=== PATIENT | female | born 1945 | race Caucasian/White ===

== ENCOUNTER 2020-05-13 06:45 | Day surgery (SDC) | payer OTHER, MEDICARE ==
[2020-05-08 13:48] LABS: Absolute Lymphocytes (CBC) 1.4 K/uL (0.7-4.9); Basophils % 0.9 % (0-1.3); Hematocrit 37.8 % (36.0-45.0); Lymphocytes % 17.8 % (15.3-44.8); MPV 8.7 fL (7.6-11.3); RBC Red Blood Cell Count 4.45 M/uL (3.86-4.86)
[2020-05-08 13:53] LABS: Protime INR 0.89
--- NOTE | 2020-05-08 13:54 | RAD REPORT ---
EXAM DESCRIPTION: RAD - Chest Pa And Lat (2 Views) - 05/08/2020 1:44 pm CLINICAL HISTORY: PRE OP Chest pain. COMPARISON: CHEST PA AND LAT 2 VIEW dated 08/02/2006 FINDINGS: The lungs are clear. The heart is upper limit of normal in size. No displaced fractures. IMPRESSION: No acute or concerning finding suspected.
--- NOTE | 2020-05-10 07:55 | EKG ---
Test Date: 2020-05-08 Test Time: 13:16:15 Cake Batter Mixer: KATELIN MEASUREMENT RESULTS: Intervals: Rate: 48 AR: 204 QRSD: 94 QT: 436 QTc: 389 [place]: P: 81 AR: 204 QRS: 41 T: 80 INTERPRETIVE STATEMENTS: Marked sinus bradycardia ST abnormality, possible digitalis effect Abnormal ECG Compared to ECG 12/15/2014 10:02:59 No significant changes Electronically Signed On 05-10-20 07:53:19 CLINICAL RESEARCH MANAGER by Stefan May
[2020-05-13] MEDS ORDERED: LIDOCAINE 1% 20 ML MDV ONE (07:05)
[2020-05-13] MEDS ORDERED: HEPA 1000U/500MLS 1,000 UNIT/500 ML BAG IV ONE (07:05)
[2020-05-13] MEDS ORDERED: NA CHLORIDE 0.9% 500 ML ONE (07:07)
[2020-05-13] MEDS ORDERED: ATROPINE SULF 1 MG/10 ML SYR IV ONE (07:43)
[2020-05-13] MEDS ORDERED: MIDAZOLAM HCL 2 MG/2 ML INJ ONE ×2 (07:43→07:59)
[2020-05-13] MEDS ORDERED: FENTANYL CITR 100 MCG/2 ML ONE (07:43)
[2020-05-13 08:50] VITALS: TEMP 97
[2020-05-13] MEDS ORDERED: ACETAMINOPHEN 325 MG TABLET ONE (09:26)
[2020-05-13 09:48] VITALS: O2SAT 100
[2020-05-13 10:42] VITALS: BP 144/62
--- NOTE | 2020-05-13 10:49 | OP ---
Surgeon: Stefan May MD Professor Of Languages: Mr. Galo. The patient will go home after 2 hours. I will make an appointment for her with [facility] in [place] at [facility] for an endarterectomy. She will have a film with her. Reason For Admission: Cerebrovascular disease with the plan to have bilateral selective carotid davin ogram. She had abnormal carotid Doppler. Description Of Procedure: The patient was brought to the tender labor today as an outpatient, prepped an d draped in the routine sterile fashion. Given Versed for sedation as well as fentanyl. While she w as being prepped, she developed substernal chest pressure radiating to the back with some shortness o f breath, so we decided to add left heart catheterization with selective coronary arteriogram to the procedure. A 6-Kiswahili sheath was introduced in the right common femoral artery successfully using the Seldinger technique and 10 cc of Xylocaine. A JR4 catheter was used to select the right common carotid artery first and then the left common carotid artery. Both common carotids were normal. Both external dickson tid artery were normal. She had a 90% stenosis in the right internal carotid artery. The left inter nal carotid artery was normal. Coronary angiography was done with a JR4 of the right coronary artery , which was normal. Following that, a JL4 catheter was introduced into the left main. Angiography t here was also normal. The patient tolerated the procedure well. There were no complications. Blood Loss: 5 cc. Final Diagnoses: Normal coronaries with chest pain and severe right internal carotid artery stenosis . Plan: For a right carotid endarterectomy. Angio-Seal was used to close the case. The patient will be at bedrest for 2 hours. Anesthesia: Total conscious sedation was 45 minutes. ALKA/NEDRAL Voice ID: [id number] Report ID: [id number]
== END 2020-05-13 10:15 | disposition home or self-care (01) ==
LOC: CCL 06:45
DX: I65.21 Occlusion and stenosis of right carotid artery (principal); R07.9 Chest pain, unspecified; Z20.822 Contact with and (suspected) exposure to COVID-19; I10 Essential (primary) hypertension; Z87.891 Personal history of nicotine dependence; E78.2 Mixed hyperlipidemia; I70.212 Atherosclerosis of native arteries of extremities with intermittent claudication, left leg; I49.3 Ventricular premature depolarization; K21.9 Gastro-esophageal reflux disease without esophagitis
CPT/HCPCS: 93005; 85025; 80048; 36415; 85610; 82947; 85730; 71046; 93454; 36222; U0002; C1893; J2250 ×2; J3010; J7040; J1644

== ENCOUNTER 2022-08-30 08:43 | Emergency (ER) | payer OTHER, MEDICARE ==
--- OUTSIDE RECORDS SUMMARY | 2022-08-30 08:55 | XMS REPORT | Continuity of Care Document ---
:1945 Author Organization [facility] t Address [address] [place] [address] Care Team Providers Name Role Phone Jose A García MD Primary Care Physician RASHI LAKHANI Attending Clinician Unavailable RITIKA ALAN Attending Clinician Unavailable Jose A García MD Attending Clinician JOSE A GARCÍA Attending Clinician Unavailable Doctor Unassigned, [place] Attending Clinician Unavailable LORY RUBIO Attending Clinician Unavailable Lory Rubio DO Attending Clinician FOG_Halamicek_Mar_NP Attending Clinician Unavailable JADEN DOW Attending Clinician Unavailable Yenny Smith Attending Clinician Unavailable Steffi Whittaker PA-C Attending Clinician Unknown, Attending Attending Clinician Unavailable STEFFI WHITTAKER Attending Clinician Unavailable Donna HEAD KILN OPERATOR, Mayra Attending Clinician Lab, Ang - Db Attending Clinician Unavailable Jaden Dow MD Attending Clinician Nurse, Louie Db Attending Clinician Unavailable Sylvie Correa MA Attending Clinician Unavailable Sharyn Nam MA Attending Clinician Unavailable NERY BONILLA Attending Clinician Unavailable Nery Wlash Attending Clinician Pob, Adc Lab Main Attending Clinician Unavailable Mckayla TINEO, Paris Allen Attending Clinician PARIS FRANCO Attending Clinician Unavailable Adriana TINEO, Yenny Attending Clinician YENNY WRIGHT Attending Clinician Unavailable Vaccine, Ang Db Cbc Fam Attending Clinician Unavailable Troy WASHINGTON, Suzi Attending Clinician Unavailable Zay LAY OUT WORKER, Nyasia Reed Attending Clinician Leatha TINEO, Talon Attending Clinician Camron TINEO, Colin Childers Attending Clinician Anum TINEO, Fatemeh Fernández Attending Clinician Only, Adc Test Attending Clinician Unavailable Javier Patiño MD Attending Clinician Juan Ashton Attending Clinician Unavailable Bj WASHINGTON, Alessandra Shepherd Attending Clinician Unavailable WOLFGANG POWELL Attending Clinician Unavailable Provider, [facility] Attending Clinician Unavailable Price SCHREIBERP, Adeline Kohler Attending Clinician Donny Velasquez DO Attending Clinician Eh WASHINGTON, Evette Attending Clinician Kar TINEO, Rashi Oliveira Attending Clinician [phone] Scooter TINEO, Kirby Attending Clinician Jony TINEO, Tigist Guevara Attending Clinician Nurse, Adc Fam Pob I Attending Clinician Unavailable Ariel SCHREIBERP, Wolfgang Attending Clinician Deepthi Chappell Attending Clinician DEEPTHI HARDY Attending Clinician Unavailable Bridgett WASHINGTON, Ciera Attending Clinician KIRBY NASH Attending Clinician Unavailable Gurjit Perez MD Attending Clinician Kirby Nash MD Attending Clinician RASHI LAKHANI Admitting Clinician Unavailable LORY RUBIO Admitting Clinician Unavailable JADEN DOW Admitting Clinician Unavailable FOG_[place]_Mar_NP Admitting Clinician Unavailable Yenny Smith Admitting Clinician Unavailable Talon Zhang MD Admitting Clinician JOSE A GARCÍA Admitting Clinician Unavailable Physician, No Primary or Family Admitting Clinician Unavaila ble KNOW, DOES_NOT Admitting Clinician Unavailable KIRBY NASH Admitting Clinician Unavailable Saad TINEO, Kirby Admitting Clinician Payers Payer Name Policy Type Policy Number Effective Date Expiration Source Date MEDICARE PART A \\T\\ B [id number] 2012 00:00:00 [facility] [id number] 2014 MEDICARE SUPPLEMENT 00:00:00 [place] [id number] 2012 [place] SOLUTIONS 00:00:00 [facility] [id number] 2021 OPTIONS (MEDICARE 00:00:00 SUPPLEMENT) [facility] - [id number] 2021 OPTIONS 00:00:00 MEDICAREMEDICARE A [id number] JOSE DANIEL wild [id number] 2012- 00:00:00 [facility] [id number] [address] SUPPLEMENT/INDIVIDUAL 00[facility]00:00 [id number] [facility] Condition Condition Condition Status Onset Resolution Last Treating Co mments Source Name Details Category Date Date Treatment Clinician Date Lumbar Lumbar Problem Active 2021-03 [facility] spondylosi Spondylosi 1-14 Or thope s s 00:00: dic 00 Sports Medicin e Lumbosacra Lumbosacra Problem Active A zalea l l 2-08 Orthope spondylosi Spondylosi 00:00: di c s without s without 00 Spor ts myelopathy Myelopathy Me dicin e Intestinal Intestinal Disease Active 2020-03 U nivers bleeding bleeding 0-21 ity of 00:00: [place] [facility] Lower GI Lower GI Disease Active 2020-03 Unive rs bleed bleed 0-20 ity of 00:00: [place] 00 Medical Branch Synovitis/ Synovitis/ Problem Active A alexander tenosynovi tenosynovi 7 Or thope tis - hip tis - Hip 00:00: dic 00 Sports Medicin e Carotid Carotid Disease Active [facility] artery artery 712 [place] occlusion occlusion [place] Chronic Chronic Disease Active [facility] kidney kidney 712 ity of disease disease 00:00: [place] (CKD), (CKD), 00 Medical stage II stage II Branch (mild) (mild) Osteoarthr Osteoarthr Disease Active U nivers osis osis 7-12 ity of 00:00: [place] [facility] Family Family Disease Active Univers history of history of 712 it y of osteoporos osteoporos [place] Knee joint Knee Joint Problem Active A alexander ankylosis Ankylosis 6-22 Orth ope 00:00: dic 00 Sports Medicin e Stenosis Stenosis Disease Active Unive rs of right of right 3-01 ity of carotid carotid 00:00: [place] artery artery 00 Medical Branch Carotid Carotid Disease Active [facility] 00 Center Degenerati Degenerati Problem Active Bozena munoz on of on of 1-11 Orthope lumbar Lumbar 00:00: dic interverte Interverte 00 Sp orts bral disc bral Disc Medi raghu e Psychosoci Psychosoci Problem Active 2019-03 A alexander al al 0-12 Orthope dysfunctio Dysfunctio 00:00: di c n due to n Due to 00 Sports chronic Chronic Medicin pain Pain e Diarrhea Diarrhea Disease Active Unive rs 3-09 ity of 00:00: [place] 00 Medical Branch Dehydratio Dehydratio Disease Active U nivers n n 3-09 ity of 00:00: [place] 00 Medical Branch History of History of Disease Active U nivers arterial arterial 3-09 ity of ischemic ischemic 00:00: [place] stroke stroke 00 Medical Branch CHERYL (acute CHERYL (acute Disease Active U nivers kidney kidney 3-09 ity of injury) injury) 00:00: [place] 00 Medical Branch Syncope Syncope Disease Active Univers 3-08 ity of 00:00: [place] 00 Medical Branch 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 9-24 Orthope 00:00: dic 00 Sports Medicin e Spinal Spinal Problem Active Pretty stenosis Stenosis 9-03 Orthop e of lumbar of Lumbar 00:00: dic region Region 00 Sports Medicin e Lumbar Lumbar Problem Active Pretty disc Disc 8-15 Orthope prolapse Prolapse 00:00: dic with with 00 Sports radiculopa Radiculopa Me dicin thy thy e 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 00:00: dic syndrome Syndrome 00 Sports Medicin e Knee joint Knee Joint Problem Active A zalea effusion Effusion 4-11 Orthop e 00:00: dic 00 Sports Medicin e Acute Acute Problem Active Pretty postoperat Postoperat 3-14 Or thope donaldo pain donaldo Pain 00:00: dic 00 Sports Medicin e Replacemen Replacemen Problem Active A zalea t of total t of Total 3-14 Or thope knee joint Knee Joint 00:00: di c 00 Sports Medicin e Patellofem Patellofem Problem Active A zalea oral oral 2-05 Orthope osteoarthr Osteoarthr 00:00: di c itis itis 00 Sports Medicin e Knee pain Knee Pain Problem Active 2017-03 Aza bonnie 2-12 Orthope 00:00: dic 00 Sports Medicin e Right knee Right knee Disease Active U nivers pain pain 8-17 ity of 00:00: [place] 00 Medical Branch Right knee Right knee Disease Active U nivers pain pain 8-17 ity of 00:00: [place] 00 Medical Branch Thumb Thumb Disease Active Univers pain, pain, 8-17 ity of right right 00:00: [place] 00 Medical Branch 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 2-25 it y of asthma asthma 00:00: [place] without without 00 Medical complicati complicati Br anch on on Essential Essential Disease Active 2014-03 Uni vers hypertensi hypertensi 0-08 it y of on on 00:00: [place] 00 Medical Branch Hyperlipid Hyperlipid Disease Active 2014-03 U nivers emia with emia with 0-08 ity of target LDL target LDL 00:00[place] less than less than 00 Medi melita 100 100 Branch Colitis Colitis Disease Active 2014-03 Univers 0-08 ity of 00:00: [place] 00 Medical Branch Plantar Plantar Problem Active Pretty nerve Nerve 8-14 Orthope lesion Lesion 00:00: dic 00 Sports Medicin e Keratoma Keratoma Problem Active Azale a 8-14 Orthope 00:00: dic 00 Sports Medicin e Procedure Procedure Problem Active 2010-03 Aza bonnie aiding Aiding 07 Orthope diagnosis Diagnosis 00:00: dic 00 Sports Medicin e Arthritis Arthritis Problem Active 2010-03 Aza bonnie of facet of Facet 04-02 Orthop e joint of Joint of 00:00: dic cervical Cervical 00 Sports spine Spine Medicin e Radiculiti Radiculiti Problem Active 2010-03 Bozena munoz s due to s Due to 07 Orthop e displaceme Displaceme 00:00: di c nt of nt of 00 Sports interverte Interverte Me dicin bral disc bral Disc e Myofascial Myofascial Problem Active 2010-03 Bozena munoz low back Low Back 1-07 Orthop e pain Pain 00:00: dic 00 Sports Medicin e Allergies, Adverse Reactions, Alerts Allergy Allergy Status Severity Reaction(s) Onset Inactive Treating Comm ents Source Name Type Date Date Clinician Penicill DA Active MO BREATHING 2021-03 [facility] ISSUES, 0- [place] TONGUE 00:00: [facility] SWELLING 00 [facility] Penicill DA Active MO BREATHING [facility] ISSUES, 2 [place] TONGUE 00:00: Orthope SWELLING 00 dic Hospita l Penicill DA Active MO BREATHING [facility] ins ISSUES, 04-20 [place] TONGUE 00:00: Orthope SWELLING 00 dic Hospita l Penicill DA Active MO BREATHING [facility] ins ISSUES, 8- [place] TONGUE 00:00: Orthope SWELLING 00 dic Hospita l Penicill DA Active MO BREATHING 2020- [facility] ins ISSUES, 1- [place] TONGUE 00:00: Orthope SWELLING 00 dic Hospita l Penicill DA Active MO BREATHING [facility] ins ISSUES, 07-31 [place] TONGUE 00:00: Orthope SWELLING 00 dic Hospita l Penicill DA Active MO BREATHING [facility] ins ISSUES, 07-30 [place] TONGUE 00:00: Orthope SWELLING 00 dic Hospita l Penicill DA Active MO SWELLING,NAMRATA 2018- HC [facility] ins H, [place] 0-09 [place] 00:[place] [facility] 00 dic [facility]ita [facility] Penicill DA Active MO 2019- [facility] ins 0-08 [place] 00:00: Orthope 00 dic Hospita l Penicill DA Active MO 2019-0 [facility] ins 9-03 [place] 00:00: Orthope 00 dic Hospita l Penicill DA Active MO 2019-0 [facility] ins 3-04 [place] 00:00: Orthope 00 dic Hospita l Penicill DA Active MO 2019-0 [facility] ins 2-12 [facility] [place] Penicill DA Active MO 2018-0 [facility] ins 9-13 [place] 00:00: Orthope 00 dic Hospita l Penicill DA Active MO 2018-0 [facility] ins 9-12 [place] 00:00: Orthope 00 dic Hospita l Penicill DA Active MO 2018-0 [facility] ins 4-20 [place] 00:00: Orthope 00 dic Hospita l codeine DA Active CT 2018-0 [facility] 4-20 [place] 00:00: Orthope 00 dic Hospita l PENICILL Drug Active High Swelling 2014-03 Univer s INS Class 0-08 ity of 00:00: [place] 00 Medical Branch Penicill Propensi Active Swelling 2014-03 Univ ers ins ty to 0-08 ity of adverse 00:00: [place] reaction 00 Medical s Branch Penicill Propensi Active Swelling 2014-03 Univ ers ins ty to 0-08 ity of adverse 00:00: [place] reaction 00 Medical s Branch Penicill Propensi Active Swelling 2014-03 Univ ers ins ty to 0-08 ity of adverse 00:00: [place] reaction 00 Medical s Branch Penicill Drug Active Swelling 2014-[address] [facility] PENICILL Allergy Active High Swelling 2014-03 [facility] Center PENICILL Allergy Active 2012-03 Pretty IN to 1-07 Orthope substanc 00:00: dic e 00 Sports Medicin e PENICILL Allergy Active 2012-03 Pretty INS to 0-15 Orthope substanc 00:00: dic e 00 Sports Medicin e Family History Family Member Diagnosis Comments Start Date Stop Date Source Natural father Heart disease [facility] Natural father Stroke [facility] Natural mother Cancer [facility] Natural mother Diabetes [facility] Natural sister Diabetes [facility] Natural sister Hypertension [facility] Social History Social Habit Start Date Stop Date Quantity Comments Source History SDOH [facility] Std [facility] Drinks History SDOH [facility] Alcohol Binge Medical [address] [facility] History SDOH [facility] Alcohol Comment Medical C enter Exposure to 2022-06-04 2022-06-14 [facility]00 [facility] (event) Branch Alcohol intake 2022-04-05 2022-04-05 Current [facility] 00:00:00 00:00:00 non-drinker of [facility] [place] [facility] alcohol (finding) Branch History SDOH 2020-05-19 2020-05-[address] [facility] Alcohol Frequency 00:00:00 00:00:00 [facility] Tobacco use and 2015-11-11 2015-11-11 Smokeless tobacco Un iversity of exposure 00:00:00 00:00:00 non-user [facility] [place] [facility] Sex [birth year] Universit y of 00:00:00 00:00:00 [facility] [place] [facility] Smoking Status Start Date Stop Date Source Never smoked tobacco [facility] Medications Ordered Filled Start Stop Current Ordering Indication Dosage Frequency Signature Comments Components Source Medication Medication Date Date Medication? Clinician (SIG) Name Name HYDROcodone 2022- No 1{tbl} 1 tablet, Univers -acetaminop 03-30 Oral, ity of hen (NORCO 20:45: 20:44 ONCE, 1 Julián as 5) 5-325 mg 00 :00 dose, On Medi melita tablet 1 Mon03/30/22 Branc h tablet at 1445, BLANCA acetaminoph Yes 4647 1{tbl} Take 1 Un marlen en-codeine 1-04 tablet by ity of (TYLENOL-CO 00:00: mouth [place] DEINE #3) 00 every 4 Medical 300-30 mg (four) Branch tablet hours as needed for Pain (scale 1-3). Indication s: acute pain acetaminoph 2023-0 Yes 4647 1{tbl} Take 1 Un marlen en-codeine 1-04 tablet by ity of (TYLENOL-CO 00:00: mouth [place] DEINE #3) 00 every 4 Medical 300-30 mg (four) Branch tablet hours as needed for Pain (scale 1-3). Indication s: acute pain acetaminoph 2023-0 Yes 4647 1{tbl} Take 1 Un marlen en-codeine 1-04 tablet by ity of (TYLENOL-CO 00:00: mouth [place] DEINE #3) 00 every 4 Medical 300-30 mg (four) Branch tablet hours as needed for Pain (scale 1-3). Indication s: acute pain acetaminoph 2023-0 Yes 4647 1{tbl} Take 1 Un marlen en-codeine 1-04 tablet by ity of (TYLENOL-CO 00:00: mouth [place] DEINE #3) 00 every 4 Medical 300-30 mg (four) Branch tablet hours as needed for Pain (scale 1-3). Indication s: acute pain acetaminoph 2023-0 Yes 4647 1{tbl} Take 1 Un marlen en-codeine 1-04 tablet by ity of (TYLENOL-CO 00:00: mouth [place] DEINE #3) 00 every 4 Medical 300-30 mg (four) Branch tablet hours as needed for Pain (scale 1-3). Indication s: acute pain acetaminoph 2023-0 Yes 4647 1{tbl} Take 1 Un marlen en-codeine 1-04 tablet by ity of (TYLENOL-CO 00:00: mouth [place] DEINE #3) 00 every 4 Medical 300-30 mg (four) Branch tablet hours as needed for Pain (scale 1-3). Indication s: acute pain acetaminoph 2023-0 Yes 4647 1{tbl} Take 1 Un marlen en-codeine 1-04 tablet by ity of (TYLENOL-CO 00:00: mouth [place] DEINE #3) 00 every 4 Medical 300-30 mg (four) Branch tablet hours as needed for Pain (scale 1-3). Indication s: acute pain acetaminoph 3-0 Yes 4647 1{tbl} Take 1 Un marlen en-codeine 1-04 tablet by ity of (TYLENOL-CO 00:00: mouth [place] DEINE #3) 00 every 4 Medical 300-30 mg (four) Branch tablet hours as needed for Pain (scale 1-3). Indication s: acute pain acetaminoph 3-0 Yes 4647 1{tbl} Take 1 Un marlen en-codeine 1-04 tablet by ity of (TYLENOL-CO 00:00: mouth [place] DEINE #3) 00 every 4 Medical 300-30 mg (four) Branch tablet hours as needed for Pain (scale 1-3). Indication s: acute pain cetirizine 2021-03 Yes [id number] 5mg Take 1 Univers 5 mg tablet 1-09 tablet by ity of 00:00: mouth in [place] the Medical morning. Branch cetirizine 2021-03 Yes [id number] 5mg Take 1 Univers 5 mg tablet 1-09 tablet by ity of 00:00: mouth in [place] the Medical morning. Branch cetirizine 2021-03 Yes [id number] 5mg Take 1 Univers 5 mg tablet 1-09 tablet by ity of 00:00: mouth in [place] the Medical morning. Branch cetirizine 2021-03 Yes [id number] 5mg Take 1 Univers 5 mg tablet 1-09 tablet by ity of 00:00: mouth in [place] the Medical morning. Branch cetirizine 2021-03 Yes [id number] 5mg Take 1 Univers 5 mg tablet 1-09 tablet by ity of 00:00: mouth in [place] the Medical morning. Branch cetirizine 2021-03 Yes [id number] 5mg Take 1 Univers 5 mg tablet 1-09 tablet by ity of 00:00: mouth in [place] the morning. Branch cetirizine 2021-03 Yes [id number] 5mg Take 1 Univers 5 mg tablet 1-09 tablet by ity of 00:00: mouth in [place] the Medical morning. Branch cetirizine 2021-03 Yes [id number] 5mg Take 1 Univers 5 mg tablet 1-09 tablet by ity of 00:00: mouth in [place] 00 the Medical morning. Branch cetirizine 2021-03 Yes [id number] 5mg Take 1 Univers 5 mg tablet 1-09 tablet by ity of 00:00: mouth in [place] 00 the Medical morning. Branch cetirizine 2021-03 Yes [id number] 5mg Take 1 Univers 5 mg tablet 1-09 tablet by ity of 00:00: mouth in [place] 00 the Medical morning. Branch cetirizine 2021-03 Yes [id number] 5mg Take 1 Univers 5 mg tablet 1-09 tablet by ity of 00:00: mouth in [place] 00 the Medical morning. [place] cetirizine 2021-03 Yes [id number] 5mg Take 1 Univers 5 mg tablet 1-09 tablet by ity of 00:00: mouth in [place] the Medical morning. [place] nystatin 2021-03- No [id number] Take 10 mL Univers 100,000 1-07 11-18 U by mouth 4 ity o f unit/mL 00:00: 05:59 (four) [place] suspension 00 :00 times Medical daily for Branch 10 days. Swish and swallow or swish and spit. nystatin 2021-03- No [id number] Take 10 mL Univers 100,000 1-07 11-18 U by mouth 4 ity o f unit/mL 00:00: 05:59 (four) [place] suspension 00 :00 times Medical daily for Branch 10 days. Swish and swallow or swish and spit. amLODIPine 2021-03 Yes [id number] 5mg Take 1 U nivers 5 mg tablet 0-21 tablet by ity of 00:00: mouth [place] 00 every Medical morning. Branch atorvastati 2021-03 Yes [id number] 20mg Take 1 Univers n 20 mg 0-21 tablet by ity of tablet 00:00: mouth in [place] 00 the Medical morning. Branch gabapentin 2021-03 Yes [id number] 300mg Take 1 Univers 300 mg 0-21 capsule by ity of capsule 00:00: mouth 4 [place] 00 (four) Medical times Branch daily. omeprazole 2021-03 Yes [id number] 40mg Take 1 Univers 40 mg 0-21 capsule by ity of capsule 00:00: mouth in [place] 00 the Medical morning. Branch metoprolol 2021-03 Yes [id number] 50mg Take 1 U nivers succinate 0-21 tablet by ity o f XL 50 mg 24 00:00: [place] hr tablet 00 the Medical morning. Branch lisinopriL- 2021-03 Yes [id number] 1{tbl} Take 1 Univers hydrochloro 0-21 tablet by ity of thiazide 00:00: mouth in [place] 20-12.5 mg 00 the Medical per tablet morning. Bran h amLODIPine 2021-03 Yes [id number] 5mg Take 1 U nivers 5 mg tablet 0-21 tablet by ity of 00:00: mouth [place] 00 every Medical morning. Branch atorvastati 2021-03 Yes [id number] 20mg Take 1 Univers n 20 mg 0-21 tablet by ity of tablet 00:00: mouth in [place] 00 the Medical morning. Branch gabapentin 2021-03 Yes [id number] 300mg Take 1 Univers 300 mg 0-21 capsule by ity of capsule 00:00: mouth 4 [place] [address] (four) Medical times Branch daily. omeprazole 2021-03 Yes [id number] 40mg Take 1 Univers 40 mg 0-21 capsule by ity of capsule 00:00: mouth in [place] 00 the Medical morning. Branch metoprolol 2021-03 Yes [id number] 50mg Take 1 U nivers succinate 0-21 tablet by ity o f XL 50 mg 24 00:00: [place] hr tablet 00 the Medical morning. Branch lisinopriL- 2021-03 Yes [id number] 1{tbl} Take 1 Univers hydrochloro 0-21 tablet by ity of thiazide 00:00: mouth in [place] 20-12.5 mg 00 the Medical per tablet morning. Bran h amLODIPine 2021-03 Yes [id number] 5mg Take 1 U nivers 5 mg tablet 0-21 tablet by ity of 00:00: mouth [place] 00 every Medical morning. Branch atorvastati 2021-03 Yes [id number] 20mg Take 1 Univers n 20 mg 0-21 tablet by ity of tablet 00:00: mouth in [place] 00 the Medical morning. Branch gabapentin 2021-03 Yes [id number] 300mg Take 1 Univers 300 mg 0-21 capsule by ity of capsule 00:00: mouth 4 [place] 00 (four) Medical times Branch daily. omeprazole 2021-03 Yes [id number] 40mg Take 1 Univers 40 mg 0-21 capsule by ity of capsule 00:00: mouth in [place] 00 the Medical morning. Branch metoprolol 2021-03 Yes [id number] 50mg Take 1 U nivers succinate 0-21 tablet by ity o f XL 50 mg 24 00:00: mouth [place] hr tablet 00 the Medical morning. Branch lisinopriL- 2021-03 Yes [id number] 1{tbl} Take 1 Univers hydrochloro 0-21 tablet by ity of thiazide 00:00: mouth in [place] 20-12.5 mg 00 the Medical per tablet morning. Branc h amLODIPine 2021-03 Yes [id number] 5mg Take 1 U nivers 5 mg tablet 0-21 tablet by ity of 00:00: mouth [place] 00 every Medical morning. Branch atorvastati 2021-03 Yes [id number] 20mg Take 1 Univers n 20 mg 0-21 tablet by ity of tablet 00:00: mouth in [place] 00 the Medical morning. Branch gabapentin 2021-03 Yes [id number] 300mg Take 1 Univers 300 mg 0-21 capsule by ity of capsule 00:00: mouth 4 [place] 00 (four) Medical times Branch daily. omeprazole 2021-03 Yes [id number] 40mg Take 1 Univers 40 mg 0-21 capsule by ity of capsule 00:00: mouth in [place] 00 the Medical morning. Branch metoprolol 2021-03 Yes [id number] 50mg Take 1 U nivers succinate 0-21 tablet by ity o f XL 50 mg 24 00:00: mouth [place] hr tablet 00 the Medical morning. Branch lisinopriL- 2021-03 Yes [id number] 1{tbl} Take 1 Univers hydrochloro 0-21 tablet by ity of thiazide 00:00: mouth in [place] 20-12.5 mg 00 the Medical per tablet morning. Branc h amLODIPine 2021-03 Yes [id number] 5mg Take 1 U nivers 5 mg tablet 0-21 tablet by ity of 00:00: mouth [place] 00 every Medical morning. Branch atorvastati 2021-03 Yes [id number] 20mg Take 1 Univers n 20 mg 0-21 tablet by ity of tablet 00:00: mouth in [place] 00 the Medical morning. Branch gabapentin 2021-03 Yes [id number] 300mg Take 1 Univers 300 mg 0-21 capsule by ity of capsule 00:00: mouth 4 [place] 00 (four) Medical times [place] daily. omeprazole 2021-03 Yes [id number] 40mg Take 1 Univers 40 mg 0-21 capsule by ity of capsule 00:00: mouth in [place] 00 the Medical morning. Branch metoprolol 2021-03 Yes [id number] 50mg Take 1 U nivers succinate 0-21 tablet by ity o f XL 50 mg 24 00:00: mouth [place] hr tablet 00 the Medical morning. Branch lisinopriL- 2021-03 Yes [id number] 1{tbl} Take 1 Univers hydrochloro 0-21 tablet by ity of thiazide 00:00: mouth in [place] 20-12.5 mg 00 the Medical per tablet morning. Branc h amLODIPine 2021-03 Yes [id number] 5mg Take 1 U nivers 5 mg tablet 0-21 tablet by ity of 00:00: mouth [place] 00 every Medical morning. Branch atorvastati 2021-03 Yes [id number] 20mg Take 1 Univers n 20 mg 0-21 tablet by ity of tablet 00:00: mouth in [place] 00 the Medical morning. Branch gabapentin 2021-03 Yes [id number] 300mg Take 1 Univers 300 mg 0-21 capsule by ity of capsule 00:00: mouth 4 [place] 00 (four) Medical times [place] daily. omeprazole 2021-03 Yes [id number] 40mg Take 1 Univers 40 mg 0-21 capsule by ity of capsule 00:00: mouth in [place] 00 the Medical morning. Branch metoprolol 2021-03 Yes [id number] 50mg Take 1 U nivers succinate 0-21 tablet by ity o f XL 50 mg 24 00:00: mouth [place] hr tablet 00 the Medical morning. Branch lisinopriL- 2021-03 Yes [id number] 1{tbl} Take 1 Univers hydrochloro 0-21 tablet by ity of thiazide 00:00: mouth in [place] 20-12.5 mg 00 the Medical per tablet morning. Branc h amLODIPine 2021-03 Yes [id number] 5mg Take 1 U nivers 5 mg tablet 0-21 tablet by ity of 00:00: mouth [place] 00 every Medical morning. Branch atorvastati 2021-03 Yes [id number] 20mg Take 1 Univers n 20 mg 0-21 tablet by ity of tablet 00:00: mouth in [place] 00 the Medical morning. Branch gabapentin 2021-03 Yes [id number] 300mg Take 1 [facility] 300 mg 0-21 capsule by ity of capsule 00:00: mouth 4 [place] 00 (four) Medical times [place] daily. omeprazole 2021-03 Yes [id number] 40mg Take 1 [facility] 40 mg 0-21 capsule by ity of capsule 00:00: mouth in [place] 00 the Medical morning. Branch metoprolol 2021-03 Yes [id number] 50mg Take 1 [facility] n[facility] succinate 0-21 tablet by ity o f XL 50 mg 24 00:00: mouth in [place] hr tablet 00 the Medical morning. Branch lisinopriL- 2021-03 Yes [id number] 1{tbl} Take 1 [facility] hydrochloro 0-21 tablet by ity of thiazide 00:00: mouth in [place] 20-12.5 mg 00 the Medical per tablet morning. Bran h amLODIPine 2021-03 Yes [id number] 5mg Take 1 U nivers 5 mg tablet 0-21 tablet by ity of 00:00: mouth [place] 00 every Medical morning. Branch atorvastati 2021-03 Yes [id number] 20mg Take 1 [facility] n 20 mg 0-21 tablet by ity of tablet 00:00: mouth in [place] 00 the Medical morning. Branch gabapentin 2021-03 Yes [id number] 300mg Take 1 [facility] 300 mg 0-21 capsule by ity of capsule 00:00: mouth 4 [place] 00 (four) Medical times [place] daily. omeprazole 2021-03 Yes [id number] 40mg Take 1 [facility] 40 mg 0-21 capsule by ity of capsule 00:00: mouth in [place] 00 the Medical morning. Branch metoprolol 2021-03 Yes [id number] 50mg Take 1 U nivers succinate 0-21 tablet by ity o f XL 50 mg 24 00:00: mouth in [place] hr tablet 00 the Medical morning. Branch lisinopriL- 2021-03 Yes [id number] 1{tbl} Take 1 [facility] hydrochloro 0-21 tablet by ity of thiazide 00:00: mouth in [place] 20-12.5 mg 00 the Medical per tablet morning. Branc h amLODIPine 2021-03 Yes [id number] 5mg Take 1 U nivers 5 mg tablet 0-21 tablet by ity of 00:00: mouth [place] 00 every Medical morning. Branch atorvastati 2021-03 Yes [id number] 20mg Take 1 [facility] n 20 mg 0-21 tablet by ity of tablet 00:00: mouth in [place] 00 the Medical morning. Branch gabapentin 2021-03 Yes [id number] 300mg Take 1 [facility] 300 mg 0-21 capsule by ity of capsule 00:00: mouth 4 [place] 00 (four) Medical times [place] daily. omeprazole 2021-03 Yes [id number] 40mg Take 1 [facility] 40 mg 0-21 capsule by ity of capsule 00:00: mouth in [place] 00 the Medical morning. Branch metoprolol 2021-03 Yes [id number] 50mg Take 1 U nivers succinate 0-21 tablet by ity o f XL 50 mg 24 00:00: mouth in [place] hr tablet 00 the Medical morning. Branch lisinopriL- 2021-03 Yes [id number] 1{tbl} Take 1 [facility] hydrochloro 0-21 tablet by ity of thiazide 00:00: mouth in [place] 20-12.5 mg 00 the Medical per tablet morning. [facility] h amLODIPine 2021-03 Yes [id number] 5mg Take 1 U nivers 5 mg tablet 0-21 tablet by ity of 00:00: mouth [place] 00 every Medical morning. Branch atorvastati 2021-03 Yes [id number] 20mg Take 1 [facility] n 20 mg 0-21 tablet by ity of tablet 00:00: mouth in [place] 00 the Medical morning. Branch gabapentin 2021-03 Yes [id number] 300mg Take 1 [facility] 300 mg 0-21 capsule by ity of capsule 00:00: mouth 4 [place] 00 (four) Medical times [place] daily. omeprazole 2021-03 Yes [id number] 40mg Take 1 [facility] 40 mg 0-21 capsule by ity of capsule 00:00: mouth in [place] 00 the Medical morning. Branch metoprolol 2021-03 Yes [id number] 50mg Take 1 U nivers succinate 0-21 tablet by ity o f XL 50 mg 24 00:00: mouth in [place] hr tablet 00 the Medical morning. Branch lisinopriL- 2021-03 Yes [id number] 1{tbl} Take 1 [facility] hydrochloro 0-21 tablet by ity of thiazide 00:00: mouth in [place] 20-12.5 mg 00 the Medical per tablet morning. Bran h amLODIPine 2021-03 Yes [id number] 5mg Take 1 U nivers 5 mg tablet 0-21 tablet by ity of 00:00: mouth [place] 00 every Medical morning. Branch atorvastati 2021-03 Yes [id number] 20mg Take 1 [facility] n 20 mg 0-21 tablet by ity of tablet 00:00: mouth in [place] 00 the Medical morning. Branch gabapentin 2021-03 Yes [id number] 300mg Take 1 [facility] 300 mg 0-21 capsule by ity of capsule 00:00: mouth 4 [place] 00 (four) Medical times [place] daily. omeprazole 2021-03 Yes [id number] 40mg Take 1 [facility] 40 mg 0-21 capsule by ity of capsule 00:00: mouth in [place] 00 the Medical morning. Branch metoprolol 2021-03 Yes [id number] 50mg Take 1 U nivers succinate 0-21 tablet by ity o f XL 50 mg 24 00:00: mouth [place] hr tablet 00 the Medical morning. Branch lisinopriL- 2021-03 Yes [id number] 1{tbl} Take 1 [facility] hydrochloro 0-21 tablet by ity of thiazide 00:00: mouth in [place] 20-12.5 mg 00 the Medical per tablet morning. [facility] h amLODIPine 2021-03 Yes [id number] 5mg Take 1 U nivers 5 mg tablet 0-21 tablet by ity of 00:00: mouth [place] 00 every Medical morning. Branch atorvastati 2021-03 Yes [id number] 20mg Take 1 [facility] n 20 mg 0-21 tablet by ity of tablet 00:00: mouth in [place] 00 the Medical morning. Branch gabapentin 2021-03 Yes [id number] 300mg Take 1 [facility] 300 mg 0-21 capsule by ity of capsule 00:00: mouth 4 [place] 00 (four) Medical times [place] daily. omeprazole 2021-03 Yes [id number] 40mg Take 1 [facility] 40 mg 0-21 capsule by ity of capsule 00:00: mouth in [place] 00 the Medical morning. Branch metoprolol 2021-03 Yes [id number] 50mg Take 1 U nivers succinate 0-21 tablet by ity o f XL 50 mg 24 00:00: mouth in [place] hr tablet 00 the Medical morning. Branch lisinopriL- 2021-03 Yes [id number] 1{tbl} Take 1 [facility] hydrochloro 0-21 tablet by ity of thiazide 00:00: mouth in [place] 20-12.5 mg 00 the Medical per tablet morning. Bran h amLODIPine 2021-03 Yes [id number] 5mg Take 1 U nivers 5 mg tablet 0-21 tablet by ity of 00:00: mouth [place] 00 every Medical morning. Branch atorvastati 2021-03 Yes [id number] 20mg Take 1 [facility] n 20 mg 0-21 tablet by ity of tablet 00:00: mouth in [place] 00 the Medical morning. Branch gabapentin 2021-03 Yes [id number] 300mg Take 1 [facility] 300 mg 0-21 capsule by ity of capsule 00:00: mouth 4 [place] [address] (four) Medical times Branch daily. omeprazole 2021-03 Yes [id number] 40mg Take 1 [facility] 40 mg 0-21 capsule by ity of capsule 00:00: mouth in [place] 00 the Medical morning. Branch metoprolol 2021-03 Yes [id number] 50mg Take 1 U nivers succinate 0-21 tablet by ity o f XL 50 mg 24 00:00: mouth in [place] hr tablet 00 the Medical morning. Branch lisinopriL- 2021-03 Yes [id number] 1{tbl} Take 1 [facility] hydrochloro 0-21 tablet by ity of thiazide 00:00: mouth in [place] 20-12.5 mg 00 the Medical per tablet morning. Bran h amLODIPine 2021-03 Yes [id number] 5mg Take 1 U nivers 5 mg tablet 0-21 tablet by ity of 00:00: mouth [place] 00 every Medical morning. Branch atorvastati 2021-03 Yes [id number] 20mg Take 1 [facility] n 20 mg 0-21 tablet by ity of tablet 00:00: mouth in [place] 00 the Medical morning. Branch gabapentin 2021-03 Yes [id number] 300mg Take 1 [facility] 300 mg 0-21 capsule by ity of capsule 00:00: mouth 4 [place] 00 (four) Medical times Branch daily. omeprazole 2021-03 Yes [id number] 40mg Take 1 [facility] 40 mg 0-21 capsule by ity of capsule 00:00: mouth in [place] 00 the Medical morning. Branch metoprolol 2021-03 Yes [id number] 50mg Take 1 U nivers succinate 0-21 tablet by ity o f XL 50 mg 24 00:00: mouth in [place] hr tablet 00 the Medical morning. Branch lisinopriL- 2021-03 Yes [id number] 1{tbl} Take 1 [facility] hydrochloro 0-21 tablet by ity of thiazide 00:00: mouth in [place] 20-12.5 mg 00 the Medical per tablet morning. [facility] h amLODIPine 2021-03 Yes [id number] 5mg Take 1 U nivers 5 mg tablet 0-21 tablet by ity of 00:00: mouth [place] 00 every Medical morning. Branch atorvastati 2021-03 Yes [id number] 20mg Take 1 [facility] n 20 mg 0-21 tablet by ity of tablet 00:00: mouth in [place] 00 the Medical morning. Branch gabapentin 2021-03 Yes [id number] 300mg Take 1 [facility] 300 mg 0-21 capsule by ity of capsule 00:00: mouth 4 [place] 00 (four) Medical times Branch daily. omeprazole 2021-03 Yes [id number] 40mg Take 1 [facility] 40 mg 0-21 capsule by ity of capsule 00:00: mouth in [place] 00 the Medical morning. Branch metoprolol 2021-03 Yes [id number] 50mg Take 1 U nivers succinate 0-21 tablet by ity o f XL 50 mg 24 00:00: mouth in [place] hr tablet 00 the Medical morning. Branch lisinopriL- 2021-03 Yes [id number] 1{tbl} Take 1 [facility] hydrochloro 0-21 tablet by ity of thiazide 00:00: mouth in [place] 20-12.5 mg 00 the Medical per tablet morning. [facility] h omeprazole 2021-03 Yes [id number] 40mg Take 1 [facility] 40 mg 0-19 capsule by ity of capsule 00:00: mouth in [place] 00 the Medical morning. Branch metoprolol 2021-03 Yes [id number] 50mg Take 1 U nivers succinate 0-19 tablet by ity o f XL 50 mg 24 00:00: mouth in [place] hr tablet 00 the Medical morning. Branch lisinopriL- 2021-03 Yes [id number] 1{tbl} Take 1 [facility] hydrochloro 0-19 tablet by ity of thiazide 00:00: mouth in [place] 20-12.5 mg 00 the Medical per tablet morning. Bran h gabapentin 2021-03 Yes [id number] 300mg Take 1 [facility] 300 mg 0-19 capsule by ity of capsule 00:00: mouth 4 [place] [address] (four) Medical times [place] daily. atorvastati 2021-03 Yes [id number] 20mg Take 1 [facility] n 20 mg 0-19 tablet by ity of tablet 00:00: mouth in [place] 00 the Medical morning. Branch amLODIPine 2021-03 Yes [id number] 5mg Take 1 U nivers 5 mg tablet 0-19 tablet by ity of 00:00: mouth [place] 00 every Medical morning. Branch omeprazole 2021-03 Yes [id number] 40mg Take 1 [facility] 40 mg 0-19 capsule by ity of capsule 00:00: mouth in [place] 00 the Medical morning. Branch metoprolol 2021-03 Yes [id number] 50mg Take 1 U nivers succinate 0-19 tablet by ity o f XL 50 mg 24 00:00: mouth in [place] hr tablet 00 the Medical morning. Branch lisinopriL- 2021-03 Yes [id number] 1{tbl} Take 1 [facility] hydrochloro 0-19 tablet by ity of thiazide 00:00: mouth in [place] 20-12.5 mg 00 the Medical per tablet morning. [facility] gabapentin 2021-03 Yes [id number] 300mg Take 1 [facility] 300 mg 0-19 capsule by ity of capsule 00:00: mouth 4 [place] [address] (four) Medical times [place] daily. atorvastati 2021-03 Yes [id number] 20mg Take 1 [facility] n 20 mg 0-19 tablet by ity of tablet 00:00: mouth in [place] 00 the Medical morning. Branch amLODIPine 2021-03 Yes [id number] 5mg Take 1 U nivers 5 mg tablet 0-19 tablet by ity of 00:00: mouth [place] 00 every Medical morning. Branch omeprazole 2021-03 Yes [id number] 40mg Take 1 [facility] 40 mg 0-19 capsule by ity of capsule 00:00: mouth in [place] 00 the Medical morning. Branch metoprolol 2021-03 Yes [id number] 50mg Take 1 U nivers succinate 0-19 tablet by ity o f XL 50 mg 24 00:00: mouth in [place] hr tablet 00 the Medical morning. Branch lisinopriL- 2021-03 Yes [id number] 1{tbl} Take 1 [facility] hydrochloro 0-19 tablet by ity of thiazide 00:00: mouth in [place] 20-12.5 mg 00 the Medical per tablet morning. Bran h gabapentin 2021-03 Yes [id number] 300mg Take 1 [facility] 300 mg 0-19 capsule by ity of capsule 00:00: mouth 4 [place] 00 (four) Medical times Branch daily. atorvastati 2021-03 Yes [id number] 20mg Take 1 [facility] n 20 mg 0-19 tablet by ity of tablet 00:00: mouth in [place] 00 the Medical morning. Branch amLODIPine 2021-03 Yes [id number] 5mg Take 1 U nivers 5 mg tablet 0-19 tablet by ity of 00:00: mouth [place] 00 every Medical morning. Branch omeprazole 2021-03- No [id number] 40mg Take 1 [facility] 40 mg 0-19 10-21 capsule by ity of capsule 00:00: 00:00 mouth in [place] 00 :00 the Medical morning. Branch metoprolol 2021-03- No [id number] 50mg Take 1 [facility] succinate 0-19 10-21 tablet by ity of XL 50 mg 24 00:00: 00:00 mouth in [place] hr tablet 00 :00 the Medical morning. Branch lisinopriL- 2021-03- No [id number] 1{tbl} Take 1 [facility] hydrochloro 0-19 10-21 tablet by it y of thiazide 00:00: 00:[facility] :00 the Medical per tablet morning. Bran h gabapentin 2021-03- No [id number] 300mg Take 1 [facility] 300 mg 0-19 10-21 capsule by ity of capsule 00:00: 00:00 mouth 4 [place] 00 :00 (four) Medical times [place] daily. atorvastati 2021-03- No [id number] 20mg Take 1 [facility] n 20 mg 0-19 10-21 tablet by ity of tablet 00:00: 00:00 mouth in [place] 00 :00 the Medical morning. Branch amLODIPine 2021-03- No [id number] 5mg Take 1 [facility] 5 mg tablet 0-19 10-21 tablet by it y of 00:00: 00:00 mouth [place] 00 :00 every Medical morning. Branch conjugated 2022-0 Yes [id number] 1g Insert 1 g [facility] estrogens 9-22 into ity of (PREMARIN) 00:00: vagina 2 [place] 0.[place] 00 (two) Medical mg/gram times per Branch vaginal week. cream conjugated 2022-0 Yes [id number] 1g Insert 1 g [facility] estrogens 9-22 into ity of (PREMARIN) 00:00: vagina 2 [place] 00 (two) Medical mg/gram times per Branch vaginal week. cream conjugated 2022-0 Yes [id number] 1g Insert 1 g [facility] estrogens 9-22 into ity of (PREMARIN) 00:00: vagina 2 [place] 00 (two) Medical mg/gram times per Branch vaginal week. cream conjugated 2022-0 Yes [id number] 1g Insert 1 g [facility] estrogens 9-22 into ity of (PREMARIN) 00:00: vagina 2 [place] 00 (two) Medical mg/gram times per Branch vaginal week. cream conjugated 2022-0 Yes [id number] 1g Insert 1 g [facility] estrogens 9-22 into ity of (PREMARIN) 00:00: vagina 2 [place] 00 (two) Medical mg/gram times per Branch vaginal week. cream conjugated 2-0 Yes [id number] 1g Insert 1 g [facility] estrogens 9-22 into ity of (PREMARIN) 00:00: vagina 2 [place] 00 (two) Medical mg/gram times per Branch vaginal week. cream conjugated 2022-0 Yes [id number] 1g Insert 1 g [facility] estrogens 9-22 into ity of (PREMARIN) 00:00: vagina 2 [place] 00 (two) Medical mg/gram times per Branch vaginal week. cream conjugated 2022-0 Yes [id number] 1g Insert 1 g [facility] estrogens 9-22 into ity of (PREMARIN) 00:00: vagina 2 [place] 00 (two) Medical mg/gram times per Branch vaginal week. cream conjugated 2022-0 Yes [id number] 1g Insert 1 g [facility] estrogens 9-22 into ity of (PREMARIN) 00:00: vagina 2 [place] 00 (two) Medical mg/gram times per Branch vaginal week. cream conjugated 2022-0 Yes [id number] 1g Insert 1 g [facility] estrogens 9-22 into ity of (PREMARIN) 00:00: vagina 2 [place] 00 (two) Medical mg/gram times per Branch vaginal week. cream conjugated 2022-0 Yes [id number] 1g Insert 1 g [facility] estrogens 9-22 into ity of (PREMARIN) 00:00: vagina 2 [place] 00 (two) Medical mg/gram times per Branch vaginal week. cream conjugated 2022-0 Yes [id number] 1g Insert 1 g [facility] estrogens 9-22 into ity of (PREMARIN) 00:00: vagina 2 [place] 00 (two) Medical mg/gram times per Branch vaginal week. cream conjugated 2022-0 Yes [id number] 1g Insert 1 g [facility] estrogens 9-22 into ity of (PREMARIN) 00:00: vagina 2 [place] 00 (two) Medical mg/gram times per Branch vaginal week. cream conjugated 2022-0 Yes [id number] 1g Insert 1 g [facility] estrogens 9-22 into ity of (PREMARIN) 00:00: vagina 2 [place] 00 (two) Medical mg/gram times per Branch vaginal week. cream conjugated 2022-0 Yes [id number] 1g Insert 1 g [facility] estrogens 9-22 into ity of (PREMARIN) 00:00: vagina 2 [place] 00 (two) Medical mg/gram times per Branch vaginal week. cream conjugated 2022-0 Yes [id number] 1g Insert 1 g [facility] estrogens 9-22 into ity of (PREMARIN) 00:00: vagina 2 [place] 00 (two) Medical mg/gram times per Branch vaginal week. cream conjugated 2022-0 Yes [id number] 1g Insert 1 g [facility] estrogens 9-22 into ity of (PREMARIN) 00:00: vagina 2 [place] 00 (two) Medical mg/gram times per Branch vaginal week. cream conjugated 2022-0 Yes [id number] 1g Insert 1 g [facility] estrogens 9-22 into ity of (PREMARIN) 00:00: vagina 2 [place] 00 (two) Medical mg/gram times per Branch vaginal week. cream conjugated 2022-0 Yes [id number] 1g Insert 1 g [facility] estrogens 9-22 into ity of (PREMARIN) 00:00: vagina 2 [place] 00 (two) Medical mg/gram times per Branch vaginal week. cream conjugated 2021-0 Yes [id number] 1g Insert 1 g [facility] estrogens 9-22 into ity of (PREMARIN) 00:00: vagina 2 [place] 0.[place] 00 (two) Medical mg/gram times per Branch vaginal week. cream conjugated 2021-0 Yes [id number] 1g Insert 1 g [facility] estrogens 9-22 into ity of (PREMARIN) 00:00: vagina 2 [place] 0.[place] 00 (two) Medical mg/gram times per Branch vaginal week. cream aspirin 81 0 Yes 81mg Take 81 mg U nivers mg chewable 9-20 by mouth ity of tablet 14:25: daily. [address] CALCIUM Yes Take by Univers ORAL 9-20 mouth. ity of 14:25: [address] calcium Yes Take by Univers carbonate/v 9-20 mouth. ity of itamin D3 14:25: [place] (VITAMIN 59 Medical D-3 ORAL) [place] melatonin Yes Take by Unive rs 10 mg Tab 9-20 mouth. ity of 14:25: [address] aspirin 81 Yes 81mg Take 81 mg U nivers mg chewable 9-20 by mouth ity of tablet 14:25: daily. [address] CALCIUM Yes Take by Univers ORAL 9-20 mouth. ity of 14:25: [address] calcium 0 Yes Take by [facility] carbonate/v 9-20 mouth. ity of itamin D3 14:25: [place] (VITAMIN 59 Medical D-3 ORAL) [place] melatonin 0 Yes Take by Unive rs 10 mg Tab 9-20 mouth. ity of 14:25: [address] aspirin 81 0 Yes 81mg Take 81 mg U nivers mg chewable 9-20 by mouth ity of tablet 14:25: daily. [address] CALCIUM 0 Yes Take by [facility] ORAL 9-20 mouth. ity of 14:25: [address] calcium 0 Yes Take by [facility] carbonate/v 9-20 mouth. ity of itamin D3 14:25: [place] (VITAMIN 59 Medical D-3 ORAL) [place] melatonin Yes Take by Unive rs 10 mg Tab 9-20 mouth. ity of 14:25: [place] [address] Medical Branch aspirin 81 Yes 81mg Take 81 mg U nivers mg chewable 9-20 by mouth ity of tablet 14:25: daily. [place] 59 Medical Branch CALCIUM Yes Take by Univers ORAL 9-20 mouth. ity of 14:25: [place] [address] Medical Branch calcium Yes Take by [facility] carbonate/v 9-20 mouth. ity of itamin D3 14:25: [place] (VITAMIN 59 Medical D-3 ORAL) Branch melatonin Yes Take by Unive rs 10 mg Tab 9-20 mouth. ity of 14:25: [place] [address] Medical Branch aspirin 81 Yes 81mg Take 81 mg U nivers mg chewable 9-20 by mouth ity of tablet 14:25: daily. [place] [address] Medical Branch CALCIUM Yes Take by [facility] ORAL 9-20 mouth. ity of 14:25: [place] [address] Medical Branch calcium Yes Take by [facility] carbonate/v 9-20 mouth. ity of itamin D3 14:25: [place] (VITAMIN 59 Medical D-3 ORAL) Branch melatonin Yes Take by Unive rs 10 mg Tab 9-20 mouth. ity of 14:25: [place] [address] Medical Branch aspirin 81 Yes 81mg Take 81 mg U nivers mg chewable 9-20 by mouth ity of tablet 14:25: daily. [place] [address] Medical Branch CALCIUM Yes Take by [facility] ORAL 9-20 mouth. ity of 14:25: [place] [address] Medical Branch calcium Yes Take by [facility] carbonate/v 9-20 mouth. ity of itamin D3 14:25: [place] (VITAMIN 59 Medical D-3 ORAL) Branch melatonin Yes Take by Unive rs 10 mg Tab 9-20 mouth. ity of 14:25: [place] [address] Medical Branch aspirin 81 Yes 81mg Take 81 mg U nivers mg chewable 9-20 by mouth ity of tablet 14:25: daily. [place] [address] Medical Branch CALCIUM Yes Take by Univers ORAL 9-20 mouth. ity of 14:25: [place] [address] Medical Branch calcium Yes Take by [facility] carbonate/v 9-20 mouth. ity of itamin D3 14:25: [place] (VITAMIN 59 Medical D-3 ORAL) Branch melatonin Yes Take by Unive rs 10 mg Tab 9-20 mouth. ity of 14:25: [place] [address] Medical Branch aspirin 81 Yes 81mg Take 81 mg U nivers mg chewable 9-20 by mouth ity of tablet 14:25: daily. [place] [address] Medical Branch CALCIUM Yes Take by [facility] ORAL 9-20 mouth. ity of 14:25: [place] [address] Medical Branch calcium Yes Take by [facility] carbonate/v 9-20 mouth. ity of itamin D3 14:25: [place] (VITAMIN 59 Medical D-3 ORAL) Branch melatonin Yes Take by Unive rs 10 mg Tab 9-20 mouth. ity of 14:25: [place] [address] Medical Branch aspirin 81 Yes 81mg Take 81 mg U nivers mg chewable 9-20 by mouth ity of tablet 14:25: daily. [place] [address] Medical Branch CALCIUM Yes Take by Univers ORAL 9-20 mouth. ity of 14:25: [place] [address] Medical Branch calcium Yes Take by [facility] carbonate/v 9-20 mouth. ity of itamin D3 14:25: [place] (VITAMIN 59 Medical D-3 ORAL) Branch melatonin Yes Take by Unive rs 10 mg Tab 9-20 mouth. ity of 14:25: [address] Branch aspirin 81 Yes 81mg Take 81 mg U nivers mg chewable 9-20 by mouth ity of tablet 14:25: daily. [place] [address] Medical Branch CALCIUM Yes Take by Univers ORAL 9-20 mouth. ity of 14:25: [place] [address] Medical Branch calcium Yes Take by [facility] carbonate/v 9-20 mouth. ity of itamin D3 14:25: [place] (VITAMIN 59 Medical D-3 ORAL) Branch melatonin Yes Take by Unive rs 10 mg Tab 9-20 mouth. ity of 14:25: [place] [address] Medical Branch aspirin 81 Yes 81mg Take 81 mg U nivers mg chewable 9-20 by mouth ity of tablet 14:25: daily. [place] [address] Medical Branch CALCIUM Yes Take by [facility] ORAL 9-20 mouth. ity of 14:25: [place] 59 Medical Branch calcium Yes Take by [facility] carbonate/v 9-20 mouth. ity of itamin D3 14:25: [place] (VITAMIN 59 Medical D-3 ORAL) Branch melatonin 0 Yes Take by Unive rs 10 mg Tab 9-20 mouth. ity of 14:25: [place] [address] Medical Branch aspirin 81 Yes 81mg Take 81 mg U nivers mg chewable 9-20 by mouth ity of tablet 14:25: daily. [place] 59 Medical Branch CALCIUM Yes Take by Univers ORAL 9-20 mouth. ity of 14:25: [place] [address] Medical Branch calcium Yes Take by [facility] carbonate/v 9-20 mouth. ity of itamin D3 14:25: [place] (VITAMIN 59 Medical D-3 ORAL) Branch melatonin Yes Take by Unive rs 10 mg Tab 9-20 mouth. ity of 14:25: [place] [address] Medical Branch aspirin 81 Yes 81mg Take 81 mg U nivers mg chewable 9-20 by mouth ity of tablet 14:25: daily. [place] [address] Medical Branch CALCIUM Yes Take by Univers ORAL 9-20 mouth. ity of 14:25: [place] [address] Medical Branch calcium Yes Take by [facility] carbonate/v 9-20 mouth. ity of itamin D3 14:25: [place] (VITAMIN 59 Medical D-3 ORAL) Branch melatonin Yes Take by Unive rs 10 mg Tab 9-20 mouth. ity of 14:25: [place] [address] Medical Branch aspirin 81 Yes 81mg Take 81 mg U nivers mg chewable 9-20 by mouth ity of tablet 14:25: daily. [place] [address] Medical Branch CALCIUM Yes Take by Univers ORAL 9-20 mouth. ity of 14:25: [place] [address] Medical Branch calcium 0 Yes Take by [facility] carbonate/v 9-20 mouth. ity of itamin D3 14:25: [place] (VITAMIN 59 Medical D-3 ORAL) Branch melatonin Yes Take by Unive rs 10 mg Tab 9-20 mouth. ity of 14:25: [place] [address] Medical Branch aspirin 81 0 Yes 81mg Take 81 mg U nivers mg chewable 9-20 by mouth ity of tablet 14:25: daily. [place] [address] Medical Branch CALCIUM Yes Take by Univers ORAL 9-20 mouth. ity of 14:25: [place] [address] Medical Branch calcium Yes Take by [facility] carbonate/v 9-20 mouth. ity of itamin D3 14:25: [place] (VITAMIN 59 Medical D-3 ORAL) Branch melatonin Yes Take by Unive rs 10 mg Tab 9-20 mouth. ity of 14:25: [place] [address] Medical Branch aspirin 81 Yes 81mg Take 81 mg U nivers mg chewable 9-20 by mouth ity of tablet 14:25: daily. [place] [address] Medical Branch CALCIUM Yes Take by Univers ORAL 9-20 mouth. ity of 14:25: [place] [address] Medical Branch calcium Yes Take by [facility] carbonate/v 9-20 mouth. ity of itamin D3 14:25: [place] (VITAMIN 59 Medical D-3 ORAL) Branch melatonin Yes Take by Unive rs 10 mg Tab 9-20 mouth. ity of 14:25: [address] Branch aspirin 81 Yes 81mg Take 81 mg U nivers mg chewable 9-20 by mouth ity of tablet 14:25: daily. [place] [address] Medical Branch CALCIUM Yes Take by Univer s ORAL 9-20 mouth. ity of 14:25: [place] [address] Medical Branch calcium Yes Take by [facility] carbonate/v 9-20 mouth. ity of itamin D3 14:25: [place] (VITAMIN 59 Medical D-3 ORAL) Branch melatonin Yes Take by Unive rs 10 mg Tab 9-20 mouth. ity of 14:25: [address] Branch aspirin 81 Yes 81mg Take 81 mg U nivers mg chewable 9-20 by mouth ity of tablet 14:25: daily. [place] [address] Medical Branch CALCIUM Yes Take by Univers ORAL 9-20 mouth. ity of 14:25: [place] [address] Medical Branch calcium Yes Take by [facility] carbonate/v 9-20 mouth. ity of itamin D3 14:25: [place] (VITAMIN 59 Medical D-3 ORAL) Branch melatonin Yes Take by Un[facility] rs 10 mg Tab 9-20 mouth. ity of 14:25: [place] [address] Medical Branch aspirin 81 Yes 81mg Take 81 mg U nivers mg chewable 9-20 by mouth ity of tablet 14:25: daily. [place] [address] Medical [place] CALCIUM Yes Take by [facility] ORAL 9-20 mouth. ity of 14:25: [place] [address] Medical [place] calcium Yes Take by Univers carbonate/v 9-20 mouth. ity of itamin D3 14:25: [place] (VITAMIN 59 Medical D-3 ORAL) Branch melatonin Yes Take by [facility] rs 10 mg Tab 9-20 mouth. ity of 14:25: [address] aspirin 81 0 Yes 81mg Take 81 mg U nivers mg chewable 9-20 by mouth ity of tablet 14:25: daily. [address] CALCIUM Yes Take by Univers ORAL 9-20 mouth. ity of 14:25: [address] calcium Yes Take by Univers carbonate/v 9-20 mouth. ity of itamin D3 14:25: [place] (VITAMIN 59 Medical D-3 ORAL) [place] melatonin Yes Take by [facility] rs 10 mg Tab 9-20 mouth. ity of 14:25: [address] aspirin 81 Yes 81mg Take 81 mg U nivers mg chewable 9-20 by mouth ity of tablet 14:25: daily. [address] CALCIUM Yes Take by Univers ORAL 9-20 mouth. ity of 14:25: [address] calcium Yes Take by [facility] carbonate/v 9-20 mouth. ity of itamin D3 14:25: [place] (VITAMIN 59 Medical D-3 ORAL) [place] melatonin Yes Take by [facility] rs 10 mg Tab 9-20 mouth. ity of 14:25: [address] Diflupredna Yes INSTILL Uni vers te 0.05 % 8-31 ONE (1) ity of 00:00: DROP(S) IN [place] [address] EACH EYE Medical EVERY 2 Branch HOURS FOR 3 DAYS, THEN INSTILL ONE (1) DROP FOUR TIMES A DAY. Diflupredna 0 Yes INSTILL Uni vers te 0.05 % 8-31 ONE (1) ity of 00:00: DROP(S) IN [place] 00 EACH EYE Medical EVERY 2 Branch HOURS FOR 3 DAYS, THEN INSTILL ONE (1) DROP FOUR TIMES A DAY. Diflupredna Yes INSTILL Uni vers te 0.05 % 8-31 ONE (1) ity of 00:00: DROP(S) IN [place] EACH EYE Medical EVERY 2 Branch HOURS FOR 3 DAYS, THEN INSTILL ONE (1) DROP FOUR TIMES A DAY. Diflupredna Yes INSTILL Uni vers te 0.05 % 8-31 ONE (1) ity of 00:00: DROP(S) IN [place] EACH EYE Medical EVERY 2 Branch HOURS FOR 3 DAYS, THEN INSTILL ONE (1) DROP FOUR TIMES A DAY. Diflupredna Yes INSTILL Uni vers te 0.05 % 8-31 ONE (1) ity of 00:00: DROP(S) IN [place] [address] EACH EYE Medical EVERY 2 Branch HOURS FOR 3 DAYS, THEN INSTILL ONE (1) DROP FOUR TIMES A DAY. Diflupredna Yes INSTILL Uni vers te 0.05 % 8-31 ONE (1) ity of 00:00: DROP(S) IN [place] [address] EACH EYE Medical EVERY 2 Branch HOURS FOR 3 DAYS, THEN INSTILL ONE (1) DROP FOUR TIMES A DAY. Diflupredna Yes INSTILL Uni vers te 0.05 % 8-31 ONE (1) ity of 00:00: DROP(S) IN [place] [address] EACH EYE Medical EVERY 2 Branch HOURS FOR 3 DAYS, THEN INSTILL ONE (1) DROP FOUR TIMES A DAY. Diflupredna Yes INSTILL Uni vers te 0.05 % 8-31 ONE (1) ity of 00:00: DROP(S) IN [place] [address] EACH EYE Medical EVERY 2 Branch HOURS FOR 3 DAYS, THEN INSTILL ONE (1) DROP FOUR TIMES A DAY. Diflupredna Yes INSTILL Uni vers te 0.05 % 8-31 ONE (1) ity of 00:00: DROP(S) IN [place] [address] EACH EYE Medical EVERY 2 Branch HOURS FOR 3 DAYS, THEN INSTILL ONE (1) DROP FOUR TIMES A DAY. Diflupredna Yes INSTILL Uni vers te 0.05 % 8-31 ONE (1) ity of 00:00: DROP(S) IN [place] EACH EYE Medical EVERY 2 Branch HOURS FOR 3 DAYS, THEN INSTILL ONE (1) DROP FOUR TIMES A DAY. Diflupredna 0 Yes INSTILL Uni vers te 0.05 % 8-31 ONE (1) ity of 00:00: DROP(S) IN [place] 00 EACH EYE Medical EVERY 2 Branch HOURS FOR 3 DAYS, THEN INSTILL ONE (1) DROP FOUR TIMES A DAY. Diflupredna Yes INSTILL Uni vers te 0.05 % 8-31 ONE (1) ity of 00:00: DROP(S) IN [place] [address] EACH EYE Medical EVERY 2 Branch HOURS FOR 3 DAYS, THEN INSTILL ONE (1) DROP FOUR TIMES A DAY. Diflupredna Yes INSTILL Uni vers te 0.05 % 8-31 ONE (1) ity of 00:00: DROP(S) IN [place] [address] EACH EYE Medical EVERY 2 Branch HOURS FOR 3 DAYS, THEN INSTILL ONE (1) DROP FOUR TIMES A DAY. Diflupredna Yes INSTILL Uni vers te 0.05 % 8-31 ONE (1) ity of 00:00: DROP(S) IN [place] [address] EACH EYE Medical EVERY 2 Branch HOURS FOR 3 DAYS, THEN INSTILL ONE (1) DROP FOUR TIMES A DAY. Diflupredna Yes INSTILL Uni vers te 0.05 % 8-31 ONE (1) ity of 00:00: DROP(S) IN [place] [address] EACH EYE Medical EVERY 2 Branch HOURS FOR 3 DAYS, THEN INSTILL ONE (1) DROP FOUR TIMES A DAY. Diflupredna Yes INSTILL Uni vers te 0.05 % 8-31 ONE (1) ity of 00:00: DROP(S) IN [place] [address] EACH EYE Medical EVERY 2 Branch HOURS FOR 3 DAYS, THEN INSTILL ONE (1) DROP FOUR TIMES A DAY. Diflupredna Yes INSTILL Uni vers te 0.05 % 8-31 ONE (1) ity of 00:00: DROP(S) IN [place] [address] EACH EYE Medical EVERY 2 Branch HOURS FOR 3 DAYS, THEN INSTILL ONE (1) DROP FOUR TIMES A DAY. Diflupredna 0 Yes INSTILL Uni vers te 0.05 % 8-31 ONE (1) ity of 00:00: DROP(S) IN [place] [address] EACH EYE Medical EVERY 2 Branch HOURS FOR 3 DAYS, THEN INSTILL ONE (1) DROP FOUR TIMES A DAY. Diflupredna 0 Yes INSTILL Uni vers te 0.05 % 8-31 ONE (1) ity of 00:00: DROP(S) IN [place] 00 EACH EYE Medical EVERY 2 Branch HOURS FOR 3 DAYS, THEN INSTILL ONE (1) DROP FOUR TIMES A DAY. Diflupredna 0 Yes INSTILL Uni vers te 0.05 % 8-31 ONE (1) ity of 00:00: DROP(S) IN [place] EACH EYE Medical EVERY 2 Branch HOURS FOR 3 DAYS, THEN INSTILL ONE (1) DROP FOUR TIMES A DAY. Diflupredna Yes INSTILL Uni vers te 0.05 % 8-31 ONE (1) ity of 00:00: DROP(S) IN [place] EACH EYE Medical EVERY 2 Branch HOURS FOR 3 DAYS, THEN INSTILL ONE (1) DROP FOUR TIMES A DAY. Diflupredna Yes INSTILL Uni vers te 0.05 % 8-31 ONE (1) ity of 00:00: DROP(S) IN [place] EACH EYE Medical EVERY 2 Branch HOURS FOR 3 DAYS, THEN INSTILL ONE (1) DROP FOUR TIMES A DAY. Diflupredna Yes INSTILL Uni vers te 0.05 % 8-31 ONE (1) ity of 00:00: DROP(S) IN [place] EACH EYE Medical EVERY 2 Branch HOURS FOR 3 DAYS, THEN INSTILL ONE (1) DROP FOUR TIMES A DAY. LISINOPRIL- Yes [id number] 1{tbl} TAKE 1 Univers HYDROCHLORO 3-23 TABLET BY ity of THIAZIDE 00:00: MOUTH [place] 20-12.5 mg 00 DAILY Medical per tablet Branch AMLODIPINE 2021-0 Yes [id number] TAKE 1 U nivers 5 mg tablet 3-23 TABLET BY ity of 00:00: MOUTH IN [place] 00 THE Medical MORNING Branch GABAPENTIN 2021-0 Yes [id number] TAKE 1 [facility] 300 mg 3-23 CAPSULE BY ity of capsule 00:00: MOUTH 4 [place] 00 TIMES Medical DAILY Branch ATORVASTATI 2021-0 Yes [id number] 20mg TAKE 1 [facility] N 20 mg 3-23 TABLET BY ity of tablet 00:00: MOUTH [place] 00 DAILY Medical Branch LISINOPRIL- Yes [id number] 1{tbl} TAKE 1 [facility] HYDROCHLORO 3-23 TABLET BY ity of THIAZIDE 00:00: MOUTH [place] 20-12.5 mg 00 DAILY Medical per tablet Branch AMLODIPINE 2021-0 Yes [id number] TAKE 1 U nivers 5 mg tablet 3-23 TABLET BY ity of 00:00: MOUTH IN [place] THE Medical MORNING Branch GABAPENTIN 2021-0 Yes [id number] TAKE 1 [facility] 300 mg 3-23 CAPSULE BY ity of capsule 00:00: MOUTH 4 [place] TIMES Medical DAILY Branch ATORVASTATI 0 Yes [id number] 20mg TAKE 1 [facility] N 20 mg 3-23 TABLET BY ity of tablet 00:00: MOUTH [place] DAILY Medical Branch LISINOPRIL- Yes [id number] 1{tbl} TAKE 1 Univers HYDROCHLORO 3-23 TABLET BY ity of THIAZIDE 00:00: MOUTH [place] 20-12.5 mg 00 DAILY Medical per tablet Branch AMLODIPINE 2021-0 Yes [id number] TAKE 1 U nivers 5 mg tablet 3-23 TABLET BY ity of 00:00: MOUTH IN [place] THE Medical MORNING Branch GABAPENTIN 2021-0 Yes [id number] TAKE 1 [facility] 300 mg 3-23 CAPSULE BY ity of capsule 00:00: MOUTH 4 [place] Medical DAILY Branch ATORVASTATI 0 Yes [id number] 20mg TAKE 1 [facility] N 20 mg 3-23 TABLET BY ity of tablet 00:00: MOUTH [place] DAILY Medical Branch LISINOPRIL- 2021-0 Yes [id number] 1{tbl} TAKE 1 [facility] HYDROCHLORO 3-23 TABLET BY ity of THIAZIDE 00:00: MOUTH [place] 20-12.5 mg 00 DAILY Medical per tablet Branch AMLODIPINE 2021-0 Yes [id number] TAKE 1 U nivers 5 mg tablet 3-23 TABLET BY ity of 00:00: MOUTH IN [place] THE Medical MORNING Branch GABAPENTIN 2021-0 Yes [id number] TAKE 1 [facility] 300 mg 3-23 CAPSULE BY ity of capsule 00:00: MOUTH 4 [place] TIMES Medical DAILY Branch ATORVASTATI 0 Yes [id number] 20mg TAKE 1 [facility] N 20 mg 3-23 TABLET BY ity of tablet 00:00: MOUTH [place] DAILY Medical Branch LISINOPRIL- 2021-0 Yes [id number] 1{tbl} TAKE 1 [facility] HYDROCHLORO 3-23 TABLET BY ity of THIAZIDE 00:00: MOUTH [place] 20-12.5 mg 00 DAILY Medical per tablet Branch AMLODIPINE 2021-0 Yes [id number] TAKE 1 U nivers 5 mg tablet 3-23 TABLET BY ity of 00:00: MOUTH IN [place] THE Medical MORNING Branch GABAPENTIN 2021-0 Yes [id number] TAKE 1 [facility] 300 mg 3-23 CAPSULE BY ity of capsule 00:00: MOUTH 4 TIMES Medical DAILY Branch ATORVASTATI 0 Yes [id number] 20mg TAKE 1 [facility] N 20 mg 3-23 TABLET BY ity of tablet 00:00: MOUTH DAILY Medical Branch LISINOPRIL- 0 Yes [id number] 1{tbl} TAKE 1 [facility] HYDROCHLORO 3-23 TABLET BY ity of THIAZIDE 00:00: MOUTH [place] 20-12.5 mg 00 DAILY Medical per tablet Branch AMLODIPINE 2021-0 Yes [id number] TAKE 1 U nivers 5 mg tablet 3-23 TABLET BY ity of 00:00: MOUTH IN [place] THE Medical MORNING Branch GABAPENTIN 2021-0 Yes [id number] TAKE 1 [facility] 300 mg 3-23 CAPSULE BY ity of capsule 00:00: MOUTH 4 [place] Medical DAILY Branch ATORVASTATI 0 Yes [id number] 20mg TAKE 1 [facility] N 20 mg 3-23 TABLET BY ity of tablet 00:00: MOUTH [place] DAILY Medical Branch LISINOPRIL- 0 Yes [id number] 1{tbl} TAKE 1 [facility] HYDROCHLORO 3-23 TABLET BY ity of THIAZIDE 00:00: MOUTH [place] 20-12.5 mg 00 DAILY Medical per tablet Branch AMLODIPINE 2021-0 Yes [id number] TAKE 1 U nivers 5 mg tablet 3-23 TABLET BY ity of 00:00: MOUTH IN [place] THE Medical MORNING Branch GABAPENTIN 2021-0 Yes [id number] TAKE 1 [facility] 300 mg 3-23 CAPSULE BY ity of capsule 00:00: MOUTH 4 [place] TIMES Medical DAILY Branch ATORVASTATI 0 Yes [id number] 20mg TAKE 1 [facility] N 20 mg 3-23 TABLET BY ity of tablet 00:00: MOUTH [place] DAILY Medical Branch LISINOPRIL- 2021-0 2021- No [id number] 1{tbl} TAKE 1 [facility] HYDROCHLORO 3-23 10-19 TABLET BY it y of THIAZIDE 00:00: 00:00 MOUTH [place] 20-12.5 mg 00 :00 DAILY Medical per tablet Branch AMLODIPINE 2021- No [id number] TAKE 1 [facility] 5 mg tablet 3-23 10-19 TABLET BY it y of 00:00: 00:00 MOUTH IN [place] 00 :00 THE Medical MORNING Branch GABAPENTIN 2021- No [id number] TAKE 1 [facility] 300 mg 3-23 10-19 CAPSULE BY ity of capsule 00:00: 00:00 MOUTH 4 [place] 00 :00 TIMES Medical DAILY Branch ATORVASTATI 2021- No [id number] 20mg TAKE 1 [facility] N 20 mg 3-23 10-19 TABLET BY ity of tablet 00:00: 00:00 MOUTH [place] 00 :00 DAILY Medical Branch LISINOPRIL- 2021- No [id number] 1{tbl} TAKE 1 [facility] HYDROCHLORO 3-23 10-19 TABLET BY it y of THIAZIDE 00:00: 00:00 MOUTH [place] 20-12.5 mg 00 :00 DAILY Medical per tablet Branch AMLODIPINE 2021- No [id number] TAKE 1 [facility] 5 mg tablet 3-23 10-19 TABLET BY it y of 00:00: 00:00 MOUTH IN [place] 00 :00 THE Medical MORNING Branch GABAPENTIN 2021- No [id number] TAKE 1 [facility] 300 mg 3-23 10-19 CAPSULE BY ity of capsule 00:00: 00:00 MOUTH 4 [place] 00 :00 TIMES Medical DAILY Branch ATORVASTATI 2021- No [id number] 20mg TAKE 1 [facility] N 20 mg 3-23 10-19 TABLET BY ity of tablet 00:00: 00:00 MOUTH [place] 00 :00 DAILY Medical Branch oseltamivir 2021- No [id number] 75mg Take 1 [facility] (TAMIFLU) 2-18 -24 capsule by ity of 75 mg 00:00: 05:59 mouth 2 [place] capsule 00 :00 (two) Medical times Branch daily for 5 days. oseltamivir 2021- No [id number] 75mg Take 1 [facility] (TAMIFLU) 2-18 -24 capsule by ity of 75 mg 00:00: 05:59 mouth 2 [place] capsule 00 :00 (two) Medical times Branch daily for 5 days. omeprazole 2020-03- No Univer s 40 mg 2-05-14 ity of capsule 00:00: 00:00 [place] 00 :00 Medical Branch omeprazole 2020-03- No Univer s 40 mg 2-18 ity of capsule 00:00: 00:00 [place] 00 :00 Medical Branch omeprazole 2020-03 Yes [id number] 40mg Take 1 [facility] 40 mg 1-03 capsule by ity of capsule 00:00: mouth [place] 00 daily. Medical Branch metoprolol 2020-03 Yes [id number] 50mg Take 1 U nivers succinate 1-03 tablet by ity o f XL 50 mg 24 00:00: mouth [place] hr tablet 00 daily. Medical Branch lisinopriL- 2020-03 Yes [id number] 1{tbl} Take 1 [facility] hydrochloro 1-03 tablet by ity of thiazide 00:00: mouth [place] 20-12.5 mg 00 daily. Medical per tablet Branch gabapentin 2020-03 Yes [id number] TAKE 1 [facility] 300 mg 1-03 CAPSULE BY ity of capsule 00:00: MOUTH 4 [place] 00 TIMES Medical DAILY Branch atorvastati 2020-03 Yes [id number] 20mg Take 1 [facility] n 20 mg 1-03 tablet by ity of tablet 00:00: mouth [place] 00 daily. Medical Branch amLODIPine 2020-03 Yes [id number] 5mg Take 1 U nivers 5 mg tablet 1-03 tablet by ity of 00:00: mouth [place] 00 every Medical morning. Branch cetirizine 2020-03 Yes [id number] 5mg Take 1 [facility] 5 mg tablet 1-03 tablet by ity of 00:00: mouth [place] 00 daily. Medical Branch omeprazole 2020-03 Yes [id number] 40mg Take 1 [facility] 40 mg 1-03 capsule by ity of capsule 00:00: mouth [place] 00 daily. Medical Branch metoprolol 2020-03 Yes [id number] 50mg Take 1 U nivers succinate 1-03 tablet by ity o f XL 50 mg 24 00:00: mouth [place] hr tablet 00 daily. Medical Branch lisinopriL- 2020-03 Yes [id number] 1{tbl} Take 1 [facility] hydrochloro 1-03 tablet by ity of thiazide 00:00: mouth [place] 20-12.5 mg 00 daily. Medical per tablet Branch gabapentin 2020-03 Yes [id number] TAKE 1 [facility] 300 mg 1-03 CAPSULE BY ity of capsule 00:00: MOUTH 4 [place] 00 TIMES Medical DAILY Branch atorvastati 2020-03 Yes [id number] 20mg Take 1 [facility] n 20 mg 1-03 tablet by ity of tablet 00:00: mouth [place] 00 daily. Medical Branch amLODIPine 2020-03 Yes [id number] 5mg Take 1 U nivers 5 mg tablet 1-03 tablet by ity of 00:00: mouth [place] 00 every Medical morning. Branch cetirizine 2020-03 Yes [id number] 5mg Take 1 [facility] 5 mg tablet 1-03 tablet by ity of 00:00: mouth [place] 00 daily. Medical Branch omeprazole 2020-03 Yes [id number] 40mg Take 1 [facility] 40 mg 1-03 capsule by ity of capsule 00:00: mouth [place] 00 daily. Medical Branch metoprolol 2020-03 Yes [id number] 50mg Take 1 U nivers succinate 1-03 tablet by ity o f XL 50 mg 24 00:00: mouth [place] hr tablet 00 daily. Medical Branch lisinopriL- 2020-03 Yes [id number] 1{tbl} Take 1 [facility] hydrochloro 1-03 tablet by ity of thiazide 00:00: mouth [place] 20-12.5 mg 00 daily. Medical per tablet Branch gabapentin 2020-03 Yes [id number] TAKE 1 [facility] 300 mg 1-03 CAPSULE BY ity of capsule 00:00: MOUTH 4 [place] 00 TIMES Medical DAILY Branch atorvastati 2020-03 Yes [id number] 20mg Take 1 [facility] n 20 mg 1-03 tablet by ity of tablet 00:00: mouth [place] 00 daily. Medical Branch amLODIPine 2020-03 Yes [id number] 5mg Take 1 U nivers 5 mg tablet 1-03 tablet by ity of 00:00: mouth [place] 00 every Medical morning. Branch cetirizine 2020-03 Yes [id number] 5mg Take 1 [facility] 5 mg tablet 1-03 tablet by ity of 00:00: mouth [place] 00 daily. Medical Branch omeprazole 2020-03 Yes [id number] 40mg Take 1 [facility] 40 mg 1-03 capsule by ity of capsule 00:00: mouth [place] 00 daily. Medical Branch metoprolol 2020-03 Yes [id number] 50mg Take 1 U nivers succinate 1-03 tablet by ity o f XL 50 mg 24 00:00: mouth [place] hr tablet 00 daily. Medical Branch cetirizine 2020-03 Yes [id number] 5mg Take 1 [facility] 5 mg tablet 1-03 tablet by ity of 00:00: mouth [place] 00 daily. Medical Branch omeprazole 2020-03 Yes [id number] 40mg Take 1 [facility] 40 mg 1-03 capsule by ity of capsule 00:00: mouth [place] 00 daily. Medical Branch metoprolol 2020-03 Yes [id number] 50mg Take 1 U nivers succinate 1-03 tablet by ity o f XL 50 mg 24 00:00: mouth [place] hr tablet 00 daily. Medical Branch cetirizine 2020-03 Yes [id number] 5mg Take 1 [facility] 5 mg tablet 1-03 tablet by ity of 00:00: mouth [place] 00 daily. Medical Branch omeprazole 2020-03 Yes [id number] 40mg Take 1 [facility] 40 mg 1-03 capsule by ity of capsule 00:00: mouth [place] 00 daily. Medical Branch metoprolol 2020-03 Yes [id number] 50mg Take 1 U nivers succinate 1-03 tablet by ity o f XL 50 mg 24 00:00: mouth [place] hr tablet 00 daily. Medical Branch cetirizine 2020-03 Yes [id number] 5mg Take 1 [facility] 5 mg tablet 1-03 tablet by ity of 00:00: mouth [place] 00 daily. Medical Branch omeprazole 2020-03 Yes [id number] 40mg Take 1 [facility] 40 mg 1-03 capsule by ity of capsule 00:00: mouth [place] 00 daily. Medical Branch metoprolol 2020-03 Yes [id number] 50mg Take 1 U nivers succinate 1-03 tablet by ity o f XL 50 mg 24 00:00: mouth [place] hr tablet 00 daily. Medical Branch cetirizine 2020-03 Yes [id number] 5mg Take 1 [facility] 5 mg tablet 1-03 tablet by ity of 00:00: mouth [place] 00 daily. Medical Branch omeprazole 2020-03 Yes [id number] 40mg Take 1 [facility] 40 mg 1-03 capsule by ity of capsule 00:00: mouth [place] 00 daily. Medical Branch metoprolol 2020-03 Yes [id number] 50mg Take 1 U nivers succinate 1-03 tablet by ity o f XL 50 mg 24 00:00: mouth [place] hr tablet 00 daily. Medical Branch cetirizine 2020-03 Yes [id number] 5mg Take 1 [facility] 5 mg tablet 1-03 tablet by ity of 00:00: mouth [place] 00 daily. Medical Branch omeprazole 2020-03 Yes [id number] 40mg Take 1 [facility] 40 mg 1-03 capsule by ity of capsule 00:00: mouth [place] 00 daily. Medical Branch metoprolol 2020-03 Yes [id number] 50mg Take 1 U nivers succinate 1-03 tablet by ity o f XL 50 mg 24 00:00: mouth [place] hr tablet 00 daily. Medical Branch cetirizine 2020-03 Yes [id number] 5mg Take 1 [facility] 5 mg tablet 1-03 tablet by ity of 00:00: mouth [place] 00 daily. Medical Branch omeprazole 2020-03 Yes [id number] 40mg Take 1 [facility] 40 mg 1-03 capsule by ity of capsule 00:00: mouth [place] 00 daily. Medical Branch metoprolol 2020-03 Yes [id number] 50mg Take 1 U nivers succinate 1-03 tablet by ity o f XL 50 mg 24 00:00: mouth [place] hr tablet 00 daily. Medical Branch cetirizine 2020-03 Yes [id number] 5mg Take 1 [facility] 5 mg tablet 1-03 tablet by ity of 00:00: mouth [place] 00 daily. Medical Branch cetirizine 2020-03 Yes [id number] 5mg Take 1 [facility] 5 mg tablet 1-03 tablet by ity of 00:00: mouth [place] 00 daily. Medical Branch cetirizine 2020-03 Yes [id number] 5mg Take 1 [facility] 5 mg tablet 1-03 tablet by ity of 00:00: mouth [place] 00 daily. [facility] Branch cetirizine 2020-03 Yes [id number] 5mg Take 1 [facility] 5 mg tablet 1-03 tablet by ity of 00:00: mouth [place] 00 daily. [facility] Branch cetirizine 2020-03 Yes [id number] 5mg Take 1 [facility] 5 mg tablet 1-03 tablet by ity of 00:00: mouth [place] 00 daily. [facility] Branch cetirizine 2020-03 Yes [id number] 5mg Take 1 [facility] 5 mg tablet 03-29 tablet by ity of 00:00: mouth [place] 00 daily. Medical Branch cetirizine 2020-03 Yes [id number] 5mg Take 1 [facility] 5 mg tablet - tablet by ity of 00:00: mouth [place] 00 daily. Medical Branch cetirizine 2020-03- No [id number] 5mg Take 1 [facility] 5 mg tablet 03-29- tablet by it y of 00:00: 00:00 mouth [place] 00 :00 daily. Medical Branch omeprazole 2020-03- No [id number] 40mg Take 1 [facility] 40 mg 03-29 capsule by ity of capsule 00:00: 00:00 mouth [place] 00 :00 daily. Medical Branch metoprolol 2020-03- No [id number] 50mg Take 1 [facility] succinate 03-29 tablet by ity of XL 50 mg 24 00:00: 00:00 mouth [place] hr tablet 00 :00 daily. Medical Branch omeprazole 2020-03- No [id number] 40mg Take 1 [facility] 40 mg 03-29 capsule by ity of capsule 00:00: 00:00 mouth [place] 00 :00 daily. Medical Branch metoprolol 2020-03- No [id number] 50mg Take 1 [facility] succinate 03-29 tablet by ity of XL 50 mg 24 00:00: 00:00 mouth [place] hr tablet 00 :00 daily. Medical Branch lisinopriL- 2020-03- No [id number] 1{tbl} Take 1 [facility] hydrochloro 03-29 tablet by it y of thiazide 00:00: 00:00 mouth [place] 20-12.5 mg 00 :00 daily. Medical per tablet Branch gabapentin 2020-03- No [id number] TAKE 1 [facility] 300 mg 03-29 CAPSULE BY ity of capsule 00:00: 00:00 MOUTH 4 [place] 00 :00 TIMES Medical DAILY Branch atorvastati 2020-03- No [id number] 20mg Take 1 [facility] n 20 mg 03-29 tablet by ity of tablet 00:00: 00:00 mouth [place] 00 :00 daily. Medical Branch amLODIPine 2020-03- No [id number] 5mg Take 1 [facility] 5 mg tablet 03-29 tablet by it y of 00:00: 00:00 mouth [place] 00 :00 every Medical morning. Branch aspirin 81 2020-03 Yes 81mg Take 81 mg U nivers mg chewable 0-22 by mouth ity of tablet 19:20: daily. [address] CALCIUM 2020-03 Yes Take by Univers ORAL 0-22 mouth. ity of 19:20: [address] calcium 2020-03 Yes Take by Univers carbonate/v 0-22 mouth. ity of itamin D3 19:20: [place] (VITAMIN 43 Medical D-3 ORAL) [place] traMADoL 50 2020-03 Yes 50mg Take 50 mg Univers mg tablet 0-22 by mouth ity of 19:20: every 6 [place] [id number] (six) Medical hours as Branch needed. melatonin 2020-03 Yes Take by Unive rs 10 mg Tab 0-22 mouth. ity of 19:20: [address] aspirin 81 2020-03 Yes 81mg Take 81 mg U nivers mg chewable 0-22 by mouth ity of tablet 19:20: daily. [address] CALCIUM 2020-03 Yes Take by Univers ORAL 0-22 mouth. ity of 19:20: [address] calcium 2020-03 Yes Take by Univers carbonate/v 0-22 mouth. ity of itamin D3 19:20: [place] (VITAMIN 43 Medical D-3 ORAL) [place] traMADoL 50 2020-03 Yes 50mg Take 50 mg Univers mg tablet 0-22 by mouth ity of 19:20: every 6 [place] [id number] (six) Medical hours as Branch needed. melatonin 2020-03 Yes Take by Unive rs 10 mg Tab 0-22 mouth. ity of 19:20: [address] aspirin 81 2020-03 Yes 81mg Take 81 mg U nivers mg chewable 0-22 by mouth ity of tablet 19:20: daily. [address] CALCIUM 2020-03 Yes Take by Univers ORAL 0-22 mouth. ity of 19:20: [address] calcium 2020-03 Yes Take by Univers carbonate/v 0-22 mouth. ity of itamin D3 19:20: [place] (VITAMIN 43 Medical D-3 ORAL) [place] traMADoL 50 2020-03 Yes 50mg Take 50 mg Univers mg tablet 0-22 by mouth ity of 19:20: every 6 [place] [id number] (six) Medical hours as Branch needed. melatonin 2020-03 Yes Take by Unive rs 10 mg Tab 0-22 mouth. ity of 19:20: [address] aspirin 81 2020-03 Yes 81mg Take 81 mg U nivers mg chewable 0-22 by mouth ity of tablet 19:20: daily. [address] CALCIUM 2020-03 Yes Take by Univers ORAL 0-22 mouth. ity of 19:20: [address] calcium 2020-03 Yes Take by Univers carbonate/v 0-22 mouth. ity of itamin D3 19:20: [place] (VITAMIN 43 Medical D-3 ORAL) [place] traMADoL 50 2020-03 Yes 50mg Take 50 mg Univers mg tablet 0-22 by mouth ity of 19:20: every 6 [place] [id number] (six) Medical hours as Branch needed. melatonin 2020-03 Yes Take by Unive rs 10 mg Tab 0-22 mouth. ity of 19:20: [address] aspirin 81 2020-03 Yes 81mg Take 81 mg U nivers mg chewable 0-22 by mouth ity of tablet 19:20: daily. [address] CALCIUM 2020-03 Yes Take by Univers ORAL 0-22 mouth. ity of 19:20: [address] calcium 2020-03 Yes Take by Univers carbonate/v 0-22 mouth. ity of itamin D3 19:20: [place] (VITAMIN 43 Medical D-3 ORAL) [place] traMADoL 50 2020-03 Yes 50mg Take 50 mg [facility] mg tablet 0-22 by mouth ity of 19:20: every 6 [place] [id number] (six) Medical hours as Branch needed. melatonin 2020-03 Yes Take by Unive rs 10 mg Tab 0-22 mouth. ity of 19:20: [address] aspirin 81 2020-03 Yes 81mg Take 81 mg U nivers mg chewable 0-22 by mouth ity of tablet 19:20: daily. [address] CALCIUM 2020-03 Yes Take by Univers ORAL 0-22 mouth. ity of 19:20: [address] calcium 2020-03 Yes Take by Univers carbonate/v 0-22 mouth. ity of itamin D3 19:20: [place] (VITAMIN 43 Medical D-3 ORAL) Branch traMADoL 50 2020-03 Yes 50mg Take 50 mg [facility] mg tablet 0-22 by mouth ity of 19:20: every 6 [place] [id number] (six) Medical hours as Branch needed. melatonin 2020-03 Yes Take by Unive rs 10 mg Tab 0-22 mouth. ity of 19:20: [address] aspirin 81 2020-03 Yes 81mg Take 81 mg U nivers mg chewable 0-22 by mouth ity of tablet 19:20: daily. [address] Branch CALCIUM 2020-03 Yes Take by Univers ORAL 0-22 mouth. ity of 19:20: [address] calcium 2020-03 Yes Take by [facility] carbonate/v 0-22 mouth. ity of itamin D3 19:20: [place] (VITAMIN Medical D-3 ORAL) [place] traMADoL 50 2020-03 Yes 50mg Take 50 mg [facility] mg tablet 0-22 by mouth ity of 19:20: every 6 [place] [id number] (six) Medical hours as Branch needed. melatonin 2020-03 Yes Take by Unive rs 10 mg Tab 0-22 mouth. ity of 19:20: [address] Branch traMADoL 50 2020-03 Yes 50mg Take 50 mg [facility] mg tablet 0-22 by mouth ity of 19:20: every 6 [place] [id number] (six) Medical hours as Branch needed. traMADoL 50 2020-03 Yes 50mg Take 50 mg [facility] mg tablet 0-22 by mouth ity of 19:20: every 6 [place] [address] (six) Medical hours as Branch needed. traMADoL 50 2020-03 Yes 50mg Take 50 mg [facility] mg tablet 0-22 by mouth ity of 19:20: every 6 [place] [address] (six) Medical hours as Branch needed. traMADoL 50 2020-03 Yes 50mg Take 50 mg [facility] mg tablet 0-22 by mouth ity of 19:20: every 6 [place] [address] (six) Medical hours as Branch needed. traMADoL 50 2020-03 Yes 50mg Take 50 mg [facility] mg tablet 0-22 by mouth ity of 19:20: every 6 [place] 43 (six) Medical hours as Branch needed. traMADoL 50 2020-03 Yes 50mg Take 50 mg [facility] mg tablet 0-22 by mouth ity of 19:20: every 6 [place] [address] (six) Medical hours as Branch needed. traMADoL 50 2020-03 Yes 50mg Take 50 mg [facility] mg tablet 0-22 by mouth ity of 19:20: every 6 [place] 43 (six) Medical hours as Branch needed. traMADoL 50 2020-03 Yes 50mg Take 50 mg [facility] mg tablet 0-22 by mouth ity of 19:20: every 6 [place] 43 (six) Medical hours as Branch needed. traMADoL 50 2020-03 Yes 50mg Take 50 mg [facility] mg tablet 0-22 by mouth ity of 19:20: every 6 [place] 43 (six) Medical hours as Branch needed. traMADoL 50 2020-03 Yes 50mg Take 50 mg [facility] mg tablet 0-22 by mouth ity of 19:20: every 6 [place] 43 (six) Medical hours as Branch needed. traMADoL 50 2020-03 Yes 50mg Take 50 mg [facility] mg tablet 0-22 by mouth ity of 19:20: every 6 [place] 43 (six) Medical hours as Branch needed. traMADoL 50 2020-03 Yes 50mg Take 50 mg [facility] mg tablet 0-22 by mouth ity of 19:20: every 6 [place] 43 (six) Medical hours as Branch needed. traMADoL 50 2020-03 Yes 50mg Take 50 mg [facility] mg tablet 0-22 by mouth ity of 19:20: every 6 [place] 43 (six) Medical hours as Branch needed. traMADoL 50 2020-03 Yes 50mg Take 50 mg [facility] mg tablet 0-22 by mouth ity of 19:20: every 6 [place] 43 (six) Medical hours as Branch needed. traMADoL 50 2020-03 Yes 50mg Take 50 mg [facility] mg tablet 0-22 by mouth ity of 19:20: every 6 [place] 43 (six) Medical hours as Branch needed. traMADoL 50 2020-03 Yes 50mg Take 50 mg [facility] mg tablet 0-22 by mouth ity of 19:20: every 6 [place] 43 (six) Medical hours as Branch needed. traMADoL 50 2020-03 Yes 50mg Take 50 mg [facility] mg tablet 0-22 by mouth ity of 19:20: every 6 [place] 43 (six) Medical hours as Branch needed. traMADoL 50 2020-03 Yes 50mg Take 50 mg [facility] mg tablet 0-22 by mouth ity of 19:20: every 6 [place] 43 (six) Medical hours as Branch needed. traMADoL 50 2020-03 Yes 50mg Take 50 mg [facility] mg tablet 0-22 by mouth ity of 19:20: every 6 [place] [address] (six) Medical hours as Branch needed. traMADoL 50 2020-03 Yes 50mg Take 50 mg [facility] mg tablet 0-22 by mouth ity of 19:20: every 6 [place] [address] (six) Medical hours as Branch needed. traMADoL 50 2020-03 Yes 50mg Take 50 mg [facility] mg tablet 0-22 by mouth ity of 19:20: every 6 [place] [address] (six) Medical hours as Branch needed. Naprosyn Naprosyn No Naprosyn A zalea 500 mg 500 mg 8-24 500 mg [facility] tablet Take tablet Take 00:00: tablet dic 1 tablet by 1 tablet by 00 Take 1 [facility] mouth twice mouth twice tablet by Medicin a day a day mouth e twice a day Naprosyn Naprosyn No Naprosyn A zalea 500 mg 500 mg 8-24 500 mg [facility] tablet Take tablet Take 00:00: tablet dic 1 tablet by 1 tablet by 00 Take 1 [facility] mouth twice mouth twice tablet by Medicin a day a day mouth e twice a day Naprosyn Naprosyn No Naprosyn A zalea 500 mg 500 mg 8-24 500 mg [facility] tablet Take tablet Take 00:00: tablet dic 1 tablet by 1 tablet by 00 Take 1 [facility] mouth twice mouth twice tablet by Medicin a day a day mouth e twice a day Naprosyn Naprosyn No Naprosyn A zalea 500 mg 500 mg 8-24 500 mg [facility] tablet Take tablet Take 00:00: tablet dic 1 tablet by 1 tablet by 00 Take 1 [facility] mouth twice mouth twice tablet by Medicin a day a day mouth e twice a day Naprosyn Naprosyn No Naprosyn A zalea 500 mg 500 mg 8-24 500 mg [facility] tablet Take tablet Take 00:00: tablet dic 1 tablet by 1 tablet by 00 Take 1 [facility] mouth twice mouth twice tablet by Medicin a day a day mouth e twice a day aspirin 81 Yes 81mg QD Take [address] MG EC 3-02 by [facility] tablet 16:11: daily. [address] albuterol Yes 1{puff} Inhale [address] HFA 3-02 puff by [facility] (VENTOLIN 16:11: mouth via Med ical HFA) 90 23 inhaler as Center mcg/actuati needed for on inhaler Wheezing. omeprazole Yes 40mg QD Take [address] (PriLOSEC) 3-02 by mouth [facility] 40 MG 16:11: daily. Medical capsule 23 Center gabapentin Yes 600mg Q.5D Take [address] (NEURONTIN) 3-02 mg by [facility] 300 MG 16:11: mouth 2 Medical capsule 23 (two) Center times daily . amLODIPine Yes 5mg QD Take [address] [facility] [address] [facility] (NORVASC) 5 3-02 by mouth [facility] MG tablet 16:11: daily. Medica l 23 Center atorvastati Yes 20mg QD Take [address] [facility] (LIPITOR) 3-02 by mouth [facility] 20 MG 16:11: daily. Medical tablet 23 [place] lisinopril- Yes 1{tbl} QD Take [address] [facility] [address] [facility] hydroCHLORO 3-02 tablet by [place] [facility] thiazide 16:11: mouth Medical (PRINZIDE,Z 23 daily. [facility] ESTORETIC) 20-12.5 mg per tablet metoprolol Yes 25mg QD Take [address] succinate 3-02 by mouth [facility] (TOPROL-XL) 16:11: daily . Med ical 50 MG 24 hr 23 Center tablet Missing or Yes Calcium [facility] Non-Formula 3-02 supplement [facility] kes ry 16:11: 500 mg Medical Medication [address] nPotassium Supplement Per pt. melatonin 3 Yes 10mg QD Take [address] [facility] mg Tab 3-02 by mouth [facility] tablet 16:11: nightly. [facility] 23 [place] aspirin 81 Yes 81mg QD Take [address] MG EC 3-02 by mouth [facility] tablet 16:11: daily. [facility] 23 [place] albuterol Yes 1{puff} Inhale [address] HFA 3-02 puff by [facility] (VENTOLIN 16:11: mouth via Med ical HFA) 90 23 inhaler as Center mcg/actuati needed for on inhaler Wheezing. omeprazole Yes 40mg QD Take [address] (PriLOSEC) 3-02 by mouth [facility] 40 MG 16:11: daily. Medical capsule 23 Center gabapentin Yes 600mg Q.5D Take [address] (NEURONTIN) 3-02 mg by [facility] 300 MG 16:11: mouth 2 Medical capsule 23 (two) Center times daily . amLODIPine Yes 5mg QD Take [address] [facility] [address] [facility] (NORVASC) 5 3-02 by mouth [facility] MG tablet 16:11: daily. Medica l 23 Center atorvastati Yes 20mg QD Take [address] [facility] (LIPITOR) 3-02 by mouth [facility] 20 MG 16:11: daily. Medical tablet 23 Center lisinopril- Yes 1{tbl} QD Take [address] hydroCHLORO 3-02 tablet by [place] [facility] thiazide 16:11: mouth Medical (PRINZIDE,Z 23 daily. Center ESTORETIC) 20-12.5 mg per tablet metoprolol Yes 25mg QD Take [address] succinate 3-02 by mouth [facility] (TOPROL-XL) 16:11: daily . Med ical 50 MG 24 hr 23 Center tablet Missing or Yes Calcium [facility] Non-Formula 3-02 supplement [facility] 16:11: 500 mg Medical Medication [address] nPotassium Supplement Per pt. melatonin 3 Yes 10mg QD Take [address] [facility] mg Tab 3-02 by mouth [facility] tablet 16:11: nightly. [facility] 23 [place] aspirin 81 Yes 81mg QD Take [address] MG EC 3-02 by mouth [facility] tablet 16:11: daily. [facility] 23 [place] albuterol Yes 1{puff} Inhale [address] HFA 3-02 puff by [facility] (VENTOLIN 16:11: mouth via Med ical HFA) 90 23 inhaler as Center mcg/actuati needed for on inhaler Wheezing. omeprazole Yes 40mg QD Take [address] (PriLOSEC) 3-02 by mouth [facility] 40 MG 16:11: daily. Medical capsule 23 Center gabapentin Yes 600mg Q.5D Take [address] (NEURONTIN) 3-02 mg by [facility] 300 MG 16:11: mouth 2 Medical capsule 23 (two) Center times daily . amLODIPine Yes 5mg QD Take [address] [facility] [address] [facility] (NORVASC) 5 3-02 by mouth [facility] MG tablet 16:11: daily. Medica l 23 Center atorvastati Yes 20mg QD Take [address] [facility] (LIPITOR) 3-02 by mouth [facility] 20 MG 16:11: daily. Medical tablet 23 [place] lisinopril- Yes 1{tbl} QD Take [address] hydroCHLORO 3-02 tablet by [place] [facility] thiazide 16:11: mouth Medical (PRINZIDE,Z 23 daily. [facility] ESTORETIC) 20-12.5 mg per tablet metoprolol Yes 25mg QD Take [address] succinate 3-02 by mouth [facility] (TOPROL-XL) 16:11: daily . Med ical 50 MG 24 hr 23 Center tablet Missing or Yes Calcium [facility] Non-Formula 3-02 supplement [facility] 16:11: 500 mg Medical Medication [address] nPotassium Supplement Per pt. melatonin 3 Yes 10mg QD Take [address] [facility] mg Tab 3-02 by mouth [facility] tablet 16:11: nightly. Medical 23 [place] traMADoL 2020- No 50mg Take [address] [facility] [address] [facility] (ULTRAM) 50 3-02 03-02 by mouth [place] [facility] mg tablet 12:20: 00:00 every 6 Medi melita 05 :00 (six) Center hours as needed for Pain. traMADoL 2020- No 50mg Take [address] [facility] (ULTRAM) 50 -02 03-12 tablet (50 [facility] mg tablet 00:00: 23:59 mg total) Me dical 00 :00 by mouth Center every 6 (six) hours as needed for Pain for up to 10 days. Max Daily Amount: 200 mg Ecotrin 325 Ecotrin 325 2019-03 No Ecotrin [facility] mg mg 1-10 325 mg [facility] tablet,ente tablet,ente 00:00: tablet,ent dic morgan coated morgan coated 00 renetta Spo rts coated Medicin e Vitamin Vitamin 2019-03 No Vitamin Azal ea B-12 500 B-12 500 1-10 B-12 500 [facility] mcg mcg 00:00: mcg dic lozenges lozenges 00 lozenges Spo rts Medicin e Arya 10 Arya 10 2019-03 No Arya 10 Azal ea mg-40 mg mg-40 mg 1-10 mg-40 mg [facility] tablet tablet 00:00: tablet dic 00 Sports Medicin e Crestor 10 Crestor 10 2019-03 No Crestor 10 Pretty mg tablet mg tablet 1-10 mg tablet [facility] 00:00: dic 00 Sports Medicin e Ecotrin 325 Ecotrin 325 2019-03 No Ecotrin Pretty mg mg 1-10 325 mg [facility] tablet,ente tablet,ente 00:00: tablet,ent dic morgan coated morgan coated 00 renetta Spo rts coated Medicin e Vitamin Vitamin 2019-03 No Vitamin Azal ea B-12 500 B-12 500 1-10 B-12 500 [facility] mcg mcg 00:00: mcg dic lozenges lozenges 00 lozenges Spo rts Medicin e Arya 10 Arya 10 2019-03 No Arya 10 Azal ea mg-40 mg mg-40 mg 1-10 mg-40 mg [facility] tablet tablet 00:00: tablet dic 00 Sports Medicin e Crestor 10 Crestor 10 2019-03 No Crestor 10 Pretty mg tablet mg tablet 1-10 mg tablet [facility] 00:00: dic 00 Sports Medicin e Ecotrin 325 Ecotrin 325 2019-03 No Ecotrin Pretty mg mg 1-10 325 mg [facility] tablet,ente tablet,ente 00:00: tablet,ent dic morgan coated morgan coated 00 renetta Spo rts coated Medicin e Vitamin Vitamin 2019-03 No Vitamin Azal ea B-12 500 B-12 500 1-10 B-12 500 [facility] mcg mcg 00:00: mcg dic lozenges lozenges 00 lozenges Spo rts Medicin e Arya 10 Arya 10 2019-03 No Arya 10 Azal ea mg-40 mg mg-40 mg 1-10 mg-40 mg [facility] tablet tablet 00:00: tablet dic 00 Sports Medicin e Crestor 10 Crestor 10 2019-03 No Crestor 10 Pretty mg tablet mg tablet 1-10 mg tablet [facility] 00:00: dic 00 Sports Medicin e Ecotrin 325 Ecotrin 325 2019-03 No Ecotrin Pretty mg mg 1-10 325 mg [facility] tablet,ente tablet,ente 00:00: tablet,ent dic morgan coated morgan coated 00 renetta Spo rts coated Medicin e Vitamin Vitamin 2019-03 No Vitamin Azal ea B-12 500 B-12 500 1-10 B-12 500 [facility] mcg mcg 00:00: mcg dic lozenges lozenges 00 lozenges Spo rts Medicin e Arya 10 Arya 10 2019-03 No Arya 10 Azal ea mg-40 mg mg-40 mg 1-10 mg-40 mg [facility] tablet tablet 00:00: tablet dic 00 Sports Medicin e Crestor 10 Crestor 10 2019-03 No Crestor 10 Pretty mg tablet mg tablet 1-10 mg tablet [facility] 00:00: dic 00 Sports Medicin e Ecotrin 325 Ecotrin 325 2019-03 No Ecotrin Pretty mg mg 1-10 325 mg [facility] tablet,ente tablet,ente 00:00: tablet,ent dic morgan coated morgan coated 00 renetta Spo rts coated Medicin e Vitamin Vitamin 2019-03 No Vitamin Azal ea B-12 500 B-12 500 1-10 B-12 500 [facility] mcg mcg 00:00: mcg dic lozenges lozenges 00 lozenges Spo rts Medicin e Arya 10 Arya 10 2019-03 No Arya 10 Azal ea mg-40 mg mg-40 mg 1-10 mg-40 mg [facility] tablet tablet 00:00: tablet dic 00 Sports Medicin e Crestor 10 Crestor 10 2019-03 No Crestor 10 Pretty mg tablet mg tablet 1-10 mg tablet [facility] 00:00: dic 00 Sports Medicin e albuterol Yes 2{puff} Inhale 2 U nivers 90 4-02 Puffs ity of mcg/actuati 00:00: every 6 [place] as on inhaler 00 (six) Medical hours as Branch needed for Wheezing or Shortness of Breath. albuterol Yes 2{puff} Inhale 2 U nivers 90 4-02 Puffs ity of mcg/actuati 00:00: every 6 [place] as on inhaler 00 (six) Medical hours as Branch needed for Wheezing or Shortness of Breath. albuterol 2020-0 Yes 2{puff} Inhale 2 U nivers 90 4-02 Puffs ity of mcg/actuati 00:00: every 6 [place] as on inhaler 00 (six) Medical hours as Branch needed for Wheezing or Shortness of Breath. albuterol 2020-0 Yes 2{puff} Inhale 2 U nivers 90 4-02 Puffs ity of mcg/actuati 00:00: every 6 [place] as on inhaler 00 (six) Medical hours as Branch needed for Wheezing or Shortness of Breath. albuterol 2020-0 Yes 2{puff} Inhale 2 U nivers 90 4-02 Puffs ity of mcg/actuati 00:00: every 6 [place] as on inhaler 00 (six) Medical hours as Branch needed for Wheezing or Shortness of Breath. albuterol 2020-0 Yes 2{puff} Inhale 2 U nivers 90 4-02 Puffs ity of mcg/actuati 00:00: every 6 [place] as on inhaler 00 (six) Medical hours as Branch needed for Wheezing or Shortness of Breath. albuterol 2020-0 Yes 2{puff} Inhale 2 U nivers 90 4-02 Puffs ity of mcg/actuati 00:00: every 6 [place] as on inhaler 00 (six) Medical hours as Branch needed for Wheezing or Shortness of Breath. albuterol 2020-0 Yes 2{puff} Inhale 2 U nivers 90 4-02 Puffs ity of mcg/actuati 00:00: every 6 [place] as on inhaler 00 (six) Medical hours as Branch needed for Wheezing or Shortness of Breath. albuterol 2020-0 Yes 2{puff} Inhale 2 U nivers 90 4-02 Puffs ity of mcg/actuati 00:00: every 6 [place] as on inhaler 00 (six) Medical hours as Branch needed for Wheezing or Shortness of Breath. albuterol 2020-0 Yes 2{puff} Inhale 2 U nivers 90 4-02 Puffs ity of mcg/actuati 00:00: every 6 [place] as on inhaler 00 (six) Medical hours as Branch needed for Wheezing or Shortness of Breath. albuterol 2020-0 Yes 2{puff} Inhale 2 U nivers 90 4-02 Puffs ity of mcg/actuati 00:00: every 6 [place] as on inhaler 00 (six) Medical hours as Branch needed for Wheezing or Shortness of Breath. albuterol 2020-0 Yes 2{puff} Inhale 2 U nivers 90 4-02 Puffs ity of mcg/actuati 00:00: every 6 [place] as on inhaler 00 (six) Medical hours as Branch needed for Wheezing or Shortness of Breath. albuterol 2020-0 Yes 2{puff} Inhale 2 U nivers 90 4-02 Puffs ity of mcg/actuati 00:00: every 6 [place] as on inhaler 00 (six) Medical hours as Branch needed for Wheezing or Shortness of Breath. albuterol 2020-0 Yes 2{puff} Inhale 2 U nivers 90 4-02 Puffs ity of mcg/actuati 00:00: every 6 [place] as on inhaler 00 (six) Medical hours as Branch needed for Wheezing or Shortness of Breath. albuterol 2020-0 Yes 2{puff} Inhale 2 U nivers 90 4-02 Puffs ity of mcg/actuati 00:00: every 6 [place] as on inhaler 00 (six) Medical hours as Branch needed for Wheezing or Shortness of Breath. albuterol 2020-0 Yes 2{puff} Inhale 2 U nivers 90 4-02 Puffs ity of mcg/actuati 00:00: every 6 [place] as on inhaler 00 (six) Medical hours as Branch needed for Wheezing or Shortness of Breath. albuterol 2020-0 Yes 2{puff} Inhale 2 U nivers 90 4-02 Puffs ity of mcg/actuati 00:00: every 6 [place] as on inhaler 00 (six) Medical hours as Branch needed for Wheezing or Shortness of Breath. albuterol 2020-0 Yes 2{puff} Inhale 2 U nivers 90 4-02 Puffs ity of mcg/actuati 00:00: every 6 [place] as on inhaler 00 (six) Medical hours as Branch needed for Wheezing or Shortness of Breath. albuterol 2020-0 Yes 2{puff} Inhale 2 U nivers 90 4-02 Puffs ity of mcg/actuati 00:00: every 6 [place] as on inhaler 00 (six) Medical hours as Branch needed for Wheezing or Shortness of Breath. albuterol 2020-0 Yes 2{puff} Inhale 2 U nivers 90 4-02 Puffs ity of mcg/actuati 00:00: every 6 [place] as on inhaler 00 (six) Medical hours as Branch needed for Wheezing or Shortness of Breath. albuterol 2020-0 Yes 2{puff} Inhale 2 U nivers 90 4-02 Puffs ity of mcg/actuati 00:00: every 6 [place] as on inhaler 00 (six) Medical hours as Branch needed for Wheezing or Shortness of Breath. albuterol 2020-0 Yes 2{puff} Inhale 2 U nivers 90 4-02 Puffs ity of mcg/actuati 00:00: every 6 [place] as on inhaler 00 (six) Medical hours as Branch needed for Wheezing or Shortness of Breath. albuterol 2020-0 Yes 2{puff} Inhale 2 U nivers 90 4-02 Puffs ity of mcg/actuati 00:00: every 6 [place] as on inhaler 00 (six) Medical hours as Branch needed for Wheezing or Shortness of Breath. albuterol 2020-0 Yes 2{puff} Inhale 2 U nivers 90 4-02 Puffs ity of mcg/actuati 00:00: every 6 [place] as on inhaler 00 (six) Medical hours as Branch needed for Wheezing or Shortness of Breath. albuterol 2020-0 Yes 2{puff} Inhale 2 U nivers 90 4-02 Puffs ity of mcg/actuati 00:00: every 6 [place] as on inhaler 00 (six) Medical hours as Branch needed for Wheezing or Shortness of Breath. albuterol 2020-0 Yes 2{puff} Inhale 2 U nivers 90 4-02 Puffs ity of mcg/actuati 00:00: every 6 [place] as on inhaler 00 (six) Medical hours as Branch needed for Wheezing or Shortness of Breath. albuterol 2020-0 Yes 2{puff} Inhale 2 U nivers 90 4-02 Puffs ity of mcg/actuati 00:00: every 6 [place] as on inhaler 00 (six) Medical hours as Branch needed for Wheezing or Shortness of Breath. albuterol 2020-0 Yes 2{puff} Inhale 2 U nivers 90 4-02 Puffs ity of mcg/actuati 00:00: every 6 [place] as on inhaler 00 (six) Medical hours as Branch needed for Wheezing or Shortness of Breath. ketorolac ketorolac 2017-03 No ketorolac [facility] 10 mg 10 mg 2-21 10 mg [facility] tablet tablet 00:00: tablet dic Sports Medicin e ketorolac ketorolac 2017-03 No ketorolac [facility] 10 mg 10 mg 2-21 10 mg [facility] tablet tablet 00:00: tablet dic Sports Medicin e ketorolac ketorolac 2017-03 No ketorolac [facility] 10 mg 10 mg 2-21 10 mg [facility] tablet tablet 00:00: tablet dic Sports Medicin e ketorolac ketorolac 2017-03 No ketorolac [facility] 10 mg 10 mg 2-21 10 mg [facility] tablet tablet 00:00: tablet dic Sports Medicin e ketorolac ketorolac 2017-03 No ketorolac Pretty 10 mg 10 mg 2-21 10 mg [facility] tablet tablet 00:00: tablet dic 00 Sports Medicin e blood sugar Yes [id number] Use as [facility] diagnostic 3-30 directed ity o f (ACCU-CHEK 00:00: for once a [place] LYDIA PLUS 00 day blood Medi melita TEST STRP) glucose Branch strip monitoring for ICD of E11.9 Type 2. blood sugar Yes [id number] Use as [facility] diagnostic 3-30 directed ity o f (ACCU-CHEK 00:00: for once a [place] LYDIA PLUS 00 day blood Medi melita TEST STRP) glucose Branch strip monitoring for ICD of E11.9 Type 2. blood sugar Yes [id number] Use as [facility] diagnostic 3-30 directed ity o f (ACCU-CHEK 00:00: for once a [place] LYDIA PLUS 00 day blood Medi melita TEST STRP) glucose Branch strip monitoring for ICD of E11.9 Type 2. blood sugar Yes [id number] Use as [facility] diagnostic 3-30 directed ity o f (ACCU-CHEK 00:00: for once a [place] LYDIA PLUS 00 day blood Medi melita TEST STRP) glucose Branch strip monitoring for ICD of E11.9 Type 2. blood sugar Yes [id number] Use as [facility] diagnostic 3-30 directed ity o f (ACCU-CHEK 00:00: for once a [place] LYDIA PLUS 00 day blood Medi melita TEST STRP) glucose Branch strip monitoring for ICD of E11.9 Type 2. blood sugar Yes [id number] Use as [facility] diagnostic 3-30 directed ity o f (ACCU-CHEK 00:00: for once a [place] LYDIA PLUS 00 day blood Medi melita TEST STRP) glucose Branch strip monitoring for ICD of E11.9 Type 2. blood sugar Yes [id number] Use as [facility] diagnostic 3-30 directed ity o f (ACCU-CHEK 00:00: for once a [place] LYDIA PLUS 00 day blood Medi melita TEST STRP) glucose Branch strip monitoring for ICD of E11.9 Type 2. blood sugar Yes [id number] Use as [facility] diagnostic 3-30 directed ity o f (ACCU-CHEK 00:00: for once a [place] LYDIA PLUS 00 day blood Medi melita TEST STRP) glucose Branch strip monitoring for ICD of E11.9 Type 2. blood sugar Yes [id number] Use as [facility] diagnostic 3-30 directed ity o f (ACCU-CHEK 00:00: for once a [place] LYDIA PLUS 00 day blood Medi melita TEST STRP) glucose Branch strip monitoring for ICD of E11.9 Type 2. blood sugar Yes [id number] Use as [facility] diagnostic 3-30 directed ity o f (ACCU-CHEK 00:00: for once a [place] LYDIA PLUS 00 day blood Medi melita TEST STRP) glucose Branch strip monitoring for ICD of E11.9 Type 2. blood sugar Yes [id number] Use as [facility] diagnostic 3-30 directed ity o f (ACCU-CHEK 00:00: for once a [place] LYDIA PLUS 00 day blood Medi melita TEST STRP) glucose Branch strip monitoring for ICD of E11.9 Type 2. blood sugar Yes [id number] Use as [facility] diagnostic 3-30 directed ity o f (ACCU-CHEK 00:00: for once a [place] LYDIA PLUS 00 day blood Medi melita TEST STRP) glucose Branch strip monitoring for ICD of E11.9 Type 2. blood sugar Yes [id number] Use as [facility] diagnostic 3-30 directed ity o f (ACCU-CHEK 00:00: for once a [place] LYDIA PLUS 00 day blood Medi melita TEST STRP) glucose Branch strip monitoring for ICD of E11.9 Type 2. blood sugar Yes [id number] Use as [facility] diagnostic 3-30 directed ity o f (ACCU-CHEK 00:00: for once a [place] LYDIA PLUS 00 day blood Medi melita TEST STRP) glucose Branch strip monitoring for ICD of E11.9 Type 2. blood sugar Yes [id number] Use as [facility] diagnostic 3-30 directed ity o f (ACCU-CHEK 00:00: for once a [place] LYDIA PLUS 00 day blood Medi melita TEST STRP) glucose Branch strip monitoring for ICD of E11.9 Type 2. blood sugar Yes [id number] Use as [facility] diagnostic 3-30 directed ity o f (ACCU-CHEK 00:00: for once a [place] LYDIA PLUS 00 day blood Medi melita TEST STRP) glucose Branch strip monitoring for ICD of E11.9 Type 2. blood sugar Yes [id number] Use as [facility] diagnostic 3-30 directed ity o f (ACCU-CHEK 00:00: for once a [place] LYDIA PLUS 00 day blood Medi melita TEST STRP) glucose Branch strip monitoring for ICD of E11.9 Type 2. blood sugar Yes [id number] Use as [facility] diagnostic 3-30 directed ity o f (ACCU-CHEK 00:00: for once a [place] LYDIA PLUS 00 day blood Medi melita TEST STRP) glucose Branch strip monitoring for ICD of E11.9 Type 2. blood sugar Yes [id number] Use as [facility] diagnostic 3-30 directed ity o f (ACCU-CHEK 00:00: for once a [place] LYDIA PLUS 00 day blood Medi melita TEST STRP) glucose Branch strip monitoring for ICD of E11.9 Type 2. blood sugar Yes [id number] Use as [facility] diagnostic 3-30 directed ity o f (ACCU-CHEK 00:00: for once a [place] LYDIA PLUS 00 day blood Medi melita TEST STRP) glucose Branch strip monitoring for ICD of E11.9 Type 2. blood sugar Yes [id number] Use as [facility] diagnostic 3-30 directed ity o f (ACCU-CHEK 00:00: for once a [place] LYDIA PLUS 00 day blood Medi melita TEST STRP) glucose Branch strip monitoring for ICD of E11.9 Type 2. blood sugar Yes [id number] Use as [facility] diagnostic 3-30 directed ity o f (ACCU-CHEK 00:00: for once a [place] LYDIA PLUS 00 day blood Medi melita TEST STRP) glucose Branch strip monitoring for ICD of E11.9 Type 2. blood sugar Yes [id number] Use as [facility] diagnostic 3-30 directed ity o f (ACCU-CHEK 00:00: for once a [place] LYDIA PLUS 00 day blood Medi melita TEST STRP) glucose Branch strip monitoring for ICD of E11.9 Type 2. blood sugar Yes [id number] Use as [facility] diagnostic 3-30 directed ity o f (ACCU-CHEK 00:00: for once a [place] LYDIA PLUS 00 day blood Medi melita TEST STRP) glucose Branch strip monitoring for ICD of E11.9 Type 2. blood sugar Yes [id number] Use as [facility] diagnostic 3-30 directed ity o f (ACCU-CHEK 00:00: for once a [place] LYDIA PLUS 00 day blood Medi melita TEST STRP) glucose Branch strip monitoring for ICD of E11.9 Type 2. blood sugar Yes [id number] Use as [facility] diagnostic 3-30 directed ity o f (ACCU-CHEK 00:00: for once a [place] LYDIA PLUS 00 day blood Medi melita TEST STRP) glucose Branch strip monitoring for ICD of E11.9 Type 2. blood sugar Yes [id number] Use as [facility] diagnostic 3-30 directed ity o f (ACCU-CHEK 00:00: for once a [place] LYDIA PLUS 00 day blood Medi melita TEST STRP) glucose Branch strip monitoring for ICD of E11.9 Type 2. blood sugar Yes [id number] Use as [facility] diagnostic 3-30 directed ity o f (ACCU-CHEK 00:00: for once a [place] LYDIA PLUS 00 day blood Medi melita TEST STRP) glucose Branch strip monitoring for ICD of E11.9 Type 2. lancets 31 2017- Yes Use as [facility]ive rs gauge Misc 2-21 directed ity o f 00:00: for once a [place] 00 day blood Medical glucose Branch monitoring for ICD code of E11.9 lancets 2016-03 Yes Use as Unive rs gauge Misc 2-21 directed ity o f 00:00: for once a [place] 00 day blood Medical glucose Branch monitoring for ICD code of E11.9 lancets 2016-03 Yes Use as Unive rs gauge Misc 2-21 directed ity o f 00:00: for once a [place] 00 day blood Medical glucose Branch monitoring for ICD code of E11.9 lancets 2016-03 Yes Use as Unive rs gauge Misc 2-21 directed ity o f 00:00: for once a [place] 00 day blood Medical glucose Branch monitoring for ICD code of E11.9 lancets 2016-03 Yes Use as Unive rs gauge Misc 2-21 directed ity o f 00:00: for once a [place] 00 day blood Medical glucose Branch monitoring for ICD code of E11.9 lancets 2016-03 Yes Use as Unive rs gauge Misc 2-21 directed ity o f 00:00: for once a [place] 00 day blood Medical glucose Branch monitoring for ICD code of E11.9 lancets 2016-03 Yes Use as Unive rs gauge Misc 2-21 directed ity o f 00:00: for once a [place] 00 day blood Medical glucose Branch monitoring for ICD code of E11.9 lancets 2016-03 Yes Use as Unive rs gauge Misc 2-21 directed ity o f 00:00: for once a [place] 00 day blood Medical glucose Branch monitoring for ICD code of E11.9 lancets 2016-03 Yes Use as Unive rs gauge Misc 2-21 directed ity o f 00:00: for once a [place] 00 day blood Medical glucose Branch monitoring for ICD code of E11.9 lancets 2016-03 Yes Use as Unive rs gauge Misc 2-21 directed ity o f 00:00: for once a [place] 00 day blood Medical glucose Branch monitoring for ICD code of E11.9 lancets 2016- Yes Use as Unive rs gauge Misc 2-21 directed ity o f 00:00: for once a [place] 00 day blood Medical glucose Branch monitoring for ICD code of E11.9 lancets 2016-03 Yes Use as Unive rs gauge Misc 2-21 directed ity o f 00:00: for once a [place] 00 day blood Medical glucose Branch monitoring for ICD code of E11.9 lancets 2016-03 Yes Use as Unive rs gauge Misc 2-21 directed ity o f 00:00: for once a [place] 00 day blood Medical glucose Branch monitoring for ICD code of E11.9 lancets 2016-03 Yes Use as Unive rs gauge Misc 2-21 directed ity o f 00:00: for once a [place] 00 day blood Medical glucose Branch monitoring for ICD code of E11.9 lancets 2016-03 Yes Use as Unive rs gauge Misc 2-21 directed ity o f 00:00: for once a [place] 00 day blood Medical glucose Branch monitoring for ICD code of E11.9 lancets 2016-03 Yes Use as Unive rs gauge Misc 2-21 directed ity o f 00:00: for once a [place] 00 day blood Medical glucose Branch monitoring for ICD code of E11.9 lancets 2016-03 Yes Use as Unive rs gauge Misc 2-21 directed ity o f 00:00: for once a [place] 00 day blood Medical glucose Branch monitoring for ICD code of E11.9 lancets 2016-03 Yes Use as Unive rs gauge Misc 2-21 directed ity o f 00:00: for once a [place] 00 day blood Medical glucose Branch monitoring for ICD code of E11.9 lancets 2016-03 Yes Use as Unive rs gauge Misc 2-21 directed ity o f 00:00: for once a [place] 00 day blood Medical glucose Branch monitoring for ICD code of E11.9 lancets 2016-03 Yes Use as Unive rs gauge Misc 2-21 directed ity o f 00:00: for once a [place] 00 day blood Medical glucose Branch monitoring for ICD code of E11.9 lancets 2016-03 Yes Use as Unive rs gauge Misc 2-21 directed ity o f 00:00: for once a [place] 00 day blood Medical glucose Branch monitoring for ICD code of E11.9 lancets 2016-03 Yes Use as Unive rs gauge Misc 2-21 directed ity o f 00:00: for once a [place] 00 day blood Medical glucose Branch monitoring for ICD code of E11.9 lancets 2016-03 Yes Use as Unive rs gauge Misc 2-21 directed ity o f 00:00: for once a [place] 00 day blood Medical glucose Branch monitoring for ICD code of E11.9 lancets 2016-03 Yes Use as Unive rs gauge Misc 2-21 directed ity o f 00:00: for once a [place] 00 day blood Medical glucose Branch monitoring for ICD code of E11.9 lancets 2016-03 Yes Use as Unive rs gauge Misc 2-21 directed ity o f 00:00: for once a [place] 00 day blood Medical glucose Branch monitoring for ICD code of E11.9 lancets 2016-03 Yes Use as Unive rs gauge Misc 2-21 directed ity o f 00:00: for once a [place] 00 day blood Medical glucose Branch monitoring for ICD code of E11.9 lancets 2016-03 Yes Use as Unive rs gauge Misc 2-21 directed ity o f 00:00: for once a [place] 00 day blood Medical glucose Branch monitoring for ICD code of E11.9 lancets 2016-03 Yes Use as Unive rs gauge Misc 2-21 directed ity o f 00:00: for once a 00 day blood Medical glucose Branch monitoring for ICD code of E11.9 nystatin nystatin 2015-03 No nystatin A zalea 03-29 [facility] 00:00: dic 00 Sports Medicin e vitamin D3 vitamin D3 2015-03 No vitamin D3 Pretty 2,000 2,000 1-03 2,000 [facility] unit-folic unit-folic 00:00: unit-folic dic acid 1 mg acid 1 mg 00 acid 1 mg Sports tablet tablet tablet Medicin e Zyrtec 10 Zyrtec 10 2015-03 No Zyrtec 10 Pretty mg tablet mg tablet 1-03 mg tablet [facility] 00:00: dic 00 Sports Medicin e Calcium Calcium 2015-03 No Calcium Azal ea Concentrate Concentrate 03 Concentrat [facility] 600 mg 600 mg 00:00: e 600 mg dic calcium calcium 00 calcium Sports (1,500 mg) (1,500 mg) (1,500 mg) Medicin tablet tablet tablet e nystatin nystatin 2015-03 No nystatin A zalea 03-29 [facility] 00:00: dic 00 Sports Medicin e vitamin D3 vitamin D3 2015-03 No vitamin D3 Pretty 2,000 2,000 1-03 2,000 [facility] unit-folic unit-folic 00:00: unit-folic dic acid 1 mg acid 1 mg 00 acid 1 mg Sports tablet tablet tablet Medicin e Zyrtec 10 Zyrtec 10 2015-03 No Zyrtec 10 Pretty mg tablet mg tablet 1-03 mg tablet [facility] 00:00: dic 00 Sports Medicin e Calcium Calcium 2015-03 No Calcium Azal ea Concentrate Concentrate -03 Concentrat [facility] 600 mg 600 mg 00:00: e 600 mg dic calcium calcium 00 calcium Sports (1,500 mg) (1,500 mg) (1,500 mg) Medicin tablet tablet tablet e nystatin nystatin 2015-03 No nystatin A zalea 03-29 [facility] 00:00: dic 00 Sports Medicin e vitamin D3 vitamin D3 2015-03 No vitamin D3 Pretty 2,000 2,000 1-03 2,000 [facility] unit-folic unit-folic 00:00: unit-folic dic acid 1 mg acid 1 mg 00 acid 1 mg Sports tablet tablet tablet Medicin e Zyrtec 10 Zyrtec 2015-03 No Zyrtec 10 Pretty mg tablet mg tablet 1-03 mg tablet [facility] 00:00: dic Sports Medicin e Calcium Calcium 2015-03 No Calcium Azal ea Concentrate Concentrate 03-29 Concentrat [facility] 600 mg 600 mg 00:00: e 600 mg dic calcium calcium 00 calcium Sports (1,500 mg) (1,500 mg) (1,500 mg) Medicin tablet tablet tablet e nystatin nystatin 2015-03 No nystatin A zalea 03-29 [facility] 00:00: dic 00 Sports Medicin e vitamin D3 vitamin D3 2015-03 No vitamin D3 Pretty 2,000 2,000 1-03 2,000 [facility] unit-folic unit-folic 00:00: unit-folic dic acid 1 mg acid 1 mg 00 acid 1 mg Sports tablet tablet tablet Medicin e Zyrtec 10 Zyrtec 10 2015-03 No Zyrtec 10 Pretty mg tablet mg tablet 1-03 mg tablet [facility] 00:00: dic 00 Sports Medicin e Calcium Calcium 2015-03 No Calcium Azal ea Concentrate Concentrate -03 Concentrat [facility] 600 mg 600 mg 00:00: e 600 mg dic calcium calcium 00 calcium Sports (1,500 mg) (1,500 mg) (1,500 mg) Medicin tablet tablet tablet e nystatin nystatin 2015-03 No nystatin A zalea 03-29 [facility] 00:00: dic 00 Sports Medicin e vitamin D3 vitamin D3 2015-03 No vitamin D3 Pretty 2,000 2,000 - 2,000 [facility] unit-folic unit-folic 00:00: unit-folic dic acid 1 mg acid 1 mg 00 acid 1 mg Sports tablet tablet tablet Medicin e Zyrtec 10 Zyrtec 10 2015-03 No Zyrtec 10 Pretty mg tablet mg tablet 1-03 mg tablet [facility] 00:00: dic 00 Sports Medicin e Calcium Calcium 2015-03 No Calcium Azal ea Concentrate Concentrate 03 Concentrat [facility] 600 mg 600 mg 00:00: e 600 mg dic calcium calcium 00 calcium Sports (1,500 mg) (1,500 mg) (1,500 mg) Medicin tablet tablet tablet e omeprazole omeprazole 2015-03 No omeprazole Pretty 20 mg 20 mg 0-24 20 mg [facility] capsule,del capsule,del 00:00: capsule,de dic ayed ayed 00 layed Sports release release release Medici n e amlodipine amlodipine 2015-03 No amlodipine Pretty 5 5 0-24 5 [facility] mg-benazepr mg-benazepr 00:00: mg-benazep dic il 20 mg il 20 mg 00 ril 20 mg Sp orts capsule capsule capsule Medici n e omeprazole omeprazole 2015-03 No omeprazole Pretty 20 mg 20 mg 0-24 20 mg [facility] capsule,del capsule,del 00:00: capsule,de dic ayed ayed 00 layed Sports release release release Medici n e amlodipine amlodipine 2015-03 No amlodipine Pretty 5 5 0-24 5 [facility] mg-benazepr mg-benazepr 00:00: mg-benazep dic il 20 mg il 20 mg 00 ril 20 mg Sp orts capsule capsule capsule Medici n e omeprazole omeprazole 2015-03 No omeprazole Pretty 20 mg 20 mg 0-24 20 mg [facility] capsule,del capsule,del 00:00: capsule,de dic ayed ayed 00 layed Sports release release release Medici n e amlodipine amlodipine 2015-03 No amlodipine Pretty 5 5 0-24 5 [facility] mg-benazepr mg-benazepr 00:00: mg-benazep dic il 20 mg il 20 mg 00 ril 20 mg Sp orts capsule capsule capsule Medici n e omeprazole omeprazole 2015-03 No omeprazole Pretty 20 mg 20 mg 0-24 20 mg [facility] capsule,del capsule,del 00:00: capsule,de dic ayed ayed 00 layed Sports release release release Medici n e amlodipine amlodipine 2015-03 No amlodipine Pretty 5 5 0-24 5 [facility] mg-benazepr mg-benazepr 00:00: mg-benazep dic il 20 mg il 20 mg 00 ril 20 mg Sp orts capsule capsule capsule Medici n e omeprazole omeprazole 2015-03 No omeprazole Pretty 20 mg 20 mg 0-24 20 mg [facility] capsule,del capsule,del 00:00: capsule,de dic ayed ayed 00 layed Sports release release release Medici n e amlodipine amlodipine 2015-03 No amlodipine Pretty 5 5 0-24 5 [facility] mg-benazepr mg-benazepr 00:00: mg-benazep dic il 20 mg il 20 mg 00 ril 20 mg Sp orts capsule capsule capsule Medici n e etodolac etodolac No etodolac Aza bonnie 500 mg 500 mg 500 mg [facility] tablet tablet tablet dic Sports Medicin e fluconazole fluconazole No fluconazol Pretty 150 mg 150 mg e 150 mg [facility] tablet TAKE tablet TAKE tablet dic 1 TABLET BY 1 TABLET BY TAKE 1 Sports MOUTH 1 MOUTH 1 TABLET BY Medi raghu TIME NOW TIME NOW MOUTH 1 e FOR 1 DOSE. FOR 1 DOSE. TIME NOW JULY REPEAT MAY REPEAT FOR 1 IN 3-4 DAYS IN 3-4 DAYS DOSE. JULY FOR 1 DOSE FOR 1 DOSE REPEAT IN NEEDED NEEDED 3-4 DAYS FOR 1 DOSE NEEDED gabapentin gabapentin No gabapentin Pretty 300 mg 300 mg 300 mg [facility] capsule RX capsule RX capsule RX dic by other MD by other MD by other Sports MD Medicin e lisinopril lisinopril No lisinopril Pretty 2.5 mg 2.5 mg 2.5 mg [facility] tablet tablet tablet dic Sports Medicin e lisinopril lisinopril No lisinopril Pretty 20 20 20 [facility] mg-hydrochl mg-hydrochl mg-hydroch dic orothiazide orothiazide lorothiazi Sports 12.5 mg 12.5 mg de 12.5 mg Med icin tablet tablet tablet e melatonin melatonin No melatonin Pretty RX by other RX by other RX by [facility] MD MD rizwana parekh Sports Medicin e mesalamine mesalamine No mesalamine Pretty 1.2 gram 1.2 gram 1.2 gram [facility] tablet,josemanuel tablet,josemanuel tablet,del dic yed release yed release ayed S ports TAKE 1 TAKE 1 release Medicin TABLET BY TABLET BY TAKE 1 e MOUTH EVERY MOUTH EVERY TABLET BY DAY FOR 7 DAY FOR 7 MOUTH DAYS AND DAYS AND EVERY DAY THEN TAKE 2 THEN TAKE 2 FOR 7 DAYS TABLET BY TABLET BY AND THEN MOUTH EVERY MOUTH EVERY TAKE 2 DAY DAY TABLET BY MOUTH EVERY DAY metoprolol metoprolol No metoprolol Pretty succinate succinate succinate [facility] ER 50 mg ER 50 mg ER 50 mg dic tablet,exte tablet,exte tablet,ext Sports nded nded ended Medicin release 24 release 24 release 24 e hr hr hr metoprolol metoprolol No metoprolol Pretty tartrate 50 tartrate 50 tartrate [facility] mg tablet mg tablet 50 mg dic tablet Sports Medicin e metronidazo metronidazo No metronidaz Pretty le 500 mg le 500 mg ole 500 mg [facility] tablet TAKE tablet TAKE tablet dic 1 TABLET BY 1 TABLET BY TAKE 1 Sports MOUTH EVERY MOUTH EVERY TABLET BY Medicin 8 HOURS 8 HOURS MOUTH e EVERY 8 HOURS omeprazole omeprazole No omeprazole Pretty 20 mg 20 mg 20 mg [facility] tablet,josemanuel tablet,josemanuel tablet,del dic yed release yed release ayed S ports release Medicin e omeprazole omeprazole No omeprazole Pretty 40 mg 40 mg 40 mg [facility] capsule,del capsule,del capsule,de dic ayed ayed layed Sports release release release Medici n e oseltamivir oseltamivir No oseltamivi Pretty 75 mg 75 mg r 75 mg [facility] capsule capsule capsule dic Sports Medicin e Osteo Osteo No Osteo Pretty Bi-Flex RX Bi-Flex RX Bi-Flex RX [facility] by other MD by other MD by other dic Sports Medicin e Suprep Suprep No Suprep Pretty Bowel Prep Bowel Prep Bowel Prep [facility] Kit 17.5 Kit 17.5 Kit 17.5 dic gram-3.13 gram-3.13 gram-3.13 Sports gram-1.6 gram-1.6 gram-1.6 Med icin gram oral gram oral gram oral e solution solution solution TAKE TAKE TAKE DIRECTED DIRECTED DIRECTED DAILY DAILY DAILY tramadol 50 tramadol 50 No tramadol Pretty mg tablet mg tablet 50 mg Orth ope RX by other RX by other tablet RX dic MD TINEO by other Sports Medicin e Xarelto 10 Xarelto 10 No Xarelto 10 Pretty mg tablet 1 mg tablet 1 mg tablet [facility] tablet by tablet by 1 tablet d ic mouth once mouth once by mouth Sports a day a day once a day Medicin e amlodipine amlodipine No amlodipine Pretty 5 mg tablet 5 mg tablet 5 mg [facility] tablet dic Sports Medicin e aspirin 81 aspirin 81 No aspirin 81 Pretty mg mg mg [facility] tablet,josemanuel tablet,josemanuel tablet,del dic yed release yed release ayed S ports RX by other RX by other release RX Medicin MD TINEO by other e atorvastati atorvastati No atorvastat Pretty n 20 mg n 20 mg in 20 mg [facility] pe tablet tablet tablet dic Sports Medicin e B-12 RX by B-12 RX by No B-12 RX by Pretty wagoner MD other other Ort hope dic Sports Medicin e BinaxNOW BinaxNOW No BinaxNOW Aza bonnie COVID-19 Ag COVID-19 Ag COVID-19 [facility] Self Test Self Test Ag Self di c kit TEST kit TEST Test kit Sports DIRECTED DIRECTED TEST Medi raghu TODAY TODAY DIRECTED e TODAY calcium RX calcium RX No calcium RX Pretty by other MD by other MD by other [facility] MD dic Sports Medicin e cetirizine cetirizine No cetirizine Pretty 5 mg tablet 5 mg tablet 5 mg [facility] TAKE 1 TAKE 1 tablet dic TABLET BY TABLET BY TAKE 1 Spo rts MOUTH EVERY MOUTH EVERY TABLET BY Medicin MORNING MORNING MOUTH e EVERY MORNING ciprofloxac ciprofloxac No ciprofloxa Pretty in 500 mg in 500 mg raghu 500 mg [facility] tablet TAKE tablet TAKE tablet dic 1 TABLET BY 1 TABLET BY TAKE 1 Sports MOUTH EVERY MOUTH EVERY TABLET BY Medicin 12 HOURS 12 HOURS MOUTH e EVERY 12 HOURS diflupredna diflupredna No diflupredn Pretty te 0.05 % te 0.05 % ate 0.05 % [facility] eye drops eye drops eye drops dic INSTILL ONE INSTILL ONE INSTILL Sports (1) DROP(S) (1) DROP(S) ONE (1) Medicin IN EACH EYE IN EACH EYE DROP(S) IN e EVERY 2 EVERY 2 EACH EYE HOURS FOR 3 HOURS FOR 3 EVERY 2 DAYS, THEN DAYS, THEN HOURS FOR INSTILL ONE INSTILL ONE 3 DAYS, (1) DROP (1) DROP THEN FOUR TIMES FOUR TIMES INSTILL A DAY. A DAY. ONE (1) DROP FOUR TIMES A DAY. etodolac etodolac No etodolac Aza bonnie 500 mg 500 mg 500 mg [facility] tablet tablet tablet dic Sports Medicin e fluconazole fluconazole No fluconazol Pretty 150 mg 150 mg e 150 mg [facility] tablet TAKE tablet TAKE tablet dic 1 TABLET BY 1 TABLET BY TAKE 1 Sports MOUTH 1 MOUTH 1 TABLET BY Medi raghu TIME NOW TIME NOW MOUTH 1 e FOR 1 DOSE. FOR 1 DOSE. TIME NOW MAY REPEAT MAY REPEAT FOR 1 IN 3-4 DAYS IN 3-4 DAYS DOSE. MAY FOR 1 DOSE FOR 1 DOSE REPEAT IN NEEDED NEEDED 3-4 DAYS FOR 1 DOSE NEEDED gabapentin gabapentin No gabapentin Pretty 300 mg 300 mg 300 mg [facility] capsule RX capsule RX capsule RX dic by other MD by other MD by other Sports Medicin e lisinopril lisinopril No lisinopril Pretty 2.5 mg 2.5 mg 2.5 mg [facility] tablet tablet tablet dic Sports Medicin e lisinopril lisinopril No lisinopril Pretty 20 20 20 [facility] mg-hydrochl mg-hydrochl mg-hydroch dic orothiazide orothiazide lorothiazi Sports 12.5 mg 12.5 mg de 12.5 mg Med icin tablet tablet tablet e melatonin melatonin No melatonin Pretty RX by other RX by other RX by [facility] MD TINEO other dic Sports Medicin e mesalamine mesalamine No mesalamine Pretty 1.2 gram 1.2 gram 1.2 gram [facility] tablet,josemanuel tablet,josemanuel tablet,del dic yed release yed release ayed S ports TAKE 1 TAKE 1 release Medicin TABLET BY TABLET BY TAKE 1 e MOUTH EVERY MOUTH EVERY TABLET BY DAY FOR 7 DAY FOR 7 MOUTH DAYS AND DAYS AND EVERY DAY THEN TAKE 2 THEN TAKE 2 FOR 7 DAYS TABLET BY TABLET BY AND THEN MOUTH EVERY MOUTH EVERY TAKE 2 DAY DAY TABLET BY MOUTH EVERY DAY metoprolol metoprolol No metoprolol Pretty succinate succinate succinate [facility] ER 50 mg ER 50 mg ER 50 mg dic tablet,exte tablet,exte tablet,ext Sports nded nded ended Medicin release 24 release 24 release 24 e hr hr hr metoprolol metoprolol No metoprolol Pretty tartrate 50 tartrate 50 tartrate [facility] mg tablet mg tablet 50 mg dic tablet Sports Medicin e metronidazo metronidazo No metronidaz Pretty le 500 mg le 500 mg ole 500 mg [facility] tablet TAKE tablet TAKE tablet dic 1 TABLET BY 1 TABLET BY TAKE 1 Sports MOUTH EVERY MOUTH EVERY TABLET BY Medicin 8 HOURS 8 HOURS MOUTH e EVERY 8 HOURS nystatin nystatin No nystatin Aza bonnie 100,000 100,000 100,000 [facility] e unit/mL unit/mL unit/mL dic oral oral oral Sports suspension suspension suspension Medicin SWISH AND SWISH AND SWISH AND e SWALLOW OR SWALLOW OR SWALLOW OR SWISH AND SWISH AND SWISH AND SPIT WITH SPIT WITH SPIT WITH 10 ML BY 10 ML BY 10 ML BY MOUTH FOUR MOUTH FOUR MOUTH FOUR TIMES DAILY TIMES DAILY TIMES FOR 10 FOR 10 DAILY FOR DAYS. DAYS. 10 DAYS. omeprazole omeprazole No omeprazole Pretty 20 mg 20 mg 20 mg [facility] tablet,josemanuel tablet,josemanuel tablet,del dic yed release yed release ayed S ports release Medicin e omeprazole omeprazole No omeprazole Pretty 40 mg 40 mg 40 mg [facility] capsule,del capsule,del capsule,de dic ayed ayed layed Sports release release release Medici n e oseltamivir oseltamivir No oseltamivi Pretty 75 mg 75 mg r 75 mg [facility] capsule capsule capsule dic Sports Medicin e Osteo Osteo No Osteo Pretty Bi-Flex RX Bi-Flex RX Bi-Flex RX [facility] by other MD by other MD by other dic Sports Medicin e Suprep Suprep No Suprep Pretty Bowel Prep Bowel Prep Bowel Prep [facility] Kit 17.5 Kit 17.5 Kit 17.5 dic gram-3.13 gram-3.13 gram-3.13 Sports gram-1.6 gram-1.6 gram-1.6 Med icin gram oral gram oral gram oral e solution solution solution TAKE TAKE TAKE DIRECTED DIRECTED DIRECTED DAILY DAILY DAILY tramadol 50 tramadol 50 No tramadol Pretty mg tablet mg tablet 50 mg [facility] RX by other RX by other tablet RX dic MD TINEO by other Sports MD Gillian diaz Xarelto 10 Xarelto 10 No Xarelto 10 Pretty mg tablet 1 mg tablet 1 mg tablet [facility] tablet by tablet by 1 tablet d ic mouth once mouth once by mouth Sports a day a day once a day Medicin e amlodipine amlodipine No amlodipine Pretty 5 mg tablet 5 mg tablet 5 mg [facility] tablet dic Sports Medicin e aspirin 81 aspirin 81 No aspirin 81 Pretty mg mg mg [facility] tablet,josemanuel tablet,josemanuel tablet,del dic yed release yed release ayed S ports RX by other RX by other release RX Gillian TINEO MD by other e atorvastaakiko atorvastati No atorvastat Pretty n 20 mg n 20 mg in 20 mg [facility] pe tablet tablet tablet dic [employer] [facility] [employer] Medicin e B-12 RX by B-12 RX by No B-12 RX by Pretty wagoner MD other other [facility] dic Sports Medicin e BinaxNOW BinaxNOW No BinaxNOW Aza bonnie COVID-19 Ag COVID-19 Ag COVID-19 [facility] Self Test Self Test Ag Self di c kit TEST kit TEST Test kit Sports DIRECTED DIRECTED TEST Medi raghu TODAY TODAY DIRECTED e TODAY calcium RX calcium RX No calcium RX Pretty by other MD by other MD by other [facility] dic Sports Medicin e cetirizine cetirizine No cetirizine Pretty 5 mg tablet 5 mg tablet 5 mg [facility] TAKE 1 TAKE 1 tablet dic TABLET BY TABLET BY TAKE 1 Spo rts MOUTH EVERY MOUTH EVERY TABLET BY Medicin MORNING MORNING MOUTH e EVERY MORNING ciprofloxac ciprofloxac No ciprofloxa Pretty in 500 mg in 500 mg raghu 500 mg [facility] tablet TAKE tablet TAKE tablet dic 1 TABLET BY 1 TABLET BY TAKE 1 Sports MOUTH EVERY MOUTH EVERY TABLET BY Medicin 12 HOURS 12 HOURS MOUTH e EVERY 12 HOURS diflupredna diflupredna No diflupredn Pretty te 0.05 % te 0.05 % ate 0.05 % [facility] eye drops eye drops eye drops dic INSTILL ONE INSTILL ONE INSTILL Sports (1) DROP(S) (1) DROP(S) ONE (1) Medicin IN EACH EYE IN EACH EYE DROP(S) IN e EVERY 2 EVERY 2 EACH EYE HOURS FOR 3 HOURS FOR 3 EVERY 2 DAYS, THEN DAYS, THEN HOURS FOR INSTILL ONE INSTILL ONE 3 DAYS, (1) DROP (1) DROP THEN FOUR TIMES FOUR TIMES INSTILL A DAY. A DAY. ONE (1) DROP FOUR TIMES A DAY. etodolac etodolac No etodolac Aza bonnie 500 mg 500 mg 500 mg [facility] tablet tablet tablet dic Sports Medicin e fluconazole fluconazole No fluconazol Pretty 150 mg 150 mg e 150 mg [facility] tablet TAKE tablet TAKE tablet dic 1 TABLET BY 1 TABLET BY TAKE 1 Sports MOUTH 1 MOUTH 1 TABLET BY Medi raghu TIME NOW TIME NOW MOUTH 1 e FOR 1 DOSE. FOR 1 DOSE. TIME NOW MAY REPEAT MAY REPEAT FOR 1 IN 3-4 DAYS IN 3-4 DAYS DOSE. MAY FOR 1 DOSE FOR 1 DOSE REPEAT IN NEEDED NEEDED 3-4 DAYS FOR 1 DOSE NEEDED gabapentin gabapentin No gabapentin Pretty 300 mg 300 mg 300 mg [facility] capsule RX capsule RX capsule RX dic by other MD by other MD by other Sports Medicin e lisinopril lisinopril No lisinopril Pretty 2.5 mg 2.5 mg 2.5 mg [facility] tablet tablet tablet dic Sports Medicin e lisinopril lisinopril No lisinopril Pretty 20 20 20 [facility] mg-hydrochl mg-hydrochl mg-hydroch dic orothiazide orothiazide lorothiazi Sports 12.5 mg 12.5 mg de 12.5 mg Med icin tablet tablet tablet e melatonin melatonin No melatonin Pretty RX by other RX by other RX by [facility] TINEO MD other dic Sports Medicin e mesalamine mesalamine No mesalamine Pretty 1.2 gram 1.2 gram 1.2 gram [facility] tablet,josemanuel tablet,josemanuel tablet,del dic yed release yed release ayed S ports TAKE 1 TAKE 1 release Medicin TABLET BY TABLET BY TAKE 1 e MOUTH EVERY MOUTH EVERY TABLET BY DAY FOR 7 DAY FOR 7 MOUTH DAYS AND DAYS AND EVERY DAY THEN TAKE 2 THEN TAKE 2 FOR 7 DAYS TABLET BY TABLET BY AND THEN MOUTH EVERY MOUTH EVERY TAKE 2 DAY DAY TABLET BY MOUTH EVERY DAY metoprolol metoprolol No metoprolol Pretty succinate succinate succinate [facility] ER 50 mg ER 50 mg ER 50 mg dic tablet,exte tablet,exte tablet,ext Sports nded nded ended Medicin release 24 release 24 release 24 e hr hr hr metoprolol metoprolol No metoprolol Pretty tartrate 50 tartrate 50 tartrate [facility] mg tablet mg tablet 50 mg dic tablet Sports Medicin e metronidazo metronidazo No metronidaz Pretty le 500 mg le 500 mg ole 500 mg [facility] tablet TAKE tablet TAKE tablet dic 1 TABLET BY 1 TABLET BY TAKE 1 Sports MOUTH EVERY MOUTH EVERY TABLET BY Medicin 8 HOURS 8 HOURS MOUTH e EVERY 8 HOURS nystatin nystatin No nystatin Aza bonnie 100,000 100,000 100,000 [facility] e unit/mL unit/mL unit/mL dic oral oral oral Sports suspension suspension suspension Medicin SWISH AND SWISH AND SWISH AND e SWALLOW OR SWALLOW OR SWALLOW OR SWISH AND SWISH AND SWISH AND SPIT WITH SPIT WITH SPIT WITH 10 ML BY 10 ML BY 10 ML BY MOUTH FOUR MOUTH FOUR MOUTH FOUR TIMES DAILY TIMES DAILY TIMES FOR 10 FOR 10 DAILY FOR DAYS. DAYS. 10 DAYS. omeprazole omeprazole No omeprazole Pretty 20 mg 20 mg 20 mg [facility] tablet,josemanuel tablet,josemanuel tablet,del dic yed release yed release ayed S ports release Medicin e omeprazole omeprazole No omeprazole Pretty 40 mg 40 mg 40 mg [facility] capsule,del capsule,del capsule,de dic ayed ayed layed Sports release release release Medici n e oseltamivir oseltamivir No oseltamivi Pretty 75 mg 75 mg r 75 mg [facility] capsule capsule capsule dic Sports Medicin e Osteo Osteo No Osteo Pretty Bi-Flex RX Bi-Flex RX Bi-Flex RX [facility] by other MD by other MD by other dic Sports Medicin e Suprep Suprep No Suprep Pretty Bowel Prep Bowel Prep Bowel Prep [facility] Kit 17.5 Kit 17.5 Kit 17.5 dic gram-3.13 gram-3.13 gram-3.13 Sports gram-1.6 gram-1.6 gram-1.6 Med icin gram oral gram oral gram oral e solution solution solution TAKE TAKE TAKE DIRECTED DIRECTED DIRECTED DAILY DAILY DAILY tramadol 50 tramadol 50 No tramadol Pretty mg tablet mg tablet 50 mg [facility] RX by other RX by other tablet RX dic MD TINEO by other Sports Medicin e Xarelto 10 Xarelto 10 No Xarelto 10 Pretty mg tablet 1 mg tablet 1 mg tablet [facility] tablet by tablet by 1 tablet d ic mouth once mouth once by mouth Sports a day a day once a day Medicin e acetaminoph acetaminoph No acetaminop Pretty en 300 en 300 hen 300 [facility] mg-codeine mg-codeine mg-codeine dic 30 mg 30 mg 30 mg Sports tablet TAKE tablet TAKE tablet Medicin 1 TABLET BY 1 TABLET BY TAKE 1 e MOUTH EVERY MOUTH EVERY TABLET BY 4 HOURS 4 HOURS MOUTH NEEDED FOR NEEDED FOR EVERY 4 MILD PAIN MILD PAIN HOURS OR ACUTE OR ACUTE NEEDED FOR PAIN PAIN MILD PAIN OR ACUTE PAIN amlodipine amlodipine No amlodipine Pretty 5 mg tablet 5 mg tablet 5 mg [facility] tablet dic [facility] aspirin 81 aspirin 81 No aspirin 81 Pretty mg mg mg [facility] tablet,josemanuel tablet,josemanuel tablet,del dic yed release yed release ayed S ports RX by other RX by other release RX Medicin MD by other e atorvastaakiko atorvastati No atorvastat Pretty n 20 mg n 20 mg in 20 mg Orth[facility] pe tablet tablet tablet dic Sports Medicin e B-12 RX by B-12 RX by No B-12 RX by Pretty wagoner MD other other [facility] dic Sports Medicin e BinaxNOW BinaxNOW No BinaxNOW Aza bonnie COVID-19 Ag COVID-19 Ag COVID-19 [facility] Self Test Self Test Ag Self di c kit TEST kit TEST Test kit Sports DIRECTED DIRECTED TEST Medi raghu TODAY TODAY DIRECTED e TODAY calcium RX calcium RX No calcium RX Pretty by other by other MD by other [facility] MD dic [facility] e cetirizine cetirizine No cetirizine Pretty 5 mg tablet 5 mg tablet 5 mg [facility] TAKE 1 TAKE 1 tablet dic TABLET BY TABLET BY TAKE 1 Spo rts MOUTH EVERY MOUTH EVERY TABLET BY Medicin MORNING MORNING MOUTH e EVERY MORNING ciprofloxac ciprofloxac No ciprofloxa Pretty in 500 mg in 500 mg raghu 500 mg [facility] tablet TAKE tablet TAKE tablet dic 1 TABLET BY 1 TABLET BY TAKE 1 Sports MOUTH EVERY MOUTH EVERY TABLET BY Medicin 12 HOURS 12 HOURS MOUTH e EVERY 12 HOURS diflupredna diflupredna No diflupredn Pretty te 0.05 % te 0.05 % ate 0.05 % [facility] eye drops eye drops eye drops dic INSTILL ONE INSTILL ONE INSTILL Sports (1) DROP(S) (1) DROP(S) ONE (1) Medicin IN EACH EYE IN EACH EYE DROP(S) IN e EVERY 2 EVERY 2 EACH EYE HOURS FOR 3 HOURS FOR 3 EVERY 2 DAYS, THEN DAYS, THEN HOURS FOR INSTILL ONE INSTILL ONE 3 DAYS, (1) DROP (1) DROP THEN FOUR TIMES FOUR TIMES INSTILL A DAY. A DAY. ONE (1) DROP FOUR TIMES A DAY. etodolac etodolac No etodolac Aza bonnie 500 mg 500 mg 500 mg [facility] tablet tablet tablet dic [facility] Medicin e fluconazole fluconazole No fluconazol Pretty 150 mg 150 mg e 150 mg [facility] tablet TAKE tablet TAKE tablet dic 1 TABLET BY 1 TABLET BY TAKE 1 Sports MOUTH 1 MOUTH 1 TABLET BY Medi raghu TIME NOW TIME NOW MOUTH 1 e FOR 1 DOSE. FOR 1 DOSE. TIME NOW JULY REPEAT MAY REPEAT FOR 1 IN 3-4 DAYS IN 3-4 DAYS DOSE. MAY FOR 1 DOSE FOR 1 DOSE REPEAT IN NEEDED NEEDED 3-4 DAYS FOR 1 DOSE NEEDED gabapentin gabapentin No gabapentin Pretty 300 mg 300 mg 300 mg [facility] capsule RX capsule RX capsule RX dic by other MD by other MD by other Sports Medicin e lisinopril lisinopril No lisinopril Pretty 2.5 mg 2.5 mg 2.5 mg [facility] tablet tablet tablet dic [facility] Medicin e lisinopril lisinopril No lisinopril Pretty 20 20 20 [facility] mg-hydrochl mg-hydrochl mg-hydroch dic orothiazide orothiazide lorothiazi Sports 12.5 mg 12.5 mg de 12.5 mg Med icin tablet tablet tablet e Medrol Medrol No 1dose Medrol Pretty (Chip) 4 mg (Chip) 4 mg pk(s) (Chip) 4 mg [facility] tablets in tablets in tablets in dic a dose pack a dose pack a dose Sports Take 1 dose Take 1 dose pack Take Medicin pk by oral pk by oral 1 dose pk e route as route as by oral directed. directed. route as directed. melatonin melatonin No melatonin Pretty RX by other RX by other RX by Jassi TINEO MD other dic Sports Medicin e mesalamine mesalamine No mesalamine Pretty 1.2 gram 1.2 gram 1.2 gram Ort hope tablet,josemanuel tablet,josemanuel tablet,del dic yed release yed release ayed S ports TAKE 1 TAKE 1 release Medicin TABLET BY TABLET BY TAKE 1 e MOUTH EVERY MOUTH EVERY TABLET BY DAY FOR 7 DAY FOR 7 MOUTH DAYS AND DAYS AND EVERY DAY THEN TAKE 2 THEN TAKE 2 FOR 7 DAYS TABLET BY TABLET BY AND THEN MOUTH EVERY MOUTH EVERY TAKE 2 DAY DAY TABLET BY MOUTH EVERY DAY metoprolol metoprolol No metoprolol Pretty succinate succinate succinate [facility] ER 50 mg ER 50 mg ER 50 mg dic tablet,exte tablet,exte tablet,ext Sports nded nded ended Medicin release 24 release 24 release 24 e hr hr hr metoprolol metoprolol No metoprolol Pretty tartrate 50 tartrate 50 tartrate [facility] mg tablet mg tablet 50 mg dic tablet Sports Medicin e metronidazo metronidazo No metronidaz Pretty le 500 mg le 500 mg ole 500 mg [facility] tablet TAKE tablet TAKE tablet dic 1 TABLET BY 1 TABLET BY TAKE 1 Sports MOUTH EVERY MOUTH EVERY TABLET BY Medicin 8 HOURS 8 HOURS MOUTH e EVERY 8 HOURS nystatin nystatin No nystatin Aza bonnie 100,000 100,000 100,000 [facility] e unit/mL unit/mL unit/mL dic oral oral oral Sports suspension suspension suspension Medicin SWISH AND SWISH AND SWISH AND e SWALLOW OR SWALLOW OR SWALLOW OR SWISH AND SWISH AND SWISH AND SPIT WITH SPIT WITH SPIT WITH 10 ML BY 10 ML BY 10 ML BY MOUTH FOUR MOUTH FOUR MOUTH FOUR TIMES DAILY TIMES DAILY TIMES FOR 10 FOR 10 DAILY FOR DAYS. DAYS. 10 DAYS. omeprazole omeprazole No omeprazole Pretty 20 mg 20 mg 20 mg [facility] tablet,josemanuel tablet,josemanuel tablet,del dic yed release yed release ayed S ports release Medicin e omeprazole omeprazole No omeprazole Pretty 40 mg 40 mg 40 mg [facility] capsule,del capsule,del capsule,de dic ayed ayed layed Sports release release release Medici n e oseltamivir oseltamivir No oseltamivi Pretty 75 mg 75 mg r 75 mg [facility] capsule capsule capsule dic Sports Medicin e Osteo Osteo No Osteo Pretty Bi-Flex RX Bi-Flex RX Bi-Flex RX [facility] by other by other MD by other dic MD Sports Medicin e Suprep Suprep No Suprep Pretty Bowel Prep Bowel Prep Bowel Prep [facility] Kit 17.5 Kit 17.5 Kit 17.5 dic gram-3.13 gram-3.13 gram-3.13 Sports gram-1.6 gram-1.6 gram-1.6 Med icin gram oral gram oral gram oral e solution solution solution TAKE TAKE TAKE DIRECTED DIRECTED DIRECTED DAILY DAILY DAILY tramadol 50 tramadol 50 No tramadol Pretty mg tablet mg tablet 50 mg Orth ope RX by other RX by other tablet RX dic MD by other Sports MD Medicin e Xarelto 10 Xarelto 10 No Xarelto 10 Pretty mg tablet 1 mg tablet 1 mg tablet [facility] tablet by tablet by 1 tablet d ic mouth once mouth once by mouth Sports a day a day once a day Medicin e amlodipine amlodipine No amlodipine Pretty 5 mg tablet 5 mg tablet 5 mg [facility] tablet dic Sports Medicin e aspirin 81 aspirin 81 No aspirin 81 Pretty mg mg mg [facility] tablet,josemanuel tablet,josemanuel tablet,del dic yed release yed release ayed S ports RX by other RX by other release RX Medicin MD TINEO by other e atorvastati atorvastati No atorvastat Pretty n 20 mg n 20 mg in 20 mg [facility] pe tablet tablet tablet dic Sports Medicin e B-12 RX by B-12 RX by No B-12 RX by Pretty wagoner MD other other Ort iqra dic Sports Medicin e BinaxNOW BinaxNOW No BinaxNOW Aza bonnie COVID-19 Ag COVID-19 Ag COVID-19 [facility] Self Test Self Test Ag Self di c kit TEST kit TEST Test kit Sports DIRECTED DIRECTED TEST Medi raghu TODAY TODAY DIRECTED e TODAY calcium RX calcium RX No calcium RX Pretty by other by other MD by other [facility] MD dic Sports Medicin e cetirizine cetirizine No cetirizine Pretty 5 mg tablet 5 mg tablet 5 mg [facility] TAKE 1 TAKE 1 tablet dic TABLET BY TABLET BY TAKE 1 Spo rts MOUTH EVERY MOUTH EVERY TABLET BY Medicin DAY DAY MOUTH e EVERY DAY ciprofloxac ciprofloxac No ciprofloxa Pretty in 500 mg in 500 mg raghu 500 mg [facility] tablet TAKE tablet TAKE tablet dic 1 TABLET BY 1 TABLET BY TAKE 1 Sports MOUTH EVERY MOUTH EVERY TABLET BY Medicin 12 HOURS 12 HOURS MOUTH e EVERY 12 HOURS diflupredna diflupredna No diflupredn Pretty te 0.05 % te 0.05 % ate 0.05 % [facility] eye drops eye drops eye drops dic INSTILL ONE INSTILL ONE INSTILL Sports (1) DROP(S) (1) DROP(S) ONE (1) Medicin IN EACH EYE IN EACH EYE DROP(S) IN e EVERY 2 EVERY 2 EACH EYE HOURS FOR 3 HOURS FOR 3 EVERY 2 DAYS, THEN DAYS, THEN HOURS FOR INSTILL ONE INSTILL ONE 3 DAYS, (1) DROP (1) DROP THEN FOUR TIMES FOUR TIMES INSTILL A DAY. A DAY. ONE (1) DROP FOUR TIMES A DAY. etodolac etodolac No etodolac Aza bonnie 500 mg 500 mg 500 mg [facility] tablet tablet tablet dic [facility] Medicin e fluconazole fluconazole No fluconazol Pretty 150 mg 150 mg e 150 mg [facility] tablet TAKE tablet TAKE tablet dic 1 TABLET BY 1 TABLET BY TAKE 1 Sports MOUTH 1 MOUTH 1 TABLET BY Medi raghu TIME NOW TIME NOW MOUTH 1 e FOR 1 DOSE. FOR 1 DOSE. TIME NOW MAY REPEAT MAY REPEAT FOR 1 IN 3-4 DAYS IN 3-4 DAYS DOSE. MAY FOR 1 DOSE FOR 1 DOSE REPEAT IN NEEDED NEEDED 3-4 DAYS FOR 1 DOSE NEEDED gabapentin gabapentin No gabapentin Pretty 300 mg 300 mg 300 mg [facility] capsule RX capsule RX capsule RX dic by other MD by other MD by other Sports Medicin e lisinopril lisinopril No lisinopril Pretty 2.5 mg 2.5 mg 2.5 mg [facility] tablet tablet tablet dic [facility] Medicin e lisinopril lisinopril No lisinopril Pretty 20 20 20 [facility] mg-hydrochl mg-hydrochl mg-hydroch dic orothiazide orothiazide lorothiazi Sports 12.5 mg 12.5 mg de 12.5 mg Med icin tablet tablet tablet e melatonin melatonin No melatonin Pretty RX by other RX by other RX by [facility] MD other MD dic Sports Medicin e mesalamine mesalamine No mesalamine Pretty 1.2 gram 1.2 gram 1.2 gram Ort hope tablet,josemanuel tablet,josemanuel tablet,del dic yed release yed release ayed S ports TAKE 1 TAKE 1 release Medicin TABLET BY TABLET BY TAKE 1 e MOUTH EVERY MOUTH EVERY TABLET BY DAY FOR 7 DAY FOR 7 MOUTH DAYS AND DAYS AND EVERY DAY THEN TAKE 2 THEN TAKE 2 FOR 7 DAYS TABLET BY TABLET BY AND THEN MOUTH EVERY MOUTH EVERY TAKE 2 DAY DAY TABLET BY MOUTH EVERY DAY metoprolol metoprolol No metoprolol Pretty succinate succinate succinate [facility] ER 50 mg ER 50 mg ER 50 mg dic tablet,exte tablet,exte tablet,ext Sports nded nded ended Medicin release 24 release 24 release 24 e hr hr hr metoprolol metoprolol No metoprolol Pretty tartrate 50 tartrate 50 tartrate [facility] mg tablet mg tablet 50 mg dic tablet Sports Medicin e metronidazo metronidazo No metronidaz Pretty le 500 mg le 500 mg ole 500 mg [facility] tablet TAKE tablet TAKE tablet dic 1 TABLET BY 1 TABLET BY TAKE 1 Sports MOUTH EVERY MOUTH EVERY TABLET BY Medicin 8 HOURS 8 HOURS MOUTH e EVERY 8 HOURS omeprazole omeprazole No omeprazole Pretty 20 mg 20 mg 20 mg [facility] tablet,josemanuel tablet,ojsemanuel tablet,del dic yed release yed release ayed S ports release Medicin e omeprazole omeprazole No omeprazole Pretty 40 mg 40 mg 40 mg [facility] capsule,del capsule,del capsule,de dic ayed ayed layed Sports release release release Medici n e oseltamivir oseltamivir No oseltamivi Pretty 75 mg 75 mg r 75 mg [facility] capsule capsule capsule dic Sports Medicin e Osteo Osteo No Osteo Pretty Bi-Flex RX Bi-Flex RX Bi-Flex RX [facility] by other MD by other MD by other dic Sports Medicin e Suprep Suprep No Suprep Pretty Bowel Prep Bowel Prep Bowel Prep [facility] Kit 17.5 Kit 17.5 Kit 17.5 dic gram-3.13 gram-3.13 gram-3.13 Sports gram-1.6 gram-1.6 gram-1.6 Med icin gram oral gram oral gram oral e solution solution solution TAKE TAKE TAKE DIRECTED DIRECTED DIRECTED DAILY DAILY DAILY tramadol 50 tramadol 50 No tramadol Pretty mg tablet mg tablet 50 mg Orth ope RX by other RX by other tablet RX dic MD by other Sports Medicin e Xarelto 10 Xarelto 10 No Xarelto 10 Pretty mg tablet 1 mg tablet 1 mg tablet [facility] tablet by tablet by 1 tablet d ic mouth once mouth once by mouth Sports a day a day once a day Medicin e amlodipine amlodipine No amlodipine Pretty 5 mg tablet 5 mg tablet 5 mg [facility] tablet dic Sports Medicin e aspirin 81 aspirin 81 No aspirin 81 Pretty mg mg mg [facility] tablet,josemanuel tablet,josemanuel tablet,del dic yed release yed release ayed S ports RX by other RX by other release RX Medicin MD TINEO by other e atorvastaakiko atorvastati No atorvastat Pretty n 20 mg n 20 mg in 20 mg Orth[facility] pe tablet tablet tablet dic Sports Medicin e B-12 RX by B-12 RX by No B-12 RX by Pretty wagoner MD other MD other MD Ort hope dic Sports Medicin e BinaxNOW BinaxNOW No BinaxNOW Aza bonnie COVID-19 Ag COVID-19 Ag COVID-19 [facility] Self Test Self Test Ag Self di c kit TEST kit TEST Test kit Sports DIRECTED DIRECTED TEST Medi raghu TODAY TODAY DIRECTED e TODAY calcium RX calcium RX No calcium RX Pretty by other by other MD by other [facility] dic Sports Medicin e cetirizine cetirizine No cetirizine Pretty 5 mg tablet 5 mg tablet 5 mg [facility] TAKE 1 TAKE 1 tablet dic TABLET BY TABLET BY TAKE 1 Spo rts MOUTH EVERY MOUTH EVERY TABLET BY Medicin DAY DAY MOUTH e EVERY DAY ciprofloxac ciprofloxac No ciprofloxa Pretty in 500 mg in 500 mg raghu 500 mg [facility] tablet TAKE tablet TAKE tablet dic 1 TABLET BY 1 TABLET BY TAKE 1 Sports MOUTH EVERY MOUTH EVERY TABLET BY Medicin 12 HOURS 12 HOURS MOUTH e EVERY 12 HOURS diflupredna diflupredna No diflupredn Pretty te 0.05 % te 0.05 % ate 0.05 % [facility] eye drops eye drops eye drops dic INSTILL ONE INSTILL ONE INSTILL Sports (1) DROP(S) (1) DROP(S) ONE (1) Medicin IN EACH EYE IN EACH EYE DROP(S) IN e EVERY 2 EVERY 2 EACH EYE HOURS FOR 3 HOURS FOR 3 EVERY 2 DAYS, THEN DAYS, THEN HOURS FOR INSTILL ONE INSTILL ONE 3 DAYS, (1) DROP (1) DROP THEN FOUR TIMES FOUR TIMES INSTILL A DAY. A DAY. ONE (1) DROP FOUR TIMES A DAY. Immunizations Ordered Filled Immunization Date Status Comments [facility] e Immunization Name Name Influenza Virus 2021-12-14 Completed [facility] Influenza Virus 2021-12-14 Completed [facility] 65[facility] Influenza Virus 2021-12-14 Completed [facility]:00[facility] 65+ Influenza Virus 2021-12-14 Completed [facility] 00:00:[facility] 65+ Influenza Virus 2021-12-14 Completed [facility] Vacc[facility] 00:00:[facility] 65+ Influenza Virus 2021-12-14 Completed [facility] 00:00:[facility] 65+ Influenza Virus 2021-12-14 Completed [facility] 00:00:[facility] 65+ Influenza Virus 2021-12-14 Completed [facility] Vacc[facility] 00:00:[facility] 65+ Influenza Virus 2021-12-14 Completed [facility] Vaccine,[facility] 00:00:[facility] 65+ Influenza Virus 2021-12-14 Completed [facility] Vacc[facility] 00:00:[facility] 65+ Influenza Virus 2021-12-14 Completed [facility] Vacc[facility],quad 00:00:[facility] 65+ Influenza Virus 2021-12-14 Completed [facility] Vaccine,quad 00:00:[facility] 65+ Influenza Virus 2021-12-14 Completed [facility] Vaccine,quad 00:00:00 [facility] 65+ Influenza Virus 2021-12-14 Completed [facility] Vaccine,quad 00:00:00 [facility] 65+ Influenza Virus 2021-12-14 Completed [facility] Vaccine,quad 00:00:00 [facility] 65+ Influenza Virus 2021-12-14 Completed [facility] Vaccine,quad 00:00:00 [facility]+ Influenza Virus 2021-12-14 Completed [facility] Vaccine,quad 00:00:00 [facility]+ Influenza Virus 2021-12-14 Completed [facility] Vaccine,quad 00:00:00 [facility] 65+ Influenza Virus 2021-12-14 Completed [facility] Vaccine,quad 00:00:00 [facility] 65+ Influenza Virus 2021-12-14 Completed [facility] Vaccine,quad 00:00:00 [facility]+ Influenza Virus 2021-12-14 Completed [facility] Vaccine,quad 00:00:00 [facility]+ Influenza Virus 2021-12-14 Completed [facility] Vaccine,quad 00:00:00 [facility] SARS-COV-2 COVID-19 2021-01-27 Completed [facility] of PFIZER VACCINE 00:00:00 [facility] SARS-COV-2 COVID-19 2021-01-27 Completed Unive rsity of PFIZER VACCINE 00:00:00 [facility] SARS-COV-2 COVID-19 2021-01-27 Completed Unive rsity of PFIZER VACCINE 00:00:00 [facility] SARS-COV-2 COVID-19 2021-01-27 Completed [facility] rs[facility] of PFIZER VACCINE 00:00:00 [facility] SARS-COV-2 COVID-19 2021-01-27 Completed [facility] rs[facility] of PFIZER VACCINE 00:00:00 [facility] SARS-COV-2 COVID-19 2021-01-27 Completed Unive rsity of PFIZER VACCINE 00:00:00 [facility] SARS-COV-2 COVID-19 2021-01-27 Completed Unive rsity of PFIZER VACCINE 00:00:00 [facility] SARS-COV-2 COVID-19 2021-01-27 Completed Unive rsity of PFIZER VACCINE 00:00:00 [facility] SARS-COV-2 COVID-19 2021-01-27 Completed [facility]ive rsity of PFIZER VACCINE 00:00:00 [facility] SARS-COV-2 COVID-19 2021-01-27 Completed [facility]ive rsity of PFIZER VACCINE 00:00:00 [facility] SARS-COV-2 COVID-19 2021-01-27 Completed [facility]ive rsity of PFIZER VACCINE 00:00:00 [facility] SARS-COV-2 COVID-19 2021-01-27 Completed Unive rsity of PFIZER VACCINE 00:00:00 [facility] SARS-COV-2 COVID-19 2021-01-27 Completed Unive rsity of PFIZER VACCINE 00:00:00 [facility] SARS-COV-2 COVID-19 2021-01-27 Completed [facility]ive rsity of PFIZER VACCINE 00:00:00 [facility] SARS-COV-2 COVID-19 2021-01-27 Completed [facility]ive rsity of PFIZER VACCINE 00:00:00 [facility] SARS-COV-2 COVID-19 2021-01-27 Completed [facility]ive rsity of PFIZER VACCINE 00:00:00 [facility] SARS-COV-2 COVID-19 2021-01-27 Completed Unive rsity of PFIZER VACCINE 00:00:00 [facility] SARS-COV-2 COVID-19 2021-01-27 Completed [facility]ive rsity of PFIZER VACCINE 00:00:00 [facility] SARS-COV-2 COVID-19 2021-01-27 Completed Unive rsity of PFIZER VACCINE 00:00:00 [facility] SARS-COV-2 COVID-19 2021-01-27 Completed [facility]ive rsity of PFIZER VACCINE 00:00:00 [facility] SARS-COV-2 COVID-19 2021-01-27 Completed Unive rsity of PFIZER VACCINE 00:00:00 [facility] SARS-COV-2 COVID-19 2021-01-27 Completed [facility]ive rsity of PFIZER VACCINE 00:00:00 [facility] SARS-COV-2 COVID-19 2021-01-27 Completed [facility]ive rsity of PFIZER VACCINE 00:00:00 [facility] SARS-COV-2 COVID-19 2021-01-27 Completed Unive rsity of PFIZER VACCINE 00:00:00 [facility] SARS-COV-2 COVID-19 2021-01-27 Completed [facility]ive rsity of PFIZER VACCINE 00:00:00 [facility] SARS-COV-2 COVID-19 2021-01-27 Completed [facility]ive rsity of PFIZER VACCINE 00:00:00 [facility] SARS-COV-2 COVID-19 2021-01-27 Completed [facility]ive rsity of PFIZER VACCINE 00:00:00 [facility] SARS-COV-2 COVID-19 2021-01-27 Completed [facility] of PFIZER VACCINE 00:00:00 [facility] Influenza Virus 2021-01-11 Completed [facility] Vaccine,quad 00:00:00 [facility] Influenza Virus 2021-01-11 Completed [facility] Vaccine,quad 00:00:00 [facility]+ Influenza Virus 2021-01-11 Completed [facility] Vaccine,quad 00:00:00 [facility]+ Influenza Virus 2021-01-11 Completed [facility] Vaccine,quad 00:00:00 [facility]+ Influenza Virus 2021-01-11 Completed [facility] Vaccine,quad 00:00:00 [facility]+ Influenza Virus 2021-01-11 Completed [facility] Vaccine,quad 00:00:00 [facility]+ Influenza Virus 2021-01-11 Completed [facility] Vaccine,quad 00:00:00 [facility]+ Influenza Virus 2021-01-11 Completed [facility] Vaccine,quad 00:00:00 [facility]+ Influenza Virus 2021-01-11 Completed [facility] Vaccine,quad 00:00:00 [facility]+ Influenza Virus 2021-01-11 Completed [facility] Vaccine,quad 00:00:00 [facility]+ Influenza Virus 2021-01-11 Completed [facility] Vaccine,quad 00:00:00 [facility]+ Influenza Virus 2021-01-11 Completed [facility] Vaccine,quad 00:00:00 [facility]+ Influenza Virus 2021-01-11 Completed [facility] Vaccine,quad 00:00:00 [facility]+ Influenza Virus 2021-01-11 Completed [facility] Vaccine,quad 00:00:00 [facility]+ Influenza Virus 2021-01-11 Completed [facility] Vaccine,quad 00:00:00 [facility]+ Influenza Virus 2021-01-11 Completed [facility] Vaccine,quad 00:00:00 [facility]+ Influenza Virus 2021-01-11 Completed [facility] Vaccine,quad 00:00:00 [facility]+ Influenza Virus 2021-01-11 Completed [facility] Vaccine,quad 00:00:00 [facility]+ Influenza Virus 2021-01-11 Completed [facility] Vaccine,quad 00:00:00 [facility]+ Influenza Virus 2021-01-11 Completed [facility] Vaccine,quad 00:00:00 [facility]+ Influenza Virus 2021-01-11 Completed [facility] Vaccine,quad 00:00:00 [facility]+ Influenza Virus 2021-01-11 Completed [facility] Vaccine,quad 00:00:00 [facility]+ Influenza Virus 2021-01-11 Completed [facility] Vaccine,quad 00:00:00 [facility] 65+ Influenza Virus 2021-01-11 Completed [facility] Vaccine,quad 00:00:00 [facility]+ Influenza Virus 2021-01-11 Completed [facility] Vaccine,quad 00:00:00 [facility] 65+ Influenza Virus 2021-01-11 Completed [facility] Vaccine,quad 00:00:00 [facility] 65+ Influenza Virus 2021-01-11 Completed [facility] Vaccine,quad 00:00:00 [facility] 65+ Influenza Virus 2021-01-11 Completed [facility] Vaccine,quad 00:00:00 [facility] SARS-COV-2 COVID-19 2020-06-05 Completed Unive [facility] of PADMINI/J&J VACCINE 00:00:00 [facility] SARS-COV-2 COVID-19 2020-06-05 Completed Unive rsity of PADMINI/J&J VACCINE 00:00:00 [facility] SARS-COV-2 COVID-19 2020-06-05 Completed Unive rsity of PADMINI/J&J VACCINE 00:00:00 [facility] SARS-COV-2 COVID-19 2020-06-05 Completed Unive rsity of PADMINI/J&J VACCINE 00:00:00 [facility] SARS-COV-2 COVID-19 2020-06-05 Completed Unive rsity of PADMINI/J&J VACCINE 00:00:00 [facility] SARS-COV-2 COVID-19 2020-06-05 Completed Unive rsity of PADMINI/J&J VACCINE 00:00:00 [facility] SARS-COV-2 COVID-19 2020-06-05 Completed Unive rsity of PADMINI/J&J VACCINE 00:00:00 [facility] SARS-COV-2 COVID-19 2020-06-05 Completed Unive rsity of PADMINI/J&J VACCINE 00:00:00 [facility] SARS-COV-2 COVID-19 2020-06-05 Completed Unive rsity of PADMINI/J&J VACCINE 00:00:00 [facility] SARS-COV-2 COVID-19 2020-06-05 Completed Unive rsity of PADMINI/J&J VACCINE 00:00:00 [facility] SARS-COV-2 COVID-19 2020-06-05 Completed [facility] PADMINI/J&J VACCINE 00:00:00 [facility] SARS-COV-2 COVID-19 2020-06-05 Completed [facility] of PADMINI/J&J VACCINE 00:00:00 [facility] SARS-COV-2 COVID-19 2020-06-05 Completed [facility] of PADMINI/J&J VACCINE 00:00:00 [facility] SARS-COV-2 COVID-19 2020-06-05 Completed [facility] of PADMINI/J&J VACCINE 00:00:00 [facility] SARS-COV-2 COVID-19 2020-06-05 Completed [facility] of PADMINI/J&J VACCINE 00:00:00 [facility] SARS-COV-2 COVID-19 2020-06-05 Completed [facility] of PADMINI/J&J VACCINE 00:00:00 [facility] SARS-COV-2 COVID-19 2020-06-05 Completed [facility] of PADMINI/J&J VACCINE 00:00:00 [facility] SARS-COV-2 COVID-19 2020-06-05 Completed [facility] of PADMINI/J&J VACCINE 00:00:00 [facility] SARS-COV-2 COVID-19 2020-06-05 Completed [facility] of PADMINI/J&J VACCINE 00:00:00 [facility] SARS-COV-2 COVID-19 2020-06-05 Completed [facility] of PADMINI/J&J VACCINE 00:00:00 [facility] SARS-COV-2 COVID-19 2020-06-05 Completed [facility] of PADMINI/J&J VACCINE 00:00:00 [facility] SARS-COV-2 COVID-19 2020-06-05 Completed [facility] of PADMINI/J&J VACCINE 00:00:00 [facility] SARS-COV-2 COVID-19 2020-06-05 Completed [facility] of PADMINI/J&J VACCINE 00:00:00 [facility] SARS-COV-2 COVID-19 2020-06-05 Completed [facility] of PADMINI/J&J VACCINE 00:00:00 [facility] SARS-COV-2 COVID-19 2020-06-05 Completed [facility] PADMINI/J&J VACCINE 00:00:00 [facility] SARS-COV-2 COVID-19 2020-06-05 Completed [facility] of PADMINI/J&J VACCINE 00:00:00 [facility] SARS-COV-2 COVID-19 2020-06-05 Completed [facility] PADMINI/J&J VACCINE 00:00:00 [facility] SARS-COV-2 COVID-19 2020-06-05 Completed [facility] PADMINI/J&J VACCINE 00:00:00 [facility] Influenza High Dose 2019-12-25 Completed [facility] 00:00:00 [facility] Influenza High Dose 2019-12-25 Completed [facility] 00:00:00 [facility] Influenza High Dose 2019-12-25 Completed [facility] 00:00:00 [facility] Influenza High Dose 2019-12-25 Completed [facility] 00:00:00 [facility] Influenza High Dose 2019-12-25 Completed [facility] 00:00:00 [facility] Influenza High Dose 2019-12-25 Completed [facility] 00:00:00 [facility] Influenza High Dose 2019-12-25 Completed [facility] 00:00:00 [facility] Influenza High Dose 2019-12-25 Completed [facility] 00:00:00 [facility] Influenza High Dose 2019-12-25 Completed [facility] 00:00:00 [facility] Influenza High Dose 2019-12-25 Completed [facility] 00:00:00 [facility] Influenza High Dose 2019-12-25 Completed [facility] 00:00:00 [facility] Influenza High Dose 2019-12-25 Completed [facility] 00:00:00 [facility] Influenza High Dose 2019-12-25 Completed [facility] 00:00:00 [facility] Influenza High Dose 2019-12-25 Completed [facility] 00:00:00 [facility] Influenza High Dose 2019-12-25 Completed [facility] 00:00:00 [facility] Influenza High Dose 2019-12-25 Completed [facility] 00:00:00 [facility] Influenza High Dose 2019-12-25 Completed [facility] 00:00:00 [facility] Influenza High Dose 2019-12-25 Completed [facility] 00:00:00 [facility] Influenza High Dose 2019-12-25 Completed [facility] 00:00:00 [facility] Influenza High Dose 2019-12-25 Completed [facility] 00:00:00 [facility] Influenza High Dose 2019-12-25 Completed [facility] 00:00:00 [facility] Influenza High Dose 2019-12-25 Completed [facility] 00:00:00 [facility] Influenza High Dose 2019-12-25 Completed [facility] 00:00:00 [facility] Influenza High Dose 2019-12-25 Completed [facility] 00:00:00 [facility] Influenza High Dose 2019-12-25 Completed [facility] 00:00:00 [facility] Influenza High Dose 2019-12-25 Completed [facility] 00:00:00 [facility] Influenza High Dose 2019-12-25 Completed [facility] 00:00:00 [facility] Influenza High Dose 2019-12-25 Completed [facility] 00:00:00 [facility] Influenza High Dose 2019-01-14 Completed [facility] of 00:00:00 [facility] Pneumococcal 2019-01-14 Completed [facility] o f Polysaccharide, 00:00:00 [place] [facility] PPSV23 (PNEUMOVAX) Branch Influenza High Dose 2019-01-14 Completed [facility] of 00:00:00 [facility] Pneumococcal 2019-01-14 Completed [facility] f Polysaccharide, 00:00:00 [place] [facility] PPSV23 (PNEUMOVAX) [facility] Influenza High Dose 2019-01-14 Completed [facility] 00:00:00 [facility] Pneumococcal 2019-01-14 Completed [facility] Polysaccharide, 00:00:00 [place] [facility] PPSV23 (PNEUMOVAX) [facility] Influenza High Dose 2019-01-14 Completed [facility] 00:00:00 [facility] Pneumococcal 2019-01-14 Completed [facility] f Polysaccharide, 00:00:00 [place] [facility] PPSV23 (PNEUMOVAX) [facility] Influenza High Dose 2019-01-14 Completed [facility] 00:00:00 [facility] Pneumococcal 2019-01-14 Completed [facility] Polysaccharide, 00:00:00 [place] [facility] PPSV23 (PNEUMOVAX) [facility] Influenza High Dose 2019-01-14 Completed [facility] 00:00:00 [facility] Pneumococcal 2019-01-14 Completed [facility] Polysaccharide, 00:00:00 [place] [facility] PPSV23 (PNEUMOVAX) [facility] Influenza High Dose 2019-01-14 Completed [facility] 00:00:00 [facility] Pneumococcal 2019-01-14 Completed [facility] Polysaccharide, 00:00:00 [place] [facility] PPSV23 (PNEUMOVAX) [facility] Influenza High Dose 2019-01-14 Completed [facility] of 00:00:00 [facility] Pneumococcal 2019-01-14 Completed [facility] Polysaccharide, 00:00:00 [place] [facility] PPSV23 (PNEUMOVAX) [facility] Influenza High Dose 2019-01-14 Completed [facility] of 00:00:00 [facility] Pneumococcal 2019-01-14 Completed [facility] Polysaccharide, 00:00:00 [place] [facility] PPSV23 (PNEUMOVAX) [facility] Influenza High Dose 2019-01-14 Completed [facility] of 00:00:00 [facility] Pneumococcal 2019-01-14 Completed [facility] Polysaccharide, 00:00:00 [place] [facility] PPSV23 (PNEUMOVAX) [facility] Influenza High Dose 2019-01-14 Completed [facility] of 00:00:00 [facility] Pneumococcal 2019-01-14 Completed [facility] f Polysaccharide, 00:00:00 [place] [facility] PPSV23 (PNEUMOVAX) [facility] Influenza High Dose 2019-01-14 Completed [facility] of 00:00:00 [facility] Pneumococcal 2019-01-14 Completed [facility] Polysaccharide, 00:00:00 [place] [facility] PPSV23 (PNEUMOVAX) [facility] Influenza High Dose 2019-01-14 Completed [facility] 00:00:00 [facility] Pneumococcal 2019-01-14 Completed [facility] f Polysaccharide, 00:00:00 [place] [facility] PPSV23 (PNEUMOVAX) [facility] Influenza High Dose 2019-01-14 Completed [facility] of 00:00:00 [facility] Pneumococcal 2019-01-14 Completed [facility] Polysaccharide, 00:00:00 [place] [facility] PPSV23 (PNEUMOVAX) [facility] Influenza High Dose 2019-01-14 Completed [facility] of 00:00:00 [facility] Pneumococcal 2019-01-14 Completed [facility] Polysaccharide, 00:00:00 [place] [facility] PPSV23 (PNEUMOVAX) [facility] Influenza High Dose 2019-01-14 Completed [facility] of 00:00:00 [facility] Pneumococcal 2019-01-14 Completed [facility] Polysaccharide, 00:00:00 [place] [facility] PPSV23 (PNEUMOVAX) [facility] Influenza High Dose 2019-01-14 Completed [facility] of 00:00:00 [facility] Pneumococcal 2019-01-14 Completed [facility] f Polysaccharide, 00:00:00 [place] [facility] PPSV23 (PNEUMOVAX) [facility] Influenza High Dose 2019-01-14 Completed [facility] of 00:00:00 [facility] Pneumococcal 2019-01-14 Completed [facility] f Polysaccharide, 00:00:00 [place] [facility] PPSV23 (PNEUMOVAX) [facility] Influenza High Dose 2019-01-14 Completed [facility] of 00:00:00 [facility] Pneumococcal 2019-01-14 Completed [facility] f Polysaccharide, 00:00:00 [place] [facility] PPSV23 (PNEUMOVAX) [facility] Influenza High Dose 2019-01-14 Completed [facility] of 00:00:00 [facility] Pneumococcal 2019-01-14 Completed [facility] f Polysaccharide, 00:00:00 [place] [facility] PPSV23 (PNEUMOVAX) Branch Influenza High Dose 2019-01-14 Completed [facility] of 00:00:00 [facility] Pneumococcal 2019-01-14 Completed [facility] f Polysaccharide, 00:00:00 [place] [facility] PPSV23 (PNEUMOVAX) [facility] Influenza High Dose 2019-01-14 Completed [facility] of 00:00:00 [facility] Pneumococcal 2019-01-14 Completed [facility] Polysaccharide, 00:00:00 [place] [facility] PPSV23 (PNEUMOVAX) [facility] Influenza High Dose 2019-01-14 Completed [facility] of 00:00:00 [facility] Pneumococcal 2019-01-14 Completed [facility] f Polysaccharide, 00:00:00 [place] [facility] PPSV23 (PNEUMOVAX) [facility] Influenza High Dose 2019-01-14 Completed [facility] of 00:00:00 [facility] Pneumococcal 2019-01-14 Completed [facility] f Polysaccharide, 00:00:00 [place] [facility] PPSV23 (PNEUMOVAX) [facility] Influenza High Dose 2019-01-14 Completed [facility] of 00:00:00 [facility] Pneumococcal 2019-01-14 Completed [facility] Polysaccharide, 00:00:00 [place] [facility] PPSV23 (PNEUMOVAX) Branch Influenza High Dose 2019-01-14 Completed [facility] of 00:00:00 [facility] Pneumococcal 2019-01-14 Completed [facility] Polysaccharide, 00:00:00 [place] [facility] PPSV23 (PNEUMOVAX) [facility] Influenza High Dose 2019-01-14 Completed [facility] of 00:00:00 [facility] Pneumococcal 2019-01-14 Completed [facility] Polysaccharide, 00:00:00 [place] [facility] PPSV23 (PNEUMOVAX) [facility] Influenza High Dose 2019-01-14 Completed [facility] of 00:00:00 [facility] Pneumococcal 2019-01-14 Completed [facility] Polysaccharide, 00:00:00 [place] [facility] PPSV23 (PNEUMOVAX) [facility] Influenza High Dose 2018-01-11 Completed [facility] of 00:00:00 [facility] Influenza High Dose 2018-01-11 Completed [facility] of 00:00:00 [facility] Influenza High Dose 2018-01-11 Completed [facility] of 00:00:00 [facility] Influenza High Dose 2018-01-11 Completed [facility] of 00:00:00 [facility] Influenza High Dose 2018-01-11 Completed [facility] of 00:00:00 [facility] Influenza High Dose 2018-01-11 Completed [facility] of 00:00:00 [facility] Influenza High Dose 2018-01-11 Completed [facility] of 00:00:00 [facility] Influenza High Dose 2018-01-11 Completed [facility] of 00:00:00 [facility] Influenza High Dose 2018-01-11 Completed [facility] of 00:00:00 [facility] Influenza High Dose 2018-01-11 Completed [facility] of 00:00:00 [facility] Influenza High Dose 2018-01-11 Completed [facility] of 00:00:00 [facility] Influenza High Dose 2018-01-11 Completed [facility] of 00:00:00 [facility] Influenza High Dose 2018-01-11 Completed [facility] of 00:00:00 [facility] Influenza High Dose 2018-01-11 Completed [facility] of 00:00:00 [facility] Influenza High Dose 2018-01-11 Completed [facility] of 00:00:00 [facility] Influenza High Dose 2018-01-11 Completed [facility] of 00:00:00 [facility] Influenza High Dose 2018-01-11 Completed [facility] of 00:00:00 [facility] Influenza High Dose 2018-01-11 Completed [facility] of 00:00:00 [facility] Influenza High Dose 2018-01-11 Completed [facility] of 00:00:00 [facility] Influenza High Dose 2018-01-11 Completed [facility] of 00:00:00 [facility] Influenza High Dose 2018-01-11 Completed [facility] of 00:00:00 [facility] Influenza High Dose 2018-01-11 Completed [facility] of 00:00:00 [facility] Influenza High Dose 2018-01-11 Completed [facility] of 00:00:00 [facility] Influenza High Dose 2018-01-11 Completed [facility] of 00:00:00 [facility] Influenza High Dose 2018-01-11 Completed [facility] of 00:00:00 [facility] Influenza High Dose 2018-01-11 Completed [facility] of 00:00:00 [facility] Influenza High Dose 2018-01-11 Completed [facility] of 00:00:00 [facility] Influenza High Dose 2018-01-11 Completed [facility] of 00:00:00 [facility] Influenza High Dose 2016-12-28 Completed [facility] of 00:00:00 [facility] Influenza High Dose 2016-12-28 Completed [facility] of 00:00:00 [facility] Influenza High Dose 2016-12-28 Completed [facility] of 00:00:00 [facility] Influenza High Dose 2016-12-28 Completed [facility] of 00:00:00 [facility] Influenza High Dose 2016-12-28 Completed [facility] of 00:00:00 [facility] Influenza High Dose 2016-12-28 Completed [facility] of 00:00:00 [facility] Influenza High Dose 2016-12-28 Completed [facility] of 00:00:00 [facility] Influenza High Dose 2016-12-28 Completed [facility] of 00:00:00 [facility] Influenza High Dose 2016-12-28 Completed [facility] of 00:00:00 [facility] Influenza High Dose 2016-12-28 Completed [facility] of 00:00:00 [facility] Influenza High Dose 2016-12-28 Completed [facility] of 00:00:00 [facility] Influenza High Dose 2016-12-28 Completed [facility] of 00:00:00 [facility] Influenza High Dose 2016-12-28 Completed [facility] of 00:00:00 [facility] Influenza High Dose 2016-12-28 Completed [facility] of 00:00:00 [facility] Influenza High Dose 2016-12-28 Completed [facility] of 00:00:00 [facility] Influenza High Dose 2016-12-28 Completed [facility] of 00:00:00 [facility] Influenza High Dose 2016-12-28 Completed [facility] of 00:00:00 [facility] Influenza High Dose 2016-12-28 Completed [facility] of 00:00:00 [facility] Influenza High Dose 2016-12-28 Completed [facility] of 00:00:00 [facility] Influenza High Dose 2016-12-28 Completed [facility] of 00:00:00 [facility] Influenza High Dose 2016-12-28 Completed [facility] of 00:00:00 [facility] Influenza High Dose 2016-12-28 Completed [facility] of 00:00:00 [facility] Influenza High Dose 2016-12-28 Completed [facility] of 00:00:00 [facility] Influenza High Dose 2016-12-28 Completed [facility] of 00:00:00 [facility] Influenza High Dose 2016-12-28 Completed [facility] of 00:00:00 [facility] Influenza High Dose 2016-12-28 Completed [facility] of 00:00:00 [facility] Influenza High Dose 2016-12-28 Completed [facility] of 00:00:00 [facility] Influenza High Dose 2016-12-28 Completed [facility] of 00:00:00 [facility] Influenza High Dose 2016-01-06 Completed [facility] of 00:00:00 [facility] Pneumococcal 13 2016-01-06 Completed Universit y of Conjugate, PCV13 00:00:00 [place] [facility] (Prevnar 13) [facility] Influenza High Dose 2016-01-06 Completed [facility] 00:00:00 [facility] Pneumococcal 13 2016-01-06 Completed Universit y of Conjugate, PCV13 00:00:00 [place] [facility] (Prevnar 13) [facility] Influenza High Dose 2016-01-06 Completed [facility] of 00:00:00 [facility] Pneumococcal 13 2016-01-06 Completed Universit y of Conjugate, PCV13 00:00:00 [place] [facility] (Prevnar 13) Branch Influenza High Dose 2016-01-06 Completed [facility] of 00:00:00 [facility] Pneumococcal 13 2016-01-06 Completed Univers[facility] y of Conjugate, PCV13 00:00:00 [place] [facility] (Prevnar 13) Branch Influenza High Dose 2016-01-06 Completed [facility] of 00:00:00 [facility] Pneumococcal 13 2016-01-06 Completed [facility] y of Conjugate, PCV13 00:00:00 [place] [facility] (Prevnar 13) Branch Influenza High Dose 2016-01-06 Completed [facility] of 00:00:00 [facility] Pneumococcal 13 2016-01-06 Completed [facility] y of Conjugate, PCV13 00:00:00 [place] [facility] (Prevnar 13) Branch Influenza High Dose 2016-01-06 Completed [facility] of 00:00:00 [facility] Pneumococcal 13 2016-01-06 Completed [facility] y of Conjugate, PCV13 00:00:00 [place] [facility] (Prevnar 13) Branch Influenza High Dose 2016-01-06 Completed [facility] of 00:00:00 [facility] Pneumococcal 13 2016-01-06 Completed [facility] y of Conjugate, PCV13 00:00:00 [place] [facility] (Prevnar 13) [facility] Influenza High Dose 2016-01-06 Completed [facility] of 00:00:00 [facility] Pneumococcal 13 2016-01-06 Completed [facility] y of Conjugate, PCV13 00:00:00 [place] [facility] (Prevnar 13) Branch Influenza High Dose 2016-01-06 Completed [facility] of 00:00:00 [facility] Pneumococcal 13 2016-01-06 Completed [facility] of Conjugate, PCV13 00:00:00 [place] [facility] (Prevnar 13) Branch Influenza High Dose 2016-01-06 Completed [facility] of 00:00:00 [facility] Pneumococcal 13 2016-01-06 Completed Univers[facility] y of Conjugate, PCV13 00:00:00 [place] [facility] (Prevnar 13) Branch Influenza High Dose 2016-01-06 Completed [facility] of 00:00:00 [facility] Pneumococcal 13 2016-01-06 Completed Univers[facility] of Conjugate, PCV13 00:00:00 [place] [facility] (Prevnar 13) Branch Influenza High Dose 2016-01-06 Completed [facility] of 00:00:00 [facility] Pneumococcal 13 2016-01-06 Completed Univers[facility] of Conjugate, PCV13 00:00:00 [place] [facility] (Prevnar 13) Branch Influenza High Dose 2016-01-06 Completed [facility] 00:00:00 [facility] Pneumococcal 13 2016-01-06 Completed Universit y of Conjugate, PCV13 00:00:00 [place] [facility] (Prevnar 13) Branch Influenza High Dose 2016-01-06 Completed Unive rsity of 00:00:00 [facility] Pneumococcal 13 2016-01-06 Completed Universit y of Conjugate, PCV13 00:00:00 [place] [facility] (Prevnar 13) Branch Influenza High Dose 2016-01-06 Completed Unive rsity of 00:00:00 [facility] Pneumococcal 13 2016-01-06 Completed Universit y of Conjugate, PCV13 00:00:00 [place] [facility] (Prevnar 13) Branch Influenza High Dose 2016-01-06 Completed Unive rsity of 00:00:00 [facility] Pneumococcal 13 2016-01-06 Completed Universit y of Conjugate, PCV13 00:00:00 [place] [facility] (Prevnar 13) Branch Influenza High Dose 2016-01-06 Completed Unive rsity of 00:00:00 [facility] Pneumococcal 13 2016-01-06 Completed Universit y of Conjugate, PCV13 00:00:00 [place] [facility] (Prevnar 13) [facility] Influenza High Dose 2016-01-06 Completed Unive rsity of 00:00:00 [facility] Pneumococcal 13 2016-01-06 Completed Universit y of Conjugate, PCV13 00:00:00 [place] [facility] (Prevnar 13) Branch Influenza High Dose 2016-01-06 Completed [facility]ity of 00:00:00 [facility] Pneumococcal 13 2016-01-06 Completed Universit y of Conjugate, PCV13 00:00:00 [place] [facility] (Prevnar 13) Branch Influenza High Dose 2016-01-06 Completed Unive rsity of 00:00:00 [facility] Pneumococcal 13 2016-01-06 Completed Universit y of Conjugate, PCV13 00:00:00 [place] [facility] (Prevnar 13) Branch Influenza High Dose 2016-01-06 Completed Unive rsity of 00:00:00 [facility] Pneumococcal 13 2016-01-06 Completed Universit y of Conjugate, PCV13 00:00:00 [place] [facility] (Prevnar 13) Branch Influenza High Dose 2016-01-06 Completed Unive rsity of 00:00:00 [facility] Pneumococcal 13 2016-01-06 Completed Universit y of Conjugate, PCV13 00:00:00 [place] [facility] (Prevnar 13) Branch Influenza High Dose 2016-01-06 Completed Unive rsity of 00:00:00 [facility] Pneumococcal 13 2016-01-06 Completed Universit y of Conjugate, PCV13 00:00:00 [place] [facility] (Prevnar 13) Branch Influenza High Dose 2016-01-06 Completed Unive rsity of 00:00:00 [facility] Pneumococcal 13 2016-01-06 Completed Universit y of Conjugate, PCV13 00:00:00 [place] [facility] (Prevnar 13) Branch Influenza High Dose 2016-01-06 Completed Unive rsity of 00:00:00 [facility] Pneumococcal 13 2016-01-06 Completed Universit y of Conjugate, PCV13 00:00:00 [place] [facility] (Prevnar 13) Branch Influenza High Dose 2016-01-06 Completed Unive rsity of 00:00:00 [facility] Pneumococcal 13 2016-01-06 Completed Universit y of Conjugate, PCV13 00:00:00 [place] [facility] (Prevnar 13) Branch Influenza High Dose 2016-01-06 Completed Unive rsity of 00:00:00 [facility] Pneumococcal 13 2016-01-06 Completed Universit y of Conjugate, PCV13 00:00:00 [place] [facility] (Prevnar 13) Branch Influenza High Dose 2015-01-01 Completed Unive rsity of 00:00:00 [facility] Influenza High Dose 2015-01-01 Completed [facility] 00:00:00 [facility] Influenza High Dose 2015-01-01 Completed Unive rsity of 00:00:00 [facility] Influenza High Dose 2015-01-01 Completed Unive rsity of 00:00:00 [facility] Influenza High Dose 2015-01-01 Completed Unive rsity of 00:00:00 [facility] Influenza High Dose 2015-01-01 Completed Unive rsity of 00:00:00 [facility] Influenza High Dose 2015-01-01 Completed Unive rsity of 00:00:00 [facility] Influenza High Dose 2015-01-01 Completed Unive rsity of 00:00:00 [facility] Influenza High Dose 2015-01-01 Completed Unive rsity of 00:00:00 [facility] Influenza High Dose 2015-01-01 Completed Unive rsity of 00:00:00 [facility] Influenza High Dose 2015-01-01 Completed Unive rsity of 00:00:00 [facility] Influenza High Dose 2015-01-01 Completed Unive rsity of 00:00:00 [facility] Influenza High Dose 2015-01-01 Completed Unive rsity of 00:00:00 [facility] Influenza High Dose 2015-01-01 Completed Unive rsity of 00:00:00 [facility] Influenza High Dose 2015-01-01 Completed Unive rsity of 00:00:00 [facility] Influenza High Dose 2015-01-01 Completed Unive rsity of 00:00:00 [facility] Influenza High Dose 2015-01-01 Completed Unive rsity of 00:00:00 [facility] Influenza High Dose 2015-01-01 Completed Unive rsity of 00:00:00 [facility] Influenza High Dose 2015-01-01 Completed Unive rsity of 00:00:00 [facility] Influenza High Dose 2015-01-01 Completed Unive rsity of 00:00:00 [facility] Influenza High Dose 2015-01-01 Completed Unive rsity of 00:00:00 [facility] Influenza High Dose 2015-01-01 Completed Unive rsity of 00:00:00 [facility] Influenza High Dose 2015-01-01 Completed Unive rsity of 00:00:00 [facility] Influenza High Dose 2015-01-01 Completed Unive rsity of 00:00:00 [facility] Influenza High Dose 2015-01-01 Completed Unive rsity of 00:00:00 [facility] Influenza High Dose 2015-01-01 Completed Unive rsity of 00:00:00 [facility] Influenza High Dose 2015-01-01 Completed Unive rsity of 00:00:00 [facility] Influenza High Dose 2015-01-01 Completed Unive rsity of 00:00:00 [facility] Vital Signs Vital Name Observation Time Observation Value Comments Source HEIGHT 2020-05-25 05:50:00 175.3 cm WEIGHT 2020-05-25 05:50:00 76.749 kg HEIGHT 2020-05-19 14:27:00 175.3 cm WEIGHT 2020-05-19 14:27:00 74.844 kg Systolic blood 2022-06-14 15:16:00 134 mm[Hg] Univer sity of [facility] Diastolic blood 2022-06-14 15:16:00 72 mm[Hg] Unive rsity of [facility] Heart rate 2022-06-14 15:16:00 45 /min [facility] Body height 2022-06-14 15:08:00 175.3 cm [facility] Body weight 2022-06-14 15:08:00 79.47 kg [facility] BMI 2022-06-14 15:08:00 25.87 kg/m2 [facility] Oxygen saturation in 2022-06-14 15:08:00 96 /min [facility] Arterial blood by [facility] Pulse oximetry Branch Height 2022-04-25 00:00:00 69 [in_i] [facility] BMI (Body Mass 2022-04-25 00:00:00 24.7 kg/m2 [facility]) [facility] Body Weight 2022-04-25 00:00:00 167 [lb_av] [facility] Systolic blood 2022-04-05 15:50:00 147 mm[Hg] Univer sity of pressure [facility] Diastolic blood 2022-04-05 15:50:00 66 mm[Hg] Unive rsity of pressure [facility] Heart rate 2022-04-05 15:49:00 51 /min [facility] Body height 2022-04-05 15:49:00 175.3 cm [facility] Body weight 2022-04-05 15:49:00 78.382 kg [facility] BMI 2022-04-05 15:49:00 25.52 kg/m2 [facility] Oxygen saturation in 2022-04-05 15:49:00 97 /min University of Arterial blood by [facility] Pulse oximetry Branch Systolic blood 2022-03-30 18:42:00 129 mm[Hg] Univer [facility]ity of pressure [place] [facility] [place] Diastolic blood 2022-03-30 18:42:00 67 mm[Hg] Unive rsity of pressure [facility] Heart rate 2022-03-30 18:42:00 55 /min Universi ty of [facility] Body temperature 2022-03-30 18:42:00 37.5 Yin Univ ersity of [facility] Respiratory rate 2022-03-30 18:42:00 16 /min Univ ersity of [facility] Body height 2022-03-30 18:42:00 175.3 cm [facility]i [facility] [place] [facility] [place] Body weight 2022-03-30 18:42:00 76.204 kg [facility] BMI 2022-03-30 18:42:00 24.81 kg/m2 [facility] [place] [facility] [place] Oxygen saturation in 2022-03-30 18:42:00 100 /min University of Arterial blood by [facility] Pulse oximetry Branch Height 2022-02-28 00:00:00 69 [in_i] [facility] BMI (Body Mass 2022-02-28 00:00:00 23.9 kg/m2 [facility]) [facility] Body Weight 2022-02-28 00:00:00 162 [lb_av] [facility] Systolic blood 2022-01-31 19:14:00 131 mm[Hg] Univer sity of pressure [facility] Diastolic blood 2022-01-31 19:14:00 72 mm[Hg] Unive rsity of pressure [facility] Heart rate 2022-01-31 19:14:00 49 /min Universi ty of [facility] Body temperature 2022-01-31 19:14:00 36.83 Yin [facility] Respiratory rate 2022-01-31 19:14:00 16 /min Univ ersity of [facility] Body weight 2022-01-31 19:14:00 75.751 kg [facility] BMI 2022-01-31 19:14:00 24.66 kg/m2 [facility] [place] [facility] Oxygen saturation in 2022-01-31 19:14:00 97 /min University of Arterial blood by [facility] Pulse oximetry Branch Height 2022-01-21 00:00:00 69 [in_i] [facility] BMI (Body Mass 2022-01-21 00:00:00 24.4 kg/m2 [facility]) [facility] Body Weight 2022-01-21 00:00:00 165 [lb_av] [facility] Systolic blood 2022-01-12 12:51:00 184 mm[Hg] Univer sity of pressure [facility] Diastolic blood 2022-01-12 12:51:00 70 mm[Hg] Unive rsity of pressure [facility] Heart rate 2022-01-12 12:50:00 42 /min [facility] Body height 2022-01-12 12:50:00 175.3 cm [facility] Body weight 2022-01-12 12:50:00 75.342 kg [facility] BMI 2022-01-12 12:50:00 24.53 kg/m2 [facility] Oxygen saturation in 2022-01-12 12:50:00 97 /min University of Arterial blood by [facility] Pulse oximetry Branch Systolic blood 2021-12-14 19:24:00 136 mm[Hg] Univer sity of pressure [facility] Diastolic blood 2021-12-14 19:24:00 82 mm[Hg] Unive rsity of pressure [facility] Heart rate 2021-12-14 19:13:00 76 /min [facility] Body temperature 2021-12-14 19:13:00 36.72 Yin Univ ers[facility] Respiratory rate 2021-12-14 19:13:00 18 /min Univ ersity [facility] Body height 2021-12-14 19:13:00 175.3 cm [facility] [place] [facility] [place] Body weight 2021-12-14 19:13:00 76.567 kg Universi ty of [facility] BMI 2021-12-14 19:13:00 24.93 kg/m2 Universi ty [facility] Systolic blood 2021-05-14 16:25:00 122 mm[Hg] Univer sity of pressure [facility] Diastolic blood 2021-05-14 16:25:00 69 mm[Hg] Unive rsity of [facility] Heart rate 2021-05-14 16:25:00 58 /min Universi ty of [facility] Body temperature 2021-05-14 16:25:00 36.33 Yin Univ ersity of [facility] Body height 2021-05-14 16:25:00 175.3 cm Universi ty of [facility] Body weight 2021-05-14 16:25:00 74.571 kg Universi ty [facility] BMI 2021-05-14 16:25:00 24.28 kg/m2 Universi ty [facility] Oxygen saturation in 2021-05-14 16:25:00 95 /min [facility] blood by [facility] Pulse oximetry Branch HEIGHT 2020-05-25 05:50:00 175.3 cm WEIGHT 2020-05-25 05:50:00 76.749 kg HEIGHT 2020-05-19 14:27:00 175.3 cm WEIGHT 2020-05-19 14:27:00 74.844 kg WEIGHT 2020-05-22 08:40:00 76.204 kg HEIGHT 2020-05-22 08:40:00 175.3 cm WEIGHT 2020-05-22 08:40:00 76.204 kg HEIGHT 2020-05-22 08:40:00 175.3 cm Systolic blood 2020-05-26 11:00:00 132 mm[Hg] [facility] Diastolic blood 2020-05-26 11:00:00 64 mm[Hg] S t [facility] Heart rate 2020-05-26 11:00:00 60 /min [facility] Body temperature 2020-05-26 11:00:00 36 Yin [facility] Respiratory rate 2020-05-26 11:00:00 18 /min [facility] Oxygen saturation in 2020-05-26 11:00:00 95 /min [facility] Arterial blood by Medical Ce nter Pulse oximetry Body height 2020-05-25 05:50:00 175.3 cm [facility] Body weight 2020-05-25 05:50:00 76.749 kg [facility] BMI 2020-05-25 05:50:00 24.99 kg/m2 [facility] Procedures Procedure Date / Time Performing Clinician Source Performed [facility] PATIENT FINANCIAL 2022-06-14 14:53:19 Doctor Unassigned, No [facility] POLICY Name [facility] REFERRAL- 2022-05-25 06:01:00 Doctor Unassigned, No [facility] REQUEST/RESPONSE [facility]3] CT TRAUMA HEAD WO 2022-03-30 19:22:21 Lory Rubio [facility] CONTRAST Medical Branch CT TRAUMA CERVICAL 2022-03-30 19:22:21 Lory Rubio [facility] SPINE WO [facility] Branch XR SHOULDER 2+ VW LEFT 2022-03-30 19:11:43 Lory Rubio Un [facility] CONSENT/REFUSAL FOR 2022-03-30 18:29:43 Doctor Unassigned, No Un [facility] DIAGNOSIS AND TREATMENT [facility]3] CONSENT/REFUSAL FOR 2022-03-07 19:52:12 [facility]3] ASSIGNMENT OF BENEFITS 2022-01-12 12:41:55 Doctor Unassigned, No [facility] FLU 2021-12-14 15:33:03 Doctor Unassigned, No [facility] VACC(),65+YR,0 [facility] [place] .5 ML,IM,ADJUVANTED,QUAD(F LUAD) EXTERNAL COLONOSCOPY 2021-06-24 20:24:00 [facility] 2021-05-14 16:44:00 Nery Bonilla [facility] CBC (HEMOGRAM ONLY) 2020-05-26 04:35:00 Onyemkpa, [facility] BASIC METABOLIC PANEL 2020-05-26 04:35:00 [facility] (7) [facility] TISSUE EXAM 2020-05-25 08:42:00 Kar Rashi [facility] ENDARTERECTOMY,CAROTID 2020-05-25 07:09:00 KarRashi [facility] ABORH, MANUAL 2020-05-25 06:30:00 Radha White [facility] POCT-GLUCOSE METER 2020-05-25 05:53:00 KarRashi [facility] BASIC METABOLIC PANEL 2020-05-22 09:55:00 Alejandra [facility] (7) [facility] CBC W/PLT COUNT & AUTO 2020-05-22 09:55:00 Alejandra [facility] DIFFERENTIAL Center PROTHROMBIN TIME/INR 2020-05-22 09:55:00 Alejandra [facility] TYPE AND SCREEN, 2020-05-22 09:55:00 Alejandra [facility] AUTOMATED Center SARS-COV2/RT-PCR ([facility] 2020-05-22 09:41:00 Debontjoe [facility] & REF LABS) Center ECG 12-LEAD 2020-05-22 09:39:47 Unknown, Hl7 Doctor [facility] Plan of Care Planned Activity Planned Date Details Comments Source Future Scheduled Test 2021-11-25 [address] [facility] 00:00:00 (#1) [code = [facility] INFLUENZA VACCINE (#1)] Future Scheduled Test 2021-11-[address] [facility] 00:00:00 (#1) [code = [facility] INFLUENZA VACCINE (#1)] Future Scheduled Test 2021-03-[address] [facility] 00:00:00 (12+) [code = Medical Center DEPRESSION SCREENING (12+)] Future Scheduled Test 2021-03-[address] [facility] 00:00:00 [code = FALLS RISK Medical C enter SCREENING] Future Scheduled Test 2021-03-[address] [facility] 00:00:00 (12+) [code = Medical Center DEPRESSION SCREENING (12+)] Future Scheduled Test 2021-03-27 FALLS RISK SCREENING [facility] 00:00:00 [code = FALLS RISK Medical C enter SCREENING] Future Scheduled Test 2020-11-[address] [facility] 00:00:00 (#1) [code = Medical Center INFLUENZA VACCINE (#1)] Future Scheduled Test 2013-08-[address] [facility] 00:00:00 WELLNESS (YEAR 2 or Medical Center FIRST YEAR if no IPPE) [code = MEDICARE ANNUAL WELLNESS (YEAR 2 or FIRST YEAR if no IPPE)] Future Scheduled Test 2013-08-[address] [facility] 00:00:00 WELLNESS (YEAR 2 or Medical Center FIRST YEAR if no IPPE) [code = MEDICARE ANNUAL WELLNESS (YEAR 2 or FIRST YEAR if no IPPE)] Future Scheduled Test 2013-08-[address] [facility] 00:00:00 WELLNESS (YEAR 2 or Medical Center FIRST YEAR if no IPPE) [code = MEDICARE ANNUAL WELLNESS (YEAR 2 or FIRST YEAR if no IPPE)] Future Scheduled Test 1997-09-04 SHINGLES VACCINES ([address] [facility] 00:00:00 of 2) [code = Medical Center SHINGLES VACCINES (1 of 2)] Future Scheduled Test 1997-09-04 SHINGLES VACCINES ([address] [facility] 00:00:00 of 2) [code = Medical Center SHINGLES VACCINES (1 of 2)] Future Scheduled Test 1997-09-04 SHINGLES VACCINES ([address] [facility] 00:00:00 of 2) [code = Medical Center SHINGLES VACCINES (1 of 2)] Future Scheduled Test 1966-09-04 DTAP/TDAP/TD VACCINES [facility] 00:00:00 (1 - Tdap) [code = Medical C enter DTAP/TDAP/TD VACCINES (1 - Tdap)] Future Scheduled Test 1966-09-04 DTAP/TDAP/TD VACCINES [facility] 00:00:00 (1 - Tdap) [code = Medical C enter DTAP/TDAP/TD VACCINES (1 - Tdap)] Future Scheduled Test 1966-09-04 DTAP/TDAP/TD VACCINES [facility] 00:00:00 (1 - Tdap) [code = Medical C enter DTAP/TDAP/TD VACCINES (1 - Tdap)] Future Scheduled Test 1965-09-04 HEPATITIS C SCREENING [facility] 00:00:00 [code = HEPATITIS C Medical Center SCREENING] Future Scheduled Test 1965-09-04 HEPATITIS C SCREENING [facility] 00:00:00 [code = HEPATITIS C Medical Center SCREENING] Future Scheduled Test 1965-09-04 HEPATITIS C SCREENING [facility] 00:00:00 [code = HEPATITIS C Medical Center SCREENING] Future Scheduled Test 1959 COVID-19 VACCINE (1) [facility] 00:00:00 [code = COVID-[address] VACCINE (1)] Future Scheduled Test 1948-03-06 COVID-19 VACCINE (#1) [facility] 00:00:00 [code = COVID-[address] VACCINE (#1)] Future Scheduled Test 1948-03-06 COVID-19 VACCINE (#1) [facility] 00:00:00 [code = COVID-[address] VACCINE (#1)] Future Scheduled Test 1947 [facility] malignant neoplasm of Medica l Center colon (procedure) [code = 023969179] Future Scheduled Test 1947 [facility] malignant neoplasm of [facility]ica [facility] Center colon (procedure) [code = 265525245] Future Scheduled Test 1947 DXA SCAN [code = DXA [facility] 00:00:00 SCAN] [facility] Future Scheduled Test 1947 [facility]:00 malignant neoplasm of Medica [facility] Center colon (procedure) [code = 903143706] Future Scheduled Test 1947 [facility]:00 malignant neoplasm of Medica l Center colon (procedure) [code = 822426146] Future Scheduled Test 1947 Sigmoidoscopy [code = [facility] 00:00:00 Sigmoidoscopy] [facility] Future Scheduled Test 1947 [facility]:00 malignant neoplasm of Medica l Center breast (procedure) [code = 741991949] Future Scheduled Test [address] [facility] 00:00:00 (combo) [code = CT Medical C enter Colonography (combo)] Future Scheduled Test 1947 [facility]:00 malignant neoplasm of Medica l Center colon (procedure) [code = 842239337] Future Scheduled Test 1947 [facility]:00 malignant neoplasm of Medica l Center colon (procedure) [code = 056912406] Future Scheduled Test 1947 DXA SCAN [code = DXA [facility] 00:00:00 SCAN] [facility] Future Scheduled Test 1947 [facility]:00 malignant neoplasm of Medica l Center colon (procedure) [code = 126416294] Future Scheduled Test 1947 [facility]:00 malignant neoplasm of Medica l Center colon (procedure) [code = 985962391] Future Scheduled Test 1947 Sigmoidoscopy [code = [facility] 00:00:00 Sigmoidoscopy] [facility] Future Scheduled Test 1947 [facility]:00 malignant neoplasm of Medica l Center breast (procedure) [code = 840637487] Future Scheduled Test 1947 [facility] 00:[facility]:00 malignant neoplasm of Medica l Center colon (procedure) [code = 926495367] Future Scheduled Test 1947 [facility]:00 malignant neoplasm of Medica l Center breast (procedure) [code = 078844978] Future Scheduled Test [address] [facility] 00:00:00 (combo) [code = CT Medical C enter Colonography (combo)] Future Scheduled Test Improve quality of [facility] [code = Improve Sports Medicine quality of life] Instructions [facility] Encounters Start End Encounter Admission Attending Care Care Encounter Source Date/Time Date/Time Type Type Clinicians Facility Department ID 2021-01-26 Emergency [facility] [id number] [facility] [id number] Univers 23:15:55 ity of [facility] 2021-01-25 Emergency [facility] [id number] Univers 18:11:00 ity of [facility] 2021-01-21 Emergency [facility] [id number] Univers 13:11:06 ity of [facility] 2021-01-02 In[address] KAR, [facility] Surgery [id number] [facility] 03:58:35 RASHI 2022-06-20 2022-06-20 [facility] [id number] Univers 00:00:00 00:00:00 [facility] [id number] [facility] [id number] Julián as JAKE?BLEA [id number] [address] MEDICAL OFFICE [facility] 2022-06-14 2022-06-14 Office [facility] [id number] Univers 10:15:00 10:30:[address] [facility] [id number] it y of [place] [id number] Julián as JAKE?BLEA [id number] [address] [facility] 2022-06-14 2022-06-14 Outpatient R RICKY [facility] [id number] Univers 10:15:00 10:15:00 JOSE A ity of [facility] 2022-06-14 2022-06-14 Orders Doctor KAPADIA 1.2.840.114 [id number] Univers 00:00:00 00:00:00 Only Unassigned, FELICITA 350.1.13.10 ity of [place] [facility] 4.2.7.2.686 Julián as [phone] [address] 2022-06-06 2022-06-06 Telephone Ricky [facility] 1.2.658.641 [id number] Univers 00:00:00 00:00:00 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 [phone] 2022-04-05 2022-04-05 Office [facility] 1.2.840.114 [id number] Univers 09:45:00 10:00:00 Visit Jose Avioleta ECKERT 350.1.13.10 it y of [place] 4.2.7.2.686 Julián as JAKE?BLEA [phone] Wa dical KN 044 [facility] 2022-04-05 2022-04-05 Outpatient Jarad GARCÍA [facility] [id number] Univers 09:45:00 09:45:00 JOSE A funk [facility] 2022-03-30 2022-03-30 Emergency X [facility] ERT [id number] Univers 12:43:00 14:48:00 LORY funk [facility] 2022-03-30 2022-03-30 Emergency [facility] 1.2.840.114 [id number] Univers 12:43:00 14:48:00 Lory JADE 350.1.13.10 ity of [place] 4.2.7.2.686 [place] [facility] [phone] [facility] [address] 2022-03-07 2022-03-07 Outpatient Jarad GARCÍA [facility] [id number] Univers 13:52:45 23:59:00 JOSE A funk [facility] 2022-03-07 2022-03-07 Hospital [facility] 1.2.840.114 [id number] Univers 13:52:45 23:59:00 Encounter Jose A JADE 350.1.13.10 ity of [place] 4.2.7.2.686 [facility] [phone] [facility] [address] 2022-03-07 2022-03-07 Orders Doctor STEFFI 1.2.840.114 [id number] Univers 00:00:00 00:00:00 Only Unassigned, FELICITA 350.1.13.10 ity of [place] [facility] 4.2.7.2.686 [facility] [phone] [facility] [address] 2022-02-28 2022-02-28 Outpatient FOG_Halamic AOSM AOSM 619 [id number] Pretty 00:00:00 00:00:00 ek_Mar_NP [id number] Orth ope dic Sports Medicin e 2022-02-28 2022-02-28 Outpatient FOG_Halamic AOSM AOSM 619 [id number] Pretty 00:00:00 00:00:00 ek_Mar_NP 518692 Orth ope dic Sports Medicin e 2022-02-28 2022-02-28 Outpatient FOG_Halamic AOSM AOSM 619 5451-20 Pretty 00:00:00 00:00:00 ek_Mar_NP 359692 Orth ope dic Sports Medicin e 2022-02-28 2022-02-28 Yajaira Black [place] - [place] 2021 1205 Pretty 00:00:00 00:00:00 Nedra Fernandez - Or thbinh 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 [phone] 2022-02-07 2022-02-07 Outpatient MORGAN Smith HCATO PAIN [id number] [facility] 08:26:00 08:26:00 Yenny Banuelos [facility]ope [facility] Hosp[facility] 2022-02-07 2022-02-07 Outpatient FOG_Halamic AOSM AOSM 619 [id number] Pretty 00:00:00 00:00:00 ek_Mar_NP [id number] Orth ope dic Sports Medicin e 2022-02-07 2022-02-07 Yenny Wild [place] - [place] [id number] 114 Pretty 00:00:00 00:00:00 Nedra Smith MD: 7401 FOG_[place] dic [facility] Orthopedic Sport [facility]_OP [facility] [address] , Ph. 2022-02-02 2022-02-02 Telephone Ricky [facility] 1.2.070.040 [id number] Univers 00:00:00 00:00:00 [facility] 350.1.13.10 it y of [place] 4.2.7.2.686 Julián as JAKE?BLEA [phone] Wa dical [address] MEDICAL OFFICE BUILDING 2022-01-31 2022-01-31 Urgent Steffi Whittaker [facility] 1.2.840.114 [id number] Univers 12:40:00 13:00:00 Care Unknown, [facility] 350.1.13.10 ity of [place] 4.2.7.2.686 Julián as JAKE?BLEA [phone] Wa dic[address] MEDICAL OFFICE BUILDING 2022-01-31 2022-01-31 Outpatient R NATY [facility] [id number] Univers 12:40:00 12:40:00 STEFFI [facility] 2022-01-24 2022-01-24 Outpatient FIDEL Smith HCATO [id number] [facility] 20:30:00 20:30:00 Yenny Laguna [place] [facility] 2022-01-24 2022-01-24 Outpatient EL FIDEL Smith PAIN [id number] [facility] 14:21:00 14:21:00 Yenny Bashir [place] [facility] 2022-01-24 2022-01-24 Outpatient FOG_Halamic AOSM AOSM 619 [id number] Pretty 00:00:00 00:00:00 ek_Mar_NP [id number] Orth ope dic Sports Medicin e 2022-01-24 2022-01-24 Yenny Wild [place] - [place] [id number] Pretty 00:00:00 00:00:00 Nedra Smith MD: 7401 FOG_[place] [facility] Orthopedic Sport [facility]_OP [facility] [address] , Ph. 2022-01-21 2022-01-21 Outpatient FOG_Halamic AOSM AOSM 619 5451-20 Pretty 00:00:00 00:00:00 ek_Mar_NP 307309 Orth ope dic Sports Medicin e 2022-01-21 2022-01-21 [place]aira Black [place] - [place] 2021 1027 Pretty 00:00:00 00:00:00 Fernandez, [place] - Or thope LAY OUT WORKER: 7401 FOG_Ofc dic [facility] Sp[facility] [place], [place] [address] , Ph. [phone] 2022-01-19 2022-01-19 Outpatient FOG_Halamic AOSM AOSM 619 [id number] Pretty 00:00:00 00:00:00 ek_Mar_NP [id number] Orth ope dic Sports Medicin e 2022-01-19 2022-01-19 Patient Donna [facility] 1.2.840.114 [id number] Univers 00:00:00 00:00:00 Outreach [facility] 350.1.13.10 i ty of [place] 4.2.7.2.686 Julián as JAKE?BLEA [phone] [address] OFFICE BUILDING 2022-01-12 2022-01-12 Methods Examiner Lab, Ang - [facility] 1.2.840.1 14 [id number] Univers 08:15:00 08:30:[address] [facility] 350.1.13.10 ity of [place] 4.2.7.2.686 Julián as JAKE?BLEA [phone] [address] OFFICE [facility] 2022-01-12 2022-01-12 Outpatient R RICKY [facility] [id number] Univers 08:15:00 08:15:00 JOSE A funk [facility] 2022-01-12 2022-01-12 Office [facility] 1.2.840.114 [id number] Univers 07:45:00 08:00:[address] [facility] 350.1.13.10 it y of [place] 4.2.7.2.686 Julián as JAKE?BLEA [phone] [address] OFFICE [facility] 2022-01-12 2022-01-12 Orders Doctor STEFFI 1.2.840.114 [id number] Univers 00:00:00 00:00:00 Only Unassigned, FELICITA 350.1.13.10 ity of [place] [facility] 4.2.7.2.686 Julián as [phone] [facility] [address] 2022-01-12 2022-01-12 Telephone Ricky [facility] 1.2.265.933 [id number] Univers 00:00:00 00:00:00 [facility] 350.1.13.10 it [facility] 4.2.7.2.686 Julián as JAKE?BLEA [phone] [address] OFFICE [facility] 2021-12-14 2021-12-14 Outpatient R JADEN DOW [facility] [id number] Univers 14:00:00 14:54:56 ity of [facility] 2021-12-14 2021-12-14 Office Jaden Dow [facility] 1.2.840.114 [id number] Univers 14:00:00 14:54:56 Visit MARGARITO 350.1.13.10 it y of [place] [phone] [facility] [address] 2021-12-14 2021-12-14 Imm/Inj Nurse, Louie Chilel [facility] 1.2.840.114 [id number] Univers 11:00:00 11:20:00 Visit Jose A García [facility] 350.1.13.10 ity [place] [facility] 4.2.7.2.686 Julián as JAKE?BLEA [phone] [address] OFFICE [facility] 2021-12-08 2021-12-08 Pre Visit NIKI Correa 1.2.840.012 [id number] Univers 00:00:00 00:00:00 Outreach Sylvie MARTINEZ 350.1.13.10 i [place] of [place]2.7.2.[place] [phone] [facility] [address] 2021-12-06 2021-12-06 Outpatient FOG_Halamic AOSM AOSM 619 [id number] Pretty 00:00:00 00:00:00 ek_Mar_NP [id number] Orth ope dic Sports Medicin e 2021-10-05 2021-10-05 Outpatient R JADEN DOW [facility] [id number] Univers 09:00:00 09:00:00 ity [facility] 2021-10-05 2021-10-05 Outpatient R JADEN DOW [facility] [id number] Univers 09:00:00 09:00:00 ity [facility] 2021-10-05 2021-10-05 Outpatient R JOVANI JADEN [facility] [id number] Univers 09:00:00 09:00[facility] 2021-10-04 2021-10-04 Outpatient R JADEN DOW [facility] [id number] Univers 10:30:00 10:30:00 ity [facility] 2021-09-28 2021-09-28 Pre Visit NIKI Correa 1.2.190.718 [id number] Univers 00:00:00 00:00:00 Outreach Sylvie MARTINEZ 350.1.13.10 [place] [phone] [address] 2021-06-16 2021-06-16 Lucia García[facility] 1.2.840.114 [id number] Univers 00:00:00 00:00:00 [facility] 350.1.13.10 it y of [place] 4.2.7.2.686 Julián as JAKE?BLEA [phone] Wa dical [address] MEDICAL OFFICE BUILDING 2021-06-08 2021-06-08 Pre Visit NIKI Nam 1.2.840.114 [id number] Univers 00:00:00 00:00:00 Outreach Sharyn MARTINEZ 350.1.13.10 [place].2.[place] [phone] [address] 2021-05-14 2021-05-14 Outpatient R IRENE [facility] [id number] Univers 10:30:00 12:15:44 NERY ity [facility] 2021-05-14 2021-05-14 Office [facility] 1.2.840.114 [id number] Univers 10:30:00 11:00:00 Visit Nery Seals [facility] 350.1.13.10 i ty of [place] 4.2.7.2.686 Julián as JAKE?BLEA [phone] Wa dical KNEY [address] [place] [address] OFFICE BUILDING 2021-05-14 2021-05-14 [facility] [id number] Univers 10:30:00 10:30:00 NERY ity [facility] 2021-05-12 2021-05-12 Methods Examiner Darnell, Adc Lab Main [facility] 1.2.8 40.114 [id number] Univers 10:15:00 10:30:00 Visit Paris Franco KALIE 350.1.13.10 ity [facility] 4.2.7.2.[place] [phone] Wa dical [facility] [address] [facility] 2021-05-12 2021-05-12 Outpatient R PARIS FRANCO [facility] [id number] Univers 10:15:00 10:15:00 ity of [facility] 2021-05-12 2021-05-12 Orders Doctor STEFFI 1.2.840.114 [id number] Univers 00:00:00 00:00:00 Only Unassigned, FELICITA 350.1.13.10 ity of [place] [facility] 4.2.7.2.686 Julián as [phone] [address] 2021-05-04 2021-05-04 Outpatient REY WilkinsTO PAIN [id number] [facility] 10:22:00 10:22:00 Yenny [facility] [place] [facility] 2021-04-20 2021-04-20 Outpatient REY WilkinsTO PAIN [id number] [facility] 07:16:00 07:16:00 Yenny 71 [place] [facility] 2021-04-02 2021-04-02 Methods Examiner Darnell, Adc Lab Main [facility] 1.2.8 40.114 [id number] Univers 08:30:00 08:45:00 Visit Yenny Wright 350.1.13.10 ity of [facility] 4.2.7.2.686 [place] [phone] [address] 2021-04-02 2021-04-02 Outpatient R ADRIANA [facility] [id number] Univers 08:30:00 08:30:00 YENNY itdinorah [facility] 2021-04-02 2021-04-02 Orders Doctor STEFFI 1.2.840.114 [id number] Univers 00:00:00 00:00:00 Only Unassigned, FELICITA 350.1.13.10 ity of [place] [facility] 4.2.7.2.686 Julián as [phone] [address] 2021-02-09 2021-02-09 Telephone [facility] 1.2.349.773 [id number] Univers 00:00:00 00:00:00 Jose A [employer] 350.1.13.10 it y of [place] 4.2.7.2.686 Julián as JAKE?BLEA [phone] [address] OFFICE [facility] 2021-02-05 2021-02-05 Orders Doctor STEFFI 1.2.840.114 [id number] Univers 00:00:00 00:00:00 Only Unassigned, FELICITA 350.1.13.10 ity of [place] [facility] 4.2.7.2.686 Julián as [phone] [address] 2021-01-28 2021-01-28 Telephone [facility] 1.2.910.805 [id number] Univers 00:00:00 00:00:00 [employer] 350.1.13.10 it y of [place] 4.2.7.2.686 Julián as JAKE?BLEA [phone] [address] OFFICE [facility] 2021-01-27 2021-01-27 Imm/Inj Vaccine, Ang Db Cbc Fam [facility] 1. 2.840.114 [id number] Univers 09:06:47 09:16:47 [facility] 350.1.13.10 ity of [place] 4.2.7.2.686 Julián as JAKE?BLEA [phone] Wa alexandra GARCES [address] [place] MEDICAL OFFICE [facility] 2021-01-27 2021-01-27 Outpatient R RICKY [facility] [id number] Univers 09:10:00 09:10:00 JOSE A funk [facility] 2021-01-27 2021-01-27 Methods Examiner Lab, Ang - Db [facility] 1.2.840.1 14 [id number] Univers 08:43:23 08:58:23 Visit Jose A García [facility] 350.1.13.10 ity of [place] 4.2.7.2.686 Julián as JAKE?BLEA [phone] Wa alexandra GARCES [address] [facility] OFFICE [facility] 2021-01-27 2021-01-27 Office [facility] 1.2.840.114 [id number] Univers 07:50:24 08:20:[address] [facility] 350.1.13.10 it y of [place] 4.2.7.2.686 Julián as JAKE?BLEA [phone] Wa alexandra GARCES 0[address] [facility] OFFICE [facility] 2021-01-27 2021-01-27 Outpatient Jarad GARCÍA [facility] [id number] Univers 08:00:00 08:00:00 JOS EA funk [facility] 2021-01-27 2021-01-27 Telephone Ricky [facility] 1.2.638.743 [id number] Univers 00:00:00 00:00:00 [facility] 350.1.13.10 it y of [place] 4.2.7.2.686 Julián as JAKE?BLEA [phone] Wa alexandra CAS[address] OFFICE [facility] 2021-01-18 2021-01-18 Transition Carol Simmonsshay 1.2.840.114 [id number] Univers 00:00:00 00:00:00 of Care Suzi Martinez 350.1.13.10 it y of [place] [phone] [address] 2021-01-13 2021-01-15 [facility] Nyasia Collazo [facility] 1.2.840. 114 [id number] Univers 11:42:00 19:15:00 Encounter Talon Zhang 350.1.13.10 ity of [place].2.[place] [phone] [facility] [address] [place] 2021-01-14 2021-01-14 Surgery Charbernie [facility] 1.2.840.114 [id number] Univers 13:25:00 13:59:00 Colin diaz [place] 350.1.13.10 ity of [place]2.7.2.[place] Surgical [phone] [facility] [address] [place] 2021-01-11 2021-01-11 Imm/Inj Nurse, Louie Chilel [facility] 1.2.840.114 [id number] Univers 10:04:24 10:24:24 Visit Jose A Gracía 350.1.13.10 ity of [place] 4.2.7.2.686 Julián as Jake?Blea [phone] Wa alexandra [address] Medical Office Building 2021-01-11 2021-01-11 Outpatient R RICKY [facility] [id number] Univers 10:20:00 10:20:00 [facility] 2020-12-17 2020-12-17 [facility] Jaden Dow [facility] 1.2.840.114 [id number] Univers 08:58:01 23:59:00 Encounter Kalie 350.1.13.10 ity of [place].7.2.[place] [phone] [facility] [address] 2020-12-17 2020-12-17 Outpatient R JADEN DOW [facility] [id number] Univers 00:00:00 00:00:00 ity of [facility] 2020-12-10 2020-12-11 Emergency Anum [facility] 1.2.146.729 [id number] Univers 22:08:00 00:12:00 Fatemeh Jade 350.1.13.10 ity of [place].2.7.2.[place] [id number] [facility] [address] [place] 2020-12-02 2020-12-02 Laboratory Only, Adc Test [facility] 1.2.840. 114 [id number] Univers 11:15:59 11:30:59 Only Yenny Wright 350.1.13.10 ity [facility] 4.2.7.2.686 [facility] [phone] [facility] [address] 2020-12-02 2020-12-02 Outpatient Jarad WRIGHT [facility] [id number] Univers 09:15:00 09:15:00 YENNY funk [facility] 2020-12-02 2020-12-02 Orders Doctor STEFFI 1.2.840.114 [id number] Univers 00:00:00 00:00:00 Only Unassigned, FELICITA 350.1.13.10 ity of [place] [facility] 4.2.7.2.686 Julián as [phone] [facility] [address] 2020-11-18 2020-11-19 Emergency [facility] 1.2.785.994 [id number] Univers 23:17:00 01:39:00 Javier Jade 350.1.13.10 i ty [facility] 4.2.7.2.686 [facility] [phone] [facility] [address] 2020-11-18 2020-11-18 Outpatient MORGAN Rafaeladinorah HCATO DAYS [id number] [facility] 06:29:00 06:29:[address] [place] [address] Orthope dic Hospita l 2020-11-12 2020-11-12 Telephone STEFFI Lorenzo 1.2.572.809 [id number] Univers 00:00:00 00:00:00 Alessandra MIMS 350.1.13.10 i ty of [facility] 4.2.7.2.686 Julián as [phone] [facility] [address] 2020-11-12 2020-11-12 Telephone STEFFI Lorenzo 1.2.438.528 [id number] 00:00:00 00:00:00 Alessandra MIMS 350.1.13.10 [facility] 42.7.2.686 [id number] 019 2020-11-11 2020-11-11 Outpatient Jarad POWELL [facility] [id number] Univers 09:00:00 09:00:00 [facility] 2020-10-14 2020-10-14 Orders Doctor STEFFI 1.2.840.114 [id number] Univers 00:00:00 00:00:00 Only Unassigned, FELICITA 350.1.13.10 ity of [place] [facility] 4.2.7.2.686 Julián as [phone] [address] 2020-10-14 2020-10-14 Orders Doctor STEFFI 1.2.840.114 [id number] 00:00:00 00:00:00 Only Unassigned, FELICITA 350.1.13.10 [place] [facility] 4.2.7.2.686 [id number] 2020-10-05 2020-10-05 Outpatient JADEN MONTALVO [facility] [id number] Univers 09:30:00 09:30:00 ity [facility] 2020-10-05 2020-10-05 Orders Doctor KAPADIA 1.2.840.114 [id number] Univers 00:00:00 00:00:00 Only Unassigned, FELICITA 350.1.13.10 ity of [place] [facility] 4.2.7.2.686 Julián as [id number] [address] 2020-10-05 2020-10-05 Orders Doctor KAPADIA 1.2.840.114 [id number] 00:00:00 00:00:00 Only Unassigned, FELICITA 350.1.13.10 [place] [facility] 4.2.7.2.686 [id number] 2020-10-01 2020-10-01 Outpatient JADEN MONTALVO [facility] [id number] Univers 15:30:00 15:30:00 ity [facility] 2020-07-31 2020-07-31 Urgent Provider, Louie [facility] 1.2.840.114 [id number] Univers 17:32:33 18:06:34 Care Price Adeline [facility] 350.1.13. 10 ity of [place] 4.2.7.2.686 Julián as Professio [phone] [address] Office Building One 2020-07-31 2020-07-31 Urgent Provider, [facility] 1.2.096.274 [id number] 17:32:33 18:06:34 Care [facility] Urgent Health 350.1.13.10 Care [place] 4.2.7.2.686 Professio [phone] [place] [address] Office Building One 2020-07-31 2020-07-31 Outpatient R [facility] [id number] Univers 17:40:00 17:40:00 ity of [facility] 2020-06-14 2020-06-14 Reftamica [facility] 1.2.840.114 [id number] Univers 00:00:00 00:00:00 Jose A Health 350.1.13.10 it y of [place] 4.2.7.2.686 Julián as Professio [phone] [address] Office Building One 2020-06-14 2020-06-14 [facility] 1.2.840.114 [id number] 00:00:00 00:00:00 Jose A Health 350.1.13.10 [place] 4.2.7.2.686 Professio [phone] [place] [address] Office Building One 2020-06-10 2020-06-10 Orders Doctor STEFFI 1.2.840.114 [id number] Univers 00:00:00 00:00:00 Only Unassigned, FELICITA 350.1.13.10 ity of [place] [facility] 4.2.7.2.686 Julián as [phone] [address] 2020-06-10 2020-06-10 Orders Doctor STEFFI 1.2.840.114 [id number] 00:00:00 00:00:00 Only Unassigned, FELICITA 350.1.13.10 [place] [facility] 4.2.7.2.686 [id number] 009 2020-06-03 2020-06-03 Reftamica García[facility] 1.2.840.114 [id number] Univers 00:00:00 00:00:00 Jose A Health 350.1.13.10 it y of [place] 4.2.7.2.686 Julián as Professio [phone] [address] Office Building One 2020-06-03 2020-06-03 Refill Ricky WANAIDA 1.2.840.114 [id number] 00:00:00 00:00:00 [facility] 350.1.13.10 [place] 4.2.7.2.686 Professio [phone] nal 044 Office Building One 2020-06-01 2020-06-01 Patient Ron WANAIDA 1.2.840.114 [id number] Univers 00:00:00 00:00:00 Outreach [facility] 350.1.13.10 i ty of [facility] 4.2.7.2.[place] [phone] Me dical [address] 2020-06-01 2020-06-01 Patient Ron [facility] 1.2.840.114 [id number] 00:00:00 00:00:00 Outreach [facility] 350.1.13.10 [facility] 4.2.7.2.686 [facility] [id number] 388 2020-05-27 2020-05-27 Orders Doctor STEFFI 1.2.840.114 [id number] Univers 00:00:00 00:00:00 Only Unassigned, FELICITA 350.1.13.10 ity of [place] [facility] 4.2.7.2.686 Julián as [phone] [facility] 009 Branch 2020-05-27 2020-05-27 Orders Doctor STEFFI 1.2.840.114 [id number] 00:00:00 00:00:00 Only Unassigned, FELICITA 350.1.13.10 [place] [facility] 4.2.7.2.686 [id number] 009 2020-05-22 2020-05-[address] [facility] [id number] SLE 00:00:00 00:00:00 RASHI 2020-05-19 2020-05-19 Outpatient [facility] [id number] SLE 00:00:00 00:00:00 2020-05-13 2020-05-13 Telephone Ricky [facility] 1.2.581.821 [id number] Univers 00:00:00 00:00:00 [facility] 350.1.13.10 it y of [place] 4.2.7.2.686 Julián as Professio [phone] Me dical nal [address] [place] [address] 2020-05-13 2020-05-13 Telephone Ricky WANAIDA 1.2.832.674 [id number] 00:00:00 00:00:00 [facility] 350.1.13.10 [place] 4.2.7.2.686 Professio [phone] nal 044 [address] One 2020-04-26 2020-04-26 Orders Doctor STEFFI 1.2.840.114 [id number] Univers 00:00:00 00:00:00 Only Unassigned, FELICITA 350.1.13.10 ity of [place] [facility] 4.2.7.2.686 Julián as [phone] [address] 2020-04-26 2020-04-26 Orders Doctor STEFFI 1.2.840.114 [id number] 00:00:00 00:00:00 Only Unassigned, FELICITA 350.1.13.10 [place] [facility] 4.2.7.2.686 [phone] [facility] 2020-04-20 2020-04-20 Outpatient REY SmithTO PAIN [id number] [facility] 08:30:00 08:30:00 [facility] 2020-04-13 2020-04-13 [facility] 1.2.840.114 [id number] Univers 00:00:00 00:00:00 [facility] 350.1.13.10 it y of [place] 4.2.7.2.686 [place]án as Professio [phone] Me dical nal 044 [place] [facility] [address] 2020-04-13 2020-04-13 Reftamica [facility] 1.2.840.114 [id number] 00:00:00 00:00:00 [facility] 350.1.13.10 [place] 4.2.7.2.686 Professio [phone] nal 044 [address] 2020-04-06 2020-04-08 Inpatient EL REY SmithTO PAIN [id number] [facility] 10:30:00 04:14:06 E[facility]ny [facility] [place] [facility] 2020-04-07 2020-04-07 Orders Doctor STEFFI 1.2.840.114 [id number] Univers 00:00:00 00:00:00 Only Unassigned, FELICITA 350.1.13.10 [place] HOSPITAL 4.2.7.2.686 Julián as [phone] [facility] [address] 2020-04-07 2020-04-07 Orders Doctor STEFFI 1.2.840.114 [id number] 00:00:00 00:00:00 Only Unassigned, FELICITA 350.1.13.10 [place] [facility] 4.2.7.2.686 [phone] 009 2020-03-23 2020-03-23 Reftamica García [facility] 1.2.840.114 [id number] Univers 00:00:00 00:00:00 Jose A Health 350.1.13.10 it y of [place] 4.2.7.2.686 Julián as Professio [phone] Wa dical [address] Office Building One 2020-03-23 2020-03-23 Reftamica García [facility] 1.2.840.114 [id number] 75 00:00:00 00:00:00 Jose A Health 350.1.13.10 [place] 4.2.7.2.686 Professio [phone] [place] [address] Office Building One 2020-03-03 2020-03-03 Laboratory Only, [facility] Test [facility] 1.2.840. 114 [id number] Univers 08:05:24 08:20:24 Only Yenny Wright Kalie 350.1.13.10 ity of [place].2.[place] [phone] [facility] [address] [place] 2020-03-03 2020-03-03 Laboratory Only, [facility] 1.2.840.114 7 [id number] 08:05:24 08:20:24 Only Test Kalie 350.1.13.10 [place] 4.2.7.2.686 [place] [phone] 353 2020-03-03 2020-03-03 Outpatient R [facility] [id number] Univers 08:00:00 08:00:00 ity of [facility] 2020-02-03 2020-02-03 Office [facility] 1.2.840.114 [id number] Univers 09:28:06 09:43:06 Visit [facility] 350.1.13.10 it y of [place] 4.2.7.2.686 Julián as Professio [phone] Wa dical nal [address] [place] Office [facility] 2020-02-03 2020-02-03 Office [facility] 1.2.840.114 [id number] 09:28:06 09:43:06 Visit [facility] 350.1.13.10 [place] 4.2.7.2.686 Professio [phone] nal [address] [place] [address] 2020-02-03 2020-02-03 Outpatient Jarad GARCÍA [facility] [id number] Univers 09:30:00 09:30:00 JOSE A dinorah [facility] 2020-01-24 2020-01-24 Refill [facility] 1.2.840.114 [id number] Univers 00:00:00 00:00:00 [place] [address].1.13.10 it y of [place] 4.2.7.2.686 Julián as Professio [phone] Wa dical [address] 2020-01-22 2020-01-22 Outpatient Jarad GARCÍA [facility] [id number] Univers 08:00:00 08:00:00 JOSE A funk [facility] 2020-01-14 2020-01-16 Inpatient EL Smiht, HCATO PAIN [id number] [facility] 07:30:00 04:10:[address] [place] [address] [facility]ope [facility] 2020-01-15 2020-01-15 Outpatient Jarad GARCÍA [facility] [id number] Univers 07:30:00 07:30:00 JOSE A funk [facility] 2019-12-25 2019-12-25 Imm/Inj Nurse, Carly Su Pob I [facility] 1.2.8 40.114 [id number] Univers 12:49:48 13:17:37 Visit Jose A García [facility] 350.1.13.10 ity of [place] 4.2.7.2.686 Julián as Professio [phone] [address] Office [facility] One 2019-12-25 2019-12-25 Outpatient [facility] [id number] Univers 13:00:00 13:00:00 JOSE A itdinorah of [facility] 2019-12-25 2019-12-25 Reftamica [facility] 1.2.840.114 [id number] Univers 00:00:00 00:00:00 Jose A [facility] 350.1.13.10 it y of [place] 4.2.7.2.686 Julián as Professio [phone] [address] Office Building One 2019-11-05 2019-11-05 Ru Ariel [facility] 1.2.414.775 [id number] Univers 00:00:00 00:00:00 Wolf[facility] 350.1.13.10 it y of [place] 4.2.7.2.686 Julián as Professio [phone] [address] Office [facility] 2019-11-04 2019-11-04 Urgent Provider, [facility] 1.2.840.114 [id number] Univers 13:21:12 14:22:34 Care Cady Hardythia [facility] 350.1.13.10 ity of [place] 4.2.7.2.686 Julián as Professio [phone] [address] Office [facility] One 2019-11-04 2019-11-04 Outpatient R [facility] [id number] 005 Univers 13:20:00 13:20:00 ity of [facility] 2019-11-04 2019-11-04 Letter Doctor KAPADIA 1.2.840.114 [id number] Univers 00:00:00 00:00:00 (Out) Unassigned, FELICITA 350.1.13.10 ity of [place] [facility] 4.2.7.2.686 Julián as [phone] [address] 2019-10-07 2019-10-07 Reftamica [facility] 1.2.840.114 [id number] Univers 00:00:00 00:00:00 Jose A [facility] 350.1.13.10 it y of [place] 4.2.7.2.686 Julián as Professio [phone] Me dical nal 044 [facility] One 2019-09-30 2019-09-30 Lucia [facility] 1.2.840.114 [id number] Univers 00:00:00 00:00:00 Jose A [facility] 350.1.13.10 it y of [place] 4.2.7.2.686 Julián as Professio [phone] Wa dical nal [address] [place] Office [facility] One 2019-08-01 2019-08-01 Outpatient Luis HCAT[facility] PAIN [id number] [facility] 10:30:00 10:30:00 Yenny Jones [place] [facility] 2019-07-10 2019-07-10 Telephone [facility] 1.2.058.915 [id number] Univers 00:00:00 00:00:00 [facility] 350.1.13.10 it y of [place] 4.2.7.2.686 Julián as Professio [phone] Wa dical nal [address] [place] [address] One 2019-06-27 2019-06-27 Lucia [facility] 1.2.840.114 [id number] Univers 00:00:00 00:00:00 Jose A [facility] 350.1.13.10 it y of [place] 4.2.7.2.686 Julián as Professio [phone] [facility] nal [address] [place] [address] One 2019-06-11 2019-06-11 Outpatient Jarad GARCÍA [facility] [id number] Univers 08:30:00 08:30:00 JOSE A funk [facility] 2019-06-10 2019-06-10 Outpatient Jarad HARDY [facility] [id number] 004 Univers 12:00:00 12:00:00 DEEPTHI funk [facility] 2019-06-04 2019-06-04 Transition Niki Urias 1.2.840.114 [id number] Univers 00:00:00 00:00:00 of Care Ciera Martinez 350.1.13.10 it y of [place]2.7.2.686 [place] [phone] [address] 2019-06-04 2019-06-04 Lucia [facility] 1.2.840.114 [id number] Univers 00:00:00 00:00:00 Jose A [facility] 350.1.13.10 it y of [place] 4.2.7.2.686 Julián as Professio [phone] [address] Office [facility] One 2019-06-02 2019-06-03 Outpatient X SAAD KIRBY [facility] LEVAR [id number] Univers 05:50:55 14:53:00 ity of [facility] 2019-06-02 2019-06-03 Emergency Gurjit Perez [facility] 1.2.840.1 14 [id number] Univers 05:50:55 14:53:00 Kirby Nash 350.1.13.10 ity of [place] 4.2.7.2.686 [place] [facility] [phone] [address] 2019-06-02 2019-06-02 Orders Doctor STEFFI 1.2.840.114 [id number] Univers 00:00:00 00:00:00 Only Unassigned, FELICITA 350.1.13.10 ity of [place] [facility] 4.2.7.2.686 Julián as [phone] [address] 2019-05-23 2019-05-23 Ru García [facility] 1.2.962.992 [id number] Univers 00:00:00 00:00:00 [facility] 350.1.13.10 it y of [place] 4.2.7.2.686 Julián as Professio [phone] [address] Office [facility] One 2019-05-16 2019-05-16 Orders Doctor STEFFI 1.2.840.114 [id number] Univers 00:00:00 00:00:00 Only Unassigned, FELICITA 350.1.13.10 ity of [place] [facility]OSPITAL 4.2.7.2.686 Julián as [phone] [address] 2019-04-23 2019-04-23 Refill Ricky [facility] 1.2.840.114 [id number] Univers 00:00:00 00:00:00 Jose A [facility] 350.1.13.10 it y of [place] 4.2.7.2.686 Julián as Professio [phone] [address] Office [facility] One 2019-04-17 2019-04-17 Refill Ricky WANAIDA 1.2.840.114 [id number] Univers 00:00:00 00:00:00 Jose A [facility] 350.1.13.10 it y of [place] 4.2.7.2.686 Juilán as Professio [phone] Wa dicmichelle nal 044 [facility] One 2018-12-17 2018-12-17 Pre Visit Ricky WANAIDA 1.2.534.605 [id number] Univers 00:00:00 00:00:00 Outreach [facility] 350.1.13.10 i ty of [place]2.[place] [phone] Wa dical [address] [place] 2018-12-13 2018-12-14 Office Ricky WANAIDA 1.2.840.114 [id number] Univers 07:29:55 07:48:43 Visit Jose A [facility] 350.1.13.10 it y of [place] 4.2.7.2.686 Julián as Professio [phone] [facility] [address] [place] [address] One 2018-12-13 2018-12-13 Orders Doctor STEFFI 1.2.840.114 [id number] Univers 00:00:00 00:00:00 Only Unassigned, FELICITA 350.1.13.10 ity of [place] [facility]OSPITAL 4.2.7.2.686 Julián as [phone] [address] 2018-12-13 2018-12-13 Telephone Ricky WANAIDA 1.2.768.099 [id number] Univers 00:00:00 00:00:00 [facility] 350.1.13.10 it y of [place] 4.2.7.2.686 Julián as Professio [phone] Wa dical nal [address] [place] Office Building One Results Test Description Test Time Test Comments Results Result [facility] e Comments - XR FLUORO FOR 2022-02-07 SPINE INJ 18:53:00 [facility] : 1945 Sex: F Patient Name: STEVEN AMAYA Unit No: [id number] EXAMS: CPT CODE: [id number] XR FLUORO FOR SPINE INJ 73748 LUMBAR FACET INJECTION DIAGNOSTIC REFERRAL PHYSICIAN: None PREOPERATIVE DIAGNOSIS: Lumbar spondylosis without myelopathy or radiculopathy POSTOPERATIVE DIAGNOSIS: Lumbar spondylosis without myelopathy or radiculopathy PROCEDURE PERFORMED: Fluoroscopically guided needle localization of the bilateral L3-4, bilateral L4-5 and right L5-S1 facets with arthrograms and diagnostic injection of local anesthetic and steroid. FINDINGS: All joints showed marked degenerative changes in moderate to marked joint hypertrophy. Provocation was negative. Anesthetic response was positive with the patient noting relief of her low back pain. Preinjection VAS 4-5/10. Postinjection VAS 0/10. Steroid response pending follow-up. ESTIMATED BLOOD LOSS: Minimal ANESTHESIA: TIVA COMPLICATIONS: None DETAILS OF PROCEDURE: After obtaining stable vital signs, informed consent and IV access patient was taken to the fluoroscopy suite where the patient was placed in a prone position with all extremities padded and appropriate monitors placed. The patient was sterilely prepped prepped and draped over the lumbosacral spine. Using fluoroscopic visualization, the insertion sites were marked for a paravertebral approach to each joint. Using standard technique, a 26 -gauge needle was inserted into each joint capsule without paresthesias. At all levels, aspiration was negative for clear serous fluid. Isovue-300 contrast 0.2 mL was injected to produce each arthrogram. There were no signs of intravascular or intrathecal uptake. Bupivicaine 0.75% 0.25 mL with Lidocaine 4% 0.25 ml and triamcinolone 16 mg was then injected incrementally into each joint. There were no signs of intravascular or intrathecal uptake. The patient's vital signs remained stable. All needles were removed and the patient was taken to the PACU in good condition. Electronically Signed: Yenny Smith M.D. Image: Image 1 Image: Image 2 at 1853 Reported and signed by: Yenny Smith M.D. [facility] [place] NAME: STEVEN AMAYA [address] [facility] PHYS: Yenny Proctor MD [place] [address] : 1945 AGE: 76 SEX: F LOC: JAKUB PHONE #: [phone] EXAM DATE: 02/07/2022 STATUS: REG [facility] FAX #: [phone] RAD #: [id number] D/C DT PAGE 1 Signed Report (CONTINUED) Patient Name: STEVEN AMAYA Unit No: [id number] EXAMS: CPT CODE: [id number] XR FLUORO FOR SPINE INJ 09795 (Continued) CC: Technologist: Sheron Lao(R) Transcribed D/ (1852) [facility] [place] NAME: STEVEN AMAYA [address] [facility] PHYS: Yenny Proctor MD [place] [address] : 1945 AGE: 76 SEX: F LOC: JAKUB PHONE #: [phone] EXAM DATE: 02/07/2022 STATUS: REG SDC FAX #: [phone] RAD #: [id number] D/C DT PAGE 2 Signed Report Patient Name: STEVEN AMAYA Unit No: [id number] EXAMS: CPT CODE: [id number] XR FLUORO FOR SPINE INJ 17151 (Continued) Orig Print D/T: S: 02/07/2022 (1855) [facility] NAME: STEVEN AMAYA [address] [facility] PHYS: Yenny Proctor MD [place] [address] : 1945 AGE: 76 SEX: F LOC: JAKUB PHONE #: [phone] EXAM DATE: 02/07/2022 STATUS: REG SD FAX #: [phone] RAD #: [id number] D/C DT PAGE 3 Signed Report - XR FLUORO FOR 2022-01-24 SPINE INJ 19:11:00 [facility] 1945 Sex: F Patient Name: STEVEN AMAYA Unit No: [id number] EXAMS: CPT CODE: [id number] XR FLUORO FOR SPINE INJ 61368 LUMBAR DISCOGRAM AND INTRADISCAL INJECTION REFERRING PHYSICIAN: None PREOPERATIVE DIAGNOSIS: Discogenic low back pain POSTOPERATIVE DIAGNOSIS: Discogenic low back pain. PROCEDURE PERFORMED: Fluoroscopically guided needle localization of the L4-5 and L5-S1 discs with provocative discography and therapeutic intradiscal injection of local anesthetic and steroid. FINDINGS: Moderate loss of disc space height is seen at L4-5 with moderate to marked loss of disc space height at L5-S1. Diffuse annular degeneration was seen at each level. Provocation with injection was negative. Anesthetic response was positive with the patient noting relief of her low back pain. Preinjection VAS 6/10. Postinjection VAS 0/10. Steroid response pending follow-up. ANTIBIOTIC: Cefazolin IV and intradiscal. ESTIMATED BLOOD LOSS: Minimal ANESTHESIA: TIVA COMPLICATIONS: None DETAILS OF PROCEDURE: After obtaining stable vital signs, informed consent and IV access, with no contraindications to proceeding, the patient received preoperative antibiotics and was taken to the fluoroscopy suite where the patient was placed in a prone position with all extremities padded and appropriate monitors placed. The patient was sterilely prepped and draped over the lumbosacral spine. Under fluoroscopic visualization the selected discs were visualized and the insertion sites were marked for paramedian approaches. Using standard double needle no-touch technique, a 20 gauge spinal introducer needle was advanced to the level of the facets and a curved 25-gauge needle was then passed through the introducer and advanced into each disc without paresthesias. Isovue 300 contrast 0.2 ml was then injected to produce each discogram. Bupivacaine 0.75% 0.25 mL with lidocaine 4% 0.25 ml, Towetpykd222 mg/mL 0.2 ml and triamcinolone 30 mg was then injected at each disc, provocation was recorded and the needles were removed. There were no signs of intravascular or intrathecal uptake. The patient's vital signs remained stable. The patient was taken to the PACU in good condition. Electronically Signed: Yenny Smith M.D. Image: Image 1 [facility] NAME: STEVEN AMAYA [address] [facility] PHYS: Yenny Proctor MD [place], [place] [address] : 1945 AGE: 76 SEX: F LOC: BraydonDELVIN PHONE #: [phone] EXAM DATE: 01/24/2022 STATUS: REG [facility] FAX #: [phone] RAD #: [id number] D/C DT PAGE 1 Signed Report (CONTINUED) Patient Name: STEVEN AMAYA Unit No: [id number] EXAMS: CPT CODE: [id number] XR FLUORO FOR SPINE INJ 71037 (Continued) Image: Image 2 at 191 Reported and signed by: Yenny Smith M.D. CC: Yenny Smith MD Technologist: JACOB MILLER RT(R) Transcribed D/ (1910) Etienne.[facility] [place] NAME: STEVEN AMAYA [address] [facility] PHYS: Yenny Proctor MD [place], [place] [address] : 1945 AGE: 76 SEX: F LOC: BraydonDELVIN PHONE #: [phone] EXAM DATE: 01/24/2022 STATUS: REG [facility] FAX #: [phone] RAD #: [id number] D/C DT PAGE 2 Signed Report Patient Name: STEVEN AMAYA Unit No: [id number] EXAMS: CPT CODE: [id number] XR FLUORO FOR SPINE INJ 33183 (Continued) Orig Print D/T: S: 01/24/2022 (4) [facility] [place] NAME: STEVEN AMAYA [address] [facility] PHYS: Yenny Proctor MD [place], [place] [address] : 1945 AGE: 76 SEX: F LOC: JAKUB PHONE #: [phone] EXAM DATE: 01/24/2022 STATUS: REG SDC FAX #: [phone] RAD #: [id number] D/C DT PAGE 3 Signed Report POCT MOLECULAR FLU 2021-05-14 16:47:47 Test Item Value Reference Range Interpretation Comme nts POCT Molecular FluA (test code = 09729-0) Positive Negative A Lab Interpretation (test code = 79388-6) [facility] [id number] 16:47:47 Test Item Value Reference Range Interpretation Comments POCT Molecular FluA (test code = Positive Negative A 87481-4) Lab Interpretation (test code = Abnormal 25996-0) [facility]- XR FLUORO FOR SPINE [id number] 19:59:00 [facility] : 1945 Sex: F Patient Name: STEVEN AMAYA Unit No: [id number] EXAMS: CPT CODE: [id number] XR FLUORO FOR SPINE INJ 58882 LUMBAR FACET INJECTION DIAGNOSTIC REFERRAL PHYSICIAN: None PREOPERATIVE DIAGNOSIS: Lumbar spondylosis without myelopathy or radiculopathy POSTOPERATIVE DIAGNOSIS: Lumbar spondylosis without myelopathy or radiculopathy PROCEDURE PERFORMED: Fluoroscopically guided needle localization of the bilateralL4-5 and bilateral L5-S1 facets with arthrograms and diagnostic injection of local anesthetic and steroid. 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 Provocation with injection was negative. Anesthetic response was positive with the patient noting relief of her low back pain. Preinjection VAS 3-4/10. Postinjection VAS 0/10. Steroid response pendingfollow-up. ESTIMATED BLOOD LOSS: Minimal ANESTHESIA: TIVA COMPLICATIONS: None DETAILS OF PROCEDURE: After obtaining stable vital signs, informed consent and IV access patient was taken to the fluoroscopy suite where the patient was placed in a prone position with all extremities padded and appropriatemonitors placed. The patient was sterilely prepped prepped and draped over the lumbosacral spine. Using fluoroscopic visualization, the insertion sites were marked for a paravertebral approach to each joint. Using standard technique, a 26 -gauge needle was inserted into each joint capsule without paresthesias. At all levels, aspiration was negative for clear serous fluid. Isovue-300 contrast 0.2 mL was injected to produce each arthrogram. There were no signs of intravascular or intrathecal uptake. Bu pivicaine 0.75% 0.25 mL with Lidocaine 4% 0.25 ml and triamcinolone 16 mg was then injected incrementally into each joint. There were no signs of intravascular or intrathecal uptake. The patient's vital signs remained stable. All needles were removed and the patient was taken to the PACU in good condit ion. Image: Image 1 Image: Image 2 at 1959 Reported and signed by: Yenny Smith M.D. [facility] [place] NAME: STEVEN AMAYA [address] [facility] Main PHYS: Yenny Proctor MD [place], [place] [address] : 1945 AGE:75 SEX: F LOC: JAKUB PHONE #: [phone] EXAM DATE: 05/04/2021 STATUS: REG [facility] FAX #: [phone] RAD #: [id number] D/C DT PAGE 1 Signed Report (CONTINUED) Patient Name: STEVEN AMAYA Unit No: [id number] EXAMS: CPT CODE: [id number] XR FLUORO FOR SPINE INJ 46703 (Continued) CC: Technologist: Sheron Lao(R) Transcribed D/ (1958) [facility] [place] NAME: STEVEN AMAYA [address] [facility] PHYS: Yenny Proctor MD [place] [address] : 1945 AGE: 75 SEX: F LOC: JAKUB PHONE #: [phone] EXAM DATE: 05/04/2021 STATUS: REG [facility] FAX #: [phone] RAD #: [id number] D/C DT PAGE 2 Signed Report Patient Name: STEVEN AMAYA Unit No: [id number] EXAMS: CPT CODE: [id number] XR FLUORO FOR SPINE INJ 32328 (Continued) Orig Print D/T: S: 05/04/2021 (2001) [facility] [place] NAME: STEVEN AMAYA [address] [facility] PHYS: Yenny Proctor MD [place] [address] : 1945 AGE: 75 SEX: F LOC: JAKUB PHONE #: [phone] EXAM DATE: 05/04/2021 STATUS: REG [facility] FAX #: [phone] RAD #: [id number] D/C DT PAGE 3 Signed Report- XR FLUORO FOR SPINE [id number] 17:22:00 [facility] : 1945 Sex: F Patient Name: STEVEN AMAYA Unit No: [id number] EXAMS: CPT CODE: [id number] XR FLUORO FOR SPINE INJ 06648 LUMBAR DISCOGRAM AND INTRADISCAL INJECTION REFERRING PHYSICIAN: None PREOPERATIVE DIAGNOSIS: Discogenic low back pain POSTOPERATIVE DIAGNOSIS: Symptomatic degenerative L5-S1 disc PROCEDURE PERFORMED: Fluoroscopically guided needle localization of the L4-5 and L5-S1 discs with provocative discography and therapeutic intradiscal injection of local anesthetic and steroid. FINDINGS: Mild to moderate loss of disc space height is seen at L4-5 with internal annular degeneration. Provocation was negative.The L5-S1 disc shows marked marked loss of disc space height with diffuse annular degeneration and vacuum phenomena. Provocation with injection was partially concordant for usual pain. Anesthetic response was partial with the patient having persistent right lower extremity pain. Preinjection VAS 7/10.Postinjection VAS 3/10. Steroid response pending follow-up. ANTIBIOTIC: Clindamycin IV and intradiscal. ESTIMATED BLOOD LOSS: Minimal ANESTHESIA: TIVA COMPLICATIONS: None DETAILS OF PROCEDURE: After ob taining stable vital signs, informed consent and IV access, with no contraindications to proceeding,the patient received preoperative antibiotics and was taken to the fluoroscopy suite where the patient was placed in a prone position with all extremities padded and appropriate monitors placed. The pa tient was sterilely prepped and draped over the lumbosacral spine. Under fluoroscopic visualization the selected discs were visualized and the insertion sites were marked for paramedian approaches. Using standard double needle no- touch technique, a 20 gauge spinal introducer needle was advanced to thelevel of the facets and a curved 25-gauge needle was then passed through the introducer and advancedinto each disc without paresthesias. Isovue 300 contrast 0.2 ml was then injected to produce each discogram. Bupivacaine 0.75% 0.25 mL with lidocaine 4% 0.25 ml, Clindamycin 50 mg/mL 0.2 ml and triamcinolone 30 mg was then injected, provocation was recorded and the needles were removed. There were no signs of intravascular or intrathecal uptake. The patient's vital signs remained stable. The patient was taken to the PACU in good condition. Image: Image 1 [facility] NAME: STEVEN AMAYA [address] [facility] Main PHYS: Yenny Proctor MD [place], [place] [address] : 1945 AGE: 75 SEX: F LOC: JAKUB PHONE #: [phone] EXAM DATE: 04/20/2021 STATUS: REG SDCFAX #: [phone] RAD #: [id number] D/C DT PAGE 1 Signed Report (CONTINUED) Patient Name: STEVEN AMYAA Unit No: [id number] EXAMS: CPT CODE: [id number] XR FLUORO FOR SPINE INJ 88628 (Continued) Image: Image 2 Image: Image 3 Image: Image 4 at 1722 Reported and signed by: Yenny Smith M.D. CC: Technologist: Sheron Lao(R) Transcribed D/ (1721) [facility] [place] NAME: STEVEN AMAAY [address] [facility] PHYS: Yenny Proctor MD [place], [place] [address] : 1945 AGE: 75 SEX: F LOC: JAKUB PHONE #: [phone] EXAM DATE: 04/20/2021 STATUS: REG [facility] FAX #: [phone] RAD #: [id number] D/C DT PAGE 2 Signed Report Patient Name: STEVEN AMAYA UnitNo: [id number] EXAMS: CPT CODE: [id number] XR FLUORO FOR SPINE INJ 63059 (Continued) Orig Print D/T:S: 04/20/2021 (1724) [facility] [place] NAME: STEVEN AMAYA [address] [facility] Main PHYS: RENATOBRADLEYYenny Sierra MD [place], [place] [address] : 1945 AGE: 75 SEX: F LOC: JAKUB PHONE #: [phone] EXAM DATE: 04/20/2021 STATUS: REG [facility] FAX #: [phone] RAD #: [id number] D/C DT PAGE 3 Signed ReportTissue [id number] 22:10:00 Test Item Value Reference Range Interpretation Comments Case Report (test code Surgical Pathology = 104) Report Case: [id number] Authorizing Provider: Rashi Lakhani, Collected: 05/25/2020 08:42 AM Ordering Location: [facility] Received: 05/25/2020 10:04 AM PERIOPERATIVE SERVICES Pathologist: Rip Duncan MD Specimen: Plaque, RIGHT CAROTID PLAQUE DIAGNOSIS (test code = l6ppqQQkCZLol7amKCJyuSJ 3220) uZzEwMzNcZnRuYmpcdWMxIH tccnRmMVxlcGljOTIwMlxhb vMwYXFdgJNjL4RrjgeePZnm BA7gCM2vaSdpgHSonJKaEMA sYoQfm7cbm662pOXgz5jvPJ LUzbuhyVp5gZdzK71xw9Y2F vikK48ikVJaSQtgoQPjpuwh czIwIEFSVEVSWSwgUklHSFQ qA7OEL1ZNUGdeVV5FCAPRVB EBQ3DDFDl0DCTyuuCTETKGQ yRQJDZSIMYJJ9USYsfuY5SC K8mOYRGpJFNRAVLTT5RXICA PVElDIFBMQVFVRSBccGFyfX dzkwZuPLyxb8RbXPkyKWVgF O9xbQytUZCmXK1uGIMjH8oh gR7isvp5VkSvRFYjMuX2CHX tavU6Gem3ULVmGPeaq0yke9 XqDIRuOEh1vZbvAyOiQYBnw 2lzcyBcZmNoYXJzZXQwIEFy iMZeR056u5xma7vhllLxvEE 8PLJdCTB1UUdjjpPqqyV1BK ctgFRtObR1WIsrfcGzPKval oKvhwNwAbj4RLZlQ825ADX5 aCkpe7zpWSH4WEPaDGTuXxN cNu1sxELhF336XEBtJCSGEM BjbGm5PVIoxnTaapIfiIAGw 975U214v4siUBMsliPmaAwX eshqt7aeQ827VEDtcCBetkD xXgWkXIWpuASjpOQ2WKGlXN 1trxaoMQqaBBmcBJXcpdF2N ZYjjDMmJ9AuOWFdTG9ruqfd KFH5RCiwQBBjZOG8LoIuLXE se5Qravx9LrByob2xzs59CC H9i1OyjDgyBVA3XCJ8EdUvJ m9hbKBrJXHcGV5oQmBviIIq ZXBohq77kNxzOYbcZSX8PGL fewHzc1Gcl2ljOjMytfNiX0 qaT9NbUUKsRPVkHJGoCsGma sRvh4Vfr8AjtSGboIx9n5st AGJhYHCpsNgwu0yeHBW7ARM rgZAdO8zijA8oJCDlYP6ytd ixt6qkPUhmWUnnSGFnsVY7j aJ1ICYuqVSlT8GimM1dKKNj IWjxNIFyugk1AcKsZd5uzUW yeTcyMFxzYmtwYWdlXHBnbm NvbnRccGduZGVjXHBsYWluX HBsYWluXGYwXGZzMjRccWxc bGFuZzEwMzNcaGljaFxmMVx dEiIvVLCbBMxyZ8zuJrIjUp OgDfs9AJMohFXuTDNeOnl7Q QYtiATbXGEIgMejmT8nZQRy gPrtmT6egDV7NQFderIrkAK XcN3jLSGDvW4eAiN5YlIjKs B3HZi4WRZpkSDciS1= CPT Code(s) (test code p9lzeFIdYNRsmVT8ZoUdDLE = 3357) lw7yoe6NyaJHueUHwWBowsR QjcvAqwz68tXQ2oF72BR6jK YEsSqR2SAWezgI5Mmn4TRTg KUApgXGpH057c8esd0jppjC cxTR3yCoaGKZeHEYjNCxtED GuExWkEPmmSSH2OOj9FnKoO HBhcn0= CLINICAL HISTORY (test m8opyXIqCQMizSW7SnTdHZY code = 3356) mt8dim2WroWNggYVrKIhsnP CjkrAylq49hTU4vY78RV2pL KEuKkF9KBBtmuQ0Gfk4IHIa IYEczHGhL050j3zhx7bqglG fcTE6yZznHIPbZOZxFYxuIB QcExQaB5Qej1OpGSLwoRHnw 3NpcywgcmlnaHRccGFyfQ== SPECIMEN SOURCE (test i7lzgJHqSUXpeZC6OkGzRQH code = 3377) zw3kza0ZsrWIpuDJaTRuwjU JvhhBalt30sID8eY05MS3sM UVeXrT0LGDeugI0Rxq1JHDe XOVvwHDhM198p5jyk2gxroW etIM3zPdxFEVuLYPaMFifTF RfQiNeT1Txi8GvATszbdxim HRccGFyfQ== GROSS DESCRIPTION i9howQWbFMLnuCPxNlSaAZQ (test code = 3366) eMKIbu6crTHUodWDhEwHsTm NcZnRuYmpcdWMxXGRlZmYwe 5lew977jOAvm4qvVVHSpxnl hYt6g3zjXXCkVdM8lFXdEAc aY8ctpaBukLLnEIUdBHa3kS 09SPKbdN4swEXqGXafmgLwU nP5KNkcWLYhStV5QBDheLFj QEJmK8uaFODaFUxcZKVhRUu hnZFnWSB4zDyms5B3mTLrfT IlgVlsHxXmMmWtGCGZj3WkL Fz2mTrnO3OrURXrZpP1cNZg ZXYyHGxxNLEsFTUpgmC5aQ4 6JZuqxhT5qGEyz0Vgy51zi8 14cS6ltFBoALC8TDWuFCDwv MUrITXeSBP9GGKvvLBjE9r7 WgYtcPJfF1Z4GnKkiUQsU1M 1XrWlmUBpC3X4MjYocJDjOH RpeXZcKi3inVCqdRUtsc5ds e38OVA4r7YtsXlnZHO7HMU1 VwAkYp9yxACiDKHdRWYbcCS hQIMkRY9reCThNAMakM9ufg xjXHBnYnJkcmhlYWRccGdic lWgAf4sbDzhKFR1KQvgB1lc bN1hFdN0JBepM2mjiL8iGKb 6ISjmsRP5BJTtuW4bJM0tti aoe8lxCrMmZP1xiawmc9pwL dKcSD3evsw2b4toXaNdXZ6m kqocw2zxXxGiRTgeSVDnnew qIMYwe1AvnnmxHHHay5FhX4 OgoFhjE05hsCsuL81eZDSkf ZqiwL5ayIvphJ5hVoHbFsOb NFxwYXJkXHBsYWluXGYxXGZ zMjBcbGFuZzEwMzNcaGljaF ybMRhrApWxUBUtTUcmR9yiL jFcZnMyMCBBLiBSZWNlaXZl ZCBmcmVzaCBsYWJlbGVkIHd pdGggdGhlIHBhdGllbnRcJ2 C8qtRhRC7kKBKxCNAeF8UwZ DCwJ42uZKWalH5wCIReGK2e ICJwbGFxdWUiIGlzIGEgcHJ dhbwepUMgnDEmtmQrz0HfWD F2XhPrKAZbbM8xfKekoiEyI aX0WEdsa1npzpJlIRPqUGE9 AEY0mNOiXWNtBrjnpGAmNZO an64oyQXdj9ImfX5pESCkV5 9laF9hvYIwR0RmYHPqIYIuG T0ocL8hXYHlQH9pVqlpY65b zN3jZDszgVS8GHYdFLPOfDL ld2VhO7mpMY4qhFDhy2EmeU XbhCncj0XbnMitkxWkZRDbV CXxsePipTWsYHocqIPvT9X2 sC9sqlHnJDTujACtargcqMA ekF7iDC18JEPxJTphCABnqU LqpxVhsw7bNZXyuKUfi4Ash TA4gEOwDVZeG5Uwb33lLUHk JIUaoHUhuWV6ZTEjaN6hDRX rFXKthTdlq3uoYvZeVEDzaE EfYukcOGWnp79rPPpoujLgo QfzAFHUiWCcc1BjKFnaEDUx MDTPCOAwOTNQKWpVS4PTEWA tXHBhcn0= MICROSCOPIC r4oboLRfHIOleLB4NhXnPRJ DESCRIPTION (test code da6nka9HshONrdYQmUTmwcG = 3371) AzpcMcua19zHX6yS91IX0lY JFhUnP4THDtefG0Yrm9ZZQh TYKmuOHcO459b7lcz3mpzkP xxRR8bEibZWGhVFQpZMsaRB QsPiEqCKXlLu2kzTOxTZDjj n0= [facility] [id number] 22:10:00Surgical Pathology Report Case: [id number] Authorizing Provider: Rashi Lakhani, Collected: 05/25/2020 08:42 AM Ordering Location: [facility] Received: 05/25/2020 10:04 AM PERIOPERATIVE SERVICES Pathologist: Rip Duncan MD Specimen: Plaque, RIGHT CAROTID PLAQUE ARTERY, RIGHT CAROTID, 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 Received fresh labeled with the patient's name, medical record number and "plaque" is a previously incised tubular portion of yellow-red plaque with a bifurcation measuring 4 cm in length and ranging 0.4-0.9 cm in diameter. The specimen is serially sectioned to reveal calcifications measuring up to 0.4 cm in thickness. Product Transfer Pumper sections are submitted in A1, following decalcification.VIDA Salcedo, PA ([facility])cmPerformedWindham Hospital Metabolic [id number] 06:29:00 Test Item Value Reference Range Interpretation Comments Sodium (test code = 133 meq/L 136-145 L 2951-2) Potassium (test code = 4.0 meq/L 3.5-5.1 2823-3) Chloride (test code = 99 meq/L 98-107 2075-0) CO2 (test code = 27 meq/L -29 2027-9) BUN (test code = 11 mg/dL 7-21 3094-0) Creatinine (test code 0.73 mg/dL 0.57-1.25 = 2160-0) Glucose (test code = 120 mg/dL 70-105 H 2345-7) Calcium (test code = 8.8 mg/dL 8.4-10.2 33275-8) EGFR (test code = 78 mL/min/1.73 [place] [address]-3) NOT ACCURATE CREATININE CLEARANCE IN PREDICTING GLOMERULAR FILTRATION RATE . ESTIMATED GFR I S NOT APPLICABLE FOR DIALYSIS PATIENTS. CARLOS ALBERTO (test code = CARLOS ALBERTO) Admitting Interviewer ID - SM Lab Interpretation Abnormal (test code = 09363-8) [facility] METABOLIC [id number] 06:29:00 Test Item Value Reference Range Interpretation Comments SODIUM (BEAKER) 133 meq/L 136-145 L (test code = 381) POTASSIUM (BEAKER) 4.0 meq/L 3.5-5.1 (test code = 379) CHLORIDE (BEAKER) 99 meq/L 98-107 (test code = 382) CO2 (BEAKER) (test 27 meq/L -29 code = 355) BLOOD UREA NITROGEN 11 mg/dL 7-21 (BEAKER) (test code = 354) CREATININE (BEAKER) 0.73 mg/dL 0.57-1.25 (test code = 358) GLUCOSE RANDOM 120 mg/dL 70-105 H (BEAKER) (test code = 652) CALCIUM (BEAKER) 8.8 mg/dL 8.4-10.2 (test code = 697) EGFR (BEAKER) (test 78 mL/min/1.73 ESTIMA CAITLIN GFR IS code = 1092) sq m NOT ACCURATE CREATININE CLEARANCE IN PREDICTING GLOMERULAR FILTRATION RATE . ESTIMATED GFR I S NOT APPLICABLE FOR DIALYSIS PATIEN TS. Admitting Interviewer ID - [facility]BC (Hemogram only)2020-05-26 05:34:00 Test Item Value Reference Range Interpretation Comments WBC (test code = 6690-2) 8.2 See_Comment [A utomated message] The system [employer] generated this result transmitted ref erence range: 3.5 - 10 .5 K/L. The refe rence range was not u sed to interpret this result as normal/abnor mal. RBC (test code = 789-8) 3.89 See_Comment L [Au tomated message] The system [employer] generated this result transmitted ref erence range: 3.93 - 5 .22 M/L. The refe rence range was not u sed to interpret this result as normal/abnor mal. MCHC (test code = 786-4) 33.1 See_Comment L [A utomated message] The system [employer] generated this result transmitted ref erence range: 32.2 - 3 5.5 GM/DL. The refe rence range was not u sed to interpret this result as normal/abnor mal. Hematocrit (test code = 32.9 % 34.1-44.9 L 4544-3) MCV (test code = 787-2) 84.6 fL 79.4-94.8 MCH (test code = 785-6) 28.0 pg 25.6-32.2 RDW (test code = 788-0) 15.1 % 11.7-14.4 H Platelets (test code = 208 See_Comment [Aut omated message] 207-3) The system [employer] generated this result transmitted ref erence range: 150 - 45 0 K/CU MM. The referen ce range was not u sed to interpret this result as normal/abnor mal. MPV (test code = 10.0 fL 9.4-12.3 37732-6) nRBC (test code = 413) 0 See_Comment [Aut omated message] The system [employer] generated this result transmitted ref erence range: 0 - 0 /1 00 WBC. The refere nce range was not u sed to interpret this result as normal/abnor mal. Lab Interpretation (test Abnormal code = 11456-0) [facility])2020-05-26 05:34:00 Test Item Value Reference Range Interpretation Comments WHITE BLOOD CELL COUNT (BEAKER) 8.2 K/ L 3.5-10.5 (test code = 775) RED BLOOD CELL COUNT (BEAKER) 3.89 M/ L 3.93-5.22 L (test code = 761) HEMOGLOBIN (BEAKER) (test code = 10.9 GM/DL 11.2-15.7 L 410) HEMATOCRIT (BEAKER) (test code = 32.9 % 34.1-44.9 L 411) MEAN CORPUSCULAR VOLUME (BEAKER) 84.6 fL 79.4-94.8 (test code = 753) MEAN CORPUSCULAR HEMOGLOBIN 28.0 pg 25.6-32.2 (BEAKER) (test code = 751) MEAN CORPUSCULAR HEMOGLOBIN CONC 33.1 GM/DL 32.2-35.5 (BEAKER) (test code = 752) RED CELL DISTRIBUTION WIDTH 15.1 % 11.7-14.4 H (BEAKER) (test code = 412) PLATELET COUNT (BEAKER) (test 208 K/CU MM 150-450 code = 756) MEAN PLATELET VOLUME (BEAKER) 10.0 fL 9.4-12.3 (test code = 754) NUCLEATED RED BLOOD CELLS 0 /100 WBC 0-0 (BEAKER) (test code = 413) shadi [id number] 07:03:00 Test Item Value Reference Range Interpretation Comments ABO Grouping (test code = 2588) A Rh Factor (test code = 2589) POS [facility]ucose [id number] 06:05:00 Test Item Value Reference Range Interpretation Comments POC-Glucose Meter (test 106 mg/dL 70-110 : TE STED AT [facility] code = 1538) [address] [facility], 770 30: Admitting Interviewer/Techni shilpi ID = [id number] for SUSY BYRNE AL Lab Interpretation (test Normal code = 51897-2) [facility]UCOSE [id number] 06:05:00 Test Item Value Reference Range Interpretation Comments POC-GLUCOSE METER 106 mg/dL 70-110 : TESTED A T [facility] [address] (BEAKER) (test code [facility], = 1538) [address]: Admitting Interviewer/Techni shilpi ID = [id number] for YAIR FISHMAN SARS-CoV2/RT-PCR (Asymptomatic ONLY)2020-05-23 08:12:00 Test Item Value Reference Range Interpretation Comments SARS-COV2/RT-PCR Negative Not Detected, (test code = Negative, See 09874-0) external report for linked test SARS-COV-2 [facility] PERFORMING LAB (test code = 72636-7) CARLOS ALBERTO (test code = COMMENT:Negative result CARLOS ALBERTO) for this test determines that SARS-CoV-2 RNA was not present in the specimen above the Limit of Detection (LOD). However, Negative results do not preclude SARS-CoV-2 infection and should not be used as the sole basis for treatment or patient management decisions. Negative results must be combined with clinical observations, patient history, and epidemiological information. A false negative result may occur if a specimen is improperly collected, transported or handled. A false negative result should be considered if patient's recent exposures or clinical presentation indicate that COVID-19 (SARS-CoV-2) is likely and diagnostic tests for other causes of illness are negative. Re-testing should be considered in cases of suspected false negatives. The limit of detection for this assay is 100 copies/mL. This SARS CoV-2 test is a real-time RT-PCR test intended for the qualitative detection of nucleic acid from SARS-CoV-2 in a nasopharyngeal swab specimen collected from individuals suspected of COVID-19 by their healthcare provider. This test has not been Food and Drug Administration (FDA) cleared or approved. This is a modified version of an approved Emergency Use Authorization (EUA) and is in the process of review by the FDA. Once authorized by the FDA, the issued EUA will be effective until the declaration that circumstances exist justifying the authorization of the emergency use of in vitro diagnostic tests for detection and/or diagnosis of COVID-19 is terminated under Section 564(b)(2) of the Act or the EUA is revoked under Section 564(g) of the Act. Testing was performed using the Sagence SARS-CoV-2 assay. Fact Sheet for Healthcare Providers:https://www.[employer]/phuong/RT_SA PS-MxA-1_FCO_Sovt_Ngauk_ 51-295056.pdf Fact Sheet for Healthcare Patients:https://www.[employer]/phuong/RT_SAR T-KjL-7_Oinpuxk_Fdno_Vkz et_EN_51-702702Z3.pdf Performing Laboratory:[facility], [place] [address] [place], [place] [address]ARS-COV2/RT-PCR ([facility])2020-05-23 08:12:00 Test Item Value Reference Range Interpretation Comments SARS-COV2/RT-PCR (test Negative Not Detected, Negative, code = 7687887) See external report for linked test SARS-COV-2 PERFORMING LAB [facility] (test code = 8908872) COMMENT:Negative result for this test determines that SARS-CoV-2 RNA was not present in the specimenabove the Limit of Detection (LOD). However, Negative results do not preclude SARS-CoV-2 infection and should not be used as the sole basis for treatment or patient management decisions. Negative results must be combined with clinical observations, patient history, and epidemiological information. A false negative result may occur if a specimen is improperly collected, transported or handled. A falsenegative result should be considered if patient's recent exposures or clinical presentation indicatethat COVID-19 (SARS-CoV-2) is likely and diagnostic tests for other causes of illness are negative. Re-testing should be considered in cases of suspected false negatives.The limit of detection for thisassay is 100 copies/mL.This SARS CoV-2 test is a real-time RT-PCR test intended for the qualitative detection of nucleic acid from SARS-CoV-2 in a nasopharyngeal swab specimen collected from individuals suspected of COVID-19 by their healthcare provider.This test has not been Food and Drug Administration (FDA) cleared or approved. This is a modified version of an approved Emergency Use Authorization (EUA) and is in the process of review by the FDA. Once authorized by the FDA, the issued EUA will be e ffective until the declaration that circumstances exist justifying the authorization of the emergency use of in vitro diagnostic tests for detection and/or diagnosis of COVID-19 is terminated under Section 564(b)(2) of the Act or the EUA is revoked under Section 564(g) of the Act.Testing was performedusing the Kang SARS-CoV-2 assay.Fact Sheet for Healthcare Providers:https://www.[employer].PlaytestCloud/sa l/JY_JVXY-NtR-8_WBV_Favl_Ogobv_70-646180.pdfFact Sheet for Healthcare Patients:https://www.[employer]. [employer]/phuong/FC_GPBN-LzB-8_Igkptrp_Ngoj_Dibml_[place]_90-033402D9.pdfPerforming Laboratory:[place] [address] [place] [address] Electrocardiogram, 78-[id number] 11:39:02Interface, External Ris In - 05/22/2020 11:39 AM CSTVentricular Rate 46 BPMAtrial Rate 46 BPMP-R Interval 210 msQRS Duration 94 msQ-T Interval 442 msQTC Calculation(Bazett) 386 msP [place] 82 degreesR [place] 58 degreesT [place] 61 degreesSinus bradycardia with 1st degree A-V blockNonspecific ST abnormalityNo previous ECGs availableConfirmed by MD Sutton Roberto ([id number]) on 05/22/2020 11:38:58 [facility], [id number] 11:11:00 Test Item Value Reference Range Interpretation Comments ABO/RH AUTOMATED (BEAKER) (test A POSITIVE code = 2260) Ab Scrn (test code = 890-4) NEGATIVE [facility] [id number] 10:37:00 Test Item Value Reference Range Interpretation Comments SODIUM (BEAKER) 135 meq/L 136-145 L (test code = 381) POTASSIUM (BEAKER) 3.7 meq/L 3.5-5.1 (test code = 379) CHLORIDE (BEAKER) 97 meq/L 98-107 L (test code = 382) CO2 (BEAKER) (test 30 meq/L 22-29 H code = 355) BLOOD UREA NITROGEN 14 mg/dL 7-21 (BEAKER) (test code = 354) CREATININE (BEAKER) 0.99 mg/dL 0.57-1.25 (test code = 358) GLUCOSE RANDOM 81 mg/dL 70-105 (BEAKER) (test code = 652) CALCIUM (BEAKER) 9.7 mg/dL 8.4-10.2 (test code = 697) EGFR (BEAKER) (test 55 mL/min/1.73 ESTIMA CAITLIN GFR IS code = 1092) sq m NOT ACCURATE CREATININE CLEARANCE IN PREDICTING GLOMERULAR FILTRATION RATE . ESTIMATED GFR I S NOT APPLICABLE FOR DIALYSIS PATIRYAN TS. Admitting Interviewer ID - PIAYA LProthrombin time/[id number] 10:33:00 Test Item Value Reference Interpretation Comments Range Protime (test code = 11.7 See_Comment L [Autom ated 4382-2) message] The system which generated this result transmitted reference range : 11.9 - 14.2 seconds. The reference range was not used to interpret this result as normal/abnormal . INR (test code = 0.89 See_Comment [Automated 4281-6) message] The system which generated this result transmitted reference range : <=5.90. The reference range was not used to interpret this result as normal/abnormal . CARLOS ALBERTO (test code = Effective 08/22/2018: CARLOS ALBERTO) PT Reference Range ChangeNew: 11.9-14.2 Previous: 11.7-14.7 RECOMMENDED COUMADIN/WARFARIN INR THERAPY RANGESSTANDARD DOSE: 2.0-3.0 Includes: PROPHYLAXIS for venous thrombosis, systemic embolization; TREATMENT for venous thrombosis and/or pulmonary embolus.HIGH RISK: Target INR is 2.5-3.5 for patients wiht mechanical heart valves. Lab Interpretation Abnormal (test code = 91223-0) [facility] CenterPROTHROMBIN TIME/[id number] 10:33:00 Test Item Value Reference Range Interpretation Comments PROTIME (BEAKER) 11.7 seconds 11.9-14.2 L (test code = 759) INR (BEAKER) (test 0.89 See_Comment [Automat ed message] code = 370) The system [employer] generated this result transmitted ref erence range: <=5.90. The reference range was not used to int erpret this result as normal/abnormal . Effective 08/22/2018: PT Reference Range ChangeNew: 11.9-14.2 Previous: 11.7- 14.7RECOMMENDED COUMADIN/WARFARIN INR THERAPY RANGESSTANDARD DOSE: 2.0-3.0 Includes: PROPHYLAXIS for venous thrombosis, systemic embolization; TREATMENT for venous thrombosis and/or pulmonary embolus.HIGH RISK: Target INR is 2.5-3.5 for patients wiht mechanical heart valves.CBC with platelet count + automated [id number] 10:24:00 Test Item Value Reference Range Interpretation Comments WBC (test code = 6690-2) 6.8 See_Comment [A utomated message] The system [employer] generated this result transmitted ref erence range: 3.5 - 10 .5 K/L. The refe rence range was not u sed to interpret this result as normal/abnor mal. RBC (test code = 789-8) 4.37 See_Comment [Au tomated message] The system [employer] generated this result transmitted ref erence range: 3.93 - 5 .22 M/L. The refe rence range was not u sed to interpret this result as normal/abnor mal. MCHC (test code = 786-4) 32.1 See_Comment L [A utomated message] The system [employer] generated this result transmitted ref erence range: 32.2 - 3 5.5 GM/DL. The refe rence range was not u sed to interpret this result as normal/abnor mal. Hematocrit (test code = 38.0 % 34.1-44.9 4544-3) MCV (test code = 787-2) 87.0 fL 79.4-94.8 MCH (test code = 785-6) 27.9 pg 25.6-32.2 RDW (test code = 788-0) 15.1 % 11.7-14.4 H Platelets (test code = 232 See_Comment [Aut omated message] 667-3) The system [employer] generated this result transmitted ref erence range: 150 - 45 0 K/CU MM. The referen ce range was not u sed to interpret this result as normal/abnor mal. MPV (test code = 10.1 fL 9.4-12.3 20455-5) nRBC (test code = 413) 0 See_Comment [Aut omated message] The system [employer] generated this result transmitted ref erence range: 0 - 0 /1 00 WBC. The refere nce range was not u sed to interpret this result as normal/abnor mal. % Neutros (test code = 71 % 429) % Lymphs (test code = 20 % 430) % Monos (test code = 7 % 431) % Eos (test code = 432) 1 % % Baso (test code = 437) 1 % # Neutros (test code = 4.81 See_Comment [Aut omated message] 670) The system [employer] generated this result transmitted ref erence range: 1.56 - 6 .13 K/L. The refe rence range was not u sed to interpret this result as normal/abnor mal. # Lymphs (test code = 1.37 See_Comment [Auto mated message] 414) The system [employer] generated this result transmitted ref erence range: 1.18 - 3 .74 K/L. The refe rence range was not u sed to interpret this result as normal/abnor mal. # Monos (test code = 0.45 See_Comment H [Autom ated message] 415) The system [employer] generated this result transmitted ref erence range: 0.24 - 0 .36 K/L. The refe rence range was not u sed to interpret this result as normal/abnor mal. # Eos (test code = 416) 0.08 See_Comment [Au tomated message] The system [employer] generated this result transmitted ref erence range: 0.04 - 0 .36 K/L. The refe rence range was not u sed to interpret this result as normal/abnor mal. # Baso (test code = 417) 0.05 See_Comment [A utomated message] The system [employer] generated this result transmitted ref erence range: 0.01 - 0 .08 K/L. The refe rence range was not u sed to interpret this result as normal/abnor mal. Immature 0 % 0-1 Granulocytes-Relative (test code = 2801) Lab Interpretation (test Abnormal code = 72269-4) [facility] W/PLT COUNT & AUTO [id number] 10:24:00 Test Item Value Reference Range Interpretation Comments WHITE BLOOD CELL COUNT (BEAKER) 6.8 K/ L 3.5-10.5 (test code = 775) RED BLOOD CELL COUNT (BEAKER) 4.37 M/ L 3.93-5.22 (test code = 761) HEMOGLOBIN (BEAKER) (test code = 12.2 GM/DL 11.2-15.7 410) HEMATOCRIT (BEAKER) (test code = 38.0 % 34.1-44.9 411) MEAN CORPUSCULAR VOLUME (BEAKER) 87.0 fL 79.4-94.8 (test code = 753) MEAN CORPUSCULAR HEMOGLOBIN 27.9 pg 25.6-32.2 (BEAKER) (test code = 751) MEAN CORPUSCULAR HEMOGLOBIN CONC 32.1 GM/DL 32.2-35.5 L (BEAKER) (test code = 752) RED CELL DISTRIBUTION WIDTH 15.1 % 11.7-14.4 H (BEAKER) (test code = 412) PLATELET COUNT (BEAKER) (test 232 K/CU MM 150-450 code = 756) MEAN PLATELET VOLUME (BEAKER) 10.1 fL 9.4-12.3 (test code = 754) NUCLEATED RED BLOOD CELLS 0 /100 WBC 0-0 (BEAKER) (test code = 413) NEUTROPHILS RELATIVE PERCENT 71 % (BEAKER) (test code = 429) LYMPHOCYTES RELATIVE PERCENT 20 % (BEAKER) (test code = 430) MONOCYTES RELATIVE PERCENT 7 % (BEAKER) (test code = 431) EOSINOPHILS RELATIVE PERCENT 1 % (BEAKER) (test code = 432) BASOPHILS RELATIVE PERCENT 1 % (BEAKER) (test code = 437) NEUTROPHILS ABSOLUTE COUNT 4.81 K/ L 1.56-6.13 (BEAKER) (test code = 670) LYMPHOCYTES ABSOLUTE COUNT 1.37 K/ L 1.18-3.74 (BEAKER) (test code = 414) MONOCYTES ABSOLUTE COUNT (BEAKER) 0.45 K/ L 0.24-0.36 H (test code = 415) EOSINOPHILS ABSOLUTE COUNT 0.08 K/ L 0.04-0.36 (BEAKER) (test code = 416) BASOPHILS ABSOLUTE COUNT (BEAKER) 0.05 K/ L 0.01-0.08 (test code = 417) IMMATURE GRANULOCYTES-RELATIVE 0 % 0-1 PERCENT (BEAKER) (test code = 2801) - XR FLUORO FOR SPINE [id number] 21:10:00 [facility] 1945 Sex: F Patient Name: STEVEN AMAYA Unit No: [id number] EXAMS: CPT CODE: [id number] XR FLUORO FOR SPINE INJ 38698 LUMBAR FACET INJECTION DIAGNOSTIC REFERRAL PHYSICIAN: None PREOPERATIVE DIAGNOSIS: Lumbar spondylosis without myelopathy or radiculopathy POSTOPERATIVE DIAGNOSIS: Lumbar spondylosis without myelopathyor radiculopathy PROCEDURE PERFORMED: Fluoroscopically guided needle localization of the bilateral L3-4 and bilateral L4-5 facets with arthrograms and diagnostic injection of local anesthetic and steroid. 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 Provocation was negative. Anesthetic response was positive with the patientnoting complete relief of her low back pain. Significant relief is obtained from prior IDS. Preinjection VAS 2/10. Postinjection VAS 0/10. Steroid response pending follow-up. ESTIMATED BLOOD LOSS: Minimal ANESTHESIA: TIVA COMPLICATIONS: None DETAILS OF PROCEDURE: After obtaining stable vital signs, informed consent and IV access patient was taken to the fluoroscopy suite where the patient was placed in a prone position with all extremities padded and appropriate monitors placed. The patient was sterilely prepped prepped and draped over the lumbosacral spine. Using fluoroscopic visualization, the in sertion sites were marked for a paravertebral approach to each joint. Using standard technique, a 26-gauge needle was inserted into each joint capsule without paresthesias. At all levels, aspiration was negative for clear serous fluid. Isovue-300 contrast 0.2 mL was injected to produce each arthrogram. There were no signs of intravascular or intrathecal uptake. Bupivicaine 0.75% 0.5 mL with Lidocaine 4% 0.25 ml and triamcinolone 12 mg was then injected incrementally into each joint. There were no signs of intravascular or intrathecal uptake. The patient's vital signs remained stable. All needles were removed and the patient was taken to the PACU in good condition. Image: Image 1 Image: Image 2 at 2109 Reported and signed by: Yenny Smith M.D. [facility] NAME: STEVEN AMAYA [address] [facility] PHYS: Yenny Proctor MD [place], [place] [address] : 1945 AGE: 74 SEX: F LOC:JAKUB PHONE #: [phone] EXAM DATE: 04/20/2020 STATUS: REG [facility] FAX #: [phone] RAD #: [id number] D/C DT PAGE 1 Signed Report (CONTINUED) Patient Name: STEVEN AMAYA Unit No: [id number] EXAMS: CPT CODE: [id number] XR FLUORO FOR SPINE INJ 99873 (Continued) CC: Technologist: Sheron Lao(Jarad) Transcribed D/ (2109) [facility] NAME: STEVEN AMAYA [address] [facility] PHYS: Yenny Proctor MD [place], [place] [address] : 1945 AGE: 74 SEX: F LOC: JAKUB PHONE #: [phone] EXAM DATE: 04/20/2020 STATUS: REG [facility] FAX #: [phone] RAD #: [id number] D/C DT PAGE 2 Signed Report Patient Name: STEVEN AMAYA Unit No: [id number] EXAMS: CPT CODE: [id number] XR FLUORO FOR SPINE INJ 33997 (Continued) Orig Print D/T: S: 04/20/2020 (2112) [facility] NAME: STEVEN AMAYA [address] [facility] PHYS: Yenny Proctor MD [place], [place] [address] : 1945 AGE: 74 SEX: F LOC: JAKUB PHONE #: [phone] EXAM DATE: 04/20/2020 STATUS: REG SD FAX #: [phone] RAD #: [id number] D/C DT PAGE 3 Signed ReportGLUBED 2020-04-20 08:40:00 Test Item Value Reference Range Interpretation Comments GLUBED (test code = GLUBED) 94 mg/dL 60-125 N [id number] 08:40:00 Test Item Value Reference Range Interpretation Comments GLUBED (test code = GLUBED) 90 mg/dL 60-125 N - XR FLUORO FOR SPINE [id number] 20:05:00 [facility] 1945 Sex: F Patient Name: STEVEN AMAYA Unit No: [id number] EXAMS: CPT CODE: [id number] XR FLUORO FOR SPINE INJ 33630 LUMBAR DISCOGRAM AND INTRADISCAL INJECTION REFERRING PHYSICIAN: None PREOPERATIVE DIAGNOSIS: Discogenic low back pain POSTOPERATIVE DIAGNOSIS: Symptomatic degenerative L4-5 and L5-S1 discs PROCEDURE PERFORMED: Fluoroscopically guided needle localization of the L4-5 and L5-S1 discs with provocative discography and therapeutic intradiscal injection of local anesthetic and steroid. FINDINGS: The L4-5 disc shows moderate internal annular degeneration without significant loss of disc space height. Annular extravasation extends posteriorly. The L5-S1 disc shows moderate loss of disc space height with vacuum phenomenon and diffuse annular degeneration. Provocation with injection was negative. Anestheticresponse was positive with the patient noting complete relief of her low back pain. Preinjection VAS 4/10. Postinjection VAS 0/10. Steroid response pending follow-up. ANTIBIOTIC: Clindamycin IV and intradiscal. ESTIMATED BLOOD LOSS: Minimal ANESTHESIA: TIVA COMPLICATIONS: None DETAILS OF PROCEDURE: After obtaining stable vital signs, informed consent and IV access, with no contraindications to proceeding, the patient received preoperative antibiotics and was taken to the fluoroscopy suite where the patient was placed in a prone position with all extremities padded and appropriate monitors placed.The patient was sterilely prepped and draped over the lumbosacral spine. Under fluoroscopic visualization the selected discs were visualized and the insertion sites were marked for paramedian approaches. Using standard double needle no-touch technique, a 20 gauge spinal introducer needle was advanced to the level of the facets and a curved 25-gauge needle was then passed through the introducer and advanced into the center of each disc without paresthesias. Isovue 300 contrast 0.2 ml with Jboamxhswxk25 mg/mL 0.2 ml was then injected to produce each discogram. Bupivacaine 0.75% 0.25 mL with lidocaine 4% 0.5 ml with triamcinolone 30 mg was then injected, provocation was recorded and the needles wereremoved. There were no signs of intravascular or intrathecal uptake. The patient's vital signs remained stable. The patient was taken to the PACU in good condition. [facility] NAME: STEVEN CR Shay [address] [facility] PHYS: Yenny Proctor MD [place], [place] [address] : 1945 AGE: 74 SEX: F LOC: JAKUB PHONE #: [phone] EXAM DATE: 04/06/2020 STATUS:REG [facility] FAX #: [phone] RAD #: [id number] D/C DT PAGE 1 Signed Report (CONTINUED) Patient Name: STEVEN AMAYA Unit No: [id number] EXAMS: CPT CODE: [id number] XR FLUORO FOR SPINE INJ 08601 (Continued) Image: Image 1 Image: Image 2 Image: Image 3 at 2004 Reported and signed by: Yenny Smith M.D. CC: Technologist: Sheron Lao(R) Transcribed D/ (2004) [facility] NAME: STEVEN AMAYA [address] [facility] PHYS: Yenny Proctor MD [place] [address] : 1945 AGE: 74 SEX: F LOC: JAKUB PHONE #: [phone] EXAM DATE: 04/06/2020 STATUS: REG [facility] FAX #: [phone] RAD #: [id number] D/C DT PAGE 2 Signed Report Patient Name: STEVEN AMAYA Unit No: [id number] EXAMS: CPT CODE: [id number] XR FLUORO FOR SPINE INJ 92934 (Continued) Orig Print D/T: S: 04/06/2020 (2007) [facility] NAME: STEVEN AMAYA [address] [facility] PHYS: Yenny Proctor MD [place], [place] [address] : 1945 AGE: 74 SEX: F LOC: JAKUB PHONE #: [phone] EXAM DATE: 04/06/2020 STATUS: REG [facility] FAX #: [phone] RAD #:[id number] D/C DT PAGE 3 Signed [id number] 08:57:00 Test Item Value Reference Range Interpretation Comments GLUBED (test code = GLUBED) 101 mg/dL 60-125 N [id number] 08:38:00 Test Item Value Reference Range Interpretation Comments GLUBED (test code = GLUBED) 83 mg/dL 60-125 N - XR FLUORO FOR SPINE [id number] 19:04:00 [facility] : 1945 Sex: F Patient Name: STEVEN AMAYA Unit No: [id number] EXAMS: CPT CODE: [id number] XR FLUORO FOR SPINE INJ 01255 LUMBAR EPIRADICULAR INJECTION REFERRAL PHYSICIAN: None PREOPERATIVE DIAGNOSIS: Lumbar Radiculitis POSTOPERATIVE DIAGNOSIS: Multilevel lumbar disc degeneration and displacement with spinal stenosis andright lower extremity radicular pain PROCEDURES PERFORMED: Fluoroscopically guided needle localization of the right L3, right L4 and right L5 spinal nerves with transforaminal epidurograms and epiduralinjection of local anesthetic and steroid. FINDINGS: Good flow seen through the right L3-4 and L4-5 foramen with tight flow and horizontal root sign at the right L5-S1 foramen. Moderate posterior lateral spondylosis is present. Proximal flow was obstructed in the right L4-5 lateral recess and centrally across the L4-5 disc. Mild anterior epidural displacement seen across the L3-4 disc. Provocation with injection was negative. Anesthetic response was positive with the patient noting complete relief of her right lower extremity pain. Preinjection VAS 4/10. Postinjection VAS 0/10. Steroid response pending follow-up. ESTIMATED BLOOD LOSS: Minimal ANESTHESIA: TIVA COMPLICATIONS: None DETAILS OF PROCEDURE: After obtaining stable vital signs, informed consent and IV access, with no contraindications, the patient was taken to the operating room and placed in a prone position with all extremities paddedand appropriate monitors placed. The patient was sterilely prepped and draped over the lumbosacral spine. Using fluoroscopic visualization the insertion sites were marked for paravertebral approaches and using standard technique, a 25 gauge needle was advanced to the base of each pedicle without paresthesias. Isovue-300 contrast 0.2 mL of was injected incrementally with frequent negative aspirationsto produce each epidurogram. There were no signs of intravascular or intrathecal uptake. Bupivicaine0.75% 0.25 mL with lidocaine 4% 0.5 mL and Decadron 6 mg was then incrementally injected with frequent negative aspirations and again there were no signs of intravascular or intrathecal uptake. The needles were removed and the patient was taken to the PACU in good condition. at 1904 Reported and signed by: Yenny Smith M.D. [facility] NAME: STEVEN AMAYA [address] [facility] PHYS: Yenny Proctor MD [place] [address] : 1945 AGE: 74 SEX: F LOC: JAKUB PHONE #: [phone] EXAM DATE: 01/14/2020 STATUS: REG [facility] FAX #: [phone] RAD #: [id number] D/C DT PAGE 1 Signed Report (CONTINUED) Patient Name: STEVEN AMAYA Unit No: [id number] EXAMS: CPT CODE: [id number] XR FLUORO FOR SPINE INJ 93893 (Continued) CC: Yenny Smith MD Technologist: XIOMY PRUITT RT(R) Transcribed D/ (1903) [facility] NAME: STEVEN AMAYA [address] PHYS: Yenny Proctor MD [place] [address] : 1945 AGE: 74 SEX: F LOC: JAKUB PHONE #: [phone] EXAM DATE: 01/14/2020 STATUS: REG [facility] FAX #: [phone] RAD #: [id number] D/C DT PAGE 2 Signed Report Patient Name: STEVEN AMAYA Unit No: [id number] EXAMS: CPT CODE: [id number] XR FLUORO FOR SPINE INJ 20696 (Continued) Orig Print D/T: S: 01/14/2020(1907) [facility] NAME: STEVEN AMAYA [address] [facility] PHYS: Yenny Proctor MD [place], [place] [address] : 1945 AGE: 74 SEX: F LOC: JAKUB PHONE#: [phone] EXAM DATE: 01/14/2020 STATUS: REG SDC FAX #: [phone] RAD #: [id number] D/C DT PAGE 3 Signed [id number] 12:41:00 Test Item Value Reference Range Interpretation Comments GLUBED (test code = GLUBED) 102 mg/dL 60-125 N [id number] 07:14:00 Test Item Value Reference Range Interpretation Comments GLUBED (test code = GLUBED) 83 mg/dL 60-125 N - XR FLUORO FOR SPINE [id number] 15:44:00 Patient Name: STEVEN AMAYA Unit No: [id number] EXAMS: CPT CODE: [id number] XR FLUORO FOR SPINE INJ 22321 LUMBAR EPIRADICULAR INJECTION REFERRAL PHYSICIAN: None PREOPERATIVE DIAGNOSIS: Lumbar Radiculitis POSTOPERATIVE DIAGNOSIS: L3-4 and L4-5 disc displacement with spinal stenosis and right lower extremity radicular pain PROCEDURES PERFORMED: Fluoroscopically guided needle localization of the right L3, right L4 and right L5 spinal nerves with transforaminal epidurograms and epidural injection oflocal anesthetic and steroid. FINDINGS: Good flow seen through the foramen however proximal flow wasobstructed in the right L3-4 and L4-5 lateral recesses with marked anterior epidural displacement across the L3-4 and L4-5 discs. Provocation with injection was negative. Anesthetic response was positive with the patient noting complete relief of her right low back and lower extremity pain. Preinjection VAS 6/10. Postinjection VAS 0/10. Steroid response pending follow-up. ESTIMATED BLOOD LOSS: Minimal ANESTHESIA: TIVA COMPLICATIONS: None DETAILS OF PROCEDURE: After obtaining stable vital signs, informed consent and IV access, with no contraindications, the patient was taken to the operating room and placed in a prone position with all extremities padded and appropriate monitors placed. The patientwas sterilely prepped and draped over the lumbosacral spine. Using fluoroscopic visualization the insertion sites were marked for paravertebral approaches and using standard technique, a 25 gauge needle was advanced to the base of each pedicle without paresthesias. Isovue-300 contrast 0.2 mL of was injected incrementally with frequent negative aspirations to produce each epidurogram. There were no signs of intravascular or intrathecal uptake. Bupivicaine 0.75% 0.25 mL with lidocaine 4% 0.5 mL and Decadron 6 mg was then incrementally injected with frequent negative aspirations and again there were no signs of intravascular or intrathecal uptake. The needles were removed and the patient was taken tothe PACU in good condition. at 1544 Reported and signed by: Yenny Smith M.D. CC: Technologist: Sheron Lao(R) Transcribed D/ (3118) [facility] [place] NAME: STEVEN AMAYA [address] [facility] PHYS: Yenny Proctor MD [place], [place] [address] : 1945 AGE: 73 SEX: F LOC: JAKUB PHONE #: [phone] EXAM DATE: 08/01/2019 STATUS: REG [facility] FAX #: [phone] RAD #: [id number] D/C DT PAGE 1 Signed Report Patient Name: STEVEN AMAYA Unit No: [id number] EXAMS: CPT CODE: [id number] XR FLUORO FOR SPINE INJ 16735 (Continued) Orig Print D/T: S: 08/01/2019 (9187) [facility] NAME: STEVEN AMAYA [address] [facility] PHYS: Yenny Proctor MD [place], [place] [address] : 1945 AGE: 73 SEX: F LOC: JAKUB PHONE #: [phone] EXAM DATE: 08/01/2019 STATUS: REG [facility] FAX #: [phone] RAD #: [id number] D/C DT PAGE 2 Signed [id number] 12:02:00 Test Item Value Reference Range Interpretation Comments GLUBED (test code = GLUBED) 103 mg/dL 60-125 N [id number] 10:01:00 Test Item Value Reference Range Interpretation Comments GLUBED (test code = GLUBED) 86 mg/dL 60-125 N - XR FLUORO FOR SPINE [id number] 11:48:00 Patient Name: STEVEN AMAYA Unit No: [id number] EXAMS: CPT CODE: [id number] XR FLUORO FOR SPINE INJ 07963 LUMBAR EPIRADICULAR INJECTION REFERRAL PHYSICIAN: None PREOPERATIVE DIAGNOSIS: Lumbar Radiculitis POSTOPERATIVE DIAGNOSIS: L4-5 grade 1 spondylolisthesis with right L3-4 and L4-5 lateral recess stenosis with radiculitis PROCEDURES PERFORMED: Fluoroscopically guided needle localization of the right L3, right L4 and right L5 spinal nerves with transforaminal epidurograms and epidural injectionof local anesthetic and steroid. FINDINGS: Fairly good flow seen through the foramen with slight tightness at L4-5. Proximal flow was limited in the right L3-4 and L4-5 lateral recesses and there appears to be moderate to marked anterior epidural displacement across the L4-5 grade 1 spondylolisthesis. Provocation with injection was negative. Anesthetic response was positive with the patient noting complete relief of her right low back pain at time of procedure. Preinjection VAS 4/10. Postinjection VAS 0/10. Steroid response pending follow-up. ESTIMATED BLOOD LOSS: Minimal ANESTHESIA: TIVA COMPLICATIONS: None DETAILS OF PROCEDURE: After obtaining stable vital signs, informed consent and IV access,with no contraindications, the patient was taken to the operating room and placed in a prone position with all extremities padded and appropriate monitors placed. The patient was sterilely prepped and draped over the lumbosacral spine. Using fluoroscopic visualization the insertion sites were marked for paravertebral approaches and using standard technique, a 25 gauge needle was advanced to the base of each pedicle without paresthesias. Isovue-300 contrast 0.2 mL of was injected incrementally with frequent negative aspirations to produce each epidurogram. There were no signs of intravascular or intrathecal uptake. Bupivicaine 0.75% 0.25 mL with lidocaine 4% 0.5 mL and Decadron 6 mg was then incrementally injected with frequent negative aspirations and again there were no signs of intravascular or intrathecal uptake. The needles were removed and the patient was taken to the PACU in good condition. at 1148 Reported and signedby: Yenny Smith M.D. CC: Yenny Smith MD Technologist: MERCEDES ALANIZ (RT.R) Transcribed D/ (1148) [facility] [place] NAME: STEVEN AMAYA [address] [facility] PHYS: Yenny Proctor MD [place] [address] : 1945 AGE: 73 SEX: F LOC: JAKUB PHONE #: [phone] EXAM DATE: 01/02/2019 STATUS: REG [facility] FAX #: [phone] RAD #: [id number] D/C DT PAGE 1 Signed Report Patient Name: STEVEN AMAYA Unit No: [id number] EXAMS: CPT CODE: [id number] XR FLUORO FOR SPINE INJ 91945 (Continued) Orig Print D/T: S: 01/02/2019 (1151) [facility] NAME: STEVEN AMAYA [address] [facility] PHYS: Yenny Proctor MD [place], [place] [address] : 1945 AGE: 73 SEX: F LOC: JAKUB PHONE #: [phone] DATE: 01/02/2019 STATUS: REG [facility] FAX #: [phone] RAD #: [id number] D/C DT PAGE 2 Signed Report- XR FLUORO FOR SPINE [id number] 16:43:00 Patient Name: STEVEN AMAYA Unit No: [id number] EXAMS: CPT CODE: [id number] XR FLUORO FOR SPINE INJ 31625 LUMBAR EPIRADICULAR INJECTION REFERRAL PHYSICIAN: None PREOPERATIVE DIAGNOSIS: Lumbar Radiculitis POSTOPERATIVE DIAGNOSIS: Multilevel lumbar disc degeneration with spinal stenosis and right lower extremity radiculopathy PROCEDURES PERFORMED: Fluoroscopically guided needle localization of the right L3, right L4 and right L5 spinal nerves with transforaminal epidurograms and epidural injectionof local anesthetic and steroid. FINDINGS: Fairly good flow seen through the foramen at L3-4 and L4-5 with tight flow in the right L4-5 lateral recess and moderate displacement across the L3-4 and L4-5 discs. Provocation with injection was negative. Anesthetic response was positive with the patient noting complete relief of her right low back and lower extremity pain. Preinjection VAS 4/10. Postinjection VAS 0/10. Steroid response pending follow-up. ESTIMATED BLOOD LOSS: Minimal ANESTHESIA: TIVA COMPLICATIONS: None DETAILS OF PROCEDURE: After obtaining stable vital signs, informed consent and IV access, with no contraindications, the patient was taken to the operating room and placed in a prone position with all extremities padded and appropriate monitors placed. The patient was sterilely prepped and draped over the lumbosacral spine. Using fluoroscopic visualization the insertion sites were marked for paravertebral approaches and using standard technique, a 25 gauge needle was advanced to the base of each pedicle without paresthesias. Isovue-300 contrast 0.2 mL of was injected incrementallywith frequent negative aspirations to produce each epidurogram. There were no signs of intravascularor intrathecal uptake. Bupivicaine 0.75% 0.25 mL with lidocaine 4% 0.5 mL and Decadron 6 mg was thenincrementally injected with frequent negative aspirations and again there were no signs of intravascular or intrathecal uptake. The needles were removed and the patient was taken to the PACU in good condition. at 7501 Reported andsigned by: Yenny Smith M.D. CC: Yenny Smith MD Technologist: NERY INGRAM RT(R) TranscribedD/ (2250) Etienne.SUHAS [facility] NAME: STEVEN AMAYA [address] [facility] PHYS: Yenny Proctor MD [place], [place] [address] : 1945 AGE: 73 SEX: F LOC: JAKUB PHONE #: [phone] EXAM DATE: 11/27/2018 STATUS: REG [facility] FAX #: [phone] RAD #: [id number] D/C DT PAGE 1 Signed Report Patient Name: STEVEN AMAYA Unit No: [id number] EXAMS: CPT CODE: [id number] XR FLUORO FOR SPINE INJ 66690 (Continued) Orig Print D/T: S: 11/27/2018 (1646) [facility] NAME: STEVEN AMAYA [address] [facility] PHYS: Yenny Proctor [place], [place] [address] : 1945 AGE: 73 SEX: F LOC: Y.DELVIN PHONE #: [phone] EXAM DATE: 11/27/2018 STATUS: REG SDC FAX #: [phone] RAD #: [id number] D/C DT PAGE 2 Signed Report- XR L-SPINE W/BEND [id number] 10:06:00 Patient Name: STEVEN AMAYA Unit No: [id number] EXAMS: CPT CODE: [id number] XR L-SPINE W/BEND VIEW 96094 COMPARISON: None available. IMAGES PROVIDED: 7 FINDINGS: 5 lumbar type vertebrae. Slight rightward curvature of the lumbar spine is centered at L3-L4. There is grade 1 spondylolisthesis of L4-L5. No definite motion with flexion/extension. No acute fracture. Disc degeneration is greatest at L4-L5 and L5-S1. Moderate lumbar facet hypertrophy. Cholecystectomy clips overlie the right upper quadrant. Mild hip joint degenerative changes bilaterally as well as bilateral sacroiliac joint degenerativechange. IMPRESSION: Multilevel lumbar spondylosis without evidence of dynamic instability. at 1006 Reported and signed by: Juan Kenyon M.D. CC: Yenny Smith MD Technologist: Shira Clemons RT.(R) Transcribed D/ (1006) [email or web address] [facility] NAME: STEVEN AMAYA [address] [facility] PHYS: Yenny Proctor MD : 1945 AGE: 73 SEX: F [place], [place] [address] LOC: Y.RAD PHONE #: [phone] EXAM DATE: 11/08/2018 STATUS: DEP CLI FAX #: [phone] RAD #: [id number] D/C DT PAGE 1 Signed Report Patient Name: STEVEN AMAYA Unit No: [id number] EXAMS: CPT CODE: [id number] XR L-SPINE W/BEND VIEW 21752 (Continued) Orig Print D/T: S: 11/10/2018 (1009) [facility] NAME: STEVEN AMAYA [address] [facility] PHYS: Yenny Proctor MD : 1945 AGE: 73 SEX: F [place], [place] [address] LOC: Y.RAD PHONE #: [phone] EXAM DATE:11/08/2018 STATUS: DEP CLI FAX #: [phone] RAD #: [id number] D/C DT PAGE 2 Signed ReportBASIC METABOLIC [id number] 06:20:00 Test Item Value Reference Range Interpretation Comments SODIUM (test code = 135 mmol/L 136-145 L NA) POTASSIUM (test code = 4.6 mmol/L 3.5-5.1 N K) CHLORIDE (test code = 99.0 mmol/L 98-107 N CL) CARBON DIOXIDE (test 29.1 mmol/L 21-32 N code = CO2) GLUCOSE (test code = 126 mg/dL 70-110 H GLU) BLOOD UREA NITROGEN 17 mg/dL 7-18 N (test code = BUN) GLOMERULAR FILTRATION 65.2 >60 Unit o f measure: RATE (test code = GFR) mL/mi n/1.73 x0Eloslyxye Range:Healthy A dults >90 mL/min/1.73 m2 For Chronic Kid marie Disease: Stage II Mild Decrease i n GFR 60-90 Stage III Moderate Decrea se in GFR 30-59 Stage IV Severe Decrease in GFR 15-29 Stage V Kidney Failure <15 CREATININE (test code 0.86 mg/dL 0.55-1.30 N = CREAT) CALCIUM (test code = 8.8 mg/dL 8.2-10.1 N CA) HGB [id number] 05:52:00 Test Item Value Reference Range Interpretation Comments HEMOGLOBIN (test code = HGB) 11.0 g/dL 12-16 L HEMATOCRIT (test code = HCT) 32.1 % 37-47 L - USG NDL PLACEMENT (Bxg/Asp)2018-05-22 12:35:00 Patient Name: STEVEN AMAYA Unit No: [id number] EXAMS: CPT CODE: [id number] USG NDL PLACEMENT (Bxg/Asp) 37926 INDICATION: Right knee pain. PROCEDURE: Ultrasound guided cryoanalgesia (Iovera) of the right anterior femoral cutaneous nerve and the superior and inferior branches of the infrapatellar branch of the saphenous nerve. TUBING MACHINE TENDER: Dr. Reyes. MEDICATIONS: 1 % Lidocaine local anesthesia CONTRAST: None. COMPLICATION: None immediately evident. DESCRIPTION: After the procedure, including indication and potential complications had been discussed with the patient and questions answered, written informed consent was obtained. The patient was then taken to the ultrasound suite and placed on the table in supine position with their treatment leg fully extended. The skin of the right knee was evaluated sonographically. The skin over the anterior femoral cutaneous nerve and the superior and inferiorbranches of the infrapatellar branch of the saphenous nerve was marked. The skin was then prepped and draped sterilely. A time out was performed. After achieving 1% Lidocaine local anesthesia, the Iover a cryoanalgesia needle was inserted into the top of the treatment area, and the treatment was initiated. The duration of one treatment cycle was 60 seconds. After each treatment cycle, the needle was removed and repositioned in an overlapping position over the adjacent previous treatment location. A new treatment cycle was started. The treatment cycle was repeated a total of 4 times along the treatment area to treat the two branches of the infrapatellar saphenous nerve. The treatment cycle was repeated a total of 4 times a long a second treatment area to treat the anterior femoral cutaneous nerve. The patent's skin was cleaned and the wound was covered with a band-aid. The patient was instructed to stand and mobilize the knee joint. No immediate complication were observed. The patient tolerated the procedure well and was subsequently discharged in stable condition with instructions for follow up. Preprocedural pain level: 6/ 10 Postprocedural pain level: 2/ 10 IMPRESSION: Cryoanalgesia of the right anterior femoral cutaneous nerve and the superior and inferior branches of the infrapatellar branch of the saphenous nerve as above. [facility] NAME: STEVEN AMAYA [address] [facility] PHYS: Theo Singh MD : 1945 AGE: 72 SEX: F [place] [address] LOC: Y.RAD PHONE #: [phone] EXAM DATE: 05/22/2018 STATUS: REG CLI FAX #: [phone] RAD #: [id number] D/C DT PAGE 1 Signed Report (CONTINUED) Patient Name: STEVEN AMAYA Unit No: [id number] EXAMS: CPT CODE: [id number] USG NDL PLACEMENT (Bxg/Asp) 60339 (Continued) at 1235 Reported and signed by: Kirt Reyes MD CC: Theo Caban MD Technologist: ISAC TORO RDMS, RVT Transcribed D/ (1235)tELAINE [facility] NAME: STEVEN AMAYA [address] [facility] PHYS: Theo Singh MD : 1945 AGE: 72 SEX: F [place] [address] LOC: Y.RAD PHONE #: [phone] EXAM DATE: 05/22/2018 STATUS: REG CLI FAX #: [phone] RAD #: [id number] D/C DT PAGE 2 Signed Report Patient Name: STEVEN AMAYA Unit No: [id number] EXAMS: CPT CODE: [id number] USG NDL PLACEMENT (Bxg/Asp) 20843 (Continued) Orig Print D/T: S: 05/22/2018 (1238) [facility] NAME: STEVEN AMAYA [address] [facility] PHYS: Theo Singh MD : 1945 AGE: 72 SEX: F [place] [address] LOC: Y.RAD PHONE #: [phone] EXAM DATE:05/22/2018 STATUS: REG CLI FAX #: [phone] RAD #: [id number] D/C DT PAGE 3 Signed ReportCOMPREHENSIVE METABOLIC PANEL 2018-05-08 12:07:00 Test Item Value Reference Range Interpretation Comments SODIUM (test code = 143 mmol/L 136-145 N NA) POTASSIUM (test code = 4.1 mmol/L 3.5-5.1 N K) CHLORIDE (test code = 103.0 mmol/L 98-107 N CL) CARBON DIOXIDE (test 27.3 mmol/L 21-32 N code = CO2) GLUCOSE (test code = 104 mg/dL 70-110 N GLU) BLOOD UREA NITROGEN 19 mg/dL 7-18 H (test code = BUN) GLOMERULAR FILTRATION 48.6 >60 Unit o f measure: RATE (test code = GFR) mL/mi n/1.73 [id number] Range:Healthy Adults >90 mL/min/1.73 m2 For Chronic Kidney Disease: Stage II Mild Decrease i n GFR 60-90 Stage III Moderate Decrea se in GFR 30-59 St age IV Severe Decre ase in GFR 15-29 St age V Kidney Failur e <15 CREATININE (test code 1.11 mg/dL 0.55-1.30 N = CREAT) TOTAL PROTEIN (test 6.5 g/dL 6.4-8.2 N code = PROT) ALBUMIN (test code = 3.5 g/dL 3.4-5.0 N ALB) GLOBULIN (test code = 3.0 g/dL 2.2-4.2 N GLOB) ALBUMIN/GLOBULIN RATIO 1.2 0.7-2.0 N (test code = A/G) CALCIUM (test code = 9.6 mg/dL 8.2-10.1 N CA) BILIRUBIN TOTAL (test 0.28 mg/dL 0.2-1.00 N code = BILT) SGOT/AST (test code = 15.0 U/L 15-37 N AST) SGPT/ALT (test code = 21.0 U/L 12-78 N Please note new ALT) normal range. ALKALINE PHOSPHATASE 98 U/L 46-116 N TOTAL (test code = ALKP) CBC W/AUTO [id number] 12:06:00 Test Item Value Reference Range Interpretation Comments WHITE BLOOD CELL (test code = WBC) 7.1 K/mm3 5.8-11.0 N RED BLOOD CELL (test code = RBC) 4.62 M/mm3 4.2-5.4 N HEMOGLOBIN (test code = HGB) 13.1 g/dL 12-16 N HEMATOCRIT (test code = HCT) 39.6 % 37-47 N MEAN CELL VOLUME (test code = MCV) 86 fL 80-98 N MEAN CELL HGB (test code = MCH) 28.4 pg 27-34 N MEAN CELL HGB CONCENTRATION (test 33.1 g/dL 30.8-34.1 N code = MCHC) RED CELL DISTRIBUTION WIDTH (test 13.2 % 11-16 N code = RDW) PLT (test code = PLT) 263 K/mm3 130-400 N MEAN PLATELET VOLUME (test code = 10.5 fL 8.9-12.1 N MPV) NEUTROPHIL % (test code = NT%) 65.6 % 45-70 N LYMPHOCYTE % (test code = LY%) 24.8 % 20-40 N MONOCYTE % (test code = MO%) 5.8 % 3-10 N EOSINOPHIL % (test code = EO%) 2.5 % 1-5 N BASOPHIL % (test code = BA%) 1.0 % 0.0-1.1 N NEUTROPHIL # (test code = NT#) 4.65 K/mm3 2.00-7.50 N LYMPHOCYTE # (test code = LY#) 1.76 K/mm3 1.50-4.00 N MONOCYTE # (test code = MO#) 0.41 K/mm3 0.2-0.8 N EOSINOPHIL # (test code = EO#) 0.18 K/mm3 0.04-0.4 N BASOPHIL # (test code = BA#) 0.07 K/mm3 0.02-0.10 N MANUAL DIFF REQUIRED (test code = NO MANUAL DIFF MDIFF) NUCLEATED RED BLOOD CELL (test 0 % 0-0 N code = NRBC) PROTHROMBIN [id number] 11:59:00 Test Item Value Reference Range Interpretation Comments PROTHROMBIN TIME 11.0 secs 10.1-12.5 N PATIENT (test code = PTP) INTERNATIONAL NORMAL 0.97 <2.0 RECOMME NDED THERAPEUTIC RATIO (test code = RANGE FOR ORAL INR) ANTICOAGULANTTR EATMENT: CONDITION INRPr ophylaxis of venous throm bosis in 2.0 - 3.0 high- risk medical or surg ical patientsTreatme nt of venous thrombos is 2.0 - 3.0Prevention o f embolism 2.0 - 3.0Prevention o f recurrent embol ism, or 3.0 - 4.5 patie nts with mechanical pros thetic intravascular v sullivan IS PATIENT ON ANTICOAGULANTS ? YLIST ANTICOAGULANT/ANTI PLT MEDICATION : AspirinHas Lab been notified if Patient is on Heparin Drip? NOIf Yes, order CBC, OCCULT BLOOD, PT every other day NTHROMBOPLASTIN TIME [id number] 11:59:00 Test Item Value Reference Range Interpretation Comments PTT ACTIVATED (test code = APTT) 29.8 secs 24.9-37.0 N IS PATIENT ON ANTICOAGULANTS ? YLIST ANTICOAGULANT/ANTI PLT MEDICATION : AspirinHas Lab been notified if Patient is on Heparin Drip? NOIf Yes, order CBC, OCCULT BLOOD, PT every other day N Notes Date/Time Note Provider Source 2020-11-18 10:07:00-00:00 [id number] [place] [address] PATIENT NAME: STEVEN AMAYA ADMIT DATE: 11/18 ACCOUNT NO: [id number] ROOM NO: AGE: 75 REPORT TYPE: OPERATIVE REPORT SEX: F ADMITTING PHYSICIAN: ATTENDING PHYSICIAN:Juan Ashton MD OPERATION DATE: 11/18/2020 FINAL DIAGNOSIS: Right knee synovitis, M65.851. FINAL PROCEDURE: Right knee extensive synovectom y, 21000. PREOPERATIVE DIAGNOSIS: Right knee synovitis, M6 5.851. POSTOPERATIVE DIAGNOSIS: Right knee synovitis, M 65.851. PROCEDURE: Right knee extensive synovectomy, 298 76. FINAL IMPLANTS AND TECHNIQUE: Nonapplicable. SURGEON: Dr. Juan Ashton. SUPERVISOR METAL FURNITURE FABRICATION: None. ANESTHESIA: General. BRIEF CLINICAL HISTORY: This is a 75-year-old fe male status post right total knee arthroplasty done in May of 2018. Over the past year, she has developed mechanical symptoms and loss of motion d ue to crepitus and pain anteriorly. On clinical exam, she has a pos itive patellar clunk. She has good range of motion. She now presents for operative intervention. PROCEDURE DETAIL: The right knee was familia ropriately identified. The patient was then placed under general anesthesia and placed in the supine position. The right knee was prepped and draped in sterile fas hion. Superomedial inflow portal was established. INTRAARTICULAR FLUID: None. Anterolateral and anteromedial portals were esta blished. FINDINGS IN THE NOTCH: ACL: Absent. PCL: Absent. OTHER: None. FINDINGS IN THE MEDIAL COMPARTMENT: ARTICULAR CARTILAGE: Absent. PATIENT NAME: STEVEN AMAYA [id number] MENISCUS: Absent. OTHER: None. FINDINGS IN THE LATERAL COMPARTMENT: ARTICULAR CARTILAGE: Absent. MENISCUS: Absent. OTHER: None. FINDINGS IN THE PATELLOFEMORAL COMPARTMENT: PATELLAR ARTICULAR CARTILAGE: TKA in place, good position. TROCHLEAR ARTICULAR CARTILAGE: TKA in place. OTHER: Thick hypertrophic scar tissue posterior to the patellar tendon and pushed into the notch. Extensive debridement was done with arthroscope in the superolateral portal and instruments placed in t he anterolateral portal, debriding extensively this hypertrophic scar tissue along the posterior aspect of the patellar tendon to a stable transition. MEDIAL GUTTER: Also thick hypertrophic scar tiss ue debrided. LATERAL GUTTER: Also thick hypertrophic scar tis jose debrided. SUPRAPATELLAR POUCH: Very large area of hypertro phic scar tissue on the superior pole of the patella at the distal aspec t of the quadriceps tendon. This was debrided with the arthroscope in the an terolateral portal and the shaver in the superolateral portal. All instruments were then re moved from the knee and the portal sites were closed using 3-0 Monocryl suture. The knee was injected with morphine. Dressings were then placed. COMPLICATIONS: None. ESTIMATED BLOOD LOSS: None. SPECIMENS: None. PROGNOSIS: Good. She had two very discrete areas of thick hypertrophic scar tissue anteriorly, which were debrided and she s hould see significant improvement in her symptoms. I spoke to her husb and postoperatively. She will be weightbearing as tolerated and range of motio n as tolerated. Dictated By: Juan Ashton MD WT: OP:MAGEN/PÉREZ/GIACOMO Conf#: [id number]/DID#: [id number] Authenticated by Juan Ashton MD On 2020 05:34:15 PM Electronically Signed by Juan Ashton MD o n 11/18/20 at 1734 PATIENT NAME: STEVEN AMAYA [id number] 4316-08-25 06:50:00-00:00 [facility] Brief Op Note REPORT#:[id number] REPORT STATUS: Signed DATE:11/18/20 TIME: 0650 PATIENT: STEVEN AMAYA UNIT #: [id number] ROOM/BED: : 47 AGE: 75 SEX: F ATTEND: Manuel Ashton MD ADM AUTHOR: Juan Ashton MD * ALL edits or amendments must be made on the [employer]/computer document * Op/Inv Proc Note - Brief Pre-procedure diagnosis: right knee synovitis, s/p TKA Post-procedure diagnosis: same as pre procedure dx Procedures performed: right knee arthroscopy with debridement, synovec bud Primary Surgeon: MD Daisha Sleever(s): none Findings: none Complications: none Estimated blood loss in ml's: none Specimens removed/altered: none at 1725 RPT #:[id number] END OF REPORT 2020-11-04 14:07:00-00:00 [id number] [place] [address] PATIENT NAME: STEVEN AMAYA ADMIT DATE: ACCOUNT NO: [id number] ROOM NO: AGE: 75 REPORT TYPE: HISTORY AND PHYSICAL SEX: F ADMITTING PHYSICIAN: ATTENDING PHYSICIAN:Juan Ashton MD ADMISSION DATE: 11/18/2020 DATE OF ANTICIPATED SURGERY: Will be 11/18/2020. CHIEF COMPLAINT: Right knee pain. HISTORY OF PRESENT ILLNESS: This is a 75 -year-old female, who is status post a right total knee arthroplasty done in May. Over the past year, she has developed pain, specific ally with stairs and her activities of daily living. She also complains of loss of motion and crepit us. Currently, she feels her pain is interfering with her activities of daily living and she now presents for knee arthroscopy. PAST MEDICAL HISTORY: Bronchitis, reflux, asthma , chronic back pain, constipation, hypertension, hypercholesterolemia , osteoarthritis, sinus allergies, diabetes, and chronic miscarriages. PAST SURGICAL HISTORY: Appendectomy, gastric ban ding, hysterectomy, vaginal surgery, left foot surgery, back surgery, abdomi nal surgery, cholecystectomy, hysterectomy, spinal surgery, cysts surgery, tub al ligation, total knee arthroplasty. MEDICATIONS: Multiple vitamins, calcium, tramado l, gabapentin, metoprolol, atorvastatin, lisinopril, amlodipine, and omepra zole. ALLERGIES: PENICILLIN. FAMILY HISTORY: Noncontributory. SOCIAL HISTORY: The patient denies any tobacco o r alcohol use. REVIEW OF SYSTEMS: HEENT: Negative. PULMONARY: Negative. RENAL: Negative. CARDIOVASCULAR: Negative. GASTROINTESTINAL: Negative. NEUROLOGIC: Negative. ENDOCRINE: Negative. PHYSICAL EXAMINATION: GENERAL: This is a well-developed, well-nourishe d 75-year-old female, in no PATIENT NAME: STEVEN AMAYA [id number] acute distress. HEENT: Normal. PULMONARY: Spontaneous breathing. CARDIOVASCULAR: Spontaneous pulse. ABDOMEN: Soft. EXTREMITIES: Examination of the right lo wer extremity demonstrates well-healed midline scar. Joint effusion and limited range o f motion. The patient has 120 degrees of flexion with full extension. Positive patellofemoral crepitation. ASSESSMENT: Right knee synovitis, status post to anjel knee arthroplasty. PLAN: Right knee arthroscopy with extensive debr idement and any associated procedures. Risks and benefits have been detailed to the patient including all rehab and recovery time. The patient understands and is ready to proceed. Dictated By: Petty Brizuela PA-C for Juan Ashton MD WT: HP:MAGEN/ARGENTINA/GIACOMO Conf#: [id number]/DID#: [id number] Authenticated by Petty Brizuela PA-C On 11/09 06:17:42 AM Authenticated by Juan Ashton MD On 2020 07:55:07 AM Electronically Signed by Juan Ashton MD o n 11/09/20 at 0755 at 0755 PATIENT NAME: STEVEN AMAYA [id number] 10:50:00-00:00 [id number] [place] [address] PATIENT NAME: STEVEN AMAYA ADMIT DATE: ACCOUNT NO: [id number] ROOM NO: AGE: 75 REPORT TYPE: ELECTROCARDIOGRAM SEX: F ADMITTING PHYSICIAN: ATTENDING PHYSICIAN:Juan Ashton MD Order: [id number] Test Reason : PREOP CLEARANCE, HTN Test Date/Time Stamp: MonOct 27 2020 10:50:24 Blood Pressure : / mmHG Vent. Rate : 050 BPM Atrial Rate : 050 BPM P-R Int : 192 ms QRS Dur : 092 ms QT Int : 454 ms P-R-T Axes : 075 049 050 degree s QTc Int : 413 ms Sinus bradycardia Septal infarct , age undetermined Abnormal ECG No previous ECGs available Confirmed by JAMES MELGAR MD ([id number]) on 10/29/2020 1 :04:58 PM Referred By: Juan Ashton Confirmed by:JAMES MELGAR MD Electronically Signed by James Melgar MD on 08/14 at 1305 PATIENT NAME: STEVEN AMAYA [id number] 2903-03-08 11:34:00-00:00 [id number] [place] [address] PATIENT NAME: STEVEN AMAYA ADMIT DATE: 05/28 ACCOUNT NO: [id number] ROOM NO: Y.502 AGE: 72 REPORT TYPE: DISCHARGE SUMMARY REPORT SEX: F ADMITTING PHYSICIAN:Theo Caban MD ATTENDING PHYSICIAN:Theo Caban MD ADMISSION DATE: 05/28/2018 DISCHARGE DATE: 05/29/2018 ADMITTING DIAGNOSIS: Degenerative joint disease, right knee. DISCHARGE DIAGNOSIS: Status post right total kne e arthroplasty. OPERATIONS AND PROCEDURES: 05/28/2018, right tot al knee arthroplasty by Dr. Theo Caban. HOSPITAL COURSE: Above-liste d procedure under general anesthesia with 125 mL of blood loss, no complications . Mobilized with physical therapy, weightbearing as tolerated. Hemoglobin 11.0 on the first postoper ative day. DISCHARGE INSTRUCTIONS: Activity is weightbearin g as tolerated. DISCHARGE MEDICATIONS: Xarelto 10 mg daily for 1 0 days. DIET: Usual. FOLLOWUP PLANS: With Dr. Theo Caban in 10 da ys. CONDITION: Stable. DISPOSITION: Discharged to home. Dictated By: Theo Caban MD WT: DS:MAGEN/LICO/NTS Conf#: [id number]/DID#: [id number] Authenticated by Theo Caban MD On 10:48:35 AM at 1049 PATIENT NAME: STEVNE AMAYA [id number] 13:29:00-00:00 [facility] ([facility]) Clinical Note REPORT#:[id number] REPORT STATUS: Signed DATE:05/29/18 TIME: 1329 PATIENT: STEVEN AMAYA UNIT #: [id number] ROOM/BED: [address] : [address] AGE: 72 SEX: F ATTEND: Elliot Caban MD ADM AUTHOR: Maria Esther Nathan LAY OUT WORKER * ALL edits or amendments must be made on the [employer]/computer document * Clinical Note Note: S: pain controlled on current regimen O: AAOx4 Lungs CTA Bilat No N/V, tolering po food well + BS, abd soft R knee dressing C/D/I RLE + SLR +DP Vital Signs: Date Time Temp Pulse Resp B/P B/P Pulse O2 O2 F low FiO2 Mean Ox Delivery Rate 05/29 1140 36.5 60 18 119/56 80 93 05/29 0745 95 Room air 05/29 0743 37.0 54 18 113/53 76 97 05/29 0728 Room air 05/29 033 36.4 55 16 130/61 88 98 Nasal cannula Laboratory Tests 05/30 335 Chemistry Sodium (136 - 145 mmol/L) 135 L Potassium (3.5 - 5.1 mmol/L) 4.6 Chloride (98 - 107 mmol/L) 99.0 Carbon Dioxide (21 - 32 mmol/L) 29.1 BUN (7 - 18 mg/dL) 17 Creatinine (0.55 - 1.30 mg/dL) 0.86 Glomerular Filtr Rate (>60) 65.2 Glucose (70 - 110 mg/dL) 126 H Calcium (8.2 - 10.1 mg/dL) 8.8 Laboratory Tests 05/30 335 Hematology Hgb (12 - 16 g/dL) 11.0 L Hct (37 - 47 %) 32.1 L A/P: s/p R TKA, POD#1 Doing well on current pain regimen mobilize w/ PT (using walker) remove dressing on 06/04 admitted as inpatient [facility] extensive comorbities post op (HTN, Asthma, OA, Back Pain) started Xarelto for DVT prophylaxis will dc home today fup w/ Dr. Caban in 2 weeks Electronically Signed by Maria Esther Nathan LAY OUT WORKER on at 1337 RPT #:[id number] END OF REPORT 2018-05-29 13:29:00-00:00 [facility] ([facility]) Clinical Note REPORT#:[id number] REPORT STATUS: Signed DATE:05/29/18 TIME: 1329 PATIENT: STEVEN AMAYA UNIT #: [id number] ROOM/BED: [address] : 47 AGE: 72 SEX: F ATTEND: Elliot Caban MD ADM AUTHOR: Maria Esther Nathan NP * ALL edits or amendments must be made on the [employer]/computer document * Clinical Note Note: S: pain controlled on current regimen O: AAOx4 Lungs CTA Bilat No N/V, tolering po food well + BS, abd soft R knee dressing C/D/I RLE + SLR +DP Vital Signs: Date Time Temp Pulse Resp B/P B/P Pulse O2 O2 F low FiO2 Mean Ox Delivery Rate 05/29 1140 36.5 60 18 119/56 80 93 05/29 0745 95 Room air 05/29 0643 37.0 54 18 113/53 76 97 05/29 0628 Room air 05/29 332 36.4 55 16 130/61 88 98 Nasal cannula Laboratory Tests 05/30 335 Chemistry Sodium (136 - 145 mmol/L) 135 L Potassium (3.5 - 5.1 mmol/L) 4.6 Chloride (98 - 107 mmol/L) 99.0 Carbon Dioxide (21 - 32 mmol/L) 29.1 BUN (7 - 18 mg/dL) 17 Creatinine (0.55 - 1.30 mg/dL) 0.86 Glomerular Filtr Rate (>60) 65.2 Glucose (70 - 110 mg/dL) 126 H Calcium (8.2 - 10.1 mg/dL) 8.8 Laboratory Tests 05/30 335 Hematology Hgb (12 - 16 g/dL) 11.0 L Hct (37 - 47 %) 32.1 L A/P: s/p R TKA, POD#1 Doing well on current pain regimen mobilize w/ PT (using walker) remove dressing on 06/04 admitted as inpatient [facility] extensive comorbities post op (HTN, Asthma, OA, Back Pain) started Xarelto for DVT prophylaxis will dc home today fup w/ Dr. Caban in 2 weeks Electronically Signed by Maria Esther Nathan NP on at 1337 at 0835 RPT #:[id number] END OF REPORT 2018-05-29 07:33:00-00:00 [facility] ([facility]) Internal Medicine Prog. Note REPORT#:[id number] REPORT STATUS: Signed DATE:05/29/18 TIME: 732 PATIENT: STEVEN AMAYA UNIT #: [id number] [facility] AGE: 72 SEX: F ATTEND: Elliot Caban MD ADM AUTHOR: Sharath Bennett MD * ALL edits or amendments must be made on the el [employer]/computer document * Subjective Patient reports: no complain ts, no abdominal pain, no chest pain, no dizziness ( when getting OOB), no headac he, no heartburn, no nausea, no shortness of breath, no vomiting, feeling better, pain controlled Objective General VS/I O: Vital Signs Date Temp Pulse Resp B/P B/P Mean Pulse Ox FiO2 05/28-05/29 96.8-97.5 46-96 12-20 117-171/61-76 88-102.1 95-100 32-96 Last Documented: Result Date Time O2 Delivery Room air 05/30 727 Pulse Ox 98 05/29 332 B/P 130/61 05/29 332 B/P Mean 88 05/29 332 Temp 97.5 05/29 332 Pulse 55 05/29 033 Resp 16 05/29 332 FiO2 32 05/29 0002 O2 Flow Rate 3.115631 05/29 0002 24 hour I O ending at 0700: 05/29 0700 05/28 1900 Intake Total 1050.00 150.00 Output Total Balance 1050.00 150.00 Intake, IV 550.00 150.00 Intake, Oral 500 Number Voids 6 Patient 156 lb Weight Weight Standing scale Measurement Method Post-op: day 1 Physical Exam General appearance: alert, awake, no acute distr ess Cardiovascular: normal heart sounds, regular rat e rhythm, no murmur Respiratory: clear to auscultation Abdomen: non-tender, normal bowel sounds, soft, no distention Genitourinary: no vogel Extremities: Extremities: no calf tenderness, no edema Results Findings/Data: Laboratory Tests 05/29/18335: [Embedded Image Not Available] Laboratory Tests 05/30 335 Chemistry Sodium (136 - 145 mmol/L) 135 L Potassium (3.5 - 5.1 mmol/L) 4.6 Chloride (98 - 107 mmol/L) 99.0 Carbon Dioxide (21 - 32 mmol/L) 29.1 BUN (7 - 18 mg/dL) 17 Creatinine (0.55 - 1.30 mg/dL) 0.86 Glomerular Filtr Rate (>60) 65.2 Glucose (70 - 110 mg/dL) 126 H Calcium (8.2 - 10.1 mg/dL) 8.8 Laboratory Tests 05/30 335 Hematology Hgb (12 - 16 g/dL) 11.0 L Hct (37 - 47 %) 32.1 L Diagnosis, Assessment Plan Problem List/A P: 1. HTN (hypertension) BP is controlled. 2. Asthma Asymptomatic. 3. GERD (gastroesophageal reflux disease) Asymptomatic. 4. CKD (chronic kidney disease), stage III Renal fct has improved significantly. Free Text A P: Continue current treatment. Continue rehab. Electronically Signed by Sharath Bennett MD on 08/12 at 0755 [facility] #:[id number] END OF REPORT 2018-05-29 05:48:00-00:00 [id number] [facility] [place] [address] PATIENT NAME: STEVEN AMAYA ADMIT DATE: 05/28 ACCOUNT NO: [id number] ROOM NO: Y.[facility] AGE: 72 REPORT TYPE: OPERATIVE REPORT SEX: F ADMITTING PHYSICIAN:Theo Caban MD ATTENDING PHYSICIAN:Theo Caban MD OPERATION DATE: 05/28/2018 PREOPERATIVE DIAGNOSIS: Degenerative joint disea se, right knee. POSTOPERATIVE DIAGNOSIS: Degenerative joint dise ase, right knee. PROCEDURE PERFORMED: Right total knee arthroplas ty. SURGEON: Theo Caban MD SUPERVISOR METAL FURNITURE FABRICATION: Marck Dey CST/CHAPO ANESTHESIA: General anesthesia. ESTIMATED BLOOD LOSS: 125 mL. DRAINS: None. SPECIMENS: None. COMPLICATIONS: None. IMPLANTS: DePuy PFC Sigma size-2.5 femoral and t ibial component with 12.5-mm posterior-stabilized tibial polyethylene insert, and 32-mm oval patella. FINDINGS: Severe arthritis with acquired valgus deformity with eburnated bone in the lateral compartment and small marginal os teophytes. Areas of grade IV chondromalacia in the medial and patellofemoral compartment. INDICATIONS FOR SURGERY: Right knee pain and arthritis. Treatment options were discussed with the patient who voiced understand ing of the options and the planned procedure. The patient voiced understand ing of the risk of infection, damage to nerves or blood vessels with l oss of function, mechanical failure or loosening with need for revision surgery, blood clots possibly going to the lungs, possibly resulting in . These issues were discussed with the patient in the office prior to surgery. No warra nty or guarantee as to the outcome of the surgery was made. PROCEDURE IN DETAIL: The patient was identified in the preoperative holding area. All questions were answered. The patient's surgical site was appropriately marked under the patient's directi on and with the patient's consent. The patient was taken to the operating room where a timeout was PATIENT NAME: STEVEN AMAYA [id number] performed prior to induction of anesthesia, ensu ring that the patient was properly identified as the proper patient. After establishment of anesthesia, the right leg was prepped and draped sterilely. A surgical timeout was then initiated by the surgeon and performed under the direction of the circulating nurse. It was confirmed that the marking of the surgical site was visible after prepping and draping of the extremity, that it w as the proper patient, that x-rays with the patients name on it were display ed, that all necessary instruments were available a nd open and all potentially necessary implants were available. It was also confirmed that the instru ments had been properly sterilized. Each member of the surgical team int roduced themselves and described their role in the surgical pro cedure. After the surgical timeout was completed, surgery was begun. With the knee in a flexed position an an terior longitudinal incision extending from approximately 6 cm proximal to the proximal pole of the patella, slightly medial to the midline, was e xtended distally for a length of approximately 15 to 20 cm to the region of the medial aspect of the tibial tubercle. The incision was carried through the skin and subcutaneous ti ssues and hemostasis was then obtained using electrocautery. A sterile tourniq uet was available, but the surgery was initially performed without a tourni quet. The tourniquet was only to be placed if there was excessive bleeding. A mid vastus approach was then performed by dividing the fibers of the vastus m edialis oblique one fingerbreadth proximal to the proximal pole of t he patella for a distance of approximately 6 cm. The incision was then manuel d along the medial capsule along the medial border of t he patella leaving an adequate cuff of tissue on the patella for later closure. The incision continued down along the medial border of the patellar tendon along the tibial tubercle . Hemostasis was again obtained. The anterior portion of the medial men iscus was excised using scalpel. The knee was then e xtended and release of the deep MCL of the proximal medial tibia was performed using electrocautery under direct visualization as appropriate based on the patient's deformity. He mostasis was again obtained with the knee in extension. Synovium was then excised from the anterior distal femur to allow referencing of the anterior tibia l cortex for sizing of the femoral implant. The knee was then flexed and re tractors were placed beneath the medial and lateral collateral ligament. A small portion of the fat pad was excised allow ing better exposure of the anterolateral portion of the tibia. The anterior portion of the lateral meniscus was then excised to allow placement of the femoral sizing guide beneath the femur. The femoral canal was then entered at the superomedial border of the intercondylar notch above the PCL. The femoral c anal was then suctioned, removing marrow fat to reduce the risk for fat e mbolization and the intramedullary cutting guide was placed and pinned for a 10-mm resection. With flexion contracture of greater than 10 degrees i n a knee without valgus deformity, an additional 2-mm resection was perf ormed. The distal femur was carefully cut using an oscillating saw u nder direct visualization. The femoral sizing guide was then used to size the distal fe mur and the appropriate size 4-in-1 cutting block was cho sen. After the 4-in-1 cutting block was pinned into place, the anterior femoral condyle was removed with careful protection of the anterior femur and surrounding soft tiss ues. The anterior chamfer cut was also made. It was verified that Hohmann retractors we re adequately protecting the MCL and LCL as the posterior femoral condyles were cut and the posterior chamfer cut was made. The 4-in-1 femoral cutting block w as then removed. Marginal osteophytes on the femur were then removed. The distal femur was cut in 4 PATIENT NAME: STEVEN AMAYA [id number] degrees of valgus. Attention was turned to the proximal tibia where the remaining portion of the medial meniscus was excised using electrocautery as was the remaining portion of the lateral meniscus. The anterior cruciate liga ment was cut with electrocautery. Hohmann retractors were placed m edial and lateral and the tibial cutting guide was albert joseline to perform a 10-mm resection from the less-worn tibial plateau. The tibial cutting guide was pin celeste in place with 2 smooth pins. A third retractor was placed protecting the LCL as the proximal tibia was resected. Care was taken to resect up to , but not through the posterior tibial cortex to protect the posterior neurovascular st ructures. The tibial cutting guide was then removed and the wafer of bone res ected from the proximal tibia was removed using electrocautery and a r ongeur. Any remaining bone was removed using a three quarter-inch osteotome. Posterior femoral osteophytes were also removed using a three quarte r-inch osteotome followed by rongeur. Spacer blocks were then used to confirm th at the flexion and extension gaps were minimum of 8 to 10 mm in thickness and were well balanced. At tention was then turned to preparing the distal femur for the posterior-sta bilized implant. The Figueroa retractor was placed protect ing the proximal tibia and the femoral trial without the notch was placed on the distal femur and was centered appropriately in the notch that was marked to allow the notch cutting guide to be appropriately positioned in the medial and lateral width. The cutting guide was then pinned and the notch resection was performed using an t hin saw blade under direct visualization taking care not to undercut the fe moral condyles. The cutting guide was removed as was the block of salvador ne that was cut from the intercondylar notch. Attention was then turned to the tibia and the proximal tibia was exposed using 2 Hohmann retractors. The baseplate for the tibia of the appropriate size that obtained the greatest amount of cortical contact without overhang was positioned with appropriate rotational alignment, g enerally aligned with the medial third of the tibial tubercle. Afte r the tibial baseplate guide was pinned into place, the round S-ROM punch was used to remove bone fr om the area where the tibial stem would be implanted and the plug of bone removed from the proximal tibia was immediately impacted into the femoral ca nal to plug the distal femur to reduce intraoperative and postoperative blood loss. The tibia was then prepared for the stem and keel of the tibial implant. The femoral trial was then placed and a trial reduction was performed. It was confirme d that the flexion and extension gaps were well balanced. If th ey were not, the femoral component was downsized or additional bone was removed from the distal femur as appropriate to achieve excellent balance. T he rotational alignment of the tibial component was again confirmed to be appropriate or was adjuste d as needed. The lugs for the pegs on the femoral implant were drilled and the knee was brought into extension for preparation of the patella. The patella was everted and ____ were used to hold the patella in an everted manner. Synovium was then removed from the distal quadriceps tendon ins ertion to the proximal pole of patella to lessen the risk for postoperative patellar clunk syndrome. The appropriate thickness was then resected from the undersurface of the longo la, ranging from 8 to 11.5 mm based on the diameter of the patellar component. The 3 peg holes were then drilled and a trial patellar implant was placed to ensure satisfactory tracking of the patella and to protec t the patella during cementation of the femoral and tibial implants. The knee was then brought into flexion a nd the patella was retracted laterally PATIENT NAME: STEVEN AMAYA [id number] without eversion. A small step drill was used to drill any sclerotic bone to facilitate cement interdigitation. The distal fe mur and proximal tibia were prepared for cementation using pulsatile lavage to remove blood and fatty tissues to facilitate cement interdigitation. Zuniga ction was placed in the proximal tibia, which was packed with la parotomy sponge while 2 batches of CMW cement were mixed along with 1 gm of vancomycin. When the cement was slightly doughy, the preheated tibial implant was completely dried and cement was placed on the undersurface of the tibia and around the tibial stem and was also finger-packed into the proximal tibia. Care was taken to pack the cement into the trabecular bone of the proximal tibia to min imize lipid extrusion during cementation. The tibial implant was then impacted into place and excess cement was removed. The Figueroa retractor was placed to h old the tibial implant flush with the tibia while the femoral implant was sadaf ented. The distal femur was again cleaned with a laparotomy sponge and cemen t was placed on the distal surface of the femur and the undersurface of the femoral component and the femoral implant was impacted into place. Excess cement was removed. The trial tibial insert was then placed. The knee was then brought into full extension an d once again it was verified that flexion and extension gaps were well balanc ed. If necessary, additional cement was removed from the margins of t he femoral component and the posterior aspect of the femur. The knee was maintained in extension as the patellar implant was cemented. The kn ee was then taken through a range of motion and the thickness of the final tibia l insert was then chosen and the tibial polyethylene implant was opened. The periarticular injection was then performed using 0.5% ropivacaine with epinephrine. Toradol was added to the injection if the patient's GFR was greater than 60 and if not 10 mg of morphine sulfate was added. As the cement was hardening, the knee was soaked with dilute Betadine for 90 seconds or more. Once the cement had hard ened, the knee was thoroughly irrigated using pulsatile lavage with up to 3 li ters of normal saline. Once again, the posterior aspect of the knee was checked and any cement or debris was removed. The tibial polyethylene insert was then locked into place. The capsule was then repaired using #1 Vicryl and #2 Quill. Subcutaneous tissues were meticulously closed in layers using 0 and 2-0 Vicryl. The skin was closed using 3-0 nylon. A sterile compression bandage w as placed. The patient was awoken by the anesthesia team and [facility] in stable condition. POSTOPERATIVE PLAN: Weightbearing and range of m otion as tolerated. The skilled assistance of Marck Dey BELT KNIFE FEEDER/C FA was necessary during this surgical procedure. He assisted with every aspec t of the operation including, but not limited to, proper and safe positioning of the patient, obtaining adequate surgical exposure, manipulation of surgical instruments, the delicate task of the continual process of hemostasis duri ng the procedure. He is responsible for proper and safe manipulation of the surgical leg to allow visualization for me during surgery. His meticulous multi-layer closure of the surgical wound closure is es sential to proper wound healing and the reduction of post-operative infections and drainage. His assi stance allowed me to perform the most sensitive and techn ical portions of this operation using 2 hands, thus enhancing patient safety. This would not be poss ible without the help of a skilled market research assistant familiar with the proc edure and capable of safely performing the aforementioned tasks. Our facility i s not a teaching hospital and as such, no surgical residents or interns were available to assist. PATIENT NAME: STEVEN AMAYA [id number] Dictated By: Theo Caban MD WT: OP:MAGEN/LICO/GIACOMO Conf#: [id number]/DID#: [id number] Authenticated by Theo Caban MD On 11:49:32 AM at 1149 PATIENT NAME: STEVEN AMAYA [id number] 18:10:00-00:00 [id number] [facility] [address] [address] PATIENT NAME: STEVEN AMAYA ADMIT DATE: 05/28 ACCOUNT NO: [id number] ROOM NO: [facility] AGE: 72 REPORT TYPE: CONSULTATION REPORT SEX: F ADMITTING PHYSICIAN:Theo Caban MD ATTENDING PHYSICIAN:Theo Caban MD CONSULTATION DATE: 05/28/2018 CONSULTING PHYSICIAN: Sharath Bennett MD MEDICINE CONSULTATION CONSULTING PHYSICIAN: Sharath Bennett MD REASON FOR CONSULTATION: Postoperative medical e valuation and management of patient with multiple medical problems. HISTORY OF PRESENT ILLNESS: The patient is a 72- year-old white female with right knee degenerative arth ritis, who underwent a right total knee arthroplasty earlier today. The patient tolerated surgery wel l. She currently denies any chest pain, shortness of breath, nausea, or vomi ting. She has adequate pain control at the present time. She denies any lightheadedness when getting up to walk with the physical therapist earlier this af ternoon. PAST MEDICAL HISTORY: Hypertension. Allergy-subha joseline asthma. Chronic kidney disease stage III. Gastroesophageal reflux disea se. Hypercholesterolemia. The patient denies any diabetes, coronary artery disease, congestive heart failure, sleep apnea, or history of deep venous thrombosi s. PAST SURGICAL HISTORY: Lumbar spine surgery. ALLERGIES: PENICILLIN. CURRENT MEDICATIONS: Melaton in 6 mg at bedtime p.r.n. insomnia; diphenhydramine daily p.r.n. allergies; ProAir HFA 2 puffs q. 6 hours p.r.n. shortness of breath; amlodipine 5 mg daily; atorvastatin 20 m g Monday, Monday, Monday; lisinopril/hydrochlorothiazide 20 per 12.5 q.a.m .; metoprolol succinate 50 mg q.p.m.; ECASA 81 mg daily (on hold); etodolac 50 0 mg b.i.d. p.r.n. pain (on hold); gabapentin 600 mg q.p .m. and at bedtime; tramadol 50 mg q. 6 hours p.r.n. pain; calcium carbonate 500 mg daily; omeprazole 40 mg daily; Osteo Bi-Flex daily; biotin 5 mg daily; vitamin D 2000 units d aily; vitamin B12 1000 mcg daily. FAMILY HISTORY: Mother had hypertension, diabete s, and breast cancer. Father had hypertension. 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 She does not smoke or drink alcohol. PATIENT NAME: STEVEN AMAYA [id number] REVIEW OF SYSTEMS: The patient denies exertional chest pain, dyspnea on exertion, orthopnea, PND, black tarry stools, br ight red blood per rectum, or dysuria. PHYSICAL EXAMINATION: GENERAL: Well-developed, well-nourished white female, in no apparent distress. VITAL SIGNS: Pulse 50 and regular, respirations 18, blood pressure 146/71, temperature 96.8, oxygen saturation 100% on 3 L O2. EYES: EOMI. PERRLA. Sclerae are anicteric. OROPHARYNX: Clear. NECK: No adenopathy, thyromegaly, masses, tender ness, JVD, or carotid bruits. LUNGS: Clear to auscultation. HEART: Bradycardic with regular rhythm. No murmu rs, gallops, or rubs. ABDOMEN: Minimal bowel sounds throughout. No hep atosplenomegaly, masses, tenderness, bruits, or distention. EXTREMITIES: No clubbing, cyanosis, or edema. No calf or thigh swelling or posterior tenderness bilater ally. No Homans sign or palpable cords bilaterally. Toes on right foot are pink and warm to touch. LABORATORY DATA: Preoperative laboratories (04/27); BUN 19, creatinine 1.11, GFR 48.6. IMPRESSION: 1. Hypertension. Blood pressure mildly elevated at present time. 2. Allergy-induced asthma. Asymptomatic. 3. Chronic kidney disease stage III. Use of etod olac, aspirin, and lisinopril/hydrochlorothiazide may be playing a role as is the patient's advanced age. 4. Gastroesophageal reflux disease. Asymptomatic . 5. Hypercholesterolemia. 6. Status post right total knee arthropl asty. The patient is currently stable. PLAN: 1. Low-salt, low-cholesterol diet. 2. Sequential compression devices to both feet. 3. Tomorrow morning start Xarelto 10 mg daily, c ontinue for another 10 days after discharge. 4. The patient may restart aspirin once outpatie nt Xarelto prescription has been completed. 5. The patient encouraged not to take et odolac while the patient is on Xarelto and then to potentially avoid the etodolac altog ether because it may be negatively affecting her kidney function. 6. Change ProAir HFA to albuterol unit dose via nebulizer q. 4 hours p.r.n. shortness of breath/wheezing. 7. Hold amlodipine and lisinopril/hydrochlorothi azide if systolic blood pressure less than 120. 8. Hold metoprolol succinate for systolic blood pressure less than 110 or heart rate less than 50. 9. Maalox 30 mL p.o. q. 6 hours p.r.n. indigesti on. 10. The patient encouraged to eat sittin g up, out of bed when possible and not to lie down within two hours after eating in ord er to minimize risk of reflux symptoms. 11. Continue physical therapy in a.m. PATIENT NAME: STEVEN AMAYA [id number] 12. Check H and H and chem-6 in a.m. Thank you very much for this consultation. I sheldon l follow patient with you during her hospitalization. Dictated By: Sharath Bennett MD WT: CON:MAGEN/KELSEA/NTS Conf#: [id number]/DID#: [id number] Authenticated by Sharath Bennett MD On 06/01/2018 07:44:09 AM Electronically Signed by Sharath Bennett MD on at 0744 PATIENT NAME: STEVEN AMAYA [id number] 18:00:00-00:00 [facility] Internal Medicine Prog. Note REPORT#:[id number] REPORT STATUS: Signed DATE:05/28/18 TIME: 1800 PATIENT: STEVEN AMAYA UNIT #: [id number] ROOM/BED: [address] : [address] AGE: 72 SEX: F ATTEND: Elliot Caban MD ADM AUTHOR: Sharath Bennett MD * ALL edits or amendments must be made on the [employer] document * Subjective Free Text Subj Notes Free Text Subj Notes: Consult Note Dictated Objective General VS/I O: Vital Signs Date Temp Pulse Resp B/P B/P Mean Pulse Ox FiO2 05/28 96.8-97.2 46-96 12-20 117-171/69-76 96.1 96-100 Last Documented: Result Date Time O2 Delivery Nasal cannula 05/28 170 O2 Flow Rate 3.545884 05/28 1708 Pulse Ox 100 05/28 1610 B/P 146/71 05/28 1610 B/P Mean 96.1 05/28 1610 Temp 96.8 05/28 1610 Pulse 50 05/28 1610 Resp 18 05/28 1610 Physical Exam General appearance: alert, awake, no acute distr ess Diagnosis, Assessment Plan Problem List/A P: 1. HTN (hypertension) 2. Asthma 3. GERD (gastroesophageal reflux disease) 4. CKD (chronic kidney disease), stage III Electronically Signed by Sharath Bennett MD on 07/13 at 1853 RPT #:[id number] END OF REPORT 2018-05-28 12:57:00-00:00 [facility] ([facility]) Brief Op Note REPORT#:[id number] REPORT STATUS: Signed DATE:05/28/18 TIME: 1257 PATIENT: STEVEN AMAYA UNIT #: [id number] ROOM/BED: [place] [address] : 47 AGE: 72 SEX: F ATTEND: Elliot Caban MD ADM AUTHOR: Theo Caban MD * ALL edits or amendments must be made on the [employer] document * Op/Inv Proc Note - Brief Pre-procedure diagnosis: djd r knee Post-procedure diagnosis: same as pre procedure dx Procedures performed: r tka Primary Surgeon: sveta Sleever(s): anali Anesthesia: general anesthesia Findings: djd Complications: none Estimated blood loss in ml's: 125cc Specimens removed/altered: none at 1258 RPT #:[id number] END OF REPORT
[2022-08-30] MEDS ORDERED: METOPROLOL TAR 25 MG TAB ONE (09:48)
[2022-08-30 10:06] LABS: Hematocrit 39.8 % (36.0-45.0); MCV 84.2 fL (80-100); MPV 8.2 fL (7.6-11.3); RBC Red Blood Cell Count 4.73 M/uL (3.86-4.86)
[2022-08-30 10:07] LABS: Protime INR 0.94
[2022-08-30 10:26] LABS: Magnesium 1.9 mg/dL (1.6-2.4); Potassium 3.3 mEq/L (3.5-5.1); Troponin High Sensitivity 9.3 pg/mL (<58.9)
--- NOTE | 2022-08-30 10:43 | RAD REPORT ---
EXAM DESCRIPTION: [place] Single View08/30/2022 10:25 am CLINICAL HISTORY: PALPITATIONS COMPARISON: Chest Pa And Lat (2 Views) dated 05/08/2020; CHEST PA AND LAT 2 VIEW dated 08/02/2006 TECHNIQUE: Portable AP view of the chest. FINDINGS: The lungs are clear. Mild central interstitial prominence. No pneumothorax or effusion. T he cardiomediastinal contours are unremarkable. IMPRESSION: Mild central interstitial prominence, could relate to mild congestion. No focal airspace opacities.
--- NOTE | 2022-08-30 12:10 | RAD REPORT ---
EXAM DESCRIPTION: CT - Angio Aorta For Dissection - 08/30/2022 11:42 am CLINICAL HISTORY: chest pain COMPARISON: No comparisons TECHNIQUE: Dynamically enhanced 3 mm thick images of the chest, abdomen, and pelvis were obtained du ring administration of approximately 100mL Isovue 370 IV contrast. Sagittal and coronal reconstructio ns as well as maximal intensity projection reconstruction were generated and reviewed per an aortic a ngiography protocol. All CT scans are performed using dose optimization technique as appropriate and may include automated exposure control or mA/KV adjustment according to patient size. FINDINGS: Aorta is normal in diameter with no dissection or other acute aortic findings. Reconstruct ion images show no significant findings. Pulmonary arteries are normal as well. Triangular focus of opacification along the medial upper segment left lower lobe subpleural space lisa suring 11 millimeter. No other suspicious mass or infiltrate in the lung parenchyma. Mild nodular thi ckening in the subpleural anterior right lower lobe, axial image 54,, and upper segment left lower lo be, axial image 51. These are nonspecific but likely benign. No pleural thickening, pleural effusion or pneumothorax. No abnormal mediastinal or hilar mass or lymphadenopathy seen. No chest wall mass or abnormal axillar y lymphadenopathy. Celiac, SMA and renal arteries are patent with moderate atherosclerotic narrowing at the SMA origin. Colonic diverticulosis. Status post cholecystectomy. Small renal cortical fluid density lesions bilat erally, not well evaluated. Solid abdominal viscera and bowel show no other significant findings. No mass or abnormal lymphadenopathy. IMPRESSION: No acute abnormalities on CT angiogram of the aorta. Possible subsegmental atelectasis in the left lower lobe upper segment. No other acute findings on ch est, abdomen and pelvis examination. Incidental findings as above.
--- NOTE | 2022-08-30 12:20 | EDPHYS ---
Physician Documentation [facility] Name: Sweetie Rivera Age: 76 yrs Sex: Female : 1945 Arrival Date: 08/30/2022 Time: 08:43 Bed 15 Private MD: Jose A García S ED Physician Lonnie Sherman HPI: 08/30 09:07 This 76 yrs old Female presents to ER via Ambulatory with complaints of palpitations. rn 09:07 The patient presents with a history of irregular heart beat, heart racing. Onset: The rn symptoms/episode began/occurred this morning. Duration: The patient or guardian reports a single episode, that is still ongoing. Modifying factors: The symptoms are aggravated by nothing. The symptoms are alleviated by taking extra metoprolol. Associated signs and symptoms: Pertinent negatives: fever, SOB, syncope. Severity of symptoms: At their worst the symptoms were moderate in the emergency department the symptoms have improved. The patient has not experienced similar symptoms in the past. The patient has been recently seen by a physician:. Pt reports palpitations, began this AM, has known mitral valve regurgitation, scheduled for SPENCER soon, denies hx of afib, reports fast and irregular heart beat. Took extra 25 mg metoprolol this AM and feels a little better. . Historical: - Allergies: 09:04 PENICILLINS; aa5 - PMHx: 09:04 mitral valve leak; borderline diabetes; aa5 09:04 Hypertensive disorder; aa5 - PSHx: 09:04 Carotid endarterectomy; aa5 - Immunization history:: Adult Immunizations unknown. - Social history:: Smoking status: Patient denies any tobacco usage or history of. - Family history:: not pertinent. - Hospitalizations: : No recent hospitalization is reported. ROS: 09:07 Constitutional: Negative for fever, chills, and weight loss, Neck: Negative for injury, rn pain, and swelling, Cardiovascular: Negative for edema Respiratory: Negative for shortness of breath, cough, wheezing, and pleuritic chest pain, Abdomen/GI: Negative for abdominal pain, nausea, vomiting, diarrhea, and constipation, MS/Extremity: Negative for injury and deformity, Skin: Negative for injury, rash, and discoloration, Neuro: Negative for headache, numbness, tingling, and seizure Exam: 09:07 Constitutional: This is a well developed, well nourished patient who is awake, alert, rn and in no acute distress. Head/Face: Normocephalic, atraumatic. Cardiovascular: Regular rate, irregular rhythm. No pulse deficits. Respiratory: No increased work of breathing, no retractions or nasal flaring. Abdomen/GI: Soft, non-tender Skin: Warm, dry MS/ Extremity: Pulses equal, no cyanosis. Neuro: Awake and alert, GCS 15 09:35 ECG was reviewed by the Attending Physician. rn Vital Signs: 08:50 BP 165 / 77; Pulse 97; Resp 18 S; Temp 98(TE); Pulse Ox 97% on R/A; aa5 10:15 BP 128 / 82; Pulse 48; Resp 20; Pulse Ox 99% ; bp 13:38 BP 138 / 73; Pulse 48; Resp 15; Pulse Ox 99% ; bp MDM: 08:47 Patient medically screened. rn 10:36 ED course: Pt given an extra 25mg metoprolol, has since converted back to sinus rhythm, rn feels much better. Trop neg.. 12:18 Differential diagnosis: arrythmia, dehydration, stress disorder, afib. Data reviewed: rn vital signs, nurses notes, lab test result(s), radiologic studies, CT scan, and as a result, I will discharge patient. Consideration of Admission/Observation Escalation of care including admission/observation considered. Patient converted back to sinus.. Counseling: I had a detailed discussion with the patient and/or guardian regarding: the historical points, exam findings, and any diagnostic results supporting the discharge/admit diagnosis, lab results, radiology results, the need for outpatient follow up, to return to the emergency department if symptoms worsen or persist or if there are any questions or concerns that arise at home. Special discussion: I discussed with the patient/guardian in detail that at this point there is no indication for admission to the hospital. It is understood, however, that if the symptoms persist or worsen the patient needs to return immediately for re-evaluation. 08/30 09:02 Order name: Basic Metabolic Panel; Complete Time: 10:27 rn 08/30 09:02 Order name: CBC with Diff; Complete Time: 10:11 rn 08/30 09:02 Order name: Magnesium; Complete Time: 10:27 rn 08/30 09:02 Order name: NT PRO-BNP; Complete Time: 10:27 rn 08/30 09:02 Order name: PT-INR; Complete Time: 10:11 rn 08/30 09:02 Order name: Troponin HS; Complete Time: 10:27 rn 08/30 09:02 Order name: XRAY Chest (1 view); Complete Time: 10:58 rn 08/30 10:18 Order name: CT Aorta for Dissection; Complete Time: 12:17 rn 08/30 09:02 Order name: EKG; Complete Time: 09:03 rn 08/30 10:21 Order name: EKG; Complete Time: 10:21 bp 08/30 09:02 Order name: Cardiac monitoring; Complete Time: 09:08 rn 08/30 09:02 Order name: EKG - Nurse/Tech; Complete Time: 09:22 rn 08/30 09:02 Order name: IV Saline Lock; Complete Time: 09:21 rn 08/30 09:02 Order name: Labs collected and sent; Complete Time: 09:21 rn 08/30 09:02 Order name: O2 Per Protocol; Complete Time: 09:08 rn 08/30 09:02 Order name: O2 Sat Monitoring; Complete Time: 09:08 rn 08/30 09:36 Order name: Labs - recollect needed: recollect all labs; Complete Time: 09:57 bd 08/30 10:21 Order name: EKG - Nurse/Tech; Complete Time: 10:21 bp EC:35 Rate is 99 beats/min. Rhythm is irregularly irregular. QRS Scott is Normal. QRS interval rn is normal. QT interval is normal. No Q waves. T waves are Normal. No ST changes noted. Clinical impression: Atrial Fibrillation. Interpreted by me. Reviewed by me. Administered Medications: 09:57 Drug: Metoprolol PO 25 mg Route: PO; jl7 10:20 Follow up: Response: No adverse reaction; Marked relief of symptoms bp Disposition Summary: 08/30/22 12:19 Discharge Ordered Location: Home rn Problem: new rn Symptoms: have improved rn Condition: Stable rn Diagnosis - Paroxysmal atrial fibrillation rn Followup: rn - With: Private Physician - When: As needed - Reason: Recheck today's complaints, Re-evaluation by your physician Discharge Instructions: - Discharge Summary Sheet rn - Atrial Fibrillation rn - Mitral Valve Regurgitation rn - Aspirin and Your Heart rn Forms: - Medication Reconciliation Form rn - Thank You Letter rn - Antibiotic clothing pattern preparer - Prescription Opioid Use rn Signatures: Dispatcher [employer] Sabrina Degroot Roman, MD MD rn Calderon, Audri, RN RN aa5 Helen Alvraado RN RN jl7 Karl Ramirez, RN RN bp
--- NOTE | 2022-08-30 12:20 | ER ---
Nurse's Notes [facility] Name: Sweetie Rivera Age: 76 yrs Sex: Female : 1945 Arrival Date: 08/30/2022 Time: 08:43 Bed 15 Private MD: Jose A García S Diagnosis: Paroxysmal atrial fibrillation Presentation: 08/30 08:50 Chief complaint: Patient states: "I have a mitral valve leak and this morning around aa5 4:30am I started feeling my heart beating on my chest and it felt irregular". Pt c/o palpitations. 08:50 Coronavirus screen: At this time, the client does not indicate any symptoms associated aa5 with coronavirus-19. Ebola Screen: Patient denies travel to an Ebola-affected area in the 21 days before illness onset. Initial Sepsis Screen: Does the patient meet any 2 criteria? No. Patient's initial sepsis screen is negative. Does the patient have a suspected source of infection? No. Patient's initial sepsis screen is negative. Risk Assessment: Do you want to hurt yourself or someone else? Patient reports no desire to harm self or others. Onset of symptoms was August 30, 2022. 08:50 Acuity: PIETER 2 aa5 08:50 Method Of Arrival: Ambulatory aa5 Triage Assessment: 09:00 General: Appears in no apparent distress. Behavior is calm, cooperative, appropriate bp for age. Pain: Denies pain. EENT: No deficits noted. Neuro: No deficits noted. Cardiovascular: Reports palpitations. Respiratory: No deficits noted. GI: No signs and/or symptoms were reported involving the gastrointestinal system. : No signs and/or symptoms were reported regarding the genitourinary system. Derm: No deficits noted. Musculoskeletal: No deficits noted. Historical: - Allergies: 09:04 PENICILLINS; aa5 - PMHx: 09:04 mitral valve leak; borderline diabetes; aa5 09:04 Hypertensive disorder; aa5 - PSHx: 09:04 Carotid endarterectomy; aa5 - Immunization history:: Adult Immunizations unknown. - Social history:: Smoking status: Patient denies any tobacco usage or history of. - Family history:: not pertinent. - Hospitalizations: : No recent hospitalization is reported. Screenin:00 [facility] ED Fall Risk Assessment (Adult) History of falling in the last 3 months, bp including since admission No falls in past 3 months (0 pts). Abuse screen: Denies threats or abuse. Denies injuries from another. Nutritional screening: No deficits noted. Tuberculosis screening: No symptoms or risk factors identified. Assessment: 09:00 General: SEE TRIAGE NOTE. bp 10:15 Reassessment: PT STATES ACUTE CP RADIATING TO BACK, CONVERTED TO SINUS ANJALI ON bp MONITOR. MD NOTIFIED. Vital Signs: 08:50 BP 165 / 77; Pulse 97; Resp 18 S; Temp 98(TE); Pulse Ox 97% on R/A; aa5 10:15 BP 128 / 82; Pulse 48; Resp 20; Pulse Ox 99% ; bp 13:38 BP 138 / 73; Pulse 48; Resp 15; Pulse Ox 99% ; bp ED Course: 08:47 Patient arrived in ED. im 08:47 Lonnie Sherman MD is Attending Physician. rn 08:48 Jose A García MD is Private Physician. im 08:50 Arm band placed on Patient placed in an exam room, on a stretcher. aa5 08:53 Karl Ramirez, FELIX is Primary Nurse. bp 09:00 Patient has correct armband on for positive identification. Bed in low position. Call bp light in reach. Side rails up X2. 09:06 Triage completed. aa5 09:22 Inserted saline lock: 22 gauge in right hand, using aseptic technique. ,using aseptic aa5 technique. inserted by KLARISSA Marlow Blood collected. 10:27 XRAY Chest (1 view) In Process Unspecified. EDMS 11:00 Radiology exam delayed due to IV insertion attempt and/or patient not having ls3 appropriate IV at this time. 11:44 CT Aorta for Dissection In Process Unspecified. EDMS 13:38 No provider procedures requiring assistance completed. IV discontinued, intact, bp bleeding controlled, No redness/swelling at site. Pressure dressing applied. Administered Medications: 09:57 Drug: Metoprolol PO 25 mg Route: PO; jl7 10:20 Follow up: Response: No adverse reaction; Marked relief of symptoms bp Medication: 13:37 VIS not applicable for this client. bp Outcome: 12:19 Discharge ordered by . rn 13:37 Discharged to home ambulatory. bp 13:37 Condition: stable 13:37 Discharge instructions given to patient, Instructed on discharge instructions, follow up and referral plans. Demonstrated understanding of instructions, follow-up care. 13:39 Patient left the ED. bp Signatures: Dispatcher [employer] EDMS Lonnie Sherman MD MD rn Coty Guy RN RN aa5 Helen Alvarado RN RN jl7 Karl Ramirez RN RN bp Mary Rollins ls3 Danielle Rodriguez Corrections: (The following items were deleted from the chart) 09:23 09:22 Inserted saline lock: 20 gauge in right antecubital area, using aseptic aa5 technique. Blood collected. bp
[2022-08-30 13:43] VITALS: TEMP 98
[2022-08-30 13:45] VITALS: O2SAT 99
[2022-08-30 13:47] VITALS: BP 138/73
--- NOTE | 2022-08-31 07:18 | EKG ---
Test Date: 2022-08-30 Test Time: 09:03:09 Gluer Machine Setup Operator: ALMAZ MEASUREMENT RESULTS: Intervals: Rate: 99 [place]: QRSD: 92 QT: 304 QTc: 390 [place]: P: [place]: QRS: 65 T: 252 INTERPRETIVE STATEMENTS: Atrial fibrillation Septal infarct, age undetermined Marked ST abnormality, possible inferior subendocardial injury Abnormal ECG Compared to ECG 05/08/2020 13:16:15 Myocardial infarct finding now present Sinus bradycardia no longer present ST (T wave) deviation still present Electronically Signed On 08-31-22 07:14:16 CDT by Stefan May
--- NOTE | 2022-08-31 14:34 | EKG ---
Test Date: 2022-08-30 Test Time: 10:21:02 Credit Authorizer: ALMAZ MEASUREMENT RESULTS: Intervals: Rate: 47 SC: 186 QRSD: 92 QT: 432 QTc: 382 [place]: P: 82 SC: 186 QRS: 62 T: 62 INTERPRETIVE STATEMENTS: Sinus bradycardia Nonspecific ST and T wave abnormality Abnormal ECG Compared to ECG 08/30/2022 09:03:09 Atrial fibrillation no longer present Myocardial infarct finding no longer present ST (T wave) deviation still present Electronically Signed On 08-31-22 14:32:34 CDT by Paras Vidales
== END 2022-08-30 13:39 | disposition home or self-care (01) ==
LOC: ER 08:43
DX: I48.0 Paroxysmal atrial fibrillation (principal); I10 Essential (primary) hypertension; Z88.0 Allergy status to penicillin
CPT/HCPCS: 93005 ×2; 85025; 80048; 36415; 83735; 85610; 84484; 83880; 71275; 74175; 71045; 99284; Q9967

== ENCOUNTER → 2022-09-15 | Day surgery (SDC) | payer OTHER, MEDICARE ==
[~2022-09-15] MED LIST: ATROPINE SULF 1 MG/10 ML SYR IV ONE; FLUMAZENIL 0.1 MG/ML (5 mL VIAL) IV ONE; HYDRALAZINE HCL 20 MG/ML VIAL ONE; LIDOCAINE VISCOUS 2% SOLN 15 ML UDC ONE; MIDAZOLAM HCL 5 ML ONE; PHENOL 1.4% ORAL SPRAY 180ML ONE
--- NOTE | 2022-09-16 06:44 | TEE ---
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 TRANSESOPHAGEAL ECHOCARDIOGRAM PROBE WAS INSERTED, NO DIFFICULTY 2. NORMAL LEFT VENTRICULAR EJECTION FRACTION 60-65% 3. SEVERE MITRAL REGURGITATION TECHNOLOGIST: KARENA VIEYRA
== END ==
LOC: EKG 10:44
PROVIDERS: ATTEND Internal Medicine
DX: I34.0 Nonrheumatic mitral (valve) insufficiency (principal); I10 Essential (primary) hypertension; E78.5 Hyperlipidemia, unspecified; Z87.891 Personal history of nicotine dependence; Z88.0 Allergy status to penicillin; Z82.49 Family history of ischemic heart disease and other diseases of the circulatory system
CPT/HCPCS: 93312; J2250; J0360; J0461

== ENCOUNTER 2022-11-19 15:14 | Inpatient (IN) | payer OTHER, MEDICARE ==
--- OUTSIDE RECORDS SUMMARY | 2022-11-19 15:30 | XMS REPORT | Continuity of Care Document ---
:1945 Author Organization [facility] t Address [address] [place] [address] Care Team Providers Name Role Phone Chema García MD Primary Care Physician JOHN PAUL LAKHANI Attending Clinician Unavailable CHEMA GARCÍA Attending Clinician Unavailable RITIKA ALAN Attending Clinician Unavailable Nurse, [facility] Attending Clinician Unavailable Unknown, Attending Attending Clinician Unavailable UNKNOWN, ATTENDING Attending Clinician Unavailable Chema García MD Attending Clinician Doctor Unassigned, [place] Attending Clinician Unavailable Yenny Cortez Attending Clinician Unavailable Dory Hoff Attending Clinician Unavailable Yenny Boone Attending Clinician Unavailable MILLICENT_Todd_Mar_NP Attending Clinician Unavailable LORY RUBIO Attending Clinician Unavailable Lory Rubio DO Attending Clinician JADEN DOW Attending Clinician Unavailable Maurilio Whittaker PA-C Attending Clinician MAURILIO WHITTAKER Attending Clinician Unavailable Donna HAIR SAMPLE MATCHER, Mayra Attending Clinician Lab, Ang - Db Attending Clinician Unavailable Jaden Dow MD Attending Clinician Nurse, Louie Chilel Attending Clinician Unavailable Sylvie Correa MA Attending Clinician Unavailable Sharyn Nam MA Attending Clinician Unavailable NERY BONILLA Attending Clinician Unavailable Nery Walsh Attending Clinician Pob, Adc Lab Main Attending Clinician Unavailable Paris Franco MD Attending Clinician PARIS FRANCO Attending Clinician Unavailable Yenny Wright MD Attending Clinician YENNY WRIGHT Attending Clinician Unavailable Vaccine, Ang Db Cbc Fam Attending Clinician Unavailable Troy WASHINGTON, Suzi Attending Clinician Unavailable Zay CASTING ASSISTANT, Nyasia Reed Attending Clinician Leatha TINEO, Talon Attending Clinician Camron TINEO, Colin Childers Attending Clinician Anum TINEO, Fatemeh Fernández Attending Clinician Only, Adc Test Attending Clinician Unavailable Javier Patiño MD Attending Clinician Juan Ashton Attending Clinician Unavailable Bj WASHINGTON, Aelssandra Shepherd Attending Clinician Unavailable WOLFGANG GEORGE Attending Clinician Unavailable [facility] Attending Clinician Unavailable Price GAYTAN, Adeline Kohler Attending Clinician Donny Velasquez DO Attending Clinician Eh WASHINGTON, Evette Attending Clinician April TINEO, John Paul Oliveira Attending Clinician [phone] [place] TINEO, Kirby Attending Clinician Jony TINEO, Tigist Guevara Attending Clinician Nurse, Adc Fam Pob I Attending Clinician Unavailable Wolfgang Barragan Attending Clinician Deepthi Chappell Attending Clinician DEEPTHI HARDY Attending Clinician Unavailable Bridgett WASIHNGTON, Ciera Attending Clinician KIRBY NASH Attending Clinician Unavailable Gurjit Perez MD Attending Clinician Kirby Nash MD Attending Clinician JOHN PAUL LAKHANI Admitting Clinician Unavailable Yenny Cortez Admitting Clinician Unavailable Dory Hoff Admitting Clinician Unavailable Yenny Boone Admitting Clinician Unavailable FOG_Halamicek_Mar_NP Admitting Clinician Unavailable LORY RUBIO Admitting Clinician Unavailable JADEN DOW Admitting Clinician Unavailable Talon Zhang MD Admitting Clinician CHEMA GARCÍA Admitting Clinician Unavailable Physician, No Primary or Family Admitting Clinician Unavaila ble KNOW, DOES_NOT Admitting Clinician Unavailable KIRBY NASH Admitting Clinician Unavailable Kirby Nash MD Admitting Clinician Payers Payer Name Policy Type Policy Number Effective Date Expiration Source Date MEDICARE PART A \\T\\ B [id number] 2012 00:00:00 [facility] [id number] 2014 MEDICARE SUPPLEMENT 00:00:00 [place] [id number] 2012 [employer] 00:00:00 [facility] [id number] 2021 OPTIONS (MEDICARE 00:00:00 SUPPLEMENT) [facility] - [id number] 2021 OPTIONS 00:00:00 MEDICAREMEDICARE A [id number] [facility] [id number] 2012[facility] [id number] SUPPLEMENT/INDIVIDUAL 00:00:00 [id number] 2020-PresentMedig ap Problems Condition Condition Condition Status Onset Resolution Last Treating Co mments Source Name Details Category Date Date Treatment Clinician Date S/P MVR S/P MVR Disease Active Univers (mitral (mitral 8- ity of valve valve 00:00: [place] replacemen replacemen 00 Me dical t) t) Branch Pacemaker Pacemaker Disease Active Uni vers 8-21 ity of 00:00: [place] 00 Medical Branch Lumbar Lumbar Problem Active 2021-03 Pretty spondylosi Spondylosi 1-14 Or thope s s 00:00: dic 00 Sports Medicin e Lumbosacra Lumbosacra Problem Active A zalea l l 2-08 Orthope spondylosi Spondylosi 00:00: di c s without s without 00 Spor ts myelopathy Myelopathy Me dicin e Intestinal Intestinal Disease Active 2020-03 U nivers bleeding bleeding 0-21 ity of 00:00: [place] 00 Medical Branch Lower GI Lower GI Disease Active 2020-03 Unive rs bleed bleed 0-20 ity of 00:00: [place] 00 Medical Branch Synovitis/ Synovitis/ Problem Active A zalea tenosynovi tenosynovi 7 Or thope tis - hip tis - Hip 00:00: dic 00 Sports Medicin e Family Family Disease Active Univers history of history of 7-12 it y of osteoporos osteoporos [place] Knee joint Knee Joint Problem Active A mickiea ankylosis Ankylosis 6-22 Orth ope 00:00: dic 00 Sports Medicin e Stenosis Stenosis Disease Active [facility] 3 [facility] carotid carotid 00:00: Medical artery artery 00 Center Carotid Carotid Disease Active [facility] stenosis stenosis [facility] 00:[facility] Medical [facility] Center Degenerati Degenerati Problem Active A zalea on of on of 1-11 Orthope lumbar Lumbar 00:00: dic interverte Interverte 00 Sp orts bral disc bral Disc Medi raghu e Psychosoci Psychosoci Problem Active 2019-03 A zalea al al 0-12 Orthope dysfunctio Dysfunctio 00:00: di c n due to n Due to 00 Sports chronic Chronic Medicin pain Pain e Diarrhea Diarrhea Disease Active Unive rs 3-09 ity of 00:00: [place] 00 Medical Branch Dehydratio Dehydratio Disease Active U nivers n n 3-09 ity of 00:00: [place] 00 Medical Branch History of History of Disease Active U nivers arterial arterial 3-09 ity of ischemic ischemic 00:00: [place] stroke stroke 00 Medical Branch CHERYL (acute CHERYL (acute Disease Active U nivers kidney kidney 3-09 ity of injury) injury) 00:00: [place] 00 Medical Branch Syncope Syncope Disease Active Univers 3-08 ity of 00:00: [place] 00 Medical Branch Spondyloli Spondyloli Problem Active [...] nivers pain pain 8-17 ity of 00:00: [place] 00 Medical Branch Right knee Right knee Disease Active U nivers pain pain 8-17 ity of 00:00: [place] 00 Medical Branch Thumb Thumb Disease Active [...] Problem Active 2010-03 Aza bonnie aiding Aiding 107 Orthope diagnosis Diagnosis 00:00: dic 00 Sports Medicin e Arthritis Arthritis Problem Active 2010-03 Aza bonnie of facet of Facet 107 Orthop e joint of Joint of 00:00: dic cervical Cervical 00 Sports spine Spine Medicin e Radiculiti Radiculiti Problem Active 2010-03 A alexander s due to s Due to 1-07 Orthop e displaceme Displaceme 00:00: di c nt of nt of 00 Sports interverte Interverte Me dicin bral disc bral Disc e Myofascial Myofascial Problem Active 2010-03 A alexander low back Low Back 1-07 Orthop e pain Pain 00:00: dic 00 Sports Medicin e Carotid Carotid Disease Active [facility] artery artery [facility] occlusion occlusion Medi melita Center Osteoarthr Osteoarthr Disease Active C [facility] itis is [facility] Chronic Chronic Disease Active [facility] kidney kidney [facility] disease disease Medical (CKD), (CKD), Center stage II stage II (mild) (mild) Allergies, Adverse Reactions, Alerts Allergy Allergy Status Severity Reaction(s) Onset Inactive Treating Comm ents Source Name Type Date Date Clinician Penicill DA Active MO BREATHING [facility] ins ISSUES- [place] W 7-12 Makayla r KEFLEX 00:00: Abad 00 [facility] Penicill DA Active MO BREATHING 2021-03 [facility] ins ISSUES, 0-31 Clear TONGUE 00:00: Abad SWELLING 00 [facility] Penicill DA Active MO BREATHING [facility] ins ISSUES, 2-08 [place] TONGUE 00:00: Orthope SWELLING 00 dic Hospita l Penicill DA Active MO BREATHING [facility] ins ISSUES, 1- [place] TONGUE 00:00: Orthope SWELLING 00 dic Hospita l Penicill DA Active MO BREATHING [facility] ins ISSUES, 8- [place] TONGUE 00:00: Orthope SWELLING 00 dic Hospita l Penicill DA Active MO BREATHING [facility] ins ISSUES, 1- [place] TONGUE 00:00: Orthope SWELLING 00 dic Hospita l Penicill DA Active MO BREATHING [facility] ins ISSUES, 5 [place] TONGUE 00:00: Orthope SWELLING 00 dic Hospita l Penicill DA Active MO BREATHING [facility] ins ISSUES, 5 [place] TONGUE 00:00: Orthope SWELLING 00 dic Hospita l Penicill DA Active MO SWELLING,NAMRATA 2018-03 HC A ins H, [place]ILDHOOD 0-09 [place] 00:[place]ope 00 dic Hospita [facility] Penicill DA Active MO 2018-1 [facility] ins 0-08 [place] 00:00: Orthope 00 dic Hospita l Penicill DA Active MO 2019-0 [facility] ins 9-03 [place] 00:00: Orthope 00 dic Hospita l Penicill DA Active MO 2019-0 [facility] ins 3-04 [place] 00:00: Orthope 00 dic Hospita l Penicill DA Active MO 2019-0 [facility] ins 2-12 [facility] 00:[facility] [place] Penicill DA Active MO 2018-0 [facility] ins 9-13 [place] 00:00: Orthope 00 dic Hospita l Penicill DA Active MO 2018-0 [facility] ins 9-12 [place] 00:00: Orthope 00 dic Hospita l Penicill DA Active MO 2018-0 [facility] ins 4-20 [place] 00:00: Orthope 00 dic Hospita l codeine DA Active AL 2018-0 [facility] 4-20 [place] 00:00: Orthope 00 dic Hospita l PENICILL [...] Allergy 0-08 [facility] Center Penicill Drug Active Swelling 2014-[address] [facility] [...] dic e 00 Sports Medicin e PENICILL Drug Active High Swelling 2012-03 Univer s INS Class 0-15 ity of 00:00: [place] 00 Medical Branch Penicill Drug Active Swelling 2012-03 Univer s ins Allergy 0-15 ity of 00:00: [place] 00 [facility] Branch Family History Family Member Diagnosis Comments Start Date Stop Date Source Natural father Heart disease [facility] Natural father Stroke [facility] Natural mother Cancer [facility] Natural mother Diabetes [facility] Natural sister Diabetes [facility] Natural sister Hypertension [facility] Social History Social Habit Start Date Stop Date Quantity Comments Source History SDOH [facility] Alcohol Comment Medical C enter Gender identity Universit y of [facility] Sexual orientation Univer sity of [facility] History SDOH [facility] Alcohol Std Drinks Medica l [place] History SDOH [facility] Alcohol Binge Medical [address] History of Social 2022-11-14 2022-11-14 Univers ity of function 00:00:00 00:00:00 [facility] Exposure to 2022-06-04 2022-06-14 Not sure University of SARS-CoV-2 (event) 00:00:00 09:51:00 [facility] Alcohol intake 2020-05-26 2020-05-[address] [facility] es 00:00:00 00:00:00 non-drinker Medical Daniella r (finding) History SDOH 2020-05-19 2020-05-19 1 JOSE DANIEL [facility] Alcohol Frequency 00:00:00 00:00:00 [facility] Tobacco use and 2015-11-11 2015-11-11 Smokeless Universit y of exposure 00:00:00 00:00:00 tobacco non-user [facility] Sex [birth year] JOSE DANIEL Miless 00:00:00 00:00:00 [facility] Smoking Status Start Date Stop Date Source Never smoked tobacco [facility] Medications Ordered Filled Start Stop Current Ordering Indication Dosage Frequency Signature Comments Components Source Medication Medication Date Date Medication? Clinician (SIG) Name Name doxycycline 2022- Yes 100mg Take 1 Uni vers monohydrate 8-21 capsule by it y of 100 mg 08:53: mouth [place] capsule 50 every 12 Medical (twelve) Branch hours. ergocalcife 2022-0 Yes TAKE ONE Un marlen rol, 8-21 CAPSULE BY ity of vitamin d2, 08:53: MOUTH [place] 1,250 mcg 50 EVERY 7 Medical (50,000 DAYS Branch unit) capsule etodolac 2022-0 Yes Univers 500 mg 8-21 ity of tablet 08:53: [place] [id number] Medical Branch fluconazole 2022-0 Yes TAKE 1 Univ ers 150 mg 8-21 TABLET BY ity of tablet 08:53: MOUTH 1 [place] 50 TIME NOW Medical FOR 1 Branch DOSE. MAY REPEAT IN 3-4 DAYS FOR 1 DOSE NEEDED doxycycline 2022-0 Yes 100mg Take 1 Uni vers monohydrate 8-21 capsule by it y of 100 mg 08:53: mouth [place] capsule 50 every 12 Medical (twelve) Branch hours. ergocalcife 2022-0 Yes TAKE ONE Un marlen rol, 8-21 CAPSULE BY ity of vitamin d2, 08:53: MOUTH [place] 1,250 mcg 50 EVERY 7 Medical (50,000 DAYS Branch unit) capsule etodolac 3-0 Yes Univers 500 mg 8-21 ity of tablet 08:53: [place] [address] Medical Branch fluconazole 2022-0 Yes TAKE 1 Univ ers 150 mg 8-21 TABLET BY ity of tablet 08:53: MOUTH 1 [place] 50 TIME NOW Medical FOR 1 Branch DOSE. MAY REPEAT IN 3-4 DAYS FOR 1 DOSE NEEDED doxycycline 2023-0 Yes 100mg Take 1 Uni vers monohydrate 8-21 capsule by it y of 100 mg 08:53: mouth [place] capsule 50 every 12 Medical (twelve) Branch hours. ergocalcife 0 Yes TAKE ONE Un marlen rol, 8-21 CAPSULE BY ity of vitamin d2, 08:53: MOUTH [place] 1,250 mcg 50 EVERY 7 Medical (50,000 DAYS Branch unit) capsule etodolac 2022-0 Yes Univers 500 mg 8-21 ity of tablet 08:53: [place] 50 Medical Branch fluconazole 2022-0 Yes TAKE 1 Univ ers 150 mg 8-21 TABLET BY ity of tablet 08:53: MOUTH 1 [place] 50 TIME NOW Medical FOR 1 Branch DOSE. MAY REPEAT IN 3-4 DAYS FOR 1 DOSE NEEDED furosemide 2022-0 Yes 20mg Take 1 Unive rs 20 mg 8-04 tablet by ity of tablet 00:00: mouth [place] 00 every Medical morning. Branch furosemide 2022-0 Yes 20mg Take 1 Unive rs 20 mg 8-04 tablet by ity of tablet 00:00: mouth [place] 00 every Medical morning. Branch furosemide 2022-0 Yes 20mg Take 1 Unive rs 20 mg 8-04 tablet by ity of tablet 00:00: mouth [place] 00 every Medical morning. Branch HYDROcodone 2022-0 2022- No 1{tbl} 1 tablet, Univers -acetaminop 1-04 -04 Oral, ity of hen (NORCO 20:45: 20:44 ONCE, 1 Julián as 5) 5-325 mg 00 :00 dose, On Medi melita tablet 1 Mon03/30/22 Bran h tablet at 1445, BLANCA acetaminoph 2022-0 Yes [id number] 1{tbl} Take 1 Un marlen en-codeine 1-04 tablet by ity of (TYLENOL-CO 00:00: mouth [place] DEINE #3) 00 every 4 Medical 300-30 mg (four) Branch tablet hours as needed for Pain (scale 1-3). Indication s: acute pain acetaminoph 2022-0 Yes [id number] 1{tbl} Take 1 Un marlen [...] Indication s: acute pain cetirizine 2021-03 Yes [id number] 5mg Take 1 Univers 5 mg tablet 1-09 tablet by ity of 00:00: mouth in [place] 00 the Medical morning. Branch cetirizine 2021-03 Yes [id number] 5mg Take 1 Univers 5 mg tablet 1-09 tablet by ity of 00:00: mouth in [place] the Medical morning. Branch cetirizine 2021-03 Yes [id number] 5mg Take 1 Univers 5 mg tablet 1-09 tablet by ity of 00:00: mouth in [place] the Medical morning. Branch cetirizine 2021-03 Yes [id number] 5mg Take 1 Univers 5 mg tablet 1-09 tablet by ity of 00:00: mouth in [place] the Medical morning. Branch cetirizine 2021-03 Yes [id number] 5mg Take 1 Univers 5 mg tablet 1-09 tablet by ity of 00:00: mouth in [place] the morning. Branch cetirizine 2021-03 Yes [id number] 5mg Take 1 Univers 5 mg tablet 1-09 tablet by ity of 00:00: mouth in [place] the Medical morning. Branch cetirizine 2021-03 Yes [id number] 5mg Take 1 Univers 5 mg tablet 1-09 tablet by ity of 00:00: mouth in [place] the Medical morning. Branch cetirizine 2021-03 Yes [id number] 5mg Take 1 Univers 5 mg tablet 1-09 tablet by ity of 00:00: mouth in [place] the morning. Branch cetirizine 2021-03 Yes [id number] 5mg Take 1 Univers 5 mg tablet 1-09 tablet by ity of 00:00: mouth in [place] the Medical morning. Branch cetirizine 2021-03 Yes [id number] 5mg Take 1 Univers 5 mg tablet 1-09 tablet by ity of 00:00: mouth in [place] the Medical morning. Branch cetirizine 2021-03 Yes [id number] 5mg Take 1 Univers 5 mg tablet 1-09 tablet by ity of 00:00: mouth in [place] the Medical morning. Branch cetirizine 2021-03 Yes [id number] 5mg Take 1 Univers 5 mg tablet 1-09 tablet by ity of 00:00: mouth in [place] the Medical morning. Branch cetirizine 2021-03 Yes [id number] 5mg Take 1 Univers 5 mg tablet 1-09 tablet by ity of 00:00: mouth in [place] the Medical morning. Branch cetirizine 2021-03 Yes [id number] 5mg Take 1 Univers 5 mg tablet 1-09 tablet by ity of 00:00: mouth in [place] the Medical morning. Branch cetirizine 2021-03 Yes [id number] 5mg Take 1 Univers 5 mg tablet 1-09 tablet by ity of 00:00: mouth in [place] the Medical morning. Branch cetirizine 2021-03 Yes [id number] 5mg Take 1 Univers 5 mg tablet 1-09 tablet by ity of 00:00: mouth in [place] the Medical morning. [place] cetirizine 2021-03 Yes [id number] 5mg Take 1 Univers 5 mg tablet 1-09 tablet by ity of 00:00: mouth in [place] the Medical morning. Branch cetirizine 2021-03 Yes [id number] 5mg Take 1 Univers 5 mg tablet 1-09 tablet by ity of 00:00: mouth in [place] the Medical morning. Branch nystatin 2021-03- No [id number] Take 10 mL Univers 100,000 1-07 11-18 U by mouth 4 ity o f unit/mL 00:00: 05:59 (four) [place] suspension 00 :00 times Medical daily for Branch 10 days. Swish and swallow or swish and spit. nystatin 2021-03- No [id number] Take 10 mL Univers 100,000 1-07 11-18 U by mouth 4 ity o f unit/mL 00:00: 05:59 (four) [place] suspension 00 :00 times Medical daily for Branch 10 days. Swish and swallow or swish and spit. amLODIPine 2021-03 Yes [id number] 5mg Take 1 U nivers 5 mg tablet 0-21 tablet by ity of 00:00: mouth [place] 00 every Medical morning. Branch atorvastati 2021-03 Yes [id number] 20mg Take 1 Univers n 20 mg 0-21 tablet by ity of tablet 00:00: mouth in [place] 00 the Medical morning. Branch gabapentin 2021-03 Yes [id number] 300mg Take 1 Univers 300 mg 0-21 capsule by ity of capsule 00:00: mouth 4 [place] 00 (four) Medical times [place] daily. omeprazole 2021-03 Yes [id number] 40mg Take 1 Univers 40 mg 0-21 capsule by ity of capsule 00:00: mouth in [place] 00 the Medical morning. Branch metoprolol 2021-03 Yes [id number] 50mg Take 1 U nivers succinate 0-21 tablet by ity o f XL 50 mg 24 00:00: [place] hr tablet 00 the Medical morning. Branch lisinopriL- 2021-03 Yes [id number] 1{tbl} Take 1 Univers hydrochloro 0-21 tablet by ity of thiazide 00:00: mouth in [place] 20-12.5 mg 00 the Medical per tablet morning. Branc h amLODIPine 2021-03 Yes [id number] 5mg Take 1 U nivers 5 mg tablet 0-21 tablet by ity of 00:00: mouth [place] 00 every Medical morning. Branch atorvastati 2021-03 Yes [id number] 20mg Take 1 Univers n 20 mg 0-21 tablet by ity of tablet 00:00: mouth in [place] 00 the Medical morning. Branch gabapentin 2021-03 Yes [id number] 300mg Take 1 Univers 300 mg 0-21 capsule by ity of capsule 00:00: mouth 4 [place] 00 (four) Medical times [place] daily. omeprazole 2021-03 Yes [id number] 40mg Take 1 Univers 40 mg 0-21 capsule by ity of capsule 00:00: mouth in [place] 00 the Medical morning. Branch metoprolol 2021-03 Yes [id number] 50mg Take 1 U nivers succinate 0-21 tablet by ity o f XL 50 mg 24 00:00: [place] hr tablet 00 the Medical morning. Branch lisinopriL- 2021-03 Yes [id number] 1{tbl} Take 1 Univers hydrochloro 0-21 tablet by ity of thiazide 00:00: mouth in [place] 20-12.5 mg 00 the Medical per tablet morning. Branc h amLODIPine 2021-03 Yes [id number] 5mg Take 1 U nivers 5 mg tablet 0-21 tablet by ity of 00:00: mouth [place] 00 every Medical morning. Branch atorvastati 2021-03 Yes [id number] 20mg Take 1 Univers n 20 mg 0-21 tablet by ity of tablet 00:00: mouth in [place] 00 the Medical morning. Branch gabapentin 2021-03 Yes [id number] 300mg Take 1 Univers 300 mg 0-21 capsule by ity of capsule 00:00: mouth 4 [place] 00 (four) Medical times [place] daily. omeprazole 2021-03 Yes [id number] 40mg Take 1 Univers 40 mg 0-21 capsule by ity of capsule 00:00: mouth in [place] 00 the Medical morning. Branch metoprolol 2021-03 Yes [id number] 50mg Take 1 U nivers succinate 0-21 tablet by ity o f XL 50 mg 24 00:00: mouth [place] hr tablet 00 the Medical morning. Branch lisinopriL- 2021-03 Yes [id number] 1{tbl} Take 1 Univers hydrochloro 0-21 tablet by ity of thiazide 00:00: mouth in [place] 20-12.5 mg 00 the Medical per tablet morning. Bran h amLODIPine 2021-03 Yes [id number] 5mg Take 1 U nivers 5 mg tablet 0-21 tablet by ity of 00:00: mouth [place] 00 every Medical morning. Branch atorvastati 2021-03 Yes [id number] 20mg Take 1 Univers n 20 mg 0-21 tablet by ity of tablet 00:00: mouth in [place] 00 the Medical morning. Branch gabapentin 2021-03 Yes [id number] 300mg Take 1 Univers 300 mg 0-21 capsule by ity of capsule 00:00: mouth 4 [place] [address] (four) Medical times [place] daily. omeprazole 2021-03 Yes [id number] 40mg Take 1 Univers 40 mg 0-21 capsule by ity of capsule 00:00: mouth in [place] 00 the Medical morning. Branch metoprolol 2021-03 Yes [id number] 50mg Take 1 U nivers succinate 0-21 tablet by ity o f XL 50 mg 24 00:00: mouth [place] hr tablet 00 the Medical morning. Branch lisinopriL- 2021-03 Yes [id number] 1{tbl} Take 1 Univers hydrochloro 0-21 tablet by ity of thiazide 00:00: mouth in [place] 20-12.5 mg 00 the Medical per tablet morning. Branc h amLODIPine 2021-03 Yes [id number] 5mg Take 1 U nivers 5 mg tablet 0-21 tablet by ity of 00:00: mouth [place] 00 every Medical morning. Branch atorvastati 2021-03 Yes [id number] 20mg Take 1 Univers n 20 mg 0-21 tablet by ity of tablet 00:00: mouth in [place] 00 the Medical morning. Branch gabapentin 2021-03 Yes [id number] 300mg Take 1 Univers 300 mg 0-21 capsule by ity of capsule 00:00: mouth 4 [place] 00 (four) Medical times Branch daily. omeprazole 2021-03 Yes [id number] 40mg Take 1 Univers 40 mg 0-21 capsule by ity of capsule 00:00: mouth in [place] 00 the Medical morning. Branch metoprolol 2021-03 Yes [id number] 50mg Take 1 U nivers succinate 0-21 tablet by ity o f XL 50 mg 24 00:00: mouth [place] hr tablet 00 the Medical morning. Branch lisinopriL- 2021-03 Yes [id number] 1{tbl} Take 1 Univers hydrochloro 0-21 tablet by ity of thiazide 00:00: mouth in [place] 20-12.5 mg 00 the Medical per tablet morning. Bran h amLODIPine 2021-03 Yes [id number] 5mg Take 1 U nivers 5 mg tablet 0-21 tablet by ity of 00:00: mouth [place] 00 every Medical morning. Branch atorvastati 2021-03 Yes [id number] 20mg Take 1 Univers n 20 mg 0-21 tablet by ity of tablet 00:00: mouth in [place] 00 the Medical morning. Branch gabapentin 2021-03 Yes [id number] 300mg Take 1 Univers 300 mg 0-21 capsule by ity of capsule 00:00: mouth 4 [place] 00 (four) Medical times Branch daily. omeprazole 2021-03 Yes [id number] 40mg Take 1 Univers 40 mg 0-21 capsule by ity of capsule 00:00: mouth in [place] 00 the Medical morning. Branch metoprolol 2021-03 Yes [id number] 50mg Take 1 U nivers succinate 0-21 tablet by ity o f XL 50 mg 24 00:00: mouth [place] hr tablet 00 the Medical morning. Branch lisinopriL- 2021-03 Yes [id number] 1{tbl} Take 1 Univers hydrochloro 0-21 tablet by ity of thiazide 00:00: mouth in [place] 20-12.5 mg 00 the Medical per tablet morning. Branc h amLODIPine 2021-03 Yes [id number] 5mg Take 1 U nivers 5 mg tablet 0-21 tablet by ity of 00:00: mouth [place] 00 every Medical morning. Branch atorvastati 2021-03 Yes [id number] 20mg Take 1 Univers n 20 mg 0-21 tablet by ity of tablet 00:00: mouth in [place] 00 the Medical morning. Branch gabapentin 2021-03 Yes [id number] 300mg Take 1 Univers 300 mg 0-21 capsule by ity of capsule 00:00: mouth 4 [place] 00 (four) Medical times [place] daily. omeprazole 2021-03 Yes [id number] 40mg Take 1 Univers 40 mg 0-21 capsule by ity of capsule 00:00: mouth in [place] 00 the Medical morning. Branch metoprolol 2021-03 Yes [id number] 50mg Take 1 U nivers succinate 0-21 tablet by ity o f XL 50 mg 24 00:00: mouth [place] hr tablet 00 the Medical morning. Branch lisinopriL- 2021-03 Yes [id number] 1{tbl} Take 1 Univers hydrochloro 0-21 tablet by ity of thiazide 00:00: mouth in [place] 20-12.5 mg 00 the Medical per tablet morning. Bran h amLODIPine 2021-03 Yes [id number] 5mg Take 1 U nivers 5 mg tablet 0-21 tablet by ity of 00:00: mouth [place] 00 every Medical morning. Branch atorvastati 2021-03 Yes [id number] 20mg Take 1 Univers n 20 mg 0-21 tablet by ity of tablet 00:00: mouth in [place] 00 the Medical morning. Branch gabapentin 2021-03 Yes [id number] 300mg Take 1 [facility] 300 mg 0-21 capsule by [facility] of capsule 00:00: mouth 4 [place] 00 (four) Medical times [place] daily. omeprazole 2021-03 Yes [id number] 40mg Take 1 [facility] 40 mg 0-21 capsule by it[facility] of capsule 00:00: mouth in [place] 00 the Medical morning. Branch metoprolol 2021-03 Yes [id number] 50mg Take 1 [facility] succinate 0-21 tablet by ity o f XL 50 mg 24 00:00: mouth in [place] hr tablet 00 the Medical morning. Branch lisinopriL- 2021-03 Yes [id number] 1{tbl} Take 1 [facility] hydrochloro 0-21 tablet by ity of thiazide 00:00: mouth in [place] 20-12.5 mg 00 the Medical per tablet morning. Bran h amLODIPine 2021-03 Yes [id number] 5mg Take 1 [facility] nivers 5 mg tablet 0-21 tablet by ity of 00:00: mouth [place] 00 every Medical morning. Branch atorvastati 2021-03 Yes [id number] 20mg Take 1 [facility] n 20 mg 0-21 tablet by ity of tablet 00:00: mouth in [place] 00 the Medical morning. Branch gabapentin 2021-03 Yes [id number] 300mg Take 1 [facility] 300 mg 0-21 capsule by ity of capsule 00:00: mouth 4 [place] [address] (four) Medical times Branch daily. omeprazole 2021-03 Yes [id number] 40mg Take 1 [facility] 40 mg 0-21 capsule by ity of capsule 00:00: mouth in [place] 00 the Medical morning. Branch metoprolol 2021-03 Yes [id number] 50mg Take 1 [facility] nivers succinate 0-21 tablet by ity o f XL 50 mg 24 00:00: mouth in [place] hr tablet 00 the Medical morning. Branch lisinopriL- 2021-03 Yes [id number] 1{tbl} Take 1 [facility] hydrochloro 0-21 tablet by ity of thiazide 00:00: mouth in [place] 20-12.5 mg 00 the Medical per tablet morning. Bran h amLODIPine 2021-03 Yes [id number] 5mg Take 1 [facility] nivers 5 mg tablet 0-21 tablet by ity of 00:00: mouth [place] 00 every Medical morning. Branch atorvastati 2021-03 Yes [id number] 20mg Take 1 [facility] n 20 mg 0-21 tablet by ity of tablet 00:00: mouth in [place] 00 the Medical morning. Branch gabapentin 2021-03 Yes [id number] 300mg Take 1 [facility] 300 mg 0-21 capsule by ity of capsule 00:00: mouth 4 [place] 00 (four) Medical times [place] daily. omeprazole 2021-03 Yes [id number] 40mg Take 1 [facility] 40 mg 0-21 capsule by ity of capsule 00:00: mouth in [place] 00 the Medical morning. Branch metoprolol 2021-03 Yes [id number] 50mg Take 1 [facility] nivers succinate 0-21 tablet by ity o f XL 50 mg 24 00:00: mouth in [place] hr tablet 00 the Medical morning. Branch lisinopriL- 2021-03 Yes [id number] 1{tbl} Take 1 [facility] hydrochloro 0-21 tablet by ity of thiazide 00:00: mouth in [place] 20-12.5 mg 00 the Medical per tablet morning. Bran h amLODIPine 2021-03 Yes [id number] 5mg Take 1 [facility] n[facility] 5 mg tablet 0-21 tablet by ity of 00:00: mouth [place] 00 every Medical morning. Branch atorvastati 2021-03 Yes [id number] 20mg Take 1 [facility] n 20 mg 0-21 tablet by ity of tablet 00:00: mouth in [place] 00 the Medical morning. Branch gabapentin 2021-03 Yes [id number] 300mg Take 1 [facility] 300 mg 0-21 capsule by ity of capsule 00:00: mouth 4 [place] 00 (four) Medical times Branch daily. omeprazole 2021-03 Yes [id number] 40mg Take 1 [facility] 40 mg 0-21 capsule by ity of capsule 00:00: mouth in [place] 00 the Medical morning. Branch metoprolol 2021-03 Yes [id number] 50mg Take 1 [facility] nivers succinate 0-21 tablet by ity o f XL 50 mg 24 00:00: mouth in [place] hr tablet 00 the Medical morning. Branch lisinopriL- 2021-03 Yes [id number] 1{tbl} Take 1 [facility] hydrochloro 0-21 tablet by ity of thiazide 00:00: mouth in [place] 20-12.5 mg 00 the Medical per tablet morning. [facility] h amLODIPine 2021-03 Yes [id number] 5mg Take 1 [facility] nivers 5 mg tablet 0-21 tablet by ity of 00:00: mouth [place] 00 every Medical morning. Branch atorvastati 2021-03 Yes [id number] 20mg Take 1 [facility] n 20 mg 0-21 tablet by ity of tablet 00:00: mouth in [place] 00 the Medical morning. Branch gabapentin 2021-03 Yes [id number] 300mg Take 1 [facility] 300 mg 0-21 capsule by ity of capsule 00:00: mouth 4 [place] 00 (four) Medical times [place] daily. omeprazole 2021-03 Yes [id number] 40mg Take 1 [facility] 40 mg 0-21 capsule by ity of capsule 00:00: mouth in [place] 00 the Medical morning. Branch metoprolol 2021-03 Yes [id number] 50mg Take 1 [facility] nivers succinate 0-21 tablet by ity o f XL 50 mg 24 00:00: mouth in [place] hr tablet 00 the Medical morning. Branch lisinopriL- 2021-03 Yes [id number] 1{tbl} Take 1 [facility] hydrochloro 0-21 tablet by ity of thiazide 00:00: mouth in [place] 20-12.5 mg 00 the Medical per tablet morning. Branc h amLODIPine 2021-03 Yes [id number] 5mg Take 1 [facility] nivers 5 mg tablet 0-21 tablet by ity of 00:00: mouth [place] 00 every Medical morning. Branch atorvastati 2021-03 Yes [id number] 20mg Take 1 [facility] n 20 mg 0-21 tablet by ity of tablet 00:00: mouth in [place] 00 the Medical morning. Branch gabapentin 2021-03 Yes [id number] 300mg Take 1 [facility] 300 mg 0-21 capsule by ity of capsule 00:00: mouth 4 [place] 00 (four) Medical times [place] daily. omeprazole 2021-03 Yes [id number] 40mg Take 1 [facility] 40 mg 0-21 capsule by ity of capsule 00:00: mouth in [place] 00 the Medical morning. Branch metoprolol 2021-03 Yes [id number] 50mg Take 1 [facility] nivers succinate 0-21 tablet by ity o f XL 50 mg 24 00:00: mouth in [place] hr tablet 00 the Medical morning. Branch lisinopriL- 2021-03 Yes [id number] 1{tbl} Take 1 [facility] hydrochloro 0-21 tablet by ity of thiazide 00:00: mouth in [place] 20-12.5 mg 00 the Medical per tablet morning. Branc h amLODIPine 2021-03 Yes [id number] 5mg Take 1 [facility] nivers 5 mg tablet 0-21 tablet by ity of 00:00: mouth [place] 00 every Medical morning. Branch atorvastati 2021-03 Yes [id number] 20mg Take 1 [facility] n 20 mg 0-21 tablet by ity of tablet 00:00: mouth in [place] 00 the Medical morning. Branch gabapentin 2021-03 Yes [id number] 300mg Take 1 [facility] 300 mg 0-21 capsule by ity of capsule 00:00: mouth 4 [place] 00 (four) Medical times [place] daily. omeprazole 2021-03 Yes [id number] 40mg Take 1 [facility] 40 mg 0-21 capsule by ity of capsule 00:00: mouth in [place] 00 the Medical morning. Branch metoprolol 2021-03 Yes [id number] 50mg Take 1 [facility] nivers succinate 0-21 tablet by ity o f XL 50 mg 24 00:00: mouth in [place] hr tablet 00 the Medical morning. Branch lisinopriL- 2021-03 Yes [id number] 1{tbl} Take 1 [facility] hydrochloro 0-21 tablet by ity of thiazide 00:00: mouth in [place] 20-12.5 mg 00 the Medical per tablet morning. Branc h amLODIPine 2021-03 Yes [id number] 5mg Take 1 [facility] nivers 5 mg tablet 0-21 tablet by ity of 00:00: mouth [place] 00 every Medical morning. Branch atorvastati 2021-03 Yes [id number] 20mg Take 1 [facility] n 20 mg 0-21 tablet by ity of tablet 00:00: mouth in [place] 00 the Medical morning. Branch gabapentin 2021-03 Yes [id number] 300mg Take 1 [facility] 300 mg 0-21 capsule by ity of capsule 00:00: mouth 4 [place] 00 (four) Medical times [place] daily. omeprazole 2021-03 Yes [id number] 40mg Take 1 [facility] 40 mg 0-21 capsule by ity of capsule 00:00: mouth in [place] 00 the Medical morning. Branch metoprolol 2021-03 Yes [id number] 50mg Take 1 U nivers succinate 0-21 tablet by ity o f XL 50 mg 24 00:00: mouth in [place] hr tablet 00 the Medical morning. Branch lisinopriL- 2021-03 Yes [id number] 1{tbl} Take 1 [facility] hydrochloro 0-21 tablet by ity of thiazide 00:00: mouth in [place] 20-12.5 mg 00 the Medical per tablet morning. Branc h amLODIPine 2021-03 Yes [id number] 5mg Take 1 U nivers 5 mg tablet 0-21 tablet by ity of 00:00: mouth [place] 00 every Medical morning. Branch atorvastati 2021-03 Yes [id number] 20mg Take 1 [facility] n 20 mg 0-21 tablet by ity of tablet 00:00: mouth in [place] 00 the Medical morning. Branch gabapentin 2021-03 Yes [id number] 300mg Take 1 [facility] 300 mg 0-21 capsule by ity of capsule 00:00: mouth 4 [place] 00 (four) Medical times [place] daily. omeprazole 2021-03 Yes [id number] 40mg Take 1 [facility] 40 mg 0-21 capsule by ity of capsule 00:00: mouth in [place] 00 the Medical morning. Branch metoprolol 2021-03 Yes [id number] 50mg Take 1 U nivers succinate 0-21 tablet by ity o f XL 50 mg 24 00:00: mouth in [place] hr tablet 00 the Medical morning. Branch lisinopriL- 2021-03 Yes [id number] 1{tbl} Take 1 [facility] hydrochloro 0-21 tablet by ity of thiazide 00:00: mouth in [place] 20-12.5 mg 00 the Medical per tablet morning. [facility] amLODIPine 2021-03 Yes [id number] 5mg Take 1 U nivers 5 mg tablet 0-21 tablet by ity of 00:00: mouth [place] 00 every Medical morning. Branch atorvastati 2021-03 Yes [id number] 20mg Take 1 [facility] n 20 mg 0-21 tablet by ity of tablet 00:00: mouth in [place] 00 the Medical morning. Branch gabapentin 2021-03 Yes [id number] 300mg Take 1 [facility] 300 mg 0-21 capsule by ity of capsule 00:00: mouth 4 [place] 00 (four) Medical times [place] daily. omeprazole 2021-03 Yes [id number] 40mg Take 1 [facility] 40 mg 0-21 capsule by ity of capsule 00:00: mouth in [place] 00 the Medical morning. Branch metoprolol 2021-03 Yes [id number] 50mg Take 1 U nivers succinate 0-21 tablet by ity o f XL 50 mg 24 00:00: mouth in [place] hr tablet 00 the Medical morning. Branch lisinopriL- 2021-03 Yes [id number] 1{tbl} Take 1 [facility] hydrochloro 0-21 tablet by ity of thiazide 00:00: mouth in [place] 20-12.5 mg 00 the Medical per tablet morning. Bran h amLODIPine 2021-03 Yes [id number] 5mg Take 1 U nivers 5 mg tablet 0-21 tablet by ity of 00:00: mouth [place] 00 every Medical morning. Branch atorvastati 2021-03 Yes [id number] 20mg Take 1 [facility] n 20 mg 0-21 tablet by ity of tablet 00:00: mouth in [place] 00 the Medical morning. Branch gabapentin 2021-03 Yes [id number] 300mg Take 1 [facility] 300 mg 0-21 capsule by ity of capsule 00:00: mouth 4 [place] 00 (four) Medical times [place] daily. omeprazole 2021-03 Yes [id number] 40mg Take 1 [facility] 40 mg 0-21 capsule by ity of capsule 00:00: mouth in [place] 00 the Medical morning. Branch metoprolol 2021-03 Yes [id number] 50mg Take 1 U nivers succinate 0-21 tablet by ity o f XL 50 mg 24 00:00: mouth in [place] hr tablet 00 the Medical morning. Branch lisinopriL- 2021-03 Yes [id number] 1{tbl} Take 1 [facility] hydrochloro 0-21 tablet by ity of thiazide 00:00: mouth in [place] 20-12.5 mg 00 the Medical per tablet morning. [facility] h amLODIPine 2021-03 Yes [id number] 5mg Take 1 U nivers 5 mg tablet 0-21 tablet by ity of 00:00: mouth [place] 00 every Medical morning. Branch atorvastati 2021-03 Yes [id number] 20mg Take 1 [facility] n 20 mg 0-21 tablet by ity of tablet 00:00: mouth in [place] 00 the Medical morning. Branch gabapentin 2021-03 Yes [id number] 300mg Take 1 [facility] 300 mg 0-21 capsule by ity of capsule 00:00: mouth 4 [place] 00 (four) Medical times [place] daily. omeprazole 2021-03 Yes [id number] 40mg Take 1 [facility] 40 mg 0-21 capsule by ity of capsule 00:00: mouth in [place] 00 the Medical morning. Branch metoprolol 2021-03 Yes [id number] 50mg Take 1 U nivers succinate 0-21 tablet by ity o f XL 50 mg 24 00:00: mouth in [place] hr tablet 00 the Medical morning. Branch lisinopriL- 2021-03 Yes [id number] 1{tbl} Take 1 [facility] hydrochloro 0-21 tablet by ity of thiazide 00:00: mouth in [place] 20-12.5 mg 00 the Medical per tablet morning. Branc h amLODIPine 2021-03 Yes [id number] 5mg Take 1 U nivers 5 mg tablet 0-21 tablet by ity of 00:00: mouth [place] 00 every Medical morning. Branch atorvastati 2021-03 Yes [id number] 20mg Take 1 [facility] n 20 mg 0-21 tablet by ity of tablet 00:00: mouth in [place] 00 the Medical morning. Branch gabapentin 2021-03 Yes [id number] 300mg Take 1 [facility] 300 mg 0-21 capsule by ity of capsule 00:00: mouth 4 [place] [address] (four) Medical times [place] daily. omeprazole 2021-03 Yes [id number] 40mg Take 1 [facility] 40 mg 0-21 capsule by ity of capsule 00:00: mouth in [place] 00 the Medical morning. Branch metoprolol 2021-03 Yes [id number] 50mg Take 1 U nivers succinate 0-21 tablet by ity o f XL 50 mg 24 00:00: mouth in [place] hr tablet 00 the Medical morning. Branch lisinopriL- 2021-03 Yes [id number] 1{tbl} Take 1 [facility] hydrochloro 0-21 tablet by ity of thiazide 00:00: mouth in [place] 20-12.5 mg 00 the Medical per tablet morning. Bran h amLODIPine 2021-03 Yes [id number] 5mg Take 1 U nivers 5 mg tablet 0-21 tablet by ity of 00:00: mouth [place] 00 every Medical morning. Branch atorvastati 2021-03 Yes [id number] 20mg Take 1 [facility] n 20 mg 0-21 tablet by ity of tablet 00:00: mouth in [place] 00 the Medical morning. Branch gabapentin 2021-03 Yes [id number] 300mg Take 1 [facility] 300 mg 0-21 capsule by ity of capsule 00:00: mouth 4 [place] 00 (four) Medical times [place] daily. omeprazole 2021-03 Yes [id number] 40mg Take 1 [facility] 40 mg 0-21 capsule by ity of capsule 00:00: mouth in [place] 00 the Medical morning. Branch metoprolol 2021-03 Yes [id number] 50mg Take 1 U nivers succinate 0-21 tablet by ity o f XL 50 mg 24 00:00: mouth in [place] hr tablet 00 the Medical morning. Branch lisinopriL- 2021-03 Yes [id number] 1{tbl} Take 1 [facility] hydrochloro 0-21 tablet by ity of thiazide 00:00: mouth in [place] 20-12.5 mg 00 the Medical per tablet morning. [facility] omeprazole 2021-03 Yes [id number] 40mg Take 1 [facility] 40 mg 0-19 capsule by ity of capsule 00:00: mouth in [place] 00 the Medical morning. Branch metoprolol 2021-03 Yes [id number] 50mg Take 1 U nivers succinate 0-19 tablet by ity o f XL 50 mg 24 00:00: mouth in [place] hr tablet 00 the Medical morning. Branch lisinopriL- 2021-03 Yes [id number] 1{tbl} Take 1 [facility] hydrochloro 0-19 tablet by ity of thiazide 00:00: mouth in [place] 20-12.5 mg 00 the Medical per tablet morning. [facility] gabapentin 2021-03 Yes [id number] 300mg Take 1 [facility] 300 mg 0-19 capsule by ity of capsule 00:00: mouth 4 [place] 00 (four) Medical times Branch daily. atorvastati 2021-03 Yes [id number] 20mg Take 1 [facility] n 20 mg 0-19 tablet by ity of tablet 00:00: mouth in [place] 00 the Medical morning. Branch amLODIPine 2021-03 Yes [id number] 5mg Take 1 U nivers 5 mg tablet 0-19 tablet by ity of 00:00: mouth [place] 00 every Medical morning. Branch omeprazole 2021-03 Yes [id number] 40mg Take 1 [facility] 40 mg 0-19 capsule by ity of capsule 00:00: mouth in [place] 00 the Medical morning. Branch metoprolol 2021-03 Yes [id number] 50mg Take 1 U nivers succinate 0-19 tablet by ity o f XL 50 mg 24 00:00: mouth in [place] hr tablet 00 the Medical morning. Branch lisinopriL- 2021-03 Yes [id number] 1{tbl} Take 1 [facility] hydrochloro 0-19 tablet by ity of thiazide 00:00: mouth in [place] 20-12.5 mg 00 the Medical per tablet morning. Bran h gabapentin 2021-03 Yes [id number] 300mg Take 1 [facility] 300 mg 0-19 capsule by ity of capsule 00:00: mouth 4 [place] [address] (four) Medical times [place] daily. atorvastati 2021-03 Yes [id number] 20mg Take 1 [facility] n 20 mg 0-19 tablet by ity of tablet 00:00: mouth in [place] 00 the Medical morning. Branch amLODIPine 2021-03 Yes [id number] 5mg Take 1 U nivers 5 mg tablet 0-19 tablet by ity of 00:00: mouth [place] 00 every Medical morning. Branch omeprazole 2021-03 Yes [id number] 40mg Take 1 [facility] 40 mg 0-19 capsule by ity of capsule 00:00: mouth in [place] 00 the Medical morning. Branch metoprolol 2021-03 Yes [id number] 50mg Take 1 U nivers succinate 0-19 tablet by ity o f XL 50 mg 24 00:00: mouth in [place] hr tablet 00 the Medical morning. Branch lisinopriL- 2021-03 Yes [id number] 1{tbl} Take 1 [facility] hydrochloro 0-19 tablet by ity of thiazide 00:00: mouth in [place] 20-12.5 mg 00 the Medical per tablet morning. [facility] h gabapentin 2021-03 Yes [id number] 300mg Take 1 [facility] 300 mg 0-19 capsule by ity of capsule 00:00: mouth 4 [place] [address] (four) Medical times [place] daily. atorvastati 2021-03 Yes [id number] 20mg Take 1 [facility] n 20 mg 0-19 tablet by ity of tablet 00:00: mouth in [place] 00 the Medical morning. Branch amLODIPine 2021-03 Yes [id number] 5mg Take 1 U nivers 5 mg tablet 0-19 tablet by ity of 00:00: mouth [place] 00 every Medical morning. Branch omeprazole 2021-03- No [id number] 40mg Take 1 [facility] 40 mg 0-19 10-21 capsule by ity of capsule 00:00: 00:00 mouth in [place] 00 :00 the Medical morning. Branch metoprolol 2021-03- No [id number] 50mg Take 1 [facility] succinate 0-19 10-21 tablet by ity of XL 50 mg 24 00:00: 00:00 mouth in [place] hr tablet 00 :00 the Medical morning. Branch lisinopriL- 2021-03- No [id number] 1{tbl} Take 1 [facility] hydrochloro 0-19 10-21 tablet by it y of thiazide 00:00: 00:00 [place] 20-12.5 mg 00 :00 the Medical per tablet morning. Branc h gabapentin 2021-03- No [id number] 300mg Take 1 [facility] 300 mg 0-19 10-21 capsule by ity of capsule 00:00: 00:00 mouth 4 [place] 00 :00 (four) Medical times Branch daily. atorvastati 2021-03- No [id number] 20mg Take 1 [facility] n 20 mg 0-19 10-21 tablet by ity of tablet 00:00: 00:00 mouth in [place] 00 :00 the Medical morning. Branch amLODIPine 2021-03- No [id number] 5mg Take 1 [facility] 5 mg tablet 0-19 10-21 tablet by it y of 00:00: 00:00 mouth [place] 00 :00 every Medical morning. Branch conjugated 2021-0 Yes [id number] 1g Insert 1 g [facility] estrogens 9-22 into ity of (PREMARIN) 00:00: vagina 2 [place] 0.625 00 (two) Medical mg/gram times per Branch vaginal week. cream conjugated 2021-0 Yes [id number] 1g Insert 1 g [facility] estrogens 9-22 into ity of (PREMARIN) 00:00: vagina 2 [place] 0.625 00 (two) Medical mg/gram times per Branch vaginal week. cream conjugated 2021-0 Yes [id number] 1g Insert 1 g [facility] estrogens 9-22 into ity of (PREMARIN) 00:00: vagina 2 [place] 0.625 00 (two) Medical mg/gram times per Branch vaginal week. cream conjugated 2021-0 Yes [id number] 1g Insert 1 g [facility] estrogens 9-22 into ity of (PREMARIN) 00:00: vagina 2 [place] 00 (two) Medical mg/gram times per Branch vaginal week. cream conjugated 2021-0 Yes [id number] 1g Insert 1 g [facility] estrogens 9-22 into ity of (PREMARIN) 00:00: vagina 2 [place] 00 (two) Medical mg/gram times per Branch vaginal week. cream conjugated 2021-0 Yes [id number] 1g Insert 1 g [facility] estrogens 9-22 into ity of (PREMARIN) 00:00: vagina 2 [place] 0.[place] 00 (two) Medical mg/gram times per Branch vaginal week. cream conjugated 2022-0 Yes [id number] 1g Insert 1 g [facility] estrogens 9-22 into ity of (PREMARIN) 00:00: vagina 2 [place] 00 (two) Medical mg/gram times per Branch vaginal week. cream conjugated 2022-0 Yes [id number] 1g Insert 1 g [facility] estrogens 9-22 into ity of (PREMARIN) 00:00: vagina 2 [place] 00 (two) Medical mg/gram times per Branch vaginal week. cream conjugated 2022-0 Yes [id number] 1g Insert 1 g [facility] estrogens 9-22 into ity of (PREMARIN) 00:00: vagina 2 [place] 0.625 00 (two) Medical mg/gram times per Branch vaginal week. cream conjugated 2022-0 Yes [id number] 1g Insert 1 g [facility] estrogens 9-22 into ity of (PREMARIN) 00:00: vagina 2 [place] 0.[place] 00 (two) Medical mg/gram times per Branch vaginal week. cream conjugated 2022-0 Yes [id number] 1g Insert 1 g [facility] estrogens 9-22 into ity of (PREMARIN) 00:00: vagina 2 [place] 0.[place] 00 (two) Medical mg/gram times per Branch vaginal week. cream conjugated 2022-0 Yes [id number] 1g Insert 1 g [facility] estrogens 9-22 into ity of (PREMARIN) 00:00: vagina 2 [place] 0.[place] 00 (two) Medical mg/gram times per Branch vaginal week. cream conjugated 2022-0 Yes [id number] 1g Insert 1 g [facility] estrogens 9-22 into ity of (PREMARIN) 00:00: vagina 2 [place] 0.[place] 00 (two) Medical mg/gram times per Branch vaginal week. cream conjugated 2022-0 Yes [id number] 1g Insert 1 g [facility] estrogens 9-22 into ity of (PREMARIN) 00:00: vagina 2 [place] 0.625 00 (two) Medical mg/gram times per Branch vaginal week. cream conjugated 2022-0 Yes [id number] 1g Insert 1 g [facility] estrogens 9-22 into ity of (PREMARIN) 00:00: vagina 2 [place] 0.625 00 (two) Medical mg/gram times per Branch vaginal week. cream conjugated 2022-0 Yes [id number] 1g Insert 1 g [facility] estrogens 9-22 into ity of (PREMARIN) 00:00: vagina 2 [place] 0.625 00 (two) Medical mg/gram times per Branch vaginal week. cream conjugated 2022-0 Yes [id number] 1g Insert 1 g [facility] estrogens 9-22 into ity of (PREMARIN) 00:00: vagina 2 [place] 0.625 00 (two) Medical mg/gram times per Branch vaginal week. cream conjugated 2022-0 Yes [id number] 1g Insert 1 g [facility] estrogens 9-22 into ity of (PREMARIN) 00:00: vagina 2 [place] 0.625 00 (two) Medical mg/gram times per Branch vaginal week. cream conjugated 2022-0 Yes [id number] 1g Insert 1 g [facility] estrogens 9-22 into ity of (PREMARIN) 00:00: vagina 2 [place] 0.625 00 (two) Medical mg/gram times per Branch vaginal week. cream conjugated 2022-0 Yes [id number] 1g Insert 1 g [facility] estrogens 9-22 into ity of (PREMARIN) 00:00: vagina 2 [place] 0.[place] 00 (two) Medical mg/gram times per Branch vaginal week. cream conjugated 2022-0 Yes [id number] 1g Insert 1 g [facility] estrogens 9-22 into ity of (PREMARIN) 00:00: vagina 2 [place] 0.625 00 (two) Medical mg/gram times per Branch vaginal week. cream conjugated 2022-0 Yes [id number] 1g Insert 1 g [facility] estrogens 9-22 into ity of (PREMARIN) 00:00: vagina 2 [place] 0.625 00 (two) Medical mg/gram times per Branch vaginal week. cream conjugated 2022-0 Yes [id number] 1g Insert 1 g [facility] estrogens 9-22 into ity of (PREMARIN) 00:00: vagina 2 [place] 0.625 00 (two) Medical mg/gram times per Branch vaginal week. cream conjugated 2022-0 Yes [id number] 1g Insert 1 g [facility] estrogens 9-22 into ity of (PREMARIN) 00:00: vagina 2 [place] 0.625 00 (two) Medical mg/gram times per Branch vaginal week. cream conjugated 2022-0 Yes [id number] 1g Insert 1 g [facility] estrogens 9-22 into ity of (PREMARIN) 00:00: vagina 2 [place] 0.625 00 (two) Medical mg/gram times per Branch vaginal week. cream conjugated 0 Yes [id number] 1g Insert 1 g [facility] estrogens 9-22 into ity of (PREMARIN) 00:00: vagina 2 [place] 0.[place] 00 (two) Medical mg/gram times per Branch vaginal week. cream conjugated 2021-0 Yes [id number] 1g Insert 1 g [facility] estrogens 9-22 into ity of (PREMARIN) 00:00: vagina 2 [place] 0.625 00 (two) Medical mg/gram times per Branch vaginal week. cream aspirin 81 Yes 81mg Take 81 mg U nivers mg chewable 9-20 by mouth ity of tablet 14:25: daily. [address] CALCIUM Yes Take by [facility] ORAL 9-20 mouth. ity of 14:25: [address] calcium Yes Take by [facility] carbonate/v 9-20 mouth. ity of itamin D3 14:25: [place] (VITAMIN 59 Medical D-3 ORAL) [place] melatonin Yes Take by Unive rs 10 mg Tab 9-20 mouth. ity of 14:25: [address] aspirin 81 Yes 81mg Take 81 mg U nivers mg chewable 9-20 by mouth ity of tablet 14:25: daily. [address] CALCIUM Yes Take by [facility] ORAL 9-20 mouth. ity of 14:25: [address] calcium Yes Take by [facility] carbonate/v 9-20 mouth. ity of itamin D3 14:25: [place] (VITAMIN 59 Medical D-3 ORAL) [place] melatonin Yes Take by Un[facility] rs 10 mg Tab 9-20 mouth. ity of 14:25: [address] aspirin 81 Yes 81mg Take 81 mg U nivers mg chewable 9-20 by mouth ity of tablet 14:25: daily. [address] CALCIUM Yes Take by [facility] ORAL 9-20 mouth. ity of 14:25: [address] calcium Yes Take by [facility] carbonate/v 9-20 mouth. ity of itamin D3 14:25: [place] (VITAMIN 59 Medical D-3 ORAL) Branch melatonin Yes Take by Unive rs 10 mg Tab 9-20 mouth. ity of 14:25: [place] [address] Medical Branch aspirin 81 Yes 81mg Take 81 mg U nivers mg chewable 9-20 by mouth ity of tablet 14:25: daily. [place] [address] Medical Branch CALCIUM Yes Take by [facility] ORAL 9-20 mouth. ity of 14:25: [place] [address] Medical Branch calcium Yes Take by [facility] carbonate/v 9-20 mouth. ity of itamin D3 14:25: [place] (VITAMIN 59 Medical D-3 ORAL) Branch melatonin Yes Take by Un[facility] rs 10 mg Tab 9-20 mouth. ity of 14:25: [place] [address] Medical Branch aspirin 81 Yes 81mg Take 81 mg U nivers mg chewable 9-20 by mouth ity of tablet 14:25: daily. [place] [address] Medical Branch CALCIUM Yes Take by [facility] ORAL 9-20 mouth. ity of 14:25: [place] [address] Medical Branch calcium Yes Take by [facility] carbonate/v 9-20 mouth. ity of itamin D3 14:25: [place] (VITAMIN 59 Medical D-3 ORAL) Branch melatonin Yes Take by Unive rs 10 mg Tab 9-20 mouth. ity of 14:25: [address] aspirin 81 Yes 81mg Take 81 mg U nivers mg chewable 9-20 by mouth ity of tablet 14:25: daily. [place] [address] Medical Branch CALCIUM Yes Take by [facility] ORAL 9-20 mouth. ity of 14:25: [place] [address] Medical Branch calcium Yes Take by [facility] carbonate/v 9-20 mouth. ity of itamin D3 14:25: [place] (VITAMIN 59 [facility] D-3 ORAL) Branch melatonin Yes Take by Un[facility] rs 10 mg Tab 9-20 mouth. ity of 14:25: [address] Branch aspirin 81 Yes 81mg Take 81 mg U nivers mg chewable 9-20 by mouth ity of tablet 14:25: daily. [place] [address] Medical Branch CALCIUM Yes Take by [facility] ORAL 9-20 mouth. ity of 14:25: [place] [address] Medical Branch calcium 2022-0 Yes Take by [facility] carbonate/v 9-20 mouth. ity of itamin D3 14:25: [place] (VITAMIN 59 Medical D-3 ORAL) Branch melatonin 0 Yes Take by [facility] rs 10 mg Tab 9-20 mouth. ity of 14:25: [place] [address] Medical Branch aspirin 81 0 Yes 81mg Take 81 mg U nivers mg chewable 9-20 by mouth ity of tablet 14:25: daily. [place] [address] Medical Branch CALCIUM 0 Yes Take by [facility] ORAL 9-20 mouth. ity of 14:25: [place] [address] Medical Branch calcium 0 Yes Take by [facility] carbonate/v 9-20 mouth. ity of itamin D3 14:25: [place] (VITAMIN 59 Medical D-3 ORAL) Branch melatonin Yes Take by [facility] rs 10 mg Tab 9-20 mouth. ity of 14:25: [address] Branch aspirin 81 Yes 81mg Take 81 mg U nivers mg chewable 9-20 by mouth ity of tablet 14:25: daily. [place] [address] Medical Branch CALCIUM Yes Take by [facility] ORAL 9-20 mouth. ity of 14:25: [place] [address] Medical Branch calcium Yes Take by [facility] carbonate/v 9-20 mouth. ity of itamin D3 14:25: [place] (VITAMIN 59 Medical D-3 ORAL) Branch melatonin Yes Take by [facility] rs 10 mg Tab 9-20 mouth. ity of 14:25: [address] Branch aspirin 81 0 Yes 81mg Take 81 mg U nivers mg chewable 9-20 by mouth ity of tablet 14:25: daily. [place] [address] Medical Branch CALCIUM 0 Yes Take by [facility] ORAL 9-20 mouth. ity of 14:25: [place] [address] Medical Branch calcium 0 Yes Take by [facility] carbonate/v 9-20 mouth. ity of itamin D3 14:25: [place] (VITAMIN 59 Medical D-3 ORAL) Branch melatonin 0 Yes Take by [facility] rs 10 mg Tab 9-20 mouth. ity of 14:25: [address] Branch aspirin 81 0 Yes 81mg Take 81 mg U nivers mg chewable 9-20 by mouth ity of tablet 14:25: daily. [place] [address] Medical Branch CALCIUM 0 Yes Take by [facility] ORAL 9-20 mouth. ity of 14:25: [place] [address] Medical Branch calcium Yes Take by [facility] carbonate/v 9-20 mouth. ity of itamin D3 14:25: [place] (VITAMIN 59 Medical D-3 ORAL) Branch melatonin Yes Take by [facility] rs 10 mg Tab 9-20 mouth. ity of 14:25: [place] [address] [facility] Branch aspirin 81 Yes 81mg Take 81 mg U nivers mg chewable 9-20 by mouth ity of tablet 14:25: daily. [place] [address] Medical Branch CALCIUM Yes Take by [facility] ORAL 9-20 mouth. ity of 14:25: [place] [address] Medical Branch calcium Yes Take by [facility] carbonate/v 9-20 mouth. ity of itamin D3 14:25: [place] (VITAMIN 59 Medical D-3 ORAL) Branch melatonin Yes Take by [facility] rs 10 mg Tab 9-20 mouth. ity of 14:25: [address] Branch aspirin 81 Yes 81mg Take 81 mg U nivers mg chewable 9-20 by mouth ity of tablet 14:25: daily. [place] [address] Medical Branch CALCIUM Yes Take by [facility] ORAL 9-20 mouth. ity of 14:25: [place] [address] Medical Branch calcium Yes Take by [facility] carbonate/v 9-20 mouth. ity of itamin D3 14:25: [place] (VITAMIN 59 Medical D-3 ORAL) Branch melatonin Yes Take by [facility] rs 10 mg Tab 9-20 mouth. ity of 14:25: [address] Branch aspirin 81 Yes 81mg Take 81 mg U nivers mg chewable 9-20 by mouth ity of tablet 14:25: daily. [place] [address] Medical Branch CALCIUM Yes Take by [facility] ORAL 9-20 mouth. ity of 14:25: [place] [address] Medical Branch calcium Yes Take by [facility] carbonate/v 9-20 mouth. ity of itamin D3 14:25: [place] (VITAMIN 59 Medical D-3 ORAL) Branch melatonin Yes Take by [facility] rs 10 mg Tab 9-20 mouth. ity of 14:25: [place] [address] [facility] Branch aspirin 81 Yes 81mg Take 81 mg U nivers mg chewable 9-20 by mouth ity of tablet 14:25: daily. [place] [address] [facility] Branch CALCIUM 0 Yes Take by [facility] ORAL 9-20 mouth. ity of 14:25: [place] [address] [facility] Branch calcium 0 Yes Take by [facility] carbonate/v 9-20 mouth. ity of itamin D3 14:25: [place] (VITAMIN 59 Medical D-3 ORAL) Branch melatonin 0 Yes Take by [facility] rs 10 mg Tab 9-20 mouth. ity of 14:25: [place] [address] Medical Branch aspirin 81 0 Yes 81mg Take 81 mg U nivers mg chewable 9-20 by mouth ity of tablet 14:25: daily. [place] [address] [facility] Branch CALCIUM Yes Take by [facility] ORAL 9-20 mouth. ity of 14:25: [place] [address] [facility] Branch calcium Yes Take by [facility] carbonate/v 9-20 mouth. ity of itamin D3 14:25: [place] (VITAMIN 59 Medical D-3 ORAL) Branch melatonin Yes Take by [facility] rs 10 mg Tab 9-20 mouth. ity of 14:25: [place] [address] [facility] Branch aspirin 81 0 Yes 81mg Take 81 mg U nivers mg chewable 9-20 by mouth ity of tablet 14:25: daily. [place] [address] [facility] Branch CALCIUM Yes Take by [facility] ORAL 9-20 mouth. ity of 14:25: [place] [address] [facility] Branch calcium 0 Yes Take by [facility] carbonate/v 9-20 mouth. ity of itamin D3 14:25: [place] (VITAMIN 59 Medical D-3 ORAL) Branch melatonin 0 Yes Take by [facility] rs 10 mg Tab 9-20 mouth. ity of 14:25: [place] [address] [facility] Branch aspirin 81 0 Yes 81mg Take 81 mg U nivers mg chewable 9-20 by mouth ity of tablet 14:25: daily. [place] [address] [facility] Branch CALCIUM 0 Yes Take by [facility] ORAL 9-20 mouth. ity of 14:25: [place] [address] [facility] Branch calcium 0 Yes Take by [facility] carbonate/v 9-20 mouth. ity of itamin D3 14:25: [place] (VITAMIN 59 Medical D-3 ORAL) Branch melatonin 0 Yes Take by [facility] rs 10 mg Tab 9-20 mouth. ity of 14:25: [place] [address] [facility] Branch aspirin 81 Yes 81mg Take 81 mg U nivers mg chewable 9-20 by mouth ity of tablet 14:25: daily. [place] [address] [facility] Branch CALCIUM 0 Yes Take by [facility] ORAL 9-20 mouth. ity of 14:25: [place] [address] [facility] Branch calcium 0 Yes Take by [facility] carbonate/v 9-20 mouth. ity of itamin D3 14:25: [place] (VITAMIN 59 Medical D-3 ORAL) Branch melatonin Yes Take by [facility] rs 10 mg Tab 9-20 mouth. ity of 14:25: [place] [address] [facility] Branch aspirin 81 Yes 81mg Take 81 mg U nivers mg chewable 9-20 by mouth ity of tablet 14:25: daily. [place] [address] [facility] Branch CALCIUM Yes Take by [facility] ORAL 9-20 mouth. ity of 14:25: [place] [address] [facility] Branch calcium Yes Take by [facility] carbonate/v 9-20 mouth. ity of itamin D3 14:25: [place] (VITAMIN 59 Medical D-3 ORAL) Branch melatonin Yes Take by [facility] rs 10 mg Tab 9-20 mouth. ity of 14:25: [place] [address] [facility] Branch aspirin 81 Yes 81mg Take 81 mg U nivers mg chewable 9-20 by mouth ity of tablet 14:25: daily. [place] [address] [facility] Branch CALCIUM Yes Take by [facility] ORAL 9-20 mouth. ity of 14:25: [place] [address] [facility] Branch calcium Yes Take by [facility] carbonate/v 9-20 mouth. ity of itamin D3 14:25: [place] (VITAMIN 59 Medical D-3 ORAL) Branch melatonin Yes Take by [facility] rs 10 mg Tab 9-20 mouth. ity of 14:25: [place] [address] [facility] Branch aspirin 81 Yes 81mg Take 81 mg U nivers mg chewable 9-20 by mouth ity of tablet 14:25: daily. [place] [address] [facility] Branch CALCIUM 0 Yes Take by [facility] ORAL 9-20 mouth. ity of 14:25: [place] [address] [facility] Branch calcium 0 Yes Take by [facility] carbonate/v 9-20 mouth. ity of itamin D3 14:25: [place] (VITAMIN 59 Medical D-3 ORAL) Branch melatonin Yes Take by [facility] rs 10 mg Tab 9-20 mouth. ity of 14:25: [place] [address] [facility] Branch aspirin 81 Yes 81mg Take 81 mg U nivers mg chewable 9-20 by mouth ity of tablet 14:25: daily. [place] [address] [facility] Branch CALCIUM 0 Yes Take by [facility] ORAL 9-20 mouth. ity of 14:25: [place] [address] [facility] Branch calcium Yes Take by [facility] carbonate/v 9-20 mouth. ity of itamin D3 14:25: [place] (VITAMIN 59 Medical D-3 ORAL) Branch melatonin Yes Take by [facility] rs 10 mg Tab 9-20 mouth. ity of 14:25: [place] [address] [facility] Branch aspirin 81 Yes 81mg Take 81 mg U nivers mg chewable 9-20 by mouth ity of tablet 14:25: daily. [place] [address] [facility] Branch CALCIUM Yes Take by [facility] ORAL 9-20 mouth. ity of 14:25: [place] [address] [facility] Branch calcium Yes Take by [facility] carbonate/v 9-20 mouth. ity of itamin D3 14:25: [place] (VITAMIN 59 Medical D-3 ORAL) Branch melatonin Yes Take by [facility] rs 10 mg Tab 9-20 mouth. ity of 14:25: [place] [address] [facility] Branch aspirin 81 Yes 81mg Take 81 mg U nivers mg chewable 9-20 by mouth ity of tablet 14:25: daily. [place] [address] [facility] Branch CALCIUM Yes Take by [facility] ORAL 9-20 mouth. ity of 14:25: [place] [address] [facility] Branch calcium Yes Take by [facility] carbonate/v 9-20 mouth. ity of itamin D3 14:25: [place] (VITAMIN 59 Medical D-3 ORAL) Branch melatonin Yes Take by [facility] rs 10 mg Tab 9-20 mouth. ity of 14:25: [place] [address] [facility] Branch aspirin 81 0 Yes 81mg Take 81 mg U nivers mg chewable 9-20 by mouth ity of tablet 14:25: daily. [place] [address] [facility] Branch CALCIUM 0 Yes Take by [facility] ORAL 9-20 mouth. ity of 14:25: [place] [address] [facility] Branch calcium 0 Yes Take by [facility] carbonate/v 9-20 mouth. ity of itamin D3 14:25: [place] (VITAMIN 59 Medical D-3 ORAL) Branch melatonin Yes Take by [facility] rs 10 mg Tab 9-20 mouth. ity of 14:25: [place] [address] [facility] Branch aspirin 81 Yes 81mg Take 81 mg U nivers mg chewable 9-20 by mouth ity of tablet 14:25: daily. [place] [address] [facility] Branch CALCIUM Yes Take by [facility] ORAL 9-20 mouth. ity of 14:25: [place] [address] [facility] Branch calcium Yes Take by [facility] carbonate/v 9-20 mouth. ity of itamin D3 14:25: [place] (VITAMIN 59 Medical D-3 ORAL) Branch melatonin Yes Take by [facility] rs 10 mg Tab 9-20 mouth. ity of 14:25: [address] Branch Diflupredna Yes INSTILL Uni vers te 0.05 % 8-31 ONE (1) ity of 00:00: DROP(S) IN [place] [address] EACH EYE Medical EVERY 2 Branch HOURS FOR 3 DAYS, THEN INSTILL ONE (1) DROP FOUR TIMES A DAY. Diflupredna Yes INSTILL [facility] vers te 0.05 % 8-31 ONE (1) ity of 00:00: DROP(S) IN [place] [address] EACH EYE Medical EVERY 2 Branch HOURS FOR 3 DAYS, THEN INSTILL ONE (1) DROP FOUR TIMES A DAY. Diflupredna Yes INSTILL [facility] vers te 0.05 % 8-31 ONE (1) ity of 00:00: DROP(S) IN [place] [address] EACH EYE Medical EVERY 2 Branch HOURS FOR 3 DAYS, THEN INSTILL ONE (1) DROP FOUR TIMES A DAY. Diflupredna Yes INSTILL [facility] vers te 0.05 % 8-31 ONE (1) ity of 00:00: DROP(S) IN [place] 00 EACH EYE Medical EVERY 2 Branch HOURS FOR 3 DAYS, THEN INSTILL ONE (1) DROP FOUR TIMES A DAY. Diflupredna 0 Yes INSTILL [facility] vers te 0.05 % 8-31 ONE (1) ity of 00:00: DROP(S) IN [place] EACH EYE Medical EVERY 2 Branch HOURS FOR 3 DAYS, THEN INSTILL ONE (1) DROP FOUR TIMES A DAY. Diflupredna 2022-0 Yes INSTILL [facility] vers te 0.05 % 8-31 ONE (1) ity of 00:00: DROP(S) IN [place] 00 EACH EYE Medical EVERY 2 Branch HOURS FOR 3 DAYS, THEN INSTILL ONE (1) DROP FOUR TIMES A DAY. Diflupredna Yes INSTILL [facility] vers te 0.05 % 8-31 ONE (1) ity of 00:00: DROP(S) IN [place] 00 EACH EYE Medical EVERY 2 Branch HOURS FOR 3 DAYS, THEN INSTILL ONE (1) DROP FOUR TIMES A DAY. Diflupredna Yes INSTILL Uni vers te 0.05 % 8-31 ONE (1) ity of 00:00: DROP(S) IN [place] [address] EACH EYE Medical EVERY 2 Branch HOURS FOR 3 DAYS, THEN INSTILL ONE (1) DROP FOUR TIMES A DAY. Diflupredna Yes INSTILL Uni vers te 0.05 % 8-31 ONE (1) ity of 00:00: DROP(S) IN [place] [address] EACH EYE Medical EVERY 2 Branch HOURS FOR 3 DAYS, THEN INSTILL ONE (1) DROP FOUR TIMES A DAY. Diflupredna Yes INSTILL Uni vers te 0.05 % 8-31 ONE (1) ity of 00:00: DROP(S) IN [place] [address] EACH EYE Medical EVERY 2 Branch HOURS FOR 3 DAYS, THEN INSTILL ONE (1) DROP FOUR TIMES A DAY. Diflupredna Yes INSTILL [facility] vers te 0.05 % 8-31 ONE (1) ity of 00:00: DROP(S) IN [place] [address] EACH EYE Medical EVERY 2 Branch HOURS FOR 3 DAYS, THEN INSTILL ONE (1) DROP FOUR TIMES A DAY. Diflupredna Yes INSTILL Uni vers te 0.05 % 8-31 ONE (1) ity of 00:00: DROP(S) IN [place] [address] EACH EYE Medical EVERY 2 Branch HOURS FOR 3 DAYS, THEN INSTILL ONE (1) DROP FOUR TIMES A DAY. Diflupredna Yes INSTILL Uni vers te 0.05 % 8-31 ONE (1) ity of 00:00: DROP(S) IN [place] [address] EACH EYE Medical EVERY 2 Branch HOURS FOR 3 DAYS, THEN INSTILL ONE (1) DROP FOUR TIMES A DAY. Diflupredna Yes INSTILL Uni vers te 0.05 % 8-31 ONE (1) ity of 00:00: DROP(S) IN [place] 00 EACH EYE Medical EVERY 2 Branch HOURS FOR 3 DAYS, THEN INSTILL ONE (1) DROP FOUR TIMES A DAY. Diflupredna Yes INSTILL Uni vers te 0.05 % 8-31 ONE (1) ity of 00:00: DROP(S) IN [place] [address] EACH EYE Medical EVERY 2 Branch HOURS FOR 3 DAYS, THEN INSTILL ONE (1) DROP FOUR TIMES A DAY. Diflupredna Yes INSTILL [facility] vers te 0.05 % 8-31 ONE (1) ity of 00:00: DROP(S) IN [place] [address] EACH EYE Medical EVERY 2 Branch HOURS FOR 3 DAYS, THEN INSTILL ONE (1) DROP FOUR TIMES A DAY. Diflupredna Yes INSTILL [facility] vers te 0.05 % 8-31 ONE (1) ity of 00:00: DROP(S) IN [place] [address] EACH EYE Medical EVERY 2 Branch HOURS FOR 3 DAYS, THEN INSTILL ONE (1) DROP FOUR TIMES A DAY. Diflupredna Yes INSTILL [facility] vers te 0.05 % 8-31 ONE (1) ity of 00:00: DROP(S) IN [place] [address] EACH EYE Medical EVERY 2 Branch HOURS FOR 3 DAYS, THEN INSTILL ONE (1) DROP FOUR TIMES A DAY. Diflupredna Yes INSTILL [facility] vers te 0.05 % 8-31 ONE (1) ity of 00:00: DROP(S) IN [place] [address] EACH EYE Medical EVERY 2 Branch HOURS FOR 3 DAYS, THEN INSTILL ONE (1) DROP FOUR TIMES A DAY. Diflupredna Yes INSTILL [facility] vers te 0.05 % 8-31 ONE (1) ity of 00:00: DROP(S) IN [place] [address] EACH EYE Medical EVERY 2 Branch HOURS FOR 3 DAYS, THEN INSTILL ONE (1) DROP FOUR TIMES A DAY. Diflupredna Yes INSTILL [facility] vers te 0.05 % 8-31 ONE (1) ity of 00:00: DROP(S) IN [place] [address] EACH EYE Medical EVERY 2 Branch HOURS FOR 3 DAYS, THEN INSTILL ONE (1) DROP FOUR TIMES A DAY. Diflupredna Yes INSTILL [facility] vers te 0.05 % 8-31 ONE (1) ity of 00:00: DROP(S) IN [place] EACH EYE Medical EVERY 2 Branch HOURS FOR 3 DAYS, THEN INSTILL ONE (1) DROP FOUR TIMES A DAY. Diflupredna Yes INSTILL [facility] vers te 0.05 % 8-31 ONE (1) ity of 00:00: DROP(S) IN [place] [address] EACH EYE Medical EVERY 2 Branch HOURS FOR 3 DAYS, THEN INSTILL ONE (1) DROP FOUR TIMES A DAY. Diflupredna Yes INSTILL [facility] vers te 0.05 % 8-31 ONE (1) ity of 00:00: DROP(S) IN [place] [address] EACH EYE Medical EVERY 2 Branch HOURS FOR 3 DAYS, THEN INSTILL ONE (1) DROP FOUR TIMES A DAY. Diflupredna Yes INSTILL [facility] vers te 0.05 % 8-31 ONE (1) ity of 00:00: DROP(S) IN [place] [address] EACH EYE Medical EVERY 2 Branch HOURS FOR 3 DAYS, THEN INSTILL ONE (1) DROP FOUR TIMES A DAY. Diflupredna Yes INSTILL [facility] vers te 0.05 % 8-31 ONE (1) ity of 00:00: DROP(S) IN [place] [address] EACH EYE Medical EVERY 2 Branch HOURS FOR 3 DAYS, THEN INSTILL ONE (1) DROP FOUR TIMES A DAY. Diflupredna Yes INSTILL [facility] vers te 0.05 % 8-31 ONE (1) ity of 00:00: DROP(S) IN [place] [address] EACH EYE Medical EVERY 2 Branch HOURS FOR 3 DAYS, THEN INSTILL ONE (1) DROP FOUR TIMES A DAY. Diflupredna Yes INSTILL [facility] vers te 0.05 % 8-31 ONE (1) ity of 00:00: DROP(S) IN [place] [address] EACH EYE Medical EVERY 2 Branch HOURS FOR 3 DAYS, THEN INSTILL ONE (1) DROP FOUR TIMES A DAY. Diflupredna Yes INSTILL [facility] vers te 0.05 % 8-31 ONE (1) ity of 00:00: DROP(S) IN [place] EACH EYE Medical EVERY 2 Branch HOURS FOR 3 DAYS, THEN INSTILL ONE (1) DROP FOUR TIMES A DAY. LISINOPRIL- Yes [id number] 1{tbl} TAKE 1 [facility] HYDROCHLORO 3-23 TABLET BY ity of THIAZIDE 00:00: MOUTH [place] 20-12.5 mg 00 DAILY Medical per tablet Branch AMLODIPINE 2021-0 Yes [id number] TAKE 1 U nivers 5 mg tablet 3-23 TABLET BY ity of 00:00: MOUTH IN [place] THE Medical MORNING Branch GABAPENTIN 2021-0 Yes [id number] TAKE 1 [facility] 300 mg 3-23 CAPSULE BY ity of capsule 00:00: MOUTH 4 [place] TIMES Medical DAILY Branch ATORVASTATI 0 Yes [id number] 20mg TAKE 1 [facility] N 20 mg 3-23 TABLET BY ity of tablet 00:00: MOUTH [place] DAILY Medical Branch LISINOPRIL- Yes [id number] 1{tbl} TAKE 1 [facility] HYDROCHLORO 3-23 TABLET BY ity of THIAZIDE 00:00: MOUTH [place] 20-12.5 mg 00 DAILY Medical per tablet Branch AMLODIPINE 2021-0 Yes [id number] TAKE 1 U nivers 5 mg tablet 3-23 TABLET BY ity of 00:00: MOUTH IN [place] THE Medical MORNING Branch GABAPENTIN 2021-0 Yes [id number] TAKE 1 [facility] 300 mg 3-23 CAPSULE BY ity of capsule 00:00: MOUTH 4 [place] Medical DAILY Branch ATORVASTATI 2021-0 Yes [id number] 20mg TAKE 1 [facility] N 20 mg 3-23 TABLET BY ity of tablet 00:00: MOUTH [place] DAILY Medical Branch LISINOPRIL- 2021-0 Yes [id number] 1{tbl} TAKE 1 [facility] HYDROCHLORO 3-23 TABLET BY ity of THIAZIDE 00:00: MOUTH [place] 20-12.5 mg 00 DAILY Medical per tablet Branch AMLODIPINE 2021-0 Yes [id number] TAKE 1 U nivers 5 mg tablet 3-23 TABLET BY ity of 00:00: MOUTH IN [place] THE Medical MORNING Branch GABAPENTIN 2021-0 Yes [id number] TAKE 1 [facility] 300 mg 3-23 CAPSULE BY ity of capsule 00:00: MOUTH 4 [place] TIMES Medical DAILY Branch ATORVASTATI 2021-0 Yes [id number] 20mg TAKE 1 [facility] N 20 mg 3-23 TABLET BY ity of tablet 00:00: MOUTH DAILY Medical Branch LISINOPRIL- 2021-0 Yes [id number] 1{tbl} TAKE 1 [facility] HYDROCHLORO 3-23 TABLET BY ity of THIAZIDE 00:00: MOUTH [place] 20-12.5 mg 00 DAILY Medical per tablet Branch AMLODIPINE 2021-0 Yes [id number] TAKE 1 U nivers 5 mg tablet 3-23 TABLET BY ity of 00:00: MOUTH IN [place] THE Medical MORNING Branch GABAPENTIN 2021-0 Yes [id number] TAKE 1 [facility] 300 mg 3-23 CAPSULE BY ity of capsule 00:00: MOUTH 4 [place] TIMES Medical DAILY Branch ATORVASTATI 0 Yes [id number] 20mg TAKE 1 [facility] N 20 mg 3-23 TABLET BY ity of tablet 00:00: MOUTH [place] DAILY Medical Branch LISINOPRIL- Yes [id number] 1{tbl} TAKE 1 [facility] HYDROCHLORO 3-23 TABLET BY ity of THIAZIDE 00:00: MOUTH [place] 20-12.5 mg 00 DAILY Medical per tablet Branch AMLODIPINE 2021-0 Yes [id number] TAKE 1 [facility] nivers 5 mg tablet 3-23 TABLET BY ity of 00:00: MOUTH IN [place] THE Medical MORNING Branch GABAPENTIN 2021-0 Yes [id number] TAKE 1 [facility] 300 mg 3-23 CAPSULE BY ity of capsule 00:00: MOUTH 4 [place] Medical DAILY Branch ATORVASTATI 0 Yes [id number] 20mg TAKE 1 [facility] N 20 mg 3-23 TABLET BY ity of tablet 00:00: MOUTH [place] DAILY Medical Branch LISINOPRIL- 2021-0 Yes [id number] 1{tbl} TAKE 1 [facility] HYDROCHLORO 3-23 TABLET BY ity of THIAZIDE 00:00: MOUTH [place] 20-12.5 mg 00 DAILY Medical per tablet Branch AMLODIPINE 2021-0 Yes [id number] TAKE 1 [facility] nivers 5 mg tablet 3-23 TABLET BY ity of 00:00: MOUTH IN [place] THE Medical MORNING Branch GABAPENTIN 2021-0 Yes [id number] TAKE 1 [facility] 300 mg 3-23 CAPSULE BY ity of capsule 00:00: MOUTH 4 [place] TIMES Medical DAILY Branch ATORVASTATI 2021-0 Yes [id number] 20mg TAKE 1 [facility] N 20 mg 3-23 TABLET BY ity of tablet 00:00: MOUTH [place] DAILY Medical Branch LISINOPRIL- Yes [id number] 1{tbl} TAKE 1 [facility] HYDROCHLORO 3-23 TABLET BY ity of THIAZIDE 00:00: MOUTH [place] 20-12.5 mg 00 DAILY Medical per tablet Branch AMLODIPINE Yes [id number] TAKE 1 [facility] nivers 5 mg tablet 3-23 TABLET BY ity of 00:00: MOUTH IN [place] 00 THE Medical MORNING Branch GABAPENTIN Yes [id number] TAKE 1 [facility] 300 mg 3-23 CAPSULE BY ity of capsule 00:00: MOUTH 4 [place] 00 TIMES Medical DAILY Branch ATORVASTATI Yes [id number] 20mg TAKE 1 [facility] N 20 mg 3-23 TABLET BY ity of tablet 00:00: MOUTH [place] 00 DAILY Medical Branch LISINOPRIL- 2021- No [id number] 1{tbl} TAKE 1 [facility] HYDROCHLORO 3-23 10-19 TABLET BY it y of THIAZIDE 00:00: 00:00 MOUTH [place] 20-12.5 mg 00 :00 DAILY Medical per tablet Branch AMLODIPINE 2021- No [id number] TAKE 1 [facility] 5 mg tablet 3-23 10-19 TABLET BY it y of 00:00: 00:00 MOUTH IN [place] 00 :00 THE Medical MORNING Branch GABAPENTIN 2021-0 2021- No [id number] TAKE 1 [facility] 300 mg 3-23 10-19 CAPSULE BY ity of capsule 00:00: 00:00 MOUTH 4 [place] 00 :00 TIMES Medical DAILY Branch ATORVASTATI 2021- No [id number] 20mg TAKE 1 [facility] N 20 mg 3-23 10-19 TABLET BY ity of tablet 00:00: 00:00 MOUTH [place] 00 :00 DAILY Medical Branch LISINOPRIL- 0 2021- No [id number] 1{tbl} TAKE 1 [facility] HYDROCHLORO 3-23 10-19 TABLET BY it y of THIAZIDE 00:00: 00:00 MOUTH [place] 20-12.5 mg 00 :00 DAILY Medical per tablet Branch AMLODIPINE 2021- No [id number] TAKE 1 [facility] 5 mg tablet 3-23 10-19 TABLET BY it y of 00:00: 00:00 MOUTH IN [place] 00 :00 THE Medical MORNING Branch GABAPENTIN 2021-0 2021- No [id number] TAKE 1 [facility] 300 mg 3-23 10-19 CAPSULE BY ity of capsule 00:00: 00:00 MOUTH 4 [place] 00 :00 TIMES Medical DAILY Branch ATORVASTATI 2021- No [id number] 20mg TAKE 1 [facility] N 20 mg 3-23 10-19 TABLET BY ity of tablet 00:00: 00:00 MOUTH [place] 00 :00 DAILY Medical Branch oseltamivir 2021- No [id number] 75mg Take 1 [facility] (TAMIFLU) -14 05- capsule by ity of 75 mg 00:00: 05:59 mouth 2 [place] capsule 00 :00 (two) Medical times Branch daily for 5 days. oseltamivir 2021- No [id number] 75mg Take 1 [facility] (TAMIFLU) -14 05- capsule by ity of 75 mg 00:00: 05:59 mouth 2 [place] capsule 00 :00 (two) Medical times Branch daily for 5 days. omeprazole 2020-03- No Univer s 40 mg 2-05-14 ity of capsule 00:00: 00:00 [place] 00 :00 Medical Branch omeprazole 2020-03- No Univer s 40 mg 2-05 26-18 ity of capsule 00:00: 00:00 [place] 00 :00 Medical Branch omeprazole 2020-03 Yes [id number] 40mg Take 1 [facility] 40 mg 1-03 capsule by ity of capsule 00:00: mouth [place] 00 daily. Medical Branch metoprolol 2020-03 Yes [id number] 50mg Take 1 U nivers succinate 1-03 tablet by ity o f XL 50 mg 24 00:00: mouth [place] hr tablet 00 daily. Medical Branch lisinopriL- 2020-03 Yes [id number] 1{tbl} Take 1 [facility] hydrochloro 1-03 tablet by ity of thiazide 00:00: mouth [place] 20-12.5 mg 00 daily. Medical per tablet Branch gabapentin 2020-03 Yes [id number] TAKE 1 [facility] 300 mg 1-03 CAPSULE BY ity of capsule 00:00: MOUTH 4 [place] 00 TIMES Medical DAILY Branch atorvastati 2020-03 Yes [id number] 20mg Take 1 [facility] n 20 mg 1-03 tablet by ity of tablet 00:00: mouth [place] 00 daily. Medical Branch amLODIPine 2020-03 Yes [id number] 5mg Take 1 [facility] nivers 5 mg tablet 1-03 tablet by ity of 00:00: mouth [place] 00 every Medical morning. Branch cetirizine 2020-03 Yes [id number] 5mg Take 1 [facility] 5 mg tablet 1-03 tablet by ity of 00:00: mouth [place] 00 daily. Medical Branch omeprazole 2020-03 Yes [id number] 40mg Take 1 [facility] 40 mg 1-03 capsule by ity of capsule 00:00: mouth [place] 00 daily. Medical Branch metoprolol 2020-03 Yes [id number] 50mg Take 1 U nivers succinate 1-03 tablet by ity o f XL 50 mg 24 00:00: mouth [place] hr tablet 00 daily. Medical Branch lisinopriL- 2020-03 Yes [id number] 1{tbl} Take 1 [facility] hydrochloro 1-03 tablet by ity of thiazide 00:00: mouth [place] 20-12.5 mg 00 daily. Medical per tablet Branch gabapentin 2020-03 Yes [id number] TAKE 1 [facility] 300 mg 1-03 CAPSULE BY ity of capsule 00:00: MOUTH 4 [place] 00 TIMES Medical DAILY Branch atorvastati 2020-03 Yes [id number] 20mg Take 1 [facility] n 20 mg 1-03 tablet by ity of tablet 00:00: mouth [place] 00 daily. Medical Branch amLODIPine 2020-03 Yes [id number] 5mg Take 1 [facility] nivers 5 mg tablet 1-03 tablet by ity of 00:00: mouth [place] 00 every Medical morning. Branch cetirizine 2020-03 Yes [id number] 5mg Take 1 [facility] 5 mg tablet 1-03 tablet by ity of 00:00: mouth [place] 00 daily. Medical Branch omeprazole 2020-03 Yes [id number] 40mg Take 1 [facility] 40 mg 1-03 capsule by ity of capsule 00:00: mouth [place] 00 daily. Medical Branch metoprolol 2020-03 Yes [id number] 50mg Take 1 U nivers succinate 1-03 tablet by ity o f XL 50 mg 24 00:00: mouth [place] hr tablet 00 daily. Medical Branch lisinopriL- 2020-03 Yes [id number] 1{tbl} Take 1 [facility] hydrochloro 1-03 tablet by ity of thiazide 00:00: mouth [place] 20-12.5 mg 00 daily. Medical per tablet Branch gabapentin 2020-03 Yes [id number] TAKE 1 [facility] 300 mg 1-03 CAPSULE BY ity of capsule 00:00: MOUTH 4 [place] 00 TIMES Medical DAILY Branch atorvastati 2020-03 Yes [id number] 20mg Take 1 [facility] n 20 mg 1-03 tablet by ity of tablet 00:00: mouth [place] 00 daily. Medical Branch amLODIPine 2020-03 Yes [id number] 5mg Take 1 [facility] nivers 5 mg tablet 1-03 tablet by ity of 00:00: mouth [place] 00 every Medical morning. Branch cetirizine 2020-03 Yes [id number] 5mg Take 1 [facility] 5 mg tablet 1-03 tablet by ity of 00:00: mouth [place] 00 daily. Medical Branch omeprazole 2020-03 Yes [id number] 40mg Take 1 [facility] 40 mg 1-03 capsule by ity of capsule 00:00: mouth [place] 00 daily. Medical Branch metoprolol 2020-03 Yes [id number] 50mg Take 1 U nivers succinate 1-03 tablet by ity o f XL 50 mg 24 00:00: mouth [place] hr tablet 00 daily. Medical Branch cetirizine 2020-03 Yes [id number] 5mg Take 1 [facility] 5 mg tablet 1-03 tablet by ity of 00:00: mouth [place] 00 daily. [facility] omeprazole 2020-03 Yes [id number] 40mg Take 1 [facility] 40 mg 1-03 capsule by ity of capsule 00:00: mouth [place] 00 daily. [facility] metoprolol 2020-03 Yes [id number] 50mg Take 1 [facility] succinate 1-03 tablet by ity o f XL 50 mg 24 00:00: mouth [place] hr tablet 00 daily. [facility] cetirizine 2020-03 Yes [id number] 5mg Take 1 [facility] 5 mg tablet 1-03 tablet by ity of 00:00: mouth [place] 00 daily. [facility] omeprazole 2020-03 Yes [id number] 40mg Take 1 [facility] 40 mg 1-03 capsule by ity of capsule 00:00: mouth [place] 00 daily. [facility] metoprolol 2020-03 Yes [id number] 50mg Take 1 [facility] succinate 1-03 tablet by ity o f XL 50 mg 24 00:00: mouth [place] hr tablet 00 daily. [facility] cetirizine 2020-03 Yes [id number] 5mg Take 1 [facility] 5 mg tablet 1-03 tablet by ity of 00:00: mouth [place] 00 daily. [facility] omeprazole 2020-03 Yes [id number] 40mg Take 1 [facility] 40 mg 1-03 capsule by ity of capsule 00:00: mouth [place] 00 daily. [facility] metoprolol 2020-03 Yes [id number] 50mg Take 1 [facility] nivers succinate 1-03 tablet by ity o f XL 50 mg 24 00:00: mouth [place] hr tablet 00 daily. [facility] cetirizine 2020-03 Yes [id number] 5mg Take 1 [facility] 5 mg tablet 1-03 tablet by ity of 00:00: mouth [place] 00 daily. [facility] omeprazole 2020-03 Yes [id number] 40mg Take 1 [facility] 40 mg 1-03 capsule by ity of capsule 00:00: mouth [place] 00 daily. [facility] metoprolol 2020-03 Yes [id number] 50mg Take 1 [facility] nivers succinate 1-03 tablet by ity o f XL 50 mg 24 00:00: mouth [place] hr tablet 00 daily. [facility] cetirizine 2020-03 Yes [id number] 5mg Take 1 [facility] 5 mg tablet 1-03 tablet by ity of 00:00: mouth [place] 00 daily. [facility] omeprazole 2020-03 Yes [id number] 40mg Take 1 [facility] 40 mg 1-03 capsule by ity of capsule 00:00: mouth [place] 00 daily. [facility] metoprolol 2020-03 Yes [id number] 50mg Take 1 [facility] nivers succinate 1-03 tablet by ity o f XL 50 mg 24 00:00: mouth [place] hr tablet 00 daily. [facility] cetirizine 2020-03 Yes [id number] 5mg Take 1 [facility] 5 mg tablet 1-03 tablet by ity of 00:00: mouth [place] 00 daily. [facility] omeprazole 2020-03 Yes [id number] 40mg Take 1 [facility] 40 mg 1-03 capsule by ity of capsule 00:00: mouth [place] 00 daily. [facility] metoprolol 2020-03 Yes [id number] 50mg Take 1 [facility] nivers succinate 1-03 tablet by ity o f XL 50 mg 24 00:00: mouth [place] hr tablet 00 daily. [facility] cetirizine 2020-03 Yes [id number] 5mg Take 1 [facility] 5 mg tablet 1-03 tablet by ity of 00:00: mouth [place] 00 daily. [facility] cetirizine 2020-03 Yes [id number] 5mg Take 1 [facility] 5 mg tablet 1-03 tablet by ity of 00:00: mouth [place] 00 daily. [facility] cetirizine 2020-03 Yes [id number] 5mg Take 1 [facility] 5 mg tablet 1-03 tablet by ity of 00:00: mouth [place] 00 daily. [facility] cetirizine 2020-03 Yes [id number] 5mg Take 1 [facility] 5 mg tablet 1-03 tablet by ity of 00:00: mouth [place] 00 daily. [facility] cetirizine 2020-03 Yes [id number] 5mg Take 1 [facility] 5 mg tablet 1-03 tablet by ity of 00:00: mouth [place] 00 daily. [facility] cetirizine 2020-03 Yes [id number] 5mg Take 1 [facility] 5 mg tablet 1-03 tablet by ity of 00:00: mouth [place] 00 daily. [facility] cetirizine 2020-03 Yes [id number] 5mg Take 1 [facility] 5 mg tablet 1-03 tablet by ity of 00:00: mouth [place] 00 daily. [facility] cetirizine 2020-03- No [id number] 5mg Take 1 [facility] 5 mg tablet 1-03 11-09 tablet by it y of 00:00: 00:00 mouth [place] 00 :00 daily. [facility] omeprazole 2020-03- No [id number] 40mg Take 1 [facility] 40 mg 1-03 10-19 capsule by ity of capsule 00:00: 00:00 mouth [place] 00 :00 daily. [facility] metoprolol 2020-03- No [id number] 50mg Take 1 [facility] succinate 1-03 10-19 tablet by ity of XL 50 mg 24 00:00: 00:00 [place] tablet 00 :00 daily. [facility] omeprazole 2020-03- No [id number] 40mg Take 1 [facility] 40 mg 1-03 10-19 capsule by ity of capsule 00:00: 00:00 mouth [place] 00 :00 daily. [facility] metoprolol 2020-03- No [id number] 50mg Take 1 [facility] succinate 1-03 10-19 tablet by ity of XL 50 mg 24 00:00: 00:00 [place] hr tablet 00 :00 daily. [facility] lisinopriL- 2020-03- No [id number] 1{tbl} Take 1 [facility] hydrochloro 03-29 tablet by it y of thiazide 00:00: 00:00 mouth [place] 20-12.5 mg 00 :00 daily. Medical per tablet Branch gabapentin 2020-03- No [id number] TAKE 1 [facility] 300 mg 03-29 CAPSULE BY ity of capsule 00:00: 00:00 MOUTH 4 [place] 00 :00 TIMES Medical DAILY Branch atorvastati 2020-03- No [id number] 20mg Take 1 [facility] n 20 mg 03-29 tablet by ity of tablet 00:00: 00:00 mouth [place] 00 :00 daily. Medical [facility] amLODIPine 2020-03- No [id number] 5mg Take 1 [facility] 5 mg tablet 03-29 tablet by it y of 00:00: 00:00 mouth [place] 00 :00 every Medical morning. Branch aspirin 81 2020-03 Yes 81mg Take 81 mg [facility] mg chewable 0-22 by mouth ity of tablet 19:20: daily. [place] [address] Medical Branch CALCIUM 2020-03 Yes Take by [facility] ORAL 0-22 mouth. ity of 19:20: [place] [address] Medical Branch calcium 2020-03 Yes Take by [facility] carbonate/v 0-22 mouth. ity of itamin D3 19:20: [place] (VITAMIN 43 Medical D-3 ORAL) Branch traMADoL 50 2020-03 Yes 50mg Take 50 mg [facility] mg tablet 0-22 by mouth ity of 19:20: every 6 [place] [address] (six) Medical hours as Branch needed. melatonin 2020-03 Yes Take by [facility] rs 10 mg Tab 0-22 mouth. ity of 19:20: [place] [address] Medical Branch aspirin 81 2020-03 Yes 81mg Take 81 mg [facility] nivers mg chewable 0-22 by mouth ity of tablet 19:20: daily. [place] [address] Medical Branch CALCIUM 2020-03 Yes Take by [facility] ORAL 0-22 mouth. ity of 19:20: [place] [address] Medical Branch calcium 2020-03 Yes Take by [facility] carbonate/v 0-22 mouth. ity of itamin D3 19:20: [place] (VITAMIN 43 Medical D-3 ORAL) Branch traMADoL 50 2020-03 Yes 50mg Take 50 mg [facility] mg tablet 0-22 by mouth ity of 19:20: every 6 [place] [address] (six) Medical hours as Branch needed. melatonin 2020-03 Yes Take by [facility] rs 10 mg Tab 0-22 mouth. ity of 19:20: [address] aspirin 81 2020-03 Yes 81mg Take 81 mg [facility] nivers mg chewable 0-22 by mouth ity of tablet 19:20: daily. [address] CALCIUM 2020-03 Yes Take by [facility] ORAL 0-22 mouth. ity of 19:20: [address] calcium 2020-03 Yes Take by [facility] carbonate/v 0-22 mouth. ity of itamin D3 19:20: [place] (VITAMIN 43 Medical D-3 ORAL) [place] traMADoL 50 2020-03 Yes 50mg Take 50 mg [facility] mg tablet 0-22 by mouth ity of 19:20: every 6 [place] [address] (six) Medical hours as Branch needed. melatonin 2020-03 Yes Take by [facility] rs 10 mg Tab 0-22 mouth. ity of 19:20: [address] aspirin 81 2020-03 Yes 81mg Take 81 mg [facility] nivers mg chewable 0-22 by mouth ity of tablet 19:20: daily. [address] CALCIUM 2020-03 Yes Take by [facility] ORAL 0-22 mouth. ity of 19:20: [address] calcium 2020-03 Yes Take by [facility] carbonate/v 0-22 mouth. ity of itamin D3 19:20: [place] (VITAMIN 43 Medical D-3 ORAL) [place] traMADoL 50 2020-03 Yes 50mg Take 50 mg [facility] mg tablet 0-22 by mouth ity of 19:20: every 6 [place] [address] (six) Medical hours as Branch needed. melatonin 2020-03 Yes Take by [facility] rs 10 mg Tab 0-22 mouth. ity of 19:20: [address] aspirin 81 2020-03 Yes 81mg Take 81 mg [facility] n[facility] mg chewable 0-22 by mouth ity of tablet 19:20: daily. [address] CALCIUM 2020-03 Yes Take by [facility] ORAL 0-22 mouth. ity of 19:20: [address] calcium 2020-03 Yes Take by [facility] carbonate/v 0-22 mouth. ity of itamin D3 19:20: [place] (VITAMIN 43 Medical D-3 ORAL) [place] traMADoL 50 2020-03 Yes 50mg Take 50 mg [facility] mg tablet 0-22 by mouth ity of 19:20: every 6 [place] [address] (six) Medical hours as Branch needed. melatonin 2020-03 Yes Take by [facility]ive rs 10 mg Tab 0-22 mouth. ity of 19:20: [address] aspirin 81 2020-03 Yes 81mg Take 81 mg [facility] nivers mg chewable 0-22 by mouth ity of tablet 19:20: daily. [address] CALCIUM 2020-03 Yes Take by [facility] ORAL 0-22 mouth. ity of 19:20: [address] calcium 2020-03 Yes Take by [facility] carbonate/v 0-22 mouth. ity of itamin D3 19:20: [place] (VITAMIN 43 Medical D-3 ORAL) [place] traMADoL 50 2020-03 Yes 50mg Take 50 mg [facility] mg tablet 0-22 by mouth ity of 19:20: every 6 [place] [address] (six) Medical hours as Branch needed. melatonin 2020-03 Yes Take by [facility] rs 10 mg Tab 0-22 mouth. ity of 19:20: [address] aspirin 81 2020-03 Yes 81mg Take 81 mg [facility] nivers mg chewable 0-22 by mouth ity of tablet 19:20: daily. [address] CALCIUM 2020-03 Yes Take by [facility] ORAL 0-22 mouth. ity of 19:20: [address] calcium 2020-03 Yes Take by [facility] carbonate/v 0-22 mouth. ity of itamin D3 19:20: [place] (VITAMIN 43 Medical D-3 ORAL) [place] traMADoL 50 2020-03 Yes 50mg Take 50 mg [facility] mg tablet 0-22 by mouth ity of 19:20: every 6 [place] [address] (six) Medical hours as Branch needed. melatonin 2020-03 Yes Take by [facility] rs 10 mg Tab 0-22 mouth. ity of 19:20: [address] traMADoL 50 2020-03 Yes 50mg Take 50 mg [facility] mg tablet 0-22 by mouth ity of 19:20: every 6 [place] [address] (six) Medical hours as Branch needed. traMADoL 50 2020-03 Yes 50mg Take 50 mg [facility] mg tablet 0-22 by mouth ity of 19:20: every 6 [place] [address] (six) Medical hours as Branch needed. traMADoL [...] 43 (six) Medical hours as Branch needed. Naprosyn [...] 3-02 by [facility] tablet 16:11: daily. [facility] albuterol Yes 1{puff} Inhale 1 [facility] [...] MG tablet 16:11: daily. Medica l 23 [place] atorvastati Yes 20mg QD Take [address] [facility] (LIPITOR) 3-02 by mouth [facility] 20 MG 16:11: daily. Medical tablet 23 [place] lisinopril- Yes 1{tbl} QD Take [address] hydroCHLORO 3-02 tablet by [facility] thiazide 16:11: mouth Medical (PRINZIDE,Z 23 daily. [place] ESTORETIC) 20-12.5 mg per tablet metoprolol Yes 25mg QD Take [address] succinate 3-02 by mouth [facility] (TOPROL-XL) 16:11: daily . Med ical 50 MG 24 hr 23 [place] tablet Missing or Yes Calcium [facility] Non-Formula 3-02 supplement [facility] k[facility] 16:11: 500 mg Medical Medication [address] nPotassium Supplement Per pt. melatonin 3 Yes 10mg QD Take [address] [facility] mg Tab 3-02 by mouth [facility] tablet 16:11: nightly. [address] aspirin 81 Yes 81mg QD Take [address] MG EC 3-02 by mouth [facility] tablet 16:11: daily. [address] albuterol Yes 1{puff} Inhale [address] HFA 3-02 puff by [facility] (VENTOLIN 16:11: mouth via Med ical HFA) 90 23 inhaler as Center mcg/actuati needed for on inhaler Wheezing. omeprazole Yes 40mg QD Take [address] (PriLOSEC) 3-02 by mouth [facility] 40 MG 16:11: daily. Medical capsule 23 [place] gabapentin Yes 600mg Q.5D Take [address] (NEURONTIN) 3-02 mg by [facility] 300 MG 16:11: mouth 2 Medical capsule 23 (two) Center times daily . amLODIPine Yes 5mg QD Take [address] (NORVASC) 5 3-02 by mouth [facility] MG tablet 16:11: daily. Medica l 23 [place] atorvastati Yes 20mg QD Take [address] [facility] (LIPITOR) 3-02 by mouth [facility] 20 MG 16:11: daily. Medical tablet 23 [place] lisinopril- Yes 1{tbl} QD Take [address] hydroCHLORO 3-02 tablet by [facility] thiazide 16:11: mouth Medical (PRINZIDE,Z 23 daily. [place] ESTORETIC) 20-12.5 mg per tablet metoprolol Yes [...] 3-02 by mouth [facility] tablet 16:11: nightly. [address] aspirin 81 Yes 81mg QD Take [address] MG EC 3-02 by mouth [facility] tablet 16:11: daily. [address] albuterol Yes 1{puff} Inhale [address] HFA 3-02 puff by [facility] (VENTOLIN 16:11: mouth via Med ical HFA) 90 23 inhaler as Center mcg/actuati needed for on inhaler Wheezing. omeprazole Yes 40mg QD Take [address] (PriLOSEC) 3-02 by mouth [facility] 40 MG 16:11: daily. Medical capsule 23 [place] gabapentin Yes 600mg Q.5D Take [address] (NEURONTIN) 3-02 mg by [facility] 300 MG 16:11: mouth 2 Medical capsule 23 (two) Center times daily . amLODIPine Yes 5mg QD Take [address] (NORVASC) 5 3-02 by mouth [facility] MG tablet 16:11: daily. Medica l 23 [place] atorvastati Yes 20mg QD Take 20 mg [...] mouth [facility] tablet 16:11: nightly. [facility] aspirin 81 Yes 81mg QD Take [address] MG EC 3-02 by mouth [facility] tablet 16:11: daily. [facility] 23 [place] albuterol Yes 1{puff} Inhale 1 C HI [...] by [place] [facility] thiazide 16:11: mouth Medical (ZIDE,Z 23 daily. Center ESTORETIC) 20-12.5 mg per [...] mouth [facility] tablet 16:11: nightly. [facility] 23 [facility] aspirin 81 Yes 81mg QD Take [address] MG EC 3-02 by mouth [facility] tablet 16:11: daily. Medical 23 [place] albuterol Yes 1{puff} Inhale 1 C HI [...] by [place] [facility] thiazide 16:11: mouth Medical (ZIDE,Z 23 daily. Center ESTORETIC) 20-12.5 mg per [...] mouth [facility] tablet 16:11: nightly. [facility] 23 [facility] aspirin 81 Yes 81mg QD Take [address] MG EC 3-02 by mouth [facility] tablet 16:11: daily. [facility] 23 [place] albuterol Yes 1{puff} Inhale [address] HFA 3-02 puff by [facility] (VENTOLIN 16:11: mouth via Med ical HFA) 90 23 inhaler as Center mcg/actuati needed for on inhaler Wheezing. omeprazole Yes 40mg QD Take [address] (PriLOSEC) 3-02 by mouth [facility] 40 MG 16:11: daily. Medical capsule 23 [place] gabapentin Yes 600mg Q.5D Take [address] (NEURONTIN) 3-02 mg by [facility] 300 MG 16:11: mouth 2 Medical capsule 23 (two) Center times daily . amLODIPine Yes 5mg QD Take [address] (NORVASC) 5 3-02 by mouth [facility] MG tablet 16:11: daily. Medica l 23 [place] atorvastati Yes 20mg QD Take 20 mg [...] 3-02 by mouth [facility] tablet 16:11: nightly. [facility] 23 Center aspirin 81 Yes 81mg QD Take [address] MG EC 3-02 by mouth [facility] tablet 16:11: daily. [facility] 23 [place] albuterol Yes 1{puff} Inhale 1 C HI [...] 20 MG 16:11: daily. Medical tablet 23 [place] lisinopril- Yes 1{tbl} QD Take [address] hydroCHLORO 3-02 tablet by [facility] thiazide 16:11: mouth Medical (PRINZIDE,Z 23 daily. [place] ESTORETIC) 20-12.5 mg per tablet metoprolol Yes [...] Take [address] [facility] mg Tab 05-26 by mouth [facility] tablet 16:11: nightly. [address] traMADoL 2020- No 50mg Take [address] (ULTRAM) 50 -04 29-02 by mouth [facility] mg tablet 12:20: 00:00 every 6 Medi [place] 05 :00 (six) Center hours as needed for Pain. traMADoL 2020- No 50mg Take [address] [facility] (ULTRAM) 50 05-26-12 tablet (50 [facility] mg tablet 00:00: [...] for Wheezing or Shortness of Breath. albuterol 0 Yes 2{puff} Inhale 2 U nivers 90 4-02 Puffs ity of mcg/actuati 00:00: every 6 [place] as on inhaler 00 (six) Medical hours as Branch needed for Wheezing or Shortness of Breath. albuterol 0 Yes 2{puff} Inhale 2 U nivers 90 4-02 Puffs ity of mcg/actuati 00:00: every 6 [place] as on inhaler 00 (six) Medical hours as Branch needed for Wheezing or Shortness of Breath. albuterol 0 Yes 2{puff} Inhale 2 U nivers 90 4-02 Puffs ity of mcg/actuati 00:00: every 6 [place] as on inhaler 00 (six) Medical hours as Branch needed for Wheezing or Shortness of Breath. albuterol 2019-0 Yes 2{puff} Inhale 2 U nivers 90 [...] for Wheezing or Shortness of Breath. albuterol 2019-0 Yes 2{puff} Inhale 2 U nivers 90 [...] 00:00: tablet dic 00 [facility] ketorolac ketorolac 2017-03 No ketorolac [place] 10 mg 10 mg 2-21 10 mg [facility] tablet tablet 00:00: tablet dic 00 [facility] ketorolac ketorolac 2017-03 No ketorolac Pretty 10 mg 10 mg 2-21 10 mg [facility] tablet tablet 00:00: tablet dic [facility] ketorolac ketorolac 2017-03 No ketorolac Pretty 10 mg 10 mg 2-21 10 mg [facility] tablet tablet 00:00: tablet dic 00 [facility] ketorolac ketorolac 2017-03 No ketorolac Pretty 10 mg 10 mg 2-21 10 mg [facility] tablet tablet 00:00: tablet dic 00 [facility] blood sugar Yes [id number] Use as [facility] diagnostic 3-30 directed ity o f (ACCU-CHEK 00:00: for once a [place] LYDIA PLUS 00 day blood Medi melita TEST STRP) glucose Branch strip monitoring for ICD of E11.9 Type 2. blood sugar Yes [id number] Use as [facility] diagnostic 3-30 directed ity o f (ACCU-CHEK 00:00: for once a [place] LYDIA PLUS 00 day blood Medi melita TEST STRP) glucose Branch strip monitoring for ICD of E11.9 Type 2. blood sugar Yes [id number] Use as [facility] diagnostic 3-30 directed ity o f (ACCU-CHEK 00:00: for once a [place] LYDIA PLUS 00 day blood Medi melita TEST STRP) glucose Branch strip monitoring for ICD of E11.9 Type 2. blood sugar Yes [id number] Use as [facility] diagnostic 3-30 directed ity o f (ACCU-CHEK 00:00: for once a [place] LYDIA PLUS 00 day blood Medi melita TEST STRP) glucose Branch strip monitoring for ICD of E11.9 Type 2. blood sugar Yes [id number] Use as [facility] diagnostic 3-30 directed ity o f (ACCU-CHEK 00:00: for once a [place] LYDIA PLUS 00 day blood Medi melita TEST STRP) glucose Branch strip monitoring for ICD of E11.9 Type 2. blood sugar Yes [id number] Use as [facility] diagnostic 3-30 directed ity o f (ACCU-CHEK 00:00: for once a [place] LYDIA PLUS 00 day blood Medi melita TEST STRP) glucose Branch strip monitoring for ICD of E11.9 Type 2. blood sugar Yes [id number] Use as [facility] diagnostic 3-30 directed ity o f (ACCU-CHEK 00:00: for once a [place] LYDIA PLUS 00 day blood Medi melita TEST STRP) glucose Branch strip monitoring for ICD of E11.9 Type 2. blood sugar Yes [id number] Use as [facility] diagnostic 3-30 directed ity o f (ACCU-CHEK 00:00: for once a [place] LYDIA PLUS 00 day blood Medi melita TEST STRP) glucose Branch strip monitoring for ICD of E11.9 Type 2. blood sugar Yes [id number] Use as [facility] diagnostic 3-30 directed ity o f (ACCU-CHEK 00:00: for once a [place] LYDIA PLUS 00 day blood Medi melita TEST STRP) glucose Branch strip monitoring for ICD of E11.9 Type 2. blood sugar Yes [id number] Use as [facility] diagnostic 3-30 directed ity o f (ACCU-CHEK 00:00: for once a [place] LYIDA PLUS 00 day blood Medi melita TEST STRP) glucose Branch strip monitoring for ICD of E11.9 Type 2. blood sugar Yes [id number] Use as [facility] diagnostic 3-30 directed ity o f (ACCU-CHEK 00:00: for once a [place] LYDIA PLUS 00 day blood Medi melita TEST STRP) glucose Branch strip monitoring for ICD of E11.9 Type 2. blood sugar Yes [id number] Use as [facility] diagnostic 3-30 directed ity o f (ACCU-CHEK 00:00: for once a [place] LYDIA PLUS 00 day blood Medi melita TEST STRP) glucose Branch strip monitoring for ICD of E11.9 Type 2. blood sugar Yes [id number] Use as [facility] diagnostic 3-30 directed ity o f (ACCU-CHEK 00:00: for once a [place] LYDIA PLUS 00 day blood Medi melita TEST STRP) glucose Branch strip monitoring for ICD of E11.9 Type 2. blood sugar Yes [id number] Use as [facility] diagnostic 3-30 directed ity o f (ACCU-CHEK 00:00: for once a [place] LYDIA PLUS 00 day blood Medi melita TEST STRP) glucose Branch strip monitoring for ICD of E11.9 Type 2. blood sugar Yes [id number] Use as [facility] diagnostic 3-30 directed ity o f (ACCU-CHEK 00:00: for once a [place] LYDIA PLUS 00 day blood Medi melita TEST STRP) glucose Branch strip monitoring for ICD of E11.9 Type 2. blood sugar Yes [id number] Use as [facility] diagnostic 3-30 directed ity o f (ACCU-CHEK 00:00: for once a [place] LYDIA PLUS 00 day blood Medi melita TEST STRP) glucose Branch strip monitoring for ICD of E11.9 Type 2. blood sugar Yes [id number] Use as [facility] diagnostic 3-30 directed ity o f (ACCU-CHEK 00:00: for once a [place] LYDIA PLUS 00 day blood Medi melita TEST STRP) glucose Branch strip monitoring for ICD of E11.9 Type 2. blood sugar Yes [id number] Use as [facility] diagnostic 3-30 directed ity o f (ACCU-CHEK 00:00: for once a [place] LYDIA PLUS 00 day blood Medi melita TEST STRP) glucose Branch strip monitoring for ICD of E11.9 Type 2. blood sugar Yes [id number] Use as [facility] diagnostic 3-30 directed ity o f (ACCU-CHEK 00:00: for once a [place] LYDIA PLUS 00 day blood Medi melita TEST STRP) glucose Branch strip monitoring for ICD of E11.9 Type 2. blood sugar Yes [id number] Use as [facility] diagnostic 3-30 directed ity o f (ACCU-CHEK 00:00: for once a [place] LYDIA PLUS 00 day blood Medi melita TEST STRP) glucose Branch strip monitoring for ICD of E11.9 Type 2. blood sugar Yes [id number] Use as [facility] diagnostic 3-30 directed ity o f (ACCU-CHEK 00:00: for once a [place] LYDIA PLUS 00 day blood Medi melita TEST STRP) glucose Branch strip monitoring for ICD of E11.9 Type 2. blood sugar Yes [id number] Use as [facility] diagnostic 3-30 directed ity o f (ACCU-CHEK 00:00: for once a [place] LYDIA PLUS 00 day blood Medi melita TEST STRP) glucose Branch strip monitoring for ICD of E11.9 Type 2. blood sugar Yes [id number] Use as [facility] diagnostic 3-30 directed ity o f (ACCU-CHEK 00:00: for once a [place] LYDIA PLUS 00 day blood Medi melita TEST STRP) glucose Branch strip monitoring for ICD of E11.9 Type 2. blood sugar Yes [id number] Use as [facility] diagnostic 3-30 directed ity o f (ACCU-CHEK 00:00: for once a [place] LYDIA PLUS 00 day blood Medi melita TEST STRP) glucose Branch strip monitoring for ICD of E11.9 Type 2. blood sugar Yes [id number] Use as [facility] diagnostic 3-30 directed ity o f (ACCU-CHEK 00:00: for once a [place] LYDIA PLUS 00 day blood Medi melita TEST STRP) glucose Branch strip monitoring for ICD of E11.9 Type 2. blood sugar Yes [id number] Use as [facility] diagnostic 3-30 directed ity o f (ACCU-CHEK 00:00: for once a [place] LYDIA PLUS 00 day blood Medi melita TEST STRP) glucose Branch strip monitoring for ICD of E11.9 Type 2. blood sugar Yes [id number] Use as [facility] diagnostic 3-30 directed ity o f (ACCU-CHEK 00:00: for once a [place] LYDIA PLUS 00 day blood Medi melita TEST STRP) glucose Branch strip monitoring for ICD of E11.9 Type 2. blood sugar Yes [id number] Use as [facility] diagnostic 3-30 directed ity o f (ACCU-CHEK 00:00: for once a [place] LYDIA PLUS 00 day blood Medi melita TEST STRP) glucose Branch strip monitoring for ICD of E11.9 Type 2. blood sugar Yes [id number] Use as [facility] diagnostic 3-30 directed ity o f (ACCU-CHEK 00:00: for once a [place] LYDIA PLUS 00 day blood Medi melita TEST STRP) glucose Branch strip monitoring for ICD of E11.9 Type 2. blood sugar Yes [id number] Use as [facility] diagnostic 3-30 directed ity o f (ACCU-CHEK 00:00: for once a [place] LYDIA PLUS 00 day blood Medi melita TEST STRP) glucose Branch strip monitoring for ICD of E11.9 Type 2. blood sugar Yes [id number] Use as [facility] diagnostic 3-30 directed ity o f (ACCU-CHEK 00:00: for once a [place] LYDIA PLUS 00 day blood Medi melita TEST STRP) glucose Branch strip monitoring for ICD of E11.9 Type 2. blood sugar Yes [id number] Use as [facility] diagnostic 3-30 directed ity o f (ACCU-CHEK 00:00: for once a [place] LYDIA PLUS 00 day blood Medi melita TEST STRP) glucose Branch strip monitoring for ICD of E11.9 Type 2. blood sugar Yes [id number] Use as [facility] diagnostic 3-30 directed ity o f (ACCU-CHEK 00:00: for once a [place] LYDIA PLUS 00 day blood Medi melita TEST STRP) glucose Branch strip monitoring for ICD of E11.9 Type 2. blood sugar Yes [id number] Use as [facility] diagnostic 3-30 directed ity o f (ACCU-CHEK 00:00: for once a [place] LYDIA PLUS 00 day blood Medi melita TEST STRP) glucose Branch strip monitoring for ICD of E11.9 Type 2. lancets 2016-03 Yes Use as [facility]ive rs gauge Misc 2-21 directed ity o f 00:00: for once a [place] 00 day blood Medical glucose Branch monitoring for ICD code of E11.9 lancets 31 2016-03 Yes Use as Unive rs gauge [...] 2015-03 No Calcium Azal ea Concentrate Concentrate 1-03 Concentrat [facility] 600 mg 600 mg 00:00: [...] 2015-03 No Calcium Azal ea Concentrate Concentrate - Concentrat [facility] 600 mg 600 mg 00:00: [...] 2015-03 No Calcium Azal ea Concentrate Concentrate 1-03 Concentrat [facility] 600 mg 600 mg 00:00: [...] tablet tablet tablet Medicin e Zyrtec 10 yrtec 10 2015-03 No Zyrtec 10 Pretty mg [...] tablet tablet tablet Medicin e Zyrtec 10 yrtec 10 2015-03 No Zyrtec 10 Pretty mg [...] orts capsule capsule capsule Medici n e gabapentin gabapentin No gabapentin Pretty 300 mg [...] other RX by [facility] MD TINEO other MD [facility] mesalamine mesalamine No mesalamine Pretty 1.2 gram 1.2 gram 1.2 gram Ort hope tablet,gilbert tablet,gilbert tablet,del dic yed release yed release ayed [...] 20 mg 20 mg 20 mg [facility] tablet,gilbert tablet,gilbert tablet,del dic yed release yed release ayed [...] dic MD TINEO by other Sports MD Medicin e Xarelto [...] aspirin 81 Pretty mg mg mg [facility] tablet,gilbert tablet,gilbert tablet,del dic yed release yed release ayed S ports RX by other RX by other release RX Medicin MD by other e atorvastati atorvastati No atorvastat Pretty n 20 mg n 20 mg in 20 mg Orth[facility] pe tablet tablet tablet dic [facility] B-12 RX by B-12 RX by No B-12 RX by Pretty wagoner MD other other MD Ort hope dic Sports [facility]in [...] gram 1.2 gram 1.2 gram Ort hope tablet,gilbert tablet,gilbert tablet,del dic yed release yed release ayed [...] 20 mg 20 mg 20 mg [facility] tablet,gilbert tablet,gilbert tablet,del dic yed release yed release ayed [...] aspirin 81 Pretty mg mg mg [facility] tablet,gilbert tablet,gilbert tablet,del dic yed release yed release ayed S ports RX by other RX by other release RX Medicin MD TINEO by other e atorvastati atorvastati No atorvastat Pretty n 20 mg n 20 mg in 20 mg Orth[facility] pe tablet tablet tablet dic [place] [facility] B-12 RX by B-12 RX by No B-12 RX by Pretty wagoner MD other other MD [facility] dic [facility] [...] other RX by Orthopjoe TINEO MD other MD parekh [facility] mesalamine mesalamine No mesalamine Pretty 1.2 gram 1.2 gram 1.2 gram Ort hope tablet,gilbert tablet,gilbert tablet,del dic yed release yed release ayed [...] 20 mg 20 mg 20 mg [facility] tablet,gilbert tablet,gilbert tablet,del dic yed release yed release ayed [...] aspirin 81 Pretty mg mg mg [facility] tablet,gilbert tablet,gilbert tablet,del dic yed release yed release ayed S ports RX by other RX by other release RX Gillian TINEO MD by other e atorvastati atorvastati No atorvastat Pretty n 20 mg n 20 mg in 20 mg Ortho pe tablet tablet tablet dic [facility] B-12 RX by B-12 RX by No B-12 RX by Pretty wagoner MD other other MD [facility] dic [facility] [...] MOUTH 1 MOUTH 1 TABLET BY Medi [facility] TIME NOW TIME NOW MOUTH 1 e [...] MD by other MD by other Sports Medicyohan e lisinopril lisinopril No lisinopril Pretty 2.5 [...] gram 1.2 gram 1.2 gram Ort hope tablet,gilbert tablet,gilbert tablet,del dic yed release yed release ayed [...] 20 mg 20 mg 20 mg [facility] tablet,gilbert tablet,gilbert tablet,del dic yed release yed release ayed [...] aspirin 81 Pretty mg mg mg [facility] tablet,gilbert tablet,gilbert tablet,del dic yed release yed release ayed S ports RX by other RX by other release RX Medicin MD TINEO by other e atorvastaakiko atorvastati No atorvastat Pretty n 20 mg n 20 mg in 20 mg Ortho pe tablet tablet tablet dic [facility] B-12 RX by B-12 RX by No B-12 RX by Pretty wagoner MD other other [facility] [place] dic [facility] BinaxNOW BinaxNOW No [...] 500 mg [facility] tablet tablet tablet dic [place] [facility] fluconazole fluconazole No fluconazol Pretty [...] other RX by Jassi TINEO MD other MD dic [facility] mesalamine mesalamine No mesalamine Pretty 1.2 gram 1.2 gram 1.2 gram Ort hope tablet,gilbert tablet,gilbert tablet,del dic yed release yed release ayed [...] Sports Medic[facility] e metronidazo metronidazo No metronidaz Pretyt le 500 mg le 500 mg ole [...] 20 mg 20 mg 20 mg [facility] tablet,gilbert tablet,gilbert tablet,del dic yed release yed release ayed [...] aspirin 81 Pretty mg mg mg [facility] tablet,gilbert tablet,gilbert tablet,del dic yed release yed release ayed [...] NEEDED 3-4 DAYS FOR 1 DOSE NEEDED Immunizations Ordered Filled Immunization Date Status Comments [facility] e Immunization Name Name Influenza Virus [...] Completed Unive [facility] of PFIZER VACCINE 00:00:00 [facility] SARS-COV-2 COVID-19 2021-01-27 Completed Unive [facility] of PFIZER VACCINE 00:00:00 [facility] SARS-COV-2 COVID-19 2021-01-27 Completed [facility]ive [facility] of PFIZER VACCINE 00:00:00 [facility] SARS-COV-2 COVID-19 2021-01-27 Completed Unive [facility]ity of PFIZER VACCINE 00:00:00 [facility] SARS-COV-2 COVID-19 2021-01-27 Completed [facility]ive [facility] of PFIZER VACCINE 00:00:00 [facility] SARS-COV-2 COVID-19 2021-01-27 Completed [facility]ive [facility] of PFIZER VACCINE 00:00:00 [facility] SARS-COV-2 COVID-19 2021-01-27 Completed [facility]ive [facility] of PFIZER VACCINE 00:00:00 [facility] SARS-COV-2 COVID-19 2021-01-27 Completed Unive rsity of PFIZER VACCINE 00:00:00 [facility] SARS-COV-2 COVID-19 2021-01-27 Completed [facility]ive [facility] of PFIZER VACCINE 00:00:00 [facility] SARS-COV-2 COVID-19 2021-01-27 Completed [facility] of PFIZER VACCINE 00:00:00 [facility] SARS-COV-2 COVID-19 2021-01-27 Completed [facility] of PFIZER VACCINE 00:00:00 [facility] SARS-COV-2 COVID-19 2021-01-27 Completed [facility] of PFIZER VACCINE 00:00:00 [facility] SARS-COV-2 COVID-19 2021-01-27 Completed [facility]ive [facility] of PFIZER VACCINE 00:00:00 [facility] SARS-COV-2 COVID-19 2021-01-27 Completed [facility] of PFIZER VACCINE 00:00:00 [facility] SARS-COV-2 COVID-19 2021-01-27 Completed [facility] of PFIZER VACCINE 00:00:00 [facility] SARS-COV-2 COVID-19 2021-01-27 Completed [facility] of PFIZER VACCINE 00:00:00 [facility] SARS-COV-2 COVID-19 2021-01-27 Completed [facility] of PFIZER VACCINE 00:00:00 [facility] SARS-COV-2 COVID-19 2021-01-27 Completed [facility] of PFIZER VACCINE 00:00:00 [facility] SARS-COV-2 COVID-19 2021-01-27 Completed [facility] of PFIZER VACCINE 00:00:00 [facility] SARS-COV-2 COVID-19 2021-01-27 Completed [facility]ive [facility] of PFIZER VACCINE 00:00:00 [facility] SARS-COV-2 COVID-19 2021-01-27 Completed [facility] of PFIZER VACCINE 00:00:00 [facility] SARS-COV-2 COVID-19 2021-01-27 Completed [facility] of PFIZER VACCINE 00:00:00 [facility] SARS-COV-2 COVID-19 2021-01-27 Completed [facility] of PFIZER VACCINE 00:00:00 [facility] SARS-COV-2 COVID-19 2021-01-27 Completed [facility]ive [facility] of PFIZER VACCINE 00:00:00 [facility] SARS-COV-2 COVID-19 2021-01-27 Completed [facility] of PFIZER VACCINE 00:00:00 [facility] SARS-COV-2 COVID-19 2021-01-27 Completed [facility]ive [facility] of PFIZER VACCINE 00:00:00 [facility] SARS-COV-2 COVID-19 2021-01-27 Completed [facility] of PFIZER VACCINE 00:00:00 [facility] SARS-COV-2 COVID-19 2021-01-27 Completed [facility] of PFIZER VACCINE 00:00:00 [facility] SARS-COV-2 COVID-19 2021-01-27 Completed [facility]ive [facility] of PFIZER VACCINE 00:00:00 [facility] SARS-COV-2 COVID-19 2021-01-27 Completed [facility] of PFIZER VACCINE 00:00:00 [facility] SARS-COV-2 COVID-19 2021-01-27 Completed [facility] of PFIZER VACCINE 00:00:00 [facility] SARS-COV-2 COVID-19 2021-01-27 Completed [facility] of PFIZER VACCINE 00:00:00 [facility] SARS-COV-2 COVID-19 2021-01-27 Completed [facility] of PFIZER VACCINE 00:00:00 [facility] SARS-COV-2 COVID-19 2021-01-27 Completed [facility] of PFIZER VACCINE 00:00:00 [facility] Influenza Virus 2021-01-11 Completed [facility] [...] Completed [facility]ive [facility] of PADMINI/J&J VACCINE 00:00:00 [facility] SARS-COV-2 COVID-19 2020-06-05 Completed Unive [facility] of PADMINI/J&J VACCINE 00:00:00 [facility] SARS-COV-2 COVID-19 2020-06-05 Completed [facility]ive [facility] of PADMINI/J&J VACCINE 00:00:00 [facility] SARS-COV-2 COVID-19 2020-06-05 Completed [facility] of PADMINI/J&J VACCINE 00:00:00 [facility] SARS-COV-2 COVID-19 2020-06-05 Completed [facility]ive [facility] of PADMINI/J&J VACCINE 00:00:00 [facility] SARS-COV-2 COVID-19 2020-06-05 Completed [facility]ive [facility] of PADMINI/J&J VACCINE 00:00:00 [facility] SARS-COV-2 COVID-19 2020-06-05 Completed [facility]ive [facility] of PADMINI/J&J VACCINE 00:00:00 [facility] SARS-COV-2 COVID-19 2020-06-05 Completed [facility]ive [facility] of PADMINI/J&J VACCINE 00:00:00 [facility] SARS-COV-2 COVID-19 2020-06-05 Completed [facility]ive [facility] of PADMINI/J&J VACCINE 00:00:00 [facility] SARS-COV-2 COVID-19 2020-06-05 Completed [facility]ive rs[facility] of PADMINI/J&J VACCINE 00:00:00 [facility] SARS-COV-2 COVID-19 2020-06-05 Completed [facility]ive [facility] of PADMINI/J&J VACCINE 00:00:00 [facility] SARS-COV-2 COVID-19 2020-06-05 Completed [facility]ive rs[facility] of PADMINI/J&J VACCINE 00:00:00 [facility] SARS-COV-2 COVID-19 2020-06-05 Completed [facility] of PADMINI/J&J VACCINE 00:00:00 [facility] SARS-COV-2 COVID-19 2020-06-05 Completed [facility]ive [facility] of PADMINI/J&J VACCINE 00:00:00 [facility] SARS-COV-2 COVID-19 2020-06-05 Completed [facility] of PADMINI/J&J VACCINE 00:00:00 [facility] SARS-COV-2 COVID-19 2020-06-05 Completed [facility]ive [facility] of PADMINI/J&J VACCINE 00:00:00 [facility] SARS-COV-2 COVID-19 2020-06-05 Completed [facility] of PADMINI/J&J VACCINE 00:00:00 [facility] SARS-COV-2 COVID-19 2020-06-05 Completed [facility]ive [facility] of PADMINI/J&J VACCINE 00:00:00 [facility] SARS-COV-2 COVID-19 2020-06-05 Completed [facility] of PADMINI/J&J VACCINE 00:00:00 [facility] SARS-COV-2 COVID-19 2020-06-05 Completed Unive rsity of PADMNII/J&J VACCINE 00:00:00 [facility] SARS-COV-2 COVID-19 2020-06-05 Completed [facility]ive [facility] of PADMINI/J&J VACCINE 00:00:00 [facility] SARS-COV-2 COVID-19 2020-06-05 Completed [facility]ive [facility] of PADMINI/J&J VACCINE 00:00:00 [facility] SARS-COV-2 COVID-19 2020-06-05 Completed [facility] of PADMINI/J&J VACCINE 00:00:00 [facility] SARS-COV-2 COVID-19 2020-06-05 Completed [facility]ive [facility] of PADMINI/J&J VACCINE 00:00:00 [facility] SARS-COV-2 COVID-19 2020-06-05 Completed [facility] of PADMINI/J&J VACCINE 00:00:00 [facility] SARS-COV-2 COVID-19 2020-06-05 Completed [facility] of PADMINI/J&J VACCINE 00:00:00 [facility] SARS-COV-2 COVID-19 2020-06-05 Completed [facility] of PADMINI/J&J VACCINE 00:00:00 [facility] SARS-COV-2 COVID-19 2020-06-05 Completed [facility] of PADMINI/J&J VACCINE 00:00:00 [facility] SARS-COV-2 COVID-19 2020-06-05 Completed [facility]ive [facility] of PADMINI/J&J VACCINE 00:00:00 [facility] SARS-COV-2 COVID-19 2020-06-05 Completed [facility] of PADMINI/J&J VACCINE 00:00:00 [facility] SARS-COV-2 COVID-19 2020-06-05 Completed [facility]ive [facility] of PADMINI/J&J VACCINE 00:00:00 [facility] SARS-COV-2 COVID-19 2020-06-05 Completed [facility] of PADMINI/J&J VACCINE 00:00:00 [facility] SARS-COV-2 COVID-19 2020-06-05 Completed [facility]ive [facility] of PADMINI/J&J VACCINE 00:00:00 [facility] SARS-COV-2 COVID-19 2020-06-05 Completed [facility] of PADMINI/J&J VACCINE 00:00:00 [facility] Influenza High Dose 2019-12-25 Completed [facility] of Quad 00:00:00 [facility] Influenza High Dose 2019-12-25 Completed [facility] 00:00:00 [facility] Influenza High Dose 2019-12-25 Completed [facility] 00:00:00 [facility] Influenza High Dose 2019-12-25 Completed [facility] 00:00:00 [facility] Influenza High Dose 2019-12-25 Completed [facility] 00:00:00 [facility] Influenza High Dose 2019-12-25 Completed [facility] 00:00:00 [facility] Influenza High Dose 2019-12-25 Completed [facility] 00:00:00 [facility] Influenza High Dose 2019-12-25 Completed [facility] 00:00:00 [facility] Influenza High Dose 2019-12-25 Completed [facility] 00:00:00 [facility] Influenza High Dose 2019-12-25 Completed [facility] 00:00:00 [facility] Influenza High Dose 2019-12-25 Completed [facility] 00:00:00 [facility] Influenza High Dose 2019-12-25 Completed [facility] 00:00:00 [facility] Influenza High Dose 2019-12-25 Completed [facility] 00:00:00 [facility] Influenza High Dose 2019-12-25 Completed [facility] 00:00:00 [facility] Influenza High Dose 2019-12-25 Completed [facility] 00:00:00 [facility] Influenza High Dose 2019-12-25 Completed [facility] 00:00:00 [facility] Influenza High Dose 2019-12-25 Completed [facility] 00:00:00 [facility] Influenza High Dose 2019-12-25 Completed [facility] 00:00:00 [facility] Influenza High Dose 2019-12-25 Completed [facility] 00:00:00 [facility] Influenza High Dose 2019-12-25 Completed [facility] 00:00:00 [facility] Influenza High Dose 2019-12-25 Completed [facility] of [facility] 00:00:00 [facility] Influenza High Dose 2019-12-25 Completed [facility] 00:00:00 [facility] Influenza High Dose 2019-12-25 Completed [facility] of [facility] 00:00:00 [facility] Influenza High Dose 2019-12-25 Completed [facility] 00:00:00 [facility] Influenza High Dose 2019-12-25 Completed [facility] 00:00:00 [facility] Influenza High Dose 2019-12-25 Completed [facility] of [facility] 00:00:00 [facility] Influenza High Dose 2019-12-25 Completed [facility] 00:00:00 [facility] Influenza High Dose 2019-12-25 Completed [facility] 00:00:00 [facility] Influenza High Dose 2019-12-25 Completed [facility] 00:00:00 [facility] Influenza High Dose 2019-12-25 Completed [facility] Quad 00:00:00 [facility] Influenza High Dose 2019-12-25 Completed [facility] 00:00:00 [facility] Influenza High Dose 2019-12-25 Completed [facility] 00:00:00 [facility] Influenza High Dose 2019-12-25 Completed [facility] 00:00:00 [facility] Influenza High Dose 2019-12-25 Completed [facility] 00:00:00 [facility] Influenza High Dose 2019-01-14 Completed [facility]ive [facility] of 00:00:00 [facility] Pneumococcal 2019-01-14 Completed University o f Polysaccharide, 00:00:00 [facility] PPSV23 (PNEUMOVAX) [place] Influenza High Dose 2019-01-14 Completed Unive [facility]ity of 00:00:00 [facility] Pneumococcal 2019-01-14 Completed [facility] o f Polysaccharide, 00:00:00 [place] [facility] PPSV23 (PNEUMOVAX) [facility] Influenza High Dose 2019-01-14 Completed Unive rsity of 00:00:00 [facility] Pneumococcal 2019-01-14 Completed [facility] o f Polysaccharide, 00:00:00 [place] [facility] PPSV23 (PNEUMOVAX) [facility] Influenza High Dose 2019-01-14 Completed [facility] of 00:00:00 [facility] Pneumococcal 2019-01-14 Completed [facility] o f Polysaccharide, 00:00:00 [place] [facility] PPSV23 (PNEUMOVAX) [facility] Influenza High Dose 2019-01-14 Completed [facility] of 00:00:00 [facility] Pneumococcal 2019-01-14 Completed University o f Polysaccharide, 00:00:00 [place] [facility] PPSV23 (PNEUMOVAX) [facility] Influenza High Dose 2019-01-14 Completed [facility]ive [facility]ity of 00:00:00 [facility] Pneumococcal 2019-01-14 Completed [facility] o f Polysaccharide, 00:00:00 [place] [facility] PPSV23 (PNEUMOVAX) [facility] Influenza High Dose 2019-01-14 Completed Unive [facility] of 00:00:00 [facility] Pneumococcal 2019-01-14 Completed [facility] o f Polysaccharide, 00:00:00 [place] [facility] PPSV23 (PNEUMOVAX) [facility] Influenza High Dose 2019-01-14 Completed [facility]ity of 00:00:00 [facility] Pneumococcal 2019-01-14 Completed [facility] o f Polysaccharide, 00:00:00 [place] [facility] PPSV23 (PNEUMOVAX) [facility] Influenza High Dose 2019-01-14 Completed [facility]ity of 00:00:00 [facility] Pneumococcal 2019-01-14 Completed [facility] o f Polysaccharide, 00:00:00 [place] [facility] PPSV23 (PNEUMOVAX) [facility] Influenza High Dose 2019-01-14 Completed [facility]ive [facility]ity of 00:00:00 [facility] Pneumococcal 2019-01-14 Completed [facility] o f Polysaccharide, 00:00:00 [place] [facility] PPSV23 (PNEUMOVAX) [facility] Influenza High Dose 2019-01-14 Completed [facility]ity of 00:00:00 [facility] Pneumococcal 2019-01-14 Completed [facility] o f Polysaccharide, 00:00:00 [place] [facility] PPSV23 (PNEUMOVAX) [facility] Influenza High Dose 2019-01-14 Completed [facility]ive [facility]ity of 00:00:00 [facility] Pneumococcal 2019-01-14 Completed [facility] o f Polysaccharide, 00:00:00 [place] [facility] PPSV23 (PNEUMOVAX) [facility] Influenza High Dose 2019-01-14 Completed [facility]ive [facility]ity of 00:00:00 [facility] Pneumococcal 2019-01-14 Completed [facility] o f Polysaccharide, 00:00:00 [place] [facility] PPSV23 (PNEUMOVAX) Branch Influenza High Dose 2019-01-14 Completed Unive [facility]ity of 00:00:00 [facility] Pneumococcal 2019-01-14 Completed [facility] o f Polysaccharide, 00:00:00 [place] [facility] PPSV23 (PNEUMOVAX) [facility] Influenza High Dose 2019-01-14 Completed [facility]ity of 00:00:00 [facility] Pneumococcal 2019-01-14 Completed [facility] o f Polysaccharide, 00:00:00 [place] [facility] PPSV23 (PNEUMOVAX) [facility] Influenza High Dose 2019-01-14 Completed [facility] of 00:00:00 [facility] Pneumococcal 2019-01-14 Completed [facility] o f Polysaccharide, 00:00:00 [place] [facility] PPSV23 (PNEUMOVAX) [facility] Influenza High Dose 2019-01-14 Completed Unive [facility]ity of 00:00:00 [facility] Pneumococcal 2019-01-14 Completed [facility] o f Polysaccharide, 00:00:00 [place] [facility] PPSV23 (PNEUMOVAX) [facility] Influenza High Dose 2019-01-14 Completed Unive [facility] of 00:00:00 [facility] Pneumococcal 2019-01-14 Completed [facility] o f Polysaccharide, 00:00:00 [place] [facility] PPSV23 (PNEUMOVAX) Branch Influenza High Dose 2019-01-14 Completed Un[facility]ity of 00:00:00 [facility] Pneumococcal 2019-01-14 Completed [facility] o f Polysaccharide, 00:00:00 [place] [facility] PPSV23 (PNEUMOVAX) Branch Influenza High Dose 2019-01-14 Completed [facility] of 00:00:00 [facility] Pneumococcal 2019-01-14 Completed [facility] o f Polysaccharide, 00:00:00 [place] [facility] PPSV23 (PNEUMOVAX) Branch Influenza High Dose 2019-01-14 Completed [facility]ity of 00:00:00 [facility] Pneumococcal 2019-01-14 Completed [facility] o f Polysaccharide, 00:00:00 [place] [facility] PPSV23 (PNEUMOVAX) Branch Influenza High Dose 2019-01-14 Completed [facility]ive [facility]ity of 00:00:00 [facility] Pneumococcal 2019-01-14 Completed [facility] o f Polysaccharide, 00:00:00 [place] [facility] PPSV23 (PNEUMOVAX) Branch Influenza High Dose 2019-01-14 Completed Un[facility]ity of 00:00:00 [facility] Pneumococcal 2019-01-14 Completed [facility] o f Polysaccharide, 00:00:00 [place] [facility] PPSV23 (PNEUMOVAX) Branch Influenza High Dose 2019-01-14 Completed [facility]ity of 00:00:00 [facility] Pneumococcal 2019-01-14 Completed [facility] o f Polysaccharide, 00:00:00 [place] [facility] PPSV23 (PNEUMOVAX) Branch Influenza High Dose 2019-01-14 Completed [facility]ity of 00:00:00 [facility] Pneumococcal 2019-01-14 Completed [facility] o f Polysaccharide, 00:00:00 [place] [facility] PPSV23 (PNEUMOVAX) Branch Influenza High Dose 2019-01-14 Completed Unive [facility]ity of 00:00:00 [facility] Pneumococcal 2019-01-14 Completed [facility] o f Polysaccharide, 00:00:00 [place] [facility] PPSV23 (PNEUMOVAX) Branch Influenza High Dose 2019-01-14 Completed [facility]ity of 00:00:00 [facility] Pneumococcal 2019-01-14 Completed [facility] o f Polysaccharide, 00:00:00 [place] [facility] PPSV23 (PNEUMOVAX) Branch Influenza High Dose 2019-01-14 Completed [facility]ity of 00:00:00 [facility] Pneumococcal 2019-01-14 Completed [facility] o f Polysaccharide, 00:00:00 [place] [facility] PPSV23 (PNEUMOVAX) Branch Influenza High Dose 2019-01-14 Completed [facility]ity of 00:00:00 [facility] Pneumococcal 2019-01-14 Completed [facility] o f Polysaccharide, 00:00:00 [place] [facility] PPSV23 (PNEUMOVAX) Branch Influenza High Dose 2019-01-14 Completed [facility]ity of 00:00:00 [facility] Pneumococcal 2019-01-14 Completed [facility] o f Polysaccharide, 00:00:00 [place] [facility] PPSV23 (PNEUMOVAX) Branch Influenza High Dose 2019-01-14 Completed [facility]ive [facility]ity of 00:00:00 [facility] Pneumococcal 2019-01-14 Completed [facility] o f Polysaccharide, 00:00:00 [place] [facility] PPSV23 (PNEUMOVAX) Branch Influenza High Dose 2019-01-14 Completed [facility]ity of 00:00:00 [facility] Pneumococcal 2019-01-14 Completed [facility] o f Polysaccharide, 00:00:00 [place] [facility] PPSV23 (PNEUMOVAX) [facility] Influenza High Dose 2019-01-14 Completed [facility]ity of 00:00:00 [facility] Pneumococcal 2019-01-14 Completed [facility] o f Polysaccharide, 00:00:00 [place] [facility] PPSV23 (PNEUMOVAX) Branch Influenza High Dose 2019-01-14 Completed Un[facility] rsity of 00:00:00 [facility] Pneumococcal 2019-01-14 Completed [facility] o f Polysaccharide, 00:00:00 [place] [facility] PPSV23 (PNEUMOVAX) Branch Influenza High Dose 2018-01-11 Completed Unive rsity of 00:00:00 [facility] Influenza High Dose 2018-01-11 Completed Unive rsity of 00:00:00 [facility] Influenza High Dose 2018-01-11 Completed [facility]ity of 00:00:00 [facility] Influenza High Dose 2018-01-11 Completed [facility]ive [facility]ity of 00:00:00 [facility] Influenza High Dose 2018-01-11 Completed [facility]ive [facility]ity of 00:00:00 [facility] Influenza High Dose 2018-01-11 Completed Unive rsity of 00:00:00 [facility] Influenza High Dose 2018-01-11 Completed [facility]ive [facility]ity of 00:00:00 [facility] Influenza High Dose 2018-01-11 Completed Unive [facility]ity of 00:00:00 [facility] Influenza High Dose 2018-01-11 Completed [facility]ive rsity of 00:00:00 [facility] Influenza High Dose 2018-01-11 Completed [facility]ity of 00:00:00 [facility] Influenza High Dose 2018-01-11 Completed [facility]ity of 00:00:00 [facility] Influenza High Dose 2018-01-11 Completed [facility]ity of 00:00:00 [facility] Influenza High Dose 2018-01-11 Completed [facility] 00:00:00 [place] [facility] Influenza High Dose 2018-01-11 Completed Unive rsity of 00:00:00 [facility] Influenza High Dose 2018-01-11 Completed Unive rsity of 00:00:00 [facility] Influenza High Dose 2018-01-11 Completed Unive rsity of 00:00:00 [facility] Influenza High Dose 2018-01-11 Completed Unive rsity of 00:00:00 [facility] Influenza High Dose 2018-01-11 Completed Unive rsity of 00:00:00 [facility] Influenza High Dose 2018-01-11 Completed Unive [facility]ity of 00:00:00 [facility] Influenza High Dose 2018-01-11 Completed [facility]ive [facility]ity of 00:00:00 [facility] Influenza High Dose 2018-01-11 Completed [facility]ive [facility]ity of 00:00:00 [facility] Influenza High Dose 2018-01-11 Completed Unive rsity of 00:00:00 [facility] Influenza High Dose 2018-01-11 Completed Un[facility]ity of 00:00:00 [facility] Influenza High Dose 2018-01-11 Completed [facility] of 00:00:00 [facility] Influenza High Dose 2018-01-11 Completed Unive rsity of 00:00:00 [facility] Influenza High Dose 2018-01-11 Completed [facility]ive rsity of 00:00:00 [facility] Influenza High Dose 2018-01-11 Completed [facility]ive rsity of 00:00:00 [facility] Influenza High Dose 2018-01-11 Completed [facility]ive rsity of 00:00:00 [facility] Influenza High Dose 2018-01-11 Completed Unive rsity of 00:00:00 [facility] Influenza High Dose 2018-01-11 Completed Unive rsity of 00:00:00 [facility] Influenza High Dose 2018-01-11 Completed Unive rsity of 00:00:00 [facility] Influenza High Dose 2018-01-11 Completed Unive rsity of 00:00:00 [facility] Influenza High Dose 2018-01-11 Completed Unive rsity of 00:00:00 [facility] Influenza High Dose 2018-01-11 Completed Unive rsity of 00:00:00 [facility] Influenza High Dose 2016-12-28 Completed Unive rsity of 00:00:00 [facility] Influenza High Dose 2016-12-28 Completed Unive rsity of 00:00:00 [facility] Influenza High Dose 2016-12-28 Completed Unive rsity of 00:00:00 [facility] Influenza High Dose 2016-12-28 Completed Unive rsity of 00:00:00 [facility] Influenza High Dose 2016-12-28 Completed [facility]ive rsity of 00:00:00 [facility] Influenza High Dose 2016-12-28 Completed Unive rsity of 00:00:00 [facility] Influenza High Dose 2016-12-28 Completed Unive rsity of 00:00:00 [facility] Influenza High Dose 2016-12-28 Completed Unive rsity of 00:00:00 [facility] Influenza High Dose 2016-12-28 Completed Unive rsity of 00:00:00 [facility] Influenza High Dose 2016-12-28 Completed Unive rsity of 00:00:00 [facility] Influenza High Dose 2016-12-28 Completed Unive rsity of 00:00:00 [facility] Influenza High Dose 2016-12-28 Completed Unive rsity of 00:00:00 [facility] Influenza High Dose 2016-12-28 Completed Unive rsity of 00:00:00 [facility] Influenza High Dose 2016-12-28 Completed Unive rsity of 00:00:00 [facility] Influenza High Dose 2016-12-28 Completed Unive rsity of 00:00:00 [facility] Influenza High Dose 2016-12-28 Completed Unive rsity of 00:00:00 [facility] Influenza High Dose 2016-12-28 Completed Unive rsity of 00:00:00 [facility] Influenza High Dose 2016-12-28 Completed Unive rsity of 00:00:00 [facility] Influenza High Dose 2016-12-28 Completed [facility]ive rsity of 00:00:00 [facility] Influenza High Dose 2016-12-28 Completed [facility]ive rsity of 00:00:00 [facility] Influenza High Dose 2016-12-28 Completed [facility]ive rsity of 00:00:00 [facility] Influenza High Dose 2016-12-28 Completed Unive rsity of 00:00:00 [facility] Influenza High Dose 2016-12-28 Completed Unive rsity of 00:00:00 [facility] Influenza High Dose 2016-12-28 Completed [facility]ive rsity of 00:00:00 [facility] Influenza High Dose 2016-12-28 Completed [facility]ive rsity of 00:00:00 [facility] Influenza High Dose 2016-12-28 Completed Unive rsity of 00:00:00 [facility] Influenza High Dose 2016-12-28 Completed Unive rsity of 00:00:00 [facility] Influenza High Dose 2016-12-28 Completed [facility]ive rsity of 00:00:00 [facility] Influenza High Dose 2016-12-28 Completed Unive rsity of 00:00:00 [facility] Influenza High Dose 2016-12-28 Completed [facility]ive rsity of 00:00:00 [facility] Influenza High Dose 2016-12-28 Completed [facility]ive rsity of 00:00:00 [facility] Influenza High Dose 2016-12-28 Completed [facility]ive rsity of 00:00:00 [facility] Influenza High Dose 2016-12-28 Completed [facility]ive rsity of 00:00:00 [facility] Influenza High Dose 2016-12-28 Completed [facility]ive rsity of 00:00:00 [facility] Influenza High Dose 2016-01-06 Completed [facility]ive rsity of 00:00:00 [facility] Pneumococcal 13 2016-01-06 Completed Universit y of Conjugate, PCV13 00:00:00 [facility] dical (Prevnar 13) Branch Influenza High Dose 2016-01-06 Completed Unive rsity of 00:00:00 [facility] Pneumococcal 13 2016-01-06 Completed Universit y of Conjugate, PCV13 00:00:00 [facility] dical (Prevnar 13) Branch Influenza High Dose 2016-01-06 Completed Unive rsity of 00:00:00 [facility] Pneumococcal 13 2016-01-06 Completed Universit y of Conjugate, PCV13 00:00:00 [facility] dical (Prevnar 13) Branch Influenza High Dose 2016-01-06 Completed Unive rsity of 00:00:00 [facility] Pneumococcal 13 2016-01-06 Completed Universit y of Conjugate, PCV13 00:00:00 [place] [facility] (Prevnar 13) Branch Influenza High Dose 2016-01-06 Completed Unive rsity of 00:00:00 [facility] Pneumococcal 13 2016-01-06 Completed Universit y of Conjugate, PCV13 00:00:00 [facility] dical (Prevnar 13) Branch Influenza High Dose 2016-01-06 Completed Unive rsity of 00:00:00 [facility] Pneumococcal 13 2016-01-06 Completed Universit y of Conjugate, PCV13 00:00:00 [place] [facility] (Prevnar 13) Branch Influenza High Dose 2016-01-06 Completed [facility]ive rsity of 00:00:00 [facility] Pneumococcal 13 2016-01-06 Completed Universit y of Conjugate, PCV13 00:00:00 [place] [facility] (Prevnar 13) Branch Influenza High Dose 2016-01-06 Completed Unive rsity of 00:00:00 [facility] Pneumococcal 13 2016-01-06 Completed Universit y of Conjugate, PCV13 00:00:00 [place] [facility] (Prevnar 13) Branch Influenza High Dose 2016-01-06 Completed [facility]ive rsity of 00:00:00 [facility] Pneumococcal 13 2016-01-06 Completed Universit y of Conjugate, PCV13 00:00:00 [place] [facility] (Prevnar 13) Branch Influenza High Dose 2016-01-06 Completed [facility]ive rsity of 00:00:00 [facility] Pneumococcal 13 2016-01-06 Completed Universit y of Conjugate, PCV13 00:00:00 [place] [facility] (Prevnar 13) Branch Influenza High Dose 2016-01-06 Completed [facility]ive rsity of 00:00:00 [facility] Pneumococcal 13 2016-01-06 Completed Universit y of Conjugate, PCV13 00:00:00 [place] [facility] (Prevnar 13) Branch Influenza High Dose 2016-01-06 Completed [facility]ive rsity of 00:00:00 [facility] Pneumococcal 13 2016-01-06 Completed Universit y of Conjugate, PCV13 00:00:00 [place] [facility] (Prevnar 13) Branch Influenza High Dose 2016-01-06 Completed [facility]ive rsity of 00:00:00 [facility] Pneumococcal 13 2016-01-06 Completed Universit y of Conjugate, PCV13 00:00:00 [place] [facility] (Prevnar 13) Branch Influenza High Dose 2016-01-06 Completed [facility]ive rsity of 00:00:00 [facility] Pneumococcal 13 2016-01-06 Completed Universit y of Conjugate, PCV13 00:00:00 [place] [facility] (Prevnar 13) Branch Influenza High Dose 2016-01-06 Completed [facility]ive rsity of 00:00:00 [facility] Pneumococcal 13 2016-01-06 Completed Universit y of Conjugate, PCV13 00:00:00 [place] [facility] (Prevnar 13) Branch Influenza High Dose 2016-01-06 Completed [facility]ive rsity of 00:00:00 [facility] Pneumococcal 13 2016-01-06 Completed Universit y of Conjugate, PCV13 00:00:00 [place] [facility] (Prevnar 13) Branch Influenza High Dose 2016-01-06 Completed [facility]ive rsity of 00:00:00 [facility] Pneumococcal 13 2016-01-06 Completed Universit y of Conjugate, PCV13 00:00:00 [place] [facility] (Prevnar 13) Branch Influenza High Dose 2016-01-06 Completed [facility]ive rsity of 00:00:00 [facility] Pneumococcal 13 2016-01-06 Completed Universit y of Conjugate, PCV13 00:00:00 [place] [facility] (Prevnar 13) Branch Influenza High Dose 2016-01-06 Completed [facility]ive rsity of 00:00:00 [facility] Pneumococcal 13 2016-01-06 Completed Universit y of Conjugate, PCV13 00:00:00 [place] [facility] (Prevnar 13) Branch Influenza High Dose 2016-01-06 Completed [facility]ive rsity of 00:00:00 [facility] Pneumococcal 13 2016-01-06 Completed Universit y of Conjugate, PCV13 00:00:00 [place] [facility] (Prevnar 13) Branch Influenza High Dose 2016-01-06 Completed [facility]ive rsity of 00:00:00 [facility] Pneumococcal 13 2016-01-06 Completed Universit y of Conjugate, PCV13 00:00:00 [place] [facility] (Prevnar 13) Branch Influenza High Dose 2016-01-06 Completed [facility]ive rsity of 00:00:00 [facility] Pneumococcal 13 2016-01-06 Completed Universit y of Conjugate, PCV13 00:00:00 [place] [facility] (Prevnar 13) Branch Influenza High Dose 2016-01-06 Completed Unive rsity of 00:00:00 [facility] Pneumococcal 13 2016-01-06 Completed Universit y of Conjugate, PCV13 00:00:00 [place] [facility] (Prevnar 13) Branch Influenza High Dose 2016-01-06 Completed [facility]ive rsity of 00:00:00 [facility] Pneumococcal 13 2016-01-06 Completed Universit y of Conjugate, PCV13 00:00:00 [place] [facility] (Prevnar 13) Branch Influenza High Dose 2016-01-06 Completed Unive rsity of 00:00:00 [facility] Pneumococcal 13 2016-01-06 Completed Universit y of Conjugate, PCV13 00:00:00 [place] [facility] (Prevnar 13) Branch Influenza High Dose 2016-01-06 Completed [facility]ive rsity of 00:00:00 [facility] Pneumococcal 13 2016-01-06 Completed Universit y of Conjugate, PCV13 00:00:00 [place] [facility] (Prevnar 13) Branch Influenza High Dose 2016-01-06 Completed [facility]ive rsity of 00:00:00 [facility] Pneumococcal 13 2016-01-06 Completed Universit y of Conjugate, PCV13 00:00:00 [place] [facility] (Prevnar 13) Branch Influenza High Dose 2016-01-06 Completed [facility]ive rsity of 00:00:00 [facility] Pneumococcal 13 2016-01-06 Completed Universit y of Conjugate, PCV13 00:00:00 [place] [facility] (Prevnar 13) Branch Influenza High Dose 2016-01-06 Completed [facility]ive rsity of 00:00:00 [facility] Pneumococcal 13 2016-01-06 Completed Universit y of Conjugate, PCV13 00:00:00 [place] [facility] (Prevnar 13) Branch Influenza High Dose 2016-01-06 Completed [facility]ive rsity of 00:00:00 [facility] Pneumococcal 13 2016-01-06 Completed Universit y of Conjugate, PCV13 00:00:00 [place] [facility] (Prevnar 13) Branch Influenza High Dose 2016-01-06 Completed [facility]ive rsity of 00:00:00 [facility] Pneumococcal 13 2016-01-06 Completed Universit y of Conjugate, PCV13 00:00:00 [place] [facility] (Prevnar 13) Branch Influenza High Dose 2016-01-06 Completed [facility]ive rsity of 00:00:00 [facility] Pneumococcal 13 2016-01-06 Completed Universit y of Conjugate, PCV13 00:00:00 [place] [facility] (Prevnar 13) Branch Influenza High Dose 2016-01-06 Completed [facility]ive rsity of 00:00:00 [facility] Pneumococcal 13 2016-01-06 Completed Universit y of Conjugate, PCV13 00:00:00 [place] [facility] (Prevnar 13) Branch Influenza High Dose 2016-01-06 Completed [facility]ive rsity of 00:00:00 [facility] Pneumococcal 13 2016-01-06 Completed Universit y of Conjugate, PCV13 00:00:00 [place] [facility] (Prevnar 13) Branch Influenza High Dose 2015-01-01 Completed [facility]ive rsity of 00:00:00 [facility] Influenza High Dose 2015-01-01 Completed Unive rsity of 00:00:00 [facility] Influenza High Dose 2015-01-01 Completed [facility]ive rsity of 00:00:00 [facility] Influenza High Dose 2015-01-01 Completed [facility]ive rsity of 00:00:00 [facility] Influenza High Dose 2015-01-01 Completed [facility]ive rsity of 00:00:00 [facility] Influenza High Dose 2015-01-01 Completed [facility]ive rsity of 00:00:00 [facility] Influenza High Dose 2015-01-01 Completed Unive rsity of 00:00:00 [facility] Influenza High Dose 2015-01-01 Completed Unive rsity of 00:00:00 [facility] Influenza High Dose 2015-01-01 Completed Unive rsity of 00:00:00 [facility] Influenza High Dose 2015-01-01 Completed Unive rsity of 00:00:00 [facility] Influenza High Dose 2015-01-01 Completed Unive rsity of 00:00:00 [facility] Influenza High Dose 2015-01-01 Completed Unive rsity of 00:00:00 [facility] Influenza High Dose 2015-01-01 Completed Unive rsity of 00:00:00 [facility] Influenza High Dose 2015-01-01 Completed Unive rsity of 00:00:00 [facility] Influenza High Dose 2015-01-01 Completed Unive rsity of 00:00:00 [facility] Influenza High Dose 2015-01-01 Completed Unive rsity of 00:00:00 [facility] Influenza High Dose 2015-01-01 Completed Unive rsity of 00:00:00 [facility] Influenza High Dose 2015-01-01 Completed Unive rsity of 00:00:00 [facility] Influenza High Dose 2015-01-01 Completed Unive rsity of 00:00:00 [facility] Influenza High Dose 2015-01-01 Completed Unive rsity of 00:00:00 [facility] Influenza High Dose 2015-01-01 Completed Unive rsity of 00:00:00 [facility] Influenza High Dose 2015-01-01 Completed Unive rsity of 00:00:00 [facility] Influenza High Dose 2015-01-01 Completed [facility]ive rsity of 00:00:00 [facility] Influenza High Dose 2015-01-01 Completed [facility]ive [facility]ity of 00:00:00 [facility] Influenza High Dose 2015-01-01 Completed Unive rsity of 00:00:00 [facility] Influenza High Dose 2015-01-01 Completed [facility]ive [facility]ity of 00:00:00 [facility] Influenza High Dose 2015-01-01 Completed [facility]ive rsity of 00:00:00 [facility] Influenza High Dose 2015-01-01 Completed [facility]ive rsity of 00:00:00 [facility] Influenza High Dose 2015-01-01 Completed [facility]ity of 00:00:00 [facility] Influenza High Dose 2015-01-01 Completed [facility]ive rsity of 00:00:00 [facility] Influenza High Dose 2015-01-01 Completed Unive rsity of 00:00:00 [facility] Influenza High Dose 2015-01-01 Completed Unive rsity of 00:00:00 [facility] Influenza High Dose 2015-01-01 Completed Unive rsity of 00:00:00 [facility] Influenza High Dose 2015-01-01 Completed Unive rsity of 00:00:00 [facility] Vital Signs Vital Name Observation Time Observation Value Comments Source HEIGHT 2020-05-25 05:50:00 175.3 cm WEIGHT 2020-05-25 05:50:00 76.749 kg HEIGHT 2020-05-19 14:27:00 175.3 cm WEIGHT 2020-05-19 14:27:00 74.844 kg Systolic blood 2022-11-19 20:03:00 159 mm[Hg] Univer sity of pressure [facility] Diastolic blood 2022-11-19 20:03:00 82 mm[Hg] Unive rsity of pressure [facility] Heart rate 2022-11-19 20:03:00 90 /min Univers[facility] ty [facility] Body temperature 2022-11-19 20:03:00 37.61 Yin Univ ersity of [facility] Respiratory rate 2022-11-19 20:03:00 24 /min Univ ersity of [facility] Body height 2022-11-19 20:03:00 175.3 cm Universi ty [facility] Body weight 2022-11-19 20:03:00 75.751 kg Universi ty [facility] BMI 2022-11-19 20:03:00 24.66 kg/m2 [facility] [place] [facility] Oxygen saturation in 2022-11-19 20:03:00 97 /min University of Arterial blood by [facility] melita Pulse oximetry Branch Systolic blood 2022-11-14 14:06:00 161 mm[Hg] Univer sity of pressure [facility] Diastolic blood 2022-11-14 14:06:00 83 mm[Hg] Unive rsity of pressure [facility] Heart rate 2022-11-14 14:05:00 72 /min [facility] Respiratory rate 2022-11-14 14:05:00 18 /min [facility] Body height 2022-11-14 14:05:00 175.3 cm [facility] Body weight 2022-11-14 14:05:00 74.208 kg [facility] BMI 2022-11-14 14:05:00 24.16 kg/m2 [facility] Oxygen saturation in 2022-11-14 14:05:00 98 /min University of Arterial blood by [facility] Pulse oximetry Branch Systolic blood 2022-06-14 15:16:00 134 mm[Hg] Univer sity of pressure [facility] Diastolic blood 2022-06-14 15:16:00 72 mm[Hg] Unive rsity of pressure [facility] Heart rate 2022-06-14 15:16:00 45 /min [facility] Body height 2022-06-14 15:08:00 175.3 cm [facility] Body weight 2022-06-14 15:08:00 79.47 kg [facility] BMI 2022-06-14 15:08:00 25.87 kg/m2 [facility] Oxygen saturation in 2022-06-14 15:08:00 96 /min [facility] of Arterial blood by [facility] melita Pulse oximetry Branch Height 2022-04-25 00:00:00 69 [in_i] [facility] BMI (Body Mass 2022-04-25 00:00:00 24.7 kg/m2 [facility] Body Weight 2022-04-25 00:00:00 167 [lb_av] [facility] Systolic blood 2022-04-05 15:50:00 147 mm[Hg] [facility]iver [facility]ity of pressure [facility] [place] Diastolic blood 2022-04-05 15:50:00 66 mm[Hg] Unive rsity of pressure [facility] Heart rate 2022-04-05 15:49:00 51 /min [facility] [place] Body height 2022-04-05 15:49:00 175.3 cm [facility] [place] Body weight 2022-04-05 15:49:00 78.382 kg [facility] BMI 2022-04-05 15:49:00 25.52 kg/m2 Universi ty of [facility] Oxygen saturation in 2022-04-05 15:49:00 97 /min University of Arterial blood by [place] [employer] Pulse oximetry Branch Systolic blood 2022-03-30 18:42:00 129 mm[Hg] Univer sity of pressure [facility] Diastolic blood 2022-03-30 18:42:00 67 mm[Hg] Unive rsity of pressure [facility] Heart rate 2022-03-30 18:42:00 55 /min [facility] [place] Body temperature 2022-03-30 18:42:[address] [facility] ersity [facility] Respiratory rate 2022-03-30 18:42:00 16 /min Univ ersity [facility] Body height 2022-03-30 18:42:00 175.3 cm [facility] [place] Body weight 2022-03-30 18:42:00 76.204 kg [facility] BMI 2022-03-30 18:42:00 24.81 kg/m2 [facility] Oxygen saturation in 2022-03-30 18:42:00 100 /min [facility] of Arterial blood by [employer] melita Pulse oximetry Branch Height 2022-02-28 00:00:00 69 [in_i] [facility] BMI (Body Mass 2022-02-28 00:00:00 23.9 kg/m2 [facility] Body Weight 2022-02-28 00:00:00 162 [lb_av] [facility] Systolic blood 2022-01-31 19:14:00 131 mm[Hg] Univer [facility]ity of pressure [facility] Diastolic blood 2022-01-31 19:14:00 72 mm[Hg] Unive rsity of pressure [facility] Heart rate 2022-01-31 19:14:00 49 /min [facility] Body temperature 2022-01-31 19:14:00 36.83 Yin [facility] Respiratory rate 2022-01-31 19:14:00 16 /min [facility] Body weight 2022-01-31 19:14:00 75.751 kg [facility] BMI 2022-01-31 19:14:00 24.66 kg/m2 [facility] Oxygen saturation in 2022-01-31 19:14:00 97 /min [facility] Arterial blood by [place] [employer] [facility] Pulse oximetry Branch Height 2022-01-21 00:00:00 69 [in_i] [facility] BMI (Body Mass 2022-01-21 00:00:00 24.4 kg/m2 [facility] Body Weight 2022-01-21 00:00:00 165 [lb_av] [facility] Systolic blood 2022-01-12 12:51:00 184 mm[Hg] Univer [facility]ity of pressure [facility] Diastolic blood 2022-01-12 12:51:00 70 mm[Hg] Unive rsity of pressure [facility] Heart rate 2022-01-12 12:50:00 42 /min [facility] Body height 2022-01-12 12:50:00 175.3 cm [facility] Body weight 2022-01-12 12:50:00 75.342 kg [facility] BMI 2022-01-12 12:50:00 24.53 kg/m2 [facility] Oxygen saturation in 2022-01-12 12:50:00 97 /min [facility] Arterial blood by [place] [employer] melita Pulse oximetry Branch Systolic blood 2021-12-14 19:24:00 136 mm[Hg] Univer sity of pressure [facility] Diastolic blood 2021-12-14 19:24:00 82 mm[Hg] Unive rsity of pressure [facility] Heart rate 2021-12-14 19:13:00 76 /min Universi ty of [facility] Body temperature 2021-12-14 19:13:00 36.72 Yin Univ [facility] of [facility] Respiratory rate 2021-12-14 19:13:00 18 /min Univ ersity of [facility] Body height 2021-12-14 19:13:00 175.3 cm [facility] [place] Body weight 2021-12-14 19:13:00 76.567 kg [facility] of [facility] BMI 2021-12-14 19:13:00 24.93 kg/m2 [facility] of [facility] Systolic blood 2021-05-14 16:25:00 122 mm[Hg] Univer sity of pressure [facility] Diastolic blood 2021-05-14 16:25:00 69 mm[Hg] Unive rsity of pressure [facility] Heart rate 2021-05-14 16:25:00 58 /min [facility]i [facility] of [facility] Body temperature 2021-05-14 16:25:00 36.33 Yin Univ [facility] Body height 2021-05-14 16:25:00 175.3 cm [facility] [place] [facility] [place] Body weight 2021-05-14 16:25:00 74.571 kg [facility]i ty of [facility] BMI 2021-05-14 16:25:00 24.28 kg/m2 [facility] ty of [facility] Oxygen saturation in 2021-05-14 16:25:00 95 /min [facility] Arterial blood by [facility] Pulse oximetry Branch HEIGHT 2020-05-25 05:50:00 175.3 cm WEIGHT 2020-05-25 05:50:00 76.749 kg HEIGHT 2020-05-19 14:27:00 175.3 cm WEIGHT 2020-05-19 14:27:00 74.844 kg WEIGHT 2020-05-22 08:40:00 76.204 kg HEIGHT 2020-05-22 08:40:00 175.3 cm WEIGHT 2020-05-22 08:40:00 76.204 kg HEIGHT 2020-05-22 08:40:00 175.3 cm Systolic blood 2020-05-26 11:00:00 132 mm[Hg] [facility] Diastolic blood 2020-05-26 11:00:00 64 mm[Hg] [facility] Heart rate 2020-05-26 11:00:00 60 /min [facility] Body temperature 2020-05-26 11:00:00 36 Yin [facility] Respiratory rate 2020-05-26 11:00:00 18 /min [facility] Oxygen saturation in 2020-05-26 11:00:00 95 /min [facility] Arterial blood by [facility] Pulse oximetry Body height 2020-05-25 05:50:00 175.3 cm [facility] Body weight 2020-05-25 05:50:00 76.749 kg [facility] BMI 2020-05-25 05:50:00 24.99 kg/m2 [facility] Procedures Procedure Date / Time Performing Clinician Source Performed EXTERNAL PROVIDER 2022-11-11 05:01:00 Doctor Unassigned, No Univ [facility] RECORDS Name Medical Branch [id number] 2022-10-18 00:00:00 SAEMO [facility] [id number] 2022-10-18 00:00:00 SAEMO [facility] [id number] 2022-10-18 00:00:00 SAEMO [facility] [id number] 2022-10-12 00:00:00 ALKNE [facility] [id number] 2022-10-12 00:00:00 ALKNE [facility] [id number] 2022-10-12 00:00:00 ALKNE [facility] [id number] 2022-10-11 00:00:00 RASSA [facility] [id number] 2022-10-11 00:00:00 RASSA [facility] [id number] 2022-10-11 00:00:00 RASSA [facility] [id number] 2022-10-11 00:00:00 RASSA [facility] [facility] [id number] 2022-10-11 00:00:00 CELINAA REY [facility] PATIENT FINANCIAL 2022-06-14 14:53:19 Doctor Unassigned, No [facility] POLICY Name Medical Branch REFERRAL- 2022-05-25 06:01:00 Doctor Unassigned, No [facility] REQUEST/RESPONSE Name Medical Branch CT TRAUMA HEAD WO 2022-03-30 19:22:21 Lory Rubio [facility] CONTRAST Medical Branch CT TRAUMA CERVICAL 2022-03-30 19:22:21 Lory Rubio [facility] SPINE WO CONTRAST Medical Branch XR SHOULDER 2+ VW LEFT 2022-03-30 19:11:43 Lory Rubio Un [facility] CONSENT/REFUSAL FOR 2022-03-30 18:29:43 Doctor Unassigned, [facility] Medical Branch CONSENT/REFUSAL FOR 2022-03-07 19:52:12 Doctor Unassigned, No Un [facility] DIAGNOSIS AND TREATMENT [facility] Medical [place] ASSIGNMENT OF BENEFITS 2022-01-12 12:41:55 Doctor Unassigned, No [facility] FLU 2021-12-14 15:33:03 Doctor Unassigned, No [facility] VACC(),65+YR,0 [facility] Medical Branch .5 ML,IM,ADJUVANTED,QUAD(F LUAD) EXTERNAL COLONOSCOPY 2021-06-24 20:24:00 Doctor Unassigned, No [facility]U 2021-05-14 16:44:00 Nery Bonilla [facility] CBC (HEMOGRAM ONLY) 2020-05-26 04:35:00 Luis Mirza [facility] BASIC METABOLIC PANEL 2020-05-26 04:35:00 OnLuis hayden [facility] (7) [facility] TISSUE EXAM 2020-05-25 08:42:00 John Paul Lakhani [facility] ENDARTERECTOMY,CAROTID 2020-05-25 07:09:00 John Paul Lakhani [facility] ABORH, MANUAL 2020-05-25 06:30:00 Radha White [facility] POCT-GLUCOSE METER 2020-05-25 05:53:00 AprilJohn Paul [facility] BASIC METABOLIC PANEL 2020-05-22 09:55:00 Pretty Roberts [facility] (7) [place] CBC W/PLT COUNT & AUTO 2020-05-22 09:55:00 Debontjoe [facility] DIFFERENTIAL Center PROTHROMBIN TIME/INR 2020-05-22 09:55:00 Alejandra [facility] TYPE AND SCREEN, 2020-05-22 09:55:00 DebPretty knowles [facility] AUTOMATED Center SARS-COV2/RT-PCR ([facility] 2020-05-22 09:41:00 Debontjoe, [facility] & REF LABS) Center ECG 12-LEAD 2020-05-22 09:39:47 Unknown, Hl7 Doctor [facility] Plan of Care Planned Activity Planned Date Details Comments Source Future Scheduled Test 2022-11-25 Influenza Vaccine [facility] 00:[facility]:00 (#1) [code = [facility] Influenza Vaccine (#1)] Future Scheduled Test 2022-11-25 Influenza Vaccine [facility] 00:00:00 (#1) [code = [facility] Influenza Vaccine (#1)] Future Scheduled Test 2022-11-25 Influenza Vaccine [facility] 00:00:00 (#1) [code = [facility] Influenza Vaccine (#1)] Future Scheduled Test 2022-11-25 Influenza Vaccine [facility] 00:00:00 (#1) [code = [facility] Influenza Vaccine (#1)] Future Scheduled Test 2022-03-[address] [facility] 00:00:00 (12+) [code = [facility] DEPRESSION SCREENING (12+)] Future Scheduled Test 2022-03-27 FALLS RISK SCREENING [facility] 00:00:00 [code = FALLS RISK Medical enter SCREENING] Future Scheduled Test 2022-03-[address] [facility] 00:00:00 (12+) [code = Medical Center DEPRESSION SCREENING (12+)] Future Scheduled Test 2022-03-27 FALLS RISK SCREENING [facility] 00:00:00 [code = FALLS RISK Medical C enter SCREENING] Future Scheduled Test 2022-03-[address] [facility] 00:00:00 (12+) [code = Medical Center DEPRESSION SCREENING (12+)] Future Scheduled Test 2022-03-27 FALLS RISK SCREENING [facility] 00:00:00 [code = FALLS RISK Medical C enter SCREENING] Future Scheduled Test 2022-03-[address] [facility] 00:00:00 (12+) [code = Medical Center DEPRESSION SCREENING (12+)] Future Scheduled Test 2022-03-27 FALLS RISK SCREENING [facility] 00:00:00 [code = FALLS RISK Medical C enter SCREENING] Future Scheduled Test 2021-11-[address] [facility] 00:00:00 (#1) [code = [facility] INFLUENZA VACCINE (#1)] Future Scheduled Test 2021-11-[address] [facility] 00:00:00 (#1) [code = [facility] INFLUENZA VACCINE (#1)] Future Scheduled Test 2021-05-[address] [facility] 00:00:00 Counseling and Medical Cente r Screening (12+) [code = Tobacco Cessation Counseling and Screening (12+)] Future Scheduled Test 2021-05-[address] [facility] 00:00:00 Counseling and Medical Cente r Screening (12+) [code = Tobacco Cessation Counseling and Screening (12+)] Future Scheduled Test 2021-05-[address] [facility] 00:00:00 Counseling and Medical Cente r Screening (12+) [code = Tobacco Cessation Counseling and Screening (12+)] Future Scheduled Test 2021-05-[address] [facility] 00:00:00 Counseling and Medical Cente r Screening (12+) [code = Tobacco Cessation Counseling and Screening (12+)] Future Scheduled Test 2021-03-27 DEPRESSION SCREENING [facility] [...] Medica l Center colon (procedure) [code = 496760370] Future Scheduled Test [facility] malignant neoplasm of Medica [facility] Center colon (procedure) [code = 759765383] Future Scheduled Test 1947 DXA SCAN [code = DXA [facility] 00:00:00 SCAN] [facility] Future Scheduled Test 1947 [facility] malignant neoplasm of [facility] Center colon (procedure) [code = 376866775] Future Scheduled Test 1947 [facility]00 malignant neoplasm of Medica [facility] Center colon (procedure) [code = 998041113] Future Scheduled Test 1947 Sigmoidoscopy [code = [facility] 00:00:00 Sigmoidoscopy] [facility] r Future Scheduled Test 1947 [facility]00 malignant neoplasm of Medica l Center breast (procedure) [code = 828888530] Future Scheduled Test [address] [facility] 00:00:00 (combo) [code = CT Medical C enter Colonography (combo)] Future Scheduled Test 1947 [facility]00 malignant neoplasm of [facility]ica [facility] Center colon (procedure) [code = 124379779] Future Scheduled Test 1947 [facility]:00 malignant neoplasm of [facility]ica [facility] Center colon (procedure) [code = 279692334] Future Scheduled Test 1947 DXA SCAN [code = DXA [facility] 00:00:00 SCAN] [facility] Future Scheduled Test 1947 [facility]:00 malignant neoplasm of [facility]ica [facility] Center colon (procedure) [code = 678941230] Future Scheduled Test 1947 [facility]:00 malignant neoplasm of [facility]ica [facility] Center colon (procedure) [code = 928429531] Future Scheduled Test 1947 Sigmoidoscopy [code = [facility] 00:00:00 Sigmoidoscopy] Medical Cente r Future Scheduled Test [address] [facility] 00:00:00 (combo) [code = CT Medical C enter Colonography (combo)] Future Scheduled Test 1947 [facility]:00 malignant neoplasm of Medica l Center colon (procedure) [code = 421994948] Future Scheduled Test 1947 [facility]:00 malignant neoplasm of Medica l Center colon (procedure) [code = 303971051] Future Scheduled Test 1947 DXA SCAN [code = DXA [facility] 00:00:00 SCAN] [facility] Future Scheduled Test 1947 [facility]:00 malignant neoplasm of Medica l Center colon (procedure) [code = 750669852] Future Scheduled Test 1947 [facility]:00 malignant neoplasm of Medica l Center colon (procedure) [code = 634686451] Future Scheduled Test 1947 Sigmoidoscopy [code = [facility] 00:00:00 Sigmoidoscopy] [facility] r Future Scheduled Test [address] [facility] 00:00:00 (combo) [code = CT Medical C enter Colonography (combo)] Future Scheduled Test 1947 [facility]:00 malignant neoplasm of Medica l Center colon (procedure) [code = 094212235] Future Scheduled Test 1947 [facility] 00:00:00 malignant neoplasm of Medica l Center colon (procedure) [code = 941279014] Future Scheduled Test 1947 DXA SCAN [code = DXA [facility] 00:00:00 SCAN] [facility] Future Scheduled Test 1947 [facility]:00 malignant neoplasm of Medica l Center colon (procedure) [code = 631544511] Future Scheduled Test 1947 [facility] 00:00:00 malignant neoplasm of Medica l Center colon (procedure) [code = 172489757] Future Scheduled Test 1947 Sigmoidoscopy [code = [facility] 00:00:00 Sigmoidoscopy] [facility] Test [address] [facility] 00:00:00 (combo) [code = CT Medical C enter Colonography (combo)] Future Scheduled Test 1947 [facility]:00 malignant neoplasm of Medica l Center colon (procedure) [code = 087120475] Future Scheduled Test 1947 [facility] 00:00:00 malignant neoplasm of [facility] Center colon (procedure) [code = 961390074] Future Scheduled Test 1947 DXA SCAN [code = DXA [facility] 00:00:00 SCAN] [facility] Future Scheduled Test 1947 [facility] 00:[facility]:00 malignant neoplasm of Medica l Center colon (procedure) [code = 764510574] Future Scheduled Test 1947 [facility] 00:00:00 malignant neoplasm of Medica l Center colon (procedure) [code = 419221617] Future Scheduled Test 1947 Sigmoidoscopy [code = [facility] 00:00:00 Sigmoidoscopy] [facility] Test [facility]:00 malignant neoplasm of Medica l Center breast (procedure) [code = 850719794] Future Scheduled Test 1947 [facility]:00 malignant neoplasm of [facility]ica l Center colon (procedure) [code = 178164681] Future Scheduled Test 1947 [facility]:00 malignant neoplasm of [facility]ica [facility] Center breast (procedure) [code = 173605941] Future Scheduled Test [address] [facility] 00:00:00 (combo) [code = CT Medical C enter Colonography (combo)] Future Scheduled Test [address] [facility] 00:00:00 (combo) [code = CT Medical C enter Colonography (combo)] Future Scheduled Test 1947 [facility] 00:[facility]:00 malignant neoplasm of Medica l Center colon (procedure) [code = 507070462] Future Scheduled Test 1947 [facility] 00:00:00 malignant neoplasm of [facility] Center colon (procedure) [code = 127568457] Future Scheduled Test 1947 DXA SCAN [code = DXA [facility] 00:00:00 SCAN] [facility] Future Scheduled Test 1947 [facility] 00:[facility]:00 malignant neoplasm of [facility] l Center colon (procedure) [code = 867334841] Future Scheduled Test 1947 [facility] 00:00:00 malignant neoplasm of [facility]ica [facility] Center colon (procedure) [code = 666888412] Future Scheduled Test 1947 Sigmoidoscopy [code = [facility] 00:00:00 Sigmoidoscopy] [facility] Future Scheduled Test Improve quality of [facility] life [code = Improve Sports Medicine quality of life] Instructions [facility] Encounters Start End Encounter Admission Attending Care Care Encounter Source Date/Time Date/Time Type Type Clinicians Facility Department ID 2021-01-26 Emergency [facility] [id number] Univers 08:16:18 ity of [facility] 2021-01-25 Emergency [facility] [id number] Univers 23:15:55 ity [facility] 2021-01-25 Emergency [facility] [id number] Univers 18:11:00 ity [facility] 2021-01-21 Emergency [facility] [id number] Univers 13:11:06 ity [facility] 2021-01-02 Inpatient [facility] Surgery [id number] [facility] 03:58:35 JOHN PAUL 2022-11-19 2022-11-19 Nurse Nurse, Louie Chilel [facility] 1.2.840.114 [id number] Univers 15:15:00 15:35:00 Visit Unknown, [facility] [id number] ity of [place] 4.2.7.2.686 Julián as MEGHAN?BLEA [phone] [facility] [address] [place] MEDICAL OFFICE [facility] 2022-11-19 2022-11-19 Outpatient R UNKNOWN, [facility] [id number] Univers 15:15:00 15:15:00 ATTENDING itdinorah [facility] 2022-11-14 2022-11-14 [facility] 1.2.840.114 [id number] Univers 09:00:00 09:30:00 Visit [facility] [id number] it [facility] 4.2.7.2.686 Julián as MEGHAN?BLEA [phone] [address] OFFICE [facility] 2022-11-14 2022-11-14 Outpatient R RICKY [facility] [id number] Univers 09:00:00 09:00:00 CHEMA funk [facility] 2022-11-11 2022-11-11 Orders Doctor MAURILIO 1.2.840.114 [id number] Univers 00:00:00 00:00:00 Only Unassigned, FELICITA 350.1.13.10 ity of [place] [facility] 4.2.7.2.686 Julián as [phone] [address] 2022-11-03 2022-11-03 Telephone [facility] [id number] Univers 00:00:00 00:00:00 [facility] [id number] it y of [place] [id number] Julián as MEGHAN?BLEA [phone] Ok alexandra [facility] 044 [facility] OFFICE [facility] 2022-10-22 2022-10-28 Inpatient UR Dana, REY REHA [id number] [facility] 12:10:00 12:20:00 Yenny Vuong [facility] 2022-10-11 2022-10-22 Inpatient REY OttoCL INTE.02 [id number] [facility] 13:59:00 12:32:00 Dory 71 [facility] 2022-10-05 2022-10-05 Outpatient REY WilkinsTO PAIN [id number] [facility] 09:12:00 09:12:00 Yenny Rodgers [facility] 2022-08-30 2022-08-30 Telephone Ricky [facility] [id number] Univers 00:00:00 00:00:00 [facility] [id number] it y of [place] 4.2.7.2.686 Julián as MEGHAN?BLEA [phone] [address] OFFICE [facility] 2022-06-20 2022-06-20 Abstract [facility] 1.2.840.114 [id number] Univers 00:00:00 00:00:00 [facility] 350.1.13.10 it y [facility] 4.2.7.2.686 Julián as MEGHAN?BLEA [phone] [address] OFFICE [facility] 2022-06-14 2022-06-14 Office [facility] 1.2.840.114 [id number] Univers 10:15:00 10:30:00 Visit [facility] 350.1.13.10 it y of [place] 4.2.7.2.686 Julián as MEGHAN?BLEA [phone] [address] OFFICE [facility] 2022-06-14 2022-06-14 Outpatient R RICKY [facility] [id number] Univers 10:15:00 10:15:00 CHEMA funk [facility] 2022-06-14 2022-06-14 Orders Doctor MAURILIO 1.2.840.114 [id number] Univers 00:00:00 00:00:00 Only Unassigned, FELICITA 350.1.13.10 ity of [place] [facility] 4.2.7.2.686 Julián as [phone] [address] 2022-06-06 2022-06-06 [facility]phone [facility] [id number] Univers 00:00:00 00:00:00 [facility] 350.1.13.10 it y of [place] 4.2.7.2.686 Julián as MEGHAN?BLEA [phone] Ok dical ELLEN [address] [place] [address] MEDICAL OFFICE BUILDING 2022-05-25 2022-05-25 Orders Doctor MAURILIO 1.2.840.114 [id number] Univers 00:00:00 00:00:00 Only Unassigned, FELICITA 350.1.13.10 [facility] 4.2.7.2.686 Julián as [phone] [address] 2022-04-27 2022-04-27 Outpatient FOG_Halamic AOSM AOSM [id number] Pretty 00:00:00 00:00:00 ek_Mar_NP [id number] [facility] 2022-04-27 2022-04-27 Outpatient FOG_Halamic AOSM AOSM [id number] Pretty 00:00:00 00:00:00 ek_Mar_NP [id number] [facility] 2022-04-27 2022-04-27 Outpatient FOG_Halamic AOSM AOSM [id number] Pretty 00:00:00 00:00:00 ek_Mar_NP 220281 [facility] 2022-04-27 2022-04-27 Outpatient FOG_Halamic AOSM AOSM [id number] Pretty 00:00:00 00:00:00 ek_Mar_NP [id number] [facility] 2022-04-27 2022-04-27 Outpatient FOG_Halamic AOSM AOSM [id number] Pretty 00:00:00 00:00:00 ek_Mar_NP [id number] [facility] 2022-04-25 2022-04-25 Yajaira Black AOS[facility] [place] - Ortho 2022 129 Pretty 00:00:00 00:00:00 Nedra Fernandez Star - Or thope CASTING ASSISTANT: 74[address] FOG_Ofc dic [facility], [place] [address] , Ph. [phone] 2022-04-05 2022-04-05 Office [facility] 1.2.840.114 [id number] Univers 09:45:00 10:00:00 Visit Chema ECKERT 350.1.13.10 it y of [place] 4.2.7.2.686 Julián as MEGHAN?BLEA [phone] Ok alexandra GARCES [address] [place] [address] MEDICAL OFFICE BUILDING 2022-04-05 2022-04-05 Outpatient [facility] [id number] Univers 09:45:00 09:45:00 CHEMA funk [facility] 2022-03-30 2022-03-30 Emergency X [facility] ERT [id number] Univers 12:43:00 14:48:00 LORY funk [facility] 2022-03-30 2022-03-30 Emergency [facility] 1.2.840.114 [id number] Univers 12:43:00 14:48:00 Lory JADE 350.1.13.10 ity of [place] 4.2.7.2.686 [facility] [phone] [facility] [address] [place] 2022-03-07 2022-03-07 Outpatient Jarad [facility] [id number] Univers 13:52:45 23:59:00 CHEMA funk [facility] 2022-03-07 2022-03-07 [facility] 1.2.840.114 [id number] Univers 13:52:45 23:59:00 Encounter Chema JADE 350.1.13.10 ity of [place] 4.2.7.2.686 [facility] [phone] [facility] [address] [place] 2022-03-07 2022-03-07 Orders Doctor MAURILIO 1.2.840.114 [id number] Univers 00:00:00 00:00:00 Only Unassigned, FELICITA 350.1.13.10 ity of [place] [facility] 4.2.7.2.686 Julián as [phone] [facility] [address] 2022-02-28 2022-02-28 Outpatient FOG_Halamic AOSM AOSM [id number] Pretty 00:00:00 00:00:00 ek_Mar_NP 332907 [facility] 2022-02-28 2022-02-28 Outpatient FOG_Halamic AOSM AOSM [id number] Pretty 00:00:00 00:00:00 ek_Mar_NP 855245 [facility] 2022-02-28 2022-02-28 Outpatient FOG_Halamic AOSM AOSM [id number] Pretty 00:00:00 00:00:00 ek_Mar_NP 675976 [facility] 2022-02-28 2022-02-28 Yajaira Black [facility] [place] - Ortho 2021 1205 Pretty 00:00:00 00:00:00 Nedra Fernandez Or carlos CASTING ASSISTANT: 7401 FOG_Ofc dic [facility], [facility] [place] [address] , Ph. [phone] 2022-02-07 2022-02-07 Outpatient REY WilkinsTO PAIN [id number] [facility] 08:26:00 08:26:00 Yenny Banuelos [facility] 2022-02-07 2022-02-07 Outpatient FOG_Halamic AOSM AOSM [id number] Pretty 00:00:00 00:00:00 ek_Mar_NP [id number] [facility] 2022-02-07 2022-02-07 Yenny Webb [facility] [place] - Ortho 114 Pretty 00:00:00 00:00:00 Nedra Boone MD: 7401 FOG_[place] dic [facility]_OP [facility] [place] [address] , Ph. 2022-02-02 2022-02-02 Telephone Ricky [facility] [id number] Univers 00:00:00 00:00:00 [facility] 350.1.13.10 it y of [place] 4.2.7.2.686 Julián as MEGHAN?BLEA [phone] Ok dical [address] MEDICAL OFFICE BUILDING 2022-01-31 2022-01-31 Urgent Maurilio Whittaker [facility] 1.2.840.114 [id number] Univers 12:40:00 13:00:00 Care Unknown, Attending [facility].1.13.10 [facility] 4.2.7.2.686 Julián as MEGHAN?BLEA [phone] Ok dical [address] MEDICAL OFFICE BUILDING 2022-01-31 2022-01-31 Outpatient Jarad WHITTAKER [facility] [id number] Univers 12:40:00 12:40:00 MAURILIO [facility] 2022-01-24 2022-01-24 Outpatient FIDEL Boone HCATO [id number] [facility] 20:30:00 20:30:00 Yenny 00 [place] [facility] 2022-01-24 2022-01-24 Outpatient FIDEL Wilkins PAIN [id number] [facility] 14:21:00 14:21:00 Yenny Bashir [place] [facility] 2022-01-24 2022-01-24 Outpatient FOG_Halamic AOSM AOSM [id number] Pretty 00:00:00 00:00:00 ek_Mar_NP 211647 Orth [facility] 2022-01-24 2022-01-24 Yenny Webb AOSM [place] - Ortho Pretty 00:00:00 00:00:00 Nedra Boone Or carlos MD: 7401 FOG_[place] dic [facility]_OP [facility] [address] , Ph. 2022-01-21 2022-01-21 Outpatient FOG_Halamic AOSM AOSM [id number] Pretty 00:00:00 00:00:00 ek_Mar_NP 188346 Orth [facility] 2022-01-21 2022-01-21 Yajaira Black [facility]OS[facility] [place] - [place] 2021 1027 Pretty 00:00:00 00:00:00 Nedra Fernandez Or carlos CASTING ASSISTANT: 7401 FOG[facility] [address] , Ph. [phone] 2022-01-19 2022-01-19 Outpatient FOG_Halamic AOSM AOSM [id number] Pretty 00:00:00 00:00:00 ek_Mar_NP [id number] Orth ope dic [facility] Medicin [facility] 2022-01-19 2022-01-19 Patient Donna [facility] 1.2.840.114 [id number] Univers 00:00:00 00:00:00 Outreach [facility] 350.1.13.10 i ty of [place] 4.2.7.2.686 Julián as MEGHAN?BLEA [phone] [address] MEDICAL OFFICE [facility] 2022-01-12 2022-01-12 Internal Medicine Nurse Practitioner Lab, Ang - Db [facility] 1.2.840.1 [id number] Univers 08:15:00 08:30:00 Visit Ricky [facility] 350.1.13.10 ity of [place] 4.2.7.2.686 Julián as MEGHAN?BLEA [phone] [facility] 353 [facility] OFFICE [facility] 2022-01-12 2022-01-12 Outpatient R RICKY [facility] [id number] Univers 08:15:00 08:15:00 CHEMA good [facility] 2022-01-12 2022-01-12 [facility] 1.2.840.114 [id number] Univers 07:45:00 08:00:00 Visit [facility] 350.1.13.10 it y of [place] 4.2.7.2.686 Julián as MEGHAN?BLEA [phone] [address] OFFICE [facility] 2022-01-12 2022-01-12 Orders Doctor MAURILIO 1.2.840.114 [id number] Univers 00:00:00 00:00:00 Only Unassigned, FELICITA 350.1.13.10 ity of [place] [facility] 4.2.7.2.686 Julián as [id number] [address] 2022-01-12 2022-01-12 Telephone Ricky [facility] 1.2.006.171 [id number] Univers 00:00:00 00:00:00 [facility] 350.1.13.10 it y [facility] 4.2.7.2.686 Julián as MEGHAN?BLEA [phone] Ok dical DEZ [address] [place] [address] MEDICAL OFFICE [facility] 2021-12-14 2021-12-14 Outpatient R JADEN DOW [facility] [id number] Univers 14:00:00 14:54:56 ity of [facility] 2021-12-14 2021-12-14 Office Jaden Dow [facility] 1.2.840.114 [id number] Univers 14:00:00 14:54:56 Visit MARGARITO 350.1.13.10 it y of [place] [id number] [address] 2021-12-14 2021-12-14 Imm/Inj Nurse, Louie Chilel [facility] 1.2.840.114 [id number] Univers 11:00:00 11:20:00 Visit GarcíaChema snyder [facility] 350.1.13.10 ity of [place] 4.2.7.2.686 Julián as MEGHAN?BLEA [phone] Ok dical [address] MEDICAL OFFICE [facility] 2021-12-08 2021-12-08 Pre Visit CEASAR CorreaShay [id number] [id number] Univers 00:00:00 00:00:00 Outreach Sylvie MARTINEZ 350.1.13.10 [place].2.[place] [phone] [place] [address] [place] 2021-12-06 2021-12-06 Outpatient FOG_Halamic AOSM AOSM [id number] Pretty 00:00:00 00:00:00 ek_Mar_NP [id number] Orth ope dic Sports Medicin e 2021-10-05 2021-10-05 Outpatient R JADEN DOW [facility] [id number] Univers 09:00:00 09:00:00 ity [facility] 2021-10-05 2021-10-05 Outpatient R JADEN DOW [facility] [id number] Univers 09:00:00 09:00:00 ity [facility] 2021-10-05 2021-10-05 Outpatient R JADEN DOW [facility] [id number] Univers 09:00:00 09:00:00 ity [facility] 2021-10-04 2021-10-04 Outpatient R JADEN DOW [facility] [id number] Univers 10:30:00 10:30:00 ity [facility] 2021-09-28 2021-09-28 Pre Visit NIKI Correa 1.2.622.724 [id number] Univers 00:00:00 00:00:00 Outreach Sylvie MARTINEZ 350.1.13.10 [place] [phone] [address] 2021-06-16 2021-06-16 Lucia [facility] 1.2.840.114 [id number] Univers 00:00:00 00:00:00 Chema HEALTH 350.1.13.10 it y of [place] 4.2.7.2.686 Julián as MEGHAN?BLEA [phone] [address] MEDICAL OFFICE [facility] 2021-06-08 2021-06-08 Pre Visit NIKI Nam 1.2.840.114 [id number] Univers 00:00:00 00:00:00 Outreach Sharyn Sofia MARTINEZ 350.1.13.10 [place] [phone] [address] 2021-05-14 2021-05-14 Outpatient R IRENE [facility] [id number] Univers 10:30:00 12:15:44 NERY funk [facility] 2021-05-14 2021-05-14 Office [facility] 1.2.840.114 [id number] Univers 10:30:00 11:00:00 Visit Nery A HEALTH 350.1.13.10 i ty of [place] 4.2.7.2.686 Julián as MEGHAN?BLEA [phone] [address] MEDICAL OFFICE BUILDING 2021-05-14 2021-05-14 Outpatient R IRENE [facility] [id number] Univers 10:30:00 10:30:00 NERY funk [facility] 2021-05-12 2021-05-12 Internal Medicine Nurse Practitioner Darnell, Adc Lab Main [facility] 1.2.8 40.114 [id number] Univers 10:15:00 10:30:00 Visit Paris Franco MACY 350.1.13.10 ity of [place].2.[place] [phone] Ok dical NAL 353 [facility] 2021-05-12 2021-05-12 Outpatient R PARIS FRANCO [facility] [id number] Univers 10:15:00 10:15:00 ity of [facility] 2021-05-12 2021-05-12 Orders Doctor MAURILIO 1.2.840.114 [id number] Univers 00:00:00 00:00:00 Only Unassigned, FELICITA 350.1.13.10 ity of [place] [facility] 4.2.7.2.686 Julián as [phone] [address] 2021-05-04 2021-05-04 Outpatient MORGAN Boone, HCATO PAIN [id number] [facility] 10:22:00 10:22:00 Yenny [facility] 2021-04-20 2021-04-20 Outpatient MORGAN Boone HCATO PAIN [id number] [facility] 07:16:00 07:16:00 Yenny [facility] 2021-04-02 2021-04-02 Internal Medicine Nurse Practitioner Darnell, Adc Lab Main [facility] 1.2.8 40.114 [id number] Univers 08:30:00 08:45:00 Visit Yenny Wright 350.1.13.10 ity of [place] [phone] Ok dical NAL [address] [place] [address] 2021-04-02 2021-04-02 [facility] [id number] Univers 08:30:00 08:30:00 YENNY funk [facility] 2021-04-02 2021-04-02 Orders Doctor KAPADIA 1.2.840.114 [id number] Univers 00:00:00 00:00:00 Only Unassigned, FELICITA 350.1.13.10 ity of [place] [facility] 4.2.7.2.686 Julián as [phone] [address] 2021-02-09 2021-02-09 Telephone [facility] 1.2.314.744 [id number] Univers 00:00:00 00:00:00 [facility] 350.1.13.10 it [facility] 4.2.7.2.686 Julián as MEGHAN?BLEA [phone] [address] OFFICE [facility] 2021-02-05 2021-02-05 Orders Doctor MAURILIO 1.2.840.114 [id number] Univers 00:00:00 00:00:00 Only Unassigned, FELICITA 350.1.13.10 ity of [place] [facility] 4.2.7.2.686 Julián as [phone] [address] 2021-01-28 2021-01-28 Telephone [facility] 1.2.712.532 [id number] Univers 00:00:00 00:00:00 [facility] 350.1.13.10 it y [facility] 4.2.7.2.686 Julián as MEGHAN?BLEA [phone] [address] OFFICE [facility] 2021-01-27 2021-01-27 Imm/Inj Vaccine, Ang Db Cbc Fam [facility] 1. 2.840.114 [id number] Univers 09:06:47 09:16:47 Visit Chema García [facility] 350.1.13.10 ity of [place] 4.2.7.2.686 Julián as MEGHAN?BLEA [phone] [address] 2021-01-27 2021-01-27 Outpatient R GARCÍA [facility] [id number] Univers 09:10:00 09:10:00 [facility] 2021-01-27 2021-01-27 Internal Medicine Nurse Practitioner Lab, Ang - Db [facility] 1.2.840.1 14 [id number] Univers 08:43:23 08:58:23 Visit Chema García [facility] 350.1.13.10 ity of [place] 4.2.7.2.686 Julián as MEGHAN?BLEA [phone] [address] OFFICE [facility] 2021-01-272021-01-27 Office Ricky [facility] 1.2.840.114 [id number] Univers 07:50:24 08:20:24 Visit Chema [facility] 350.1.13.10 it y of [place] 4.2.7.2.686 Julián as MEGHAN?BLEA [phone] [address] MEDICAL OFFICE [facility] 2021-01-27 2021-01-27 Outpatient R GARCÍA [facility] [id number] Univers 08:00:00 08:00:00 CHEMA ity of [facility] 2021-01-27 2021-01-27 Telephone [facility] 1.2.806.740 [id number] Univers 00:00:00 00:00:00 [facility] 350.1.13.10 it y [facility] 4.2.7.2.686 Julián as MEGHAN?BLEA [phone] [address] OFFICE [facility] 2021-01-18 2021-01-18 Transition Niki Simmons 1.2.840.114 [id number] Univers 00:00:00 00:00:00 of Care Suzi Martinez 350.1.13.10 it y of [place]2.7.2.[place] [phone] [facility] [address] 2021-01-13 2021-01-15 [facility] Zay Nyasia [facility] 1.2.840. 114 [id number] Univers 11:42:00 19:15:00 Encounter Talon Zhang 350.1.13.10 ity of [place].2.7.2.686 [place] [phone] [facility] [address] 2021-01-14 2021-01-14 [facility] 1.2.840.114 [id number] Univers 13:25:00 13:59:00 Colin diaz 350.1.13.10 ity of [place].2.7.2.[place] Surgical [phone] [facility] [address] 2021-01-11 2021-01-11 Imm/Inj Nurse, Louie Chilel [facility] 1.2.840.114 [id number] Univers 10:04:24 10:24:24 Visit Chema García [facility] 350.1.13.10 ity of [place] 4.2.7.2.686 Julián as Meghan?Blea [phone] Ok alexandra garces [address] [place] [address] Medical Office Building 2021-01-11 2021-01-11 Outpatient R RICKY [facility] [id number] Univers 10:20:00 10:20:00 [place] ity [facility] 2020-12-17 2020-12-17 Hospital Rocky Down [facility] 1.2.840.114 [id number] Univers 08:58:01 23:59:00 Encounter Macy 350.1.13.10 ity of [place] 4.2.7.2.686 [facility] [phone] [facility] [address] [place] 2020-12-17 2020-12-17 Outpatient R JADEN DOW [facility] [id number] Univers 00:00:00 00:00:00 ity of [facility] 2020-12-10 2020-12-11 Emergency [facility] 1.2.331.890 [id number] Univers 22:08:00 00:12:00 Fatemeh Jade 350.1.13.10 ity of [place] 4.2.7.2.686 [facility] [phone] [facility] [address] [place] 2020-12-02 2020-12-02 Laboratory Only, Adc Test [facility] 1.2.840. 114 [id number] Univers 11:15:59 11:30:59 Only Yenny Wright 350.1.13.10 ity of [place] 4.2.7.2.686 [facility] [phone] [facility] [address] 2020-12-02 2020-12-02 Outpatient R SHALINI [facility] [id number] Univers 09:15:00 09:15:00 YENNY funk [facility] 2020-12-02 2020-12-02 Orders Doctor KAPADIA 1.2.840.114 [id number] Univers 00:00:00 00:00:00 Only Unassigned, FELICITA 350.1.13.10 ity of [place] [facility] 4.2.7.2.686 Julián as [phone] [facility] [address] [place] 2020-11-18 2020-11-19 Emergency [facility] 1.2.964.627 [id number] Univers 23:17:00 01:39:00 Javier Macy 350.1.13.10 i ty of [place] 4.2.7.2.[address] [facility] [phone] [facility] [address] 2020-11-18 2020-11-18 Outpatient MORGAN Ashton [facility] [id number] [facility] 06:29:00 06:29:00 Juan [facility] 2020-11-12 2020-11-12 Telephone MAURILIO Lorenzo 1Tigist2.215.513 5769 5791 [facility] 00:00:00 00:00:00 Alessandra MIMS 350.1.13.10 i ty of [facility] 4.2.7.2.686 Julián as [phone] [facility] [address] [place] 2020-11-12 2020-11-12 Telephone MAURILIO Lorenzo 1.2.477.738 [id number] 00:00:00 00:00:00 Alessandra MIMS 350.1.13.10 HOSPITAL 4.2.7.2.686 [id number] 019 2020-11-11 2020-11-11 Outpatient Jarad GEORGE [facility] [id number] Univers 09:00:00 09:00:00 [place] ity of [facility] 2020-10-14 2020-10-14 Orders Doctor KAPADIA 1Tigist2.840.114 [id number] [facility] 00:00:00 00:00:00 Only Unassigned, FELICITA 350.1.13.10 ity of [place] [facility] 4.2.7.2.686 Julián as [phone] [address] 2020-10-14 2020-10-14 Orders Doctor KAPADIA 1Tigist2.840.114 [id number] 00:00:00 00:00:00 Only UnassignedFELICITA 350.1.13.10 [place] [facility] 4.2.7.2.686 [id number] 009 2020-10-05 2020-10-05 Outpatient R JADEN DOW [facility] 404 [id number] Univers 09:30:00 09:30:00 ity [facility] 2020-10-05 2020-10-05 Orders Doctor MAURILIO 1.2.840.114 [id number] Univers 00:00:00 00:00:00 Only Unassigned, FELICITA 350.1.13.10 ity of [place] [facility] 4.2.7.2.686 Julián as [phone] [address] 2020-10-05 2020-10-05 Orders Doctor MAURILIO 1.2.840.114 [id number] 01 00:00:00 00:00:00 Only Unassigned, FELICITA 350.1.13.10 [place] [facility] 4.2.7.2.686 [id number] [facility] 2020-10-01 2020-10-01 Outpatient R JADEN DOW [facility] [id number] Univers 15:30:00 15:30:00 ity [facility] 2020-07-31 2020-07-31 Urgent Provider, Ang Urgent Care [facility] 1.2.840.114 [id number] Univers 17:32:33 18:06:34 Care [facility] 350.1.13. 10 ity of [place] 4.2.7.2.686 Julián as Professio [phone] Ok dical [address] Office Building One 2020-07-31 2020-07-31 Urgent Provider, [facility] 1.2.134.190 [id number] 0523 17:32:33 18:06:34 Care [facility] 350.1.13.10 Care [place] 4.2.7.2.686 Professio [phone] [place] [address] Office Building One 2020-07-31 2020-07-31 Outpatient R [facility] [id number] Univers 17:40:00 17:40:00 ity [facility] 2020-06-14 2020-06-14 Lucia García [facility] 1.2.840.114 [id number] Univers 00:00:00 00:00:00 [facility] 350.1.13.10 it y of [place] 4.2.7.2.686 Julián as Professio [phone] Me dical nal [address] [place] Office Building One 2020-06-14 2020-06-14 Reftamica García [facility] 1.2.840.114 [id number] 91 00:00:00 00:00:00 [facility] 350.1.13.10 [place] 4.2.7.2.686 Professio [phone] nal [facility] Office Building One 2020-06-10 2020-06-10 Orders Doctor MAURILIO 1.2.840.114 [id number] Univers 00:00:00 00:00:00 Only Unassigned, FELICITA 350.1.13.10 ity of [place] [facility] 4.2.7.2.686 Julián as [phone] [address] 2020-06-10 2020-06-10 Orders Doctor MAURILIO 1.2.840.114 [id number] 00:00:00 00:00:00 Only Unassigned, FELICITA 350.1.13.10 [place] [facility] 4.2.7.2.686 [id number] 009 2020-06-03 2020-06-03 Refill [facility] 1.2.840.114 [id number] Univers 00:00:00 00:00:[address] [facility] 350.1.13.10 it y of [place] 4.2.7.2.686 Julián as Professio [phone] Ok dical nal [address] [place] Office Building One 2020-06-03 2020-06-03 Reftamica Ricky [facility] 1.2.840.114 [id number] 56 00:00:00 00:00:[address] [facility] 350.1.13.10 [place] 4.2.7.2.686 Professio [phone] nal [facility] Office Building One 2020-06-01 2020-06-01 Patient Ron [facility] 1.2.840.114 [id number] Univers 00:00:00 00:00:00 Outreach Donny PRIMARY 350.1.13.10 i ty of [facility] 4.2.7.2.686 [place] [phone] Ok dical [address] [place] 2020-06-01 2020-06-01 Patient Ron [facility] 1.2.840.114 [id number] 00:00:00 00:00:00 Outreach Donny [facility] 350.1.13.10 [facility] 4.2.7.2.686 BADIN [phone] 388 2020-05-27 2020-05-27 Orders Doctor MAURILIO 1.2.840.114 [id number] Univers 00:00:00 00:00:00 Only Unassigned, FEILCITA 350.1.13.10 ity of [place] [facility] 4.2.7.2.686 Julián as [phone] [address] 2020-05-27 2020-05-27 Orders Doctor MAURILIO 1.2.840.114 [id number] 00:00:00 00:00:00 Only Unassigned, FELICITA 350.1.13.10 [place] [facility] 4.2.7.2.686 [phone] 009 2020-05-22 2020-05-22 Outpatient [facility] [id number] SLE 00:00:00 00:00:00 JOHN PAUL 2020-05-19 2020-05-19 Outpatient [facility] [id number] SLE 00:00:00 00:00:00 2020-05-13 2020-05-13 Telephone [facility] 1.2.488.159 [id number] [facility] 00:00:00 00:00:[address] [facility] 350.1.13.10 it y of [place] 4.2.7.2.686 Julián as Professio [phone] Ok dic[address] One 2020-05-13 2020-05-13 Telephone [facility] 1.2.765.624 [id number] 00:00:00 00:00:00 [facility] 350.1.13.10 [place] 4.2.7.2.686 Professio [phone] nal 044 [facility] One 2020-04-26 2020-04-26 Orders Doctor KAPADIA 1.2.840.114 [id number] Univers 00:00:00 00:00:00 Only Unassigned, FELICITA 350.1.13.10 ity of [place] [facility] 4.2.7.2.686 Julián as [phone] [address] 2020-04-26 2020-04-26 Orders Doctor MAURILIO 1.2.840.114 [id number] 00:00:00 00:00:00 Only Unassigned, FELICITA 350.1.13.10 [place] [facility] 4.2.7.2.686 [id number] 009 2020-04-20 2020-04-20 Outpatient REY BooneTO PAIN [id number] [facility] 08:30:00 08:30:00 Yenny [facility] 2020-04-13 2020-04-13 Reftamica aGrcía [facility] 1.2.840.114 [id number] [facility] 00:00:00 00:00:00 [facility] 350.1.13.10 it y of [place] 4.2.7.2.686 Julián as Professio [phone] [address] Office Building One 2020-04-13 2020-04-13 Lucia [facility] 1.2.840.114 [id number] 00:00:00 00:00:00 [facility] 350.1.13.10 [place] 4.2.7.2.686 Professio [phone] nal [facility] One 2020-04-06 2020-04-08 Inpatient EL REY BooneTO PAIN [id number] [facility] 10:30:00 04:14:06 Yenny Mcgraw [facility] 2020-04-07 2020-04-07 Orders Doctor KAPADIA 1.2.840.114 [id number] Univers 00:00:00 00:00:00 Only Unassigned, FELICITA 350.1.13.10 ity of [place] [facility] 4.2.7.2.686 Julián as [phone] [address] 2020-04-07 2020-04-07 Orders Doctor KAPADIA 1.2.840.114 [id number] 00:00:00 00:00:00 Only Unassigned, FELICITA 350.1.13.10 [place] [facility] 4.2.7.2.686 [id number] 009 2020-03-23 2020-03-23 Refill Ricky [facility] 1.2.840.114 [id number] Univers 00:00:00 00:00:00 [facility] 350.1.13.10 it y of [place] 4.2.7.2.686 Julián as Professio [phone] [address] Office Building One 2020-03-23 2020-03-23 Reftamica García [facility] 1.2.840.114 [id number] 00:00:00 00:00:00 [facility] 350.1.13.10 [place] 4.2.7.2.686 Professio [phone] [place] [address] Office Building One 2020-03-03 2020-03-03 Laboratory Only, [facility] Test [facility] 1.2.840. 114 [id number] Univers 08:05:24 08:20:24 Only JanyYenny ferguson 350.1.13.10 ity of [place] 4.2.7.2.[address] [facility] [phone] [address] 2020-03-03 2020-03-03 Laboratory Only, [facility] 1.2.840.114 7 [id number] 08:05:24 08:20:24 Only Test Macy 350.1.13.10 [place] 4.2.7.2.686 [place] [id number] [facility] 2020-03-03 2020-03-03 Outpatient R [facility] [id number] Univers 08:00:00 08:00:00 ity of [facility] 2020-02-03 2020-02-03 Office [facility] 1.2.840.114 [id number] [facility] 09:28:06 09:43:06 Visit [facility] 350.1.13.10 it y of [place] 4.2.7.2.686 Julián as Professio [phone] [address] Office Building One 2020-02-03 2020-02-03 Office Ricky [facility] 1.2.840.114 [id number] 09:28:06 09:43:06 Visit [facility] 350.1.13.10 [place] 4.2.7.2.686 Professio [phone] [place] [address] Office Building One 2020-02-03 2020-02-03 Outpatient Jarad GARCÍA [facility] [id number] Univers 09:30:00 09:30:00 CHEMA funk [facility] 2020-01-24 2020-01-24 Reftamica García [facility] 1.2.840.114 [id number] Univers 00:00:00 00:00:[address] [facility] 350.1.13.10 it y of [place] 4.2.7.2.686 Julián as Professio [phone] [address] 2020-01-22 2020-01-22 Outpatient Jarad GARCÍA [facility] [id number] Univers 08:00:00 08:00:00 CHEMA funk [facility] 2020-01-14 2020-01-16 Inpatient MORGAN Boone HCATO PAIN [id number] [facility] 07:30:00 04:10:[address] [place] [address] [facility] Hospita [facility] 2020-01-15 2020-01-15 Outpatient Jarad GARCÍA [facility] [id number] Univers 07:30:00 07:30:00 CHEMA funk [facility] 2019-12-25 2019-12-25 Imm/Inj Nurse, Adc Fam Pob I [facility] 1.2.8 40.114 [id number] Univers 12:49:48 13:17:37 Visit Chema García [facility] 350.1.13.10 ity of [place] 4.2.7.2.686 Julián as Professio [phone] [address] 2019-12-25 2019-12-25 Outpatient Jarad GARCÍA [facility] [id number] Univers 13:00:00 13:00:00 CHEMA funk [facility] 2019-12-25 2019-12-25 Reftamica [facility] 1.2.840.114 [id number] Univers 00:00:00 00:00:00 Chema [facility] 350.1.13.10 it y of [place] 4.2.7.2.686 Julián as Professio [phone] [address] Office [facility] 2019-11-05 2019-11-05 Ru George [facility] 1.2.841.457 2300 0049 Univers 00:00:00 00:00:00 [facility] 350.1.13.10 it y of [place] 4.2.7.2.686 Julián as Professio [phone] Ok dical nal [address] [place] [address] Office [facility] One 2019-11-04 2019-11-04 Urgent Provider, [facility] Urgent Care [facility] 1.2.840.114 [id number] Univers 13:21:12 14:22:34 Care Deepthi [facility] 350.1.13.10 ity of [place] 4.2.7.2.686 Julián as Professio [phone] Ok dical nal [address] [place] [address] Office [facility] One 2019-11-04 2019-11-04 Outpatient R [facility] [id number] Univers 13:20:00 13:20:00 ity of [facility] 2019-11-04 2019-11-04 Letter Doctor MAURILIO 1.2.840.114 [id number] Univers 00:00:00 00:00:00 (Out) Unassigned, [place] 350.1.13.10 ity of [place] [facility] 4.2.7.2.686 Julián as [phone] [address] 2019-10-07 2019-10-07 Reftamica [facility] 1.2.840.114 [id number] Univers 00:00:00 00:00:00 [facility] 350.1.13.10 it y of [place] 4.2.7.2.686 Julián as Professio [phone] [facility] [address] [place] [address] Office [facility] One 2019-09-30 2019-09-30 Reftamica [facility] 1.2.840.114 [id number] Univers 00:00:00 00:00:[address] [facility] 350.1.13.10 it y of [place] 4.2.7.2.686 Julián as Professio [phone] [facility] [address] [place] [address] Office [facility] One 2019-08-01 2019-08-01 Outpatient Boone, HCATO PAIN [id number] [facility] 10:30:00 10:30:00 Yenny Jones [facility] 2019-07-10 2019-07-10 Telephone Ricky [facility] 1.2.777.434 [id number] Univers 00:00:00 00:00:00 [facility] 350.1.13.10 it y of [place] 4.2.7.2.686 Julián as Professio [phone] [address] 2019-06-27 2019-06-27 Reftamica [facility] 1.2.840.114 [id number] Univers 00:00:00 00:00:00 [facility] 350.1.13.10 it y of [place] 4.2.7.2.686 Julián as Professio [phone] [address] 2019-06-11 2019-06-11 Outpatient [facility] [id number] Univers 08:30:00 08:30:00 CHEMA dinorah [facility] 2019-06-10 2019-06-10 Outpatient [facility] [id number] Univers 12:00:00 12:00:00 [facility] 2019-06-04 2019-06-04 Transition Niki Urias 1.2.840.114 [id number] Univers 00:00:00 00:00:00 of Care Ciera Martinez 350.1.13.10 it y of [place].2.7.2.686 [place] [phone] [address] 2019-06-04 2019-06-04 Reftamica [facility] 1.2.840.114 [id number] Univers 00:00:00 00:00:00 [facility] 350.1.13.10 it y of [place] 4.2.7.2.686 Julián as Professio [phone] [address] 2019-06-02 2019-06-03 Outpatient X KIRBY NASH [facility] LEVAR [id number] Univers 05:50:55 14:53:00 ity of [facility] 2019-06-02 2019-06-03 Emergency Gurjit Perez [facility] 1.2.840.1 [id number] Univers 05:50:55 14:53:00 Kirby Nash 350.1.13.10 [place]y [place].2.[place] [phone] [facility] [address] [place] 2019-06-02 2019-06-02 Orders Doctor MAURILIO 1.2.840.114 [id number] Univers 00:00:00 00:00:00 Only Unassigned, FELICITA 350.1.13.10 ity of [place] [facility] 4.2.7.2.686 Julián as [phone] [address] 2019-05-23 2019-05-23 Telephone García GANAIDA [id number] Univers 00:00:00 00:00:00 [facility] 350.1.13.10 it y of [place] 4.2.7.2.686 [place]án as Professio [phone] [address] Office [facility] 2019-05-16 2019-05-16 Orders Doctor MAURILIO 1.2.840.114 [id number] Univers 00:00:00 00:00:00 Only Unassigned, FELICITA 350.1.13.10 ity of [place] [facility] 4.2.7.2.686 Julián as [phone] [address] 2019-04-23 2019-04-23 Refill García [facility] 1.2.840.114 [id number] Univers 00:00:00 00:00:00 [facility] 350.1.13.10 it y of [place] 4.2.7.2.686 [place]án as Professio [phone] [address] Office [facility] 2019-04-17 2019-04-17 Refill García, GANAIDA 1.2.840.114 [id number] Univers 00:00:00 00:00:00 [facility] 350.1.13.10 it y of [place] 4.2.7.2.686 Jul[place]án as Professio [phone] [address] Office [facility] 2018-12-17 2018-12-17 Pre Visit Ricky GANAIDA 1.2.390.369 [id number] Univers 00:00:00 00:00:00 Outreach [facility] 350.1.13.10 i ty of [place]2.[place] [facility] [phone] [address] 2018-12-13 2018-12-14 Office BRITT García 1.2.840.114 [id number] Univers 07:29:55 07:48:43 Visit Chema Errund 350.1.13.10 it y of [place] 4.2.7.2.686 [place]án as Professio [phone] [address] One 2018-12-13 2018-12-13 Orders Doctor MAURILIO 1.2.840.114 [id number] Univers 00:00:00 00:00:00 Only Unassigned, FELICITA 350.1.13.10 ity of [place] [facility] 4.2.7.2.686 [place]án as [phone] [address] 2018-12-13 2018-12-13 Telephone BRITT García 1.2.874.611 [id number] Univers 00:00:00 00:00:00 [facility] Errund 350.1.13.10 it y of [place] 4.2.7.2.686 [place]ián as Professio [phone] [address] Office Building One Results Test Description Test Time Test Comments Results Result Comments Source BASIC METABOLIC PANEL 2022-10-25 08:18:00 Test Item Value Reference Range Interpretation Comme nts SODIUM (test code = NA) 136 mEq/L 134-147 N POTASSIUM (test code = K) 3.4 mEq/L 3.4-5.0 N CHLORIDE (test code = CL) 97 mEq/L 100-108 L CARBON DIOXIDE (test code = 32 mEq/l 21-33 N CO2) ANION GAP (test code = GAP) 10 0-20 N GLUCOSE (test code = GLU) 101 mg/dL 70-110 N BLOOD UREA NITROGEN (test code 11 mg/dL 7-18 N = BUN) GLOMERULAR FILTRATION RATE 76.8 70-80 N T he Glomerular Filtration Rate is (test code = GFR) a calculat ed parameterbased on serum Creatinin e, patient age and sex. GFR values less than 60 mL/min/1.73 squ are meters are indicative ofCh ronic Kidney Disease. Values less than 15 mL/min/1.73squa re meters indicate Kidney failure. The calculation forGFR is based on the CKD-EPI (2020) calculat ion. This formulais race indifferen t and is the recommended for guillermina for GFRby the National Kidney Foundation for Adults.The GFR will not calculate if the sex is u nknown or if thepatient's ag e is <18 years. CREATININE (test code = CREAT) 0.8 mg/dL 0.6-1.3 N CALCIUM (test code = CA) 9.4 mg/dL 8.0-10.5 N VITAMIN [id number] 08:46:00 Test Item Value Reference Range Interpretation Comments VITAMIN B12 (test code = VITB12) 1304 pg/mL 193-986 H Indication for Test: Osteopenia/Bone Dis RiskFOLIC [id number] 08:46:00 Test Item Value Reference Range Interpretation Comments FOLIC ACID (test code = FOL) 20.4 ng/mL 3.1-17.5 H Indication for Test: Osteopenia/Bone Dis RiskVITAMIN D 26-[id number] 08:46:00 Test Item Value Reference Range Interpretation Comments VITAMIN D 25-HYDROXY (test code = 23.6 ng/mL 30-100 L VITD25) Indication for Test: Osteopenia/Bone Dis RiskTHYROID STIMULATING HORMONE 2022-10-23 08:22:00 Test Item Value Reference Range Interpretation Comments THYROID STIMULATING 4.33 0.42-5.47 N Results in HORMONE (test code = TSH) mi lli-International Units/mL - XR CHEST 1 [id number] 00:00:00 [facility] : 1945 Sex: F FAX: Dory Trevino MD [phone] [place]: St: DIS FAX: Navdeep Potter [phone] FAX: Yenny Walls MD [phone] FAX: Paras Arita MD [phone] Name: SWEETIE AMAYA [facility] : 1945 Age/S: 77/F [address] [place] [address] Unit #: [id number] Loc: [address] [address] Phys: Navdeep Carey MD Acct: [id number] Dis Date: 20221022 Status: DIS IN PHONE #: [phone] Exam Date: 10/22/2022 1015 FAX #: [phone] Reason: R/O PLEURAL EFFUSION EXAMS: CPT CODE: [id number] XR CHEST 1 V 76861 PROCEDURE INFORMATION: Exam: XR Chest Exam date and time: 10/22/2022 10:00 AM Age: 77 years old Clinical indication: Condition or disease; Other: R/O pleural effusion TECHNIQUE: Imaging protocol: Radiologic exam of the chest. Views: 1 view. COMPARISON: CR XR CHEST 1V 10/21/2022 6:01 AM FINDINGS: Tubes, catheters and devices: Dual-chamber pacer device on the left. Lungs: Residual indistinct bibasilar opacity with improvement. Pleural spaces: There could be a small amount of pleural fluid on either side. Heart/Mediastinum: Stable cardiomegaly. Valvuloplasty. Bones/joints: Sternotomy.IMPRESSION: 1. Residual bibasilar opacity with improvement. 2. Stable cardiomegaly. 3. Possible pleural effusions. at 1302 Reported and signed by: Laz Gonzalez M.D. CC: Dory Hoff MD; Navdeep Carey MD; Yenny Vidales MD Technologist: Yuri Medina RT(R) Trnscrd Date/Time/By: 10/22/2022 (2255) : By: [email or web address] Orig Print D/T: S: 10/22/2022 (0611) PAGE 1 Signed ReportCOVID 19 INHOUSE [id number] 12:24:00 Test Item Value Reference Range Interpretation Comments COVID 19 INHOUSE Negative Negative A negative result is AG (test code = presumptive and should be [id number]) confirmedwith a n FDA authorized mole cular assay, if necessary fo rpatient management.A po sitive result does not rule out co-infections w ithother pathogens.This test detects both viable (li ve) and non-viable,SARS -CoV, and SARS-CoV-2. Henna t performance dep ends on theamount of vi lamin (antigen) in th e sample.This henna t has not been FDA cleare d or approved; the t est hasbeen authorized by [facility] [employer] under an Emergency Use Authorization(E UA) for use by laboratories certified under the CLIA thatmeet the requirements to perform moderate, high or waivedcomplexit y tests. BASIC METABOLIC [id number] 07:28:00 Test Item Value Reference Range Interpretation Comments SODIUM (test code = 127 mEq/L 134-147 L NA) POTASSIUM (test code 3.5 mEq/L 3.4-5.0 N = K) CHLORIDE (test code 91 mEq/L 100-108 L = CL) CARBON DIOXIDE (test 32 mEq/l 21-33 N code = CO2) ANION GAP (test code 8 0-20 N = GAP) GLUCOSE (test code = 89 mg/dL 70-110 N GLU) BLOOD UREA NITROGEN 10 mg/dL 7-18 N (test code = BUN) GLOMERULAR 76.8 70-80 N The Glomerular FILTRATION RATE Filtration R ate is a (test code = GFR) calculated parameterbased on serum Creatinine, pat ient age and sex. GFR va luesless than 60 mL/min/ 1.73 square meters a re indicative ofCh ronic Kidney Disease. Values less than 15 mL/min/1.73squa re meters indicate Kidney failure. The calculation forGFR is based on the CKD-EPI (2020) calculat ion. This formulais race indifferent and is the recommended for guillermina for GFRby the [facility] on for Adults.The GFR will not calculate if th e sex is unknown or if thepatient's ag e is <18 years. CREATININE (test 0.8 mg/dL 0.6-1.3 N code = CREAT) CALCIUM (test code = 8.9 mg/dL 8.0-10.5 N CA) [id number] 07:28:00 Test Item Value Reference Range Interpretation Comments MAGNESIUM (test code = MAG) 2.02 mg/dL 1.80-2.40 CBC W/AUTO [id number] 07:13:00 Test Item Value Reference Range Interpretation Comments WHITE BLOOD CELL (test code = 11.7 x10 3/uL 4.5-11.0 H WBC) RED BLOOD CELL (test code = 2.88 x10 6/uL 3.54-5.02 L RBC) HEMOGLOBIN (test code = HGB) 8.1 g/dL 11.0-15.0 L HEMATOCRIT (test code = HCT) 24.7 % 33.0-45.0 L MEAN CELL VOLUME (test code = 85.8 fL 81.0-99.0 N MCV) MEAN CELL HGB (test code = MCH) 28.1 pg 27.0-33.0 N MEAN CELL HGB CONCETRATION 32.8 g/dL 33.0-37.0 L (test code = MCHC) RED CELL DISTRIBUTION WIDTH CV 15.0 % 11.5-14.5 H (test code = RDW) RED CELL DISTRIBUTION WIDTH SD 46.0 fL 37.0-54.0 N (test code = RDW-SD) PLATELET COUNT (test code = 416 x10 3/uL 150-400 H PLT) MEAN PLATELET VOLUME (test code 9.8 fL 7.0-9.0 H = MPV) NEUTROPHIL % (test code = NT%) 77.0 % 56.0-77.0 N IMMATURE GRANULOCYTE % (test 0.5 % 0.0-2.0 N code = IG%) LYMPHOCYTE % (test code = LY%) 9.9 % 14.0-32.0 L MONOCYTE % (test code = MO%) 6.8 % 4.8-9.0 N EOSINOPHIL % (test code = EO%) 5.0 % 0.3-3.7 H BASOPHIL % (test code = BA%) 0.8 % 0.0-2.0 N NUCLEATED RBC % (test code = 0.0 % 0-0 N NRBC%) NEUTROPHIL # (test code = NT#) 9.00 x10 3/uL 2.0-7.6 H IMMATURE GRANULOCYTE # (test 0.06 x10 3/uL 0.00-0.03 H code = IG#) LYMPHOCYTE # (test code = LY#) 1.16 x10 3/uL 1.0-3.8 N MONOCYTE # (test code = MO#) 0.80 x10 3/uL 0.1-0.8 N EOSINOPHIL # (test code = EO#) 0.59 x10 3/uL 0.0-0.2 H BASOPHIL # (test code = BA#) 0.09 x10 3/uL 0.0-0.2 N NUCLEATED RBC # (test code = 0.00 x10 3/uL 0.0-0.1 N NRBC#) MANUAL DIFF REQUIRED (test code NO = MDIFF) - [facility] [id number] 00:00:[address] [facility] : 1945 Sex: F Name: SWEETIE AMAYA [facility] : 1945 Age/S: 77 / F [address] [place] [address] Unit #: [id number] Loc: [place] [address] Phys: Navdeep Carey MD Acct: [id number] Dis Date: Status:ADM IN PHONE #: [phone] Exam Date: 10/21/2022 0801 FAX #: [phone] Reason: R/O DVT EXAMS: CPT CODE: [id number] DUP VEIN ANGI 23128 PROCEDURE INFORMATION: Exam: US Duplex Lower Extremity Veins,Bilateral Exam date and time: 10/21/2022 6:00 PM Age: 77 years old Clinical indication: Screening exam; R/O dvt TECHNIQUE: Imaging protocol: Real- time duplex ultrasound of the bilateral extremities with 2-D avila scale, color Doppler flow and spectral waveform analysis including responses to compression and other maneuvers (when performed) with image documentation. Complete exam focused on the lower extremity veins. COMPARISON: No relevant prior studies available. FINDINGS: Right lower extremity: Thecommon femoral vein, femoral vein, popliteal vein and visualized posterior tibial/calf veins are patent. The saphenofemoral junction is unremarkable. Left lower extremity: The common femoral vein, superficial femoral vein, popliteal vein and visualized posterior tibial/calf veins are patent. The saphenofemoral junction is unremarkable. IMPRESSION: No sonographic evidence for DVT REFERENCES: 1. DEEP VEINS: common femoral vein, superficial femoral vein (also can be referred to as "femoral vein"), popliteal vein, posterior tibial vein 2. SUPERFICIAL VEINS: greater and lesser saphenous veins at 1915 Reported and signed by: Everett Adam M.D.CC: Dory Hoff MD; Navdeep Carey MD; Yenny Vidales MD Technologist: Kaylynn Cheema Trnscb Date/Time: 10/21/2022 (1914) [email or web address] Orig Print D/T: S: 10/22/2022 (800)Probe: PAGE 1 Signed Report- XR CHEST 1 [id number] 00:00:00 [facility] : 1945 Sex: F FAX: Dory Trevino MD [phone] [place]: St: ADM FAX: Yenny Walls MD [phone] FAX:Paras Arita MD [phone] FAX: Harriet Spain [facility] [phone] Name: SWEETIE AMAYA [facility] : 1945 Age/S: 77/F [address] [place] [address] Unit #: [id number] Loc: G.33[address] [place] [address] Phys: Harriet Griffin Physic Acct: [id number] Dis Date: Status: ADM IN PHONE #: [phone] Exam Date: 10/21 0603 FAX #: [phone] Reason: S/P MVR, R/O EFFUSION EXAMS: CPT CODE: [id number] XR CHEST 1 [id number] PROCEDURE INFORMATION: Exam: XR Chest Exam date and time: 10/21/2022 6:01 AM Age: 77 years oldClinical indication: Other: S/P mvr, R/O effusion TECHNIQUE: Imaging protocol: Radiologic exam of the chest. Views: 1 view. COMPARISON: CR XR CHEST 1V 10/19/2022 5:12 AM FINDINGS: Tubes, catheters and devices: Stable implanted cardiac device. Lungs: The bilateral lung opacities are grossly stable. Pleural spaces: Small pleural effusions could be present. No definite pneumothorax. Heart/Mediastinum: The enlarged heart size is stable. Prosthetic cardiac valve. Vasculature: Atherosclerotic calcifications. Bones/joints: Stable. Median sternotomy wires. IMPRESSION: Grossly stable exam. ElectronicallySigned by Carlos Reilly on 10/21/2022 at 0800 Reported and signed by: Juan Reilly M.D. CC: Dory Hoff MD; Yenny Boone M.D.; Paras Vidales MD; Harriet Griffin Technologist: Raiza Albarran, RT(R) Trnscrd Date/Time/By: 10/21/2022 (08) : By: [email or web address] Orig Print D/T: S: 10/21/2022 (799) PAGE 1 Signed Report- XR ABDOMEN 1V (KUB)2022-10-21 00:00:00 [facility]ay : 1945 Sex: F FAX: Dory Trevino MD [phone] [place]: St: ADM FAX: Nina Min MD [phone] FAX: Yenny Walls MD [phone] FAX: Paras Arita MD [phone] Name: JOSE LUISSWEETIE Day [facility] : 1945 Age/S: 77/F [address] [place] [address] Unit #: [id number] Loc: G.[address] [place] [address] Phys: Nina Melgar MD Acct: [id number] Dis Date: Status: ADM IN PHONE #: [phone] Exam Date: 10/20/20221836 FAX#: [phone] Reason: BLOATING, FREQUENT BURPING EXAMS: CPT CODE: [id number] XR ABDOMEN 1V (KUB) 66454 PROCEDURE INFORMATION: Exam: XR Abdomen Exam date and time: 10/20/2022 6:32 PM Age: 77 years old Clinical indication: Bloating and other: Bloating, frequent burping TECHNIQUE: Imaging protocol: Radiologic exam of the abdomen. Views: Frontal supine view of the abdomen. 1 View. COMPARISON: CR XR CHEST 1V 10/19/2022 5:12 AM FINDINGS: Tubes, catheters and devices: Partially imaged cardiac leads and prosthetic cardiac valve. Gastrointestinal tract: Nonspecific, nonobstructive bowel gas pattern. No bowel dilatation. Organs: Surgical clips in the right upper abdominal quadrant compatible with prior cholecystectomy. Bones/joints: No acute abnormality. IMPRESSION: Nonspecific, nonobstructive bowel gas pattern. No bowel dilatation. at 0614 Reported and signed by: Pankaj Han M.D. CC: Dory Hoff MD; Nina Melgar MD; Yenny Boone M.D.; Paras Vidales MD Technologist: Cathy Johnson, RT(R); Caity Myers RT(R) Trnscrd Date/Time/By: 10/21/2022 (613) : By: [email or web address] Orig Print D/T: S: 10/21/2022 (613) PAGE 1 Signed Report- DUP VEIN [id number] 00:00:00 [facility] : 1945 Sex: F Name: SWEETIE AMAYA [facility] : 1945 Age/S: 77 / F [address] [place] [address] Blvd Unit #:[id number] Loc: [place] [address] Phys: Amarilis Valentin Jarad AGACNP Acct: [id number] Dis Date: Status: ADM IN PHONE #: [phone] Exam Date: 10/21/2022817 FAX #: [phone] Reason: r/o DVT of bilateral upper arms EXAMS: CPT CODE: [id number] DUP VEIN ANGI 87470 PROCEDURE INFORMATION: Exam: US Duplex Upper Extremity Veins Exam date and time: 10/21/2022 6:37 AM Age: 77 years old Clinical indication: Edema, localized; Upper extremity, bilateral; Additional info: R/O dvt of bilateral upper arms TECHNIQUE: Imaging protocol: Real-time duplex ultrasound of the extremities with 2-D avila scale, color Dop pler flow and spectral waveform analysis including responses to compression and other maneuvers (when performed) with image documentation. Complete exam focused on the upper extremity veins. COMPARISON: US DUP VEIN UNI/LTD 10/15/2022 8:08 PM FINDINGS: Right deep veins: Internal jugular and subclavian veins are patent. Axillary and brachial veins demonstrate normal compressibility, patency, without thrombus. Normal Doppler waveforms. Right superficial veins: Visualized basilic vein appears patent without thrombus. Superficial venous thrombus identified in the mid to distal right arm cephalic vein. Left deep veins: Internal jugular and subclavian veins are patent. Axillary and brachial veins demonstrate normal compressibility, patency, without thrombus. Normal Doppler waveforms. Left superficial veins: Visualized basilic vein appears patent without thrombus. Superficial venous thrombosis within mid left arm cephalic vein. Other veins: Not applicable. Soft tissues: Unremarkable. IMPRESSION: No evidence of deep vein thrombosis. Superficial venous thrombosis within cephalic veins bilaterally. at 1002 Reported and signed by: Yenny Nam M.D. PAGE 1 Signed Report (CONTINUED) Name: SWEETIE AMAYA [facility] [place] : 1945 Age/S: 77 / F [address] [place], [place] [address] Unit #: [id number] Loc: [place] [address] Phys: Amarilis Valentin Acct: [id number] Dis Date: Status: ADM IN PHONE #: [phone] ExamDate: 10/21/2022817 FAX #: [phone] Reason: r/o DVT of bilateral upper arms EXAMS: CPT CODE: [id number] DUP VEIN ANGI 68583 (Continued) CC: Dory Hoff MD; Amarilis Valentin; Yenny Boone M.D.; Paras Vidales MD Technologist: Travis Kenyon Trnscb Date/Time: 10/21/2022 (1002) [email or web address] Orig Print D/T: S: 10/21/2022 (1002) Probe: PAGE 2 Signed ReportBASI METABOLIC [id number] 13:18:00 Test Item Value Reference Range Interpretation Comments SODIUM (test code = 126 mEq/L 134-147 L NA) POTASSIUM (test code 3.5 mEq/L 3.4-5.0 N = K) CHLORIDE (test code 91 mEq/L 100-108 L = CL) CARBON DIOXIDE (test 31 mEq/l 21-33 N code = CO2) ANION GAP (test code 7 0-20 N = GAP) GLUCOSE (test code = 116 mg/dL 70-110 H GLU) BLOOD UREA NITROGEN 13 mg/dL 7-18 (test code = BUN) GLOMERULAR 76.8 70-80 N The Glomerular FILTRATION RATE Filtration R ate is a (test code = GFR) calculated parameterbased on serum Creatinine, pat ient age and sex. GFR va luesless than 60 mL/min/ 1.73 square meters a re indicative ofCh ronic Kidney Disease. Values less than 15 mL/min/1.73squa re meters indicate Kidney failure. The calculation forGFR is based on the CKD-EPI (2020) calculat ion. This formulais race indifferent and is the recommended for guillermina for GFRby the [facility] on for Adults.The GFR will not calculate if th e sex is unknown or if thepatient's ag e is <18 years. CREATININE (test 0.8 mg/dL 0.6-1.3 N code = CREAT) CALCIUM (test code = 8.3 mg/dL 8.0-10.5 N CA) [id number] 13:18:00 Test Item Value Reference Range Interpretation Comments MAGNESIUM (test code = MAG) 1.68 mg/dL 1.80-2.40 L CBC W/AUTO [id number] 12:53:00 Test Item Value Reference Range Interpretation Comments WHITE BLOOD CELL (test code = 14.3 x10 3/uL 4.5-11.0 H WBC) RED BLOOD CELL (test code = 2.91 x10 6/uL 3.54-5.02 L RBC) HEMOGLOBIN (test code = HGB) 8.3 g/dL 11.0-15.0 L HEMATOCRIT (test code = HCT) 24.9 % 33.0-45.0 L MEAN CELL VOLUME (test code = 85.6 fL 81.0-99.0 N MCV) MEAN CELL HGB (test code = 28.5 pg 27.0-33.0 N MCH) MEAN CELL HGB CONCETRATION 33.3 g/dL 33.0-37.0 N (test code = MCHC) RED CELL DISTRIBUTION WIDTH CV 14.9 % 11.5-14.5 H (test code = RDW) RED CELL DISTRIBUTION WIDTH SD 46.1 fL 37.0-54.0 N (test code = RDW-SD) PLATELET COUNT (test code = 378 x10 3/uL 150-400 N PLT) MEAN PLATELET VOLUME (test 9.2 fL 7.0-9.0 H code = MPV) NEUTROPHIL % (test code = NT%) 79.5 % 56.0-77.0 H IMMATURE GRANULOCYTE % (test 0.7 % 0.0-2.0 N code = IG%) LYMPHOCYTE % (test code = LY%) 8.9 % 14.0-32.0 L MONOCYTE % (test code = MO%) 6.7 % 4.8-9.0 N EOSINOPHIL % (test code = EO%) 3.5 % 0.3-3.7 N BASOPHIL % (test code = BA%) 0.7 % 0.0-2.0 N NUCLEATED RBC % (test code = 0.1 % 0-0 H NRBC%) NEUTROPHIL # (test code = NT#) 11.34 x10 3/uL 2.0-7.6 H IMMATURE GRANULOCYTE # (test 0.10 x10 3/uL 0.00-0.03 H code = IG#) LYMPHOCYTE # (test code = LY#) 1.27 x10 3/uL 1.0-3.8 N MONOCYTE # (test code = MO#) 0.95 x10 3/uL 0.1-0.8 H EOSINOPHIL # (test code = EO#) 0.50 x10 3/uL 0.0-0.2 H BASOPHIL # (test code = BA#) 0.10 x10 3/uL 0.0-0.2 N NUCLEATED RBC # (test code = 0.02 x10 3/uL 0.0-0.1 N NRBC#) MANUAL DIFF REQUIRED (test NO code = MDIFF) GLUCOSE [id number] 16:29:00 Test Item Value Reference Range Interpretation Comments GLUCOSE BEDSIDE (test 114 MG/DL 70-110 H [facility] med by certified code = GLUBED) 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 [facility] BASIC METABOLIC [id number] 03:17:00 Test Item Value Reference Range Interpretation Comments SODIUM (test code = 129 mEq/L 134-147 L NA) POTASSIUM (test code 4.0 mEq/L 3.4-5.0 N = K) CHLORIDE (test code 95 mEq/L 100-108 L = CL) CARBON DIOXIDE (test 28 mEq/l 21-33 N code = CO2) ANION GAP (test code 10 0-20 N = GAP) GLUCOSE (test code = 125 mg/dL 70-110 H GLU) BLOOD UREA NITROGEN 8 mg/dL 7-18 N (test code = BUN) GLOMERULAR 90.1 70-80 H The Glomerular FILTRATION RATE Filtration R ate is a (test code = GFR) calculated parameterbased on serum Creatinine, pat ient age and sex. GFR va luesless than 60 mL/min/ 1.73 square meters a re indicative ofCh ronic Kidney Disease. Values less than 15 mL/min/1.73squa re meters indicate Kidney failure. The calculation forGFR is based on the CKD-EPI (2020) calculat ion. This formulais race indifferent and is the recommended for guillermina for GFRby the [facility] Kidney Foundati on for Adults.The GFR will not calculate if th e sex is unknown or if thepatient's ag e is <18 years. CREATININE (test 0.7 mg/dL 0.6-1.3 N code = CREAT) CALCIUM (test code = 8.7 mg/dL 8.0-10.5 N CA) [id number] 03:17:00 Test Item Value Reference Range Interpretation Comments MAGNESIUM (test code = MAG) 1.95 mg/dL 1.80-2.40 N CBC W/AUTO [id number] 03:09:00 Test Item Value Reference Range Interpretation Comments WHITE BLOOD CELL (test code = 14.4 x10 3/uL 4.5-11.0 H WBC) RED BLOOD CELL (test code = 2.84 x10 6/uL 3.54-5.02 L RBC) HEMOGLOBIN (test code = HGB) 8.1 g/dL 11.0-15.0 L HEMATOCRIT (test code = HCT) 24.5 % 33.0-45.0 L MEAN CELL VOLUME (test code = 86.3 fL 81.0-99.0 N MCV) MEAN CELL HGB (test code = 28.5 pg 27.0-33.0 N MCH) MEAN CELL HGB CONCETRATION 33.1 g/dL 33.0-37.0 N (test code = MCHC) RED CELL DISTRIBUTION WIDTH CV 14.8 % 11.5-14.5 H (test code = RDW) PLATELET COUNT (test code = 269 x10 3/uL 150-400 N PLT) NEUTROPHIL % (test code = NT%) 79.9 % 56.0-77.0 H LYMPHOCYTE % (test code = LY%) 7.2 % 14.0-32.0 L NEUTROPHIL # (test code = NT#) 11.50 x10 3/uL 2.0-7.6 H LYMPHOCYTE # (test code = LY#) 1.04 x10 3/uL 1.0-3.8 N MANUAL DIFF REQUIRED (test NO code = MDIFF) RED CELL DISTRIBUTION WIDTH SD 46.5 fL 37.0-54.0 N (test code = RDW-SD) MEAN PLATELET VOLUME (test 9.4 fL 7.0-9.0 H code = MPV) IMMATURE GRANULOCYTE % (test 0.8 % 0.0-2.0 N code = IG%) MONOCYTE % (test code = MO%) 8.6 % 4.8-9.0 N EOSINOPHIL % (test code = EO%) 2.9 % 0.3-3.7 N BASOPHIL % (test code = BA%) 0.6 % 0.0-2.0 N NUCLEATED RBC % (test code = 0.1 % 0-0 H NRBC%) IMMATURE GRANULOCYTE # (test 0.11 x10 3/uL 0.00-0.03 H code = IG#) MONOCYTE # (test code = MO#) 1.23 x10 3/uL 0.1-0.8 H EOSINOPHIL # (test code = EO#) 0.42 x10 3/uL 0.0-0.2 H BASOPHIL # (test code = BA#) 0.08 x10 3/uL 0.0-0.2 N NUCLEATED RBC # (test code = 0.02 x10 3/uL 0.0-0.1 N NRBC#) - XR CHEST 1 [id number] 00:00:00 [facility] : 1945 Sex: F FAX: Dory Trevino MD [phone] [place]: St: ADM FAX: Yenny Walls MD [phone] FAX:Paras Arita MD [phone] FAX: Vinny Mcgee [phone] Name: SWEETIE AMAYA [facility] : 1945 Age/S: 77/F [address] [place] [address] Unit #: [id number] Loc: G.220[address] [place] [address] Phys: Vinny Mcgee Acct: [id number] Dis Date: Status: ADM IN PHONE #: [phone] Exam Date: 513 FAX #: [phone] Reason: Post PM/ICD EXAMS: CPT CODE: [id number] XR CHEST 1 V 65819 PROCEDURE INFORMATION: Exam: XR Chest Exam date and time: 10/19/2022 5:12 AM Age: 77 years old Clinical indication: Other: Post pm/icd TECHNIQUE: Imaging protocol: Radiologic exam of the chest. Views: 1 view. C OMPARISON: CR XR CHEST 1V 10/18/2022 4:57 PM FINDINGS: Tubes, catheters and devices: Left cardiac pacemaker in place as before Lungs: Mildly over aerated lungs with no consolidation.. Pleural spaces: Unremarkable. No pleural effusion. No pneumothorax. Heart/Mediastinum: Heart size mildly enlarged Bones/joints: Unremarkable. IMPRESSION: No significant interval change. at 0659 Reported and signed by: Chaitanya Phillips M.D. CC: Dory Hoff MD; Yenny Boone M.D.; Paras Vidales MD; Vinny Mcgee Technologist: SINCERE Israel) Trnscrd Date/Time/By: 10/19/2022 (0659) : By: [email or web address] Orig Print D/T: S: 10/19/2022(59) PAGE 1 Signed ReportCBC W/AUTO [id number] 06:37:00 Test Item Value Reference Range Interpretation Comments WHITE BLOOD CELL (test code = 12.4 x10 3/uL 4.5-11.0 H WBC) RED BLOOD CELL (test code = 2.69 x10 6/uL 3.54-5.02 L RBC) HEMOGLOBIN (test code = HGB) 7.9 g/dL 11.0-15.0 L HEMATOCRIT (test code = HCT) 23.0 % 33.0-45.0 L MEAN CELL VOLUME (test code = 85.5 fL 81.0-99.0 N MCV) MEAN CELL HGB (test code = MCH) 29.4 pg 27.0-33.0 N MEAN CELL HGB CONCETRATION 34.3 g/dL 33.0-37.0 N (test code = MCHC) RED CELL DISTRIBUTION WIDTH CV 15.0 % 11.5-14.5 H (test code = RDW) PLATELET COUNT (test code = 241 x10 3/uL 150-400 N PLT) NEUTROPHIL % (test code = NT%) 75.6 % 56.0-77.0 N LYMPHOCYTE % (test code = LY%) 10.3 % 14.0-32.0 L NEUTROPHIL # (test code = NT#) 9.36 x10 3/uL 2.0-7.6 H LYMPHOCYTE # (test code = LY#) 1.28 x10 3/uL 1.0-3.8 N MANUAL DIFF REQUIRED (test code NO = MDIFF) RED CELL DISTRIBUTION WIDTH SD 46.6 fL 37.0-54.0 N (test code = RDW-SD) MEAN PLATELET VOLUME (test code 10.2 fL 7.0-9.0 H = MPV) IMMATURE GRANULOCYTE % (test 0.6 % 0.0-2.0 N code = IG%) MONOCYTE % (test code = MO%) 9.3 % 4.8-9.0 H EOSINOPHIL % (test code = EO%) 3.6 % 0.3-3.7 N BASOPHIL % (test code = BA%) 0.6 % 0.0-2.0 N NUCLEATED RBC % (test code = 0.0 % 0-0 N NRBC%) IMMATURE GRANULOCYTE # (test 0.08 x10 3/uL 0.00-0.03 H code = IG#) MONOCYTE # (test code = MO#) 1.15 x10 3/uL 0.1-0.8 H EOSINOPHIL # (test code = EO#) 0.44 x10 3/uL 0.0-0.2 H BASOPHIL # (test code = BA#) 0.08 x10 3/uL 0.0-0.2 N NUCLEATED RBC # (test code = 0.00 x10 3/uL 0.0-0.1 N NRBC#) BASIC METABOLIC [id number] 06:37:00 Test Item Value Reference Range Interpretation Comments SODIUM (test code = 130 mEq/L 134-147 L NA) POTASSIUM (test code 4.0 mEq/L 3.4-5.0 N = K) CHLORIDE (test code 94 mEq/L 100-108 L = CL) CARBON DIOXIDE (test 32 mEq/l 21-33 N code = CO2) ANION GAP (test code 8 0-20 N = GAP) GLUCOSE (test code = 118 mg/dL 70-110 H GLU) BLOOD UREA NITROGEN 12 mg/dL 7-18 N (test code = BUN) GLOMERULAR 90.1 70-80 H The Glomerular FILTRATION RATE Filtration R ate is a (test code = GFR) calculated parameterbased on serum Creatinine, pat ient age and sex. GFR va luesless than 60 mL/min/ 1.73 square meters a re indicative ofCh ronic Kidney Disease. Values less than 15 mL/min/1.73squa re meters indicate Kidney failure. The calculation forGFR is based on the CKD-EPI (2020) calculat ion. This formulais race indifferent and is the recommended for guillermina for GFRby the [facility] on for Adults.The GFR will not calculate if th e sex is unknown or if thepatient's ag e is <18 years. CREATININE (test 0.7 mg/dL 0.6-1.3 N code = CREAT) CALCIUM (test code = 9.4 mg/dL 8.0-10.5 N CA) HEPATIC FUNCTION [id number] 06:37:00 Test Item Value Reference Range Interpretation Comments TOTAL PROTEIN (test code = PROT) 5.5 g/dL 6.4-8.2 L ALBUMIN (test code = ALB) 2.70 g/dL 3.4-5.0 L BILIRUBIN TOTAL (test code = BILT) 0.70 mg/dL 0.0-1.0 N BILIRUBIN DIRECT (test code = 0.20 MG/DL 0.0-0.30 N BILD) SGOT/AST (test code = AST) 24 IUnit/L 15-37 N SGPT/ALT (test code = ALT) 18 IUnit/L 30-65 L ALKALINE PHOSPHATASE TOTAL (test 77 IUnit/L 20-125 N code = ALKP) BILIRUBIN INDIRECT (test code = 0.50 MG/DL BILIND) [id number] 06:37:00 Test Item Value Reference Range Interpretation Comments MAGNESIUM (test code = MAG) 1.81 mg/dL 1.80-2.40 N CALCIUM [id number] 06:37:00 Test Item Value Reference Range Interpretation Comments CALCIUM IONIZED (test code = KANE) 1.17 MMOL/L 1.09-1.30 N PROTHROMBIN [id number] 06:36:00 Test Item Value Reference Range Interpretation Comments PROTHROMBIN TIME 12.1 SECONDS 9.3-12.9 N PATIENT (test code = PTP) INTERNATIONAL NORMAL 1.1 0.8-1.2 N TARGET INR BY RATIO (test code = INDICATIO N Indication INR) INR1. Prophylax is of venous thrombos is 2.0 - 3.0 (orthoped ic surgery), Proph ylaxis of venous throm bosis (other than hig h-risk surgery), Treat ment of Deep Vein Thrombosis/Pulm onary Embolism, Preve ntion of systemic emb olism - Tissue heart va lves, Acute Myocardia l Infarction (to prevent systemic emboli sm), Valvular heart disease, Atrial Fibrillation, Bileaflet mecha nical valve in aortic position.2. Mec hanical prosthetic valv es (high risk), 2. 5 - 3.5 Presence of Lup us Anticoagulant o r Antiphospholipi d Antibodies, Pre vention of systemic emb olism - Acute Myocardia l Infarction (to prevent recurrent infar ct). THROMBOPLASTIN TIME [id number] 06:36:00 Test Item Value Reference Range Interpretation Comments THROMBOPLASTIN TIME 27.5 Seconds 25.0-39.5 N Therape utic Range: PARTIAL (test code = 50.4 - 88.3 Seconds PTT) Effective 07/10/2018 - XR CHEST 1 [id number] 00:00:[address] 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 Views: 1 view. COMPARISON: CR XR CHEST 1V 10/18/2022 5:36 AM FINDINGS: Tubes, catheters and devices: Interval placement of new left cardiac device is present. Lungs: The lungsare hyperexpanded. No gross consolidation. Pleural spaces: No significant pleural effusion. No significant pneumothorax. Heart/Mediastinum: Stable moderately enlarged cardiac silhouette. Postoperative median sternotomy and valvuloplasty are present. Prominent central pulmonary vasculatures appearing congested and unchanged. Bones/joints: No radiographically evident of displaced rib fracture. IMPRESSION: Interval placement of new left cardiac device is present. at 193 Reported and signed by: Nelson Martin M.D. CC: Dory Hoff MD; Yenny Boone M.D.; Paras Vidales MD; Vinny Mcgee Technologist: RT Colette(Jarad) Trnscrd Date/Time/By: 10/18/2022 (1930) : By: [email or web address] Orig Print D/T: S: 10/18/2022 (1930) PAGE 1 Signed Report- XR CHEST 1 [id number] 00:00:00 [facility] : 1945 Sex: F FAX: Dory Trevino MD [phone] [place]: St: ADM FAX: Yenny Walls MD [phone] FAX:Paras Arita MD [phone] FAX: Harriet Spain y [phone] Name: SWEETIE AMAYA [facility] : 1945 Age/S: 77/F [address] [place] [address] Unit #: [id number] Loc: [address] [address] Phys: Harriet Griffin Physic Acct: [id number] Dis Date: Status: ADM IN PHONE #: [phone] Exam Date: 2022 FAX #: [phone] Reason: Cardiac Surgery Post Op EXAMS: CPT CODE: [id number] XR CHEST 1V 74823 PROCEDURE INFORMATION: Exam: XR Chest Exam date and time: 10/18/2022 5:36 AM Age: 77 years old Clinical indication: Other: Cardiac surgery post op TECHNIQUE: Imaging protocol: Radiologic exam ofthe chest. Views: 1 view. COMPARISON: CR XR CHEST 1V 10/17/2022 5:32 AM FINDINGS: Tubes, catheters and devices: Removal of the right IJ catheter sheath. Lungs: Bilateral lung opacities have mildly improved. Pleural spaces: Small pleural effusions could be present. Heart/Mediastinum: Stable heart size.Prosthetic cardiac valve. Vasculature: Atherosclerotic calcifications. Bones/joints: Stable. Median sternotomy wires. IMPRESSION: 1. Mildly improved lung opacities. 2. Removal of the right IJ cathetersheath. No pneumothorax. at 0857 Reported and signed by: Juan Reilly M.D. 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 Shay : 1945 Sex: F FAX: Dory Trevino MD [phone] [place]: St: ADM FAX: Yenny Walls MD [phone] FAX:Paras Arita MD [phone] FAX: Harriet Spain [facility] [phone] Name: DARYLSOHASWEETIE Day [facility] : 1945 Age/S: 77/F [address] [place] [address] Unit #: [id number] Loc: [id number] [place] [address] Phys: Harriet Griffin Physic Acct: [id number] Dis Date: Status: ADM IN PHONE #: [phone] Exam Date: 2022 0533 FAX #: [phone] Reason: Cardiac Surgery Post Op EXAMS: CPT CODE: [id number] XR CHEST 1V 52229 EXAM: - XR CHEST 1 V CLINICAL HISTORY: Cardiac Surgery Post Op TECHNIQUE: Single frontal view. COMPARISON: Chest radiograph 10/16/2022, 10/15/2022 LOCATION: U19 FINDINGS: Right internal jugular vein sheath catheter is unchanged in position. Sternotomy wires and mediastinal surgical clips are present. Evidence of prior cardiac valve repair. The trachea appears normal. The mediastinum and cardiac silhouette are within the upper limits for normal size. Worsened in the signs of mild to moderate vascular congestion and central pulmonary edema. Trace layering bilateral pleural effusions with overly ing atelectasis. Visualized soft tissues and osseous structures are grossly unremarkable. IMPRESSION: Worsened signs of volume overload/pulmonary edema with trace bilateral pleural effusions. at 1002 Reported and signed by: Arnie Hayward D.O. CC: Dory Hoff MD; Yenny Boone M.D.; Paras Vidales MD; Harriet Griffin Technologist: RT Jhonatan(R) Trnscrd Date/Time/By: 10/17/2022 (1002) : By: [email or web address] Orig Print D/T:S: 10/17/2022 (1006) PAGE 1 Signed ReportCBC W/AUTO [id number] 04:52:00 Test Item Value Reference Range Interpretation Comments WHITE BLOOD CELL (test code = 13.2 x10 3/uL 4.5-11.0 H WBC) RED BLOOD CELL (test code = 2.83 x10 6/uL 3.54-5.02 L RBC) HEMOGLOBIN (test code = HGB) 8.0 g/dL 11.0-15.0 L HEMATOCRIT (test code = HCT) 24.2 % 33.0-45.0 L MEAN CELL VOLUME (test code = 85.5 fL 81.0-99.0 N MCV) MEAN CELL HGB (test code = 28.3 pg 27.0-33.0 N MCH) MEAN CELL HGB CONCETRATION 33.1 g/dL 33.0-37.0 N (test code = MCHC) RED CELL DISTRIBUTION WIDTH CV 15.0 % 11.5-14.5 H (test code = RDW) PLATELET COUNT (test code = 224 x10 3/uL 150-400 N PLT) NEUTROPHIL % (test code = NT%) 79.3 % 56.0-77.0 H LYMPHOCYTE % (test code = LY%) 9.1 % 14.0-32.0 L NEUTROPHIL # (test code = NT#) 10.50 x10 3/uL 2.0-7.6 H LYMPHOCYTE # (test code = LY#) 1.21 x10 3/uL 1.0-3.8 N MANUAL DIFF REQUIRED (test NO code = MDIFF) RED CELL DISTRIBUTION WIDTH SD 46.3 fL 37.0-54.0 N (test code = RDW-SD) MEAN PLATELET VOLUME (test 10.1 fL 7.0-9.0 H code = MPV) IMMATURE GRANULOCYTE % (test 0.5 % 0.0-2.0 N code = IG%) MONOCYTE % (test code = MO%) 7.9 % 4.8-9.0 N EOSINOPHIL % (test code = EO%) 2.7 % 0.3-3.7 N BASOPHIL % (test code = BA%) 0.5 % 0.0-2.0 N NUCLEATED RBC % (test code = 0.0 % 0-0 N NRBC%) IMMATURE GRANULOCYTE # (test 0.07 x10 3/uL 0.00-0.03 H code = IG#) MONOCYTE # (test code = MO#) 1.04 x10 3/uL 0.1-0.8 H EOSINOPHIL # (test code = EO#) 0.36 x10 3/uL 0.0-0.2 H BASOPHIL # (test code = BA#) 0.06 x10 3/uL 0.0-0.2 N NUCLEATED RBC # (test code = 0.00 x10 3/uL 0.0-0.1 N NRBC#) BASIC METABOLIC [id number] 04:51:00 Test Item Value Reference Range Interpretation Comments SODIUM (test code = 130 mEq/L 134-147 L NA) POTASSIUM (test code 4.5 mEq/L 3.4-5.0 N = K) CHLORIDE (test code 96 mEq/L 100-108 L = CL) CARBON DIOXIDE (test 30 mEq/l 21-33 N code = CO2) ANION GAP (test code 9 0-20 N = GAP) GLUCOSE (test code = 110 mg/dL 70-110 N GLU) BLOOD UREA NITROGEN 10 mg/dL 7-18 N (test code = BUN) GLOMERULAR 93.6 70-80 H The Glomerular FILTRATION RATE Filtration R ate is a (test code = GFR) calculated parameterbased on serum Creatinine, pat ient age and sex. GFR va luesless than 60 mL/min/ 1.73 square meters a re indicative ofCh ronic Kidney Disease. Values less than 15 mL/min/1.73squa re meters indicate Kidney failure. The calculation forGFR is based on the CKD-EPI (2020) calculat ion. This formulais race indifferent and is the recommended for guillermina for GFRby the [facility] for Adults.The GFR will not calculate if th e sex is unknown or if thepatient's ag e is <18 years. 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 [facility] BASIC METABOLIC [id number] 17:14:00 Test Item Value Reference Range Interpretation Comments SODIUM (test code = 125 mEq/L 134-147 L NA) POTASSIUM (test code 4.8 mEq/L 3.4-5.0 N = K) CHLORIDE (test code 95 mEq/L 100-108 L = CL) CARBON DIOXIDE (test 27 mEq/l 21-33 N code = CO2) ANION GAP (test code 8 0-20 N = GAP) GLUCOSE (test code = 124 mg/dL 70-110 H GLU) BLOOD UREA NITROGEN 10 mg/dL 7-18 N (test code = BUN) GLOMERULAR 90.1 70-80 H The Glomerular FILTRATION RATE Filtration R ate is a (test code = GFR) calculated parameterbased on serum Creatinine, pat ient age and sex. GFR va luesless than 60 mL/min/ 1.73 square meters a re indicative ofCh ronic Kidney Disease. Values less than 15 mL/min/1.73squa re meters indicate Kidney failure. The calculation forGFR is based on the CKD-EPI (2020) calculat ion. This formulais race indifferent and is the recommended for guillermina for GFRby the [facility] for Adults.The GFR will not calculate if th e sex is unknown or if thepatient's ag e is <18 years. 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 [id number] 12:43:00 Test Item Value Reference Range Interpretation Comments GLUCOSE BEDSIDE (test 126 MG/DL 70-110 H Perfor med by certified code = GLUBED) 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 [id number] 07:40:00 Test Item Value Reference Range Interpretation Comments GLUCOSE BEDSIDE (test 111 MG/DL 70-110 H Perfor med by certified code = GLUBED) 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 [facility] CBC W/AUTO [id number] 04:23:00 Test Item Value Reference Range Interpretation Comments WHITE BLOOD CELL (test code = 14.9 x10 3/uL 4.5-11.0 H WBC) RED BLOOD CELL (test code = 2.87 x10 6/uL 3.54-5.02 L RBC) HEMOGLOBIN (test code = HGB) 8.2 g/dL 11.0-15.0 L HEMATOCRIT (test code = HCT) 24.3 % 33.0-45.0 L MEAN CELL VOLUME (test code = 84.7 fL 81.0-99.0 N MCV) MEAN CELL HGB (test code = 28.6 pg 27.0-33.0 N MCH) MEAN CELL HGB CONCETRATION 33.7 g/dL 33.0-37.0 N (test code = MCHC) RED CELL DISTRIBUTION WIDTH CV 14.7 % 11.5-14.5 H (test code = RDW) RED CELL DISTRIBUTION WIDTH SD 45.1 fL 37.0-54.0 N (test code = RDW-SD) PLATELET COUNT (test code = 170 x10 3/uL 150-400 N PLT) MEAN PLATELET VOLUME (test 10.6 fL 7.0-9.0 H code = MPV) NEUTROPHIL % (test code = NT%) 81.4 % 56.0-77.0 H IMMATURE GRANULOCYTE % (test 0.7 % 0.0-2.0 N code = IG%) LYMPHOCYTE % (test code = LY%) 8.1 % 14.0-32.0 L MONOCYTE % (test code = MO%) 7.3 % 4.8-9.0 N EOSINOPHIL % (test code = EO%) 2.2 % 0.3-3.7 N BASOPHIL % (test code = BA%) 0.3 % 0.0-2.0 N NUCLEATED RBC % (test code = 0.0 % 0-0 N NRBC%) NEUTROPHIL # (test code = NT#) 12.12 x10 3/uL 2.0-7.6 H IMMATURE GRANULOCYTE # (test 0.10 x10 3/uL 0.00-0.03 H code = IG#) LYMPHOCYTE # (test code = LY#) 1.20 x10 3/uL 1.0-3.8 N MONOCYTE # (test code = MO#) 1.09 x10 3/uL 0.1-0.8 H EOSINOPHIL # (test code = EO#) 0.33 x10 3/uL 0.0-0.2 H BASOPHIL # (test code = BA#) 0.04 x10 3/uL 0.0-0.2 N NUCLEATED RBC # (test code = 0.00 x10 3/uL 0.0-0.1 N NRBC#) MANUAL DIFF REQUIRED (test NO code = MDIFF) BASIC METABOLIC [id number] 03:57:00 Test Item Value Reference Range Interpretation Comments SODIUM (test code = 128 mEq/L 134-147 L NA) POTASSIUM (test code 5.0 mEq/L 3.4-5.0 N = K) CHLORIDE (test code 94 mEq/L 100-108 L = CL) CARBON DIOXIDE (test 30 mEq/l 21-33 N code = CO2) ANION GAP (test code 9 0-20 N = GAP) GLUCOSE (test code = 138 mg/dL 70-110 H GLU) BLOOD UREA NITROGEN 13 mg/dL 7-18 N (test code = BUN) GLOMERULAR 90.1 70-80 H The Glomerular FILTRATION RATE Filtration R ate is a (test code = GFR) calculated parameterbased on serum Creatinine, pat ient age and sex. GFR va luesless than 60 mL/min/ 1.73 square meters a re indicative ofCh ronic Kidney Disease. Values less than 15 mL/min/1.73squa re meters indicate Kidney failure. The calculation forGFR is based on the CKD-EPI (2020) calculat ion. This formulais race indifferent and is the recommended for guillermina for GFRby the [facility] on for Adults.The GFR will not calculate if th e sex is unknown or if thepatient's ag e is <18 years. CREATININE (test 0.7 mg/dL 0.6-1.3 N code = CREAT) CALCIUM (test code = 9.0 mg/dL 8.0-10.5 N CA) [id number] 03:57:00 Test Item Value Reference Range Interpretation Comments MAGNESIUM (test code = MAG) 2.09 mg/dL 1.80-2.40 N - XR CHEST 1 [id number] 00:00:00 [facility] : 1945 Sex: F FAX: Dory Trevino MD [phone] [place]: St: ADM FAX: Yenny Walls MD [phone] FAX:Paras Arita MD [phone] FAX: Harriet Spain y [phone] Name: SWEETIE AMAYA [facility] : 1945 Age/S: 77/F [address] [place] [address] Unit #: [id number] Loc: .[address] [place] [address] Phys: Harriet Griffin Physic Acct: [id number] Dis Date: Status: ADM IN PHONE #: [phone] Exam Date: 2022 FAX #: [phone] Reason: Cardiac Surgery Post Op EXAMS: CPT CODE: [id number] XR CHEST 1V 27054 PROCEDURE INFORMATION: Exam: XR Chest Exam date and time: 10/16/2022 6:11 AM Age: 77 years old Clinical indication: Condition or disease; Other: Cardiac surgery post op TECHNIQUE: Imaging protocol: Radiologic exam of the chest. Views: 1 view. COMPARISON: CR XR CHEST 1V 10/15/2022 6:15 AM FINDINGS: Lungs: Bilateral perihilar and basilar opacities. Are the no new areas of airspace disease. Pleural spaces: Likely small pleural effusions. No pneumothorax. Heart/Mediastinum: Heart is stable size.Status post median sternotomy. Involving the replacement noted. Vasculature: Right IJ sheath noted.Bones/joints: Osseous structures are unchanged. IMPRESSION: Stable radiographic appearance of the chest at 0705 Reported and signed by: Hudson Lechuga M.D. 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 [facility] GLUCOSE [id number] 07:29:00 Test Item Value Reference Range Interpretation Comments GLUCOSE BEDSIDE (test 118 MG/DL 70-110 H Perfor med by certified code = GLUBED) 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 [facility] BASIC METABOLIC [id number] 06:22:00 Test Item Value Reference Range Interpretation Comments SODIUM (test code = 126 mEq/L 134-147 L NA) POTASSIUM (test code 4.8 mEq/L 3.4-5.0 N = K) CHLORIDE (test code 95 mEq/L 100-108 L = CL) CARBON DIOXIDE (test 27 mEq/l 21-33 N code = CO2) ANION GAP (test code 9 0-20 N = GAP) GLUCOSE (test code = 134 mg/dL 70-110 H GLU) BLOOD UREA NITROGEN 12 mg/dL 7-18 N (test code = BUN) GLOMERULAR 90.1 70-80 H The Glomerular FILTRATION RATE Filtration R ate is a (test code = GFR) calculated parameterbased on serum Creatinine, pat ient age and sex. GFR va luesless than 60 mL/min/ 1.73 square meters a re indicative ofCh ronic Kidney Disease. Values less than 15 mL/min/1.73squa re meters indicate Kidney failure. The calculation forGFR is based on the CKD-EPI (2020) calculat ion. This formulais race indifferent and is the recommended for guillermina for GFRby the [facility] on for Adults.The GFR will not calculate if th e sex is unknown or if thepatient's ag e is <18 years. CREATININE (test 0.7 mg/dL 0.6-1.3 N code = CREAT) CALCIUM (test code = 8.5 mg/dL 8.0-10.5 N CA) COMMENTS: POD #1HEPATIC FUNCTION [id number] 06:22:00 Test Item Value Reference Range Interpretation Comments TOTAL PROTEIN (test code = PROT) 5.3 g/dL 6.4-8.2 L ALBUMIN (test code = ALB) 2.80 g/dL 3.4-5.0 L BILIRUBIN TOTAL (test code = BILT) 0.60 mg/dL 0.0-1.0 N BILIRUBIN DIRECT (test code = 0.20 MG/DL 0.0-0.30 BILD) BILIRUBIN INDIRECT (test code = 0.40 MG/DL BILIND) SGOT/AST (test code = AST) 20 IUnit/L 15-37 N SGPT/ALT (test code = ALT) 13 IUnit/L 30-65 L ALKALINE PHOSPHATASE TOTAL (test 77 IUnit/L 20-125 N code = ALKP) COMMENTS: POD #[id number] 06:22:00 Test Item Value Reference Range Interpretation Comments MAGNESIUM (test code = MAG) 1.91 mg/dL 1.80-2.40 N COMMENTS: POD #1CBC W/AUTO [id number] 06:12:00 Test Item Value Reference Range Interpretation Comments WHITE BLOOD CELL (test code = 13.4 x10 3/uL 4.5-11.0 H WBC) RED BLOOD CELL (test code = 2.73 x10 6/uL 3.54-5.02 L RBC) HEMOGLOBIN (test code = HGB) 7.8 g/dL 11.0-15.0 L HEMATOCRIT (test code = HCT) 23.2 % 33.0-45.0 L MEAN CELL VOLUME (test code = 85.0 fL 81.0-99.0 N MCV) MEAN CELL HGB (test code = 28.6 pg 27.0-33.0 N MCH) MEAN CELL HGB CONCETRATION 33.6 g/dL 33.0-37.0 N (test code = MCHC) RED CELL DISTRIBUTION WIDTH CV 14.8 % 11.5-14.5 H (test code = RDW) RED CELL DISTRIBUTION WIDTH SD 45.8 fL 37.0-54.0 N (test code = RDW-SD) PLATELET COUNT (test code = 115 x10 3/uL 150-400 L PLT) MEAN PLATELET VOLUME (test 11.2 fL 7.0-9.0 H code = MPV) NEUTROPHIL % (test code = NT%) 77.3 % 56.0-77.0 H IMMATURE GRANULOCYTE % (test 0.6 % 0.0-2.0 N code = IG%) LYMPHOCYTE % (test code = LY%) 9.5 % 14.0-32.0 L MONOCYTE % (test code = MO%) 9.3 % 4.8-9.0 H EOSINOPHIL % (test code = EO%) 3.1 % 0.3-3.7 N BASOPHIL % (test code = BA%) 0.2 % 0.0-2.0 N NUCLEATED RBC % (test code = 0.0 % 0-0 N NRBC%) NEUTROPHIL # (test code = NT#) 10.33 x10 3/uL 2.0-7.6 H IMMATURE GRANULOCYTE # (test 0.08 x10 3/uL 0.00-0.03 H code = IG#) LYMPHOCYTE # (test code = LY#) 1.27 x10 3/uL 1.0-3.8 N MONOCYTE # (test code = MO#) 1.24 x10 3/uL 0.1-0.8 H EOSINOPHIL # (test code = EO#) 0.42 x10 3/uL 0.0-0.2 H BASOPHIL # (test code = BA#) 0.03 x10 3/uL 0.0-0.2 N NUCLEATED RBC # (test code = 0.00 x10 3/uL 0.0-0.1 N NRBC#) MANUAL DIFF REQUIRED (test NO code = MDIFF) - DUP VEIN [facility]/[id number] 00:00:00 [facility] : 1945 Sex: F Name: SWEETIE AMAYA [facility] : 1945 Age/S: 77 / F [address] [place] [address] Bl Unit #: [id number] Loc: [place] [address] Phys: Myles Aguayo MD Acct: [id number] Dis Date: Status: ADMIN PHONE #: [phone] Exam Date: 10/15/20222025 FAX #: [phone] Reason: LEFT ARM SWELLING EXAMS: CPT CODE: [id number] DUP VEIN UNI/LTD 36043 PROCEDURE INFORMATION: Exam: US Duplex Left Upper Extremity Veins, Limited Exam date and time: 10/15/2022 8:08 PM Age: 77 years old Clinical indication: Edema, localized; Upper extremity, left; Additional info: Left arm swelling TECHNIQUE: Imaging protocol: Real-time duplex ultrasound of the left extremity with 2-D avila scale, color Doppler flow and spectral waveform analysis including responses to compression and other maneuvers (when performed) with image documentation. Limited exam focused on the left upper extremity veins. COMPARISON: US DUP EXTRACRANIAL ANGI 10/11/2022 11:43 PM FINDINGS: Left deep veins: Axillary and brachial veins are patent throughout without thrombus. Normal Doppler waveforms. Normal compressibility and/or augmentation response. Visualized internal jugular and subclavian veins are patent. Left superficial veins: Visualized cephalic and basilic veins are patent without thrombus. Soft tissues: Edema in the left upper extremity. IMPRESSION: No deep venous thrombosis is seen in the visualized left upper extremity. at 2056 Reported and signed by: Maurilio Bryant M.D. CC: Dory Hoff MD; Yenny Boone M.D.; Myles Aguayo MD; Paras Vidales MD Technologist: Piedad Riggins RDMS(AB)(OB) Trnscb Date/Time: 10/15/2022 (2056) [email or web address] Orig Print D/T: S: 10/15/2022 (2057) Probe: PAGE 1 Signed Report- XR CHEST 1 [id number] 00:00:00 [facility] : 1945 Sex: F FAX: Dory Trevino MD [phone] [place]: St: ADM FAX: Yenny Walls MD [phone] FAX:Paras Arita MD [phone] FAX: Harriet Spain [facility] [phone] Name: SWEETIE AMAYA [facility] : 1945 Age/S: 77/F [address] [place] [address] Unit #: [id number] Loc: [address] [place] [address] Phys: Harriet Griffin Physic Acct: [id number] Dis Date: Status: ADM IN PHONE #: [phone] Exam Date: 2022 06 FAX #: [phone] Reason: Cardiac Surgery Post Op EXAMS: CPT CODE: [id number] XR CHEST 1 V [id number] PROCEDURE INFORMATION: Exam: XR Chest Exam date and time: 10/15/2022 6:15 AM Age: 77 years old Clinical indication: Condition or disease; Other: Cardiac surgery post op TECHNIQUE: Imaging protocol: Radiologic exam of the chest. Views: 1 view. COMPARISON: CR XR CHEST 1V 10/14/2022 5:34 AM FINDINGS: Tubes, catheters and devices: Right IJ catheter remains in place. Lungs: Significant interval improvement in bilateral pulmonary opacities. Improved aeration lung bases. Mild residual basilar opacities. Pleural spaces: Possible trace pleural effusions. No pneumothorax. Heart/Mediastinum: The heart size is stable. Status post median sternotomy and valvular replacement. Bones/joints: Unchanged. IMPRESSION: Significant interval improvement in bilateral pulmonary opacities. at 0720 Reported and signed by: Hudson Lechuga M.D. 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 [id number] 16:55:00 Test Item Value Reference Range Interpretation Comments GLUCOSE BEDSIDE (test 149 MG/DL 70-110 H Perfor med by certified code = GLUBED) 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 [facility] [id number] 12:37:00 Test Item Value Reference Interpretation Comments Range SURGICAL (test code = SR) RUN DATE: 10/14/22 [place] - LAB PAGE 1 RUN TIME: 1237 Specimen Inquiry RUN USER: INTERFACE PATIENT: SWEETIE AMAYA LOC: CRISTINA U #: [id number] AGE/SX: 77/F [place] [facility] [place] RE10/11/22REG DR: Dory Hoff MD : 49 BED: 1 DIS: STATUS: ADM IN TLOC: SPEC #: [id number] RECD: 10/13/22 STATUS: ANGELIC OLIVIA #: [id number] RAHEL: 10/12/22- SUBM DR: Navdeep Carey MD ENTERED: 10/13/22-1023 SP TYPE: SURGICAL OTHR DR: Vivi Bowden MD, Abdul Hannan MD McCann, Michael T MD Mouchli, Anas MD Raslan, Saleem MDORDERED: [id number], ANATOMIC SPEC COPIES TO: Vivi Bowden MD [address] [place] [address] Navdeep Carey MD [address] [facility]. [address] [place] [address] Yenny Boone MD [address] [place] [address] [email or web address] Sumanth Gray MD [address] [place] [address] Paras Vidales MD [address] [facility] [address] [place] [address] PROCEDURES: 16439 (10/13/22-102) TISSUES: A. ATRIUM - LEFT ATRIAL APPENDAGE CONTINUED ON NEXT PAGE RUN DATE: 10/14/22 [place] - LAB PAGE 2 RUN TIME: 1237 Specimen Inquiry RUN USER: INTERFACE SPEC #: [id number] PATIENT: SWEETIE AMAYA N #[id number] (Continued) - CLINICAL HISTORY SAME FINAL DIAGNOSIS Heart, left atrial appendage, wedge biopsy: Multiple foci of myocardial infarct. GROSS DESCRIPTION Received in formalin labeled "left atrial appendage "is a wedge biopsy of heart, 3.8 x 2.5x 1.3 cm, sectioned and entirely submitted (A)-(B). Technical component performed at [facility],[address] [place] [address], [place] [address] Unless gross only, the diagnosis is based upon microscopic examination.Immunohistochemistry: This test was developed and its performance characteristicsdetermined by this laboratory. It has not been approved nor does it need approvalby the [place] FDA. Appropriate positive and negative controls are reviewed and judgedto be acceptable for performedimmunohistochemistry and/or special stains. This laboratoryis certified under the Clinical Laboratory Improvement Amendments (CLIA-88) as qualified toperform high complexity clinical laboratory testing. 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 [facility] - XR CHEST 1 [id number] 09:50:00 [facility] : 1945 Sex: F FAX: Dory Trevino MD [phone] [place]: St: ADM FAX: Yenny Walls MD [phone] FAX:Paras Arita MD [phone] FAX: Harriet Spain y [phone] Name: SWEETIE AMAYA [facility] : 1945 Age/S: 77/F [address] [place] [address] Unit #: [id number] Loc: [address] [address] Phys: Harriet Griffin Physic Acct: [id number] Dis Date: Status: ADM IN PHONE #: [phone] Exam Date: 2022 0658 FAX #: [phone] Reason: Cardiac Surgery Post Op EXAMS: CPT CODE: [id number] XR CHEST 1V 85088 Location: 9 EXAM: - XR CHEST 1 V INDICATION: Cardiac Surgery Post Op COMPARISON: 10/13/2022 TECHNIQUE: AP Chest FINDINGS: Lines, tubes and hardware: Interval removal of a right-sided [place]-Jen catheter. Unchanged right-sided CVC sheath. An artificial heart valve, mediastinal drain and left-sided chest tube are approximately unchanged. Lungs and pleura: Slight interval worsening of bilateral pulmonary opacities with perihilar, lower lobe and retrocardiac predominance, right slightly worse than left. Suspected small bilateral pleural effusions, similar to slightly increased in size. No appr eciable pneumothorax. Heart/mediastinum: The cardiomediastinal silhouette is enlarged, but stable. Bones/soft tissues: No acute bony abnormality. IMPRESSION: 1. Lines and tubes, as above. 2. Slight interval worsening of bilateral pulmonary opacities, with possibilities including any combination of atelectatic change and/or pulmonary edema. Pneumonia is thought to be less likely, but not excluded. 3. Suspected small bilateral pleural effusions, similar to slightly increased in size. PAGE 1 Signed Report (CONTINUED) FAX: Dory Trevino MD [phone] [place]: St: ADM FAX: Yenny Walls MD [phone] FAX: Paras Arita MD [phone] FAX: Harriet Spain [phone] Name: SWEETIE AMAYA [facility] : 1945 Age/S: 77/F [address] [place] [address] Unit #: [id number] Loc: G.2208 [facility] [id number] Phys: Harriet Griffin Acct: [id number] Dis Date: Status: ADM IN PHONE #: [phone] Date: 10/14/2022657 FAX #: [phone] Reason: Cardiac Surgery Post Op EXAMS: CPT CODE: [id number] XR CHEST 1 V 93942 (Continued) at 0950 Reported and signed by: Christoph Sky M.D. 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 [facility] POC ARTERIAL BLOOD [id number] 03:43:00 Test Item Value Reference Range Interpretation Comments POC ARTERIAL BLOOD GAS PH (test 7.453 7.35-7.45 H code = POCPHA) POC ARTERIAL BLOOD GAS PCO2 36.6 mmHg 35.0-45 N (test code = [id number]) POC TCO2 ARTERIAL (test code = 26.9 POCTCO2) POC ARTERIAL BLOOD GAS PO2 (test 63.0 mmHg 80-100.0 L code = YRWZE9N) POC HCO3 ARTERIAL (test code = 25.7 MMOL/L 22.0-26.0 N PLOBYG0P) POC BASE EXCESS (test code = 1.6 MMOL/L -4.0-4.0 N POCBEA) POC O2 SATURATION (test code = 93.5 % 90-100 N POCO2S) FIO2 (test code = FIO2A) 28 % PaO2/FiO2 (test code = [id number]) 225.00 mm/Hg ABG DELIVERY (test code = GILBERT) Cannula ABG TEMPERATURE (test code = 97.4 F TEMPA) ABG SITE (test code = SITEA) Art Line BASIC METABOLIC [id number] 03:43:00 Test Item Value Reference Range Interpretation Comments SODIUM (test code = NA/ABG) 127 mmol/L 134-147 L POTASSIUM (test code = K/ABG) 5.1 mmol/L 3.4-5.0 H CHLORIDE (test code = CL/ABG) 93 mmol/L 100-108 L CREATININE ABG (test code = 0.7 mg/dL 0.6-1.0 N CREAABG) POC IONIZED CALCIUM (test code = 1.28 MMOL/L 1.12-1.32 N POCCA) POC GLUCOSE (test code = POCGLU) 186 MG/DL 70-110 H HEMOGLOBIN [id number] 03:43:00 Test Item Value Reference Range Interpretation Comments HEMOGLOBIN ABG (test code = 10.7 G/DL 11.0-15.0 L HGB/ABG) [id number] 03:43:00 Test Item Value Reference Range Interpretation Comments HEMATOCRIT (test code = HCT/ABG) 31 % 33.0-45.0 L BASIC METABOLIC [id number] 03:25:00 Test Item Value Reference Range Interpretation Comments SODIUM (test code = 129 mEq/L 134-147 L NA) POTASSIUM (test code 4.9 mEq/L 3.4-5.0 N = K) CHLORIDE (test code 97 mEq/L 100-108 L = CL) CARBON DIOXIDE (test 28 mEq/l 21-33 N code = CO2) ANION GAP (test code 10 0-20 N = GAP) GLUCOSE (test code = 182 mg/dL 70-110 H GLU) BLOOD UREA NITROGEN 14 mg/dL 7-18 N (test code = BUN) GLOMERULAR 76.8 70-80 N The Glomerular FILTRATION RATE Filtration R ate is a (test code = GFR) calculated parameterbased on serum Creatinine, pat ient age and sex. GFR va luesless than 60 mL/min/ 1.73 square meters a re indicative ofCh ronic Kidney Disease. Values less than 15 mL/min/1.73squa re meters indicate Kidney failure. The calculation forGFR is based on the CKD-EPI (2020) calculat ion. This formulais race indifferent and is the recommended for guillermina for GFRby the [facility] on for Adults.The GFR will not calculate if th e sex is unknown or if thepatient's ag e is <18 years. CREATININE (test 0.8 mg/dL 0.6-1.3 N code = CREAT) CALCIUM (test code = 8.0 mg/dL 8.0-10.5 N CA) COMMENTS: POD #1HEPATIC FUNCTION [id number] 03:25:00 Test Item Value Reference Range Interpretation Comments TOTAL PROTEIN (test code = PROT) 4.9 g/dL 6.4-8.2 L ALBUMIN (test code = ALB) 2.90 g/dL 3.4-5.0 L BILIRUBIN TOTAL (test code = BILT) 0.70 mg/dL 0.0-1.0 N BILIRUBIN DIRECT (test code = 0.30 MG/DL 0.0-0.30 BILD) BILIRUBIN INDIRECT (test code = 0.40 MG/DL BILIND) SGOT/AST (test code = AST) 29 IUnit/L 15-37 N SGPT/ALT (test code = ALT) 18 IUnit/L 30-65 L ALKALINE PHOSPHATASE TOTAL (test 65 IUnit/L 20-125 N code = ALKP) COMMENTS: POD #[id number] 03:25:00 Test Item Value Reference Range Interpretation Comments MAGNESIUM (test code = MAG) 1.90 mg/dL 1.80-2.40 N COMMENTS: POD #1CBC W/AUTO [id number] 03:09:00 Test Item Value Reference Range Interpretation Comments WHITE BLOOD CELL (test code = 16.8 x10 3/uL 4.5-11.0 H WBC) RED BLOOD CELL (test code = 2.67 x10 6/uL 3.54-5.02 L RBC) HEMOGLOBIN (test code = HGB) 7.6 g/dL 11.0-15.0 L HEMATOCRIT (test code = HCT) 22.5 % 33.0-45.0 L MEAN CELL VOLUME (test code = 84.3 fL 81.0-99.0 N MCV) MEAN CELL HGB (test code = 28.5 pg 27.0-33.0 N MCH) MEAN CELL HGB CONCETRATION 33.8 g/dL 33.0-37.0 N (test code = MCHC) RED CELL DISTRIBUTION WIDTH CV 14.9 % 11.5-14.5 H (test code = RDW) RED CELL DISTRIBUTION WIDTH SD 46.0 fL 37.0-54.0 N (test code = RDW-SD) PLATELET COUNT (test code = 106 x10 3/uL 150-400 L PLT) MEAN PLATELET VOLUME (test 10.8 fL 7.0-9.0 H code = MPV) NEUTROPHIL % (test code = NT%) 81.2 % 56.0-77.0 H IMMATURE GRANULOCYTE % (test 0.5 % 0.0-2.0 N code = IG%) LYMPHOCYTE % (test code = LY%) 7.5 % 14.0-32.0 L MONOCYTE % (test code = MO%) 9.6 % 4.8-9.0 H EOSINOPHIL % (test code = EO%) 1.0 % 0.3-3.7 N BASOPHIL % (test code = BA%) 0.2 % 0.0-2.0 N NUCLEATED RBC % (test code = 0.0 % 0-0 N NRBC%) NEUTROPHIL # (test code = NT#) 13.68 x10 3/uL 2.0-7.6 H IMMATURE GRANULOCYTE # (test 0.09 x10 3/uL 0.00-0.03 H code = IG#) LYMPHOCYTE # (test code = LY#) 1.26 x10 3/uL 1.0-3.8 N MONOCYTE # (test code = MO#) 1.61 x10 3/uL 0.1-0.8 H EOSINOPHIL # (test code = EO#) 0.17 x10 3/uL 0.0-0.2 N BASOPHIL # (test code = BA#) 0.03 x10 3/uL 0.0-0.2 N NUCLEATED RBC # (test code = 0.00 x10 3/uL 0.0-0.1 N NRBC#) MANUAL DIFF REQUIRED (test NO code = MDIFF) GLUCOSE [id number] 20:26:00 Test Item Value Reference Range Interpretation Comments GLUCOSE BEDSIDE (test 160 MG/DL 70-110 H Perfor med by certified code = GLUBED) 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 [id number] 16:32:00 Test Item Value Reference Range Interpretation Comments GLUCOSE BEDSIDE (test 168 MG/DL 70-110 H Perfor med by certified code = GLUBED) 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 [id number] 12:01:00 Test Item Value Reference Range Interpretation Comments GLUCOSE BEDSIDE (test 151 MG/DL 70-110 H Perfor med by certified code = GLUBED) 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 [id number] 10:06:00 Test Item Value Reference Range Interpretation Comments GLUCOSE BEDSIDE (test 127 MG/DL 70-110 H Perfor med by certified code = GLUBED) 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 [id number] 08:33:00 Test Item Value Reference Range Interpretation Comments GLUCOSE BEDSIDE (test 106 MG/DL 70-110 N Perfor med by certified code = GLUBED) 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 [id number] 06:12:00 Test Item Value Reference Range Interpretation Comments GLUCOSE BEDSIDE (test 131 MG/DL 70-110 H Perfor med by certified code = GLUBED) 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 [id number] 05:10:00 Test Item Value Reference Range Interpretation Comments GLUCOSE BEDSIDE (test 123 MG/DL 70-110 H Perfor med by certified code = GLUBED) 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 [facility] [id number] 03:44:00 Test Item Value Reference Range Interpretation Comments MAGNESIUM (test code = MAG) 2.13 mg/dL 1.80-2.40 COMMENTS: POD #1BASIC METABOLIC [id number] 03:44:00 Test Item Value Reference Range Interpretation Comments SODIUM (test code = 136 mEq/L 134-147 N NA) POTASSIUM (test code 4.7 mEq/L 3.4-5.0 N = K) CHLORIDE (test code 106 mEq/L 100-108 N = CL) CARBON DIOXIDE (test 28 mEq/l 21-33 N code = CO2) ANION GAP (test code 7 0-20 N = GAP) GLUCOSE (test code = 138 mg/dL 70-110 H GLU) BLOOD UREA NITROGEN 12 mg/dL 7-18 N (test code = BUN) GLOMERULAR 76.8 70-80 N The Glomerular FILTRATION RATE Filtration R ate is a (test code = GFR) calculated parameterbased on serum Creatinine, pat ient age and sex. GFR va luesless than 60 mL/min/ 1.73 square meters a re indicative ofCh ronic Kidney Disease. Values less than 15 mL/min/1.73squa re meters indicate Kidney failure. The calculation forGFR is based on the CKD-EPI (2020) calculat ion. This formulais race indifferent and is the recommended for guillermina for GFRby the [facility] on for Adults.The GFR will not calculate if th e sex is unknown or if thepatient's ag e is <18 years. CREATININE (test 0.8 mg/dL 0.6-1.3 N code = CREAT) CALCIUM (test code = 8.3 mg/dL 8.0-10.5 N CA) COMMENTS: POD #1HEPATIC FUNCTION [id number] 03:44:00 Test Item Value Reference Range Interpretation Comments TOTAL PROTEIN (test code = PROT) 4.7 g/dL 6.4-8.2 L ALBUMIN (test code = ALB) 2.90 g/dL 3.4-5.0 L BILIRUBIN TOTAL (test code = BILT) 0.60 mg/dL 0.0-1.0 N BILIRUBIN DIRECT (test code = 0.20 MG/DL 0.0-0.30 N BILD) BILIRUBIN INDIRECT (test code = 0.40 MG/DL BILIND) SGOT/AST (test code = AST) 56 IUnit/L 15-37 H SGPT/ALT (test code = ALT) 34 IUnit/L 30-65 N ALKALINE PHOSPHATASE TOTAL (test 57 IUnit/L 20-125 N code = ALKP) COMMENTS: POD #1CBC W/AUTO [id number] 03:26:00 Test Item Value Reference Range Interpretation Comments WHITE BLOOD CELL (test code = 16.1 x10 3/uL 4.5-11.0 H WBC) RED BLOOD CELL (test code = 2.84 x10 6/uL 3.54-5.02 L RBC) HEMOGLOBIN (test code = HGB) 8.2 g/dL 11.0-15.0 L HEMATOCRIT (test code = HCT) 24.4 % 33.0-45.0 L MEAN CELL VOLUME (test code = 85.9 fL 81.0-99.0 N MCV) MEAN CELL HGB (test code = 28.9 pg 27.0-33.0 N MCH) MEAN CELL HGB CONCETRATION 33.6 g/dL 33.0-37.0 N (test code = MCHC) RED CELL DISTRIBUTION WIDTH CV 14.8 % 11.5-14.5 H (test code = RDW) RED CELL DISTRIBUTION WIDTH SD 47.2 fL 37.0-54.0 N (test code = RDW-SD) PLATELET COUNT (test code = 128 x10 3/uL 150-400 L PLT) MEAN PLATELET VOLUME (test 10.6 fL 7.0-9.0 H code = MPV) NEUTROPHIL % (test code = NT%) 85.4 % 56.0-77.0 H IMMATURE GRANULOCYTE % (test 0.5 % 0.0-2.0 N code = IG%) LYMPHOCYTE % (test code = LY%) 6.0 % 14.0-32.0 L MONOCYTE % (test code = MO%) 7.8 % 4.8-9.0 N EOSINOPHIL % (test code = EO%) 0.1 % 0.3-3.7 L BASOPHIL % (test code = BA%) 0.2 % 0.0-2.0 N NUCLEATED RBC % (test code = 0.0 % 0-0 N NRBC%) NEUTROPHIL # (test code = NT#) 13.78 x10 3/uL 2.0-7.6 H IMMATURE GRANULOCYTE # (test 0.08 x10 3/uL 0.00-0.03 H code = IG#) LYMPHOCYTE # (test code = LY#) 0.97 x10 3/uL 1.0-3.8 L MONOCYTE # (test code = MO#) 1.26 x10 3/uL 0.1-0.8 H EOSINOPHIL # (test code = EO#) 0.01 x10 3/uL 0.0-0.2 N BASOPHIL # (test code = BA#) 0.03 x10 3/uL 0.0-0.2 N NUCLEATED RBC # (test code = 0.00 x10 3/uL 0.0-0.1 N NRBC#) MANUAL DIFF REQUIRED (test NO code = MDIFF) BASIC METABOLIC [id number] 03:19:00 Test Item Value Reference Range Interpretation Comments SODIUM (test code = NA/ABG) 135 mmol/L 134-147 N POTASSIUM (test code = K/ABG) 4.7 mmol/L 3.4-5.0 N CHLORIDE (test code = CL/ABG) 101 mmol/L 100-108 N CREATININE ABG (test code = 0.7 mg/dL 0.6-1.0 N CREAABG) POC IONIZED CALCIUM (test code = 1.27 MMOL/L 1.12-1.32 N POCCA) POC GLUCOSE (test code = POCGLU) 135 MG/DL 70-110 H HEMOGLOBIN [id number] 03:19:00 Test Item Value Reference Range Interpretation Comments HEMOGLOBIN ABG (test code = HGB/ABG) 8.2 G/DL 11.0-15.0 L [id number] 03:19:00 Test Item Value Reference Range Interpretation Comments HEMATOCRIT (test code = HCT/ABG) 24 % 33.0-45.0 L POC LACTIC [id number] 03:19:00 Test Item Value Reference Range Interpretation Comments POC LACTIC ACID (test code = 1.2 mmol/l 0.9-1.7 N POCLAC) POC VENOUS BLOOD [id number] 03:19:00 Test Item Value Reference Range Interpretation Comments POC VENOUS BLOOD GAS PH (test 7.389 7.33-7.45 N code = POCPHV) POC VENOUS BLOOD GAS PCO2 (test 45.3 mmHg 43-47 N code = UNOYQC0W) POC VENOUS BLOOD GAS PO2 (test 37.5 mmHG 10-50 N code = PSTCZ4I) POC TCO2 VENOUS (test code = 28.6 TASPRI7L) POC HCO3 VENOUS (test code = 27.3 MMOL/L 22-27 H DRNTQF7R) POC BASE EXCESS VENOUS (test code 2.4 MMOL/L -4.0-4.0 N = POCBEV) POC O2 SATURATION VENOUS (test 68.7 % 60-80 N code = ZVJR3JQ) VENOUS BLOOD GAS TEMP (test code 99.5 F = TEMPV) VENOUS BLOOD GAS SITE (test code Art Line = SITEV) POC ARTERIAL BLOOD [id number] 03:11:00 Test Item Value Reference Range Interpretation Comments POC ARTERIAL BLOOD GAS PH (test 7.419 7.35-7.45 N code = POCPHA) POC ARTERIAL BLOOD GAS PCO2 (test 41.2 mmHg 35.0-45 N code = [id number]) POC TCO2 ARTERIAL (test code = 27.7 POCTCO2) POC ARTERIAL BLOOD GAS PO2 (test 82.1 mmHg 80-100.0 N code = CMPKD8D) POC HCO3 ARTERIAL (test code = 26.5 MMOL/L 22.0-26.0 H WMSUIY5G) POC BASE EXCESS (test code = 2.1 MMOL/L -4.0-4.0 N POCBEA) POC O2 SATURATION (test code = 95.9 % 90-100 N POCO2S) ABG DELIVERY (test code = GILBERT) 3LNC ABG TEMPERATURE (test code = 99.5 F TEMPA) ABG SITE (test code = SITEA) Art Line BASIC METABOLIC [id number] 03:11:00 Test Item Value Reference Range Interpretation Comments SODIUM (test code = NA/ABG) 135 mmol/L 134-147 N POTASSIUM (test code = K/ABG) 4.9 mmol/L 3.4-5.0 N CHLORIDE (test code = CL/ABG) 100 mmol/L 100-108 N CREATININE ABG (test code = 0.7 mg/dL 0.6-1.0 N CREAABG) POC IONIZED CALCIUM (test code = 1.26 MMOL/L 1.12-1.32 N POCCA) POC GLUCOSE (test code = POCGLU) 139 MG/DL 70-110 H HEMOGLOBIN [id number] 03:11:00 Test Item Value Reference Range Interpretation Comments HEMOGLOBIN ABG (test code = HGB/ABG) 8.2 G/DL 11.0-15.0 L [id number] 03:11:00 Test Item Value Reference Range Interpretation Comments HEMATOCRIT (test code = HCT/ABG) 24 % 33.0-45.0 L POC LACTIC [id number] 03:11:00 Test Item Value Reference Range Interpretation Comments POC LACTIC ACID (test code = 1.4 mmol/l 0.9-1.7 N POCLAC) GLUCOSE [id number] 02:19:00 Test Item Value Reference Range Interpretation Comments GLUCOSE BEDSIDE (test 143 MG/DL 70-110 H Perfor med by certified code = GLUBED) 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 : 1945 Sex: F FAX: Dory Trevino MD [phone] [place]: St: ADM FAX: Yenny Walls MD [phone] FAX:Paras Arita MD [phone] FAX: Harriet Spain [facility] [phone] Name: SWEETIE AMAYA [facility] : 1945 Age/S: 77/F [address] [place] [address] Unit #: [id number] Loc: [address] [address] Phys: Harriet Griffin Physic Acct: [id number] Dis Date: Status: ADM IN PHONE #: [phone] Exam Date: 10/13 FAX #: [phone] Reason: Cardiac Surgery Post Op EXAMS: CPT CODE: [id number] XR CHEST 1V 91515 PROCEDURE INFORMATION: Exam: XR Chest Exam date and time: 10/13/2022 5:18 AM Age: 77 years old Clinical indication: Other: Cardiac surgery post op TECHNIQUE: Imaging protocol: Radiologic exam ofthe chest. Views: 1 view. COMPARISON: CR XR CHEST 1V 10/12/2022 1:25 PM FINDINGS: Tubes, catheters and devices: [place]-Jen catheter is present and enters right neck sheath. The [place]-Jen catheter tip overlies the expected pulmonary outflow tract region. Lungs: Moderate degree bilateral perihilar and basilar interstitial alveolar pulmonary edema versus infiltrates, pneumonia within the lungs. Bilateral pulmonary opacities are most prominent within the lower lungs. Progression of lung opacities is demonstrated. Pleural spaces: Small volume bilateral pleural effusions. Heart/Mediastinum: Mechanical cardiac valve is demonstrated. Cardiac silhouette appears moderate to severely enlarged. Vasculature: Tortuous and ectatic aorta is demonstrated. Bones/joints: Sternotomy wires, hardware is demonstrated. Other findings: The patient has been extubated since prior study. IMPRESSION: 1. Moderate to severe enlarged cardiac silhouette. 2. Small bilateral pleural effusions. 3. Moderate pulmonary edema versus infiltrates, pneumonia. 4. Extubation. Electronically Signed by Carlos Nam on10/13/2022 at 0947 Reported and signed by: Yenny Nam M.D. 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 [facility] POC ARTERIAL BLOOD [id number] 20:58:00 Test Item Value Reference Range Interpretation Comments POC ARTERIAL BLOOD GAS PH (test 7.406 7.35-7.45 N code = POCPHA) POC ARTERIAL BLOOD GAS PCO2 (test 40.2 mmHg 35.0-45 N code = [id number]) POC TCO2 ARTERIAL (test code = 26.4 POCTCO2) POC ARTERIAL BLOOD GAS PO2 (test 89.9 mmHg 80-100.0 N code = [id number]) POC HCO3 ARTERIAL (test code = 25.2 MMOL/L 22.0-26.0 N [id number]) POC BASE EXCESS (test code = 0.6 MMOL/L -4.0-4.0 N POCBEA) POC O2 SATURATION (test code = 96.9 % 90-100 N POCO2S) ABG DELIVERY (test code = GILBERT) 3LNC ABG TEMPERATURE (test code = 99.1 F TEMPA) ABG SITE (test code = SITEA) Art Line BASIC METABOLIC [id number] 20:58:00 Test Item Value Reference Range Interpretation Comments SODIUM (test code = NA/ABG) 138 mmol/L 134-147 N POTASSIUM (test code = K/ABG) 5.2 mmol/L 3.4-5.0 H CHLORIDE (test code = CL/ABG) 104 mmol/L 100-108 N CREATININE ABG (test code = 0.7 mg/dL 0.6-1.0 N CREAABG) POC IONIZED CALCIUM (test code = 1.25 MMOL/L 1.12-1.32 N POCCA) POC GLUCOSE (test code = POCGLU) 143 MG/DL 70-110 H HEMOGLOBIN [id number] 20:58:00 Test Item Value Reference Range Interpretation Comments HEMOGLOBIN ABG (test code = HGB/ABG) 8.5 G/DL 11.0-15.0 L [id number] 20:58:00 Test Item Value Reference Range Interpretation Comments HEMATOCRIT (test code = HCT/ABG) 25 % 33.0-45.0 L POC LACTIC [id number] 20:58:00 Test Item Value Reference Range Interpretation Comments POC LACTIC ACID (test code = 2.0 mmol/l 0.9-1.7 H POCLAC) GLUCOSE [id number] 18:04:00 Test Item Value Reference Range Interpretation Comments GLUCOSE BEDSIDE (test 121 MG/DL 70-110 H Perfor med by certified code = GLUBED) 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 [id number] 16:41:00 Test Item Value Reference Range Interpretation Comments GLUCOSE BEDSIDE (test 181 MG/DL 70-110 H Perfor med by certified code = GLUBED) 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 [id number] 16:40:00 Test Item Value Reference Range Interpretation Comments GLUCOSE BEDSIDE (test 139 MG/DL 70-110 H Perfor med by certified code = GLUBED) 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 [facility] POC ARTERIAL BLOOD [id number] 15:12:00 Test Item Value Reference Range Interpretation Comments POC ARTERIAL BLOOD GAS PH (test 7.338 7.35-7.45 L code = POCPHA) POC ARTERIAL BLOOD GAS PCO2 43.6 mmHg 35.0-45 N (test code = WRPUJU1A) POC TCO2 ARTERIAL (test code = 25.0 POCTCO2) POC ARTERIAL BLOOD GAS PO2 (test 92.3 mmHg 80-100.0 N code = SRQQV0J) POC HCO3 ARTERIAL (test code = 23.6 MMOL/L 22.0-26.0 N [id number]) POC BASE EXCESS (test code = -2.4 MMOL/L -4.0-4.0 N POCBEA) POC O2 SATURATION (test code = 96.9 % 90-100 N POCO2S) FIO2 (test code = FIO2A) 40 % PaO2/FiO2 (test code = QOR7XXO2) 230.75 mm/Hg ABG DELIVERY (test code = GILBERT) ET Tube ABG VENT MODE (test code = CPAP/PS MODEA) ABG TEMPERATURE (test code = 97.3 F TEMPA) ABG SITE (test code = SITEA) Art Line ELYSSA'S TEST (test code = Positive ALLENS) BASIC METABOLIC [id number] 15:12:00 Test Item Value Reference Range Interpretation Comments SODIUM (test code = NA/ABG) 137 mmol/L 134-147 N POTASSIUM (test code = K/ABG) 3.8 mmol/L 3.4-5.0 N CHLORIDE (test code = CL/ABG) 104 mmol/L 100-108 N CREATININE ABG (test code = 0.7 mg/dL 0.6-1.0 N CREAABG) POC IONIZED CALCIUM (test code = 1.37 MMOL/L 1.12-1.32 H POCCA) POC GLUCOSE (test code = POCGLU) 198 MG/DL 70-110 H HEMOGLOBIN [id number] 15:12:00 Test Item Value Reference Range Interpretation Comments HEMOGLOBIN ABG (test code = 10.5 G/DL 11.0-15.0 L HGB/ABG) [id number] 15:12:00 Test Item Value Reference Range Interpretation Comments HEMATOCRIT (test code = HCT/ABG) 31 % 33.0-45.0 L CBC W/AUTO [id number] 13:39:00 Test Item Value Reference Range Interpretation Comments WHITE BLOOD CELL 34.0 x10 3/uL 4.5-11.0 H (test code = WBC) RED BLOOD CELL (test 3.81 x10 6/uL 3.54-5.02 N code = RBC) HEMOGLOBIN (test code 10.9 g/dL 11.0-15.0 L = HGB) HEMATOCRIT (test code 32.5 % 33.0-45.0 L = HCT) MEAN CELL VOLUME 85.3 fL 81.0-99.0 N (test code = MCV) MEAN CELL HGB (test 28.6 pg 27.0-33.0 N code = MCH) MEAN CELL HGB 33.5 g/dL 33.0-37.0 N CONCETRATION (test code = MCHC) RED CELL DISTRIBUTION 14.6 % 11.5-14.5 H WIDTH CV (test code = RDW) RED CELL DISTRIBUTION 44.7 fL 37.0-54.0 N WIDTH SD (test code = RDW-SD) PLATELET COUNT (test 229 x10 3/uL 150-400 N code = PLT) MEAN PLATELET VOLUME 10.0 fL 7.0-9.0 H (test code = MPV) NEUTROPHIL % (test 89.7 % 56.0-77.0 H code = NT%) LYMPHOCYTE % (test 6.6 % 14.0-32.0 L code = LY%) NEUTROPHIL # (test 30.45 x10 3/uL 2.0-7.6 H code = NT#) LYMPHOCYTE # (test 2.24 x10 3/uL 1.0-3.8 N code = LY#) MANUAL DIFF REQUIRED NO SLIDE R EVIEWED, (test code = MDIFF) CONSISTE NT WITH AUTO DIFF. IMMATURE GRANULOCYTE 1.0 % 0.0-2.0 N % (test code = IG%) MONOCYTE % (test code 2.3 % 4.8-9.0 L = MO%) EOSINOPHIL % (test 0.2 % 0.3-3.7 L code = EO%) BASOPHIL % (test code 0.2 % 0.0-2.0 N = BA%) NUCLEATED RBC % (test 0.0 % 0-0 N code = NRBC%) IMMATURE GRANULOCYTE 0.34 x10 3/uL 0.00-0.03 H # (test code = IG#) MONOCYTE # (test code 0.78 x10 3/uL 0.1-0.8 N = MO#) EOSINOPHIL # (test 0.06 x10 3/uL 0.0-0.2 N code = EO#) BASOPHIL # (test code 0.08 x10 3/uL 0.0-0.2 N = BA#) NUCLEATED RBC # (test 0.00 x10 3/uL 0.0-0.1 N code = NRBC#) COMMENTS: On arrivalPROTHROMBIN [id number] 12:38:00 Test Item Value Reference Range Interpretation Comments PROTHROMBIN TIME 12.5 SECONDS 9.3-12.9 N PATIENT (test code = PTP) INTERNATIONAL NORMAL 1.1 0.8-1.2 N TARGET INR BY RATIO (test code = INDICATIO N Indication INR) INR1. Prophylax is of venous thrombos is 2.0 - 3.0 (orthoped ic surgery), Proph ylaxis of venous throm bosis (other than hig h-risk surgery), Treat ment of Deep Vein Thrombosis/Pulm onary Embolism, Preve ntion of systemic emb olism - Tissue heart va lves, Acute Myocardia l Infarction (to prevent systemic emboli sm), Valvular heart disease, Atrial Fibrillation, Bileaflet mecha nical valve in aortic position.2. Mec hanical prosthetic valv es (high risk), 2. 5 - 3.5 Presence of Lup us Anticoagulant o r Antiphospholipi d Antibodies, Pre vention of systemic emb olism - Acute Myocardia l Infarction (to prevent recurrent infar ct). COMMENTS: On arrivalTHROMBOPLASTIN TIME [id number] 12:38:00 Test Item Value Reference Range Interpretation Comments THROMBOPLASTIN TIME 38.2 Seconds 25.0-39.5 Therape utic Range: PARTIAL (test code = 50.4 - 88.3 Seconds PTT) Effective 07/10/2018 COMMENTS: On arrivalBASIC METABOLIC [id number] 12:34:00 Test Item Value Reference Range Interpretation Comments SODIUM (test code = 139 mEq/L 134-147 N NA) POTASSIUM (test code 4.2 mEq/L 3.4-5.0 N = K) CHLORIDE (test code 105 mEq/L 100-108 N = CL) CARBON DIOXIDE (test 24 mEq/l 21-33 N code = CO2) ANION GAP (test code 14 0-20 N = GAP) GLUCOSE (test code = 187 mg/dL 70-110 H GLU) BLOOD UREA NITROGEN 11 mg/dL 7-18 N (test code = BUN) GLOMERULAR 66.7 70-80 L The Glomerular FILTRATION RATE Filtration R ate is a (test code = GFR) calculated parameterbased on serum Creatinine, pat ient age and sex. GFR va luesless than 60 mL/min/ 1.73 square meters a re indicative ofCh ronic Kidney Disease. Values less than 15 mL/min/1.73squa re meters indicate Kidney failure. The calculation forGFR is based on the CKD-EPI (2020) calculat ion. This formulais race indifferent and is the recommended for guillermina for GFRby the [facility] on for Adults.The GFR will not calculate if th e sex is unknown or if thepatient's ag e is <18 years. CREATININE (test 0.9 mg/dL 0.6-1.3 N code = CREAT) CALCIUM (test code = 9.7 mg/dL 8.0-10.5 N CA) COMMENTS: On arrivalComment: On [id number] 12:34:00 Test Item Value Reference Range Interpretation Comments MAGNESIUM (test code = MAG) 3.25 mg/dL 1.80-2.40 H COMMENTS: On arrivalComment: On arrivalPOC ARTERIAL BLOOD [id number] 11:56:00 Test Item Value Reference Range Interpretation Comments POC ARTERIAL BLOOD GAS PH (test 7.365 7.35-7.45 N code = POCPHA) POC ARTERIAL BLOOD GAS PCO2 38.9 mmHg 35.0-45 N (test code = [id number]) POC TCO2 ARTERIAL (test code = 23.7 POCTCO2) POC ARTERIAL BLOOD GAS PO2 (test 103.8 mmHg 80-100.0 H code = DREKU1W) POC HCO3 ARTERIAL (test code = 22.4 MMOL/L 22.0-26.0 N [id number]) POC BASE EXCESS (test code = -3.1 MMOL/L -4.0-4.0 N POCBEA) POC O2 SATURATION (test code = 98.0 % 90-100 N POCO2S) FIO2 (test code = FIO2A) 50 % PaO2/FiO2 (test code = [id number]) 207.60 mm/Hg ABG DELIVERY (test code = GILBERT) Adult Vent ABG VENT MODE (test code = AC MODEA) ABG VENT RESP RATE (test code = 20 /MIN RRA) ABG TIDAL VOLUME (test code = 450 ml TVA) ABG PEEP (test code = PEEPA) 5 cmH2O ABG TEMPERATURE (test code = 97 F TEMPA) ABG SITE (test code = SITEA) Art Line ELYSSA'S TEST (test code = N/A ALLENS) BASIC METABOLIC [id number] 11:56:00 Test Item Value Reference Range Interpretation Comments SODIUM (test code = NA/ABG) 139 mmol/L 134-147 N POTASSIUM (test code = K/ABG) 4.3 mmol/L 3.4-5.0 N CHLORIDE (test code = CL/ABG) 104 mmol/L 100-108 N CREATININE ABG (test code = 0.6 mg/dL 0.6-1.0 N CREAABG) POC IONIZED CALCIUM (test code = 1.37 MMOL/L 1.12-1.32 H POCCA) POC GLUCOSE (test code = POCGLU) 189 MG/DL 70-110 H HEMOGLOBIN [id number] 11:56:00 Test Item Value Reference Range Interpretation Comments HEMOGLOBIN ABG (test code = 11.1 G/DL 11.0-15.0 N HGB/ABG) [id number] 11:56:00 Test Item Value Reference Range Interpretation Comments HEMATOCRIT (test code = HCT/ABG) 33 % 33.0-45.0 N [id number] 10:52:00 Test Item Value Reference Range Interpretation Comments ACT-ISTAT (test code 131 SEC 74-137 N Perform ed by certified = ACTI) 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 [facility] POC ARTERIAL BLOOD [id number] 10:45:00 Test Item Value Reference Range Interpretation Comments POC ARTERIAL BLOOD GAS PH (test 7.428 7.35-7.45 N code = POCPHA) POC ARTERIAL BLOOD GAS PCO2 (test 39.7 mmHg 35.0-45 N code = YKTLPQ7G) POC TCO2 ARTERIAL (test code = 27.5 POCTCO2) POC ARTERIAL BLOOD GAS PO2 (test 474.7 mmHg 80-100.0 HH code = HRTJL8R) POC HCO3 ARTERIAL (test code = 26.3 MMOL/L 22.0-26.0 H [id number]) POC BASE EXCESS (test code = 1.8 MMOL/L -4.0-4.0 N POCBEA) POC O2 SATURATION (test code = 100.0 % 90-100 N POCO2S) BASIC METABOLIC [id number] 10:45:00 Test Item Value Reference Range Interpretation Comments SODIUM (test code = NA/ABG) 137 mmol/L 134-147 N POTASSIUM (test code = K/ABG) 3.6 mmol/L 3.4-5.0 N CHLORIDE (test code = CL/ABG) 101 mmol/L 100-108 N CREATININE ABG (test code = 0.6 mg/dL 0.6-1.0 N CREAABG) POC IONIZED CALCIUM (test code = 1.14 MMOL/L 1.12-1.32 N POCCA) POC GLUCOSE (test code = POCGLU) 232 MG/DL 70-110 H HEMOGLOBIN [id number] 10:45:00 Test Item Value Reference Range Interpretation Comments HEMOGLOBIN ABG (test code = HGB/ABG) 9.0 G/DL 11.0-15.0 L [id number] 10:45:00 Test Item Value Reference Range Interpretation Comments HEMATOCRIT (test code = HCT/ABG) 27 % 33.0-45.0 L POC LACTIC [id number] 10:45:00 Test Item Value Reference Range Interpretation Comments POC LACTIC ACID (test code = 3.5 mmol/l 0.9-1.7 H POCLAC) [id number] 10:19:00 Test Item Value Reference Range Interpretation Comments ACT-ISTAT (test code 630 SEC 74-137 H Perform ed by certified = ACTI) 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 [facility] POC ARTERIAL BLOOD [id number] 10:08:00 Test Item Value Reference Range Interpretation Comments POC ARTERIAL BLOOD GAS PH (test 7.329 7.35-7.45 L code = POCPHA) POC ARTERIAL BLOOD GAS PCO2 (test 60.0 mmHg 35.0-45 HH code = XMFCYH2D) POC TCO2 ARTERIAL (test code = 33.4 POCTCO2) POC ARTERIAL BLOOD GAS PO2 (test 409.8 mmHg 80-100.0 HH code = NVKYF1J) POC HCO3 ARTERIAL (test code = 31.5 MMOL/L 22.0-26.0 HH [id number]) POC BASE EXCESS (test code = 4.8 MMOL/L -4.0-4.0 H POCBEA) POC O2 SATURATION (test code = 100.0 % 90-100 N POCO2S) BASIC METABOLIC [id number] 10:08:00 Test Item Value Reference Range Interpretation Comments SODIUM (test code = NA/ABG) 135 mmol/L 134-147 N POTASSIUM (test code = K/ABG) 5.2 mmol/L 3.4-5.0 H CHLORIDE (test code = CL/ABG) 99 mmol/L 100-108 L CREATININE ABG (test code = 0.6 mg/dL 0.6-1.0 N CREAABG) POC IONIZED CALCIUM (test code = 1.11 MMOL/L 1.12-1.32 L POCCA) POC GLUCOSE (test code = POCGLU) 191 MG/DL 70-110 H HEMOGLOBIN [id number] 10:08:00 Test Item Value Reference Range Interpretation Comments HEMOGLOBIN ABG (test code = HGB/ABG) 7.7 G/DL 11.0-15.0 L [id number] 10:08:00 Test Item Value Reference Range Interpretation Comments HEMATOCRIT (test code = HCT/ABG) 23 % 33.0-45.0 L POC LACTIC [id number] 10:08:00 Test Item Value Reference Range Interpretation Comments POC LACTIC ACID (test code = 1.4 mmol/l 0.9-1.7 N POCLAC) B-TYPE NATRIURETIC [id number] 10:07:00 Test Item Value Reference Range Interpretation Comments B-TYPE NATRIURETIC PEPTIDE (test 78.0 PG/ML 0-100 N code = BNP) [id number] 09:50:00 Test Item Value Reference Range Interpretation Comments ACT-ISTAT (test code 967 SEC 74-137 H Perform ed by certified = ACTI) 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 [facility] POC ARTERIAL BLOOD [id number] 09:34:00 Test Item Value Reference Range Interpretation Comments POC ARTERIAL BLOOD GAS PH (test 7.425 7.35-7.45 N code = POCPHA) POC ARTERIAL BLOOD GAS PCO2 (test 45.6 mmHg 35.0-45 H code = KQWWPW5W) POC TCO2 ARTERIAL (test code = 31.4 POCTCO2) POC ARTERIAL BLOOD GAS PO2 (test 465.8 mmHg 80-100.0 HH code = POEFQ7L) POC HCO3 ARTERIAL (test code = 30.0 MMOL/L 22.0-26.0 HH KJEIJA1W) POC BASE EXCESS (test code = 5.0 MMOL/L -4.0-4.0 H POCBEA) POC O2 SATURATION (test code = 100.0 % 90-100 N POCO2S) BASIC METABOLIC [id number] 09:34:00 Test Item Value Reference Range Interpretation Comments SODIUM (test code = NA/ABG) 136 mmol/L 134-147 N POTASSIUM (test code = K/ABG) 5.2 mmol/L 3.4-5.0 H CHLORIDE (test code = CL/ABG) 100 mmol/L 100-108 N CREATININE ABG (test code = 0.6 mg/dL 0.6-1.0 N CREAABG) POC IONIZED CALCIUM (test code = 1.08 MMOL/L 1.12-1.32 L POCCA) POC GLUCOSE (test code = POCGLU) 182 MG/DL 70-110 H HEMOGLOBIN [id number] 09:34:00 Test Item Value Reference Range Interpretation Comments HEMOGLOBIN ABG (test code = HGB/ABG) 8.0 G/DL 11.0-15.0 L [id number] 09:34:00 Test Item Value Reference Range Interpretation Comments HEMATOCRIT (test code = HCT/ABG) 23 % 33.0-45.0 L POC LACTIC [id number] 09:34:00 Test Item Value Reference Range Interpretation Comments POC LACTIC ACID (test code = 1.7 mmol/l 0.9-1.7 N POCLAC) [id number] 08:56:00 Test Item Value Reference Range Interpretation Comments ACT-ISTAT (test code 853 SEC 74-137 H Perform ed by certified = ACTI) 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 [facility] POC ARTERIAL BLOOD [id number] 08:45:00 Test Item Value Reference Range Interpretation Comments POC ARTERIAL BLOOD GAS PH (test 7.460 7.35-7.45 H code = POCPHA) POC ARTERIAL BLOOD GAS PCO2 (test 37.4 mmHg 35.0-45 N code = PYIBIS4R) POC TCO2 ARTERIAL (test code = 27.8 POCTCO2) POC ARTERIAL BLOOD GAS PO2 (test 481.2 mmHg 80-100.0 HH code = BHQUC5C) POC HCO3 ARTERIAL (test code = 26.6 MMOL/L 22.0-26.0 H LEFLPU2C) POC BASE EXCESS (test code = 2.7 MMOL/L -4.0-4.0 N POCBEA) POC O2 SATURATION (test code = 100.0 % 90-100 N POCO2S) BASIC METABOLIC [id number] 08:45:00 Test Item Value Reference Range Interpretation Comments SODIUM (test code = NA/ABG) 136 mmol/L 134-147 N POTASSIUM (test code = K/ABG) 3.9 mmol/L 3.4-5.0 N CHLORIDE (test code = CL/ABG) 100 mmol/L 100-108 N CREATININE ABG (test code = 0.6 mg/dL 0.6-1.0 N CREAABG) POC IONIZED CALCIUM (test code = 1.22 MMOL/L 1.12-1.32 N POCCA) POC GLUCOSE (test code = POCGLU) 202 MG/DL 70-110 H HEMOGLOBIN [id number] 08:45:00 Test Item Value Reference Range Interpretation Comments HEMOGLOBIN ABG (test code = 11.9 G/DL 11.0-15.0 N HGB/ABG) [id number] 08:45:00 Test Item Value Reference Range Interpretation Comments HEMATOCRIT (test code = HCT/ABG) 35 % 33.0-45.0 N POC LACTIC [id number] 08:45:00 Test Item Value Reference Range Interpretation Comments POC LACTIC ACID (test code = 1.2 mmol/l 0.9-1.7 N POCLAC) PROTHROMBIN [id number] 07:18:00 Test Item Value Reference Range Interpretation Comments PROTHROMBIN TIME 11.2 SECONDS 9.3-12.9 N PATIENT (test code = PTP) INTERNATIONAL NORMAL 1.0 0.8-1.2 N TARGET INR BY RATIO (test code = INDICATIO N Indication INR) INR1. Prophylax is of venous thrombos is 2.0 - 3.0 (orthoped ic surgery), Proph ylaxis of venous throm bosis (other than hig h-risk surgery), Treat ment of Deep Vein Thrombosis/Pulm onary Embolism, Preve ntion of systemic emb olism - Tissue heart va lves, Acute Myocardia l Infarction (to prevent systemic emboli sm), Valvular heart disease, Atrial Fibrillation, Bileaflet mecha nical valve in aortic position.2. Mec hanical prosthetic valv es (high risk), 2. 5 - 3.5 Presence of Lup us Anticoagulant o r Antiphospholipi d Antibodies, Pre vention of systemic emb olism - Acute Myocardia l Infarction (to prevent recurrent infar ct). 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 [facility] [id number] 07:12:00 Test Item Value Reference Range Interpretation Comments HGBA1C% (test code = HGBA1C%) 7.1 %A1C 4.8-6.0 H POC ARTERIAL BLOOD [id number] 07:08:00 Test Item Value Reference Range Interpretation Comments POC ARTERIAL BLOOD GAS PH (test 7.445 7.35-7.45 N code = POCPHA) POC ARTERIAL BLOOD GAS PCO2 (test 40.9 mmHg 35.0-45 N code = TQJULE5S) POC TCO2 ARTERIAL (test code = 29.3 POCTCO2) POC ARTERIAL BLOOD GAS PO2 (test 81.6 mmHg 80-100.0 N code = TVVMZ9L) POC HCO3 ARTERIAL (test code = 28.1 MMOL/L 22.0-26.0 HH BOYEEA5Q) POC BASE EXCESS (test code = 3.6 MMOL/L -4.0-4.0 N POCBEA) POC O2 SATURATION (test code = 96.4 % 90-100 N POCO2S) BASIC METABOLIC [id number] 07:08:00 Test Item Value Reference Range Interpretation Comments SODIUM (test code = NA/ABG) 136 mmol/L 134-147 N POTASSIUM (test code = K/ABG) 4.0 mmol/L 3.4-5.0 N CHLORIDE (test code = CL/ABG) 98 mmol/L 100-108 L CREATININE ABG (test code = 0.6 mg/dL 0.6-1.0 N CREAABG) POC IONIZED CALCIUM (test code = 1.31 MMOL/L 1.12-1.32 N POCCA) POC GLUCOSE (test code = POCGLU) 344 MG/DL 70-110 H HEMOGLOBIN [id number] 07:08:00 Test Item Value Reference Range Interpretation Comments HEMOGLOBIN ABG (test code = 13.6 G/DL 11.0-15.0 N HGB/ABG) [id number] 07:08:00 Test Item Value Reference Range Interpretation Comments HEMATOCRIT (test code = HCT/ABG) 40 % 33.0-45.0 N POC LACTIC [id number] 07:08:00 Test Item Value Reference Range Interpretation Comments POC LACTIC ACID (test code = 2.6 mmol/l 0.9-1.7 H POCLAC) CBC W/AUTO [id number] 06:44:00 Test Item Value Reference Range Interpretation Comments WHITE BLOOD CELL (test code = 8.3 x10 3/uL 4.5-11.0 N WBC) RED BLOOD CELL (test code = 4.48 x10 6/uL 3.54-5.02 N RBC) HEMOGLOBIN (test code = HGB) 12.7 g/dL 11.0-15.0 N HEMATOCRIT (test code = HCT) 38.6 % 33.0-45.0 N MEAN CELL VOLUME (test code = 86.2 fL 81.0-99.0 N MCV) MEAN CELL HGB (test code = MCH) 28.3 pg 27.0-33.0 N MEAN CELL HGB CONCETRATION 32.9 g/dL 33.0-37.0 L (test code = MCHC) RED CELL DISTRIBUTION WIDTH CV 14.6 % 11.5-14.5 H (test code = RDW) RED CELL DISTRIBUTION WIDTH SD 45.5 fL 37.0-54.0 N (test code = RDW-SD) PLATELET COUNT (test code = 255 x10 3/uL 150-400 N PLT) MEAN PLATELET VOLUME (test code 10.2 fL 7.0-9.0 H = MPV) NEUTROPHIL % (test code = NT%) 70.8 % 56.0-77.0 N IMMATURE GRANULOCYTE % (test 0.6 % 0.0-2.0 N code = IG%) LYMPHOCYTE % (test code = LY%) 20.9 % 14.0-32.0 N MONOCYTE % (test code = MO%) 4.9 % 4.8-9.0 N EOSINOPHIL % (test code = EO%) 2.3 % 0.3-3.7 N BASOPHIL % (test code = BA%) 0.5 % 0.0-2.0 N NUCLEATED RBC % (test code = 0.0 % 0-0 N NRBC%) NEUTROPHIL # (test code = NT#) 5.88 x10 3/uL 2.0-7.6 N IMMATURE GRANULOCYTE # (test 0.05 x10 3/uL 0.00-0.03 H code = IG#) LYMPHOCYTE # (test code = LY#) 1.74 x10 3/uL 1.0-3.8 N MONOCYTE # (test code = MO#) 0.41 x10 3/uL 0.1-0.8 N EOSINOPHIL # (test code = EO#) 0.19 x10 3/uL 0.0-0.2 N BASOPHIL # (test code = BA#) 0.04 x10 3/uL 0.0-0.2 N NUCLEATED RBC # (test code = 0.00 x10 3/uL 0.0-0.1 N NRBC#) MANUAL DIFF REQUIRED (test code NO = MDIFF) BASIC METABOLIC [id number] 06:26:00 Test Item Value Reference Range Interpretation Comments SODIUM (test code = 137 mEq/L 134-147 N NA) POTASSIUM (test code 3.9 mEq/L 3.4-5.0 N = K) CHLORIDE (test code 102 mEq/L 100-108 N = CL) CARBON DIOXIDE (test 30 mEq/l 21-33 N code = CO2) ANION GAP (test code 9 0-20 N = GAP) GLUCOSE (test code = 151 mg/dL 70-110 H GLU) BLOOD UREA NITROGEN 10 mg/dL 7-18 N (test code = BUN) GLOMERULAR 76.8 70-80 N The Glomerular FILTRATION RATE Filtration R ate is a (test code = GFR) calculated parameterbased on serum Creatinine, pat ient age and sex. GFR va luesless than 60 mL/min/ 1.73 square meters a re indicative ofCh ronic Kidney Disease. Values less than 15 mL/min/1.73squa re meters indicate Kidney failure. The calculation for GFR is based on the CK D-EPI (2020) calculat ion. This formulais race indifferent and is the recommended for guillermina for GFRby the [facility] on for Adults.The GFR will not calculate if th e sex is unknown or if thepatient's ag e is <18 years. CREATININE (test 0.8 mg/dL 0.6-1.3 N code = CREAT) CALCIUM (test code = 10.0 mg/dL 8.0-10.5 N CA) [id number] 06:26:00 Test Item Value Reference Range Interpretation Comments MAGNESIUM (test code = MAG) 1.80 mg/dL 1.80-2.40 N - XR CHEST 1 [id number] 00:00:[facility] : 1945 Sex: F FAX: Dory Trevino MD [phone] [place]: St: ADM FAX: Yenny Walls MD [phone] FAX:Paras Arita MD [phone] FAX: Harriet Spain [facility] [phone] Name: SWEETIE AMAYA [facility] : 1945 Age/S: 77/F [address] [place] [address] Unit #: [id number] Loc: G.2208 [place] [address] Phys: Harriet Griffin Acct: [id number] Dis Date: Status: ADM IN PHONE #: [phone] Exam Date: 2022 1350 FAX #: [phone] Reason: Cardiac Surgery Post Op EXAMS: CPT CODE: [id number] XR CHEST 1V [id number] PROCEDURE INFORMATION: Exam: XR Chest Exam date and time: 10/12/2022 1:25 PM Age: 77 years old Clinical indication: Condition or disease; Other: Cardiac surgery post op TECHNIQUE: Imaging protocol: Radiologic exam of the chest. Views: 1 view. COMPARISON: CT CHEST W/O CONTRAST 10/11/2022 4:02 PMFINDINGS: Tubes, catheters and devices: Endotracheal tube tip projects 7.6 cm above kris. Right neck [place]-Jen catheter tip projects over the main pulmonary outflow tract. Mediastinal drain and left chest tube seen. Cardiac valve replacement seen. Lungs: Mild central pulmonary vascular congestion pre sent. Linear atelectasis left lung base present. Pleural spaces: Costophrenic angles are slightly obscured. Small right pneumothorax of likely 5% is difficult to exclude. Heart/Mediastinum: Cardiomediastinal silhouette is enlarged. Bones/joints: Sternotomy wires are seen. IMPRESSION: 1. Status post median sternotomy with support tubes and lines as described. 2. Small right apical pneumothorax is difficult to exclude due to portable technique and superimposed shadows. Follow-up radiographs can be obtained further evaluate. 3. Mild left basilar atelectasis. at 1428 Reported and signed by: Ricardo Hernandez M.D. CC: Dory Lockwood; Yenny Boone M.D.; Paras Vidales MD; Harriet Griffin Technologist: RT Aracely(R) Trnscrd Date/Time/By: 10/12/2022 (5845) : By: [email or web address] Orig Print D/T: S: 10/12/2022 (2940) PAGE 1 Signed Report- DUP EXTRACRANIAL [id number] 00:00:00 [facility] [place]: SWEETIE AMAYA : 1945 Sex: F Name: SWEETIE AMAYA [facility] Rachna Abad : 1945 Age/S: 77 / F [address] [place] [address] Unit #: [id number] Loc: [place] [address] Phys: Harriet Griffin Acct: [id number] Dis Date: Status: ADM IN PHONE #: [phone] Exam Date: 10/11/20222357 FAX #: [phone] Reason: Mitrl regurg, HX of RCEA EXAMS: CPT CODE: [id number] DUP EXTRACRANIAL ANGI [id number] PROCEDURE INFORMATION: Exam: US Duplex Bilateral Extracranial Arteries; Complete; Carotid Arteries Exam date and time: 10/11/2022 11:43 PM Age: 77 years old Clinical indication: Screening exam; mitral regurg, HX of rcea TECHNIQUE: Imaging protocol: Real-time duplex ultrasound scan of the bilateral extracranial arteries combining avila scale, color Doppler and spectral waveform analysis with image documentation. Complete exam. Exam focused on the carotid arteries. COMPARISON: CT CHEST W/O CONTRAST 10/11/2022 4:02 PM FINDINGS: Right common carotid artery: Mild plaque. Peak systolic velocity 61.2 cm/s. No occlusion or stenosis. Waveforms are nor mal. Right internal carotid artery: Mild plaque. Peak systolic velocity 72.3 cm/s. No occlusion or stenosis. Waveforms are normal. Right ICA/CCA ratio: 1.2, within normal limits. Right external carotidartery: No stenosis in the origin. Right vertebral artery: Antegrade flow. Left common carotid artery: [id number] plaque. Peak systolic velocity 70.6 cm/s. No occlusion or stenosis. Waveforms arenormal. Left internal carotid artery: Qyes-wh-rvhbejum plaque. Peak systolic velocity 82.7 cm/s. No occlusion or stenosis. Waveforms are normal. Left ICA/CCA ratio: 1.2, within normal limits. Left external carotid artery: No stenosis in the origin. Left vertebral artery: Antegrade flow. IMPRESSION: Plaque along the bilateral common carotid arteries and internal carotid arteries. No significant stenosis of the proximal internal carotid arteries by NASCET criteria. REFERENCES: The degree of internal carotid artery stenosis is based on criteria defined by the IAC Vascular Testing criteria. Normal is no stenosis. Mild is less than 50% stenosis. Moderate is 50-69% stenosis. Severe is greater than 69% stenosis to near occlusion. Near occlusion is a markedly narrowed lumen. Total occlusion is no detectable patent lumen. PAGE 1 Signed Report (CONTINUED) Name: SWEETIE AMAYA [facility] : 1945 Age/S: 77 / F [address] [place], [place] [address] Unit #: [id number] Loc: [place] [address] Phys: Harriet Griffin Acct: [id number] Dis Date: Status: ADM IN PHONE #: [phone] Exam Date: FAX #: [phone] Reason: Mitrl regurg, HX of RCEA EXAMS: CPT CODE: [id number] DUP EXTRACRANIAL ANGI 94581 (Continued) at 0138 Reported and signed by: Raymond Longo M.D. CC: Yenny Boone M.D.; Paras Vidales MD; Harriet Griffin Technologist: Sweetie Garcia RDMS(AB)(OB) Trnscb Date/Time: 10/12/2022 (137) [id number] Orig Print D/T: S: 10/12/2022 (137) Probe: PAGE 2 Signed Report- CT CHEST W/O CONTRAST 2022-10-12 00:00:00 [facility] RACHNA ABADName: SWEETIE AMAYA : 1945 Sex: F Name: SWEETIE AMAYA [facility] Rachna Abad : 1945 Age/S: 77 / F [address] [facility] Unit #: [id number] Loc: [facility] [place] [address] Phys: Harriet Griffin Physic Acct: [id number] Dis Date: Status: ADM IN PHONE #: [phone] Exam Date: 10/11/2022 1607 FAX #: [phone] Reason: Mitrl regurg EXAMS: CPT CODE: [id number] CT CHEST W/O CONTRAST 55593 PROCEDURE INFORMATION: Exam: CT Chest Without Contrast; Diagnostic Exam date and time: 10/11/2022 4:02 PM Age: 77 years old Clinical indication: Screening exam; Pre-operative exam; Cardiovascular screening; Patient HX: Mitrl regurg TECHNIQUE: Imaging protocol: Diagnostic computed tomography of the chest without contrast. Radiation optimization: All CT scans at this facility use at least one of these dose optimization techniques: automated exposure control; mA and/or kV adjustment per patient size (includes targeted exams where dose is matched to clinical indication); or iterative reconstruction. REPORTING DATA: Count of CT and Cardiac NM exams in p rior 12 months: This patient has received 0 known CTs and 0 known cardiac nuclear medicine studies in the 12 months prior to the current study. COMPARISON: DX XR CHEST 2 V 10/10/2022 13:54 FINDINGS: Lungs: There is minimal biapical pleural-parenchymal thickening. There is minimal peripheral reticulatio n more prominent at the lung bases bilaterally and right middle lobe with associated mild traction bronchiectasis. Scatter faint ground-glass opacities with reticulonodular changes for example right lower lobe series 3 image 166 through 170 and left lower lobe series 3, image 168 through 173. Pulmonary nodules: 1. 5 mm and 2 mm adjacent nodules left lower lobe series 3, image 164 2. Cluster of 2-3 mmnodules posteromedial left lower lobe series 3, image 157 3. Calcified granuloma right apex. Pleuralspaces: Unremarkable. No pneumothorax. No pleural effusion. Heart: No cardiomegaly. No pericardial effusion. Lymph nodes: There is no mediastinal or axillary lymphadenopathy. The evaluation of the alfonso is limited in the absence of contrast. Vasculature: Minimal atherosclerotic disease. No aortic aneurysm. Bones/joints: Generalized osteopenia and mild multilevel spondylosis thoracic spine. No acute fracture. Soft tissues: Unremarkable. Gallbladder and bile ducts: Prior cholecystectomy. PAGE 1 Signed Report (CONTINUED) Name: SWEETIE AMAYA [facility] [place] : 1945 Age/S: 77 / F [address] [facility] Unit #: [id number] Loc: [place] [address] Phys: Harriet Griffin Physic Acct: [id number] Dis Date: Status: ADM IN PHONE #: [phone] Exam Date: 10/11/2022 1607 FAX #: [phone] Reason: Mitrl regurg EXAMS: CPT CODE: [id number] CT CHEST W/O CONTRAST 63481 (Continued) IMPRESSION: 1. Mild bibasilar fibrotic changes. 2. Mild right middle lobe fibrosis and bronchiectasis. 3. Scattered ground-glass opacities with reticulonodular changes may represent pneumonitis. Follow-up to ensure res olution. 4. Pulmonary nodules. Follow-up per Fleischner society guidelines:For patients at low risk (minimal or absent history of smoking and of other known risk factors), no routine follow-up is indicated. For patients at high risk (history of smoking or of other known risk factors), consider optional CT Chest at 12 months. (Reference: Ne) References: Juanhoshay H, et al. Guidelines for Management of Incidental Pulmonary Nodules Detected on CT Images: From the Fleischner Society 2017. Radiology. 2017;284(1):228-243. at 0836 Reported and signed by: Jennifer Tejada M.D. CC: Yenny Boone M.D.; Paras Vidales MD; Harriet Griffin Technologist:Arnie Alvarado RT(R)(CT) CTDI: DLP: Trnscb Date/Time: 10/12/2022 (36) [email or web address] Orig Print D/T: S: 10/12/2022 (3911) PAGE 2 Signed ReportUA RFLX MICR CULT IF [id number] 20:24:00 Test Item Value Reference Range Interpretation Comments UA COLOR (test code = COLU) STRAW YEL/STRAW UA APPEARANCE (test code = CLEAR CLEAR APPU) UA GLUCOSE DIPSTICK (test code 1+ NEGATIVE A = DGLUU) UA BILIRUBIN DIPSTICK (test NEGATIVE NEGATIVE code = BILU) UA KETONE DIPSTICK (test code = NEGATIVE NEGATIVE KETU) UA SPECIFIC GRAVITY (test code 1.012 1.005-1.030 N = SGU) UA BLOOD DIPSTICK (test code = NEGATIVE NEGATIVE ANA MARIA) UA PH DIPSTICK (test code = 6.0 5.0-7.0 N DEVENDRA) UA PROTEIN DIPSTICK (test code NEGATIVE NEGATIVE = PROU) UA UROBILINIOGEN DIPSTICK (test 0.2 mg/dL 0.2-1.0 code = URO) UA NITRITE DIPSTICK (test code NEGATIVE NEGATIVE = PATO) UA LEUKOCYTE ESTERASE DIPSTICK 1+ NEGATIVE A (test code = LEUU) UA WBC (test code = WBCU) 10-20 WBC/HPF 0-3 A UA RBC (test code = RBCU) 0-3 RBC/HPF 0-3 UA WBC NO REFLEX (test code = 10-20 WBC/HPF 0-3 A WBCUCL) UA BACTERIA (test code = BACU) TRACE /HPF NONE SEEN UA SQUAMOUS CELLS (test code = 0-5 /HPF NONE SEEN SQU) UA MUCUS (test code = MUCU) TRACE /LPF NONE SEEN Indication for culture: Dysuria/FrequencySpecimen Description: CLEAN CATCHCOVID 19 Asymptomatic IH [id number] 19:30:00 Test Item Value Reference Range Interpretation Comments COVID 19 Asymptomatic Negative Negative A nega tive result is IH AG (test code = presumpti ve and should COVNONPUIAG) be confirmedwit h an FDA authorized mole cular assay, if mesfines malcolm forpatient madi boyd.A positive result does not rule out co-inf ections withother patho gens.This test detects salvador th viable (live) and non-viable,SARS -CoV, and SARS-CoV-2. Henna t performance dep ends on theamount of vi lamin (antigen) in th e sample.This henna t has not been FDA cleare d or approved; the t est hasbeen authori zed by FDA under an Em ergency Use Authorizati on(EUA) for use by labo ratories certified under the CLIA thatmeet the requirements to perform moderate, high or waivedcomplexit y tests. COMPREHENSIVE METABOLIC [id number] 18:40:00 Test Item Value Reference Range Interpretation Comments SODIUM (test code = 135 mEq/L 134-147 N NA) POTASSIUM (test code 4.1 mEq/L 3.4-5.0 = K) CHLORIDE (test code 102 mEq/L 100-108 N = CL) CARBON DIOXIDE (test 26 mEq/l 21-33 N code = CO2) ANION GAP (test code 11 0-20 N = GAP) GLUCOSE (test code = 172 mg/dL 70-110 H GLU) BLOOD UREA NITROGEN 8 mg/dL 7-18 N (test code = BUN) GLOMERULAR 66.7 70-80 L The Glomerular FILTRATION RATE Filtration R ate is a (test code = GFR) calculated parameterbased on serum Creatinin e, patient age and sex. GFR valuesless than 60 mL/min/1.73 squ are meters are digna cative ofChronic Kidne y Disease. Values less than 15 mL/min/1.73squa re meters indicate Kidney failure. The calculation for GFR is based on the CK D-EPI (2020) calculat ion. This formulais race indifferent and is the recommended for guillermina for GFRby the N [facility] Kidney Foundati on for Adults.The GFR will not calculate i f the sex is unknown or if thepatient's ag e is <18 years. CREATININE (test 0.9 mg/dL 0.6-1.3 N code = CREAT) TOTAL PROTEIN (test 6.8 g/dL 6.4-8.2 N code = PROT) ALBUMIN (test code = 3.70 g/dL 3.4-5.0 N ALB) CALCIUM (test code = 9.8 mg/dL 8.0-10.5 N CA) BILIRUBIN TOTAL 0.50 mg/dL 0.0-1.0 N (test code = BILT) SGOT/AST (test code 18 IUnit/L 15-37 N = AST) SGPT/ALT (test code 24 IUnit/L 30-65 L = ALT) ALKALINE PHOSPHATASE 102 IUnit/L 20-125 N TOTAL (test code = ALKP) LIPID PROFILE (CORONARY RISK)2022-10-11 18:40:00 Test Item Value Reference Range Interpretation Comments TRIGLYCERIDES (test 279 mg/dL 40-150 H code = TRIG) CHOLESTEROL (test 191 mg/dL <200 code = CHOL) CHOLESTEROL/HDL 3.72 RATIO 3.27-4.44 N RISK ASSOCIA CAITLIN WITH RATIO (test code = CHOL/HDL RATIOS: RISK CHOLHDL) MALE FEMALE1/2 AVERAGE 3.43 3.27AVERAG E 4.97 4.442X AVERAGE 9.55 7.053X AVERAGE 23.39 11.04 NOTE THAT THE REFERENCE VALUE IS RELATEDTO RISK LEVELS RECOMMENDED BY THE NATL.HEART, CECY G, AND BLOOD INST. HDL CHOLESTEROL 51.4 MG/DL 40-60 N Note calle e in (test code = HDL) REFERENCE RANGE due to change in REAGENT.HDL Interpretation < 40.0 mg/dL Low (undesirable, h igh risk)> 60.0 mg/ dL High (desirable, low risk) Reference inter colt for healthy adults was established by theNational Cholesterol Edu cation Program (NCEP). LIPOPROTEIN LDL 118.0 mg/dL 0-100 H <100 OPTIMAL 100-129 (test code = LDL) NEAR OPTIM AL/ABOVE [id number] [id number] 89 HIGH>SJ=670 [place] Y HIGH*Guidelines provided by the National Choles terol EducationProgra Adult Treatment Panel III BASIC METABOLIC [id number] 14:21:00 Test Item Value Reference Range Interpretation Comments SODIUM (test code = 134 mEq/L 134-147 N NA) POTASSIUM (test code 3.3 mEq/L 3.4-5.0 L = K) CHLORIDE (test code 98 mEq/L 100-108 L = CL) CARBON DIOXIDE (test 27 mEq/l 21-33 N code = CO2) ANION GAP (test code 12 0-20 N = GAP) GLUCOSE (test code = 179 mg/dL 70-110 H GLU) BLOOD UREA NITROGEN 9 mg/dL 7-18 N (test code = BUN) GLOMERULAR 66.7 70-80 L The Glomerular FILTRATION RATE Filtration R ate is a (test code = GFR) calculated parameterbased on serum Creatinine, pat ient age and sex. GFR va luesless than 60 mL/min/ 1.73 square meters a re indicative ofCh ronic Kidney Disease. Values less than 15 mL/min/1.73squa re meters indicate Kidney failure. The calculation forGFR is based on the CKD-EPI (2020) calculat ion. This formulais race indifferent and is the recommended for guillermina for GFRby the Natio nal Kidney Foundati on for Adults.The GFR will not calculate if th e sex is unknown or if thepatient's ag e is <18 years. CREATININE (test 0.9 mg/dL 0.6-1.3 N code = CREAT) CALCIUM (test code = 9.7 mg/dL 8.0-10.5 N CA) PROTHROMBIN [id number] 14:12:00 Test Item Value Reference Range Interpretation Comments PROTHROMBIN TIME 10.6 SECONDS 9.3-12.9 N PATIENT (test code = PTP) INTERNATIONAL NORMAL 1.0 0.8-1.2 N TARGET INR BY RATIO (test code = INDICATIO N Indication INR) INR1. Prophylax is of venous thrombos is 2.0 - 3.0 (orthoped ic surgery), Proph ylaxis of venous throm bosis (other than hig h-risk surgery), Treat ment of Deep Vein Thrombosis/Pulm onary Embolism, Preve ntion of systemic emb olism - Tissue heart va lves, Acute Myocardia l Infarction (to prevent systemic emboli sm), Valvular heart disease, Atrial Fibrillation, Bileaflet mecha nical valve in aortic position.2. Mec hanical prosthetic valv es (high risk), 2. 5 - 3.5 Presence of Lup us Anticoagulant o r Antiphospholipi d Antibodies, Pre vention of systemic emb olism - Acute Myocardia l Infarction (to prevent recurrent infar ct). CBC W/AUTO [id number] 14:07:00 Test Item Value Reference Range Interpretation Comments WHITE BLOOD CELL (test code = 10.4 x10 3/uL 4.5-11.0 N WBC) RED BLOOD CELL (test code = 4.40 x10 6/uL 3.54-5.02 N RBC) HEMOGLOBIN (test code = HGB) 12.4 g/dL 11.0-15.0 N HEMATOCRIT (test code = HCT) 37.6 % 33.0-45.0 N MEAN CELL VOLUME (test code = 85.5 fL 81.0-99.0 N MCV) MEAN CELL HGB (test code = MCH) 28.2 pg 27.0-33.0 N MEAN CELL HGB CONCETRATION 33.0 g/dL 33.0-37.0 N (test code = MCHC) RED CELL DISTRIBUTION WIDTH CV 14.4 % 11.5-14.5 N (test code = RDW) RED CELL DISTRIBUTION WIDTH SD 45.0 fL 37.0-54.0 N (test code = RDW-SD) PLATELET COUNT (test code = 266 x10 3/uL 150-400 N PLT) MEAN PLATELET VOLUME (test code 10.2 fL 7.0-9.0 H = MPV) NEUTROPHIL % (test code = NT%) 73.3 % 56.0-77.0 N IMMATURE GRANULOCYTE % (test 0.5 % 0.0-2.0 N code = IG%) LYMPHOCYTE % (test code = LY%) 19.7 % 14.0-32.0 N MONOCYTE % (test code = MO%) 5.0 % 4.8-9.0 N EOSINOPHIL % (test code = EO%) 1.0 % 0.3-3.7 N BASOPHIL % (test code = BA%) 0.5 % 0.0-2.0 N NUCLEATED RBC % (test code = 0.0 % 0-0 N NRBC%) NEUTROPHIL # (test code = NT#) 7.66 x10 3/uL 2.0-7.6 H IMMATURE GRANULOCYTE # (test 0.05 x10 3/uL 0.00-0.03 H code = IG#) LYMPHOCYTE # (test code = LY#) 2.06 x10 3/uL 1.0-3.8 N MONOCYTE # (test code = MO#) 0.52 x10 3/uL 0.1-0.8 N EOSINOPHIL # (test code = EO#) 0.10 x10 3/uL 0.0-0.2 N BASOPHIL # (test code = BA#) 0.05 x10 3/uL 0.0-0.2 N NUCLEATED RBC # (test code = 0.00 x10 3/uL 0.0-0.1 N NRBC#) MANUAL DIFF REQUIRED (test code NO = MDIFF) - XR CHEST 2 [id number] 00:00:00 [facility] : 1945 Sex: F FAX: Yenny Walls MD [phone] [place]: St: PRE FAX: Paras Arita MD [phone] FAX: Cathy Mayers Name: JOSE LUISSWEETIE Day [facility] : 1945 Age/S: 77/F [address] [place] [address] Unit #: [id number] Loc: [place] [address] Phys: Cathy Mayers CASTING ASSISTANT Acct: [id number] Dis Date: Status: PRE SDC PHONE #: [phone] Exam Date: 10/10/2022 1352 FAX #: [phone] Reason: PRE SX EXAMS:CPT CODE: [id number] XR CHEST 2 V 89497 PROCEDURE INFORMATION: Exam: XR Chest Exam date and time: 10/10/2022 1:54 PM Age: 77 years old Clinical indication: Pre-operative exam; Respiratory screening exam;Additional info: Pre SX TECHNIQUE: Imaging protocol: Radiologic exam of the chest. Views: 2 views. P A and Lateral COMPARISON: RF XR FLUORO FOR SPINE INJ 10/05/2022 11:30 AM FINDINGS: Tubes, catheters and devices: Surgical clips overlie the abdomen, visualized on the lateral view. Lungs: The lungs appear clear without pulmonary venous congestion. Pleural spaces: No pleural effusion. No pneumothorax. H eart/Mediastinum: Cardiac silhouette appears mildly enlarged. Vasculature: Mild atherosclerotic calcification demonstrated within the aorta. Bones/joints: Mild generalized bony degenerative changes. Diffusely decreased bone density. Bony structures appear otherwise unremarkable. IMPRESSION: Mild enlarged cardiac silhouette. at 1450 Reported and signed by: Yenny Nam M.D. CC: Yenny Boone M.D.; Paras Vidales MD; Cathy Mayers NP Technologist: RT Emiliana(R) Trnscrd Date/Time/By: 10/10/2022 (825) : By: [email or web address] Orig Print D/T: S: 10/10/2022 (9618) PAGE 1 Signed Report- XR FLUORO FOR SPINE [id number] 16:46:00 [facility] : 1945 Sex: F Patient Name: SWEETIE AMAYA Unit No: [id number] EXAMS: CPT CODE: [id number] XR FLUORO FOR SPINE INJ 65896 LUMBAR DISCOGRAM, FACETS AND INTRADISCAL INJECTION REFERRING PHYSICIAN: None PREOPERATIVE DIAGNOSIS: Lumbar spondylosis without radiculopathy or myelopathy and lumbar degenerative disc disease POSTOPERATIVE DIAGNOSIS: 1. Lumbar spondylosis without radiculopathy or myelopathy 2. Symptomatic degenerative lumbar discs PROCEDURE PERFORMED: 1. Fluoroscopically guided needle localization of the L4-5 andL5-S1 discs with provocative discography and intradiscal injection of local anesthetic and steroid. 2. Fluoroscopically guided needle localization of the right L4-5 facet with arthrogram and diagnosticinjection of local anesthetic and steroid. FINDINGS: Marked loss of disc space height is seen at L5-S1 with moderate loss of disc space height at L4-5. Posterior annular degeneration is seen at L4-5 and diffuse annular degeneration is seen at L5-S1. Provocation was negative. Anesthetic response was positive with the patient noting relief of her low back pain on the left with mild residual right low back pain. The right L4-5 facet shows mild to moderate capsular degeneration. Preinjection VAS 7/10. Postinjection VAS 5/10. Steroid response pending follow-up. ANTIBIOTIC: Cefazolin IV and intradiscal. E STIMATED BLOOD LOSS: Minimal ANESTHESIA: TIVA COMPLICATIONS: None DETAILS OF PROCEDURE: After obtaining stable vital signs, informed consent and IV access, with no contraindications to proceeding, thepatient received preoperative antibiotics and was taken to the fluoroscopy suite where the patient was placed in a prone position with all extremities padded and appropriate monitors placed. The patient was sterilely prepped and draped over the lumbosacral spine. Under fluoroscopic visualization the selected discs were visualized and the insertion sites were marked for paravertebral approaches. Usingstandard double needle no- touch technique, a 20 gauge spinal introducer needle was advanced to the level of the facets and a curved 25-gauge needle was then passed through the introducer and advanced into each disc without paresthesias. [facility] [place] NAME: SWEETIE AMAYA Shay [address] [facility] PHYS: Yenny Proctor MD [place], [place] [address] : 1945 AGE: 77 SEX: F LOC: BraydonDELVIN PHONE #: [phone] EXAM DATE: 10/05/2022 STATUS: DEP SD FAX #: [phone] #: [id number] D/C DT PAGE 1 Signed Report (CONTINUED) Patient Name: SWEETIE AMAYA Unit No: [id number] EXAMS: CPT CODE: [id number] XR FLUORO FOR SPINE INJ 74759 (Continued) Isovue 300 contrast 0.2 ml was then injected to produce each discogram. Bupivacaine 0.75% 0.25 mL with lidocaine 4% 0.25 ml, C quuilgiq535 mg/mL 0.2 mL and dexamethasone 6 mg was then injected at each disc, provocation was recorded and the needles were removed. The patient's vital signs remained stable. The needles were removed and attention was turned to the facets. Using fluoroscopic visualization, the insertion site was marked for a paravertebral approach to the joint. Using standard technique, a 26 -gauge needle was inserted into each joint capsule without paresthesias. At the right L4-5 facet, aspiration was negative for clear serous fluid. Isovue-300 contrast 0.2 mL was injected to produce the arthrogram. There were no signs of intravascular or intrathecal uptake. Bupivicaine 0.75% 0.25 mL with Lidocaine 4% 0.25 ml and dexamethasone 4 mg was then injected incrementally into the joint. There were no signs of intravascular or intrathecal uptake. The patient's vital signs remained stable. The needles were removed andthe patient was taken to the PACU in good condition. Electronically Signed: Yenny Boone M.D.Image: Image 1 Image: Image 2 [id number] Reported and signed by: Yenny Boone M.D. CC: Yenny Boone MD Technologist: JACOB MILLER RT(R) Transcribed D/ 1641) Etienne.[facility] [place] NAME: SWEETIE AMAYA [address] [facility] PHYS: Yenny Proctor MD [place], [place] [address] : 1945 AGE: 77 SEX: F LOC: BraydonDELVIN PHONE #: [phone] EXAM DATE: 10/05/2022 STATUS: DEP [facility] FAX #: [phone] RAD #: [id number] D/C DT PAGE 2 Signed Report Patient Name: SWEETIE AMAYA Unit No: [id number] EXAMS: CPT CODE: [id number] XR FLUORO FOR SPINE INJ 65859 (Continued) Orig Print D/T: S: 10/06/2022 (1649) [facility] [place] NAME: SWEETIE AMAYA [address] [facility] PHYS: Yenny Proctor MD [place], [place] [address] : 1945 AGE: 77 SEX: F LOC: JAKUB PHONE #: [phone] EXAM DATE: 10/05/2022 STATUS: [facility] FAX #: [phone] RAD #: [id number] D/C DT PAGE 3 Signed Report- XR FLUORO FOR SPINE [id number] 18:53:00 [facility] : 1945 Sex: F Patient Name: SWEETIE AMAYA Unit No: [id number] EXAMS: CPT CODE: [id number] XR FLUORO FOR SPINE INJ 19277 LUMBAR FACET INJECTION DIAGNOSTIC REFERRAL PHYSICIAN: None PREOPERATIVE DIAGNOSIS: Lumbar spondylosis without myelopathy or radiculopathy POSTOPERATIVE DIAGNOSIS: Lumbar spondylosis without myelopathy or radiculopathy PROCEDURE PERFORMED: Fluoroscopically guided needle localization of the bilateral L3-4, bilateral L4-5 and right L5-S1 facets with arthrograms and diagnostic injection of local anesthetic and steroid. FINDINGS: All joints showed marked degenerative changes in moderate to marked jointhypertrophy. Provocation was negative. Anesthetic response was positive [...] prepped and draped over the lumbosacral spine. Usingfluoroscopic visualization, the insertion sites were marked for a paravertebral approach to each joint. Using standard technique, a 26 -gauge needle was inserted into each joint capsule without paresthesias. At all levels, aspiration was negative for clear serous fluid. Isovue-300 contrast 0.2 mL was injected to produce each arthrogram. There were no signs of intravascular or intrathecal uptake. Bupiv icaine 0.75% 0.25 mL with Lidocaine 4% 0.25 ml and triamcinolone 16 mg was then injected incrementally into each joint. There were no signs of intravascular or intrathecal uptake. The patient's vital signs remained stable. All needles were removed and the patient was taken to the PACU in good condition. Electronically Signed: Yenny Boone M.D. Image: Image 1 Image: Image 2 at 1853 Reported and signed by: Yenny Boone M.D. [facility] NAME: SWEETIE AMAYA [address] [facility] PHYS: Yenny Proctor MD [place], [place] [address] : 1945 AGE: 76 SEX: F LOC: JAKUB PHONE #: [phone] EXAM DATE: 02/07/2022 STATUS: REG [facility] [place] FAX #: [phone] RAD #: [id number] D/C DT PAGE 1 Signed Report (CONTINUED) Patient Name: SWEETIE AMAYA Unit No: [id number] EXAMS: CPT CODE: [id number] XR FLUORO FOR SPINE INJ 97016 (Continued) CC: Technologist: Sheron Lao(R) Transcribed D/ (1852) Ramos [facility] [place] NAME: SWEETIE AMAYA [address] [facility] PHYS: Yenny Proctor MD [place], [place] [address] : 1945 AGE: 76 SEX: F LOC: JAKUB PHONE #: [phone] EXAM DATE: 02/07/2022 STATUS: REG [facility] FAX #: [phone] #: [id number] D/C DT PAGE 2 Signed Report Patient Name: SWEETIE AMAYA Unit No: [id number] EXAMS: CPT CODE: [id number] XR FLUORO FOR SPINE INJ 53805 (Continued) Orig Print D/T: S: 02/07/2022 (1855) [facility] [place] NAME: SWEETIE AMAYA [address] [facility] PHYS: Yenny Proctor [place], [place] [address] : 1945 AGE: 76 SEX: F LOC: JAKUB PHONE #: [phone] EXAM DATE: 02/07/2022 STATUS: REG [facility] [place] FAX #: [phone] RAD #: [id number] D/C DT PAGE 3 Signed Report- XR FLUORO FOR SPINE [id number] 19:11:00 [facility] : 1945 Sex: F Patient Name: SWEETIE AMAYA Unit No: [id number] EXAMS: CPT CODE: [id number] XR FLUORO FOR SPINE INJ 69528 LUMBAR DISCOGRAM AND INTRADISCAL INJECTION REFERRING PHYSICIAN: None PREOPERATIVE DIAGNOSIS: Discogenic low back pain POSTOPERATIVE DIAGNOSIS: Discogenic low back pain. PROCEDURE PERFORMED: Fluoroscopically guided needle localization of the L4-5 and L5-S1 discs with provocative discography and thera peutic intradiscal injection of local anesthetic and steroid. FINDINGS: Moderate loss of disc space height is seen at L4-5 with moderate to marked loss of disc space height at L5-S1. Diffuse annular degeneration was seen at each level. Provocation with injection was negative. Anesthetic response was positive with the patient noting relief of her low back pain. Preinjection VAS 6/10. Postinjection VAS0/10. Steroid response pending follow-up. ANTIBIOTIC: Cefazolin IV and intradiscal. ESTIMATED BLOODLOSS: Minimal ANESTHESIA: TIVA COMPLICATIONS: None DETAILS OF [...] was advanced to the level of the facetsand a curved 25-gauge needle was then passed through the introducer and advanced into each disc without paresthesias. Isovue 300 contrast 0.2 ml was then injected to produce each discogram. Bupivacaine 0.75% 0.25 mL with lidocaine 4% 0.25 ml, Wotsptlhh123 mg/mL 0.2 ml and triamcinolone 30 mg was theninjected at each disc, provocation was recorded and the needles were removed. There were no signs ofintravascular or intrathecal uptake. The patient's vital signs remained stable. The patient was taken to the PACU in good condition. Electronically Signed: Yenny Boone M.D. Image: Image 1 [facility] NAME: SWEETIE AMAYA [address] [facility] PHYS: Yenny Proctor MD [place], [place] [address] : 1945 AGE: 76 SEX: F LOC: JAKUB PHONE #: [phone] DATE: 01/24/2022 STATUS: REG [place] [facility] [place] FAX #: [phone] RAD #: [id number] D/C DT PAGE 1 Signed Report (CONTINUED) Patient Name: SWEETIE AMAYA Unit No: [id number] EXAMS: CPT CODE: [id number] XR FLUORO FOR SPINE INJ 24770 (Continued) Image: Image 2 at 1910 Reported and signed by: Yenny Boone M.D. CC: Yenny Boone MD Technologist: JACOB MILLER RT(R) Transcribed D/ (1910) [facility] NAME: SWEETIE AMAYA [address] [facility] PHYS: Yenny Proctor MD [place] [address] : 1945 AGE: 76 SEX: F LOC: JAKUB PHONE #: [phone] EXAM DATE: STATUS: REG [place] [facility] [place] FAX #: [phone] RAD #: [id number] D/C DT PAGE 2 Signed Report Patient Name: SWEETIE AMAYA Unit No: [id number] EXAMS: CPT CODE: [id number] XR FLUORO FOR SPINE INJ 99751 (Continued) Orig Print D/T: S: 01/24/2022 (1913) [facility] NAME: SWEETIE AMAYA [address] [facility] PHYS: Yenny Proctor MD [place] [address] : 1945 AGE: 76 SEX: FACCT NO: [id number] LOC: JAKUB PHONE #: [phone] EXAM DATE: 01/24/2022 STATUS: [place] [facility] [place] FAX #: [phone] RAD #: [id number] D/C DT PAGE 3 Signed ReportPOCT MOLECULAR [id number] 16:47:47 Test Item Value Reference Range Interpretation Comments POCT Molecular FluA (test code = Positive Negative A 61309-8) Lab Interpretation (test code = Abnormal 45211-4) [facility] [id number] 16:47:47 Test Item Value Reference Range Interpretation Comments POCT Molecular FluA (test code = Positive Negative A 03288-2) Lab Interpretation (test code = Abnormal 24517-2) [facility]- XR FLUORO FOR SPINE [id number] 19:59:00 [facility] : 1945 Sex: F Patient Name: SWEETIE AMAYA Unit No: [id number] EXAMS: CPT CODE: [id number] XR FLUORO FOR SPINE INJ 67825 LUMBAR FACET INJECTION DIAGNOSTIC REFERRAL PHYSICIAN: None PREOPERATIVE DIAGNOSIS: Lumbar spondylosis without myelopathy or radiculopathy POSTOPERATIVE DIAGNOSIS: Lumbar spondylosis without myelopathy or radiculopathy PROCEDURE PERFORMED: Fluoroscopically guided needle localization of the bilateral L4-5 and bilateral L5-S1 facets with arthrograms and diagnostic injection of local anesthetic and steroid. 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 Provocation with injection was negative. Anesthetic response was positive with the patient noting relief of her low back pain. Preinjection VAS 3-4/10. Postinjection VAS 0/10. Steroid response pending follow-up. ESTIMATED BLOOD LOSS: Minimal ANESTHESIA: TIVA COMPLICATIONS: None DETAILS OF PROCEDURE: After obtaining stable vital signs, informed consent and IV access patient was taken to the fluoroscopysuite where the patient was placed in a [...] clear serous fluid. Isovue-300 contrast 0.2 mL wasinjected to produce each arthrogram. There were no signs of intravascular or intrathecal uptake. Bupi vicaine 0.75% 0.25 mL with Lidocaine 4% 0.25 ml and triamcinolone 16 mg was then injected incrementally into each joint. There were no signs of intravascular or intrathecal uptake. The patient's vital signs remained stable. All needles were removed and the patient was taken to the PACU in good condition. Image: Image 1 Image: Image 2 t 1958 Reported and signed by: Yenny Boone M.D. [facility] NAME: SWEETIE AMAYA [address] [facility] PHYS: Yenny Proctor MD [place], [place] [address] : 1945 AGE: 75 SEX: F LOC: JAKUB PHONE #: [phone] EXAM DATE: 05/04/2021 STATUS: REG [place] FAX #: [phone] RAD #: [id number] D/C DT PAGE 1 Signed Report (CONTINUED) Patient Name: SWEETIE AMAYA Unit No: [id number] EXAMS: CPT CODE: [id number] XR FLUORO FOR SPINE INJ 57303 (Continued) CC: Technologist: Sheron Lao(Jarad) Transcribed D/ (1958) tSINAN.[facility] [place] NAME: SWEETIE AMAYA [address] [facility] PHYS: Yenny Proctor MD [place], [place] [address] : 1945 AGE: 75 SEX: F LOC: JAKUB PHONE #: [phone] DATE: 05/04/2021 STATUS: [facility] [place] FAX #: [phone] RAD #: [id number] D/C DT PAGE 2 Signed Report Patient Name: SWEETIE AMAYA Unit No: [id number] EXAMS: CPT CODE: [id number] XR FLUORO FOR SPINE INJ 11184 (Continued) Orig Print D/T: S: 05/04/2021 (2001) [facility] NAME: SWEETIE AMAYA [address] [facility] PHYS: Yenny Proctor MD [place], [place] [address] : 1945 AGE:75 SEX: F LOC: JAKUB PHONE #: [phone] EXAM DATE: 05/04/2021 STATUS: REG SDC FAX #: [phone] RAD #: [id number] D/C DT PAGE 3 Signed Report- XR FLUORO FOR SPINE [id number] 17:22:00 [facility] : 1945 Sex: F Patient Name: SWEETIE AMAYA Unit No: [id number] EXAMS: CPT CODE: [id number] XR FLUORO FOR SPINE INJ 12641 LUMBAR DISCOGRAM AND INTRADISCAL INJECTION REFERRING PHYSICIAN: None PREOPERATIVE DIAGNOSIS: Discogenic low back pain POSTOPERATIVE DIAGNOSIS: Symptomatic degenerative L5-S1 disc PROCEDURE PERFORMED:Fluoroscopically guided needle localization of the L4-5 and L5-S1 discs with provocative discographyand therapeutic intradiscal injection of local anesthetic and [...] TIVA COMPLICATIONS: None DETAILS OF PROCEDURE: After obt aining stable vital signs, informed consent and IV access, with no contraindications to proceeding, the patient received preoperative antibiotics and was taken to the fluoroscopy suite where the patient was placed in a prone position with all extremities padded and appropriate monitors placed. The krystle ent was sterilely prepped and draped over the lumbosacral spine. Under fluoroscopic visualization the selected discs were visualized and the insertion sites were marked for paramedian approaches. Usingstandard double needle no- touch technique, a 20 [...] PACU in good condition. Image: Image 1 [facility] NAME: SWEETIE AMAYA [address] [facility] PHYS: Yenny Proctor MD [place], [place] [address] : 1945 AGE: 75 SEX: F LOC: BraydonDELVIN PHONE #: [phone] EXAM DATE: 04/20/2021 STATUS: [facility] [place] FAX #: [phone] RAD #: [id number] D/C DT PAGE 1 Signed Report (CONTINUED) Patient Name: SWEETIE AMAYA Unit No: [id number] EXAMS: CPT CODE: [id number] XR FLUORO FOR SPINE INJ 52843 (Continued) Image: Image 2 Image: Image 3 Image: Image 4 at 1722 Reported and signed by: Yenny Boone M.D. CC: Technologist: Sheron Lao(R) Transcribed D/ (1721) [facility] NAME: SWEETIE AMAYA [address] [facility] PHYS: Yneny Proctor MD [place], [place] [address] : 1945 AGE: 75 SEX: F LOC: JAKUB PHONE #: [phone] EXAM DATE: 04/20/2021 STATUS: [facility] [place] [facility] [place] FAX #: [phone] RAD #: [id number] D/C DT PAGE 2 Signed Report Patient Name: SWEETIE AMAYA Unit No: [id number] EXAMS: CPT CODE: [id number] XR FLUORO FOR SPINE INJ 42524 (Continued) Orig Print D/T:S: 04/20/2021 (1724) [facility] NAME: SWEETIE AMAYA [address] [facility] PHYS: Yenny Proctor MD [place] [address] : 1945 AGE: 75 SEX: F LOC: JAKUB PHONE #: [phone] EXAM DATE: 04/20/2021 STATUS: [facility] [place] FAX #: [phone] RAD #: [id number] D/C DT PAGE 3 Signed ReportTissue [id number] 22:10:00 Test Item Value Reference Range Interpretation Comments Case Report (test code Surgical Pathology = 104) Report Case: [id number] Authorizing Provider: John Paul Lakhani, Collected: 05/25/2020 08:42 AM Ordering Location: [facility] Received: 05/25/2020 10:04 AM PERIOPERATIVE SERVICES Pathologist: Rip Duncan MD Specimen: Plaque, RIGHT CAROTID PLAQUE DIAGNOSIS (test code = h6hkgJAyBXTqu7lgUMRrtGF 3220) uZzEwMzNcZnRuYmpcdWMxIH tccnRmMVxlcGljOTIwMlxhb uBjEBXjzCVbX7UwmujdSDai CX2lHH0aoBufcOWndIAxLYO rTiMzt5eqd978xVXxx2euTP GWsndreNu4oYqiD17so9X3I yeeP62rwXPhKCbbrCGvslvo czIwIEFSVEVSWSwgUklHSFQ vO1FZI3PUBVziIV3MROJRHA VMC3YACZx5YWUqpvUBXFTSW mNEQUZYDNZVA8TPKehjD3UN Z8jAISGdJCMXWQWMD9KMMCC PVElDIFBMQVFVRSBccGFyfX qmzcEeUHcop4GrRYclNCNjZ E6orUtlYZXsBY8nYGDlA6sx lI0ervb0ByWfIALhCtT0EAY hsiI4Lxl7EGAdKRfyu5jqm9 BxOGYnIDs4oKzgNxBgFPOrk 2lzcyBcZmNoYXJzZXQwIEFy cGXeJ193n3vif6jnrbVefFQ 7QJWeFYL6UFvkdoZcqbI7KX zfzFYdNgA8FDjgzfKfXHatr sHraaJwIrq0UODlS168YRP3 jTglu0sgZPV2HIReUPPrFpV gFa1guCOhM802VSRtPGQTLX NskWp2PPTbewWdfrIgmRMXi 370W695e4vbRWXrlvPurRsY ozbxv6kfY029TKOtxCDehlA eTcVpVTAxeWLuhPP2AGZeWF 0qttpiZWuzUDbwVHYsstL5A SZaaDLqE1HtBVFqCV3cvcty JQG5SEhfTGYqTUW3HvUqTNF ci3Dgnan2YyVurq8yog54HR M0q9SxwCxyXAF9NXE5SeFvK i4zyVTtMIPoXA9hYiBblZJy QTMbvs46iKluSQhrAPO3IBB itsKnt2Lld4ccSdVfiyAmY0 llN9NtOQFlYFFyDLLwTnHmq aIwb0Win4WxaVYgdKm1h5dm HIJfTZWvhZbgn4oeFIL8HKU ebVUwF7scqO6dFQMjMX9fap zcq5paDXegYXmkJYTgcPZ3l sC3TIGpuALaM9CjuI2fTZZx COxpCUSswll5EvUkSt3yuZO yeTcyMFxzYmtwYWdlXHBnbm NvbnRccGduZGVjXHBsYWluX HBsYWluXGYwXGZzMjRccWxc bGFuZzEwMzNcaGljaFxmMVx pEdYlCKYmPVhhT5qmNkTkJz ZfKob8MCTrdLYrEQHsRps5R PTluHDpHQBMgUnspA4lGAAc eRdqcE2soMN6NWNtwbTqyVX KbS1wIZAYfR6cGrH9HmNvXr I8DDe7NXLreADksD6= CPT Code(s) (test code g6qyhXBtHZWqhOE1SeQxFIY = 3357) ut6dfr9SdnGHooWUiIGklmM PkisXrnc45mRS8xK45OV5cO QQbHhW5YHZdqfG5Fev0BVVi WGBepUQrR524h8vee0isjfD uvDA0iYkmZAMyNITcOKmuAF JbIlXlLQetTRQ4QAo0CaGkK HBhcn0= CLINICAL HISTORY (test h7fkqLZcPLJlkKA7KfDpCGK code = 3356) qt4jsr2BefPEwcQOkYHrklK TmccVxrc73fCV6sZ55QI1vS LMhVhP9OOMzgvY6Rbx5UEVi FJZlfLBrL851a3fzf0rjboX ncBP8hMumDFRtQMDdGAqkMX ArTcAlE7Owh9WaYCQloKVmb 3NpcywgcmlnaHRccGFyfQ== SPECIMEN SOURCE (test p1lclVSdRFMfkJK8WaSzROY code = 3377) gc0pth6HanXNtfXZeUPkikP DsvkTppv32zOL7tX98QX8nP ESkJhF3OJQurdP1Att9HGEc KKXmpHSzW771o1tmd8fqapL caJD6rHtxYZPvCLRzLHayAP LiMiXiD0Che7AgQXkekzyrl HRccGFyfQ== GROSS DESCRIPTION n9pfwXWtIJYpuQWlDgUnLIF (test code = 3366) oDFTjl1wbGNKgtQUaEgPuBr NcZnRuYmpcdWMxXGRlZmYwe 1chu964sYDry0qkOYEMhxem zNp6v4doPTQxIyH3hZNkRQv cR0sfkfCouVSxJYXhOZc3jQ 29OMPveX8bxHHiFNdexbJvD sH1DKzrGEPtOnO6HTBjsVGd IJMbG7wkBEHoQDkrSMBvBJb hyAUlKUM5vCgvy5O3fNFgqD QhcGccXrCdJkGcKYXZf3XvY Kt0nSyjZ1BkBRZsRwL1gJGo SAYfRGnyAVGmEVTuirB9yA6 1PUkfmvV4hDTds0Esj04zo2 15yO3olEYwIIS4HITdXPKoo MXyCNSeQXU4CITamHBoW9z1 UiIuwTIqH5S5IuZjiOTaN2Y 4FnXrbATnI7X7NzGhpLRtJO NxdREzUk8snVQppXUuqu8sy r46EFA3w1FyaFykVWZ9BXT8 YoCeAt0tiSPbJYUoCTTgzUI fMEGbXF0fdBMgOEKpaB6ect xjXHBnYnJkcmhlYWRccGdic rHcOf6jqSbjZLE8IZkdE2ti kF7kElV5VXxwF1nysZ2vKVs 6SGvduTB8IKCffX9yRR3ubh wgo1pbPvSzTT5kgwhdb0jjF pRvEY6ogls2o8feKtUbJI1k mcmpe5nkGaDkWOkuEMGfytn mAPPfe8TcbqkyIIFct9PwQ4 AglLrgP35tnMqyY97wSXWfz EulsP0weRqtoW6eTmVoVcXe NFxwYXJkXHBsYWluXGYxXGZ zMjBcbGFuZzEwMzNcaGljaF ziCAnsNtKxQMHlNIpyC7roX jFcZnMyMCBBLiBSZWNlaXZl ZCBmcmVzaCBsYWJlbGVkIHd pdGggdGhlIHBhdGllbnRcJ2 J4tbAtGB6iZLNqKVCbO6OsD BCqS33oJVYmiH4rOEObOW8d ICJwbGFxdWUiIGlzIGEgcHJ rpljadNKbxQPrdnKyl3CwGC J4LtOfMTLnbE0gzThnwfAzJ cG5BVuuv1wifvAlAXHsKPD2 PWX3hKQaVWLxKrpsrFEeGTO ct06weLNcb0TpjD3fKSFqM6 9gzO5hlHFeK5UbOYCiTZMhZ G0ohE7uFYTiEX2tEkjqD88o fU6nJUdukHZ1IOJcDYZHtXD xm2GlV3zvIM5cxYClx4FbwY CovCwwk9HncPfetjUdGDGcH QRfifPfqPQoEYmwdQImH8L5 kW6vflQgMQSlgCRuamomnIN zxM4oYE64YHLnNMbwGFUejN BpykZlwh0fIZYdpRXoa5Huj CE8mJJfDQPsW5Ptd82qIFJd UPElmFGcbTA6TVJpdU5vCGM gJCHpgVsat1jtCyXlSJJwsC MnZimzJARut97rDZhvfwVcj PvkSFYArCLko2CwJQriBPJy FVYIOZCkNSZWHFpMS5NPHET tXHBhcn0= MICROSCOPIC u2rhtPOgUEYvzSF5KuGyNQC DESCRIPTION (test code zm2pfw2DyvMGfhIWdQUecrN = 3371) IxgmRbcm75lUP4eA65FP4yU XHtUpQ1NFBnhmN1Xly0EOLv ZDHukTUaW972p4gmt1iefjT jcGC9oGaqGVFlGLGiTXpwME MeYyLwFHVlIb5bpBYkCXXje n0= [facility] [id number] 22:10:00Surgical Pathology Report Case: [id number] Authorizing Provider: John Paul Lakhani, Collected: 05/25/2020 08:42 AM Ordering Location: [facility] Received: 05/25/2020 10:04 AM PERIOPERATIVE SERVICES Pathologist: Rip Duncan MD Specimen: Plaque, RIGHT CAROTID PLAQUE ARTERY, RIGHT CAROTID, 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 Received fresh labeled with the patient's name, medical record number and "plaque" is a previously incised tubular portion of yellow-red plaque with a bifurcationmeasuring 4 cm in length and ranging 0.4-0.9 cm in diameter. The specimen is serially sectioned to reveal calcifications measuring up to 0.4 cm in thickness. Field Organizer sections are submitted in A1, following decalcification.VIDA Salcedo PA ([facility])cmPerformedBasic Metabolic [id number] 06:29:00 Test Item Value Reference Range Interpretation Comments Sodium (test code = 133 meq/L 136-145 L 2951-2) Potassium (test code = 4.0 meq/L 3.5-5.1 2823-3) Chloride (test code = 99 meq/L 98-107 5-0) CO2 (test code = 27 meq/L -2027-9) BUN (test code = 11 mg/dL 7-21 3094-0) Creatinine (test code 0.73 mg/dL 0.57-1.25 = 2160-0) Glucose (test code = 120 mg/dL 70-105 H 2345-7) Calcium (test code = 8.8 mg/dL 8.4-10.2 05867-7) EGFR (test code = 78 mL/min/1.73 [place] [address]-2) NOT ACCURATE CREATININE CLEARANCE IN PREDICTING GLOMERULAR FILTRATION RATE . ESTIMATED GFR I S NOT APPLICABLE FOR DIALYSIS PATIENTS. CARLOS ALBERTO (test code = CARLOS ALBERTO) [employer] Supervisor ID - SM Lab Interpretation Abnormal (test code = 66177-4) [facility] METABOLIC [id number] 06:29:00 Test Item Value Reference Range Interpretation [...] S NOT APPLICABLE FOR DIALYSIS PATIEN TS. [employer] Supervisor ID - [id number] (Hemogram only)2020-05-26 05:34:00 Test Item Value Reference Range Interpretation Comments WBC (test code = 6690-2) 8.2 See_Comment [A utomated message] The system iVilka generated this result transmitted ref erence range: 3.5 - 10 .5 K/L. The refe rence range was not u sed to interpret this result as normal/abnor mal. RBC (test code = 789-8) 3.89 See_Comment L [Au tomated message] The system iVilka generated this result transmitted ref erence range: 3.93 - 5 .22 M/L. The refe rence range was not u sed to interpret this result as normal/abnor mal. MCHC (test code = 786-4) 33.1 See_Comment L [A utomated message] The system iVilka generated this result transmitted ref erence range: [...] code = 208 See_Comment [Aut omated message] 777-3) The system iVilka generated this result transmitted ref erence range: 150 - 45 0 K/CU MM. The referen ce range was not u sed to interpret this result as normal/abnor mal. MPV (test code = 10.0 fL 9.4-12.3 60031-6) nRBC (test code = 413) 0 See_Comment [Aut omated message] The system iVilka generated this result transmitted ref erence range: 0 - 0 /1 00 WBC. The refere nce range was not u sed to interpret this result as normal/abnor mal. Lab Interpretation (test Abnormal code = 79116-6) [facility] (HEMOGRAM ONLY)2020-05-26 05:34:00 Test Item Value Reference [...] WBC 0-0 (BEAKER) (test code = 413) ABORH, [id number] 07:03:00 Test Item Value Reference Range Interpretation Comments ABO Grouping (test code = 2588) A Rh Factor (test code = 2589) [facility] [id number] 06:05:00 Test Item Value Reference Range Interpretation Comments POC-Glucose Meter (test 106 mg/dL 70-110 : TE STED AT [facility] code = 1538) [address] [facility], 770 30: [employer] Supervisor/Techni shilpi ID = [id number] for CATY, SUSY AL Lab Interpretation (test Normal code = 03568-8) [facility]-GLUCOSE [id number] 06:05:00 Test Item Value Reference Range Interpretation Comments POC-GLUCOSE METER 106 mg/dL 70-110 : TESTED A T [facility] 6720 (BEAKER) (test code [facility], = 1538) [address]: [employer] Supervisor/Techni shilpi ID = [id number] for JORD AN, LACRYSTAL SARS-CoV2/RT-PCR (Asymptomatic ONLY)2020-05-23 08:12:00 Test Item Value Reference Range Interpretation Comments SARS-COV2/RT-PCR Negative Not Detected, (test code = Negative, See 99729-7) external report for linked test SARS-COV-2 [facility] PERFORMING LAB (test code = 62614-3) CARLOS ALBERTO (test code = COMMENT:Negative result [...] the Act. Testing was performed using the Kang SARS-CoV-2 assay. Fact Sheet for Healthcare Providers:https://www.Q-Layer.[employer]/phuong/RT_SA JU-OhX-2_PTR_Hckb_Uwhxu_ 51-078423.pdf Fact Sheet for Healthcare Patients:https://www.Gasngo.[employer]/phuong/RT_SAR I-PmQ-0_Zgeauzj_Hdlj_Esn et_EN_51-692225W0.pdf Performing Laboratory:[facility], [place] [address] [place], [place] [address]ARS-COV2/RT-PCR ([facility])2020-05-23 08:12:00 Test Item Value Reference Range Interpretation Comments SARS-COV2/RT-PCR (test Negative Not Detected, Negative, code = 6238720) See external report for linked test SARS-COV-2 PERFORMING LAB [facility] ANTON[facility] (test code = 9450595) COMMENT:Negative result for this test determines that [...] the Kang SARS-CoV-2 assay.Fact Sheet for Healthcare Providers:https://www.One Month.[employer]/sa l/QC_RAOL-IiD-8_HZV_Siad_Bhbab_35-401415.pdfFact Sheet for Healthcare Patients:https://www.[employer]. [employer]/phuong/MI_EVIM-OnQ-5_Shcezcd_Hbot_Dghmn_TC_58-639532F5.pdfPerforming Laboratory:[facility] [place] [address] Electrocardiogram, 50-issq9078-72-26 11:39:02Interface, External Ris In - 05/22/2020 11:39 AM CSTVentricular Rate 46 BPMAtrial Rate 46 BPMP-R Interval 210 msQRS Duration 94 msQ-T Interval 442 msQTC Calculation(Bazett) 386 msP [place] 82 degreesR [place] 58 degreesT [place] 61 degreesSinus bradycardia with 1st degree A-V blockNonspecific ST abnormalityNo previous ECGs availableConfirmed by MD Sutton Roberto ([id number]) on 05/22/2020 11:38:58 [facility] CenterType and screen, [id number] 11:11:00 Test Item Value Reference Range Interpretation Comments ABO/RH AUTOMATED (BEAKER) (test A POSITIVE code = 2260) Ab Scrn (test code = 890-4) NEGATIVE [facility] METABOLIC [id number] 10:37:00 Test Item Value Reference Range Interpretation [...] S NOT APPLICABLE FOR DIALYSIS PATIEN TS. [employer] Supervisor ID - PIAYA LProthrombin time/[id number] 10:33:00 Test Item Value Reference Interpretation Comments Range Protime (test code = 11.7 See_Comment L [Autom ated 5902-2) message] The system which generated this result transmitted reference range : 11.9 - 14.2 seconds. The reference range was not used to interpret this result as normal/abnormal . INR (test code = 0.89 See_Comment [Automated 6301-6) message] The system which generated this result [...] valves. Lab Interpretation Abnormal (test code = 27551-6) [facility] CenterPROTHROMBIN TIME/[id number] 10:33:00 Test Item Value Reference Range Interpretation Comments PROTIME (BEAKER) 11.7 seconds 11.9-14.2 L (test code = 759) INR (BEAKER) (test 0.89 See_Comment [Automat ed message] code = 370) The system iVilka generated this result transmitted ref erence range: [...] heart valves.CBC with platelet count + automated [id number] 10:24:00 Test Item Value Reference Range Interpretation Comments WBC (test code = 6690-2) 6.8 See_Comment [A utomated message] The system iVilka generated this result transmitted ref erence range: 3.5 - 10 .5 K/L. The refe rence range was not u sed to interpret this result as normal/abnor mal. RBC (test code = 789-8) 4.37 See_Comment [Au tomated message] The system iVilka generated this result transmitted ref erence range: 3.93 - 5 .22 M/L. The refe rence range was not u sed to interpret this result as normal/abnor mal. MCHC (test code = 786-4) 32.1 See_Comment L [A utomated message] The system iVilka generated this result transmitted ref erence range: [...] code = 232 See_Comment [Aut omated message] 777-3) The system [employer] generated this result transmitted ref erence range: 150 - 45 0 K/CU MM. The referen ce range was not u sed to interpret this result as normal/abnor mal. MPV (test code = 10.1 fL 9.4-12.3 97494-7) nRBC (test code = 413) 0 See_Comment [Aut omated message] The system [employer] generated this result transmitted ref erence range: [...] See_Comment [Aut omated message] 670) The system [employer] generated this result transmitted ref erence range: 1.56 - 6 .13 K/L. The refe rence range was not u sed to interpret this result as normal/abnor mal. # Lymphs (test code = 1.37 See_Comment [Auto mated message] 414) The system [employer] generated this result transmitted ref erence range: 1.18 - 3 .74 K/L. The refe rence range was not u sed to interpret this result as normal/abnor mal. # Monos (test code = 0.45 See_Comment H [Autom ated message] 415) The system [employer] generated this result transmitted ref erence range: 0.24 - 0 .36 K/L. The refe rence range was not u sed to interpret this result as normal/abnor mal. # Eos (test code = 416) 0.08 See_Comment [Au tomated message] The system [employer] generated this result transmitted ref erence range: 0.04 - 0 .36 K/L. The refe rence range was not u sed to interpret this result as normal/abnor mal. # Baso (test code = 417) 0.05 See_Comment [A utomated message] The system [employer] generated this result transmitted ref erence range: 0.01 - 0 .08 K/L. The refe rence range was not u sed to interpret this result as normal/abnor mal. Immature 0 % 0-1 Granulocytes-Relative (test code = 2801) Lab Interpretation (test Abnormal code = 94023-2) [facility] W/PLT COUNT & AUTO [id number] 10:24:00 Test Item Value Reference Range Interpretation [...] = 2801) - XR FLUORO FOR SPINE [id number] 21:10:00 [facility] : 1945 Sex: F Patient Name: SWEETIE AMAYA Unit No: [id number] EXAMS: CPT CODE: [id number] XR FLUORO FOR SPINE INJ 08823 LUMBAR FACET INJECTION DIAGNOSTIC REFERRAL PHYSICIAN: None [...] OF PROCEDURE: After obtaining stable vital signs, in formed consent and IV access patient was taken to the fluoroscopy suite where the patient was placedin a prone position with all extremities padded [...] Image: Image 1 Image: Image 2 at 2110 Reported and signed by: Yenny Boone M.D. [facility] NAME: SWEETIE AMAYA [address] [facility] PHYS: Yenny Proctor MD [place] [address] : 1945 AGE: 74 SEX: F LOC: [facility] PHONE #: [phone] EXAM DATE: 04/20/2020 STATUS: [facility] [place] FAX #: [phone] RAD #: [id number] D/C DT PAGE 1 Signed Report (CONTINUED) Patient Name: SWEETIE AMAYA Unit No: [id number] EXAMS:CPT CODE: [id number] XR FLUORO FOR SPINE INJ 77447 (Continued) CC: Technologist: Sheron Lao(R) Transcribed D/ (2109) [facility] [place] NAME: SWEETIE AMAYA [address] [facility] PHYS: Yenny Proctor MD [place] [address] : 1945 AGE: 74 SEX: F LOC: JAKUB PHONE #: [phone] EXAM DATE: 04/20/2020 STATUS: [place] [facility] [place] FAX #: [phone] RAD #: [id number] D/C DT PAGE 2 Signed Report Patient Name: SWEETIE AMAYA UnitNo: [id number] EXAMS: CPT CODE: [id number] XR FLUORO FOR SPINE INJ 53738 (Continued) Orig Print D/T:S: 04/20/2020 (2112) [facility] [place] NAME: SWEETIE AMAYA [address] [facility] PHYS: Yenny Chapman MD [place] [address] : 1945 AGE: 74 SEX: F LOC: JAKUB PHONE #: [phone] EXAM DATE: 04/20/2020 STATUS: [place] [facility] [place] FAX #: [phone] RAD #: [id number] D/C DT PAGE 3 Signed ReportGLUBED 2020-04-20 08:40:00 Test Item Value Reference Range Interpretation Comments GLUBED (test code = GLUBED) 94 mg/dL 60-125 N [id number] 08:40:00 Test Item Value Reference Range Interpretation Comments GLUBED (test code = GLUBED) 90 mg/dL 60-125 N - XR FLUORO FOR SPINE [id number] 20:05:00 [facility] : 1945 Sex: F Patient Name: SWEETIE AMAYA Unit No: [id number] EXAMS: CPT CODE: [id number] XR FLUORO FOR SPINE INJ 04403 LUMBAR DISCOGRAM AND INTRADISCAL INJECTION REFERRING PHYSICIAN: [...] annular degeneration. Provocation with injection was negative. Anesthetic response [...] paresthesias. Isovue 300 contrast 0.2 ml with Hfpbxobxccs63 mg/mL 0.2 ml was then injected to produce each discogram. Bupivacaine 0.75% 0.25 mL with lidocaine 4% 0.5 ml with triamcinolone 30 mg was then injected, provocation was recorded and the needles wereremoved. There were no signs of intravascular or intrathecal uptake. The patient's vital signs remained stable. The patient was taken to the PACU in good condition. [facility] NAME: SWEETIE CR [address] [facility] PHYS: Yenny Proctor MD [place], [place] [address] : 1945 AGE: 74 SEX: F LOC: BraydonDELVIN PHONE #: [phone] EXAM DATE: 04/06/2020 STATUS: [facility] [place] [facility] [place] FAX #: [phone] RAD #: [id number] D/C DT PAGE 1 Signed Report (CONTINUED) Patient Name: SWEETIE AMAYA Unit No: [id number] EXAMS: CPT CODE: [id number] XR FLUORO FOR SPINE INJ 36755 (Continued) Image: Image 1 Image: Image 2 Image: Image 3 at 2004 Reported and signed by: Yenny Boone M.D. CC: Technologist: Sheron Lao(R) Transcribed D/ (2004) [facility] NAME: SWEETIE AMAYA [address] [facility] PHYS: Yenny Proctor MD [place], [place] [address] : 1945 AGE: 74 SEX: F LOC: JAKUB PHONE #: [phone] EXAM DATE: 04/06/2020 STATUS: [facility] [place] FAX #: [phone] RAD #: [id number] D/C DT PAGE 2 Signed Report Patient Name: SWEETIE AMAYA Unit No: [id number] EXAMS: CPT CODE: [id number] XR FLUORO FOR SPINE INJ 76501 () Orig Print D/T: S: 04/06/2020 (2007) [facility] [place] NAME: SWEETIE AMAYA [address] [facility] PHYS: Yenny Proctor MD [place], [place] [address] : 1945 AGE: 74 SEX: F LOC: JAKUB PHONE #: [phone] EXAM DATE: 04/06/2020 STATUS: REG SD FAX #: [phone] RAD#: [id number] D/C DT PAGE 3 Signed [id number] 08:57:00 Test Item Value Reference Range Interpretation Comments GLUBED (test code = GLUBED) 101 mg/dL 60-125 N [id number] 08:38:00 Test Item Value Reference Range Interpretation Comments GLUBED (test code = GLUBED) 83 mg/dL 60-125 N - XR FLUORO FOR SPINE [id number] 19:04:00 [facility] : 1945 Sex: F Patient Name: SWEETIE AMAYA Unit No: [id number] EXAMS: CPT CODE: [id number] XR FLUORO FOR SPINE INJ 86499 LUMBAR EPIRADICULAR INJECTION REFERRAL PHYSICIAN: None PREOPERATIVE DIAGNOSIS: Lumbar Radiculitis POSTOPERATIVE DIAGNOSIS: Multilevel lumbar disc degeneration and displacement with spinal stenosis and right lower extremity radicular pain PROCEDURES PERFORMED: Fluoroscopically guided needle localization of the right L3, right L4 and right L5 spinal nerves with transforaminal epidurograms and epidural injection of local anesthetic and steroid. FINDINGS: Good flow seen through the right L3-4 and L4-5foramen with tight flow and horizontal root sign [...] at 1904 Reported and signed by: Yenny Boone M.D. [facility] [place] NAME: SWEETIE AMAYA Shay [address] [facility] PHYS: Yenny Proctor MD [place], [place] [address] : 1945 AGE: 74 SEX: F LOC: YCHATO PHONE #: [phone] EXAM DATE: 01/14/2020 STATUS: [facility] [place] FAX #: [phone] RAD #: [id number] D/C DT PAGE 1 Signed Report (CONTINUED) Patient Name: SWEETIE AMAYA Unit No: [id number] EXAMS: CPT CODE: [id number] XR FLUORO FOR SPINE INJ 51273 (Continued) CC: Yenny Boone MD Technologist: XIOMY PRUITT RT(R) Transcribed D/ (1903) [facility] [place] NAME: SWEETIE AMAYA [address] [facility] PHYS: Yenny Proctor MD [place] [address] : 1945 AGE: 74 SEX: F LOC: YTigistDELVIN PHONE #: [phone] EXAM DATE: 01/14/2020 STATUS: [facility] [place] FAX #: [phone] RAD #: [id number] D/C DT PAGE 2 Signed Report Patient Name: SWEETIE AMAYA Unit No: [id number] EXAMS: CPT CODE: [id number] XR FLUORO FOR SPINE INJ 82041 (Continued) Orig Print D/T: S: 01/14/2020(1907) [facility] [place] NAME: SWEETIE AMAYA [address] [facility] PHYS: Yenny Proctor MD [place] [address] : 1945 AGE: 74 SEX: F LOC: YTigistDELVIN PHONE #: [phone] EXAM DATE: 01/14/2020 STATUS: [facility] [place] FAX #: [phone] RAD #: [id number] D/C DT PAGE3 Signed ReportGLUBED 2020-01-14 12:41:00 Test Item Value Reference Range Interpretation Comments GLUBED (test code = GLUBED) 102 mg/dL 60-125 N [id number] 07:14:00 Test Item Value Reference Range Interpretation Comments GLUBED (test code = GLUBED) 83 mg/dL 60-125 N - XR FLUORO FOR SPINE [id number] 15:44:00 Patient Name: SWEETIE AMAYA Unit No: [id number] EXAMS: CPT CODE: [id number] XR FLUORO FOR SPINE INJ 82068 LUMBAR EPIRADICULAR INJECTION REFERRAL PHYSICIAN: None PREOPERATIVE [...] taken tothe PACU in good condition. at 6566 Reported and signed by: Yenny Boone M.D. CC: Technologist: Sheron Lao(Jarad) Transcribed D/ (7419) [facility] [place] NAME: SWEETIE AMAYA Shay [address] [facility] PHYS: Yenny Proctor MD [place], [place] [address] : 1945 AGE: 73 SEX: F LOC: JAKUB PHONE #: [phone] EXAM DATE: 08/01/2019 STATUS: [facility] [place] FAX #: [phone] RAD #: [id number] D/C DT PAGE 1 Signed Report Patient Name: SWEETIE AMAYA Unit No: [id number] EXAMS: CPT CODE: [id number] XR FLUORO FOR SPINE INJ 38788 (Continued) Orig Print D/T: S: 08/01/2019 (1547) [facility] [place] NAME: SWEETIE AMAYA [address] [facility] PHYS: Yenny Proctor MD [place], [place] [address] : 1945 AGE: 73 SEX: F LOC: JAKUB PHONE #: [phone] EXAM DATE: 08/01/2019 STATUS: [facility] [place] FAX #: [phone] RAD #: [id number] D/C DT PAGE 2 Signed [id number] 12:02:00 Test Item Value Reference Range Interpretation Comments GLUBED (test code = GLUBED) 103 mg/dL 60-125 N [id number] 10:01:00 Test Item Value Reference Range Interpretation Comments GLUBED (test code = GLUBED) 86 mg/dL 60-125 N - XR FLUORO FOR SPINE [id number] 11:48:00 Patient Name: SWEETIE AMAYA Unit No: [id number] EXAMS: CPT CODE: [id number] XR FLUORO FOR SPINE INJ 84185 LUMBAR EPIRADICULAR INJECTION REFERRAL PHYSICIAN: None PREOPERATIVE [...] epidural displacement across the L4-5 grade 1 spondylolisthesis.Provocation with injection was negative. Anesthetic response was [...] operating room and placed in a prone positionwith all extremities padded and appropriate monitors placed. [...] in good condition. at 1148 Reported and signed by: Yenny Boone M.D. CC: Yenny Boone MD Technologist: MERCEDES ALANIZ (RT.R) Transcribed D/ 1141) [facility]AN[facility] [place] NAME: SWEETIE AMAYA Shay [address] [facility] PHYS:Yenny Proctor MD [place], [place] [address] : 1945 AGE: 73 SEX: F LOC: JAKUB PHONE #: [phone] EXAM DATE: 01/02/2019 STATUS: [facility] [place] [facility] [place] FAX #: [phone] RAD #: [id number] D/C DT PAGE 1 Signed Report Patient Name: SWEETIE AMAYA Unit No: [id number] EXAMS: CPT CODE: [id number] XR FLUORO FOR SPINE INJ 02922 (Continued) Orig Print D/T: S: 01/02/2019 (1151) [facility] [place] NAME: SWEETIE AMAYA [address] [facility] PHYS: Yenny Proctor MD [place], [place] [address] : 1945 AGE: 73 SEX: F LOC: JAKUB PHONE #: [phone] DATE: 01/02/2019 STATUS: REG SDC FAX #: [phone] RAD #: [id number] D/C DT PAGE 2 Signed Report- XR FLUORO FOR SPINE [id number] 16:43:00 Patient Name: SWEETIE AMAYA Unit No: [id number] EXAMS: CPT CODE: [id number] XR FLUORO FOR SPINE INJ 06848 LUMBAR EPIRADICULAR INJECTION REFERRAL PHYSICIAN: None PREOPERATIVE [...] and moderate displacement across the L3-4 and L4-5discs. Provocation with injection was negative. Anesthetic response [...] a 25 gauge needle was advanced to thebase of each pedicle without paresthesias. Isovue-300 contrast [...] to the PACU in good condition. at 1643 Reported andsigned by: Yenny Boone M.D. CC: Yenny Boone MD Technologist: NERY INGRAM RT(R) TranscribedD/ (1642) tDENISER.MTM [facility] NAME: [facility]WE[facility] AMAYA [address] [facility] Proctor MD [place], [place] [address] : 1945 AGE: 73 SEX: F LOC: JAKUB PHONE #: [phone] EXAM DATE: 11/27/2018 STATUS: [facility] [place] [facility] [place] FAX #: [phone] RAD #: [id number] D/C DT PAGE 1 Signed Report Patient Name: SWEETIE AMAYA Unit No: [id number] EXAMS:CPT CODE: [id number] XR FLUORO FOR SPINE INJ 48639 (Continued) Orig Print D/T: S: 11/27/2018 (1645) [facility] NAME: SWEETIE AMAYA [address] [facility] PHYS: Yenny Proctor MD [place], [place] [address] : 1945 AGE: 73 SEX: F LOC: JAKUB PHONE #: [phone] EXAM DATE: 11/27/2018 STATUS: [facility] [place] [facility] [place] FAX #: [phone] RAD #: [id number] D/C DT PAGE 2 Signed Report- XR L-SPINE W/BEND [id number] 10:06:00 Patient Name: SWEETIE AMAYA Unit No: [id number] EXAMS: CPT CODE: [id number] XR L-SPINE W/BEND VIEW 72709 COMPARISON: None available. IMAGES PROVIDED: 7 FINDINGS: [...] bilaterally as well as bilateral sacroiliac joint degenerative change. IMPRESSION: Multilevel lumbar spondylosis without evidence of dynamic instability. at 1006 Reported and signed by: Juan Kenyon M.D. CC: Yenny Boone MD Technologist: Shira Clemons RT.(R) Transcribed D/T: 9 (1006) Concepcion [facility] NAME: SWEETIE AMAYA [address] [facility] PHYS: Yenny Salcido MD : 1945 AGE: 73 SEX: F [place] [address] LOC: Y.RAD PHONE #: [phone] EXAM DATE: 11/08/2018 STATUS: DEP CLI FAX #: [phone] RAD #: [id number] D/C DT PAGE 1 Signed Report Patient Name: SWEETIE AMAYA Unit No: [id number] EXAMS: CPT CODE: [id number] XR L-SPINE W/BEND VIEW 27212 (Continued) Orig Print D/T: S: 11/10/2018 (1009) [facility] SWEET[facility] A[facility] [address] [facility] PHYS: Yenny Proctor MD : 1945 AGE: 73 SEX: F [place] [address] LOC: Y.RAD PHONE #: [phone] EXAM DATE: 11/08/2018 STATUS: DEP CLI FAX #: [phone] RAD #: [id number] D/C DT PAGE 2 Signed ReportBASIC METABOLIC [id number] 06:20:00 Test Item Value Reference Range Interpretation [...] RATE (test code = GFR) mL/mi n/1.73 [id number] Range:Healthy A dults >90 mL/min/1.73 m2 For Chronic Kid marie Disease: Stage II Mild Decrease i n GFR 60-90 Stage III Moderate Decrea se in GFR 30-59 Stage IV Severe Decrease in GFR 15-29 Stage V Kidney Failure <15 CREATININE (test code 0.86 mg/dL 0.55-1.30 N = CREAT) CALCIUM (test code = 8.8 mg/dL 8.2-10.1 N CA) HGB [id number] 05:52:00 Test Item Value Reference Range Interpretation Comments HEMOGLOBIN (test code = HGB) 11.0 g/dL 12-16 L HEMATOCRIT (test code = HCT) 32.1 % 37-47 L - USG NDL PLACEMENT (Bxg/Asp)2018-05-22 12:35:00 Patient Name: SWEETIE AMAYA Unit No: [id number] EXAMS: CPT CODE: [id number] USG NDL PLACEMENT (Bxg/Asp) 44136 INDICATION: Right knee pain. PROCEDURE: Ultrasound guided cryoanalgesia (Iovera) of theright anterior femoral cutaneous nerve and the superior and inferior branches of the infrapatellar branch of the saphenous nerve. RIGGING LOFT MECHANIC: Dr. Reyes. MEDICATIONS: 1 % Lidocaine local anesthesia CONTRAST: None. COMPLICATION: None immediately evident. DESCRIPTION: After the procedure, including indication and potential complications had been discussed with the patient and questions answered, writteninformed consent was obtained. The patient was then [...] After achieving 1% Lidocaine local anesthesia, the Iov era cryoanalgesia needle was inserted into the top of the treatment area, and the treatment was initiated. The duration of one treatment cycle was 60 seconds. After each treatment cycle, the needle wasremoved and repositioned in an overlapping position over the adjacent previous treatment location. Anew treatment cycle was started. The treatment cycle [...] covered with a band-aid. The patient was instructedto stand and mobilize the knee joint. No immediate complication were observed. The patient toleratedthe procedure well and was subsequently discharged in stable condition with instructions for follow up. Preprocedural pain level: 6/ 10 Postprocedural pain level: 2/ 10 IMPRESSION: Cryoanalgesia of theright anterior femoral cutaneous nerve and the superior and inferior branches of the infrapatellar branch of the saphenous nerve as above. [facility] NAME: SWEETIE AMAYA [address] [facility] PHYS: Theo Singh MD : 1945 AGE: 72 SEX: F [place], [place] [address] LOC: Y.RAD PHONE #: [phone] EXAM DATE: 05/22/2018 STATUS: REG CLI FAX #: [phone] RAD #: [id number] D/C DT PAGE 1 Signed Report (CONTINUED) Patient Name: SWEETIE AMAYA Unit No: [id number] EXAMS: CPT CODE: [id number] USG NDL PLACEMENT (Bxg/Asp) 03356 (Continued) at 1235 Reported and signed by: Kirt richter MD CC: Theo Caban MD Technologist: ISAC TORO RDMS, RVT Transcribed D/ (6510) t.KETANR.JCL [facility] NAME: SWEETIE AMAYA [address] [facility] PHYS: Theo Singh MD : 1945 AGE: 72 SEX: F [place] [address] LOC: BraydonRAD PHONE #: [phone] EXAM DATE: 05/22/2018 STATUS: REG CLI FAX #: [phone] RAD #: [id number] D/C DT PAGE 2 Signed Report Patient Name: SWEETIE AMAYA Unit No: [id number] EXAMS: CPT CODE: [id number] USG NDL PLACEMENT (Bxg/Asp) 36793 (Continued) Orig Print D/T: S: 05/22/2018 (1238) [facility] NAME: SWEETIE AMAYA [address] [facility] PHYS: NICOLEMONIQUE Can Theo Caban MD : 1945 AGE: 72 SEX: F [place] [address] LOC: BraydonRAD PHONE #: [phone] EXAM DATE: 05/22/2018 STATUS: REG CLI FAX #: [phone] RAD #: [id number] D/C DT PAGE 3 Signed ReportCOMPREHENSIVE METABOLIC [...] RATE (test code = GFR) mL/mi n/1.73 [id number] Range:Healthy Adults >90 mL/min/1.73 m2 For Chronic [...] TOTAL (test code = ALKP) CBC W/AUTO [id number] 12:06:00 Test Item Value Reference Range Interpretation [...] % 0-0 N code = NRBC) PROTHROMBIN [id number] 11:59:00 Test Item Value Reference Range Interpretation [...] BLOOD, PT every other day NTHROMBOPLASTIN TIME [id number] 11:59:00 Test Item Value Reference Range Interpretation Comments PTT ACTIVATED (test code = APTT) 29.8 secs 24.9-37.0 N IS PATIENT ON ANTICOAGULANTS ? YLIST ANTICOAGULANT/ANTI PLT MEDICATION : AspirinHas Lab been notified if Patient is on Heparin Drip? NOIf Yes, order CBC, OCCULT BLOOD, PT every other day N Notes Date/Time Note Provider Source 2022-11-03 Formatting of this note might be differe nt from the original. [facility] 10:44:12-00:00 Received outpatient laboratory report from [facility]. Placed in the providers box. Electronically signed by [facility] at 0 11/03/2022 10:46 AM CDT 2022-10-28 [facility] 12:29:00-00:00 [facility] Rehab Discharge Summary REPORT#:[id number] REPORT STATUS: Signed DATE:10/28/22 TIME: 1229 PATIENT: SWEETIE AMAYA UNIT #: [id number] ROOM/BED: [place] [address] : [birth year] AGE: 77 SEX: F ATTEND: Yenny Cortez MD ADM AUTHOR: Cinthya Burger PA-C * ALL edits or amendments must be made on the Onevest/computer document * Med Rec Med Rec Discharge meds: Stop taking the following medications: FERROUS SULFATE (FEOSOL) 325 MG (65 MG IRON) TAB 325 MILLIGRAM ORAL DAILY. Qty = 30 AMIODARONE (PACERONE) 200 MG TAB 200 MILLIGRAM ORAL TWICE DAILY AT 9AM AND 5PM. Qty = 60 CAPTOPRIL (CAPOTEN) 12.5 MG TAB 6.25 MILLIGRAM ORAL EVERY 8 HOURS. Qty = 30 Continue taking these medications: OMEPRAZOLE ER (PriLOSEC) 40 MG CAP.DR 40 MILLIGRAM ORAL DAILY. ASPIRIN (ASPIRIN) 81 MG TAB.CHEW 81 MILLIGRAM ORAL DAILY. GABAPENTIN (NEURONTIN) 300 MG CAP 600 MILLIGRAM ORAL BEDTIME. MESALAMINE ER (APRISO) 0.375 GRAM CAP.SR.24H 1.5 GRAM ORAL DAILY. DOXYCYCLINE MONOHYDRATE (MONODOX) 100 MG CAP 100 MILLIGRAM ORAL EVERY 12 HOURS. Qty = 15 This prescription has been renewed ATORVASTATIN (LIPITOR) 40 MG TAB 40 MILLIGRAM ORAL 2100 Qty = 30 This prescription has been renewed METOPROLOL TARTRATE (LOPRESSOR) 50 MG TAB 50 MILLIGRAM ORAL EVERY 12 HOURS. Qty = 60 This prescription has been renewed Start taking the following new medications: methocarbamoL (ROBAXIN) 500 MG TAB 500 MILLIGRAM ORAL EVERY 8 HR NEEDED. as nee ded for MUSCLE SPASMS Qty = 30 No Refills CAPTOPRIL (CAPOTEN) 12.5 MG TAB 12.5 MILLIGRAM ORAL EVERY 8 HOURS. Qty = 90 No Refills ACETAMINOPHEN/CODEINE (TYLENOL WITH CODEINE #3 3 00/30 MG) 300 MG-30 MG TAB 1 TABLET ORAL EVERY 6 HOURS NEEDED. as neede d for PAIN SCALE 4-6 Days = 7 Qty = 15 No Refills FUROSEMIDE (LASIX) 20 MG TAB 20 MILLIGRAM ORAL DAILY. Qty = 30 No Refills ERGOCALCIFEROL (VITAMIN D2) 1,250 MCG (50,000 UN IT) CAP 50,000 INTERNATIONAL UNITS ORAL EVERY 7 DAYS. Qty = 7 No Refills amLODIPine (NORVASC) 5 MG TAB 5 MILLIGRAM ORAL DAILY. Qty = 30 No Refills Objective Physical Exam VS: Last Documented: Result Date Time Pulse Ox 92 10/28 0442 B/P 115/57 10/28 0542 B/P Mean 76.3 10/28 0542 O2 Delivery Room air 10/28 541 Temp 99.3 10/28 0542 Pulse 65 10/28 0542 Resp 17 10/28 0542 PATIENT WEIGHT: Weight (lb): 171 Weight (oz): 15.37 Weight (kg): 78.000 General appearance: alert, awake HEENT: anicteric, mucosal membranes moist, scler a clear Neck: supple, no JVD Cardiovascular: regular rate rhythm, S1/S2 Respiratory: aerating well, clear bilaterally Abdomen: bowel sounds present, non-distended, so ft, non-tender Skin: incision (sternal intact, PPM intact ), dr copeland, intact Musculoskeletal - general: Musculoskeletal - general: joints normal, range of motion normal, no atrophy Neuro/CHARGING MANIPULATOR: alert, oriented X 3, normal speech, n o motor deficits, no sensory deficits Functional Progress Functional progress: The data set between the solid lines has been im ported from multidisciplinary team documentation. __ FUNCTIONAL ACTIVITY ADMISSION STATUS DISCHARGE STATUS Toilet hygiene Setup or cleanup (5) Independent (6) Toilet transfer Setup or cleanup (5) Independe nt (6) Eating Setup or cleanup (5) Independent (6) Shower/bathing Supervision/touch (4) Independen t (6) Dressing upper body Partial/moderate (3) Indepe ndent (6) Dressing lower body Supervision/touch (4) Indep endent (6) Transfer to/from bed to chair Supervision/touch (4) Independent (6) Wheel 50ft w/ 2 turns Supervision/touch (4) Wheel 150 ft Partial/moderate (3) Walk 50 ft w/ 2 turns Supervision/touch (4) Ind ependent (6) Walk 150 ft Supervision/touch (4) Independent ( 6) Four steps Supervision/touch (4) Independent (6 ) __ General Information General Information Problem List/A P: 1. HTN (hypertension) 2. Asthma 3. GERD (gastroesophageal reflux disease) 4. CKD (chronic kidney disease), stage III 5. Mitral valve regurgitation 6. Sick sinus syndrome 7. Atrial fibrillation 8. S/P CABG (coronary artery bypass graft) 9. S/P placement of cardiac pacemaker Date of admission: Date of admission: 10/22/22 Discharge date: 10/28/22 Discharge diagnosis: see problem list above Hospital course: vaughn mitral regurgitation status post MVR on Acute pulmonary insufficiency following major ca rdiothoracic surgery Cardiogenic shock Acute blood loss anemia Metabolic acidosis Hypokalemia Sick Sinus Syndrome Hx Asthma GERD HTN P A FIB Plan: Enter into comprehensive rehab with PT/O T for 3 hrs per day 5-6 days per week. She will remain with sternal precautions as well as pacemaker precaution to the left upper extremity. Continue to work on weanin g O2 as tolerated. Therapy to work on OOB daily to the chair, transfers, progr essive gait, adls and etc. IM consulted and CVS to assist with medical management. Monitor vitals and continue telemetry for now. She does not need AC due to YUE. Railroad Firer to assist with safe and appropriate DC plan madeleine. Continue current medication including Protonix for GERD and Gabapentin for her RLS. Documentation of Current Medications in the [facility] Record : I attest that the foregoing medication list in [facility] medical record is true, accurate, and complete to the best of my knowled ge. Advanced Care Plan for patients age > 65 *Advanced Care Plan Discussed: [X ]Yes who, living will, POA, and code status, is MPOA, FUll Code [ ] No explain why] *Surrogate Decision Maker: [ ]Yes who [ ] No explain why 10/24: All incisions look good. She is do ing well from a functional standpoint. She is vitamin D deficient will supplement. She has been hyponatremic we will follow-up on this. Team conference the day after tomorrow. Continue rehab. 10/25: Pain last night that kept her up. Seem more musculoskelatal. Robxin and Tylenol du dnot help. 1 x do se of [place] given and did. Lilkely exacerbated from OT and exerciseing. Monitor. Tylenol #3 ordered while in acute care. Discussed also heating pad as needed. 10/26: See team conference note. Discharge date se t for Monday the . Patient with cardiac myopathy which is u nder neuromuscular impairment. Patient will need a shower chair and outpatient therapy closer to home which is in [facility]. 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 Continue rehab. 10/27: PT/OT. She is making progress. Incisions lo oking good. She states still with chest musculoskeltal pain to the ri ght chest wall and scapula region. She will need FU with CVS, Cardiology and EP. 10/28: DC home today. Pt. condition on discharge: improved, stable Allergies: Allergies: Penicillins (Coded, Intermediate, BREATHING ISSU ES- OK W KEFLEX, 10/05/22) Discharge Instructions Discharge Instructions Discharge to: Home/Self Care Additional Discharge Routines: PCP Follow-Up, Co nsultant Follow-Up Activity: No Driving Agency referral: Prescriptions: e-prescribe Rx drug database reviewed: yes Discharge management: greater than 30 mins Follow-up Appointments PCP: PCP: Yenny Boone MD PCP follow up timeframe: In 2-3 weeks Consulting provider 1: Provider 1: Navdeep Carey MD Specialty: Thoracic Surgery Consulting provider 2: Provider 2: Paras Vidales MD Specialty: CardiologyInterventional Electronically Signed by Cinthya Burger PA-C on at 1230 RPT #:[id number] END OF REPORT 2022-10-28 [facility] 11:58:00-00:00 [facility] Hospitalist Progress Note REPORT#:[id number] REPORT STATUS: Signed DATE:10/28/22 TIME: 1158 PATIENT: SWEETIE AMAYA UNIT #: [id number] ROOM/BED: [place] [address] : 47 AGE: 77 SEX: F ATTEND: Yenny Cortez MD ADM AUTHOR: Nina Melgar MD * ALL edits or amendments must be made on the Onevest/Orchestrate document * Subjective Chief complaint: she feel well . she will go home today Review of Systems All systems rev neg: except as noted Objective General VS/I O: Vital Signs: Date Time Temp Pulse Resp B/P B/P Pulse O2 O2 F low FiO2 Mean Ox Delivery Rate 10/28 0542 37.4 65 17 115/57 76.3 92 Room air 10/28 0014 36.8 62 15 123/65 83.9 95 Room air 10/27 1951 37.5 75 17 160/74 102.4 98 Room air 10/27 1536 37.4 67 18 136/67 90.0 95 Room air 10/27 1501 71 18 150/77 101.5 24 hour I O ending at 0700: 10/28 0700 08 1900 Intake Total 100 956 Output Total Balance 100 956 Intake, Oral 100 956 PATIENT WEIGHT: Weight (lb): 171 Weight (oz): 15.37 Weight (kg): 78.000 Medications: Active Meds + DC'd Last 24 Hrs Amiodarone HCl (CORDARONE) 200 MG DAILY PO Acetaminophen/Codeine Phosphate (TYLENOL W CODEI NE NO.3) 1 TAB Q6H PRN PRN PO Ergocalciferol (DRISDOL) 50,000 INTL.UNITS Q7D P O (CKD) Simethicone (MYLANTA GAS) 80 MG Q4H PRN PRN PO Docusate Sodium (COLACE) 100 MG DAILY PO Methocarbamol (ROBAXIN) 500 MG Q8H PRN PRN PO Mesalamine (DELZICOL 400MG CAP DR.) 800 MG AC BK DIN PO Aspirin (ASPIRIN) 81 MG DAILY PO Ferrous Sulfate (FERROUS SULFATE) 325 MG DAILY P O Furosemide (LASIX) 20 MG DAILY PO Pantoprazole (PROTONIX) 40 MG DAILY@0600 PO Captopril (CAPOTEN) 12.5 MG Q8HR PO Amlodipine Besylate (NORVASC) 5 MG BEDTIME PO Atorvastatin Calcium (LIPITOR) 40 MG 2100 PO Doxycycline Monohydrate (DOXYCYCLINE MONOHYDRATE ) 100 MG Q12HR PO Gabapentin (NEURONTIN) 600 MG BEDTIME PO Melatonin (Melatonin) 6 MG BEDTIME PO Metoprolol Tartrate (LOPRESSOR) 50 MG Q12HR PO Acetaminophen (TYLENOL) 650 MG Q4H PRN PRN PO Bisacodyl (DULCOLAX) 10 MG DAILY PRN PRN RECTAL Ondansetron HCl (ZOFRAN ODT) 4 MG Q6H PRN PRN PO Polyethylene Glycol (MIRALAX) 17 GM BID PRN PRN PO Physical Exam General appearance: alert, awake, oriented Head/Eyes: atraumatic, normal conjunctiva/sclera , normal eyelids/periorb. Neck: non-tender Cardiovascular: normal heart sounds, regular rat e rhythm Respiratory: aerating well, clear to auscultatio n Abdomen: non-tender, normal bowel sounds, soft, no distention Extremities: moves all, no calf tenderness, no e vasiliy Neuro/CHARGING MANIPULATOR: alert, oriented X 3, CNII-XII intact, normal speech, no motor deficits, no sensory deficits Skin: dry, intact Diagnosis, Assessment Plan Free Text DxA P Notes Free text DxA P notes: cardiac debility severe mitral valve regurgitation -post mitral v alve surgery HTN HLD CHF -- diastolic SSS, symptomatic bradycardia; CHB -s/p TPM afib -- rate control PT/OT BP- -- stable on metoprolol/capopril/norvasc monitor BP afib - rate control -- metoprolol and amiodarone no AC -- due to post surgery CHF-lasix stable HLD -- continue lipitor will continue follow patient in the rehab facili ty 10/23-- she feel tire after PT/OT -- no cp no sob -- monitor BP -- continue PT/OT 10/24 Continue strengthening in rehab. Vitals sta ble. 10/25- she feel well . no cp no sob -- continue PT/OT 10/26- no cp no sob --BP-- high today -- monitor now 10/28- she feel well . she will go home today Electronically Signed by Nina Melgar MD on 3 at 1641 RPT #:[id number] END OF REPORT 2022-10-28 [facility] 11:37:00-00:00 [facility] ([facility] Cardiology Progress Note REPORT#:[id number] REPORT STATUS: Signed DATE:10/28/22 TIME: 1137 PATIENT: SWEETIE AMAYA UNIT #: [id number] ROOM/BED: [place] [address] : 47 AGE: 77 SEX: F ATTEND: Yenny Cortez MD ADM AUTHOR: Amarilis Valentin CNP * ALL edits or amendments must be made on the Onevest/computer document * Subjective Patient reports: No: complaints. Objective General VS/I O: 24 hour I O ending at 0700: 10/28 0700 10/27 1900 Intake Total 100 956 Output Total Balance 100 956 Intake, Oral 100 956 Vital Signs: Date Time Temp Pulse Resp B/P B/P Pulse O2 O2 F low FiO2 Mean Ox Delivery Rate 10/28 0542 37.4 65 17 115/57 76.3 92 Room air 10/28 0014 36.8 62 15 123/65 83.9 95 Room air 10/27 1951 37.5 75 17 160/74 102.4 98 Room air 10/27 1536 37.4 67 18 136/67 90.0 95 Room air 10/27 1501 71 18 150/77 101.5 PATIENT WEIGHT: Weight (lb): 171 Weight (oz): 15.37 Weight (kg): 78.000 Medications: Active Meds + DC'd Last 24 Hrs Amiodarone HCl (CORDARONE) 200 MG DAILY PO Acetaminophen/Codeine Phosphate (TYLENOL W CODEI NE NO.3) 1 TAB Q6H PRN PRN PO Ergocalciferol (DRISDOL) 50,000 INTL.UNITS Q7D P O (CKD) Simethicone (MYLANTA GAS) 80 MG Q4H PRN PRN PO Docusate Sodium (COLACE) 100 MG DAILY PO Methocarbamol (ROBAXIN) 500 MG Q8H PRN PRN PO Mesalamine (DELZICOL 400MG CAP DR.) 800 MG AC BK DIN PO Aspirin (ASPIRIN) 81 MG DAILY PO Ferrous Sulfate (FERROUS SULFATE) 325 MG DAILY P O Furosemide (LASIX) 20 MG DAILY PO Pantoprazole (PROTONIX) 40 MG DAILY@0600 PO Captopril (CAPOTEN) 12.5 MG Q8HR PO Amlodipine Besylate (NORVASC) 5 MG BEDTIME PO Atorvastatin Calcium (LIPITOR) 40 MG 2100 PO Doxycycline Monohydrate (DOXYCYCLINE MONOHYDRATE ) 100 MG Q12HR PO Gabapentin (NEURONTIN) 600 MG BEDTIME PO Melatonin (Melatonin) 6 MG BEDTIME PO Metoprolol Tartrate (LOPRESSOR) 50 MG Q12HR PO Acetaminophen (TYLENOL) 650 MG Q4H PRN PRN PO Bisacodyl (DULCOLAX) 10 MG DAILY PRN PRN RECTAL Ondansetron HCl (ZOFRAN ODT) 4 MG Q6H PRN PRN PO Polyethylene Glycol (MIRALAX) 17 GM BID PRN PRN PO Physical Exam General appearance: alert, awake ENT: normal nose Neck: full range of motion, no JVD Cardiovascular: CV assessment: regular rate and rhythm, no murm ur Respiratory: decreased breath sounds, no distres s Abdomen: soft, non-tender, no distention Genitourinary: no flank pain, no urinary cathete r Upper extremity: UE assessment: normal temperature, no edema Lower extremity: LE assessment: normal temperature Neuro/CHARGING MANIPULATOR: normal speech Skin: dry, intact, normal color Psychiatry: normal affect Results Results: no new labs Diagnosis, Assessment Plan Free Text DxA P Notes Free Text DxA P Notes: Ms. Amaya is 77 years old female with past m edical history hypertension, hyperlipidemia, carotid artery disease status po st right CEA who came to [facility] on October 11 for shortness of b reath. Patient was found to have a severe MVR. She underwent mitral valve re placement and ALAA. Due to generalized weakness she is transferred to rehab . - Debility. Per Rehab. OT/PT. - Severe MR s/p SMVR, PVI, and ALAA. On ASA 81mg po daily, Lasix 20mg po daily. - HTN. BP controlled. On captopril 12.5 mg p.o. every 8 hours, metopr olol titrate 50 mg p.o. twice daily, amlodipine 5 mg p.o. at bedtime - HLD. On statin. - CHB/SSS s/p PPM insertion. Normal function. 100% APaced. - H/o post op AV RVR (10/18) - back to nsr/APaced . On Metoprolol. No need AC - she had ALAA. amiodarone 200mg po daily. -Vit D deficiency. Per rehab. Vitamin D 25 level 23.6 On Vitamin D home today. Outpatient FU with Dr. Vidales - primary cardio at 1256 Electronically Signed by Vivi Bowden MD on at 8566 RPT #:[id number] END OF REPORT 2022-10-27 [facility] 10:39:00-00:00 [facility] Rehab Progress Note REPORT#:[id number] REPORT STATUS: Signed DATE:10/27/22 TIME: 1039 PATIENT: SWEETIE AMAYA UNIT #: [id number] ROOM/BED: [place] [address] : 47 AGE: 77 SEX: F ATTEND: Yenny Cortez MD ADM AUTHOR: Cinthya Burger PA-C * ALL edits or amendments must be made on the Onevest/computer document * Subjective Chief complaint: Seen bedside. She is doing well. She sta henna that she will be ready to DC home. No acute distress. States is asking for a few Ty lenol#3 and Robaxin. Objective General VS: Vital Signs: Date Time Temp Pulse Resp B/P B/P Pulse O2 O2 F low FiO2 Mean Ox Delivery Rate 10/27 0629 98.8 65 18 114/69 83.9 93 Room air 10/27 0510 98.6 62 18 138/74 95.8 93 Room air 10/26 2325 99.0 65 18 144/78 100.1 94 Room air 10/26 1549 99.3 66 16 124/70 88.5 96 Room air 10/26 1446 98.8 64 134/69 90.7 98 PATIENT WEIGHT: Weight (lb): 171 Weight (oz): 15.37 Weight (kg): 78.000 Medications: Active Meds + DC'd Last 24 Hrs Amiodarone HCl (CORDARONE) 200 MG DAILY PO Acetaminophen/Codeine Phosphate (TYLENOL W CODEI NE NO.3) 1 TAB Q6H PRN PRN PO Ergocalciferol (DRISDOL) 50,000 INTL.UNITS Q7D P O (CKD) Simethicone (MYLANTA GAS) 80 MG Q4H PRN PRN PO Docusate Sodium (COLACE) 100 MG DAILY PO Methocarbamol (ROBAXIN) 500 MG Q8H PRN PRN PO Mesalamine (DELZICOL 400MG CAP DR.) 800 MG AC BK DIN PO Aspirin (ASPIRIN) 81 MG DAILY PO Ferrous Sulfate (FERROUS SULFATE) 325 MG DAILY P O Furosemide (LASIX) 20 MG DAILY PO Pantoprazole (PROTONIX) 40 MG DAILY@0600 PO Captopril (CAPOTEN) 12.5 MG Q8HR PO Amlodipine Besylate (NORVASC) 5 MG BEDTIME PO Atorvastatin Calcium (LIPITOR) 40 MG 2100 PO Doxycycline Monohydrate (DOXYCYCLINE MONOHYDRATE ) 100 MG Q12HR PO Gabapentin (NEURONTIN) 600 MG BEDTIME PO Melatonin (Melatonin) 6 MG BEDTIME PO Metoprolol Tartrate (LOPRESSOR) 50 MG Q12HR PO Acetaminophen (TYLENOL) 650 MG Q4H PRN PRN PO Bisacodyl (DULCOLAX) 10 MG DAILY PRN PRN RECTAL Ondansetron HCl (ZOFRAN ODT) 4 MG Q6H PRN PRN PO Polyethylene Glycol (MIRALAX) 17 GM BID PRN PRN PO Functional Progress Functional progress: The data set between the solid lines has been im ported from multidisciplinary team documentation. __ FUNCTIONAL ACTIVITY ADMISSION STATUS INTERIM ST ATUS Toilet hygiene Setup or cleanup (5) Independent (6) Toilet transfer Setup or cleanup (5) Independen t (6) Eating Setup or cleanup (5) Independent (6) Shower/bathing Supervision/touch (4) Independen t (6) Dressing upper body Partial/moderate (3) Superv ision/touch (4) Dressing lower body Supervision/touch (4) Indep endent (6) Transfer to/from bed to chair Supervision/touch (4) Independent (6) Wheel 50ft w/ 2 turns Supervision/touch (4) Ind ependent (6) Wheel 150 ft Partial/moderate (3) Independent (6) Walk 50 ft w/ 2 turns Supervision/touch (4) Sup ervision/touch (4) Walk 150 ft Supervision/touch (4) Supervision/t ouch (4) Four steps Supervision/touch (4) Supervision/to uch (4) __ Physical Exam General appearance: alert, awake HEENT: anicteric, mucosal membranes moist, scler a clear Neck: supple, no JVD Cardiovascular: regular rate rhythm, S1/S2 Respiratory: aerating well, clear bilaterally Abdomen: bowel sounds present, non-distended, so ft, non-tender Skin: incision (sternal intact, PPM intact ), dr copeland, intact Musculoskeletal - general: Musculoskeletal - general: joints normal, range of motion normal, no atrophy Neuro/CHARGING MANIPULATOR: alert, oriented X 3, normal speech, n o motor deficits, no sensory deficits Results Findings/Data: Laboratory Tests 10/25/22 0558: [Embedded Image Not Available] Diagnosis, Assessment Plan Problem List/A P: 1. HTN (hypertension) 2. Asthma 3. GERD (gastroesophageal reflux disease) 4. CKD (chronic kidney disease), stage III 5. Mitral valve regurgitation 6. Sick sinus syndrome 7. Atrial fibrillation 8. S/P CABG (coronary artery bypass graft) 9. S/P placement of cardiac pacemaker Free Text A P: Severe mitral regurgitation status post MVR on Acute pulmonary insufficiency following major ca rdiothoracic surgery Cardiogenic shock Acute blood loss anemia Metabolic acidosis Hypokalemia Sick Sinus Syndrome Hx Asthma GERD HTN P A FIB Plan: Enter into comprehensive rehab with PT/O T for 3 hrs per day 5-6 days per week. She will remain with sternal precautions as well as pacemaker precaution to the left upper extremity. Continue to work on weanin g O2 as tolerated. Therapy to work on OOB daily to the chair, transfers, progr essive gait, adls and etc. IM consulted and [facility] to assist with medical management. Monitor vitals and continue telemetry for now. She does not need AC due to YUE. Railroad Firer to assist with safe and appropriate DC plan madeleine. Continue current medication including Protonix for GERD and Gabapentin for her RLS. Documentation of Current Medications in the [facility] Record : I attest that the foregoing medication list in [facility] medical record is true, accurate, and complete to the best of my knowled ge. Advanced Care Plan for patients age > 65 *Advanced Care Plan Discussed: [X ]Yes who, living will, POA, and code status, is MPOA, FUll Code [ ] No explain why] *Surrogate Decision Maker: [ ]Yes who [ ] No explain why 10/24: All incisions look good. She is do ing well from a functional standpoint. She is vitamin D deficient will supplement. She has been hyponatremic we will follow-up on this. Team conference the day after tomorrow. Continue rehab. 10/25: Pain last night that kept her up. Seem more musculoskelatal. Robxin and Tylenol du dnot help. 1 x do se of [place] given and did. [place] exacerbated from OT and exerciseing. Monitor. Tylenol #3 ordered while in acute care. Discussed also heating pad as needed. 10/26: See team conference note. Discharge date se t for Monday the fourth. Patient with cardiac myopathy which is u nder neuromuscular impairment. Patient will need a shower chair and outpatient therapy closer to home which is in [facility]. 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 Continue rehab. 10/27: PT/OT. She is making progress. Incisions lo oking good. She states still with chest musculoskeltal pain to the ri t chest wall and scapula region. She will need FU with CVS, Cardiology and EP. Rehab attestation: Face to face exam completed. Treatment plan disc ussed with patient. Electronically Signed by Cinthya Burger PA-C on at 1306 RPT #:[id number] END OF REPORT 2022-10-27 [facility] 06:32:00-00:00 [facility] ([facility]) Cardiology Progress Note REPORT#:[id number] REPORT STATUS: Signed DATE:10/27/22 TIME: 06 PATIENT: SWEETIE AMAYA UNIT #: [id number] ROOM/BED: [place] [address] : 47 AGE: 77 SEX: F ATTEND: Yenny Cortez MD ADM AUTHOR: Amarilis Valentin CNP * ALL edits or amendments must be made on the Onevest/computer document * Subjective Patient reports: No: complaints. Objective General VS/I O: Vital Signs: Date Time Temp Pulse Resp B/P B/P Pulse O2 O2 F low FiO2 Mean Ox Delivery Rate 10/27 0629 37.1 65 18 114/69 83.9 93 Room air 10/27 0510 37.0 62 18 138/74 95.8 93 Room air 10/26 2325 37.2 65 18 144/78 100.1 94 Room air 10/26 1549 37.4 66 16 124/70 88.5 96 Room air 10/26 1446 37.1 64 134/69 90.7 98 / 0633 69 18 151/74 100.1 94 Room air PATIENT WEIGHT: Weight (lb): 171 Weight (oz): 15.37 Weight (kg): 78.000 Medications: Active Meds + DC'd Last 24 Hrs Amiodarone HCl (CORDARONE) 200 MG DAILY PO Acetaminophen/Codeine Phosphate (TYLENOL W CODEI NE NO.3) 1 TAB Q6H PRN PRN PO Ergocalciferol (DRISDOL) 50,000 INTL.UNITS Q7D P O (CKD) Simethicone (MYLANTA GAS) 80 MG Q4H PRN PRN PO Docusate Sodium (COLACE) 100 MG DAILY PO Methocarbamol (ROBAXIN) 500 MG Q8H PRN PRN PO Mesalamine (DELZICOL 400MG CAP DR.) 800 MG AC BK DIN PO Aspirin (ASPIRIN) 81 MG DAILY PO Ferrous Sulfate (FERROUS SULFATE) 325 MG DAILY P O Furosemide (LASIX) 20 MG DAILY PO Pantoprazole (PROTONIX) 40 MG DAILY@0600 PO Captopril (CAPOTEN) 12.5 MG Q8HR PO Amlodipine Besylate (NORVASC) 5 MG BEDTIME PO Atorvastatin Calcium (LIPITOR) 40 MG 2100 PO Doxycycline Monohydrate (DOXYCYCLINE MONOHYDRATE ) 100 MG Q12HR PO Gabapentin (NEURONTIN) 600 MG BEDTIME PO Melatonin (Melatonin) 6 MG BEDTIME PO Metoprolol Tartrate (LOPRESSOR) 50 MG Q12HR PO Acetaminophen (TYLENOL) 650 MG Q4H PRN PRN PO Bisacodyl (DULCOLAX) 10 MG DAILY PRN PRN RECTAL Ondansetron HCl (ZOFRAN ODT) 4 MG Q6H PRN PRN PO Polyethylene Glycol (MIRALAX) 17 GM BID PRN PRN PO Pacemaker: permanent Physical Exam General appearance: alert, awake, oriented, no a cute distress ENT: normal nose Neck: full range of motion, no JVD Cardiovascular: CV assessment: regular rate and rhythm, no murm ur Respiratory: decreased breath sounds, no distres s Abdomen: soft, non-tender, no distention Genitourinary: no flank pain, no urinary cathete r Upper extremity: UE assessment: normal temperature, no edema Lower extremity: LE assessment: normal temperature Neuro/CHARGING MANIPULATOR: normal speech Skin: dry, intact, normal color Psychiatry: normal affect Results Results: no new labs, vital signs reviewed Diagnosis, Assessment Plan Plan discussed with: patient, nurse Free Text DxA P Notes Free Text DxA P Notes: Ms. Amaya is 77 years old female with past m edical history hypertension, hyperlipidemia, carotid artery disease status po st right CEA who came to [facility] on October 11 for shortness of b reath. Patient was found to have a severe MVR. She underwent mitral valve re placement and ALAA. Due to generalized weakness she is transferred to rehab . - Debility. Per Rehab. OT/PT. - Severe MR s/p SMVR, PVI, and ALAA. On ASA 81mg po daily, Lasix 20mg po daily. - HTN. BP controlled. On captopril 12.5 mg p.o. every 8 hours, metopr olol titrate 50 mg p.o. twice daily, amlodipine 5 mg p.o. at bedtime - HLD. On statin. - CHB/SSS s/p PPM insertion. Normal function. 100% APaced. - H/o post op AV RVR (10/18) - back to nsr/APaced . On Metoprolol. No celeste of AC snce she had ALAA. amiodarone 200mg po daily. -Vit D deficiency. Per rehab. Vitamin D 25 level 23.6 On Vitamin D Plan to DC home tomorrow Outpatient FU with Dr. Vidales - primary cardio MDM per Dr. Bowden. at 1230 Electronically Signed by Vivi Bowden MD on at 1653 RPT #:[id number] END OF REPORT 2022-10-26 [facility] 16:16:00-00:00 [facility] Rehab Progress Note REPORT#:[id number] REPORT STATUS: Signed DATE:10/26/22 TIME: 1616 PATIENT: SWEETIE AMAYA UNIT #: [id number] ROOM/BED: [place] [address] : 47 AGE: 77 SEX: F ATTEND: Yenny Cortez MD ADM AUTHOR: Yenny Cortez MD * ALL edits or amendments must be made on the el ectronic/computer document * Subjective Chief complaint: Seen bedside. She is doing well. Staff in IDT me eting. Review of Systems Constitutional: Denies: chills, fatigue, fever. Respiratory: Denies: SOB. Cardiovascular: Denies: chest pain, palpitations. GI: Denies: abdominal pain. : Denies: dysuria. Objective General VS: Vital Signs: Date Time Temp Pulse Resp B/P B/P Pulse O2 O2 F low FiO2 Mean Ox Delivery Rate 10/26 1549 99.3 66 16 124/70 88.5 96 Room air 10/26 1446 98.8 64 134/69 90.7 98 10/26 0633 69 18 151/74 100.1 94 Room air 10/26 0533 99.0 66 17 137/62 86.8 96 Room air 10/26 0002 98.6 62 18 114/52 72.4 95 Room air 10/25 2215 98.8 10/25 2009 99.3 66 15 133/63 86.4 96 Room air PATIENT WEIGHT: Weight (lb): 171 Weight (oz): 15.37 Weight (kg): 78.000 Medications: Active Meds + DC'd Last 24 Hrs Amiodarone HCl (CORDARONE) 200 MG DAILY PO Acetaminophen/Codeine Phosphate (TYLENOL W CODEI NE NO.3) 1 TAB Q6H PRN PRN PO Ergocalciferol (DRISDOL) 50,000 INTL.UNITS Q7D P O (CKD) Simethicone (MYLANTA GAS) 80 MG Q4H PRN PRN PO Docusate Sodium (COLACE) 100 MG DAILY PO Methocarbamol (ROBAXIN) 500 MG Q8H PRN PRN PO Mesalamine (DELZICOL 400MG CAP DRTigist) 800 MG AC BK DIN PO Aspirin (ASPIRIN) 81 MG DAILY PO Ferrous Sulfate (FERROUS SULFATE) 325 MG DAILY P O Furosemide (LASIX) 20 MG DAILY PO Pantoprazole (PROTONIX) 40 MG DAILY@0600 PO Captopril (CAPOTEN) 12.5 MG Q8HR PO Amlodipine Besylate (NORVASC) 5 MG BEDTIME PO Atorvastatin Calcium (LIPITOR) 40 MG 2100 PO Doxycycline Monohydrate (DOXYCYCLINE MONOHYDRATE ) 100 MG Q12HR PO Gabapentin (NEURONTIN) 600 MG BEDTIME PO Melatonin (Melatonin) 6 MG BEDTIME PO Metoprolol Tartrate (LOPRESSOR) 50 MG Q12HR PO Acetaminophen (TYLENOL) 650 MG Q4H PRN PRN PO Bisacodyl (DULCOLAX) 10 MG DAILY PRN PRN RECTAL Ondansetron HCl (ZOFRAN ODT) 4 MG Q6H PRN PRN PO Polyethylene Glycol (MIRALAX) 17 GM BID PRN PRN PO Physical Exam General appearance: alert, awake, oriented HEENT: anicteric, mucosal membranes moist, scler a clear Neck: supple, no JVD Cardiovascular: regular rate rhythm, S1/S2 Respiratory: aerating well, clear bilaterally Abdomen: bowel sounds present, non-distended, so ft, non-tender Skin: incision (sternal intact, PPM intact ), dr copeland, intact Musculoskeletal - general: Musculoskeletal - general: joints normal, range of motion normal, no atrophy Neuro/CHARGING MANIPULATOR: alert, oriented X 3, normal speech, n o motor deficits, no sensory deficits Diagnosis, Assessment Plan Problem List/A P: 1. Atrial fibrillation 2. Sick sinus syndrome 3. Mitral valve regurgitation 4. CKD (chronic kidney disease), stage III 5. HTN (hypertension) 6. S/P placement of cardiac pacemaker Free Text A P: Severe mitral regurgitation status post MVR on Acute pulmonary insufficiency following major ca rdiothoracic surgery Cardiogenic shock Acute blood loss anemia Metabolic acidosis Hypokalemia Sick Sinus Syndrome Hx Asthma GERD HTN P A FIB Plan: Enter into comprehensive rehab with PT/O T for 3 hrs per day 5-6 days per week. She will remain with sternal precautions as well as pacemaker precaution to the left upper extremity. Continue to work on weanin g O2 as tolerated. Therapy to work on OOB daily to the chair, transfers, progr essive gait, adls and etc. IM consulted and [facility] to assist with medical management. Monitor vitals and continue telemetry for now. She does not need AC due to YUE. Railroad Firer to assist with safe and appropriate DC plan madeleine. Continue current medication including Protonix for GERD and Gabapentin for her RLS. Documentation of Current Medications in the [facility] Record : I attest that the foregoing medication list in [facility] medical record is true, accurate, and complete to the best of my knowled ge. Advanced Care Plan for patients age > 65 *Advanced Care Plan Discussed: [X ]Yes who, living will, POA, and code status, is MPOA, FUll Code [ ] No explain why] *Surrogate Decision Maker: [ ]Yes who [ ] No explain why 10/24: All incisions look good. She is do ing well from a functional standpoint. She is vitamin D deficient will supplement. She has been hyponatremic we will follow-up on this. Team conference the day after tomorrow. Continue rehab. 10/25: Pain last night that kept her up. Seem more musculoskelatal. Robxin and Tylenol du dnot help. 1 x do se of [place] given and did. Steve exacerbated from OT and exerciseing. Monitor. Tylenol #3 ordered while in acute care. Discussed also heating pad as needed. 10/26: See team conference note. Discharge date se t for Monday the . Patient with cardiac myopathy which is u nder neuromuscular impairment. Patient will need a shower chair and outpatient therapy closer to home which is in [facility]. 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 Continue rehab. Rehab attestation: Face to face exam completed. Treatment plan disc ussed with patient. Meets continued stay criteria. Agree with interdiscipl inary treatment plan. at 1621 RPT #:[id number] END OF REPORT 2022-10-26 [facility] 14:27:00-00:00 [facility] ([facility]) Rehab Team Conference REPORT#:[id number] REPORT STATUS: Signed DATE:10/26/22 TIME: 1427 PATIENT: SWEETIE AMAYA UNIT #: [id number] ROOM/BED: [place] [address] : 47 AGE: 77 SEX: F ATTEND: Yenny Cortez MD ADM AUTHOR: Yenny Cortez MD * ALL edits or amendments must be made on the el ectronic/computer document * Rehabilitation Team Conference Weekly Team Conference Team conf information: Date of conference: 10/26/22 Conference type: Initial Conference scribe: Junior Hayward CM INTERDISCIPLINARY TEAM MEETING PARTICIPANTS: TITLE NAME MD FELIX Maria, RN PT Harleen Gong, PT ELVIS Wen OT CM/DENY Pardo, [facility] Makenna San, AVRIL Staff (8) NO ATTENDEE Staff (9) NO ATTENDEE OTHER NAME [employer] 1 DAVID ALDRIDGE DIETITIAN 2 FUNCTIONAL CHANGE: TYPE ADMISSION TOTAL INTERIM TOTAL CHANGE Self care 31 37 6 Transfer 26 37 11 Mobility 23 28 5 Wheelchair distance: Mobility description: BOWEL AND BLADDER STATUS: Bowel continence admission rating: Bladder continence admission rating: Bowel and bladder team conference update: PT IS CONT OF B/B. ABLE TO PERFORM ALL CARE NEEDS. LBM 10/24 INTERDISCIPLINARY TEAM UPDATES: CORTEZ team conference update: PT ADMIT ON 10/22 FOR DX OF CARDIAC, DEBILITY/A-FIB/ CABG. PAIN CONTROLLED WITH T YLENOL/ROBAXIN NEEDED/PAIN LOCATED IN THE CHEST/ BACK. V/S WNL. SURGICAL INCISION TO THE ANTERIOR ABDOMEN, INCISION LATERAL CX LEFT, INCISION MEDIAL STERNU M, HEALING WELL, NO DRAINAGE OR ABNORMALITIES NOTED. PT IS ON ABT DOXCYCLINE FOR PROPHYLAXIS, LAST DATE OF ADMIN 10/28. PT IS ON TELE RUNNING PACING, NO ABNORMAL READINGS. NO OTHER I SSUES NOTED. PT team conference update: P ROGRESS: GOOD. TRANSFERS MOD I. GAIT X 200' W/ CGA. W/C MOBILITY MOD I X 200'. 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 LIVES IN A SSH WITH SPOUSE. PLAN TO RETURN HOME WITH HOME HEALT H AT TIME OF DISCHARGE Other discipline update 1: Other discipline update 2: Other discipline update 3: REHAB DC GOALS: Patient's identified discharge goal: INCREASE IN DEPENDENCE IN ADLS Eating discharge goal: Independent (6) Shower/bathe self discharge goal: Independent ( 6) Upper body dressing discharge goal: Independent (6) Lower body dressing discharge goal: Independent (6) Chair/bed to chair transfer discharge goal: Ind ependent (6) Transfer on/off toilet or commode discharge goa l: Independent (6) Walking 50 feet with two turns discharge goal: Independent (6) Walking 150 feet discharge goal: Independent (6 ) Four steps discharge goal: Independent (6) Twelve steps discharge goal: Partial/moderate a sst (3) [place] 150 feet discharge goal: Not applicabl e Goal 1 - Bowel function: Goal 2 - Bladder function: Nursing goal 3: Nursing goal 4: Nursing goal 5: DISCHARGE PLANNING: Barriers to discharge: Endurance, Fall risk, HERBER RNAL PRECAUTIONS Strategies for D/C barriers: END TX, Fall recove ry training, Sched caregiver training, COMPENSATORY STRATEGIES Estimated length of stay in days: 10 Anticipated discharge date: 11/01/22 Discharge date adjustment comment: Identified financial and/or community resource n eeds: Family/Caregiver training da ys: PT AND FAMILY WILL BE EDUCATED ON THE USE OF THE GAIT BELT TO LOWER THE PT TO THE FLOOR IN THE EV ENT OF LOSS OF BALANCE TO PREVENT FALL OR INJURY. FAMILY TRAINING WILL BE SCHEDULED BY THERAPY AND ON DISCHARGE [place] day (DATE): 10/31/22 Expected discharge destination: Home Anticipated services upon discharge: [facility] era Anticipated discharge equipment: SHOWER CHAIR Impairment group: neurologic conditions NOTE Document ONLY ONE Impairment Group Neurologic conditions: neuromuscular disorders Etiologic diagnosis: Cardiac Myopathy Review of comorbidities: HTN, Mitral Regurgitation, SSS, GERD, Asthma, CKD stage 3 MD Review/Recommendations Attestation: This interdisciplinary team conference was led ismael robin and I concur with all decisions made during the team conference and re visions to the individualized overall plan of care. IRF cont stay criteria NEEDS MORE REHAB. at 1429 RPT #:[id number] END OF REPORT 2022-10-26 [facility] 13:17:00-00:00 [facility] Hospitalist Progress Note REPORT#:[id number] REPORT STATUS: Signed DATE:10/26/22 TIME: 1317 PATIENT: SWEETIE AMAYA UNIT #: [id number] ROOM/BED: [place] [id number] : 47 AGE: 77 SEX: F ATTEND: Yenny Cortez MD ADM AUTHOR: Nina Melgar MD * ALL edits or amendments must be made on the el ectronic/computer document * Subjective Chief complaint: get stronger no cp no sob Review of Systems All systems rev neg: except as noted Objective General VS/I O: Vital Signs: Date Time Temp Pulse Resp B/P B/P Pulse O2 O2 Flow FiO2 Mean Ox Delivery Rate 10/26 0633 69 18 151/74 100.1 94 Room air 10/26 0533 37.2 66 17 137/62 86.8 96 Room air 10/26 0002 37.0 62 18 114/52 72.4 95 Room air 10/25 2215 37.1 10/25 2008 37.4 66 15 133/63 86.4 96 Room air 10/25 1512 37.2 63 17 138/70 92.4 96 Room air 24 hour I O ending at 0700: 10/26 0700 10/25 1900 Intake Total 200 590 Output Total Balance 200 590 Intake, Oral 200 590 Intake, Oral 0 Supplement Number 0 Incontinent Voids Number Voids 1 PATIENT WEIGHT: Weight (lb): 171 Weight (oz): 15.37 Weight (kg): 78.000 Medications: Active Meds + DC'd Last 24 Hrs Amiodarone HCl (CORDARONE) 200 MG DAILY PO Acetaminophen/Codeine Phosphate (TYLENOL W CODEI NE NO.3) 1 TAB Q6H PRN PRN PO Ergocalciferol (DRISDOL) 50,000 INTL.UNITS Q7D P O (CKD) Simethicone (MYLANTA GAS) 80 MG Q4H PRN PRN PO Docusate Sodium (COLACE) 100 MG DAILY PO Methocarbamol (ROBAXIN) 500 MG Q8H PRN PRN PO Mesalamine (DELZICOL 400MG CAP DR.) 800 MG AC BK DIN PO Aspirin (ASPIRIN) 81 MG DAILY PO Ferrous Sulfate (FERROUS SULFATE) 325 MG DAILY P O Furosemide (LASIX) 20 MG DAILY PO Pantoprazole (PROTONIX) 40 MG DAILY@0600 PO Captopril (CAPOTEN) 12.5 MG Q8HR PO Amlodipine Besylate (NORVASC) 5 MG BEDTIME PO Atorvastatin Calcium (LIPITOR) 40 MG 2100 PO Doxycycline Monohydrate (DOXYCYCLINE MONOHYDRATE ) 100 MG Q12HR PO Gabapentin (NEURONTIN) 600 MG BEDTIME PO Melatonin (Melatonin) 6 MG BEDTIME PO Metoprolol Tartrate (LOPRESSOR) 50 MG Q12HR PO Amiodarone HCl (CORDARONE) 200 MG BID 9A 5P PO ( DC) Acetaminophen (TYLENOL) 650 MG Q4H PRN PRN PO Bisacodyl (DULCOLAX) 10 MG DAILY PRN PRN RECTAL Ondansetron HCl (ZOFRAN ODT) 4 MG Q6H PRN PRN PO Polyethylene Glycol (MIRALAX) 17 GM BID PRN PRN PO Physical Exam General appearance: alert, awake, oriented Head/Eyes: atraumatic, normal conjunctiva/sclera , normal eyelids/periorb. Neck: non-tender Cardiovascular: normal heart sounds, regular rat e rhythm Respiratory: aerating well, clear to auscultatio n Abdomen: non-tender, normal bowel sounds, soft, no distention Extremities: moves all, no calf tenderness, no e vasiliy Neuro/CHARGING MANIPULATOR: alert, oriented X 3, CNII-XII intact, normal speech, no motor deficits, no sensory deficits Skin: dry, intact Diagnosis, Assessment Plan Free Text DxA P Notes Free text DxA P notes: cardiac debility severe mitral valve regurgitation -post mitral v alve surgery HTN HLD CHF -- diastolic SSS, symptomatic bradycardia; CHB -s/p TPM afib -- rate control PT/OT BP- -- stable on metoprolol/capopril/norvasc monitor BP afib - rate control -- metoprolol and amiodarone no AC -- due to post surgery CHF-lasix stable HLD -- continue lipitor will continue follow patient in the rehab facili ty 10/23-- she feel tire after PT/OT -- no cp no sob -- monitor BP -- continue PT/OT 10/24 Continue strengthening in rehab. Vitals sta ble. 10/25- she feel well . no cp no sob -- continue PT/OT 10/26- no cp no sob --BP-- high today -- monitor now Electronically Signed by Nina Melgar MD on 3 at 1504 RPT #:[id number] END OF REPORT 2022-10-26 [facility] 09:59:00-00:00 [facility] ([facility] Cardiology Progress Note REPORT#:[id number] REPORT STATUS: Signed DATE:10/26/22 TIME: 0959 PATIENT: SWEETIE AMAYA UNIT #: [id number] ROOM/BED: [place] [id number] : 47 AGE: 77 SEX: F ATTEND: Yenny Cortez MD ADM AUTHOR: Amarilis Valentin CNP * ALL edits or amendments must be made on the Onevest/computer document * Subjective Patient reports: No: complaints. Objective General VS/I O: 24 hour I O ending at 0700: 08/ 0700 10/25 1900 Intake Total 200 590 Output Total Balance 200 590 Intake, Oral 200 590 Intake, Oral 0 Supplement Number 0 Incontinent Voids Number Voids 1 Vital Signs: Date Time Temp Pulse Resp B/P B/P Pulse O2 O2 F low FiO2 Mean Ox Delivery Rate 10/26 0633 69 18 151/74 100.1 94 Room air 10/26 0533 37.2 66 17 137/62 86.8 96 Room air 10/26 0002 37.0 62 18 114/52 72.4 95 Room air 10/25 2215 37.1 10/25 2009 37.4 66 15 133/63 86.4 96 Room air 10/25 1512 37.2 63 17 138/70 92.4 96 Room air 10/25 1032 36.8 62 17 120/66 84.0 95 Room air PATIENT WEIGHT: Weight (lb): 171 Weight (oz): 15.37 Weight (kg): 78.000 Medications: Active Meds + DC'd Last 24 Hrs Amiodarone HCl (CORDARONE) 200 MG DAILY PO Acetaminophen/Codeine Phosphate (TYLENOL W CODEI NE NO.3) 1 TAB Q6H PRN PRN PO Ergocalciferol (DRISDOL) 50,000 INTL.UNITS Q7D P O (CKD) Simethicone (MYLANTA GAS) 80 MG Q4H PRN PRN PO Docusate Sodium (COLACE) 100 MG DAILY PO Methocarbamol (ROBAXIN) 500 MG Q8H PRN PRN PO Mesalamine (DELZICOL 400MG CAP DR.) 800 MG AC BK DIN PO Aspirin (ASPIRIN) 81 MG DAILY PO Ferrous Sulfate (FERROUS SULFATE) 325 MG DAILY P O Furosemide (LASIX) 20 MG DAILY PO Pantoprazole (PROTONIX) 40 MG DAILY@0600 PO Captopril (CAPOTEN) 12.5 MG Q8HR PO Amlodipine Besylate (NORVASC) 5 MG BEDTIME PO Atorvastatin Calcium (LIPITOR) 40 MG 2100 PO Doxycycline Monohydrate (DOXYCYCLINE MONOHYDRATE ) 100 MG Q12HR PO Gabapentin (NEURONTIN) 600 MG BEDTIME PO Melatonin (Melatonin) 6 MG BEDTIME PO Metoprolol Tartrate (LOPRESSOR) 50 MG Q12HR PO Amiodarone HCl (CORDARONE) 200 MG BID 9A 5P PO ( DC) Acetaminophen (TYLENOL) 650 MG Q4H PRN PRN PO Bisacodyl (DULCOLAX) 10 MG DAILY PRN PRN RECTAL Ondansetron HCl (ZOFRAN ODT) 4 MG Q6H PRN PRN PO Polyethylene Glycol (MIRALAX) 17 GM BID PRN PRN PO Pacemaker: permanent Physical Exam ENT: moist mucosal membranes, normal nose Neck: full range of motion, no JVD Cardiovascular: CV assessment: regular rate and rhythm, no murm ur Respiratory: decreased breath sounds, no distres s Abdomen: soft, non-tender, no distention Genitourinary: no flank pain, no urinary cathete r Upper extremity: UE assessment: normal temperature, no edema Lower extremity: LE assessment: normal temperature Neuro/CHARGING MANIPULATOR: normal speech Skin: dry, intact, normal color Psychiatry: normal affect Results Results: no new labs, vital signs reviewed, ivana l signs stable, rhythm personally rev'd Diagnosis, Assessment Plan Plan discussed with: patient, spouse/partner, co llaborating MD Free Text DxA P Notes Free Text DxA P Notes: Ms. Amaya is 77 years old female with past m edical history hypertension, hyperlipidemia, carotid artery disease status po st right CEA who came to [facility] on October 11 for shortness of b reath. Patient was found to have a severe MVR. She underwent mitral valve re placement and ALAA. Due to generalized weakness she is transferred to rehab . - Debility. Per Rehab. OT/PT. - Severe MR s/p SMVR, PVI, and ALAA. On ASA 81mg po daily, Lasix 20mg po daily. - HTN. BP controlled. On captopril 12.5 mg p.o. every 8 hours, metopr olol titrate 50 mg p.o. twice daily, amlodipine 5 mg p.o. at bedtime - HLD. On statin. - CHB/SSS s/p PPM insertion. Normal function. 100% APaced. - H/o post op AV RVR (10/18) - back to nsr/APaced . On Metoprolol. No celeste of AC snce she had ALAA. amiodarone 200mg po daily. -Vit D deficiency. Per rehab. Vitamin D 25 level 23.6 On Vitamin D MDM per Dr. Bowden. at 1304 Electronically Signed by Vivi Bowden MD on at 1653 RPT #:[id number] END OF REPORT 2022-10-25 [facility] 12:12:00-00:00 [facility] Rehab Progress Note REPORT#:[id number] REPORT STATUS: Signed DATE:10/25/22 TIME: 1212 PATIENT: SWEETIE AMAYA UNIT #: [id number] ROOM/BED: [place] [address] : 47 AGE: 77 SEX: F ATTEND: Yenny Cortez MD ADM AUTHOR: Cinthya Burger PA-C * ALL edits or amendments must be made on the Onevest/Or[employer] document * Subjective Chief complaint: Seen in bed. States last night had a sharp pain to the right shest wall arm. States that she could not sleep and joaquín delgado got releif from a [employer] that was a 1x order. Not present this a.m . Objective General VS: Vital Signs: Date Time Temp Pulse Resp B/P B/P Pulse O2 O2 F low FiO2 Mean Ox Delivery Rate 10/25 1032 98.2 62 17 120/66 84.0 95 Room air 10/25 0640 98.8 62 17 145/78 100.3 94 Room air 10/25 0554 98.2 61 18 146/81 102.4 93 Room air 10/25 0016 98.2 60 16 130/69 88.9 96 Room air 10/24 1936 98.6 67 16 152/76 101.1 98 Room air 10/24 1622 98.8 67 18 147/69 95.3 98 Nasal cannula 10/24 1402 82 154/79 104.0 96 PATIENT WEIGHT: Weight (lb): 171 Weight (oz): 15.37 Weight (kg): 78.000 Medications: Active Meds + DC'd Last 24 Hrs Acetaminophen/Codeine Phosphate (TYLENOL W CODEI NE NO.3) 1 TAB Q6H PRN PRN PO Potassium Chloride (POTASSIUM CHLORIDE 20MEQ TAB .ER) 20 MEQ ONCE ONE PO (DC) Hydrocodone Bitart/Acetaminophen (NORCO 7.5/325 TABLET) 1 TAB ONCE ONE PO (DC) Ergocalciferol (DRISDOL) 50,000 INTL.UNITS Q7D P O (CKD) Simethicone (MYLANTA GAS) 80 MG Q4H PRN PRN PO Docusate Sodium (COLACE) 100 MG DAILY PO Methocarbamol (ROBAXIN) 500 MG Q8H PRN PRN PO Mesalamine (DELZICOL 400MG CAP DR.) 800 MG AC BK DIN PO Aspirin (ASPIRIN) 81 MG DAILY PO Ferrous Sulfate (FERROUS SULFATE) 325 MG DAILY P O Furosemide (LASIX) 20 MG DAILY PO Pantoprazole (PROTONIX) 40 MG DAILY@0600 PO Captopril (CAPOTEN) 12.5 MG Q8HR PO Amlodipine Besylate (NORVASC) 5 MG BEDTIME PO Atorvastatin Calcium (LIPITOR) 40 MG 2100 PO Doxycycline Monohydrate (DOXYCYCLINE MONOHYDRATE ) 100 MG Q12HR PO Gabapentin (NEURONTIN) 600 MG BEDTIME PO Melatonin (Melatonin) 6 MG BEDTIME PO Metoprolol Tartrate (LOPRESSOR) 50 MG Q12HR PO Amiodarone HCl (CORDARONE) 200 MG BID 9A 5P PO Acetaminophen (TYLENOL) 650 MG Q4H PRN PRN PO Bisacodyl (DULCOLAX) 10 MG DAILY PRN PRN RECTAL Ondansetron HCl (ZOFRAN ODT) 4 MG Q6H PRN PRN PO Polyethylene Glycol (MIRALAX) 17 GM BID PRN PRN PO Functional Progress Functional progress: The data set between the solid lines has been im ported from multidisciplinary team documentation. __ FUNCTIONAL ACTIVITY ADMISSION STATUS INTERIM ST ATUS Toilet hygiene Setup or cleanup (5) Supervision /touch (4) Toilet transfer Setup or cleanup (5) Supervisio n/touch (4) Eating Setup or cleanup (5) Independent (6) Shower/bathing Supervision/touch (4) Setup or c leanup (5) Dressing upper body Partial/moderate (3) Parti al/moderate (3) Dressing lower body Supervision/touch (4) Setup or cleanup (5) Transfer to/from bed to chair Supervision/touch (4) Wheel 50ft w/ 2 turns Supervision/touch (4) Wheel 150 ft Partial/moderate (3) Walk 50 ft w/ 2 turns Supervision/touch (4) Walk 150 ft Supervision/touch (4) Four steps Supervision/touch (4) __ Physical Exam General appearance: alert, awake HEENT: anicteric, mucosal membranes moist, scler a clear Neck: supple, no JVD Cardiovascular: regular rate rhythm, S1/S2 Respiratory: aerating well, clear bilaterally Abdomen: bowel sounds present, non-distended, so ft, non-tender Skin: incision (sternal intact, PPM intact ), y, intact Musculoskeletal - general: Musculoskeletal - general: joints normal, range of motion normal, no atrophy Neuro/CHARGING MANIPULATOR: alert, oriented X 3, normal speech, n o motor deficits, no sensory deficits Results Findings/Data: Laboratory Tests: 10/25 0558 Chemistry Sodium (134 - 147 mEq/L) 136 Potassium (3.4 - 5.0 mEq/L) 3.4 Chloride (100 - 108 mEq/L) 97 L Carbon Dioxide (21 - 33 mEq/l) 32 Anion Gap (0 - 20) 10 BUN (7 - 18 mg/dL) 11 Creatinine (0.6 - 1.3 mg/dL) 0.8 Glomerular Filtr Rate (70 - 80) 76.8 Glucose (70 - 110 mg/dL) 101 Calcium (8.0 - 10.5 mg/dL) 9.4 Diagnosis, Assessment Plan Problem List/A P: 1. HTN (hypertension) 2. Asthma 3. GERD (gastroesophageal reflux disease) 4. CKD (chronic kidney disease), stage III 5. Mitral valve regurgitation 6. Sick sinus syndrome 7. Atrial fibrillation 8. S/P CABG (coronary artery bypass graft) 9. S/P placement of cardiac pacemaker Free Text A P: Severe mitral regurgitation status post MVR on Acute pulmonary insufficiency following major ca rdiothoracic surgery Cardiogenic shock Acute blood loss anemia Metabolic acidosis Hypokalemia Sick Sinus Syndrome Hx Asthma GERD HTN P A FIB Plan: Enter into comprehensive rehab with PT/O T for 3 hrs per day 5-6 days per week. She will remain with sternal precautions as well as pacemaker precaution to the left upper extremity. Continue to work on weanin g O2 as tolerated. Therapy to work on OOB daily to the chair, transfers, progr essive gait, adls and etc. IM consulted and CVS to assist with medical management. Monitor vitals and continue telemetry for now. She does not need AC due to YUE. [employer] to assist with safe and appropriate DC plan madeleine. Continue current medication including Protonix for GERD and Gabapentin for her RLS. Documentation of Current Medications in the [facility] Record : I attest that the foregoing medication list in [facility] medical record is true, accurate, and complete to the best of my knowled ge. Advanced Care Plan for patients age > 65 *Advanced Care Plan Discussed: [X ]Yes who, living will, POA, and code status, is MPOA, FUll Code [ ] No explain why] *Surrogate Decision Maker: [ ]Yes who [ ] No explain why 10/24: All incisions look good. She is do ing well from a functional standpoint. She is vitamin D deficient will supplement. She has been hyponatremic we will follow-up on this. Team conference the day after tomorrow. Continue rehab. 10/25: Pain last night that kept her up. Seem more musculoskelatal. Robxin and Tylenol du dnot help. 1 x do se of [employer] given and did. Donnay exacerbated from OT and exerciseing. Monitor. Tylenol #3 ordered while in acute care. Discussed also heating pad as needed. Rehab attestation: Face to face exam completed. Treatment plan disc ussed with patient. Meets continued stay criteria. Agree with interdiscipl inary treatment plan. Electronically Signed by Cinthya Burger PA-C on at 1215 RPT #:[id number] END OF REPORT 2022-10-25 [facility] 12:10:00-00:00 [facility] Hospitalist Progress Note REPORT#:[id number] REPORT STATUS: Signed DATE:10/25/22 TIME: 1210 PATIENT: SWEETIE AMAYA UNIT #: [id number] ROOM/BED: [place] [address] : 47 AGE: 77 SEX: F ATTEND: Yenny Cortez MD ADM AUTHOR: Nina Melgar MD * ALL edits or amendments must be made on the Onevest/computer document * Subjective Chief complaint: she is doing well with PT/OT Review of Systems Constitutional: Reports: generalized weakness. All systems rev neg: except as noted Objective General VS/I O: Vital Signs: Date Time Temp Pulse Resp B/P B/P Pulse O2 O2 F low FiO2 Mean Ox Delivery Rate 10/25 1032 36.8 62 17 120/66 84.0 95 Room air 10/25 0640 37.1 62 17 145/78 100.3 94 Room air 10/25 0554 36.8 61 18 146/81 102.4 93 Room air 10/25 0016 36.8 60 16 130/69 88.9 96 Room air 10/24 1936 37.0 67 16 152/76 101.1 98 Room air 10/24 1622 37.1 67 18 147/69 95.3 98 Nasal cannula 10/24 1402 82 154/79 104.0 96 24 hour I O ending at 0700: 10/25 0700 10/24 1900 Intake Total 200 500 Output Total Balance 200 500 Intake, Oral 200 500 Number 1 Bowel Movements Number 0 0 Incontinent Voids Number Voids 1 4 PATIENT WEIGHT: Weight (lb): 171 Weight (oz): 15.37 Weight (kg): 78.000 Medications: Active Meds + DC'd Last 24 Hrs Potassium Chloride (POTASSIUM CHLORIDE 20MEQ TAB .ER) 20 MEQ ONCE ONE PO (DC) Hydrocodone Bitart/Acetaminophen (NORCO 7.5/325 TABLET) 1 TAB ONCE ONE PO (DC) Ergocalciferol (DRISDOL) 50,000 INTL.UNITS Q7D P O (CKD) Simethicone (MYLANTA GAS) 80 MG Q4H PRN PRN PO Docusate Sodium (COLACE) 100 MG DAILY PO Methocarbamol (ROBAXIN) 500 MG Q8H PRN PRN PO Mesalamine (DELZICOL 400MG CAP DR.) 800 MG AC BK DIN PO Aspirin (ASPIRIN) 81 MG DAILY PO Ferrous Sulfate (FERROUS SULFATE) 325 MG DAILY P O Furosemide (LASIX) 20 MG DAILY PO Pantoprazole (PROTONIX) 40 MG DAILY@0600 PO Captopril (CAPOTEN) 12.5 MG Q8HR PO Amlodipine Besylate (NORVASC) 5 MG BEDTIME PO Atorvastatin Calcium (LIPITOR) 40 MG 2100 PO Doxycycline Monohydrate (DOXYCYCLINE MONOHYDRATE ) 100 MG Q12HR PO Gabapentin (NEURONTIN) 600 MG BEDTIME PO Melatonin (Melatonin) 6 MG BEDTIME PO Metoprolol Tartrate (LOPRESSOR) 50 MG Q12HR PO Amiodarone HCl (CORDARONE) 200 MG BID 9A 5P PO Acetaminophen (TYLENOL) 650 MG Q4H PRN PRN PO Bisacodyl (DULCOLAX) 10 MG DAILY PRN PRN RECTAL Ondansetron HCl (ZOFRAN ODT) 4 MG Q6H PRN PRN PO Polyethylene Glycol (MIRALAX) 17 GM BID PRN PRN PO Physical Exam General appearance: alert, awake, oriented Head/Eyes: atraumatic, normal conjunctiva/sclera , normal eyelids/periorb. Neck: non-tender Cardiovascular: normal heart sounds, regular rat e rhythm Respiratory: aerating well, clear to auscultatio n Abdomen: non-tender, normal bowel sounds, soft, no distention Extremities: moves all, no calf tenderness, no e avsiliy Neuro/CHARGING MANIPULATOR: alert, oriented X 3, CNII-XII intact, normal speech, no motor deficits, no sensory deficits Skin: dry, intact Results Findings/Data: Laboratory Tests 10/25 0558 Chemistry Sodium (134 - 147 mEq/L) 136 Potassium (3.4 - 5.0 mEq/L) 3.4 Chloride (100 - 108 mEq/L) 97 L Carbon Dioxide (21 - 33 mEq/l) 32 Anion Gap (0 - 20) 10 BUN (7 - 18 mg/dL) 11 Creatinine (0.6 - 1.3 mg/dL) 0.8 Glomerular Filtr Rate (70 - 80) 76.8 Glucose (70 - 110 mg/dL) 101 Calcium (8.0 - 10.5 mg/dL) 9.4 Diagnosis, Assessment Plan Free Text DxA P Notes Free text DxA P notes: cardiac debility severe mitral valve regurgitation -post mitral v alve surgery HTN HLD CHF -- diastolic SSS, symptomatic bradycardia; CHB -s/p TPM afib -- rate control PT/OT BP- -- stable on metoprolol/capopril/norvasc monitor BP afib - rate control -- metoprolol and amiodarone no AC -- due to post surgery CHF-lasix stable HLD -- continue lipitor will continue follow patient in the rehab facili ty 10/23-- she feel tire after PT/OT -- no cp no sob -- monitor BP -- continue PT/OT 10/24 Continue strengthening in rehab. Vitals sta ble. 10/25- she feel well . no cp no sob -- continue PT/OT Electronically Signed by Nina Melgar MD on 3 at 1438 RPT #:[id number] END OF REPORT 2022-10-25 [facility] 08:33:00-00:00 [facility] Cardiology Progress Note REPORT#:[id number] REPORT STATUS: Signed DATE:10/25/22 TIME: 832 PATIENT: SWEETIE AMAYA UNIT #: [id number] ROOM/BED: [place] [address] : 47 AGE: 77 SEX: F ATTEND: Yenny Cortez MD ADM AUTHOR: Shane Jimenez NP * ALL edits or amendments must be made on the el [employer]/computer document * Subjective Chief complaint: doing good. Patient reports: No: chest pain, palpitations, shortness of breat h. Nursing reports: No: complaints. Comments: patient is on RA, NAD, sitting in chair. her is at bedside. telemetry shows APaced. Objective General VS/I O: 24 hour I O ending at 0700: 10/24 1900 10/25 0700 Intake Total 500 200 Output Total Balance 500 200 Intake, Oral 500 200 Number 1 Bowel Movements Number 0 0 Incontinent Voids Number Voids 4 1 Vital Signs: Date Time Temp Pulse Resp B/P B/P Pulse O2 O2 F low FiO2 Mean Ox Delivery Rate 10/25 1032 98.2 62 17 120/66 84.0 95 Room air 10/25 0640 98.8 62 17 145/78 100.3 94 Room air 10/25 0554 98.2 61 18 146/81 102.4 93 Room air 10/25 0016 98.2 60 16 130/69 88.9 96 Room air 10/24 1936 98.6 67 16 152/76 101.1 98 Room air 10/24 1622 98.8 67 18 147/69 95.3 98 Nasal cannula PATIENT WEIGHT: Weight (lb): 171 Weight (oz): 15.37 Weight (kg): 78.000 Medications: Active Meds + DC'd Last 24 Hrs Hydrocodone Bitart/Acetaminophen (NORCO 7.5/325 TABLET) 1 TAB ONCE ONE PO (DC) Ergocalciferol (DRISDOL) 50,000 INTL.UNITS Q7D P O (CKD) Simethicone (MYLANTA GAS) 80 MG Q4H PRN PRN PO Docusate Sodium (COLACE) 100 MG DAILY PO Methocarbamol (ROBAXIN) 500 MG Q8H PRN PRN PO Mesalamine (DELZICOL 400MG CAP DR.) 800 MG AC BK DIN PO Aspirin (ASPIRIN) 81 MG DAILY PO Ferrous Sulfate (FERROUS SULFATE) 325 MG DAILY P O Furosemide (LASIX) 20 MG DAILY PO Pantoprazole (PROTONIX) 40 MG DAILY@0600 PO Captopril (CAPOTEN) 12.5 MG Q8HR PO Amlodipine Besylate (NORVASC) 5 MG BEDTIME PO Atorvastatin Calcium (LIPITOR) 40 MG 2100 PO Doxycycline Monohydrate (DOXYCYCLINE MONOHYDRATE ) 100 MG Q12HR PO Gabapentin (NEURONTIN) 600 MG BEDTIME PO Melatonin (Melatonin) 6 MG BEDTIME PO Metoprolol Tartrate (LOPRESSOR) 50 MG Q12HR PO Amiodarone HCl (CORDARONE) 200 MG BID 9A 5P PO Acetaminophen (TYLENOL) 650 MG Q4H PRN PRN PO Bisacodyl (DULCOLAX) 10 MG DAILY PRN PRN RECTAL Ondansetron HCl (ZOFRAN ODT) 4 MG Q6H PRN PRN PO Polyethylene Glycol (MIRALAX) 17 GM BID PRN PRN PO Pacemaker: permanent Physical Exam General appearance: alert, awake, oriented, no a cute distress, pleasant, conversational, mental status normal, no respira tory distress Head/Eyes: atraumatic, PERRL ENT: moist mucosal membranes Neck: full range of motion, no JVD Cardiovascular: CV assessment: regular rate and rhythm, no murm ur Respiratory: decreased breath sounds, no distres s Abdomen: soft, non-tender, no distention Genitourinary: no flank pain, no urinary cathete r Upper extremity: UE assessment: normal temperature, no edema Lower extremity: LE assessment: normal temperature Neuro/CHARGING MANIPULATOR: normal speech Psychiatry: normal affect Results Findings/Data: Laboratory Tests 10/25 0558 Chemistry Sodium (134 - 147 mEq/L) 136 Potassium (3.4 - 5.0 mEq/L) 3.4 Chloride (100 - 108 mEq/L) 97 L Carbon Dioxide (21 - 33 mEq/l) 32 Anion Gap (0 - 20) 10 BUN (7 - 18 mg/dL) 11 Creatinine (0.6 - 1.3 mg/dL) 0.8 Glomerular Filtr Rate (70 - 80) 76.8 Glucose (70 - 110 mg/dL) 101 Calcium (8.0 - 10.5 mg/dL) 9.4 Results: labs reviewed, vital signs reviewed, vi anjel signs stable, current med profile rev'd Telemetry Interpretation: APaced. Diagnosis, Assessment Plan Plan discussed with: patient, spouse/partner, nu rse Free Text DxA P Notes Free Text DxA P Notes: Ms. Finn is 77 years old female with past m edical history hypertension, hyperlipidemia, carotid artery disease status po st right CEA who came to [facility] on October 11 for shortness of b reath. Patient was found to have a severe mitral valve r egurged, she underwent mitral valve replacement and ALAA. Due to generalized weakness she is transfe rred to rehab. - Debility. Per Rehab. OT/PT. - Severe MR s/p SMVR, PVI, and ALAA. On ASA 81mg po daily, Lasix 20mg po daily. - HTN. BP controlled. On captopril 12.5 mg p.o. every 8 hours, metopr olol titrate 50 mg p.o. twice daily, amlodipine 5 mg p.o. at bedtime - HLD. On statin. - CHB/SSS s/p PPM insertion. Normal function. 100% APaced. - H/o post op AV RVR (10/18) - back to nsr/APaced . On Metoprolol. No celeste of AC snce she had ALAA. Decrease amiodarone 200mg po daily. -Vit D deficiency. Per rehab. Vitamin D 25 level 23.6 On Vitamin D Replace potassium. CT sutures removed yesterday. MDM per Dr. Bowedn. Electronically Signed by Shane Jimenez NP on at 1416 Electronically Signed by Vivi Bowden MD on at 1652 RPT #:[id number] END OF REPORT 2022-10-25 [id number] [facility] 06:45:00-00:[address] [place] [id number] PATIENT NAME: SWEETIE AMAYA ADMIT DATE: 09/24 11/16 ACCOUNT NO: [id number] ROOM NO: .[facility] AGE: 77 REPORT TYPE: 360 - QUERY RESPONSE DOCUMENT SEX: F ADMITTING PHYSICIAN:Dory Hoff MD ATTENDING PHYSICIAN:Dory Hoff MD Provider Query QUERY TEXT: Acuity Heart Failure 360MD Query related questions should be directed to: Tracey hickey [facility] [place] Query Helpline Based on your clinical judgment, can you further specify the acuity of the CHF -- diastolic] documented in the [Hospitalist Discharge Summary 10/21/2022 (4)] that represents the clinical indicators listed below ? The patient's Clinical Indicators include: CHF -- diastolic; Hospitalist Discharge Summary 10/21/2022 (4) B-TYPE NATRIURETIC PEPTIDE (PG/ML) 78.0; laborat ory result The estimated ejection fraction is 60-64%.; ECHO CARDIOGRAM 10/22/2022 (3) progressively worsening of sob; Hospitalist Hist ory and Physical 10/12/2022 (2) Furosemide (LASIX) 20 MG DAILY PO ; Cardiology P rogress Note 10/22/2022 (3) Options provided: -- Acute -- Chronic -- Acute on Chronic -- Other - I will add my own diagnosis -- Dismiss - Not applicable / Not valid -- Dismiss - Clinically unable to determine / Un known -- Assign to another provider QUERY RESPONSE: Provider dismissed this query because it was not applicable to the patient or not a valid query. NO CHF Query created by: Ajith Mckeon on 10/24/2022 11:13 PM Electronically Signed by Praful Zhou MD on 0 10/25/22 at 0645 PATIENT NAME: SWEETIE AMAYA [id number] [facility] 15:17:00-00:00 [facility] Cardiothoracic Surgery Prog REPORT#:[id number] REPORT STATUS: Signed DATE:10/24/22 TIME: 1517 PATIENT: SWEETIE AMAYA UNIT #: [id number] ROOM/BED: [place] [address] : 47 AGE: 77 SEX: F ATTEND: Yenny Cortez MD ADM AUTHOR: Harriet Griffin Physic * ALL edits or amendments must be made on the el [employer]/computer document * Subjective Chief complaint: Patient resting comfortable, Complains of pain at the suture site Review of Systems Constitutional: Denies: fever, generalized weakness. Respiratory: Denies: productive cough (sputum), SOB. Cardiovascular: Denies: BLANCO (dyspnea on exertion), edema. GI: Denies: constipation, diarrhea. : Denies: dysuria, hematuria. Musculoskeletal: Denies: joint pain, joint swelling. Heme: Denies: bleeding, bruising. Objective General VS/I O Last Documented: Result Date Time Pulse Ox 96 10/24 1402 B/P 154/79 10/24 1402 B/P Mean 104.0 10/24 1402 Pulse 82 10/24 1402 O2 Delivery Room air 10/24 1047 Temp 98.6 10/24 1047 Resp 18 10/24 1047 24 hour I O ending at 0700: 10/24 0700 10/23 1900 Intake Total 360 Output Total Balance 360 Intake, Oral 360 Number 1 Bowel Movements Number 2 0 Incontinent Voids Number Voids 4 4 PATIENT WEIGHT: Weight (lb): 171 Weight (oz): 15.37 Weight (kg): 78.000 Physical Exam General appearance: alert, awake, oriented Wound/incision: Location: Sternum clean and dry Chest tube sutures removed Cardiovascular: regular rate rhythm Respiratory: aerating well, clear to auscultatio n Abdomen: soft, non-tender Extremities: dry, moves all Quality: Trauma Gen Surg Current Medications Current medication review: Current Medications Sig/Paulette Start time Last Medication Dose Route Stop Time Status Admin Mesalamine 800 MG AC BK DIN 10/22 1630 AC PO 11/21 1629 Aspirin 81 MG DAILY 10/22 09 AC PO 11/21 0859 Ferrous Sulfate 325 MG DAILY 10/22 09 AC PO 11/21 0859 Furosemide 20 MG DAILY 10/22 09 AC PO 11/21 0859 Pantoprazole 40 MG DAILY@0600 10/22 0600 AC PO 11/21 0559 Captopril 12.5 MG Q8HR 10/21 2200 AC PO 11/20 2158 Amlodipine Besylate 5 MG BEDTIME 10/21 2099 AC PO 11/20 2058 Atorvastatin Calcium 40 MG 2100 10/21 2099 AC PO 11/20 2058 Doxycycline 100 MG Q12HR 10/21 2100 AC Monohydrate PO 10/28 2058 Gabapentin 600 MG BEDTIME 10/21 2100 AC PO 11/20 2058 Melatonin 6 MG BEDTIME 10/21 2100 AC PO 11/20 2058 Metoprolol Tartrate 50 MG Q12HR 10/21 2100 AC PO 11/20 205 Amiodarone HCl 200 MG BID 9A 5P 10/21 1700 AC PO 11/20 1659 Acetaminophen 650 MG Q4H PRN PRN 10/21 1530 AC 10/22 PO 11/20 1529 1433 Bisacodyl 10 MG DAILY PRN PRN 10/21 1530 AC RECTAL 11/20 1529 Ondansetron HCl 4 MG Q6H PRN PRN 10/21 1530 AC PO 11/20 1529 Polyethylene Glycol 17 GM BID PRN PRN 10/21 153 0 AC PO 11/20 1529 I attest that the foregoing medication list in t he medical record is true, accurate, and complete to the best of my knowled ge. Diagnosis, Assessment Plan Hospital course to date: Patient resting comfortable, denies complaints Sternum is clean and dry no signs of infection Chest tube sutures were removed. Slight irritation from the sutures. Recommend cleaning with soap and water. There is no signs of infection Continue PT OT, out of bed Blood pressure managed as per cardiology Continues to make good recovery at 1522 at 0946 RPT #:[id number] END OF REPORT 2022-10-24 [facility] 14:51:00-00:00 [facility] Rehab Progress Note REPORT#:[id number] REPORT STATUS: Signed DATE:10/24/22 TIME: 1451 PATIENT: SWEETIE AMAYA UNIT #: [id number] ROOM/BED: [place] [address] : 47 AGE: 77 SEX: F ATTEND: Yenny Cortez MD ADM AUTHOR: Yenny Crotez MD * ALL edits or amendments must be made on the [employer]/computer document * Subjective Chief complaint: Seen working with therapy. She is doing very wel l. She is having almost no pain from the surgery or from the pacemaker. Bot h incisions look excellent. Objective General VS: Vital Signs: Date Time Temp Pulse Resp B/P B/P Pulse O2 O2 F low FiO2 Mean Ox Delivery Rate 10/24 1402 82 154/79 104.0 96 10/24 1047 98.6 68 18 117/67 83.8 94 Room air 10/23 2356 96.8 59 18 130/72 91.2 96 Room air 10/23 1819 98.2 62 18 145/71 95.5 97 Room air PATIENT WEIGHT: Weight (lb): 171 Weight (oz): 15.37 Weight (kg): 78.000 Medications: Active Meds + DC'd Last 24 Hrs Simethicone (MYLANTA GAS) 80 MG Q4H PRN PRN PO Docusate Sodium (COLACE) 100 MG DAILY PO Methocarbamol (ROBAXIN) 500 MG Q8H PRN PRN PO Mesalamine (DELZICOL 400MG CAP DR.) 800 MG AC BK DIN PO Aspirin (ASPIRIN) 81 MG DAILY PO Ferrous Sulfate (FERROUS SULFATE) 325 MG DAILY P O Furosemide (LASIX) 20 MG DAILY PO Pantoprazole (PROTONIX) 40 MG DAILY@0600 PO Captopril (CAPOTEN) 12.5 MG Q8HR PO Amlodipine Besylate (NORVASC) 5 MG BEDTIME PO Atorvastatin Calcium (LIPITOR) 40 MG 2100 PO Doxycycline Monohydrate (DOXYCYCLINE MONOHYDRATE ) 100 MG Q12HR PO Gabapentin (NEURONTIN) 600 MG BEDTIME PO Melatonin (Melatonin) 6 MG BEDTIME PO Metoprolol Tartrate (LOPRESSOR) 50 MG Q12HR PO Amiodarone HCl (CORDARONE) 200 MG BID 9A 5P PO Acetaminophen (TYLENOL) 650 MG Q4H PRN PRN PO Bisacodyl (DULCOLAX) 10 MG DAILY PRN PRN RECTAL Ondansetron HCl (ZOFRAN ODT) 4 MG Q6H PRN PRN PO Polyethylene Glycol (MIRALAX) 17 GM BID PRN PRN PO Functional Progress Functional progress: The data set between the solid lines has been im ported from multidisciplinary team documentation. __ FUNCTIONAL ACTIVITY ADMISSION STATUS INTERIM ST ATUS Toilet hygiene Setup or cleanup (5) Supervision /touch (4) Toilet transfer Setup or cleanup (5) Supervisio n/touch (4) Eating Setup or cleanup (5) Independent (6) Shower/bathing Supervision/touch (4) Setup or c leanup (5) Dressing upper body Partial/moderate (3) Parti al/moderate (3) Dressing lower body Supervision/touch (4) Setup or cleanup (5) Transfer to/from bed to chair Supervision/touch (4) Wheel 50ft w/ 2 turns Supervision/touch (4) Wheel 150 ft Partial/moderate (3) Walk 50 ft w/ 2 turns Supervision/touch (4) Walk 150 ft Supervision/touch (4) Four steps Supervision/touch (4) __ Transfers: BED<>W/C- SBA SHOWER- SBA Activities of daily living: FULL SHOWER- SET-UP UBD- MOD A, FOR SURGICAL BRA ONLY,(PT DOES NOT WANT TO WEAR) LBD- SET-UP FW- SET-UP Cognition: FOLLOWS COMPLEX COMMANDS, FOLLOWS ST ERNAL AND PACEMAKER PRECAUTIONS. OT daily note comment: PT AGREEABLE TO TX, REPO RTED WANTING A SHOWER D/T NORMALLY TAKING UP TO 2 SHOWERS A DAY. PT ALSO DOES NOT WANT TO WEAR THE SURGICAL BRA, D/T IT CUTITNG IN UNDER ARM AND IS RUBBING HER SUTURE, PT IS WEARING BRA, REPORTED TO RN. PT COMPLETED 90 MINS OF SKILLED O.T. WORKING ON ADLS, XFERS , AND THERA EX FOR INCREASEDSTRENGTH AND ENDRUANCE FOR IMPROVE D FUNCTIONAL INDEPENDECE WITH ADLS. PT WAS EDUCATED IN FALL PREVENTION, STERNAL/PACEMAKER PRECAUTIONS, AND ENERGY CONSERVATION. PT TOLERATED TX, WORKING TOWARDS GOALS, REST GLOR[place] GIVEN NEEDED. Functional Assessment/Exam Extremities: NO EDEMA Physical Exam General appearance: alert, awake, oriented HEENT: anicteric, mucosal membranes moist, scler a clear Neck: supple, no JVD Cardiovascular: regular rate rhythm, S1/S2 Respiratory: aerating well, clear bilaterally Abdomen: bowel sounds present, non-distended, so ft, non-tender Skin: incision (sternal intact, PPM intact ), dr copeland, intact Musculoskeletal - general: Musculoskeletal - general: joints normal, range of motion normal, no atrophy Neuro/CHARGING MANIPULATOR: alert, oriented X 3, normal speech, n o motor deficits, no sensory deficits Diagnosis, Assessment Plan Problem List/A P: 1. Atrial fibrillation 2. Sick sinus syndrome 3. Mitral valve regurgitation 4. CKD (chronic kidney disease), stage III 5. HTN (hypertension) 6. S/P placement of cardiac pacemaker Free Text A P: Severe mitral regurgitation status post MVR on Acute pulmonary insufficiency following major ca rdiothoracic surgery Cardiogenic shock Acute blood loss anemia Metabolic acidosis Hypokalemia Sick Sinus Syndrome Hx Asthma GERD HTN P A FIB Plan: Enter into comprehensive rehab with PT/O T for 3 hrs per day 5-6 days per week. She will remain with sternal precautions as well as pacemaker precaution to the left upper extremity. Continue to work on weanin g O2 as tolerated. Therapy to work on OOB daily to the chair, transfers, progr essive gait, adls and etc. IM consulted and [facility] to assist with medical management. Monitor vitals and continue telemetry for now. She does not need AC due to YUE. Railroad Firer to assist with safe and appropriate DC plan madeleine. Continue current medication including Protonix for GERD and Gabapentin for her RLS. Documentation of Current Medications in the [facility] Record : I attest that the foregoing medication list in t medical record is true, accurate, and complete to the best of my knowled ge. Advanced Care Plan for patients age > 65 *Advanced Care Plan Discussed: [X ]Yes who, living will, POA, and code status, is MPOA, FUll Code [ ] No explain why] *Surrogate Decision Maker: [ ]Yes who [ ] No explain why 10/24: All incisions look good. She is do ing well from a functional standpoint. She is vitamin D deficient will supplement. She has been hyponatremic we will follow-up on this. Team conference the day after tomorrow. Continue rehab. Rehab attestation: Face to face exam completed. Treatment plan disc ussed with patient. Meets continued stay criteria. Agree with interdiscipl inary treatment plan. at 1500 RPT #:[id number] END OF REPORT 2022-10-24 [facility] 14:02:00-00:00 [facility]) Rehab Indiv Overall POC REPORT#:[id number] REPORT STATUS: Signed DATE:10/24/22 TIME: 1402 PATIENT: SWEETIE AMAYA UNIT #: [id number] [place]ED: [facility] : [place] AGE: 77 SEX: F ATTEND: Yenny Cortez MD ADM AUTHOR: Yenny Cortez MD * ALL edits or amendments must be made on the [employer]/computer document * Individualized Overall POC HPI Impairment group: cardiac disorders NOTE Document ONLY ONE Impairment Group Etiologic diagnosis: Cardiac Myopathy Medical Expected Course Expected DC destination: Expected DC destination: Home Problem List/A P: 1. Atrial fibrillation 2. Sick sinus syndrome 3. Mitral valve regurgitation 4. CKD (chronic kidney disease), stage III 5. HTN (hypertension) 6. S/P placement of cardiac pacemaker Medical prognosis: good Medical prognosis details: family/caregiver supp ort, endurance, D/C plan, financial resources Expected course of Tx: COMPREHENSIVE REHAB. Functional Expected Course Functional expected course: The data set between the solid lines has been im ported from multidisciplinary team documentation: __ ANTICIPATED SERVICES IN ACUTE INPATIENT REHAB: DISCIPLINE Physical Therapy Occupational Therapy Speech Therapy INTENSITY (minutes/day) 90 90 FREQUENCY (days/week) 5 5 DURATION (# of days) 14 14 EXPECTED FUNCTIONAL OUTCOMES: CARE Rolling left and Independent (6) right discharge goal: CARE Sitting to Independent (6) lying discharge goal: CARE Lying to sitting Independent (6) on side of bed discharge goal: CARE Sitting to Independent (6) standing discharge goal: CARE Chair/bed to Independent (6) chair transfer discharge goal: CARE Car transfer Independent (6) discharge goal: CARE Walking 10 Independent (6) feet discharge goal: CARE Walking 50 feet Independent (6) with two turns discharge goal: CARE Walking 150 Independent (6) feet discharge goal: CARE Walking 10 feet on Independent (6) uneven surface discharge goal: CARE 1 step (curb) Independent (6) discharge goal: CARE 4 steps Independent (6) discharge goal: CARE 12 steps Partial/moderate asst (3) discharge goal: CARE Picking up Independent (6) object discharge goal: CARE [place] 50 feet Not applicable with two turns discharge goal: CARE [place] 150 Not applicable feet discharge goal: CARE Toileting hygiene Independent (6) discharge goal: CARE Transfer on/off toilet Independent (6) or commode discharge goal: CARE Eating discharge goal: Independent (6) CARE Oral hygiene Independent (6) discharge goal: CARE Shower/bathe Independent (6) self discharge goal: CARE Upper body Independent (6) dressing discharge goal: CARE Lower body Independent (6) dressing discharge goal: CARE Putting on/taking Independent (6) off footwear discharge goal: Bowel function goal: PATIENT BE ABLE TO GO INDEP ENDENTLY TO BAHTROOM AND BACK AND COMPLETE HYGINE. Bladder function goal: PATIENT BE ABLE TO GO TO BATHROOM INDEPENDENTLY TO BATHROOM AND BACK AND COMPLETE HYGINE INDEPENDEN TLY. _ ELOS Attestation: Based upon the review of clinical staff recommendations of frequency, duration and intensity and individual assessment of this patient, I estimate the following: PT/OT 3 HOURS/DAY X 5-6DAYS/WEEK X 12 DAYS Estimated length of stay: 10-12 days MD Review/Recommendation Attestation: Based upon my physical evaluation of the patient and input from the interdisciplinary team members I have de veloped this interdisciplinary overall plan of care and determined the admission to the IRF is reasonable and necessary.The IOPOC will be updated weekly and m odified under my direction. Patient can be expected to actively participate in, and benefit from, an intensive rehab therapy prog angelito whose intensity is not provided in lower levels of care. Complex acute rehab needs: Custom therapy tx albert n, Mgt of complex Co-morb, Multiple consulting MDs, Caregiver has limitatio ns, Med adjustment/mgmt., New medical diagnosis at 1403 RPT #:[id number] END OF REPORT 2022-10-24 [facility] 09:58:00-00:00 [facility] ([facility]) Hospitalist Progress Note REPORT#:[id number] REPORT STATUS: Signed DATE:10/24/22 TIME: 957 PATIENT: SWEETIE AMAYA UNIT #: [id number] ROOM/BED: [place] [address] : 47 AGE: 77 SEX: F ATTEND: Yenny Cortez MD ADM AUTHOR: Ciera Hodgson APRN * ALL edits or amendments must be made on the [employer]/computer document * Subjective Chief complaint: Seen in therapy. Feels tired after therapy. Review of Systems Constitutional: Reports: fatigue, generalized weakness. Denies: chills, fever. Allergy/Immun: Denies: itching, sneezing. Respiratory: Denies: SOB, wheezing. Cardiovascular: Denies: chest pain, palpitations. GI: Denies: abdominal pain, diarrhea. All systems rev neg: except as noted Objective General VS/I O: Vital Signs: Date Time Temp Pulse Resp B/P B/P Pulse O2 O2 F low FiO2 Mean Ox Delivery Rate 10/23 2356 36.0 59 18 130/72 91.2 96 Room air 10/23 1819 36.8 62 18 145/71 95.5 97 Room air 10/23 1447 36.8 60 16 116/72 86.5 96 10/23 1305 37.0 63 17 152/70 97.1 96 24 hour I O ending at 0700: 10/24 0700 10/23 1900 Intake Total 360 Output Total Balance 360 Intake, Oral 360 Number 1 Bowel Movements Number 2 0 Incontinent Voids Number Voids 4 4 PATIENT WEIGHT: Weight (lb): 171 Weight (oz): 15.37 Weight (kg): 78.000 Medications: Active Meds + DC'd Last 24 Hrs Mesalamine (DELZICOL 400MG CAP ) 800 MG AC BK DIN PO Aspirin (ASPIRIN) 81 MG DAILY PO Ferrous Sulfate (FERROUS SULFATE) 325 MG DAILY P O Furosemide (LASIX) 20 MG DAILY PO Pantoprazole (PROTONIX) 40 MG DAILY@0600 PO Captopril (CAPOTEN) 12.5 MG Q8HR PO Amlodipine Besylate (NORVASC) 5 MG BEDTIME PO Atorvastatin Calcium (LIPITOR) 40 MG 2100 PO Doxycycline Monohydrate (DOXYCYCLINE MONOHYDRATE ) 100 MG Q12HR PO Gabapentin (NEURONTIN) 600 MG BEDTIME PO Melatonin (Melatonin) 6 MG BEDTIME PO Metoprolol Tartrate (LOPRESSOR) 50 MG Q12HR PO Amiodarone HCl (CORDARONE) 200 MG BID 9A 5P PO Acetaminophen (TYLENOL) 650 MG Q4H PRN PRN PO Bisacodyl (DULCOLAX) 10 MG DAILY PRN PRN RECTAL Ondansetron HCl (ZOFRAN ODT) 4 MG Q6H PRN PRN PO Polyethylene Glycol (MIRALAX) 17 GM BID PRN PRN PO Physical Exam General appearance: alert, awake, oriented, no a cute distress, mental status normal, no respiratory distress Head/Eyes: atraumatic, normal conjunctiva/sclera , normal eyelids/periorb. Neck: non-tender Cardiovascular: normal heart sounds, regular rat e rhythm Respiratory: aerating well, clear to auscultatio n Abdomen: non-tender, normal bowel sounds, soft, no distention Extremities: moves all, no calf tenderness, no e vasiliy Neuro/CHARGING MANIPULATOR: alert, oriented X 3, CNII-XII intact, normal speech, no motor deficits, no sensory deficits Skin: dry, intact Diagnosis, Assessment Plan Free Text DxA P Notes Free text DxA P notes: cardiac debility severe mitral valve regurgitation -post mitral v alve surgery HTN HLD CHF -- diastolic SSS, symptomatic bradycardia; CHB -s/p TPM afib -- rate control PT/OT BP- -- stable on metoprolol/capopril/norvasc monitor BP afib - rate control -- metoprolol and amiodarone no AC -- due to post surgery CHF-lasix stable HLD -- continue lipitor will continue follow patient in the rehab facili ty 10/23-- she feel tire after PT/OT -- no cp no sob -- monitor BP -- continue PT/OT 10/24 Continue strengthening in rehab. Vitals sta ble. Electronically Signed by Ciera Hodgson APRN on at 1103 Electronically Signed by Dory Hoff MD on 0 10/24/22 at 1414 [facility] #:[id number] END OF REPORT 2022-10-24 [facility] 09:14:00-00:00 [facility] ([facility]) Cardiology Progress Note REPORT#:[id number] REPORT STATUS: Signed DATE:10/24/22 TIME: 913 PATIENT: SWEETIE AMAYA UNIT #: [id number] ROOM/BED: [place] [address] : 47 AGE: 77 SEX: F ATTEND: Yenny Cortez MD ADM AUTHOR: Shane Jimenez NP * ALL edits or amendments must be made on the [employer]/computer document * Subjective Chief complaint: questions on sutures and bra. Patient reports: No: confused, nausea, palpitations, shortness of breath. Nursing reports: No: complaints. Comments: Patient is on RA, had a shower this am, sitting in wheelchair w/o distress. Telemetry showed 100%APaced. Objective General VS/I O: 24 hour I O ending at 0700: 10/23 1900 10/24 0700 Intake Total 360 Output Total Balance 360 Intake, Oral 360 Number 1 Bowel Movements Number 0 2 Incontinent Voids Number Voids 4 4 Vital Signs: Date Time Temp Pulse Resp B/P B/P Pulse O2 O2 F low FiO2 Mean Ox Delivery Rate 10/24 1047 98.6 68 18 117/67 83.8 94 Room air 10/23 2356 96.8 59 18 130/72 91.2 96 Room air 10/23 1819 98.2 62 18 145/71 95.5 97 Room air 10/23 1447 98.2 60 16 116/72 86.5 96 PATIENT WEIGHT: Weight (lb): 171 Weight (oz): 15.37 Weight (kg): 78.000 Medications: Active Meds + DC'd Last 24 Hrs Mesalamine (DELZICOL 400MG CAP ) 800 MG AC BK DIN PO Aspirin (ASPIRIN) 81 MG DAILY PO Ferrous Sulfate (FERROUS SULFATE) 325 MG DAILY P O Furosemide (LASIX) 20 MG DAILY PO Pantoprazole (PROTONIX) 40 MG DAILY@0600 PO Captopril (CAPOTEN) 12.5 MG Q8HR PO Amlodipine Besylate (NORVASC) 5 MG BEDTIME PO Atorvastatin Calcium (LIPITOR) 40 MG 2100 PO Doxycycline Monohydrate (DOXYCYCLINE MONOHYDRATE ) 100 MG Q12HR PO Gabapentin (NEURONTIN) 600 MG BEDTIME PO Melatonin (Melatonin) 6 MG BEDTIME PO Metoprolol Tartrate (LOPRESSOR) 50 MG Q12HR PO Amiodarone HCl (CORDARONE) 200 MG BID 9A 5P PO Acetaminophen (TYLENOL) 650 MG Q4H PRN PRN PO Bisacodyl (DULCOLAX) 10 MG DAILY PRN PRN RECTAL Ondansetron HCl (ZOFRAN ODT) 4 MG Q6H PRN PRN PO Polyethylene Glycol (MIRALAX) 17 GM BID PRN PRN PO Pacemaker: permanent Physical Exam General appearance: alert, awake, orient ed, no acute distress, conversational, mental status normal, no respiratory distress Head/Eyes: atraumatic, PERRL ENT: moist mucosal membranes Neck: full range of motion, no JVD Cardiovascular: CV assessment: regular rate and rhythm, no murm ur Respiratory: decreased breath sounds, no distres s Abdomen: soft, non-tender, no distention Genitourinary: no flank pain, no urinary cathete r Upper extremity: UE assessment: normal temperature, no edema Lower extremity: LE assessment: normal temperature Neuro/CHARGING MANIPULATOR: normal speech Psychiatry: normal affect Results Results: no new labs, vital signs reviewed, ivana l signs stable, rhythm personally rev'd, current med profile rev'd Telemetry Interpretation: APaced. Diagnosis, Assessment Plan Plan discussed with: patient, nurse Free Text DxA P Notes Free Text DxA P Notes: Ms. sinclair is 77 years old female with past me dical history hypertension, hyperlipidemia, carotid artery disease status po st right CEA who came to [facility] on October 11 for shortness of b reath. Patient was found to have a severe mitral valve r egurged, she underwent mitral valve replacement and ALAA. Due to generalized weakness she is transfe rred to rehab. - Debility. Per Rehab. OT/PT. - Severe MR s/p SMVR, PVI, and ALAA. On ASA 81mg po daily, Lasix 20mg po daily. - HTN. BP controlled. On captopril 12.5 mg p.o. every 8 hours, metopr olol titrate 50 mg p.o. twice daily, amlodipine 5 mg p.o. at bedtime - HLD. On statin. - CHB/SSS s/p PPM insertion. Normal function. 100% APaced. - H/o post op AV RVR (10/18) - back to nsr. On amiodarone, Metoprolol. No celeste of AC snce she had ALAA. -Vit D deficiency. Per rehab. Vitamin D 25 level 23.6 Discussed w/ Cathy r/t chadd hines - plan to remove later when rounding per CTS. MDM per Dr. Bowden. Electronically Signed by Shane Jimenez NP on at 1337 RPT #:[id number] END OF REPORT 2022-10-23 [facility] 13:53:00-00:00 [facility] Hospitalist Progress Note REPORT#:[id number] REPORT STATUS: Signed DATE:10/23/22 TIME: 1353 PATIENT: SWEETIE AMAYA UNIT #: [id number] ROOM/BED: [place] [address] : 47 AGE: 77 SEX: F ATTEND: Yenny Cortez MD ADM AUTHOR: Nina Melgar MD * ALL edits or amendments must be made on the el [employer]/computer document * Subjective Chief complaint: she feel tire after PT/OT. no sob Review of Systems Constitutional: Reports: generalized weakness. All systems rev neg: except as noted Objective General VS/I O: Vital Signs: Date Time Temp Pulse Resp B/P B/P Pulse O2 O2 F low FiO2 Mean Ox Delivery Rate 10/23 1305 37.0 63 17 152/70 97.1 96 10/23 0701 37.2 60 16 128/69 88.4 92 10/22 2338 37.1 65 14 127/57 79.9 91 10/22 2010 37.1 64 14 127/61 83.2 95 10/22 1547 36.8 63 17 145/74 97.7 95 Room air 24 hour I O ending at 0700: 10/23 0700 10/22 1900 Intake Total 120 Output Total Balance 120 Intake, Oral 120 Patient 78 kg Weight Weight Bed scale Measurement Method PATIENT WEIGHT: Weight (lb): 171 Weight (oz): 15.37 Weight (kg): 78.000 Medications: Active Meds + DC'd Last 24 Hrs Mesalamine (DELZICOL 400MG CAP DR.) 800 MG AC BK DIN PO Aspirin (ASPIRIN) 81 MG DAILY PO Ferrous Sulfate (FERROUS SULFATE) 325 MG DAILY P O Furosemide (LASIX) 20 MG DAILY PO Pantoprazole (PROTONIX) 40 MG DAILY@0600 PO Captopril (CAPOTEN) 12.5 MG Q8HR PO Amlodipine Besylate (NORVASC) 5 MG BEDTIME PO Atorvastatin Calcium (LIPITOR) 40 MG 2100 PO Doxycycline Monohydrate (DOXYCYCLINE MONOHYDRATE ) 100 MG Q12HR PO Gabapentin (NEURONTIN) 600 MG BEDTIME PO Melatonin (Melatonin) 6 MG BEDTIME PO Metoprolol Tartrate (LOPRESSOR) 50 MG Q12HR PO Amiodarone HCl (CORDARONE) 200 MG BID 9A 5P PO Acetaminophen (TYLENOL) 650 MG Q4H PRN PRN PO Bisacodyl (DULCOLAX) 10 MG DAILY PRN PRN RECTAL Ondansetron HCl (ZOFRAN ODT) 4 MG Q6H PRN PRN PO Polyethylene Glycol (MIRALAX) 17 GM BID PRN PRN PO Physical Exam General appearance: alert, awake, oriented Head/Eyes: atraumatic, normal conjunctiva/sclera , normal eyelids/periorb. Neck: non-tender Cardiovascular: normal heart sounds, regular rat e rhythm Respiratory: aerating well, clear to auscultatio n Abdomen: non-tender, normal bowel sounds, soft, no distention Extremities: moves all, no calf tenderness, no e vasiliy Neuro/CHARGING MANIPULATOR: alert, oriented X 3, CNII-XII intact, normal speech, no motor deficits, no sensory deficits Skin: dry, intact Results Findings/Data: Laboratory Tests 10/23 10/23 0630 0630 Chemistry Vitamin B12 (193 - 986 pg/mL) 1304 H Vitamin D 25-Hydroxy (30 - 100 ng/mL) 23.6 L Folate (3.1 - 17.5 ng/mL) 20.4 H TSH (0.42 - 5.47) 4.33 Diagnosis, Assessment Plan Free Text DxA P Notes Free text DxA P notes: cardiac debility severe mitral valve regurgitation -post mitral v alve surgery HTN HLD CHF -- diastolic SSS, symptomatic bradycardia; CHB -s/p TPM afib -- rate control PT/OT BP- -- stable on metoprolol/capopril/norvasc monitor BP afib - rate control -- metoprolol and amiodarone no AC -- due to post surgery CHF-lasix stable HLD -- continue lipitor will continue follow patient in the rehab facili ty 10/23-- she feel tire after PT/OT -- no cp no sob -- monitor BP -- continue PT/OT Quality: Gen Med Crit Care Current Medications Current medication review: Current Medications Sig/Paulette Start time Last Medication Dose Route Stop Time Status Admin Mesalamine 800 MG AC BK DIN 10/22 1630 AC PO 11/21 1629 Aspirin 81 MG DAILY 10/22 09 AC PO 11/21 0859 Ferrous Sulfate 325 MG DAILY 10/22 0900 AC PO 11/21 0859 Furosemide 20 MG DAILY 10/22 0900 AC PO 11/21 0859 Pantoprazole 40 MG DAILY@0600 10/22 0600 AC PO 11/21 0559 Captopril 12.5 MG Q8HR 10/21 2200 AC PO 11/20 2158 Amlodipine Besylate 5 MG BEDTIME 10/21 2100 AC PO 11/20 2058 Atorvastatin Calcium 40 MG 2100 10/21 2100 AC PO 11/20 205 Doxycycline 100 MG Q12HR 10/21 2100 AC Monohydrate PO 10/28 2058 Gabapentin 600 MG BEDTIME 10/21 2100 AC PO 11/20 205 Melatonin 6 MG BEDTIME 10/21 2100 AC PO 11/20 205 Metoprolol Tartrate 50 MG Q12HR 10/21 2100 AC PO 11/20 205 Amiodarone HCl 200 MG BID 9A 5P 10/21 1700 AC PO 11/20 1659 Acetaminophen 650 MG Q4H PRN PRN 10/21 1530 AC 10/22 PO 11/20 1529 1433 Bisacodyl 10 MG DAILY PRN PRN 10/21 1530 AC RECTAL 11/20 1529 Ondansetron HCl 4 MG Q6H PRN PRN 10/21 1530 AC PO 11/20 1529 Polyethylene Glycol 17 GM BID PRN PRN 10/21 153 0 AC PO 11/20 1529 I attest that the foregoing medication list in [facility] medical record is true, accurate, and complete to the best of my knowled ge. Electronically Signed by Nina Melgar MD on 3 at 1356 RPT #:[id number] END OF REPORT 2022-10-23 [facility] 08:18:00-00:00 [facility] ([facility]) Rehab History Physical REPORT#:[id number] REPORT STATUS: Signed DATE:10/23/22 TIME: 817 PATIENT: SWEETIE AMAYA UNIT #: [id number] ROOM/BED: [place] [address] : 47 AGE: 77 SEX: F ATTEND: Yenny Cortez MD ADM AUTHOR: Cinthya Burger PA-C * ALL edits or amendments must be made on the [employer]/computer document * See Addendum HPI HPI Chief complaint: S/P MVR, PPM PCP: PCP: Yenny Boone MD Referring physician: Referring physician: DR. HOFF HPI: 77-year-old female with past medical history sig nificant for hypertension, dyslipidemia, paroxysmal atrial fibrilla tion, carotid stenosis status post CEA in 2020 was evaluated for shortness of b reath and dyspnea on exertion over the past several months. She denies any symptoms at rest. No angina symptoms were reported. Patient reported lower extremity weakn ess along with shortness of breath. She underwent echocardiogram in the outp atient setting that showed EF of 60 to 65% with a dilated left atrium, moderat e to severe mitral regurgitation. 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 There was possibility of chordae tendonee rupture evidence of trace tricuspid regurgitation with ascending aorta measuring 3.7 cm. Patient underwent left heart catheterization that showed no significant coronary artery disease. Patient underwent CT surgery evaluation for dre re mitral valve regurgitation for possible mitral valve replacement.On 10/12 e was brought to the OR and underwent Mitral Valve Replaacement, PUl monary Vein Isolation and Amutation of the left atrial appendage on 10/12/[address] Yuri mcdonald. Postoperatively, the patient is pacer dependent and has junctional br adycardia of pacer, off amiodarone and on metoprolol. A consult was requ ested for possible permanent pacemaker with EP. She is no w s/p PPM placement. Post op PPM did go into A fib, but was placed temporarily on Amio drip. She is now transitioned to PO Amiodarone. Labs stable. Rep eat echo performed and stable. Dopplers negative for DVT. Impairment group: cardiac disorders NOTE Document ONLY ONE Impairment Group Etiologic diagnosis: Cardiac Myopathy History Preadmit diagnostic/labs: Date: 10/19/22 10/18/22 WBC: 14.4 12.4 HGB: 8.1 7.9 HCT: 24.5 23.0 Ca: 8.7 9.4 Na: 129 130 K+: 4.0 4.0 Glu: 125 118 M.95 1.81 BUN: 8 12 Creat: 0.7 0.7 Tot protein: 5.5 Alb: 2.70 PTT: PT: INR: PLT: 269 241 Additional labs: Cultures: 10/11/22 MRSA NEGATIVE MSSA NEGATIVE Imagin10/19/22 CXR IMPRESSION: No significant interval change. 10/18/22 CXR IMPRESSION: Interval placem ent of new left cardiac device is present. 10/17/22 CXR Worsened signs of volume overload/ pulmonary edema with trace bilateral pleural eff usions. VENOUS DOPPLER IMPRESSION: No deep venous thrombosis is seen in the visualized left upper extremity. 10/11/22 CAROTI D DOPPLER IMPRESSION: Plaque along the bilateral common ca rotid arteries and internal carotid arteries. No significant stenos is of the proximal internal carotid arteries by NASCET criteria CHEST CT IMPRESSION: 1. Mild bibasilar fibrotic changes. 2. Mild right middle lobe fibrosis and bronchiectasis. 3. Scattered g round-glass opacities with reticulonodular changes may represent pneumoniti s. Follow-up to ensure resolution. 4. Pulmonary nodules. Follow-up per Fleischner society guidelines:For patients at low risk (minimal or absent history of smoking and of other known risk factors), no routine fol low-up is indicated. For patients at high risk (history of smoking or of other known risk factors), consider optional CT Chest at 12 months. (Refere nce: Ne) References: Ne Carrillo et al. Guidelines for Ma nagement of Incidental Pulmonary Nodules Detected on CT Images: From e Fleischner Society 2017. Radiology. 2017;284(1):228-243. 10/10/22 CXR IMP RESSION: Mild enlarged cardiac silhouette. Other supporting diagnostics: Past medical history: Reports: Hypertension, Dyslipidemia. Denies: Ailyn betes mellitus, Anticoagulant therapy, Atrial flutter, Ischemic stroke, Prior AL, Venous thromboembolism. Past surgical history: Reports: Carotid endarterectomy (RIGHT ), Knee p rocedure. Alcohol use: Denies EtOH use Drug use: Denies recreational drugs Smoking status for patients 13 years old or olde r: Never Smoker Additional social history: Pt lives at home with her . She was IND a nd actove as PLOF. She does not use DME as PLOF. She states that she h as a RW from previous [facility]KA Medications: Home Medications: MESALAMINE ER (APRISO) 1.5 GM PO DAILY OMEPRAZOLE ER (PriLOSEC) 40 MG PO DAILY ASPIRIN 81 MG PO DAILY GABAPENTIN (NEURONTIN) 600 MG PO BEDTIME DOXYCYCLINE MONOHYDRATE (MONODOX) 100 MG PO Q12H R FERROUS SULFATE (FEOSOL) 325 MG PO DAILY AMIODARONE (PACERONE) 200 MG PO BID 9A 5P ATORVASTATIN (LIPITOR) 40 MG PO 2100 METOPROLOL TARTRATE (LOPRESSOR) 50 MG PO Q12HR amLODIPine (NORVASC) 5 MG PO BEDTIME CAPTOPRIL (CAPOTEN) 6.25 MG PO Q8HR Allergies: Coded Allergies: Penicillins (Intermediate, BREATHING ISSUES- OK W KEFLEX 10/05/22) SPECIFIC Allergy: PENICILLINS ROS ROS ROS comments: 14 point ROS reviewed and negative. She denies C P, SOB , abd pain, nausea, vomiting. No weakness on one side vs the other. Still a little swelling to the LUE Objective Physical Exam VS: Last Documented: Result Date Time Pulse Ox 92 10/23 07 B/P 128/69 10/23 07 B/P Mean 88.4 10/23 07 Temp 99.0 10/23 07 Pulse 60 10/23 0701 Resp 16 10/23 07 O2 Delivery Room air 10/22 8457 PATIENT WEIGHT: Weight (lb): 171 Weight (oz): 15.37 Weight (kg): 78.000 General appearance: alert, awake, oriented HEENT: anicteric, mucosal membranes moist, scler a clear Neck: supple, no JVD Cardiovascular: regular rate rhythm, S1/S2 Respiratory: aerating well, clear bilaterally Abdomen: bowel sounds present, non-distended, so ft, non-tender Skin: incision (sternal intact, PPM intact ), dr copeland, intact Musculoskeletal - general: Musculoskeletal - general: joints normal, range of motion normal, no atrophy Neuro/CHARGING MANIPULATOR: alert, oriented X 3, normal speech, n o motor deficits, no sensory deficits Results Findings/Data: Microbiology: 10/23 629 NASAL: MRSA DNA Surveillance Screen - RECD Diagnosis, Assessment Plan Diagnosis, Assessment Plan Problem List/A P: 1. HTN (hypertension) 2. Asthma 3. GERD (gastroesophageal reflux disease) 4. CKD (chronic kidney disease), stage III 5. Mitral valve regurgitation 6. Sick sinus syndrome 7. Atrial fibrillation 8. S/P CABG (coronary artery bypass graft) 9. S/P placement of cardiac pacemaker Free Text A P: Severe mitral regurgitation status post MVR on Acute pulmonary insufficiency following major ca rdiothoracic surgery Cardiogenic shock Acute blood loss anemia Metabolic acidosis Hypokalemia Sick Sinus Syndrome Hx Asthma GERD HTN P A FIB Plan: Enter into comprehensive rehab with PT/O T for 3 hrs per day 5-6 days per week. She will remain with sternal precautions as well as pacemaker precaution to the left upper extremity. Continue to work on weanin g O2 as tolerated. Therapy to work on OOB daily to the chair, transfers, progr essive gait, adls and etc. IM consulted and CVS to assist with medical management. Monitor vitals and continue telemetry for now. She does not need AC due to YUE. Railroad Firer to assist with safe and appropriate DC plan madeleine. Continue current medication including Protonix for GERD and Gabapentin for her RLS. Documentation of Current Medications in the [facility] Record : I attest that the foregoing medication list in [facility] medical record is true, accurate, and complete to the best of my knowled ge. Advanced Care Plan for patients age > 65 *Advanced Care Plan Discussed: [X ]Yes who, living will, POA, and code status, is MPOA, FUll Code [ ] No explain why] *Surrogate Decision Maker: [ ]Yes who [ ] No explain why Review of comorbidities: HTN, Mitral Regurgitation, SSS, GERD, Asthma, CK D stage 3 Compare to PAS: No change Estimated length of stay: 10-12 days Acute Rehab Attestation NOTE Attestation is for MD only Complex acute rehab needs: Custom therapy tx albert n, Mgt of complex Co-morb, Multiple consulting MDs, Caregiver has limitatio ns, Med adjustment/mgmt., New medical diagnosis Electronically Signed by Cinthya Burger PA-C on at 1457 Addendum 1: 10/23/22 1502 by Yenny Cortez MD Based upon my evaluation and review of t he supporting assessment documentation and consultation with the pr eadmission handle machine operator, I have determined, prior to admitting this patient, that there is r easonable expectation that at the time of admission to the IRF, the patient's medical management and rehabilitation needs require an inpatient stay and close physician involvement. Patient can be expected to actively participate in, and benefit from, and intensive rehab therapy prog angelito whose intensity is not provided in lower levels of care. at 1503 RPT #:[id number] END OF REPORT 2022-10-23 [facility] 06:47:00-00:00 [facility] ([facility]) Cardiology Consultation REPORT#:[id number] REPORT STATUS: Signed DATE:10/23/22 TIME: 06 PATIENT: SWEETIE AMAYA UNIT #: [id number] ROOM[place]BED: [facility] : 47 AGE: 77 SEX: F ATTEND: Yenny Cortez MD ADM AUTHOR: Praful Zhou MD * ALL edits or amendments must be made on the el [employer]/computer document * History - Adult longitudinal Allergies: Coded Allergies: Penicillins (Intermediate, BREATHING ISSUES- OK W KEFLEX 10/05/22) SPECIFIC Allergy: PENICILLINS Diagnosis, Assessment Plan Free Text DxA P Notes Free Text DxA P Notes: CARDIOLOGY CONSULT DICTATED Electronically Signed by Praful Zhou MD on at 0647 [facility] #:[id number] END OF REPORT 2022-10-23 [id number] [facility] 06:35:00-00:[address] [place] [id number] PATIENT NAME: SWEETIE AMAYA ADMIT DATE: 10/22 ACCOUNT NO: [id number] ROOM NO: [facility] AGE: 77 REPORT TYPE: CONSULTATION REPORT SEX: F ADMITTING PHYSICIAN:Yenny Cortez MD ATTENDING PHYSICIAN:Yenny Cortez MD CONSULTATION DATE: 10/22/2022 REQUESTING PHYSICIAN: Dr. Hoff. HISTORY OF PRESENT ILLNESS: Ms. Amaya is a [age]-year-old pleasant lady who recently underwent mitral va lve replacement for severe mitral regurgitation with a history of hypertension, h ypercholesterolemia, carotid artery disease, status post right carotid artery en darterectomy in the past, history of complete heart block, status post pacemaker and history of post operative AFib, now in sinus rhythm, who is now transferr ed to rehabilitation after her mitral valve surgery. The patient has been doing well and a repeat ec hocardiogram done just before transfer to rehabilitation s howed normal functioning prosthetic mitral valve and no pericardial effusion. PAST MEDICAL HISTORY: Otherwise, as above. SOCIAL HISTORY: Nonsmoker at present. FAMILY HISTORY: Negative for premature coronary arteries. MEDICATIONS: As charted. PHYSICAL EXAMINATION: VITAL SIGNS: Blood pressure is 127/57, heart rat e 60 per minute and regular, respiratory rate 14, temperature 98.5. HEENT: No jugular venous distention. CHEST: Decreased breath sounds in all lung field s. CARDIOVASCULAR: Apical impulse not palpable. S1, S2, soft. ABDOMEN: Benign. EXTREMITIES: Show 1+ edema. EKG shows right ventricular pacing with normal c apture. IMPRESSION: 1. Status post mitral valve surgery with PVI and ligation of the left atrial appendage. Clinically, doing well and repeat ech ocardiogram showed normally functioning prosthetic valve. 2. Hypertension, fair control. 3. Hypercholesterolemia, on medicines. 4. Status post pacemaker, normal capture on EKG. 5. Status post atrial fibrillation postop, now i n normal sinus rhythm. RECOMMENDATIONS: PATIENT NAME: SWEETIE AMAYA [id number] 1. Continue current medication. 2. We will follow up with Dr. Bowden in the [facility]. 3. Continue telemetry. Dictated By: Praful Zhou MD Date Dictated: 10/23/2022 06:35:07 Date Transcribed: 10/23/2022 08:18:15 GA/ADRIANK Receipt ID: [id number] Authenticated by Praful Zhou MD On 10/23/2022 0 5:42:46 PM Electronically Signed by Praful Zhou MD on 0 10/23/22 at 0542 PATIENT NAME: SWEETIE AMAYA [id number] [facility] 13:32:00-00:00 [facility] ([facility]) Adult General Consultation REPORT#:[id number] REPORT STATUS: Signed DATE:10/22/22 TIME: 1332 PATIENT: SWEETIE AMAYA UNIT #: [id number] ROOM/BED: [place] [address] : 47 AGE: 77 SEX: F ATTEND: Yenny Cortez MD ADM AUTHOR: Nina Melgar MD * ALL edits or amendments must be made on the [employer]/computer document * History of Present Illness Reason for consult: medical management Free Text HPI Notes Free Text HPI Notes: 77 YO female with PMHx of hy pertension, hyperlipidemia, carotid artery disease s /p R CEA , afib,s/p pacemeaker transferred to [facility] rehab facility today from hospital after trell valve surgery . she is weak . she had afib RVR post procedure . now HR is under control . she feel w ell . no cp no sob no palpitation no nausea no vomiting no abd ominal pain no diarrhea no dizziness . History - Adult longitudinal Past medical history: Reports: Hypertension, Dyslipidemia. Denies: Ailyn betes mellitus, Anticoagulant therapy, Atrial flutter, Ischemic stroke, Prior AL, Venous thromboembolism. Past surgical history: Reports: Carotid endarterectomy (RIGHT ), Knee p rocedure. Alcohol use: Denies EtOH use Drug use: Denies recreational drugs Smoking status for patients 13 years old or olde r: Never Smoker Additional social history: Pt lives at home with her . She was IND a nd actove as PLOF. She does not use DME as PLOF. She states that she h as a RW from previous TKA Allergies: Coded Allergies: Penicillins (Intermediate, BREATHING ISSUES- OK W KEFLEX 10/05/22) SPECIFIC Allergy: PENICILLINS Review of Systems Constitutional: generalized weakness. Denies: fatigue, fever, le thargy. Respiratory: Denies: productive cough (sputum), SOB, wheezing . Cardiovascular: Denies: chest pain, BLANCO (dyspnea on exer tion), edema, orthopnea, palpitations. GI: Denies: abdominal pain, diarrhea, nausea, vomiti ng. : Denies: dysuria, flank pain, frequency, hematuri a. Neuro: Denies: confusion, dizziness, headache, seizure. Objective VS/I O: Last Documented: Result Date Time Pulse Ox 93 10/22 1203 B/P 146/96 10/22 1203 B/P Mean 112.7 10/22 1203 Temp 37.0 10/22 1203 Pulse 62 10/22 1203 PATIENT WEIGHT: Weight (lb): Weight (oz): Weight (kg): General appearance: alert, awake, oriented, no a cute distress Head/Eyes: atraumatic, normocephalic, normal con junctiva/sclera Neck: full range of motion, non-tender, no JVD Cardiovascular: irregular rhythm, irregularly ir regular, normal heart sounds Respiratory: aerating well, clear to auscultatio n Abdomen: soft, non-tender, no distention Extremities: moves all, no edema Neuro/CHARGING MANIPULATOR: alert, oriented X 3, CNII-XII grossly intact, normal speech, no motor deficits, no sensory deficits Skin: dry, intact Diagnosis, Assessment Plan Free Text DxA P Notes Free Text DxA P Notes: cardiac debility severe mitral valve regurgitation -post mitral v alve surgery HTN HLD CHF -- diastolic SSS, symptomatic bradycardia; CHB -s/p TPM afib -- rate control PT/OT BP- -- stable on metoprolol/capopril/norvasc monitor BP afib - rate control -- metoprolol and amiodarone no AC -- due to post surgery CHF-lasix stable HLD -- continue lipitor will continue follow patient in the rehab facili ty Quality: [facility] Crit Care Current Medications Current medication review: Current Medications Sig/Paulette Start time Last Medication Dose Route Stop Time Status Admin Mesalamine 800 MG AC BK DIN 10/22 1630 AC PO 11/21 1629 Aspirin 81 MG DAILY 10/22 0900 AC PO 11/21 0859 Ferrous Sulfate 325 MG DAILY 10/22 09 AC PO 11/21 0859 Furosemide 20 MG DAILY 10/22 09 AC PO 11/21 0859 Pantoprazole 40 MG DAILY@00 10/22 0600 AC PO 11/21 0559 Captopril 12.5 MG Q8HR 10/21 2200 AC PO 11/20 215 Amlodipine Besylate 5 MG BEDTIME 10/21 2100 AC PO 11/20 2058 Atorvastatin Calcium 40 MG 2100 10/21 2100 AC PO 11/20 205 Doxycycline 100 MG Q12HR 10/21 2100 AC Monohydrate PO 10/28 205 Gabapentin 600 MG BEDTIME 10/21 2100 AC PO 11/20 205 Melatonin 6 MG BEDTIME 10/21 2100 AC PO 11/20 205 Metoprolol Tartrate 50 MG Q12HR 10/21 2100 AC PO 11/20 2059 Amiodarone HCl 200 MG BID 9A 5P 10/21 1700 AC PO 11/20 1659 Acetaminophen 650 MG Q4H PRN PRN 10/21 1530 AC 10/22 PO 11/20 1529 1433 Bisacodyl 10 MG DAILY PRN PRN 10/21 1530 AC RECTAL 11/20 1529 Ondansetron HCl 4 MG Q6H PRN PRN 10/21 1530 AC PO 11/20 1529 Polyethylene Glycol 17 GM BID PRN PRN 10/21 153 0 AC PO 11/20 1529 I attest that the foregoing medication list in [facility] medical record is true, accurate, and complete to the best of my knowled ge. Electronically Signed by Nina Melgar MD on 3 at 1608 [facility] #:[id number] END OF REPORT 2022-10-22 [facility] 09:32:00-00:00 [facility] ([facility]) Cardiology Progress Note REPORT#:[id number] REPORT STATUS: Signed DATE:10/22/22 TIME: 931 PATIENT: SWEETIE AMAYA UNIT #: [id number] ROOM/BED: [place] [address] : 47 AGE: 77 SEX: F ATTEND: Bella Hoff MD ADM AUTHOR: Praful Zhou MD * ALL edits or amendments must be made on the [employer]/computer document * Subjective Chief complaint: NONE Objective General VS/I O: 24 hour I O ending at 0700: 10/22 0700 10/21 1900 Intake Total 325 1050 Output Total 1300 Balance 325 -250 Intake, Oral 325 1050 Number 0 Bowel Movements Number Voids 3 3 Output, Urine 1300 Patient 75.7 kg 75.4 kg Weight Weight Standing scale Standing scale Measurement Method Vital Signs: Date Time Temp Pulse Resp B/P B/P Pulse O2 O2 F low FiO2 Mean Ox Delivery Rate 10/22 0810 98.8 62 18 154/69 0.0 96 Room air 10/22 0445 98.1 62 13 133/72 92.5 100 Room air 10/22 0000 98.4 60 13 117/60 79.3 92 Room air 10/21 2105 100 Room air 10/21 1851 98.6 60 13 160/74 102.4 95 Room air 10/21 1638 60 21 166/71 108 98 10/21 1630 60 22 97 10/21 1454 61 20 168/80 115 98 10/21 1446 72 17 144/70 0.0 93 Room air 10/21 1444 60 24 144/70 100 99 10/21 1350 60 18 131/63 91 92 10/21 1340 60 24 134/65 94 92 10/21 1330 60 23 138/67 95 93 10/21 1320 60 28 146/70 100 94 10/21 1310 60 27 136/64 92 92 10/21 1300 60 20 141/65 94 92 10/21 1250 60 19 122/57 84 95 10/21 1241 60 21 139/71 99 97 10/21 1202 98.4 61 18 184/82 0.0 97 Room air 10/21 1200 62 14 184/82 118 99 10/21 0937 63 18 157/71 102 97 PATIENT WEIGHT: Weight (lb): 166 Weight (oz): 14.24 Weight (kg): 75.700 Medications: Active Meds + DC'd Last 24 Hrs Furosemide (LASIX) 20 MG DAILY PO Gabapentin (NEURONTIN) 600 MG BEDTIME PO Perflutren Protein Type A Microsphe (OPTISON 3ML VIAL) 0 .STK-MED ONE IV (DC) Captopril (CAPOTEN) 12.5 MG Q8HR PO Metoprolol Tartrate (LOPRESSOR) 50 MG Q12HR PO Promethazine HCl (PROMETHAZINE HCL) 12.5 MG AC H S PO Simethicone (MYLANTA GAS) 80 MG QID PRN PRN PO Pantoprazole (PROTONIX) 40 MG DAILY 0600 PO Ondansetron HCl (ZOFRAN) 4 MG Q4H PRN PRN IV Amiodarone HCl (CORDARONE) 200 MG BID 9A 5P PO Doxycycline Monohydrate (DOXYCYCLINE MONOHYDRATE ) 100 MG Q12HR PO Amiodarone HCl (AMIODARONE HCL) 450 MG ASDIR IV (DC) Dextrose/Water (D5%W NON-DEHP) 250 ML Amlodipine Besylate (NORVASC) 5 MG BEDTIME PO Furosemide (LASIX 20MG INJ) 20 MG BID 9A 5P IV ( DC) Hydrocodone Bitart/Acetaminophen (NORCO 5/325) 2 TAB Q4H PRN PRN PO Ipratropium [employer] (ATROVENT) 500 MCG RTQ2H PRN PRN INH Cyanocobalamin (Vitamin B-12 500 mcg tab) 500 MC G DAILY PO Ferrous Sulfate (FERROUS SULFATE) 325 MG DAILY P O Bisacodyl (DULCOLAX) 10 MG ONCE PRN RECTAL Captopril (CAPOTEN) 6.25 MG Q8HR PO (DC) Atorvastatin Calcium (LIPITOR) 40 MG 2100 PO Mesalamine (DELZICOL 400MG CAP DR.) 800 MG BID P O Polyethylene Glycol (MIRALAX) 17 GM DAILY PO Melatonin (Melatonin) 6 MG BEDTIME PO Docusate Sodium (COLACE) 100 MG BID PO Sennosides (Senna Lax 8.6 MG TABLET) 17.2 MG BED TIME PO Aspirin (ASPIRIN) 81 MG DAILY PO Acetaminophen (TYLENOL) 650 MG Q4H PRN PRN PO Acetaminophen (TYLENOL) 650 MG Q4H PRN PRN RECTA L Calcium Chloride (CALCIUM CHLORIDE) 1 GM ASDIR P RN IV Epinephrine (ADRENALIN CHLORIDE) 4 MG ASDIR IV Dextrose/Water (DEXTROSE 5% WATER) 246 ML Glucagon (GLUCAGON) 1 MG ASDIR PRN IM Magnesium Sulfate (MAGNESIUM SULFATE 4GM/SWFI 10 0ML) 100 ML ASDIR PRN IV Magnesium Sulfate (MAGNESIUM SULFATE 2GM/SWFI 50 ML) 50 ML ASDIR PRN IV Magnesium Sulfate/Dextrose (MAGNESIUM SULFATE 1G M/D5W 100ML) 100 ML ASDIR PRN IV Nitroglycerin/Dextrose (NITROGLYCERIN 50,000MCG/ D5W 250ML) 250 ML ASDIR IV Norepinephrine Bitartrate (NOREPINEPHRINE 8 MG/N S 250 ML) 250 ML TITRATE IV Potassium Chloride (KCL 20MEQ/SWFI 100ML) 100 ML ASDIR PRN IV Sodium Bicarbonate (SODIUM BICARBONATE) 50 MEQ A SDIR PRN IV Sodium Chloride (SODIUM CHLORIDE 0.9%) 1,000 ML .Q20H IV Sodium Chloride (SODIUM CHLORIDE 0.9%) 250 ML Q2 4H IV Physical Exam General appearance: alert, awake ENT: normal nose Neck: non-tender, no JVD Cardiovascular: CV assessment: regular rate and rhythm Murmur assessment: heart murmur Respiratory: decreased breath sounds, on oxygen, no distress Abdomen: soft, non-tender, normal bowel sounds Genitourinary: no flank pain, no urinary cathete r Upper extremity: Right radial site: intact, no bleeding, no drai nage, no ecchymosis, no hematoma Lower extremity: LE assessment: no edema Musculoskeletal: normal inspection Neuro/CHARGING MANIPULATOR: alert, oriented X 3, normal speech Skin: dry, intact Psychiatry: normal affect, normal judgment/insig ht, normal mood Results Findings/Data: Laboratory Tests 10/21 1132 Serology SARS-CoV-2 Ag (Rapid) (Negative) Negative Diagnosis, Assessment Plan Consultants: cardiology, cardiovascular surgery, critical/clubhouse manager Free Text DxA P Notes Free Text DxA P Notes: 77 YO female with PMHx of hy pertension, hyperlipidemia, carotid artery disease s /p R CEA who has been having progressively worse madeleine shortness of breath. She was found to have severe mitral valve regurgitat ion. 1. Severe mitral valve regurgitation s/p MVR, PV I, and ALAA * Repeat Echo showed normal valve functi on and no effusion. OK TO D/C TO REHAB * continue ASA * repeat echo LVEF preserved * euvolemic, DC IV lasix, change to PO 20 mg chanda ly * Upper arm venous doppler - no DVT 2. Hypertension * BP remains suboptimal * continue amlodipine 5mg daily, metoprolol 50mg BID, increase Captopril to 12.5mg TID * monitor BP closely and adjust meds as needed 3. Hyperlipidemia * continue statin 4. Complete heart block/Sick sinus syndrome * s/p ppm placement 5. Post-op afib RVR (10/18) - converted to sinus * continue Amio 200 mg PO BID and metoprolol 50m g BID * no need for AC - patient had ALAA during surge ry [facility] Signed by Praful Zhou MD on at 0934 RPT #:[id number] END OF REPORT 2022-10-22 [id number] [facility] 09:31:00-00:[address] [place] [address] PATIENT NAME: SWEETIE AMAYA ADMIT DATE: 10/11 ACCOUNT NO: [id number] ROOM NO: [id number] AGE: 77 REPORT TYPE: eECHOCARDIOGRAM REPORT SEX: F ADMITTING PHYSICIAN:Dory Hoff MD ATTENDING PHYSICIAN:Dory Hoff MD *[facility]* [address] [place] [address] Transthoracic Echocardiogram Patient: Sweetie Amaya Study Date: 10/21/2022 BP: 168 / 80 Location: CO CCL URN: [id number] 71 : 1945 Age: 77 Height: 68 in / 172.7 cm Gender: F Weight: 165 .7 lb / 75.3 kg BMI/BSA: 25.2 kg/m 2 / 1.91 m 2 *Ordering Physician: * Navdeep Carey MD *Interpreting Physician: * Praful Zhou MD *Dx Board Operator: * CRESENCIO Claire Indications: S/P CABG. Study data: Transthoracic echocardiogram. Proced ure: Transthoracic echocardiography was performed. Images were obta ined using a Cloud[employer] cardiac ultrasound machine. The study was technically li mited due to restricted patient mobility. Intravenous contrast (Optison, 2 mls) was administered. Complete 2D, complete spectral Dop pler, and color Doppler. Location: Bedside. Patient status: [facility]. Patient room number: 3361. Study status: Routine. Findings Left ventricle: The cavity size is dilated. Wall thickness is normal. Systolic function is normal. The estimated eject ion fraction is 60-64%. Wall motion is normal; there are no regional wal l motion abnormalities. PATIENT NAME: SWEETIE AMAYA [id number] The study is not technically sufficient to allow evaluation of LV diastolic function. Right ventricle: TAPSE is 1.2 cm. The cavity siz e is normal. Systolic function is reduced. Systolic pressure is mildly increased. Estimated right ventricular systolic pressure is 12.1 mm H g. Left atrium: The atrium is normal in size. Right atrium: The atrium is normal in size. Pace r wire noted in right atrium. Aorta: Aortic root: The aortic root is normal i n size. Aortic valve: Not well visualized. There is no e vidence of stenosis. There is no regurgitation. Mitral valve: There is a bioprosthesis. There i s no evidence of stenosis. There is trivial regurgitation. Tricuspid valve: The valve is structurally lara l. There is mild regurgitation. Pulmonic valve: Not well visualized. Pericardium: There is no pericardial effusion. Systemic veins: Inferior vena cava: The vessel is normal in size . The respirophasic diameter changes are in the normal range (= 50%) . Measurements Left ventricle Value 10/16/2022 Ref LUCILLE, LAX 5.6 cm 4.4 3.8 - 5.2 ESD, LAX 3.6 cm 3.1 2.2 - 3.5 ESD/bsa, 1.9 cm/m 2 1.6 1.3 LAX - 2.1 FS, LAX 36 % 30 27 - 45 ESD/bsa 3.1 cm/m 2 2.3 ---- major ax, A4C LUCILLE/bsa 3.1 cm/m 2 2.3 ---- minor ax, A4C LUCILLE major 7.3 cm 6.1 ---- ax, A2C ESD major 6.6 cm 5.7 ---- ax, A2C LUCILLE/bsa 3.8 cm/m 2 3.1 ---- major ax, A2C ESD/bsa 3.5 cm/m 2 2.9 ---- major ax, A2C PW, ED 0.9 cm 0.9 0.6 - PATIENT NAME: SWEETIE AMAYA [id number] 0.9 IVS/PW, ED 0.91 1.02 ---- EF 65 % 58 54 - 74 LVOT Value 10/16/2022 Ref Diam, S 1.78 cm 1.95 ---- Area 2.5 cm 2 3.0 ---- Peak griselda, S 1.2 m/sec 1.45 ---- Mean griselda, S 0.78 m/sec 1 ---- VTI, S 19.9 cm 23.9 ---- Peak grad, 6 mm Hg 8 ---- S Mean grad, 3 mm Hg 4 ---- S SV 49 ml 71 ---- Qs 11.56 L/min 4.99 ---- Qs/bsa 6 L/(min-m 2) 2.5 ---- SV/bsa 26 ml/m 2 36 ---- Ventricular septum Value 10/16/2022 Ref IVS, ED 0.8 cm 0.9 0.6 - 0.9 Right ventricle Value 10/16/2022 Ref Pressure, S 12 mm Hg ---- Left atrium Value 10/16/2022 Ref AP dim, ES 2.73 cm 3.66 2.70 - 3.80 Vol/bsa, 6 ml/m 2 26 11 - ES, 1-p A4C 40 Vol/bsa, 6 ml/m 2 26 16 - ES, A/L 34 Aortic valve Value 10/16/2022 Ref Peak v, S 1.81 m/sec 1.85 ---- Mean v, S 1.02 m/sec 1.37 ---- VTI, S 29.7 cm 32.0 ---- Mean grad, 5.1 mm Hg 8.3 ---- S Peak grad, 13.0 mm Hg 13.7 ---- S LVOT/AV, 0.67 0.75 ---- VTI ratio DONNIE, VTI 1.66 cm 2 2.22 ---- LVOT/AV, 0.67 0.78 ---- Vpeak ratio DONNIE, Vmax 1.65 cm 2 2.33 ---- Mitral valve Value 10/16/2022 Ref Peak E 1.43 m/sec 1.41 ---- PATIENT NAME: SWEETIE AMAYA [id number] Peak A 0.46 m/sec 0.37 ---- Mean v, D 0.75 m/sec ---- VTI leaflet 45.6 cm ---- coapt Decel time 219 ms 238 ---- Mean grad, 3.0 mm Hg ---- D Peak grad, 10.1 mm Hg 8.0 ---- D Peak E/A 3.14 3.86 ---- ratio Pulmonic valve Value 10/16/[address] v, ED 2.34 m/sec 0.7 ---- CT grad, ED 22 mm Hg ---- Tricuspid valve Value 10/16/2022 Ref TR peak v 1.51 m/sec 2.94 <=2. 8 Peak RV-RA 9 mm Hg 34 ---- grad, S Pulmonary artery Value 10/16/2022 Ref Pressure, S 12.1 mm Hg ---- Systemic veins Value 10/16/2022 Ref Estimated 3 mm Hg ---- CVP Conclusions Summary: 1. Left ventricle: The cavity size is dilated. W all thickness is normal. Systolic function is normal. The estimated ejec tion fraction is 60-64%. Wall motion is normal; there are no reg ional wall motion abnormalities. The study is not technically suf ficient to allow evaluation of LV diastolic function. 2. Right ventricle: TAPSE is 1.2 cm. Systolic fu nction is reduced. Systolic pressure is mildly increased. 3. Mitral valve: There is a bioprosthesis. WITH NORMAL FUNCTION. 4. Pericardium, extracardiac: There is no perica rdial effusion. Prepared and electronically signed by Praful Zhou MD 10/22/2022 09:31 Electronically Signed by Praful Zhou MD on 0 10/22/22 at 0931 PATIENT NAME: SWEETIE AMAYA [id number] [facility] 09:01:00-00:00 [facility] Cardiothoracic Surgery Prog REPORT#:[id number] REPORT STATUS: Signed DATE:10/22/22 TIME: 900 PATIENT: SWEETIE AMAYA UNIT #: [id number] ROOM/BED: [place] [id number] : 47 AGE: 77 SEX: F ATTEND: Bella Hoff MD ADM AUTHOR: Navdeep Carey MD * ALL edits or amendments must be made on the el Internet [employer]/computer document * Subjective HPI: HD stable no new issues overnight Objective General VS/I O Last Documented: Result Date Time Pulse Ox 96 10/22 0810 B/P 154/69 10/22 0810 B/P Mean 0.0 10/22 0810 O2 Delivery Room air 10/22 0810 Temp 37.1 10/22 0810 Pulse 62 10/22 0810 Resp 18 10/22 0810 O2 Flow Rate 4 10/20 2000 FiO2 28 10/18 0342 24 hour I O ending at 0700: 10/22 0700 10/21 1900 Intake Total 325 1050 Output Total 1300 Balance 325 -250 Intake, Oral 325 1050 Number 0 Bowel Movements Number Voids 3 3 Output, Urine 1300 Patient 75.7 kg 75.4 kg Weight Weight Standing scale Standing scale Measurement Method PATIENT WEIGHT: Weight (lb): 166 Weight (oz): 14.24 Weight (kg): 75.700 Physical Exam Wound/incision: Location: sternum Site condition: dressing clean dry, dressing in tact HEENT: anicteric, mucosal membranes moist, pupil s reactive to light Neck: full range of motion, non-tender Cardiovascular: regular rate rhythm, A paced Respiratory: aerating well Abdomen: soft, non-tender Genitourinary: urine Extremities: dry, moves all Musculoskeletal: full range of motion Neuro/CHARGING MANIPULATOR: alert, oriented X 3 Skin: dry, intact Psychiatry: normal affect, normal mood Current Medications Medications: Active Meds + DC'd Last 24 Hrs Furosemide (LASIX) 20 MG DAILY PO Gabapentin (NEURONTIN) 600 MG BEDTIME PO Perflutren Protein Type A Microsphe (OPTISON 3ML VIAL) 0 .STK-MED ONE IV (DC) Captopril (CAPOTEN) 12.5 MG Q8HR PO Metoprolol Tartrate (LOPRESSOR) 50 MG Q12HR PO Promethazine HCl (PROMETHAZINE HCL) 12.5 MG AC H S PO Simethicone (MYLANTA GAS) 80 MG QID PRN PRN PO Pantoprazole (PROTONIX) 40 MG DAILY 0600 PO Ondansetron HCl (ZOFRAN) 4 MG Q4H PRN PRN IV Amiodarone HCl (CORDARONE) 200 MG BID 9A 5P PO Doxycycline Monohydrate (DOXYCYCLINE MONOHYDRATE ) 100 MG Q12HR PO Amiodarone HCl (AMIODARONE HCL) 450 MG ASDIR IV (DC) Dextrose/Water (D5%W NON-DEHP) 250 ML Amlodipine Besylate (NORVASC) 5 MG BEDTIME PO Furosemide (LASIX 20MG INJ) 20 MG BID 9A 5P IV ( DC) Hydrocodone Bitart/Acetaminophen (NORCO 5/325) 2 TAB Q4H PRN PRN PO Ipratropium [employer] (ATROVENT) 500 MCG RTQ2H PRN PRN INH Cyanocobalamin (Vitamin B-12 500 mcg tab) 500 MC G DAILY PO Ferrous Sulfate (FERROUS SULFATE) 325 MG DAILY P O Bisacodyl (DULCOLAX) 10 MG ONCE PRN RECTAL Captopril (CAPOTEN) 6.25 MG Q8HR PO (DC) Atorvastatin Calcium (LIPITOR) 40 MG 2100 PO Mesalamine (DELZICOL 400MG CAP DR.) 800 MG BID P O Polyethylene Glycol (MIRALAX) 17 GM DAILY PO Melatonin (Melatonin) 6 MG BEDTIME PO Docusate Sodium (COLACE) 100 MG BID PO Sennosides (Senna Lax 8.6 MG TABLET) 17.2 MG BED TIME PO Aspirin (ASPIRIN) 81 MG DAILY PO Acetaminophen (TYLENOL) 650 MG Q4H PRN PRN PO Acetaminophen (TYLENOL) 650 MG Q4H PRN PRN RECTA L Calcium Chloride (CALCIUM CHLORIDE) 1 GM ASDIR P RN IV Epinephrine (ADRENALIN CHLORIDE) 4 MG ASDIR IV Dextrose/Water (DEXTROSE 5% WATER) 246 ML Glucagon (GLUCAGON) 1 MG ASDIR PRN IM Magnesium Sulfate (MAGNESIUM SULFATE 4GM/SWFI 10 0ML) 100 ML ASDIR PRN IV Magnesium Sulfate (MAGNESIUM SULFATE 2GM/SWFI 50 ML) 50 ML ASDIR PRN IV Magnesium Sulfate/Dextrose (MAGNESIUM SULFATE 1G M/D5W 100ML) 100 ML ASDIR PRN IV Nitroglycerin/Dextrose (NITROGLYCERIN 50,000MCG/ D5W 250ML) 250 ML ASDIR IV Norepinephrine Bitartrate (NOREPINEPHRINE 8 MG/N S 250 ML) 250 ML TITRATE IV Potassium Chloride (KCL 20MEQ/SWFI 100ML) 100 ML ASDIR PRN IV Sodium Bicarbonate (SODIUM BICARBONATE) 50 MEQ A SDIR PRN IV Sodium Chloride (SODIUM CHLORIDE 0.9%) 1,000 ML .Q20H IV Sodium Chloride (SODIUM CHLORIDE 0.9%) 250 ML Q2 4H IV Results Findings/Data: Laboratory Tests 10/21 113 Serology SARS-CoV-2 Ag (Rapid) (Negative) Negative Diagnosis, Assessment Plan Hospital course to date: D/C home RTC 2 weeks at 1124 RPT #:[id number] END OF REPORT 2022-10-21 [facility] 15:16:00-00:00 [facility] Rehab Preadmission Screen REPORT#: REPORT STATUS: DATE:10/21/22 TIME: 1515 PATIENT: SWEETIE AMAYA UNIT #: ROOM: BED: : 47 AGE: 77 SEX: F ATTEND: Yenny Cortez MD PROJECTED ADM AUTHOR: Xi Cortez MD REP SRV REP SRV TM: 1516 * ALL edits or amendments must be made on the el [employer]/computer document * IRF Preadmission Screen Information From [facility] documentation: The data set between the solid lines has been im ported from [facility] documentation. PREADMISSION INFORMATION: DEMOGRAPHICS: Assessment date: 10/20/22 Assessment time: 1102 Patient has an Advanced Directive: No Content of advance directive/living will/plan of care: Copy of advance directive on chart: Referring physician: DR. HOFF Primary care provider: DR. YENNY BOONE Consulting physician(s): DR. HOFF ATTENDING Joao CORTEZ RE[address] DR. VIDALES MEDICAL DR. BOWDEN CARDIOLOGY DR. NASH MEDICAL DR. KU MEDICAL DR. CAREY SURGICAL DR. GRAY [facility] Referral contact name: RHEA CHÁVEZ Referral contact number: [phone] Referring setting: Acute hospital Room number: 3361 IMPAIRMENT GROUP: Impairment group: Cardiac disorders Etiologic diagnosis: A FIB PAROXYSMAL MITRAL REG URGITATION REVIEW OF MED CONDITIONS: Date of onset: 10/11/22 Current surgery date and type: 10/12/22 MITRAL V ALVE REPLACEMENT, PULMONARY VEIN ISOLATION, AMPUTATION OF LEFT ATR IAL APPENDAGE 10/11/22 LEFT HEART CATH 10/18/22 PACEMAKER PLACEMENT Active comorbid conditions: HTN, HLD, A FIB, ACU TE BLOOD LOSS ANEMIA, GERD, ASTHMA, CARDIOGENIC SHOCK, METABOLIC ACIDOSIS, A CUTE PULMONARY INSUFFICIENCY, FOLLOWING SURGERY Past medical and surgical history: A FIB Past me dical history: Reports: Hypertension, Dyslipidemia. Denies: Diabetes steven litus, Anticoagulant therapy, Atrial flutter, Ischemic stroke, Prior AL, Venou s thromboembolism. Past surgical history: Reports: Carotid endarterectom y (RIGHT ), Knee procedure. Severe mitral regurgitation status post MVR on Acute pulmonary insufficiency following major cardiothoracic ward mike Cardiogenic shock Acute blood loss anemia Metabolic acidosis Hyp okalemia Sick Sinus Syndrome Hx Asthma GERD HTN P A FIB Had major surgery within 100 days of admission: Yes Risk for medical/clinical complications: Anemia, Arrhythmia, Aspiration, BP fluctuation, Blood sugar fluctuation, Cardiac in stability, Constipation, DVT, Depression, Electrolyte imbalance, Hypoxia, Inci sional dehiscence, Infection, Injury d/t falls, Nutritional compromise, Pain, Renal insuff/failure, Skin breakdown, Respiratory insufficiency, Urinary re tention Acute hospital stay summary: 77-year-old female with past medical history significant for hypertension, dyslipidemia, paro xysmal atrial fibrillation, carotid stenosis status post CEA in 2020 was evaluated for shortness of breath and dyspnea on exertion over the past several mo nths. She denies any symptoms at rest. No angina symptoms were reported. Patie nt reported lower extremity weakness along with shortness of breath. She und erwent echocardiogram in the outpatient setting that showed EF of 60 to 65% w ith a dilated left atrium, moderate to severe mitral regurgitation. 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 There was possibility of chordae t endonee rupture evidence of trace tricuspid regurgitation with ascending aor ta measuring 3.7 cm. Patient underwent left heart cathete rization that showed no significant coronary artery disease. Patient underwent CT surgery evaluation for severe mitral valve regurgitation for possible mitral valve replacement.On 10/12 she was brought to the OR and underwent Mitral Valve Replaacement, PUlmonary Vein Isolation and Amutation of the left atrial appendage on [address] Carey. Postoperatively, the patient is pacer de pendent and has junctional bradycardia of pacer, off amiodarone and on metoprolol. A co nsult was requested for possible permanent pacemaker with EP. EP now rec ommending permanant pacemaker and pending placement for today by Dr. Nash. Pt is progressing slowly with therapy d/t weakness, self care deficit, decreas ed endurance and balance, and decreased functional mobility. Pt requiring acut e inpt rehab for multidisciplinary team of nursing, therapy, and physicians. Pt is willing and able to participate in 3 hr/ day inpt rehab to d/c home safely. Pt's prior level of function was independent and did not use any AD but has RW from a previous surgery. PREADMIT VITALS: Date/Time 10/20/2272710/20/22 0515 Temp F Temp C 36.8 36.8 Pulse 60 60 RR 18 16 BP 163/73 138/63 SPO2% 95 98 Ht ft 5 Ht in 8.51 Wt lbs 182.000 BMI SUPPORTING DIAGNOSTICS/LABS/RADIOLOGY/CARDIOLOGY : Date: 10/19/22 10/18/22 WBC: 14.4 12.4 HGB: 8.1 7.9 HCT: 24.5 23.0 Ca: 8.7 9.4 Na: 129 130 K+: 4.0 4.0 Glu: 125 118 M.95 1.81 BUN: 8 12 Creat: 0.7 0.7 Tot protein: 5.5 Alb: 2.70 PTT: PT: INR: PLT: [id number] Additional labs: Cultures: 10/11/22 MRSA NEGATIVE MSSA NEGATIVE Imagin10/19/22 CXR IMPRESSION: No significant interval change. 10/18/22 CXR IMPRESSION: Interval placem ent of new left cardiac device is present. 10/17/22 CXR Worsened signs of volume overload/ pulmonary edema with trace bilateral pleural eff usions. VENOUS DOPPLER IMPRESSION: No deep venous thrombosis is seen in the visualized left upper extremity. 10/11/22 CAROTI D DOPPLER IMPRESSION: Plaque along the bilateral common ca rotid arteries and internal carotid arteries. No significant stenos is of the proximal internal carotid arteries by NASCET criteria CHEST CT IMPRESSION: 1. Mild bibasilar fibrotic changes. 2. Mild right middle lobe fibrosis and bronchiectasis. 3. Scattered g round-glass opacities with reticulonodular changes may represent pneumoniti s. Follow-up to ensure resolution. 4. Pulmonary nodules. Follow-up per Fleischner society guidelines:For patients at low risk (minimal or absent history of smoking and of other known risk factors), no routine fol low-up is indicated. For patients at high risk (history of smoking or of other known risk factors), consider optional CT Chest at 12 months. (Refere nce: Ne) References: Ne Carrillo et al. Guidelines for Ma nagement of Incidental Pulmonary Nodules Detected on CT Images: From nico diaz Fleischner Society 2017. Radiology. 2017;284(1):228-243. 10/10/22 CXR IMP RESSION: Mild enlarged cardiac silhouette. Other supporting diagnostics: RESPIRATORY STATUS: Respiratory treatments: Nebulizer O2 liters per minute: Respiratory status: ROOM AIR NEUROLOGIC STATUS: Neurologic status: Alert, Oriented to person, Or iented to place, Oriented to time, Oriented to situation Patient's mood and behavior: Appropriate Hand dominance: Right BOWEL/BLADDER: Continent of bladder for developmental age: Yes Number of bladder accidents in last 48 hours: Catheter type: Insertion date: Bladder aids: Bladder comment: Continent of bowel for developmental age: Yes Number of bowel accidents in last 48 hours: Date of last BM: Colostomy: Ileostomy: Bowel aids: Bowel comment: LAST BM NOT CHARTED SKIN: Skin alteration: Present/Exists SKIN ALTERATION 1: Type: Surgical wound Location: Generalized Stage: Description: SUBCLAVIAN LEFT PACEMAKER P ERMANENT ANTERIOR CHEST MIDLINE MITRAL VALVE REPLACEMENT SKIN ALTERATION 2: Type: Location: Stage: Description: SKIN ALTERATION 3: Type: Location: Stage: Description: SKIN ALTERATION 4: Type: Location: Stage: Description: EATING/NUTRITIONAL: Nutritional intake: CARDIAC DIET Eating compensatory strategies: Medication administration: IV, Medications whole , Subcutaneous REHAB NEEDS: Special rehabilitation needs: IV/PICC/CVC, Respi ratory therapy Special rehabilitation precautions: Diet, Cardia c, Aspiration, Safety/fall, Sternal Rehabilitation precaution detail: CARDIAC/PACEMA KER/A FIB MITRAL VALVE REPLACEMENT STERNAL PACER DEPENDENT PPM FUNCTIONAL ASSESSMENT: FUNC. TASK PRIOR LOF CURRENT LOF EXPECTED LOF Bathing Independent Substantial/max asst Indepe ndent U.B. Dressing Independent Partial/moderate asst Independent L.B. Dressing Independent Substantial/max asst Independent Bed/Ch Transf. Independent Partial/moderate ass t Independent Toilet Transfer Independent Substantial/max ass t Independent Stairs Independent Partial/moderate asst Indepe ndent Locomotion Independent Partial/moderate asst In dependent Locomotion prior device use: None Description of prior level of locomotion: NO AD BUT HAS WALKER FROM PREVIOUS SURGERY Locomotion current device: RW/FWW Locomotion current distance traveled without a r est break: 50 FT X 3 RW Description of current level of locomotion: SHOR T STEP SLOW Description of expected level of locomotion: MOD I WITH WALKER Language and Cognition: A O X 4 ICELANDIC Add'l functional comment: BED MOBILITY MIN A SCO OTING MIN A SUP/SIT MIN A SIT/SUP MIN A SIT/STAND MIN A Prior device use: None Prior device use additional information: PRE-HOSPITAL: Pre-hospital services utilized: None Occupation/Profession: Retired Education history: Return to work/school plan: Marital status: Hobbies/leisure activities: Prior living situation: Home Living with: Family Living with comment: LIVES WITH SPOUSE ANTICIPATED DC PLAN/POST IRF: Primary support contact: MICHAEL Relationship to patient: SPOUSE Phone number 1: [phone] Phone number 2: Caregiver availability: Caregiver can provide: Patient/caregiver goals/preferences: Expected discharge destination: Home Expected discharge physical layout: One story, T ub/shower combo Number of external stairs: Number of internal stairs: Railing details: Grab bars location: Barriers to discharge: Endurance Options discussed with patient: Yes Options discussed with caregiver: Yes Patient agrees with program requirements: Yes ACTIVITY TOLERANCE: Current treatment interventions: Respiratory the rapy, Physical therapy, Occupational therapy Patient able to tolerate 3 hours of therapy a da y: Yes Patient able to tolerate 15 hours of therapy a w cantwell: Altered therapy schedule comment: ACUTE INPATIENT REHAB PLAN: Estimated length of stay in days: 14 Anticipated services in acut e inpatient rehab: Rehab nursing 17/10, manager fine, grease machine worker, Occupational therapy, Physical th erapy, Dietitian, Respiratory therapy Acute hospital documents reviewed prior to admis char decision: Acute History/ Physical, Consult notes, Operative reports, Prog ress notes, Lab/diagnostics, Therapy notes, Vital signs, Other ancillary note s CRS ELECTRONIC SIGNATURE: CRS #1 electronic signature: CARI NELSON CRS credentials: RN Date: 10/20/22 Time: 1248 CRS #2 electronic signature: CRS credentials: Date: Time: CRS #3 electronic signature: CRS credentials: Date: Time: Provider Pre-Admit Summary Acute IP rehab admit: criteria met MD determination Based upon my evaluation and review of t he supporting assessment documentation and consultation with the pr eadmission handle machine operator, I have determined, prior to admitting this patient, that there is r easonable expectation that at the time of admission to the IRF, the patient's medical management and rehabilitation needs require an inpatient stay and close physician involvement. Patient can be expected to actively participate in, and benefit from, and intensive rehab therapy prog angelito whose intensity is not provided in lower levels of care. Significant barriers that can only be addressed in an acute inpatient rehab program, including, but not limited to: Complex acute rehab needs: Custom therapy tx albert n, Mgt of complex Co-morb, Multiple consulting MDs, Caregiver has limitatio ns, Med adjustment/mgmt., New medical diagnosis at 1517 RPT #:[id number] END OF REPORT 2022-10-21 [facility] 12:17:00-00:00 [facility] Hospitalist Discharge Summary REPORT#:[id number] REPORT STATUS: Signed DATE:10/21/22 TIME: 7 PATIENT: SWEETIE AMAYA UNIT #: [id number] ROOM/BED: [address] : 47 AGE: 77 SEX: F ATTEND: Bella Hoff MD ADM AUTHOR: Nina Melgar MD * ALL edits or amendments must be made on the Onevest/Orchestrate document * General Information Date of admission: Observation Start Date: Date of admission: 10/11/22 Discharge date: 10/21/22 Admission diagnosis: acute respiratory failure --post procedure severe mitral valve regurgitation HTN HLD CHF -- diastolic SSS, symptomatic bradycardia; CHB -s/p TPM hyponatremia Discharge diagnosis: acute respiratory failure --post procedure severe mitral valve regurgitation HTN HLD CHF -- diastolic SSS, symptomatic bradycardia; CHB -s/p TPM hyponatremia afib RVR Hospital course: acute respiratory failure --post procedure severe mitral valve regurgitation HTN HLD CHF -- diastolic SSS, symptomatic bradycardia; CHB -s/p TPM hyponatremia afib RVR intubated on the vent support --post procedure post mitral valve surgery HTN -- on metoprolol monitor BP HLD --lipitor cardiology consult CV surgeon consult critial care consult monitor in the CVICU afib RVR--post procedure on amiodarone drip NO AC --post surgery SSS-- EP consult pacemaker placement --10/18 1. Mitral valve replacement (27 Mitris valve). 2. Pulmonary vein isolation. 3. Amputation of left atrial appendage. 10/13- she was extubated yesterday she sit on the chair no sob [address] -- she is hemodynamic stable --review lab and image -- case is discussed with nurse 10/14- she sit on the chair -- drainage tube are out -- she feel better -- she is hemodynamic stable -- continue PT/OT continue monitor in CVICU -- review all lab and image 10/15 Continue post-op care, bowel regimen. OOB/a mbulate with PT/OT. 10/16 Had echo today. Continue PT/OT post-op. 10/17- she feel better - she is hemodynamic stable -- continue PT/OT -- rehab evaluation -- review all all lab and image -- case is discussed with nurse 10/18- she feel palpitation -- on amiodarone drip -- EP consult -- pacemaker today -- continue monitor in CVicu -- afib -- control HR -- PT/OT -- review all lab and image 10/19-- she feel tire -- HR is under control --on amiodarone and meto prolol -- transfer to [facility] -- continue PT/OT -- rehab evaluation 10/20- she is weak -- no sob no palpitation -- monitor BP and HR -- continue PT/OT she is stable to discharge to [place]hab [place] Consultants: cardiology, cardiovascular surgery, critical/clubhouse manager Free Text DxA P Notes Free text DxA P notes: acute respiratory failure --post procedure severe mitral valve regurgitation HTN HLD CHF -- diastolic SSS, symptomatic bradycardia; CHB -s/p TPM hyponatremia intubated on the vent support --post procedure post mitral valve surgery HTN -- on metoprolol monitor BP HLD --lipitor cardiology consult CV surgeon consult critial care consult monitor in the CVICU afib RVR--post procedure on amiodarone drip NO AC --post surgery SSS-- EP consult pacemaker placement --10/18 1. Mitral valve replacement (27 Mitris valve). 2. Pulmonary vein isolation. 3. Amputation of left atrial appendage. 10/13- she was extubated yesterday she sit on the chair no sob [address] -- she is hemodynamic stable --review lab and image -- case is discussed with nurse 10/14- she sit on the chair -- drainage tube are out -- she feel better -- she is hemodynamic stable -- continue PT/OT continue monitor in CVICU -- review all lab and image 10/15 Continue post-op care, bowel regimen. OOB/a mbulate with PT/OT. 10/16 Had echo today. Continue PT/OT post-op. 10/17- she feel better - she is hemodynamic stable -- continue PT/OT -- rehab evaluation -- review all all lab and image -- case is discussed with nurse 10/18- she feel palpitation -- on amiodarone drip -- EP consult -- pacemaker today -- continue monitor in CVicu -- afib -- control HR -- PT/OT -- review all lab and image 10/19-- she feel tire -- HR is under control --on amiodarone and met oprolol -- transfer to [facility] -- continue PT/OT -- rehab evaluation 10/20- she is weak -- no sob no palpitation -- monitor BP and HR -- continue PT/OT Med Rec Med Rec Discharge meds: Stop taking the following medications: LISINOPRIL/HCTZ (ZESTORETIC 20/12.5 MG) 1 TAB TA B 1 TABLET ORAL DAILY. amLODIPine (NORVASC) 5 MG TAB 5 MILLIGRAM ORAL DAILY. MELATONIN (MELATONIN) 3 MG TAB 5 MILLIGRAM ORAL BEDTIME. METOPROLOL SUCC XL (TOPROL XL) 50 MG TAB.SA 50 MILLIGRAM ORAL DAILY. ATORVASTATIN (LIPITOR) 20 MG TAB 20 MILLIGRAM ORAL 3X WEEKLY ASCORBIC ACID (VITAMIN C) 1,000 MG TAB 1,000 MILLIGRAM ORAL DAILY. CHOLECALCIFEROL (VITAMIN D3) (VITAMIN D3) 25 MCG (1,000 UNIT) CAP 1,000 UNITS ORAL DAILY. LACTOBACILLUS ACIDOPHILUS (PROBIOTIC ACIDOPHILUS ) 1 CAP CAP 1 CAPSULE ORAL DAILY. BIOTIN (BIOTIN) 10 MG TAB 10 MILLIGRAM ORAL DAILY. Continue taking these medications: OMEPRAZOLE ER (PriLOSEC) 40 MG CAP.DR 40 MILLIGRAM ORAL DAILY. ASPIRIN (ASPIRIN) 81 MG TAB.CHEW 81 MILLIGRAM ORAL DAILY. GABAPENTIN (NEURONTIN) 300 MG CAP 600 MILLIGRAM ORAL BEDTIME. MESALAMINE ER (APRISO) 0.375 GRAM CAP.SR.24H 1.5 GRAM ORAL DAILY. Start taking the following new medications: DOXYCYCLINE MONOHYDRATE (MONODOX) 100 MG CAP 100 MILLIGRAM ORAL EVERY 12 HOURS. Qty = 6 No Refills FERROUS SULFATE (FEOSOL) 325 MG (65 MG IRON) TAB 325 MILLIGRAM ORAL DAILY. Qty = 30 No Refills AMIODARONE (PACERONE) 200 MG TAB 200 MILLIGRAM ORAL TWICE DAILY AT 9AM AND 5PM. Qty = 60 No Refills ATORVASTATIN (LIPITOR) 40 MG TAB 40 MILLIGRAM ORAL 2100 Qty = 30 No Refills METOPROLOL TARTRATE (LOPRESSOR) 50 MG TAB 50 MILLIGRAM ORAL EVERY 12 HOURS. Qty = 30 No Refills amLODIPine (NORVASC) 2.5 MG TAB 5 MILLIGRAM ORAL BEDTIME. Qty = 30 No Refills CAPTOPRIL (CAPOTEN) 12.5 MG TAB 6.25 MILLIGRAM ORAL EVERY 8 HOURS. Qty = 30 No Refills Objective VS/I O Last Documented: Result Date Time Pulse Ox 97 10/21 1202 B/P 184/82 10/21 1202 B/P Mean 0.0 10/21 1202 O2 Delivery Room air 10/21 1202 Temp 36.9 10/21 1202 Pulse 61 10/21 1202 Resp 18 10/21 1202 O2 Flow Rate 4 10/20 2000 FiO2 28 10/18 0342 24 hour I O ending at 0700: 10/21 0700 10/20 1900 Intake Total 500.00 Output Total 550 1050 Balance -550 -550.00 Intake, IV 50.00 Intake, Oral 450 Number 1 1 Bowel Movements Number Voids 2 3 Output, Urine 550 1050 Patient 77.3 kg Weight Weight Standing scale Measurement Method General appearance: alert, awake, oriented Head/Eyes: atraumatic, normal conjunctiva/sclera , normal eyelids/periorb. ENT: intubated Neck: full range of motion, non-tender Cardiovascular: normal heart sounds, regular rat e rhythm Respiratory: clear to auscultation Abdomen: non-tender, normal bowel sounds, soft, no distention Extremities: no edema Neuro/CHARGING MANIPULATOR: alert, oriented X 3, CNII-XII intact, normal speech, no motor deficits, no sensory deficits Results Findings/Data: Laboratory Tests: 10/21 10/20 0404 1232 Chemistry Sodium (134 - 147 mEq/L) 127 L 126 L Potassium (3.4 - 5.0 mEq/L) 3.5 3.5 Chloride (100 - 108 mEq/L) 91 L 91 L Carbon Dioxide (21 - 33 mEq/l) 32 31 Anion Gap (0 - 20) 8 7 BUN (7 - 18 mg/dL) 10 13 Creatinine (0.6 - 1.3 mg/dL) 0.8 0.8 Glomerular Filtr Rate (70 - 80) 76.8 76.8 Glucose (70 - 110 mg/dL) 89 116 H Calcium (8.0 - 10.5 mg/dL) 8.9 8.3 Magnesium (1.80 - 2.40 mg/dL) 2.02 1.68 L Hematology WBC (4.5 - 11.0 x10 3/uL) 11.7 H 14.3 H RBC (3.54 - 5.02 x10 6/uL) 2.88 L 2.91 L Hgb (11.0 - 15.0 g/dL) 8.1 L 8.3 L Hct (33.0 - 45.0 %) 24.7 L 24.9 L MCV (81.0 - 99.0 fL) 85.8 85.6 MCH (27.0 - 33.0 pg) 28.1 28.5 MCHC (33.0 - 37.0 g/dL) 32.8 L 33.3 RDW (11.5 - 14.5 %) 15.0 H 14.9 H Plt Count (150 - 400 x10 3/uL) 416 H 378 MPV (7.0 - 9.0 fL) 9.8 H 9.2 H Neut % (Auto) (56.0 - 77.0 %) 77.0 79.5 H Lymph % (Auto) (14.0 - 32.0 %) 9.9 L 8.9 L Nelson % (Auto) (4.8 - 9.0 %) 6.8 6.7 Eos % (Auto) (0.3 - 3.7 %) 5.0 H 3.5 Baso % (Auto) (0.0 - 2.0 %) 0.8 0.7 Neut # (Auto) (2.0 - 7.6 x10 3/uL) 9.00 H 11.34 H Lymph # (Auto) (1.0 - 3.8 x10 3/uL) 1.16 1.27 Nelson # (Auto) (0.1 - 0.8 x10 3/uL) 0.80 0.95 H Eos # (Auto) (0.0 - 0.2 x10 3/uL) 0.59 H 0.50 H Baso # (Auto) (0.0 - 0.2 x10 3/uL) 0.09 0.10 Abs Immat Gran (auto) (0.00 - 0.03 x10 3/uL) 0. 06 H 0.10 H Add Manual Diff NO NO Immature Gran % (0.0 - 2.0 %) 0.5 0.7 Nucleated RBC % (0 - 0 %) 0.0 0.1 H Nucleated RBCs # (Man) (0.0 - 0.1 x10 3/uL) 0.0 0 0.02 Discharge Instructions PCP Discharge to: Inpatient Rehab Facility Additional Discharge Routines: Attending Follow- Up Diet: Cardiac Activity: As Tolerated Follow-up Appointments Attending Physician: Attending Physician: Paras Vidales MD Attending physician follow up timeframe: In 1-2 weeks Quality: Discharge Current Medications Current medication review: Current Medications Sig/Paulette Start time Last Medication Dose Route Stop Time Status Admin Ipratropium [employer] 500 MCG RTQ2H PRN PRN 10/15 1022 AC INH 11/14 1021 Cyanocobalamin 500 MCG DAILY 10/15 09 AC PO 11/14 0859 Ferrous Sulfate 325 MG DAILY 10/15 09 AC PO 11/14 0859 Bisacodyl 10 MG ONCE PRN 10/14 1200 AC RECTAL 11/13 1159 Magnesium Hydroxide 30 ML ONCE PRN 10/14 1200 A C PO Atorvastatin Calcium 40 MG 10/13 AC PO 11/12 2058 Polyethylene Glycol 17 GM DAILY 10/13 0900 AC PO 11/12 0859 Vancomycin HCl 1,000 MG Q12H 10/12 2229 CAN Sodium Chloride 250 ML IV 10/13 112 Vancomycin HCl 1,000 MG Q12H 10/12 2229 AC Sodium Chloride 250 ML IV 10/13 1129 Atorvastatin Calcium 20 MG MoWeFr 10/12 2099 DC PO 11/11 2058 Docusate Sodium 100 MG BID 10/12 2099 AC 10/12 PO 11/11 Gabapentin 200 MG BID 10/12 2099 AC 10/12 PO 10/17 09 195 Metoprolol Tartrate 12.5 MG Q12HR 10/12 2099 AC PO 11/11 2058 Sennosides 17.2 MG BEDTIME 10/12 2099 AC 10/12 PO 11/11 Oxycodone HCl 5 MG Q4H PRN PRN 10/12 174 AC PO 10/17 174 Oxycodone HCl 10 MG Q4H PRN PRN 10/12 1745 AC PO 10/17 174 Aspirin 81 MG DAILY 10/12 1622 AC 10/12 PO 11/11 1621 1742 Fentanyl Citrate 25 MCG ONCE ONE 10/12 1545 DC 10/12 IV 10/12 1546 1557 Amiodarone HCl 200 MG TID 10/12 1500 AC 10/12 PO 11/11 1459 1742 Mupirocin 1 APPLIC BID 10/12 1352 AC 10/12 NASAL 10/16 2101 1957 Albumin Human 250 ML Q1H 10/12 1350 DC 10/12 IV 10/12 1549 1400 Cefazolin Sodium 3 GM ONCE ONE 10/12 1315 AC Sodium Chloride 250 ML IV 10/13 0914 1729 Ipratropium [employer] 500 MCG RTQ4H 10/12 1200 AC 10/12 INH 10/15 1022 2005 Parenteral 1,000 ML .STK-MED ONE 10/12 1122 DC Electrolytes IV Potassium Chloride 200 ML .STK-MED ONE 10/12 10 45 DC IV Vancomycin HCl 0 .STK-MED ONE 10/12 1035 DC .ROUTE Acetaminophen 650 MG Q4H PRN PRN 10/12 1030 AC 10/12 PO 11/11 1029 1955 Acetaminophen 650 MG Q4H PRN PRN 10/12 1030 AC RECTAL 11/11 1029 Albumin Human 25 GM ASDIR PRN 10/12 1030 AC IV 10/13 1022 Calcium Chloride 1 GM ASDIR PRN 10/12 1030 AC IV 11/11 1029 Dextrose/Water 125 ML ASDIR PRN 10/12 1030 CKD IV 11/11 1029 Dextrose/Water 250 ML ASDIR PRN 10/12 1030 CKD IV 11/11 1029 Epinephrine 4 MG ASDIR 10/12 1030 AC Dextrose/Water 246 ML IV 11/11 1029 Glucagon 1 MG ASDIR PRN 10/12 1030 AC IM 11/11 1029 Insulin Human Regular 100 UNIT ASDIR 10/12 1030 CKD Sodium Chloride 99 ML IV 11/11 1029 Magnesium Sulfate 100 ML ASDIR PRN 10/12 1030 A C IV 11/11 1029 Magnesium Sulfate 50 ML ASDIR PRN 10/12 1030 AC IV 11/11 1029 Magnesium Sulfate/ 100 ML ASDIR PRN 10/12 1030 AC Dextrose IV 11/11 1029 Morphine Sulfate 4 MG Q2H PRN PRN 10/12 1030 DC IV 10/17 1029 Nitroglycerin/ 250 ML ASDIR 10/12 1030 AC Dextrose IV 11/11 1029 Norepinephrine 250 ML TITRATE 10/12 1030 AC Bitartrate IV 11/11 1029 Ondansetron HCl 4 MG Q6H PRN PRN 10/12 1030 AC IV 11/11 1029 Oxycodone HCl 5 MG Q4H PRN PRN 10/12 1030 DC PO 10/17 1029 Oxycodone HCl 10 MG Q4H PRN PRN 10/12 1030 DC 0 10/12 PO 10/17 1029 1745 Potassium Chloride 100 ML ASDIR PRN 10/12 1030 AC IV 11/11 1029 Sodium Bicarbonate 50 MEQ ASDIR PRN 10/12 1030 AC IV 11/11 1029 Sodium Chloride 1,000 ML .Q20H 10/12 1030 AC IV 11/11 1029 Sodium Chloride 250 ML Q24H 10/12 1030 AC IV 11/11 1029 Amiodarone HCl 0 .STK-MED ONE 10/12 1018 DC IV Metoclopramide HCl 0 .STK-MED ONE 10/12 929 DC .ROUTE Ondansetron HCl 0 .STK-MED ONE 10/12 929 DC .ROUTE Amlodipine Besylate 5 MG DAILY 10/12 0900 DC PO 11/11 0859 Aspirin 81 MG DAILY 10/12 09 DC PO 11/11 0859 Hydrochlorothiazide 12.5 MG DAILY 10/12 0900 DC PO 11/11 0859 Lisinopril 20 MG DAILY 10/12 0900 DC Hydrochlorothiazide 12.5 MG PO 11/11 0859 Lisinopril 20 MG DAILY 10/12 0900 DC PO 11/11 0859 Metoprolol Succinate 50 MG DAILY 10/12 0900 CAN PO 11/11 0859 Mesalamine 800 MG AC BK DIN 10/12 0730 DC PO 11/11 0729 Fentanyl Citrate 0 .STK-MED ONE 10/12 06 DC IV Propofol 20 ML .STK-MED ONE 10/12 633 DC IV Dexamethasone Sodium 0 .STK-MED ONE 10/12 618 DC Phosphate .ROUTE Esmolol HCl 0 .STK-MED ONE 10/12 618 DC IV Lidocaine HCl 0 .STK-MED ONE 10/12 618 DC .ROUTE Ondansetron HCl 0 .STK-MED ONE 10/12 618 DC .ROUTE Rocuronium [employer] 0 .STK-MED ONE 10/12 618 D C IV Sodium Chloride 100 ML .STK-MED ONE 10/12 618 DC IV Pantoprazole 40 MG 0600 10/12 06 DC 10/12 PO 11/11 0559 0512 Vancomycin HCl 0 .STK-MED ONE 10/12 0537 DC IV Cefazolin Sodium 0 .STK-MED ONE 10/12 0535 DC .ROUTE Famotidine 0 .STK-MED ONE 10/12 534 DC IV Milrinone Lactate/ 0 .STK-MED ONE 10/12 0435 DC Dextrose IV Protamine Sulfate 0 .STK-MED ONE 10/12 0435 DC IV Sodium Chloride 250 ML .STK-MED ONE 10/12 534 DC IV Epinephrine HCl 250 ML .STK-MED ONE 10/12 533 DC IV Insulin Human Regular 100 ML .STK-MED ONE 10/12 533 DC IV Aminocaproic Acid 0 .STK-MED ONE 10/12 0533 DC IV Heparin Sodium 0 .STK-MED ONE 10/12 0533 DC .ROUTE Nitroglycerin/ 250 ML .STK-MED ONE 10/12 0533 D C Dextrose IV Norepinephrine 250 ML .STK-MED ONE 10/12 0533 D C Bitartrate IV Ropivacaine 0 .STK-MED ONE 10/12 05 DC .ROUTE Calcium Chloride 0 .STK-MED ONE 10/12 0532 DC IV Magnesium Sulfate 0 .STK-MED ONE 10/12 0532 DC .ROUTE Lactated Ringer's 1,000 ML PREOP ONCALL 10/12 0 530 DC IV 11/11 2358 Lidocaine HCl 2 ML PREOP ONCALL 10/12 0530 DC LOCAL 11/11 235 Lidocaine HCl 2 ML PREOP ONCALL 10/12 0530 DC LOCAL 11/11 235 Sodium Chloride 500 ML PREOP ONCALL 10/12 05 DC IV 11/11 235 Sodium Chloride 5 ML ASDIR PRN 10/12 05 DC IV 11/11 05 Sodium Chloride 10 ML ASDIR PRN 10/12 05 DC IV 11/11 05 Sodium Chloride 250 ML ASDIR PRN 10/12 0530 DC IV 11/11 05 Clindamycin 50 ML PREOP ONCALL 10/12 0500 DC Phosphate/Dextrose IV 10/12 2359 Metoprolol Tartrate 6.25 MG ONCE ONE 10/12 0500 DC PO 10/12 0501 Vancomycin HCl 1,250 MG PREOP ONCALL 10/12 0500 DC Sodium Chloride 250 ML IV 10/12 235 Albumin Human 100 ML .STK-MED ONE 10/12 045 DC IV Heparin Sodium 0 .STK-MED ONE 10/12 0455 DC .ROUTE Sodium Chloride 100 ML .STK-MED ONE 10/12 454 DC IV Lidocaine HCl 0 .STK-MED ONE 10/12 045 DC IV Sodium Bicarbonate 0 .STK-MED ONE 10/12 045 DC IV Magnesium Sulfate 0 .STK-MED ONE 10/12 045 DC IV Phenylephrine HCl 0 .STK-MED ONE 10/12 045 DC .ROUTE Acetaminophen 650 MG Q6H PRN PRN 10/11 2114 DC 10/11 PO 11/10 Gabapentin 600 MG BEDTIME 10/11 2100 DC 10/11 PO 11/10 Melatonin 5 MG BEDTIME 10/11 2100 DC 10/11 PO 11/10 Acetaminophen 1,000 MG PREOP ONCALL 10/11 1700 DC 10/12 PO 11/10 1659 0604 Gabapentin 200 MG PREOP ONCALL 10/11 1700 DC PO 11/10 2358 0604 Atropine Sulfate 0.5 MG ASDIR PRN 10/11 1400 DC IV 10/12 1357 Sodium Chloride 500 ML ASDIR PRN 10/11 1400 DC IV 10/12 1357 Home Medications: MELATONIN 5 MG PO BEDTIME MESALAMINE ER (APRISO) 1.5 GM PO DAILY LISINOPRIL/HCTZ (ZESTORETIC 20/12.5 MG) 1 TAB PO DAILY amLODIPine (NORVASC) 5 MG PO DAILY OMEPRAZOLE ER (PriLOSEC) 40 MG PO DAILY ASPIRIN 81 MG PO DAILY METOPROLOL SUCC XL (TOPROL XL) 50 MG PO DAILY ATORVASTATIN (LIPITOR) 20 MG PO 3X WEEKLY ASCORBIC ACID (VITAMIN C) 1,000 MG PO DAILY CHOLECALCIFEROL (VITAMIN D3) (VITAMIN D3) 1,000 UNITS PO DAILY LACTOBACILLUS ACIDOPHILUS (PROBIOTIC ACIDOPHILUS ) 1 CAP PO DAILY BIOTIN 10 MG PO DAILY GABAPENTIN (NEURONTIN) 600 MG PO BEDTIME I attest that the foregoing medication list in t he medical record is true, accurate, and complete to the best of my knowled ge. Electronically Signed by Nina Melgar MD on 3 at 1219 RPT #:[id number] END OF REPORT 2022-10-21 [facility] 10:53:00-00:00 [facility] ([facility] Cardiology Progress Note REPORT#:[id number] REPORT STATUS: Signed DATE:10/21/22 TIME: 1053 PATIENT: SWEETIE AMAYA UNIT #: [id number] ROOM/BED: [place] [address] : 47 AGE: 77 SEX: F ATTEND: Bella Hoff MD ADM AUTHOR: Amarilis Valentin CNP * ALL edits or amendments must be made on the Onevest/Orchestrate document * Subjective Patient reports: No: complaints. Objective General VS/I O: 24 hour I O ending at 0700: 10/21 0700 10/20 1900 Intake Total 500.00 Output Total 550 1050 Balance -550 -550.00 Intake, IV 50.00 Intake, Oral 450 Number 1 1 Bowel Movements Number Voids 2 3 Output, Urine 550 1050 Patient 77.3 kg Weight Weight Standing scale Measurement Method Vital Signs: Date Time Temp Pulse Resp B/P B/P Pulse O2 O2 Flow FiO2 Mean Ox Delivery Rate 10/21 0741 36.9 66 12 154/76 102.3 97 Room air 10/21 0427 36.9 62 13 169/77 0.0 99 Room air 10/20 2348 37.0 63 13 131/66 87.2 96 Room air 10/20 2000 Nasal 4 cannula 10/20 1843 36.8 63 13 159/75 0.0 99 Room air 10/20 1635 36.6 60 16 167/84 0.0 98 10/20 1210 36.6 60 18 165/73 0.0 100 PATIENT WEIGHT: Weight (lb): 166 Weight (oz): 3.66 Weight (kg): 75.400 Medications: Active Meds + DC'd Last 24 Hrs Captopril (CAPOTEN) 12.5 MG Q8HR PO (UNV) Metoprolol Tartrate (LOPRESSOR) 50 MG Q12HR PO Promethazine HCl (PROMETHAZINE HCL) 12.5 MG AC H S PO Simethicone (MYLANTA GAS) 80 MG QID PRN PRN PO Pantoprazole (PROTONIX) 40 MG DAILY 0600 PO Ondansetron HCl (ZOFRAN) 4 MG Q4H PRN PRN IV Amiodarone HCl (CORDARONE) 200 MG BID 9A 5P PO Doxycycline Monohydrate (DOXYCYCLINE MONOHYDRATE ) 100 MG Q12HR PO Metoprolol Tartrate (LOPRESSOR) 25 MG Q12HR PO ( DC) Amiodarone HCl (AMIODARONE HCL) 450 MG ASDIR IV (CKD) Dextrose/Water (D5%W NON-DEHP) 250 ML Amlodipine Besylate (NORVASC) 5 MG BEDTIME PO Furosemide (LASIX 20MG INJ) 20 MG BID 9A 5P IV Hydrocodone Bitart/Acetaminophen (NORCO 5/325) 2 TAB Q4H PRN PRN PO Ipratropium [employer] (ATROVENT) 500 MCG RTQ2H PRN PRN INH Cyanocobalamin (Vitamin B-12 500 mcg tab) 500 MC G DAILY PO Ferrous Sulfate (FERROUS SULFATE) 325 MG DAILY P O Bisacodyl (DULCOLAX) 10 MG ONCE PRN RECTAL Captopril (CAPOTEN) 6.25 MG Q8HR PO (DCr) Atorvastatin Calcium (LIPITOR) 40 MG 2100 PO Mesalamine (DELZICOL 400MG CAP DR.) 800 MG BID P O Polyethylene Glycol (MIRALAX) 17 GM DAILY PO Melatonin (Melatonin) 6 MG BEDTIME PO Docusate Sodium (COLACE) 100 MG BID PO Sennosides (Senna Lax 8.6 MG TABLET) 17.2 MG BED TIME PO Aspirin (ASPIRIN) 81 MG DAILY PO Acetaminophen (TYLENOL) 650 MG Q4H PRN PRN PO Acetaminophen (TYLENOL) 650 MG Q4H PRN PRN RECTA L Calcium Chloride (CALCIUM CHLORIDE) 1 GM ASDIR P RN IV Epinephrine (ADRENALIN CHLORIDE) 4 MG ASDIR IV Dextrose/Water (DEXTROSE 5% WATER) 246 ML Glucagon (GLUCAGON) 1 MG ASDIR PRN IM Magnesium Sulfate (MAGNESIUM SULFATE 4GM/SWFI 10 0ML) 100 ML ASDIR PRN IV Magnesium Sulfate (MAGNESIUM SULFATE 2GM/SWFI 50 ML) 50 ML ASDIR PRN IV Magnesium Sulfate/Dextrose (MAGNESIUM SULFATE 1G M/D5W 100ML) 100 ML ASDIR PRN IV Nitroglycerin/Dextrose (NITROGLYCERIN 50,000MCG/ D5W 250ML) 250 ML ASDIR IV Norepinephrine Bitartrate (NOREPINEPHRINE 8 MG/N S 250 ML) 250 ML TITRATE IV Potassium Chloride (KCL 20MEQ/SWFI 100ML) 100 ML ASDIR PRN IV Sodium Bicarbonate (SODIUM BICARBONATE) 50 MEQ A SDIR PRN IV Sodium Chloride (SODIUM CHLORIDE 0.9%) 1,000 ML .Q20H IV Sodium Chloride (SODIUM CHLORIDE 0.9%) 250 ML Q2 4H IV Physical Exam ENT: normal nose Neck: non-tender, no JVD Cardiovascular: CV assessment: regular rate and rhythm Murmur assessment: heart murmur Respiratory: decreased breath sounds, on oxygen, no distress Abdomen: soft, non-tender, normal bowel sounds Genitourinary: no flank pain, no urinary cathete r Upper extremity: Right radial site: intact, no bleeding, no drai nage, no ecchymosis, no hematoma Lower extremity: LE assessment: no edema Musculoskeletal: normal inspection Neuro/CHARGING MANIPULATOR: alert, oriented X 3, normal speech Skin: dry, intact Psychiatry: normal affect, normal judgment/insig ht, normal mood Results Findings/Data: Laboratory Tests 10/21 10/20 0404 1232 Chemistry Sodium (134 - 147 mEq/L) 127 L 126 L Potassium (3.4 - 5.0 mEq/L) 3.5 3.5 Chloride (100 - 108 mEq/L) 91 L 91 L Carbon Dioxide (21 - 33 mEq/l) 32 31 Anion Gap (0 - 20) 8 7 BUN (7 - 18 mg/dL) 10 13 Creatinine (0.6 - 1.3 mg/dL) 0.8 0.8 Glomerular Filtr Rate (70 - 80) 76.8 76.8 Glucose (70 - 110 mg/dL) 89 116 H Calcium (8.0 - 10.5 mg/dL) 8.9 8.3 Magnesium (1.80 - 2.40 mg/dL) 2.02 1.68 L Laboratory Tests 10/21 10/20 0404 1232 Hematology WBC (4.5 - 11.0 x10 3/uL) 11.7 H 14.3 H RBC (3.54 - 5.02 x10 6/uL) 2.88 L 2.91 L Hgb (11.0 - 15.0 g/dL) 8.1 L 8.3 L Hct (33.0 - 45.0 %) 24.7 L 24.9 L MCV (81.0 - 99.0 fL) 85.8 85.6 MCH (27.0 - 33.0 pg) 28.1 28.5 MCHC (33.0 - 37.0 g/dL) 32.8 L 33.3 RDW (11.5 - 14.5 %) 15.0 H 14.9 H Plt Count (150 - 400 x10 3/uL) 416 H 378 MPV (7.0 - 9.0 fL) 9.8 H 9.2 H Neut % (Auto) (56.0 - 77.0 %) 77.0 79.5 H Lymph % (Auto) (14.0 - 32.0 %) 9.9 L 8.9 L Nelson % (Auto) (4.8 - 9.0 %) 6.8 6.7 Eos % (Auto) (0.3 - 3.7 %) 5.0 H 3.5 Baso % (Auto) (0.0 - 2.0 %) 0.8 0.7 Neut # (Auto) (2.0 - 7.6 x10 3/uL) 9.00 H 11.34 H Lymph # (Auto) (1.0 - 3.8 x10 3/uL) 1.16 1.27 Nelson # (Auto) (0.1 - 0.8 x10 3/uL) 0.80 0.95 H Eos # (Auto) (0.0 - 0.2 x10 3/uL) 0.59 H 0.50 H Baso # (Auto) (0.0 - 0.2 x10 3/uL) 0.09 0.10 Abs Immat Gran (auto) (0.00 - 0.03 x10 3/uL) 0. 06 H 0.10 H Add Manual Diff NO NO Immature Gran % (0.0 - 2.0 %) 0.5 0.7 Nucleated RBC % (0 - 0 %) 0.0 0.1 H Nucleated RBCs # (Man) (0.0 - 0.1 x10 3/uL) 0.0 0 0.02 Laboratory Tests 10/21 10/20 0404 1232 Chemistry Magnesium (1.80 - 2.40 mg/dL) 2.02 1.68 L Radiology data: Recent Impressions: RADIOLOGY - XR ABDOMEN 1V (KUB) 10/20 1837 Report Impression - Status: SIGNED Entered: 10/21/2022 0614 IMPRESSION: Nonspecific, nonobstructive bowel gas pattern. N o bowel dilatation. Impression By: [email or web address] - Pankaj Han M.D. RADIOLOGY - XR CHEST 1 V 10/21 0603 Report Impression - Status: SIGNED Entered: 10/21/2022 0800 IMPRESSION: Grossly stable exam. Impression By: [email or web address] - Juan Reilly M.D. ULTRASOUND - DUP VEIN ANGI 10/21 0818 Report Impression - Status: SIGNED Entered: 10/21/2022 1002 IMPRESSION: No evidence of deep vein thrombosis. Superficial venous thrombosis within cephalic ve ins bilaterally. Impression By: [email or web address] - Yenny Nam M.D. Results: labs reviewed, vital signs reviewed, [facility] personally rev'd Telemetry Interpretation: paced Diagnosis, Assessment Plan Plan discussed with: patient, spouse/partner, nu rse Free Text DxA P Notes Free Text DxA P Notes: 77 YO female with PMHx of hy pertension, hyperlipidemia, carotid artery disease s /p R CEA who has been having progressively worse madeleine shortness of breath. She was found to have severe mitral valve regurgitat ion. 1. Severe mitral valve regurgitation s/p MVR, PV I, and ALAA * post op care per CTS and ICC * continue ASA * repeat echo LVEF preserved * euvolemic, DC IV lasix, change to PO 20 mg chanda ly * Upper arm venous doppler - no DVT 2. Hypertension * BP remains suboptimal * continue amlodipine 5mg daily, metoprolol 50mg BID, increase Captopril to 12.5mg TID * monitor BP closely and adjust meds as needed 3. Hyperlipidemia * continue statin 4. Complete heart block/Sick sinus syndrome * s/p ppm placement 5. Post-op afib RVR (10/18) - converted to sinus * continue Amio 200 mg PO BID and metoprolol 50m g BID * no need for AC - patient had ALAA during surge ry Okay to transfer to Rehab MDM by Dr. Bowden. at 1105 RPT #:[id number] END OF REPORT 2022-10-21 [facility] 10:22:00-00:00 [facility] ([facility] Rehab Progress Note REPORT#:[id number] REPORT STATUS: Signed DATE:10/21/22 TIME: 1022 PATIENT: SWEETIE AMAYA UNIT #: [id number] ROOM/BED: 3361-1 : 47 AGE: 77 SEX: F ATTEND: Bella Hoff MD ADM AUTHOR: Cinthya Burger PA-C * ALL edits or amendments must be made on the [employer] document * Subjective Chief complaint: Pt seen and examined. No acute distress. Lying i n bed. States that she is wanting her Gabapentin restrated. She takes it a t night for her RLS. Objective General VS: Vital Signs: Date Time Temp Pulse Resp B/P B/P Pulse O2 O2 F low FiO2 Mean Ox Delivery Rate 10/21 0741 98.4 66 12 154/76 102.3 97 Room air 10/21 0427 98.4 62 13 169/77 0.0 99 Room air 10/20 2348 98.6 63 13 131/66 87.2 96 Room air 10/20 2000 Nasal 4 cannula 10/20 1843 98.2 63 13 159/75 0.0 99 Room air 10/20 1635 97.9 60 16 167/84 0.0 98 10/20 1210 97.9 60 18 165/73 0.0 100 PATIENT WEIGHT: Weight (lb): 166 Weight (oz): 3.66 Weight (kg): 75.400 Medications: Active Meds + DC'd Last 24 Hrs Furosemide (LASIX) 20 MG DAILY PO Gabapentin (NEURONTIN) 600 MG BEDTIME PO Captopril (CAPOTEN) 12.5 MG Q8HR PO Metoprolol Tartrate (LOPRESSOR) 50 MG Q12HR PO Promethazine HCl (PROMETHAZINE HCL) 12.5 MG AC H S PO Simethicone (MYLANTA GAS) 80 MG QID PRN PRN PO Pantoprazole (PROTONIX) 40 MG DAILY 0600 PO Ondansetron HCl (ZOFRAN) 4 MG Q4H PRN PRN IV Amiodarone HCl (CORDARONE) 200 MG BID 9A 5P PO Doxycycline Monohydrate (DOXYCYCLINE MONOHYDRATE ) 100 MG Q12HR PO Amiodarone HCl (AMIODARONE HCL) 450 MG ASDIR IV (DC) Dextrose/Water (D5%W NON-DEHP) 250 ML Amlodipine Besylate (NORVASC) 5 MG BEDTIME PO Furosemide (LASIX 20MG INJ) 20 MG BID 9A 5P IV ( DC) Hydrocodone Bitart/Acetaminophen (NORCO 5/325) 2 TAB Q4H PRN PRN PO Ipratropium [employer] (ATROVENT) 500 MCG RTQ2H PRN PRN INH Cyanocobalamin (Vitamin B-12 500 mcg tab) 500 MC G DAILY PO Ferrous Sulfate (FERROUS SULFATE) 325 MG DAILY P O Bisacodyl (DULCOLAX) 10 MG ONCE PRN RECTAL Captopril (CAPOTEN) 6.25 MG Q8HR PO (DC) Atorvastatin Calcium (LIPITOR) 40 MG 2100 PO Mesalamine (DELZICOL 400MG CAP DR.) 800 MG BID P O Polyethylene Glycol (MIRALAX) 17 GM DAILY PO Melatonin (Melatonin) 6 MG BEDTIME PO Docusate Sodium (COLACE) 100 MG BID PO Sennosides (Senna Lax 8.6 MG TABLET) 17.2 MG BED TIME PO Aspirin (ASPIRIN) 81 MG DAILY PO Acetaminophen (TYLENOL) 650 MG Q4H PRN PRN PO Acetaminophen (TYLENOL) 650 MG Q4H PRN PRN RECTA L Calcium Chloride (CALCIUM CHLORIDE) 1 GM ASDIR P RN IV Epinephrine (ADRENALIN CHLORIDE) 4 MG ASDIR IV Dextrose/Water (DEXTROSE 5% WATER) 246 ML Glucagon (GLUCAGON) 1 MG ASDIR PRN IM Magnesium Sulfate (MAGNESIUM SULFATE 4GM/SWFI 10 0ML) 100 ML ASDIR PRN IV Magnesium Sulfate (MAGNESIUM SULFATE 2GM/SWFI 50 ML) 50 ML ASDIR PRN IV Magnesium Sulfate/Dextrose (MAGNESIUM SULFATE 1G M/D5W 100ML) 100 ML ASDIR PRN IV Nitroglycerin/Dextrose (NITROGLYCERIN 50,000MCG/ D5W 250ML) 250 ML ASDIR IV Norepinephrine Bitartrate (NOREPINEPHRINE 8 MG/N S 250 ML) 250 ML TITRATE IV Potassium Chloride (KCL 20MEQ/SWFI 100ML) 100 ML ASDIR PRN IV Sodium Bicarbonate (SODIUM BICARBONATE) 50 MEQ A SDIR PRN IV Sodium Chloride (SODIUM CHLORIDE 0.9%) 1,000 ML .Q20H IV Sodium Chloride (SODIUM CHLORIDE 0.9%) 250 ML Q2 4H IV Functional Progress Functional progress: OT: Precautions: Cardiac Sternal Fall L PM Safety addressed through use of: Verbal Cues Tactile Cues Observed precautions for: SEE ABOVE ACTIVITIES PERFORMED: Supine to/from sitting: Moderate Assistance Sit to Stand: Moderate Assistance Activities Performed Cmt: PATIENT COMPLETED BED MOBILITY XFERS TO EOB, SIT<>STAND XFERS, DYNAMIC STANDING TASKS, COMMUNITY MOBILITY 75X1, AND RETURNS TO BED SUPINE W HOB ELEVATED. Assistive Device Used: Staff Support TRANSPORT CHAIR HANDLES Balance: Fair Safety Awareness: Good Effects of Treatment: Cardio tolerance improved Circulation improved Impro. postural alignment Comments: PATIENT GOT NAUSEATED DURING MOBILITY TASKS AND NEEDS TO RETURN TO BED. EDUCATED PATIENT ON PACEMAKER PRECAUTIONS. Review OT Plan of Care: Yes Document OT charges: FT/THERAP. ACTIVITY [id number] If this is the patient's last treatment, this e ntry Start Time: 1001 Stop Time: 1026 Treatment jez e ( minutes): 0:25 Completed by: Obie Moyer Physical Exam General appearance: alert, awake HEENT: anicteric, mucosal membranes moist, scler a clear Neck: supple, no JVD Cardiovascular: tachycardia, S1/S2, external pac emaker Respiratory: aerating well, clear bilaterally Abdomen: bowel sounds present, non-distended, so ft, non-tender Skin: dry, intact, no rash Musculoskeletal - general: Musculoskeletal - general: swelling, joints nor mal, range of motion normal, strength testing normal, no swelling Neuro/CHARGING MANIPULATOR: alert, oriented X 3, normal speech, n o motor deficits, no sensory deficits Results Findings/Data: Laboratory Tests: 10/21 10/20 0404 1232 Chemistry Sodium (134 - 147 mEq/L) 127 L 126 L Potassium (3.4 - 5.0 mEq/L) 3.5 3.5 Chloride (100 - 108 mEq/L) 91 L 91 L Carbon Dioxide (21 - 33 mEq/l) 32 31 Anion Gap (0 - 20) 8 7 BUN (7 - 18 mg/dL) 10 13 Creatinine (0.6 - 1.3 mg/dL) 0.8 0.8 Glomerular Filtr Rate (70 - 80) 76.8 76.8 Glucose (70 - 110 mg/dL) 89 116 H Calcium (8.0 - 10.5 mg/dL) 8.9 8.3 Magnesium (1.80 - 2.40 mg/dL) 2.02 1.68 L Hematology WBC (4.5 - 11.0 x10 3/uL) 11.7 H 14.3 H RBC (3.54 - 5.02 x10 6/uL) 2.88 L 2.91 L Hgb (11.0 - 15.0 g/dL) 8.1 L 8.3 L Hct (33.0 - 45.0 %) 24.7 L 24.9 L MCV (81.0 - 99.0 fL) 85.8 85.6 MCH (27.0 - 33.0 pg) 28.1 28.5 MCHC (33.0 - 37.0 g/dL) 32.8 L 33.3 RDW (11.5 - 14.5 %) 15.0 H 14.9 H Plt Count (150 - 400 x10 3/uL) 416 H 378 MPV (7.0 - 9.0 fL) 9.8 H 9.2 H Neut % (Auto) (56.0 - 77.0 %) 77.0 79.5 H Lymph % (Auto) (14.0 - 32.0 %) 9.9 L 8.9 L Nelson % (Auto) (4.8 - 9.0 %) 6.8 6.7 Eos % (Auto) (0.3 - 3.7 %) 5.0 H 3.5 Baso % (Auto) (0.0 - 2.0 %) 0.8 0.7 Neut # (Auto) (2.0 - 7.6 x10 3/uL) 9.00 H 11.34 H Lymph # (Auto) (1.0 - 3.8 x10 3/uL) 1.16 1.27 Nelson # (Auto) (0.1 - 0.8 x10 3/uL) 0.80 0.95 H Eos # (Auto) (0.0 - 0.2 x10 3/uL) 0.59 H 0.50 H Baso # (Auto) (0.0 - 0.2 x10 3/uL) 0.09 0.10 Abs Immat Gran (auto) (0.00 - 0.03 x10 3/uL) 0. 06 H 0.10 H Add Manual Diff NO NO Immature Gran % (0.0 - 2.0 %) 0.5 0.7 Nucleated RBC % (0 - 0 %) 0.0 0.1 H Nucleated RBCs # (Man) (0.0 - 0.1 x10 3/uL) 0.0 0 0.02 Radiology data: Recent Impressions: RADIOLOGY - XR ABDOMEN 1V (KUB) 10/20 1837 Report Impression - Status: SIGNED Entered: 10/21/2022 0614 IMPRESSION: Nonspecific, nonobstructive bowel gas pattern. N o bowel dilatation. Impression By: [email or web address] - Pankaj Han M.D. RADIOLOGY - XR CHEST 1 V 10/21 0603 Report Impression - Status: SIGNED Entered: 10/21/2022 0800 IMPRESSION: Grossly stable exam. Impression By: [email or web address] - Juan Reilly M.D. ULTRASOUND - DUP VEIN ANGI 10/21 0818 Report Impression - Status: SIGNED Entered: 10/21/2022 1002 IMPRESSION: No evidence of deep vein thrombosis. Superficial venous thrombosis within cephalic ve ins bilaterally. Impression By: [email or web address] - Yenny Nam M.D. Diagnosis, Assessment Plan Problem List/A P: 1. S/P CABG (coronary artery bypass graft) 2. S/P placement of cardiac pacemaker Free Text A P: Severe mitral regurgitation status post MVR on Acute pulmonary insufficiency following major ca rdiothoracic surgery Cardiogenic shock Acute blood loss anemia Metabolic acidosis Hypokalemia Sick Sinus Syndrome Hx Asthma GERD HTN P A FIB Plan: PT/OT consulted. She will need to be NWB to the LUE along with her sternal precautions. Continue to work on weaning O2 as t olerated. Therapy to work on OOB daily to the chair, zepeda sfers, progressive gait, adls and etc. Will see how she does post PPM with precautions and make furt her recommendations. 10/18 Pt with tachycardia today. She is now sched uled for PPM today. Fatigues. IRF once medically stable. Will plan to re-order therapy post op. 10/19: Pt seen and examined. She is s/p pacemaker on 10/18. NWB to the [facility]. States rapid HR this a.m. mStill with mild volum e overload. EP following. IRF order placed. 10/20: On Amiodaron PO. She was seen by therapy a nd noted to be MOD A. BP stable. Hopefully will be cleared [facility]. 10/21: Tolertaing PO Amiodarone. Her Stephanie pentin has been restarted at 600 mg at bedtime. Not sure why it was DCd and continue Melatonin at night. SHe has a bed and accepted for rehab. Consultants: cardiology, cardiovascular surgery, critical/clubhouse manager Rehab attestation: Face to face exam completed. Treatment plan disc ussed with patient. Meets continued stay criteria. Electronically Signed by Cinthya Burger PA-C on at 1436 RPT #:[id number] END OF REPORT 2022-10-20 [facility] 15:23:00-00:00 [facility] ([facility]) Rehab Progress Note REPORT#:[id number] REPORT STATUS: Signed DATE:10/20/22 TIME: 1523 PATIENT: SWEETIE AMAYA UNIT #: [id number] ROOM/BED: 3361 : 47 AGE: 77 SEX: F ATTEND: Bella Hoff MD ADM AUTHOR: Cinthya Burger PA-C * ALL edits or amendments must be made on the [employer]/computer document * Subjective Chief complaint: Pt seen and examined. She is in bed no acute dis tress. S/P pacemaker in a arm sling to the left upper extremity. States that s he was on Omeprazole at home prior to the hospital. States having indigestion . Objective General VS: Vital Signs: Date Time Temp Pulse Resp B/P B/P Pulse O2 O2 F low FiO2 Mean Ox Delivery Rate 10/20 1210 97.9 60 18 165/73 0.0 100 10/20 0728 98.2 60 18 163/73 0.0 95 10/20 0515 98.2 60 16 138/63 0.0 98 Room air 10/20 0514 60 13 138/63 91 97 10/20 0441 60 21 155/74 104 95 10/20 0400 60 20 94 10/20 0300 60 24 92 10/20 0200 60 24 92 10/20 0100 60 14 92 10/19 2355 98.4 60 16 138/85 0.0 96 10/19 2300 60 14 92 10/19 2111 79 22 147/75 105 99 10/19 2102 100 Room air 10/19 2100 66 93 10/19 2000 98.6 62 18 172/50 91.0 100 10/20 1999 62 29 89 10/19 1900 63 14 92 10/19 1550 97.9 60 14 160/73 0.0 97 Room air 10/19 1549 60 17 160/73 105 97 10/19 1529 100 Room air PATIENT WEIGHT: Weight (lb): 174 Weight (oz): 13.23 Weight (kg): 79.300 Medications: Active Meds + DC'd Last 24 Hrs Metoprolol Tartrate (LOPRESSOR) 50 MG Q12HR PO Simethicone (MYLANTA GAS) 80 MG QID PRN PRN PO Pantoprazole (PROTONIX) 40 MG DAILY 0600 PO Ondansetron HCl (ZOFRAN) 4 MG Q4H PRN PRN IV Amiodarone HCl (CORDARONE) 200 MG BID 9A 5P PO Doxycycline Monohydrate (DOXYCYCLINE MONOHYDRATE ) 100 MG Q12HR PO Metoprolol Tartrate (LOPRESSOR) 25 MG Q12HR PO ( DC) Amiodarone HCl (AMIODARONE HCL) 450 MG ASDIR IV (CKD) Dextrose/Water (D5%W NON-DEHP) 250 ML Amlodipine Besylate (NORVASC) 5 MG BEDTIME PO Furosemide (LASIX 20MG INJ) 20 MG BID 9A 5P IV Hydrocodone Bitart/Acetaminophen (NORCO 5/325) 2 TAB Q4H PRN PRN PO Ipratropium [employer] (ATROVENT) 500 MCG RTQ2H PRN PRN INH Cyanocobalamin (Vitamin B-12 500 mcg tab) 500 MC G DAILY PO Ferrous Sulfate (FERROUS SULFATE) 325 MG DAILY P O Bisacodyl (DULCOLAX) 10 MG ONCE PRN RECTAL Captopril (CAPOTEN) 6.25 MG Q8HR PO Atorvastatin Calcium (LIPITOR) 40 MG 2100 PO Mesalamine (DELZICOL 400MG CAP DR.) 800 MG BID P O Polyethylene Glycol (MIRALAX) 17 GM DAILY PO Melatonin (Melatonin) 6 MG BEDTIME PO Docusate Sodium (COLACE) 100 MG BID PO Sennosides (Senna Lax 8.6 MG TABLET) 17.2 MG BED TIME PO Aspirin (ASPIRIN) 81 MG DAILY PO Acetaminophen (TYLENOL) 650 MG Q4H PRN PRN PO Acetaminophen (TYLENOL) 650 MG Q4H PRN PRN RECTA L Calcium Chloride (CALCIUM CHLORIDE) 1 GM ASDIR P RN IV Epinephrine (ADRENALIN CHLORIDE) 4 MG ASDIR IV Dextrose/Water (DEXTROSE 5% WATER) 246 ML Glucagon (GLUCAGON) 1 MG ASDIR PRN IM Magnesium Sulfate (MAGNESIUM SULFATE 4GM/SWFI 10 0ML) 100 ML ASDIR PRN IV Magnesium Sulfate (MAGNESIUM SULFATE 2GM/SWFI 50 ML) 50 ML ASDIR PRN IV Magnesium Sulfate/Dextrose (MAGNESIUM SULFATE 1G M/D5W 100ML) 100 ML ASDIR PRN IV Nitroglycerin/Dextrose (NITROGLYCERIN 50,000MCG/ D5W 250ML) 250 ML ASDIR IV Norepinephrine Bitartrate (NOREPINEPHRINE 8 MG/N S 250 ML) 250 ML TITRATE IV Ondansetron HCl (ZOFRAN) 4 MG Q6H PRN PRN IV (DC ) Potassium Chloride (KCL 20MEQ/SWFI 100ML) 100 ML ASDIR PRN IV Sodium Bicarbonate (SODIUM BICARBONATE) 50 MEQ A SDIR PRN IV Sodium Chloride (SODIUM CHLORIDE 0.9%) 1,000 ML .Q20H IV Sodium Chloride (SODIUM CHLORIDE 0.9%) 250 ML Q2 4H IV Functional Progress Functional progress: Precautions: Cardiac Sternal Fall L PM Safety addressed through use of: Verbal Cues Tactile Cues Observed precautions for: SEE ABOVE ACTIVITIES PERFORMED: Supine to/from sitting: Moderate Assistance Sit to Stand: Moderate Assistance Activities Performed Cmt: PATIENT COMPLETED BED MOBILITY XFERS TO EOB, SIT<>STAND XFERS, DYNAMIC STANDING TASKS, COMMUNITY MOBILITY 75X1, AND RETURNS TO BED SUPINE W HOB ELEVATED. Assistive Device Used: Staff Support TRANSPORT CHAIR HANDLES Balance: Fair Safety Awareness: Good Effects of Treatment: Cardio tolerance improved Circulation improved Impro. postural alignment Comments: PATIENT GOT NAUSEATED DURING MOBILITY TASKS AND NEEDS TO RETURN TO BED. EDUCATED PATIENT ON PACEMAKER PRECAUTIONS. Review OT Plan of Care: Yes Document OT charges: FT/THERAP. ACTIVITY [id number] If this is the patient's last treatment, this e ntry Start Time: 1001 Stop Time: 1026 Treatment time ( minutes): 0:25 Completed by: Obie Moyer Conference/Supervising OT: Y Supervising Therap ist: Maurilio Boateng . Occupational Therapy: Plan of Care OT Problem List: 1 Impaired Strength/ROM 5 Impaired Functional Mobil 7 Impaired ADL MUSCULOSKELETAL Items determined to be OUTSIDE the Functional Limits are as follows: RANGE OF MOTION (Degrees): Active unless otherw ise noted UPPER EXTREMITIES: Yes Upper Extremity Measurements and Comments: WITHIN STERNAL / PPM LIMITS LOWER EXTREMITIES: Yes Lower Extremity Measurements and Comments: WFL Items determined to be OUTSIDE the Functional L imits are as follows: OBSERVED MUSCLE STRENGTH: Yes RIGHT UPPER EXTREMITY: Yes RUE Muscle Strength and Comments: 3+ LEFT UPPER EXTREMITY: Yes LUE Muscle Strength and Comments: 3+ RIGHT LOWER EXTREMITY: Yes RLE Muscle Strength and Comments: 4- LEFT LOWER EXTREMITY: Yes LLE Muscle Strength and Comments: 4- NEUROLOGICAL NEUROLOGICAL Items determined to be OUTSIDE the Functional Limits are as follows: Items determined to be OUTSIDE the Functional L imits are as follows: Items determined to be OUTSIDE the Functional L imits are as follows: SENSATION LIGHT TOUCH SENSATION Items determined to be OUTSIDE the Functional L imits are as follows: FUNCTIONAL MOBILITY Mobility: How much help from another person does the krystle ent currently need: Moving from lying on your back to sitting on th e side of a flat bed FUNCTIONAL MOBILITY Items determined to be OUTSIDE the Functional L imits are as follows: BED MOBILITY: Yes Rolling Right/Left: Minimal Assistance Supine to Sit: Minimal Assistance Sit to Supine: Minimal Assistance Scooting in bed: Maximal Assistance TRANSFERS: Yes Bed to/from chair: Minimal Assistance Sit to/from stand: Minimal Assistance Items determined to be OUTSIDE the Functional L imits are as follows: BALANCE: Yes Static Standing: Supervision or Set-up Dynamic Standing: Minimal Assistance Static Sitting: Independent Dynamic Sitting: Independent Patient Ambulatory: Yes Gait Assist: Minimal Assistance Gait Device RW FOLLOW Ambulation Distance: 50 FT X 3 Gait Deviations: SHORT STEP SLOW . WheelChair Mobility Physical Exam General appearance: alert, awake, oriented HEENT: anicteric, mucosal membranes moist, scler a clear Neck: supple, no JVD Cardiovascular: tachycardia, S1/S2, external pac emaker Respiratory: aerating well, clear bilaterally Abdomen: bowel sounds present, non-distended, so ft, non-tender Skin: dry, intact, no rash Musculoskeletal - general: Musculoskeletal - general: swelling, joints nor mal, range of motion normal, strength testing normal, no swelling Neuro/CHARGING MANIPULATOR: alert, oriented X 3, normal speech, n o motor deficits, no sensory deficits Results Findings/Data: Laboratory Tests: 10/20 10/19 1232 1552 Chemistry Sodium (134 - 147 mEq/L) 126 L Potassium (3.4 - 5.0 mEq/L) 3.5 Chloride (100 - 108 mEq/L) 91 L Carbon Dioxide (21 - 33 mEq/l) 31 Anion Gap (0 - 20) 7 BUN (7 - 18 mg/dL) 13 Creatinine (0.6 - 1.3 mg/dL) 0.8 Glomerular Filtr Rate (70 - 80) 76.8 Glucose (70 - 110 mg/dL) 116 H POC Glucose (70 - 110 MG/DL) 114 H Calcium (8.0 - 10.5 mg/dL) 8.3 Magnesium (1.80 - 2.40 mg/dL) 1.68 L Hematology WBC (4.5 - 11.0 x10 3/uL) 14.3 H RBC (3.54 - 5.02 x10 6/uL) 2.91 L Hgb (11.0 - 15.0 g/dL) 8.3 L Hct (33.0 - 45.0 %) 24.9 L MCV (81.0 - 99.0 fL) 85.6 MCH (27.0 - 33.0 pg) 28.5 MCHC (33.0 - 37.0 g/dL) 33.3 RDW (11.5 - 14.5 %) 14.9 H Plt Count (150 - 400 x10 3/uL) 378 MPV (7.0 - 9.0 fL) 9.2 H Neut % (Auto) (56.0 - 77.0 %) 79.5 H Lymph % (Auto) (14.0 - 32.0 %) 8.9 L Nelson % (Auto) (4.8 - 9.0 %) 6.7 Eos % (Auto) (0.3 - 3.7 %) 3.5 Baso % (Auto) (0.0 - 2.0 %) 0.7 Neut # (Auto) (2.0 - 7.6 x10 3/uL) 11.34 H Lymph # (Auto) (1.0 - 3.8 x10 3/uL) 1.27 Nelson # (Auto) (0.1 - 0.8 x10 3/uL) 0.95 H Eos # (Auto) (0.0 - 0.2 x10 3/uL) 0.50 H Baso # (Auto) (0.0 - 0.2 x10 3/uL) 0.10 Abs Immat Gran (auto) (0.00 - 0.03 x10 3/uL) 0. 10 H Add Manual Diff NO Immature Gran % (0.0 - 2.0 %) 0.7 Nucleated RBC % (0 - 0 %) 0.1 H Nucleated RBCs # (Man) (0.0 - 0.1 x10 3/uL) 0.0 2 Radiology data: Recent Impressions-Last 72 Hrs RADIOLOGY - XR CHEST 1 V 10/18 0642 Report Impression - Status: SIGNED Entered: 10/18/2022 0857 IMPRESSION: 1. Mildly improved lung opacities. 2. Removal of the right IJ catheter sheath. No p neumothorax. Impression By: [email or web address] - Juan Reilly M.D. RADIOLOGY - XR CHEST 1 V 10/18 1630 Report Impression - Status: SIGNED Entered: 10/18/2022 1931 IMPRESSION: Interval placement of new left cardiac device is present. Impression By: [email or web address] - Nelson Martin M.D. RADIOLOGY - XR CHEST 1 V 10/19 0514 Report Impression - Status: SIGNED Entered: 10/19/2022 0659 IMPRESSION: No significant interval change. Impression By: [email or web address] - Jonh Patel Diagnosis, Assessment Plan Problem List/A P: 1. S/P CABG (coronary artery bypass graft) 2. S/P placement of cardiac pacemaker Free Text A P: Severe mitral regurgitation status post MVR on Acute pulmonary insufficiency following major ca rdiothoracic surgery Cardiogenic shock Acute blood loss anemia Metabolic acidosis Hypokalemia Sick Sinus Syndrome Hx Asthma GERD HTN P A FIB Plan: PT/OT consulted. She will need to be NWB to the LUE along with her sternal precautions. Continue to work on weaning O2 as t olerated. Therapy to work on OOB daily to the chair, zepeda sfers, progressive gait, adls and etc. Will see how she does post PPM with precautions and make furt her recommendations. 10/18 Pt with tachycardia today. She is now sched uled for PPM today. Fatigues. IRF once medically stable. Will plan to re-order therapy post op. 10/19: Pt seen and examined. She is s/p pacemaker on 10/18. NWB to the E. States rapid HR this a.m. mStill with mild volum e overload. EP following. IRF order placed. 10/20: On Amiodaron PO. She was seen by therapy a nd noted to be MOD A. BP stable. Hopefully will be [facility] Consultants: cardiology, cardiovascular surgery, critical/clubhouse manager Rehab attestation: Face to face exam completed. Treatment plan disc ussed with patient. Electronically Signed by Cinthya Burger PA-C on at 2153 RPT #:[id number] END OF REPORT 2022-10-20 [facility] 12:12:00-00:00 [facility] Hospitalist Progress Note REPORT#:[id number] REPORT STATUS: Signed DATE:10/20/22 TIME: 1212 PATIENT: SWEETIE AMAYA UNIT #: [id number] ROOM/BED: [address] : 47 AGE: 77 SEX: F ATTEND: Bella Hoff MD ADM AUTHOR: Nina Melgar MD * ALL edits or amendments must be made on the One[employer]/computer document * Subjective Chief complaint: she feel better . pacemaker placement -- 10/18 1. Mitral valve replacement 2. Pulmonary vein isolation. 3. Amputation of left atrial appendage. HPI: 77 YO female with PMHx of hy pertension, hyperlipidemia, carotid artery disease s /p R CEA was admitted to the hospital for mitral valve surgery . she has been progressively worsening of s ob . she was found severe mitral valve regurgitation . LHC was done . it show no blockage . she had mitral valve surgery today . she was seen in CVICU post procedure . she was intub ated on the vent support . 2 [address] tube are in place . history is obtained from staff and review the chart . Review of Systems Constitutional: Reports: generalized weakness. Denies: lethargy. Respiratory: Denies: productive cough (sputum), SOB, wheezing . Cardiovascular: Denies: edema, orthopnea, palpitations. GI: Denies: nausea, vomiting. : Denies: hematuria. Objective General VS/I O: Vital Signs: Date Time Temp Pulse Resp B/P B/P Pulse O2 O2 Flow FiO2 Mean Ox Delivery Rate 10/20 1210 36.6 60 18 165/73 0.0 100 10/20 0728 36.8 60 18 163/73 0.0 95 10/20 0515 36.8 60 16 138/63 0.0 98 Room air 10/20 0514 60 13 138/63 91 97 10/20 0441 60 21 155/74 104 95 10/20 0400 60 20 94 10/20 0300 60 24 92 10/20 0200 60 24 92 10/20 0100 60 14 92 10/19 2355 36.9 60 16 138/85 0.0 96 10/19 2300 60 14 92 10/19 2111 79 22 147/75 105 99 10/19 2102 100 Room air 10/19 2100 66 93 10/19 2001 37.0 62 18 172/50 91.0 100 10/19 2000 62 29 89 10/19 1900 63 14 92 10/19 1550 36.6 60 14 160/73 0.0 97 Room air 10/19 1549 60 17 160/73 105 97 10/19 1529 100 Room air 10/19 1400 60 25 159/71 102 99 10/19 1341 60 19 96 10/19 1300 60 16 148/70 100 93 24 hour I O ending at 0700: 10/20 0700 10/19 1900 Intake Total 500 500 Output Total 1400 400 Balance -900 100 Intake, Oral 500 500 Number Voids 2 Output, Urine 1400 400 PATIENT WEIGHT: Weight (lb): 174 Weight (oz): 13.23 Weight (kg): 79.300 Medications: Active Meds + DC'd Last 24 Hrs Metoprolol Tartrate (LOPRESSOR) 50 MG Q12HR PO Simethicone (MYLANTA GAS) 80 MG QID PRN PRN PO Pantoprazole (PROTONIX) 40 MG DAILY 0600 PO Ondansetron HCl (ZOFRAN) 4 MG Q4H PRN PRN IV Amiodarone HCl (CORDARONE) 200 MG BID 9A 5P PO Doxycycline Monohydrate (DOXYCYCLINE MONOHYDRATE ) 100 MG Q12HR PO Metoprolol Tartrate (LOPRESSOR) 25 MG Q12HR PO ( DC) Amiodarone HCl (AMIODARONE HCL) 450 MG ASDIR IV (CKD) Dextrose/Water (D5%W NON-DEHP) 250 ML Amlodipine Besylate (NORVASC) 5 MG BEDTIME PO Furosemide (LASIX 20MG INJ) 20 MG BID 9A 5P IV Hydrocodone Bitart/Acetaminophen (NORCO 5/325) 2 TAB Q4H PRN PRN PO Ipratropium [employer] (ATROVENT) 500 MCG RTQ2H PRN PRN INH Cyanocobalamin (Vitamin B-12 500 mcg tab) 500 MC G DAILY PO Ferrous Sulfate (FERROUS SULFATE) 325 MG DAILY P O Bisacodyl (DULCOLAX) 10 MG ONCE PRN RECTAL Captopril (CAPOTEN) 6.25 MG Q8HR PO Atorvastatin Calcium (LIPITOR) 40 MG 2100 PO Mesalamine (DELZICOL 400MG CAP DR.) 800 MG BID P O Polyethylene Glycol (MIRALAX) 17 GM DAILY PO Melatonin (Melatonin) 6 MG BEDTIME PO Docusate Sodium (COLACE) 100 MG BID PO Sennosides (Senna Lax 8.6 MG TABLET) 17.2 MG BED TIME PO Aspirin (ASPIRIN) 81 MG DAILY PO Acetaminophen (TYLENOL) 650 MG Q4H PRN PRN PO Acetaminophen (TYLENOL) 650 MG Q4H PRN PRN RECTA L Calcium Chloride (CALCIUM CHLORIDE) 1 GM ASDIR P RN IV Epinephrine (ADRENALIN CHLORIDE) 4 MG ASDIR IV Dextrose/Water (DEXTROSE 5% WATER) 246 ML Glucagon (GLUCAGON) 1 MG ASDIR PRN IM Magnesium Sulfate (MAGNESIUM SULFATE 4GM/SWFI 10 0ML) 100 ML ASDIR PRN IV Magnesium Sulfate (MAGNESIUM SULFATE 2GM/SWFI 50 ML) 50 ML ASDIR PRN IV Magnesium Sulfate/Dextrose (MAGNESIUM SULFATE 1G M/D5W 100ML) 100 ML ASDIR PRN IV Nitroglycerin/Dextrose (NITROGLYCERIN 50,000MCG/ D5W 250ML) 250 ML ASDIR IV Norepinephrine Bitartrate (NOREPINEPHRINE 8 MG/N S 250 ML) 250 ML TITRATE IV Ondansetron HCl (ZOFRAN) 4 MG Q6H PRN PRN IV (DC ) Potassium Chloride (KCL 20MEQ/SWFI 100ML) 100 M L ASDIR PRN IV Sodium Bicarbonate (SODIUM BICARBONATE) 50 MEQ A SDIR PRN IV Sodium Chloride (SODIUM CHLORIDE 0.9%) 1,000 ML .Q20H IV Sodium Chloride (SODIUM CHLORIDE 0.9%) 250 ML Q2 4H IV Physical Exam General appearance: alert, awake, oriented Head/Eyes: atraumatic, normal conjunctiva/sclera , normal eyelids/periorb. ENT: intubated Neck: full range of motion, non-tender Cardiovascular: normal heart sounds, regular rat e rhythm Respiratory: clear to auscultation Abdomen: non-tender, normal bowel sounds, soft, no distention Extremities: no edema Neuro/CHARGING MANIPULATOR: alert, oriented X 3, CNII-XII intact, normal speech, no motor deficits, no sensory deficits Results Findings/Data: Laboratory Tests 10/19 1552 Chemistry POC Glucose (70 - 110 MG/DL) 114 H Diagnosis, Assessment Plan Consultants: cardiology, cardiovascular surgery, critical/clubhouse manager Free Text DxA P Notes Free text DxA P notes: acute respiratory failure --post procedure severe mitral valve regurgitation HTN HLD CHF -- diastolic SSS, symptomatic bradycardia; CHB -s/p TPM hyponatremia intubated on the vent support --post procedure post mitral valve surgery HTN -- on metoprolol monitor BP HLD --lipitor cardiology consult CV surgeon consult critial care consult monitor in the CVICU afib RVR--post procedure on amiodarone drip NO AC --post surgery SSS-- EP consult pacemaker placement --10/18 1. Mitral valve replacement (27 Mitris valve). 2. Pulmonary vein isolation. 3. Amputation of left atrial appendage. 10/13- she was extubated yesterday she sit on the chair no sob [address] -- she is hemodynamic stable --review lab and image -- case is discussed with nurse 10/14- she sit on the chair -- drainage tube are out -- she feel better -- she is hemodynamic stable -- continue PT/OT continue monitor in CVICU -- review all lab and image 10/15 Continue post-op care, bowel regimen. OOB/a mbulate with PT/OT. 10/16 Had echo today. Continue PT/OT post-op. 10/17- she feel better - she is hemodynamic stable -- continue PT/OT -- rehab evaluation -- review all all lab and image -- case is discussed with nurse 10/18- she feel palpitation -- on amiodarone drip -- EP consult -- pacemaker today -- continue monitor in CVicu -- afib -- control HR -- PT/OT -- review all lab and image 10/19-- she feel tire -- HR is under control --on amiodarone and meto prolol -- transfer to [facility] -- continue PT/OT -- rehab evaluation 10/20- she is weak -- no sob no palpitation -- monitor BP and HR -- continue PT/OT Electronically Signed by Nina Melgar MD on 3 at 1409 RPT #:[id number] END OF REPORT 2022-10-20 [facility] 09:56:00-00:00 [facility] Cardiology Progress Note REPORT#:[id number] REPORT STATUS: Signed DATE:10/20/22 TIME: 955 PATIENT: SWEETIE AMAYA UNIT #: [id number] ROOM/BED: [place] [id number] : 47 AGE: 77 SEX: F ATTEND: Bella Hoff MD ADM AUTHOR: Amarilis Valentin ACNP * ALL edits or amendments must be made on the el Internet [employer]/computer document * Subjective Comments: Nauseous. States she feels week. Objective General VS/I O: 24 hour I O ending at 0700: 10/20 0710/19 1900 Intake Total 500 500 Output Total 1400 400 Balance -900 100 Intake, Oral 500 500 Number Voids 2 Output, Urine 1400 400 Vital Signs: Date Time Temp Pulse Resp B/P B/P Pulse O2 O2 F low FiO2 Mean Ox Delivery Rate 10/20 0728 36.8 60 18 163/73 0.0 95 10/20 0515 36.8 60 16 138/63 0.0 98 Room air 10/20 0514 60 13 138/63 91 97 10/20 0441 60 21 155/74 104 95 10/20 0400 60 20 94 10/20 0300 60 24 92 10/20 0200 60 24 92 10/20 0100 60 14 92 10/19 2355 36.9 60 16 138/85 0.0 96 10/19 2300 60 14 92 10/19 2111 79 22 147/75 105 99 10/19 2102 100 Room air 10/19 2100 66 93 10/19 2001 37.0 62 18 172/50 91.0 100 10/19 2000 62 29 89 10/19 1900 63 14 92 10/19 1550 36.6 60 14 160/73 0.0 97 Room air 10/19 1549 60 17 160/73 105 97 10/19 1529 100 Room air 10/19 1400 60 25 159/71 102 99 10/19 1341 60 19 96 10/19 1300 60 16 148/70 100 93 10/19 1201 60 23 117/55 79 97 PATIENT WEIGHT: Weight (lb): 174 Weight (oz): 13.23 Weight (kg): 79.300 Medications: Active Meds + DC'd Last 24 Hrs Simethicone (MYLANTA GAS) 80 MG QID PRN PRN PO ( UNV) Pantoprazole (PROTONIX) 40 MG DAILY 0600 PO Ondansetron HCl (ZOFRAN) 4 MG Q4H PRN PRN IV Amiodarone HCl (CORDARONE) 200 MG BID 9A 5P PO Doxycycline Monohydrate (DOXYCYCLINE MONOHYDRATE ) 100 MG Q12HR PO Metoprolol Tartrate (LOPRESSOR) 25 MG Q12HR PO Amiodarone HCl (AMIODARONE HCL) 450 MG ASDIR IV (CKD) Dextrose/Water (D5%W NON-DEHP) 250 ML Amlodipine Besylate (NORVASC) 5 MG BEDTIME PO Furosemide (LASIX 20MG INJ) 20 MG BID 9A 5P IV Hydrocodone Bitart/Acetaminophen (NORCO 5/325) 2 TAB Q4H PRN PRN PO Ipratropium [employer] (ATROVENT) 500 MCG RTQ2H PRN PRN INH Cyanocobalamin (Vitamin B-12 500 mcg tab) 500 MC G DAILY PO Ferrous Sulfate (FERROUS SULFATE) 325 MG DAILY P O Bisacodyl (DULCOLAX) 10 MG ONCE PRN RECTAL Captopril (CAPOTEN) 6.25 MG Q8HR PO Atorvastatin Calcium (LIPITOR) 40 MG 2100 PO Mesalamine (DELZICOL 400MG CAP DR.) 800 MG BID P O Polyethylene Glycol (MIRALAX) 17 GM DAILY PO Melatonin (Melatonin) 6 MG BEDTIME PO Docusate Sodium (COLACE) 100 MG BID PO Sennosides (Senna Lax 8.6 MG TABLET) 17.2 MG BED TIME PO Aspirin (ASPIRIN) 81 MG DAILY PO Acetaminophen (TYLENOL) 650 MG Q4H PRN PRN PO Acetaminophen (TYLENOL) 650 MG Q4H PRN PRN RECTA L Calcium Chloride (CALCIUM CHLORIDE) 1 GM ASDIR P RN IV Epinephrine (ADRENALIN CHLORIDE) 4 MG ASDIR IV Dextrose/Water (DEXTROSE 5% WATER) 246 ML Glucagon (GLUCAGON) 1 MG ASDIR PRN IM Magnesium Sulfate (MAGNESIUM SULFATE 4GM/SWFI 10 0ML) 100 ML ASDIR PRN IV Magnesium Sulfate (MAGNESIUM SULFATE 2GM/SWFI 50 ML) 50 ML ASDIR PRN IV Magnesium Sulfate/Dextrose (MAGNESIUM SULFATE 1G M/D5W 100ML) 100 ML ASDIR PRN IV Nitroglycerin/Dextrose (NITROGLYCERIN 50,000MCG/ D5W 250ML) 250 ML ASDIR IV Norepinephrine Bitartrate (NOREPINEPHRINE 8 MG/N S 250 ML) 250 ML TITRATE IV Ondansetron HCl (ZOFRAN) 4 MG Q6H PRN PRN IV (DC ) Potassium Chloride (KCL 20MEQ/SWFI 100ML) 100 ML ASDIR PRN IV Sodium Bicarbonate (SODIUM BICARBONATE) 50 MEQ A SDIR PRN IV Sodium Chloride (SODIUM CHLORIDE 0.9%) 1,000 ML .Q20H IV Sodium Chloride (SODIUM CHLORIDE 0.9%) 250 ML Q2 4H IV Pacemaker: permanent Physical Exam General appearance: alert, awake ENT: normal nose Neck: non-tender, no JVD Cardiovascular: CV assessment: regular rate and rhythm Murmur assessment: heart murmur Respiratory: decreased breath sounds, on oxygen, no distress Abdomen: soft, non-tender, normal bowel sounds Genitourinary: no flank pain, no urinary cathete r Upper extremity: Right radial site: intact, no bleeding, no drai nage, no ecchymosis, no hematoma Lower extremity: LE assessment: edema (trace) Musculoskeletal: normal inspection Neuro/CHARGING MANIPULATOR: alert, oriented X 3, normal speech Skin: dry, intact Psychiatry: normal affect, normal judgment/insig ht, normal mood Results Findings/Data: Laboratory Tests 10/19 1552 Chemistry POC Glucose (70 - 110 MG/DL) 114 H Results: no new labs, vital signs reviewed, rhyt hm personally rev'd Telemetry Interpretation: AV paced Diagnosis, Assessment Plan Plan discussed with: patient, spouse/partner, co sashaaboradomitila TINEO, nurse Free Text DxA P Notes Free Text DxA P Notes: 77 YO female with PMHx of hy pertension, hyperlipidemia, carotid artery disease s /p R CEA who has been having progressively worse madeleine shortness of breath. She was found to have severe mitral valve regurgitat ion. 1. Severe mitral valve regurgitation s/p MVR, PV I, and ALAA * post op care per CTS and ICC * continue ASA * repeat echo LVEF preserved * on IV lasix 20 mg BID, negative fluid balance 2. Hypertension * BP remains suboptimal * continue amlodipine 5 mg daily * increase metoprolol to 50 mg BID 3. Hyperlipidemia * continue statin 4. Complete heart block/Sick sinus syndrome * s/p ppm placement 5. Post-op afib RVR (10/18) - converted to sinus * DC amio gtt, continue Amio 200 mg PO BID * cpntinue BB Labs pending nauseous - RN to give Zofran UA swelling - Venous doppler BUE r/o DVT MDM by Dr. Bowden. at 1140 RPT #:[id number] END OF REPORT 2022-10-20 [facility] 09:10:00-00:00 [facility] Cardiothoracic Surgery Prog REPORT#:[id number] REPORT STATUS: Signed DATE:10/20/22 TIME: 909 PATIENT: SWEETIE AMAYA UNIT #: [id number] ROOM/BED: [place] [id number] : 47 AGE: 77 SEX: F ATTEND: Gilda Hoff MD ADM AUTHOR: Navdeep Carey MD * ALL edits or amendments must be made on the el Internet [employer]/computer document * Subjective HPI: Doing well Good pain control No new issues Objective General VS/I O Last Documented: Result Date Time Pulse Ox 98 10/20 1635 B/P 167/84 10/20 1635 B/P Mean 0.0 10/20 1635 Temp 36.6 10/20 1635 Pulse 60 10/20 1635 Resp 16 10/20 1635 O2 Delivery Room air 10/20 0515 O2 Flow Rate 2 10/18 2014 FiO2 28 10/18 0342 24 hour I O ending at 0700: 10/20 0700 10/19 1900 Intake Total 500 500 Output Total 1400 400 Balance -900 100 Intake, Oral 500 500 Number Voids 2 Output, Urine 1400 400 PATIENT WEIGHT: Weight (lb): 174 Weight (oz): 13.23 Weight (kg): 79.300 Physical Exam General appearance: alert, awake, oriented Wound/incision: Location: sternum Site condition: dressing clean dry, dressing in tact HEENT: anicteric, mucosal membranes moist, pupil s reactive to light Neck: full range of motion, non-tender Cardiovascular: regular rate rhythm, A paced Respiratory: aerating well Abdomen: soft, non-tender Genitourinary: urine Extremities: dry, moves all Musculoskeletal: full range of motion Neuro/CHARGING MANIPULATOR: alert, oriented X 3 Skin: dry, intact Psychiatry: normal affect, normal mood Results Findings/Data: Laboratory Tests 10/19 1552 Chemistry POC Glucose (70 - 110 MG/DL) 114 H Diagnosis, Assessment Plan Hospital course to date: DC epicardial pacing wires Discharge planning to inpatient rehab Ambulate Encourage incentive spirometry at 4734 RPT #:[id number] END OF REPORT 2022-10-19 [facility] 12:46:00-00:00 [facility] Rehab Progress Note REPORT#:[id number] REPORT STATUS: Signed DATE:10/19/22 TIME: 1246 PATIENT: SWEETIE AMAYA UNIT #: [id number] ROOM/BED: [place] [id number] : 47 AGE: 77 SEX: F ATTEND: Bella Hoff MD ADM AUTHOR: Cinthya Burger PA-C * ALL edits or amendments must be made on the [employer] document * Subjective Chief complaint: Pt seen and examined. She is in bed no acute dis tress. S/P pacemaker in a arm sling to the Left upper extremity. Objective General VS: Vital Signs: Date Time Temp Pulse Resp B/P B/P Pulse O2 O2 F low FiO2 Mean Ox Delivery Rate 10/19 0827 94 Room air 10/19 0800 97.5 10/19 0700 77 20 164/68 98 96 10/19 0600 76 17 161/72 104 93 10/19 0500 79 18 10/19 0400 72 15 150/68 96 95 10/19 0300 75 17 144/70 101 94 10/19 0233 132/61 88 10/19 0200 79 5 10/19 0100 88 94 10/19 0000 74 16 161/75 108 91 10/18 2300 68 25 182/81 116 100 10/18 2200 70 14 161/72 104 98 10/18 2100 70 21 169/75 108 98 10/18 2015 94 High flow 2 nasal cannula 10/18 2000 75 26 166/76 109 90 10/18 1900 76 19 163/70 100 94 10/18 1700 67 16 178/82 118 10/18 1620 66 18 166/75 108 10/18 1300 80 15 149/78 107 100 PATIENT WEIGHT: Weight (lb): 174 Weight (oz): 13.23 Weight (kg): 79.300 Medications: Active Meds + DC'd Last 24 Hrs Amiodarone HCl (CORDARONE) 200 MG BID 9A 5P PO Doxycycline Monohydrate (DOXYCYCLINE MONOHYDRATE ) 100 MG Q12HR PO Metoprolol Tartrate (LOPRESSOR) 25 MG Q12HR PO Amiodarone HCl (AMIODARONE HCL) 450 MG ASDIR IV (CAN) Dextrose/Water (D5%W NON-DEHP) 250 ML Amiodarone HCl (NEXTERONE 150MG/D5W 100ML) 100 M L STAT STA IV (DC) Amiodarone HCl (NEXTERONE 150MG/D5W 100ML) 100 M L .STK-MED ONE IV (DC) Magnesium Sulfate (MAGNESIUM SULFATE 2GM/SWFI 50 ML) 50 ML ONCE ONE IV ( DC) Magnesium Citrate (MAGNESIUM CITRATE) 300 ML ONC E ONE PO (DC) Sodium Biphosphate/Sodium Phosphate (FLEET SALIN E ENEMA ADULT) 1 ENEMA ONCE ONE RECTAL (DC) Fentanyl Citrate (SUBLIMAZE) 0 .STK-MED ONE .ROU TE (DC) Midazolam HCl (VERSED) 0 .STK-MED ONE .ROUTE (DC ) Gentamicin Sulfate (GARAMYCIN) 0 .STK-MED ONE .R OUTE (DC) Lidocaine/Epinephrine (XYLOCAINE W/EPI 2% 20ML) 0 .STK-MED ONE LOCAL (DC ) Sodium Bicarbonate (SODIUM BICARBONATE) 0 .STK-M ED ONE IV (DC) Fentanyl Citrate (SUBLIMAZE) 0 .STK-MED ONE .ROU TE (DC) Midazolam HCl (VERSED) 0 .STK-MED ONE .ROUTE (DC ) Iopamidol (ISOVUE-370 100ML) 0 .STK-MED ONE IV ( DC) Vancomycin HCl (VANCOMYCIN HCL) 0 .STK-MED ONE . ROUTE (DC) Amiodarone HCl (AMIODARONE HCL) 450 MG ASDIR IV (CKD) Dextrose/Water (D5%W NON-DEHP) 250 ML Amlodipine Besylate (NORVASC) 5 MG BEDTIME PO Furosemide (LASIX 20MG INJ) 20 MG BID 9A 5P IV Hydrocodone Bitart/Acetaminophen (NORCO 5/325) 2 TAB Q4H PRN PRN PO Ipratropium [employer] (ATROVENT) 500 MCG RTQ2H PRN PRN INH Cyanocobalamin (Vitamin B-12 500 mcg tab) 500 MC G DAILY PO Ferrous Sulfate (FERROUS SULFATE) 325 MG DAILY P O Bisacodyl (DULCOLAX) 10 MG ONCE PRN RECTAL Tramadol HCl (ULTRAM) 25 MG QID PRN PO (DC) Captopril (CAPOTEN) 6.25 MG Q8HR PO Atorvastatin Calcium (LIPITOR) 40 MG 2100 PO Mesalamine (DELZICOL 400MG CAP DR.) 800 MG BID P O Polyethylene Glycol (MIRALAX) 17 GM DAILY PO Melatonin (Melatonin) 6 MG BEDTIME PO Docusate Sodium (COLACE) 100 MG BID PO Sennosides (Senna Lax 8.6 MG TABLET) 17.2 MG BED TIME PO Aspirin (ASPIRIN) 81 MG DAILY PO Acetaminophen (TYLENOL) 650 MG Q4H PRN PRN PO Acetaminophen (TYLENOL) 650 MG Q4H PRN PRN RECTA L Calcium Chloride (CALCIUM CHLORIDE) 1 GM ASDIR P RN IV Epinephrine (ADRENALIN CHLORIDE) 4 MG ASDIR IV Dextrose/Water (DEXTROSE 5% WATER) 246 ML Glucagon (GLUCAGON) 1 MG ASDIR PRN IM Magnesium Sulfate (MAGNESIUM SULFATE 4GM/SWFI 10 0ML) 100 ML ASDIR PRN IV Magnesium Sulfate (MAGNESIUM SULFATE 2GM/SWFI 50 ML) 50 ML ASDIR PRN IV Magnesium Sulfate/Dextrose (MAGNESIUM SULFATE 1G M/D5W 100ML) 100 ML ASDIR PRN IV Nitroglycerin/Dextrose (NITROGLYCERIN 50,000MCG/ D5W 250ML) 250 ML ASDIR IV Norepinephrine Bitartrate (NOREPINEPHRINE 8 MG/N S 250 ML) 250 ML TITRATE IV Ondansetron HCl (ZOFRAN) 4 MG Q6H PRN PRN IV Potassium Chloride (KCL 20MEQ/SWFI 100ML) 100 ML ASDIR PRN IV Sodium Bicarbonate (SODIUM BICARBONATE) 50 MEQ A SDIR PRN IV Sodium Chloride (SODIUM CHLORIDE 0.9%) 1,000 ML .Q20H IV Sodium Chloride (SODIUM CHLORIDE 0.9%) 250 ML Q2 4H IV Functional Progress Functional progress: Therapist recommended discharge needs: PostAcut e Rehabilitation Potential: Good for Goals Recommendations: Case Management PT Consult Document Pain/Education: Yes Evaluation Type: High Complexity Reason for Eval Complexity: Multiple Comorbidit ies Document OT charges: [place] [id number] Comment: CONTINUED ACUTE SKILLED OT PRIOR TO D C. If this is the patient's last treatment, this e ntry serves as the discharge summary: Y Start Time: 1015 Stop Time: 1025 Eval Time ( minutes): 0:10 Completed by: aMurilio Merida UPPER EXTREMETY FUNCTION UPPER BODY FUNCTION Items determined to be outs jeremi Functional Limits are as follows: RANGE OF MOTION (Degrees): Active unless otherw ise noted RIGHT UPPER EXTREMITY ROM: Yes RUE ROM Measurements and Cmts: WFL FOR STERNAL PRECAUTIONS. LEFT UPPER EXTREMITY ROM: Yes LUE ROM Measurements and Cmts: WFL FOR STERNAL/PM PRECAUTIONS. MANUAL MUSCLE TEST FUNCTIONAL MOBILITY FUNCTIONAL MOBILITY Items determined to be outs jeremi Functional Limits are as follows: Bed Mobility: Minimal Assistance Scooting to edge of bed, Right: Minimal Assista nce Scooting to edge of bed, Left: Minimal Assistan ce Supine to Sit: Minimal Assistance Sit to Supine: Minimal Assistance Sit to Stand: Minimal Assistance Functional Activity Tolerance TRANSFERS Chair/Wheelchair: Minimal Assistance Comments: W AD BALANCE ACTIVITIES OF DAILY LIVING Activity: How much help from another person does the krystle ent currently need: ACTIVITIES OF DAILY LIVING Items determined to be outside Functional Limits are as follows: Lower Body Dressing: Maximal Assistance Hygiene/Grooming: Supervision or Set-up Feeding: Supervision or Set-up NEUROLOGICAL Physical Exam HEENT: anicteric, mucosal membranes moist, scler a clear Neck: supple, no JVD Cardiovascular: tachycardia, S1/S2, external pac emaker Respiratory: aerating well, clear bilaterally Abdomen: bowel sounds present, non-distended, so ft, non-tender Skin: dry, intact, no rash Musculoskeletal - general: Musculoskeletal - general: swelling, joints nor mal, range of motion normal, strength testing normal, no swelling Neuro/CHARGING MANIPULATOR: alert, oriented X 3, normal speech, n o motor deficits, no sensory deficits Diagnosis, Assessment Plan Problem List/A P: 1. S/P CABG (coronary artery bypass graft) 2. S/P placement of cardiac pacemaker Free Text A P: Severe mitral regurgitation status post MVR on Acute pulmonary insufficiency following major ca rdiothoracic surgery Cardiogenic shock Acute blood loss anemia Metabolic acidosis Hypokalemia Sick Sinus Syndrome Hx Asthma GERD HTN P A FIB Plan: PT/OT consulted. She will need to be NWB to the LUE along with her sternal precautions. Continue to work on weaning O2 as t olerated. Therapy to work on OOB daily to the chair, zepeda sfers, progressive gait, adls and etc. Will see how she does post PPM with precautions and make furt her recommendations. 10/18 Pt with tachycardia today. She is now sched uled for PPM today. Fatigues. IRF once medically stable. Will plan to re-order therapy post op. 7/26: Pt seen and examined. She is s/p pacemaker on 10/18. NWB to the E. States rapid HR this a.m. mStill with mild volum e overload. EP following. IRf order placed. Consultants: cardiology, cardiovascular surgery, critical/clubhouse manager Rehab attestation: Face to face exam completed. Treatment plan disc ussed with patient. Electronically Signed by Cinthya Burger PA-C on at 1301 RPT #:[id number] END OF REPORT 2022-10-19 [facility] 12:30:00-00:00 [facility] Hospitalist Progress Note REPORT#:[id number] REPORT STATUS: Signed DATE:10/19/22 TIME: 1230 PATIENT: SWEETIE AMAYA UNIT #: [id number] ROOM/BED: [place] [id number] : 47 AGE: 77 SEX: F ATTEND: Bella Hoff MD ADM AUTHOR: Nina Melgar MD * ALL edits or amendments must be made on the [employer]/computer document * Subjective Chief complaint: no palpitation . no sob pacemaker placement -- 10/18 1. Mitral valve replacement 2. Pulmonary vein isolation. 3. Amputation of left atrial appendage. HPI: 77 YO female with PMHx of hy pertension, hyperlipidemia, carotid artery disease s /p R CEA was admitted to the hospital for mitral valve surgery . she has been progressively worsening of s ob . she was found severe mitral valve regurgitation . LHC was done . it show no blockage . she had mitral valve surgery today . she was seen in CVICU post procedure . she was intub ated on the vent support . 2 drainage tube are in place . history is obtained from staff and review the chart . Review of Systems Constitutional: Reports: generalized weakness. Denies: lethargy. Respiratory: Denies: SOB, wheezing. Cardiovascular: Denies: BLANCO (dyspnea on exertion), orthopnea, pa lpitations. GI: Denies: abdominal pain, nausea, vomiting. Neuro: Denies: dizziness. Objective General VS/I O: Vital Signs: Date Time Temp Pulse Resp B/P B/P Pulse O2 O2 F low FiO2 Mean Ox Delivery Rate 10/19 0827 94 Room air 10/19 0800 36.4 10/19 0700 77 20 164/68 98 96 10/19 0600 76 17 161/72 104 93 10/19 0500 79 18 10/19 0400 72 15 150/68 96 95 10/19 0300 75 17 144/70 101 94 10/19 0233 132/61 88 10/19 0200 79 5 10/19 0100 88 94 10/19 0000 74 16 161/75 108 91 10/18 2300 68 25 182/81 116 100 10/18 2200 70 14 161/72 104 98 10/18 2100 70 21 169/75 108 98 10/18 2015 94 High flow 2 nasal cannula 10/18 2000 75 26 166/76 109 90 10/18 1900 76 19 163/70 100 94 10/18 1700 67 16 178/82 118 10/18 1620 66 18 166/75 108 10/18 1300 80 15 149/78 107 100 24 hour I O ending at 0700: 10/19 0700 10/18 1900 Intake Total 340.00 Output Total 900 Balance 340.00 -900 Intake, IV 100.00 Intake, Oral 240 Number Voids 5 Output, Urine 900 Patient 79.3 kg Weight Weight Standing scale Measurement Method PATIENT WEIGHT: Weight (lb): 174 Weight (oz): 13.23 Weight (kg): 79.300 Medications: Active Meds + DC'd Last 24 Hrs Amiodarone HCl (CORDARONE) 200 MG BID 9A 5P PO Doxycycline Monohydrate (DOXYCYCLINE MONOHYDRATE ) 100 MG Q12HR PO Metoprolol Tartrate (LOPRESSOR) 25 MG Q12HR PO Amiodarone HCl (AMIODARONE HCL) 450 MG ASDIR IV (CAN) Dextrose/Water (D5%W NON-DEHP) 250 ML Amiodarone HCl (NEXTERONE 150MG/D5W 100ML) 100 M L STAT STA IV (DC) Amiodarone HCl (NEXTERONE 150MG/D5W 100ML) 100 M L .STK-MED ONE IV (DC) Magnesium Sulfate (MAGNESIUM SULFATE 2GM/SWFI 50 ML) 50 ML ONCE ONE IV ( DC) Magnesium Citrate (MAGNESIUM CITRATE) 300 ML ONC E ONE PO (DC) Sodium Biphosphate/Sodium Phosphate (FLEET SALIN E ENEMA ADULT) 1 ENEMA ONCE ONE RECTAL (DC) Fentanyl Citrate (SUBLIMAZE) 0 .STK-MED ONE .ROU TE (DC) Midazolam HCl (VERSED) 0 .STK-MED ONE .ROUTE (DC ) Gentamicin Sulfate (GARAMYCIN) 0 .STK-MED ONE .R OUTE (DC) Lidocaine/Epinephrine (XYLOCAINE W/EPI 2% 20ML) 0 .STK-MED ONE LOCAL (DC ) Sodium Bicarbonate (SODIUM BICARBONATE) 0 .STK-M ED ONE IV (DC) Fentanyl Citrate (SUBLIMAZE) 0 .STK-MED ONE .ROU TE (DC) Midazolam HCl (VERSED) 0 .STK-MED ONE .ROUTE (DC ) Iopamidol (ISOVUE-370 100ML) 0 .STK-MED ONE IV ( DC) Vancomycin HCl (VANCOMYCIN HCL) 0 .STK-MED ONE . ROUTE (DC) Amiodarone HCl (AMIODARONE HCL) 450 MG ASDIR IV (CKD) Dextrose/Water (D5%W NON-DEHP) 250 ML Amlodipine Besylate (NORVASC) 5 MG BEDTIME PO Furosemide (LASIX 20MG INJ) 20 MG BID 9A 5P IV Hydrocodone Bitart/Acetaminophen (NORCO 5/325) 2 TAB Q4H PRN PRN PO Ipratropium [employer] (ATROVENT) 500 MCG RTQ2H PRN PRN INH Cyanocobalamin (Vitamin B-12 500 mcg tab) 500 MC G DAILY PO Ferrous Sulfate (FERROUS SULFATE) 325 MG DAILY P O Bisacodyl (DULCOLAX) 10 MG ONCE PRN RECTAL Tramadol HCl (ULTRAM) 25 MG QID PRN PO (DC) Captopril (CAPOTEN) 6.25 MG Q8HR PO Atorvastatin Calcium (LIPITOR) 40 MG 2100 PO Mesalamine (DELZICOL 400MG CAP DR.) 800 MG BID P O Polyethylene Glycol (MIRALAX) 17 GM DAILY PO Melatonin (Melatonin) 6 MG BEDTIME PO Docusate Sodium (COLACE) 100 MG BID PO Sennosides (Senna Lax 8.6 MG TABLET) 17.2 MG BED TIME PO Aspirin (ASPIRIN) 81 MG DAILY PO Acetaminophen (TYLENOL) 650 MG Q4H PRN PRN PO Acetaminophen (TYLENOL) 650 MG Q4H PRN PRN RECTA L Calcium Chloride (CALCIUM CHLORIDE) 1 GM ASDIR P RN IV Epinephrine (ADRENALIN CHLORIDE) 4 MG ASDIR IV Dextrose/Water (DEXTROSE 5% WATER) 246 ML Glucagon (GLUCAGON) 1 MG ASDIR PRN IM Magnesium Sulfate (MAGNESIUM SULFATE 4GM/SWFI 10 0ML) 100 ML ASDIR PRN IV Magnesium Sulfate (MAGNESIUM SULFATE 2GM/SWFI 50 ML) 50 ML ASDIR PRN IV Magnesium Sulfate/Dextrose (MAGNESIUM SULFATE 1G M/D5W 100ML) 100 ML ASDIR PRN IV Nitroglycerin/Dextrose (NITROGLYCERIN 50,000MCG/ D5W 250ML) 250 ML ASDIR IV Norepinephrine Bitartrate (NOREPINEPHRINE 8 MG/N S 250 ML) 250 ML TITRATE IV Ondansetron HCl (ZOFRAN) 4 MG Q6H PRN PRN IV Potassium Chloride (KCL 20MEQ/SWFI 100ML) 100 ML ASDIR PRN IV Sodium Bicarbonate (SODIUM BICARBONATE) 50 MEQ A SDIR PRN IV Sodium Chloride (SODIUM CHLORIDE 0.9%) 1,000 ML .Q20H IV Sodium Chloride (SODIUM CHLORIDE 0.9%) 250 ML Q2 4H IV Physical Exam General appearance: alert, awake, oriented Head/Eyes: atraumatic, normal conjunctiva/sclera , normal eyelids/periorb. ENT: intubated Neck: full range of motion, non-tender Cardiovascular: normal heart sounds, regular rat e rhythm Respiratory: clear to auscultation Abdomen: non-tender, normal bowel sounds, soft, no distention Extremities: no edema Neuro/CHARGING MANIPULATOR: alert, oriented X 3, CNII-XII intact, normal speech, no motor deficits, no sensory deficits Results Findings/Data: Laboratory Tests 10/19 236 Chemistry Sodium (134 - 147 mEq/L) 129 L Potassium (3.4 - 5.0 mEq/L) 4.0 Chloride (100 - 108 mEq/L) 95 L Carbon Dioxide (21 - 33 mEq/l) 28 Anion Gap (0 - 20) 10 BUN (7 - 18 mg/dL) 8 Creatinine (0.6 - 1.3 mg/dL) 0.7 Glomerular Filtr Rate (70 - 80) 90.1 H Glucose (70 - 110 mg/dL) 125 H Calcium (8.0 - 10.5 mg/dL) 8.7 Magnesium (1.80 - 2.40 mg/dL) 1.95 Laboratory Tests 07/26 0237 Hematology WBC (4.5 - 11.0 x10 3/uL) 14.4 H RBC (3.54 - 5.02 x10 6/uL) 2.84 L Hgb (11.0 - 15.0 g/dL) 8.1 L Hct (33.0 - 45.0 %) 24.5 L MCV (81.0 - 99.0 fL) 86.3 MCH (27.0 - 33.0 pg) 28.5 MCHC (33.0 - 37.0 g/dL) 33.1 RDW (11.5 - 14.5 %) 14.8 H Plt Count (150 - 400 x10 3/uL) 269 MPV (7.0 - 9.0 fL) 9.4 H Neut % (Auto) (56.0 - 77.0 %) 79.9 H Lymph % (Auto) (14.0 - 32.0 %) 7.2 L Nelson % (Auto) (4.8 - 9.0 %) 8.6 Eos % (Auto) (0.3 - 3.7 %) 2.9 Baso % (Auto) (0.0 - 2.0 %) 0.6 Neut # (Auto) (2.0 - 7.6 x10 3/uL) 11.50 H Lymph # (Auto) (1.0 - 3.8 x10 3/uL) 1.04 Nelson # (Auto) (0.1 - 0.8 x10 3/uL) 1.23 H Eos # (Auto) (0.0 - 0.2 x10 3/uL) 0.42 H Baso # (Auto) (0.0 - 0.2 x10 3/uL) 0.08 Abs Immat Gran (auto) (0.00 - 0.03 x10 3/uL) 0. 11 H Add Manual Diff NO Immature Gran % (0.0 - 2.0 %) 0.8 Nucleated RBC % (0 - 0 %) 0.1 H Nucleated RBCs # (Man) (0.0 - 0.1 x10 3/uL) 0.0 2 Radiology data: Recent Impressions: RADIOLOGY - XR CHEST 1 V 10/19 0514 Report Impression - Status: SIGNED Entered: 10/19/2022 0659 IMPRESSION: No significant interval change. Impression By: [email or web address] - Jonh Patel Diagnosis, Assessment Plan Consultants: cardiology, cardiovascular surgery, critical/clubhouse manager Free Text DxA P Notes Free text DxA P notes: acute respiratory failure --post procedure severe mitral valve regurgitation HTN HLD CHF -- diastolic SSS, symptomatic bradycardia; CHB -s/p TPM hyponatremia intubated on the vent support --post procedure post mitral valve surgery HTN -- on metoprolol monitor BP HLD --lipitor cardiology consult CV surgeon consult critial care consult monitor in the CVICU afib RVR--post procedure on amiodarone drip NO AC --post surgery SSS-- EP consult pacemaker placement --10/18 1. Mitral valve replacement (27 Mitris valve). 2. Pulmonary vein isolation. 3. Amputation of left atrial appendage. 10/13- she was extubated yesterday she sit on the chair no sob [address] -- she is hemodynamic stable --review lab and image -- case is discussed with nurse 10/14- she sit on the chair -- drainage tube are out -- she feel better -- she is hemodynamic stable -- continue PT/OT continue monitor in CVICU -- review all lab and image 10/15 Continue post-op care, bowel regimen. OOB/a mbulate with PT/OT. 10/16 Had echo today. Continue PT/OT post-op. 10/17- she feel better - she is hemodynamic stable -- continue PT/OT -- rehab evaluation -- review all all lab and image -- case is discussed with nurse 10/18- she feel palpitation -- on amiodarone drip -- EP consult -- pacemaker today -- continue monitor in CVicu -- afib -- control HR -- PT/OT -- review all lab and image 10/19-- she feel tire -- HR is under control --on amiodarone and meto prolol -- transfer to [facility] -- continue PT/OT -- rehab evaluation Electronically Signed by Nina Melgar MD on 3 at 1751 [facility] #:[id number] END OF REPORT 2022-10-19 [facility] 09:07:00-00:00 [facility] Cardiology Progress Note REPORT#:[id number] REPORT STATUS: Signed DATE:10/19/22 TIME: 906 PATIENT: SWEETIE AMAYA UNIT #: [id number] ROOM/BED: 3361-1 : 47 AGE: 77 SEX: F ATTEND: Bella Hoff MD ADM AUTHOR: Amarilis Valentin RN CLINICAL APPEALS * ALL edits or amendments must be made on the Onevest/computer document * Subjective Comments: s/p PPM, afib RVR. Objective General VS/I O: 24 hour I O ending at 0700: 10/19 0700 10/18 1900 Intake Total 340.00 Output Total 900 Balance 340.00 -900 Intake, IV 100.00 Intake, Oral 240 Number Voids 5 Output, Urine 900 Patient 79.3 kg Weight Weight Standing scale Measurement Method Vital Signs: Date Time Temp Pulse Resp B/P B/P Pulse O2 O2 F low FiO2 Mean Ox Delivery Rate 10/19 0827 94 Room air 10/19 0700 77 20 164/68 98 96 10/19 0600 76 17 161/72 104 93 10/19 0500 79 18 10/19 0400 72 15 150/68 96 95 10/19 0300 75 17 144/70 101 94 10/19 0233 132/61 88 10/19 0200 79 5 10/19 0100 88 94 10/19 0000 74 16 161/75 108 91 10/18 2300 68 25 182/81 116 100 10/18 2200 70 14 161/72 104 98 10/18 2100 70 21 169/75 108 98 10/18 2015 94 High flow 2 nasal cannula 10/18 2000 75 26 166/76 109 90 10/18 1900 76 19 163/70 100 94 10/18 1700 67 16 178/82 118 10/18 1620 66 18 166/75 108 10/18 1300 80 15 149/78 107 100 10/18 1200 117 18 164/80 105 93 10/18 1100 115 14 188/83 118 97 10/18 1000 129 15 164/88 114 99 PATIENT WEIGHT: Weight (lb): 174 Weight (oz): 13.23 Weight (kg): 79.300 Medications: Active Meds + DC'd Last 24 Hrs Amiodarone HCl (CORDARONE) 200 MG BID 9A 5P PO Doxycycline Monohydrate (DOXYCYCLINE MONOHYDRATE ) 100 MG Q12HR PO Metoprolol Tartrate (LOPRESSOR) 25 MG Q12HR PO Amiodarone HCl (AMIODARONE HCL) 450 MG ASDIR IV (PEND) Dextrose/Water (D5%W NON-DEHP) 250 ML Amiodarone HCl (NEXTERONE 150MG/D5W 100ML) 100 M L STAT STA IV (PEND) Amiodarone HCl (NEXTERONE 150MG/D5W 100ML) 100 M L .STK-MED ONE IV (DC) Magnesium Sulfate (MAGNESIUM SULFATE 2GM/SWFI 50 ML) 50 ML ONCE ONE IV Magnesium Citrate (MAGNESIUM CITRATE) 300 ML ONC E ONE PO (DC) Sodium Biphosphate/Sodium Phosphate (FLEET SALIN E ENEMA ADULT) 1 ENEMA ONCE ONE RECTAL (DC) Fentanyl Citrate (SUBLIMAZE) 0 .STK-MED ONE .ROU TE (DC) Midazolam HCl (VERSED) 0 .STK-MED ONE .ROUTE (DC ) Gentamicin Sulfate (GARAMYCIN) 0 .STK-MED ONE .R OUTE (DC) Lidocaine/Epinephrine (XYLOCAINE W/EPI 2% 20ML) 0 .STK-MED ONE LOCAL (DC ) Sodium Bicarbonate (SODIUM BICARBONATE) 0 .STK-M ED ONE IV (DC) Fentanyl Citrate (SUBLIMAZE) 0 .STK-MED ONE .ROU TE (DC) Midazolam HCl (VERSED) 0 .STK-MED ONE .ROUTE (DC ) Iopamidol (ISOVUE-370 100ML) 0 .STK-MED ONE IV ( DC) Vancomycin HCl (VANCOMYCIN HCL) 0 .STK-MED ONE . ROUTE (DC) Amiodarone HCl (AMIODARONE HCL) 450 MG ASDIR IV (CKD) Dextrose/Water (D5%W NON-DEHP) 250 ML Amiodarone HCl (NEXTERONE 150MG/D5W 100ML) 100 M L STAT STA IV (DC) Amlodipine Besylate (NORVASC) 5 MG BEDTIME PO Furosemide (LASIX 20MG INJ) 20 MG BID 9A 5P IV Hydrocodone Bitart/Acetaminophen (NORCO 5/325) 2 TAB Q4H PRN PRN PO Ipratropium [employer] (ATROVENT) [address] N PRN INH Cyanocobalamin (Vitamin B-12 500 mcg tab) 500 MC G DAILY PO Ferrous Sulfate (FERROUS SULFATE) 325 MG DAILY P O Bisacodyl (DULCOLAX) 10 MG ONCE PRN RECTAL Tramadol HCl (ULTRAM) 25 MG QID PRN PO Captopril (CAPOTEN) 6.25 MG Q8HR PO Atorvastatin Calcium (LIPITOR) 40 MG 2100 PO Mesalamine (DELZICOL 400MG CAP DR.) 800 MG BID P O Polyethylene Glycol (MIRALAX) 17 GM DAILY PO Melatonin (Melatonin) 6 MG BEDTIME PO Docusate Sodium (COLACE) 100 MG BID PO Sennosides (Senna Lax 8.6 MG TABLET) 17.2 MG BED TIME PO Aspirin (ASPIRIN) 81 MG DAILY PO Acetaminophen (TYLENOL) 650 MG Q4H PRN PRN PO Acetaminophen (TYLENOL) 650 MG Q4H PRN PRN RECTA L Calcium Chloride (CALCIUM CHLORIDE) 1 GM ASDIR P RN IV Epinephrine (ADRENALIN CHLORIDE) 4 MG ASDIR IV Dextrose/Water (DEXTROSE 5% WATER) 246 ML Glucagon (GLUCAGON) 1 MG ASDIR PRN IM Magnesium Sulfate (MAGNESIUM SULFATE 4GM/SWFI 10 0ML) 100 ML ASDIR PRN IV Magnesium Sulfate (MAGNESIUM SULFATE 2GM/SWFI 50 ML) 50 ML ASDIR PRN IV Magnesium Sulfate/Dextrose (MAGNESIUM SULFATE 1G M/D5W 100ML) 100 ML ASDIR PRN IV Nitroglycerin/Dextrose (NITROGLYCERIN 50,000MCG/ D5W 250ML) 250 ML ASDIR IV Norepinephrine Bitartrate (NOREPINEPHRINE 8 MG/N S 250 ML) 250 ML TITRATE IV Ondansetron HCl (ZOFRAN) 4 MG Q6H PRN PRN IV Potassium Chloride (KCL 20MEQ/SWFI 100ML) 100 ML ASDIR PRN IV Sodium Bicarbonate (SODIUM BICARBONATE) 50 MEQ A SDIR PRN IV Sodium Chloride (SODIUM CHLORIDE 0.9%) 1,000 ML .Q20H IV Sodium Chloride (SODIUM CHLORIDE 0.9%) 250 ML Q2 4H IV Pacemaker: permanent Physical Exam General appearance: alert, awake, oriented ENT: normal nose Neck: non-tender, no JVD Cardiovascular: CV assessment: regular rate and rhythm Murmur assessment: heart murmur Respiratory: decreased breath sounds, on oxygen, no distress Abdomen: soft, non-tender, normal bowel sounds Genitourinary: no flank pain, no urinary cathete r Upper extremity: Right radial site: intact, no bleeding, no drai nage, no ecchymosis, no hematoma Lower extremity: LE assessment: edema (trace) Musculoskeletal: normal inspection Neuro/CHARGING MANIPULATOR: alert, oriented X 3, normal speech Skin: dry, intact Psychiatry: normal affect, normal judgment/insig ht, normal mood Results Findings/Data: Laboratory Tests 10/19 236 Chemistry Sodium (134 - 147 mEq/L) 129 L Potassium (3.4 - 5.0 mEq/L) 4.0 Chloride (100 - 108 mEq/L) 95 L Carbon Dioxide (21 - 33 mEq/l) 28 Anion Gap (0 - 20) 10 BUN (7 - 18 mg/dL) 8 Creatinine (0.6 - 1.3 mg/dL) 0.7 Glomerular Filtr Rate (70 - 80) 90.1 H Glucose (70 - 110 mg/dL) 125 H Calcium (8.0 - 10.5 mg/dL) 8.7 Magnesium (1.80 - 2.40 mg/dL) 1.95 Laboratory Tests 10/19 236 Hematology WBC (4.5 - 11.0 x10 3/uL) 14.4 H RBC (3.54 - 5.02 x10 6/uL) 2.84 L Hgb (11.0 - 15.0 g/dL) 8.1 L Hct (33.0 - 45.0 %) 24.5 L MCV (81.0 - 99.0 fL) 86.3 MCH (27.0 - 33.0 pg) 28.5 MCHC (33.0 - 37.0 g/dL) 33.1 RDW (11.5 - 14.5 %) 14.8 H Plt Count (150 - 400 x10 3/uL) 269 MPV (7.0 - 9.0 fL) 9.4 H Neut % (Auto) (56.0 - 77.0 %) 79.9 H Lymph % (Auto) (14.0 - 32.0 %) 7.2 L Nelson % (Auto) (4.8 - 9.0 %) 8.6 Eos % (Auto) (0.3 - 3.7 %) 2.9 Baso % (Auto) (0.0 - 2.0 %) 0.6 Neut # (Auto) (2.0 - 7.6 x10 3/uL) 11.50 H Lymph # (Auto) (1.0 - 3.8 x10 3/uL) 1.04 Nelson # (Auto) (0.1 - 0.8 x10 3/uL) 1.23 H Eos # (Auto) (0.0 - 0.2 x10 3/uL) 0.42 H Baso # (Auto) (0.0 - 0.2 x10 3/uL) 0.08 Abs Immat Gran (auto) (0.00 - 0.03 x10 3/uL) 0. 11 H Add Manual Diff NO Immature Gran % (0.0 - 2.0 %) 0.8 Nucleated RBC % (0 - 0 %) 0.1 H Nucleated RBCs # (Man) (0.0 - 0.1 x10 3/uL) 0.0 2 Laboratory Tests 10/19 0237 Chemistry Magnesium (1.80 - 2.40 mg/dL) 1.95 Radiology data: Recent Impressions: RADIOLOGY - XR CHEST 1 V 10/18 1630 Report Impression - Status: SIGNED Entered: 10/18/2022 1931 IMPRESSION: Interval placement of new left cardiac device is present. Impression By: [email or web address] - Nelson Martin M.D. RADIOLOGY - XR CHEST 1 V 10/19 0514 Report Impression - Status: SIGNED Entered: 10/19/2022 0659 IMPRESSION: No significant interval change. Impression By: [email or web address] - Jonh Patel Telemetry Interpretation: afib RVR Diagnosis, Assessment Plan Plan discussed with: patient, family, nurse Free Text DxA P Notes Free Text DxA P Notes: 77 YO female with PMHx of hy pertension, hyperlipidemia, carotid artery disease s /p R CEA who has been having progressively worse madeleine shortness of breath. She was found to have severe mitral valve regurgitat ion. 1. Severe mitral valve regurgitation s/p MVR, PV I, and ALAA * post op care per CTS and ICC * continue ASA * repeat echo LVEF preserved * on IV lasix 20 mg BID, negative fluid balance 2. Hypertension * BP remains high * restart BB * continue amlodipine 5 mg daily 3. Hyperlipidemia * continue statin 4. Complete heart block/Sick sinus syndrome * s/p ppm placement 5. Post-op afib RVR (10/18) * remains in afib RVR - rebolus with amiodarone gtt plus PO * restart BB MDM by Dr. Bowden. at 1430 RPT #:[id number] END OF REPORT 2022-10-19 [id number] [facility] 08:20:00-00:[address] [place] [address] PATIENT NAME: SWEETIE AMAYA ADMIT DATE: 10/11 ACCOUNT NO: [id number] ROOM NO: [id number] AGE: 77 REPORT TYPE: eELECTROCARDIOGRAM REPORT SEX: F ADMITTING PHYSICIAN:Dory Hoff MD ATTENDING PHYSICIAN:Dory Hoff MD Order: [id number] Test Reason : EKG Test Date/Time Stamp: MonOct 19 2022 08:20:27 Blood Pressure : / mmHG Vent. Rate : 107 BPM Atrial Rate : 000 BPM P-R Int : 000 ms QRS Dur : 090 ms QT Int : 362 ms P-R-T Axes : 000 050 244 degree s QTc Int : 483 ms Atrial fibrillation with rapid ventricular respo nse Marked ST abnormality, possible inferior subendo cardial injury Abnormal ECG When compared with ECG of 18-OCT-2022 09:57, No significant change was found Confirmed by MD ABELARDO, PRAFUL ([id number]) on 10/20/19 1:45:10 PM Referred By: Dory Hoff Confirmed by:PRAFUL BEYER MD Electronically Signed by Praful Zhou MD on 0 10/19/22 at 1345 PATIENT NAME: SWEETIE AMAYA 152022 18[birth year] [facility] 07:40:00-00:00 [facility] Critical Care Progress Note REPORT#:[id number] REPORT STATUS: Signed DATE:10/19/22 TIME: 0740 PATIENT: SWEETIE AMAYA UNIT #: [id number] ROOM/BED: [address] : 47 AGE: 77 SEX: F ATTEND: Bella Hoff MD ADM AUTHOR: Sumanth Gray MD * ALL edits or amendments must be made on the Onevest/computer document * Subjective Chief complaint: Severe mitral regurgitation HPI: 77-year-old female with past medical history sig nificant for hypertension, dyslipidemia, paroxysmal atrial fibrilla tion, carotid stenosis status post CEA in 2020 was evaluated for shortness of b reath and dyspnea on exertion over the past several months. She denies any symptoms at rest. No angina symptoms were reported. Patient reported lower extremity weakn ess along with shortness of breath. She underwent echocardiogram in the outp atient setting that showed EF of 60 to 65% with a dilated left atrium, moderat e to severe mitral regurgitation. 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 There was possibility of chordae tendonee rupture evidence of trace tricuspid regurgitation with ascending aorta measuring 3.7 cm. Patient underwent left heart catheterization that showed no significant coronary artery disease. Patient underwent CT surgery evaluation for dre re mitral valve regurgitation for possible mitral valve replacement. P mirtha was brought to CVICU room #2208 oral intubated on the ventilator. She will be fa st-track for extubation. Comments: Out of bed in the chair Had pacemaker yesterday Rarely paced overnight Tolerating PO, voiding, small BM Objective General VS/I O Last Documented: Result Date Time Pulse Ox 96 10/19 07 B/P 164/68 10/19 07 B/P Mean 98 10/19 07 Pulse 77 10/19 0700 Resp 20 10/19 07 O2 Delivery High flow nasal cannula 10/18 2014 O2 Flow Rate 2 10/18 2014 Temp 99.1 10/18 0630 FiO2 28 10/18 0342 24 hour I O ending at 0700: 10/19 0700 10/18 1900 Intake Total 340.00 Output Total 900 Balance 340.00 -900 Intake, IV 100.00 Intake, Oral 240 Number Voids 5 Output, Urine 900 Patient 79.3 kg Weight Weight Standing scale Measurement Method PATIENT WEIGHT: Weight (lb): 174 Weight (oz): 13.23 Weight (kg): 79.300 Medications: Active Meds + DC'd Last 24 Hrs Amiodarone HCl (CORDARONE) 200 MG BID 9A 5P PO Doxycycline Monohydrate (DOXYCYCLINE MONOHYDRATE ) 100 MG Q12HR PO Metoprolol Tartrate (LOPRESSOR) 25 MG Q12HR PO Magnesium Sulfate (MAGNESIUM SULFATE 2GM/SWFI 50 ML) 50 ML ONCE ONE IV Magnesium Citrate (MAGNESIUM CITRATE) 300 ML ONC E ONE PO (DC) Sodium Biphosphate/Sodium Phosphate (FLEET SALIN E ENEMA ADULT) 1 ENEMA ONCE ONE RECTAL (DC) Fentanyl Citrate (SUBLIMAZE) 0 .STK-MED ONE .ROU TE (DC) Midazolam HCl (VERSED) 0 .STK-MED ONE .ROUTE (DC ) Gentamicin Sulfate (GARAMYCIN) 0 .STK-MED ONE .R OUTE (DC) Lidocaine/Epinephrine (XYLOCAINE W/EPI 2% 20ML) 0 .STK-MED ONE LOCAL (DC ) Sodium Bicarbonate (SODIUM BICARBONATE) 0 .STK-M ED ONE IV (DC) Fentanyl Citrate (SUBLIMAZE) 0 .STK-MED ONE .ROU TE (DC) Midazolam HCl (VERSED) 0 .STK-MED ONE .ROUTE (DC ) Iopamidol (ISOVUE-370 100ML) 0 .STK-MED ONE IV ( DC) Vancomycin HCl (VANCOMYCIN HCL) 0 .STK-MED ONE . ROUTE (DC) Amiodarone HCl (AMIODARONE HCL) 450 MG ASDIR IV (CKD) Dextrose/Water (D5%W NON-DEHP) 250 ML Amiodarone HCl (NEXTERONE 150MG/D5W 100ML) 100 M L STAT STA IV (DC) Amlodipine Besylate (NORVASC) 5 MG BEDTIME PO Furosemide (LASIX 20MG INJ) 20 MG BID 9A 5P IV Hydrocodone Bitart/Acetaminophen (NORCO 5/325) 2 TAB Q4H PRN PRN PO Sodium Chloride (SODIUM CHLORIDE) 10 ML BID IV ( DC) Sodium Chloride (SODIUM CHLORIDE) [address] N IV (DC) Ipratropium [employer] (ATROVENT) 500 MCG RTQ2H PRN PRN INH Cyanocobalamin (Vitamin B-12 500 mcg tab) 500 MC G DAILY PO Ferrous Sulfate (FERROUS SULFATE) 325 MG DAILY P O Bisacodyl (DULCOLAX) 10 MG ONCE PRN RECTAL Tramadol HCl (ULTRAM) 25 MG QID PRN PO Captopril (CAPOTEN) 6.25 MG Q8HR PO Atorvastatin Calcium (LIPITOR) 40 MG 2100 PO Insulin Human Lispro (HUMALOG) 0 AC HS SUBQ (DC) Dextrose/Water (DEXTROSE 10% IN WATER) 125 ML DIR PRN IV (DC) Dextrose/Water (DEXTROSE 10% IN WATER) 250 ML DIR PRN IV (DC) Glucagon (GLUCAGON) 1 MG ASDIR PRN IM (DC) Mesalamine (DELZICOL 400MG CAP DR.) 800 MG BID P O Polyethylene Glycol (MIRALAX) 17 GM DAILY PO Melatonin (Melatonin) 6 MG BEDTIME PO Docusate Sodium (COLACE) 100 MG BID PO Sennosides (Senna Lax 8.6 MG TABLET) 17.2 MG BED TIME PO Aspirin (ASPIRIN) 81 MG DAILY PO Acetaminophen (TYLENOL) 650 MG Q4H PRN PRN PO Acetaminophen (TYLENOL) 650 MG Q4H PRN PRN RECTA L Calcium Chloride (CALCIUM CHLORIDE) 1 GM ASDIR P RN IV Epinephrine (ADRENALIN CHLORIDE) 4 MG ASDIR IV Dextrose/Water (DEXTROSE 5% WATER) 246 ML Glucagon (GLUCAGON) 1 MG ASDIR PRN IM Magnesium Sulfate (MAGNESIUM SULFATE 4GM/SWFI 10 0ML) 100 ML ASDIR PRN IV Magnesium Sulfate (MAGNESIUM SULFATE 2GM/SWFI 50 ML) 50 ML ASDIR PRN IV Magnesium Sulfate/Dextrose (MAGNESIUM SULFATE 1G M/D5W 100ML) 100 ML ASDIR PRN IV Nitroglycerin/Dextrose (NITROGLYCERIN 50,000MCG/ D5W 250ML) 250 ML ASDIR IV Norepinephrine Bitartrate (NOREPINEPHRINE 8 MG/N S 250 ML) 250 ML TITRATE IV Ondansetron HCl (ZOFRAN) 4 MG Q6H PRN PRN IV Potassium Chloride (KCL 20MEQ/SWFI 100ML) 100 ML ASDIR PRN IV Sodium Bicarbonate (SODIUM BICARBONATE) 50 MEQ A SDIR PRN IV Sodium Chloride (SODIUM CHLORIDE 0.9%) 1,000 ML .Q20H IV Sodium Chloride (SODIUM CHLORIDE 0.9%) 250 ML Q2 4H IV Results Findings/data: Laboratory Tests 10/197 Chemistry Sodium (134 - 147 mEq/L) 129 L Potassium (3.4 - 5.0 mEq/L) 4.0 Chloride (100 - 108 mEq/L) 95 L Carbon Dioxide (21 - 33 mEq/l) 28 Anion Gap (0 - 20) 10 BUN (7 - 18 mg/dL) 8 Creatinine (0.6 - 1.3 mg/dL) 0.7 Glomerular Filtr Rate (70 - 80) 90.1 H Glucose (70 - 110 mg/dL) 125 H Calcium (8.0 - 10.5 mg/dL) 8.7 Magnesium (1.80 - 2.40 mg/dL) 1.95 Laboratory Tests 10/19 0237 Hematology WBC (4.5 - 11.0 x10 3/uL) 14.4 H RBC (3.54 - 5.02 x10 6/uL) 2.84 L Hgb (11.0 - 15.0 g/dL) 8.1 L Hct (33.0 - 45.0 %) 24.5 L MCV (81.0 - 99.0 fL) 86.3 MCH (27.0 - 33.0 pg) 28.5 MCHC (33.0 - 37.0 g/dL) 33.1 RDW (11.5 - 14.5 %) 14.8 H Plt Count (150 - 400 x10 3/uL) 269 MPV (7.0 - 9.0 fL) 9.4 H Neut % (Auto) (56.0 - 77.0 %) 79.9 H Lymph % (Auto) (14.0 - 32.0 %) 7.2 L Nelson % (Auto) (4.8 - 9.0 %) 8.6 Eos % (Auto) (0.3 - 3.7 %) 2.9 Baso % (Auto) (0.0 - 2.0 %) 0.6 Neut # (Auto) (2.0 - 7.6 x10 3/uL) 11.50 H Lymph # (Auto) (1.0 - 3.8 x10 3/uL) 1.04 Nelson # (Auto) (0.1 - 0.8 x10 3/uL) 1.23 H Eos # (Auto) (0.0 - 0.2 x10 3/uL) 0.42 H Baso # (Auto) (0.0 - 0.2 x10 3/uL) 0.08 Abs Immat Gran (auto) (0.00 - 0.03 x10 3/uL) 0. 11 H Add Manual Diff NO Immature Gran % (0.0 - 2.0 %) 0.8 Nucleated RBC % (0 - 0 %) 0.1 H Nucleated RBCs # (Man) (0.0 - 0.1 x10 3/uL) 0.0 2 Laboratory Tests 10/19/22 0237: [Embedded Image Not Available] Radiology data Recent Impressions: RADIOLOGY - XR CHEST 1 V 10/18 1630 Report Impression - Status: SIGNED Entered: 10/18/2022 1931 IMPRESSION: Interval placement of new left cardiac device is present. Impression By: [email or web address] Juan José Martin M.D. RADIOLOGY - XR CHEST 1 V 10/19 0514 Report Impression - Status: SIGNED Entered: 10/19/2022 0659 IMPRESSION: No significant interval change. Impression By: [email or web address] - Jonh Patel Free Text Obj Notes Free Text Obj Notes: General appearance: Elderly female in no acute d istress, interactive and conversational HEENT: atraumatic, normocephalic, moist mucosal membranes Neck: full range of motion, supple/no meningismu s Cardiovascular: S1-S2 irregular irregular, tachy cardia Respiratory: symmetric expansion, no acute respi ratory distress Abdomen: soft, non-tender, no distention, no gua rding Extremities: pedal pulses palpable, moves all, n o clubbing, no cyanosis, mild edema Musculoskeletal: normal inspection, no muscle sp asm Neuro/CHARGING MANIPULATOR: Alert and oriented x3, CNII-XII gross ly intact, no motor deficits Skin: dry, intact and clean surgery site Diagnosis, Assessment Plan Free text A P: 77-year-old female with Severe mitral regurgitation status post MVR on Acute pulmonary insufficiency following major ca rdiothoracic surgery Cardiogenic shock Acute blood loss anemia Metabolic acidosis Hypokalemia Assessment and Plan: Patient was received in room #2208 after mitral valve replacement for severe mitral regurgitation. Since she also underwent pulmonary vein isolatio n along with ligation of left atrial appendage. Patient received 27 mm mitral is bioprosthetic valve. She is currently a paced. Normal LV function. No parava lvular leak or regurgitation after replacement. PA pressures are at 39/19 mmH g. She is oral intubated with ET tube of 7.0 secured at 21 cm at the teeth. Pa tient received 1.2 L of crystalloids intraoperativel y along with 300 mL of Amicar, 430 mL of Cell Saver. She had 100 mL of EBL and 530 mL of urine outpu t. She is currently on norepinephrine at 1 and epinephrine at 3 mics. Patient received vancomycin and Ancef for antibiotic prophylaxis. She is currently on insulin at 6 units/h and the latest blood glucose is 180 mg/dL. She was f ound to be hypokalemic with a potassium of 3.4 and is receiving 40 mg of potas sium chloride intravenously. She also received 2 g of magnesium sulfate. Ches t tube output is 25 mL in the left pleural and 15 mL in the mediastinal chest tube. Pupils are 2 mm bilaterally symmetrical reactive to light. She i s currently on assist-control at 20 tidal volume 450 PEEP of 5 and 50% FiO2 and the latest blood gas shows a pH of 7.35, pCO2 of 40 mmHg, pO2 of 109 mmHg and bicarbonate of 22 mmol with base excess at -3.1. Creatinine 0.60 mg/dL, gluc ose 189 mg/dL, potassium 4.0 mmol, ionized calcium 1.37 mg/dL, hemoglobin 11. 1 g/dL with hematocrit of 33% and sodium 139. Currently sinus rhythm 80 A-pace d, blood pressure 129/47 mmHg and pulse ox 100% while on 50% FiO2. PA pressure is 39/19 mmHg. Sweetie Amaya is a 77-year-old female with past medical history significant for hypertension, dyslipidem ia, paroxysmal atrial fibrillation, carotid stenosis status post CEA in 2020 was evaluated for shortn ess of breath and dyspnea on exertion over the past several months. She denie s any symptoms at rest. No angina symptoms were reported. Patient r eported lower extremity weakness along with shortness of breath. She underwent echocard iogram in the outpatient setting that showed EF of 60 to 65% with a dilat ed left atrium, moderate to severe mitral regurgitation. 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 There was possibility of chordae tendonee ruptur e evidence of trace tricuspid regurgitation with ascending aorta measuring 3.7 cm. Patient underwent left heart catheterization that showed no significant coronary artery disease. Patient underwent CT surgery evaluation for dre re mitral valve regurgitation for possible mitral valve replacement. Alina shannon was brought to CVICU room #2208 oral intubated on the ventilator. She will be fa st-track for extubation. Post-op day 0 after mitral valve replacement for severe mitral regurgitation along with pulmonary vein isolation as well as l eft atrial appendecectomy Patient received 27 mm Mitris bioprosthetic valv e Patient is on elective ventilator depend ence for acute pulmonary insufficiency following major cardiothoracic surgery Currently on assist-control at 20 tidal volume 4 50 PEEP of 5 and 50% FiO2 Latest blood gas shows 7.35, pCO2 of 40 mmHg, pO2 of 109 mmHg and bicarbonate of 22 mmol with base excess at -3.1 Mild metabolic acidosis, give 1 amp of sodium bi carb Follow ABG Patient is altered at this time recovering from anesthesia She will be fast-track for extubate Monitor chest tube output Left pleural output is 25 mL and mediastinal out put is 15 mL Hypomagnesemia, patient received 2 g of magnesiu m sulfate Hypokalemia with a potassium of 3.4 mmol and pat ient receiving 40 mg of potassium chloride Glycemic control with insuli n at 6 units/h and latest blood glucose is 180 mg/dL Perioperative antibiotic therapy with vancomycin and Ancef Patient is currently on vaso pressor and inotropic support with norepinephrine at 1 mcg and epinephrine at 3 mcg Follow blood pressure closely Use albumin as needed No paravalvular leak or mitral regurgitation pos toperatively Normal LV function SCDs for DVT prophylaxis 10/13 Appears neuro intact, multimodal pain control Sats well after extubation, wean O2, encourage I -S, ABG and CXR reviewed BP control with nitroglyceri n drip, remains pacer dependent, keep AV pacing and stop beta-blockers and amiodarone per CT surgery Cr stable, good urine output, lactic acidosis cl eared s/p resuscitation Oral diet as tolerated, bowel regimen, trend LFT s, replete hypomagnesemia Leukocytosis with downtrending WBC, given periop antibiotics Hgb trending down, no evidence of active bleed, monitor CTs output Blood glucose control with insulin drip, transit ion to sliding scale insulin Encourage PT/OT and out of bed as tolerated, DVT prophylaxis with SCDs 10/14 Appears neuro intact, multimodal pain control Sats well on nasal cannula, wean O2, encourage I -S, ABG and CXR reviewed BP control controlled, remai ns pacer dependent, keep AV pacing and stay off beta -blockers and amiodarone per CT surgery Cr stable, good urine output Oral diet as tolerated, bowel regimen, trend LFT s, replete electrolytess Hgb trending down, no evidence of active bleed Blood glucose control with sliding scale insulin Encourage PT/OT and out of bed as tolerated, DVT prophylaxis with SCDs Discussed with CV surgery and ICU team Critical care time 34 minutes 10/15 Appears neuro intact, multimodal pain control Sats well on nasal cannula, wean O2, encourage I -S, ABG and CXR reviewed BP control controlled, remai ns pacer dependent, keep AV pacing and stay off beta -blockers and amiodarone per CT surgery Cr stable, good urine output, Lasix 20 mg p.o. d aily, DC Gonzales Oral diet as tolerated, bowel regimen, trend LFT s, replete electrolytess Hgb is stable no evidence of active bleed Blood glucose control with sliding scale insulin Encourage PT/OT and out of bed as tolerated, DVT prophylaxis with SCDs Discussed with CV surgery and ICU team Critical care time 31 minutes 10/16 Appears neuro intact, multimodal pain control Sats well on nasal cannula, wean O2, encourage I -S, CXR reviewed BP control controlled, remai ns pacer dependent, keep AV pacing and stay off beta -blockers and amiodarone per CT surgery. EP on b oard, plan for pacemaker tomorrow Cr stable, good urine output Oral diet as tolerated, bowel regimen, trend LFT s, replete electrolytess Hgb is stable no evidence of active bleed Leukocytosis reactive, no evidence of infection Blood glucose control with sliding scale insulin Encourage PT/OT and out of bed as tolerated, DVT prophylaxis with SCDs Discussed with CV surgery and ICU team Critical care time 33 minutes 10/17 Remains neuro intact, multimodal pain control Sats well on NC, wean O2, aggressive I-S, CXR re viewed BP fairly controlled, on diuresis and Norvasc, r emains paced with junctional rhythm/bigeminy, keep off beta-blockers and amio darone, plan for permanent pacemaker per EP Cr stable, good urine output , monitor while on diuresis, replete hypomagnesemia Tolerating oral diet, had bowel movement , minimize free water for hyponatremia Mild leukocytosis, likely reactive, monitor off antibiotics Hgb appears stable, no evidence of active bleedi ng Blood glucose controlled, not requiring sliding scale insulin Tolerating PT/OT and out of bed, IPR consulted DVT prophylaxis with SCDs 10/18 Remains neuro intact, multimodal pain control, a void narcotic use Sats well on NC, wean O2, aggressive I-S, CXR re viewed BP fairly controlled, contin ue Norvasc and JENNIFER, A-fib with RVR, start amiodarone per protocol, add beta-blockers, still having bi geminy, plan for permanent pacemaker per EP Cr stable, good urine output, continue diuresis, replete hypomagnesemia Tolerating oral diet, bowel regimen, minimize fr ee water for hyponatremia Mild leukocytosis, WBC trending down, monitoring off antibiotics Hgb remains stable, no evidence of active bleedi ng at this time Blood glucose appears well controlled, discontin ue sliding scale insulin Tolerating PT/OT and out of bed, IPR consulted, DVT prophylaxis with SCDs 10/19 Remains neuro intact, multimodal pain control, a void narcotic use Sats well on NC, wean O2 as tolerated, aggressiv e I-S, CXR reviewed BP control, continue current anti-HTN me ds, amiodarone for A-fib with RVR, PPM placed Cr stable, good urine output, continue diuresis, replete hypomagnesemia Tolerating oral diet, had bowel movement, minimi ze free water intake for hyponatremia Mild leukocytosis, trend WBC, continue prophylac tic antibiotics s/p PPM placement Hgb remains stable, no evidence of active bleedi ng at this time Blood glucose appears well controlled off slidin g scale insulin Tolerating PT/OT and out of bed, plan for IPR, D VT prophylaxis with SCDs Consultants: cardiology, cardiovascular surgery, critical/clubhouse manager Plan discussed with: patient, family, co nsultants, nurse, interdisc care team, pharmacy/pharmacist Critical care time: Minutes: 37 Electronically Signed by Sumanth Gray MD on 09/25 11/16 at 1151 RPT #:[id number] END OF REPORT 2022-10-19 [facility] 07:21:00-00:00 [facility] Cardiothoracic Surgery Prog REPORT#:[id number] REPORT STATUS: Signed DATE:10/19/22 TIME: 720 PATIENT: SWEETIE AMAYA UNIT #: [id number] ROOM/BED: 2208-1 : 47 AGE: 77 SEX: F ATTEND: Bella Hoff MD ADM AUTHOR: Navdeep Carey MD * ALL edits or amendments must be made on the [employer]/computer document * Subjective HPI: dual-chamber pacemaker implanted yesterday No issues overnight Good pain control Objective General VS/I O Last Documented: Result Date Time Pulse Ox 96 10/19 07 B/P 164/68 10/19 699 B/P Mean 98 10/19 699 Pulse 77 10/19 07 Resp 20 10/19 07 O2 Delivery High flow nasal cannula 10/18 2014 O2 Flow Rate 2 10/18 2014 Temp 37.3 10/18 0630 FiO2 28 10/18 0342 24 hour I O ending at 0700: 10/19 0700 10/18 1900 Intake Total 340.00 Output Total 900 Balance 340.00 -900 Intake, IV 100.00 Intake, Oral 240 Number Voids 5 Output, Urine 900 Patient 79.3 kg Weight Weight Standing scale Measurement Method PATIENT WEIGHT: Weight (lb): 174 Weight (oz): 13.23 Weight (kg): 79.300 Physical Exam General appearance: alert, awake, oriented Wound/incision: Location: sternum Site condition: dressing clean dry, dressing in tact HEENT: anicteric, mucosal membranes moist, pupil s reactive to light Neck: full range of motion, non-tender Cardiovascular: regular rate rhythm, A paced Respiratory: aerating well Abdomen: soft, non-tender Genitourinary: urine Extremities: dry, moves all Musculoskeletal: full range of motion Neuro/CHARGING MANIPULATOR: alert, oriented X 3 Skin: dry, intact Psychiatry: normal affect, normal mood Results Findings/Data: Laboratory Tests 10/19 236 Chemistry Sodium (134 - 147 mEq/L) 129 L Potassium (3.4 - 5.0 mEq/L) 4.0 Chloride (100 - 108 mEq/L) 95 L Carbon Dioxide (21 - 33 mEq/l) 28 Anion Gap (0 - 20) 10 BUN (7 - 18 mg/dL) 8 Creatinine (0.6 - 1.3 mg/dL) 0.7 Glomerular Filtr Rate (70 - 80) 90.1 H Glucose (70 - 110 mg/dL) 125 H Calcium (8.0 - 10.5 mg/dL) 8.7 Magnesium (1.80 - 2.40 mg/dL) 1.95 Laboratory Tests 10/19 0237 Hematology WBC (4.5 - 11.0 x10 3/uL) 14.4 H RBC (3.54 - 5.02 x10 6/uL) 2.84 L Hgb (11.0 - 15.0 g/dL) 8.1 L Hct (33.0 - 45.0 %) 24.5 L MCV (81.0 - 99.0 fL) 86.3 MCH (27.0 - 33.0 pg) 28.5 MCHC (33.0 - 37.0 g/dL) 33.1 RDW (11.5 - 14.5 %) 14.8 H Plt Count (150 - 400 x10 3/uL) 269 MPV (7.0 - 9.0 fL) 9.4 H Neut % (Auto) (56.0 - 77.0 %) 79.9 H Lymph % (Auto) (14.0 - 32.0 %) 7.2 L Nelson % (Auto) (4.8 - 9.0 %) 8.6 Eos % (Auto) (0.3 - 3.7 %) 2.9 Baso % (Auto) (0.0 - 2.0 %) 0.6 Neut # (Auto) (2.0 - 7.6 x10 3/uL) 11.50 H Lymph # (Auto) (1.0 - 3.8 x10 3/uL) 1.04 Nelson # (Auto) (0.1 - 0.8 x10 3/uL) 1.23 H Eos # (Auto) (0.0 - 0.2 x10 3/uL) 0.42 H Baso # (Auto) (0.0 - 0.2 x10 3/uL) 0.08 Abs Immat Gran (auto) (0.00 - 0.03 x10 3/uL) 0. 11 H Add Manual Diff NO Immature Gran % (0.0 - 2.0 %) 0.8 Nucleated RBC % (0 - 0 %) 0.1 H Nucleated RBCs # (Man) (0.0 - 0.1 x10 3/uL) 0.0 2 Diagnosis, Assessment Plan Hospital course to date: Pacemaker check today Transfer to cardiac Restart beta-milla and amiodarone Discharge planning at 0723 RPT #:[id number] END OF REPORT 2022-10-19 [facility] 06:46:00-00:00 [facility] ([facility]) EP Progress Note REPORT#:[id number] REPORT STATUS: Signed DATE:10/19/22 TIME: 06 PATIENT: SWEETIE AMAYA UNIT #: [id number] ROOM/BED: [place] [id number] : 47 AGE: 77 SEX: F ATTEND: Bella Hoff MD ADM AUTHOR: Vinny Mcgee * ALL edits or amendments must be made on the [employer]/computer document * Objective General VS/I O Last Documented: Result Date Time Pulse Ox 94 10/18 2014 O2 Delivery High flow nasal cannula 10/18 2014 O2 Flow Rate 2 10/18 2015 B/P 178/82 10/18 1700 B/P Mean 118 10/18 1700 Pulse 67 10/18 1700 Resp 16 10/18 1700 Temp 37.3 10/18 0630 FiO2 28 10/18 0342 24 hour I O ending at 0700: 10/19 0700 10/18 1900 Intake Total Output Total 900 Balance -900 Output, Urine 900 PATIENT WEIGHT: Weight (lb): 177 Weight (oz): 0.5 Weight (kg): 80.300 Medications: Active Meds + DC'd Last 24 Hrs Sodium Biphosphate/Sodium Phosphate (FLEET SALIN E ENEMA ADULT) 1 ENEMA ONCE ONE RECTAL (DC) Fentanyl Citrate (SUBLIMAZE) 0 .STK-MED ONE .ROU TE (DC) Midazolam HCl (VERSED) 0 .STK-MED ONE .ROUTE (DC ) Gentamicin Sulfate (GARAMYCIN) 0 .STK-MED ONE .R OUTE (DC) Lidocaine/Epinephrine (XYLOCAINE W/EPI 2% 20ML) 0 .STK-MED ONE LOCAL (DC ) Sodium Bicarbonate (SODIUM BICARBONATE) 0 .STK-M ED ONE IV (DC) Fentanyl Citrate (SUBLIMAZE) 0 .STK-MED ONE .ROU TE (DC) Midazolam HCl (VERSED) 0 .STK-MED ONE .ROUTE (DC ) Iopamidol (ISOVUE-370 100ML) 0 .STK-MED ONE IV ( DC) Vancomycin HCl (VANCOMYCIN HCL) 0 .STK-MED ONE . ROUTE (DC) Amiodarone HCl (AMIODARONE HCL) 450 MG ASDIR IV (CKD) Dextrose/Water (D5%W NON-DEHP) 250 ML Amiodarone HCl (NEXTERONE 150MG/D5W 100ML) 100 M L STAT STA IV (DC) Amlodipine Besylate (NORVASC) 5 MG BEDTIME PO Furosemide (LASIX 20MG INJ) 20 MG BID 9A 5P IV Hydrocodone Bitart/Acetaminophen (NORCO 5/325) 2 TAB Q4H PRN PRN PO Sodium Chloride (SODIUM CHLORIDE) 10 ML BID IV ( DC) Sodium Chloride (SODIUM CHLORIDE) [address] N IV (DC) Ipratropium [employer] (ATROVENT) 500 MCG RTQ2H PRN PRN INH Cyanocobalamin (Vitamin B-12 500 mcg tab) 500 MC G DAILY PO Ferrous Sulfate (FERROUS SULFATE) 325 MG DAILY P O Bisacodyl (DULCOLAX) 10 MG ONCE PRN RECTAL Tramadol HCl (ULTRAM) 25 MG QID PRN PO Captopril (CAPOTEN) 6.25 MG Q8HR PO Atorvastatin Calcium (LIPITOR) 40 MG 2100 PO Insulin Human Lispro (HUMALOG) 0 AC HS SUBQ (DC) Dextrose/Water (DEXTROSE 10% IN WATER) 125 ML DIR PRN IV (DC) Dextrose/Water (DEXTROSE 10% IN WATER) 250 ML DIR PRN IV (DC) Glucagon (GLUCAGON) 1 MG ASDIR PRN IM (DC) Mesalamine (DELZICOL 400MG CAP DR.) 800 MG BID P O Polyethylene Glycol (MIRALAX) 17 GM DAILY PO Melatonin (Melatonin) 6 MG BEDTIME PO Docusate Sodium (COLACE) 100 MG BID PO Sennosides (Senna Lax 8.6 MG TABLET) 17.2 MG BE DTIME PO Aspirin (ASPIRIN) 81 MG DAILY PO Acetaminophen (TYLENOL) 650 MG Q4H PRN PRN PO Acetaminophen (TYLENOL) 650 MG Q4H PRN PRN RECTA L Calcium Chloride (CALCIUM CHLORIDE) 1 GM ASDIR P RN IV Epinephrine (ADRENALIN CHLORIDE) 4 MG ASDIR IV Dextrose/Water (DEXTROSE 5% WATER) 246 ML Glucagon (GLUCAGON) 1 MG ASDIR PRN IM Magnesium Sulfate (MAGNESIUM SULFATE 4GM/SWFI 10 0ML) 100 ML ASDIR PRN IV Magnesium Sulfate (MAGNESIUM SULFATE 2GM/SWFI 50 ML) 50 ML ASDIR PRN IV Magnesium Sulfate/Dextrose (MAGNESIUM SULFATE 1G M/D5W 100ML) 100 ML ASDIR PRN IV Nitroglycerin/Dextrose (NITROGLYCERIN 50,000MCG/ D5W 250ML) 250 ML ASDIR IV Norepinephrine Bitartrate (NOREPINEPHRINE 8 MG/N S 250 ML) 250 ML TITRATE IV Ondansetron HCl (ZOFRAN) 4 MG Q6H PRN PRN IV Potassium Chloride (KCL 20MEQ/SWFI 100ML) 100 ML ASDIR PRN IV Sodium Bicarbonate (SODIUM BICARBONATE) 50 MEQ A SDIR PRN IV Sodium Chloride (SODIUM CHLORIDE 0.9%) 1,000 ML .Q20H IV Sodium Chloride (SODIUM CHLORIDE 0.9%) 250 ML Q2 4H IV Physical Exam General appearance: alert, awake, oriented Cardiovascular: CV assessment: regular rate and rhythm Murmur assessment: heart murmur Respiratory: clear to auscultation, no distress Abdomen: soft, non-tender Extremities: moves all Neuro/CHARGING MANIPULATOR: alert, oriented X 3 Skin: dry Wound/incision: Location: PPM site clean, dry; no sign of infection Findings/Data: Laboratory Tests: 10/19 0237 Chemistry Sodium (134 - 147 mEq/L) 129 L Potassium (3.4 - 5.0 mEq/L) 4.0 Chloride (100 - 108 mEq/L) 95 L Carbon Dioxide (21 - 33 mEq/l) 28 Anion Gap (0 - 20) 10 BUN (7 - 18 mg/dL) 8 Creatinine (0.6 - 1.3 mg/dL) 0.7 Glomerular Filtr Rate (70 - 80) 90.1 H Glucose (70 - 110 mg/dL) 125 H Calcium (8.0 - 10.5 mg/dL) 8.7 Magnesium (1.80 - 2.40 mg/dL) 1.95 Hematology WBC (4.5 - 11.0 x10 3/uL) 14.4 H RBC (3.54 - 5.02 x10 6/uL) 2.84 L Hgb (11.0 - 15.0 g/dL) 8.1 L Hct (33.0 - 45.0 %) 24.5 L MCV (81.0 - 99.0 fL) 86.3 MCH (27.0 - 33.0 pg) 28.5 MCHC (33.0 - 37.0 g/dL) 33.1 RDW (11.5 - 14.5 %) 14.8 H Plt Count (150 - 400 x10 3/uL) 269 MPV (7.0 - 9.0 fL) 9.4 H Neut % (Auto) (56.0 - 77.0 %) 79.9 H Lymph % (Auto) (14.0 - 32.0 %) 7.2 L Nelson % (Auto) (4.8 - 9.0 %) 8.6 Eos % (Auto) (0.3 - 3.7 %) 2.9 Baso % (Auto) (0.0 - 2.0 %) 0.6 Neut # (Auto) (2.0 - 7.6 x10 3/uL) 11.50 H Lymph # (Auto) (1.0 - 3.8 x10 3/uL) 1.04 Nelson # (Auto) (0.1 - 0.8 x10 3/uL) 1.23 H Eos # (Auto) (0.0 - 0.2 x10 3/uL) 0.42 H Baso # (Auto) (0.0 - 0.2 x10 3/uL) 0.08 Abs Immat Gran (auto) (0.00 - 0.03 x10 3/uL) 0. 11 H Add Manual Diff NO Immature Gran % (0.0 - 2.0 %) 0.8 Nucleated RBC % (0 - 0 %) 0.1 H Nucleated RBCs # (Man) (0.0 - 0.1 x10 3/uL) 0.0 2 Recent Impressions: RADIOLOGY - XR CHEST 1 V 10/18 1630 Report Impression - Status: SIGNED Entered: 10/18/20221930 IMPRESSION: Interval placement of new left cardiac device is present. Impression By: [email or web address] Juan José Martin M.D. Laboratory Tests 10/19 0237 Chemistry Magnesium (1.80 - 2.40 mg/dL) 1.95 Diagnosis, Assessment Plan Free Text A P: 1. SSS, symptomatic bradycardia; CHB -s/p PPM implantation per (VT) -monitored overnight -hemodynamically stable -PPM site clean, dry; no sign of infection -device interrogation, nml -CXR: no pneumothorax -L arm sling in place -instructions given for wound care, mobility, dr fuller, and moisture -Rx: minocycline 100mg bid x3 days -no lovenox or heparin post-op -resume AC 48hrs post-op -ok to d/c from EP standpoint; outpt f/u, ED, 2 weeks 2. Afib RVR -currently APaced 60 -AA therapy, amiodarone (IV gtt + 200mg bid) + m etoprolol 25mg bid -currently no AC 3. 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 Electronically Signed by Vinny Mcgee 10/19/22 at 1130 Electronically Signed by Kody Nash MD on at 1852 RPT #:[id number] END OF REPORT 2022-10-18 [facility] 16:15:00-00:00 [facility] Cardiology Progress Note REPORT#:[id number] REPORT STATUS: Signed DATE:10/18/22 TIME: 1615 PATIENT: SWEETIE AMAYA UNIT #: [id number] ROOM/BED: [place] [id number] : 47 AGE: 77 SEX: F ATTEND: Bella Hoff MD ADM AUTHOR: Amarilis Valentin RN CLINICAL APPEALS * ALL edits or amendments must be made on the el [employer]/computer document * Subjective Comments: Afib RVR this morning. Started on amiodarone gtt . patient c/o weakness. Objective General VS/I O: 24 hour I O ending at 0700: 10/18 0700 10/17 1900 Intake Total 175 Output Total 1275 Balance -1100 Intake, Oral 175 Output, Urine 1275 Patient 80.3 kg Weight Weight Standing scale Measurement Method Vital Signs: Date Time Temp Pulse Resp B/P B/P Pulse O2 O2 F low FiO2 Mean Ox Delivery Rate 10/18 1300 80 15 149/78 107 100 10/18 1200 117 18 164/80 105 93 10/18 1100 115 14 188/83 118 97 10/18 1000 129 15 164/88 114 99 10/18 0900 125 18 148/61 82 98 10/18 0857 96 High flow 2 nasal cannula 10/18 0838 80 19 156/74 106 100 10/18 0800 80 15 171/77 111 100 10/18 0740 Nasal 2 cannula 10/18 0700 80 19 163/79 113 100 10/18 0630 37.3 100 Nasal 2 cannula 10/18 0342 99 Nasal 2 28 cannula 10/18 0200 80 13 147/65 93 100 10/18 0045 37.2 80 16 100 Nasal 2 cannula 10/17 2202 80 21 174/77 111 100 10/17 2100 80 11 157/77 110 100 10/17 2030 Nasal 2 cannula 10/17 2030 37.4 80 20 100 Nasal 2 cannula 10/17 2000 80 36 142/70 100 99 10/17 1941 100 Nasal 2 28 cannula 10/17 1900 80 21 123/68 88 100 PATIENT WEIGHT: Weight (lb): 177 Weight (oz): 0.5 Weight (kg): 80.300 Medications: Active Meds + DC'd Last 24 Hrs Fentanyl Citrate (SUBLIMAZE) 0 .STK-MED ONE .ROU TE (DC) Midazolam HCl (VERSED) 0 .STK-MED ONE .ROUTE (DC ) Gentamicin Sulfate (GARAMYCIN) 0 .STK-MED ONE .R OUTE (DC) Lidocaine/Epinephrine (XYLOCAINE W/EPI 2% 20ML) 0 .STK-MED ONE LOCAL (DC ) Sodium Bicarbonate (SODIUM BICARBONATE) 0 .STK-M ED ONE IV (DC) Fentanyl Citrate (SUBLIMAZE) 0 .STK-MED ONE .ROU TE (DC) Midazolam HCl (VERSED) 0 .STK-MED ONE .ROUTE (DC ) Iopamidol (ISOVUE-370 100ML) 0 .STK-MED ONE IV ( DC) Vancomycin HCl (VANCOMYCIN HCL) 0 .STK-MED ONE . ROUTE (DC) Amiodarone HCl (AMIODARONE HCL) 450 MG ASDIR IV (CKD) Dextrose/Water (D5%W NON-DEHP) 250 ML Amiodarone HCl (NEXTERONE 150MG/D5W 100ML) 100 M L STAT STA IV (DC) Bisacodyl (DULCOLAX) 10 MG ONCE ONE RECTAL (DC) Magnesium Citrate (MAGNESIUM CITRATE) 150 ML ONC E ONE PO (DC) Oxycodone HCl (ROXICODONE) 5 MG ONCE ONE PO (DC) Amlodipine Besylate (NORVASC) 5 MG BEDTIME PO Furosemide (LASIX 20MG INJ) 20 MG BID 9A 5P IV Hydrocodone Bitart/Acetaminophen (NORCO 5/325) 2 TAB Q4H PRN PRN PO Vancomycin HCl (VANCOMYCIN HCL) 1,000 MG PREOP ONCALL IV (DC) Sodium Chloride (SODIUM CHLORIDE 0.9%) 250 ML Sodium Chloride (SODIUM CHLORIDE) 10 ML BID IV ( DC) Sodium Chloride (SODIUM CHLORIDE) 10 ML ASDIR P RN IV (DC) Ipratropium [employer] (ATROVENT) 500 MCG RTQ2H PRN PRN INH Cyanocobalamin (Vitamin B-12 500 mcg tab) 500 MC G DAILY PO Ferrous Sulfate (FERROUS SULFATE) 325 MG DAILY P O Bisacodyl (DULCOLAX) 10 MG ONCE PRN RECTAL Tramadol HCl (ULTRAM) 25 MG QID PRN PO Captopril (CAPOTEN) 6.25 MG Q8HR PO Atorvastatin Calcium (LIPITOR) 40 MG 2100 PO Insulin Human Lispro (HUMALOG) 0 AC HS SUBQ (DC) Dextrose/Water (DEXTROSE 10% IN WATER) 125 ML DIR PRN IV (DC) Dextrose/Water (DEXTROSE 10% IN WATER) 250 ML DIR PRN IV (DC) Glucagon (GLUCAGON) 1 MG ASDIR PRN IM (DC) Mesalamine (DELZICOL 400MG CAP DR.) 800 MG BID P O Polyethylene Glycol (MIRALAX) 17 GM DAILY PO Melatonin (Melatonin) 6 MG BEDTIME PO Docusate Sodium (COLACE) 100 MG BID PO Sennosides (Senna Lax 8.6 MG TABLET) 17.2 MG BED TIME PO Oxycodone HCl (ROXICODONE) 5 MG Q4H PRN PRN PO ( DC) Oxycodone HCl (ROXICODONE) 10 MG Q4H PRN PRN PO (DC) Aspirin (ASPIRIN) 81 MG DAILY PO Acetaminophen (TYLENOL) 650 MG Q4H PRN PRN PO Acetaminophen (TYLENOL) 650 MG Q4H PRN PRN RECTA L Calcium Chloride (CALCIUM CHLORIDE) 1 GM ASDIR P RN IV Epinephrine (ADRENALIN CHLORIDE) 4 MG ASDIR IV Dextrose/Water (DEXTROSE 5% WATER) 246 ML Glucagon (GLUCAGON) 1 MG ASDIR PRN IM Magnesium Sulfate (MAGNESIUM SULFATE 4GM/SWFI 10 0ML) 100 ML ASDIR PRN IV Magnesium Sulfate (MAGNESIUM SULFATE 2GM/SWFI 50 ML) 50 ML ASDIR PRN IV Magnesium Sulfate/Dextrose (MAGNESIUM SULFATE 1G M/D5W 100ML) 100 ML ASDIR PRN IV Nitroglycerin/Dextrose (NITROGLYCERIN 50,000MCG/ D5W 250ML) 250 ML ASDIR IV Norepinephrine Bitartrate (NOREPINEPHRINE 8 MG/N S 250 ML) 250 ML TITRATE IV Ondansetron HCl (ZOFRAN) 4 MG Q6H PRN PRN IV Potassium Chloride (KCL 20MEQ/SWFI 100ML) 100 ML ASDIR PRN IV Sodium Bicarbonate (SODIUM BICARBONATE) 50 MEQ A SDIR PRN IV Sodium Chloride (SODIUM CHLORIDE 0.9%) 1,000 ML .Q20H IV Sodium Chloride (SODIUM CHLORIDE 0.9%) 250 ML Q2 4H IV Physical Exam General appearance: frail, awake Neck: non-tender, no JVD Cardiovascular: CV assessment: irregularly irregular, tachycard ia Murmur assessment: heart murmur Respiratory: decreased breath sounds, on oxygen, no distress Abdomen: soft, non-tender, normal bowel sounds Genitourinary: no flank pain, no urinary cathete r Upper extremity: Right radial site: intact, no bleeding, no drai nage, no ecchymosis, no hematoma Lower extremity: LE assessment: edema (trace) Musculoskeletal: normal inspection Neuro/CHARGING MANIPULATOR: alert, oriented X 3, normal speech Skin: dry, intact Psychiatry: normal affect, normal judgment/insig ht, normal mood Results Findings/Data: Laboratory Tests 10/18 10/17 0528 2118 Chemistry Sodium (134 - 147 mEq/L) 130 L Potassium (3.4 - 5.0 mEq/L) 4.0 Chloride (100 - 108 mEq/L) 94 L Carbon Dioxide (21 - 33 mEq/l) 32 Anion Gap (0 - 20) 8 BUN (7 - 18 mg/dL) 12 Creatinine (0.6 - 1.3 mg/dL) 0.7 Glomerular Filtr Rate (70 - 80) 90.1 H Glucose (70 - 110 mg/dL) 118 H POC Glucose (70 - 110 MG/DL) 126 H Calcium (8.0 - 10.5 mg/dL) 9.4 Ionized Calcium Jam (1.09 - 1.30 MMOL/L) 1.17 Magnesium (1.80 - 2.40 mg/dL) 1.81 Total Bilirubin (0.0 - 1.0 mg/dL) 0.70 Direct Bilirubin (0.0 - 0.30 MG/DL) 0.20 Indirect Bilirubin (MG/DL) 0.50 AST (15 - 37 IUnit/L) 24 ALT (30 - 65 IUnit/L) 18 L Total Alk Phosphatase (20 - 125 IUnit/L) 77 Total Protein (6.4 - 8.2 g/dL) 5.5 L Albumin (3.4 - 5.0 g/dL) 2.70 L Laboratory Tests 10/18 0433 Coagulation INR (0.8 - 1.2) 1.1 PTT (Cheryl) (25.0 - 39.5 Seconds) 27.5 PT Patient/Control Mix (9.3 - 12.9 SECONDS) 12. 1 Laboratory Tests 10/18 532 Hematology WBC (4.5 - 11.0 x10 3/uL) 12.4 H RBC (3.54 - 5.02 x10 6/uL) 2.69 L Hgb (11.0 - 15.0 g/dL) 7.9 L Hct (33.0 - 45.0 %) 23.0 L MCV (81.0 - 99.0 fL) 85.5 MCH (27.0 - 33.0 pg) 29.4 MCHC (33.0 - 37.0 g/dL) 34.3 RDW (11.5 - 14.5 %) 15.0 H Plt Count (150 - 400 x10 3/uL) 241 MPV (7.0 - 9.0 fL) 10.2 H Neut % (Auto) (56.0 - 77.0 %) 75.6 Lymph % (Auto) (14.0 - 32.0 %) 10.3 L Nelson % (Auto) (4.8 - 9.0 %) 9.3 H Eos % (Auto) (0.3 - 3.7 %) 3.6 Baso % (Auto) (0.0 - 2.0 %) 0.6 Neut # (Auto) (2.0 - 7.6 x10 3/uL) 9.36 H Lymph # (Auto) (1.0 - 3.8 x10 3/uL) 1.28 Nelson # (Auto) (0.1 - 0.8 x10 3/uL) 1.15 H Eos # (Auto) (0.0 - 0.2 x10 3/uL) 0.44 H Baso # (Auto) (0.0 - 0.2 x10 3/uL) 0.08 Abs Immat Gran (auto) (0.00 - 0.03 x10 3/uL) 0. 08 H Add Manual Diff NO Immature Gran % (0.0 - 2.0 %) 0.6 Nucleated RBC % (0 - 0 %) 0.0 Nucleated RBCs # (Man) (0.0 - 0.1 x10 3/uL) 0.0 0 Laboratory Tests 10/18 0533 Chemistry Magnesium (1.80 - 2.40 mg/dL) 1.81 Radiology data: Recent Impressions: RADIOLOGY - XR CHEST 1 V 10/18 0642 Report Impression - Status: SIGNED Entered: 10/18/2022 0857 IMPRESSION: 1. Mildly improved lung opacities. 2. Removal of the right IJ catheter sheath. No p neumothorax. Impression By: AustinSWCat - Juan Reilly M.D. Results: labs reviewed, vital signs reviewed, [facility] personally rev'd Telemetry Interpretation: afib with RVR Diagnosis, Assessment Plan Plan discussed with: patient, family, collaborat rosa TINEO, nurse Free Text DxA P Notes Free Text DxA P Notes: 77 YO female with PMHx of hy pertension, hyperlipidemia, carotid artery disease s /p R CEA who has been having progressively worse madeleine shortness of breath. She was found to have severe mitral valve regurgitat ion. 1. Severe mitral valve regurgitation s/p MVR, PV I, and ALAA * post op care per CTS and ICC * continue ASA * repeat echo LVEF preserved * on IV lasix 20 mg BID, negative fluid balance 2. Hypertension * BP remains high * restart BB after PPM placement * continue amlodipine 5 mg daily 3. Hyperlipidemia * continue statin 4. Complete heart block/Sick sinus syndrome * ppm placement today 5. Post-op afib RVR (10/18) * on amiodarone gtt * restart BB post PPM MDM by Dr. Bowden. at 1621 RPT #:[id number] END OF REPORT 2022-10-18 [facility] 12:51:00-00:00 [facility] Hospitalist Progress Note REPORT#:[id number] REPORT STATUS: Signed DATE:10/18/22 TIME: 1251 PATIENT: SWEETIE AMAYA UNIT #: [id number] ROOM/BED: [place] [id number] : 47 AGE: 77 SEX: F ATTEND: Bella Hoff MD ADM AUTHOR: Nina Melgar MD * ALL edits or amendments must be made on the [employer]/computer document * Subjective Chief complaint: she had afib with RVR . pacemaker placement -- today 1. Mitral valve replacement 2. Pulmonary vein isolation. 3. Amputation of left atrial appendage. HPI: 77 YO female with PMHx of hy pertension, hyperlipidemia, carotid artery disease s /p R CEA was admitted to the hospital for mitral valve surgery . she has been progressively worsening of s ob . she was found severe mitral valve regurgitation . LHC was done . it show no blockage . she had mitral valve surgery today . she was seen in CVICU post procedure . she was intub ated on the vent support . [address] are in place . history is obtained from staff and review the chart . Review of Systems Constitutional: Reports: generalized weakness. Cardiovascular: Reports: palpitations. All systems rev neg: except as noted Objective General VS/I O: Vital Signs: Date Time Temp Pulse Resp B/P B/P Pulse O2 O2 Flow FiO2 Mean Ox Delivery Rate 10/18 1200 117 18 164/80 105 93 10/18 1100 115 14 188/83 118 97 10/18 1000 129 15 164/88 114 99 10/18 0900 125 18 148/61 82 98 10/18 0857 96 High flow 2 nasal cannula 10/18 0838 80 19 156/74 106 100 10/18 0800 80 15 171/77 111 100 10/18 0740 Nasal 2 cannula 10/18 0700 80 19 163/79 113 100 10/18 0630 37.3 100 Nasal 2 cannula 10/18 0342 99 Nasal 2 28 cannula 10/18 0200 80 13 147/65 93 100 10/18 0045 37.2 80 16 100 Nasal 2 cannula 10/17 2202 80 21 174/77 111 100 10/17 2100 80 11 157/77 110 100 10/17 2030 Nasal 2 cannula 10/17 2030 37.4 80 20 100 Nasal 2 cannula 10/17 2000 80 36 142/70 100 99 10/17 1941 100 Nasal 2 28 cannula 10/17 1900 80 21 123/68 88 100 24 hour I O ending at 0700: 10/18 0700 10/17 1900 Intake Total 175 Output Total 1275 Balance -1100 Intake, Oral 175 Output, Urine 1275 Patient 80.3 kg Weight Weight Standing scale Measurement Method PATIENT WEIGHT: Weight (lb): 177 Weight (oz): 0.5 Weight (kg): 80.300 Medications: Active Meds + DC'd Last 24 Hrs Amiodarone HCl (AMIODARONE HCL) 450 MG ASDIR IV (CKD) Dextrose/Water (D5%W NON-DEHP) 250 ML Amiodarone HCl (NEXTERONE 150MG/D5W 100ML) 100 M L STAT STA IV (DC) Bisacodyl (DULCOLAX) 10 MG ONCE ONE RECTAL (DC) Magnesium Citrate (MAGNESIUM CITRATE) 150 ML ONC E ONE PO (DC) Oxycodone HCl (ROXICODONE) 5 MG ONCE ONE PO (DC) Amlodipine Besylate (NORVASC) 5 MG BEDTIME PO Furosemide (LASIX 20MG INJ) 20 MG BID 9A 5P IV Hydrocodone Bitart/Acetaminophen (NORCO 5/325) 2 TAB Q4H PRN PRN PO Vancomycin HCl (VANCOMYCIN HCL) 1,000 MG PREOP O NCALL IV (DC) Sodium Chloride (SODIUM CHLORIDE 0.9%) 250 ML Sodium Chloride (SODIUM CHLORIDE) 10 ML BID IV ( DC) Sodium Chloride (SODIUM CHLORIDE) 10 ML ASDIR P RN IV (DC) Ipratropium [employer] (ATROVENT) 500 MCG RTQ2H PRN PRN INH Cyanocobalamin (Vitamin B-12 500 mcg tab) 500 MC G DAILY PO Ferrous Sulfate (FERROUS SULFATE) 325 MG DAILY P O Bisacodyl (DULCOLAX) 10 MG ONCE PRN RECTAL Tramadol HCl (ULTRAM) 25 MG QID PRN PO Captopril (CAPOTEN) 6.25 MG Q8HR PO Atorvastatin Calcium (LIPITOR) 40 MG 2100 PO Insulin Human Lispro (HUMALOG) 0 AC HS SUBQ (DC) Dextrose/Water (DEXTROSE 10% IN WATER) 125 ML DIR PRN IV (DC) Dextrose/Water (DEXTROSE 10% IN WATER) 250 ML DIR PRN IV (DC) Glucagon (GLUCAGON) 1 MG ASDIR PRN IM (DC) Mesalamine (DELZICOL 400MG CAP DR.) 800 MG BID P O Polyethylene Glycol (MIRALAX) 17 GM DAILY PO Melatonin (Melatonin) 6 MG BEDTIME PO Docusate Sodium (COLACE) 100 MG BID PO Sennosides (Senna Lax 8.6 MG TABLET) 17.2 MG BED TIME PO Oxycodone HCl (ROXICODONE) 5 MG Q4H PRN PRN PO ( DC) Oxycodone HCl (ROXICODONE) 10 MG Q4H PRN PRN PO (DC) Aspirin (ASPIRIN) 81 MG DAILY PO Acetaminophen (TYLENOL) 650 MG Q4H PRN PRN PO Acetaminophen (TYLENOL) 650 MG Q4H PRN PRN RECTA L Calcium Chloride (CALCIUM CHLORIDE) 1 GM ASDIR P RN IV Epinephrine (ADRENALIN CHLORIDE) 4 MG ASDIR IV Dextrose/Water (DEXTROSE 5% WATER) 246 ML Glucagon (GLUCAGON) 1 MG ASDIR PRN IM Magnesium Sulfate (MAGNESIUM SULFATE 4GM/SWFI 10 0ML) 100 ML ASDIR PRN IV Magnesium Sulfate (MAGNESIUM SULFATE 2GM/SWFI 50 ML) 50 ML ASDIR PRN IV Magnesium Sulfate/Dextrose (MAGNESIUM SULFATE 1G M/D5W 100ML) 100 ML ASDIR PRN IV Nitroglycerin/Dextrose (NITROGLYCERIN 50,000MCG/ D5W 250ML) 250 ML ASDIR IV Norepinephrine Bitartrate (NOREPINEPHRINE 8 MG/N S 250 ML) 250 ML TITRATE IV Ondansetron HCl (ZOFRAN) 4 MG Q6H PRN PRN IV Potassium Chloride (KCL 20MEQ/SWFI 100ML) 100 ML ASDIR PRN IV Sodium Bicarbonate (SODIUM BICARBONATE) 50 MEQ A SDIR PRN IV Sodium Chloride (SODIUM CHLORIDE 0.9%) 1,000 ML .Q20H IV Sodium Chloride (SODIUM CHLORIDE 0.9%) 250 ML Q2 4H IV Physical Exam General appearance: alert, awake, oriented Head/Eyes: atraumatic, normal conjunctiva/sclera , normal eyelids/periorb. ENT: intubated Neck: full range of motion, non-tender Cardiovascular: irregular rhythm, irregularly ir regular, tachycardic Respiratory: clear to auscultation Abdomen: non-tender, normal bowel sounds, soft, no distention Extremities: no edema Neuro/CHARGING MANIPULATOR: alert, oriented X 3, CNII-XII intact, normal speech, no motor deficits, no sensory deficits Results Findings/Data: Laboratory Tests 10/18 10/17 0533 2118 Chemistry Sodium (134 - 147 mEq/L) 130 L Potassium (3.4 - 5.0 mEq/L) 4.0 Chloride (100 - 108 mEq/L) 94 L Carbon Dioxide (21 - 33 mEq/l) 32 Anion Gap (0 - 20) 8 BUN (7 - 18 mg/dL) 12 Creatinine (0.6 - 1.3 mg/dL) 0.7 Glomerular Filtr Rate (70 - 80) 90.1 H Glucose (70 - 110 mg/dL) 118 H POC Glucose (70 - 110 MG/DL) 126 H Calcium (8.0 - 10.5 mg/dL) 9.4 Ionized Calcium Jam (1.09 - 1.30 MMOL/L) 1.17 Magnesium (1.80 - 2.40 mg/dL) 1.81 Total Bilirubin (0.0 - 1.0 mg/dL) 0.70 Direct Bilirubin (0.0 - 0.30 MG/DL) 0.20 Indirect Bilirubin (MG/DL) 0.50 AST (15 - 37 IUnit/L) 24 ALT (30 - 65 IUnit/L) 18 L Total Alk Phosphatase (20 - 125 IUnit/L) 77 Total Protein (6.4 - 8.2 g/dL) 5.5 L Albumin (3.4 - 5.0 g/dL) 2.70 L Laboratory Tests 10/18 0533 Coagulation INR (0.8 - 1.2) 1.1 PTT (Cheryl) (25.0 - 39.5 Seconds) 27.5 PT Patient/Control Mix (9.3 - 12.9 SECONDS) 12. 1 Laboratory Tests 10/18 0533 Hematology WBC (4.5 - 11.0 x10 3/uL) 12.4 H RBC (3.54 - 5.02 x10 6/uL) 2.69 L Hgb (11.0 - 15.0 g/dL) 7.9 L Hct (33.0 - 45.0 %) 23.0 L MCV (81.0 - 99.0 fL) 85.5 MCH (27.0 - 33.0 pg) 29.4 MCHC (33.0 - 37.0 g/dL) 34.3 RDW (11.5 - 14.5 %) 15.0 H Plt Count (150 - 400 x10 3/uL) 241 MPV (7.0 - 9.0 fL) 10.2 H Neut % (Auto) (56.0 - 77.0 %) 75.6 Lymph % (Auto) (14.0 - 32.0 %) 10.3 L Nelson % (Auto) (4.8 - 9.0 %) 9.3 H Eos % (Auto) (0.3 - 3.7 %) 3.6 Baso % (Auto) (0.0 - 2.0 %) 0.6 Neut # (Auto) (2.0 - 7.6 x10 3/uL) 9.36 H Lymph # (Auto) (1.0 - 3.8 x10 3/uL) 1.28 Nelson # (Auto) (0.1 - 0.8 x10 3/uL) 1.15 H Eos # (Auto) (0.0 - 0.2 x10 3/uL) 0.44 H Baso # (Auto) (0.0 - 0.2 x10 3/uL) 0.08 Abs Immat Gran (auto) (0.00 - 0.03 x10 3/uL) 0. 08 H Add Manual Diff NO Immature Gran % (0.0 - 2.0 %) 0.6 Nucleated RBC % (0 - 0 %) 0.0 Nucleated RBCs # (Man) (0.0 - 0.1 x10 3/uL) 0.0 0 Radiology data: Recent Impressions: RADIOLOGY - XR CHEST 1 V 10/18 0642 Report Impression - Status: SIGNED Entered: 10/18/2022 3657 IMPRESSION: 1. Mildly improved lung opacities. 2. Removal of the right IJ catheter sheath. No p neumothorax. Impression By: [email or web address] - Juan Reilly M.D. Diagnosis, Assessment Plan Consultants: cardiology, cardiovascular surgery, critical/clubhouse manager Free Text DxA P Notes Free text DxA P notes: acute respiratory failure --post procedure severe mitral valve regurgitation HTN HLD CHF -- diastolic SSS, symptomatic bradycardia; CHB -s/p TPM hyponatremia intubated on the vent support --post procedure post mitral valve surgery HTN -- on metoprolol monitor BP HLD --lipitor cardiology consult CV surgeon consult critial care consult monitor in the CVICU afib RVR--post procedure on amiodarone drip NO AC --post surgery SSS-- EP consult pacemaker placement --10/18 1. Mitral valve replacement (27 Mitris valve). 2. Pulmonary vein isolation. 3. Amputation of left atrial appendage. 10/13- she was extubated yesterday she sit on the chair no sob [address] -- she is hemodynamic stable --review lab and image -- case is discussed with nurse 10/14- she sit on the chair -- drainage tube are out -- she feel better -- she is hemodynamic stable -- continue PT/OT continue monitor in CVICU -- review all lab and image 10/15 Continue post-op care, bowel regimen. OOB/a mbulate with PT/OT. 10/16 Had echo today. Continue PT/OT post-op. 10/17- she feel better - she is hemodynamic stable -- continue PT/OT -- rehab evaluation -- review all all lab and image -- case is discussed with nurse 10/18- she feel palpitation -- on amiodarone drip -- EP consult -- pacemaker today -- continue monitor in CVicu -- afib -- control HR -- PT/OT -- review all lab and image Electronically Signed by Nina Melgar MD on 3 at 1701 RPT #:[id number] END OF REPORT 2022-10-18 [facility] 12:46:00-00:00 [facility] ([facility]) Rehab Progress Note REPORT#:[id number] REPORT STATUS: Signed DATE:10/18/22 TIME: 1246 PATIENT: SWEETIE AMAYA UNIT #: [id number] ROOM/BED: [place] [id number] : 47 AGE: 77 SEX: F ATTEND: Bella Hoff MD ADM AUTHOR: Cinthya Burger PA-C * ALL edits or amendments must be made on the One[employer]/computer document * Subjective Chief complaint: Pt seen and examined. at the bedside. Sh e states waiting for PPM placement. States today feel ing palpitations and racing heart/beating hard which states is wearing her out. Objective General VS: Vital Signs: Date Time Temp Pulse Resp B/P B/P Pulse O2 O2 F low FiO2 Mean Ox Delivery Rate 10/18 1200 117 18 164/80 105 93 10/18 1100 115 14 188/83 118 97 10/18 1000 129 15 164/88 114 99 10/18 0900 125 18 148/61 82 98 10/18 0857 96 High flow 2 nasal cannula 10/18 0838 80 19 156/74 106 100 10/18 0800 80 15 171/77 111 100 10/18 0740 Nasal 2 cannula 10/18 0700 80 19 163/79 113 100 10/18 0630 99.1 100 Nasal 2 cannula 10/18 0342 99 Nasal 2 28 cannula 10/18 0200 80 13 147/65 93 100 10/18 0045 99.0 80 16 100 Nasal 2 cannula 10/17 2202 80 21 174/77 111 100 10/17 2100 80 11 157/77 110 100 10/17 2030 Nasal 2 cannula 10/17 2029 99.3 80 20 100 Nasal 2 cannula 10/17 2000 80 36 142/70 100 99 10/17 1941 100 Nasal 2 28 cannula 10/17 1900 80 21 123/68 88 100 PATIENT WEIGHT: Weight (lb): 177 Weight (oz): 0.5 Weight (kg): 80.300 Medications: Active Meds + DC'd Last 24 Hrs Amiodarone HCl (AMIODARONE HCL) 450 MG ASDIR IV (CKD) Dextrose/Water (D5%W NON-DEHP) 250 ML Amiodarone HCl (NEXTERONE 150MG/D5W 100ML) 100 M L STAT STA IV (DC) Bisacodyl (DULCOLAX) 10 MG ONCE ONE RECTAL (DC) Magnesium Citrate (MAGNESIUM CITRATE) 150 ML ONC E ONE PO (DC) Oxycodone HCl (ROXICODONE) 5 MG ONCE ONE PO (DC) Amlodipine Besylate (NORVASC) 5 MG BEDTIME PO Furosemide (LASIX 20MG INJ) 20 MG BID 9A 5P IV Hydrocodone Bitart/Acetaminophen (NORCO 5/325) 2 TAB Q4H PRN PRN PO Vancomycin HCl (VANCOMYCIN HCL) 1,000 MG PREOP O NCALL IV (DC) Sodium Chloride (SODIUM CHLORIDE 0.9%) 250 ML Sodium Chloride (SODIUM CHLORIDE) 10 ML BID IV ( DC) Sodium Chloride (SODIUM CHLORIDE) [address] N IV (DC) Ipratropium [employer] (ATROVENT) 500 MCG RTQ2H PRN PRN INH Cyanocobalamin (Vitamin B-12 500 mcg tab) 500 MC G DAILY PO Ferrous Sulfate (FERROUS SULFATE) 325 MG DAILY P O Bisacodyl (DULCOLAX) 10 MG ONCE PRN RECTAL Tramadol HCl (ULTRAM) 25 MG QID PRN PO Captopril (CAPOTEN) 6.25 MG Q8HR PO Atorvastatin Calcium (LIPITOR) 40 MG 2100 PO Insulin Human Lispro (HUMALOG) 0 AC HS SUBQ (DC) Dextrose/Water (DEXTROSE 10% IN WATER) 125 ML DIR PRN IV (DC) Dextrose/Water (DEXTROSE 10% IN WATER) 250 ML DIR PRN IV (DC) Glucagon (GLUCAGON) 1 MG ASDIR PRN IM (DC) Mesalamine (DELZICOL 400MG CAP DR.) 800 MG BID P O Polyethylene Glycol (MIRALAX) 17 GM DAILY PO Melatonin (Melatonin) 6 MG BEDTIME PO Docusate Sodium (COLACE) 100 MG BID PO Sennosides (Senna Lax 8.6 MG TABLET) 17.2 MG BED TIME PO Oxycodone HCl (ROXICODONE) 5 MG Q4H PRN PRN PO ( DC) Oxycodone HCl (ROXICODONE) 10 MG Q4H PRN PRN PO (DC) Aspirin (ASPIRIN) 81 MG DAILY PO Acetaminophen (TYLENOL) 650 MG Q4H PRN PRN PO Acetaminophen (TYLENOL) 650 MG Q4H PRN PRN RECTA L Calcium Chloride (CALCIUM CHLORIDE) 1 GM ASDIR P RN IV Epinephrine (ADRENALIN CHLORIDE) 4 MG ASDIR IV Dextrose/Water (DEXTROSE 5% WATER) 246 ML Glucagon (GLUCAGON) 1 MG ASDIR PRN IM Magnesium Sulfate (MAGNESIUM SULFATE 4GM/SWFI 10 0ML) 100 ML ASDIR PRN IV Magnesium Sulfate (MAGNESIUM SULFATE 2GM/SWFI 50 ML) 50 ML ASDIR PRN IV Magnesium Sulfate/Dextrose (MAGNESIUM SULFATE 1G M/D5W 100ML) 100 ML ASDIR PRN IV Nitroglycerin/Dextrose (NITROGLYCERIN 50,000MCG/ D5W 250ML) 250 ML ASDIR IV Norepinephrine Bitartrate (NOREPINEPHRINE 8 MG/N S 250 ML) 250 ML TITRATE IV Ondansetron HCl (ZOFRAN) 4 MG Q6H PRN PRN IV Potassium Chloride (KCL 20MEQ/SWFI 100ML) 100 ML ASDIR PRN IV Sodium Bicarbonate (SODIUM BICARBONATE) 50 MEQ A SDIR PRN IV Sodium Chloride (SODIUM CHLORIDE 0.9%) 1,000 ML .Q20H IV Sodium Chloride (SODIUM CHLORIDE 0.9%) 250 ML Q2 4H IV Functional Progress Functional progress: Reason Patient Unable to Perform: Treatment on H old COMMENTS: pending PPM sx 10/18/2022 . Physical Exam General appearance: alert, awake HEENT: anicteric, mucosal membranes moist, scler a clear Neck: supple, no JVD Cardiovascular: tachycardia, S1/S2, external pac emaker Respiratory: aerating well, clear bilaterally Abdomen: bowel sounds present, non-distended, so ft, non-tender Skin: dry, intact, no rash Musculoskeletal - general: Musculoskeletal - general: swelling, joints nor mal, range of motion normal, strength testing normal, no swelling Neuro/CHARGING MANIPULATOR: alert, oriented X 3, normal speech, n o motor deficits, no sensory deficits Results Findings/Data: Laboratory Tests: 10/18 10/17 0533 6614 Chemistry Sodium (134 - 147 mEq/L) 130 L Potassium (3.4 - 5.0 mEq/L) 4.0 Chloride (100 - 108 mEq/L) 94 L Carbon Dioxide (21 - 33 mEq/l) 32 Anion Gap (0 - 20) 8 BUN (7 - 18 mg/dL) 12 Creatinine (0.6 - 1.3 mg/dL) 0.7 Glomerular Filtr Rate (70 - 80) 90.1 H Glucose (70 - 110 mg/dL) 118 H POC Glucose (70 - 110 MG/DL) 126 H Calcium (8.0 - 10.5 mg/dL) 9.4 Ionized Calcium Jam (1.09 - 1.30 MMOL/L) 1.17 Magnesium (1.80 - 2.40 mg/dL) 1.81 Total Bilirubin (0.0 - 1.0 mg/dL) 0.70 Direct Bilirubin (0.0 - 0.30 MG/DL) 0.20 Indirect Bilirubin (MG/DL) 0.50 AST (15 - 37 IUnit/L) 24 ALT (30 - 65 IUnit/L) 18 L Total Alk Phosphatase (20 - 125 IUnit/L) 77 Total Protein (6.4 - 8.2 g/dL) 5.5 L Albumin (3.4 - 5.0 g/dL) 2.70 L Coagulation INR (0.8 - 1.2) 1.1 PTT (Cheryl) (25.0 - 39.5 Seconds) 27.5 PT Patient/Control Mix (9.3 - 12.9 SECONDS) 12. 1 Hematology WBC (4.5 - 11.0 x10 3/uL) 12.4 H RBC (3.54 - 5.02 x10 6/uL) 2.69 L Hgb (11.0 - 15.0 g/dL) 7.9 L Hct (33.0 - 45.0 %) 23.0 L MCV (81.0 - 99.0 fL) 85.5 MCH (27.0 - 33.0 pg) 29.4 MCHC (33.0 - 37.0 g/dL) 34.3 RDW (11.5 - 14.5 %) 15.0 H Plt Count (150 - 400 x10 3/uL) 241 MPV (7.0 - 9.0 fL) 10.2 H Neut % (Auto) (56.0 - 77.0 %) 75.6 Lymph % (Auto) (14.0 - 32.0 %) 10.3 L Nelson % (Auto) (4.8 - 9.0 %) 9.3 H Eos % (Auto) (0.3 - 3.7 %) 3.6 Baso % (Auto) (0.0 - 2.0 %) 0.6 Neut # (Auto) (2.0 - 7.6 x10 3/uL) 9.36 H Lymph # (Auto) (1.0 - 3.8 x10 3/uL) 1.28 Nelson # (Auto) (0.1 - 0.8 x10 3/uL) 1.15 H Eos # (Auto) (0.0 - 0.2 x10 3/uL) 0.44 H Baso # (Auto) (0.0 - 0.2 x10 3/uL) 0.08 Abs Immat Gran (auto) (0.00 - 0.03 x10 3/uL) 0 .08 H Add Manual Diff NO Immature Gran % (0.0 - 2.0 %) 0.6 Nucleated RBC % (0 - 0 %) 0.0 Nucleated RBCs # (Man) (0.0 - 0.1 x10 3/uL) 0.0 0 Radiology data: Recent Impressions: RADIOLOGY - XR CHEST 1 V 10/18 0642 Report Impression - Status: SIGNED Entered: 10/18/2022 0857 IMPRESSION: 1. Mildly improved lung opacities. 2. Removal of the right IJ catheter sheath. No p neumothorax. Impression By: [email or web address] - Juan Reilly M.D. Diagnosis, Assessment Plan Problem List/A P: 1. S/P CABG (coronary artery bypass graft) 2. S/P placement of cardiac pacemaker Free Text A P: Severe mitral regurgitation status post MVR on Acute pulmonary insufficiency following major ca rdiothoracic surgery Cardiogenic shock Acute blood loss anemia Metabolic acidosis Hypokalemia Sick Sinus Syndrome Hx Asthma GERD HTN P A FIB Plan: PT/OT consulted. She will need to be NWB to the E along with her sternal precautions. Continue to work on weaning O2 as t olerated. Therapy to work on OOB daily to the chair, zepeda sfers, progressive gait, adls and etc. Will see how she does post PPM with precautions and make furt her recommendations. 10/18 Pt with tachycardia today. She is now sched uled for PPM today. Fatigues. IRF once medically stable. Will plan to re-order therapy post op. . Consultants: cardiology, cardiovascular surgery, critical/clubhouse manager Rehab attestation: Face to face exam completed. Treatment plan disc ussed with patient. Electronically Signed by Cinthya Burger PA-C on at 1248 RPT #:[id number] END OF REPORT 2022-10-18 [facility] 10:47:00-00:00 [facility] ([facility]) Progress Note REPORT#:[id number] REPORT STATUS: Signed DATE:10/18/22 TIME: 1047 PATIENT: SWEETIE AMAYA UNIT #: [id number] ROOM/BED: [place] [id number] : 47 AGE: 77 SEX: F ATTEND: Bella Hoff MD ADM AUTHOR: Vinny Mcgee * ALL edits or amendments must be made on the One[employer]/computer document * Objective General VS/I O Last Documented: Result Date Time Pulse Ox 96 10/18 0857 O2 Delivery High flow nasal cannula 10/18 0857 O2 Flow Rate 2 10/18 0857 B/P 156/74 10/18 0838 B/P Mean 106 10/18 0838 Pulse 80 10/18 0838 Resp 19 10/18 0838 Temp 37.3 10/18 0630 FiO2 28 10/18 0342 24 hour I O ending at 0700: 10/18 0700 10/17 1900 Intake Total 175 Output Total 1275 Balance -1100 Intake, Oral 175 Output, Urine 1275 Patient 80.3 kg Weight Weight Standing scale Measurement Method PATIENT WEIGHT: Weight (lb): 177 Weight (oz): 0.5 Weight (kg): 80.300 Medications: Active Meds + DC'd Last 24 Hrs Amiodarone HCl (AMIODARONE HCL) 450 MG ASDIR IV (CKD) Dextrose/Water (D5%W NON-DEHP) 250 ML Amiodarone HCl (NEXTERONE 150MG/D5W 100ML) 100 M L STAT STA IV (DC) Bisacodyl (DULCOLAX) 10 MG ONCE ONE RECTAL (DC) Magnesium Citrate (MAGNESIUM CITRATE) 150 ML ONC E ONE PO (DC) Oxycodone HCl (ROXICODONE) 5 MG ONCE ONE PO (DC) Amlodipine Besylate (NORVASC) 5 MG BEDTIME PO Furosemide (LASIX 20MG INJ) 20 MG BID 9A 5P IV Hydrocodone Bitart/Acetaminophen (NORCO 5/325) 2 TAB Q4H PRN PRN PO Vancomycin HCl (VANCOMYCIN HCL) 1,000 MG PREOP O NCALL IV (DC) Sodium Chloride (SODIUM CHLORIDE 0.9%) 250 ML Sodium Chloride (SODIUM CHLORIDE) 10 ML BID IV ( DC) Sodium Chloride (SODIUM CHLORIDE) [address] N IV (DC) Ipratropium [employer] (ATROVENT) 500 MCG RTQ2H PRN PRN INH Cyanocobalamin (Vitamin B-12 500 mcg tab) 500 MC G DAILY PO Ferrous Sulfate (FERROUS SULFATE) 325 MG DAILY P O Bisacodyl (DULCOLAX) 10 MG ONCE PRN RECTAL Tramadol HCl (ULTRAM) 25 MG QID PRN PO Captopril (CAPOTEN) 6.25 MG Q8HR PO Atorvastatin Calcium (LIPITOR) 40 MG 2100 PO Insulin Human Lispro (HUMALOG) 0 AC HS SUBQ (DC) Dextrose/Water (DEXTROSE 10% IN WATER) 125 ML DIR PRN IV (DC) Dextrose/Water (DEXTROSE 10% IN WATER) 250 ML DIR PRN IV (DC) Glucagon (GLUCAGON) 1 MG ASDIR PRN IM (DC) Mesalamine (DELZICOL 400MG CAP DR.) 800 MG BID P O Polyethylene Glycol (MIRALAX) 17 GM DAILY PO Melatonin (Melatonin) 6 MG BEDTIME PO Docusate Sodium (COLACE) 100 MG BID PO Sennosides (Senna Lax 8.6 MG TABLET) 17.2 MG BED TIME PO Oxycodone HCl (ROXICODONE) 5 MG Q4H PRN PRN PO ( DC) Oxycodone HCl (ROXICODONE) 10 MG Q4H PRN PRN PO (DC) Aspirin (ASPIRIN) 81 MG DAILY PO Acetaminophen (TYLENOL) 650 MG Q4H PRN PRN PO Acetaminophen (TYLENOL) 650 MG Q4H PRN PRN RECTA L Calcium Chloride (CALCIUM CHLORIDE) 1 GM ASDIR P RN IV Epinephrine (ADRENALIN CHLORIDE) 4 MG ASDIR IV Dextrose/Water (DEXTROSE 5% WATER) 246 ML Glucagon (GLUCAGON) 1 MG ASDIR PRN IM Magnesium Sulfate (MAGNESIUM SULFATE 4GM/SWFI 10 0ML) 100 ML ASDIR PRN IV Magnesium Sulfate (MAGNESIUM SULFATE 2GM/SWFI 50 ML) 50 ML ASDIR PRN IV Magnesium Sulfate/Dextrose (MAGNESIUM SULFATE 1G M/D5W 100ML) 100 ML ASDIR PRN IV Nitroglycerin/Dextrose (NITROGLYCERIN 50,000MCG/ D5W 250ML) 250 ML ASDIR IV Norepinephrine Bitartrate (NOREPINEPHRINE 8 MG/N S 250 ML) 250 ML TITRATE IV Ondansetron HCl (ZOFRAN) 4 MG Q6H PRN PRN IV Potassium Chloride (KCL 20MEQ/SWFI 100ML) 100 ML ASDIR PRN IV Sodium Bicarbonate (SODIUM BICARBONATE) 50 MEQ A SDIR PRN IV Sodium Chloride (SODIUM CHLORIDE 0.9%) 1,000 ML .Q20H IV Sodium Chloride (SODIUM CHLORIDE 0.9%) 250 ML Q2 4H IV Physical Exam General appearance: alert, awake, oriented Cardiovascular: CV assessment: irregular rhythm, tachycardia Murmur assessment: heart murmur Respiratory: clear to auscultation, no distress Abdomen: soft, non-tender Extremities: moves all Neuro/CHARGING MANIPULATOR: alert, oriented X 3 Skin: dry Findings/Data: Laboratory Tests: 10/18 10/17 0533 2118 Chemistry Sodium (134 - 147 mEq/L) 130 L Potassium (3.4 - 5.0 mEq/L) 4.0 Chloride (100 - 108 mEq/L) 94 L Carbon Dioxide (21 - 33 mEq/l) 32 Anion Gap (0 - 20) 8 BUN (7 - 18 mg/dL) 12 Creatinine (0.6 - 1.3 mg/dL) 0.7 Glomerular Filtr Rate (70 - 80) 90.1 H Glucose (70 - 110 mg/dL) 118 H POC Glucose (70 - 110 MG/DL) 126 H Calcium (8.0 - 10.5 mg/dL) 9.4 Ionized Calcium Jam (1.09 - 1.30 MMOL/L) 1.17 Magnesium (1.80 - 2.40 mg/dL) 1.81 Total Bilirubin (0.0 - 1.0 mg/dL) 0.70 Direct Bilirubin (0.0 - 0.30 MG/DL) 0.20 Indirect Bilirubin (MG/DL) 0.50 AST (15 - 37 IUnit/L) 24 ALT (30 - 65 IUnit/L) 18 L Total Alk Phosphatase (20 - 125 IUnit/L) 77 Total Protein (6.4 - 8.2 g/dL) 5.5 L Albumin (3.4 - 5.0 g/dL) 2.70 L Coagulation INR (0.8 - 1.2) 1.1 PTT ([place]) (25.0 - 39.5 Seconds) 27.5 PT Patient/Control Mix (9.3 - 12.9 SECONDS) 12 .1 Hematology WBC (4.5 - 11.0 x10 3/uL) 12.4 H RBC (3.54 - 5.02 x10 6/uL) 2.69 L Hgb (11.0 - 15.0 g/dL) 7.9 L Hct (33.0 - 45.0 %) 23.0 L MCV (81.0 - 99.0 fL) 85.5 MCH (27.0 - 33.0 pg) 29.4 MCHC (33.0 - 37.0 g/dL) 34.3 RDW (11.5 - 14.5 %) 15.0 H Plt Count (150 - 400 x10 3/uL) 241 MPV (7.0 - 9.0 fL) 10.2 H Neut % (Auto) (56.0 - 77.0 %) 75.6 Lymph % (Auto) (14.0 - 32.0 %) 10.3 L Nelson % (Auto) (4.8 - 9.0 %) 9.3 H Eos % (Auto) (0.3 - 3.7 %) 3.6 Baso % (Auto) (0.0 - 2.0 %) 0.6 Neut # (Auto) (2.0 - 7.6 x10 3/uL) 9.36 H Lymph # (Auto) (1.0 - 3.8 x10 3/uL) 1.28 Nelson # (Auto) (0.1 - 0.8 x10 3/uL) 1.15 H Eos # (Auto) (0.0 - 0.2 x10 3/uL) 0.44 H Baso # (Auto) (0.0 - 0.2 x10 3/uL) 0.08 Abs Immat Gran (auto) (0.00 - 0.03 x10 3/uL) 0 .08 H Add Manual Diff NO Immature Gran % (0.0 - 2.0 %) 0.6 Nucleated RBC % (0 - 0 %) 0.0 Nucleated RBCs # (Man) (0.0 - 0.1 x10 3/uL) 0.0 0 Recent Impressions: RADIOLOGY - XR CHEST 1 V 10/18 0642 Report Impression - Status: SIGNED Entered: 10/18/2022 0877 IMPRESSION: 1. Mildly improved lung opacities. 2. Removal of the right IJ catheter sheath. No p neumothorax. Impression By: [facility] - Juan Reilly M.D. Laboratory Tests 10/18 0533 Chemistry Magnesium (1.80 - 2.40 mg/dL) 1.81 Diagnosis, Assessment Plan Free Text A P: 1. SSS, symptomatic bradycardia; CHB -s/p TPM -no AVN-blocking meds -no reversible causes -plan for PPM implantation today, 10/18-1300, per (VT) 2. Afib RVR -currently 130s -rate control, amiodarone IV bolus + IV gtt -currently no AC 3. 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 Electronically Signed by Vinny Mcgee 10/18/22 at 1050 Electronically Signed by Kody Nash MD on at 4447 RPT #:[id number] END OF REPORT 2022-10-18 [facility] 10:33:00-00:00 [facility] ([facility]) Critical Care Progress Note REPORT#:[id number] REPORT STATUS: Signed DATE:10/18/22 TIME: 1033 PATIENT: SWEETIE AMAYA UNIT #: [id number] ROOM/BED: [address] : 47 AGE: 77 SEX: F ATTEND: Bella Hoff MD ADM AUTHOR: Sumanth Gray MD * ALL edits or amendments must be made on the [employer]/computer document * Subjective Chief complaint: Severe mitral regurgitation HPI: 77-year-old female with past medical history sig nificant for hypertension, dyslipidemia, paroxysmal atrial fibrilla tion, carotid stenosis status post CEA in 2020 was evaluated for shortness of b reath and dyspnea on exertion over the past several months. She denies any symptoms at rest. No angina symptoms were reported. Patient reported lower extremity weakn ess along with shortness of breath. She underwent echocardiogram in the outp atient setting that showed EF of 60 to 65% with a dilated left atrium, moderat e to severe mitral regurgitation. 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 There was possibility of chordae tendonee rupture evidence of trace tricuspid regurgitation with ascending aorta measuring 3.7 cm. Patient underwent left heart catheterization that showed no significant coronary artery disease. Patient underwent CT surgery evaluation for dre re mitral valve regurgitation for possible mitral valve replacement. P mirtha was brought to CVICU room #[id number] oral intubated on the ventilator. She will be fa st-track for extubation. Comments: Out of bed in the chair Diuresing, urine output 1.3 L overnight Tolerating PO, passing gas, no BM Went into A-fib with RVR this am Objective General VS/I O Last Documented: Result Date Time Pulse Ox 96 10/18 0857 O2 Delivery High flow nasal cannula 10/18 0857 O2 Flow Rate 2 10/18 0857 B/P 156/74 10/18 0838 B/P Mean 106 10/18 0838 Pulse 80 10/18 0838 Resp 19 10/18 0838 Temp 99.1 10/18 0630 FiO2 28 10/18 0342 24 hour I O ending at 0700: 10/18 0700 10/17 1900 Intake Total 175 Output Total 1275 Balance -1100 Intake, Oral 175 Output, Urine 1275 Patient 80.3 kg Weight Weight Standing scale Measurement Method PATIENT WEIGHT: Weight (lb): 177 Weight (oz): 0.5 Weight (kg): 80.300 Medications: Active Meds + DC'd Last 24 Hrs Amiodarone HCl (AMIODARONE HCL) 450 MG ASDIR IV (CKD) Dextrose/Water (D5%W NON-DEHP) 250 ML Amiodarone HCl (NEXTERONE 150MG/D5W 100ML) 100 M L STAT STA IV (DC) Bisacodyl (DULCOLAX) 10 MG ONCE ONE RECTAL (DC) Magnesium Citrate (MAGNESIUM CITRATE) 150 ML ONC E ONE PO (DC) Oxycodone HCl (ROXICODONE) 5 MG ONCE ONE PO (DC) Amlodipine Besylate (NORVASC) 5 MG BEDTIME PO Furosemide (LASIX 20MG INJ) 20 MG BID 9A 5P IV Hydrocodone Bitart/Acetaminophen (NORCO 5/325) 2 TAB Q4H PRN PRN PO Vancomycin HCl (VANCOMYCIN HCL) 1,000 MG PREOP O NCALL IV (DC) Sodium Chloride (SODIUM CHLORIDE 0.9%) 250 ML Sodium Chloride (SODIUM CHLORIDE) 10 ML BID IV ( DC) Sodium Chloride (SODIUM CHLORIDE) [address] N IV (DC) Ipratropium [employer] (ATROVENT) 500 MCG RTQ2H PRN PRN INH Cyanocobalamin (Vitamin B-12 500 mcg tab) 500 MC G DAILY PO Ferrous Sulfate (FERROUS SULFATE) 325 MG DAILY P O Bisacodyl (DULCOLAX) 10 MG ONCE PRN RECTAL Tramadol HCl (ULTRAM) 25 MG QID PRN PO Captopril (CAPOTEN) 6.25 MG Q8HR PO Atorvastatin Calcium (LIPITOR) 40 MG 2100 PO Insulin Human Lispro (HUMALOG) 0 AC HS SUBQ (DC) Dextrose/Water (DEXTROSE 10% IN WATER) 125 ML DIR PRN IV (DC) Dextrose/Water (DEXTROSE 10% IN WATER) 250 ML DIR PRN IV (DC) Glucagon (GLUCAGON) 1 MG ASDIR PRN IM (DC) Mesalamine (DELZICOL 400MG CAP DR.) 800 MG BID P O Polyethylene Glycol (MIRALAX) 17 GM DAILY PO Melatonin (Melatonin) 6 MG BEDTIME PO Docusate Sodium (COLACE) 100 MG BID PO Sennosides (Senna Lax 8.6 MG TABLET) 17.2 MG BED TIME PO Oxycodone HCl (ROXICODONE) 5 MG Q4H PRN PRN PO ( DC) Oxycodone HCl (ROXICODONE) 10 MG Q4H PRN PRN PO (DC) Aspirin (ASPIRIN) 81 MG DAILY PO Acetaminophen (TYLENOL) 650 MG Q4H PRN PRN PO Acetaminophen (TYLENOL) 650 MG Q4H PRN PRN RECTA L Calcium Chloride (CALCIUM CHLORIDE) 1 GM ASDIR P RN IV Epinephrine (ADRENALIN CHLORIDE) 4 MG ASDIR IV Dextrose/Water (DEXTROSE 5% WATER) 246 ML Glucagon (GLUCAGON) 1 MG ASDIR PRN IM Magnesium Sulfate (MAGNESIUM SULFATE 4GM/SWFI 10 0ML) 100 ML ASDIR PRN IV Magnesium Sulfate (MAGNESIUM SULFATE 2GM/SWFI 50 ML) 50 ML ASDIR PRN IV Magnesium Sulfate/Dextrose (MAGNESIUM SULFATE 1G M/D5W 100ML) 100 ML ASDIR PRN IV Nitroglycerin/Dextrose (NITROGLYCERIN 50,000MCG/ D5W 250ML) 250 ML ASDIR IV Norepinephrine Bitartrate (NOREPINEPHRINE 8 MG/N S 250 ML) 250 ML TITRATE IV Ondansetron HCl (ZOFRAN) 4 MG Q6H PRN PRN IV Potassium Chloride (KCL 20MEQ/SWFI 100ML) 100 ML ASDIR PRN IV Sodium Bicarbonate (SODIUM BICARBONATE) 50 MEQ A SDIR PRN IV Sodium Chloride (SODIUM CHLORIDE 0.9%) 1,000 ML .Q20H IV Sodium Chloride (SODIUM CHLORIDE 0.9%) 250 ML Q2 4H IV Results Findings/data: Laboratory Tests 10/18 10/17 0533 9570 Chemistry Sodium (134 - 147 mEq/L) 130 L Potassium (3.4 - 5.0 mEq/L) 4.0 Chloride (100 - 108 mEq/L) 94 L Carbon Dioxide (21 - 33 mEq/l) 32 Anion Gap (0 - 20) 8 BUN (7 - 18 mg/dL) 12 Creatinine (0.6 - 1.3 mg/dL) 0.7 Glomerular Filtr Rate (70 - 80) 90.1 H Glucose (70 - 110 mg/dL) 118 H POC Glucose (70 - 110 MG/DL) 126 H Calcium (8.0 - 10.5 mg/dL) 9.4 Ionized Calcium Jam (1.09 - 1.30 MMOL/L) 1.17 Magnesium (1.80 - 2.40 mg/dL) 1.81 Total Bilirubin (0.0 - 1.0 mg/dL) 0.70 Direct Bilirubin (0.0 - 0.30 MG/DL) 0.20 Indirect Bilirubin (MG/DL) 0.50 AST (15 - 37 IUnit/L) 24 ALT (30 - 65 IUnit/L) 18 L Total Alk Phosphatase (20 - 125 IUnit/L) 77 Total Protein (6.4 - 8.2 g/dL) 5.5 L Albumin (3.4 - 5.0 g/dL) 2.70 L Laboratory Tests 10/18 05 Coagulation INR (0.8 - 1.2) 1.1 PTT ([place]) (25.0 - 39.5 Seconds) 27.5 PT Patient/Control Mix (9.3 - 12.9 SECONDS) 12. 1 Laboratory Tests 10/18 532 Hematology WBC (4.5 - 11.0 x10 3/uL) 12.4 H RBC (3.54 - 5.02 x10 6/uL) 2.69 L Hgb (11.0 - 15.0 g/dL) 7.9 L Hct (33.0 - 45.0 %) 23.0 L MCV (81.0 - 99.0 fL) 85.5 MCH (27.0 - 33.0 pg) 29.4 MCHC (33.0 - 37.0 g/dL) 34.3 RDW (11.5 - 14.5 %) 15.0 H Plt Count (150 - 400 x10 3/uL) 241 MPV (7.0 - 9.0 fL) 10.2 H Neut % (Auto) (56.0 - 77.0 %) 75.6 Lymph % (Auto) (14.0 - 32.0 %) 10.3 L Nelson % (Auto) (4.8 - 9.0 %) 9.3 H Eos % (Auto) (0.3 - 3.7 %) 3.6 Baso % (Auto) (0.0 - 2.0 %) 0.6 Neut # (Auto) (2.0 - 7.6 x10 3/uL) 9.36 H Lymph # (Auto) (1.0 - 3.8 x10 3/uL) 1.28 Nelson # (Auto) (0.1 - 0.8 x10 3/uL) 1.15 H Eos # (Auto) (0.0 - 0.2 x10 3/uL) 0.44 H Baso # (Auto) (0.0 - 0.2 x10 3/uL) 0.08 Abs Immat Gran (auto) (0.00 - 0.03 x10 3/uL) 0 .08 H Add Manual Diff NO Immature Gran % (0.0 - 2.0 %) 0.6 Nucleated RBC % (0 - 0 %) 0.0 Nucleated RBCs # (Man) (0.0 - 0.1 x10 3/uL) 0.0 0 Laboratory Tests 10/18/22 0533: [Embedded Image Not Available] Radiology data Recent Impressions: RADIOLOGY - XR CHEST 1 V 10/18 0642 Report Impression - Status: SIGNED Entered: 10/18/2022 0857 IMPRESSION: 1. Mildly improved lung opacities. 2. Removal of the right IJ catheter sheath. No p neumothorax. Impression By: [facility] - Juan Reilly M.D. Free Text Obj Notes Free Text Obj Notes: General appearance: Elderly female in no acute d istress, interactive and conversational HEENT: atraumatic, normocephalic, moist mucosal membranes Neck: full range of motion, supple/no meningismu s Cardiovascular: S1-S2 irregular irregular, tachy cardia Respiratory: symmetric expansion, no acute respi ratory distress Abdomen: soft, non-tender, no distention, no gua rding Extremities: pedal pulses palpable, moves all, n o clubbing, no cyanosis, mild edema Musculoskeletal: normal inspection, no muscle sp asm Neuro/CHARGING MANIPULATOR: Alert and oriented x3, CNII-XII gross ly intact, no motor deficits Skin: dry, intact and clean surgery site Diagnosis, Assessment Plan Free text A P: 77-year-old female with Severe mitral regurgitation status post MVR on Acute pulmonary insufficiency following major ca rdiothoracic surgery Cardiogenic shock Acute blood loss anemia Metabolic acidosis Hypokalemia Assessment and Plan: Patient was received in room #2208 after mitral valve replacement for severe mitral regurgitation. Since she also underwent pulmonary vein isolatio n along with ligation of left atrial appendage. Patient received 27 mm mitral is bioprosthetic valve. She is currently a paced. Normal LV function. No parava lvular leak or regurgitation after replacement. PA pressures are at 39/19 mmH g. She is oral intubated with ET tube of 7.0 secured at 21 cm at the teeth. Pa tient received 1.2 L of crystalloids intraoperativel y along with 300 mL of Amicar, 430 mL of Cell Saver. She had 100 mL of EBL and 530 mL of urine outpu t. She is currently on norepinephrine at 1 and epinephrine at 3 mics. Patient received vancomycin and Ancef for antibiotic prophylaxis. She is currently on insulin at 6 units/h and the latest blood glucose is 180 mg/dL. She was f ound to be hypokalemic with a potassium of 3.4 and is receiving 40 mg of potas sium chloride intravenously. She also received 2 g of magnesium sulfate. Ches t tube output is 25 mL in the left pleural and 15 mL in the mediastinal chest tube. Pupils are 2 mm bilaterally symmetrical reactive to light. She i s currently on assist-control at 20 tidal volume 450 PEEP of 5 and 50% FiO2 and the latest blood gas shows a pH of 7.35, pCO2 of 40 mmHg, pO2 of 109 mmHg and bicarbonate of 22 mmol with base excess at -3.1. Creatinine 0.60 mg/dL, gluc ose 189 mg/dL, potassium 4.0 mmol, ionized calcium 1.37 mg/dL, hemoglobin 11. 1 g/dL with hematocrit of 33% and sodium 139. Currently sinus rhythm 80 A-pace d, blood pressure 129/47 mmHg and pulse ox 100% while on 50% FiO2. PA pressure is 39/19 mmHg. Sweetie Amaya is a 77-year-old female with past medical history significant for hypertension, dyslipidem ia, paroxysmal atrial fibrillation, carotid stenosis status post CEA in 2020 was evaluated for shortn ess of breath and dyspnea on exertion over the past several months. She denie s any symptoms at rest. No angina symptoms were reported. Patient r eported lower extremity weakness along with shortness of breath. She underwent echocard iogram in the outpatient setting that showed EF of 60 to 65% with a dilat ed left atrium, moderate to severe mitral regurgitation. 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 There was possibility of chordae tendonee ruptur e evidence of trace tricuspid regurgitation with ascending aorta measuring 3.7 cm. Patient underwent left heart catheterization that showed no significant coronary artery disease. Patient underwent CT surgery evaluation for dre re mitral valve regurgitation for possible mitral valve replacement. Alina shannon was brought to CVICU room #2208 oral intubated on the ventilator. She will be fa st-track for extubation. Post-op day 0 after mitral valve replacement for severe mitral regurgitation along with pulmonary vein isolation as well as l eft atrial appendecectomy Patient received 27 mm Mitris bioprosthetic valv e Patient is on elective ventilator depend ence for acute pulmonary insufficiency following major cardiothoracic surgery Currently on assist-control at 20 tidal volume 4 50 PEEP of 5 and 50% FiO2 Latest blood gas shows 7.35, pCO2 of 40 mmHg, pO2 of 109 mmHg and bicarbonate of 22 mmol with base excess at -3.1 Mild metabolic acidosis, give 1 amp of sodium bi carb Follow ABG Patient is altered at this time recovering from anesthesia She will be fast-track for extubate Monitor chest tube output Left pleural output is 25 mL and mediastinal out put is 15 mL Hypomagnesemia, patient received 2 g of magnesiu m sulfate Hypokalemia with a potassium of 3.4 mmol and pat ient receiving 40 mg of potassium chloride Glycemic control with insuli n at 6 units/h and latest blood glucose is 180 mg/dL Perioperative antibiotic therapy with vancomycin and Ancef Patient is currently on vaso pressor and inotropic support with norepinephrine at 1 mcg and epinephrine at 3 mcg Follow blood pressure closely Use albumin as needed No paravalvular leak or mitral regurgitation pos toperatively Normal LV function SCDs for DVT prophylaxis 10/13 Appears neuro intact, multimodal pain control Sats well after extubation, wean O2, encourage I -S, ABG and CXR reviewed BP control with nitroglyceri n drip, remains pacer dependent, keep AV pacing and stop beta-blockers and amiodarone per CT surgery Cr stable, good urine output, lactic acidosis cl eared s/p resuscitation Oral diet as tolerated, bowel regimen, trend LFT s, replete hypomagnesemia Leukocytosis with downtrending WBC, given periop antibiotics Hgb trending down, no evidence of active bleed, monitor CTs output Blood glucose control with insulin drip, transit ion to sliding scale insulin Encourage PT/OT and out of bed as tolerated, DVT prophylaxis with SCDs 10/14 Appears neuro intact, multimodal pain control Sats well on nasal cannula, wean O2, encourage I -S, ABG and CXR reviewed BP control controlled, remai ns pacer dependent, keep AV pacing and stay off beta -blockers and amiodarone per CT surgery Cr stable, good urine output Oral diet as tolerated, bowel regimen, trend LFT s, replete electrolytess Hgb trending down, no evidence of active bleed Blood glucose control with sliding scale insulin Encourage PT/OT and out of bed as tolerated, DVT prophylaxis with SCDs Discussed with CV surgery and ICU team Critical care time 34 minutes 10/15 Appears neuro intact, multimodal pain control Sats well on nasal cannula, wean O2, encourage I -S, ABG and CXR reviewed BP control controlled, remai ns pacer dependent, keep AV pacing and stay off beta -blockers and amiodarone per CT surgery Cr stable, good urine output, Lasix 20 mg p.o. d aily, DC Gonzales Oral diet as tolerated, bowel regimen, trend LFT s, replete electrolytess Hgb is stable no evidence of active bleed Blood glucose control with sliding scale insulin Encourage PT/OT and out of bed as tolerated, DVT prophylaxis with SCDs Discussed with CV surgery and ICU team Critical care time 31 minutes 10/16 Appears neuro intact, multimodal pain control Sats well on nasal cannula, wean O2, encourage I -S, CXR reviewed BP control controlled, remai ns pacer dependent, keep AV pacing and stay off beta -blockers and amiodarone per CT surgery. EP on b oard, plan for pacemaker tomorrow Cr stable, good urine output Oral diet as tolerated, bowel regimen, trend LFT s, replete electrolytess Hgb is stable no evidence of active bleed Leukocytosis reactive, no evidence of infection Blood glucose control with sliding scale insulin Encourage PT/OT and out of bed as tolerated, DVT prophylaxis with SCDs Discussed with CV surgery and ICU team Critical care time 33 minutes 10/17 Remains neuro intact, multimodal pain control Sats well on NC, wean O2, aggressive I-S, CXR re viewed BP fairly controlled, on diuresis and Norvasc, r emains paced with junctional rhythm/bigeminy, keep off beta-blockers and amio darone, plan for permanent pacemaker per EP Cr stable, good urine output , monitor while on diuresis, replete hypomagnesemia Tolerating oral diet, had bowel movement , minimize free water for hyponatremia Mild leukocytosis, likely reactive, monitor off antibiotics Hgb appears stable, no evidence of active bleedi ng Blood glucose controlled, not requiring sliding scale insulin Tolerating PT/OT and out of bed, IPR consulted DVT prophylaxis with SCDs 10/18 Remains neuro intact, multimodal pain control, a void narcotic use Sats well on NC, wean O2, aggressive I-S, CXR re viewed BP fairly controlled, contin ue Norvasc and JENNIFER, A-fib with RVR, start amiodarone per protocol, add beta-blockers, still having bi geminy, plan for permanent pacemaker per EP Cr stable, good urine output, continue diuresis, replete hypomagnesemia Tolerating oral diet, bowel regimen, minimize fr ee water for hyponatremia Mild leukocytosis, WBC trending down, monitoring off antibiotics Hgb remains stable, no evidence of active bleedi ng at this time Blood glucose appears well controlled, discontin ue sliding scale insulin Tolerating PT/OT and out of bed, IPR consulted, DVT prophylaxis with SCDs Consultants: cardiology, cardiovascular surgery, critical/clubhouse manager Plan discussed with: patient , consultants, nurse, interdisc care team, pharmacy/ pharmacist Critical care time: Minutes: 39 Electronically Signed by Sumanth Gray MD on 09/25 11/16 at 1151 RPT #:[id number] END OF REPORT 2022-10-18 [id number] [facility] 09:57:00-00:[address] [place] [address] PATIENT NAME: SWEETIE AMAYA ADMIT DATE: 10/11 ACCOUNT NO: [id number] ROOM NO: [facility] AGE: 77 REPORT TYPE: eELECTROCARDIOGRAM REPORT SEX: F ADMITTING PHYSICIAN:Dory Hoff MD ATTENDING PHYSICIAN:Dory Hoff MD Order: [id number] Test Reason : M Test Date/Time Stamp: MonOct 18 2022 09:57:42 Blood Pressure : / mmHG Vent. Rate : 116 BPM Atrial Rate : 000 BPM P-R Int : 000 ms QRS Dur : 080 ms QT Int : 308 ms P-R-T Axes : 000 065 258 degree s QTc Int : 428 ms Atrial fibrillation with rapid ventricular respo nse Marked ST abnormality, possible inferior subendo cardial injury Abnormal ECG When compared with ECG of 14-OCT-2022 04:47, Significant changes have occurred Confirmed by MEREDITH SABILLON ([id number]) on 11/02/2022 9:08:20 AM Referred By: Dory Hoff Confirmed by:ASHLEY SABILLON at 0908 PATIENT NAME: SWEETIE AMAYA [id number] [facility] 08:18:00-00:00 [facility] Cardiothoracic Surgery Prog REPORT#:[id number] REPORT STATUS: Signed DATE:10/18/22 TIME: 0818 PATIENT: SWEETIE AMAYA UNIT #: [id number] ROOM/BED: [place] [address] : 47 AGE: 77 SEX: F ATTEND: Bella Hoff MD ADM AUTHOR: Harriet Griffin Physic * ALL edits or amendments must be made on the [employer] document * General Post-op: day 5 Status post: 10/12/22 PROCEDURES: 1. Mitral valve replacement (27 Mitris valve). 2. Pulmonary vein isolation. 3. Amputation of left atrial appendage. Subjective Chief complaint: Resting comfortable Denies complaints Status post MVR/PVI/a YUE Review of Systems Constitutional: Denies: chills, fatigue, generalized weakness. Skin: Denies: abrasion, contusion, ecchymosis. Allergy/Immun: Denies: allergic reaction, hives, itching. Eyes: Denies: redness, visual loss/blurred, diplopia. ENT: Denies: ear drainage, hearing loss, nose bleedin g, throat pain. Respiratory: Denies: BLANCO (dyspnea on exertion), pneumonia, SO B. Cardiovascular: Denies: chest pain, orthopnea, palpitations. GI: Denies: abdominal pain, nausea, vomiting. : Denies: dysuria, flank pain. Heme: Denies: adenopathy, bleeding, bruising. Neuro: Denies: headache, syncope. All systems rev neg: except as marked Objective General VS/I O Last Documented: Result Date Time Pulse Ox 100 10/18 06 O2 Delivery Nasal cannula 10/18 629 O2 Flow Rate 2 10/18 06 Temp 99.1 10/18 0630 FiO2 28 10/18 0342 B/P 147/65 10/18 0200 B/P Mean 93 10/18 020 Pulse 80 10/18 0200 Resp 13 10/18 0200 24 hour I O ending at 0700: 10/18 0700 10/17 1900 Intake Total 175 Output Total 1275 Balance -1100 Intake, Oral 175 Output, Urine 1275 Patient 80.3 kg Weight Weight Standing scale Measurement Method PATIENT WEIGHT: Weight (lb): 177 Weight (oz): 0.5 Weight (kg): 80.300 Physical Exam General appearance: alert, awake, oriented Wound/incision: Location: sternum Site condition: dressing clean dry, dressing in tact HEENT: anicteric, mucosal membranes moist, pupil s reactive to light Neck: full range of motion, non-tender Cardiovascular: regular rate rhythm, A paced Respiratory: aerating well Abdomen: soft, non-tender Genitourinary: urine Extremities: dry, moves all Musculoskeletal: full range of motion Neuro/CHARGING MANIPULATOR: alert, oriented X 3 Skin: dry, intact Psychiatry: normal affect, normal mood Diagnosis, Assessment Plan Hospital course to date: This is a 77-year with a past medical history of new diagnosis of atrial fibrilation, hypertension, hyperlipidemia, carot id stenosis status post right carotid endarterectomy 2020, who presented as an outpatient for evaluation of increased shortness of breath over the past rde ral months. She reports most of her symptoms are wit h exertion. She denies any symptoms at rest. She denies any chest pains. She reports only recently being diagnose d with Atrial fibrillaiton. She denies takign any furhter anticoagulation. She also reports lower extremity weakness with h er shortness of breath. The patient underwent echocardiogram in the outpatient setting. By report this showed EF 60 to 65%, dilated LA, moderate to sev ere MR. 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 Trace T R, ascending aorta measurement 3.7 cm. Patient underwent [facility] heart [facility] no significant carotid artery stenosis. Review of the patient's records show patient als o had a carotid Doppler completed on May 2022 showing less than 50% st enosis in the left internal carotid artery CV surgery consulted for evaluation of severe mi tral valve regurgitation for possible mitral valve repair versus replacement Assessment/plan 1. Dyspnea on exertion Likely secondary to severe MR 2.Severe MR 3. Hypertension 4. Dyslipidemia 5. Atrial fibrilation. Patient reports a rather active lifestyle workin g in her yard frequently. However since the past several months her increa sed dyspnea on exertion has caused her decrease her activity. Patient has no lower extremity edema. Patient was seen and examined at [facility]. Mitral valve replacement versus repair was discussed with the patient. Patient is not on any blood thinners Coronary angiogramtoday showed no obstructive co ronary artery disease We will begin work-up for mi tral valve repair repair versus replacement, PVI and ALAA 10/12/22 PROCEDURES: 1. Mitral valve replacement (27 Mitris valve). 2. Pulmonary vein isolation. 3. Amputation of left atrial appendage. 10/13/22 POD 1 POD AAOx3 Respiratory: On 3 L nasal cannula, wean as martin ated, Encourage IS, Deep Breathing, CXR reviewed chest tube drainage 160 mediastina l. Left pleural 90 Chest tubes in today. Reassess after walking Cardiac: Asystole underlying. Atrial paced V sen sed. On nitro drip for hypertension. GI: Continue Bowel regimen, gas? : Gonzales in place UO:500 Continue PT/OT, out of bed walking the unit DVT prophylaxis SCDs in place Labs reveiwed- replace electrolytes as needed Patient seen and examined by Dr. Carey. Plan o f care discussed with multidisciplinary team MARCOS Gilliland, stop beta-milla due to asystole. 10/14/22 POD 3 AAOx3 Respiratory: On 2 L nasal cannula, wean as martin ated, Encourage IS, Deep Breathing, CXR reviewed. DC chest tubes today Chest tubes in today. Reassess after walking Cardiac: Asystole underlying. Atrial paced V sen sed. Hold beta-blockers and amiodarone, EP has seen the patient. Consider milad winn next week if no underlying rhythm GI: Continue Bowel regimen, +BM : Gonzales in place UO:1250 Continue PT/OT, out of bed walking the unit DVT prophylaxis SCDs in place Labs reveiwed- replace electrolytes as needed Patient seen and examined by Dr. Carey. Plan o f care discussed with multidisciplinary team Disposition Home with family support with her howard s DC neck line DC A-LINE 10/17/22 POD 4 Patient in stable condition Labs and CXR reviewed Wean off oxygen as tolerated, on 2l n/c Encourage deep breathing and I-S use Obtain 12 lead EKG, SR this AM, EP following Discontinue central line Tolerating cardiac diet Bowel regimen PT/OT, OOB in chair Continue close monitoring in CVICU 10/18/22 POD 5 Patient resting comfortable, denies complaints. AAOx3 Labs and chest x-ray reviewed On room air EP following. Plans for pacemaker implantation Cardiac atrial paced V sensed, patient went into intermittent atrial fibrillation. Management as per EP recomendation s UO 1275 Weight trending down GI continue bowel regimen+ BM Patient seen and examined at [facility]. Plan of ca re discussed with multidisciplinary team Continue supportive care Consultants: cardiology, cardiovascular surgery, critical/clubhouse manager at 1337 at 1126 RPT #:[id number] END OF REPORT 2022-10-17 [facility] 13:47:00-00:00 [facility] ([facility] Acute Rehab Consult REPORT#:[id number] REPORT STATUS: Signed DATE:10/17/22 TIME: 1347 PATIENT: SWEETIE AMAYA UNIT #: [id number] ROOM/BED: [address] : 47 AGE: 77 SEX: F ATTEND: Bella Hoff MD ADM AUTHOR: Cinthya Burger PA-C * ALL edits or amendments must be made on the el [employer]/computer document * History of Present Illness HPI Reason for consult: evaluation of Rehab needs PCP: PCP: Yenny Boone MD Requesting clinician: Harriet Lanza 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 She denies any symptoms at rest. No angina symptoms were reported. Patient reported lower extremity weakn ess along with shortness of breath. She underwent echocardiogram in the outp atient setting that showed EF of 60 to 65% with a dilated left atrium, moderat e to severe mitral regurgitation. 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 There was possibility of chordae tendonee rupture evidence of trace tricuspid regurgitation with ascending aorta measuring 3.7 cm. Patient underwent left heart catheterization that showed no significant coronary artery disease. Patient underwent CT surgery evaluation for dre re mitral valve regurgitation for possible mitral valve replacement.On 10/12 sh e was brought to the OR and underwent Mitral Valve Replaacement, PUl monary Vein Isolation and Amutation of the left atrial appendage on 10/12/[address] Yuri mcdonald. Postoperatively, the patient is pacer dependent and has junctional br adycardia of pacer, off amiodarone and on metoprolol. A consult was requ ested for possible permanent pacemaker with EP. EP now recommending permanant pacemaker and pending placement for today by Dr. Nash. Functional Status PT evaluation: PERVISION: 1. One on one supervision with cueing and zack tance provided to ensure proper performance of all activities. Yes Precautions: STERNAL FALL CARDIAC PACER DEPENDANT Pre- Gait Mobility Y/N: Yes Safety addressed through use of: Extra Personne l Verbal Cues Tactile Cues Gait Device WC HANDLES WC FOLLOW Vital Signs/Oxygen: Yes (Prev Page) PACER DEPENDANT Weightbearing: No Restriction Ambulation Distance: 250 FT Progression: Forward Assistance Level: Minimal Assistance Gait Deviations: Base of Support - Narrow Decreased Amy Document Pain/Education: No Advanced Progression: No Effects of Treatment: Cardio tolerance improved Post TX Precautions: In Chair Call Light in Reach Nursing Notified Review Plan of Care: Yes PT charges: Gait Training [id number] Gait Cmt: PATIENT IN BEDSIDE CHAIR UPON ARRIVAL AND AGREEABLE TO THERAPY. PATIENT MIN A FOR SIT TO STAND AND AMBULATED 250' WITH WC HANDLES AND WC FOLLOW FOR SAFETY. PATIENT NOTED WITH NARROW SALVADOR S , AND HEAD DOWN DURING GAIT. MODERATE SOB AND BRIEF STANDING REST BREAK TO RECOVER. PATIENT PLACED BACK IN BEDSIDE CHAIR WITH CALL DE LA TORRE IN REACH AND ALL NEEDS MET. RN NOTIFIED AND AWARE. If this is the patient's last treatment, this e ntry Start Time: 1010 Stop Time: 1026 Treatment Time : ( minutes) 0:16 Completed by: Uri Martin Conference/Supervising PT: Yes Supervising Therapist: [email or web address] Laurie Kirkland . BED MOBILITY: No TRANSFERS: Yes Sit to/from stand: Minimal Assistance CARDIO-RESPIRATORY IMPAIRMENT Items determined to be OUTSIDE the Functional L imits are as follows: Patient on Telemetry?: Yes Rhythm: Normal Sinus Rhythm Patient receiving Oxygen?: No Oxygen Saturation (%): 95 During Treatment: 95 Post Treatment: 95 Blood Pressure (mm Hg): 133/58 Heart rate: 70 During Treatment: 70 Post Treatment: 158/69 Post Treatment: 70 OT evaluation: . One on one supervision with cueing and assista nce provided to ensure proper performance of all activities: Yes Precautions: Cardiac Fall Sternal Oxygen Desaturation Safety addressed through use of: Verbal Cues Tactile Cues Observed precautions for: SEE ABOVE ACTIVITIES PERFORMED: Sit to Stand: Minimal Assistance Toilet transfer: Minimal Assistance Activities Performed Cmt: PATIENT COMPLETED SIT <>STAND XFERS, DYNAMIC STANDING TASKS, COMMUNITY MOBILITY 250X1, TOILE T XFERS, AND RETURNS TO BED SUPINE W HOB ELEVATE D. Assistive Device Used: Staff Support TRANSPORT CHAIR HANDLES Balance: Fair Safety Awareness: Good Effects of Treatment: Cardio tolerance improved Circulation improved Impro. postural alignment Review OT Plan of Care: Yes Document OT charges: FT/THERAP. ACTIVITY [id number] SELF/HOME MGT/ADL [id number] If this is the patient's last treatment, this e ntry Start Time: 951 Stop Time: 1016 Treatment time ( minutes): 0:24 Completed by: Obie Moyer History Past medical history: Reports: Hypertension, Dyslipidemia. Denies: Ailyn betes mellitus, Anticoagulant therapy, Atrial flutter, Ischemic stroke, Prior AL, Venous thromboembolism. Past surgical history: Reports: Carotid endarterectomy (RIGHT ), Knee p rocedure. Alcohol use: Denies EtOH use Drug use: Denies recreational drugs Smoking status for patients 13 years old or olde r: Never Smoker Additional social history: Pt lives at home with her hu myranda. She was IND and actove as PLOF. She does not use DME as PLOF. She states that she has a RW fr om previous TKA Medications: Home Medications: Medication Dose/Rte/Freq Days Qty Entered Last Max Daily Dose Reviewed MELATONIN 5 MG PO BEDTIME 10/27/20 10/11/22 Strength: 3 MG TAB 1051 1154 MESALAMINE ER (APRISO) 1.5 GM PO DAILY 10/10/22 10/11/22 Strength: 0.375 GRAM 1300 1154 CAP.SR.24H LISINOPRIL/HCTZ 1 TAB PO DAILY 01/17/13 3 (ZESTORETIC 20/12.5 MG) 1013 1154 Strength: 1 TAB TAB amLODIPine (NORVASC) 5 MG PO DAILY 01/17/13 Strength: 5 MG TAB 1013 1154 OMEPRAZOLE ER (PriLOSEC) 40 MG PO DAILY 10/11/22 Strength: 40 MG CAP.DR 1246 1154 ASPIRIN 81 MG PO DAILY 11/27/18 10/11/22 Strength: 81 MG TAB.CHEW 0814 1154 METOPROLOL SUCC XL 50 MG PO DAILY 10/27/2009/24 (TOPROL XL) 1052 1154 Strength: 50 MG TAB.SA ATORVASTATIN (LIPITOR) 20 MG PO 3X WEEKLY 01/2410/11/22 Strength: 20 MG TAB 1438 1154 ASCORBIC ACID (VITAMIN 1,000 MG PO DAILY 10/0510/11/22 C) Strength: 1,000 MG TAB 0959 1154 CHOLECALCIFEROL 1,000 UNITS PO DAILY 10/05/22 0 10/11/22 (VITAMIN D3) 1000 1154 (VITAMIN D3) Strength: 25 MCG (1,000 UNIT) CAP LACTOBACILLUS 1 CAP PO DAILY 10/05/22 10/11/22 ACIDOPHILUS 1001 1154 (PROBIOTIC ACIDOPHILUS) Strength: 1 CAP CAP BIOTIN 10 MG PO DAILY 10/05/22 10/11/22 Strength: 10 MG TAB 1001 1154 GABAPENTIN (NEURONTIN) 600 MG PO BEDTIME 10/11/22 Strength: 300 MG CAP 1002 1154 Current Hospital Medications: Ahfs Category Unknown Sig/Paulette Start time Last Medication Dose Route Stop Time Status Admin Melatonin 6 MG BEDTIME 10/12 2199 AC 10/16 (Melatonin) PO 11/11 Anti-Infective Agents Sig/Paulette Start time Last Medication Dose Route Stop Time Status Admin Vancomycin HCl 1,000 MG PREOP ONCALL 10/17 0500 CKD (VANCOMYCIN HCL) IV 10/17 2359 Sodium Chloride 250 ML (SODIUM CHLORIDE 0.9%) Autonomic Drugs Sig/Paulette Start time Last Medication Dose Route Stop Time Status Admin Ipratropium [employer] 500 MCG RTQ2H PRN PRN 10/15 1022 AC 10/16 (ATROVENT) INH 11/14 1021 0255 Epinephrine 4 MG ASDIR 10/12 1030 AC (ADRENALIN CHLORIDE) IV 11/11 1029 Dextrose/Water 246 ML (DEXTROSE 5% WATER) Norepinephrine 250 ML TITRATE 10/12 1030 AC Bitartrate IV 11/11 1029 (NOREPINEPHRINE 8 MG/ NS 250 ML) Blood Formation,Coagulation Sig/Paulette Start time Last Medication Dose Route Stop Time Status Admin Ferrous Sulfate 325 MG DAILY 10/15 0900 AC 09/25 4 (FERROUS SULFATE) PO 11/14 0859 0739 Cardiovascular Drugs Sig/Paulette Start time Last Medication Dose Route Stop Time Status Admin Amlodipine Besylate 5 MG BEDTIME 10/17 2100 AC (NORVASC) PO 11/16 2058 Captopril 6.25 MG Q8HR 10/14 0745 AC 10/17 (CAPOTEN (NF)) PO 11/13 0744 0626 Atorvastatin Calcium 40 MG 2100 10/13 2100 AC 0 10/16 (LIPITOR) PO 11/12 2058 2039 Nitroglycerin/ 250 ML ASDIR 10/12 1030 AC Dextrose IV 11/11 1029 (NITROGLYCERIN 50,000MCG/D5W 250ML) Central Nervous System Agents Sig/Paulette Start time Last Medication Dose Route Stop Time Status Admin Hydrocodone Bitart/ 2 TAB Q4H PRN PRN 10/17 123 0 AC Acetaminophen PO 10/22 1229 (NORCO 5/325) Tramadol HCl 25 MG QID PRN 10/14 1130 AC 10/14 (ULTRAM) PO 10/19 1129 1358 Gabapentin 200 MG BID 10/12 2100 DC 10/17 (NEURONTIN) PO 10/17 0901 0739 Oxycodone HCl 5 MG Q4H PRN PRN 10/12 1745 AC (ROXICODONE) PO 10/17 1744 0740 Oxycodone HCl 10 MG Q4H PRN PRN 10/12 1745 AC 0 10/14 (ROXICODONE) PO 10/17 1744 0810 Aspirin 81 MG DAILY 10/12 1622 AC 10/17 (ASPIRIN) PO 11/11 1621 0739 Acetaminophen 650 MG Q4H PRN PRN 10/12 1030 AC 10/16 (TYLENOL) PO 11/11 1029 1542 Acetaminophen 650 MG Q4H PRN PRN 10/12 1030 AC (TYLENOL) RECTAL 11/11 1029 Magnesium Sulfate 100 ML ASDIR PRN 10/12 1030 A C (MAGNESIUM SULFATE IV 11/11 1029 4GM/SWFI 100ML) Magnesium Sulfate 50 ML ASDIR PRN 10/12 1030 AC 10/17 (MAGNESIUM SULFATE IV 11/11 1029 0630 2GM/SWFI 50ML) Magnesium Sulfate/ 100 ML ASDIR PRN 10/12 1030 AC 10/13 Dextrose IV 11/11 1029 0415 (MAGNESIUM SULFATE 1GM/D5W 100ML) Electrolytic, Caloric, And Ann Marie Sig/Paulette Start time Last Medication Dose Route Stop Time Status Admin Furosemide 20 MG BID 9A 5P 10/17 1700 AC (LASIX 20MG INJ) IV 11/16 1659 Sodium Chloride 10 ML BID 10/16 2100 AC 10/16 (SODIUM CHLORIDE) IV 11/15 2058 2039 Potassium Chloride 20 MEQ ONCE ONE 10/16 1745 C AN (POTASSIUM CHLORIDE PO 10/16 1746 20MEQ TAB.ER) Sodium Chloride 10 ML ASDIR PRN 10/16 1245 AC (SODIUM CHLORIDE) IV 11/15 1244 Dextrose/Water 125 ML ASDIR PRN 10/13 1100 CKD (DEXTROSE 10% IN IV 11/12 1059 WATER) Dextrose/Water 250 ML ASDIR PRN 10/13 1100 CKD (DEXTROSE 10% IN IV 11/12 1059 WATER) Calcium Chloride 1 GM ASDIR PRN 10/12 1030 AC (CALCIUM CHLORIDE) IV 11/11 1029 Potassium Chloride 100 ML ASDIR PRN 10/12 1030 AC (KCL 20MEQ/SWFI IV 11/11 1029 100ML) Sodium Bicarbonate 50 MEQ ASDIR PRN 10/12 1030 AC (SODIUM BICARBONATE) IV 11/11 1029 Sodium Chloride 1,000 ML .Q20H 10/12 1030 AC (SODIUM CHLORIDE IV 11/11 1029 0146 0.9%) Sodium Chloride 250 ML Q24H 10/12 1030 AC 10/15 (SODIUM CHLORIDE IV 11/11 1029 0951 0.9%) Gastrointestinal Drugs Sig/Paulette Start time Last Medication Dose Route Stop Time Status Admin Bisacodyl 10 MG ONCE PRN 10/14 1200 AC (DULCOLAX) RECTAL 11/13 1159 Mesalamine 800 MG BID 10/13 0900 AC 10/17 (DELZICOL 400MG CAP PO 11/12 08 0750 ) Polyethylene Glycol 17 GM DAILY 10/13 0900 AC 0 10/15 (MIRALAX) PO 11/12 0859 0731 Docusate Sodium 100 MG BID 10/12 2100 AC 10/17 (COLACE) PO 11/11 Sennosides 17.2 MG BEDTIME 10/12 2100 AC 10/16 (Senna Lax 8.6 MG PO 11/11 TABLET) Ondansetron HCl 4 MG Q6H PRN PRN 10/12 1030 AC 10/15 (ZOFRAN) IV 11/11 1029 2147 Hormones And Synthetic Substit Sig/Paulette Start time Last Medication Dose Route Stop Time Status Admin Insulin Human Lispro 0 AC HS 10/13 1130 AC (HUMALOG) SUBQ 11/12 1129 0809 Glucagon 1 MG ASDIR PRN 10/13 1100 AC (GLUCAGON) IM 11/12 1059 Glucagon 1 MG ASDIR PRN 10/12 1030 AC (GLUCAGON) IM 11/11 1029 Skin And Mucous Membrane Agent Sig/Paulette Start time Last Medication Dose Route Stop Time Status Admin Mupirocin 1 APPLIC BID 10/12 1352 DC 10/16 (BACTROBAN 2% 22 GM NASAL 10/16 OINTMENT) Vitamins Sig/Paulette Start time Last Medication Dose Route Stop Time Status Admin Cyanocobalamin 500 MCG DAILY 10/15 09 AC 09/25 4 (Vitamin B-12 500 PO 11/14 0859 0739 mcg tab) Allergies: Coded Allergies: Penicillins (Intermediate, BREATHING ISSUES- OK W KEFLEX 10/05/22) SPECIFIC Allergy: PENICILLINS Review of Symptoms ROS ROS comments: States that she feels very weak. Usually with br adycardia and needing a pacemaker. No chest pain, sob, abd pain. States no BM and feels constipated. States with some edema. Objective Physical Exam VS: Last Documented: Result Date Time Pulse Ox 97 10/17 1000 B/P 100/75 10/17 1000 B/P Mean 84 10/17 1000 Pulse 72 10/17 1000 Resp 22 10/17 1000 O2 Delivery Room air 10/17 0755 O2 Flow Rate 2 10/17 0740 FiO2 21 10/17 0355 Temp 97.3 10/16 1930 PATIENT WEIGHT: Weight (lb): 175 Weight (oz): 14.86 Weight (kg): 79.800 General appearance: alert, awake HEENT: anicteric, mucosal membranes moist, scler a clear Neck: supple, no JVD Cardiovascular: regular rate rhythm, S1/S2, exte rnal pacemaker Respiratory: aerating well, clear bilaterally Abdomen: bowel sounds present, non-distended, so ft, non-tender Skin: dry, intact, no rash Musculoskeletal - general: Musculoskeletal - general: swelling, joints nor mal, range of motion normal, strength testing normal, no swelling Neuro/CHARGING MANIPULATOR: alert, oriented X 3, normal speech, n o motor deficits, no sensory deficits Results Findings/Data: Laboratory Tests: 10/17 10/16 10/16 10/16 0354 2038 1555 1544 Chemistry Sodium (134 - 147 mEq/L) 130 L 125 L Potassium (3.4 - 5.0 mEq/L) 4.5 4.8 Chloride (100 - 108 mEq/L) 96 L 95 L Carbon Dioxide (21 - 33 mEq/l) 30 27 Anion Gap (0 - 20) 9 8 BUN (7 - 18 mg/dL) 10 10 Creatinine (0.6 - 1.3 mg/dL) 0.6 0.7 Glomerular Filtr Rate (70 - 80) 93.6 H 90.1 H Glucose (70 - 110 mg/dL) 110 124 H POC Glucose (70 - 110 MG/DL) 136 H 128 H Calcium (8.0 - 10.5 mg/dL) 9.2 9.2 Magnesium (1.80 - 2.40 mg/dL) 1.97 1.88 Hematology WBC (4.5 - 11.0 x10 3/uL) 13.2 H RBC (3.54 - 5.02 x10 6/uL) 2.83 L Hgb (11.0 - 15.0 g/dL) 8.0 L Hct (33.0 - 45.0 %) 24.2 L MCV (81.0 - 99.0 fL) 85.5 MCH (27.0 - 33.0 pg) 28.3 MCHC (33.0 - 37.0 g/dL) 33.1 RDW (11.5 - 14.5 %) 15.0 H Plt Count (150 - 400 x10 3/uL) 224 MPV (7.0 - 9.0 fL) 10.1 H Neut % (Auto) (56.0 - 77.0 %) 79.3 H Lymph % (Auto) (14.0 - 32.0 %) 9.1 L Nelson % (Auto) (4.8 - 9.0 %) 7.9 Eos % (Auto) (0.3 - 3.7 %) 2.7 Baso % (Auto) (0.0 - 2.0 %) 0.5 Neut # (Auto) (2.0 - 7.6 x10 3/uL) 10.50 H Lymph # (Auto) (1.0 - 3.8 x10 3/uL) 1.21 Nelson # (Auto) (0.1 - 0.8 x10 3/uL) 1.04 H Eos # (Auto) (0.0 - 0.2 x10 3/uL) 0.36 H Baso # (Auto) (0.0 - 0.2 x10 3/uL) 0.06 Abs Immat Gran (auto) (0.00 - 0.03 0.07 H x10 3/uL) Add Manual Diff NO Immature Gran % (0.0 - 2.0 %) 0.5 Nucleated RBC % (0 - 0 %) 0.0 Nucleated RBCs # (Man) (0.0 - 0.1 x10 3/uL) 0.0 0 Radiology data: Recent Impressions: RADIOLOGY - XR CHEST 1 V 10/17 3156 Report Impression - Status: SIGNED Entered: 10/17/2022 1006 IMPRESSION: Worsened signs of volume overload/pulmonary brady a with trace bilateral pleural effusions. Impression By: [email or web address] Juan José Hayward D.O. Diagnosis, Assessment Plan Problem List/A P: 1. S/P CABG (coronary artery bypass graft) 2. S/P placement of cardiac pacemaker Free Text A P: Severe mitral regurgitation status post MVR on Acute pulmonary insufficiency following major ca rdiothoracic surgery Cardiogenic shock Acute blood loss anemia Metabolic acidosis Hypokalemia Sick Sinus Syndrome Hx Asthma GERD HTN P A FIB Plan: PT/OT consulted. She will need to be NWB to the LUE along with her sternal precautions. Continue to work on weaning O2 as t olerated. Therapy to work on OOB daily to the chair, zepeda sfers, progressive gait, adls and etc. Will see how she does post PPM with precautions and make furt her recommendations. Electronically Signed by Cinthya Burger PA-C on at 1245 RPT #:[id number] END OF REPORT 2022-10-17 [facility] 12:34:00-00:00 [facility] Hospitalist Progress Note REPORT#:[id number] REPORT STATUS: Signed DATE:10/17/22 TIME: 1234 PATIENT: SWEETIE AMAYA UNIT #: [id number] ROOM/BED: [place] [id number] : 47 AGE: 77 SEX: F ATTEND: Bella Hoff MD ADM AUTHOR: Nina Melgar MD * ALL edits or amendments must be made on the Onevest/computer document * Subjective Chief complaint: rest on the bed . no sob 1. Mitral valve replacement 2. Pulmonary vein isolation. 3. Amputation of left atrial appendage. HPI: 77 YO female with PMHx of hy pertension, hyperlipidemia, carotid artery disease s /p R CEA was admitted to the hospital for mitral valve surgery . she has been progressively worsening of s ob . she was found severe mitral valve regurgitation . LHC was done . it show no blockage . she had mitral valve surgery today . she was seen in CVICU post procedure . she was intub ated on the vent support . 2 drainage tube are in place . history is obtained from staff and review the chart . Review of Systems Constitutional: Reports: generalized weakness. Denies: lethargy. Respiratory: Denies: SOB, wheezing. Cardiovascular: Denies: chest pain, BLANCO (dyspnea on exertion), e vasiliy, palpitations. GI: Denies: abdominal pain, nausea, vomiting. Neuro: Denies: dizziness. Objective General VS/I O: Vital Signs: Date Time Temp Pulse Resp B/P B/P Pulse O2 O2 F low FiO2 Mean Ox Delivery Rate 10/17 1000 72 22 100/75 84 97 10/17 0901 72 25 135/64 92 95 10/17 0801 83 36 150/64 92 94 10/17 0755 95 Room air 10/17 0740 Nasal 2 cannula 10/17 0701 70 22 187/77 110 100 10/17 0600 70 18 189/80 115 10/17 0500 70 17 177/78 112 10/17 0400 70 173/76 109 100 10/17 0355 100 Nasal 1 21 cannula 10/17 0300 70 15 165/77 110 99 10/17 0201 70 13 155/60 87 99 10/17 0101 70 17 181/75 108 100 10/16 2300 70 16 166/73 105 99 10/16 2201 70 13 153/65 93 99 10/16 2100 70 18 176/81 116 98 10/16 2012 98 Nasal 1 24 cannula 10/16 2000 69 15 173/79 114 96 10/16 1930 36.3 10/16 1901 69 24 167/72 104 95 10/16 1815 70 29 94 10/16 1800 70 18 96 10/16 1700 69 15 93 10/16 1528 95 Room air 10/16 1500 69 23 92 10/16 1400 69 22 93 10/16 1300 70 95 24 hour I O ending at 0700: 10/17 0700 10/16 1900 Intake Total 240 360 Output Total 1850 600 Balance -1610 -240 Intake, Oral 240 360 Number Voids 4 Output, Urine 1850 600 Patient 79.8 kg Weight Weight Standing scale Measurement Method PATIENT WEIGHT: Weight (lb): 175 Weight (oz): 14.86 Weight (kg): 79.800 Medications: Active Meds + DC'd Last 24 Hrs Furosemide (LASIX 20MG INJ) 20 MG BID 9A 5P IV Hydrocodone Bitart/Acetaminophen (NORCO 5/325) 2 TAB Q4H PRN PRN PO Vancomycin HCl (VANCOMYCIN HCL) 1,000 MG PREOP O NCALL IV (CKD) Sodium Chloride (SODIUM CHLORIDE 0.9%) 250 ML Sodium Chloride (SODIUM CHLORIDE) 10 ML BID IV Potassium Chloride (POTASSIUM CHLORIDE 20MEQ TAB .ER) 20 MEQ ONCE ONE PO (CAN) Lidocaine HCl (LIDOCAINE 1% 5ML) 5 ML ONCE ONE L OCAL (DC) Sodium Chloride (SODIUM CHLORIDE) [address] N IV Ipratropium [employer] (ATROVENT) 500 MCG RTQ2H PRN PRN INH Cyanocobalamin (Vitamin B-12 500 mcg tab) 500 MC G DAILY PO Ferrous Sulfate (FERROUS SULFATE) 325 MG DAILY P O Bisacodyl (DULCOLAX) 10 MG ONCE PRN RECTAL Tramadol HCl (ULTRAM) 25 MG QID PRN PO Captopril (CAPOTEN (NF)) 6.25 MG Q8HR PO Atorvastatin Calcium (LIPITOR) 40 MG 2100 PO Insulin Human Lispro (HUMALOG) 0 AC HS SUBQ Dextrose/Water (DEXTROSE 10% IN WATER) 125 ML DIR PRN IV (CKD) Dextrose/Water (DEXTROSE 10% IN WATER) 250 ML DIR PRN IV (CKD) Glucagon (GLUCAGON) 1 MG ASDIR PRN IM Mesalamine (DELZICOL 400MG CAP DR.) 800 MG BID P O Polyethylene Glycol (MIRALAX) 17 GM DAILY PO Melatonin (Melatonin) 6 MG BEDTIME PO Docusate Sodium (COLACE) 100 MG BID PO Gabapentin (NEURONTIN) 200 MG BID PO (DC) Sennosides (Senna Lax 8.6 MG TABLET) 17.2 MG BED TIME PO Oxycodone HCl (ROXICODONE) 5 MG Q4H PRN PRN PO Oxycodone HCl (ROXICODONE) 10 MG Q4H PRN PRN PO Aspirin (ASPIRIN) 81 MG DAILY PO Mupirocin (BACTROBAN 2% 22 GM OINTMENT) 1 APPLIC BID NASAL (DC) Acetaminophen (TYLENOL) 650 MG Q4H PRN PRN PO Acetaminophen (TYLENOL) 650 MG Q4H PRN PRN RECTA L Calcium Chloride (CALCIUM CHLORIDE) 1 GM ASDIR P RN IV Epinephrine (ADRENALIN CHLORIDE) 4 MG ASDIR IV Dextrose/Water (DEXTROSE 5% WATER) 246 ML Glucagon (GLUCAGON) 1 MG ASDIR PRN IM Magnesium Sulfate (MAGNESIUM SULFATE 4GM/SWFI 10 0ML) 100 ML ASDIR PRN IV Magnesium Sulfate (MAGNESIUM SULFATE 2GM/SWFI 50 ML) 50 ML ASDIR PRN IV Magnesium Sulfate/Dextrose (MAGNESIUM SULFATE 1G M/D5W 100ML) 100 ML ASDIR PRN IV Nitroglycerin/Dextrose (NITROGLYCERIN 50,000MCG/ D5W 250ML) 250 ML ASDIR IV Norepinephrine Bitartrate (NOREPINEPHRINE 8 MG/N S 250 ML) 250 ML TITRATE IV Ondansetron HCl (ZOFRAN) 4 MG Q6H PRN PRN IV Potassium Chloride (KCL 20MEQ/SWFI 100ML) 100 ML ASDIR PRN IV Sodium Bicarbonate (SODIUM BICARBONATE) 50 MEQ A SDIR PRN IV Sodium Chloride (SODIUM CHLORIDE 0.9%) 1,000 ML .Q20H IV Sodium Chloride (SODIUM CHLORIDE 0.9%) 250 ML Q2 4H IV Physical Exam General appearance: alert, awake, oriented Head/Eyes: atraumatic, normal conjunctiva/sclera , normal eyelids/periorb. ENT: intubated Neck: full range of motion, non-tender Cardiovascular: normal heart sounds, regular rat e rhythm Respiratory: clear to auscultation Abdomen: non-tender, normal bowel sounds, soft, no distention Extremities: no edema Neuro/CHARGING MANIPULATOR: alert, oriented X 3, CNII-XII intact, normal speech, no motor deficits, no sensory deficits Results Findings/Data: Laboratory Tests 10/17 Chemistry Sodium (134 - 147 mEq/L) 130 L Potassium (3.4 - 5.0 mEq/L) 4.5 Chloride (100 - 108 mEq/L) 96 L Carbon Dioxide (21 - 33 mEq/l) 30 Anion Gap (0 - 20) 9 BUN (7 - 18 mg/dL) 10 Creatinine (0.6 - 1.3 mg/dL) 0.6 Glomerular Filtr Rate (70 - 80) 93.6 H Glucose (70 - 110 mg/dL) 110 POC Glucose (70 - 110 MG/DL) 136 H Calcium (8.0 - 10.5 mg/dL) 9.2 Magnesium (1.80 - 2.40 mg/dL) 1.97 Laboratory Tests 10/17 353 Hematology WBC (4.5 - 11.0 x10 3/uL) 13.2 H RBC (3.54 - 5.02 x10 6/uL) 2.83 L Hgb (11.0 - 15.0 g/dL) 8.0 L Hct (33.0 - 45.0 %) 24.2 L MCV (81.0 - 99.0 fL) 85.5 MCH (27.0 - 33.0 pg) 28.3 MCHC (33.0 - 37.0 g/dL) 33.1 RDW (11.5 - 14.5 %) 15.0 H Plt Count (150 - 400 x10 3/uL) 224 MPV (7.0 - 9.0 fL) 10.1 H Neut % (Auto) (56.0 - 77.0 %) 79.3 H Lymph % (Auto) (14.0 - 32.0 %) 9.1 L Nelson % (Auto) (4.8 - 9.0 %) 7.9 Eos % (Auto) (0.3 - 3.7 %) 2.7 Baso % (Auto) (0.0 - 2.0 %) 0.5 Neut # (Auto) (2.0 - 7.6 x10 3/uL) 10.50 H Lymph # (Auto) (1.0 - 3.8 x10 3/uL) 1.21 Nelson # (Auto) (0.1 - 0.8 x10 3/uL) 1.04 H Eos # (Auto) (0.0 - 0.2 x10 3/uL) 0.36 H Baso # (Auto) (0.0 - 0.2 x10 3/uL) 0.06 Abs Immat Gran (auto) (0.00 - 0.03 x10 3/uL) 0. 07 H Add Manual Diff NO Immature Gran % (0.0 - 2.0 %) 0.5 Nucleated RBC % (0 - 0 %) 0.0 Nucleated RBCs # (Man) (0.0 - 0.1 x10 3/uL) 0.0 0 Radiology data: Recent Impressions: RADIOLOGY - XR CHEST 1 V 10/17 7165 Report Impression - Status: SIGNED Entered: 10/17/2022 1006 IMPRESSION: Worsened signs of volume overload/pulmonary brady a with trace bilateral pleural effusions. Impression By: [email or web address] - Arnie Hayward D.O. Diagnosis, Assessment Plan Consultants: cardiology, cardiovascular surgery, critical/clubhouse manager Free Text DxA P Notes Free text DxA P notes: acute respiratory failure --post procedure severe mitral valve regurgitation HTN HLD CHF -- diastolic intubated on the vent support --post procedure post mitral valve surgery HTN -- on metoprolol monitor BP HLD --lipitor cardiology consult CV surgeon consult critial care consult monitor in the CVICU 1. Mitral valve replacement (27 Mitris valve). 2. Pulmonary vein isolation. 3. Amputation of left atrial appendage. 10/13- she was extubated yesterday she sit on the chair no sob [address] -- she is hemodynamic stable --review lab and image -- case is discussed with nurse 10/14- she sit on the chair -- drainage tube are out -- she feel better -- she is hemodynamic stable -- continue PT/OT continue monitor in CVICU -- review all lab and image 10/15 Continue post-op care, bowel regimen. OOB/a mbulate with PT/OT. 10/16 Had echo today. Continue PT/OT post-op. 10/17- she feel better - she is hemodynamic stable -- continue PT/OT -- rehab evaluation -- review all all lab and image -- case is discussed with nurse Electronically Signed by Nina Melgar MD on 3 at 1738 RPT #:[id number] END OF REPORT 2022-10-17 [facility] 10:03:00-00:00 [facility] Cardiothoracic Surgery Prog REPORT#:[id number] REPORT STATUS: Signed DATE:10/17/22 TIME: 1003 PATIENT: SWEETIE AMAYA UNIT #: [id number] ROOM/BED: [place] [id number] : 47 AGE: 77 SEX: F ATTEND: Bella Hoff MD ADM AUTHOR: Navdeep Carey MD * ALL edits or amendments must be made on the Onevest/computer document * General Post-op: day 4 Status post: 10/12/22 PROCEDURES: 1. Mitral valve replacement (27 Mitris valve). 2. Pulmonary vein isolation. 3. Amputation of left atrial appendage. Subjective Chief complaint: Resting comfortable Denies complaints Status post MVR/PVI/a YUE Review of Systems Constitutional: Denies: chills, fatigue, generalized weakness. Skin: Denies: abrasion, contusion, ecchymosis. Allergy/Immun: Denies: allergic reaction, hives, itching. Eyes: Denies: redness, visual loss/blurred, diplopia. ENT: Denies: ear drainage, hearing loss, nose bleedin g, throat pain. Respiratory: Denies: BLANCO (dyspnea on exertion), pneumonia, SO B. Cardiovascular: Denies: chest pain, orthopnea, palpitations. GI: Denies: abdominal pain, nausea, vomiting. : Denies: dysuria, flank pain. Heme: Denies: adenopathy, bleeding, bruising. Neuro: Denies: headache, syncope. All systems rev neg: except as marked Objective General VS/I O Last Documented: Result Date Time O2 Delivery Nasal cannula 10/17 0740 O2 Flow Rate 2 10/17 0740 B/P 189/80 10/17 0600 B/P Mean 115 10/17 0600 Pulse 70 10/17 0600 Resp 18 10/17 0600 Pulse Ox 100 10/17 0400 FiO2 21 10/17 0355 Temp 36.3 10/16 1930 24 hour I O ending at 0700: 10/17 0700 10/16 1900 Intake Total 240 360 Output Total 1850 600 Balance -1610 -240 Intake, Oral 240 360 Number Voids 4 Output, Urine 1850 600 Patient 79.8 kg Weight Weight Standing scale Measurement Method PATIENT WEIGHT: Weight (lb): 175 Weight (oz): 14.86 Weight (kg): 79.800 Dietitian Nutrition assessment The data set between the solid lines has been im ported from the dietitian's assessment. BMI Calculated: 26.4 Nutrition related diagnosis: Nutrition diagnosis details: Nutrition problem: Increased nutrient needs Nutrition etiology: Acute illness Nutrition signs and symptoms: s/p surgery Nutrition prescription: 1) Continue Cardiac diet as tolerated 2) Continue Glucerna 4x/day Dietitian name: Mary Nascimento RD,PLACIDO Assessment completed: 10/13/22 Physical Exam General appearance: alert, awake, oriented Wound/incision: Location: sternum Site condition: dressing clean dry, dressing i ntact HEENT: anicteric, mucosal membranes moist, pupil s reactive to light Neck: full range of motion, non-tender Cardiovascular: regular rate rhythm, A paced Respiratory: aerating well Abdomen: soft, non-tender Genitourinary: urine Extremities: dry, moves all Musculoskeletal: full range of motion Neuro/CHARGING MANIPULATOR: alert, oriented X 3 Skin: dry, intact Psychiatry: normal affect, normal mood Current Medications Medications: Active Meds + DC'd Last 24 Hrs Furosemide (LASIX 20MG INJ) 20 MG BID 9A 5P IV Vancomycin HCl (VANCOMYCIN HCL) 1,000 MG PREOP O NCALL IV (CKD) Sodium Chloride (SODIUM CHLORIDE 0.9%) 250 ML Sodium Chloride (SODIUM CHLORIDE) 10 ML BID IV Potassium Chloride (POTASSIUM CHLORIDE 20MEQ TAB .ER) 20 MEQ ONCE ONE PO (CAN) Lidocaine HCl (LIDOCAINE 1% 5ML) 5 ML ONCE ONE L OCAL (DC) Sodium Chloride (SODIUM CHLORIDE) [address] N IV Ipratropium [employer] (ATROVENT) 500 MCG RTQ2H PRN PRN INH Cyanocobalamin (Vitamin B-12 500 mcg tab) 500 MC G DAILY PO Ferrous Sulfate (FERROUS SULFATE) 325 MG DAILY P O Bisacodyl (DULCOLAX) 10 MG ONCE PRN RECTAL Tramadol HCl (ULTRAM) 25 MG QID PRN PO Captopril (CAPOTEN (NF)) 6.25 MG Q8HR PO Atorvastatin Calcium (LIPITOR) 40 MG 2100 PO Insulin Human Lispro (HUMALOG) 0 AC HS SUBQ Dextrose/Water (DEXTROSE 10% IN WATER) 125 ML DIR PRN IV (CKD) Dextrose/Water (DEXTROSE 10% IN WATER) 250 ML DIR PRN IV (CKD) Glucagon (GLUCAGON) 1 MG ASDIR PRN IM Mesalamine (DELZICOL 400MG CAP DR.) 800 MG BID P O Polyethylene Glycol (MIRALAX) 17 GM DAILY PO Melatonin (Melatonin) 6 MG BEDTIME PO Docusate Sodium (COLACE) 100 MG BID PO Gabapentin (NEURONTIN) 200 MG BID PO (DC) Sennosides (Senna Lax 8.6 MG TABLET) 17.2 MG BED TIME PO Oxycodone HCl (ROXICODONE) 5 MG Q4H PRN PRN PO Oxycodone HCl (ROXICODONE) 10 MG Q4H PRN PRN PO Aspirin (ASPIRIN) 81 MG DAILY PO Mupirocin (BACTROBAN 2% 22 GM OINTMENT) 1 APPLIC BID NASAL (DC) Acetaminophen (TYLENOL) 650 MG Q4H PRN PRN PO Acetaminophen (TYLENOL) 650 MG Q4H PRN PRN RECTA L Calcium Chloride (CALCIUM CHLORIDE) 1 GM ASDIR P RN IV Epinephrine (ADRENALIN CHLORIDE) 4 MG ASDIR IV Dextrose/Water (DEXTROSE 5% WATER) 246 ML Glucagon (GLUCAGON) 1 MG ASDIR PRN IM Magnesium Sulfate (MAGNESIUM SULFATE 4GM/SWFI 10 0ML) 100 ML ASDIR PRN IV Magnesium Sulfate (MAGNESIUM SULFATE 2GM/SWFI 50 ML) 50 ML ASDIR PRN IV Magnesium Sulfate/Dextrose (MAGNESIUM SULFATE 1G M/D5W 100ML) 100 ML ASDIR PRN IV Nitroglycerin/Dextrose (NITROGLYCERIN 50,000MCG/ D5W 250ML) 250 ML ASDIR IV Norepinephrine Bitartrate (NOREPINEPHRINE 8 MG/N S 250 ML) 250 ML TITRATE IV Ondansetron HCl (ZOFRAN) 4 MG Q6H PRN PRN IV Potassium Chloride (KCL 20MEQ/SWFI 100ML) 100 ML ASDIR PRN IV Sodium Bicarbonate (SODIUM BICARBONATE) 50 MEQ A SDIR PRN IV Sodium Chloride (SODIUM CHLORIDE 0.9%) 1,000 ML .Q20H IV Sodium Chloride (SODIUM CHLORIDE 0.9%) 250 ML Q2 4H IV Results Findings/Data: Laboratory Tests 10/17 10/16 10/16 10/16 10/16 0354 2038 1555 1544 1232 Chemistry Sodium (134 - 147 mEq/L) 130 L 125 L Potassium (3.4 - 5.0 mEq/L) 4.5 4.8 Chloride (100 - 108 mEq/L) 96 L 95 L Carbon Dioxide (21 - 33 mEq/l) 30 27 Anion Gap (0 - 20) 9 8 BUN (7 - 18 mg/dL) 10 10 Creatinine (0.6 - 1.3 mg/dL) 0.6 0.7 Glomerular Filtr Rate (70 - 80) 93.6 H 90.1 H Glucose (70 - 110 mg/dL) 110 124 H POC Glucose (70 - 110 MG/DL) 136 H 128 H 126 H Calcium (8.0 - 10.5 mg/dL) 9.2 9.2 Magnesium (1.80 - 2.40 mg/dL) 1.97 1.88 Laboratory Tests 10/17 0354 Hematology WBC (4.5 - 11.0 x10 3/uL) 13.2 H RBC (3.54 - 5.02 x10 6/uL) 2.83 L Hgb (11.0 - 15.0 g/dL) 8.0 L Hct (33.0 - 45.0 %) 24.2 L MCV (81.0 - 99.0 fL) 85.5 MCH (27.0 - 33.0 pg) 28.3 MCHC (33.0 - 37.0 g/dL) 33.1 RDW (11.5 - 14.5 %) 15.0 H Plt Count (150 - 400 x10 3/uL) 224 MPV (7.0 - 9.0 fL) 10.1 H Neut % (Auto) (56.0 - 77.0 %) 79.3 H Lymph % (Auto) (14.0 - 32.0 %) 9.1 L Nelson % (Auto) (4.8 - 9.0 %) 7.9 Eos % (Auto) (0.3 - 3.7 %) 2.7 Baso % (Auto) (0.0 - 2.0 %) 0.5 Neut # (Auto) (2.0 - 7.6 x10 3/uL) 10.50 H Lymph # (Auto) (1.0 - 3.8 x10 3/uL) 1.21 Nelson # (Auto) (0.1 - 0.8 x10 3/uL) 1.04 H Eos # (Auto) (0.0 - 0.2 x10 3/uL) 0.36 H Baso # (Auto) (0.0 - 0.2 x10 3/uL) 0.06 Abs Immat Gran (auto) (0.00 - 0.03 x10 3/uL) 0. 07 H Add Manual Diff NO Immature Gran % (0.0 - 2.0 %) 0.5 Nucleated RBC % (0 - 0 %) 0.0 Nucleated RBCs # (Man) (0.0 - 0.1 x10 3/uL) 0. 00 Results: labs reviewed, vital signs stable, marcia obando personally rev'd, x-ray personally reviewed, current med profile rev'd Diagnosis, Assessment Plan Hospital course to date: This is a 77-year with a past medical history of new diagnosis of atrial fibrilation, hypertension, hyperlipidemia, carot id stenosis status post right carotid endarterectomy 2020, who presented as an outpatient for evaluation of increased shortness of breath over the past dre ral months. She reports most of her symptoms are wit h exertion. She denies any symptoms at rest. She denies any chest pains. She reports only recently being diagnose d with Atrial fibrillaiton. She denies takign any furhter anticoagulation. She also reports lower extremity weakness with h er shortness of breath. The patient underwent echocardiogram in the outpatient setting. By report this showed EF 60 to 65%, dilated LA, moderate to sev ere MR. 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 Trace T R, ascending aorta measurement 3.7 cm. Patient underwent left heart catheterization gerard wing no significant carotid artery stenosis. Review of the patient's records show patient als o had a carotid Doppler completed on May 2022 showing less than 50% st enosis in the left internal carotid artery CV surgery consulted for evaluation of severe mi tral valve regurgitation for possible mitral valve repair versus replacement Assessment/plan 1. Dyspnea on exertion Likely secondary to severe MR 2.Severe MR 3. Hypertension 4. Dyslipidemia 5. Atrial fibrilation. Patient reports a rather active lifestyle workin g in her yard frequently. However since the past several months her increa sed dyspnea on exertion has caused her decrease her activity. Patient has no lower extremity edema. Patient was seen and examined at [facility]. Mitral valve replacement versus repair was discussed with the patient. Patient is not on any blood thinners Coronary angiogramtoday showed no obstructive co ronary artery disease We will begin work-up for mi tral valve repair repair versus replacement, PVI and ALAA 10/12/22 PROCEDURES: 1. Mitral valve replacement (27 Mitris valve). 2. Pulmonary vein isolation. 3. Amputation of left atrial appendage. 10/13/22 POD 1 POD AAOx3 Respiratory: On 3 L nasal cannula, wean as martin ated, Encourage IS, Deep Breathing, CXR reviewed chest tube drainage 160 mediastina l. Left pleural 90 Chest tubes in today. Reassess after walking Cardiac: Asystole underlying. Atrial paced V sen sed. On nitro drip for hypertension. GI: Continue Bowel regimen, gas? : Gonzales in place UO:500 Continue PT/OT, out of bed walking the unit DVT prophylaxis SCDs in place Labs reveiwed- replace electrolytes as needed Patient seen and examined by Dr. Carey. Plan o f care discussed with multidisciplinary team DC [place], stop beta-milla due to asystole. 10/14/22 POD 2 AAOx3 Respiratory: On 2 L nasal cannula, wean as martin ated, Encourage IS, Deep Breathing, CXR reviewed. DC chest tubes today Chest tubes in today. Reassess after walking Cardiac: Asystole underlying. Atrial paced V sen sed. Hold beta-blockers and amiodarone, EP has seen the patient. Consider milad winn next week if no underlying rhythm GI: Continue Bowel regimen, +BM : Gonzales in place UO:1250 Continue PT/OT, out of bed walking the unit DVT prophylaxis SCDs in place Labs reveiwed- replace electrolytes as needed Patient seen and examined by Dr. Carey. Plan o f care discussed with multidisciplinary team Disposition Home with family support with her howard s DC neck line DC A-LINE 10/17/22 POD 3 Patient in stable condition Labs and CXR reviewed Wean off oxygen as tolerated, on 2l n/c Encourage deep breathing and I-S use Obtain 12 lead EKG, SR this AM, EP following Discontinue central line Tolerating cardiac diet Bowel regimen PT/OT, OOB in chair Continue close monitoring in CVICU Consultants: cardiology, cardiovascular surgery, critical/clubhouse manager at 1304 RPT #:[id number] END OF REPORT 2022-10-17 [facility]ACL 09:18:00-00:00 [facility] Critical Care Progress Note REPORT#:[id number] REPORT STATUS: Signed DATE:10/17/22 TIME: 917 PATIENT: SWEETIE AMAYA UNIT #: [id number] ROOM/BED: [place] [id number] : 47 AGE: 77 SEX: F ATTEND: Bella Hoff MD ADM AUTHOR: Sumanth Gray MD * ALL edits or amendments must be made on the el [employer]/computer document * Subjective Chief complaint: Severe mitral regurgitation HPI: 77-year-old female with past medical history sig nificant for hypertension, dyslipidemia, paroxysmal atrial fibrilla tion, carotid stenosis status post CEA in 2020 was evaluated for shortness of b reath and dyspnea on exertion over the past several months. She denies any symptoms at rest. No angina symptoms were reported. Patient reported lower extremity weakn ess along with shortness of breath. She underwent echocardiogram in the outp atient setting that showed EF of 60 to 65% with a dilated left atrium, moderat e to severe mitral regurgitation. 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 There was possibility of chordae tendonee rupture evidence of trace tricuspid regurgitation with ascending aorta measuring 3.7 cm. Patient underwent left heart catheterization that showed no significant coronary artery disease. Patient underwent CT surgery evaluation for dre re mitral valve regurgitation for possible mitral valve replacement. Alina shannon was brought to CVICU room #2208 oral intubated on the ventilator. She will be fa st-track for extubation. Comments: Out of bed in the chair Tolerating PO, voiding, had bowel movement Paced, underlying rhythm junctional then went bi gemin Complains of shortness of breath and swelling Objective General VS/I O Last Documented: Result Date Time B/P 189/80 10/17 0600 B/P Mean 115 10/17 0600 Pulse 70 10/17 0600 Resp 18 10/17 0600 Pulse Ox 100 10/17 0400 FiO2 21 10/17 0355 O2 Delivery Nasal cannula 10/17 0355 O2 Flow Rate 1 10/17 0355 Temp 97.3 10/16 1930 24 hour I O ending at 0700: 10/17 0700 10/16 1900 Intake Total 240 360 Output Total 1850 600 Balance -1610 -240 Intake, Oral 240 360 Number Voids 4 Output, Urine 1850 600 Patient 79.8 kg Weight Weight Standing scale Measurement Method PATIENT WEIGHT: Weight (lb): 175 Weight (oz): 14.86 Weight (kg): 79.800 Medications: Active Meds + DC'd Last 24 Hrs Furosemide (LASIX 20MG INJ) 20 MG BID 9A 5P IV ( UNV) Vancomycin HCl (VANCOMYCIN HCL) 1,000 MG PREOP O NCALL IV (CKD) Sodium Chloride (SODIUM CHLORIDE 0.9%) 250 ML Sodium Chloride (SODIUM CHLORIDE) 10 ML BID IV Potassium Chloride (POTASSIUM CHLORIDE 20MEQ TAB .ER) 20 MEQ ONCE ONE PO (CAN) Lidocaine HCl (LIDOCAINE 1% 5ML) 5 ML ONCE ONE L OCAL (DC) Sodium Chloride (SODIUM CHLORIDE) [address] N IV Ipratropium [employer] (ATROVENT) 500 MCG RTQ2H PRN PRN INH Cyanocobalamin (Vitamin B-12 500 mcg tab) 500 MC G DAILY PO Ferrous Sulfate (FERROUS SULFATE) 325 MG DAILY P O Bisacodyl (DULCOLAX) 10 MG ONCE PRN RECTAL Tramadol HCl (ULTRAM) 25 MG QID PRN PO Captopril (CAPOTEN (NF)) 6.25 MG Q8HR PO Atorvastatin Calcium (LIPITOR) 40 MG 2100 PO Insulin Human Lispro (HUMALOG) 0 AC HS SUBQ Dextrose/Water (DEXTROSE 10% IN WATER) 125 ML DIR PRN IV (CKD) Dextrose/Water (DEXTROSE 10% IN WATER) 250 ML DIR PRN IV (CKD) Glucagon (GLUCAGON) 1 MG ASDIR PRN IM Mesalamine (DELZICOL 400MG CAP DR.) 800 MG BID P O Polyethylene Glycol (MIRALAX) 17 GM DAILY PO Melatonin (Melatonin) 6 MG BEDTIME PO Docusate Sodium (COLACE) 100 MG BID PO Gabapentin (NEURONTIN) 200 MG BID PO (DC) Sennosides (Senna Lax 8.6 MG TABLET) 17.2 MG BED TIME PO Oxycodone HCl (ROXICODONE) 5 MG Q4H PRN PRN PO Oxycodone HCl (ROXICODONE) 10 MG Q4H PRN PRN PO Aspirin (ASPIRIN) 81 MG DAILY PO Mupirocin (BACTROBAN 2% 22 GM OINTMENT) 1 APPLIC BID NASAL (DC) Acetaminophen (TYLENOL) 650 MG Q4H PRN PRN PO Acetaminophen (TYLENOL) 650 MG Q4H PRN PRN RECTA L Calcium Chloride (CALCIUM CHLORIDE) 1 GM ASDIR P RN IV Epinephrine (ADRENALIN CHLORIDE) 4 MG ASDIR IV Dextrose/Water (DEXTROSE 5% WATER) 246 ML Glucagon (GLUCAGON) 1 MG ASDIR PRN IM Magnesium Sulfate (MAGNESIUM SULFATE 4GM/SWFI 10 0ML) 100 ML ASDIR PRN IV Magnesium Sulfate (MAGNESIUM SULFATE 2GM/SWFI 50 ML) 50 ML ASDIR PRN IV Magnesium Sulfate/Dextrose (MAGNESIUM SULFATE 1G M/D5W 100ML) 100 ML ASDIR PRN IV Nitroglycerin/Dextrose (NITROGLYCERIN 50,000MCG/ D5W 250ML) 250 ML ASDIR IV Norepinephrine Bitartrate (NOREPINEPHRINE 8 MG/N S 250 ML) 250 ML TITRATE IV Ondansetron HCl (ZOFRAN) 4 MG Q6H PRN PRN IV Potassium Chloride (KCL 20MEQ/SWFI 100ML) 100 ML ASDIR PRN IV Sodium Bicarbonate (SODIUM BICARBONATE) 50 MEQ A SDIR PRN IV Sodium Chloride (SODIUM CHLORIDE 0.9%) 1,000 ML .Q20H IV Sodium Chloride (SODIUM CHLORIDE 0.9%) 250 ML Q2 4H IV Results Findings/data: Laboratory Tests 10/17 10/16 10/16 10/16 10/16 0354 2038 1555 1544 1232 Chemistry Sodium (134 - 147 mEq/L) 130 L 125 L Potassium (3.4 - 5.0 mEq/L) 4.5 4.8 Chloride (100 - 108 mEq/L) 96 L 95 L Carbon Dioxide (21 - 33 mEq/l) 30 27 Anion Gap (0 - 20) 9 8 BUN (7 - 18 mg/dL) 10 10 Creatinine (0.6 - 1.3 mg/dL) 0.6 0.7 Glomerular Filtr Rate (70 - 80) 93.6 H 90.1 H Glucose (70 - 110 mg/dL) 110 124 H POC Glucose (70 - 110 MG/DL) 136 H 128 H 126 H Calcium (8.0 - 10.5 mg/dL) 9.2 9.2 Magnesium (1.80 - 2.40 mg/dL) 1.97 1.88 Laboratory Tests 10/17 0354 Hematology WBC (4.5 - 11.0 x10 3/uL) 13.2 H RBC (3.54 - 5.02 x10 6/uL) 2.83 L Hgb (11.0 - 15.0 g/dL) 8.0 L Hct (33.0 - 45.0 %) 24.2 L MCV (81.0 - 99.0 fL) 85.5 MCH (27.0 - 33.0 pg) 28.3 MCHC (33.0 - 37.0 g/dL) 33.1 RDW (11.5 - 14.5 %) 15.0 H Plt Count (150 - 400 x10 3/uL) 224 MPV (7.0 - 9.0 fL) 10.1 H Neut % (Auto) (56.0 - 77.0 %) 79.3 H Lymph % (Auto) (14.0 - 32.0 %) 9.1 L Nelson % (Auto) (4.8 - 9.0 %) 7.9 Eos % (Auto) (0.3 - 3.7 %) 2.7 Baso % (Auto) (0.0 - 2.0 %) 0.5 Neut # (Auto) (2.0 - 7.6 x10 3/uL) 10.50 H Lymph # (Auto) (1.0 - 3.8 x10 3/uL) 1.21 Nelson # (Auto) (0.1 - 0.8 x10 3/uL) 1.04 H Eos # (Auto) (0.0 - 0.2 x10 3/uL) 0.36 H Baso # (Auto) (0.0 - 0.2 x10 3/uL) 0.06 Abs Immat Gran (auto) (0.00 - 0.03 x10 3/uL) 0. 07 H Add Manual Diff NO Immature Gran % (0.0 - 2.0 %) 0.5 Nucleated RBC % (0 - 0 %) 0.0 Nucleated RBCs # (Man) (0.0 - 0.1 x10 3/uL) 0.0 0 Laboratory Tests 10/17/22 0354: [Embedded Image Not Available] 10/16/22 1555: [Embedded Image Not Available] Radiology data Recent Impressions: RADIOLOGY - XR CHEST 1 V 10/17 1423 Report Impression - Status: SIGNED Entered: 10/17/2022 1006 IMPRESSION: Worsened signs of volume overload/pulmonary brady a with trace bilateral pleural effusions. Impression By: [email or web address] - Arnie Hayward D.O. Free Text Obj Notes Free Text Obj Notes: General appearance: Elderly female in no acute d istress, interactive and conversational HEENT: atraumatic, normocephalic, moist mucosal membranes Neck: full range of motion, supple/no meningismu s Cardiovascular: S1-S2 regular rate and rhythm, p aced Respiratory: symmetric expansion, no acute respi ratory distress Abdomen: soft, non-tender, no distention, no gua rding Genitourinary: gonzales with clear urine Extremities: pedal pulses palpable, moves all, n o clubbing, no cyanosis, mild edema Musculoskeletal: normal inspection, no muscle sp asm Neuro/CHARGING MANIPULATOR: Alert and oriented x3, CNII-XII gross ly intact, no motor deficits Skin: dry, intact and clean surgery site Diagnosis, Assessment Plan Free text A P: 77-year-old female with Severe mitral regurgitation status post MVR on Acute pulmonary insufficiency following major ca rdiothoracic surgery Cardiogenic shock Acute blood loss anemia Metabolic acidosis Hypokalemia Assessment and Plan: Patient was received in room #2208 after mitral valve replacement for severe mitral regurgitation. Since she also underwent pulmonary vein isolatio n along with ligation of left atrial appendage. Patient received 27 mm mitral is bioprosthetic valve. She is currently a paced. Normal LV function. No parava lvular leak or regurgitation after replacement. PA pressures are at 39/19 mmH g. She is oral intubated with ET tube of 7.0 secured at 21 cm at the teeth. Pa tient received 1.2 L of crystalloids intraoperativel y along with 300 mL of Amicar, 430 mL of Cell Saver. She had 100 mL of EBL and 530 mL of urine outpu t. She is currently on norepinephrine at 1 and epinephrine at 3 mics. Patient received vancomycin and Ancef for antibiotic prophylaxis. She is currently on insulin at 6 units/h and the latest blood glucose is 180 mg/dL. She was f ound to be hypokalemic with a potassium of 3.4 and is receiving 40 mg of potas sium chloride intravenously. She also received 2 g of magnesium sulfate. Ches t tube output is 25 mL in the left pleural and 15 mL in the mediastinal chest tube. Pupils are 2 mm bilaterally symmetrical reactive to light. She i s currently on assist-control at 20 tidal volume 450 PEEP of 5 and 50% FiO2 and the latest blood gas shows a pH of 7.35, pCO2 of 40 mmHg, pO2 of 109 mmHg and bicarbonate of 22 mmol with base excess at -3.1. Creatinine 0.60 mg/dL, gluc ose 189 mg/dL, potassium 4.0 mmol, ionized calcium 1.37 mg/dL, hemoglobin 11. 1 g/dL with hematocrit of 33% and sodium 139. Currently sinus rhythm 80 A-pace d, blood pressure 129/47 mmHg and pulse ox 100% while on 50% FiO2. PA pressure is 39/19 mmHg. Sweetie Amaya is a 77-year-old female with past medical history significant for hypertension, dyslipidem ia, paroxysmal atrial fibrillation, carotid stenosis status post CEA in 2020 was evaluated for shortn ess of breath and dyspnea on exertion over the past several months. She denie s any symptoms at rest. No angina symptoms were reported. Patient r eported lower extremity weakness along with shortness of breath. She underwent echocard iogram in the outpatient setting that showed EF of 60 to 65% with a dilat ed left atrium, moderate to severe mitral regurgitation. 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 There was possibility of chordae tendonee ruptur e evidence of trace tricuspid regurgitation with ascending aorta measuring 3.7 cm. Patient underwent left heart catheterization that showed no significant coronary artery disease. Patient underwent CT surgery evaluation for dre re mitral valve regurgitation for possible mitral valve replacement. Alina shannon was brought to CVICU room #2208 oral intubated on the ventilator. She will be fa st-track for extubation. Post-op day 0 after mitral valve replacement for severe mitral regurgitation along with pulmonary vein isolation as well as l eft atrial appendecectomy Patient received 27 mm Mitris bioprosthetic valv e Patient is on elective ventilator depend ence for acute pulmonary insufficiency following major cardiothoracic surgery Currently on assist-control at 20 tidal volume 4 50 PEEP of 5 and 50% FiO2 Latest blood gas shows 7.35, pCO2 of 40 mmHg, pO2 of 109 mmHg and bicarbonate of 22 mmol with base excess at -3.1 Mild metabolic acidosis, give 1 amp of sodium bi carb Follow ABG Patient is altered at this time recovering from anesthesia She will be fast-track for extubate Monitor chest tube output Left pleural output is 25 mL and mediastinal out put is 15 mL Hypomagnesemia, patient received 2 g of magnesiu m sulfate Hypokalemia with a potassium of 3.4 mmol and pat ient receiving 40 mg of potassium chloride Glycemic control with insuli n at 6 units/h and latest blood glucose is 180 mg/dL Perioperative antibiotic therapy with vancomycin and Ancef Patient is currently on vaso pressor and inotropic support with norepinephrine at 1 mcg and epinephrine at 3 mcg Follow blood pressure closely Use albumin as needed No paravalvular leak or mitral regurgitation pos toperatively Normal LV function SCDs for DVT prophylaxis 10/13 Appears neuro intact, multimodal pain control Sats well after extubation, wean O2, encourage I -S, ABG and CXR reviewed BP control with nitroglyceri n drip, remains pacer dependent, keep AV pacing and stop beta-blockers and amiodarone per CT surgery Cr stable, good urine output, lactic acidosis cl eared s/p resuscitation Oral diet as tolerated, bowel regimen, trend LFT s, replete hypomagnesemia Leukocytosis with downtrending WBC, given periop antibiotics Hgb trending down, no evidence of active bleed, monitor CTs output Blood glucose control with insulin drip, transit ion to sliding scale insulin Encourage PT/OT and out of bed as tolerated, DVT prophylaxis with SCDs 10/14 Appears neuro intact, multimodal pain control Sats well on nasal cannula, wean O2, encourage I -S, ABG and CXR reviewed BP control controlled, remai ns pacer dependent, keep AV pacing and stay off beta -blockers and amiodarone per CT surgery Cr stable, good urine output Oral diet as tolerated, bowel regimen, trend LFT s, replete electrolytess Hgb trending down, no evidence of active bleed Blood glucose control with sliding scale insulin Encourage PT/OT and out of bed as tolerated, DVT prophylaxis with SCDs Discussed with CV surgery and ICU team Critical care time 34 minutes 10/15 Appears neuro intact, multimodal pain control Sats well on nasal cannula, wean O2, encourage I -S, ABG and CXR reviewed BP control controlled, remai ns pacer dependent, keep AV pacing and stay off beta -blockers and amiodarone per CT surgery Cr stable, good urine output, Lasix 20 mg p.o. d aildinorah, DC Gonzales Oral diet as tolerated, bowel regimen, trend LFT s, replete electrolytess Hgb is stable no evidence of active bleed Blood glucose control with sliding scale insulin Encourage PT/OT and out of bed as tolerated, DVT prophylaxis with SCDs Discussed with CV surgery and ICU team Critical care time 31 minutes 10/16 Appears neuro intact, multimodal pain control Sats well on nasal cannula, wean O2, encourage I -S, CXR reviewed BP control controlled, remai ns pacer dependent, keep AV pacing and stay off beta -blockers and amiodarone per CT surgery. EP on b oard, plan for pacemaker tomorrow Cr stable, good urine output Oral diet as tolerated, bowel regimen, trend LFT s, replete electrolytess Hgb is stable no evidence of active bleed Leukocytosis reactive, no evidence of infection Blood glucose control with sliding scale insulin Encourage PT/OT and out of bed as tolerated, DVT prophylaxis with SCDs Discussed with CV surgery and ICU team Critical care time 33 minutes 10/17 Remains neuro intact, multimodal pain control Sats well on NC, wean O2, aggressive I-S, CXR re viewed BP fairly controlled, on diuresis and Norvasc, r emains paced with junctional rhythm/bigeminy, keep off beta-blockers and amio darone, plan for permanent pacemaker per EP Cr stable, good urine output , monitor while on diuresis, replete hypomagnesemia Tolerating oral diet, had bowel movement , minimize free water for hyponatremia Mild leukocytosis, likely reactive, monitor off antibiotics Hgb appears stable, no evidence of active bleedi ng Blood glucose controlled, not requiring sliding scale insulin Tolerating PT/OT and out of bed, IPR consulted DVT prophylaxis with SCDs Consultants: cardiology, cardiovascular surgery, critical/clubhouse manager Plan discussed with: patient , consultants, nurse, interdisc care team, pharmacy/ pharmacist Critical care time: Minutes: 37 Electronically Signed by Sumanth Gray MD on 09/25 11/16 at 1151 RPT #:[id number] END OF REPORT 2022-10-17 [facility] 08:26:00-00:00 [facility] ([facility] EP Progress Note REPORT#:[id number] REPORT STATUS: Signed DATE:10/17/22 TIME: 825 PATIENT: SWEETIE AMAYA UNIT #: [id number] ROOM/BED: [place] [id number] : 47 AGE: 77 SEX: F ATTEND: Bella Hoff MD ADM AUTHOR: Vinny McgeeP * ALL edits or amendments must be made on the el Internet [employer]/computer document * Objective General VS/I O Last Documented: Result Date Time B/P 189/80 10/17 0600 B/P Mean 115 10/17 0600 Pulse 70 10/17 0600 Resp 18 10/17 0600 Pulse Ox 100 10/17 0400 FiO2 21 10/17 0355 O2 Delivery Nasal cannula 10/17 0355 O2 Flow Rate 1 10/17 0355 Temp 36.3 10/16 1930 24 hour I O ending at 0700: 10/17 0700 10/16 1900 Intake Total 240 360 Output Total 1850 600 Balance -1610 -240 Intake, Oral 240 360 Number Voids 4 Output, Urine 1850 600 Patient 79.8 kg Weight Weight Standing scale Measurement Method PATIENT WEIGHT: Weight (lb): 175 Weight (oz): 14.86 Weight (kg): 79.800 Medications: Active Meds + DC'd Last 24 Hrs Vancomycin HCl (VANCOMYCIN HCL) 1,000 MG PREOP O NCALL IV (CKD) Sodium Chloride (SODIUM CHLORIDE 0.9%) 250 ML Sodium Chloride (SODIUM CHLORIDE) 10 ML BID IV Potassium Chloride (POTASSIUM CHLORIDE 20MEQ TAB .ER) 20 MEQ ONCE ONE PO (CAN) Lidocaine HCl (LIDOCAINE 1% 5ML) 5 ML ONCE ONE L OCAL (DC) Sodium Chloride (SODIUM CHLORIDE) [address] N IV Ipratropium [employer] (ATROVENT) 500 MCG RTQ2H PRN PRN INH Cyanocobalamin (Vitamin B-12 500 mcg tab) 500 MC G DAILY PO Ferrous Sulfate (FERROUS SULFATE) 325 MG DAILY P O Bisacodyl (DULCOLAX) 10 MG ONCE PRN RECTAL Tramadol HCl (ULTRAM) 25 MG QID PRN PO Captopril (CAPOTEN (NF)) 6.25 MG Q8HR PO Atorvastatin Calcium (LIPITOR) 40 MG 2100 PO Insulin Human Lispro (HUMALOG) 0 AC HS SUBQ Dextrose/Water (DEXTROSE 10% IN WATER) 125 ML DIR PRN IV (CKD) Dextrose/Water (DEXTROSE 10% IN WATER) 250 ML DIR PRN IV (CKD) Glucagon (GLUCAGON) 1 MG ASDIR PRN IM Mesalamine (DELZICOL 400MG CAP ) 800 MG BID P O Polyethylene Glycol (MIRALAX) 17 GM DAILY PO Melatonin (Melatonin) 6 MG BEDTIME PO Docusate Sodium (COLACE) 100 MG BID PO Gabapentin (NEURONTIN) 200 MG BID PO Sennosides (Senna Lax 8.6 MG TABLET) 17.2 MG BED TIME PO Oxycodone HCl (ROXICODONE) 5 MG Q4H PRN PRN PO Oxycodone HCl (ROXICODONE) 10 MG Q4H PRN PRN PO Aspirin (ASPIRIN) 81 MG DAILY PO Mupirocin (BACTROBAN 2% 22 GM OINTMENT) 1 APPLIC BID NASAL (DC) Acetaminophen (TYLENOL) 650 MG Q4H PRN PRN PO Acetaminophen (TYLENOL) 650 MG Q4H PRN PRN RECTA L Calcium Chloride (CALCIUM CHLORIDE) 1 GM ASDIR P RN IV Epinephrine (ADRENALIN CHLORIDE) 4 MG ASDIR IV Dextrose/Water (DEXTROSE 5% WATER) 246 ML Glucagon (GLUCAGON) 1 MG ASDIR PRN IM Magnesium Sulfate (MAGNESIUM SULFATE 4GM/SWFI 10 0ML) 100 ML ASDIR PRN IV Magnesium Sulfate (MAGNESIUM SULFATE 2GM/SWFI 50 ML) 50 ML ASDIR PRN IV Magnesium Sulfate/Dextrose (MAGNESIUM SULFATE 1G M/D5W 100ML) 100 ML ASDIR PRN IV Nitroglycerin/Dextrose (NITROGLYCERIN 50,000MCG/ D5W 250ML) 250 ML ASDIR IV Norepinephrine Bitartrate (NOREPINEPHRINE 8 MG/N S 250 ML) 250 ML TITRATE IV Ondansetron HCl (ZOFRAN) 4 MG Q6H PRN PRN IV Potassium Chloride (KCL 20MEQ/SWFI 100ML) 100 ML ASDIR PRN IV Sodium Bicarbonate (SODIUM BICARBONATE) 50 MEQ A SDIR PRN IV Sodium Chloride (SODIUM CHLORIDE 0.9%) 1,000 ML .Q20H IV Sodium Chloride (SODIUM CHLORIDE 0.9%) 250 ML Q2 4H IV Physical Exam General appearance: alert, awake, oriented Cardiovascular: CV assessment: regular rate and rhythm Murmur assessment: heart murmur Respiratory: clear to auscultation, no distress Abdomen: soft, non-tender Extremities: moves all Neuro/CHARGING MANIPULATOR: alert, oriented X 3 Skin: dry Findings/Data: Laboratory Tests: 10/17 10/16 10/16 10/16 0354 2038 1555 1544 Chemistry Sodium (134 - 147 mEq/L) 130 L 125 L Potassium (3.4 - 5.0 mEq/L) 4.5 4.8 Chloride (100 - 108 mEq/L) 96 L 95 L Carbon Dioxide (21 - 33 mEq/l) 30 27 Anion Gap (0 - 20) 9 8 BUN (7 - 18 mg/dL) 10 10 Creatinine (0.6 - 1.3 mg/dL) 0.6 0.7 Glomerular Filtr Rate (70 - 80) 93.6 H 90.1 H Glucose (70 - 110 mg/dL) 110 124 H POC Glucose (70 - 110 MG/DL) 136 H 128 H Calcium (8.0 - 10.5 mg/dL) 9.2 9.2 Magnesium (1.80 - 2.40 mg/dL) 1.97 1.88 Hematology WBC (4.5 - 11.0 x10 3/uL) 13.2 H RBC (3.54 - 5.02 x10 6/uL) 2.83 L Hgb (11.0 - 15.0 g/dL) 8.0 L Hct (33.0 - 45.0 %) 24.2 L MCV (81.0 - 99.0 fL) 85.5 MCH (27.0 - 33.0 pg) 28.3 MCHC (33.0 - 37.0 g/dL) 33.1 RDW (11.5 - 14.5 %) 15.0 H Plt Count (150 - 400 x10 3/uL) 224 MPV (7.0 - 9.0 fL) 10.1 H Neut % (Auto) (56.0 - 77.0 %) 79.3 H Lymph % (Auto) (14.0 - 32.0 %) 9.1 L Nelson % (Auto) (4.8 - 9.0 %) 7.9 Eos % (Auto) (0.3 - 3.7 %) 2.7 Baso % (Auto) (0.0 - 2.0 %) 0.5 Neut # (Auto) (2.0 - 7.6 x10 3/uL) 10.50 H Lymph # (Auto) (1.0 - 3.8 x10 3/uL) 1.21 Nelson # (Auto) (0.1 - 0.8 x10 3/uL) 1.04 H Eos # (Auto) (0.0 - 0.2 x10 3/uL) 0.36 H Baso # (Auto) (0.0 - 0.2 x10 3/uL) 0.06 Abs Immat Gran (auto) (0.00 - 0.03 0.07 H x10 3/uL) Add Manual Diff NO Immature Gran % (0.0 - 2.0 %) 0.5 Nucleated RBC % (0 - 0 %) 0.0 Nucleated RBCs # (Man) (0.0 - 0.1 x10 3/uL) 0.0 0 10/16 1232 Chemistry POC Glucose (70 - 110 MG/DL) 126 H Laboratory Tests 10/17 10/16 0354 1555 Chemistry Magnesium (1.80 - 2.40 mg/dL) 1.97 1.88 Diagnosis, Assessment Plan Free Text A P: 1. SSS, symptomatic bradycardia; CHB -s/p TPM -currently SR, big. PACs, 70s -no AVN-blocking meds -no reversible causes -plan for PPM implantation today, 10/17, per DR.S GARSIA ([place]) 2. 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 Electronically Signed by Vinny Mcgee 10/17/22 at 1218 Electronically Signed by Kody Nash MD on at 1401 RPT #:[id number] END OF REPORT 2022-10-17 [facility] 06:21:00-00:00 [facility] ([facility] Cardiology Progress Note REPORT#:[id number] REPORT STATUS: Signed DATE:10/17/22 TIME: 620 PATIENT: SWEETIE AMAYA UNIT #: [id number] ROOM/BED: [place] [address] : 47 AGE: 77 SEX: F ATTEND: Bella Hoff X MD ADM AUTHOR: Amarilis Valetnin RN CLINICAL APPEALS * ALL edits or amendments must be made on the el Internet [employer]/computer document * Subjective Comments: Feels tired. Objective General VS/I O: 24 hour I O ending at 0700: 10/17 0700 10/16 1900 Intake Total 120 360 Output Total 1750 600 Balance -1630 -240 Intake, Oral 120 360 Number Voids 4 Output, Urine 1750 600 Vital Signs Date Temp Pulse Resp B/P B/P Mean Pulse Ox FiO2 10/16-10/17 36.3 69-83 13-36 100-189/60-81 84-1 16 92-100 21-24 PATIENT WEIGHT: Weight (lb): 182 Weight (oz): 8.68 Weight (kg): 82.800 Medications: Active Meds + DC'd Last 24 Hrs Vancomycin HCl (VANCOMYCIN HCL) 1,000 MG PREOP O NCALL IV (CKD) Sodium Chloride (SODIUM CHLORIDE 0.9%) 250 ML Sodium Chloride (SODIUM CHLORIDE) 10 ML BID IV Potassium Chloride (POTASSIUM CHLORIDE 20MEQ TAB .ER) 20 MEQ ONCE ONE PO (CAN) Lidocaine HCl (LIDOCAINE 1% 5ML) 5 ML ONCE ONE L OCAL (DC) Sodium Chloride (SODIUM CHLORIDE) [address] N IV Ipratropium [employer] (ATROVENT) 500 MCG RTQ2H PRN PRN INH Cyanocobalamin (Vitamin B-12 500 mcg tab) 500 MC G DAILY PO Ferrous Sulfate (FERROUS SULFATE) 325 MG DAILY P O Bisacodyl (DULCOLAX) 10 MG ONCE PRN RECTAL Tramadol HCl (ULTRAM) 25 MG QID PRN PO Captopril (CAPOTEN (NF)) 6.25 MG Q8HR PO Atorvastatin Calcium (LIPITOR) 40 MG 2100 PO Insulin Human Lispro (HUMALOG) 0 AC HS SUBQ Dextrose/Water (DEXTROSE 10% IN WATER) 125 ML A SDIR PRN IV (CKD) Dextrose/Water (DEXTROSE 10% IN WATER) 250 ML DIR PRN IV (CKD) Glucagon (GLUCAGON) 1 MG ASDIR PRN IM Mesalamine (DELZICOL 400MG CAP DR.) 800 MG BID P O Polyethylene Glycol (MIRALAX) 17 GM DAILY PO Melatonin (Melatonin) 6 MG BEDTIME PO Docusate Sodium (COLACE) 100 MG BID PO Gabapentin (NEURONTIN) 200 MG BID PO Sennosides (Senna Lax 8.6 MG TABLET) 17.2 MG BED TIME PO Oxycodone HCl (ROXICODONE) 5 MG Q4H PRN PRN PO Oxycodone HCl (ROXICODONE) 10 MG Q4H PRN PRN PO Aspirin (ASPIRIN) 81 MG DAILY PO Mupirocin (BACTROBAN 2% 22 GM OINTMENT) 1 APPLIC BID NASAL (DC) Acetaminophen (TYLENOL) 650 MG Q4H PRN PRN PO Acetaminophen (TYLENOL) 650 MG Q4H PRN PRN RECTA L Calcium Chloride (CALCIUM CHLORIDE) 1 GM ASDIR P RN IV Epinephrine (ADRENALIN CHLORIDE) 4 MG ASDIR IV Dextrose/Water (DEXTROSE 5% WATER) 246 ML Glucagon (GLUCAGON) 1 MG ASDIR PRN IM Magnesium Sulfate (MAGNESIUM SULFATE 4GM/SWFI 10 0ML) 100 ML ASDIR PRN IV Magnesium Sulfate (MAGNESIUM SULFATE 2GM/SWFI 50 ML) 50 ML ASDIR PRN IV Magnesium Sulfate/Dextrose (MAGNESIUM SULFATE 1G M/D5W 100ML) 100 ML ASDIR PRN IV Nitroglycerin/Dextrose (NITROGLYCERIN 50,000MCG/ D5W 250ML) 250 ML ASDIR IV Norepinephrine Bitartrate (NOREPINEPHRINE 8 MG/N S 250 ML) 250 ML TITRATE IV Ondansetron HCl (ZOFRAN) 4 MG Q6H PRN PRN IV Potassium Chloride (KCL 20MEQ/SWFI 100ML) 100 ML ASDIR PRN IV Sodium Bicarbonate (SODIUM BICARBONATE) 50 MEQ A SDIR PRN IV Sodium Chloride (SODIUM CHLORIDE 0.9%) 1,000 ML .Q20H IV Sodium Chloride (SODIUM CHLORIDE 0.9%) 250 ML Q2 4H IV Pacemaker: external Physical Exam General appearance: alert, awake Neck: non-tender, no JVD Cardiovascular: CV assessment: irregular rhythm Respiratory: decreased breath sounds, on oxygen, no distress Abdomen: soft, non-tender, normal bowel sounds Genitourinary: no flank pain, no urinary cathete r Lower extremity: LE assessment: normal capillary refill, no brady a Neuro/CHARGING MANIPULATOR: alert, oriented X 3, normal speech Skin: dry, intact Psychiatry: normal affect, normal judgment/insig ht, normal mood Results Findings/Data: Laboratory Tests 10/17 2038 1555 1544 1232 Chemistry Sodium (134 - 147 mEq/L) 130 L 125 L Potassium (3.4 - 5.0 mEq/L) 4.5 4.8 Chloride (100 - 108 mEq/L) 96 L 95 L Carbon Dioxide (21 - 33 mEq/l) 30 27 Anion Gap (0 - 20) 9 8 BUN (7 - 18 mg/dL) 10 10 Creatinine (0.6 - 1.3 mg/dL) 0.6 0.7 Glomerular Filtr Rate (70 - 80) 93.6 H 90.1 H Glucose (70 - 110 mg/dL) 110 124 H POC Glucose (70 - 110 MG/DL) 136 H 128 H 126 H Calcium (8.0 - 10.5 mg/dL) 9.2 9.2 Magnesium (1.80 - 2.40 mg/dL) 1.97 1.88 10/17 727 Chemistry POC Glucose (70 - 110 MG/DL) 111 H Laboratory Tests 10/17 353 Hematology WBC (4.5 - 11.0 x10 3/uL) 13.2 H RBC (3.54 - 5.02 x10 6/uL) 2.83 L Hgb (11.0 - 15.0 g/dL) 8.0 L Hct (33.0 - 45.0 %) 24.2 L MCV (81.0 - 99.0 fL) 85.5 MCH (27.0 - 33.0 pg) 28.3 MCHC (33.0 - 37.0 g/dL) 33.1 RDW (11.5 - 14.5 %) 15.0 H Plt Count (150 - 400 x10 3/uL) 224 MPV (7.0 - 9.0 fL) 10.1 H Neut % (Auto) (56.0 - 77.0 %) 79.3 H Lymph % (Auto) (14.0 - 32.0 %) 9.1 L Nelson % (Auto) (4.8 - 9.0 %) 7.9 Eos % (Auto) (0.3 - 3.7 %) 2.7 Baso % (Auto) (0.0 - 2.0 %) 0.5 Neut # (Auto) (2.0 - 7.6 x10 3/uL) 10.50 H Lymph # (Auto) (1.0 - 3.8 x10 3/uL) 1.21 Nelson # (Auto) (0.1 - 0.8 x10 3/uL) 1.04 H Eos # (Auto) (0.0 - 0.2 x10 3/uL) 0.36 H Baso # (Auto) (0.0 - 0.2 x10 3/uL) 0.06 Abs Immat Gran (auto) (0.00 - 0.03 x10 3/uL) 0. 07 H Add Manual Diff NO Immature Gran % (0.0 - 2.0 %) 0.5 Nucleated RBC % (0 - 0 %) 0.0 Nucleated RBCs # (Man) (0.0 - 0.1 x10 3/uL) 0.0 0 Laboratory Tests 10/17 10/16 0354 1555 Chemistry Magnesium (1.80 - 2.40 mg/dL) 1.97 1.88 Radiology data: IMPRESSION: Worsened signs of volume overload/pulmonary brady a with trace bilateral pleural effusions. Impression By: [email or web address] - Arnie Hayward D.O. Results: labs reviewed, vital signs reviewed, [facility] personally rev'd Telemetry Interpretation: sinus with PACs Diagnosis, Assessment Plan Plan discussed with: patient, spouse/partner, nu rse Free Text DxA P Notes Free Text DxA P Notes: 77 YO female with PMHx of hy pertension, hyperlipidemia, carotid artery disease s /p R CEA who has been having progressively worse madeleine shortness of breath. She was found to have severe mitral valve regurgitat ion. 1. Severe mitral valve regurgitation s/p MVR, PV I, and ALAA * post op care per CTS and ICC * continue ASA * repeat echo LVEF preserved * CXR noted, started on IV lasix 20 mg BID by IC C 2. Hypertension * BP high * add amlodipine 5 mg daily 3. Hyperlipidemia * continue statin 4. Complete heart block * ppm placement today MDM by Dr. Bowden. at 1244 RPT #:[id number] END OF REPORT 2022-10-16 [facility] 22:24:00-00:00 [facility] ([facility]) Cardiology Progress Note REPORT#:[id number] REPORT STATUS: Signed DATE:10/16/22 TIME: 2223 PATIENT: SWEETIE AMAYA UNIT #: [id number] ROOM/BED: [place] [address] : 47 AGE: 77 SEX: F ATTEND: Bella Hoff MD ADM AUTHOR: Meredith Sabillon MD * ALL edits or amendments must be made on the [employer] document * Subjective Chief complaint: NONE Objective General VS/I O: 24 hour I O ending at 0700: 10/16 0700 10/15 1900 Intake Total 700 240 Output Total 1250 1000 Balance -550 -760 Intake, Oral 700 240 Number 1 Bowel Movements Number Voids 2 Output, Urine 1250 1000 Patient 82.8 kg Weight Weight Bed scale Measurement Method Vital Signs: Date Time Temp Pulse Resp B/P B/P Pulse O2 O2 F low FiO2 Mean Ox Delivery Rate 10/16 2012 98 Nasal 1 24 cannula 10/16 1901 69 24 167/72 104 95 10/16 1815 70 29 94 10/16 1800 70 18 96 10/16 1700 69 15 93 10/16 1528 95 Room air 10/16 1500 69 23 92 10/16 1400 69 22 93 10/16 1300 70 95 10/16 1200 70 22 90 10/16 1100 70 13 100 10/16 1026 70 18 158/69 99 95 10/16 1000 70 133/58 84 95 10/16 0909 70 140/67 91 10/16 0900 70 10/16 0800 98.0 70 141/63 91 100 10/16 0745 100 High flow 1 nasal cannula 10/16 0730 High flow 2 nasal cannula 10/16 0500 70 23 113/45 65 100 10/16 0400 98.7 10/16 0400 70 20 134/51 74 100 10/16 0300 70 12 133/57 81 100 10/16 0255 99 Nasal 1 24 cannula 10/16 0217 70 13 107/46 65 99 10/16 0200 70 12 131/52 76 100 10/16 0101 70 34 148/59 87 100 10/16 0100 70 35 146/58 85 100 10/16 0035 70 21 139/55 80 100 10/16 0005 98.7 10/16 0000 70 20 140/57 82 99 10/15 2300 70 17 139/56 83 97 PATIENT WEIGHT: Weight (lb): 182 Weight (oz): 8.68 Weight (kg): 82.800 Medications: Active Meds + DC'd Last 24 Hrs Vancomycin HCl (VANCOMYCIN HCL) 1,000 MG PREOP O NCALL IV (CKD) Sodium Chloride (SODIUM CHLORIDE 0.9%) 250 ML Sodium Chloride (SODIUM CHLORIDE) 10 ML BID IV Potassium Chloride (POTASSIUM CHLORIDE 20MEQ TAB .ER) 20 MEQ ONCE ONE PO (CAN) Lidocaine HCl (LIDOCAINE 1% 5ML) 5 ML ONCE ONE L OCAL (DC) Sodium Chloride (SODIUM CHLORIDE) [address] N IV Ipratropium [employer] (ATROVENT) 500 MCG RTQ2H PRN PRN INH Cyanocobalamin (Vitamin B-12 500 mcg tab) 500 MC G DAILY PO Ferrous Sulfate (FERROUS SULFATE) 325 MG DAILY P O Bisacodyl (DULCOLAX) 10 MG ONCE PRN RECTAL Tramadol HCl (ULTRAM) 25 MG QID PRN PO Captopril (CAPOTEN (NF)) 6.25 MG Q8HR PO Atorvastatin Calcium (LIPITOR) 40 MG 2100 PO Insulin Human Lispro (HUMALOG) 0 AC HS SUBQ Dextrose/Water (DEXTROSE 10% IN WATER) 125 ML DIR PRN IV (CKD) Dextrose/Water (DEXTROSE 10% IN WATER) 250 ML DIR PRN IV (CKD) Glucagon (GLUCAGON) 1 MG ASDIR PRN IM Mesalamine (DELZICOL 400MG CAP DR.) 800 MG BID P O Polyethylene Glycol (MIRALAX) 17 GM DAILY PO Melatonin (Melatonin) 6 MG BEDTIME PO Docusate Sodium (COLACE) 100 MG BID PO Gabapentin (NEURONTIN) 200 MG BID PO Sennosides (Senna Lax 8.6 MG TABLET) 17.2 MG BED TIME PO Oxycodone HCl (ROXICODONE) 5 MG Q4H PRN PRN PO Oxycodone HCl (ROXICODONE) 10 MG Q4H PRN PRN PO Aspirin (ASPIRIN) 81 MG DAILY PO Mupirocin (BACTROBAN 2% 22 GM OINTMENT) 1 APPLIC BID NASAL (DC) Acetaminophen (TYLENOL) 650 MG Q4H PRN PRN PO Acetaminophen (TYLENOL) 650 MG Q4H PRN PRN RECTA L Calcium Chloride (CALCIUM CHLORIDE) 1 GM ASDIR PRN IV Epinephrine (ADRENALIN CHLORIDE) 4 MG ASDIR IV Dextrose/Water (DEXTROSE 5% WATER) 246 ML Glucagon (GLUCAGON) 1 MG ASDIR PRN IM Magnesium Sulfate (MAGNESIUM SULFATE 4GM/SWFI 10 0ML) 100 ML ASDIR PRN IV Magnesium Sulfate (MAGNESIUM SULFATE 2GM/SWFI 50 ML) 50 ML ASDIR PRN IV Magnesium Sulfate/Dextrose (MAGNESIUM SULFATE 1G M/D5W 100ML) 100 ML ASDIR PRN IV Nitroglycerin/Dextrose (NITROGLYCERIN 50,000MCG/ D5W 250ML) 250 ML ASDIR IV Norepinephrine Bitartrate (NOREPINEPHRINE 8 MG/N S 250 ML) 250 ML TITRATE IV Ondansetron HCl (ZOFRAN) 4 MG Q6H PRN PRN IV Potassium Chloride (KCL 20MEQ/SWFI 100ML) 100 ML ASDIR PRN IV Sodium Bicarbonate (SODIUM BICARBONATE) 50 MEQ A SDIR PRN IV Sodium Chloride (SODIUM CHLORIDE 0.9%) 1,000 ML .Q20H IV Sodium Chloride (SODIUM CHLORIDE 0.9%) 250 ML Q2 4H IV Physical Exam General appearance: awake ENT: normal nose Neck: non-tender Cardiovascular: CV assessment: regular rate and rhythm Murmur assessment: heart murmur Respiratory: decreased breath sounds, on oxygen, no distress Abdomen: soft, non-tender, normal bowel sounds, no distention Genitourinary: urinary catheter, urine Upper extremity: Right radial site: intact, no bleeding, no drai nage, no ecchymosis, no hematoma Lower extremity: LE assessment: no edema Musculoskeletal: normal inspection Neuro/CHARGING MANIPULATOR: alert, oriented X 3, normal speech Skin: dry Psychiatry: normal affect, normal mood Results Findings/Data: Laboratory Tests 10/16 10/16 10/16 10/16 10/16 2038 1555 1544 1232 0728 Chemistry Sodium (134 - 147 mEq/L) 125 L Potassium (3.4 - 5.0 mEq/L) 4.8 Chloride (100 - 108 mEq/L) 95 L Carbon Dioxide (21 - 33 mEq/l) 27 Anion Gap (0 - 20) 8 BUN (7 - 18 mg/dL) 10 Creatinine (0.6 - 1.3 mg/dL) 0.7 Glomerular Filtr Rate (70 - 80) 90.1 H Glucose (70 - 110 mg/dL) 124 H POC Glucose (70 - 110 MG/DL) 136 H 128 H 126 H 111 H Calcium (8.0 - 10.5 mg/dL) 9.2 Magnesium (1.80 - 2.40 mg/dL) 1.88 10/16 321 Chemistry Sodium (134 - 147 mEq/L) 128 L Potassium (3.4 - 5.0 mEq/L) 5.0 Chloride (100 - 108 mEq/L) 94 L Carbon Dioxide (21 - 33 mEq/l) 30 Anion Gap (0 - 20) 9 BUN (7 - 18 mg/dL) 13 Creatinine (0.6 - 1.3 mg/dL) 0.7 Glomerular Filtr Rate (70 - 80) 90.1 H Glucose (70 - 110 mg/dL) 138 H Calcium (8.0 - 10.5 mg/dL) 9.0 Magnesium (1.80 - 2.40 mg/dL) 2.09 Laboratory Tests 10/16 0322 Hematology WBC (4.5 - 11.0 x10 3/uL) 14.9 H RBC (3.54 - 5.02 x10 6/uL) 2.87 L Hgb (11.0 - 15.0 g/dL) 8.2 L Hct (33.0 - 45.0 %) 24.3 L MCV (81.0 - 99.0 fL) 84.7 MCH (27.0 - 33.0 pg) 28.6 MCHC (33.0 - 37.0 g/dL) 33.7 RDW (11.5 - 14.5 %) 14.7 H Plt Count (150 - 400 x10 3/uL) 170 MPV (7.0 - 9.0 fL) 10.6 H Neut % (Auto) (56.0 - 77.0 %) 81.4 H Lymph % (Auto) (14.0 - 32.0 %) 8.1 L Nelson % (Auto) (4.8 - 9.0 %) 7.3 Eos % (Auto) (0.3 - 3.7 %) 2.2 Baso % (Auto) (0.0 - 2.0 %) 0.3 Neut # (Auto) (2.0 - 7.6 x10 3/uL) 12.12 H Lymph # (Auto) (1.0 - 3.8 x10 3/uL) 1.20 Nelson # (Auto) (0.1 - 0.8 x10 3/uL) 1.09 H Eos # (Auto) (0.0 - 0.2 x10 3/uL) 0.33 H Baso # (Auto) (0.0 - 0.2 x10 3/uL) 0.04 Abs Immat Gran (auto) (0.00 - 0.03 x10 3/uL) 0. 10 H Add Manual Diff NO Immature Gran % (0.0 - 2.0 %) 0.7 Nucleated RBC % (0 - 0 %) 0.0 Nucleated RBCs # (Man) (0.0 - 0.1 x10 3/uL) 0.0 0 Laboratory Tests 10/16 10/16 1555 0322 Chemistry Magnesium (1.80 - 2.40 mg/dL) 1.88 2.09 Radiology data: Recent Impressions: RADIOLOGY - XR CHEST 1 V 10/16 0635 Report Impression - Status: SIGNED Entered: 10/16/2022 0706 IMPRESSION: Stable radiographic appearance of the chest Impression By: [email or web address] - Alejandro Jacobson Results: labs reviewed, vital signs reviewed, vi anjel signs stable Diagnosis, Assessment Plan Consultants: cardiology, cardiovascular surgery, critical/clubhouse manager Free Text DxA P Notes Free Text DxA P Notes: 77 YO female with PMHx of hy pertension, hyperlipidemia, carotid artery disease s /p R CEA who has been having progressively worse madeleine shortness of breath. She was found to have severe mitral valve regurgitat ion. 1. Severe mitral valve regurgitation s/p MVR, PV I, and ALAA * post op care per CTS and ICC * continue ASA * pacer-dependent, junctional dari when off pacer, off amio and metorprolol - may need EP * appear volume overloaded, CXR showed c ongestion, positive 1.2L - received IV lasix 20 mg, may need more. 2. Hypertension * monitor off BP meds 3. Hyperlipidemia * continue statin MDM by Dr. Bowden. 10/15/22: -SEVERE MR -S/P C 10-11-22, NORMAL CORONARIES PROCEDURES: 10-12-22 1. Mitral valve replacement (27 Mitris valve). 2. Pulmonary vein isolation. 3. Amputation of left atrial appendage. -COMPLETE HEART BLOCK, REQUIRING ATRIAL V PACED, -WOULD NEED PACEMAKER, EP CONSULT ECHO: 10/16/22: 1. Left ventricle: The cavity size is normal. Wa ll thickness is normal. Systolic function is normal. The estimated eject ion fraction is 55-60%. Wall motion is normal; there are no regional wall mot ion abnormalities. Left ventricular diastolic function parameters are in determinate. 2. Right ventricle: Systolic pressure is mildly increased. 3. Left atrium: The atrium is dilated. 4. Aortic valve: Thickening, consistent with scl erosis. 5. Mitral valve: There is a normally functioning 27 mm bioprosthesis ([employer]). The prosthesis has a normal range of motion.27 m m Mitris valve. Transvalvular velocity is within the normal range. No rgurgita tion seen. 6. Tricuspid valve: There is mild regurgitation. 7. Pulmonic valve: There is trivial regurgitatio n. -PACE MAKER DEPENDENT -PLAN FOR PERMANANT PACE MAKER TOMORROW AM Electronically Signed by Meredith Sabillon MD on 0 10/16/22 at 2227 RPT #:[id number] END OF REPORT 2022-10-16 [id number] [facility] 21:42:00-00:[address] [place] [address] PATIENT NAME: SWEETIE AMAYA ADMIT DATE: 10/11 ACCOUNT NO: [id number] ROOM NO: [id number] AGE: 77 REPORT TYPE: eECHOCARDIOGRAM REPORT SEX: F ADMITTING PHYSICIAN:Dory Hoff MD ATTENDING PHYSICIAN:Dory Hoff MD *[facility]* [address] [place] [address] Transthoracic Echocardiogram Patient: Sweetie Amaya Study Date: 10/16/2022 BP: 113 / 45 Location: [facility] URN: [id number] : 1945 Age: 77 Height: 68 in / 172.7 cm Gender: F Weight: 182 .6 lb / 83 kg BMI/BSA: 27.8 kg/m 2 / 1.97 m 2 *Ordering Physician: * Berna Mahajan MD *Interpreting Physician: * Meredith Sabillon MD *Dx Board Operator: * Flory Herr Indications: Assess LV function. Study data: Transthoracic echocardiogram. Proced ure: Transthoracic echocardiography was performed. Image quality wa s adequate. Complete 2D, complete spectral Doppler, and color Doppler . Location: Bedside. Patient status: Inpatient. Patient room number: 2208. Study status: BLANCA. Findings Left ventricle: The cavity size is normal. Wall thickness is normal. Systolic function is normal. The estimated eject ion fraction is 55-60%. Wall motion is normal; there are no regional wal l motion abnormalities. Left ventricular diastolic function parameters a re indeterminate. Right ventricle: The cavity size is normal. Syst olic function is PATIENT NAME: SWEETIE AMAYA [id number] normal. TAPSE measurement is estimated at 15 mm. Systolic pressure is mildly increased. RVSP is estimated at 37 mmHg. Left atrium: The atrium is dilated. Right atrium: The atrium is normal in size. Aorta: Aortic root: The aortic root is normal in size. Aortic valve: The leaflets are mildly thickened. Thickening, consistent with sclerosis. There is no evidence of stenosis. There is no regurgitation. Mitral valve: There is a normally functioning 27 mm bioprosthesis ([place] Jennifer). The prosthesis has a normal ra nge of motion. 27 mm Mitris valve. Transvalvular velocity is within t he normal range. No rgurgitation seen. Tricuspid valve: The valve is structurally lara l. There is mild regurgitation. Pulmonic valve: Not well visualized. The valve i s structurally normal. There is trivial regurgitation. Pericardium: There is no pericardial effusion. Pulmonary arteries: The main pulmonary artery is normal-sized. Systemic veins: Inferior vena cava: The vessel is at the upper l imits of normal in size. The respirophasic diameter changes are in the no rmal range (= 50%). Measurements Left ventricle Value Ref LUCILLE, LAX 4.4 cm 3.8 - 5.2 ESD, LAX 3.1 cm 2.2 - 3.5 ESD/bsa, LAX 1.6 cm/m 2 1.3 - 2.1 FS, LAX 30 % 27 - 45 ESD/bsa major 2.3 cm/m 2 --------- ax, A4C LUCILLE/bsa minor 2.3 cm/m 2 --------- ax, A4C LUCILLE major ax, 6.1 cm --------- A2C ESD major ax, 5.7 cm --------- A2C LUCILLE/bsa major 3.1 cm/m 2 --------- ax, A2C ESD/bsa major 2.9 cm/m 2 --------- ax, A2C PW, ED 0.9 cm 0.6 - 0.9 IVS/PW, ED 1.02 --------- EF 58 % 54 - 74 E', lat meg, 6.2 cm/sec >=10.0 TDI E/e', lat meg, 23 --------- TDI E', med meg, 5.0 cm/sec >=7.0 TDI E/e', med meg, 28 --------- TDI PATIENT NAME: SWEETIE AMAYA [id number] E', avg, TDI 5.6 cm/sec --------- E/e', avg, TDI 25 <=14 LVOT Value Ref Diam, S 1.95 cm --------- Area 3.0 cm 2 --------- Peak griselda, S 1.45 m/sec --------- Mean griselda, S 1 m/sec --------- VTI, S 23.9 cm --------- Peak grad, S 8 mm Hg --------- Mean grad, S 4 mm Hg --------- SV 71 ml --------- Qs 4.99 L/min --------- Qs/bsa 2.5 L/(min-m 2) --------- SV/bsa 36 ml/m 2 --------- Ventricular septum Value Ref IVS, ED 0.9 cm 0.6 - 0.9 Right ventricle Value Ref TAPSE, MM 1.5 cm 1.7 - 3.1 RVOT Value Ref Peak v, S 0.77 m/sec --------- Peak grad, S 2 mm Hg --------- Left atrium Value Ref AP dim, ES 3.66 cm 2.70 - 3.80 Vol/bsa, ES, 26 ml/m 2 11 - 40 1-p A4C Vol, ES, 2-p 75 ml --------- Vol/bsa, ES, 38 ml/m 2 16 - 34 2-p Vol/bsa, ES, 26 ml/m 2 16 - 34 A/L AP dim, ES MM 3.2 cm 2.7 - 3.8 LA/Ao root 0.94 --------- ratio, MM Right atrium Value Ref Area, ES 14 cm 2 10 - 18 SI dim, ES, A4C 4.4 cm 3.4 - 5.3 SI dim/bsa, ES, 2.3 cm/m 2 1.9 - 3.1 A4C Vol, ES, A/L 37 ml --------- Vol, ES, 1-p 36 ml --------- A4C Vol/bsa, ES, 18 ml/m 2 9 - 33 1-p A4C Aortic valve Value Ref Leaflet sep 3.3 cm --------- Leaflet sep, MM 1.99 cm --------- PATIENT NAME: SWEETIE AMAYA [id number] Peak v, S 1.85 m/sec --------- Mean v, S 1.37 m/sec --------- VTI, S 32.0 cm --------- Mean grad, S 8.3 mm Hg --------- Peak grad, S 13.7 mm Hg --------- LVOT/AV, VTI 0.75 --------- ratio DONNIE, VTI 2.22 cm 2 --------- LVOT/AV, Vpeak 0.78 --------- ratio DONNIE, Vmax 2.33 cm 2 --------- Mitral valve Value Ref Peak E 1.41 m/sec --------- Peak A 0.37 m/sec --------- Decel time 238 ms --------- PHT 74 ms --------- Peak grad, D 8.0 mm Hg --------- Peak E/A ratio 3.86 --------- MVA, PHT 3.0 cm 2 --------- Pulmonic valve Value Ref CT v, ED 0.7 m/sec --------- Tricuspid valve Value Ref TR peak v 2.94 m/sec <=2.8 Peak RV-RA 34 mm Hg --------- grad, S Aortic root Value Ref Root diam, ED 3.43 cm --------- MM Ascending aorta Value Ref AAo AP diam, S 2.7 cm --------- AAo AP 1.4 cm/m 2 --------- diam/bsa, S Conclusions Summary: 1. Left ventricle: The cavity size is normal. Wa ll thickness is normal. Systolic function is normal. The estimated ejec tion fraction is 55-60%. Wall motion is normal; there are no reg ional wall motion abnormalities. Left ventricular diastolic funct ion parameters are indeterminate. 2. Right ventricle: Systolic pressure is mildly increased. 3. Left atrium: The atrium is dilated. 4. Aortic valve: Thickening, consistent with scl erosis. 5. Mitral valve: There is a normally functioning 27 mm bioprosthesis ([employer] Jennifer). The prosthesis has a normal r noemi of motion. 27 mm Mitris valve. Transvalvular velocity is within the normal range. No PATIENT NAME: SWEETIE AMAYA N [id number] rgurgitation seen. 6. Tricuspid valve: There is mild regurgitation. 7. Pulmonic valve: There is trivial regurgitatio n. Prepared and electronically signed by Meredith Sabillon MD 10/16/2022 21:42 at 2142 PATIENT NAME: SWEETIE AMAYA [id number] 1895-07-23 [facility] 15:02:00-00:00 [facility] Critical Care Progress Note REPORT#:[id number] REPORT STATUS: Signed DATE:10/16/22 TIME: 1502 PATIENT: SWEETIE AMAYA UNIT #: [id number] ROOM/BED: [place] [address] : 47 AGE: 77 SEX: F ATTEND: Bella Hoff MD ADM AUTHOR: David Ulloa MD * ALL edits or amendments must be made on the Onevest/computer document * Subjective Chief complaint: Severe mitral regurgitation HPI: 77-year-old female with past medical history sig nificant for hypertension, dyslipidemia, paroxysmal atrial fibrilla tion, carotid stenosis status post CEA in 2020 was evaluated for shortness of b reath and dyspnea on exertion over the past several months. She denies any symptoms at rest. No angina symptoms were reported. Patient reported lower extremity weakn ess along with shortness of breath. She underwent echocardiogram in the outp atient setting that showed EF of 60 to 65% with a dilated left atrium, moderat e to severe mitral regurgitation. 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 There was possibility of chordae tendonee rupture evidence of trace tricuspid regurgitation with ascending aorta measuring 3.7 cm. Patient underwent left heart catheterization that showed no significant coronary artery disease. Patient underwent CT surgery evaluation for dre re mitral valve regurgitation for possible mitral valve replacement. P atyvette was brought to CVICU room #2208 oral intubated on the ventilator. She will be fa st-track for extubation. Comments: Patient was seen and examine d bedside, has been on room air. Good urine output. Review of Systems Free Text ROS Notes Free Text ROS Notes: 12 point Review of Systems was performed to the extent possible including discussion with the nursing staff and review of vital signs and all data. All systems negative other than pertinent negative/p ositive findings mentioned in the interval history section. Objective General VS/I O Last Documented: Result Date Time Pulse Ox 90 10/16 1200 Pulse 70 10/16 1200 Resp 22 10/16 1200 B/P 158/69 10/16 1026 B/P Mean 99 10/16 1026 Temp 36.7 10/16 0800 O2 Delivery High flow nasal cannula 10/16 0745 O2 Flow Rate 1 10/16 0745 FiO2 24 10/16 0255 24 hour I O ending at 0700: 10/16 0700 10/15 1900 Intake Total 700 240 Output Total 1250 1000 Balance -550 -760 Intake, Oral 700 240 Number 1 Bowel Movements Number Voids 2 Output, Urine 1250 1000 Patient 82.8 kg Weight Weight Bed scale Measurement Method PATIENT WEIGHT: Weight (lb): 182 Weight (oz): 8.68 Weight (kg): 82.800 Medications: Active Meds + DC'd Last 24 Hrs Vancomycin HCl (VANCOMYCIN HCL) 1,000 MG PREOP O NCALL IV (CKD) Sodium Chloride (SODIUM CHLORIDE 0.9%) 250 ML Sodium Chloride (SODIUM CHLORIDE) 10 ML BID IV Lidocaine HCl (LIDOCAINE 1% 5ML) 5 ML ONCE ONE L OCAL (DC) Sodium Chloride (SODIUM CHLORIDE) [address] N IV Magnesium Citrate (MAGNESIUM CITRATE) 150 ML ONC E ONE PO (DC) Ipratropium [employer] (ATROVENT) 500 MCG RTQ2H PRN PRN INH Cyanocobalamin (Vitamin B-12 500 mcg tab) 500 MC G DAILY PO Ferrous Sulfate (FERROUS SULFATE) 325 MG DAILY P O Bisacodyl (DULCOLAX) 10 MG ONCE PRN RECTAL Tramadol HCl (ULTRAM) 25 MG QID PRN PO Captopril (CAPOTEN (NF)) 6.25 MG Q8HR PO Atorvastatin Calcium (LIPITOR) 40 MG 2100 PO Insulin Human Lispro (HUMALOG) 0 AC HS SUBQ Dextrose/Water (DEXTROSE 10% IN WATER) 125 ML DIR PRN IV (CKD) Dextrose/Water (DEXTROSE 10% IN WATER) 250 ML DIR PRN IV (CKD) Glucagon (GLUCAGON) 1 MG ASDIR PRN IM Mesalamine (DELZICOL 400MG CAP DR.) 800 MG BID P O Polyethylene Glycol (MIRALAX) 17 GM DAILY PO Melatonin (Melatonin) 6 MG BEDTIME PO Docusate Sodium (COLACE) 100 MG BID PO Gabapentin (NEURONTIN) 200 MG BID PO Sennosides (Senna Lax 8.6 MG TABLET) 17.2 MG BED TIME PO Oxycodone HCl (ROXICODONE) 5 MG Q4H PRN PRN PO Oxycodone HCl (ROXICODONE) 10 MG Q4H PRN PRN PO Aspirin (ASPIRIN) 81 MG DAILY PO Mupirocin (BACTROBAN 2% 22 GM OINTMENT) 1 APPLIC BID NASAL Acetaminophen (TYLENOL) 650 MG Q4H PRN PRN PO Acetaminophen (TYLENOL) 650 MG Q4H PRN PRN RECTA L Calcium Chloride (CALCIUM CHLORIDE) 1 GM ASDIR P RN IV Epinephrine (ADRENALIN CHLORIDE) 4 MG ASDIR IV Dextrose/Water (DEXTROSE 5% WATER) 246 ML Glucagon (GLUCAGON) 1 MG ASDIR PRN IM Magnesium Sulfate (MAGNESIUM SULFATE 4GM/SWFI 10 0ML) 100 ML ASDIR PRN IV Magnesium Sulfate (MAGNESIUM SULFATE 2GM/SWFI 50 ML) 50 ML ASDIR PRN IV Magnesium Sulfate/Dextrose (MAGNESIUM SULFATE 1G M/D5W 100ML) 100 ML ASDIR PRN IV Nitroglycerin/Dextrose (NITROGLYCERIN 50,000MCG/ D5W 250ML) 250 ML ASDIR IV Norepinephrine Bitartrate (NOREPINEPHRINE 8 MG/N S 250 ML) 250 ML TITRATE IV Ondansetron HCl (ZOFRAN) 4 MG Q6H PRN PRN IV Potassium Chloride (KCL 20MEQ/SWFI 100ML) 100 ML ASDIR PRN IV Sodium Bicarbonate (SODIUM BICARBONATE) 50 MEQ A SDIR PRN IV Sodium Chloride (SODIUM CHLORIDE 0.9%) 1,000 ML .Q20H IV Sodium Chloride (SODIUM CHLORIDE 0.9%) 250 ML Q2 4H IV Results Findings/data: Laboratory Tests 10/16 10/16 10/16 10/15 1232 0728 0322 2035 Chemistry Sodium (134 - 147 mEq/L) 128 L Potassium (3.4 - 5.0 mEq/L) 5.0 Chloride (100 - 108 mEq/L) 94 L Carbon Dioxide (21 - 33 mEq/l) 30 Anion Gap (0 - 20) 9 BUN (7 - 18 mg/dL) 13 Creatinine (0.6 - 1.3 mg/dL) 0.7 Glomerular Filtr Rate (70 - 80) 90.1 H Glucose (70 - 110 mg/dL) 138 H POC Glucose (70 - 110 MG/DL) 126 H 111 H 149 H Calcium (8.0 - 10.5 mg/dL) 9.0 Magnesium (1.80 - 2.40 mg/dL) 2.09 Laboratory Tests 10/16 0322 Hematology WBC (4.5 - 11.0 x10 3/uL) 14.9 H RBC (3.54 - 5.02 x10 6/uL) 2.87 L Hgb (11.0 - 15.0 g/dL) 8.2 L Hct (33.0 - 45.0 %) 24.3 L MCV (81.0 - 99.0 fL) 84.7 MCH (27.0 - 33.0 pg) 28.6 MCHC (33.0 - 37.0 g/dL) 33.7 RDW (11.5 - 14.5 %) 14.7 H Plt Count (150 - 400 x10 3/uL) 170 MPV (7.0 - 9.0 fL) 10.6 H Neut % (Auto) (56.0 - 77.0 %) 81.4 H Lymph % (Auto) (14.0 - 32.0 %) 8.1 L Nelson % (Auto) (4.8 - 9.0 %) 7.3 Eos % (Auto) (0.3 - 3.7 %) 2.2 Baso % (Auto) (0.0 - 2.0 %) 0.3 Neut # (Auto) (2.0 - 7.6 x10 3/uL) 12.12 H Lymph # (Auto) (1.0 - 3.8 x10 3/uL) 1.20 Nelson # (Auto) (0.1 - 0.8 x10 3/uL) 1.09 H Eos # (Auto) (0.0 - 0.2 x10 3/uL) 0.33 H Baso # (Auto) (0.0 - 0.2 x10 3/uL) 0.04 Abs Immat Gran (auto) (0.00 - 0.03 x10 3/uL) 0. 10 H Add Manual Diff NO Immature Gran % (0.0 - 2.0 %) 0.7 Nucleated RBC % (0 - 0 %) 0.0 Nucleated RBCs # (Man) (0.0 - 0.1 x10 3/uL) 0.0 0 Laboratory Tests 10/16/22 0322: [Embedded Image Not Available] Radiology data Recent Impressions: ULTRASOUND - DUP VEIN UNI/LTD 10/15 2025 Report Impression - Status: SIGNED Entered: 10/15/20222057 IMPRESSION: No deep venous thrombosis is seen in the visuali zed left upper extremity. Impression By: [email or web address] - Maurilio Bryant M.D. RADIOLOGY - XR CHEST 1 V 10/16 0635 Report Impression - Status: SIGNED Entered: 10/16/2022 0706 IMPRESSION: Stable radiographic appearance of the chest Impression By: [email or web address] - Alejandro Jacobson Free Text Obj Notes Free Text Obj Notes: General appearance: Elderly female in no acute d istress, interactive and conversational HEENT: atraumatic, normocephalic, dry mucosal me mbranes Neck: full range of motion, supple/no meningismu s Cardiovascular: S1-S2 regular rate and rhythm, p acer dependent Respiratory: symmetric expansion, no acute respi ratory distress Abdomen: soft, non-tender, no distention, no gua rding Genitourinary: gonzales with clear urine Extremities: pedal pulses palpable, moves all, n o clubbing, no cyanosis, no edema Musculoskeletal: normal inspection, no muscle sp asm Neuro/CHARGING MANIPULATOR: Alert and oriented x3, CNII-XII gross ly intact, no motor deficits Skin: dry, intact and clean surgery dressing Diagnosis, Assessment Plan Free text A P: 77-year-old female with Severe mitral regurgitation status post MVR on Acute pulmonary insufficiency following major ca rdiothoracic surgery Cardiogenic shock Acute blood loss anemia Metabolic acidosis Hypokalemia Assessment and Plan: Patient was received in room #2208 after mitral valve replacement for severe mitral regurgitation. Since she also underwent pulmonary vein isolatio n along with ligation of left atrial appendage. Patient received 27 mm mitral is bioprosthetic valve. She is currently a paced. Normal LV function. No parava lvular leak or regurgitation after replacement. PA pressures are at 39/19 mmH g. She is oral intubated with ET tube of 7.0 secured at 21 cm at the teeth. Pa tient received 1.2 L of crystalloids intraoperativel y along with 300 mL of Amicar, 430 mL of Cell Saver. She had 100 mL of EBL and 530 mL of urine outpu t. She is currently on norepinephrine at 1 and epinephrine at 3 mics. Patient received vancomycin and Ancef for antibiotic prophylaxis. She is currently on insulin at 6 units/h and the latest blood glucose is 180 mg/dL. She was f ound to be hypokalemic with a potassium of 3.4 and is receiving 40 mg of potas sium chloride intravenously. She also received 2 g of magnesium sulfate. Ches t tube output is 25 mL in the left pleural and 15 mL in the mediastinal chest tube. Pupils are 2 mm bilaterally symmetrical reactive to light. She i s currently on assist-control at 20 tidal volume 450 PEEP of 5 and 50% FiO2 and the latest blood gas shows a pH of 7.35, pCO2 of 40 mmHg, pO2 of 109 mmHg and bicarbonate of 22 mmol with base excess at -3.1. Creatinine 0.60 mg/dL, gluc ose 189 mg/dL, potassium 4.0 mmol, ionized calcium 1.37 mg/dL, hemoglobin 11. 1 g/dL with hematocrit of 33% and sodium 139. Currently sinus rhythm 80 A-pace d, blood pressure 129/47 mmHg and pulse ox 100% while on 50% FiO2. PA pressure is 39/19 mmHg. Sweetie Amaya is a 77-year-old female with past medical history significant for hypertension, dyslipidem ia, paroxysmal atrial fibrillation, carotid stenosis status post CEA in 2020 was evaluated for shortn ess of breath and dyspnea on exertion over the past several months. She denie s any symptoms at rest. No angina symptoms were reported. Patient r eported lower extremity weakness along with shortness of breath. She underwent echocard iogram in the outpatient setting that showed EF of 60 to 65% with a dilat ed left atrium, moderate to severe mitral regurgitation. 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 There was possibility of chordae tendonee ruptur e evidence of trace tricuspid regurgitation with ascending aorta measuring 3.7 cm. Patient underwent left heart catheterization that showed no significant coronary artery disease. Patient underwent CT surgery evaluation for dre re mitral valve regurgitation for possible mitral valve replacement. Alina shannon was brought to CVICU room #2208 oral intubated on the ventilator. She will be fa st-track for extubation. Post-op day 0 after mitral valve replacement for severe mitral regurgitation along with pulmonary vein isolation as well as l eft atrial appendecectomy Patient received 27 mm Mitris bioprosthetic valv e Patient is on elective ventilator depend ence for acute pulmonary insufficiency following major cardiothoracic surgery Currently on assist-control at 20 tidal volume 4 50 PEEP of 5 and 50% FiO2 Latest blood gas shows 7.35, pCO2 of 40 mmHg, pO2 of 109 mmHg and bicarbonate of 22 mmol with base excess at -3.1 Mild metabolic acidosis, give 1 amp of sodium bi carb Follow ABG Patient is altered at this time recovering from anesthesia She will be fast-track for extubate Monitor chest tube output Left pleural output is 25 mL and mediastinal out put is 15 mL Hypomagnesemia, patient received 2 g of magnesiu m sulfate Hypokalemia with a potassium of 3.4 mmol and pat ient receiving 40 mg of potassium chloride Glycemic control with insuli n at 6 units/h and latest blood glucose is 180 mg/dL Perioperative antibiotic therapy with vancomycin and Ancef Patient is currently on vaso pressor and inotropic support with norepinephrine at 1 mcg and epinephrine at 3 mcg Follow blood pressure closely Use albumin as needed No paravalvular leak or mitral regurgitation pos toperatively Normal LV function SCDs for DVT prophylaxis 10/13 Appears neuro intact, multimodal pain control Sats well after extubation, wean O2, encourage I -S, ABG and CXR reviewed BP control with nitroglyceri n drip, remains pacer dependent, keep AV pacing and stop beta-blockers and amiodarone per CT surgery Cr stable, good urine output, lactic acidosis cl eared s/p resuscitation Oral diet as tolerated, bowel regimen, trend LFT s, replete hypomagnesemia Leukocytosis with downtrending WBC, given periop antibiotics Hgb trending down, no evidence of active bleed, monitor CTs output Blood glucose control with insulin drip, transit ion to sliding scale insulin Encourage PT/OT and out of bed as tolerated, DVT prophylaxis with SCDs 10/14 Appears neuro intact, multimodal pain control Sats well on nasal cannula, wean O2, encourage I -S, ABG and CXR reviewed BP control controlled, remai ns pacer dependent, keep AV pacing and stay off beta -blockers and amiodarone per CT surgery Cr stable, good urine output Oral diet as tolerated, bowel regimen, trend LFT s, replete electrolytess Hgb trending down, no evidence of active bleed Blood glucose control with sliding scale insulin Encourage PT/OT and out of bed as tolerated, DVT prophylaxis with SCDs Discussed with CV surgery and ICU team Critical care time 34 minutes 10/15 Appears neuro intact, multimodal pain control Sats well on nasal cannula, wean O2, encourage I -S, ABG and CXR reviewed BP control controlled, remai ns pacer dependent, keep AV pacing and stay off beta -blockers and amiodarone per CT surgery Cr stable, good urine output, Lasix 20 mg p.o. d MARCOS hendricks Gonzales Oral diet as tolerated, bowel regimen, trend LFT s, replete electrolytess Hgb is stable no evidence of active bleed Blood glucose control with sliding scale insulin Encourage PT/OT and out of bed as tolerated, DVT prophylaxis with SCDs Discussed with CV surgery and ICU team Critical care time 31 minutes 10/15 Appears neuro intact, multimodal pain control Sats well on nasal cannula, wean O2, encourage I -S, CXR reviewed BP control controlled, remai ns pacer dependent, keep AV pacing and stay off beta -blockers and amiodarone per CT surgery. EP on oa, plan for pacemaker tomorrow Cr stable, good urine output Oral diet as tolerated, bowel regimen, trend LFT s, replete electrolytess Hgb is stable no evidence of active bleed Leukocytosis reactive, no evidence of infection Blood glucose control with sliding scale insulin Encourage PT/OT and out of bed as tolerated, DVT prophylaxis with SCDs Discussed with CV surgery and ICU team Critical care time 33 minutes Electronically Signed by David Ulloa MD on at 1909 RPT #:[id number] END OF REPORT 2022-10-16 [id number] [facility] 13:57:00-00:[address] [place] [address] PATIENT NAME: SWEETIE AMAYA ADMIT DATE: 10/11 ACCOUNT NO: [id number] ROOM NO: [id number] AGE: 77 REPORT TYPE: PROGRESS NOTE SEX: F ADMITTING PHYSICIAN:Dory Hoff MD ATTENDING PHYSICIAN:Dory Hoff MD DATE: 10/15/2022 FOLLOWUP ICU NOTE REASON FOR FOLLOWUP: Sick sinus syndrome, bradyc ardia. HISTORY OF PRESENT ILLNESS: Mrs. Amaya is a 77-year-old lady with new diagnosis of atrial fibrillation, hypertension, hyperlipidemia, carotid stenosis, status post right carotid endarterectomy in 2020, who presented as an outpatient for evaluation of increased shortness of breath over the past several months. Her symptoms were mostly on exertion and she was recently diagnosed with atrial fibrillation. The patient underwent an echocardiogram in the outpatient setting, which sh owed EF of 60% to 65%, dilated left atrium, moderate to severe MR, myxomatous mitral valve and possib le chordae tendineae rupture. She subsequently underwent left heart catheteriz ation, which showed no significant coronary artery disease. The patient had mitral valve replacement, pulmonary vein isolation and amputation and liga tion of the left atrial appendage by Dr. Carey. Postoperatively, the p atient became pacemaker dependent and had junctional bradycardia off pac er. She is currently off amiodarone and metoprolol. A consult was request ed for possible permanent pacemaker. I evaluated the patient at be dside and turned the pacer all the way down to 30. The patient has a sinus bradycardia in 40s; however, the patient immediately became symptomatic. PHYSICAL EXAMINATION: GENERAL: Pleasant lady in no acute distress, co mfortable in bed. VITAL SIGNS: Heart rate 70, blood pressure 133/5 8, pulse ox 100%, respiratory rate 14. HEENT: Unremarkable. NECK: Supple, no jugular venous distention. CHEST: Clear to auscultation. HEART: Regular rate and rhythm with normal first and second heart sound. ABDOMEN: Benign. EXTREMITIES: Examination of extremities did not show any clubbing, cyanosis or edema. IMPRESSION: 1. Sick sinus syndrome. 2. Paroxysmal atrial fibrillation. 3. Status post mitral valve replacement. 4. Status post surgical pulmonary vein isolation and left atrial appendage ligation. PATIENT NAME: SWEETEI AMAYA [id number] RECOMMENDATION: Considering persistent symptomat ic bradycardia, need for anticoagulation therapy and absence of any rever sible cause, the patient has class [address] indication [address] Nash would performed dual chamber permanent pacemaker implant tomorrow. Th e case was discussed with the patient. The risks and benefits were discussed w ith the patient in great details. Dictated By: Keyshawn Ku MD Date Dictated: 10/16/2022 13:57:07 Date Transcribed: 10/16/2022 14:34:28 HORACIO/DANIELLE Receipt ID: [id number] Authenticated by Keyshawn Ku MD On 10/25/2022 1 2:29:01 PM Electronically Signed by Keyshawn Ku MD on 04/18 at 1229 PATIENT NAME: SWEETIE AMAYA [id number] [facility] 13:11:00-00:00 [facility] ([facility] Cardiothoracic Surgery Prog REPORT#:[id number] REPORT STATUS: Signed DATE:10/16/22 TIME: 1311 PATIENT: SWEETIE AMAYA UNIT #: [id number] ROOM/BED: [place] [address] : 47 AGE: 77 SEX: F ATTEND: Bella Hoff MD ADM AUTHOR: Harriet Griffin Physic * ALL edits or amendments must be made on the Onevest/computer document * General Post-op: day 3 Status post: 10/12/22 PROCEDURES: 1. Mitral valve replacement (27 Mitris valve). 2. Pulmonary vein isolation. 3. Amputation of left atrial appendage. Subjective Chief complaint: Resting comfortable Denies complaints Status post MVR/PVI/a YUE Review of Systems All systems rev neg: except as marked Objective General VS/I O Last Documented: Result Date Time Pulse Ox 90 10/16 1200 Pulse 70 10/16 1200 Resp 22 10/16 1200 B/P 158/69 10/16 1026 B/P Mean 99 10/16 1026 Temp 98.0 10/16 0800 O2 Delivery High flow nasal cannula 10/16 0745 O2 Flow Rate 1 10/16 0745 FiO2 24 10/16 0255 24 hour I O ending at 0700: 10/16 0700 10/15 1900 Intake Total 700 240 Output Total 1250 1000 Balance -550 -760 Intake, Oral 700 240 Number 1 Bowel Movements Number Voids 2 Output, Urine 1250 1000 Patient 82.8 kg Weight Weight Bed scale Measurement Method PATIENT WEIGHT: Weight (lb): 182 Weight (oz): 8.68 Weight (kg): 82.800 Physical Exam General appearance: alert, awake, oriented Cardiovascular: regular rate rhythm, A paced Respiratory: aerating well Abdomen: soft, non-tender Genitourinary: gonzales Musculoskeletal: full range of motion Neuro/CHARGING MANIPULATOR: alert, oriented X 3 Skin: dry, intact Diagnosis, Assessment Plan Hospital course to date: This is a 77-year with a past medical history of new diagnosis of atrial fibrilation, hypertension, hyperlipidemia, carot id stenosis status post right carotid endarterectomy 2020, who presented as an outpatient for evaluation of increased shortness of breath over the past dre ral months. She reports most of her symptoms are wit h exertion. She denies any symptoms at rest. She denies any chest pains. She reports only recently being diagnose d with Atrial fibrillaiton. She denies takign any furhter anticoagulation. She also reports lower extremity weakness with h er shortness of breath. The patient underwent echocardiogram in the outpatient setting. By report this showed EF 60 to 65%, dilated LA, moderate to sev ere MR. 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 Trace T R, ascending aorta measurement 3.7 cm. Patient underwent left heart catheterization gerard wing no significant carotid artery stenosis. Review of the patient's records show patient jailene amato had a carotid Doppler completed on May 2022 showing less than 50% st enosis in the left internal carotid artery CV surgery consulted for evaluation of severe mi tral valve regurgitation for possible mitral valve repair versus replacement Assessment/plan 1. Dyspnea on exertion Likely secondary to severe MR 2.Severe MR 3. Hypertension 4. Dyslipidemia 5. Atrial fibrilation. Patient reports a rather active lifestyle workin g in her yard frequently. However since the past several months her increa sed dyspnea on exertion has caused her decrease her activity. Patient has no lower extremity edema. Patient was seen and examined at [facility]. Mitral valve replacement versus repair was discussed with the patient. Patient is not on any blood thinners Coronary angiogramtoday showed no obstructive co ronary artery disease We will begin work-up for mi tral valve repair repair versus replacement, PVI and ALAA 10/12/22 PROCEDURES: 1. Mitral valve replacement (27 Mitris valve). 2. Pulmonary vein isolation. 3. Amputation of left atrial appendage. 10/13/22 POD 1 POD AAOx3 Respiratory: On 3 L nasal cannula, wean as martin ated, Encourage IS, Deep Breathing, CXR reviewed chest tube drainage 160 mediastina l. Left pleural 90 Chest tubes in today. Reassess after walking Cardiac: Asystole underlying. Atrial paced V sen sed. On nitro drip for hypertension. GI: Continue Bowel regimen, gas? : Gonzales in place UO:500 Continue PT/OT, out of bed walking the unit DVT prophylaxis SCDs in place Labs reveiwed- replace electrolytes as needed Patient seen and examined by Dr. Carey. Plan o f care discussed with multidisciplinary team MARCOS Gilliland, stop beta-milla due to asystole. 10/14/22 POD 2 AAOx3 Respiratory: On 2 L nasal cannula, wean as martin ated, Encourage IS, Deep Breathing, CXR reviewed. DC chest tubes today Chest tubes in today. Reassess after walking Cardiac: Asystole underlying. Atrial paced V sen sed. Hold beta-blockers and amiodarone, EP has seen the patient. Consider milad winn next week if no underlying rhythm GI: Continue Bowel regimen, +BM : Gonzales in place UO:1250 Continue PT/OT, out of bed walking the unit DVT prophylaxis SCDs in place Labs reveiwed- replace electrolytes as needed Patient seen and examined by Dr. Carey. Plan o f care discussed with multidisciplinary team Disposition Home with family support with her howard s DC neck line DC A-LINE Consultants: cardiology, cardiovascular surgery, critical/clubhouse manager at 1314 at 1304 RPT #:[id number] END OF REPORT 2022-10-16 [facility] 10:13:00-00:00 [facility] Hospitalist Progress Note REPORT#:[id number] REPORT STATUS: Signed DATE:10/16/22 TIME: 1013 PATIENT: SWEETIE AMAYA UNIT #: [id number] ROOM/BED: 3361-1 : 47 AGE: 77 SEX: F ATTEND: Bella Hoff MD ADM AUTHOR: Ciera Hodgson APRN * ALL edits or amendments must be made on the el [employer]/computer document * Subjective Chief complaint: up to commode, small BM early this morning, +fla tus now 1. Mitral valve replacement 2. Pulmonary vein isolation. 3. Amputation of left atrial appendage. HPI: 77 YO female with PMHx of hy pertension, hyperlipidemia, carotid artery disease s /p R CEA was admitted to the hospital for mitral valve surgery . she has been progressively worsening of s ob . she was found severe mitral valve regurgitation . LHC was done . it show no blockage . she had mitral valve surgery today . she was seen in CVICU post procedure . she was intub ated on the vent support . 2 drainage tube are in place . history is obtained from staff and review the chart . Review of Systems Constitutional: Reports: fatigue, generalized weakness. Denies: chills, fever. Skin: Denies: itching, rash. Respiratory: Denies: SOB, wheezing. Cardiovascular: Denies: chest pain, palpitations. GI: Denies: abdominal pain, constipation. : Denies: dysuria, frequency. All systems rev neg: except as noted Objective General VS/I O: Vital Signs: Date Time Temp Pulse Resp B/P B/P Pulse O2 O2 F low FiO2 Mean Ox Delivery Rate 10/16 1200 70 22 90 10/16 1100 70 13 100 10/16 1026 70 18 158/69 99 95 10/16 1000 70 133/58 84 95 10/16 0909 70 140/67 91 10/16 0900 70 10/16 0800 36.7 70 141/63 91 100 10/16 0745 100 High flow 1 nasal cannula 10/16 0730 High flow 2 nasal cannula 10/16 0500 70 23 113/45 65 100 10/16 0400 37.1 10/16 0400 70 20 134/51 74 100 10/16 0300 70 12 133/57 81 100 10/16 0255 99 Nasal 1 24 cannula 10/16 0217 70 13 107/46 65 99 10/16 0200 70 12 131/52 76 100 10/16 0101 70 34 148/59 87 100 10/16 0100 70 35 146/58 85 100 10/16 0035 70 21 139/55 80 100 10/16 0005 37.1 10/16 0000 70 20 140/57 82 99 10/15 2300 70 17 139/56 83 97 10/15 2204 70 18 143/61 85 97 10/15 2200 70 31 152/60 88 99 10/15 2100 70 20 164/56 85 98 10/16 1999 37.2 10/16 1999 Nasal 1 cannula 10/16 1999 70 16 161/55 82 100 10/15 1909 99 Nasal 1 24 cannula 10/15 1900 70 12 145/53 77 99 10/15 1815 70 16 155/53 80 99 10/15 1814 70 21 151/51 76 99 10/15 1800 126/58 84 10/15 1800 70 22 154/49 72 97 10/15 1700 147/65 94 10/15 1700 70 15 167/57 86 99 10/15 1631 70 18 109/99 103 98 10/15 1608 128/59 85 10/15 1608 70 20 99 10/15 1600 70 25 100 10/15 1500 70 16 103/96 100 98 24 hour I O ending at 0700: 10/16 0700 10/15 1900 Intake Total 700 240 Output Total 1250 1000 Balance -550 -760 Intake, Oral 700 240 Number 1 Bowel Movements Number Voids 2 Output, Urine 1250 1000 Patient 82.8 kg Weight Weight Bed scale Measurement Method PATIENT WEIGHT: Weight (lb): 182 Weight (oz): 8.68 Weight (kg): 82.800 Medications: Active Meds + DC'd Last 24 Hrs Magnesium Citrate (MAGNESIUM CITRATE) 150 ML ONC E ONE PO (DC) Ipratropium [employer] (ATROVENT) 500 MCG RTQ2H PRN PRN INH Cyanocobalamin (Vitamin B-12 500 mcg tab) 500 MC G DAILY PO Ferrous Sulfate (FERROUS SULFATE) 325 MG DAILY P O Bisacodyl (DULCOLAX) 10 MG ONCE PRN RECTAL Tramadol HCl (ULTRAM) 25 MG QID PRN PO Captopril (CAPOTEN (NF)) 6.25 MG Q8HR PO Atorvastatin Calcium (LIPITOR) 40 MG 2100 PO Insulin Human Lispro (HUMALOG) 0 AC HS SUBQ Dextrose/Water (DEXTROSE 10% IN WATER) 125 ML DIR PRN IV (CKD) Dextrose/Water (DEXTROSE 10% IN WATER) 250 ML DIR PRN IV (CKD) Glucagon (GLUCAGON) 1 MG ASDIR PRN IM Mesalamine (DELZICOL 400MG CAP DR.) 800 MG BID P O Polyethylene Glycol (MIRALAX) 17 GM DAILY PO Melatonin (Melatonin) 6 MG BEDTIME PO Docusate Sodium (COLACE) 100 MG BID PO Gabapentin (NEURONTIN) 200 MG BID PO Sennosides (Senna Lax 8.6 MG TABLET) 17.2 MG BED TIME PO Oxycodone HCl (ROXICODONE) 5 MG Q4H PRN PRN PO Oxycodone HCl (ROXICODONE) 10 MG Q4H PRN PRN PO Aspirin (ASPIRIN) 81 MG DAILY PO Mupirocin (BACTROBAN 2% 22 GM OINTMENT) 1 APPLIC BID NASAL Ipratropium [employer] (ATROVENT) 500 MCG RTQ4H INH (DC) Acetaminophen (TYLENOL) 650 MG Q4H PRN PRN PO Acetaminophen (TYLENOL) 650 MG Q4H PRN PRN RECTA L Calcium Chloride (CALCIUM CHLORIDE) 1 GM ASDIR P RN IV Epinephrine (ADRENALIN CHLORIDE) 4 MG ASDIR IV Dextrose/Water (DEXTROSE 5% WATER) 246 ML Glucagon (GLUCAGON) 1 MG ASDIR PRN IM Magnesium Sulfate (MAGNESIUM SULFATE 4GM/SWFI 10 0ML) 100 ML ASDIR PRN IV Magnesium Sulfate (MAGNESIUM SULFATE 2GM/SWFI 50 ML) 50 ML ASDIR PRN IV Magnesium Sulfate/Dextrose (MAGNESIUM SULFATE 1G M/D5W 100ML) 100 ML ASDIR PRN IV Nitroglycerin/Dextrose (NITROGLYCERIN 50,000MCG/ D5W 250ML) 250 ML ASDIR IV Norepinephrine Bitartrate (NOREPINEPHRINE 8 MG/N S 250 ML) 250 ML TITRATE IV Ondansetron HCl (ZOFRAN) 4 MG Q6H PRN PRN IV Potassium Chloride (KCL 20MEQ/SWFI 100ML) 100 ML ASDIR PRN IV Sodium Bicarbonate (SODIUM BICARBONATE) 50 MEQ A SDIR PRN IV Sodium Chloride (SODIUM CHLORIDE 0.9%) 1,000 ML .Q20H IV Sodium Chloride (SODIUM CHLORIDE 0.9%) 250 ML Q2 4H IV Physical Exam General appearance: alert, awake, oriented, no a cute distress, mental status normal, no respiratory distress Head/Eyes: atraumatic, normal conjunctiva/sclera , normal eyelids/periorb. ENT: intubated Neck: full range of motion, non-tender Cardiovascular: normal heart sounds, regular rat e rhythm Respiratory: clear to auscultation Abdomen: non-tender, normal bowel sounds, soft, no distention Extremities: no edema Neuro/CHARGING MANIPULATOR: alert, oriented X 3, CNII-XII intact, normal speech, no motor deficits, no sensory deficits Results Findings/Data: Laboratory Tests 10/16 10/16 10/15 0728 0325 Chemistry Sodium (134 - 147 mEq/L) 128 L Potassium (3.4 - 5.0 mEq/L) 5.0 Chloride (100 - 108 mEq/L) 94 L Carbon Dioxide (21 - 33 mEq/l) 30 Anion Gap (0 - 20) 9 BUN (7 - 18 mg/dL) 13 Creatinine (0.6 - 1.3 mg/dL) 0.7 Glomerular Filtr Rate (70 - 80) 90.1 H Glucose (70 - 110 mg/dL) 138 H POC Glucose (70 - 110 MG/DL) 111 H 149 H Calcium (8.0 - 10.5 mg/dL) 9.0 Magnesium (1.80 - 2.40 mg/dL) 2.09 Laboratory Tests 10/162 Hematology WBC (4.5 - 11.0 x10 3/uL) 14.9 H RBC (3.54 - 5.02 x10 6/uL) 2.87 L Hgb (11.0 - 15.0 g/dL) 8.2 L Hct (33.0 - 45.0 %) 24.3 L MCV (81.0 - 99.0 fL) 84.7 MCH (27.0 - 33.0 pg) 28.6 MCHC (33.0 - 37.0 g/dL) 33.7 RDW (11.5 - 14.5 %) 14.7 H Plt Count (150 - 400 x10 3/uL) 170 MPV (7.0 - 9.0 fL) 10.6 H Neut % (Auto) (56.0 - 77.0 %) 81.4 H Lymph % (Auto) (14.0 - 32.0 %) 8.1 L Nelson % (Auto) (4.8 - 9.0 %) 7.3 Eos % (Auto) (0.3 - 3.7 %) 2.2 Baso % (Auto) (0.0 - 2.0 %) 0.3 Neut # (Auto) (2.0 - 7.6 x10 3/uL) 12.12 H Lymph # (Auto) (1.0 - 3.8 x10 3/uL) 1.20 Nelson # (Auto) (0.1 - 0.8 x10 3/uL) 1.09 H Eos # (Auto) (0.0 - 0.2 x10 3/uL) 0.33 H Baso # (Auto) (0.0 - 0.2 x10 3/uL) 0.04 Abs Immat Gran (auto) (0.00 - 0.03 x10 3/uL) 0. 10 H Add Manual Diff NO Immature Gran % (0.0 - 2.0 %) 0.7 Nucleated RBC % (0 - 0 %) 0.0 Nucleated RBCs # (Man) (0.0 - 0.1 x10 3/uL) 0.0 0 Radiology data: Recent Impressions: ULTRASOUND - DUP VEIN UNI/LTD 10/15 2025 Report Impression - Status: SIGNED Entered: 10/15/20222057 IMPRESSION: No deep venous thrombosis is seen in the visuali zed left upper extremity. Impression By: [email or web address] - Maurilio Bryant M.D. RADIOLOGY - XR CHEST 1 V 10/16 0535 Report Impression - Status: SIGNED Entered: 10/16/2022705 IMPRESSION: Stable radiographic appearance of the chest Impression By: [email or web address] - Alejandro Jacobson Diagnosis, Assessment Plan Consultants: cardiology, cardiovascular surgery, critical/clubhouse manager Free Text DxA P Notes Free text DxA P notes: acute respiratory failure --post procedure severe mitral valve regurgitation HTN HLD CHF -- diastolic intubated on the vent support --post procedure post mitral valve surgery HTN -- on metoprolol monitor BP HLD --lipitor cardiology consult CV surgeon consult critial care consult monitor in the CVICU 1. Mitral valve replacement (27 Mitris valve). 2. Pulmonary vein isolation. 3. Amputation of left atrial appendage. 10/13- she was extubated yesterday she sit on the chair no sob [address] -- she is hemodynamic stable --review lab and image -- case is discussed with nurse 10/14- she sit on the chair -- drainage tube are out -- she feel better -- she is hemodynamic stable -- continue PT/OT continue monitor in CVICU -- review all lab and image 10/15 Continue post-op care, bowel regimen. OOB/a mbulate with PT/OT. 10/16 Had echo today. Continue PT/OT post-op. Electronically Signed by Ciera Hodgson APRN on at 1500 Electronically Signed by Dory Hoff MD on 0 10/23/22 at 1743 [facility] #:[id number] END OF REPORT 2022-10-15 [id number] [facility] 13:14:00-00:[address] [place] [address] PATIENT NAME: SWEETIE AMAYA ADMIT DATE: 10/11 ACCOUNT NO: [id number] ROOM NO: [id number] AGE: 77 REPORT TYPE: CONSULTATION REPORT SEX: F ADMITTING PHYSICIAN:Dory Hoff MD ATTENDING PHYSICIAN:Dory Hoff MD CONSULTATION DATE: INITIAL CONSULT NOTE REASON FOR CONSULTATION: Sick sinus syndrome, si nus pause. HISTORY OF PRESENT ILLNESS: Mrs. Amaya is a 77-year-old lady with new diagnosis of atrial fibrillation, hypertension, hyperlipidemia, carotid stenosis, status post right carotid endarterectomy in 2020, who presented as an outpatient for evaluation of increased shortness of breath over the past several months. Her symptoms were mostly on exertion and she was recently diagnosed with atrial fibrillation. 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 She subsequently un derwent left heart catheterization, which showed no significant coronary artery disease. By Dr. Yuri mcdonald, the patient had mitral valve replacement, pulmonary vein isolation and amputation and ligation of left atrial appendage. Postoperatively, the patient i s pacer dependent and has junctional bradycardia of pacer, off amiodarone and on metoprolol. A consult was requested for possible permanent pacemaker. I evaluated the patient at bedside and turned pacer all the way down to 40 and the patient still was paced from atrium. PHYSICAL EXAMINATION: GENERAL: Pleasant lady, in no acute distress, si tting in the chair. VITAL SIGNS: Heart rate 70, paced. Pulse ox 99%, blood pressure 130/50. HEENT: Unremarkable. NECK: Supple, no jugular venous distention. CHEST: Clear to auscultation. HEART: Regular rate and rhythm with normal first and second heart sound. ABDOMEN: Benign. EXTREMITIES: Examination of extremities did not show any clubbing, cyanosis or edema. IMPRESSION: 1. Sick sinus syndrome. 2. Paroxysmal atrial fibrillation. 3. Status post mitral valve replacement. 4. Status post surgical pulmonary vein isolation and left atrial appendage ligation. PLAN: Considering absence of underlying rhythm a ll the way down to 40 and presence of slow junctional rhythm, if there is no significant recovery of sinus PATIENT NAME: SWEETIE AMAYA [id number] node within the next 48 hours, the patie nt would require a pacemaker. There is no reversible cause if we wa it for another few days and there is no significant recovery of sinus node at that point. The case w as discussed with Dr. Sabillon and the patient. We would tentatively schedule t he patient for a permanent pacemaker on Monday. I would also recommend 2D e cho with Doppler to evaluate ejection fraction post mitral valve surgery. Dictated By: Keyshawn Ku MD Date Dictated: 10/15/2022 13:14:35 Date Transcribed: 10/15/2022 13:44:33 HORACIO/MEMO Receipt ID: [id number] Authenticated by Keyshawn Ku MD On 10/16/2022 0 1:08:07 PM Electronically Signed by Keyshawn Ku MD on 09/25 06/16 at 0108 PATIENT NAME: SWEETIE AMAYA [id number] [facility] 12:55:00-00:00 [facility] Critical Care Progress Note REPORT#:[id number] REPORT STATUS: Signed DATE:10/15/22 TIME: 1255 PATIENT: SWEETIE AMAYA UNIT #: [id number] ROOM/BED: [place] [address] : 47 AGE: 77 SEX: F ATTEND: Bella Hoff MD ADM AUTHOR: Myles Aguayo MD * ALL edits or amendments must be made on the el [employer]/computer document * Subjective Chief complaint: Severe mitral regurgitation HPI: 77-year-old female with past medical history sig nificant for hypertension, dyslipidemia, paroxysmal atrial fibrilla tion, carotid stenosis status post CEA in 2020 was evaluated for shortness of b reath and dyspnea on exertion over the past several months. She denies any symptoms at rest. No angina symptoms were reported. Patient reported lower extremity weakn ess along with shortness of breath. She underwent echocardiogram in the outp atient setting that showed EF of 60 to 65% with a dilated left atrium, moderat e to severe mitral regurgitation. 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 There was possibility of chordae tendonee rupture evidence of trace tricuspid regurgitation with ascending aorta measuring 3.7 cm. Patient underwent left heart catheterization that showed no significant coronary artery disease. Patient underwent CT surgery evaluation for dre re mitral valve regurgitation for possible mitral valve replacement. Alina shannon was brought to CVICU room #2208 oral intubated on the ventilator. She will be fa st-track for extubation. Comments: The patient offers no new complaints No SOB, on nasal cannula Paced Afebrile Review of Systems Free Text ROS Notes Free Text ROS Notes: 12 point Review of Systems was performed to the extent possible including discussion with the nursing staff and review of vital signs and all data. All systems negative other than pertinent negative/p ositive findings mentioned in the interval history section. Objective General VS/I O Last Documented: Result Date Time Pulse Ox 100 10/16 0745 O2 Delivery High flow nasal cannula 10/16 0745 O2 Flow Rate 1 10/16 0745 B/P 113/45 10/16 0500 B/P Mean 65 10/16 0500 Pulse 70 10/16 0500 Resp 23 10/16 0500 Temp 37.1 10/16 0400 FiO2 24 10/16 0255 24 hour I O ending at 0700: 10/16 0700 10/15 1900 Intake Total 700 240 Output Total 1250 1000 Balance -550 -760 Intake, Oral 700 240 Number 1 Bowel Movements Number Voids 2 Output, Urine 1250 1000 Patient 82.8 kg Weight Weight Bed scale Measurement Method PATIENT WEIGHT: Weight (lb): 182 Weight (oz): 8.68 Weight (kg): 82.800 Medications: Active Meds + DC'd Last 24 Hrs Ipratropium [employer] (ATROVENT) 500 MCG RTQ2H PRN PRN INH Furosemide (LASIX 20MG INJ) 20 MG ONCE ONE IV (D C) Cyanocobalamin (Vitamin B-12 500 mcg tab) 500 MC G DAILY PO Ferrous Sulfate (FERROUS SULFATE) 325 MG DAILY PO Bisacodyl (DULCOLAX) 10 MG ONCE PRN RECTAL Magnesium Hydroxide (MILK OF MAGNESIA) 30 ML ONC E PRN PO (DC) Tramadol HCl (ULTRAM) 25 MG QID PRN PO Captopril (CAPOTEN (NF)) 6.25 MG Q8HR PO Atorvastatin Calcium (LIPITOR) 40 MG 2100 PO Insulin Human Lispro (HUMALOG) 0 AC HS SUBQ Dextrose/Water (DEXTROSE 10% IN WATER) 125 ML DIR PRN IV (CKD) Dextrose/Water (DEXTROSE 10% IN WATER) 250 ML DIR PRN IV (CKD) Glucagon (GLUCAGON) 1 MG ASDIR PRN IM Mesalamine (DELZICOL 400MG CAP DR.) 800 MG BID P O Polyethylene Glycol (MIRALAX) 17 GM DAILY PO Melatonin (Melatonin) 6 MG BEDTIME PO Docusate Sodium (COLACE) 100 MG BID PO Gabapentin (NEURONTIN) 200 MG BID PO Sennosides (Senna Lax 8.6 MG TABLET) 17.2 MG BED TIME PO Oxycodone HCl (ROXICODONE) 5 MG Q4H PRN PRN PO Oxycodone HCl (ROXICODONE) 10 MG Q4H PRN PRN PO Aspirin (ASPIRIN) 81 MG DAILY PO Mupirocin (BACTROBAN 2% 22 GM OINTMENT) 1 APPLIC BID NASAL Ipratropium [employer] (ATROVENT) 500 MCG RTQ4H INH (DC) Acetaminophen (TYLENOL) 650 MG Q4H PRN PRN PO Acetaminophen (TYLENOL) 650 MG Q4H PRN PRN RECTA L Calcium Chloride (CALCIUM CHLORIDE) 1 GM ASDIR P RN IV Epinephrine (ADRENALIN CHLORIDE) 4 MG ASDIR IV Dextrose/Water (DEXTROSE 5% WATER) 246 ML Glucagon (GLUCAGON) 1 MG ASDIR PRN IM Magnesium Sulfate (MAGNESIUM SULFATE 4GM/SWFI 10 0ML) 100 ML ASDIR PRN IV Magnesium Sulfate (MAGNESIUM SULFATE 2GM/SWFI 50 ML) 50 ML ASDIR PRN IV Magnesium Sulfate/Dextrose (MAGNESIUM SULFATE 1G M/D5W 100ML) 100 ML ASDIR PRN IV Nitroglycerin/Dextrose (NITROGLYCERIN 50,000MCG/ D5W 250ML) 250 ML ASDIR IV Norepinephrine Bitartrate (NOREPINEPHRINE 8 MG/N S 250 ML) 250 ML TITRATE IV Ondansetron HCl (ZOFRAN) 4 MG Q6H PRN PRN IV Potassium Chloride (KCL 20MEQ/SWFI 100ML) 100 ML ASDIR PRN IV Sodium Bicarbonate (SODIUM BICARBONATE) 50 MEQ A SDIR PRN IV Sodium Chloride (SODIUM CHLORIDE 0.9%) 1,000 ML .Q20H IV Sodium Chloride (SODIUM CHLORIDE 0.9%) 250 ML Q2 4H IV Physical Exam Head/eyes: atraumatic, clear cornea, normocephal ic, PERRL ENT: normal nose, normal sinus Neck: non-tender, normal thyroid, no JVD, no mas ses or swelling Cardiovascular: rub, regular rate and rhythm, no rmal S1/S2 Respiratory: aerating well, clear to auscultatio n, symmetric expansion, no distress Abdomen: soft, non-tender, no distention, no gua rding Genitourinary: urinary catheter, no bladder dist ention, no flank pain Extremities: no clubbing, no cyanosis, no edema Skin: dry, normal color, normal temperature, no rash Results Findings/data: Laboratory Tests 10/15 10/15 10/14 10/14 0714 0405 2107 1643 Chemistry Sodium (134 - 147 mEq/L) 126 L Potassium (3.4 - 5.0 mEq/L) 4.8 Chloride (100 - 108 mEq/L) 95 L Carbon Dioxide (21 - 33 mEq/l) 27 Anion Gap (0 - 20) 9 BUN (7 - 18 mg/dL) 12 Creatinine (0.6 - 1.3 mg/dL) 0.7 Glomerular Filtr Rate (70 - 80) 90.1 H Glucose (70 - 110 mg/dL) 134 H POC Glucose (70 - 110 MG/DL) 118 H 149 H 149 H Calcium (8.0 - 10.5 mg/dL) 8.5 Magnesium (1.80 - 2.40 mg/dL) 1.91 Total Bilirubin (0.0 - 1.0 mg/dL) 0.60 Direct Bilirubin (0.0 - 0.30 MG/DL) 0.20 Indirect Bilirubin (MG/DL) 0.40 AST (15 - 37 IUnit/L) 20 ALT (30 - 65 IUnit/L) 13 L Total Alk Phosphatase (20 - 125 IUnit/L) 77 Total Protein (6.4 - 8.2 g/dL) 5.3 L Albumin (3.4 - 5.0 g/dL) 2.80 L Laboratory Tests 10/15 0405 Hematology WBC (4.5 - 11.0 x10 3/uL) 13.4 H RBC (3.54 - 5.02 x10 6/uL) 2.73 L Hgb (11.0 - 15.0 g/dL) 7.8 L Hct (33.0 - 45.0 %) 23.2 L MCV (81.0 - 99.0 fL) 85.0 MCH (27.0 - 33.0 pg) 28.6 MCHC (33.0 - 37.0 g/dL) 33.6 RDW (11.5 - 14.5 %) 14.8 H Plt Count (150 - 400 x10 3/uL) 115 L MPV (7.0 - 9.0 fL) 11.2 H Neut % (Auto) (56.0 - 77.0 %) 77.3 H Lymph % (Auto) (14.0 - 32.0 %) 9.5 L Nelson % (Auto) (4.8 - 9.0 %) 9.3 H Eos % (Auto) (0.3 - 3.7 %) 3.1 Baso % (Auto) (0.0 - 2.0 %) 0.2 Neut # (Auto) (2.0 - 7.6 x10 3/uL) 10.33 H Lymph # (Auto) (1.0 - 3.8 x10 3/uL) 1.27 Nelson # (Auto) (0.1 - 0.8 x10 3/uL) 1.24 H Eos # (Auto) (0.0 - 0.2 x10 3/uL) 0.42 H Baso # (Auto) (0.0 - 0.2 x10 3/uL) 0.03 Abs Immat Gran (auto) (0.00 - 0.03 x10 3/uL) 0. 08 H Add Manual Diff NO Immature Gran % (0.0 - 2.0 %) 0.6 Nucleated RBC % (0 - 0 %) 0.0 Nucleated RBCs # (Man) (0.0 - 0.1 x10 3/uL) 0.0 0 Laboratory Tests 10/15/22 0405: [Embedded Image Not Available] Radiology data Recent Impressions: RADIOLOGY - XR CHEST 1 V 10/15 0633 Report Impression - Status: SIGNED Entered: 10/15/2022 0720 IMPRESSION: Significant interval improvement in bilateral pu lmonary opacities. Impression By: Cuca - Alejandro Jacobson Free Text Obj Notes Free Text Obj Notes: General appearance: Elderly female in no acute d istress, interactive and conversational HEENT: atraumatic, normocephalic, dry mucosal me mbranes Neck: full range of motion, supple/no meningismu s Cardiovascular: S1-S2 regular rate and rhythm, p acer dependent Respiratory: symmetric expansion, no acute respi ratory distress Abdomen: soft, non-tender, no distention, no gua rding Genitourinary: gonzales with clear urine Extremities: pedal pulses palpable, moves all, n o clubbing, no cyanosis, no edema Musculoskeletal: normal inspection, no muscle sp asm Neuro/CHARGING MANIPULATOR: Alert and oriented x3, CNII-XII gross ly intact, no motor deficits Skin: dry, intact and clean surgery dressing Diagnosis, Assessment Plan Free text A P: 77-year-old female with Dyspnea/Dyspnea on exertion Severe mitral regurgitation status post MVR on Acute pulmonary insufficiency following major ca rdiothoracic surgery Cardiogenic shock Acute blood loss anemia Metabolic acidosis Hypokalemia Assessment and Plan: Patient was received in room #2208 after mitral valve replacement for severe mitral regurgitation. Since she also underwent pulmonary vein isolatio n along with ligation of left atrial appendage. Patient received 27 mm mitral is bioprosthetic valve. She is currently a paced. Normal LV function. No parava lvular leak or regurgitation after replacement. PA pressures are at 39/19 mmH g. She is oral intubated with ET tube of 7.0 secured at 21 cm at the teeth. Pa tient received 1.2 L of crystalloids intraoperativel y along with 300 mL of Amicar, 430 mL of Cell Saver. She had 100 mL of EBL and 530 mL of urine outpu t. She is currently on norepinephrine at 1 and epinephrine at 3 mics. Patient received vancomycin and Ancef for antibiotic prophylaxis. She is currently on insulin at 6 units/h and the latest blood glucose is 180 mg/dL. She was f ound to be hypokalemic with a potassium of 3.4 and is receiving 40 mg of potas sium chloride intravenously. She also received 2 g of magnesium sulfate. Ches t tube output is 25 mL in the left pleural and 15 mL in the mediastinal chest tube. Pupils are 2 mm bilaterally symmetrical reactive to light. She i s currently on assist-control at 20 tidal volume 450 PEEP of 5 and 50% FiO2 and the latest blood gas shows a pH of 7.35, pCO2 of 40 mmHg, pO2 of 109 mmHg and bicarbonate of 22 mmol with base excess at -3.1. Creatinine 0.60 mg/dL, gluc ose 189 mg/dL, potassium 4.0 mmol, ionized calcium 1.37 mg/dL, hemoglobin 11. 1 g/dL with hematocrit of 33% and sodium 139. Currently sinus rhythm 80 A-pace d, blood pressure 129/47 mmHg and pulse ox 100% while on 50% FiO2. PA pressure is 39/19 mmHg. Sweetie Amaya is a 77-year-old female with past medical history significant for hypertension, dyslipidem ia, paroxysmal atrial fibrillation, carotid stenosis status post CEA in 2020 was evaluated for shortn ess of breath and dyspnea on exertion over the past several months. She denie s any symptoms at rest. No angina symptoms were reported. Patient r eported lower extremity weakness along with shortness of breath. She underwent echocard iogram in the outpatient setting that showed EF of 60 to 65% with a dilat ed left atrium, moderate to severe mitral regurgitation. 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 There was possibility of chordae tendonee ruptur e evidence of trace tricuspid regurgitation with ascending aorta measuring 3.7 cm. Patient underwent left heart catheterization that showed no significant coronary artery disease. Patient underwent CT surgery evaluation for dre re mitral valve regurgitation for possible mitral valve replacement. Alina shannon was brought to CVICU room #2208 oral intubated on the ventilator. She will be fa st-track for extubation. Post-op day 0 after mitral valve replacement for severe mitral regurgitation along with pulmonary vein isolation as well as l eft atrial appendecectomy Patient received 27 mm Mitris bioprosthetic valv e Patient is on elective ventilator depend ence for acute pulmonary insufficiency following major cardiothoracic surgery Currently on assist-control at 20 tidal volume 4 50 PEEP of 5 and 50% FiO2 Latest blood gas shows 7.35, pCO2 of 40 mmHg, pO2 of 109 mmHg and bicarbonate of 22 mmol with base excess at -3.1 Mild metabolic acidosis, give 1 amp of sodium bi carb Follow ABG Patient is altered at this time recovering from anesthesia She will be fast-track for extubate Monitor chest tube output Left pleural output is 25 mL and mediastinal out put is 15 mL Hypomagnesemia, patient received 2 g of magnesiu m sulfate Hypokalemia with a potassium of 3.4 mmol and pat ient receiving 40 mg of potassium chloride Glycemic control with insuli n at 6 units/h and latest blood glucose is 180 mg/dL Perioperative antibiotic therapy with vancomycin and Ancef Patient is currently on vaso pressor and inotropic support with norepinephrine at 1 mcg and epinephrine at 3 mcg Follow blood pressure closely Use albumin as needed No paravalvular leak or mitral regurgitation pos toperatively Normal LV function SCDs for DVT prophylaxis 10/13 Appears neuro intact, multimodal pain control Sats well after extubation, wean O2, encourage I -S, ABG and CXR reviewed BP control with nitroglyceri n drip, remains pacer dependent, keep AV pacing and stop beta-blockers and amiodarone per CT surgery Cr stable, good urine output, lactic acidosis cl eared s/p resuscitation Oral diet as tolerated, bowel regimen, trend LFT s, replete hypomagnesemia Leukocytosis with downtrending WBC, given periop antibiotics Hgb trending down, no evidence of active bleed, monitor CTs output Blood glucose control with insulin drip, transit ion to sliding scale insulin Encourage PT/OT and out of bed as tolerated, DVT prophylaxis with SCDs 10/14 Appears neuro intact, multimodal pain control Sats well on nasal cannula, wean O2, encourage I -S, ABG and CXR reviewed BP control controlled, remai ns pacer dependent, keep AV pacing and stay off beta -blockers and amiodarone per CT surgery Cr stable, good urine output Oral diet as tolerated, bowel regimen, trend LFT s, replete electrolytess Hgb trending down, no evidence of active bleed Blood glucose control with sliding scale insulin Encourage PT/OT and out of bed as tolerated, DVT prophylaxis with SCDs Discussed with CV surgery and ICU team Critical care time 34 minutes 10/15 Appears neuro intact, multimodal pain control Sats well on nasal cannula, wean O2, encourage I -S, ABG and CXR reviewed BP control controlled, remai ns pacer dependent, keep AV pacing and stay off beta -blockers and amiodarone per CT surgery Cr stable, good urine output, Lasix 20 mg p.o. d eladio, MARCOS Gonzales Oral diet as tolerated, bowel regimen, trend LFT s, replete electrolytess Hgb is stable no evidence of active bleed Blood glucose control with sliding scale insulin Encourage PT/OT and out of bed as tolerated, DVT prophylaxis with SCDs Discussed with CV surgery and ICU team Critical care time 31 minutes Consultants: cardiology, cardiovascular surgery, critical/clubhouse manager at 0805 RPT #:[id number] END OF REPORT 2022-10-15 [facility] 12:43:00-00:00 [facility] Cardiology Progress Note REPORT#:[id number] REPORT STATUS: Signed DATE:10/15/22 TIME: 1243 PATIENT: SWEETIE AMAYA UNIT #: [id number] ROOM/BED: [place] [id number] : 47 AGE: 77 SEX: F ATTEND: Bella Hoff MD ADM AUTHOR: Meredith Sabillon MD * ALL edits or amendments must be made on the Onevest/computer document * Subjective Chief complaint: NONE Objective General VS/I O: 24 hour I O ending at 0700: 10/15 0700 10/14 1900 Intake Total 550 Output Total 85 650 Balance -85 -100 Intake, Oral 500 Intake, Oral 50 Supplement Number 0 Bowel Movements Output, Urine 85 650 Patient 83.4 kg Weight Weight Standing scale Measurement Method Vital Signs: Date Time Temp Pulse Resp B/P B/P Pulse O2 O2 F low FiO2 Mean Ox Delivery Rate 10/15 1211 70 30 133/49 70 99 10/15 1200 70 23 143/52 75 99 10/15 1107 70 20 129/60 86 10/15 1100 69 26 131/37 66 98 10/15 1008 69 20 151/49 76 100 10/15 1000 164/72 103 07/ 1000 69 14 154/50 78 100 07/ 0900 149/66 95 07/22 0900 69 12 154/51 77 100 10/15 0824 98 Nasal 3 cannula 10/15 0800 142/63 90 / 0800 70 15 167/51 79 100 10/15 0600 70 15 149/45 70 100 / 0500 99.5 70 11 158/54 79 100 / 0400 99.3 70 12 154/56 81 100 10/15 0359 99.3 70 11 151/55 80 100 10/15 0315 100 Nasal 3 32 cannula 10/15 0300 99.3 70 20 130/45 68 100 10/15 0200 99.5 70 21 121/36 58 100 10/15 0100 99.5 70 19 143/42 67 100 10/15 0004 99.7 70 20 143/42 66 100 10/14 2151 99.9 70 18 143/41 64 100 10/14 2100 99.4 07 2100 Nasal 3 cannula 10/14 2100 99.9 70 14 142/44 66 99 10/14 2000 99.9 70 16 159/55 78 100 10/14 1953 99.9 70 16 147/51 72 99 / 1924 99 Nasal 3 32 cannula 10/14 1900 99.9 70 18 152/49 72 100 10/14 1800 99.9 70 16 125/59 85 99 10/14 1724 99.7 70 18 150/48 70 100 10/14 1700 99.7 70 21 150/55 79 100 07 1601 99.7 70 15 151/47 70 100 10/14 1600 99.7 70 16 155/47 71 100 10/14 1500 99.9 70 25 133/43 62 99 10/14 1405 97 Nasal 3 cannula 10/14 1400 99.9 70 13 127/43 62 97 /21 1345 70 16 113/56 81 07/21 1300 69 24 114/44 62 98 PATIENT WEIGHT: Weight (lb): 183 Weight (oz): 13.85 Weight (kg): 83.400 Medications: Active Meds + DC'd Last 24 Hrs Ipratropium [employer] (ATROVENT) 500 MCG RTQ2H PRN PRN INH Furosemide (LASIX 20MG INJ) 20 MG ONCE ONE IV (D C) Cyanocobalamin (Vitamin B-12 500 mcg tab) 500 MC G DAILY PO Ferrous Sulfate (FERROUS SULFATE) 325 MG DAILY P O Bisacodyl (DULCOLAX) 10 MG ONCE PRN RECTAL Magnesium Hydroxide (MILK OF MAGNESIA) 30 ML ONC E PRN PO (DC) Tramadol HCl (ULTRAM) 25 MG QID PRN PO Captopril (CAPOTEN (NF)) 6.25 MG Q8HR PO Atorvastatin Calcium (LIPITOR) 40 MG 2100 PO Insulin Human Lispro (HUMALOG) 0 AC HS SUBQ Dextrose/Water (DEXTROSE 10% IN WATER) 125 ML DIR PRN IV (CKD) Dextrose/Water (DEXTROSE 10% IN WATER) 250 ML DIR PRN IV (CKD) Glucagon (GLUCAGON) 1 MG ASDIR PRN IM Mesalamine (DELZICOL 400MG CAP DR.) 800 MG BID P O Polyethylene Glycol (MIRALAX) 17 GM DAILY PO Melatonin (Melatonin) 6 MG BEDTIME PO Docusate Sodium (COLACE) 100 MG BID PO Gabapentin (NEURONTIN) 200 MG BID PO Sennosides (Senna Lax 8.6 MG TABLET) 17.2 MG BED TIME PO Oxycodone HCl (ROXICODONE) 5 MG Q4H PRN PRN PO Oxycodone HCl (ROXICODONE) 10 MG Q4H PRN PRN PO Aspirin (ASPIRIN) 81 MG DAILY PO Mupirocin (BACTROBAN 2% 22 GM OINTMENT) 1 APPLIC BID NASAL Ipratropium [employer] (ATROVENT) 500 MCG RTQ4H INH (DC) Acetaminophen (TYLENOL) 650 MG Q4H PRN PRN PO Acetaminophen (TYLENOL) 650 MG Q4H PRN PRN RECTA L Calcium Chloride (CALCIUM CHLORIDE) 1 GM ASDIR P RN IV Epinephrine (ADRENALIN CHLORIDE) 4 MG ASDIR IV Dextrose/Water (DEXTROSE 5% WATER) 246 ML Glucagon (GLUCAGON) 1 MG ASDIR PRN IM Magnesium Sulfate (MAGNESIUM SULFATE 4GM/SWFI 10 0ML) 100 ML ASDIR PRN IV Magnesium Sulfate (MAGNESIUM SULFATE 2GM/SWFI 50 ML) 50 ML ASDIR PRN IV Magnesium Sulfate/Dextrose (MAGNESIUM SULFATE 1G M/D5W 100ML) 100 ML ASDIR PRN IV Nitroglycerin/Dextrose (NITROGLYCERIN 50,000MCG/ D5W 250ML) 250 ML ASDIR IV Norepinephrine Bitartrate (NOREPINEPHRINE 8 MG/N S 250 ML) 250 ML TITRATE IV Ondansetron HCl (ZOFRAN) 4 MG Q6H PRN PRN IV Potassium Chloride (KCL 20MEQ/SWFI 100ML) 100 ML ASDIR PRN IV Sodium Bicarbonate (SODIUM BICARBONATE) 50 MEQ A SDIR PRN IV Sodium Chloride (SODIUM CHLORIDE 0.9%) 1,000 ML .Q20H IV Sodium Chloride (SODIUM CHLORIDE 0.9%) 250 ML Q2 4H IV Physical Exam General appearance: awake ENT: normal nose Neck: non-tender Cardiovascular: CV assessment: regular rate and rhythm Murmur assessment: heart murmur Respiratory: decreased breath sounds, on oxygen, no distress Abdomen: soft, non-tender, normal bowel sounds, no distention Genitourinary: urinary catheter, urine Upper extremity: Right radial site: intact, no bleeding, no drai nage, no ecchymosis, no hematoma Lower extremity: LE assessment: no edema Musculoskeletal: normal inspection Neuro/CHARGING MANIPULATOR: alert, oriented X 3, normal speech Skin: dry Psychiatry: normal affect, normal mood Results Findings/Data: Laboratory Tests 10/15 10/15 10/14 10/14 0714 0405 2107 1643 Chemistry Sodium (134 - 147 mEq/L) 126 L Potassium (3.4 - 5.0 mEq/L) 4.8 Chloride (100 - 108 mEq/L) 95 L Carbon Dioxide (21 - 33 mEq/l) 27 Anion Gap (0 - 20) 9 BUN (7 - 18 mg/dL) 12 Creatinine (0.6 - 1.3 mg/dL) 0.7 Glomerular Filtr Rate (70 - 80) 90.1 H Glucose (70 - 110 mg/dL) 134 H POC Glucose (70 - 110 MG/DL) 118 H 149 H 149 H Calcium (8.0 - 10.5 mg/dL) 8.5 Magnesium (1.80 - 2.40 mg/dL) 1.91 Total Bilirubin (0.0 - 1.0 mg/dL) 0.60 Direct Bilirubin (0.0 - 0.30 MG/DL) 0.20 Indirect Bilirubin (MG/DL) 0.40 AST (15 - 37 IUnit/L) 20 ALT (30 - 65 IUnit/L) 13 L Total Alk Phosphatase (20 - 125 IUnit/L) 77 Total Protein (6.4 - 8.2 g/dL) 5.3 L Albumin (3.4 - 5.0 g/dL) 2.80 L Laboratory Tests 10/15 0405 Hematology WBC (4.5 - 11.0 x10 3/uL) 13.4 H RBC (3.54 - 5.02 x10 6/uL) 2.73 L Hgb (11.0 - 15.0 g/dL) 7.8 L Hct (33.0 - 45.0 %) 23.2 L MCV (81.0 - 99.0 fL) 85.0 MCH (27.0 - 33.0 pg) 28.6 MCHC (33.0 - 37.0 g/dL) 33.6 RDW (11.5 - 14.5 %) 14.8 H Plt Count (150 - 400 x10 3/uL) 115 L MPV (7.0 - 9.0 fL) 11.2 H Neut % (Auto) (56.0 - 77.0 %) 77.3 H Lymph % (Auto) (14.0 - 32.0 %) 9.5 L Nelson % (Auto) (4.8 - 9.0 %) 9.3 H Eos % (Auto) (0.3 - 3.7 %) 3.1 Baso % (Auto) (0.0 - 2.0 %) 0.2 Neut # (Auto) (2.0 - 7.6 x10 3/uL) 10.33 H Lymph # (Auto) (1.0 - 3.8 x10 3/uL) 1.27 Nelson # (Auto) (0.1 - 0.8 x10 3/uL) 1.24 H Eos # (Auto) (0.0 - 0.2 x10 3/uL) 0.42 H Baso # (Auto) (0.0 - 0.2 x10 3/uL) 0.03 Abs Immat Gran (auto) (0.00 - 0.03 x10 3/uL) 0. 08 H Add Manual Diff NO Immature Gran % (0.0 - 2.0 %) 0.6 Nucleated RBC % (0 - 0 %) 0.0 Nucleated RBCs # (Man) (0.0 - 0.1 x10 3/uL) 0.0 0 Laboratory Tests 07/22 0405 Chemistry Magnesium (1.80 - 2.40 mg/dL) 1.91 Radiology data: Recent Impressions: RADIOLOGY - XR CHEST 1 V 10/15 0633 Report Impression - Status: SIGNED Entered: 10/15/2022 0720 IMPRESSION: Significant interval improvement in bilateral pu lmonary opacities. Impression By: [email or web address] - Alejandro Jacobson Results: labs reviewed, vital signs reviewed, vi anjel signs stable Diagnosis, Assessment Plan Consultants: cardiology, cardiovascular surgery, critical/clubhouse manager Free Text DxA P Notes Free Text DxA P Notes: 77 YO female with PMHx of hy pertension, hyperlipidemia, carotid artery disease s /p R CEA who has been having progressively worse madeleine shortness of breath. She was found to have severe mitral valve regurgitat ion. 1. Severe mitral valve regurgitation s/p MVR, PV I, and ALAA * post op care per CTS and ICC * continue ASA * pacer-dependent, junctional dari when off pacer, off amio and metorprolol - may need EP * appear volume overloaded, CXR showed c ongestion, positive 1.2L - received IV lasix 20 mg, may need more. 2. Hypertension * monitor off BP meds 3. Hyperlipidemia * continue statin MDM by Dr. Bowden. 10/15/22: -SEVERE MR -S/P [facility] 10-11-22, NORMAL CORONARIES PROCEDURES: 10-12-22 1. Mitral valve replacement (27 Mitris valve). 2. Pulmonary vein isolation. 3. Amputation of left atrial appendage. -COMPLETE HEART BLOCK, REQUIRING ATRIAL V PACED, -WOULD NEED PACEMAKER, EP CONSULT Electronically Signed by Meredith Sabillon MD on 0 10/16/[address] [place] [address] #[id number] END OF REPORT 2022-10-15 [facility] 11:00:00-00:00 [facility] Hospitalist Progress Note REPORT#:[id number] REPORT STATUS: Signed DATE:10/15/22 TIME: 1100 PATIENT: SWEETIE AMAYA UNIT #: [id number] ROOM/BED: [place] [id number] : 47 AGE: 77 SEX: F ATTEND: Bella Hoff MD ADM AUTHOR: Ciera Hodgson APRN * ALL edits or amendments must be made on the [employer]/computer document * Subjective Chief complaint: up in chair, feels weak, no BM yet 1. Mitral valve replacement 2. Pulmonary vein isolation. 3. Amputation of left atrial appendage. HPI: 77 YO female with PMHx of hy pertension, hyperlipidemia, carotid artery disease s /p R CEA was admitted to the hospital for mitral valve surgery . she has been progressively worsening of s ob . she was found severe mitral valve regurgitation . LHC was done . it show no blockage . she had mitral valve surgery today . she was seen in CVICU post procedure . she was intub ated on the vent support . 2 drainage tube are in place . history is obtained from staff and review the chart . Review of Systems Constitutional: Reports: generalized weakness. Denies: lethargy, malaise. Respiratory: Denies: SOB, wheezing. Cardiovascular: Denies: chest pain, palpitations. GI: Reports: constipation. Denies: abdominal pain. : Denies: dysuria, frequency. All systems rev neg: except as noted Objective General VS/I O: Vital Signs: Date Time Temp Pulse Resp B/P B/P Pulse O2 O2 F low FiO2 Mean Ox Delivery Rate 10/15 1008 69 20 151/49 76 100 / 1000 164/72 103 / 1000 69 14 154/50 78 100 10/15 0900 149/66 95 10/15 0900 69 12 154/51 77 100 10/15 0824 98 Nasal 3 cannula 10/15 0800 142/63 90 10/15 0800 70 15 167/51 79 100 10/15 0600 70 15 149/45 70 100 10/15 0500 37.5 70 11 158/54 79 100 10/15 0400 37.4 70 12 154/56 81 100 10/15 0359 37.4 70 11 151/55 80 100 10/15 0315 100 Nasal 3 32 cannula 10/15 0300 37.4 70 20 130/45 68 100 10/15 0200 37.5 70 21 121/36 58 100 10/15 0100 37.5 70 19 143/42 67 100 10/15 0004 37.6 70 20 143/42 66 100 10/14 2151 37.7 70 18 143/41 64 100 10/14 2100 37.4 10/14 2100 Nasal 3 cannula 10/14 2100 37.7 70 14 142/44 66 99 10/14 2000 37.7 70 16 159/55 78 100 10/14 1953 37.7 70 16 147/51 72 99 10/14 1924 99 Nasal 3 32 cannula 10/14 1900 37.7 70 18 152/49 72 100 10/14 1800 37.7 70 16 125/59 85 99 10/14 1724 37.6 70 18 150/48 70 100 10/14 1700 37.6 70 21 150/55 79 100 10/14 1601 37.6 70 15 151/47 70 100 10/14 1600 37.6 70 16 155/47 71 100 10/14 1500 37.7 70 25 133/43 62 99 10/14 1405 97 Nasal 3 cannula 10/14 1400 37.7 70 13 127/43 62 97 10/14 1345 70 16 113/56 81 10/14 1300 69 24 114/44 62 98 10/14 1200 69 19 143/49 71 99 24 hour I O ending at 0700: 10/15 0700 10/14 1900 Intake Total 550 Output Total 85 650 Balance -85 -100 Intake, Oral 500 Intake, Oral 50 Supplement Number 0 Bowel Movements Output, Urine 85 650 Patient 83.4 kg Weight Weight Standing scale Measurement Method PATIENT WEIGHT: Weight (lb): 183 Weight (oz): 13.85 Weight (kg): 83.400 Medications: Active Meds + DC'd Last 24 Hrs Ipratropium [employer] (ATROVENT) 500 MCG RTQ2H PRN PRN INH Furosemide (LASIX 20MG INJ) 20 MG ONCE ONE IV (D C) Cyanocobalamin (Vitamin B-12 500 mcg tab) 500 MC G DAILY PO Ferrous Sulfate (FERROUS SULFATE) 325 MG DAILY P O Bisacodyl (DULCOLAX) 10 MG ONCE PRN RECTAL Magnesium Hydroxide (MILK OF MAGNESIA) 30 ML ONC E PRN PO (DC) Tramadol HCl (ULTRAM) 25 MG QID PRN PO Captopril (CAPOTEN (NF)) 6.25 MG Q8HR PO Atorvastatin Calcium (LIPITOR) 40 MG 2100 PO Insulin Human Lispro (HUMALOG) 0 AC HS SUBQ Dextrose/Water (DEXTROSE 10% IN WATER) 125 ML DIR PRN IV (CKD) Dextrose/Water (DEXTROSE 10% IN WATER) 250 ML DIR PRN IV (CKD) Glucagon (GLUCAGON) 1 MG ASDIR PRN IM Mesalamine (DELZICOL 400MG CAP ) 800 MG BID P O Polyethylene Glycol (MIRALAX) 17 GM DAILY PO Melatonin (Melatonin) 6 MG BEDTIME PO Docusate Sodium (COLACE) 100 MG BID PO Gabapentin (NEURONTIN) 200 MG BID PO Sennosides (Senna Lax 8.6 MG TABLET) 17.2 MG BED TIME PO Oxycodone HCl (ROXICODONE) 5 MG Q4H PRN PRN PO Oxycodone HCl (ROXICODONE) 10 MG Q4H PRN PRN PO Aspirin (ASPIRIN) 81 MG DAILY PO Mupirocin (BACTROBAN 2% 22 GM OINTMENT) 1 APPLIC BID NASAL Ipratropium [employer] (ATROVENT) 500 MCG RTQ4H INH (DC) Acetaminophen (TYLENOL) 650 MG Q4H PRN PRN PO Acetaminophen (TYLENOL) 650 MG Q4H PRN PRN RECTA L Calcium Chloride (CALCIUM CHLORIDE) 1 GM ASDIR P RN IV Epinephrine (ADRENALIN CHLORIDE) 4 MG ASDIR IV Dextrose/Water (DEXTROSE 5% WATER) 246 ML Glucagon (GLUCAGON) 1 MG ASDIR PRN IM Magnesium Sulfate (MAGNESIUM SULFATE 4GM/SWFI 10 0ML) 100 ML ASDIR PRN IV Magnesium Sulfate (MAGNESIUM SULFATE 2GM/SWFI 50 ML) 50 ML ASDIR PRN IV Magnesium Sulfate/Dextrose (MAGNESIUM SULFATE 1G M/D5W 100ML) 100 ML ASDIR PRN IV Nitroglycerin/Dextrose (NITROGLYCERIN 50,000MCG/ D5W 250ML) 250 ML ASDIR IV Norepinephrine Bitartrate (NOREPINEPHRINE 8 MG/N S 250 ML) 250 ML TITRATE IV Ondansetron HCl (ZOFRAN) 4 MG Q6H PRN PRN IV Potassium Chloride (KCL 20MEQ/SWFI 100ML) 100 ML ASDIR PRN IV Sodium Bicarbonate (SODIUM BICARBONATE) 50 MEQ A SDIR PRN IV Sodium Chloride (SODIUM CHLORIDE 0.9%) 1,000 ML .Q20H IV Sodium Chloride (SODIUM CHLORIDE 0.9%) 250 ML Q2 4H IV Physical Exam General appearance: alert, awake, oriented, no a cute distress, no respiratory distress Head/Eyes: atraumatic, normal conjunctiva/sclera , normal eyelids/periorb. ENT: intubated Neck: full range of motion, non-tender Cardiovascular: normal heart sounds, regular rat e rhythm Respiratory: clear to auscultation Abdomen: non-tender, normal bowel sounds, soft, no distention Extremities: no edema Neuro/CHARGING MANIPULATOR: alert, oriented X 3, CNII-XII intact, normal speech, no motor deficits, no sensory deficits Results Findings/Data: Laboratory Tests 10/15 10/15 10/14 10/14 10/14 0714 0405 2107 1643 1133 Chemistry Sodium (134 - 147 mEq/L) 126 L Potassium (3.4 - 5.0 mEq/L) 4.8 Chloride (100 - 108 mEq/L) 95 L Carbon Dioxide (21 - 33 mEq/l) 27 Anion Gap (0 - 20) 9 BUN (7 - 18 mg/dL) 12 Creatinine (0.6 - 1.3 mg/dL) 0.7 Glomerular Filtr Rate (70 - 80) 90.1 H Glucose (70 - 110 mg/dL) 134 H POC Glucose (70 - 110 MG/DL) 118 H 149 H 149 H 140 H Calcium (8.0 - 10.5 mg/dL) 8.5 Magnesium (1.80 - 2.40 mg/dL) 1.91 Total Bilirubin (0.0 - 1.0 mg/dL) 0.60 Direct Bilirubin (0.0 - 0.30 MG/DL) 0.20 Indirect Bilirubin (MG/DL) 0.40 AST (15 - 37 IUnit/L) 20 ALT (30 - 65 IUnit/L) 13 L Total Alk Phosphatase (20 - 125 IUnit/L) 77 Total Protein (6.4 - 8.2 g/dL) 5.3 L Albumin (3.4 - 5.0 g/dL) 2.80 L Laboratory Tests 10/15 0405 Hematology WBC (4.5 - 11.0 x10 3/uL) 13.4 H RBC (3.54 - 5.02 x10 6/uL) 2.73 L Hgb (11.0 - 15.0 g/dL) 7.8 L Hct (33.0 - 45.0 %) 23.2 L MCV (81.0 - 99.0 fL) 85.0 MCH (27.0 - 33.0 pg) 28.6 MCHC (33.0 - 37.0 g/dL) 33.6 RDW (11.5 - 14.5 %) 14.8 H Plt Count (150 - 400 x10 3/uL) 115 L MPV (7.0 - 9.0 fL) 11.2 H Neut % (Auto) (56.0 - 77.0 %) 77.3 H Lymph % (Auto) (14.0 - 32.0 %) 9.5 L Nelson % (Auto) (4.8 - 9.0 %) 9.3 H Eos % (Auto) (0.3 - 3.7 %) 3.1 Baso % (Auto) (0.0 - 2.0 %) 0.2 Neut # (Auto) (2.0 - 7.6 x10 3/uL) 10.33 H Lymph # (Auto) (1.0 - 3.8 x10 3/uL) 1.27 Nelson # (Auto) (0.1 - 0.8 x10 3/uL) 1.24 H Eos # (Auto) (0.0 - 0.2 x10 3/uL) 0.42 H Baso # (Auto) (0.0 - 0.2 x10 3/uL) 0.03 Abs Immat Gran (auto) (0.00 - 0.03 x10 3/uL) 0. 08 H Add Manual Diff NO Immature Gran % (0.0 - 2.0 %) 0.6 Nucleated RBC % (0 - 0 %) 0.0 Nucleated RBCs # (Man) (0.0 - 0.1 x10 3/uL) 0.0 0 Radiology data: Recent Impressions: RADIOLOGY - XR CHEST 1 V 10/15 0633 Report Impression - Status: SIGNED Entered: 10/15/2022 0720 IMPRESSION: Significant interval improvement in bilateral pu lmonary opacities. Impression By: Cuca - Alejandro Jacobson Diagnosis, Assessment Plan Consultants: cardiology, cardiovascular surgery, critical/clubhouse manager Plan discussed with: patient, family Free Text DxA P Notes Free text DxA P notes: acute respiratory failure --post procedure severe mitral valve regurgitation HTN HLD CHF -- diastolic intubated on the vent support --post procedure post mitral valve surgery HTN -- on metoprolol monitor BP HLD --lipitor cardiology consult CV surgeon consult critial care consult monitor in the CVICU 1. Mitral valve replacement (27 Mitris valve). 2. Pulmonary vein isolation. 3. Amputation of left atrial appendage. 10/13- she was extubated yesterday she sit on the chair no sob [address] -- she is hemodynamic stable --review lab and image -- case is discussed with nurse 10/14- she sit on the chair -- drainage tube are out -- she feel better -- she is hemodynamic stable -- continue PT/OT continue monitor in CVICU -- review all lab and image 10/15 Continue post-op care, bowel regimen. OOB/a mbulate with PT/OT. Electronically Signed by Ciera Hodgson APRN on at 2111 Electronically Signed by Dory Hoff MD on 0 10/23/22 at 1742 RPT #:[id number] END OF REPORT 2022-10-15 [facility] 08:23:00-00:00 [facility] ([facility] Cardiothoracic Surgery Prog REPORT#:[id number] REPORT STATUS: Signed DATE:10/15/22 TIME: 822 PATIENT: SWEETIE AMAYA UNIT #: [id number] ROOM/BED: [place] [id number] : 47 AGE: 77 SEX: F ATTEND: Bella Hoff MD ADM AUTHOR: Navdeep Carey MD * ALL edits or amendments must be made on the [employer]/computer document * Objective General VS/I O Last Documented: Result Date Time Pulse Ox 100 10/15 0600 B/P 149/45 10/15 06 B/P Mean 70 10/15 0600 Pulse 70 10/15 0600 Resp 15 10/15 06 Temp 37.5 10/15 0500 FiO2 32 10/15 0315 O2 Delivery Nasal cannula 10/15 031 O2 Flow Rate 3 10/15 0315 24 hour I O ending at 0700: 10/15 0700 10/14 1900 Intake Total 550 Output Total 85 650 Balance -85 -100 Intake, Oral 500 Intake, Oral 50 Supplement Number 0 Bowel Movements Output, Urine 85 650 Patient 83.4 kg Weight Weight Standing scale Measurement Method PATIENT WEIGHT: Weight (lb): 183 Weight (oz): 13.85 Weight (kg): 83.400 Physical Exam Cardiovascular: regular rate rhythm, A paced Respiratory: aerating well Abdomen: soft, non-tender Genitourinary: gonzales Musculoskeletal: full range of motion Neuro/CHARGING MANIPULATOR: alert, oriented X 3 Skin: dry, intact Results Findings/Data: Laboratory Tests 10/15 10/15 10/14 10/14 10/14 0714 0405 2107 1643 1133 Chemistry Sodium (134 - 147 mEq/L) 126 L Potassium (3.4 - 5.0 mEq/L) 4.8 Chloride (100 - 108 mEq/L) 95 L Carbon Dioxide (21 - 33 mEq/l) 27 Anion Gap (0 - 20) 9 BUN (7 - 18 mg/dL) 12 Creatinine (0.6 - 1.3 mg/dL) 0.7 Glomerular Filtr Rate (70 - 80) 90.1 H Glucose (70 - 110 mg/dL) 134 H POC Glucose (70 - 110 MG/DL) 118 H 149 H 149 H 140 H Calcium (8.0 - 10.5 mg/dL) 8.5 Magnesium (1.80 - 2.40 mg/dL) 1.91 Total Bilirubin (0.0 - 1.0 mg/dL) 0.60 Direct Bilirubin (0.0 - 0.30 MG/DL) 0.20 Indirect Bilirubin (MG/DL) 0.40 AST (15 - 37 IUnit/L) 20 ALT (30 - 65 IUnit/L) 13 L Total Alk Phosphatase (20 - 125 IUnit/L) 77 Total Protein (6.4 - 8.2 g/dL) 5.3 L Albumin (3.4 - 5.0 g/dL) 2.80 L Laboratory Tests 10/15 0405 Hematology WBC (4.5 - 11.0 x10 3/uL) 13.4 H RBC (3.54 - 5.02 x10 6/uL) 2.73 L Hgb (11.0 - 15.0 g/dL) 7.8 L Hct (33.0 - 45.0 %) 23.2 L MCV (81.0 - 99.0 fL) 85.0 MCH (27.0 - 33.0 pg) 28.6 MCHC (33.0 - 37.0 g/dL) 33.6 RDW (11.5 - 14.5 %) 14.8 H Plt Count (150 - 400 x10 3/uL) 115 L MPV (7.0 - 9.0 fL) 11.2 H Neut % (Auto) (56.0 - 77.0 %) 77.3 H Lymph % (Auto) (14.0 - 32.0 %) 9.5 L Nelson % (Auto) (4.8 - 9.0 %) 9.3 H Eos % (Auto) (0.3 - 3.7 %) 3.1 Baso % (Auto) (0.0 - 2.0 %) 0.2 Neut # (Auto) (2.0 - 7.6 x10 3/uL) 10.33 H Lymph # (Auto) (1.0 - 3.8 x10 3/uL) 1.27 Nelson # (Auto) (0.1 - 0.8 x10 3/uL) 1.24 H Eos # (Auto) (0.0 - 0.2 x10 3/uL) 0.42 H Baso # (Auto) (0.0 - 0.2 x10 3/uL) 0.03 Abs Immat Gran (auto) (0.00 - 0.03 x10 3/uL) 0. 08 H Add Manual Diff NO Immature Gran % (0.0 - 2.0 %) 0.6 Nucleated RBC % (0 - 0 %) 0.0 Nucleated RBCs # (Man) (0.0 - 0.1 x10 3/uL) 0.0 0 at 1301 RPT #:[id number] END OF REPORT 2022-10-14 [facility] 15:21:00-00:00 [facility] ([facility] Critical Care Progress Note REPORT#:[id number] REPORT STATUS: Signed DATE:10/14/22 TIME: 1521 PATIENT: SWEETIE AMAYA UNIT #: [id number] ROOM/BED: 2208-1 : 47 AGE: 77 SEX: F ATTEND: Bella Hoff MD ADM AUTHOR: Myles Aguayo MD * ALL edits or amendments must be made on the el [employer]/computer document * Subjective Chief complaint: Severe mitral regurgitation HPI: 77-year-old female with past medical history sig nificant for hypertension, dyslipidemia, paroxysmal atrial fibrilla tion, carotid stenosis status post CEA in 2020 was evaluated for shortness of b reath and dyspnea on exertion over the past several months. She denies any symptoms at rest. No angina symptoms were reported. Patient reported lower extremity weakn ess along with shortness of breath. She underwent echocardiogram in the outp atient setting that showed EF of 60 to 65% with a dilated left atrium, moderat e to severe mitral regurgitation. 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 There was possibility of chordae tendonee rupture evidence of trace tricuspid regurgitation with ascending aorta measuring 3.7 cm. Patient underwent left heart catheterization that showed no significant coronary artery disease. Patient underwent CT surgery evaluation for dre re mitral valve regurgitation for possible mitral valve replacement. P mirtha was brought to CVICU room #2208 oral intubated on the ventilator. She will be fa st-track for extubation. Comments: The patient offers no new complaints No SOB, on nasal cannula Paced Afebrile Review of Systems Free Text ROS Notes Free Text ROS Notes: 12 point Review of Systems was performed to the extent possible including discussion with the nursing staff and review of vital signs and all data. All systems negative other than pertinent negative/p ositive findings mentioned in the interval history section. Objective General VS/I O Last Documented: Result Date Time Pulse Ox 100 10/16 0745 O2 Delivery High flow nasal cannula 10/16 0745 O2 Flow Rate 1 10/16 0745 B/P 113/45 10/16 0500 B/P Mean 65 10/16 0500 Pulse 70 10/16 0500 Resp 23 10/16 0500 Temp 37.1 10/16 0400 FiO2 24 10/16 0255 24 hour I O ending at 0700: 10/16 0700 10/15 1900 Intake Total 700 240 Output Total 1250 1000 Balance -550 -760 Intake, Oral 700 240 Number 1 Bowel Movements Number Voids 2 Output, Urine 1250 1000 Patient 82.8 kg Weight Weight Bed scale Measurement Method PATIENT WEIGHT: Weight (lb): 182 Weight (oz): 8.68 Weight (kg): 82.800 Medications: Active Meds + DC'd Last 24 Hrs Ipratropium [employer] (ATROVENT) 500 MCG RTQ2H PRN PRN INH Cyanocobalamin (Vitamin B-12 500 mcg tab) 500 MC G DAILY PO Ferrous Sulfate (FERROUS SULFATE) 325 MG DAILY P O Bisacodyl (DULCOLAX) 10 MG ONCE PRN RECTAL Magnesium Hydroxide (MILK OF MAGNESIA) 30 ML ONC E PRN PO Tramadol HCl (ULTRAM) 25 MG QID PRN PO Captopril (CAPOTEN (NF)) 6.25 MG Q8HR PO Furosemide (LASIX 20MG INJ) 20 MG ONCE ONE IV (D C) Atorvastatin Calcium (LIPITOR) 40 MG 2100 PO Insulin Human Lispro (HUMALOG) 0 AC HS SUBQ Dextrose/Water (DEXTROSE 10% IN WATER) 125 ML DIR PRN IV (CKD) Dextrose/Water (DEXTROSE 10% IN WATER) 250 ML DIR PRN IV (CKD) Glucagon (GLUCAGON) 1 MG ASDIR PRN IM Mesalamine (DELZICOL 400MG CAP DR.) 800 MG BID P O Polyethylene Glycol (MIRALAX) 17 GM DAILY PO Melatonin (Melatonin) 6 MG BEDTIME PO Docusate Sodium (COLACE) 100 MG BID PO Gabapentin (NEURONTIN) 200 MG BID PO Sennosides (Senna Lax 8.6 MG TABLET) 17.2 MG BED TIME PO Oxycodone HCl (ROXICODONE) 5 MG Q4H PRN PRN PO Oxycodone HCl (ROXICODONE) 10 MG Q4H PRN PRN PO Aspirin (ASPIRIN) 81 MG DAILY PO Mupirocin (BACTROBAN 2% 22 GM OINTMENT) 1 APPLIC BID NASAL Ipratropium [employer] (ATROVENT) 500 MCG RTQ4H INH Acetaminophen (TYLENOL) 650 MG Q4H PRN PRN PO Acetaminophen (TYLENOL) 650 MG Q4H PRN PRN RECTA L Calcium Chloride (CALCIUM CHLORIDE) 1 GM ASDIR P RN IV Epinephrine (ADRENALIN CHLORIDE) 4 MG ASDIR IV Dextrose/Water (DEXTROSE 5% WATER) 246 ML Glucagon (GLUCAGON) 1 MG ASDIR PRN IM Magnesium Sulfate (MAGNESIUM SULFATE 4GM/SWFI 10 0ML) 100 ML ASDIR PRN IV Magnesium Sulfate (MAGNESIUM SULFATE 2GM/SWFI 50 ML) 50 ML ASDIR PRN IV Magnesium Sulfate/Dextrose (MAGNESIUM SULFATE 1G M/D5W 100ML) 100 ML ASDIR PRN IV Nitroglycerin/Dextrose (NITROGLYCERIN 50,000MCG/ D5W 250ML) 250 ML ASDIR IV Norepinephrine Bitartrate (NOREPINEPHRINE 8 MG/N S 250 ML) 250 ML TITRATE IV Ondansetron HCl (ZOFRAN) 4 MG Q6H PRN PRN IV Potassium Chloride (KCL 20MEQ/SWFI 100ML) 100 ML ASDIR PRN IV Sodium Bicarbonate (SODIUM BICARBONATE) 50 MEQ A SDIR PRN IV Sodium Chloride (SODIUM CHLORIDE 0.9%) 1,000 ML .Q20H IV Sodium Chloride (SODIUM CHLORIDE 0.9%) 250 ML Q2 4H IV Physical Exam Head/eyes: atraumatic, clear cornea, normocephal ic, PERRL ENT: intubated, normal nose, normal sinus Neck: non-tender, normal thyroid, no JVD, no mas ses or swelling Cardiovascular: rub, regular rate and rhythm, no rmal S1/S2 Respiratory: aerating well, clear to auscultatio n, symmetric expansion, no distress Abdomen: soft, non-tender, no distention, no gua rding Genitourinary: urinary catheter, no bladder dist ention, no flank pain Extremities: no clubbing, no cyanosis, no edema Skin: dry, normal color, normal temperature, no rash Results Findings/data: Laboratory Tests 10/14 0339 Blood Gas Puncture Site Art Line O2 Saturation (90 - 100 %) 93.5 ABG pH (7.35 - 7.45) 7.453 H ABG pCO2 (35.0 - 45 mmHg) 36.6 ABG pO2 (80 - 100.0 mmHg) 63.0 L ABG PO2/FiO2 Ratio (mm/Hg) 225.00 ABG HCO3 (22.0 - 26.0 MMOL/L) 25.7 ABG Total CO2 26.9 ABG Base Excess (-4.0 - 4.0 MMOL/L) 1.6 ABG Hematocrit (33.0 - 45.0 %) 31 L ABG Hemoglobin (11.0 - 15.0 G/DL) 10.7 L Sodium (134 - 147 mmol/L) 127 L Potassium (3.4 - 5.0 mmol/L) 5.1 H Chloride (100 - 108 mmol/L) 93 L Ionized Calcium (1.12 - 1.32 MMOL/L) 1.28 Temperature (F) 97.4 O2 Delivery Device Cannula FiO2 (%) 28 Laboratory Tests 10/14 10/14 10/14 10/14 10/13 1133 0802 0339 222 2014 Chemistry Sodium (134 - 147 mEq/L) 129 L Potassium (3.4 - 5.0 mEq/L) 4.9 Chloride (100 - 108 mEq/L) 97 L Carbon Dioxide (21 - 33 mEq/l) 28 Anion Gap (0 - 20) 10 BUN (7 - 18 mg/dL) 14 Creatinine (0.6 - 1.3 mg/dL) 0.8 POC Creatinine (0.6 - 1.0 mg/dL) 0.7 Glomerular Filtr Rate (70 - 80) 76.8 Glucose (70 - 110 mg/dL) 182 H POC Glucose (70 - 110 MG/DL) 140 H 167 H 160 H POC Glucose (mg/dL) (70 - 110 MG/DL) 186 H Calcium (8.0 - 10.5 mg/dL) 8.0 Magnesium (1.80 - 2.40 mg/dL) 1.90 Total Bilirubin (0.0 - 1.0 mg/dL) 0.70 Direct Bilirubin (0.0 - 0.30 MG/DL) 0.30 Indirect Bilirubin (MG/DL) 0.40 AST (15 - 37 IUnit/L) 29 ALT (30 - 65 IUnit/L) 18 L Total Alk Phosphatase (20 - 125 IUnit/L) 65 Total Protein (6.4 - 8.2 g/dL) 4.9 L Albumin (3.4 - 5.0 g/dL) 2.90 L 10/13 1620 Chemistry POC Glucose (70 - 110 MG/DL) 168 H Laboratory Tests 10/14 222 Hematology WBC (4.5 - 11.0 x10 3/uL) 16.8 H RBC (3.54 - 5.02 x10 6/uL) 2.67 L Hgb (11.0 - 15.0 g/dL) 7.6 L Hct (33.0 - 45.0 %) 22.5 L MCV (81.0 - 99.0 fL) 84.3 MCH (27.0 - 33.0 pg) 28.5 MCHC (33.0 - 37.0 g/dL) 33.8 RDW (11.5 - 14.5 %) 14.9 H Plt Count (150 - 400 x10 3/uL) 106 L MPV (7.0 - 9.0 fL) 10.8 H Neut % (Auto) (56.0 - 77.0 %) 81.2 H Lymph % (Auto) (14.0 - 32.0 %) 7.5 L Nelson % (Auto) (4.8 - 9.0 %) 9.6 H Eos % (Auto) (0.3 - 3.7 %) 1.0 Baso % (Auto) (0.0 - 2.0 %) 0.2 Neut # (Auto) (2.0 - 7.6 x10 3/uL) 13.68 H Lymph # (Auto) (1.0 - 3.8 x10 3/uL) 1.26 Nelson # (Auto) (0.1 - 0.8 x10 3/uL) 1.61 H Eos # (Auto) (0.0 - 0.2 x10 3/uL) 0.17 Baso # (Auto) (0.0 - 0.2 x10 3/uL) 0.03 Abs Immat Gran (auto) (0.00 - 0.03 x10 3/uL) 0. 09 H Add Manual Diff NO Immature Gran % (0.0 - 2.0 %) 0.5 Nucleated RBC % (0 - 0 %) 0.0 Nucleated RBCs # (Man) (0.0 - 0.1 x10 3/uL) 0.0 0 Laboratory Tests 10/14/22 0223: [Embedded Image Not Available] Microbiology: 10/11 1809 URINE: Urine Culture - COMP 10/11 1809 NASAL: MSSA Surveillance Screen - COM P 10/11 1809 NASAL: MRSA DNA Surveillance Screen - COMP 10/11 1646 NASAL: MSSA Surveillance Screen - ORD 10/11 1646 NASAL: MRSA DNA Surveillance Screen - ORD Radiology data Recent Impressions: RADIOLOGY - XR CHEST 1 V 10/14 0658 Report Impression - Status: SIGNED Entered: 10/14/2022 0953 IMPRESSION: 1. Lines and tubes, as above. 2. Slight interval worsening of bilateral pulmon danial opacities, with possibilities including any combination of atele ctatic change and/or pulmonary edema. Pneumonia is thought to be less likely, but not excluded. 3. Suspected small bilateral pleural effusions, similar to slightly increased in size. Impression By: [email or web address] Alejandro Mcguire Free Text Obj Notes Free Text Obj Notes: General appearance: Elderly female in no acute d istress, interactive and conversational HEENT: atraumatic, normocephalic, dry mucosal me mbranes Neck: full range of motion, supple/no meningismu s Cardiovascular: S1-S2 regular rate and rhythm, p acer dependent Respiratory: symmetric expansion, no acute respi ratory distress Abdomen: soft, non-tender, no distention, no gua rding Genitourinary: gonzales with clear urine Extremities: pedal pulses palpable, moves all, n o clubbing, no cyanosis, no edema Musculoskeletal: normal inspection, no muscle sp asm Neuro/CHARGING MANIPULATOR: Alert and oriented x3, CNII-XII gross ly intact, no motor deficits Skin: dry, intact and clean surgery dressing Diagnosis, Assessment Plan Free text A P: 77-year-old female with Dyspnea/Dyspnea on exertion Severe mitral regurgitation status post MVR on Acute pulmonary insufficiency following major ca rdiothoracic surgery Cardiogenic shock Acute blood loss anemia Metabolic acidosis Hypokalemia Assessment and Plan: Patient was received in room #2208 after mitral valve replacement for severe mitral regurgitation. Since she also underwent pulmonary vein isolatio n along with ligation of left atrial appendage. Patient received 27 mm mitral is bioprosthetic valve. She is currently a paced. Normal LV function. No parava lvular leak or regurgitation after replacement. PA pressures are at 39/19 mmH g. She is oral intubated with ET tube of 7.0 secured at 21 cm at the teeth. Pa tient received 1.2 L of crystalloids intraoperativel y along with 300 mL of Amicar, 430 mL of Cell Saver. She had 100 mL of EBL and 530 mL of urine outpu t. She is currently on norepinephrine at 1 and epinephrine at 3 mics. Patient received vancomycin and Ancef for antibiotic prophylaxis. She is currently on insulin at 6 units/h and the latest blood glucose is 180 mg/dL. She was f ound to be hypokalemic with a potassium of 3.4 and is receiving 40 mg of potas sium chloride intravenously. She also received 2 g of magnesium sulfate. Ches t tube output is 25 mL in the left pleural and 15 mL in the mediastinal chest tube. Pupils are 2 mm bilaterally symmetrical reactive to light. She i s currently on assist-control at 20 tidal volume 450 PEEP of 5 and 50% FiO2 and the latest blood gas shows a pH of 7.35, pCO2 of 40 mmHg, pO2 of 109 mmHg and bicarbonate of 22 mmol with base excess at -3.1. Creatinine 0.60 mg/dL, gluc ose 189 mg/dL, potassium 4.0 mmol, ionized calcium 1.37 mg/dL, hemoglobin 11. 1 g/dL with hematocrit of 33% and sodium 139. Currently sinus rhythm 80 A-pace d, blood pressure 129/47 mmHg and pulse ox 100% while on 50% FiO2. PA pressure is 39/19 mmHg. Sweetie Amaya is a 77-year-old female with past medical history significant for hypertension, dyslipidem ia, paroxysmal atrial fibrillation, carotid stenosis status post CEA in 2020 was evaluated for shortn ess of breath and dyspnea on exertion over the past several months. She denie s any symptoms at rest. No angina symptoms were reported. Patient r eported lower extremity weakness along with shortness of breath. She underwent echocard iogram in the outpatient setting that showed EF of 60 to 65% with a dilat ed left atrium, moderate to severe mitral regurgitation. 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 There was possibility of chordae tendonee ruptur e evidence of trace tricuspid regurgitation with ascending aorta measuring 3.7 cm. Patient underwent left heart catheterization that showed no significant coronary artery disease. Patient underwent CT surgery evaluation for dre re mitral valve regurgitation for possible mitral valve replacement. Alina shannon was brought to CVICU room #2208 oral intubated on the ventilator. She will be fa st-track for extubation. Post-op day 0 after mitral valve replacement for severe mitral regurgitation along with pulmonary vein isolation as well as l eft atrial appendecectomy Patient received 27 mm Mitris bioprosthetic valv e Patient is on elective ventilator depend ence for acute pulmonary insufficiency following major cardiothoracic surgery Currently on assist-control at 20 tidal volume 4 50 PEEP of 5 and 50% FiO2 Latest blood gas shows 7.35, pCO2 of 40 mmHg, pO2 of 109 mmHg and bicarbonate of 22 mmol with base excess at -3.1 Mild metabolic acidosis, give 1 amp of sodium bi carb Follow ABG Patient is altered at this time recovering from anesthesia She will be fast-track for extubate Monitor chest tube output Left pleural output is 25 mL and mediastinal out put is 15 mL Hypomagnesemia, patient received 2 g of magnesiu m sulfate Hypokalemia with a potassium of 3.4 mmol and pat ient receiving 40 mg of potassium chloride Glycemic control with insuli n at 6 units/h and latest blood glucose is 180 mg/dL Perioperative antibiotic therapy with vancomycin and Ancef Patient is currently on vaso pressor and inotropic support with norepinephrine at 1 mcg and epinephrine at 3 mcg Follow blood pressure closely Use albumin as needed No paravalvular leak or mitral regurgitation pos toperatively Normal LV function SCDs for DVT prophylaxis 10/13 Appears neuro intact, multimodal pain control Sats well after extubation, wean O2, encourage I -S, ABG and CXR reviewed BP control with nitroglyceri n drip, remains pacer dependent, keep AV pacing and stop beta-blockers and amiodarone per CT surgery Cr stable, good urine output, lactic acidosis cl eared s/p resuscitation Oral diet as tolerated, bowel regimen, trend LFT s, replete hypomagnesemia Leukocytosis with downtrending WBC, given periop antibiotics Hgb trending down, no evidence of active bleed, monitor CTs output Blood glucose control with insulin drip, transit ion to sliding scale insulin Encourage PT/OT and out of bed as tolerated, DVT prophylaxis with SCDs 10/14 Appears neuro intact, multimodal pain control Sats well on nasal cannula, wean O2, encourage I -S, ABG and CXR reviewed BP control controlled, remai ns pacer dependent, keep AV pacing and stay off beta -blockers and amiodarone per CT surgery Cr stable, good urine output Oral diet as tolerated, bowel regimen, trend LFT s, replete electrolytess Hgb trending down, no evidence of active bleed Blood glucose control with sliding scale insulin Encourage PT/OT and out of bed as tolerated, DVT prophylaxis with SCDs Discussed with CV surgery and ICU team Critical care time 34 minutes Consultants: cardiology, cardiovascular surgery, critical/clubhouse manager at 0803 RPT #:[id number] END OF REPORT 2022-10-14 [facility] 14:30:00-00:00 [facility] ([facility] Cardiothoracic Surgery Prog REPORT#:[id number] REPORT STATUS: Signed DATE:10/14/22 TIME: 1430 PATIENT: SWEETIE AMAYA UNIT #: [id number] ROOM/BED: [place] [id number] : 47 AGE: 77 SEX: F ATTEND: Bella Hoff MD ADM AUTHOR: Harriet Griffin Physic * ALL edits or amendments must be made on the [employer]/computer document * General Post-op: day 2 Status post: 10/12/22 PROCEDURES: 1. Mitral valve replacement (27 Mitris valve). 2. Pulmonary vein isolation. 3. Amputation of left atrial appendage. Subjective Chief complaint: Resting comfortable Denies complaints Status post MVR/PVI/a YUE Review of Systems All systems rev neg: except as marked Objective General VS/I O Last Documented: Result Date Time Pulse Ox 97 10/14 1405 O2 Delivery Nasal cannula 10/14 1405 O2 Flow Rate 3 10/14 1405 Temp 98.7 10/14 0800 B/P 148/50 10/14 0603 B/P Mean 74 10/14 0603 Pulse 80 10/14 0603 Resp 15 10/14 0603 FiO2 36 10/14 0336 24 hour I O ending at 0700: 10/14 0700 10/13 1900 Intake Total 1181.00 1327.00 Output Total 785 500 Balance 396.00 827.00 Intake, IV 681.00 427.00 Intake, Oral 500 800 Intake, Oral 100 Supplement Output, Chest 205 200 Tube Drainage Output, Urine 580 300 Patient 74.843 kg Weight PATIENT WEIGHT: Weight (lb): 165 Weight (oz): 5.55 Weight (kg): 74.843 Physical Exam General appearance: alert, awake, oriented Cardiovascular: regular rate rhythm, A paced Respiratory: aerating well Abdomen: soft, non-tender Genitourinary: gonzales Musculoskeletal: full range of motion Neuro/CHARGING MANIPULATOR: alert, oriented X 3 Skin: dry, intact Quality: Trauma Gen Surg Current Medications Current medication review: Current Medications Sig/Paulette Start time Last Medication Dose Route Stop Time Status Admin Ipratropium [employer] 500 MCG RTQ2H PRN PRN 10/15 1022 AC INH 11/14 1021 Cyanocobalamin 500 MCG DAILY 10/15 09 AC PO 11/14 0859 Ferrous Sulfate 325 MG DAILY 10/15 09 AC PO 11/14 0859 Bisacodyl 10 MG ONCE PRN 10/14 1200 AC RECTAL 11/13 1159 Magnesium Hydroxide 30 ML ONCE PRN 10/14 1200 AC PO Atorvastatin Calcium 40 MG 2100 10/13 2100 AC PO 11/12 205 Polyethylene Glycol 17 GM DAILY 10/13 0900 AC PO 11/12 0859 Vancomycin HCl 1,000 MG Q12H 10/12 223 CAN Sodium Chloride 250 ML IV 10/13 1129 Vancomycin HCl 1,000 MG Q12H 10/12 2230 AC Sodium Chloride 250 ML IV 10/13 1129 Atorvastatin Calcium 20 MG MoWeFr 10/12 2100 DC PO 11/11 205 Docusate Sodium 100 MG BID 10/12 2100 AC 10/12 PO 11/11 Gabapentin 200 MG BID 10/12 2100 AC 10/12 PO 10/17 091956 Metoprolol Tartrate 12.5 MG Q12HR 10/12 2100 AC PO 11/11 205 Sennosides 17.2 MG BEDTIME 10/12 2100 AC 10/12 PO 11/11 2058 195 Oxycodone HCl 5 MG Q4H PRN PRN 10/12 1745 AC PO 10/17 1744 Oxycodone HCl 10 MG Q4H PRN PRN 10/12 1745 AC PO 10/17 1744 Aspirin 81 MG DAILY 10/12 1622 AC 10/12 PO 11/11 1621 1742 Fentanyl Citrate 25 MCG ONCE ONE 10/12 1545 DC 10/12 IV 10/12 1546 1557 Amiodarone HCl 200 MG TID 10/12 1500 AC 10/12 PO 11/11 1459 1742 Mupirocin 1 APPLIC BID 10/12 1352 AC 10/12 NASAL 10/16 2101 1957 Albumin Human 250 ML Q1H 10/12 1350 DC 10/12 IV 10/12 1549 1400 Cefazolin Sodium 3 GM ONCE ONE 10/12 1315 AC Sodium Chloride 250 ML IV 10/13 0914 1729 Ipratropium [employer] 500 MCG RTQ4H 10/12 1200 AC 10/12 INH 10/15 1022 2005 Parenteral 1,000 ML .STK-MED ONE 10/12 1122 DC Electrolytes IV Potassium Chloride 200 ML .STK-MED ONE 10/12 10 45 DC IV Vancomycin HCl 0 .STK-MED ONE 10/12 1035 DC .ROUTE Acetaminophen 650 MG Q4H PRN PRN 10/12 1030 AC 10/12 PO 11/11 1029 1955 Acetaminophen 650 MG Q4H PRN PRN 10/12 1030 AC RECTAL 11/11 1029 Albumin Human 25 GM ASDIR PRN 10/12 1030 AC IV 10/13 1022 Calcium Chloride 1 GM ASDIR PRN 10/12 1030 AC IV 11/11 1029 Dextrose/Water 125 ML ASDIR PRN 10/12 1030 CKD IV 11/11 1029 Dextrose/Water 250 ML ASDIR PRN 10/12 1030 CKD IV 11/11 1029 Epinephrine 4 MG ASDIR 10/12 1030 AC Dextrose/Water 246 ML IV 11/11 1029 Glucagon 1 MG ASDIR PRN 10/12 1030 AC IM 11/11 1029 Insulin Human Regular 100 UNIT ASDIR 10/12 1030 CKD Sodium Chloride 99 ML IV 11/11 1029 Magnesium Sulfate 100 ML ASDIR PRN 10/12 1030 AC IV 11/11 1029 Magnesium Sulfate 50 ML ASDIR PRN 10/12 1030 AC IV 11/11 1029 Magnesium Sulfate/ 100 ML ASDIR PRN 10/12 1030 AC Dextrose IV 11/11 1029 Morphine Sulfate 4 MG Q2H PRN PRN 10/12 1030 DC IV 10/17 1029 Nitroglycerin/ 250 ML ASDIR 10/12 1030 AC Dextrose IV 11/11 1029 Norepinephrine 250 ML TITRATE 10/12 1030 AC Bitartrate IV 11/11 1029 Ondansetron HCl 4 MG Q6H PRN PRN 10/12 1030 AC IV 11/11 1029 Oxycodone HCl 5 MG Q4H PRN PRN 10/12 1030 DC PO 10/17 1029 Oxycodone HCl 10 MG Q4H PRN PRN 10/12 1030 DC 0 10/12 PO 10/17 1029 1745 Potassium Chloride 100 ML ASDIR PRN 10/12 1030 AC IV 11/11 1029 Sodium Bicarbonate 50 MEQ ASDIR PRN 10/12 1030 AC IV 11/11 1029 Sodium Chloride 1,000 ML .Q20H 10/12 1030 AC IV 11/11 1029 Sodium Chloride 250 ML Q24H 10/12 1030 AC IV 11/11 1029 Amiodarone HCl 0 .STK-MED ONE 10/12 1018 DC IV Metoclopramide HCl 0 .STK-MED ONE 10/12 09 DC .ROUTE Ondansetron HCl 0 .STK-MED ONE 10/12 929 DC .ROUTE Amlodipine Besylate 5 MG DAILY 10/12 0900 DC PO 11/11 0859 Aspirin 81 MG DAILY 10/12 09 DC PO 11/11 0859 Hydrochlorothiazide 12.5 MG DAILY 10/12 09 DC PO 11/11 0859 Lisinopril 20 MG DAILY 10/12 0900 DC Hydrochlorothiazide 12.5 MG PO 11/11 0859 Lisinopril 20 MG DAILY 10/12 0900 DC PO 11/11 0859 Metoprolol Succinate 50 MG DAILY 10/12 0900 CAN PO 11/11 0859 Mesalamine 800 MG AC BK DIN 10/12 0730 DC PO 11/11 0729 Fentanyl Citrate 0 .STK-MED ONE 10/12 06 DC IV Propofol 20 ML .STK-MED ONE 10/12 633 DC IV Dexamethasone Sodium 0 .STK-MED ONE 10/12 618 DC Phosphate .ROUTE Esmolol HCl 0 .STK-MED ONE 10/12 618 DC IV Lidocaine HCl 0 .STK-MED ONE 10/12 618 DC .ROUTE Ondansetron HCl 0 .STK-MED ONE 10/12 618 DC .ROUTE Rocuronium [employer] 0 .STK-MED ONE 10/12 618 DC IV Sodium Chloride 100 ML .STK-MED ONE 10/12 618 DC IV Pantoprazole 40 MG 0600 10/12 0600 DC 10/12 PO 11/11 0559 0512 Vancomycin HCl 0 .STK-MED ONE 10/12 0537 DC IV Cefazolin Sodium 0 .STK-MED ONE 10/12 05 DC .ROUTE Famotidine 0 .STK-MED ONE 10/12 534 DC IV Milrinone Lactate/ 0 .STK-MED ONE 10/12 534 DC Dextrose IV Protamine Sulfate 0 .STK-MED ONE 10/12 0435 DC IV Sodium Chloride 250 ML .STK-MED ONE 10/12 0435 DC IV Epinephrine HCl 250 ML .STK-MED ONE 10/12 533 DC IV Insulin Human Regular 100 ML .STK-MED ONE 10/12 533 DC IV Aminocaproic Acid 0 .STK-MED ONE 10/12 532 DC IV Heparin Sodium 0 .STK-MED ONE 10/12 532 DC .ROUTE Nitroglycerin/ 250 ML .STK-MED ONE 10/12 532 D C Dextrose IV Norepinephrine 250 ML .STK-MED ONE 10/12 532 D C Bitartrate IV Ropivacaine 0 .STK-MED ONE 10/12 532 DC .ROUTE Calcium Chloride 0 .STK-MED ONE 10/12 0432 DC IV Magnesium Sulfate 0 .STK-MED ONE 10/12 0532 DC .ROUTE Lactated Ringer's 1,000 ML PREOP ONCALL 10/12 0 530 DC IV 11/11 2359 Lidocaine HCl 2 ML PREOP ONCALL 10/12 0530 DC LOCAL 11/11 2359 Lidocaine HCl 2 ML PREOP ONCALL 10/12 0530 DC LOCAL 11/11 2359 Sodium Chloride 500 ML PREOP ONCALL 10/12 0530 DC IV 11/11 2359 Sodium Chloride 5 ML ASDIR PRN 10/12 0530 DC IV 11/11 0529 Sodium Chloride 10 ML ASDIR PRN 10/12 0530 DC IV 11/11 0529 Sodium Chloride 250 ML ASDIR PRN 10/12 0530 DC IV 11/11 0529 Clindamycin 50 ML PREOP ONCALL 10/12 0500 DC Phosphate/Dextrose IV 10/12 2359 Metoprolol Tartrate 6.25 MG ONCE ONE 10/12 0500 DC PO 10/12 0501 Vancomycin HCl 1,250 MG PREOP ONCALL 10/12 0500 DC Sodium Chloride 250 ML IV 10/12 2359 Albumin Human 100 ML .STK-MED ONE 10/12 045 DC IV Heparin Sodium 0 .STK-MED ONE 10/12 045 DC .ROUTE Sodium Chloride 100 ML .STK-MED ONE 10/12 454 DC IV Lidocaine HCl 0 .STK-MED ONE 10/12 453 DC IV Sodium Bicarbonate 0 .STK-MED ONE 10/12 453 DC IV Magnesium Sulfate 0 .STK-MED ONE 10/12 452 DC IV Phenylephrine HCl 0 .STK-MED ONE 10/12 045 DC .ROUTE Acetaminophen 650 MG Q6H PRN PRN 10/11 2115 DC 10/11 PO 11/10 Gabapentin 600 MG BEDTIME 10/11 2100 DC 10/11 PO 11/10 Melatonin 5 MG BEDTIME 10/11 2100 DC 10/11 PO 11/10 Acetaminophen 1,000 MG PREOP ONCALL 10/11 1700 DC 10/12 PO 11/10 165 06 Gabapentin 200 MG PREOP ONCALL 10/11 1700 DC PO 11/10 2358 0604 Atropine Sulfate 0.5 MG ASDIR PRN 10/11 1400 DC IV 10/12 1357 Sodium Chloride 500 ML ASDIR PRN 10/11 1400 DC IV 10/12 1357 Home Medications: MELATONIN 5 MG PO BEDTIME MESALAMINE ER (APRISO) 1.5 GM PO DAILY LISINOPRIL/HCTZ (ZESTORETIC 20/12.5 MG) 1 TAB PO DAILY amLODIPine (NORVASC) 5 MG PO DAILY OMEPRAZOLE ER (PriLOSEC) 40 MG PO DAILY ASPIRIN 81 MG PO DAILY METOPROLOL SUCC XL (TOPROL XL) 50 MG PO DAILY ATORVASTATIN (LIPITOR) 20 MG PO 3X WEEKLY ASCORBIC ACID (VITAMIN C) 1,000 MG PO DAILY CHOLECALCIFEROL (VITAMIN D3) (VITAMIN D3) 1,000 UNITS PO DAILY LACTOBACILLUS ACIDOPHILUS (PROBIOTIC ACIDOPHILUS ) 1 CAP PO DAILY BIOTIN 10 MG PO DAILY GABAPENTIN (NEURONTIN) 600 MG PO BEDTIME I attest that the foregoing medication list in [facility] medical record is true, accurate, and complete to the best of my knowled ge. Diagnosis, Assessment Plan Free Text A P: This is a 77-year with a past medical history of new diagnosis of atrial fibrilation, hypertension, hyperlipidemia, carot id stenosis status post right carotid endarterectomy 2020, who presented as an outpatient for evaluation of increased shortness of breath over the past dre ral months. She reports most of her symptoms are wit h exertion. She denies any symptoms at rest. She denies any chest pains. She reports only recently being diagnose d with Atrial fibrillaiton. She denies takign any furhter anticoagulation. She also reports lower extremity weakness with h er shortness of breath. The patient underwent echocardiogram in the outpatient setting. By report this showed EF 60 to 65%, dilated LA, moderate to sev ere MR. 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 Trace T R, ascending aorta measurement 3.7 cm. Patient underwent left heart catheterization ger[facility] no significant carotid artery stenosis. Review of the patient's records show patient als o had a carotid Doppler completed on May 2022 showing less than 50% st enosis in the left internal carotid artery CV surgery consulted for evaluation of severe mi tral valve regurgitation for possible mitral valve repair versus replacement Assessment/plan 1. Dyspnea on exertion Likely secondary to severe MR 2.Severe MR 3. Hypertension 4. Dyslipidemia 5. Atrial fibrilation. Patient reports a rather active lifestyle workin g in her yard frequently. However since the past several months her increa sed dyspnea on exertion has caused her decrease her activity. Patient has no lower extremity edema. Patient was seen and examined at [facility]. Mitral valve replacement versus repair was discussed with the patient. Patient is not on any blood thinners Coronary angiogramtoday showed no obstructive co ronary artery disease We will begin work-up for mi tral valve repair repair versus replacement, PVI and ALAA 10/12/22 PROCEDURES: 1. Mitral valve replacement (27 Mitris valve). 2. Pulmonary vein isolation. 3. Amputation of left atrial appendage. 10/13/22 POD 1 POD AAOx3 Respiratory: On 3 L nasal cannula, wean as martin ated, Encourage IS, Deep Breathing, CXR reviewed chest tube drainage 160 mediastina l. Left pleural 90 Chest tubes in today. Reassess after walking Cardiac: Asystole underlying. Atrial paced V sen sed. On nitro drip for hypertension. GI: Continue Bowel regimen, gas? : Gonzales in place UO:500 Continue PT/OT, out of bed walking the unit DVT prophylaxis SCDs in place Labs reveiwed- replace electrolytes as needed Patient seen and examined by Dr. Carey. Plan o f care discussed with multidisciplinary team MARCOS Gilliland, stop beta-milla due to asystole. 10/14/22 POD 2 AAOx3 Respiratory: On 2 L nasal cannula, wean as martin ated, Encourage IS, Deep Breathing, CXR reviewed. DC chest tubes today Chest tubes in today. Reassess after walking Cardiac: Asystole underlying. Atrial paced V sen sed. Hold beta-blockers and amiodarone Start JENNIFER inhibitor for blood pressure control GI: Continue Bowel regimen, gas+ : Gonzales in place UO:[id number] Continue PT/OT, out of bed walking the unit DVT prophylaxis SCDs in place Labs reveiwed- replace electrolytes as needed Patient seen and examined by Dr. Carey. Plan o f care discussed with multidisciplinary team Consultants: cardiology, cardiovascular surgery, critical/clubhouse manager at 1433 at 0646 RPT #:[id number] END OF REPORT 2022-10-14 [facility] 12:43:00-00:00 [facility] Hospitalist Progress Note REPORT#:[id number] REPORT STATUS: Signed DATE:10/14/22 TIME: 1243 PATIENT: SWEETIE AMAYA UNIT #: [id number] ROOM/BED: [place] [id number] : 47 AGE: 77 SEX: F ATTEND: Bella Hoff MD ADM AUTHOR: Nina Melgar MD * ALL edits or amendments must be made on the [employer]/computer document * Subjective Chief complaint: she sit on the chair . drainage tube are out . 1. Mitral valve replacement 2. Pulmonary vein isolation. 3. Amputation of left atrial appendage. HPI: 77 YO female with PMHx of hy pertension, hyperlipidemia, carotid artery disease s /p R CEA was admitted to the hospital for mitral valve surgery . she has been progressively worsening of s ob . she was found severe mitral valve regurgitation . LHC was done . it show no blockage . she had mitral valve surgery today . she was seen in CVICU post procedure . she was intub ated on the vent support . 2 drainage tube are in place . history is obtained from staff and review the chart . Review of Systems Constitutional: Denies: fever, lethargy. Respiratory: Denies: SOB, wheezing. Cardiovascular: Denies: edema, palpitations. GI: Denies: abdominal pain, nausea, vomiting. : Denies: hematuria. Objective General VS/I O: Vital Signs: Date Time Temp Pulse Resp B/P B/P Pulse O2 O2 F low FiO2 Mean Ox Delivery Rate 10/14 0805 98 Nasal 3 cannula 10/14 0800 37.1 07/ 0603 80 15 148/50 74 99 07/21 0600 80 14 146/49 73 99 07/21 0545 80 14 136/48 70 98 07/21 0535 80 15 134/47 70 97 07/21 0530 80 18 124/46 66 96 07/21 0515 80 17 125/46 65 96 07/21 0513 80 21 133/45 66 96 07/21 0500 80 25 133/48 70 97 07/21 0445 80 22 114/42 60 97 07/21 0430 80 15 143/52 74 98 07/21 0415 80 15 140/50 71 98 07/21 0407 80 24 147/52 74 98 07/21 0400 36.3 Nasal 4 cannula 07/21 0400 80 18 146/52 74 98 07/21 0345 80 22 139/49 70 97 07/21 0336 96 Nasal 4 36 cannula 07/21 0330 80 24 127/44 63 96 07/21 0315 80 30 137/49 70 96 07/21 0300 80 31 144/51 73 98 07/21 0245 80 26 154/55 78 98 07/21 0230 80 29 145/49 72 98 07/21 0215 80 36 129/43 63 95 07/21 0201 80 32 142/52 72 97 07/21 0200 80 24 141/51 71 97 07/21 0145 80 20 143/52 72 97 07/21 0130 80 18 143/52 73 97 07/21 0115 80 22 145/52 73 96 07/21 0100 80 15 144/52 72 97 07/21 0045 80 14 141/52 72 95 07/21 0030 80 13 126/43 63 97 07/21 0015 80 14 128/43 63 97 07/21 0005 80 16 128/46 65 96 07/21 0000 36.3 Nasal 3 cannula 07/21 0000 80 15 144/49 72 97 07/20 2202 80 29 131/51 72 96 07/20 2200 80 19 126/49 69 96 07/20 2145 80 24 138/52 74 96 07/20 2130 80 26 138/52 74 96 07/20 2115 80 17 138/52 73 96 07/20 2100 135/61 88 07/20 2100 80 15 151/56 79 96 07/20 2045 80 14 150/55 77 96 07/20 2029 80 16 147/52 73 96 07/20 2028 96 Nasal 2 28 cannula 07/20 2014 80 27 146/51 72 96 07/20 1999 80 20 159/58 80 96 07/20 1956 36.4 Nasal 3 40 cannula 07/20 195 80 22 161/60 83 96 07/20 1945 80 15 156/59 81 96 07/20 1930 80 18 165/59 84 96 07/20 1915 80 31 156/55 80 96 07/20 1900 80 25 166/58 83 97 07/20 1845 80 26 154/56 81 96 07/20 1833 80 26 157/54 79 97 07/20 1830 80 35 159/54 78 96 07/20 1815 80 22 167/59 84 96 07/20 1800 129/62 87 07/20 1800 37.5 80 18 162/58 80 96 07/20 1745 37.3 80 20 161/58 80 96 07/20 1730 37.2 80 32 152/52 73 96 07/20 1715 37.2 80 16 160/58 80 97 07/20 1706 37.2 07/20 1706 80 19 160/58 80 97 07/20 1700 129/60 86 07/20 1700 37.2 80 21 160/59 80 97 07/20 1645 37.3 80 17 167/60 84 96 07/20 1630 37.2 80 21 176/61 88 97 07/20 1615 37.3 80 22 163/60 86 98 07/20 1600 37.3 80 20 169/60 84 96 07/20 1545 37.3 80 19 162/58 82 96 07/20 1530 37.2 80 30 153/55 76 96 07/20 1521 96 High flow 2 nasal cannula 07/20 1515 37.1 80 26 154/54 75 96 07/20 1500 37.2 80 19 156/58 79 97 07/20 1445 37.2 80 18 158/59 81 97 10/13 1430 37.1 80 20 158/58 80 97 10/13 1415 37.1 80 16 171/61 86 97 10/13 1400 37.1 80 17 165/59 84 98 10/13 1345 37.1 80 18 157/55 77 97 10/13 1330 37.1 80 18 310/310 310 96 10/13 1315 37.0 80 18 165/66 94 97 10/13 1300 37.1 80 18 160/114 123 98 10/13 1245 37.0 80 23 136/124 128 98 24 hour I O ending at 0700: 10/14 0700 10/13 1900 Intake Total 1181.00 1327.00 Output Total 785 500 Balance 396.00 827.00 Intake, IV 681.00 427.00 Intake, Oral 500 800 Intake, Oral 100 Supplement Output, Chest 205 200 Tube Drainage Output, Urine 580 300 Patient 74.843 kg Weight PATIENT WEIGHT: Weight (lb): 165 Weight (oz): 5.55 Weight (kg): 74.843 Medications: Active Meds + DC'd Last 24 Hrs Ipratropium [employer] (ATROVENT) 500 MCG RTQ2H PRN PRN INH Cyanocobalamin (Vitamin B-12 500 mcg tab) 500 MC G DAILY PO Ferrous Sulfate (FERROUS SULFATE) 325 MG DAILY P O Bisacodyl (DULCOLAX) 10 MG ONCE PRN RECTAL Magnesium Hydroxide (MILK OF MAGNESIA) 30 ML ONC E PRN PO Tramadol HCl (ULTRAM) 25 MG QID PRN PO Captopril (CAPOTEN (NF)) 6.25 MG Q8HR PO Furosemide (LASIX 20MG INJ) 20 MG ONCE ONE IV ( DC) Atorvastatin Calcium (LIPITOR) 40 MG 2100 PO Insulin Human Lispro (HUMALOG) 0 AC HS SUBQ Dextrose/Water (DEXTROSE 10% IN WATER) 125 ML DIR PRN IV (CKD) Dextrose/Water (DEXTROSE 10% IN WATER) 250 ML DIR PRN IV (CKD) Glucagon (GLUCAGON) 1 MG ASDIR PRN IM Mesalamine (DELZICOL 400MG CAP DR.) 800 MG BID P O Polyethylene Glycol (MIRALAX) 17 GM DAILY PO Melatonin (Melatonin) 6 MG BEDTIME PO Docusate Sodium (COLACE) 100 MG BID PO Gabapentin (NEURONTIN) 200 MG BID PO Sennosides (Senna Lax 8.6 MG TABLET) 17.2 MG BED TIME PO Oxycodone HCl (ROXICODONE) 5 MG Q4H PRN PRN PO Oxycodone HCl (ROXICODONE) 10 MG Q4H PRN PRN PO Aspirin (ASPIRIN) 81 MG DAILY PO Mupirocin (BACTROBAN 2% 22 GM OINTMENT) 1 APPLIC BID NASAL Ipratropium [employer] (ATROVENT) 500 MCG RTQ4H INH Acetaminophen (TYLENOL) 650 MG Q4H PRN PRN PO Acetaminophen (TYLENOL) 650 MG Q4H PRN PRN RECTA L Calcium Chloride (CALCIUM CHLORIDE) 1 GM ASDIR P RN IV Epinephrine (ADRENALIN CHLORIDE) 4 MG ASDIR IV Dextrose/Water (DEXTROSE 5% WATER) 246 ML Glucagon (GLUCAGON) 1 MG ASDIR PRN IM Magnesium Sulfate (MAGNESIUM SULFATE 4GM/SWFI 10 0ML) 100 ML ASDIR PRN IV Magnesium Sulfate (MAGNESIUM SULFATE 2GM/SWFI 50 ML) 50 ML ASDIR PRN IV Magnesium Sulfate/Dextrose (MAGNESIUM SULFATE 1G M/D5W 100ML) 100 ML ASDIR PRN IV Nitroglycerin/Dextrose (NITROGLYCERIN 50,000MCG/ D5W 250ML) 250 ML ASDIR IV Norepinephrine Bitartrate (NOREPINEPHRINE 8 MG/N S 250 ML) 250 ML TITRATE IV Ondansetron HCl (ZOFRAN) 4 MG Q6H PRN PRN IV Potassium Chloride (KCL 20MEQ/SWFI 100ML) 100 ML ASDIR PRN IV Sodium Bicarbonate (SODIUM BICARBONATE) 50 MEQ A SDIR PRN IV Sodium Chloride (SODIUM CHLORIDE 0.9%) 1,000 ML .Q20H IV Sodium Chloride (SODIUM CHLORIDE 0.9%) 250 ML Q2 4H IV Physical Exam General appearance: alert, awake, oriented Head/Eyes: atraumatic, normal conjunctiva/sclera , normal eyelids/periorb. ENT: intubated Neck: full range of motion, non-tender Cardiovascular: normal heart sounds, regular rat e rhythm Respiratory: clear to auscultation Abdomen: non-tender, normal bowel sounds, soft, no distention Extremities: no edema Neuro/CHARGING MANIPULATOR: alert, oriented X 3, CNII-XII intact, normal speech, no motor deficits, no sensory deficits Results Findings/Data: Laboratory Tests 10/14 0339 Blood Gas Puncture Site Art Line O2 Saturation (90 - 100 %) 93.5 ABG pH (7.35 - 7.45) 7.453 H ABG pCO2 (35.0 - 45 mmHg) 36.6 ABG pO2 (80 - 100.0 mmHg) 63.0 L ABG PO2/FiO2 Ratio (mm/Hg) 225.00 ABG HCO3 (22.0 - 26.0 MMOL/L) 25.7 ABG Total CO2 26.9 ABG Base Excess (-4.0 - 4.0 MMOL/L) 1.6 ABG Hematocrit (33.0 - 45.0 %) 31 L ABG Hemoglobin (11.0 - 15.0 G/DL) 10.7 L Sodium (134 - 147 mmol/L) 127 L Potassium (3.4 - 5.0 mmol/L) 5.1 H Chloride (100 - 108 mmol/L) 93 L Ionized Calcium (1.12 - 1.32 MMOL/L) 1.28 Temperature (F) 97.4 O2 Delivery Device Cannula FiO2 (%) 28 Laboratory Tests 10/14 10/14 10/14 10/14 10/13 1133 0802 0339 222 2014 Chemistry Sodium (134 - 147 mEq/L) 129 L Potassium (3.4 - 5.0 mEq/L) 4.9 Chloride (100 - 108 mEq/L) 97 L Carbon Dioxide (21 - 33 mEq/l) 28 Anion Gap (0 - 20) 10 BUN (7 - 18 mg/dL) 14 Creatinine (0.6 - 1.3 mg/dL) 0.8 POC Creatinine (0.6 - 1.0 mg/dL) 0.7 Glomerular Filtr Rate (70 - 80) 76.8 Glucose (70 - 110 mg/dL) 182 H POC Glucose (70 - 110 MG/DL) 140 H 167 H 160 H POC Glucose (mg/dL) (70 - 110 MG/DL) 186 H Calcium (8.0 - 10.5 mg/dL) 8.0 Magnesium (1.80 - 2.40 mg/dL) 1.90 Total Bilirubin (0.0 - 1.0 mg/dL) 0.70 Direct Bilirubin (0.0 - 0.30 MG/DL) 0.30 Indirect Bilirubin (MG/DL) 0.40 AST (15 - 37 IUnit/L) 29 ALT (30 - 65 IUnit/L) 18 L Total Alk Phosphatase (20 - 125 65 IUnit/L) Total Protein (6.4 - 8.2 g/dL) 4.9 L Albumin (3.4 - 5.0 g/dL) 2.90 L Laboratory Tests 10/14 0223 Hematology WBC (4.5 - 11.0 x10 3/uL) 16.8 H RBC (3.54 - 5.02 x10 6/uL) 2.67 L Hgb (11.0 - 15.0 g/dL) 7.6 L Hct (33.0 - 45.0 %) 22.5 L MCV (81.0 - 99.0 fL) 84.3 MCH (27.0 - 33.0 pg) 28.5 MCHC (33.0 - 37.0 g/dL) 33.8 RDW (11.5 - 14.5 %) 14.9 H Plt Count (150 - 400 x10 3/uL) 106 L MPV (7.0 - 9.0 fL) 10.8 H Neut % (Auto) (56.0 - 77.0 %) 81.2 H Lymph % (Auto) (14.0 - 32.0 %) 7.5 L Nelson % (Auto) (4.8 - 9.0 %) 9.6 H Eos % (Auto) (0.3 - 3.7 %) 1.0 Baso % (Auto) (0.0 - 2.0 %) 0.2 Neut # (Auto) (2.0 - 7.6 x10 3/uL) 13.68 H Lymph # (Auto) (1.0 - 3.8 x10 3/uL) 1.26 Nelson # (Auto) (0.1 - 0.8 x10 3/uL) 1.61 H Eos # (Auto) (0.0 - 0.2 x10 3/uL) 0.17 Baso # (Auto) (0.0 - 0.2 x10 3/uL) 0.03 Abs Immat Gran (auto) (0.00 - 0.03 x10 3/uL) 0 .09 H Add Manual Diff NO Immature Gran % (0.0 - 2.0 %) 0.5 Nucleated RBC % (0 - 0 %) 0.0 Nucleated RBCs # (Man) (0.0 - 0.1 x10 3/uL) 0.0 0 Radiology data: Recent Impressions: RADIOLOGY - XR CHEST 1 V 10/14 0558 Report Impression - Status: SIGNED Entered: 10/14/2022 0953 IMPRESSION: 1. Lines and tubes, as above. 2. Slight interval worsening of bilateral pulmon danial opacities, with possibilities including any combination of atele ctatic change and/or pulmonary edema. Pneumonia is thought to be less likely, but not excluded. 3. Suspected small bilateral pleural effusions, similar to slightly increased in size. Impression By: [email or web address] - Alejandro Zimmer Diagnosis, Assessment Plan Consultants: cardiology, cardiovascular surgery, critical/clubhouse manager Free Text DxA P Notes Free text DxA P notes: acute respiratory failure --post procedure severe mitral valve regurgitation HTN HLD CHF -- diastolic intubated on the vent support --post procedure post mitral valve surgery HTN -- on metoprolol monitor BP HLD --lipitor cardiology consult CV surgeon consult critial care consult monitor in the CVICU 1. Mitral valve replacement (27 Mitris valve). 2. Pulmonary vein isolation. 3. Amputation of left atrial appendage. 10/13- she was extubated yesterday she sit on the chair no sob [address] -- she is hemodynamic stable --review lab and image -- case is discussed with nurse 10/14- she sit on the chair -- drainage tube are out -- she feel better -- she is hemodynamic stable -- continue PT/OT continue monitor in CVICU -- review all lab and image Quality: [facility] Crit Care Current Medications Current medication review: Current Medications Sig/Paulette Start time Last Medication Dose Route Stop Time Status Admin Ipratropium [employer] 500 MCG RTQ2H PRN PRN 10/15 1022 AC INH 11/14 1021 Cyanocobalamin 500 MCG DAILY 10/15 0900 AC PO 11/14 0859 Ferrous Sulfate 325 MG DAILY 10/15 09 AC PO 11/14 0859 Bisacodyl 10 MG ONCE PRN 10/14 1200 AC RECTAL 11/13 1159 Magnesium Hydroxide 30 ML ONCE PRN 10/14 1200 A C PO Atorvastatin Calcium 40 MG 2100 10/13 2100 AC PO 11/12 2058 Polyethylene Glycol 17 GM DAILY 10/13 0900 AC PO 11/12 0859 Vancomycin HCl 1,000 MG Q12H 10/12 2230 CAN Sodium Chloride 250 ML IV 10/13 1129 Vancomycin HCl 1,000 MG Q12H 10/12 2230 AC Sodium Chloride 250 ML IV 10/13 1129 Atorvastatin Calcium 20 MG MoWeFr 10/12 2100 DC PO 11/11 2058 Docusate Sodium 100 MG BID 10/12 2099 AC 10/12 PO 11/11 2058 195 Gabapentin 200 MG BID 10/12 2100 AC 10/12 PO 10/17 0901 195 Metoprolol Tartrate 12.5 MG Q12HR 10/12 2100 AC PO 11/11 2058 Sennosides 17.2 MG BEDTIME 10/12 2099 AC 10/12 PO 11/11 2058 195 Oxycodone HCl 5 MG Q4H PRN PRN 10/12 1745 AC PO 10/17 1744 Oxycodone HCl 10 MG Q4H PRN PRN 10/12 1745 AC PO 10/17 1744 Aspirin 81 MG DAILY 10/12 1622 AC 10/12 PO 11/11 1621 1742 Fentanyl Citrate 25 MCG ONCE ONE 10/12 1545 DC 10/12 IV 10/12 1546 1557 Amiodarone HCl 200 MG TID 10/12 1500 AC 10/12 PO 11/11 1459 1742 Mupirocin 1 APPLIC BID 10/12 1352 AC 10/12 NASAL 10/16 210 1957 Albumin Human 250 ML Q1H 10/12 1350 DC 10/12 IV 10/12 1549 1400 Cefazolin Sodium 3 GM ONCE ONE 10/12 1315 AC Sodium Chloride 250 ML IV 10/13 0914 1729 Ipratropium [employer] 500 MCG RTQ4H 10/12 1200 A C 10/12 INH 10/15 1022 2005 Parenteral 1,000 ML .STK-MED ONE 10/12 1122 DC Electrolytes IV Potassium Chloride 200 ML .STK-MED ONE 10/12 10 45 DC IV Vancomycin HCl 0 .STK-MED ONE 10/12 1035 DC .ROUTE Acetaminophen 650 MG Q4H PRN PRN 10/12 1030 AC 10/12 PO 11/11 1029 1955 Acetaminophen 650 MG Q4H PRN PRN 10/12 1030 AC RECTAL 11/11 1029 Albumin Human 25 GM ASDIR PRN 10/12 1030 AC IV 10/13 1022 Calcium Chloride 1 GM ASDIR PRN 10/12 1030 AC IV 11/11 1029 Dextrose/Water 125 ML ASDIR PRN 10/12 1030 CKD IV 11/11 1029 Dextrose/Water 250 ML ASDIR PRN 10/12 1030 CKD IV 11/11 1029 Epinephrine 4 MG ASDIR 10/12 1030 AC Dextrose/Water 246 ML IV 11/11 1029 Glucagon 1 MG ASDIR PRN 10/12 1030 AC IM 11/11 1029 Insulin Human Regular 100 UNIT ASDIR 10/12 1030 CKD Sodium Chloride 99 ML IV 11/11 1029 Magnesium Sulfate 100 ML ASDIR PRN 10/12 1030 A C IV 11/11 1029 Magnesium Sulfate 50 ML ASDIR PRN 10/12 1030 AC IV 11/11 1029 Magnesium Sulfate/ 100 ML ASDIR PRN 10/12 1030 AC Dextrose IV 11/11 1029 Morphine Sulfate 4 MG Q2H PRN PRN 10/12 1030 DC IV 10/17 1029 Nitroglycerin/ 250 ML ASDIR 10/12 1030 AC Dextrose IV 11/11 1029 Norepinephrine 250 ML TITRATE 10/12 1030 AC Bitartrate IV 11/11 1029 Ondansetron HCl 4 MG Q6H PRN PRN 10/12 1030 AC IV 11/11 1029 Oxycodone HCl 5 MG Q4H PRN PRN 10/12 1030 DC PO 10/17 1029 Oxycodone HCl 10 MG Q4H PRN PRN 10/12 1030 DC 0 10/12 PO 10/17 1029 1745 Potassium Chloride 100 ML ASDIR PRN 10/12 1030 AC IV 11/11 1029 Sodium Bicarbonate 50 MEQ ASDIR PRN 10/12 1030 AC IV 11/11 1029 Sodium Chloride 1,000 ML .Q20H 10/12 1030 AC IV 11/11 1029 Sodium Chloride 250 ML Q24H 10/12 1030 AC IV 11/11 1029 Amiodarone HCl 0 .STK-MED ONE 10/12 1018 DC IV Metoclopramide HCl 0 .STK-MED ONE 10/12 0930 DC .ROUTE Ondansetron HCl 0 .STK-MED ONE 10/12 929 DC .ROUTE Amlodipine Besylate 5 MG DAILY 10/12 899 DC PO 11/11 08 Aspirin 81 MG DAILY 10/12 899 DC PO 11/11 08 Hydrochlorothiazide 12.5 MG DAILY 10/12 899 DC PO 11/11 0859 Lisinopril 20 MG DAILY 10/12 899 DC Hydrochlorothiazide 12.5 MG PO 11/11 858 Lisinopril 20 MG DAILY 10/12 899 DC PO 11/11 0859 Metoprolol Succinate 50 MG DAILY 10/12 899 CA N PO 11/11 08 Mesalamine 800 MG AC BK DIN 10/12 729 DC PO 11/11 728 Fentanyl Citrate 0 .STK-MED ONE 10/12 633 DC IV Propofol 20 ML .STK-MED ONE 10/12 633 DC IV Dexamethasone Sodium 0 .STK-MED ONE 10/12 618 DC Phosphate .ROUTE Esmolol HCl 0 .STK-MED ONE 10/12 618 DC IV Lidocaine HCl 0 .STK-MED ONE 10/12 618 DC .ROUTE Ondansetron HCl 0 .STK-MED ONE 10/12 618 DC .ROUTE Rocuronium [employer] 0 .STK-MED ONE 10/12 618 DC IV Sodium Chloride 100 ML .STK-MED ONE 10/12 618 DC IV Pantoprazole 40 MG 0600 10/12 599 DC 10/12 PO 11/11 0559 0512 Vancomycin HCl 0 .STK-MED ONE 10/12 536 DC IV Cefazolin Sodium 0 .STK-MED ONE 10/12 534 DC .ROUTE Famotidine 0 .STK-MED ONE 10/12 534 DC IV Milrinone Lactate/ 0 .STK-MED ONE 10/12 534 DC Dextrose IV Protamine Sulfate 0 .STK-MED ONE 10/12 534 DC IV Sodium Chloride 250 ML .STK-MED ONE 10/12 534 DC IV Epinephrine HCl 250 ML .STK-MED ONE 10/12 533 DC IV Insulin Human Regular 100 ML .STK-MED ONE 10/12 533 DC IV Aminocaproic Acid 0 .STK-MED ONE 10/12 532 DC IV Heparin Sodium 0 .STK-MED ONE 10/12 532 DC .ROUTE Nitroglycerin/ 250 ML .STK-MED ONE 07/19 0533 D C Dextrose IV Norepinephrine 250 ML .STK-MED ONE 10/12 0533 D C Bitartrate IV Ropivacaine 0 .STK-MED ONE 10/12 05 DC .ROUTE Calcium Chloride 0 .STK-MED ONE 10/12 0532 DC IV Magnesium Sulfate 0 .STK-MED ONE 10/12 0532 DC .ROUTE Lactated Ringer's 1,000 ML PREOP ONCALL 10/12 0 530 DC IV 11/11 2359 Lidocaine HCl 2 ML PREOP ONCALL 10/12 0530 DC LOCAL 11/11 2359 Lidocaine HCl 2 ML PREOP ONCALL 10/12 0530 DC LOCAL 11/11 2359 Sodium Chloride 500 ML PREOP ONCALL 10/12 0530 DC IV 11/11 2359 Sodium Chloride 5 ML ASDIR PRN 10/12 0530 DC IV 11/11 0529 Sodium Chloride 10 ML ASDIR PRN 10/12 0530 DC IV 11/11 0529 Sodium Chloride 250 ML ASDIR PRN 10/12 0530 DC IV 11/11 0529 Clindamycin 50 ML PREOP ONCALL 10/12 0500 DC Phosphate/Dextrose IV 10/12 2359 Metoprolol Tartrate 6.25 MG ONCE ONE 10/12 0500 DC PO 10/12 0501 Vancomycin HCl 1,250 MG PREOP ONCALL 10/12 0500 DC Sodium Chloride 250 ML IV 10/12 2359 Albumin Human 100 ML .STK-MED ONE 10/12 0455 DC IV Heparin Sodium 0 .STK-MED ONE 10/12 0455 DC .ROUTE Sodium Chloride 100 ML .STK-MED ONE 10/12 0455 DC IV Lidocaine HCl 0 .STK-MED ONE 10/12 0454 DC IV Sodium Bicarbonate 0 .STK-MED ONE 10/12 0454 DC IV Magnesium Sulfate 0 .STK-MED ONE 10/12 0453 DC IV Phenylephrine HCl 0 .STK-MED ONE 10/12 0453 DC .ROUTE Acetaminophen 650 MG Q6H PRN PRN 10/11 2114 DC 10/11 PO 11/10 Gabapentin 600 MG BEDTIME 10/11 2099 DC 10/11 PO 11/10 Melatonin 5 MG BEDTIME 10/11 2100 DC 10/11 PO 11/10 Acetaminophen 1,000 MG PREOP ONCALL 10/11 1700 DC 10/12 PO 11/10 1659 0604 Gabapentin 200 MG PREOP ONCALL 10/11 1700 DC PO 11/10 2359 0604 Atropine Sulfate 0.5 MG ASDIR PRN 10/11 1400 DC IV 10/12 1357 Sodium Chloride 500 ML ASDIR PRN 10/11 1400 DC IV 10/12 1357 Home Medications: MELATONIN 5 MG PO BEDTIME MESALAMINE ER (APRISO) 1.5 GM PO DAILY LISINOPRIL/HCTZ (ZESTORETIC 20/12.5 MG) 1 TAB PO DAILY amLODIPine (NORVASC) 5 MG PO DAILY OMEPRAZOLE ER (PriLOSEC) 40 MG PO DAILY ASPIRIN 81 MG PO DAILY METOPROLOL SUCC XL (TOPROL XL) 50 MG PO DAILY ATORVASTATIN (LIPITOR) 20 MG PO 3X WEEKLY ASCORBIC ACID (VITAMIN C) 1,000 MG PO DAILY CHOLECALCIFEROL (VITAMIN D3) (VITAMIN D3) 1,000 UNITS PO DAILY LACTOBACILLUS ACIDOPHILUS (PROBIOTIC ACIDOPHILUS ) 1 CAP PO DAILY BIOTIN 10 MG PO DAILY GABAPENTIN (NEURONTIN) 600 MG PO BEDTIME I attest that the foregoing medication list in [facility] medical record is true, accurate, and complete to the best of my knowled ge. Electronically Signed by Nina Melgar MD on 3 at 1651 RPT #:[id number] END OF REPORT 2022-10-14 [facility] 07:39:00-00:00 [facility] Cardiology Progress Note REPORT#:[id number] REPORT STATUS: Signed DATE:10/14/22 TIME: 738 PATIENT: SWEETIE AMAYA UNIT #: [id number] ROOM/BED: 2208-1 : 47 AGE: 77 SEX: F ATTEND: Bella Hoff MD ADM AUTHOR: Amarilis Valentin RN CLINICAL APPEALS * ALL edits or amendments must be made on the el ectronic/computer document * Subjective Comments: oob to chair. Objective General VS/I O: 24 hour I O ending at 0700: 10/14 0700 10/13 1900 Intake Total 1181.00 1327.00 Output Total 785 500 Balance 396.00 827.00 Intake, IV 681.00 427.00 Intake, Oral 500 800 Intake, Oral 100 Supplement Output, Chest 205 200 Tube Drainage Output, Urine 580 300 Patient 74.843 kg Weight Vital Signs: Date Time Temp Pulse Resp B/P B/P Pulse O2 O2 F low FiO2 Mean Ox Delivery Rate 10/14 0603 80 15 148/50 74 99 07/21 0600 80 14 146/49 73 99 07/21 0545 80 14 136/48 70 98 07/21 0535 80 15 134/47 70 97 07/21 0530 80 18 124/46 66 96 07/21 0515 80 17 125/46 65 96 07/21 0513 80 21 133/45 66 96 07/21 0500 80 25 133/48 70 97 07/21 0445 80 22 114/42 60 97 07/21 0430 80 15 143/52 74 98 07/21 0415 80 15 140/50 71 98 07/21 0407 80 24 147/52 74 98 07/21 0400 36.3 Nasal 4 cannula 07/21 0400 80 18 146/52 74 98 07/21 0345 80 22 139/49 70 97 07/21 0336 96 Nasal 4 36 cannula 07/21 0330 80 24 127/44 63 96 07/21 0315 80 30 137/49 70 96 07/21 0300 80 31 144/51 73 98 07/21 0245 80 26 154/55 78 98 07/21 0230 80 29 145/49 72 98 07/21 0215 80 36 129/43 63 95 07/21 0201 80 32 142/52 72 97 07/21 0200 80 24 141/51 71 97 07/21 0145 80 20 143/52 72 97 07/21 0130 80 18 143/52 73 97 07/21 0115 80 22 145/52 73 96 07/21 0100 80 15 144/52 72 97 07/21 0045 80 14 141/52 72 95 07/21 0030 80 13 126/43 63 97 07/21 0015 80 14 128/43 63 97 07/21 0005 80 16 128/46 65 96 07/21 0000 36.3 Nasal 3 cannula 07/21 0000 80 15 144/49 72 97 07/20 2202 80 29 131/51 72 96 07/20 2200 80 19 126/49 69 96 07/20 2145 80 24 138/52 74 96 07/20 2130 80 26 138/52 74 96 07/20 2115 80 17 138/52 73 96 07/20 2100 135/61 88 07/20 2100 80 15 151/56 79 96 07/20 2045 80 14 150/55 77 96 07/20 2030 80 16 147/52 73 96 07/20 2028 96 Nasal 2 28 cannula 07/20 2014 80 27 146/51 72 96 07/20 1999 80 20 159/58 80 96 07/20 1956 36.4 Nasal 3 40 cannula 07/20 195 80 22 161/60 83 96 07/20 1945 80 15 156/59 81 96 07/20 1930 80 18 165/59 84 96 07/20 1915 80 31 156/55 80 96 07/20 1900 80 25 166/58 83 97 07/20 1845 80 26 154/56 81 96 07/20 1833 80 26 157/54 79 97 07/20 1830 80 35 159/54 78 96 07/20 1815 80 22 167/59 84 96 07/20 1800 129/62 87 07/20 1800 37.5 80 18 162/58 80 96 07/20 1745 37.3 80 20 161/58 80 96 07/20 1730 37.2 80 32 152/52 73 96 07/20 1715 37.2 80 16 160/58 80 97 07/20 1706 37.2 07/20 1706 80 19 160/58 80 97 07/20 1700 129/60 86 07/20 1700 37.2 80 21 160/59 80 97 07/20 1645 37.3 80 17 167/60 84 96 07/20 1630 37.2 80 21 176/61 88 97 07/20 1615 37.3 80 22 163/60 86 98 07/20 1600 37.3 80 20 169/60 84 96 07/20 1545 37.3 80 19 162/58 82 96 07/20 1530 37.2 80 30 153/55 76 96 07/20 1521 96 High flow 2 nasal cannula 07/20 1515 37.1 80 26 154/54 75 96 07/20 1500 37.2 80 19 156/58 79 97 07/20 1445 37.2 80 18 158/59 81 97 07/20 1430 37.1 80 20 158/58 80 97 07/20 1415 37.1 80 16 171/61 86 97 07/20 1400 37.1 80 17 165/59 84 98 07/20 1345 37.1 80 18 157/55 77 97 07/20 1330 37.1 80 18 310/310 310 96 07/20 1315 37.0 80 18 165/66 94 97 07/20 1300 37.1 80 18 160/114 123 98 07/20 1245 37.0 80 23 136/124 128 98 07/20 1230 37.0 80 18 170/68 91 99 07/20 1215 36.9 80 22 185/68 95 100 07/20 1210 36.9 80 34 152/70 100 99 07/20 1200 36.6 07/20 1145 36.8 80 22 174/59 85 98 07/20 1130 36.9 80 17 174/60 87 98 07/20 1115 36.9 80 25 165/59 85 99 07/20 1100 37.0 80 30 170/62 89 98 07/20 1052 99 High flow 2 nasal cannula 07/ 1045 37.0 80 18 165/58 82 97 07/20 1000 80 18 142/50 80 99 Nasal 3 cannula 07/20 0900 80 18 154/51 85 99 Nasal 3 cannula / 0800 37.1 07/20 0800 Nasal 3 cannula / 0743 98 High flow 3 nasal cannula PATIENT WEIGHT: Weight (lb): 165 Weight (oz): 5.55 Weight (kg): 74.843 Medications: Active Meds + DC'd Last 24 Hrs Ipratropium [employer] (ATROVENT) 500 MCG RTQ2H PRN PRN INH Cyanocobalamin (Vitamin B-12 500 mcg tab) 500 MC G DAILY PO Ferrous Sulfate (FERROUS SULFATE) 325 MG DAILY P O Bisacodyl (DULCOLAX) 10 MG ONCE PRN RECTAL Magnesium Hydroxide (MILK OF MAGNESIA) 30 ML ONC E PRN PO Atorvastatin Calcium (LIPITOR) 40 MG 2100 PO Insulin Human Lispro (HUMALOG) 0 AC HS SUBQ Dextrose/Water (DEXTROSE 10% IN WATER) 125 ML DIR PRN IV (CKD) Dextrose/Water (DEXTROSE 10% IN WATER) 250 ML DIR PRN IV (CKD) Glucagon (GLUCAGON) 1 MG ASDIR PRN IM Mesalamine (DELZICOL 400MG CAP ) 800 MG BID P O Polyethylene Glycol (MIRALAX) 17 GM DAILY PO Vancomycin HCl (VANCOMYCIN HCL) 1,000 MG Q12H I V (DC) Sodium Chloride (SODIUM CHLORIDE 0.9%) 250 ML Melatonin (Melatonin) 6 MG BEDTIME PO Docusate Sodium (COLACE) 100 MG BID PO Gabapentin (NEURONTIN) 200 MG BID PO Sennosides (Senna Lax 8.6 MG TABLET) 17.2 MG BED TIME PO Oxycodone HCl (ROXICODONE) 5 MG Q4H PRN PRN PO Oxycodone HCl (ROXICODONE) 10 MG Q4H PRN PRN PO Aspirin (ASPIRIN) 81 MG DAILY PO Mupirocin (BACTROBAN 2% 22 GM OINTMENT) 1 APPLIC BID NASAL Cefazolin Sodium (KEFZOL OR ANCEF) 3 GM ONCE ONE IV (DC) Sodium Chloride (SODIUM CHLORIDE 0.9%) 250 ML Ipratropium [employer] (ATROVENT) 500 MCG RTQ4H INH Acetaminophen (TYLENOL) 650 MG Q4H PRN PRN PO Acetaminophen (TYLENOL) 650 MG Q4H PRN PRN RECTA L Albumin Human (ALBUMINAR 25%) 25 GM ASDIR PRN IV (DC) Calcium Chloride (CALCIUM CHLORIDE) 1 GM ASDIR P RN IV Dextrose/Water (DEXTROSE 10% IN WATER) 125 ML DIR PRN IV (DC) Dextrose/Water (DEXTROSE 10% IN WATER) 250 ML DIR PRN IV (DC) Epinephrine (ADRENALIN CHLORIDE) 4 MG ASDIR IV Dextrose/Water (DEXTROSE 5% WATER) 246 ML Glucagon (GLUCAGON) 1 MG ASDIR PRN IM Insulin Human Regular (HumuLIN R) 100 UNIT ASDIR IV (DC) Sodium Chloride (SODIUM CHLORIDE 0.9%) 99 ML Magnesium Sulfate (MAGNESIUM SULFATE 4GM/SWFI 10 0ML) 100 ML ASDIR PRN IV Magnesium Sulfate (MAGNESIUM SULFATE 2GM/SWFI 50 ML) 50 ML ASDIR PRN IV Magnesium Sulfate/Dextrose (MAGNESIUM SULFATE 1G M/D5W 100ML) 100 ML ASDIR PRN IV Nitroglycerin/Dextrose (NITROGLYCERIN 50,000MCG/ D5W 250ML) 250 ML ASDIR IV Norepinephrine Bitartrate (NOREPINEPHRINE 8 MG/N S 250 ML) 250 ML TITRATE IV Ondansetron HCl (ZOFRAN) 4 MG Q6H PRN PRN IV Potassium Chloride (KCL 20MEQ/SWFI 100ML) 100 ML ASDIR PRN IV Sodium Bicarbonate (SODIUM BICARBONATE) 50 MEQ A SDIR PRN IV Sodium Chloride (SODIUM CHLORIDE 0.9%) 1,000 ML .Q20H IV Sodium Chloride (SODIUM CHLORIDE 0.9%) 250 ML Q2 4H IV Pacemaker: external Physical Exam General appearance: alert, awake, oriented ENT: normal nose Neck: non-tender Cardiovascular: CV assessment: regular rate and rhythm Murmur assessment: heart murmur Respiratory: decreased breath sounds, on oxygen, no distress Abdomen: soft, non-tender, normal bowel sounds, no distention Genitourinary: urinary catheter, urine Upper extremity: Right radial site: intact, no bleeding, no drai nage, no ecchymosis, no hematoma Lower extremity: LE assessment: no edema Musculoskeletal: normal inspection Neuro/CHARGING MANIPULATOR: alert, oriented X 3, normal speech Skin: dry Psychiatry: normal affect, normal mood Results Findings/Data: Laboratory Tests 10/14 338 Blood Gas Puncture Site Art Line O2 Saturation (90 - 100 %) 93.5 ABG pH (7.35 - 7.45) 7.453 H ABG pCO2 (35.0 - 45 mmHg) 36.6 ABG pO2 (80 - 100.0 mmHg) 63.0 L ABG PO2/FiO2 Ratio (mm/Hg) 225.00 ABG HCO3 (22.0 - 26.0 MMOL/L) 25.7 ABG Total CO2 26.9 ABG Base Excess (-4.0 - 4.0 MMOL/L) 1.6 ABG Hematocrit (33.0 - 45.0 %) 31 L ABG Hemoglobin (11.0 - 15.0 G/DL) 10.7 L Sodium (134 - 147 mmol/L) 127 L Potassium (3.4 - 5.0 mmol/L) 5.1 H Chloride (100 - 108 mmol/L) 93 L Ionized Calcium (1.12 - 1.32 MMOL/L) 1.28 Temperature (F) 97.4 O2 Delivery Device Cannula FiO2 (%) 28 Laboratory Tests 10/149 222 2014 1620 1150 Chemistry Sodium (134 - 147 mEq/L) 129 L Potassium (3.4 - 5.0 mEq/L) 4.9 Chloride (100 - 108 mEq/L) 97 L Carbon Dioxide (21 - 33 mEq/l) 28 Anion Gap (0 - 20) 10 BUN (7 - 18 mg/dL) 14 Creatinine (0.6 - 1.3 mg/dL) 0.8 POC Creatinine (0.6 - 1.0 mg/dL) 0.7 Glomerular Filtr Rate (70 - 80) 76.8 Glucose (70 - 110 mg/dL) 182 H POC Glucose (70 - 110 MG/DL) 160 H 168 H 151 H POC Glucose (mg/dL) (70 - 110 MG/DL) 186 H Calcium (8.0 - 10.5 mg/dL) 8.0 Magnesium (1.80 - 2.40 mg/dL) 1.90 Total Bilirubin (0.0 - 1.0 mg/dL) 0.70 Direct Bilirubin (0.0 - 0.30 MG/DL) 0.30 Indirect Bilirubin (MG/DL) 0.40 AST (15 - 37 IUnit/L) 29 ALT (30 - 65 IUnit/L) 18 L Total Alk Phosphatase (20 - 125 IUnit/L) 65 Total Protein (6.4 - 8.2 g/dL) 4.9 L Albumin (3.4 - 5.0 g/dL) 2.90 L 10/13 10/13 0956 0822 Chemistry POC Glucose (70 - 110 MG/DL) 127 H 106 Laboratory Tests 10/14 0223 Hematology WBC (4.5 - 11.0 x10 3/uL) 16.8 H RBC (3.54 - 5.02 x10 6/uL) 2.67 L Hgb (11.0 - 15.0 g/dL) 7.6 L Hct (33.0 - 45.0 %) 22.5 L MCV (81.0 - 99.0 fL) 84.3 MCH (27.0 - 33.0 pg) 28.5 MCHC (33.0 - 37.0 g/dL) 33.8 RDW (11.5 - 14.5 %) 14.9 H Plt Count (150 - 400 x10 3/uL) 106 L MPV (7.0 - 9.0 fL) 10.8 H Neut % (Auto) (56.0 - 77.0 %) 81.2 H Lymph % (Auto) (14.0 - 32.0 %) 7.5 L Nelson % (Auto) (4.8 - 9.0 %) 9.6 H Eos % (Auto) (0.3 - 3.7 %) 1.0 Baso % (Auto) (0.0 - 2.0 %) 0.2 Neut # (Auto) (2.0 - 7.6 x10 3/uL) 13.68 H Lymph # (Auto) (1.0 - 3.8 x10 3/uL) 1.26 Nelson # (Auto) (0.1 - 0.8 x10 3/uL) 1.61 H Eos # (Auto) (0.0 - 0.2 x10 3/uL) 0.17 Baso # (Auto) (0.0 - 0.2 x10 3/uL) 0.03 Abs Immat Gran (auto) (0.00 - 0.03 x10 3/uL) 0. 09 H Add Manual Diff NO Immature Gran % (0.0 - 2.0 %) 0.5 Nucleated RBC % (0 - 0 %) 0.0 Nucleated RBCs # (Man) (0.0 - 0.1 x10 3/uL) 0.0 0 Laboratory Tests 10/14 0223 Chemistry Magnesium (1.80 - 2.40 mg/dL) 1.90 Radiology data: Recent Impressions: RADIOLOGY - XR CHEST 1 V 10/14 0658 Report Impression - Status: SIGNED Entered: 10/14/2022 0953 IMPRESSION: 1. Lines and tubes, as above. 2. Slight interval worsening of bilateral pulmon danial opacities, with possibilities including any combination of atele ctatic change and/or pulmonary edema. Pneumonia is thought to be less likely, but not excluded. 3. Suspected small bilateral pleural effusions, similar to slightly increased in size. Impression By: [email or web address] - Alejandro Zimmer Results: labs reviewed, vital signs reviewed, [facility] personally rev'd Telemetry Interpretation: paced 100% Diagnosis, Assessment Plan Plan discussed with: patient, spouse/partner, lino day, collaborating MD, nurse Free Text DxA P Notes Free Text DxA P Notes: 77 YO female with PMHx of hy pertension, hyperlipidemia, carotid artery disease s /p R CEA who has been having progressively worse madeleine shortness of breath. She was found to have severe mitral valve regurgitat ion. 1. Severe mitral valve regurgitation s/p MVR, PV I, and ALAA * post op care per CTS and ICC * continue ASA * pacer-dependent, junctional dari when off pacer, off amio and metorprolol - may need EP * appear volume overloaded, CXR showed c ongestion, positive 1.2L - received IV lasix 20 mg, may need more. 2. Hypertension * monitor off BP meds 3. Hyperlipidemia * continue statin MDM by Dr. Bowden. at 1237 Electronically Signed by Vivi Bowden MD on 0 10/16/22 at 0929 RPT #:[id number] END OF REPORT 2022-10-14 [id number] [facility] 04:47:00-00:[address] [place] [address] PATIENT NAME: SWEETIE AMAYA ADMIT DATE: 10/11 ACCOUNT NO: [id number] ROOM NO: 220 AGE: 77 REPORT TYPE: eELECTROCARDIOGRAM REPORT SEX: F ADMITTING PHYSICIAN:Dory Hoff MD ATTENDING PHYSICIAN:Dory Hoff MD Order: [id number] Test Reason : Cardiac Surgery Post Op Test Date/Time Stamp: MonOct 14 2022 04:47:14 Blood Pressure : / mmHG Vent. Rate : 080 BPM Atrial Rate : 080 BPM P-R Int : 162 ms QRS Dur : 184 ms QT Int : 454 ms P-R-T Axes : 112 -24 149 degree s QTc Int : 523 ms AV dual-paced rhythm Abnormal ECG When compared with ECG of 13-OCT-2022 02:49, Significant changes have occurred Confirmed by MD ZHOU GERARD ([id number]) on 10/16/19 2:07:16 PM Referred By: Paras Vidales Confirmed by:PRAFUL BEYER MD Electronically Signed by Praful Zhou MD on 0 10/15/22 at 1407 PATIENT NAME: SWEETIE AMAYA [id number] [facility] 13:43:00-00:00 [facility] ([facility]) Hospitalist Progress Note REPORT#:[id number] REPORT STATUS: Signed DATE:10/13/22 TIME: 1343 PATIENT: SWEETIE AMAYA UNIT #: [id number] ROOM/BED: [place] [address] : 47 AGE: 77 SEX: F ATTEND: Bella Hoff MD ADM AUTHOR: Nina Melgar MD * ALL edits or amendments must be made on the [employer]/computer document * Subjective Chief complaint: she sit on the chair .[address] 1. Mitral valve replacement 2. Pulmonary vein isolation. 3. Amputation of left atrial appendage. HPI: 77 YO female with PMHx of hy pertension, hyperlipidemia, carotid artery disease s /p R CEA was admitted to the hospital for mitral valve surgery . she has been progressively worsening of s ob . she was found severe mitral valve regurgitation . LHC was done . it show no blockage . she had mitral valve surgery today . she was seen in CVICU post procedure . she was intub ated on the vent support . 2 drainage tube are in place . history is obtained from staff and review the chart . Review of Systems Constitutional: Denies: fever, lethargy. Respiratory: Denies: SOB. Cardiovascular: Denies: edema, orthopnea, palpitations. GI: Denies: nausea, vomiting. : Denies: dysuria, flank pain. Neuro: Denies: dizziness. Objective General VS/I O: Vital Signs: Date Time Temp Pulse Resp B/P B/P Pulse O2 O2 F low FiO2 Mean Ox Delivery Rate 10/13 1956 36.4 Nasal 3 40 cannula 10/13 1950 80 22 161/60 83 96 10/13 194 80 15 156/59 81 10/13 1930 80 18 165/59 84 96 10/13 1915 80 31 156/55 80 96 10/13 1900 80 25 166/58 83 97 10/13 1845 80 26 154/56 81 96 10/13 1833 80 26 157/54 79 97 10/13 1830 80 35 159/54 78 96 07/20 1815 80 22 167/59 84 96 07/20 1800 129/62 87 07/20 1800 37.5 80 18 162/58 80 96 07/20 1745 37.3 80 20 161/58 80 96 07/20 1730 37.2 80 32 152/52 73 96 07/20 1715 37.2 80 16 160/58 80 97 07/20 1706 37.2 07/20 1706 80 19 160/58 80 97 07/20 1700 129/60 86 07/20 1700 37.2 80 21 160/59 80 97 07/20 1645 37.3 80 17 167/60 84 96 07/20 1630 37.2 80 21 176/61 88 97 07/20 1615 37.3 80 22 163/60 86 98 07/20 1600 37.3 80 20 169/60 84 96 07/20 1545 37.3 80 19 162/58 82 96 07/20 1530 37.2 80 30 153/55 76 96 07/20 1521 96 High flow 2 nasal cannula 07/20 1515 37.1 80 26 154/54 75 96 07/20 1500 37.2 80 19 156/58 79 97 07/20 1445 37.2 80 18 158/59 81 97 07/20 1430 37.1 80 20 158/58 80 97 07/20 1415 37.1 80 16 171/61 86 97 07/20 1400 37.1 80 17 165/59 84 98 07/20 1345 37.1 80 18 157/55 77 97 07/20 1330 37.1 80 18 310/310 310 96 07/20 1315 37.0 80 18 165/66 94 97 07/20 1300 37.1 80 18 160/114 123 98 07/20 1245 37.0 80 23 136/124 128 98 07/20 1230 37.0 80 18 170/68 91 99 07/20 1215 36.9 80 22 185/68 95 100 07/20 1210 36.9 80 34 152/70 100 99 07/20 1200 36.6 07/20 1145 36.8 80 22 174/59 85 98 07/20 1130 36.9 80 17 174/60 87 98 07/20 1115 36.9 80 25 165/59 85 99 07/20 1100 37.0 80 30 170/62 89 98 07/20 1052 99 High flow 2 nasal cannula 10/13 1045 37.0 80 18 165/58 82 97 10/13 1000 80 18 142/50 80 99 Nasal 3 cannula 10/13 0900 80 18 154/51 85 99 Nasal 3 cannula 10/13 0800 37.1 10/13 0800 Nasal 3 cannula 10/13 0743 98 High flow 3 nasal cannula 10/13 0700 80 18 134/51 78 97 Nasal 3 cannula 24 hour I O ending at 0700: 10/13 0700 10/12 1900 Intake Total 1790.00 1793.00 Output Total 800 770 Balance 990.00 1023.00 Intake, IV 950.00 1793.00 Intake, Oral 840 Output, Chest 250 220 Tube Drainage Output, Urine 550 550 PATIENT WEIGHT: Weight (lb): 165 Weight (oz): 5.55 Weight (kg): 74.843 Medications: Active Meds + DC'd Last 24 Hrs Ipratropium [employer] (ATROVENT) 500 MCG RTQ2H PRN PRN INH Cyanocobalamin (Vitamin B-12 500 mcg tab) 500 MC G DAILY PO Ferrous Sulfate (FERROUS SULFATE) 325 MG DAILY P O Bisacodyl (DULCOLAX) 10 MG ONCE PRN RECTAL Magnesium Hydroxide (MILK OF MAGNESIA) 30 ML ONC E PRN PO Atorvastatin Calcium (LIPITOR) 40 MG 2100 PO Insulin Human Lispro (HUMALOG) 0 AC HS SUBQ Dextrose/Water (DEXTROSE 10% IN WATER) 125 ML DIR PRN IV (CKD) Dextrose/Water (DEXTROSE 10% IN WATER) 250 ML DIR PRN IV (CKD) Glucagon (GLUCAGON) 1 MG ASDIR PRN IM Mesalamine (DELZICOL 400MG CAP ) 800 MG BID P O Polyethylene Glycol (MIRALAX) 17 GM DAILY PO Vancomycin HCl (VANCOMYCIN HCL) 1,000 MG Q12H I V (DC) Sodium Chloride (SODIUM CHLORIDE 0.9%) 250 ML Melatonin (Melatonin) 6 MG BEDTIME PO Atorvastatin Calcium (LIPITOR) 20 MG MoWeFr PO ( DC) Docusate Sodium (COLACE) 100 MG BID PO Gabapentin (NEURONTIN) 200 MG BID PO Metoprolol Tartrate (LOPRESSOR) 12.5 MG Q12HR PO (DC) Sennosides (Senna Lax 8.6 MG TABLET) 17.2 MG BED TIME PO Oxycodone HCl (ROXICODONE) 5 MG Q4H PRN PRN PO Oxycodone HCl (ROXICODONE) 10 MG Q4H PRN PRN PO Aspirin (ASPIRIN) 81 MG DAILY PO Amiodarone HCl (CORDARONE) 200 MG TID PO (DC) Mupirocin (BACTROBAN 2% 22 GM OINTMENT) 1 APPLIC BID NASAL Cefazolin Sodium (KEFZOL OR ANCEF) 3 GM ONCE ONE IV (DC) Sodium Chloride (SODIUM CHLORIDE 0.9%) 250 ML Ipratropium [employer] (ATROVENT) 500 MCG RTQ4H INH Acetaminophen (TYLENOL) 650 MG Q4H PRN PRN PO Acetaminophen (TYLENOL) 650 MG Q4H PRN PRN RECTA L Albumin Human (ALBUMINAR 25%) 25 GM ASDIR PRN IV (DC) Calcium Chloride (CALCIUM CHLORIDE) 1 GM ASDIR P RN IV Dextrose/Water (DEXTROSE 10% IN WATER) 125 ML DIR PRN IV (DC) Dextrose/Water (DEXTROSE 10% IN WATER) 250 ML DIR PRN IV (DC) Epinephrine (ADRENALIN CHLORIDE) 4 MG ASDIR IV Dextrose/Water (DEXTROSE 5% WATER) 246 ML Glucagon (GLUCAGON) 1 MG ASDIR PRN IM Insulin Human Regular (HumuLIN R) 100 UNIT ASDIR IV (DC) Sodium Chloride (SODIUM CHLORIDE 0.9%) 99 ML Magnesium Sulfate (MAGNESIUM SULFATE 4GM/SWFI 10 0ML) 100 ML ASDIR PRN IV Magnesium Sulfate (MAGNESIUM SULFATE 2GM/SWFI 50 ML) 50 ML ASDIR PRN IV Magnesium Sulfate/Dextrose (MAGNESIUM SULFATE 1G M/D5W 100ML) 100 ML ASDIR PRN IV Nitroglycerin/Dextrose (NITROGLYCERIN 50,000MCG/ D5W 250ML) 250 ML ASDIR IV Norepinephrine Bitartrate (NOREPINEPHRINE 8 MG/N S 250 ML) 250 ML TITRATE IV Ondansetron HCl (ZOFRAN) 4 MG Q6H PRN PRN IV Potassium Chloride (KCL 20MEQ/SWFI 100ML) 100 ML ASDIR PRN IV Sodium Bicarbonate (SODIUM BICARBONATE) 50 MEQ A SDIR PRN IV Sodium Chloride (SODIUM CHLORIDE 0.9%) 1,000 ML .Q20H IV Sodium Chloride (SODIUM CHLORIDE 0.9%) 250 ML Q2 4H IV Physical Exam General appearance: alert, awake, oriented, no a cute distress Head/Eyes: atraumatic, normal conjunctiva/sclera , normal eyelids/periorb. ENT: intubated Neck: full range of motion, non-tender Cardiovascular: normal heart sounds, regular rat e rhythm Respiratory: clear to auscultation Abdomen: non-tender, normal bowel sounds, soft, no distention Extremities: no edema Neuro/CHARGING MANIPULATOR: alert, oriented X 3, CNII-XII intact, normal speech, no motor deficits, no sensory deficits Results Findings/Data: Laboratory Tests 10/13 10/13 0316 0307 Blood Gas Puncture Site Art Line Art Line O2 Saturation (90 - 100 %) 95.9 ABG pH (7.35 - 7.45) 7.419 ABG pCO2 (35.0 - 45 mmHg) 41.2 ABG pO2 (80 - 100.0 mmHg) 82.1 ABG HCO3 (22.0 - 26.0 MMOL/L) 26.5 H ABG Total CO2 27.7 ABG Base Excess (-4.0 - 4.0 MMOL/L) 2.1 ABG Hematocrit (33.0 - 45.0 %) 24 L 24 L ABG Hemoglobin (11.0 - 15.0 G/DL) 8.2 L 8.2 L VBG pH (7.33 - 7.45) 7.389 VBG pCO2 (43 - 47 mmHg) 45.3 VBG pO2 (10 - 50 mmHG) 37.5 VBG HCO3 (22 - 27 MMOL/L) 27.3 H POC VBG Total CO2 28.6 VBG O2 Saturation (60 - 80 %) 68.7 VBG Base Excess (-4.0 - 4.0 MMOL/L) 2.4 VBG Temperature (F) 99.5 Sodium (134 - 147 mmol/L) 135 135 Potassium (3.4 - 5.0 mmol/L) 4.7 4.9 Chloride (100 - 108 mmol/L) 101 100 Ionized Calcium (1.12 - 1.32 MMOL/L) 1.27 1.26 Lactic Acid (0.9 - 1.7 mmol/l) 1.2 1.4 Temperature (F) 99.5 O2 Delivery Device 3LNC Laboratory Tests 10/13 10/13 10/13 10/13 10/13 1621 1150 0956 0822 0601 Chemistry POC Glucose (70 - 110 MG/DL) 168 H 151 H 127 H 106 131 H 10/13 10/13 10/13 10/13 10/13 0459 0316 0307 0307 0206 Chemistry Sodium (134 - 147 mEq/L) 136 Potassium (3.4 - 5.0 mEq/L) 4.7 Chloride (100 - 108 mEq/L) 106 Carbon Dioxide (21 - 33 mEq/l) 28 Anion Gap (0 - 20) 7 BUN (7 - 18 mg/dL) 12 Creatinine (0.6 - 1.3 mg/dL) 0.8 POC Creatinine (0.6 - 1.0 mg/dL) 0.7 0.7 Glomerular Filtr Rate (70 - 80) 76.8 Glucose (70 - 110 mg/dL) 138 H POC Glucose (70 - 110 MG/DL) 123 H 143 H POC Glucose (mg/dL) (70 - 110 MG/DL) 135 H 139 H Calcium (8.0 - 10.5 mg/dL) 8.3 Magnesium (1.80 - 2.40 mg/dL) 2.13 Total Bilirubin (0.0 - 1.0 mg/dL) 0.60 Direct Bilirubin (0.0 - 0.30 MG/DL) 0.20 Indirect Bilirubin (MG/DL) 0.40 AST (15 - 37 IUnit/L) 56 H ALT (30 - 65 IUnit/L) 34 Total Alk Phosphatase (20 - 125 57 IUnit/L) Total Protein (6.4 - 8.2 g/dL) 4.7 L Albumin (3.4 - 5.0 g/dL) 2.90 L 10/13 10/12 0002 2219 Chemistry POC Glucose (70 - 110 MG/DL) 142 H 140 H Laboratory Tests 10/13 0307 Hematology WBC (4.5 - 11.0 x10 3/uL) 16.1 H RBC (3.54 - 5.02 x10 6/uL) 2.84 L Hgb (11.0 - 15.0 g/dL) 8.2 L Hct (33.0 - 45.0 %) 24.4 L MCV (81.0 - 99.0 fL) 85.9 MCH (27.0 - 33.0 pg) 28.9 MCHC (33.0 - 37.0 g/dL) 33.6 RDW (11.5 - 14.5 %) 14.8 H Plt Count (150 - 400 x10 3/uL) 128 L MPV (7.0 - 9.0 fL) 10.6 H Neut % (Auto) (56.0 - 77.0 %) 85.4 H Lymph % (Auto) (14.0 - 32.0 %) 6.0 L Nelson % (Auto) (4.8 - 9.0 %) 7.8 Eos % (Auto) (0.3 - 3.7 %) 0.1 L Baso % (Auto) (0.0 - 2.0 %) 0.2 Neut # (Auto) (2.0 - 7.6 x10 3/uL) 13.78 H Lymph # (Auto) (1.0 - 3.8 x10 3/uL) 0.97 L Nelson # (Auto) (0.1 - 0.8 x10 3/uL) 1.26 H Eos # (Auto) (0.0 - 0.2 x10 3/uL) 0.01 Baso # (Auto) (0.0 - 0.2 x10 3/uL) 0.03 Abs Immat Gran (auto) (0.00 - 0.03 x10 3/uL) 0. 08 H Add Manual Diff NO Immature Gran % (0.0 - 2.0 %) 0.5 Nucleated RBC % (0 - 0 %) 0.0 Nucleated RBCs # (Man) (0.0 - 0.1 x10 3/uL) 0.0 0 Radiology data: Recent Impressions: RADIOLOGY - XR CHEST 1 V 10/13 7570 Report Impression - Status: SIGNED Entered: 10/13/2022 4447 IMPRESSION: 1. Moderate to severe enlarged cardiac silhouett e. 2. Small bilateral pleural effusions. 3. Moderate pulmonary edema versus infiltrates, pneumonia. 4. Extubation. Impression By: [email or web address] - Yenny Nam M.D. Diagnosis, Assessment Plan Consultants: cardiology, cardiovascular surgery, critical/clubhouse manager Free Text DxA P Notes Free text DxA P notes: acute respiratory failure --post procedure severe mitral valve regurgitation HTN HLD CHF -- diastolic intubated on the vent support --post procedure post mitral valve surgery HTN -- on metoprolol monitor BP HLD --lipitor cardiology consult CV surgeon consult critial care consult monitor in the CVICU 1. Mitral valve replacement (27 Mitris valve). 2. Pulmonary vein isolation. 3. Amputation of left atrial appendage. 10/13- she was extubated yesterday she sit on the chair no sob [address] -- she is hemodynamic stable --review lab and image -- case is discussed with nurse Quality: Gen Med Crit Care Current Medications Current medication review: Current Medications Sig/Paulette Start time Last Medication Dose Route Stop Time Status Admin Ipratropium [employer] 500 MCG RTQ2H PRN PRN 10/15 1022 AC INH 11/14 1021 Cyanocobalamin 500 MCG DAILY 10/15 09 AC PO 11/14 0859 Ferrous Sulfate 325 MG DAILY 10/15 09 AC PO 11/14 0859 Bisacodyl 10 MG ONCE PRN 10/14 1200 AC RECTAL 11/13 1159 Magnesium Hydroxide 30 ML ONCE PRN 10/14 1200 A C PO Atorvastatin Calcium 40 MG 10/13 AC PO 11/12 2058 Polyethylene Glycol 17 GM DAILY 10/13 09 AC PO 11/12 0859 Vancomycin HCl 1,000 MG Q12H 10/12 2229 CAN Sodium Chloride 250 ML IV 10/13 112 Vancomycin HCl 1,000 MG Q12H 10/12 2229 AC Sodium Chloride 250 ML IV 10/13 1129 Atorvastatin Calcium 20 MG MoWeFr 10/12 2099 DC PO 11/11 2058 Docusate Sodium 100 MG BID 10/12 2099 AC 10/12 PO 11/11 2058 195 Gabapentin 200 MG BID 10/12 2099 AC 10/12 PO 10/17 0901 195 Metoprolol Tartrate 12.5 MG Q12HR 10/12 2100 AC PO 11/11 205 Sennosides 17.2 MG BEDTIME 10/12 2099 AC 10/12 PO 11/11 2058 195 Oxycodone HCl 5 MG Q4H PRN PRN 10/12 1745 AC PO 10/17 174 Oxycodone HCl 10 MG Q4H PRN PRN 10/12 1745 AC PO 10/17 1744 Aspirin 81 MG DAILY 10/12 1622 AC 10/12 PO 11/11 162 174 Fentanyl Citrate 25 MCG ONCE ONE 10/12 1545 DC 10/12 IV 10/12 1546 1557 Amiodarone HCl 200 MG TID 10/12 1500 AC 10/12 PO 11/11 1459 1742 Mupirocin 1 APPLIC BID 10/12 1352 AC 10/12 NASAL 10/16 2101 1957 Albumin Human 250 ML Q1H 10/12 1350 DC 10/12 IV 10/12 1549 1400 Cefazolin Sodium 3 GM ONCE ONE 10/12 1315 AC Sodium Chloride 250 ML IV 10/13 0914 1729 Ipratropium [employer] 500 MCG RTQ4H 10/12 1200 AC 10/12 INH 10/15 1022 2005 Parenteral 1,000 ML .STK-MED ONE 10/12 1122 DC Electrolytes IV Potassium Chloride 200 ML .STK-MED ONE 10/12 10 45 DC IV Vancomycin HCl 0 .STK-MED ONE 10/12 1035 DC .ROUTE Acetaminophen 650 MG Q4H PRN PRN 10/12 1030 AC 10/12 PO 11/11 1029 1955 Acetaminophen 650 MG Q4H PRN PRN 10/12 1030 AC RECTAL 11/11 1029 Albumin Human 25 GM ASDIR PRN 10/12 1030 AC IV 10/13 1022 Calcium Chloride 1 GM ASDIR PRN 10/12 1030 AC IV 11/11 1029 Dextrose/Water 125 ML ASDIR PRN 10/12 1030 CKD IV 11/11 1029 Dextrose/Water 250 ML ASDIR PRN 10/12 1030 CKD IV 11/11 1029 Epinephrine 4 MG ASDIR 10/12 1030 AC Dextrose/Water 246 ML IV 11/11 1029 Glucagon 1 MG ASDIR PRN 10/12 1030 AC IM 11/11 1029 Insulin Human Regular 100 UNIT ASDIR 10/12 1030 CKD Sodium Chloride 99 ML IV 11/11 1029 Magnesium Sulfate 100 ML ASDIR PRN 10/12 1030 A C IV 11/11 1029 Magnesium Sulfate 50 ML ASDIR PRN 10/12 1030 A C IV 11/11 1029 Magnesium Sulfate/ 100 ML ASDIR PRN 10/12 1030 AC Dextrose IV 11/11 1029 Morphine Sulfate 4 MG Q2H PRN PRN 10/12 1030 DC IV 10/17 1029 Nitroglycerin/ 250 ML ASDIR 10/12 1030 AC Dextrose IV 11/11 1029 Norepinephrine 250 ML TITRATE 10/12 1030 AC Bitartrate IV 11/11 1029 Ondansetron HCl 4 MG Q6H PRN PRN 10/12 1030 AC IV 11/11 1029 Oxycodone HCl 5 MG Q4H PRN PRN 10/12 1030 DC PO 10/17 1029 Oxycodone HCl 10 MG Q4H PRN PRN 10/12 1030 DC 0 10/12 PO 10/17 1029 1745 Potassium Chloride 100 ML ASDIR PRN 10/12 1030 AC IV 11/11 1029 Sodium Bicarbonate 50 MEQ ASDIR PRN 10/12 1030 AC IV 11/11 1029 Sodium Chloride 1,000 ML .Q20H 10/12 1030 AC IV 11/11 1029 Sodium Chloride 250 ML Q24H 10/12 1030 AC IV 11/11 1029 Amiodarone HCl 0 .STK-MED ONE 10/12 1018 DC IV Metoclopramide HCl 0 .STK-MED ONE 10/12 929 DC .ROUTE Ondansetron HCl 0 .STK-MED ONE 10/12 929 DC .ROUTE Amlodipine Besylate 5 MG DAILY 10/12 09 DC PO 11/11 0859 Aspirin 81 MG DAILY 10/12 09 DC PO 11/11 0859 Hydrochlorothiazide 12.5 MG DAILY 10/12 0900 DC PO 11/11 0859 Lisinopril 20 MG DAILY 10/12 0900 DC Hydrochlorothiazide 12.5 MG PO 11/11 0859 Lisinopril 20 MG DAILY 10/12 0900 DC PO 11/11 0859 Metoprolol Succinate 50 MG DAILY 10/12 0900 CAN PO 11/11 0859 Mesalamine 800 MG AC BK DIN 10/12 0730 DC PO 11/11 0729 Fentanyl Citrate 0 .STK-MED ONE 10/12 06 DC IV Propofol 20 ML .STK-MED ONE 10/12 06 DC IV Dexamethasone Sodium 0 .STK-MED ONE 10/12 618 DC Phosphate .ROUTE Esmolol HCl 0 .STK-MED ONE 10/12 618 DC IV Lidocaine HCl 0 .STK-MED ONE 10/12 618 DC .ROUTE Ondansetron HCl 0 .STK-MED ONE 10/12 618 DC .ROUTE Rocuronium [employer] 0 .STK-MED ONE 10/12 618 DC IV Sodium Chloride 100 ML .STK-MED ONE 10/12 618 DC IV Pantoprazole 40 MG 0600 10/12 0600 DC 10/12 PO 11/11 0559 0512 Vancomycin HCl 0 .STK-MED ONE 10/12 536 DC IV Cefazolin Sodium 0 .STK-MED ONE 10/12 0435 DC .ROUTE Famotidine 0 .STK-MED ONE 10/12 534 DC IV Milrinone Lactate/ 0 .STK-MED ONE 10/12 0435 D C Dextrose IV Protamine Sulfate 0 .STK-MED ONE 10/12 534 DC IV Sodium Chloride 250 ML .STK-MED ONE 10/12 534 DC IV Epinephrine HCl 250 ML .STK-MED ONE 10/12 533 DC IV Insulin Human Regular 100 ML .STK-MED ONE 10/12 533 DC IV Aminocaproic Acid 0 .STK-MED ONE 10/12 532 DC IV Heparin Sodium 0 .STK-MED ONE 10/12 05 DC .ROUTE Nitroglycerin/ 250 ML .STK-MED ONE 10/12 532 DC Dextrose IV Norepinephrine 250 ML .STK-MED ONE 10/12 05 D C Bitartrate IV Ropivacaine 0 .STK-MED ONE 10/12 05 DC .ROUTE Calcium Chloride 0 .STK-MED ONE 10/12 0432 DC IV Magnesium Sulfate 0 .STK-MED ONE 10/12 0532 DC .ROUTE Lactated Ringer's 1,000 ML PREOP ONCALL 10/12 0 530 DC IV 11/11 235 Lidocaine HCl 2 ML PREOP ONCALL 10/12 0530 DC LOCAL 11/11 235 Lidocaine HCl 2 ML PREOP ONCALL 10/12 0530 DC LOCAL 11/11 235 Sodium Chloride 500 ML PREOP ONCALL 10/12 0530 DC IV 11/11 235 Sodium Chloride 5 ML ASDIR PRN 10/12 0530 DC IV 11/11 05 Sodium Chloride 10 ML ASDIR PRN 10/12 05 DC IV 11/11 05 Sodium Chloride 250 ML ASDIR PRN 10/12 0530 DC IV 11/11 05 Clindamycin 50 ML PREOP ONCALL 10/12 0500 DC Phosphate/Dextrose IV 10/12 2359 Metoprolol Tartrate 6.25 MG ONCE ONE 10/12 0500 DC PO 10/12 0501 Vancomycin HCl 1,250 MG PREOP ONCALL 10/12 0500 DC Sodium Chloride 250 ML IV 10/12 2359 Albumin Human 100 ML .STK-MED ONE 10/12 454 DC IV Heparin Sodium 0 .STK-MED ONE 10/12 045 DC .ROUTE Sodium Chloride 100 ML .STK-MED ONE 10/12 045 DC IV Lidocaine HCl 0 .STK-MED ONE 10/12 045 DC IV Sodium Bicarbonate 0 .STK-MED ONE 10/12 045 DC IV Magnesium Sulfate 0 .STK-MED ONE 10/12 045 DC IV Phenylephrine HCl 0 .STK-MED ONE 10/12 045 DC .ROUTE Acetaminophen 650 MG Q6H PRN PRN 10/11 2114 DC 10/11 PO 11/10 Gabapentin 600 MG BEDTIME 10/11 2100 DC 10/11 PO 11/10 Melatonin 5 MG BEDTIME 10/11 2100 DC 10/11 PO 11/10 Acetaminophen 1,000 MG PREOP ONCALL 10/11 1700 DC 10/12 PO 11/10 165 0604 Gabapentin 200 MG PREOP ONCALL 10/11 1700 DC 0 10/12 PO 11/10 2358 0604 Atropine Sulfate 0.5 MG ASDIR PRN 10/11 1400 DC IV 10/12 1357 Sodium Chloride 500 ML ASDIR PRN 10/11 1400 DC IV 10/12 1357 Home Medications: MELATONIN 5 MG PO BEDTIME MESALAMINE ER (APRISO) 1.5 GM PO DAILY LISINOPRIL/HCTZ (ZESTORETIC 20/12.5 MG) 1 TAB PO DAILY amLODIPine (NORVASC) 5 MG PO DAILY OMEPRAZOLE ER (PriLOSEC) 40 MG PO DAILY ASPIRIN 81 MG PO DAILY METOPROLOL SUCC XL (TOPROL XL) 50 MG PO DAILY ATORVASTATIN (LIPITOR) 20 MG PO 3X WEEKLY ASCORBIC ACID (VITAMIN C) 1,000 MG PO DAILY CHOLECALCIFEROL (VITAMIN D3) (VITAMIN D3) 1,000 UNITS PO DAILY LACTOBACILLUS ACIDOPHILUS (PROBIOTIC ACIDOPHILUS ) 1 CAP PO DAILY BIOTIN 10 MG PO DAILY GABAPENTIN (NEURONTIN) 600 MG PO BEDTIME I attest that the foregoing medication list in t medical record is true, accurate, and complete to the best of my knowled ge. Electronically Signed by Nina Melgar MD on 3 at 2032 RPT #:[id number] END OF REPORT 2022-10-13 [facility] 07:49:00-00:00 [facility] ([facility]) Critical Care Progress Note REPORT#:[id number] REPORT STATUS: Signed DATE:10/13/22 TIME: 0749 PATIENT: SWEETIE AMAYA UNIT #: [id number] ROOM/BED: [place] [id number] : 47 AGE: 77 SEX: F ATTEND: Bella Hoff MD ADM AUTHOR: Sumanth Gray MD * ALL edits or amendments must be made on the [employer] document * Subjective Chief complaint: Severe mitral regurgitation HPI: 77-year-old female with past medical history sig nificant for hypertension, dyslipidemia, paroxysmal atrial fibrilla tion, carotid stenosis status post CEA in 2020 was evaluated for shortness of b reath and dyspnea on exertion over the past several months. She denies any symptoms at rest. No angina symptoms were reported. Patient reported lower extremity weakn ess along with shortness of breath. She underwent echocardiogram in the outp atient setting that showed EF of 60 to 65% with a dilated left atrium, moderat e to severe mitral regurgitation. 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 There was possibility of chordae tendonee rupture evidence of trace tricuspid regurgitation with ascending aorta measuring 3.7 cm. Patient underwent left heart catheterization that showed no significant coronary artery disease. Patient underwent CT surgery evaluation for dre re mitral valve regurgitation for possible mitral valve replacement. Alina shannon was brought to CVICU room #2208 oral intubated on the ventilator. She will be fa st-track for extubation. Comments: OOB in the chair UOP 550 cc overnight CTs output 90 and 160 cc paced, underlying rhythm asystole on insulin and nitroglycerine gtt PAP 20-30s, CI 2.9, SvO2 54% Objective General VS/I O Last Documented: Result Date Time Pulse Ox 98 10/12 2004 O2 Delivery Nasal cannula 10/12 2004 O2 Flow Rate 3 10/12 2004 FiO2 40 10/12 1515 Pulse 80 10/12 1515 Resp 20 10/12 1402 B/P 158/75 10/12 0558 B/P Mean 102.5 10/12 0558 Temp 97.7 10/12 0433 24 hour I O ending at 0700: 10/13 0700 10/12 1900 Intake Total 1790.00 1793.00 Output Total 800 770 Balance 990.00 1023.00 Intake, IV 950.00 1793.00 Intake, Oral 840 Output, Chest 250 220 Tube Drainage Output, Urine 550 550 PATIENT WEIGHT: Weight (lb): 165 Weight (oz): 5.55 Weight (kg): 75.000 Medications: Active Meds + DC'd Last 24 Hrs Ipratropium [employer] (ATROVENT) 500 MCG RTQ2H PRN PRN INH Cyanocobalamin (Vitamin B-12 500 mcg tab) 500 MC G DAILY PO Ferrous Sulfate (FERROUS SULFATE) 325 MG DAILY P O Bisacodyl (DULCOLAX) 10 MG ONCE PRN RECTAL Magnesium Hydroxide (MILK OF MAGNESIA) 30 ML ONC E PRN PO Atorvastatin Calcium (LIPITOR) 40 MG 2100 PO Mesalamine (DELZICOL 400MG CAP ) 800 MG BID P O Polyethylene Glycol (MIRALAX) 17 GM DAILY PO Vancomycin HCl (VANCOMYCIN HCL) 1,000 MG Q12H IV (CAN) Sodium Chloride (SODIUM CHLORIDE 0.9%) 250 ML Vancomycin HCl (VANCOMYCIN HCL) 1,000 MG Q12H IV Sodium Chloride (SODIUM CHLORIDE 0.9%) 250 ML Melatonin (Melatonin) 6 MG BEDTIME PO Atorvastatin Calcium (LIPITOR) 20 MG MoWeFr PO (DC) Docusate Sodium (COLACE) 100 MG BID PO Gabapentin (NEURONTIN) 200 MG BID PO Metoprolol Tartrate (LOPRESSOR) 12.5 MG Q12HR PO (DC) Sennosides (Senna Lax 8.6 MG TABLET) 17.2 MG BED TIME PO Oxycodone HCl (ROXICODONE) 5 MG Q4H PRN PRN PO Oxycodone HCl (ROXICODONE) 10 MG Q4H PRN PRN PO Aspirin (ASPIRIN) 81 MG DAILY PO Fentanyl Citrate (SUBLIMAZE) 25 MCG ONCE ONE IV (DC) Amiodarone HCl (CORDARONE) 200 MG TID PO (DC) Mupirocin (BACTROBAN 2% 22 GM OINTMENT) 1 APPLIC BID NASAL Albumin Human (ALBUMINAR 5% 12.5GM/250ML) 250 ML Q1H IV (DC) Cefazolin Sodium (KEFZOL OR ANCEF) 3 GM ONCE ONE IV Sodium Chloride (SODIUM CHLORIDE 0.9%) 250 ML Ipratropium [employer] (ATROVENT) 500 MCG RTQ4H INH Parenteral Electrolytes (PLASMA-LYTE A pH 7.4) 1 ,000 ML .STK-MED ONE IV (DC) Potassium Chloride (KCL 20MEQ/SWFI 100ML) 200 ML .STK-MED ONE IV (DC) Vancomycin HCl (VANCOMYCIN HCL) 0 .STK-MED ONE . ROUTE (DC) Acetaminophen (TYLENOL) 650 MG Q4H PRN PRN PO Acetaminophen (TYLENOL) 650 MG Q4H PRN PRN RECTA L Albumin Human (ALBUMINAR 25%) 25 GM ASDIR PRN IV Calcium Chloride (CALCIUM CHLORIDE) 1 GM ASDIR P RN IV Dextrose/Water (DEXTROSE 10% IN WATER) 125 ML DIR PRN IV (CKD) Dextrose/Water (DEXTROSE 10% IN WATER) 250 ML DIR PRN IV (CKD) Epinephrine (ADRENALIN CHLORIDE) 4 MG ASDIR IV Dextrose/Water (DEXTROSE 5% WATER) 246 ML Glucagon (GLUCAGON) 1 MG ASDIR PRN IM Insulin Human Regular (HumuLIN R) 100 UNIT ASDIR IV (CKD) Sodium Chloride (SODIUM CHLORIDE 0.9%) 99 ML Magnesium Sulfate (MAGNESIUM SULFATE 4GM/SWFI 10 0ML) 100 ML ASDIR PRN IV Magnesium Sulfate (MAGNESIUM SULFATE 2GM/SWFI 50 ML) 50 ML ASDIR PRN IV Magnesium Sulfate/Dextrose (MAGNESIUM SULFATE 1G M/D5W 100ML) 100 ML ASDIR PRN IV Morphine Sulfate (morphine SULFATE) 4 MG Q2H PRN PRN IV (DC) Nitroglycerin/Dextrose (NITROGLYCERIN 50,000MCG/ D5W 250ML) 250 ML ASDIR IV Norepinephrine Bitartrate (NOREPINEPHRINE 8 MG/N S 250 ML) 250 ML TITRATE IV Ondansetron HCl (ZOFRAN) 4 MG Q6H PRN PRN IV Oxycodone HCl (ROXICODONE) 5 MG Q4H PRN PRN PO ( DC) Oxycodone HCl (ROXICODONE) 10 MG Q4H PRN PRN PO (DC) Potassium Chloride (KCL 20MEQ/SWFI 100ML) 100 ML ASDIR PRN IV Sodium Bicarbonate (SODIUM BICARBONATE) 50 MEQ A SDIR PRN IV Sodium Chloride (SODIUM CHLORIDE 0.9%) 1,000 ML .Q20H IV Sodium Chloride (SODIUM CHLORIDE 0.9%) 250 ML Q2 4H IV Amiodarone HCl (Cordarone I.V.) 0 .STK-MED ONE I V (DC) Metoclopramide HCl (REGLAN) 0 .STK-MED ONE .ROUT E (DC) Ondansetron HCl (ZOFRAN) 0 .STK-MED ONE .ROUTE ( DC) Amlodipine Besylate (NORVASC) 5 MG DAILY PO (DC) Aspirin (ASPIRIN) 81 MG DAILY PO (DC) Hydrochlorothiazide (HYDRODIURIL) 12.5 MG DAILY PO (DC) Lisinopril (ZESTRIL) 20 MG DAILY PO (DC) Hydrochlorothiazide (HYDRODIURIL) 12.5 MG Lisinopril (ZESTRIL) 20 MG DAILY PO (DC) Mesalamine (DELZICOL 400MG CAP ) 800 MG AC BK DIN PO (DC) Pantoprazole (PROTONIX) 40 MG 0600 PO (DC) Lactated Ringer's (LACTATED RINGERS) 1,[address] EOP ONCALL IV (DC) Lidocaine HCl (LIDOCAINE HCL/PF) 2 ML PREOP ONCA LL LOCAL (DC) Lidocaine HCl (LIDOCAINE HCL/PF) 2 ML PREOP ONCA LL LOCAL (DC) Sodium Chloride (SODIUM CHLORIDE 0.9%) [address] EOP ONCALL IV (DC) Sodium Chloride (SODIUM CHLORIDE) 5 ML ASDIR PRN IV (DC) Sodium Chloride (SODIUM CHLORIDE) [address] N IV (DC) Sodium Chloride (SODIUM CHLORIDE 0.9%) 250 ML DIR PRN IV (DC) Clindamycin Phosphate/Dextrose (Clindamycin 900 mg/D5W 50 mL) 50 ML PREOP ONCALL IV (DC) Vancomycin HCl (Vancomycin 1,250 mg Inj (B2)) 1, 250 MG PREOP ONCALL IV ( DC) Sodium Chloride (SODIUM CHLORIDE 0.9%) 250 ML Acetaminophen (TYLENOL) 650 MG Q6H PRN PRN PO (D C) Gabapentin (NEURONTIN) 600 MG BEDTIME PO (DC) Melatonin (Melatonin) 5 MG BEDTIME PO (DC) Acetaminophen (TYLENOL EXTRA STRENGTH) 1,000 MG PREOP ONCALL PO (DC) Gabapentin (NEURONTIN) 200 MG PREOP ONCALL PO (D C) Atropine Sulfate (ATROPINE SULFATE 0.1MG/ML SYR) 0.5 MG ASDIR PRN IV (DC ) Sodium Chloride (SODIUM CHLORIDE 0.9%) 500 ML DIR PRN IV (DC) Results Findings/data: Laboratory Tests 10/13 10/13 10/12 10/12 0316 0303 2003 1445 Blood Gas Puncture Site Art Line Art Line Art Line Art Li ne O2 Saturation (90 - 100 %) 95.9 96.9 96.9 ABG pH (7.35 - 7.45) 7.419 7.406 7.338 L ABG pCO2 (35.0 - 45 mmHg) 41.2 40.2 43.6 ABG pO2 (80 - 100.0 mmHg) 82.1 89.9 92.3 ABG PO2/FiO2 Ratio (mm/Hg) 230.75 ABG HCO3 (22.0 - 26.0 MMOL/L) 26.5 H 25.2 23.6 ABG Total CO2 27.7 26.4 25.0 ABG Base Excess (-4.0 - 4.0 MMOL/L) 2.1 0.6 -2. 4 ABG Hematocrit (33.0 - 45.0 %) 24 L 24 L 25 L 3 1 L ABG Hemoglobin (11.0 - 15.0 G/DL) 8.2 L 8.2 L 8 .5 L 10.5 L Elyssa Test Positive VBG pH (7.33 - 7.45) 7.389 VBG pCO2 (43 - 47 mmHg) 45.3 VBG pO2 (10 - 50 mmHG) 37.5 VBG HCO3 (22 - 27 MMOL/L) 27.3 H POC VBG Total CO2 28.6 VBG O2 Saturation (60 - 80 %) 68.7 VBG Base Excess (-4.0 - 4.0 MMOL/L) 2.4 VBG Temperature (F) 99.5 Sodium (134 - 147 mmol/L) 135 135 138 137 Potassium (3.4 - 5.0 mmol/L) 4.7 4.9 5.2 H 3.8 Chloride (100 - 108 mmol/L) 101 100 104 104 Ionized Calcium (1.12 - 1.32 MMOL/L) 1.27 1.26 1.25 1.37 H Lactic Acid (0.9 - 1.7 mmol/l) 1.2 1.4 2.0 H Temperature (F) 99.5 99.1 97.3 O2 Delivery Device 3LNC 3LNC ET Tube Vent Mode CPAP/PS FiO2 (%) 40 10/12 10/12 10/12 10/12 1151 1042 1002 0930 Blood Gas Puncture Site Art Line O2 Saturation (90 - 100 %) 98.0 100.0 100.0 100 .0 ABG pH (7.35 - 7.45) 7.365 7.428 7.329 L 7.425 ABG pCO2 (35.0 - 45 mmHg) 38.9 39.7 60.0 *H 45. 6 H ABG pO2 (80 - 100.0 mmHg) 103.8 H 474.7 *H 409. 8 *H 465.8 *H ABG PO2/FiO2 Ratio (mm/Hg) 207.60 ABG HCO3 (22.0 - 26.0 MMOL/L) 22.4 26.3 H 31.5 *H 30.0 *H ABG Total CO2 23.7 27.5 33.4 31.4 ABG Base Excess (-4.0 - 4.0 MMOL/L) -3.1 1.8 4. 8 H 5.0 H ABG Hematocrit (33.0 - 45.0 %) 33 27 L 23 L 23 L ABG Hemoglobin (11.0 - 15.0 G/DL) 11.1 9.0 L 7 .7 L 8.0 L Elyssa Test N/A Sodium (134 - 147 mmol/L) 139 137 135 136 Potassium (3.4 - 5.0 mmol/L) 4.3 3.6 5.2 H 5.2 H Chloride (100 - 108 mmol/L) 104 101 99 L 100 Ionized Calcium (1.12 - 1.32 MMOL/L) 1.37 H 1. 14 1.11 L 1.08 L Lactic Acid (0.9 - 1.7 mmol/l) 3.5 H 1.4 1.7 Temperature (F) 97 O2 Delivery Device Adult Vent Vent Mode AC Vent Rate (/MIN) 20 FiO2 (%) 50 Tidal Volume (ml) 450 PEEP (cmH2O) 5 10/12 0842 Blood Gas O2 Saturation (90 - 100 %) 100.0 ABG pH (7.35 - 7.45) 7.460 H ABG pCO2 (35.0 - 45 mmHg) 37.4 ABG pO2 (80 - 100.0 mmHg) 481.2 *H ABG HCO3 (22.0 - 26.0 MMOL/L) 26.6 H ABG Total CO2 27.8 ABG Base Excess (-4.0 - 4.0 MMOL/L) 2.7 ABG Hematocrit (33.0 - 45.0 %) 35 ABG Hemoglobin (11.0 - 15.0 G/DL) 11.9 Sodium (134 - 147 mmol/L) 136 Potassium (3.4 - 5.0 mmol/L) 3.9 Chloride (100 - 108 mmol/L) 100 Ionized Calcium (1.12 - 1.32 MMOL/L) 1.22 Lactic Acid (0.9 - 1.7 mmol/l) 1.2 Laboratory Tests 10/13 10/13 10/13 10/13 10/13 0601 0459 0316 0307 0307 Chemistry Sodium (134 - 147 mEq/L) 136 Potassium (3.4 - 5.0 mEq/L) 4.7 Chloride (100 - 108 mEq/L) 106 Carbon Dioxide (21 - 33 mEq/l) 28 Anion Gap (0 - 20) 7 BUN (7 - 18 mg/dL) 12 Creatinine (0.6 - 1.3 mg/dL) 0.8 POC Creatinine (0.6 - 1.0 mg/dL) 0.7 0.7 Glomerular Filtr Rate (70 - 80) 76.8 Glucose (70 - 110 mg/dL) 138 H POC Glucose (70 - 110 MG/DL) 131 H 123 H POC Glucose (mg/dL) (70 - 110 MG/DL) 135 H 139 H Calcium (8.0 - 10.5 mg/dL) 8.3 Magnesium (1.80 - 2.40 mg/dL) 2.13 Total Bilirubin (0.0 - 1.0 mg/dL) 0.60 Direct Bilirubin (0.0 - 0.30 MG/DL) 0.20 Indirect Bilirubin (MG/DL) 0.40 AST (15 - 37 IUnit/L) 56 H ALT (30 - 65 IUnit/L) 34 Total Alk Phosphatase (20 - 125 IUnit/L) 57 Total Protein (6.4 - 8.2 g/dL) 4.7 L Albumin (3.4 - 5.0 g/dL) 2.90 L 10/13 10/13 10/12 10/12 10/12 0206 0002 2218 2003 1752 Chemistry POC Creatinine (0.6 - 1.0 mg/dL) 0.7 POC Glucose (70 - 110 MG/DL) 143 H 142 H 140 H 121 H POC Glucose (mg/dL) (70 - 110 MG/DL) 143 H 10/12 10/12 10/12 10/12 10/12 1629 1444 1355 1151 1102 Chemistry Sodium (134 - 147 mEq/L) 139 Potassium (3.4 - 5.0 mEq/L) 4.2 Chloride (100 - 108 mEq/L) 105 Carbon Dioxide (21 - 33 mEq/l) 24 Anion Gap (0 - 20) 14 BUN (7 - 18 mg/dL) 11 Creatinine (0.6 - 1.3 mg/dL) 0.9 POC Creatinine (0.6 - 1.0 mg/dL) 0.7 0.6 Glomerular Filtr Rate (70 - 80) 66.7 L Glucose (70 - 110 mg/dL) 187 H POC Glucose (70 - 110 MG/DL) 139 H 181 H POC Glucose (mg/dL) (70 - 110 MG/DL) 198 H 189 H Calcium (8.0 - 10.5 mg/dL) 9.7 Magnesium (1.80 - 2.40 mg/dL) 3.25 H 10/12 10/12 10/12 10/12 1042 1002 0930 0842 Chemistry POC Creatinine (0.6 - 1.0 mg/dL) 0.6 0.6 0.6 0 .6 POC Glucose (mg/dL) (70 - 110 MG/DL) 232 H 191 H 182 H 202 H Laboratory Tests 10/12 10/12 10/12 10/12 10/12 1102 1044 1004 0932 0844 Coagulation INR (0.8 - 1.2) 1.1 PTT (Cheryl) (25.0 - 39.5 Seconds) 38.2 PT Patient/Control Mix (9.3 - 12.9 SECONDS) 12. 5 Activated Coag Time (74 - 137 SEC) 131 630 H 96 7 H 853 H Laboratory Tests 10/13 10/12 0307 1102 Hematology WBC (4.5 - 11.0 x10 3/uL) 16.1 H 34.0 H RBC (3.54 - 5.02 x10 6/uL) 2.84 L 3.81 Hgb (11.0 - 15.0 g/dL) 8.2 L 10.9 L Hct (33.0 - 45.0 %) 24.4 L 32.5 L MCV (81.0 - 99.0 fL) 85.9 85.3 MCH (27.0 - 33.0 pg) 28.9 28.6 MCHC (33.0 - 37.0 g/dL) 33.6 33.5 RDW (11.5 - 14.5 %) 14.8 H 14.6 H Plt Count (150 - 400 x10 3/uL) 128 L 229 MPV (7.0 - 9.0 fL) 10.6 H 10.0 H Neut % (Auto) (56.0 - 77.0 %) 85.4 H 89.7 H Lymph % (Auto) (14.0 - 32.0 %) 6.0 L 6.6 L Nelson % (Auto) (4.8 - 9.0 %) 7.8 2.3 L Eos % (Auto) (0.3 - 3.7 %) 0.1 L 0.2 L Baso % (Auto) (0.0 - 2.0 %) 0.2 0.2 Neut # (Auto) (2.0 - 7.6 x10 3/uL) 13.78 H 30.4 5 H Lymph # (Auto) (1.0 - 3.8 x10 3/uL) 0.97 L 2.24 Nelson # (Auto) (0.1 - 0.8 x10 3/uL) 1.26 H 0.78 Eos # (Auto) (0.0 - 0.2 x10 3/uL) 0.01 0.06 Baso # (Auto) (0.0 - 0.2 x10 3/uL) 0.03 0.08 Abs Immat Gran (auto) (0.00 - 0.03 x10 3/uL) 0. 08 H 0.34 H Add Manual Diff NO NO Immature Gran % (0.0 - 2.0 %) 0.5 1.0 Nucleated RBC % (0 - 0 %) 0.0 0.0 Nucleated RBCs # (Man) (0.0 - 0.1 x10 3/uL) 0.0 0 0.00 Laboratory Tests 10/13/22 0307: [Embedded Image Not Available] 10/12/22 1102: [Embedded Image Not Available] Microbiology: 10/11 1809 URINE: Urine Culture - RES 10/11 1809 NASAL: MSSA Surveillance Screen - COM P 10/11 1809 NASAL: MRSA DNA Surveillance Screen - COMP 10/11 1646 NASAL: MSSA Surveillance Screen - ORD 10/11 1646 NASAL: MRSA DNA Surveillance Screen - ORD Radiology data Recent Impressions: RADIOLOGY - XR CHEST 1 V 10/12 1350 Report Impression - Status: SIGNED Entered: 10/12/2022 1428 IMPRESSION: 1. Status post median sternotomy with support tu bes and lines as described. 2. Small right apical pneumothorax is difficult to exclude due to portable technique and superimposed shadows. Follow-up radiographs can be obtained further evaluate. 3. Mild left basilar atelectasis. Impression By: [email or web address] - Ricardo Hernandez M.D. Free Text Obj Notes Free Text Obj Notes: General appearance: Elderly female in no acute d istress, interactive and conversational HEENT: atraumatic, normocephalic, dry mucosal me mbranes Neck: full range of motion, supple/no meningismu s Cardiovascular: S1-S2 regular rate and rhythm, p acer dependent Respiratory: symmetric expansion, no acute respi ratory distress Abdomen: soft, non-tender, no distention, no gua rding Genitourinary: gonzales with clear urine Extremities: pedal pulses palpable, moves all, n o clubbing, no cyanosis, no edema Musculoskeletal: normal inspection, no muscle sp asm Neuro/CHARGING MANIPULATOR: Alert and oriented x3, CNII-XII gross ly intact, no motor deficits Skin: dry, intact and clean surgery dressing Diagnosis, Assessment Plan Free text A P: 77-year-old female with Dyspnea/Dyspnea on exertion Severe mitral regurgitation status post MVR on Acute pulmonary insufficiency following major ca rdiothoracic surgery Cardiogenic shock Acute blood loss anemia Metabolic acidosis Hypokalemia Assessment and Plan: Patient was received in room #2208 after mitral valve replacement for severe mitral regurgitation. Since she also underwent pulmonary vein isolatio n along with ligation of left atrial appendage. Patient received 27 mm mitral is bioprosthetic valve. She is currently a paced. Normal LV function. No parava lvular leak or regurgitation after replacement. PA pressures are at 39/19 mmH g. She is oral intubated with ET tube of 7.0 secured at 21 cm at the teeth. Pa tient received 1.2 L of crystalloids intraoperativel y along with 300 mL of Amicar, 430 mL of Cell Saver. She had 100 mL of EBL and 530 mL of urine outpu t. She is currently on norepinephrine at 1 and epinephrine at 3 mics. Patient received vancomycin and Ancef for antibiotic prophylaxis. She is currently on insulin at 6 units/h and the latest blood glucose is 180 mg/dL. She was f ound to be hypokalemic with a potassium of 3.4 and is receiving 40 mg of potas sium chloride intravenously. She also received 2 g of magnesium sulfate. Ches t tube output is 25 mL in the left pleural and 15 mL in the mediastinal chest tube. Pupils are 2 mm bilaterally symmetrical reactive to light. She i s currently on assist-control at 20 tidal volume 450 PEEP of 5 and 50% FiO2 and the latest blood gas shows a pH of 7.35, pCO2 of 40 mmHg, pO2 of 109 mmHg and bicarbonate of 22 mmol with base excess at -3.1. Creatinine 0.60 mg/dL, gluc ose 189 mg/dL, potassium 4.0 mmol, ionized calcium 1.37 mg/dL, hemoglobin 11. 1 g/dL with hematocrit of 33% and sodium 139. Currently sinus rhythm 80 A-pace d, blood pressure 129/47 mmHg and pulse ox 100% while on 50% FiO2. PA pressure is 39/19 mmHg. Sweetie Amaya is a 77-year-old female with past medical history significant for hypertension, dyslipidem ia, paroxysmal atrial fibrillation, carotid stenosis status post CEA in 2020 was evaluated for shortn ess of breath and dyspnea on exertion over the past several months. She denie s any symptoms at rest. No angina symptoms were reported. Patient r eported lower extremity weakness along with shortness of breath. She underwent echocard iogram in the outpatient setting that showed EF of 60 to 65% with a dilat ed left atrium, moderate to severe mitral regurgitation. 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 There was possibility of chordae tendonee ruptur e evidence of trace tricuspid regurgitation with ascending aorta measuring 3.7 cm. Patient underwent left heart catheterization that showed no significant coronary artery disease. Patient underwent CT surgery evaluation for dre re mitral valve regurgitation for possible mitral valve replacement. Alina shannon was brought to CVICU room #2208 oral intubated on the ventilator. She will be fa st-track for extubation. Post-op day 0 after mitral valve replacement for severe mitral regurgitation along with pulmonary vein isolation as well as l eft atrial appendecectomy Patient received 27 mm Mitris bioprosthetic valv e Patient is on elective ventilator depend ence for acute pulmonary insufficiency following major cardiothoracic surgery Currently on assist-control at 20 tidal volume 4 50 PEEP of 5 and 50% FiO2 Latest blood gas shows 7.35, pCO2 of 40 mmHg, pO2 of 109 mmHg and bicarbonate of 22 mmol with base excess at -3.1 Mild metabolic acidosis, give 1 amp of sodium bi carb Follow ABG Patient is altered at this time recovering from anesthesia She will be fast-track for extubate Monitor chest tube output Left pleural output is 25 mL and mediastinal out put is 15 mL Hypomagnesemia, patient received 2 g of magnesiu m sulfate Hypokalemia with a potassium of 3.4 mmol and pat ient receiving 40 mg of potassium chloride Glycemic control with insuli n at 6 units/h and latest blood glucose is 180 mg/dL Perioperative antibiotic therapy with vancomycin and Ancef Patient is currently on vaso pressor and inotropic support with norepinephrine at 1 mcg and epinephrine at 3 mcg Follow blood pressure closely Use albumin as needed No paravalvular leak or mitral regurgitation pos toperatively Normal LV function SCDs for DVT prophylaxis 10/13 Appears neuro intact, multimodal pain control Sats well after extubation, wean O2, encourage I -S, ABG and CXR reviewed BP control with nitroglyceri n drip, remains pacer dependent, keep AV pacing and stop beta-blockers and amiodarone per CT surgery Cr stable, good urine output, lactic acidosis cl eared s/p resuscitation Oral diet as tolerated, bowel regimen, trend LFT s, replete hypomagnesemia Leukocytosis with downtrending WBC, given periop antibiotics Hgb trending down, no evidence of active bleed, monitor CTs output Blood glucose control with insulin drip, transit ion to sliding scale insulin Encourage PT/OT and out of bed as tolerated, DVT prophylaxis with SCDs Consultants: cardiology, cardiovascular surgery, critical/clubhouse manager Plan discussed with: patient, family, co nsultants, nurse, interdisc care team, pharmacy/pharmacist Critical care time: Minutes: 37 Electronically Signed by Sumanth Gray MD on 09/25 11/16 at 1151 RPT #:[id number] END OF REPORT 2022-10-13 [facility] 07:48:00-00:00 [facility] ([facility]) Cardiology Progress Note REPORT#:[id number] REPORT STATUS: Signed DATE:10/13/22 TIME: 747 PATIENT: SWEETIE AMAYA UNIT #: [id number] ROOM/BED: [place] [id number] : 47 AGE: 77 SEX: F ATTEND: Bella Hoff MD ADM AUTHOR: Amarilis Valentin AGA RN CLINICAL APPEALS * ALL edits or amendments must be made on the [employer]/computer document * Amarilis Valentin 10/13/22 0748: Subjective Comments: Extubated, OOB to chair, off pressor. C/ o "rattling" in her chest after eating breakfast. pacer - dependent, asystole when pacer was turn off. Objective General VS/I O: 24 hour I O ending at 0700: 10/13 0700 10/12 1900 Intake Total 1790.00 1793.00 Output Total 800 770 Balance 990.00 1023.00 Intake, IV 950.00 1793.00 Intake, Oral 840 Output, Chest 250 220 Tube Drainage Output, Urine 550 550 Vital Signs Date Temp Pulse Resp B/P B/P Mean Pulse Ox FiO2 10/12-10/13 36.8-37.1 80 17-34 134-185/50-124 7 8-128 97-100 40 PATIENT WEIGHT: Weight (lb): 165 Weight (oz): 5.55 Weight (kg): 75.000 Medications: Active Meds + DC'd Last 24 Hrs Ipratropium [employer] (ATROVENT) 500 MCG RTQ2H PRN PRN INH Cyanocobalamin (Vitamin B-12 500 mcg tab) 500 MC G DAILY PO Ferrous Sulfate (FERROUS SULFATE) 325 MG DAILY P O Bisacodyl (DULCOLAX) 10 MG ONCE PRN RECTAL Magnesium Hydroxide (MILK OF MAGNESIA) 30 ML ONC E PRN PO Atorvastatin Calcium (LIPITOR) 40 MG 2100 PO Mesalamine (DELZICOL 400MG CAP DRTigist) 800 MG BID P O Polyethylene Glycol (MIRALAX) 17 GM DAILY PO Vancomycin HCl (VANCOMYCIN HCL) 1,000 MG Q12H IV (CAN) Sodium Chloride (SODIUM CHLORIDE 0.9%) 250 ML Vancomycin HCl (VANCOMYCIN HCL) 1,000 MG Q12H IV Sodium Chloride (SODIUM CHLORIDE 0.9%) 250 ML Melatonin (Melatonin) 6 MG BEDTIME PO Atorvastatin Calcium (LIPITOR) 20 MG MoWeFr PO ( DC) Docusate Sodium (COLACE) 100 MG BID PO Gabapentin (NEURONTIN) 200 MG BID PO Metoprolol Tartrate (LOPRESSOR) 12.5 MG Q12HR PO (DC) Sennosides (Senna Lax 8.6 MG TABLET) 17.2 MG BED TIME PO Oxycodone HCl (ROXICODONE) 5 MG Q4H PRN PRN PO Oxycodone HCl (ROXICODONE) 10 MG Q4H PRN PRN PO Aspirin (ASPIRIN) 81 MG DAILY PO Fentanyl Citrate (SUBLIMAZE) 25 MCG ONCE ONE IV (DC) Amiodarone HCl (CORDARONE) 200 MG TID PO (DC) Mupirocin (BACTROBAN 2% 22 GM OINTMENT) 1 APPLIC BID NASAL Albumin Human (ALBUMINAR 5% 12.5GM/250ML) 250 ML Q1H IV (DC) Cefazolin Sodium (KEFZOL OR ANCEF) 3 GM ONCE ONE IV Sodium Chloride (SODIUM CHLORIDE 0.9%) 250 ML Ipratropium [employer] (ATROVENT) 500 MCG RTQ4H INH Parenteral Electrolytes (PLASMA-LYTE A pH 7.4) 1 ,000 ML .STK-MED ONE IV (DC) Potassium Chloride (KCL 20MEQ/SWFI 100ML) 200 ML .STK-MED ONE IV (DC) Vancomycin HCl (VANCOMYCIN HCL) 0 .STK-MED ONE . ROUTE (DC) Acetaminophen (TYLENOL) 650 MG Q4H PRN PRN PO Acetaminophen (TYLENOL) 650 MG Q4H PRN PRN RECTA L Albumin Human (ALBUMINAR 25%) 25 GM ASDIR PRN IV Calcium Chloride (CALCIUM CHLORIDE) 1 GM ASDIR P RN IV Dextrose/Water (DEXTROSE 10% IN WATER) 125 ML DIR PRN IV (CKD) Dextrose/Water (DEXTROSE 10% IN WATER) 250 ML DIR PRN IV (CKD) Epinephrine (ADRENALIN CHLORIDE) 4 MG ASDIR IV Dextrose/Water (DEXTROSE 5% WATER) 246 ML Glucagon (GLUCAGON) 1 MG ASDIR PRN IM Insulin Human Regular (HumuLIN R) 100 UNIT ASDIR IV (CKD) Sodium Chloride (SODIUM CHLORIDE 0.9%) 99 ML Magnesium Sulfate (MAGNESIUM SULFATE 4GM/SWFI 10 0ML) 100 ML ASDIR PRN IV Magnesium Sulfate (MAGNESIUM SULFATE 2GM/SWFI 50 ML) 50 ML ASDIR PRN IV Magnesium Sulfate/Dextrose (MAGNESIUM SULFATE 1G M/D5W 100ML) 100 ML ASDIR PRN IV Morphine Sulfate (morphine SULFATE) 4 MG Q2H PRN PRN IV (DC) Nitroglycerin/Dextrose (NITROGLYCERIN 50,000MCG/ D5W 250ML) 250 ML ASDIR IV Norepinephrine Bitartrate (NOREPINEPHRINE 8 MG/N S 250 ML) 250 ML TITRATE IV Ondansetron HCl (ZOFRAN) 4 MG Q6H PRN PRN IV Oxycodone HCl (ROXICODONE) 5 MG Q4H PRN PRN PO ( DC) Oxycodone HCl (ROXICODONE) 10 MG Q4H PRN PRN PO (DC) Potassium Chloride (KCL 20MEQ/SWFI 100ML) 100 ML ASDIR PRN IV Sodium Bicarbonate (SODIUM BICARBONATE) 50 MEQ A SDIR PRN IV Sodium Chloride (SODIUM CHLORIDE 0.9%) 1,000 ML .Q20H IV Sodium Chloride (SODIUM CHLORIDE 0.9%) 250 ML Q2 4H IV Amiodarone HCl (Cordarone I.V.) 0 .STK-MED ONE I V (DC) Metoclopramide HCl (REGLAN) 0 .STK-MED ONE .ROUT E (DC) Ondansetron HCl (ZOFRAN) 0 .STK-MED ONE .ROUTE ( DC) Amlodipine Besylate (NORVASC) 5 MG DAILY PO (DC) Aspirin (ASPIRIN) 81 MG DAILY PO (DC) Hydrochlorothiazide (HYDRODIURIL) 12.5 MG DAILY PO (DC) Lisinopril (ZESTRIL) 20 MG DAILY PO (DC) Hydrochlorothiazide (HYDRODIURIL) 12.5 MG Lisinopril (ZESTRIL) 20 MG DAILY PO (DC) Mesalamine (DELZICOL 400MG CAP ) 800 MG AC BK DIN PO (DC) Pantoprazole (PROTONIX) 40 MG 0600 PO (DC) Lactated Ringer's (LACTATED RINGERS) 1,[address] EOP ONCALL IV (DC) Lidocaine HCl (LIDOCAINE HCL/PF) 2 ML PREOP ONCA LL LOCAL (DC) Lidocaine HCl (LIDOCAINE HCL/PF) 2 ML PREOP ONCA LL LOCAL (DC) Sodium Chloride (SODIUM CHLORIDE 0.9%) [address] EOP ONCALL IV (DC) Sodium Chloride (SODIUM CHLORIDE) 5 ML ASDIR PRN IV (DC) Sodium Chloride (SODIUM CHLORIDE) [address] N IV (DC) Sodium Chloride (SODIUM CHLORIDE 0.9%) 250 ML DIR PRN IV (DC) Clindamycin Phosphate/Dextrose (Clindamycin 900 mg/D5W 50 mL) 50 ML PREOP ONCALL IV (DC) Vancomycin HCl (Vancomycin 1,250 mg Inj (B2)) 1, 250 MG PREOP ONCALL IV ( DC) Sodium Chloride (SODIUM CHLORIDE 0.9%) 250 ML Acetaminophen (TYLENOL) 650 MG Q6H PRN PRN PO (D C) Gabapentin (NEURONTIN) 600 MG BEDTIME PO (DC) Melatonin (Melatonin) 5 MG BEDTIME PO (DC) Acetaminophen (TYLENOL EXTRA STRENGTH) 1,000 MG PREOP ONCALL PO (DC) Gabapentin (NEURONTIN) 200 MG PREOP ONCALL PO (D C) Atropine Sulfate (ATROPINE SULFATE 0.1MG/ML SYR) 0.5 MG ASDIR PRN IV (DC ) Sodium Chloride (SODIUM CHLORIDE 0.9%) 500 ML DIR PRN IV (DC) Pacemaker: epicardial Physical Exam General appearance: alert, awake, oriented, no a cute distress, pleasant ENT: normal nose Neck: non-tender Cardiovascular: CV assessment: regular rate and rhythm Respiratory: decreased breath sounds, on oxygen, no distress Abdomen: soft, non-tender, normal bowel sounds, no distention Genitourinary: urinary catheter, urine Lower extremity: LE assessment: no edema Musculoskeletal: normal inspection Neuro/CHARGING MANIPULATOR: alert, oriented X 3, normal speech Skin: dry Psychiatry: normal affect, normal mood Results Findings/Data: Laboratory Tests 10/13 10/13 10/12 10/12 0316 0307 2003 1444 Blood Gas Puncture Site Art Line Art Line Art Line Art Li ne O2 Saturation (90 - 100 %) 95.9 96.9 96.9 ABG pH (7.35 - 7.45) 7.419 7.406 7.338 L ABG pCO2 (35.0 - 45 mmHg) 41.2 40.2 43.6 ABG pO2 (80 - 100.0 mmHg) 82.1 89.9 92.3 ABG PO2/FiO2 Ratio (mm/Hg) 230.75 ABG HCO3 (22.0 - 26.0 MMOL/L) 26.5 H 25.2 23.6 ABG Total CO2 27.7 26.4 25.0 ABG Base Excess (-4.0 - 4.0 MMOL/L) 2.1 0.6 -2 .4 ABG Hematocrit (33.0 - 45.0 %) 24 L 24 L 25 L 3 1 L ABG Hemoglobin (11.0 - 15.0 G/DL) 8.2 L 8.2 L 8 .5 L 10.5 L Elyssa Test Positive VBG pH (7.33 - 7.45) 7.389 VBG pCO2 (43 - 47 mmHg) 45.3 VBG pO2 (10 - 50 mmHG) 37.5 VBG HCO3 (22 - 27 MMOL/L) 27.3 H POC VBG Total CO2 28.6 VBG O2 Saturation (60 - 80 %) 68.7 VBG Base Excess (-4.0 - 4.0 MMOL/L) 2.4 VBG Temperature (F) 99.5 Sodium (134 - 147 mmol/L) 135 135 138 137 Potassium (3.4 - 5.0 mmol/L) 4.7 4.9 5.2 H 3.8 Chloride (100 - 108 mmol/L) 101 100 104 104 Ionized Calcium (1.12 - 1.32 MMOL/L) 1.27 1.26 1.25 1.37 H Lactic Acid (0.9 - 1.7 mmol/l) 1.2 1.4 2.0 H Temperature (F) 99.5 99.1 97.3 O2 Delivery Device 3LNC 3LNC ET Tube Vent Mode CPAP/PS FiO2 (%) 40 10/12 10/12 10/12 10/12 1151 1042 1002 0930 Blood Gas Puncture Site Art Line O2 Saturation (90 - 100 %) 98.0 100.0 100.0 100 .0 ABG pH (7.35 - 7.45) 7.365 7.428 7.329 L 7.425 ABG pCO2 (35.0 - 45 mmHg) 38.9 39.7 60.0 *H 45. 6 H ABG pO2 (80 - 100.0 mmHg) 103.8 H 474.7 *H 409 .8 *H 465.8 *H ABG PO2/FiO2 Ratio (mm/Hg) 207.60 ABG HCO3 (22.0 - 26.0 MMOL/L) 22.4 26.3 H 31.5 *H 30.0 *H ABG Total CO2 23.7 27.5 33.4 31.4 ABG Base Excess (-4.0 - 4.0 MMOL/L) -3.1 1.8 4. 8 H 5.0 H ABG Hematocrit (33.0 - 45.0 %) 33 27 L 23 L 23 L ABG Hemoglobin (11.0 - 15.0 G/DL) 11.1 9.0 L 7. 7 L 8.0 L Elyssa Test N/A Sodium (134 - 147 mmol/L) 139 137 135 136 Potassium (3.4 - 5.0 mmol/L) 4.3 3.6 5.2 H 5.2 H Chloride (100 - 108 mmol/L) 104 101 99 L 100 Ionized Calcium (1.12 - 1.32 MMOL/L) 1.37 H 1.1 4 1.11 L 1.08 L Lactic Acid (0.9 - 1.7 mmol/l) 3.5 H 1.4 1.7 Temperature (F) 97 O2 Delivery Device Adult Vent Vent Mode AC Vent Rate (/MIN) 20 FiO2 (%) 50 Tidal Volume (ml) 450 PEEP (cmH2O) 5 10/12 0842 Blood Gas O2 Saturation (90 - 100 %) 100.0 ABG pH (7.35 - 7.45) 7.460 H ABG pCO2 (35.0 - 45 mmHg) 37.4 ABG pO2 (80 - 100.0 mmHg) 481.2 *H ABG HCO3 (22.0 - 26.0 MMOL/L) 26.6 H ABG Total CO2 27.8 ABG Base Excess (-4.0 - 4.0 MMOL/L) 2.7 ABG Hematocrit (33.0 - 45.0 %) 35 ABG Hemoglobin (11.0 - 15.0 G/DL) 11.9 Sodium (134 - 147 mmol/L) 136 Potassium (3.4 - 5.0 mmol/L) 3.9 Chloride (100 - 108 mmol/L) 100 Ionized Calcium (1.12 - 1.32 MMOL/L) 1.22 Lactic Acid (0.9 - 1.7 mmol/l) 1.2 Laboratory Tests 10/13 10/13 10/13 10/13 10/13 0601 0459 0316 0307 0307 Chemistry Sodium (134 - 147 mEq/L) 136 Potassium (3.4 - 5.0 mEq/L) 4.7 Chloride (100 - 108 mEq/L) 106 Carbon Dioxide (21 - 33 mEq/l) 28 Anion Gap (0 - 20) 7 BUN (7 - 18 mg/dL) 12 Creatinine (0.6 - 1.3 mg/dL) 0.8 POC Creatinine (0.6 - 1.0 mg/dL) 0.7 0.7 Glomerular Filtr Rate (70 - 80) 76.8 Glucose (70 - 110 mg/dL) 138 H POC Glucose (70 - 110 MG/DL) 131 H 123 H POC Glucose (mg/dL) (70 - 110 MG/DL) 135 H 139 H Calcium (8.0 - 10.5 mg/dL) 8.3 Magnesium (1.80 - 2.40 mg/dL) 2.13 Total Bilirubin (0.0 - 1.0 mg/dL) 0.60 Direct Bilirubin (0.0 - 0.30 MG/DL) 0.20 Indirect Bilirubin (MG/DL) 0.40 AST (15 - 37 IUnit/L) 56 H ALT (30 - 65 IUnit/L) 34 Total Alk Phosphatase (20 - 125 IUnit/L) 57 Total Protein (6.4 - 8.2 g/dL) 4.7 L Albumin (3.4 - 5.0 g/dL) 2.90 L 10/13 10/13 10/12 10/12 10/12 0206 0002 2218 2003 175 Chemistry POC Creatinine (0.6 - 1.0 mg/dL) 0.7 POC Glucose (70 - 110 MG/DL) 143 H 142 H 140 H 121 H POC Glucose (mg/dL) (70 - 110 MG/DL) 143 H 10/12 10/12 10/12 10/12 10/12 1629 1444 1355 1151 1102 Chemistry Sodium (134 - 147 mEq/L) 139 Potassium (3.4 - 5.0 mEq/L) 4.2 Chloride (100 - 108 mEq/L) 105 Carbon Dioxide (21 - 33 mEq/l) 24 Anion Gap (0 - 20) 14 BUN (7 - 18 mg/dL) 11 Creatinine (0.6 - 1.3 mg/dL) 0.9 POC Creatinine (0.6 - 1.0 mg/dL) 0.7 0.6 Glomerular Filtr Rate (70 - 80) 66.7 L Glucose (70 - 110 mg/dL) 187 H POC Glucose (70 - 110 MG/DL) 139 H 181 H POC Glucose (mg/dL) (70 - 110 MG/DL) 198 H 189 H Calcium (8.0 - 10.5 mg/dL) 9.7 Magnesium (1.80 - 2.40 mg/dL) 3.25 H 10/12 10/12 10/12 10/12 1042 1002 0930 0842 Chemistry POC Creatinine (0.6 - 1.0 mg/dL) 0.6 0.6 0.6 0. 6 POC Glucose (mg/dL) (70 - 110 MG/DL) 232 H 191 H 182 H 202 H Laboratory Tests 10/12 10/12 10/12 10/12 10/12 1102 1044 1004 0932 0844 Coagulation INR (0.8 - 1.2) 1.1 PTT (Cheryl) (25.0 - 39.5 Seconds) 38.2 PT Patient/Control Mix (9.3 - 12.9 SECONDS) 12. 5 Activated Coag Time (74 - 137 SEC) 131 630 H 96 7 H 853 H Laboratory Tests 10/13 10/12 0307 1102 Hematology WBC (4.5 - 11.0 x10 3/uL) 16.1 H 34.0 H RBC (3.54 - 5.02 x10 6/uL) 2.84 L 3.81 Hgb (11.0 - 15.0 g/dL) 8.2 L 10.9 L Hct (33.0 - 45.0 %) 24.4 L 32.5 L MCV (81.0 - 99.0 fL) 85.9 85.3 MCH (27.0 - 33.0 pg) 28.9 28.6 MCHC (33.0 - 37.0 g/dL) 33.6 33.5 RDW (11.5 - 14.5 %) 14.8 H 14.6 H Plt Count (150 - 400 x10 3/uL) 128 L 229 MPV (7.0 - 9.0 fL) 10.6 H 10.0 H Neut % (Auto) (56.0 - 77.0 %) 85.4 H 89.7 H Lymph % (Auto) (14.0 - 32.0 %) 6.0 L 6.6 L Nelson % (Auto) (4.8 - 9.0 %) 7.8 2.3 L Eos % (Auto) (0.3 - 3.7 %) 0.1 L 0.2 L Baso % (Auto) (0.0 - 2.0 %) 0.2 0.2 Neut # (Auto) (2.0 - 7.6 x10 3/uL) 13.78 H 30.4 5 H Lymph # (Auto) (1.0 - 3.8 x10 3/uL) 0.97 L 2.24 Nelson # (Auto) (0.1 - 0.8 x10 3/uL) 1.26 H 0.78 Eos # (Auto) (0.0 - 0.2 x10 3/uL) 0.01 0.06 Baso # (Auto) (0.0 - 0.2 x10 3/uL) 0.03 0.08 Abs Immat Gran (auto) (0.00 - 0.03 x10 3/uL) 0. 08 H 0.34 H Add Manual Diff NO NO Immature Gran % (0.0 - 2.0 %) 0.5 1.0 Nucleated RBC % (0 - 0 %) 0.0 0.0 Nucleated RBCs # (Man) (0.0 - 0.1 x10 3/uL) 0.0 0 0.00 Laboratory Tests 10/13 10/12 0307 1102 Chemistry Magnesium (1.80 - 2.40 mg/dL) 2.13 3.25 H Radiology data: Recent Impressions: RADIOLOGY - XR CHEST 1 V 10/12 1350 Report Impression - Status: SIGNED Entered: 10/12/2022 1428 IMPRESSION: 1. Status post median sternotomy with support tu bes and lines as described. 2. Small right apical pneumothorax is difficult to exclude due to portable technique and superimposed shadows. Follow-up radiographs can be obtained further evaluate. 3. Mild left basilar atelectasis. Impression By: [email or web address] - Ricardo Hernandez M.D. Results: labs reviewed, vital signs reviewed, [facility] personally rev'd Telemetry Interpretation: paced asystole when temp pacer was paused Diagnosis, Assessment Plan Plan discussed with: patient, collaborating MD, nurse Free Text DxA P Notes Free Text DxA P Notes: 77 YO female with PMHx of hy pertension, hyperlipidemia, carotid artery disease s /p R CEA who has been having progressively worse madeleine shortness of breath. She was found to have severe mitral valve regurgitat ion. 1. Severe mitral valve regurgitation s/p MVR, PV I, and ALAA * post op care per CTS and ICC * extubated, awake, and alert. * pacer-dependent, she has n o underlying rhythm when TP was pause this morning. continue to monitor since she just had surgery. 2. Hypertension * monitor off BP meds 3. Hyperlipidemia * continue statin Vivi Bowden 10/13/22 1701: Attestations Physician Attestation Agree w/findings plan: I have seen and examined the pt, I Agree with e findings and plan as documented by Amarilis Valentin. at 1302 Electronically Signed by Vivi Bowden MD on at 1701 RPT #:[id number] END OF REPORT 2022-10-13 [facility] 05:12:00-00:00 [facility] Cardiothoracic Surgery Prog REPORT#:[id number] REPORT STATUS: Signed DATE:10/13/22 TIME: 05 PATIENT: SWEETIE AMAYA UNIT #: [id number] ROOM/BED: 22081 : 47 AGE: 77 SEX: F ATTEND: Bella Hoff MD ADM AUTHOR: Harriet Griffin Physic * ALL edits or amendments must be made on the [employer]/computer document * General Post-op: day 1 Status post: 10/12/22 PROCEDURES: 1. Mitral valve replacement (27 Mitris valve). 2. Pulmonary vein isolation. 3. Amputation of left atrial appendage. Subjective Chief complaint: Resting comfortable. POD 1 Review of Systems All systems rev neg: except as marked Quality: Trauma Gen Surg Current Medications Current medication review: Current Medications Sig/Paulette Start time Last Medication Dose Route Stop Time Status Admin Ipratropium [employer] 500 MCG RTQ2H PRN PRN 10/15 1022 AC INH 11/14 1021 Cyanocobalamin 500 MCG DAILY 10/15 0900 AC PO 11/14 0859 Ferrous Sulfate 325 MG DAILY 10/15 0900 AC PO 11/14 0859 Bisacodyl 10 MG ONCE PRN 10/14 1200 AC RECTAL 11/13 1159 Magnesium Hydroxide 30 ML ONCE PRN 10/14 1200 A C PO Atorvastatin Calcium 40 MG 2100 10/13 2099 AC PO 11/12 2058 Polyethylene Glycol 17 GM DAILY 10/13 0900 AC PO 11/12 0859 Vancomycin HCl 1,000 MG Q12H 10/12 2229 CAN Sodium Chloride 250 ML IV 10/13 112 Vancomycin HCl 1,000 MG Q12H 10/12 2230 AC Sodium Chloride 250 ML IV 10/13 112 Atorvastatin Calcium 20 MG MoWeFr 10/12 2099 DC PO 11/11 2058 Docusate Sodium 100 MG BID 10/12 2099 AC 10/12 PO 11/11 Gabapentin 200 MG BID 10/12 2099 AC 10/12 PO 10/17 Metoprolol Tartrate 12.5 MG Q12HR 10/12 2100 AC PO 11/11 2058 Sennosides 17.2 MG BEDTIME 10/12 2099 AC 10/12 PO 11/11 Oxycodone HCl 5 MG Q4H PRN PRN 10/12 1745 AC PO 10/17 1744 Oxycodone HCl 10 MG Q4H PRN PRN 10/12 1745 AC PO 10/17 1744 Aspirin 81 MG DAILY 10/12 1622 AC 10/12 PO 11/11 1621 1742 Fentanyl Citrate 25 MCG ONCE ONE 10/12 1545 DC 10/12 IV 10/12 1546 1557 Amiodarone HCl 200 MG TID 10/12 1500 AC 10/12 PO 11/11 1459 1742 Mupirocin 1 APPLIC BID 10/12 1352 AC 10/12 NASAL 10/16 2101 1957 Albumin Human 250 ML Q1H 10/12 1350 DC 10/12 IV 10/12 1549 1400 Cefazolin Sodium 3 GM ONCE ONE 10/12 1315 AC Sodium Chloride 250 ML IV 10/13 0914 1729 Ipratropium [employer] 500 MCG RTQ4H 10/12 1200 AC 10/12 INH 10/15 1022 2005 Parenteral 1,000 ML .STK-MED ONE 10/12 1122 DC Electrolytes IV Potassium Chloride 200 ML .STK-MED ONE 10/12 10 45 DC IV Vancomycin HCl 0 .STK-MED ONE 10/12 1035 DC .ROUTE Acetaminophen 650 MG Q4H PRN PRN 10/12 1030 AC 10/12 PO 11/11 1029 1955 Acetaminophen 650 MG Q4H PRN PRN 10/12 1030 AC RECTAL 11/11 1029 Albumin Human 25 GM ASDIR PRN 10/12 1030 AC IV 10/13 1022 Calcium Chloride 1 GM ASDIR PRN 10/12 1030 AC IV 11/11 1029 Dextrose/Water 125 ML ASDIR PRN 10/12 1030 CKD IV 11/11 1029 Dextrose/Water 250 ML ASDIR PRN 10/12 1030 CKD IV 11/11 1029 Epinephrine 4 MG ASDIR 10/12 1030 AC Dextrose/Water 246 ML IV 11/11 1029 Glucagon 1 MG ASDIR PRN 10/12 1030 AC IM 11/11 1029 Insulin Human Regular 100 UNIT ASDIR 10/12 1030 CKD Sodium Chloride 99 ML IV 11/11 1029 Magnesium Sulfate 100 ML ASDIR PRN 10/12 1030 A C IV 11/11 1029 Magnesium Sulfate 50 ML ASDIR PRN 10/12 1030 AC IV 11/11 1029 Magnesium Sulfate/ 100 ML ASDIR PRN 10/12 1030 AC Dextrose IV 11/11 1029 Morphine Sulfate 4 MG Q2H PRN PRN 10/12 1030 DC IV 10/17 1029 Nitroglycerin/ 250 ML ASDIR 10/12 1030 AC Dextrose IV 11/11 1029 Norepinephrine 250 ML TITRATE 10/12 1030 AC Bitartrate IV 11/11 1029 Ondansetron HCl 4 MG Q6H PRN PRN 10/12 1030 AC IV 11/11 1029 Oxycodone HCl 5 MG Q4H PRN PRN 10/12 1030 DC PO 10/17 1029 Oxycodone HCl 10 MG Q4H PRN PRN 10/12 1030 DC 10/12 PO 10/17 1029 1745 Potassium Chloride 100 ML ASDIR PRN 10/12 1030 AC IV 11/11 1029 Sodium Bicarbonate 50 MEQ ASDIR PRN 10/12 1030 AC IV 11/11 1029 Sodium Chloride 1,000 ML .Q20H 10/12 1030 AC IV 11/11 1029 Sodium Chloride 250 ML Q24H 10/12 1030 AC IV 11/11 1029 Amiodarone HCl 0 .STK-MED ONE 10/12 1018 DC IV Metoclopramide HCl 0 .STK-MED ONE 10/12 929 DC .ROUTE Ondansetron HCl 0 .STK-MED ONE 10/12 929 DC .ROUTE Amlodipine Besylate 5 MG DAILY 10/12 899 DC PO 11/11 0859 Aspirin 81 MG DAILY 10/12 899 DC PO 11/11 0859 Hydrochlorothiazide 12.5 MG DAILY 10/12 899 DC PO 11/11 0859 Lisinopril 20 MG DAILY 10/12 09 DC Hydrochlorothiazide 12.5 MG PO 11/11 0859 Lisinopril 20 MG DAILY 10/12 09 DC PO 11/11 0859 Metoprolol Succinate 50 MG DAILY 10/12 09 CAN PO 11/11 0859 Mesalamine 800 MG AC BK DIN 10/12 0730 DC PO 11/11 0729 Fentanyl Citrate 0 .STK-MED ONE 10/12 633 DC IV Propofol 20 ML .STK-MED ONE 10/12 633 DC IV Dexamethasone Sodium 0 .STK-MED ONE 10/12 618 DC Phosphate .ROUTE Esmolol HCl 0 .STK-MED ONE 10/12 618 DC IV Lidocaine HCl 0 .STK-MED ONE 10/12 618 DC .ROUTE Ondansetron HCl 0 .STK-MED ONE 10/12 618 DC .ROUTE Rocuronium [employer] 0 .STK-MED ONE 10/12 618 DC IV Sodium Chloride 100 ML .STK-MED ONE 10/12 618 DC IV Pantoprazole 40 MG 0600 10/12 06 DC 10/12 PO 11/11 0559 0512 Vancomycin HCl 0 .STK-MED ONE 10/12 536 DC IV Cefazolin Sodium 0 .STK-MED ONE 10/12 534 DC .ROUTE Famotidine 0 .STK-MED ONE 10/12 534 DC IV Milrinone Lactate/ 0 .STK-MED ONE 10/12 534 DC Dextrose IV Protamine Sulfate 0 .STK-MED ONE 10/12 534 DC IV Sodium Chloride 250 ML .STK-MED ONE 10/12 534 DC IV Epinephrine HCl 250 ML .STK-MED ONE 10/12 533 DC IV Insulin Human Regular 100 ML .STK-MED ONE 10/12 533 DC IV Aminocaproic Acid 0 .STK-MED ONE 10/12 532 DC IV Heparin Sodium 0 .STK-MED ONE 10/12 532 DC .ROUTE Nitroglycerin/ 250 ML .STK-MED ONE 10/12 532 D C Dextrose IV Norepinephrine 250 ML .STK-MED ONE 10/12 532 DC Bitartrate IV Ropivacaine 0 .STK-MED ONE 10/12 532 DC .ROUTE Calcium Chloride 0 .STK-MED ONE 10/13 531 DC IV Magnesium Sulfate 0 .STK-MED ONE 10/13 531 DC .ROUTE Lactated Ringer's 1,000 ML PREOP ONCALL 10/12 0 530 DC IV 11/11 2358 Lidocaine HCl 2 ML PREOP ONCALL 10/12 529 DC LOCAL 11/11 2358 Lidocaine HCl 2 ML PREOP ONCALL 10/12 529 DC LOCAL 11/11 235 Sodium Chloride 500 ML PREOP ONCALL 10/12 529 DC IV 11/11 2358 Sodium Chloride 5 ML ASDIR PRN 10/12 529 DC IV 11/11 528 Sodium Chloride 10 ML ASDIR PRN 07/19 0530 DC IV 08/18 0529 Sodium Chloride 250 ML ASDIR PRN 10/12 0530 DC IV 11/11 0529 Clindamycin 50 ML PREOP ONCALL 10/12 0500 DC Phosphate/Dextrose IV 10/12 2359 Metoprolol Tartrate 6.25 MG ONCE ONE 10/12 0500 DC PO 10/12 0501 Vancomycin HCl 1,250 MG PREOP ONCALL 10/12 0500 DC Sodium Chloride 250 ML IV 10/12 2359 Albumin Human 100 ML .STK-MED ONE 10/12 045 DC IV Heparin Sodium 0 .STK-MED ONE 10/12 0455 DC .ROUTE Sodium Chloride 100 ML .STK-MED ONE 10/12 0455 DC IV Lidocaine HCl 0 .STK-MED ONE 10/12 0454 DC IV Sodium Bicarbonate 0 .STK-MED ONE 10/12 0454 DC IV Magnesium Sulfate 0 .STK-MED ONE 10/12 0453 DC IV Phenylephrine HCl 0 .STK-MED ONE 10/12 0453 DC .ROUTE Acetaminophen 650 MG Q6H PRN PRN 10/11 2115 DC 10/11 PO 11/10 2113 213 Gabapentin 600 MG BEDTIME 10/11 2100 DC 10/11 PO 11/10 2058 204 Melatonin 5 MG BEDTIME 10/11 2100 DC 10/11 PO 11/10 2058 204 Acetaminophen 1,000 MG PREOP ONCALL 10/11 1700 DC 10/12 PO 11/10 1659 0604 Gabapentin 200 MG PREOP ONCALL 10/11 1700 DC PO 11/10 2359 0604 Atropine Sulfate 0.5 MG ASDIR PRN 10/11 1400 DC IV 10/12 1357 Sodium Chloride 500 ML ASDIR PRN 10/11 1400 DC IV 10/12 1357 Home Medications: MELATONIN 5 MG PO BEDTIME MESALAMINE ER (APRISO) 1.5 GM PO DAILY LISINOPRIL/HCTZ (ZESTORETIC 20/12.5 MG) 1 TAB PO DAILY amLODIPine (NORVASC) 5 MG PO DAILY OMEPRAZOLE ER (PriLOSEC) 40 MG PO DAILY ASPIRIN 81 MG PO DAILY METOPROLOL SUCC XL (TOPROL XL) 50 MG PO DAILY ATORVASTATIN (LIPITOR) 20 MG PO 3X WEEKLY ASCORBIC ACID (VITAMIN C) 1,000 MG PO DAILY CHOLECALCIFEROL (VITAMIN D3) (VITAMIN D3) 1,000 UNITS PO DAILY LACTOBACILLUS ACIDOPHILUS (PROBIOTIC ACIDOPHILUS ) 1 CAP PO DAILY BIOTIN 10 MG PO DAILY GABAPENTIN (NEURONTIN) 600 MG PO BEDTIME I attest that the foregoing medication list in t medical record is true, accurate, and complete to the best of my knowled ge. Diagnosis, Assessment Plan Free Text A P: This is a 77-year with a past medical history of new diagnosis of atrial fibrilation, hypertension, hyperlipidemia, carot id stenosis status post right carotid endarterectomy 2020, who presented as an outpatient for evaluation of increased shortness of breath over the past dre ral months. She reports most of her symptoms are wit h exertion. She denies any symptoms at rest. She denies any chest pains. She reports only recently being diagnose d with Atrial fibrillaiton. She denies takign any furhter anticoagulation. She also reports lower extremity weakness with h er shortness of breath. The patient underwent echocardiogram in the outpatient setting. By report this showed EF 60 to 65%, dilated LA, moderate to sev ere MR. 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 Trace T R, ascending aorta measurement 3.7 cm. Patient [facility] heart [facility] no significant carotid artery stenosis. Review of the patient's records show patient als o had a carotid Doppler completed on May 2022 showing less than 50% st enosis in the left internal carotid artery CV surgery consulted for evaluation of severe mi tral valve regurgitation for possible mitral valve repair versus replacement Assessment/plan 1. Dyspnea on exertion Likely secondary to severe MR 2.Severe MR 3. Hypertension 4. Dyslipidemia 5. Atrial fibrilation. Patient reports a rather active lifestyle workin g in her yard frequently. However since the past several months her increa sed dyspnea on exertion has caused her decrease her activity. Patient has no lower extremity edema. Patient was seen and examined at [facility]. Mitral valve replacement versus repair was discussed with the patient. Patient is not on any blood thinners Coronary angiogramtoday showed no obstructive co ronary artery disease We will begin work-up for mi tral valve repair repair versus replacement, PVI and ALAA 10/12/22 PROCEDURES: 1. Mitral valve replacement (27 Mitris valve). 2. Pulmonary vein isolation. 3. Amputation of left atrial appendage. 10/13/22 POD 1 POD AAOx3 Respiratory: On 3 L nasal cannula, wean as martin ated, Encourage IS, Deep Breathing, CXR reviewed chest tube drainage 160 mediastina l. Left pleural 90 Chest tubes in today. Reassess after walking Cardiac: Asystole underlying. Atrial paced V sen sed. On nitro drip for hypertension. GI: Continue Bowel regimen, gas? : Gonzales in place UO:500 Continue PT/OT, out of bed walking the unit DVT prophylaxis SCDs in place Labs reveiwed- replace electrolytes as needed Patient seen and examined by Dr. Carey. Plan o f care discussed with multidisciplinary team MARCOS Gilliland, stop beta-milla due to asystole. Consultants: cardiology, cardiovascular surgery, critical/clubhouse manager at 1308 at 1643 RPT #:[id number] END OF REPORT 2022-10-13 [id number] [facility] 02:49:00-00:[address] [place] [address] PATIENT NAME: SWEETIE AMAYA ADMIT DATE: 10/11 ACCOUNT NO: [id number] ROOM NO: [id number] AGE: 77 REPORT TYPE: eELECTROCARDIOGRAM REPORT SEX: F ADMITTING PHYSICIAN:Dory Hoff MD ATTENDING PHYSICIAN:Dory Hoff MD Order: [id number] Test Reason : POD 1 MVR Test Date/Time Stamp: MonOct 13 2022 02:49:56 Blood Pressure : / mmHG Vent. Rate : 080 BPM Atrial Rate : 080 BPM P-R Int : 322 ms QRS Dur : 078 ms QT Int : 364 ms P-R-T Axes : 058 040 070 degree s QTc Int : 419 ms Atrial-paced rhythm with prolonged AV conduction Nonspecific T wave abnormality Abnormal ECG When compared with ECG of 12-OCT-2022 11:57, Significant changes have occurred Confirmed by ZOE RUBIO MD ([id number]) on 10/14/19 1:27:25 PM Referred By: Paras Vidales Confirmed by:ZOE FERNÁNDEZ MD Electronically Signed by Zoe Rubio MD on at 1327 PATIENT NAME: SWEETIE AMAYA [id number] [facility] 13:22:00-00:00 [facility] Cardiology Progress Note REPORT#:[id number] REPORT STATUS: Signed DATE:10/12/22 TIME: 1322 PATIENT: SWEETIE AMAYA UNIT #: [id number] ROOM/BED: [place] [id number] : 47 AGE: 77 SEX: F ATTEND: Bella Hoff MD ADM AUTHOR: Amarilis Valentin ACNP * ALL edits or amendments must be made on the [employer] document * Amarilis Valentin 10/12/22 1322: Subjective Comments: seen post-op, intubated. Objective General VS/I O: 24 hour I O ending at 0700: 10/12 0700 10/11 1900 Intake Total Output Total Balance Patient 75 kg Weight Weight Standing scale Measurement Method Vital Signs: Date Time Temp Pulse Resp B/P B/P Pulse O2 O2 F low FiO2 Mean Ox Delivery Rate 10/12 0558 51 158/75 102.5 10/12 0557 46 166/68 100.8 10/12 0433 36.5 39 14 122/65 83.8 95 10/12 0020 36.6 42 15 156/70 98.5 95 10/11 1853 37.0 51 15 162/75 104.1 97 10/11 1639 37.2 50 17 159/73 101.6 95 Room air 10/11 1555 51 16 146/71 97 Room air PATIENT WEIGHT: Weight (lb): 165 Weight (oz): 5.55 Weight (kg): 75.000 Medications: Active Meds + DC'd Last 24 Hrs Ipratropium [employer] (ATROVENT) 500 MCG RTQ2H PRN PRN INH Cyanocobalamin (Vitamin B-12 500 mcg tab) 500 MC G DAILY PO Ferrous Sulfate (FERROUS SULFATE) 325 MG DAILY P O Bisacodyl (DULCOLAX) 10 MG ONCE PRN RECTAL Magnesium Hydroxide (MILK OF MAGNESIA) 30 ML ONC E PRN PO Atorvastatin Calcium (LIPITOR) 40 MG 2100 PO Polyethylene Glycol (MIRALAX) 17 GM DAILY PO Vancomycin HCl (VANCOMYCIN HCL) 1,000 MG Q12H IV (CAN) Sodium Chloride (SODIUM CHLORIDE 0.9%) 250 ML Atorvastatin Calcium (LIPITOR) 20 MG MoWeFr PO ( DC) Docusate Sodium (COLACE) 100 MG BID PO Gabapentin (NEURONTIN) 200 MG BID PO Metoprolol Tartrate (LOPRESSOR) 12.5 MG Q12HR PO Sennosides (Senna Lax 8.6 MG TABLET) 17.2 MG BED TIME PO Aspirin (ASPIRIN) 81 MG DAILY PO Amiodarone HCl (CORDARONE) 200 MG TID PO Cefazolin Sodium (KEFZOL OR ANCEF) 3 GM ONCE ONE IV (UNV) Sodium Chloride (SODIUM CHLORIDE 0.9%) 250 ML Vancomycin HCl (VANCOMYCIN HCL) 1,000 MG Q12H IV (UNV) Sodium Chloride (SODIUM CHLORIDE 0.9%) 250 ML Albumin Human (ALBUMINAR 5% 12.5GM/250ML) 500 ML ONCE ONE IV (UNV) Ipratropium [employer] (ATROVENT) 500 MCG RTQ4H INH Parenteral Electrolytes (PLASMA-LYTE A pH 7.4) 1 ,000 ML .STK-MED ONE IV (DC) Potassium Chloride (KCL 20MEQ/SWFI 100ML) 200 ML .STK-MED ONE IV (DC) Vancomycin HCl (VANCOMYCIN HCL) 0 .STK-MED ONE . ROUTE (DC) Acetaminophen (TYLENOL) 650 MG Q4H PRN PRN PO Acetaminophen (TYLENOL) 650 MG Q4H PRN PRN RECTA L Albumin Human (ALBUMINAR 25%) 25 GM ASDIR PRN IV Calcium Chloride (CALCIUM CHLORIDE) 1 GM ASDIR P RN IV Dextrose/Water (DEXTROSE 10% IN WATER) 125 ML DIR PRN IV (CKD) Dextrose/Water (DEXTROSE 10% IN WATER) 250 ML DIR PRN IV (CKD) Epinephrine (ADRENALIN CHLORIDE) 4 MG ASDIR IV Dextrose/Water (DEXTROSE 5% WATER) 246 ML Glucagon (GLUCAGON) 1 MG ASDIR PRN IM Insulin Human Regular (HumuLIN R) 100 UNIT ASDIR IV (CKD) Sodium Chloride (SODIUM CHLORIDE 0.9%) 99 ML Magnesium Sulfate (MAGNESIUM SULFATE 4GM/SWFI 10 0ML) 100 ML ASDIR PRN IV Magnesium Sulfate (MAGNESIUM SULFATE 2GM/SWFI 50 ML) 50 ML ASDIR PRN IV Magnesium Sulfate/Dextrose (MAGNESIUM SULFATE 1G M/D5W 100ML) 100 ML ASDIR PRN IV Morphine Sulfate (morphine SULFATE) 4 MG Q2H PRN PRN IV Nitroglycerin/Dextrose (NITROGLYCERIN 50,000MCG/ D5W 250ML) 250 ML ASDIR IV Norepinephrine Bitartrate (NOREPINEPHRINE 8 MG/N S 250 ML) 250 ML TITRATE IV Ondansetron HCl (ZOFRAN) 4 MG Q6H PRN PRN IV Oxycodone HCl (ROXICODONE) 5 MG Q4H PRN PRN PO Oxycodone HCl (ROXICODONE) 10 MG Q4H PRN PRN PO Potassium Chloride (KCL 20MEQ/SWFI 100ML) 100 ML ASDIR PRN IV Sodium Bicarbonate (SODIUM BICARBONATE) 50 MEQ A SDIR PRN IV Sodium Chloride (SODIUM CHLORIDE 0.9%) 1,000 ML .Q20H IV Sodium Chloride (SODIUM CHLORIDE 0.9%) 250 ML Q2 4H IV Amiodarone HCl (Cordarone I.V.) 0 .STK-MED ONE I V (DC) Metoclopramide HCl (REGLAN) 0 .STK-MED ONE .ROUT E (DC) Ondansetron HCl (ZOFRAN) 0 .STK-MED ONE .ROUTE ( DC) Amlodipine Besylate (NORVASC) 5 MG DAILY PO (DC) Aspirin (ASPIRIN) 81 MG DAILY PO (DC) Hydrochlorothiazide (HYDRODIURIL) 12.5 MG DAILY PO (DC) Lisinopril (ZESTRIL) 20 MG DAILY PO (DC) Hydrochlorothiazide (HYDRODIURIL) 12.5 MG Lisinopril (ZESTRIL) 20 MG DAILY PO (DC) Metoprolol Succinate (TOPROL XL) 50 MG DAILY PO (CAN) Mesalamine (DELZICOL 400MG CAP ) 800 MG AC BK DIN PO (DC) Fentanyl Citrate (SUBLIMAZE) 0 .STK-MED ONE IV ( DC) Propofol (DIPRIVAN 200MG/20ML INJECTION) 20 ML . STK-MED ONE IV (DC) Dexamethasone Sodium Phosphate (DECADRON) 0 .STK -MED ONE .ROUTE (DC) Esmolol HCl (BREVIBLOC) 0 .STK-MED ONE IV (DC) Lidocaine HCl (XYLOCAINE) 0 .STK-MED ONE .ROUTE (DC) Ondansetron HCl (ZOFRAN) 0 .STK-MED ONE .ROUTE ( DC) Rocuronium [employer] (ZEMURON) 0 .STK-MED ONE IV ( DC) Sodium Chloride (SODIUM CHLORIDE 0.9%) 100 ML .S TK-MED ONE IV (DC) Pantoprazole (PROTONIX) 40 MG 0600 PO (DC) Vancomycin HCl (Vancomycin 1,250 mg Inj (B2)) 0 .STK-MED ONE IV (DC) Cefazolin Sodium (KEFZOL OR ANCEF) 0 .STK-MED ON E .ROUTE (DC) Famotidine (PEPCID) 0 .STK-MED ONE IV (DC) Milrinone Lactate/Dextrose (MILRINONE 20MG/D5W 1 00ML) 0 .STK-MED ONE IV (DC) Protamine Sulfate (PROTAMINE SULFATE) 0 .STK-MED ONE IV (DC) Sodium Chloride (SODIUM CHLORIDE 0.9%) 250 ML .S TK-MED ONE IV (DC) Epinephrine HCl (EPINEPHrine 4 mg/D5W 250 mL) 25 0 ML .STK-MED ONE IV (DC ) Insulin Human Regular (HumuLIN R 100 UNITS/NS 10 0ML) 100 ML .STK-MED ONE IV (DC) Aminocaproic Acid (AMICAR) 0 .STK-MED ONE IV (DC ) Heparin Sodium (HEPARIN SODIUM) 0 .STK-MED ONE .ROUTE (DC) Nitroglycerin/Dextrose (NITROGLYCERIN 50,000MCG/ D5W 250ML) 250 ML .STK-MED ONE IV (DC) Norepinephrine Bitartrate (NOREPINEPHRINE 8 MG/N S 250 ML) 250 ML .STK-MED ONE IV (DC) Ropivacaine (NAROPIN 0.5% 150 MG/30mL) 0 .STK-ME D ONE .ROUTE (DC) Calcium Chloride (CALCIUM CHLORIDE) 0 .STK-MED O NE IV (DC) Magnesium Sulfate (MAGNESIUM SULFATE) 0 .STK-MED ONE .ROUTE (DC) Lactated Ringer's (LACTATED RINGERS) 1,[address] EOP ONCALL IV (DC) Lidocaine HCl (LIDOCAINE HCL/PF) 2 ML PREOP ONCA LL LOCAL (DC) Lidocaine HCl (LIDOCAINE HCL/PF) 2 ML PREOP ONCA LL LOCAL (DC) Sodium Chloride (SODIUM CHLORIDE 0.9%) [address] EOP ONCALL IV (DC) Sodium Chloride (SODIUM CHLORIDE) 5 ML ASDIR PRN IV (DC) Sodium Chloride (SODIUM CHLORIDE) [address] N IV (DC) Sodium Chloride (SODIUM CHLORIDE 0.9%) 250 ML A SDIR PRN IV (DC) Clindamycin Phosphate/Dextrose (Clindamycin 900 mg/D5W 50 mL) 50 ML PREOP ONCALL IV (DC) Metoprolol Tartrate (LOPRESSOR) 6.25 MG ONCE ONE PO (DC) Vancomycin HCl (Vancomycin 1,250 mg Inj (B2)) 1, 250 MG PREOP ONCALL IV ( DC) Sodium Chloride (SODIUM CHLORIDE 0.9%) 250 ML Albumin Human (ALBUMINAR-25%) 100 ML .STK-MED ON E IV (DC) Heparin Sodium (HEPARIN SODIUM) 0 .STK-MED ONE . ROUTE (DC) Sodium Chloride (SODIUM CHLORIDE 0.9%) 100 ML .S TK-MED ONE IV (DC) Lidocaine HCl (XYLOCAINE IV) 0 .STK-MED ONE IV ( DC) Sodium Bicarbonate (SODIUM BICARBONATE) 0 .STK-M ED ONE IV (DC) Magnesium Sulfate (MAGNESIUM SULFATE) 0 .STK-MED ONE IV (DC) Phenylephrine HCl (KIM-SYNEPHRINE 10MG/ML AMP) 0 .STK-MED ONE .ROUTE (DC ) Acetaminophen (TYLENOL) 650 MG Q6H PRN PRN PO (D C) Gabapentin (NEURONTIN) 600 MG BEDTIME PO (DC) Melatonin (Melatonin) 5 MG BEDTIME PO (DC) Acetaminophen (TYLENOL EXTRA STRENGTH) 1,000 MG PREOP ONCALL PO (DC) Gabapentin (NEURONTIN) 200 MG PREOP ONCALL PO (D C) Mesalamine (DELZICOL 400MG CAP ) 800 MG AC BK DIN PO (DC) Atropine Sulfate (ATROPINE SULFATE 0.1MG/ML SYR) 0.5 MG ASDIR PRN IV (DC ) Sodium Chloride (SODIUM CHLORIDE 0.9%) 1,000 ML .[id number] IV (DC) Sodium Chloride (SODIUM CHLORIDE 0.9%) 500 ML DIR PRN IV (DC) Physical Exam General appearance: respiratory support Cardiovascular: CV assessment: regular rate and rhythm Respiratory: vent support Abdomen: soft Genitourinary: urinary catheter, urine Lower extremity: LE assessment: normal capillary refill, no brady a Neuro/CHARGING MANIPULATOR: sedated Skin: dry Psychiatry: unable to evaluate Results Findings/Data: Laboratory Tests 10/12 10/12 10/12 10/12 1151 1042 1002 0930 Blood Gas Puncture Site Art Line O2 Saturation (90 - 100 %) 98.0 100.0 100.0 100 .0 ABG pH (7.35 - 7.45) 7.365 7.428 7.329 L 7.425 ABG pCO2 (35.0 - 45 mmHg) 38.9 39.7 60.0 *H 45. 6 H ABG pO2 (80 - 100.0 mmHg) 103.8 H 474.7 *H 409. 8 *H 465.8 *H ABG PO2/FiO2 Ratio (mm/Hg) 207.60 ABG HCO3 (22.0 - 26.0 MMOL/L) 22.4 26.3 H 31.5 *H 30.0 *H ABG Total CO2 23.7 27.5 33.4 31.4 ABG Base Excess (-4.0 - 4.0 MMOL/L) -3.1 1.8 4. 8 H 5.0 H ABG Hematocrit (33.0 - 45.0 %) 33 27 L 23 L 23 L ABG Hemoglobin (11.0 - 15.0 G/DL) 11.1 9.0 L 7. 7 L 8.0 L Elyssa Test N/A Sodium (134 - 147 mmol/L) 139 137 135 136 Potassium (3.4 - 5.0 mmol/L) 4.3 3.6 5.2 H 5.2 H Chloride (100 - 108 mmol/L) 104 101 99 L 100 Ionized Calcium (1.12 - 1.32 MMOL/L) 1.37 H 1.1 4 1.11 L 1.08 L Lactic Acid (0.9 - 1.7 mmol/l) 3.5 H 1.4 1.7 Temperature (F) 97 O2 Delivery Device Adult Vent Vent Mode AC Vent Rate (/MIN) 20 FiO2 (%) 50 Tidal Volume (ml) 450 PEEP (cmH2O) 5 10/12 10/12 0842 0705 Blood Gas O2 Saturation (90 - 100 %) 100.0 96.4 ABG pH (7.35 - 7.45) 7.460 H 7.445 ABG pCO2 (35.0 - 45 mmHg) 37.4 40.9 ABG pO2 (80 - 100.0 mmHg) 481.2 *H 81.6 ABG HCO3 (22.0 - 26.0 MMOL/L) 26.6 H 28.1 *H ABG Total CO2 27.8 29.3 ABG Base Excess (-4.0 - 4.0 MMOL/L) 2.7 3.6 ABG Hematocrit (33.0 - 45.0 %) 35 40 ABG Hemoglobin (11.0 - 15.0 G/DL) 11.9 13.6 Sodium (134 - 147 mmol/L) 136 136 Potassium (3.4 - 5.0 mmol/L) 3.9 4.0 Chloride (100 - 108 mmol/L) 100 98 L Ionized Calcium (1.12 - 1.32 MMOL/L) 1.22 1.31 Lactic Acid (0.9 - 1.7 mmol/l) 1.2 2.6 H Laboratory Tests 10/12 10/12 10/12 10/12 10/12 1151 1102 1042 1002 0930 Chemistry Sodium (134 - 147 mEq/L) 139 Potassium (3.4 - 5.0 mEq/L) 4.2 Chloride (100 - 108 mEq/L) 105 Carbon Dioxide (21 - 33 mEq/l) 24 Anion Gap (0 - 20) 14 BUN (7 - 18 mg/dL) 11 Creatinine (0.6 - 1.3 mg/dL) 0.9 POC Creatinine (0.6 - 1.0 mg/dL) 0.6 0.6 0.6 0 .6 Glomerular Filtr Rate (70 - 80) 66.7 L Glucose (70 - 110 mg/dL) 187 H POC Glucose (mg/dL) (70 - 110 MG/DL) 189 H 232 H 191 H 182 H Calcium (8.0 - 10.5 mg/dL) 9.7 Magnesium (1.80 - 2.40 mg/dL) 3.25 H 10/12 10/12 10/12 10/12 10/12 0842 0705 0535 0535 0535 Chemistry Sodium (134 - 147 mEq/L) 137 Potassium (3.4 - 5.0 mEq/L) 3.9 Chloride (100 - 108 mEq/L) 102 Carbon Dioxide (21 - 33 mEq/l) 30 Anion Gap (0 - 20) 9 BUN (7 - 18 mg/dL) 10 Creatinine (0.6 - 1.3 mg/dL) 0.8 POC Creatinine (0.6 - 1.0 mg/dL) 0.6 0.6 Glomerular Filtr Rate (70 - 80) 76.8 Glucose (70 - 110 mg/dL) 151 H POC Glucose (mg/dL) (70 - 110 MG/DL) 202 H 344 H Hemoglobin A1c (4.8 - 6.0 %A1C) 7.1 H Calcium (8.0 - 10.5 mg/dL) 10.0 Magnesium (1.80 - 2.40 mg/dL) 1.80 B-Natriuretic Peptide (0 - 100 PG/ML) 78.0 10/11 1750 Chemistry Sodium (134 - 147 mEq/L) 135 Potassium (3.4 - 5.0 mEq/L) 4.1 Chloride (100 - 108 mEq/L) 102 Carbon Dioxide (21 - 33 mEq/l) 26 Anion Gap (0 - 20) 11 BUN (7 - 18 mg/dL) 8 Creatinine (0.6 - 1.3 mg/dL) 0.9 Glomerular Filtr Rate (70 - 80) 66.7 L Glucose (70 - 110 mg/dL) 172 H Calcium (8.0 - 10.5 mg/dL) 9.8 Total Bilirubin (0.0 - 1.0 mg/dL) 0.50 AST (15 - 37 IUnit/L) 18 ALT (30 - 65 IUnit/L) 24 L Total Alk Phosphatase (20 - 125 IUnit/L) 102 Total Protein (6.4 - 8.2 g/dL) 6.8 Albumin (3.4 - 5.0 g/dL) 3.70 Triglycerides (40 - 150 mg/dL) 279 H Cholesterol (<200 mg/dL) 191 LDL Cholesterol Measurd (0 - 100 mg/dL) 118.0 H HDL Cholesterol (40 - 60 MG/DL) 51.4 Cholesterol/HDL Ratio (3.27 - 4.44 RATIO) 3.72 Laboratory Tests 10/12 10/12 10/12 10/12 10/12 1102 1044 1004 0932 0844 Coagulation INR (0.8 - 1.2) 1.1 PTT (Cheryl) (25.0 - 39.5 Seconds) 38.2 PT Patient/Control Mix (9.3 - 12.9 SECONDS) 12. 5 Activated Coag Time (74 - 137 SEC) 131 630 H 96 7 H 853 H 10/12 10/12 0707 0535 Coagulation INR (0.8 - 1.2) 1.0 PTT (Cheryl) (25.0 - 39.5 Seconds) 30.3 PT Patient/Control Mix (9.3 - 12.9 SECONDS) 11. 2 Activated Coag Time (74 - 137 SEC) 149 H Laboratory Tests 10/12 10/12 1102 0535 Hematology WBC (4.5 - 11.0 x10 3/uL) 34.0 H 8.3 RBC (3.54 - 5.02 x10 6/uL) 3.81 4.48 Hgb (11.0 - 15.0 g/dL) 10.9 L 12.7 Hct (33.0 - 45.0 %) 32.5 L 38.6 MCV (81.0 - 99.0 fL) 85.3 86.2 MCH (27.0 - 33.0 pg) 28.6 28.3 MCHC (33.0 - 37.0 g/dL) 33.5 32.9 L RDW (11.5 - 14.5 %) 14.6 H 14.6 H Plt Count (150 - 400 x10 3/uL) 229 255 MPV (7.0 - 9.0 fL) 10.0 H 10.2 H Neut % (Auto) (56.0 - 77.0 %) 70.8 Lymph % (Auto) (14.0 - 32.0 %) 20.9 Nelson % (Auto) (4.8 - 9.0 %) 4.9 Eos % (Auto) (0.3 - 3.7 %) 2.3 Baso % (Auto) (0.0 - 2.0 %) 0.5 Neut # (Auto) (2.0 - 7.6 x10 3/uL) 5.88 Lymph # (Auto) (1.0 - 3.8 x10 3/uL) 1.74 Nelson # (Auto) (0.1 - 0.8 x10 3/uL) 0.41 Eos # (Auto) (0.0 - 0.2 x10 3/uL) 0.19 Baso # (Auto) (0.0 - 0.2 x10 3/uL) 0.04 Abs Immat Gran (auto) (0.00 - 0.03 x10 3/uL) 0. 05 H Add Manual Diff NO Immature Gran % (0.0 - 2.0 %) 0.6 Nucleated RBC % (0 - 0 %) 0.0 Nucleated RBCs # (Man) (0.0 - 0.1 x10 3/uL) 0.0 0 Laboratory Tests 10/11 1809 Serology SARS-CoV-2 Ag (Rapid) (Negative) Negative Laboratory Tests 10/11 1809 Urines Urine Color (YEL/STRAW) STRAW Urine Appearance (CLEAR) CLEAR Urine pH (5.0 - 7.0) 6.0 Ur Specific [place] (1.005 - 1.030) 1.012 Urine Protein (NEGATIVE) NEGATIVE Urine Glucose (UA) (NEGATIVE) 1+ H Urine Ketones (NEGATIVE) NEGATIVE Urine Blood (NEGATIVE) NEGATIVE Urine Nitrite (NEGATIVE) NEGATIVE Urine Bilirubin (NEGATIVE) NEGATIVE Urine Urobilinogen (0.2 - 1.0 mg/dL) 0.2 Ur Leukocyte Esterase (NEGATIVE) 1+ H Urine RBC (0 - 3 RBC/HPF) 0-3 Urine WBC (0 - 3 WBC/HPF) 10-20 H Ur Squamous Epith Cells (NONE SEEN /HPF) 0-5 Urine Bacteria (NONE SEEN /HPF) TRACE Urine Mucus (NONE SEEN /LPF) TRACE Microbiology Date/Time Procedure - Status Source Growth 10/11 1809 MSSA Surveillance Screen - COMP NASAL 10/11 1809 MRSA DNA Surveillance Screen - COMP NASAL Laboratory Tests 10/12 10/12 10/12 1102 0535 0535 Chemistry Magnesium (1.80 - 2.40 mg/dL) 3.25 H 1.80 B-Natriuretic Peptide (0 - 100 PG/ML) 78.0 Radiology data: Recent Impressions: CAT SCAN - CT CHEST W/O CONTRAST 10/11 1607 Report Impression - Status: SIGNED Entered: 10/12/2022 0837 IMPRESSION: 1. Mild bibasilar fibrotic changes. 2. Mild right middle lobe fibrosis and bronchiec tasis. 3. Scattered ground-glass opacities with reticul onodular changes may represent pneumonitis. Follow-up to ensure r esolution. 4. Pulmonary nodules. Follow-up per Fleischner s ociety guidelines:For patients at low risk (minimal or absent history of smoking and of other known risk factors), no routine follow-up is indicated. For patients at high ris k (history of smoking or of other known risk factors), conside r optional CT Chest at 12 months. (Reference: Ne) References: Ne Carrillo et al. Guidelines for Ma nagement of Incidental Pulmonary Nodules Detected on CT Imag es: From the Fleischner Society 2017. Radiology. 2017;284(1): 228-243. Impression By: [email or web address] Alejandro Benjamin ULTRASOUND - DUP EXTRACRANIAL ANGI 10/11 5322 Report Impression - Status: SIGNED Entered: 10/12/2022 0138 IMPRESSION: Plaque along the bilateral common carotid arteri es and internal carotid arteries. No significant stenosis of the proximal internal carotid arteries by NASCET criteria. REFERENCES: The degree of internal carotid artery stenosis i s based on criteria defined by the IAC Vascular Testing cri teria. Normal is no stenosis. Mild is less than 50% stenosis. Mod erate is 50-69% stenosis. Severe is greater than 69% stenosis to near occlusion. Near occlusion is a markedly narrowed lumen. Tot al occlusion is no detectable patent lumen. Impression By: [email or web address] - Raymond Longo M.D. Diagnosis, Assessment Plan Plan discussed with: collaborating , nurse Free Text DxA P Notes Free Text DxA P Notes: 77 YO female with PMHx of hy pertension, hyperlipidemia, carotid artery disease s /p R CEA who has been having progressively worse madeleine shortness of breath. She was found to have severe mitral valve regurgitat ion. She underwent coronary angiogram for preop workup. LHC showed patent coronary arteries. CT surgery has been consulted for mitral valve surgery. 1. Severe mitral valve regurgitation s/p MVR, PV I, and ALAA * post op care per CTS and ICC 2. Hypertension * monitor off BP meds 3. Hyperlipidemia * continue statin Vivi Bowden 10/13/22 1701: Attestations Physician Attestation Agree w/findings plan: I have seen and examined the pt, I Agree with th e findings and plan as documented by Amarilis Valentin. at 1422 Electronically Signed by Vivi Bowden MD on at 1706 RPT #:[id number] END OF REPORT 2022-10-12 1243-1306 [facility] 11:57:00-00:[address] [place] [address] PATIENT NAME: SWEETIE AMAYA ADMIT DATE: 10/11 ACCOUNT NO: [id number] [place] [facility] [place] AGE: 77 REPORT TYPE: eELECTROCARDIOGRAM REPORT SEX: F ADMITTING PHYSICIAN:Dory Hoff MD ATTENDING PHYSICIAN:Dory Hoff MD Order: [id number] Test Reason : Cardiac Surgery Post Op Test Date/Time Stamp: MonOct 12 2022 11:57:32 Blood Pressure : / mmHG Vent. Rate : 038 BPM Atrial Rate : 000 BPM P-R Int : 000 ms QRS Dur : 088 ms QT Int : 438 ms P-R-T Axes : 000 080 068 degree s QTc Int : 348 ms Junctional bradycardia Nonspecific ST and T wave abnormality Abnormal ECG No previous ECGs available Confirmed by MD ZHOU GERARD ([id number]) on 10/14/19 6:31:41 PM Referred By: Paras Vidales Confirmed by:PRAFUL ZHOU MD Electronically Signed by Praful Zhou MD on 0 10/13/22 at 1831 PATIENT NAME: SWEETIE AMAYA [id number] [id number] [facility] 11:53:00-00:00 [facility] ([facility]) Critical Care Consult Note REPORT#:[id number] REPORT STATUS: Signed DATE:10/12/22 TIME: 1153 PATIENT: SWEETIE AMAYA UNIT #: [id number] ROOM/BED: [place] [id number] : 47 AGE: 77 SEX: F ATTEND: Bella Hoff MD ADM AUTHOR: Olivier Borges MD * ALL edits or amendments must be made on the el [employer]/computer document * History of Present Illness HPI Requesting clinician: Dr Manny Carey Reason for consult: Dyspnea/Dyspnea on exertion Severe mitral regurgitation Elective ventilator dependence Acute pulmonary insufficiency following major ca rdiothoracic surgery Cardiogenic shock Acute blood loss anemia Metabolic acidosis Hypokalemia Chief complaint: Dyspnea/Dyspnea on exertion Severe mitral regurgitation PCP: PCP: Yenny Boone MD HPI: Patient was received in room #2208 after mitral valve replacement for severe mitral regurgitation. Since she also underwent pulmonary vein isolatio n along with ligation of left atrial appendage. Patient received 27 mm mitral is bioprosthetic valve. She is currently a paced. Normal LV function. No parava lvular leak or regurgitation after replacement. PA pressures are at 39/19 mmH g. She is oral intubated with ET tube of 7.0 secured at 21 cm at the teeth. Pa tient received 1.2 L of crystalloids intraoperativel y along with 300 mL of Amicar, 430 mL of Cell Saver. She had 100 mL of EBL and 530 mL of urine outpu t. She is currently on norepinephrine at 1 and epinephrine at 3 mics. Patient received vancomycin and Ancef for antibiotic prophylaxis. She is currently on insulin at 6 units/h and the latest blood glucose is 180 mg/dL. She was f ound to be hypokalemic with a potassium of 3.4 and is receiving 40 mg of potas sium chloride intravenously. She also received 2 g of magnesium sulfate. Ches t tube output is 25 mL in the left pleural and 15 mL in the mediastinal chest tube. Pupils are 2 mm bilaterally symmetrical reactive to light. She i s currently on assist-control at 20 tidal volume 450 PEEP of 5 and 50% FiO2 and the latest blood gas shows a pH of 7.35, pCO2 of 40 mmHg, pO2 of 109 mmHg and bicarbonate of 22 mmol with base excess at -3.1. Creatinine 0.60 mg/dL, gluc ose 189 mg/dL, potassium 4.0 mmol, ionized calcium 1.37 mg/dL, hemoglobin 11. 1 g/dL with hematocrit of 33% and sodium 139. Currently sinus rhythm 80 A-pace d, blood pressure 129/47 mmHg and pulse ox 100% while on 50% FiO2. PA pressure is 39/19 mmHg. Sweetie Amaya is a 77-year-old female with past medical history significant for hypertension, dyslipidem ia, paroxysmal atrial fibrillation, carotid stenosis status post CEA in 2020 was evaluated for shortn ess of breath and dyspnea on exertion over the past several months. She denie s any symptoms at rest. No angina symptoms were reported. Patient r eported lower extremity weakness along with shortness of breath. She underwent echocard iogram in the outpatient setting that showed EF of 60 to 65% with a dilat ed left atrium, moderate to severe mitral regurgitation. 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 There was possibility of chordae tendonee ruptur e evidence of trace tricuspid regurgitation with ascending aorta measuring 3.7 cm. Patient underwent left heart catheterization that showed no significant coronary artery disease. Patient underwent CT surgery evaluation for dre re mitral valve regurgitation for possible mitral valve replacement. Alina shannon was brought to CVICU room #2208 oral intubated on the ventilator. She will be fa st-track for extubation. History - Adult longitudinal Past medical history: Reports: Hypertension, Dyslipidemia. Denies: Ailyn betes mellitus, Anticoagulant therapy, Atrial flutter, Ischemic stroke, Prior AL, Venous thromboembolism. Past surgical history: Reports: Carotid endarterectomy (RIGHT ), Knee p rocedure. Alcohol use: Denies EtOH use Drug use: Denies recreational drugs Smoking status for patients 13 years old or olde r: Never Smoker Medications: Home Medications: Medication Dose/Rte/Freq Days Qty Entered Last Max Daily Dose Reviewed MELATONIN 5 MG PO BEDTIME 10/27/20 10/11/22 Strength: 3 MG TAB 1051 1154 MESALAMINE ER (APRISO) 1.5 GM PO DAILY 10/10/22 10/11/22 Strength: 0.375 GRAM 1300 1154 CAP.SR.24H LISINOPRIL/HCTZ 1 TAB PO DAILY 01/17/13 3 (ZESTORETIC 20/12.5 MG) 1013 1154 Strength: 1 TAB TAB amLODIPine (NORVASC) 5 MG PO DAILY 01/17/13 Strength: 5 MG TAB 1013 1154 OMEPRAZOLE ER (PriLOSEC) 40 MG PO DAILY 8 10/11/22 Strength: 40 MG CAP.DR 1246 1154 ASPIRIN 81 MG PO DAILY 11/27/18 10/11/22 Strength: 81 MG TAB.CHEW 0814 1154 METOPROLOL SUCC XL 50 MG PO DAILY 10/27/2009/24 (TOPROL XL) 1052 1154 Strength: 50 MG TAB.SA ATORVASTATIN (LIPITOR) 20 MG PO 3X WEEKLY 01/2410/11/22 Strength: 20 MG TAB 1438 1154 ASCORBIC ACID (VITAMIN 1,000 MG PO DAILY 10/11/22 C) Strength: 1,000 MG TAB 0959 1154 CHOLECALCIFEROL 1,000 UNITS PO DAILY 10/05/22 0 10/11/22 (VITAMIN D3) 1000 1154 (VITAMIN D3) Strength: 25 MCG (1,000 UNIT) CAP LACTOBACILLUS 1 CAP PO DAILY 10/05/22 10/11/22 ACIDOPHILUS 1001 1154 (PROBIOTIC ACIDOPHILUS) Strength: 1 CAP CAP BIOTIN 10 MG PO DAILY 10/05/22 10/11/22 Strength: 10 MG TAB 1001 1154 GABAPENTIN (NEURONTIN) 600 MG PO BEDTIME 10/11/22 Strength: 300 MG CAP 1002 1154 Current Hospital Medications: Ahfs Category Unknown Sig/Paulette Start time Last Medication Dose Route Stop Time Status Admin Melatonin 5 MG BEDTIME 10/11 2099 DC 10/11 (Melatonin) PO 11/10 Anti-Infective Agents Sig/Paulette Start time Last Medication Dose Route Stop Time Status Admin Vancomycin HCl 1,000 MG Q12H 10/12 223 CAN (VANCOMYCIN HCL) IV 10/13 1129 Sodium Chloride 250 ML (SODIUM CHLORIDE 0.9%) Vancomycin HCl 0 .STK-MED ONE 10/12 1035 DC (VANCOMYCIN HCL) .ROUTE Vancomycin HCl 0 .STK-MED ONE 10/12 0537 DC (Vancomycin 1,250 mg IV Inj (B2)) Cefazolin Sodium 0 .STK-MED ONE 10/12 0535 DC (KEFZOL OR ANCEF) .ROUTE Clindamycin 50 ML PREOP ONCALL 10/12 0500 DC Phosphate/Dextrose IV 10/12 2358 (Clindamycin 900 mg/ D5W 50 mL) Vancomycin HCl 1,250 MG PREOP ONCALL 10/12 0500 DC (Vancomycin 1,250 mg IV 07/19 2359 Inj (B2)) Sodium Chloride 250 ML (SODIUM CHLORIDE 0.9%) Autonomic Drugs Sig/Paulette Start time Last Medication Dose Route Stop Time Status Admin Ipratropium [employer] 500 MCG RTQ2H PRN PRN 10/15 1022 AC (ATROVENT) INH 11/14 1021 Ipratropium [employer] 500 MCG RTQ4H 10/12 1200 AC 10/12 (ATROVENT) INH 10/15 1022 1147 Epinephrine 4 MG ASDIR 10/12 1030 AC (ADRENALIN CHLORIDE) IV 11/11 1029 Dextrose/Water 246 ML (DEXTROSE 5% WATER) Norepinephrine 250 ML TITRATE 10/12 1030 AC Bitartrate IV 11/11 1029 (NOREPINEPHRINE 8 MG/ NS 250 ML) Rocuronium [employer] 0 .STK-MED ONE 10/12 0619 DC (ZEMURON) IV Epinephrine HCl 250 ML .STK-MED ONE 10/12 0534 DC (EPINEPHrine 4 mg/ IV D5W 250 mL) Norepinephrine 250 ML .STK-MED ONE 10/12 0533 DC Bitartrate IV (NOREPINEPHRINE 8 MG/ NS 250 ML) Phenylephrine HCl 0 .STK-MED ONE 10/12 0453 DC (KIM-SYNEPHRINE 10MG/ .ROUTE ML AMP) Atropine Sulfate 0.5 MG ASDIR PRN 10/11 1400 DC (ATROPINE SULFATE IV 10/12 1357 0.1MG/ML SYR) Blood Derivatives Sig/Paulette Start time Last Medication Dose Route Stop Time Status Admin Albumin Human 25 GM ASDIR PRN 10/12 1030 AC (ALBUMINAR 25%) IV 10/13 1022 Albumin Human 100 ML .STK-MED ONE 10/12 0455 D C (ALBUMINAR-25%) IV Blood Formation,Coagulation Sig/Paulette Start time Last Medication Dose Route Stop Time Status Admin Ferrous Sulfate 325 MG DAILY 10/15 0900 AC (FERROUS SULFATE) PO 11/14 0859 Protamine Sulfate 0 .STK-MED ONE 10/12 0535 DC (PROTAMINE SULFATE) IV Aminocaproic Acid 0 .STK-MED ONE 10/12 0533 DC (AMICAR) IV Heparin Sodium 0 .STK-MED ONE 10/12 0533 DC (HEPARIN SODIUM) .ROUTE Heparin Sodium 0 .STK-MED ONE 10/12 0455 DC (HEPARIN SODIUM) .ROUTE Cardiovascular Drugs Sig/Paulette Start time Last Medication Dose Route Stop Time Status Admin Atorvastatin Calcium 40 MG 2100 10/13 2099 AC (LIPITOR) PO 11/12 2058 Atorvastatin Calcium 20 MG MoWeFr 10/12 2100 DC (LIPITOR) PO 11/11 2058 Metoprolol Tartrate 12.5 MG Q12HR 10/12 2100 AC (LOPRESSOR) PO 11/11 2058 Amiodarone HCl 200 MG TID 10/12 1500 AC (CORDARONE) PO 11/11 1459 Nitroglycerin/ 250 ML ASDIR 10/12 1030 AC Dextrose IV 11/11 1029 (NITROGLYCERIN 50,000MCG/D5W 250ML) Amiodarone HCl 0 .STK-MED ONE 10/12 1018 DC (Cordarone I.V.) IV Amlodipine Besylate 5 MG DAILY 10/12 0900 DC (NORVASC) PO 11/11 0859 Lisinopril 20 MG DAILY 10/12 0900 DC (ZESTRIL) PO 11/11 0859 Hydrochlorothiazide 12.5 MG (HYDRODIURIL) Lisinopril 20 MG DAILY 10/12 0900 DC (ZESTRIL) PO 11/11 0859 Metoprolol Succinate 50 MG DAILY 10/12 0900 CA N (TOPROL XL) PO 11/11 0859 Esmolol HCl 0 .STK-MED ONE 10/12 0619 DC (BREVIBLOC) IV Lidocaine HCl 0 .STK-MED ONE 10/12 0619 DC (XYLOCAINE) .ROUTE Milrinone Lactate/ 100 ML .STK-MED ONE 10/12 05 35 DC Dextrose IV (MILRINONE 20MG/D5W 100ML) Nitroglycerin/ 250 ML .STK-MED ONE 10/12 0533 D C Dextrose IV (NITROGLYCERIN 50,000MCG/D5W 250ML) Lidocaine HCl 2 ML PREOP ONCALL 10/12 0530 DC (LIDOCAINE HCL/PF) LOCAL 11/11 235 Lidocaine HCl 2 ML PREOP ONCALL 10/12 0530 DC (LIDOCAINE HCL/PF) LOCAL 11/11 235 Metoprolol Tartrate 6.25 MG ONCE ONE 10/12 050 0 DC (LOPRESSOR) PO 10/12 0501 Lidocaine HCl 0 .STK-MED ONE 10/12 0454 DC (XYLOCAINE IV) IV Central Nervous System Agents Sig/Paulette Start time Last Medication Dose Route Stop Time Status Admin Gabapentin 200 MG BID 10/12 2100 AC (NEURONTIN) PO 10/17 0901 Aspirin 81 MG DAILY 10/12 1622 AC (ASPIRIN) PO 11/11 1621 Acetaminophen 650 MG Q4H PRN PRN 10/12 1030 AC (TYLENOL) PO 11/11 1029 Acetaminophen 650 MG Q4H PRN PRN 10/12 1030 AC (TYLENOL) RECTAL 11/11 1029 Magnesium Sulfate 100 ML ASDIR PRN 10/12 1030 A C (MAGNESIUM SULFATE IV 11/11 1029 4GM/SWFI 100ML) Magnesium Sulfate 50 ML ASDIR PRN 10/12 1030 AC (MAGNESIUM SULFATE IV 11/11 1029 2GM/SWFI 50ML) Magnesium Sulfate/ 100 ML ASDIR PRN 10/12 1030 AC Dextrose IV 11/11 1029 (MAGNESIUM SULFATE 1GM/D5W 100ML) Morphine Sulfate 4 MG Q2H PRN PRN 10/12 1030 AC (morphine SULFATE) IV 10/17 1029 Oxycodone HCl 5 MG Q4H PRN PRN 10/12 1030 AC (ROXICODONE) PO 10/17 1029 Oxycodone HCl 10 MG Q4H PRN PRN 10/12 1030 AC (ROXICODONE) PO 10/17 1029 Aspirin 81 MG DAILY 10/12 0900 DC (ASPIRIN) PO 11/11 0859 Fentanyl Citrate 0 .STK-MED ONE 10/12 0634 DC (SUBLIMAZE) IV Propofol 20 ML .STK-MED ONE 10/12 0634 DC (DIPRIVAN 200MG/20ML IV INJECTION) Magnesium Sulfate 0 .STK-MED ONE 10/12 0532 DC (MAGNESIUM SULFATE) .ROUTE Magnesium Sulfate 0 .STK-MED ONE 10/12 0453 DC (MAGNESIUM SULFATE) IV Acetaminophen 650 MG Q6H PRN PRN 10/11 2115 DC 10/11 (TYLENOL) PO 11/10 211 2136 Gabapentin 600 MG BEDTIME 10/11 2100 DC 10/11 (NEURONTIN) PO 11/10 2058 2045 Acetaminophen 1,000 MG PREOP ONCALL 10/11 1700 DC 10/12 (TYLENOL EXTRA PO 11/10 1659 0604 STRENGTH) Gabapentin 200 MG PREOP ONCALL 10/11 1700 DC (NEURONTIN) PO 11/10 2359 0604 Electrolytic, Caloric, And Ann Marie Sig/Paulette Start time Last Medication Dose Route Stop Time Status Admin Parenteral 1,000 ML .[facility] ONE 10/12 1122 DC Electrolytes IV (PLASMA-LYTE A pH 7.4) Potassium Chloride 200 ML .[facility] ONE 10/12 10 45 DC (KCL 20MEQ/SWFI IV 100ML) Calcium Chloride 1 GM ASDIR PRN 10/12 1030 AC (CALCIUM CHLORIDE) IV 11/11 1029 Dextrose/Water 125 ML ASDIR PRN 10/12 1030 CKD (DEXTROSE 10% IN IV 11/11 1029 WATER) Dextrose/Water 250 ML ASDIR PRN 10/12 1030 CKD (DEXTROSE 10% IN IV 11/11 1029 WATER) Potassium Chloride 100 ML ASDIR PRN 10/12 1030 AC (KCL 20MEQ/SWFI IV 11/11 1029 100ML) Sodium Bicarbonate 50 MEQ ASDIR PRN 10/12 1030 AC (SODIUM BICARBONATE) IV 11/11 1029 Sodium Chloride 1,000 ML .Q20H 10/12 1030 AC (SODIUM CHLORIDE IV 11/11 1029 0.9%) Sodium Chloride 250 ML Q24H 10/12 1030 AC (SODIUM CHLORIDE IV 11/11 1029 0.9%) Hydrochlorothiazide 12.5 MG DAILY 10/12 0900 DC (HYDRODIURIL) PO 11/11 0859 Sodium Chloride 100 ML .[facility] ONE 10/12 0619 DC (SODIUM CHLORIDE IV 0.9%) Sodium Chloride 250 ML .[facility] ONE 10/12 0535 DC (SODIUM CHLORIDE IV 0.9%) Calcium Chloride 0 .[facility] ONE 10/12 0532 DC (CALCIUM CHLORIDE) IV Lactated Ringer's 1,000 ML PREOP ONCALL 10/12 0 530 DC (LACTATED RINGERS) IV 11/11 235 Sodium Chloride 500 ML PREOP ONCALL 10/12 0530 DC (SODIUM CHLORIDE IV 11/11 235 0.9%) Sodium Chloride 5 ML ASDIR PRN 10/12 0530 DC (SODIUM CHLORIDE) IV 11/11 0529 Sodium Chloride 10 ML ASDIR PRN 10/12 0530 DC (SODIUM CHLORIDE) IV 11/11 0529 Sodium Chloride 250 ML ASDIR PRN 10/12 0530 DC (SODIUM CHLORIDE IV 11/11 0529 0.9%) Sodium Chloride 100 ML .STK-MED ONE 10/12 0455 DC (SODIUM CHLORIDE IV 0.9%) Sodium Bicarbonate 0 .STK-MED ONE 10/12 0454 DC (SODIUM BICARBONATE) IV Sodium Chloride 1,000 ML .[id number] 10/11 1400 DC (SODIUM CHLORIDE IV 10/11 1719 0.9%) Sodium Chloride 500 ML ASDIR PRN 10/11 1400 DC (SODIUM CHLORIDE IV 10/12 1357 0.9%) Eye, Ear, Nose And Throat (Een Sig/Paulette Start time Last Medication Dose Route Stop Time Status Admin Dexamethasone Sodium 0 .STK-MED ONE 10/12 06 DC Phosphate .ROUTE (DECADRON) Gastrointestinal Drugs Sig/Paulette Start time Last Medication Dose Route Stop Time Status Admin Bisacodyl 10 MG ONCE PRN 10/14 1200 AC (DULCOLAX) RECTAL 11/13 1159 Magnesium Hydroxide 30 ML ONCE PRN 10/14 1200 A C (MILK OF MAGNESIA) PO Polyethylene Glycol 17 GM DAILY 10/13 0900 AC (MIRALAX) PO 11/12 0859 Docusate Sodium 100 MG BID 10/12 2100 AC (COLACE) PO 11/11 2058 Sennosides 17.2 MG BEDTIME 10/12 2100 AC (Senna Lax 8.6 MG PO 11/11 2058 TABLET) Ondansetron HCl 4 MG Q6H PRN PRN 10/12 1030 AC (ZOFRAN) IV 11/11 1029 Metoclopramide HCl 0 .STK-MED ONE 10/12 0930 DC (REGLAN) .ROUTE Ondansetron HCl 0 .STK-MED ONE 10/12 0930 DC (ZOFRAN) .ROUTE Mesalamine 800 MG AC BK DIN 10/12 0730 DC (DELZICOL 400MG CAP PO 11/11 0729 ) Ondansetron HCl 0 .STK-MED ONE 10/12 06 DC (ZOFRAN) .ROUTE Pantoprazole 40 MG 0600 10/12 0600 DC 10/12 (PROTONIX) PO 11/11 0559 0512 Famotidine 0 .STK-MED ONE 10/12 0535 DC (PEPCID) IV Mesalamine 800 MG AC BK DIN 10/11 1630 DC (DELZICOL 400MG CAP PO 11/10 1629 ) Hormones And Synthetic Substit Sig/Paulette Start time Last Medication Dose Route Stop Time Status Admin Glucagon 1 MG ASDIR PRN 10/12 1030 AC (GLUCAGON) IM 11/11 1029 Insulin Human Regular 100 UNIT ASDIR 10/12 1030 CKD (HumuLIN R) IV 11/11 1029 Sodium Chloride 99 ML (SODIUM CHLORIDE 0.9%) Insulin Human Regular 100 ML .STK-MED ONE 10/12 0534 DC (HumuLIN R 100 UNITS/ IV NS 100ML) Local Anesthetics (Parenteral) Sig/Paulette Start time Last Medication Dose Route Stop Time Status Admin Ropivacaine 0 .STK-MED ONE 10/12 0533 DC (NAROPIN 0.5% 150 MG/ .ROUTE 30mL) Vitamins Sig/Paulette Start time Last Medication Dose Route Stop Time Status Admin Cyanocobalamin 500 MCG DAILY 10/15 0900 AC (Vitamin B-12 500 PO 11/14 0859 mcg tab) Allergies: Coded Allergies: Penicillins (Intermediate, BREATHING ISSUES- OK W KEFLEX 10/05/22) SPECIFIC Allergy: PENICILLINS Ambulatory status: Independent Review of Systems ROS Unable to obtain due to: Patient is orally intubated on the ventilator af ter mitral valve replacement, pulmonary vein isolation and removal of left atrial appendage for severe mitral regurgitation. Objective Physical Exam VS/I O: Last Documented: Result Date Time B/P 158/75 10/12 0558 B/P Mean 102.5 10/12 0558 Pulse 51 10/12 0558 Pulse Ox 95 10/12 0433 Temp 36.5 10/12 0433 Resp 14 10/12 0433 O2 Delivery Room air 10/11 1639 24 hour I O ending at 0700: 10/12 0700 10/11 1900 Intake Total Output Total Balance Patient 75 kg Weight Weight Standing scale Measurement Method Patient Weight and BMI Weight (kg): 75.000 BMI: 24.8 Medications: Active Meds + DC'd Last 24 Hrs Ipratropium [employer] (ATROVENT) 500 MCG RTQ2H PRN PRN INH Cyanocobalamin (Vitamin B-12 500 mcg tab) 500 MC G DAILY PO Ferrous Sulfate (FERROUS SULFATE) 325 MG DAILY P O Bisacodyl (DULCOLAX) 10 MG ONCE PRN RECTAL Magnesium Hydroxide (MILK OF MAGNESIA) 30 ML ONC E PRN PO Atorvastatin Calcium (LIPITOR) 40 MG 2100 PO Polyethylene Glycol (MIRALAX) 17 GM DAILY PO Vancomycin HCl (VANCOMYCIN HCL) 1,000 MG Q12H IV (CAN) Sodium Chloride (SODIUM CHLORIDE 0.9%) 250 ML Atorvastatin Calcium (LIPITOR) 20 MG MoWeFr PO ( DC) Docusate Sodium (COLACE) 100 MG BID PO Gabapentin (NEURONTIN) 200 MG BID PO Metoprolol Tartrate (LOPRESSOR) 12.5 MG Q12HR PO Sennosides (Senna Lax 8.6 MG TABLET) 17.2 MG BED TIME PO Aspirin (ASPIRIN) 81 MG DAILY PO Amiodarone HCl (CORDARONE) 200 MG TID PO Ipratropium [employer] (ATROVENT) 500 MCG RTQ4H INH Parenteral Electrolytes (PLASMA-LYTE A pH 7.4) 1 ,000 ML .STK-MED ONE IV (DC) Potassium Chloride (KCL 20MEQ/SWFI 100ML) 200 ML .STK-MED ONE IV (DC) Vancomycin HCl (VANCOMYCIN HCL) 0 .STK-MED ONE . ROUTE (DC) Acetaminophen (TYLENOL) 650 MG Q4H PRN PRN PO Acetaminophen (TYLENOL) 650 MG Q4H PRN PRN RECTA L Albumin Human (ALBUMINAR 25%) 25 GM ASDIR PRN IV Calcium Chloride (CALCIUM CHLORIDE) 1 GM ASDIR P RN IV Dextrose/Water (DEXTROSE 10% IN WATER) 125 ML DIR PRN IV (CKD) Dextrose/Water (DEXTROSE 10% IN WATER) 250 ML DIR PRN IV (CKD) Epinephrine (ADRENALIN CHLORIDE) 4 MG ASDIR IV Dextrose/Water (DEXTROSE 5% WATER) 246 ML Glucagon (GLUCAGON) 1 MG ASDIR PRN IM Insulin Human Regular (HumuLIN R) 100 UNIT ASDIR IV (CKD) Sodium Chloride (SODIUM CHLORIDE 0.9%) 99 ML Magnesium Sulfate (MAGNESIUM SULFATE 4GM/SWFI 10 0ML) 100 ML ASDIR PRN IV Magnesium Sulfate (MAGNESIUM SULFATE 2GM/SWFI 50 ML) 50 ML ASDIR PRN IV Magnesium Sulfate/Dextrose (MAGNESIUM SULFATE 1G M/D5W 100ML) 100 ML ASDIR PRN IV Morphine Sulfate (morphine SULFATE) 4 MG Q2H PRN PRN IV Nitroglycerin/Dextrose (NITROGLYCERIN 50,000MCG/ D5W 250ML) 250 ML ASDIR IV Norepinephrine Bitartrate (NOREPINEPHRINE 8 MG/N S 250 ML) 250 ML TITRATE IV Ondansetron HCl (ZOFRAN) 4 MG Q6H PRN PRN IV Oxycodone HCl (ROXICODONE) 5 MG Q4H PRN PRN PO Oxycodone HCl (ROXICODONE) 10 MG Q4H PRN PRN PO Potassium Chloride (KCL 20MEQ/SWFI 100ML) 100 ML ASDIR PRN IV Sodium Bicarbonate (SODIUM BICARBONATE) 50 MEQ A SDIR PRN IV Sodium Chloride (SODIUM CHLORIDE 0.9%) 1,000 ML .Q20H IV Sodium Chloride (SODIUM CHLORIDE 0.9%) 250 ML Q2 4H IV Amiodarone HCl (Cordarone I.V.) 0 .STK-MED ONE I V (DC) Metoclopramide HCl (REGLAN) 0 .STK-MED ONE .ROUT E (DC) Ondansetron HCl (ZOFRAN) 0 .STK-MED ONE .ROUTE ( DC) Amlodipine Besylate (NORVASC) 5 MG DAILY PO (DC) Aspirin (ASPIRIN) 81 MG DAILY PO (DC) Hydrochlorothiazide (HYDRODIURIL) 12.5 MG DAILY PO (DC) Lisinopril (ZESTRIL) 20 MG DAILY PO (DC) Hydrochlorothiazide (HYDRODIURIL) 12.5 MG Lisinopril (ZESTRIL) 20 MG DAILY PO (DC) Metoprolol Succinate (TOPROL XL) 50 MG DAILY PO (CAN) Mesalamine (DELZICOL 400MG CAP DR.) 800 MG AC BK DIN PO (DC) Fentanyl Citrate (SUBLIMAZE) 0 .STK-MED ONE IV ( DC) Propofol (DIPRIVAN 200MG/20ML INJECTION) 20 ML . STK-MED ONE IV (DC) Dexamethasone Sodium Phosphate (DECADRON) 0 .STK -MED ONE .ROUTE (DC) Esmolol HCl (BREVIBLOC) 0 .STK-MED ONE IV (DC) Lidocaine HCl (XYLOCAINE) 0 .STK-MED ONE .ROUTE (DC) Ondansetron HCl (ZOFRAN) 0 .STK-MED ONE .ROUTE (DC) Rocuronium [employer] (ZEMURON) 0 .STK-MED ONE IV ( DC) Sodium Chloride (SODIUM CHLORIDE 0.9%) 100 ML .S TK-MED ONE IV (DC) Pantoprazole (PROTONIX) 40 MG 0600 PO (DC) Vancomycin HCl (Vancomycin 1,250 mg Inj (B2)) 0 .STK-MED ONE IV (DC) Cefazolin Sodium (KEFZOL OR ANCEF) 0 .STK-MED ON E .ROUTE (DC) Famotidine (PEPCID) 0 .STK-MED ONE IV (DC) Milrinone Lactate/Dextrose (MILRINONE 20MG/D5W 1 00ML) 100 ML .STK-MED ONE IV (DC) Protamine Sulfate (PROTAMINE SULFATE) 0 .STK-MED ONE IV (DC) Sodium Chloride (SODIUM CHLORIDE 0.9%) 250 ML .S TK-MED ONE IV (DC) Epinephrine HCl (EPINEPHrine 4 mg/D5W 250 mL) 25 0 ML .STK-MED ONE IV (DC ) Insulin Human Regular (HumuLIN R 100 UNITS/NS 10 0ML) 100 ML .STK-MED ONE IV (DC) Aminocaproic Acid (AMICAR) 0 .STK-MED ONE IV (DC ) Heparin Sodium (HEPARIN SODIUM) 0 .STK-MED ONE . ROUTE (DC) Nitroglycerin/Dextrose (NITROGLYCERIN 50,000MCG/ D5W 250ML) 250 ML .STK-MED ONE IV (DC) Norepinephrine Bitartrate (NOREPINEPHRINE 8 MG/N S 250 ML) 250 ML .STK-MED ONE IV (DC) Ropivacaine (NAROPIN 0.5% 150 MG/30mL) 0 .STK-ME D ONE .ROUTE (DC) Calcium Chloride (CALCIUM CHLORIDE) 0 .STK-MED O NE IV (DC) Magnesium Sulfate (MAGNESIUM SULFATE) 0 .STK-MED ONE .ROUTE (DC) Lactated Ringer's (LACTATED RINGERS) 1,[address] EOP ONCALL IV (DC) Lidocaine HCl (LIDOCAINE HCL/PF) 2 ML PREOP ONCA LL LOCAL (DC) Lidocaine HCl (LIDOCAINE HCL/PF) 2 ML PREOP ONCA LL LOCAL (DC) Sodium Chloride (SODIUM CHLORIDE 0.9%) [address] EOP ONCALL IV (DC) Sodium Chloride (SODIUM CHLORIDE) 5 ML ASDIR PRN IV (DC) Sodium Chloride (SODIUM CHLORIDE) [address] N IV (DC) Sodium Chloride (SODIUM CHLORIDE 0.9%) 250 ML DIR PRN IV (DC) Clindamycin Phosphate/Dextrose (Clindamycin 900 mg/D5W 50 mL) 50 ML PREOP ONCALL IV (DC) Metoprolol Tartrate (LOPRESSOR) 6.25 MG ONCE ONE PO (DC) Vancomycin HCl (Vancomycin 1,250 mg Inj (B2)) 1, 250 MG PREOP ONCALL IV ( DC) Sodium Chloride (SODIUM CHLORIDE 0.9%) 250 ML Albumin Human (ALBUMINAR-25%) 100 ML .STK-MED ON E IV (DC) Heparin Sodium (HEPARIN SODIUM) 0 .STK-MED ONE . ROUTE (DC) Sodium Chloride (SODIUM CHLORIDE 0.9%) 100 ML .S TK-MED ONE IV (DC) Lidocaine HCl (XYLOCAINE IV) 0 .STK-MED ONE IV ( DC) Sodium Bicarbonate (SODIUM BICARBONATE) 0 .STK-M ED ONE IV (DC) Magnesium Sulfate (MAGNESIUM SULFATE) 0 .STK-MED ONE IV (DC) Phenylephrine HCl (KIM-SYNEPHRINE 10MG/ML AMP) 0 .STK-MED ONE .ROUTE (DC ) Acetaminophen (TYLENOL) 650 MG Q6H PRN PRN PO (D C) Gabapentin (NEURONTIN) 600 MG BEDTIME PO (DC) Melatonin (Melatonin) 5 MG BEDTIME PO (DC) Acetaminophen (TYLENOL EXTRA STRENGTH) 1,000 MG PREOP ONCALL PO (DC) Gabapentin (NEURONTIN) 200 MG PREOP ONCALL PO (D C) Mesalamine (DELZICOL 400MG CAP DR.) 800 MG AC BK DIN PO (DC) Atropine Sulfate (ATROPINE SULFATE 0.1MG/ML SYR) 0.5 MG ASDIR PRN IV (DC ) Sodium Chloride (SODIUM CHLORIDE 0.9%) 1,000 ML .[id number] IV (DC) Sodium Chloride (SODIUM CHLORIDE 0.9%) 500 ML DIR PRN IV (DC) General appearance: altered mental status, respi ratory support, no acute distress, no respiratory distress Head/Eyes: atraumatic, clear cornea, normocephal ic, PERRL ENT: intubated, normal nose, normal sinus Neck: non-tender, normal thyroid, no JVD, no mas ses or swelling Cardiovascular: rub, regular rate and rhythm, no rmal S1/S2 Respiratory: aerating well, clear to auscultatio n, symmetric expansion, no distress Abdomen: soft, non-tender, no distention, no gua rding Genitourinary: urinary catheter, no bladder dist ention, no flank pain Extremities: no clubbing, no cyanosis, no edema Skin: dry, normal color, normal temperature, no rash Psychiatry: unable to evaluate Results Findings/Data: Laboratory Tests 10/12/22 0535: [Embedded Image Not Available] 10/11/22 1750: [Embedded Image Not Available] Laboratory Tests 10/12 10/12 10/12 10/12 1151 1042 1002 0930 Blood Gas Puncture Site Art Line O2 Saturation (90 - 100 %) 98.0 100.0 100.0 10 0.0 ABG pH (7.35 - 7.45) 7.365 7.428 7.329 L 7.425 ABG pCO2 (35.0 - 45 mmHg) 38.9 39.7 60.0 *H 45 .6 H ABG pO2 (80 - 100.0 mmHg) 103.8 H 474.7 *H 409. 8 *H 465.8 *H ABG PO2/FiO2 Ratio (mm/Hg) 207.60 ABG HCO3 (22.0 - 26.0 MMOL/L) 22.4 26.3 H 31.5 *H 30.0 *H ABG Total CO2 23.7 27.5 33.4 31.4 ABG Base Excess (-4.0 - 4.0 MMOL/L) -3.1 1.8 4. 8 H 5.0 H ABG Hematocrit (33.0 - 45.0 %) 33 27 L 23 L 23 L ABG Hemoglobin (11.0 - 15.0 G/DL) 11.1 9.0 L 7. 7 L 8.0 L Elyssa Test N/A Sodium (134 - 147 mmol/L) 139 137 135 136 Potassium (3.4 - 5.0 mmol/L) 4.3 3.6 5.2 H 5.2 H Chloride (100 - 108 mmol/L) 104 101 99 L 100 Ionized Calcium (1.12 - 1.32 MMOL/L) 1.37 H 1.1 4 1.11 L 1.08 L Lactic Acid (0.9 - 1.7 mmol/l) 3.5 H 1.4 1.7 Temperature (F) 97 O2 Delivery Device Adult Vent Vent Mode AC Vent Rate (/MIN) 20 FiO2 (%) 50 Tidal Volume (ml) 450 PEEP (cmH2O) 5 10/12 10/12 0842 0705 Blood Gas O2 Saturation (90 - 100 %) 100.0 96.4 ABG pH (7.35 - 7.45) 7.460 H 7.445 ABG pCO2 (35.0 - 45 mmHg) 37.4 40.9 ABG pO2 (80 - 100.0 mmHg) 481.2 *H 81.6 ABG HCO3 (22.0 - 26.0 MMOL/L) 26.6 H 28.1 *H ABG Total CO2 27.8 29.3 ABG Base Excess (-4.0 - 4.0 MMOL/L) 2.7 3.6 ABG Hematocrit (33.0 - 45.0 %) 35 40 ABG Hemoglobin (11.0 - 15.0 G/DL) 11.9 13.6 Sodium (134 - 147 mmol/L) 136 136 Potassium (3.4 - 5.0 mmol/L) 3.9 4.0 Chloride (100 - 108 mmol/L) 100 98 L Ionized Calcium (1.12 - 1.32 MMOL/L) 1.22 1.31 Lactic Acid (0.9 - 1.7 mmol/l) 1.2 2.6 H Laboratory Tests 10/12 10/12 10/12 10/12 10/12 1151 1042 1002 0930 0842 Chemistry POC Creatinine (0.6 - 1.0 mg/dL) 0.6 0.6 0.6 0. 6 0.6 POC Glucose (mg/dL) (70 - 110 MG/DL) 189 H 232 H 191 H 182 H 202 H 10/12 10/12 10/12 10/12 10/11 0705 0535 0535 0535 1750 Chemistry Sodium (134 - 147 mEq/L) 137 135 Potassium (3.4 - 5.0 mEq/L) 3.9 4.1 Chloride (100 - 108 mEq/L) 102 102 Carbon Dioxide (21 - 33 mEq/l) 30 26 Anion Gap (0 - 20) 9 11 BUN (7 - 18 mg/dL) 10 8 Creatinine (0.6 - 1.3 mg/dL) 0.8 0.9 POC Creatinine (0.6 - 1.0 mg/dL) 0.6 Glomerular Filtr Rate (70 - 80) 76.8 66.7 L Glucose (70 - 110 mg/dL) 151 H 172 H POC Glucose (mg/dL) (70 - 110 MG/DL) 344 H Hemoglobin A1c (4.8 - 6.0 %A1C) 7.1 H Calcium (8.0 - 10.5 mg/dL) 10.0 9.8 Magnesium (1.80 - 2.40 mg/dL) 1.80 Total Bilirubin (0.0 - 1.0 mg/dL) 0.50 AST (15 - 37 IUnit/L) 18 ALT (30 - 65 IUnit/L) 24 L Total Alk Phosphatase (20 - 125 102 IUnit/L) B-Natriuretic Peptide (0 - 100 PG/ML) 78.0 Total Protein (6.4 - 8.2 g/dL) 6.8 Albumin (3.4 - 5.0 g/dL) 3.70 Triglycerides (40 - 150 mg/dL) 279 H Cholesterol (<200 mg/dL) 191 LDL Cholesterol Measurd (0 - 100 118.0 H mg/dL) HDL Cholesterol (40 - 60 MG/DL) 51.4 Cholesterol/HDL Ratio (3.27 - 4.44 3.72 RATIO) Laboratory Tests 10/12 10/12 10/12 10/12 10/12 1044 1004 0932 0844 0707 Coagulation Activated Coag Time (74 - 137 SEC) 131 630 H 96 7 H 853 H 149 H 10/12 0535 Coagulation INR (0.8 - 1.2) 1.0 PTT (Cheryl) (25.0 - 39.5 Seconds) 30.3 PT Patient/Control Mix (9.3 - 12.9 SECONDS) 11. 2 Laboratory Tests 10/12 0535 Hematology WBC (4.5 - 11.0 x10 3/uL) 8.3 RBC (3.54 - 5.02 x10 6/uL) 4.48 Hgb (11.0 - 15.0 g/dL) 12.7 Hct (33.0 - 45.0 %) 38.6 MCV (81.0 - 99.0 fL) 86.2 MCH (27.0 - 33.0 pg) 28.3 MCHC (33.0 - 37.0 g/dL) 32.9 L RDW (11.5 - 14.5 %) 14.6 H Plt Count (150 - 400 x10 3/uL) 255 MPV (7.0 - 9.0 fL) 10.2 H Neut % (Auto) (56.0 - 77.0 %) 70.8 Lymph % (Auto) (14.0 - 32.0 %) 20.9 Nelson % (Auto) (4.8 - 9.0 %) 4.9 Eos % (Auto) (0.3 - 3.7 %) 2.3 Baso % (Auto) (0.0 - 2.0 %) 0.5 Neut # (Auto) (2.0 - 7.6 x10 3/uL) 5.88 Lymph # (Auto) (1.0 - 3.8 x10 3/uL) 1.74 Nelson # (Auto) (0.1 - 0.8 x10 3/uL) 0.41 Eos # (Auto) (0.0 - 0.2 x10 3/uL) 0.19 Baso # (Auto) (0.0 - 0.2 x10 3/uL) 0.04 Abs Immat Gran (auto) (0.00 - 0.03 x10 3/uL) 0. 05 H Add Manual Diff NO Immature Gran % (0.0 - 2.0 %) 0.6 Nucleated RBC % (0 - 0 %) 0.0 Nucleated RBCs # (Man) (0.0 - 0.1 x10 3/uL) 0.0 0 Laboratory Tests 10/11 1809 Serology SARS-CoV-2 Ag (Rapid) (Negative) Negative Laboratory Tests 10/11 1809 Urines Urine Color (YEL/STRAW) STRAW Urine Appearance (CLEAR) CLEAR Urine pH (5.0 - 7.0) 6.0 Ur Specific [place] (1.005 - 1.030) 1.012 Urine Protein (NEGATIVE) NEGATIVE Urine Glucose (UA) (NEGATIVE) 1+ H Urine Ketones (NEGATIVE) NEGATIVE Urine Blood (NEGATIVE) NEGATIVE Urine Nitrite (NEGATIVE) NEGATIVE Urine Bilirubin (NEGATIVE) NEGATIVE Urine Urobilinogen (0.2 - 1.0 mg/dL) 0.2 Ur Leukocyte Esterase (NEGATIVE) 1+ H Urine RBC (0 - 3 RBC/HPF) 0-3 Urine WBC (0 - 3 WBC/HPF) 10-20 H Ur Squamous Epith Cells (NONE SEEN /HPF) 0-5 Urine Bacteria (NONE SEEN /HPF) TRACE Urine Mucus (NONE SEEN /LPF) TRACE Microbiology: 10/11 1809 URINE: Urine Culture - [facility] 10/11 1809 NASAL: MSSA Surveillance Screen - COM P 10/11 1809 NASAL: MRSA DNA Surveillance Screen - COMP 10/11 1646 NASAL: MSSA Surveillance Screen - ORD 10/11 1646 NASAL: MRSA DNA Surveillance Screen - ORD Radiology data: Recent Impressions: CAT SCAN - CT CHEST W/O CONTRAST 10/11 1607 Report Impression - Status: SIGNED Entered: 10/12/2022 0837 IMPRESSION: 1. Mild bibasilar fibrotic changes. 2. Mild right middle lobe fibrosis and bronchiec tasis. 3. Scattered ground-glass opacities with reticul onodular changes may represent pneumonitis. Follow-up to ensure r esolution. 4. Pulmonary nodules. Follow-up per Fleischner s ociety guidelines:For patients at low risk (minimal or absent history of smoking and of other known risk factors), no routine follow-up is indicated. For patients at high ris k (history of smoking or of other known risk factors), conside r optional CT Chest at 12 months. (Reference: Ne) References: Juanhoshay H, et al. Guidelines for Ma nagement of Incidental Pulmonary Nodules Detected on CT Imag es: From the Fleischner Society 2017. Radiology. 2017;284(1): 228-243. Impression By: [email or web address] - Alejandro Leyva ULTRASOUND - DUP EXTRACRANIAL ANGI 10/11 1078 Report Impression - Status: SIGNED Entered: 10/12/2022 0138 IMPRESSION: Plaque along the bilateral common carotid arteri es and internal carotid arteries. No significant stenosis of the proximal internal carotid arteries by NASCET criteria. REFERENCES: The degree of internal carotid artery stenosis i s based on criteria defined by the IAC Vascular Testing cri teria. Normal is no stenosis. Mild is less than 50% stenosis. Mod erate is 50-69% stenosis. Severe is greater than 69% stenosis to near occlusion. Near occlusion is a markedly narrowed lumen. Tot al occlusion is no detectable patent lumen. Impression By: [email or web address] - Raymond Longo M.D. Results: labs reviewed, vital signs reviewed, vi anjel signs stable, rhythm personally rev'd, current med profile rev'd Diagnosis, Assessment Plan Diagnosis, Assessment Plan Consultants: anesthesiology, cardiology, cardiov ascular surgery, critical/ clubhouse manager, hospitalist Plan discussed with: consultants, nurse, interdi sc care team, pharmacy/ pharmacist Critical care time: Minutes: 45 Code Status/Resusc. Discussion Resuscitation discussion: Discussed with: family Code status: full code Free text DxA P: Problem List: Dyspnea/Dyspnea on exertion Severe mitral regurgitation Elective ventilator dependence Acute pulmonary insufficiency following major ca rdiothoracic surgery Cardiogenic shock Acute blood loss anemia Metabolic acidosis Hypokalemia Assessment and Plan: Patient was received in room #2208 after mitral valve replacement for severe mitral regurgitation. Since she also underwent pulmonary vein isolatio n along with ligation of left atrial appendage. Patient received 27 mm mitral is bioprosthetic valve. She is currently a paced. Normal LV function. No parava lvular leak or regurgitation after replacement. PA pressures are at 39/19 mmH g. She is oral intubated with ET tube of 7.0 secured at 21 cm at the teeth. Pa tient received 1.2 L of crystalloids intraoperativel y along with 300 mL of Amicar, 430 mL of Cell Saver. She had 100 mL of EBL and 530 mL of urine outpu t. She is currently on norepinephrine at 1 and epinephrine at 3 mics. Patient received vancomycin and Ancef for antibiotic prophylaxis. She is currently on insulin at 6 units/h and the latest blood glucose is 180 mg/dL. She was f ound to be hypokalemic with a potassium of 3.4 and is receiving 40 mg of potas sium chloride intravenously. She also received 2 g of magnesium sulfate. Ches t tube output is 25 mL in the left pleural and 15 mL in the mediastinal chest tube. Pupils are 2 mm bilaterally symmetrical reactive to light. She i s currently on assist-control at 20 tidal volume 450 PEEP of 5 and 50% FiO2 and the latest blood gas shows a pH of 7.35, pCO2 of 40 mmHg, pO2 of 109 mmHg and bicarbonate of 22 mmol with base excess at -3.1. Creatinine 0.60 mg/dL, gluc ose 189 mg/dL, potassium 4.0 mmol, ionized calcium 1.37 mg/dL, hemoglobin 11. 1 g/dL with hematocrit of 33% and sodium 139. Currently sinus rhythm 80 A-pace d, blood pressure 129/47 mmHg and pulse ox 100% while on 50% FiO2. PA pressure is 39/19 mmHg. Sweetie Amaya is a 77-year-old female with past medical history significant for hypertension, dyslipidem ia, paroxysmal atrial fibrillation, carotid stenosis status post CEA in 2020 was evaluated for shortn ess of breath and dyspnea on exertion over the past several months. She denie s any symptoms at rest. No angina symptoms were reported. Patient r eported lower extremity weakness along with shortness of breath. She underwent echocard iogram in the outpatient setting that showed EF of 60 to 65% with a dilat ed left atrium, moderate to severe mitral regurgitation. 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 There was possibility of chordae tendonee ruptur e evidence of trace tricuspid regurgitation with ascending aorta measuring 3.7 cm. Patient underwent left heart catheterization that showed no significant coronary artery disease. Patient underwent CT surgery evaluation for dre re mitral valve regurgitation for possible mitral valve replacement. Alina shannon was brought to CVICU room #2208 oral intubated on the ventilator. She will be fa st-track for extubation. Post-op day 0 after mitral valve replacement for severe mitral regurgitation along with pulmonary vein isolation as well as l eft atrial appendecectomy Patient received 27 mm Mitris bioprosthetic valv e Patient is on elective ventilator depend ence for acute pulmonary insufficiency following major cardiothoracic surgery Currently on assist-control at 20 tidal volume 4 50 PEEP of 5 and 50% FiO2 Latest blood gas shows 7.35, pCO2 of 40 mmHg, pO2 of 109 mmHg and bicarbonate of 22 mmol with base excess at -3.1 Mild metabolic acidosis, give 1 amp of sodium bi carb Follow ABG Patient is altered at this time recovering from anesthesia She will be fast-track for extubate Monitor chest tube output Left pleural output is 25 mL and mediastinal out put is 15 mL Hypomagnesemia, patient received 2 g of magnesiu m sulfate Hypokalemia with a potassium of 3.4 mmol and pat ient receiving 40 mg of potassium chloride Glycemic control with insuli n at 6 units/h and latest blood glucose is 180 mg/dL Perioperative antibiotic therapy with vancomycin and Ancef Patient is currently on vaso pressor and inotropic support with norepinephrine at 1 mcg and epinephrine at 3 mcg Follow blood pressure closely Use albumin as needed No paravalvular leak or mitral regurgitation pos toperatively Normal LV function SCDs for DVT prophylaxis Olivier Borges MD [facility] 10/12/2022 12.10 PM Electronically Signed by Olivier Borges MD on 09/24 12/17 at 1211 [facility] #:[id number] END OF REPORT 2022-10-12 [id number] [facility] 11:04:00-00:[address] [place] [id number] PATIENT NAME: SWEETIE AMAYA ADMIT DATE: 10/11 ACCOUNT NO: [id number] ROOM NO: G2208 AGE: 77 REPORT TYPE: OPERATIVE REPORT SEX: F ADMITTING PHYSICIAN:Dory Hoff MD ATTENDING PHYSICIAN:Dory Hoff MD OPERATION DATE: 10/12/2022 PREOPERATIVE DIAGNOSES: 1. Mitral regurgitation. 2. Paroxysmal atrial fibrillation. POSTOPERATIVE DIAGNOSES: 1. Mitral regurgitation. 2. Paroxysmal atrial fibrillation. PROCEDURES: 1. Mitral valve replacement (27 Mitris valve). 2. Pulmonary vein isolation. 3. Amputation of left atrial appendage. SURGEON: Navdeep Carey MD COUNTY HISTORIAN: Rafael Lama. ANESTHESIOLOGIST: Dr. Baron. ANESTHESIA: General endotracheal anesthesia. ESTIMATED BLOOD LOSS: 100 mL. INDICATIONS: Ms. Amaya is a 77-year-old fema le with severe mitral regurgitation and paroxysmal atrial fibrillation . After due preop counseling, she was brought to the operating room today for mitral valve replacement, pulmonary vein isolation and amputation of left atrial appendage. FINDINGS: 1. Osteoporotic sternum. 2. Normal pericardium without any intrapericardi al adhesions and minimal intrapericardial fluid. 3. Prolapse of A2, A3 with elongated chordae. In view of the patient age, I opted to just replaced the mitral valve. 4. Left atrial appendage was amputated half a cm from the base. This was then repaired with two layers of running pledgeted 4- 0 Prolene suture. 5. SPENCER at the end of the case did not show any e vidence of paravalvular leak. DESCRIPTION OF PROCEDURE: Ms. Amaya was iden tified in the preoperative holding area and brought to the operating room a nd placed supine on the operating table. After induction of general endo tracheal anesthesia, Janet PATIENT NAME: SWEETIE AMAYA [id number] catheter, radial arterial line, and antibiotics were placed. The patient's anterior torso and both lower extremities were p repped and draped in standard surgical fashion. Median sternotomy was performe d. The patient was heparinized. Pericardium was opened longitudinal ly. Pericardial well was created. Cardiopulmonary bypass was instituted u sing ascending aorta and bicaval cannulation with 24 metal tip cannula in the SVC and 32 bull nose cannula in the IVC. The patient was cooled to 3 2 degrees centigrade. Surgical field was covered all throughout durati on of cardiopulmonary bypass. The [employer] magnetic red rubber catheter was pas sed through the transverse sinus and back through the oblique sinus. This w as then used to guide the AtriCure device and a box lesion x2 was created on all the pulmonary vein using AtriCure device. Next, crossclamp was applied and the heart was arrested with 1.5 antegrade and retrograde cold blood car dioplegia. Cardioplegia was repeated at interval of 10 minutes all throughou t duration of crossclamp. We began by amputating the left atrial appendage 0. 5 cm from the base. This was then repaired with two layers of running pledget ed 4-0 Prolene suture. Attention was shifted to the mitral valve. A sta ndard left atriotomy was performed posterior to Sondergaard's groove. Ada ms retractor was used with good exposure of the mitral valve. The valve was inspected with the above- mentioned finding. The anterior mitral leaflet w as bisected and plicated to the annulus. The annulus was sized to 27 Mitris valve. Circumferential 3-0 Ethibond sutures were placed in the mitral annul us, size 27 Mitris valve was brought into surgical field. The sutures were se quentially passed the sewing ring. The valve was lowered down to the annulus. After confirming proper seating, the sutures were tied. Rewarming was co mmenced at this stage. The left atriotomy was then closed in single layer u sing running 4-0 Prolene suture. Careful de-aeration was performed and th e cross-clamp was released. Two active atrial and one active ventricular was placed. A 28-Trinidadian chest tube was placed in the mediastinum and 28-angled chest tube was placed in the mediastinal space. Once the patient had temperat ure, de-airing maneuvers were repeated and the patient weaned off cardiopulmon danial bypass with minimal inotropic support. Heparin was reversed with pro tamine. Decannulation was uneventful. After confirming hemostasis, the sergio st was closed in layers using stainless steel wires for the sternum, #1 Vicryl for the fascia, 2-0 Vicryl for the subcutaneous tissue and 4-0 Vicryl for t he skin. The patient was transferred to intensive care unit, intubated in stable condition. Dictated By: Navdeep Carey MD Date Dictated: 10/12/2022 11:04:36 Date Transcribed: 10/12/2022 14:03:10 AC/CHRISTIANE/CORWIN/PAUL Receipt ID: [id number] Authenticated and Edited by Manny Carey MD On 10/13/22 4:51:02 PM at 0453 PATIENT NAME: SWEETIE AMAYA [id number] [facility] 10:58:00-00:00 [facility] ([facility]) Brief Op Note REPORT#:[id number] REPORT STATUS: Signed DATE:10/12/22 TIME: 1058 PATIENT: SWEETIE AMAYA UNIT #: [id number] ROOM/BED: [place] [address] : 47 AGE: 77 SEX: F ATTEND: Bella Hoff MD ADM AUTHOR: Navdeep Carey MD * ALL edits or amendments must be made on the el [employer]/computer document * Op/Inv Proc Note - Brief Pre-procedure diagnosis: MR PAF Post-procedure diagnosis: same as pre procedure dx Procedures performed: MVR (27 Mitris) PVI Amputation of YUE Primary Surgeon: Ramirez Electric Engine Mechanic(s): Rafael Lama Findings: Prolapsed A2, A3 Complications: none Estimated blood loss in ml's: 100 cc Specimens removed/altered: YUE at 1059 RPT #:[id number] END OF REPORT 2022-10-12 [facility] 09:23:00-00:00 [facility] ([facility]) Hospitalist History Physical REPORT#:[id number] REPORT STATUS: Signed DATE:10/12/22 TIME: 922 PATIENT: SWEETIE AMAYA UNIT #: [id number] ROOM/BED: [place] [address] : 47 AGE: 77 SEX: F ATTEND: Bella Hoff MD ADM AUTHOR: Nina Melgar MD * ALL edits or amendments must be made on the [employer]/computer document * History of Present Illness HPI Chief complaint: sob HPI: 77 YO female with PMHx of hy pertension, hyperlipidemia, carotid artery disease s /p R CEA was admitted to the hospital for mitral valve surgery . she has been progressively worsening of s ob . she was found severe mitral valve regurgitation . LHC was done . it show no blockage . she had mitral valve surgery today . she was seen in CVICU post procedure . she was intub ated on the vent support . 2 drainage tube are in place . history is obtained from staff and review the chart . History Social History Alcohol use: Denies EtOH use Drug use: Denies recreational drugs Smoking status for patients 13 years old or olde r: Never Smoker Medication/Allergy-Vaccine Hx Allergies: Coded Allergies: Penicillins (Intermediate, BREATHING ISSUES- OK W KEFLEX 10/05/22) SPECIFIC Allergy: PENICILLINS Review of Systems Unable to obtain due to: sedative and intubated OBJECTIVE VS/I O: Vital Signs Date Temp Pulse Resp B/P B/P Mean Pulse Ox FiO2 10/12 36.5-36.6 39-80 14-20 122-166/65-75 83.8- 102.5 95-100 40 Last Documented: Result Date Time Pulse Ox 98 10/12 2004 O2 Delivery Nasal cannula 10/12 2004 O2 Flow Rate 3 10/12 2004 FiO2 40 10/12 1515 Pulse 80 10/12 1515 Resp 20 10/12 1402 B/P 158/75 10/12 0558 B/P Mean 102.5 10/12 0558 Temp 36.5 10/12 0433 24 hour I O ending at 0700: 10/12 0700 10/11 1900 Intake Total Output Total Balance Patient 75 kg Weight Weight Standing scale Measurement Method Patient Weight and BMI Weight (kg): 75.000 BMI: 24.8 Medications: Active Meds + DC'd Last 24 Hrs Ipratropium [employer] (ATROVENT) 500 MCG RTQ2H PRN PRN INH Cyanocobalamin (Vitamin B-12 500 mcg tab) 500 MC G DAILY PO Ferrous Sulfate (FERROUS SULFATE) 325 MG DAILY P O Bisacodyl (DULCOLAX) 10 MG ONCE PRN RECTAL Magnesium Hydroxide (MILK OF MAGNESIA) 30 ML ONC E PRN PO Atorvastatin Calcium (LIPITOR) 40 MG 2100 PO Polyethylene Glycol (MIRALAX) 17 GM DAILY PO Vancomycin HCl (VANCOMYCIN HCL) 1,000 MG Q12H IV (CAN) Sodium Chloride (SODIUM CHLORIDE 0.9%) 250 ML Vancomycin HCl (VANCOMYCIN HCL) 1,000 MG Q12H IV Sodium Chloride (SODIUM CHLORIDE 0.9%) 250 ML Atorvastatin Calcium (LIPITOR) 20 MG MoWeFr PO ( DC) Docusate Sodium (COLACE) 100 MG BID PO Gabapentin (NEURONTIN) 200 MG BID PO Metoprolol Tartrate (LOPRESSOR) 12.5 MG Q12HR PO Sennosides (Senna Lax 8.6 MG TABLET) 17.2 MG BED TIME PO Oxycodone HCl (ROXICODONE) 5 MG Q4H PRN PRN PO Oxycodone HCl (ROXICODONE) 10 MG Q4H PRN PRN PO Aspirin (ASPIRIN) 81 MG DAILY PO Fentanyl Citrate (SUBLIMAZE) 25 MCG ONCE ONE IV (DC) Amiodarone HCl (CORDARONE) 200 MG TID PO Mupirocin (BACTROBAN 2% 22 GM OINTMENT) 1 APPLIC BID NASAL Albumin Human (ALBUMINAR 5% 12.5GM/250ML) 250 ML Q1H IV (DC) Cefazolin Sodium (KEFZOL OR ANCEF) 3 GM ONCE ONE IV Sodium Chloride (SODIUM CHLORIDE 0.9%) 250 ML Ipratropium [employer] (ATROVENT) 500 MCG RTQ4H INH Parenteral Electrolytes (PLASMA-LYTE A pH 7.4) 1 ,000 ML .STK-MED ONE IV (DC) Potassium Chloride (KCL 20MEQ/SWFI 100ML) 200 ML .STK-MED ONE IV (DC) Vancomycin HCl (VANCOMYCIN HCL) 0 .STK-MED ONE . ROUTE (DC) Acetaminophen (TYLENOL) 650 MG Q4H PRN PRN PO Acetaminophen (TYLENOL) 650 MG Q4H PRN PRN RECTA L Albumin Human (ALBUMINAR 25%) 25 GM ASDIR PRN IV Calcium Chloride (CALCIUM CHLORIDE) 1 GM ASDIR P RN IV Dextrose/Water (DEXTROSE 10% IN WATER) 125 ML DIR PRN IV (CKD) Dextrose/Water (DEXTROSE 10% IN WATER) 250 ML DIR PRN IV (CKD) Epinephrine (ADRENALIN CHLORIDE) 4 MG ASDIR IV Dextrose/Water (DEXTROSE 5% WATER) 246 ML Glucagon (GLUCAGON) 1 MG ASDIR PRN IM Insulin Human Regular (HumuLIN R) 100 UNIT ASDIR IV (CKD) Sodium Chloride (SODIUM CHLORIDE 0.9%) 99 ML Magnesium Sulfate (MAGNESIUM SULFATE 4GM/SWFI 10 0ML) 100 ML ASDIR PRN IV Magnesium Sulfate (MAGNESIUM SULFATE 2GM/SWFI 50 ML) 50 ML ASDIR PRN IV Magnesium Sulfate/Dextrose (MAGNESIUM SULFATE 1G M/D5W 100ML) 100 ML ASDIR PRN IV Morphine Sulfate (morphine SULFATE) 4 MG Q2H PRN PRN IV (DC) Nitroglycerin/Dextrose (NITROGLYCERIN 50,000MCG/ D5W 250ML) 250 ML ASDIR IV Norepinephrine Bitartrate (NOREPINEPHRINE 8 MG/N S 250 ML) 250 ML TITRATE IV Ondansetron HCl (ZOFRAN) 4 MG Q6H PRN PRN IV Oxycodone HCl (ROXICODONE) 5 MG Q4H PRN PRN PO ( DC) Oxycodone HCl (ROXICODONE) 10 MG Q4H PRN PRN PO (DC) Potassium Chloride (KCL 20MEQ/SWFI 100ML) 100 ML ASDIR PRN IV Sodium Bicarbonate (SODIUM BICARBONATE) 50 MEQ A SDIR PRN IV Sodium Chloride (SODIUM CHLORIDE 0.9%) 1,000 ML .Q20H IV Sodium Chloride (SODIUM CHLORIDE 0.9%) 250 ML Q2 4H IV Amiodarone HCl (Cordarone I.V.) 0 .STK-MED ONE I V (DC) Metoclopramide HCl (REGLAN) 0 .STK-MED ONE .ROUT E (DC) Ondansetron HCl (ZOFRAN) 0 .STK-MED ONE .ROUTE ( DC) Amlodipine Besylate (NORVASC) 5 MG DAILY PO (DC) Aspirin (ASPIRIN) 81 MG DAILY PO (DC) Hydrochlorothiazide (HYDRODIURIL) 12.5 MG DAILY PO (DC) Lisinopril (ZESTRIL) 20 MG DAILY PO (DC) Hydrochlorothiazide (HYDRODIURIL) 12.5 MG Lisinopril (ZESTRIL) 20 MG DAILY PO (DC) Metoprolol Succinate (TOPROL XL) 50 MG DAILY PO (CAN) Mesalamine (DELZICOL 400MG CAP DR.) 800 MG AC BK DIN PO (DC) Fentanyl Citrate (SUBLIMAZE) 0 .STK-MED ONE IV ( DC) Propofol (DIPRIVAN 200MG/20ML INJECTION) 20 ML . STK-MED ONE IV (DC) Dexamethasone Sodium Phosphate (DECADRON) 0 .STK -MED ONE .ROUTE (DC) Esmolol HCl (BREVIBLOC) 0 .STK-MED ONE IV (DC) Lidocaine HCl (XYLOCAINE) 0 .STK-MED ONE .ROUTE (DC) Ondansetron HCl (ZOFRAN) 0 .STK-MED ONE .ROUTE ( DC) Rocuronium [employer] (ZEMURON) 0 .STK-MED ONE IV ( DC) Sodium Chloride (SODIUM CHLORIDE 0.9%) 100 ML .S TK-MED ONE IV (DC) Pantoprazole (PROTONIX) 40 MG 0600 PO (DC) Vancomycin HCl (Vancomycin 1,250 mg Inj (B2)) 0 .STK-MED ONE IV (DC) Cefazolin Sodium (KEFZOL OR ANCEF) 0 .STK-MED ON E .ROUTE (DC) Famotidine (PEPCID) 0 .STK-MED ONE IV (DC) Milrinone Lactate/Dextrose (MILRINONE 20MG/D5W 1 00ML) 0 .STK-MED ONE IV (DC) Protamine Sulfate (PROTAMINE SULFATE) 0 .STK-MED ONE IV (DC) Sodium Chloride (SODIUM CHLORIDE 0.9%) 250 ML .S TK-MED ONE IV (DC) Epinephrine HCl (EPINEPHrine 4 mg/D5W 250 mL) 25 0 ML .STK-MED ONE IV (DC ) Insulin Human Regular (HumuLIN R 100 UNITS/NS 10 0ML) 100 ML .STK-MED ONE IV (DC) Aminocaproic Acid (AMICAR) 0 .STK-MED ONE IV (D C) Heparin Sodium (HEPARIN SODIUM) 0 .STK-MED ONE . ROUTE (DC) Nitroglycerin/Dextrose (NITROGLYCERIN 50,000MCG/ D5W 250ML) 250 ML .STK-MED ONE IV (DC) Norepinephrine Bitartrate (NOREPINEPHRINE 8 MG/N S 250 ML) 250 ML .STK-MED ONE IV (DC) Ropivacaine (NAROPIN 0.5% 150 MG/30mL) 0 .STK-ME D ONE .ROUTE (DC) Calcium Chloride (CALCIUM CHLORIDE) 0 .STK-MED O NE IV (DC) Magnesium Sulfate (MAGNESIUM SULFATE) 0 .STK-MED ONE .ROUTE (DC) Lactated Ringer's (LACTATED RINGERS) 1,[address] EOP ONCALL IV (DC) Lidocaine HCl (LIDOCAINE HCL/PF) 2 ML PREOP ONCA LL LOCAL (DC) Lidocaine HCl (LIDOCAINE HCL/PF) 2 ML PREOP ONCA LL LOCAL (DC) Sodium Chloride (SODIUM CHLORIDE 0.9%) [address] EOP ONCALL IV (DC) Sodium Chloride (SODIUM CHLORIDE) 5 ML ASDIR PRN IV (DC) Sodium Chloride (SODIUM CHLORIDE) [address] N IV (DC) Sodium Chloride (SODIUM CHLORIDE 0.9%) 250 ML DIR PRN IV (DC) Clindamycin Phosphate/Dextrose (Clindamycin 900 mg/D5W 50 mL) 50 ML PREOP ONCALL IV (DC) Metoprolol Tartrate (LOPRESSOR) 6.25 MG ONCE ONE PO (DC) Vancomycin HCl (Vancomycin 1,250 mg Inj (B2)) 1, 250 MG PREOP ONCALL IV ( DC) Sodium Chloride (SODIUM CHLORIDE 0.9%) 250 ML Albumin Human (ALBUMINAR-25%) 100 ML .STK-MED ON E IV (DC) Heparin Sodium (HEPARIN SODIUM) 0 .STK-MED ONE . ROUTE (DC) Sodium Chloride (SODIUM CHLORIDE 0.9%) 100 ML .S TK-MED ONE IV (DC) Lidocaine HCl (XYLOCAINE IV) 0 .STK-MED ONE IV ( DC) Sodium Bicarbonate (SODIUM BICARBONATE) 0 .STK-M ED ONE IV (DC) Magnesium Sulfate (MAGNESIUM SULFATE) 0 .STK-MED ONE IV (DC) Phenylephrine HCl (KIM-SYNEPHRINE 10MG/ML AMP) 0 .STK-MED ONE .ROUTE (DC ) Acetaminophen (TYLENOL) 650 MG Q6H PRN PRN PO (D C) Gabapentin (NEURONTIN) 600 MG BEDTIME PO (DC) Melatonin (Melatonin) 5 MG BEDTIME PO (DC) Acetaminophen (TYLENOL EXTRA STRENGTH) 1,000 MG PREOP ONCALL PO (DC) Gabapentin (NEURONTIN) 200 MG PREOP ONCALL PO (D C) Atropine Sulfate (ATROPINE SULFATE 0.1MG/ML SYR) 0.5 MG ASDIR PRN IV (DC ) Sodium Chloride (SODIUM CHLORIDE 0.9%) 500 ML DIR PRN IV (DC) General appearance: respiratory support, sedated Head/Eyes: atraumatic, normal conjunctiva/sclera , normal eyelids/periorb. ENT: intubated Neck: full range of motion, non-tender Cardiovascular: normal heart sounds, regular rat e rhythm Respiratory: clear to auscultation Abdomen: non-tender, normal bowel sounds, soft, no distention Extremities: no edema Neuro/CHARGING MANIPULATOR: altered mental status Results Findings/Data: Laboratory Tests: 10/12 1753 1629 1444 1355 Blood Gas Puncture Site Art Line Art Line O2 Saturation (90 - 100 %) 96.9 96.9 ABG pH (7.35 - 7.45) 7.406 7.338 L ABG pCO2 (35.0 - 45 mmHg) 40.2 43.6 ABG pO2 (80 - 100.0 mmHg) 89.9 92.3 ABG PO2/FiO2 Ratio (mm/Hg) 230.75 ABG HCO3 (22.0 - 26.0 MMOL/L) 25.2 23.6 ABG Total CO2 26.4 25.0 ABG Base Excess (-4.0 - 4.0 MMOL/L) 0.6 -2.4 ABG Hematocrit (33.0 - 45.0 %) 25 L 31 L ABG Hemoglobin (11.0 - 15.0 G/DL) 8.5 L 10.5 L Elyssa Test Positive Sodium (134 - 147 mmol/L) 138 137 Potassium (3.4 - 5.0 mmol/L) 5.2 H 3.8 Chloride (100 - 108 mmol/L) 104 104 Ionized Calcium (1.12 - 1.32 MMOL/L) 1.25 1.37 H Lactic Acid (0.9 - 1.7 mmol/l) 2.0 H Temperature (F) 99.1 97.3 O2 Delivery Device 3LNC ET Tube Vent Mode CPAP/PS FiO2 (%) 40 Chemistry POC Creatinine (0.6 - 1.0 mg/dL) 0.7 0.7 POC Glucose (70 - 110 MG/DL) 121 H 139 H 181 H POC Glucose (mg/dL) (70 - 110 MG/DL) 143 H 198 H 10/12 10/12 10/12 1151 1102 1044 Blood Gas Puncture Site Art Line O2 Saturation (90 - 100 %) 98.0 ABG pH (7.35 - 7.45) 7.365 ABG pCO2 (35.0 - 45 mmHg) 38.9 ABG pO2 (80 - 100.0 mmHg) 103.8 H ABG PO2/FiO2 Ratio (mm/Hg) 207.60 ABG HCO3 (22.0 - 26.0 MMOL/L) 22.4 ABG Total CO2 23.7 ABG Base Excess (-4.0 - 4.0 MMOL/L) -3.1 ABG Hematocrit (33.0 - 45.0 %) 33 ABG Hemoglobin (11.0 - 15.0 G/DL) 11.1 Elyssa Test N/A Sodium (134 - 147 mmol/L) 139 Potassium (3.4 - 5.0 mmol/L) 4.3 Chloride (100 - 108 mmol/L) 104 Ionized Calcium (1.12 - 1.32 MMOL/L) 1.37 H Temperature (F) 97 O2 Delivery Device Adult Vent Vent Mode AC Vent Rate (/MIN) 20 FiO2 (%) 50 Tidal Volume (ml) 450 PEEP (cmH2O) 5 Chemistry Sodium (134 - 147 mEq/L) 139 Potassium (3.4 - 5.0 mEq/L) 4.2 Chloride (100 - 108 mEq/L) 105 Carbon Dioxide (21 - 33 mEq/l) 24 Anion Gap (0 - 20) 14 BUN (7 - 18 mg/dL) 11 Creatinine (0.6 - 1.3 mg/dL) 0.9 POC Creatinine (0.6 - 1.0 mg/dL) 0.6 Glomerular Filtr Rate (70 - 80) 66.7 L Glucose (70 - 110 mg/dL) 187 H POC Glucose (mg/dL) (70 - 110 MG/DL) 189 H Calcium (8.0 - 10.5 mg/dL) 9.7 Magnesium (1.80 - 2.40 mg/dL) 3.25 H Coagulation INR (0.8 - 1.2) 1.1 PTT (Cheryl) (25.0 - 39.5 Seconds) 38.2 PT Patient/Control Mix (9.3 - 12.9 SECONDS) 12. 5 Activated Coag Time (74 - 137 SEC) 131 Hematology WBC (4.5 - 11.0 x10 3/uL) 34.0 H RBC (3.54 - 5.02 x10 6/uL) 3.81 Hgb (11.0 - 15.0 g/dL) 10.9 L Hct (33.0 - 45.0 %) 32.5 L MCV (81.0 - 99.0 fL) 85.3 MCH (27.0 - 33.0 pg) 28.6 MCHC (33.0 - 37.0 g/dL) 33.5 RDW (11.5 - 14.5 %) 14.6 H Plt Count (150 - 400 x10 3/uL) 229 MPV (7.0 - 9.0 fL) 10.0 H Neut % (Auto) (56.0 - 77.0 %) 89.7 H Lymph % (Auto) (14.0 - 32.0 %) 6.6 L Nelson % (Auto) (4.8 - 9.0 %) 2.3 L Eos % (Auto) (0.3 - 3.7 %) 0.2 L Baso % (Auto) (0.0 - 2.0 %) 0.2 Neut # (Auto) (2.0 - 7.6 x10 3/uL) 30.45 H Lymph # (Auto) (1.0 - 3.8 x10 3/uL) 2.24 Nelson # (Auto) (0.1 - 0.8 x10 3/uL) 0.78 Eos # (Auto) (0.0 - 0.2 x10 3/uL) 0.06 Baso # (Auto) (0.0 - 0.2 x10 3/uL) 0.08 Abs Immat Gran (auto) (0.00 - 0.03 x10 3/uL) 0. 34 H Add Manual Diff NO Immature Gran % (0.0 - 2.0 %) 1.0 Nucleated RBC % (0 - 0 %) 0.0 Nucleated RBCs # (Man) (0.0 - 0.1 x10 3/uL) 0.0 0 10/12 10/12 10/12 10/12 10/12 1042 1004 1002 0932 0930 Blood Gas O2 Saturation (90 - 100 %) 100.0 100.0 100.0 ABG pH (7.35 - 7.45) 7.428 7.329 L 7.425 ABG pCO2 (35.0 - 45 mmHg) 39.7 60.0 *H 45.6 H ABG pO2 (80 - 100.0 mmHg) 474.7 *H 409.8 *H 465 .8 *H ABG HCO3 (22.0 - 26.0 MMOL/L) 26.3 H 31.5 *H 30 .0 *H ABG Total CO2 27.5 33.4 31.4 ABG Base Excess (-4.0 - 4.0 1.8 4.8 H 5.0 H MMOL/L) ABG Hematocrit (33.0 - 45.0 %) 27 L 23 L 23 L ABG Hemoglobin (11.0 - 15.0 G/DL) 9.0 L 7.7 L 8.0 L Sodium (134 - 147 mmol/L) 137 135 136 Potassium (3.4 - 5.0 mmol/L) 3.6 5.2 H 5.2 H Chloride (100 - 108 mmol/L) 101 99 L 100 Ionized Calcium (1.12 - 1.32 1.14 1.11 L 1.08 L MMOL/L) Lactic Acid (0.9 - 1.7 mmol/l) 3.5 H 1.4 1.7 Chemistry POC Creatinine (0.6 - 1.0 mg/dL) 0.6 0.6 0.6 POC Glucose (mg/dL) (70 - 110 232 H 191 H 182 H MG/DL) Coagulation Activated Coag Time (74 - 137 SEC) 630 H 967 H 0710/12 0844 0842 0707 0705 0535 Blood Gas O2 Saturation (90 - 100 %) 100.0 96.4 ABG pH (7.35 - 7.45) 7.460 H 7.445 ABG pCO2 (35.0 - 45 mmHg) 37.4 40.9 ABG pO2 (80 - 100.0 mmHg) 481.2 *H 81.6 ABG HCO3 (22.0 - 26.0 MMOL/L) 26.6 H 28.1 *H ABG Total CO2 27.8 29.3 ABG Base Excess (-4.0 - 4.0 MMOL/L) 2.7 3.6 ABG Hematocrit (33.0 - 45.0 %) 35 40 ABG Hemoglobin (11.0 - 15.0 G/DL) 11.9 13.6 Sodium (134 - 147 mmol/L) 136 136 Potassium (3.4 - 5.0 mmol/L) 3.9 4.0 Chloride (100 - 108 mmol/L) 100 98 L Ionized Calcium (1.12 - 1.32 MMOL/L) 1.22 1.31 Lactic Acid (0.9 - 1.7 mmol/l) 1.2 2.6 H Chemistry POC Creatinine (0.6 - 1.0 mg/dL) 0.6 0.6 POC Glucose (mg/dL) (70 - 110 MG/DL) 202 H 344 H Hemoglobin A1c (4.8 - 6.0 %A1C) 7.1 H Coagulation Activated Coag Time (74 - 137 SEC) 853 H 149 H 10/12 10/12 0535 0535 Chemistry Sodium (134 - 147 mEq/L) 137 Potassium (3.4 - 5.0 mEq/L) 3.9 Chloride (100 - 108 mEq/L) 102 Carbon Dioxide (21 - 33 mEq/l) 30 Anion Gap (0 - 20) 9 BUN (7 - 18 mg/dL) 10 Creatinine (0.6 - 1.3 mg/dL) 0.8 Glomerular Filtr Rate (70 - 80) 76.8 Glucose (70 - 110 mg/dL) 151 H Calcium (8.0 - 10.5 mg/dL) 10.0 Magnesium (1.80 - 2.40 mg/dL) 1.80 B-Natriuretic Peptide (0 - 100 PG/ML) 78.0 Coagulation INR (0.8 - 1.2) 1.0 PTT (Cheryl) (25.0 - 39.5 Seconds) 30.3 PT Patient/Control Mix (9.3 - 12.9 SECONDS) 11. 2 Hematology WBC (4.5 - 11.0 x10 3/uL) 8.3 RBC (3.54 - 5.02 x10 6/uL) 4.48 Hgb (11.0 - 15.0 g/dL) 12.7 Hct (33.0 - 45.0 %) 38.6 MCV (81.0 - 99.0 fL) 86.2 MCH (27.0 - 33.0 pg) 28.3 MCHC (33.0 - 37.0 g/dL) 32.9 L RDW (11.5 - 14.5 %) 14.6 H Plt Count (150 - 400 x10 3/uL) 255 MPV (7.0 - 9.0 fL) 10.2 H Neut % (Auto) (56.0 - 77.0 %) 70.8 Lymph % (Auto) (14.0 - 32.0 %) 20.9 Nelson % (Auto) (4.8 - 9.0 %) 4.9 Eos % (Auto) (0.3 - 3.7 %) 2.3 Baso % (Auto) (0.0 - 2.0 %) 0.5 Neut # (Auto) (2.0 - 7.6 x10 3/uL) 5.88 Lymph # (Auto) (1.0 - 3.8 x10 3/uL) 1.74 Nelson # (Auto) (0.1 - 0.8 x10 3/uL) 0.41 Eos # (Auto) (0.0 - 0.2 x10 3/uL) 0.19 Baso # (Auto) (0.0 - 0.2 x10 3/uL) 0.04 Abs Immat Gran (auto) (0.00 - 0.03 x10 3/uL) 0. 05 H Add Manual Diff NO Immature Gran % (0.0 - 2.0 %) 0.6 Nucleated RBC % (0 - 0 %) 0.0 Nucleated RBCs # (Man) (0.0 - 0.1 x10 3/uL) 0.0 0 Laboratory Tests 10/12/22 1102: [Embedded Image Not Available] 10/12/22 0535: [Embedded Image Not Available] Radiology data: Recent Impressions: ULTRASOUND - DUP EXTRACRANIAL ANGI 10/11 2358 Report Impression - Status: SIGNED Entered: 10/12/2022 0138 IMPRESSION: Plaque along the bilateral common carotid arteri es and internal carotid arteries. No significant stenosis of the proximal internal carotid arteries by NASCET criteria. REFERENCES: The degree of internal carotid artery stenosis i s based on criteria defined by the [facility] cri teria. Normal is no stenosis. Mild is less than 50% stenosis. Mod erate is 50-69% stenosis. Severe is greater than 69% stenosis to near occlusion. Near occlusion is a markedly narrowed lumen. Tot al occlusion is no detectable patent lumen. Impression By: [email or web address] - Raymond Longo M.D. RADIOLOGY - XR CHEST 1 V 10/12 1350 Report Impression - Status: SIGNED Entered: 10/12/2022 1428 IMPRESSION: 1. Status post median sternotomy with support tu bes and lines as described. 2. Small right apical pneumothorax is difficult to exclude due to portable technique and superimposed shadows. Follow-up radiographs can be obtained further evaluate. 3. Mild left basilar atelectasis. Impression By: [email or web address] - Ricardo Hernandez M.D. 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 Quality: Gen Med Crit Care Current Medications Current medication review: Current Medications Sig/Paulette Start time Last Medication Dose Route Stop Time Status Admin Ipratropium [employer] 500 MCG RTQ2H PRN PRN 10/15 1022 AC INH 11/14 1021 Cyanocobalamin 500 MCG DAILY 10/15 0900 AC PO 11/14 0859 Ferrous Sulfate 325 MG DAILY 10/15 0900 AC PO 11/14 0859 Bisacodyl 10 MG ONCE PRN 10/14 1200 AC RECTAL 11/13 1159 Magnesium Hydroxide 30 ML ONCE PRN 10/14 1200 A C PO Atorvastatin Calcium 40 MG 2100 10/13 2100 AC PO 11/12 2058 Polyethylene Glycol 17 GM DAILY 10/13 0900 AC PO 11/12 0859 Vancomycin HCl 1,000 MG Q12H 10/12 2230 CAN Sodium Chloride 250 ML IV 10/13 1129 Vancomycin HCl 1,000 MG Q12H 10/12 2230 AC Sodium Chloride 250 ML IV 10/13 1129 Atorvastatin Calcium 20 MG MoWeFr 10/12 2100 DC PO 11/11 205 Docusate Sodium 100 MG BID 10/12 2100 AC 10/12 PO 11/11 2058 195 Gabapentin 200 MG BID 10/12 2100 AC 10/12 PO 10/17 0901 195 Metoprolol Tartrate 12.5 MG Q12HR 10/12 2099 AC PO 11/11 2058 Sennosides 17.2 MG BEDTIME 10/12 2099 AC 10/12 PO 11/11 2058 195 Oxycodone HCl 5 MG Q4H PRN PRN 10/12 1745 AC PO 10/17 1744 Oxycodone HCl 10 MG Q4H PRN PRN 10/12 1745 AC PO 10/17 1744 Aspirin 81 MG DAILY 10/12 1622 AC 10/12 PO 11/11 1621 1742 Fentanyl Citrate 25 MCG ONCE ONE 10/12 1545 DC 10/12 IV 10/12 1546 1557 Amiodarone HCl 200 MG TID 10/12 1500 AC 10/12 PO 11/11 1459 1742 Mupirocin 1 APPLIC BID 10/12 1352 AC 10/12 NASAL 10/16 2101 1957 Albumin Human 250 ML Q1H 10/12 1350 DC 10/12 IV 10/12 1549 1400 Cefazolin Sodium 3 GM ONCE ONE 10/12 1315 AC Sodium Chloride 250 ML IV 10/13 0914 1729 Ipratropium [employer] 500 MCG RTQ4H 10/12 1200 AC 10/12 INH 10/15 1022 2005 Parenteral 1,000 ML .STK-MED ONE 10/12 1122 DC Electrolytes IV Potassium Chloride 200 ML .STK-MED ONE 10/12 10 45 DC IV Vancomycin HCl 0 .STK-MED ONE 10/12 1035 DC .ROUTE Acetaminophen 650 MG Q4H PRN PRN 10/12 1030 AC 10/12 PO 11/11 1029 1955 Acetaminophen 650 MG Q4H PRN PRN 10/12 1030 AC RECTAL 11/11 1029 Albumin Human 25 GM ASDIR PRN 10/12 1030 AC IV 10/13 1022 Calcium Chloride 1 GM ASDIR PRN 10/12 1030 AC IV 11/11 1029 Dextrose/Water 125 ML ASDIR PRN 10/12 1030 CKD IV 11/11 1029 Dextrose/Water 250 ML ASDIR PRN 10/12 1030 CKD IV 11/11 1029 Epinephrine 4 MG ASDIR 10/12 1030 AC Dextrose/Water 246 ML IV 11/11 1029 Glucagon 1 MG ASDIR PRN 10/12 1030 AC IM 11/11 1029 Insulin Human Regular 100 UNIT ASDIR 10/12 1030 CKD Sodium Chloride 99 ML IV 11/11 1029 Magnesium Sulfate 100 ML ASDIR PRN 10/12 1030 A C IV 11/11 1029 Magnesium Sulfate 50 ML ASDIR PRN 10/12 1030 AC IV 11/11 1029 Magnesium Sulfate/ 100 ML ASDIR PRN 10/12 1030 AC Dextrose IV 11/11 1029 Morphine Sulfate 4 MG Q2H PRN PRN 10/12 1030 DC IV 10/17 1029 Nitroglycerin/ 250 ML ASDIR 10/12 1030 AC Dextrose IV 11/11 1029 Norepinephrine 250 ML TITRATE 10/12 1030 AC Bitartrate IV 11/11 1029 Ondansetron HCl 4 MG Q6H PRN PRN 10/12 1030 AC IV 11/11 1029 Oxycodone HCl 5 MG Q4H PRN PRN 10/12 1030 DC PO 10/17 1029 Oxycodone HCl 10 MG Q4H PRN PRN 10/12 1030 DC 10/12 PO 10/17 1029 1745 Potassium Chloride 100 ML ASDIR PRN 10/12 1030 AC IV 11/11 1029 Sodium Bicarbonate 50 MEQ ASDIR PRN 10/12 1030 AC IV 11/11 1029 Sodium Chloride 1,000 ML .Q20H 10/12 1030 AC IV 11/11 1029 Sodium Chloride 250 ML Q24H 10/12 1030 AC IV 11/11 1029 Amiodarone HCl 0 .STK-MED ONE 10/12 1018 DC IV Metoclopramide HCl 0 .STK-MED ONE 10/12 0930 DC .ROUTE Ondansetron HCl 0 .STK-MED ONE 10/12 929 DC .ROUTE Amlodipine Besylate 5 MG DAILY 10/12 899 DC PO 11/11 08 Aspirin 81 MG DAILY 10/12 899 DC PO 11/11 08 Hydrochlorothiazide 12.5 MG DAILY 10/12 899 DC PO 11/11 0859 Lisinopril 20 MG DAILY 10/12 899 DC Hydrochlorothiazide 12.5 MG PO 11/11 08 Lisinopril 20 MG DAILY 10/12 899 DC PO 11/11 0859 Metoprolol Succinate 50 MG DAILY 10/12 899 CAN PO 11/11 0859 Mesalamine 800 MG AC BK DIN 10/12 729 DC PO 11/11 728 Fentanyl Citrate 0 .STK-MED ONE 10/12 633 DC IV Propofol 20 ML .STK-MED ONE 10/12 633 DC IV Dexamethasone Sodium 0 .STK-MED ONE 10/12 618 DC Phosphate .ROUTE Esmolol HCl 0 .STK-MED ONE 10/12 618 DC IV Lidocaine HCl 0 .STK-MED ONE 10/12 618 DC .ROUTE Ondansetron HCl 0 .STK-MED ONE 10/12 618 DC .ROUTE Rocuronium [employer] 0 .STK-MED ONE 10/12 618 DC IV Sodium Chloride 100 ML .STK-MED ONE 10/12 618 DC IV Pantoprazole 40 MG 0600 10/12 599 DC 10/12 PO 11/11 0559 0512 Vancomycin HCl 0 .STK-MED ONE 10/12 536 DC IV Cefazolin Sodium 0 .STK-MED ONE 10/12 534 DC .ROUTE Famotidine 0 .STK-MED ONE 10/12 534 DC IV Milrinone Lactate/ 0 .STK-MED ONE 10/12 534 DC Dextrose IV Protamine Sulfate 0 .STK-MED ONE 10/12 534 DC IV Sodium Chloride 250 ML .STK-MED ONE 10/12 534 DC IV Epinephrine HCl 250 ML .STK-MED ONE 10/12 533 DC IV Insulin Human Regular 100 ML .STK-MED ONE 10/12 533 DC IV Aminocaproic Acid 0 .STK-MED ONE 10/12 532 DC IV Heparin Sodium 0 .STK-MED ONE 10/12 532 DC .ROUTE Nitroglycerin/ 250 ML .STK-MED ONE 10/12 0533 D C Dextrose IV Norepinephrine 250 ML .STK-MED ONE 10/12 0533 D C Bitartrate IV Ropivacaine 0 .STK-MED ONE 10/12 05 DC .ROUTE Calcium Chloride 0 .STK-MED ONE 10/12 0532 DC IV Magnesium Sulfate 0 .STK-MED ONE 10/12 0532 DC .ROUTE Lactated Ringer's 1,000 ML PREOP ONCALL 10/12 0 530 DC IV 11/11 2359 Lidocaine HCl 2 ML PREOP ONCALL 10/12 0530 DC LOCAL 11/11 2359 Lidocaine HCl 2 ML PREOP ONCALL 10/12 0530 DC LOCAL 11/11 2359 Sodium Chloride 500 ML PREOP ONCALL 10/12 0530 DC IV 11/11 2359 Sodium Chloride 5 ML ASDIR PRN 10/12 0530 DC IV 11/11 0529 Sodium Chloride 10 ML ASDIR PRN 10/12 0530 DC IV 11/11 0529 Sodium Chloride 250 ML ASDIR PRN 10/12 0530 DC IV 11/11 0529 Clindamycin 50 ML PREOP ONCALL 10/12 0500 DC Phosphate/Dextrose IV 10/12 2359 Metoprolol Tartrate 6.25 MG ONCE ONE 10/12 0500 DC PO 10/12 0501 Vancomycin HCl 1,250 MG PREOP ONCALL 10/12 0500 DC Sodium Chloride 250 ML IV 10/12 2359 Albumin Human 100 ML .STK-MED ONE 10/12 0455 DC IV Heparin Sodium 0 .STK-MED ONE 10/12 0455 DC .ROUTE Sodium Chloride 100 ML .STK-MED ONE 10/12 0455 DC IV Lidocaine HCl 0 .STK-MED ONE 10/12 0454 DC IV Sodium Bicarbonate 0 .STK-MED ONE 10/12 0454 DC IV Magnesium Sulfate 0 .STK-MED ONE 10/12 0453 DC IV Phenylephrine HCl 0 .STK-MED ONE 10/12 045 DC .ROUTE Acetaminophen 650 MG Q6H PRN PRN 10/11 2114 DC 10/11 PO 11/10 Gabapentin 600 MG BEDTIME 10/11 2100 DC 10/11 PO 11/10 Melatonin 5 MG BEDTIME 10/11 2100 DC 10/11 PO 11/10 Acetaminophen 1,000 MG PREOP ONCALL 10/11 1700 DC 10/12 PO 11/10 1659 0604 Gabapentin 200 MG PREOP ONCALL 10/11 1700 DC PO 11/10 2359 0604 Atropine Sulfate 0.5 MG ASDIR PRN 10/11 1400 DC IV 10/12 1357 Sodium Chloride 500 ML ASDIR PRN 10/11 1400 DC IV 10/12 1357 Home Medications: MELATONIN 5 MG PO BEDTIME MESALAMINE ER (APRISO) 1.5 GM PO DAILY LISINOPRIL/HCTZ (ZESTORETIC 20/12.5 MG) 1 TAB PO DAILY amLODIPine (NORVASC) 5 MG PO DAILY OMEPRAZOLE ER (PriLOSEC) 40 MG PO DAILY ASPIRIN 81 MG PO DAILY METOPROLOL SUCC XL (TOPROL XL) 50 MG PO DAILY ATORVASTATIN (LIPITOR) 20 MG PO 3X WEEKLY ASCORBIC ACID (VITAMIN C) 1,000 MG PO DAILY CHOLECALCIFEROL (VITAMIN D3) (VITAMIN D3) 1,000 UNITS PO DAILY LACTOBACILLUS ACIDOPHILUS (PROBIOTIC ACIDOPHILUS ) 1 CAP PO DAILY BIOTIN 10 MG PO DAILY GABAPENTIN (NEURONTIN) 600 MG PO BEDTIME I attest that the foregoing medication list in [facility] medical record is true, accurate, and complete to the best of my knowled ge. Electronically Signed by Nina Melgar MD on 3 at 2113 [facility] #:[id number] END OF REPORT 2022-10-12 [id number] [facility] 03:24:00-00:[address] [place] [address] PATIENT NAME: SWEETIE AMAYA ADMIT DATE: 10/11 ACCOUNT NO: [id number] ROOM NO: [facility] AGE: 77 REPORT TYPE: eELECTROCARDIOGRAM REPORT SEX: F ADMITTING PHYSICIAN:Dory Hoff MD ATTENDING PHYSICIAN:Dory Hoff MD Order: [id number] Test Reason : EKG Test Date/Time Stamp: MonOct 12 2022 03:24:32 Blood Pressure : / mmHG Vent. Rate : 040 BPM Atrial Rate : 040 BPM P-R Int : 198 ms QRS Dur : 088 ms QT Int : 478 ms P-R-T Axes : 057 031 027 degree s QTc Int : 389 ms Marked sinus bradycardia Septal infarct , age undetermined Abnormal ECG When compared with ECG of 10-OCT-2022 13:49, Significant changes have occurred Confirmed by ZOE RUBIO MD ([id number]) on 10/13/19 8:35:13 AM Referred By: Dory Hoff Confirmed by:ZOE FERNÁNDEZ MD Electronically Signed by Zoe Rubio MD on at 0835 PATIENT NAME: SWEETIE AMAYA [id number] [facility] 14:31:00-00:00 [facility] ([facility]) Cardiology Consultation REPORT#:[id number] REPORT STATUS: Signed DATE:10/11/22 TIME: 143 PATIENT: SWEETIE AMAYA UNIT #: [id number] ROOM/BED: [place] [id number] : 47 AGE: 77 SEX: F ATTEND: Bella Hoff MD ADM AUTHOR: Amarilis Valentin RN CLINICAL APPEALS * ALL edits or amendments must be made on the Onevest/computer document * Amarilis Valentin 10/11/22 1431: History of Present Illness HPI Requesting Clinician: Dr. Vidales Reason for consult: Mitral regurgitation Chief complaint: Shortness of breath PCP: PCP: Yenny Boone MD NYHA Classification: II HPI: 77 YO female with PMHx of hy pertension, hyperlipidemia, carotid artery disease s /p R CEA who has been having progressively worse madeleine shortness of breath. She was found to have severe mitral valve regurgitat ion. She underwent coronary angiogram for preop workup. LHC showed patent coronary arteries. CT surgery has been consulted for mitral valve surgery. Hx Obtained From Patient History - Adult longitudinal Past medical history: Reports: Hypertension, Dyslipidemia. Denies: Ailyn betes mellitus, Anticoagulant therapy, Atrial flutter, Ischemic stroke, Prior AL, Venous thromboembolism. Past surgical history: Reports: Carotid endarterectomy (RIGHT ), Knee p rocedure. Alcohol use: Denies EtOH use Drug use: Denies recreational drugs Smoking status for patients 13 years old or olde r: Never Smoker Home medications: Home Medications: MELATONIN 5 MG PO BEDTIME MESALAMINE ER (APRISO) 1.5 GM PO DAILY LISINOPRIL/HCTZ (ZESTORETIC 20/12.5 MG) 1 TAB PO DAILY amLODIPine (NORVASC) 5 MG PO DAILY OMEPRAZOLE ER (PriLOSEC) 40 MG PO DAILY ASPIRIN 81 MG PO DAILY METOPROLOL SUCC XL (TOPROL XL) 50 MG PO DAILY ATORVASTATIN (LIPITOR) 20 MG PO 3X WEEKLY ASCORBIC ACID (VITAMIN C) 1,000 MG PO DAILY CHOLECALCIFEROL (VITAMIN D3) (VITAMIN D3) 1,000 UNITS PO DAILY LACTOBACILLUS ACIDOPHILUS (PROBIOTIC ACIDOPHILUS ) 1 CAP PO DAILY BIOTIN 10 MG PO DAILY GABAPENTIN (NEURONTIN) 600 MG PO BEDTIME Allergies: Coded Allergies: Penicillins (Intermediate, BREATHING ISSUES- OK W KEFLEX 10/05/22) SPECIFIC Allergy: PENICILLINS Ambulatory status: Independent Review of Systems Constitutional: fatigue, generalized weakness. Respiratory: Reports: SOB. Cardiovascular: Reports: dyspnea on exertion. Denies: chest pain , unstable angina. GI: Denies: abdominal pain, nausea, vomiting. Musculoskeletal: Denies: extremity pain. Neuro: weakness. Denies: change in LOC, confusion, dizz iness. Psych: Denies: agitation, anxiety. Objective General VS/I O: Vital Signs: Date Time Temp Pulse Resp B/P B/P Pulse O2 O2 Flow FiO2 Mean Ox Delivery Rate 10/11 1205 48 17 181/74 95 Room air 24 hour I O ending at 0700: 10/11 0700 07 1900 Intake Total Output Total Balance Patient 75.9 kg Weight Weight Standing scale Measurement Method PATIENT WEIGHT: Weight (lb): 167 Weight (oz): 5.29 Weight (kg): 75.900 Medications: Active Meds + DC'd Last 24 Hrs Atorvastatin Calcium (LIPITOR) 20 MG MoWeFr PO Amlodipine Besylate (NORVASC) 5 MG DAILY PO Aspirin (ASPIRIN) 81 MG DAILY PO Hydrochlorothiazide (HYDRODIURIL) 12.5 MG DAILY PO Lisinopril (ZESTRIL) 20 MG DAILY PO (DC) Hydrochlorothiazide (HYDRODIURIL) 12.5 MG Lisinopril (ZESTRIL) 20 MG DAILY PO Metoprolol Succinate (TOPROL XL) 50 MG DAILY PO Mesalamine (DELZICOL 400MG CAP DR.) 800 MG AC BK DIN PO Pantoprazole (PROTONIX) 40 MG 0600 PO Gabapentin (NEURONTIN) 600 MG BEDTIME PO Melatonin (Melatonin) 5 MG BEDTIME PO Mesalamine (DELZICOL 400MG CAP DR.) 800 MG AC BK DIN PO (DC) Atropine Sulfate (ATROPINE SULFATE 0.1MG/ML SYR) 0.5 MG ASDIR PRN IV Sodium Chloride (SODIUM CHLORIDE 0.9%) 1,000 ML .[id number] IV Sodium Chloride (SODIUM CHLORIDE 0.9%) 500 ML DIR PRN IV Nitroglycerin/Dextrose (NITROGLYCERIN 50,000MCG/ D5W 250ML) 250 ML .STK-MED ONE IV (DC) Verapamil HCl (ISOPTIN) 0 .STK-MED ONE IV (DC) Fentanyl Citrate (SUBLIMAZE) 0 .STK-MED ONE .ROU TE (DC) Midazolam HCl (VERSED) 0 .STK-MED ONE .ROUTE (DC ) Heparin Sodium/Sodium Chloride (HEPARIN 2,000 UN ITS/NS 1,000mL) 1,000 ML .STK-MED ONE IV (DC) Heparin Sodium/Sodium Chloride (HEPARIN 1,000 UN ITS/NS 500ML) 500 ML .STK- MED ONE IV (DC) Iopamidol (ISOVUE-370 100ML) 0 .STK-MED ONE IV ( DC) Lidocaine HCl (LIDOCAINE HCL/PF) 0 .STK-MED ONE .ROUTE (DC) Potassium Chloride (POTASSIUM CHLORIDE 20MEQ TAB .ER) 0 .STK-MED ONE PO ( DC) Potassium Chloride (POTASSIUM CHLORIDE 20MEQ TAB .ER) 20 MEQ ONCE ONE PO (DC) Physical Exam General appearance: alert, awake Neck: non-tender, no JVD Cardiovascular: CV assessment: bradycardia Murmur assessment: heart murmur Respiratory: clear to auscultation, no distress Abdomen: soft, non-tender, normal bowel sounds, no distention Genitourinary: no flank pain, no urinary cathete r Upper extremity: Right radial site: intact, no bleeding, no drai nage, no ecchymosis, no hematoma Lower extremity: LE assessment: normal capillary refill, no brady a Musculoskeletal: normal inspection Neuro/CHARGING MANIPULATOR: alert, oriented X 3, normal speech Skin: dry, intact, normal color Psychiatry: normal affect, normal judgment/insig ht, normal mood Diagnosis, Assessment Plan Plan discussed with: patient, spouse/partner, co sashaabemely TINEO Free Text DxA P Notes Free Text DxA P Notes: 77 YO female with PMHx of hy pertension, hyperlipidemia, carotid artery disease s /p R CEA who has been having progressively worse madeleine shortness of breath. She was found to have severe mitral valve regurgitat ion. She underwent coronary angiogram for preop workup. C showed patent coronary arteries. CT surgery has been consulted for mitral valve surgery. 1. Severe mitral valve regurgitation * CTS eval for MV surgery 2. Hypertension * BP high * resume home meds - lisinopril, Amlodipine * hold metoprolol due to bradycardia 3. Hyperlipidemia * resume statin Appreciate the referral. Vivi Bowden 10/13/22 1700: Attestations Physician Attestation Agree w/findings plan: I have seen and examined the pt, I Agree with e findings and plan as documented by Amarilis Valentin. at 1842 Electronically Signed by Vivi Bowden MD on at 1701 RPT #:[id number] END OF REPORT 2022-10-11 [facility] 14:18:00-00:00 [facility] Cardiothoracic Surgery Consult REPORT#:[id number] REPORT STATUS: Signed DATE:10/11/22 TIME: 1417 PATIENT: SWEETIE AMAYA UNIT #: [id number] ROOM/BED: [place] [address] : 47 AGE: 77 SEX: F ATTEND: Bella Hoff MD ADM AUTHOR: Harriet Griffin Physic * ALL edits or amendments must be made on the Onevest/computer document * Harriet Griffin 10/11/22 1418: History of Present Illness HPI Chief complaint: Shortness of breath PCP: PCP: Yenny Boone MD Requesting Clinician Dr Vidales HPI: This is a 77-year with a past medical hi story of hypertension, hyperlipidemia, carotid stenosis status post right carotid endarterectomy 2020, who presented as an outpatient for evaluation of increased shortn ess of breath over the past several months. She reports most of her symptoms are wit h exertion. She denies any symptoms at rest. She denies any chest pains. She also reports lower extremity weakness with h er shortness of breath. The patient underwent echocardiogram in the outpatient setting. By report this showed EF 60 to 65%, dilated LA, moderate to sev ere MR. 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 Trace T R, ascending aorta measurement 3.7 cm. Patient underwent left heart catheterization [facility] no significant carotid artery stenosis. Review of the patient's records show patient als o had a carotid Doppler completed on May 2022 showing less than 50% st enosis in the left internal carotid artery CV surgery consulted for evaluation of severe mi tral valve regurgitation for possible mitral valve repair versus replacement History Past Medical History: Reports: Hypertension, Dyslipidemia. Additional Surgical History: Right CEA 2020 Alcohol Use Denies EtOH use Drug Use Denies recreational drugs Smoking status for patients 13 years old or olde r: Unknown,if ever smoked Allergies: Coded Allergies: Penicillins (Intermediate, BREATHING ISSUES- [place] W KEFLEX 10/05/22) SPECIFIC Allergy: PENICILLINS Review of Systems Review of Systems Constitutional: Denies: fatigue, fever, generalized weakness. Skin: Denies: rash, swelling. Allergy/Immun: Denies: itching, rhinorrhea. Eyes: Denies: itching, diplopia. Respiratory: Reports: BLANCO (dyspnea on exertion). Denies: pleu ritic pain. Cardiovascular: Reports: BLANCO (dyspnea on exertion). Denies: ches t pain. GI: Denies: constipation, diarrhea. : Denies: dysuria, hematuria. Musculoskeletal: Denies: joint pain, joint swelling. Heme: Denies: bleeding, bruising. Neuro: Denies: confusion, dizziness. Psych: Denies: confusion. All systems rev neg: except as marked Objective Physical Exam VS/I O: Last Documented: Result Date Time Pulse Ox 95 10/11 1205 B/P 181/74 10/11 1205 O2 Delivery Room air 10/11 1205 Pulse 48 10/11 1205 Resp 17 10/11 1205 24 hour I O ending at 0700: 10/11 0700 10/10 1900 Intake Total Output Total Balance Patient 75.9 kg Weight Weight Standing scale Measurement Method PATIENT WEIGHT: Weight (lb): 167 Weight (oz): 5.29 Weight (kg): 75.900 General appearance: alert, awake, oriented HEENT: mucosal membranes moist Neck: full range of motion, non-tender, right CE A scar Cardiovascular: irregular rhythm Respiratory: aerating well, clear to auscultatio n Abdomen: soft, non-tender Extremities: dry, moves all Musculoskeletal: full range of motion Neuro/CHARGING MANIPULATOR: alert, oriented X 3 Skin: dry Diagnosis, Assessment Plan Free Text A P: This is a 77-year with a past medical history of new diagnosis of atrial fibrilation, hypertension, hyperlipidemia, carot id stenosis status post right carotid endarterectomy 2020, who presented as an outpatient for evaluation of increased shortness of breath over the past dre ral months. She reports most of her symptoms are wit h exertion. She denies any symptoms at rest. She denies any chest pains. She reports only recently being diagnose d with Atrial fibrillaiton. She denies takign any furhter anticoagulation. She also reports lower extremity weakness with h er shortness of breath. The patient underwent echocardiogram in the outpatient setting. By report this showed EF 60 to 65%, dilated LA, moderate to sev ere MR. 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 Trace T R, ascending aorta measurement 3.7 cm. Patient underwent left heart catheterization [facility] no significant carotid artery stenosis. Review of the patient's records show patient als o had a carotid Doppler completed on May 2022 showing less than 50% st enosis in the left internal carotid artery CV surgery consulted for evaluation of severe mi tral valve regurgitation for possible mitral valve repair versus replacement Assessment/plan 1. Dyspnea on exertion Likely secondary to severe MR 2.Severe MR 3. Hypertension 4. Dyslipidemia 5. Atrial fibrilation. Patient reports a rather active lifestyle workin g in her yard frequently. However since the past several months her increa sed dyspnea on exertion has caused her decrease her activity. Patient has no lower extremity edema. Patient was seen and examined at [facility]. Mitral valve replacement versus repair was discussed with the patient. Patient is not on any blood thinners Coronary angiogramtoday showed no obstructive co ronary artery disease We will begin work-up for mi tral valve repair repair versus replacement, Navdeep Hall 10/18/22 1344: Attestations Physician Attestation Agree w/findings plan: I have seen and examined Ms. Amaya. I agree with the findings and plan as documented by MILAD Bobby. 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 Patient will benefit from mitral valve repair possible replacement and pul monary vein isolation. Had a long discussion with the patient, explained the procedure, risk involved, benefit, alternative, STS risk score, and compli cations. at 1920 at 2838 RPT #:[id number] END OF REPORT 2022-10-10 [id number] [facility] 13:49:00-00:[address] [place] [id number] PATIENT NAME: SWEETIE AMAYA ADMIT DATE: ACCOUNT NO: [id number] ROOM NO: AGE: 77 REPORT TYPE: eELECTROCARDIOGRAM REPORT SEX: F ADMITTING PHYSICIAN: ATTENDING PHYSICIAN:Paras Vidales MD Order: [id number] Test Reason : PREOP Test Date/Time Stamp: MonOct 10 2022 13:49:09 Blood Pressure : / mmHG Vent. Rate : 045 BPM Atrial Rate : 045 BPM P-R Int : 000 ms QRS Dur : 094 ms QT Int : 456 ms P-R-T Axes : 000 050 040 degree s QTc Int : 394 ms Sinus bradycardia Abnormal ECG When compared with ECG of 27-OCT-2020 10:50, Significant changes have occurred Reconfirmed by ZOE RUBIO MD ([id number]) on 2022 3:29:34 PM Referred By: Paras Vidales Confirmed by:ZOE FERNÁNDEZ MD Electronically Signed by Zoe Rubio MD on at 9818 PATIENT NAME: SWEETIE AMAYA [id number] [facility] 13:49:00-00:[address] [place] [address] PATIENT NAME: SWEETIE AMAYA ADMIT DATE: ACCOUNT NO: [id number] ROOM NO: AGE: 77 REPORT TYPE: eELECTROCARDIOGRAM REPORT SEX: F ADMITTING PHYSICIAN: ATTENDING PHYSICIAN:Paras Vidales MD Order: [id number] Test Reason : PREOP Test Date/Time Stamp: MonOct 10 2022 13:49:09 Blood Pressure : / mmHG Vent. Rate : 045 BPM Atrial Rate : 045 BPM P-R Int : 000 ms QRS Dur : 094 ms QT Int : 456 ms P-R-T Axes : 000 050 040 degree s QTc Int : 394 ms Junctional rhythm Abnormal ECG When compared with ECG of 27-OCT-2020 10:50, Significant changes have occurred Confirmed by ZOE RUBIO MD ([id number]) on 10/11/19 3:28:10 PM Referred By: Paras Vidales Confirmed by:ZOE FERNÁNDEZ MD Electronically Signed by Zoe Rubio MD on at 1528 PATIENT NAME: SWEETIE AMAYA [id number] [facility] 10:07:00-00:[address] [place] [address] PATIENT NAME: SWEETIE AMAYA ADMIT DATE: 11/18 ACCOUNT NO: [id number] ROOM NO: AGE: 75 REPORT TYPE: OPERATIVE REPORT SEX: F ADMITTING PHYSICIAN: ATTENDING PHYSICIAN:Juan Ashton MD OPERATION DATE: 11/18/2020 FINAL DIAGNOSIS: Right knee synovitis, M65.851. FINAL PROCEDURE: Right knee extensive synovectom y, [address]. PREOPERATIVE DIAGNOSIS: Right knee synovitis, M6 5.851. POSTOPERATIVE DIAGNOSIS: Right knee synovitis, M 65.851. PROCEDURE: Right knee extensive synovectomy, 298 76. FINAL IMPLANTS AND TECHNIQUE: Nonapplicable. SURGEON: Dr. Juan Ashton. COUNTY HISTORIAN: None. ANESTHESIA: General. BRIEF CLINICAL HISTORY: This [...] MEDIAL COMPARTMENT: ARTICULAR CARTILAGE: Absent. PATIENT NAME: SWEETIE AMAYA [id number] MENISCUS: Absent. OTHER: None. FINDINGS IN THE [...] tolerated. Dictated By: Juan Ashton MD WT: OP:Y.CARRIE/PÉREZ/GIACOMO Conf#: [id number]#: [id number] Authenticated by Juan Ashton MD On 2020 05:34:15 PM Electronically Signed by Juan Ashton MD o n 11/18/20 at 1734 PATIENT NAME: SWEETIE AMAYA [id number] [facility] 06:50:00-00:00 [facility] [facility]) Brief Op Note REPORT#:[id number] REPORT STATUS: Signed DATE:11/18/20 TIME: 649 PATIENT: SWEETIE AMAYA UNIT #: [id number] ROOM/BED: : 47 AGE: 75 SEX: F ATTEND: Manuel Ashton MD ADM AUTHOR: Juan Ashton MD * ALL edits or amendments must be made on the [employer]/computer document * Op/Inv Proc Note - Brief Pre-procedure diagnosis: right knee synovitis, s/p TKA Post-procedure diagnosis: same as pre procedure dx Procedures performed: right knee arthroscopy with debridement, synovec bud Primary Surgeon: MD Daisha Electric Engine Mechanic(s): none Findings: none Complications: none Estimated blood loss in ml's: none Specimens removed/altered: none at 1725 RPT #:[id number] END OF REPORT 2020-11-04 [id number] [facility] 14:07:00-00:[address] [place] [address] PATIENT NAME: SWEETIE AMAYA ADMIT DATE: ACCOUNT NO: [id number] ROOM NO: AGE: 75 REPORT TYPE: HISTORY [...] d 75-year-old female, in no PATIENT NAME: SWEETIE AMAYA [id number] acute distress. HEENT: Normal. PULMONARY: Spontaneous breathing. [...] for Juan Ashton MD WT: HP:MAGEN/ARGENTINA/GIACOMO Conf#: [id number]/DID#: [id number] Authenticated by Petty Brizuela PA-C On 11/09 06:17:42 AM Authenticated by Juan Ashton MD On 2020 07:55:07 AM Electronically Signed by Juan Ashton MD o n 11/09/20 at 0755 at 0755 PATIENT NAME: SWEETIE AMAYA [id number] [facility] 10:50:00-00:[address] [place] [address] PATIENT NAME: SWEETIE AMAYA ADMIT DATE: ACCOUNT NO: [id number] ROOM NO: AGE: 75 REPORT TYPE: ELECTROCARDIOGRAM SEX: F ADMITTING PHYSICIAN: ATTENDING PHYSICIAN:Juan Ashton MD Order: [id number] Test Reason : PREOP CLEARANCE, HTN Test [...] ECG No previous ECGs available Confirmed by DIONISIO MELGAR MD ([id number]) on 10/29/2020 1 :04:58 PM Referred By: Juan Ashton Confirmed by:DIONISIO MELGAR MD Electronically Signed by Dionisio Melgar MD on 08/14 at 1305 PATIENT NAME: SWEETIE AMAYA [id number] [id number] [facility] 11:34:00-00:[address] [place] [address] PATIENT NAME: SWEETIE AMAYA ADMIT DATE: 05/28 ACCOUNT NO: [id number] ROOM NO: Y.502 AGE: 72 REPORT TYPE: [...] home. Dictated By: Theo Caban MD WT: DS:MAEGN/LICO/NTS Conf#: [id number]/DID#: [id number] Authenticated by Theo Caban MD On 10:48:35 AM at 1049 PATIENT NAME: SWEETIE AMAYA [id number] [id number] [facility] 13:29:00-00:00 [facility] ([facility]) Clinical Note REPORT#:[id number] REPORT STATUS: Signed DATE:05/29/18 TIME: 1329 PATIENT: SWEETIE AMAYA UNIT #: [id number] ROOM/BED: [address] : 47 AGE: 72 SEX: F ATTEND: Elliot Caban MD ADM AUTHOR: Maria Esther Nathan NP * ALL edits or amendments must be made on the Onevest/computer document * Clinical Note Note: S: pain [...] 76 97 05/29 0728 Room air 05/29 0333 36.4 55 16 130/61 88 98 Nasal [...] Maria Esther Nathan NP on at 1337 RPT #:[id number] END OF REPORT 2018-05-29 [facility] 13:29:00-00:00 [facility] ([facility]) Clinical Note REPORT#:[id number] REPORT STATUS: Signed DATE:05/29/18 TIME: 1329 PATIENT: SWEETIE AMAYA UNIT #: [id number] [facility] AGE: 72 SEX: F ATTEND: Elliot Caban MD ADM AUTHOR: Maria Esther Nathan NP * ALL edits or amendments must be made on the [employer]/computer document * Clinical Note Note: S: pain [...] 76 97 05/29 0728 Room air 05/29 0333 36.4 55 16 130/61 88 98 Nasal [...] dressing on 06/04 [facility] extensive comorbities post op (HTN, Asthma, OA, Back Pain) started Xarelto for DVT prophylaxis will dc home today fup w/ Dr. Caban in 2 weeks Electronically Signed by Maria Esther Nathan NP on at 1337 at 0835 RPT #:[id number] END OF REPORT 2018-05-29 [facility] 07:33:00-00:00 [facility] ([facility]) Internal Medicine Prog. Note REPORT#:[id number] REPORT STATUS: Signed DATE:05/29/18 TIME: 732 PATIENT: SWEETIE AMAYA UNIT #: [id number] ROOM/BED: [address] : 47 AGE: 72 SEX: F ATTEND: Elliot Caban MD ADM AUTHOR: Sharath Bennett MD * ALL edits or amendments must be made on the One[employer]/computer document * Subjective Patient reports: no complain [...] air 05/30 727 Pulse Ox 98 05/29 0333 B/P 130/61 05/29 0333 B/P Mean 88 05/29 0333 Temp 97.5 05/29 0333 Pulse 55 05/29 0333 Resp 16 05/29 0333 FiO2 32 05/29 0002 O2 Flow Rate 3.030765 05/29 0002 24 hour I O ending [...] bowel sounds, soft, no distention Genitourinary: no gonzales Extremities: Extremities: no calf tenderness, no edema Results Findings/Data: Laboratory Tests 05/29/18 033: [Embedded Image Not Available] Laboratory Tests 05/30 [...] (8.2 - 10.1 mg/dL) 8.8 Laboratory Tests 05/29 033 Hematology Hgb (12 - 16 g/dL) 11.0 [...] Sharath Bennett MD on 08/12 at 0755 RPT #:[id number] END OF REPORT 2018-05-29 [id number] [facility] 05:48:00-00:00 [address] [address] PATIENT NAME: SWEETIE AMAYA ADMIT DATE: 05/28 ACCOUNT NO: [id number] ROOM NO: Y.502 AGE: 72 REPORT TYPE: OPERATIVE REPORT SEX: F ADMITTING PHYSICIAN:Theo Caban MD ATTENDING PHYSICIAN:Theo Caban MD OPERATION DATE: 05/28/2018 PREOPERATIVE DIAGNOSIS: Degenerative joint disea se, right knee. POSTOPERATIVE DIAGNOSIS: Degenerative joint dise ase, right knee. PROCEDURE PERFORMED: Right total knee arthroplas ty. SURGEON: Theo Caban MD COUNTY HISTORIAN: Marck Dey CST/[place] ANESTHESIA: General anesthesia. ESTIMATED [...] room where a timeout was PATIENT NAME: SWEETIE AMAYA [id number] performed prior to induction of anesthesia, ensu [...] femur was cut in 4 PATIENT NAME: SWEETIE AMAYA [id number] degrees of valgus. Attention was turned to [...] the patella was retracted laterally PATIENT NAME: SWEETIE AMAYA [id number] without eversion. A small step drill was [...] the anesthesia team and taken to the [facility] anesthesia care unit in stable condition. POSTOPERATIVE PLAN: Weightbearing and range of m otion as tolerated. The skilled assistance of Marck Dey CST/Liseth FA was necessary during this surgical procedure. [...] ible without the help of a skilled curriculum assistant familiar with the proc edure and capable of safely performing the aforementioned tasks. Our facility i s not a teaching hospital and as such, no surgical residents or interns were available to assist. PATIENT NAME: SWEETIE AMAYA [id number] Dictated By: Theo Caban MD WT: OP:Y.HIM/STOGR/NTS Conf#: [id number]/DID#: [id number] Authenticated by Theo Caban MD On 11:49:32 AM at 1149 PATIENT NAME: SWEETIE AMAYA [id number] [facility] 18:10:00-00:00 [address] [address] PATIENT NAME: SWEETIE AMAYA ADMIT DATE: 05/28 ACCOUNT NO: [id number] ROOM NO: Y.502 AGE: 72 REPORT TYPE: CONSULTATION REPORT SEX: [...] not smoke or drink alcohol. PATIENT NAME: SWEETIE AMAYA [id number] REVIEW OF SYSTEMS: The patient denies exertional [...] Continue physical therapy in a.m. PATIENT NAME: SWEETIE AMAYA [id number] 12. Check H and H and chem-6 in a.m. Thank you very much for this consultation. I sheldon l follow patient with you during her hospitalization. Dictated By: Sharath Bennett MD WT: CON:MAGEN/KELSEA/GIACOMO Conf#: [id number]/DID#: [id number] Authenticated by Sharath Bennett MD On 06/01/2018 07:44:09 AM Electronically Signed by Sharath Bennett MD on at 0744 PATIENT NAME: SWEETIE AMAYA [id number] [id number] [facility] 18:00:00-00:00 [facility] ([facility]) Internal Medicine Prog. Note REPORT#:[id number] REPORT STATUS: Signed DATE:05/28/18 TIME: 1800 PATIENT: SWEETIE AMAYA UNIT #: [id number] [facility] AGE: 72 SEX: F ATTEND: Elliot Caban MD ADM AUTHOR: Sharath Bennett MD * ALL edits or amendments must be made on the One[employer]/computer document * Subjective Free Text Subj Notes Free Text Subj Notes: Consult Note Dictated Objective General VS/I O: Vital Signs Date Temp Pulse Resp B/P B/P Mean Pulse Ox FiO2 05/28 96.8-97.2 46-96 12-20 117-171/69-76 96.1 96-100 Last Documented: Result Date Time O2 Delivery Nasal cannula 05/28 1708 O2 Flow Rate 3.234108 05/28 1708 Pulse Ox 100 05/28 1610 [...] Bennett MD on 07/13 at 1853 RPT #:[id number] END OF REPORT 2018-05-28 [facility] 12:57:00-00:00 [facility] ([facility]) Brief Op Note REPORT#:[id number] REPORT STATUS: Signed DATE:05/28/18 TIME: 1257 PATIENT: SWEETIE AMAYA UNIT #: [id number] ROOM/BED: 998-18 : 47 AGE: 72 SEX: F ATTEND: Elliot Caban MD ADM AUTHOR: Theo Caban MD * ALL edits or amendments must be made on the [employer]/computer document * Op/Inv Proc Note - Brief Pre-procedure diagnosis: djd r knee Post-procedure diagnosis: same as pre procedure dx Procedures performed: r tka Primary Surgeon: sveta Electric Engine Mechanic(s): anali Anesthesia: general anesthesia Findings: djd Complications: none Estimated blood loss in ml's: 125cc Specimens removed/altered: none at 1258 RPT #:[id number] END OF REPORT
[2022-11-19] MEDS ORDERED: ASPIRIN 81 MG CHEWABLE TABLET ONE (15:37)
[2022-11-19 15:55] LABS: Hematocrit 31.8 % (36.0-45.0); Lymphocytes % 7.2 % (15.3-44.8); MCV 81.9 fL (80-100); MPV 7.9 fL (7.6-11.3); Platelets 333 thou/uL (152-406); RBC Red Blood Cell Count 3.88 M/uL (3.86-4.86)
[2022-11-19 16:03] LABS: Protime INR 1.11
--- NOTE | 2022-11-19 16:04 | RAD REPORT ---
EXAM DESCRIPTION: RAD - Chest Single View - 11/19/2022 3:48 pm CLINICAL HISTORY: CHEST PAIN COMPARISON: Chest Single View dated 08/30/2022; Chest Pa And Lat (2 Views) dated 05/08/2020; CHEST PA A ND LAT 2 VIEW dated 08/02/2006 FINDINGS: Lines: None. Lungs: Hazy opacities present bilaterally. Pleural: Small pleural effusions. Cardiac: The heart size is within normal limits. Mediastinum: Within normal limits. Bones: No acute fractures. Sternotomy. Other: Pacemaker. IMPRESSION: Pulmonary edema with small pleural effusions.
[2022-11-19 16:16] LABS: Albumin 2.8 g/dL (3.4-5.0); Bilirubin Direct 0.2 mg/dL (0-0.2); Bilirubin Indirect, Calculated 0.2 mg/dL (0.2-0.8); Bilirubin Total 0.4 mg/dL (0.2-1.0); Magnesium 1.9 mg/dL (1.6-2.4); Potassium 2.8 mEq/L (3.5-5.1); Protein, Total 7.4 g/dL (6.4-8.2); Troponin High Sensitivity 12.6 pg/mL (<58.9)
[2022-11-19] MEDS ORDERED: POTASSIUM 25 MEQ EFFERV TAB ONE (17:12)
[2022-11-19] MEDS ORDERED: KCL 20 MEQ/100 mL IVPB 100 ML IV ONE ×2 (17:12→20:12)
[2022-11-19] MEDS ORDERED: NA CHLORIDE 0.9% 1,000 ML ONE (17:13)
--- NOTE | 2022-11-19 18:44 | RAD REPORT ---
EXAM DESCRIPTION: CT - Chest For Pe Angio - 11/19/2022 6:32 pm CLINICAL HISTORY: Chest pain;Dyspnea COMPARISON: No comparisons TECHNIQUE: Dynamically enhanced axial 3 mm thick images of the chest were obtained during administra tion of <100> mL Isovue 370 IV contrast. Coronal and oblique reconstruction images were generated and reviewed. Exam utilizes a protocol for optimal evaluation of pulmonary arterial tree. Maximum intensity projections 3D imaging was utilized All CT scans are performed using dose optimization technique as appropriate and may include automated exposure control or mA/KV adjustment according to patient size. FINDINGS: Chest Wall: No suspicious thyroid nodules or pathologic lymphadenopathy. Left upper chest wall pacemaker. Lungs: Likely atelectasis as a result of the pleural effusions. Pleura: Moderate bilateral pleural effusions. Mediastinum/alfonso: No pathologic lymphadenopathy. Pulmonary arteries/Aorta: No filling defect identified. No aortic aneurysm. Heart: Interval mitral valve replacement. Normal heart size. Small pericardial effusion. Upper abdomen: No acute abnormality. Bones: No acute abnormality. Interval sternotomy. IMPRESSION: Negative for pulmonary embolism. Moderate bilateral pleural effusions with likely underl cheli atelectasis. The source of the effusions may be due to either edema and/or recent sternotomy. Small pericardial effusion. Retrosternal fluid consistent with recent sternotomy.
--- NOTE | 2022-11-19 19:07 | ER ---
Nurse's Notes [facility] Name: Sweetie Rivera Age: 77 yrs Sex: Female : 1945 Arrival Date: 11/19/2022 Time: 15:14 Bed 4 Private MD: Diagnosis: Pleural effusion, not elsewhere classified;Pericardial effusion (noninflammatory);Hypokalemia;Fever, unspecified Presentation: 11/19 15:24 Chief complaint: Patient states: SOB and CP for 3 days. + fever at home. Coronavirus ll1 screen: Vaccine status: Patient reports receiving the 2nd dose of the covid vaccine. Client denies travel out of the [place] in the last 14 days. cough unrelated to allergies, difficulty breathing, fatigue, fever, headache, Client presents with at least one sign or symptom that may indicate coronavirus-19. Standard/surgical mask placed on the client. Ebola Screen: Patient denies travel to an Ebola-affected area in the 21 days before illness onset. Initial Sepsis Screen: Does the patient meet any 2 criteria? No. Patient's initial sepsis screen is negative. Does the patient have a suspected source of infection? No. Patient's initial sepsis screen is negative. Risk Assessment: Do you want to hurt yourself or someone else? Patient reports no desire to harm self or others. Onset of symptoms was November 17, 2022. 15:24 Method Of Arrival: Ambulatory [facility] 15:24 Acuity: PIETER 3 ll1 Historical: - Allergies: 15:24 PENICILLINS; ll1 - Home Meds: 18:57 Lasix 20 mg Oral tablet daily [Active]; mesalamine 0.375 gram oral Capsule, ER 24 hr hb twice a day [Active]; Protonix 40 mg Oral granules delayed release for susp packet every morning [Active]; amlodipine 10 mg tablet daily [Active]; aspirin 81 mg oral tablet,chewable [Active]; captopril 25 mg oral tablet [Active]; metoprolol tartrate 50 mg Oral tablet 2 times per day [Active]; gabapentin 300 mg oral capsule twice a day [Active]; atorvastatin 20 mg oral tablet nightly [Active]; - PMHx: 15:24 Borderline Diabetes; Hypertensive disorder; mitral valve leak; ll1 - PSHx: 15:24 Carotid endarterectomy; mitral valve replacement; ll1 - Immunization history:: Client reports receiving the 2nd dose of the Covid vaccine. - Social history:: Smoking status: Patient denies any tobacco usage or history of. Screenin:39 [facility] ED Fall Risk Assessment (Adult) History of falling in the last 3 months, ld1 including since admission No falls in past 3 months (0 pts). Abuse screen: Denies threats or abuse. Denies injuries from another. Nutritional screening: No deficits noted. Tuberculosis screening: No symptoms or risk factors identified. Assessment: 15:39 General: Appears in no apparent distress. comfortable, Behavior is calm, cooperative, ld1 appropriate for age. Pain: Complains of pain in chest Pain does not radiate. Pain currently is 5 out of 10 on a pain scale. Quality of pain is described as throbbing. Neuro: Level of Consciousness is awake, alert, obeys commands, Oriented to person, place, time, situation. Cardiovascular: Capillary refill < 3 seconds Patient's skin is warm and dry. Rhythm is sinus rhythm. Respiratory: Airway is patent Respiratory effort is even, unlabored, Breath sounds are clear bilaterally. GI: Abdomen is round non-distended. : No signs and/or symptoms were reported regarding the genitourinary system. EENT: No signs and/or symptoms were reported regarding the EENT system. Derm: No signs and/or symptoms reported regarding the dermatologic system. Musculoskeletal: No signs and/or symptoms reported regarding the musculoskeletal system. 16:45 Reassessment: Patient appears in no apparent distress at this time. Patient and/or hb family updated on plan of care and expected duration. Pain level reassessed. Patient is alert, oriented x 3, equal unlabored respirations, skin warm/dry/pink. 18:18 Reassessment: Patient appears in no apparent distress at this time. Patient and/or hb family updated on plan of care and expected duration. Pain level reassessed. Patient is alert, oriented x 3, equal unlabored respirations, skin warm/dry/pink. 19:31 General: Appears in no apparent distress. comfortable, Behavior is calm, cooperative. lg3 Neuro: No deficits noted. Contreras Agitation-Sedation Scale (RASS): 0 - Alert and Calm Level of Consciousness is awake, alert, obeys commands, Oriented to person, place, time, situation. Cardiovascular: No deficits noted. Capillary refill < 3 seconds Clubbing of nail beds is absent JVD is absent Patient's skin is warm and dry. Respiratory: No deficits noted. Airway is patent Respiratory effort is even, unlabored, Respiratory pattern is regular, symmetrical, Breath sounds are clear bilaterally. GI: No deficits noted. No signs and/or symptoms were reported involving the gastrointestinal system. Abdomen is round non-distended. : No deficits noted. No signs and/or symptoms were reported regarding the genitourinary system. EENT: No deficits noted. No signs and/or symptoms were reported regarding the EENT system. Derm: No deficits noted. No signs and/or symptoms reported regarding the dermatologic system. Skin is intact, is thin, Skin is dry, Skin is normal, Skin temperature is warm. Musculoskeletal: No deficits noted. No signs and/or symptoms reported regarding the musculoskeletal system. Circulation, motion, and sensation intact. Range of motion: intact in all extremities. Vital Signs: 15:24 BP 151 / 92; Pulse 70; Resp 18; Temp 100; Pulse Ox 100% on R/A; Weight 75.75 kg; Height ll1 5 ft. 9 in. ; Pain 4/10; 15:39 BP 167 / 75; Pulse 90; Resp 22; Pulse Ox 97% on R/A; ld1 17:30 BP 156 / 72; Pulse 86; Resp 15; Temp 98.9(O); Pulse Ox 97% on R/A; hb 18:57 BP 155 / 99; Pulse 98; Resp 18; Temp 98.6(O); Pulse Ox 99% on R/A; hb 19:31 BP 164 / 78; Pulse 94; Resp 16 S; Pulse Ox 98% on R/A; lg3 15:24 Body Mass Index 24.66 (75.75 kg, 175.26 cm) ll1 15:24 Pain Scale: Adult ll1 ED Course: 15:16 Patient arrived in ED. rg4 15:22 Eloisa Thurston FNP-C is PHCP. snw 15:22 Malcolm Newby MD is Attending Physician. snw 15:24 Arm band placed on Patient placed in an exam room, on a stretcher. ll1 15:25 Triage completed. ll1 15:38 Blood Culture Adult (2) Sent. ld1 15:38 Lactate w/ 2H reflex if indic. Sent. ld1 15:38 TS Sent. ld1 15:38 Inserted saline lock: 20 gauge in right antecubital area, using aseptic technique. ld1 Blood collected. 15:39 Patient has correct armband on for positive identification. Placed in gown. Bed in low ld1 position. Call light in reach. Side rails up X2. patient service specialist on. Pulse ox on. NIBP on. Door closed. Noise minimized. Warm blanket given. 15:39 No provider procedures requiring assistance completed. ld1 15:50 XRAY Chest (1 view) In Process Unspecified. EDMS 15:53 Sylvie John, FELXI is Primary Nurse. hb 17:37 Missed attempt(s): 22 gauge in left in right forearm. Bleeding controlled, band aid ll1 applied, catheter tip intact. 18:16 Inserted saline lock: 20 gauge in right wrist, using aseptic technique. Blood collected.hb 18:34 CT Chest For PE Angio In Process Unspecified. EDMS 19:06 Kody Vale MD is Hospitalizing Provider. snw 19:31 Family accompanied patient. lg3 19:31 Patient maintains SpO2 saturation greater than 95% on room air. lg3 19:56 Patient admitted, IV remains in place. intact, No redness/swelling at site. lg3 Administered Medications: 15:38 Drug: Aspirin PO Chewable Tablet 324 mg Route: PO; ld1 18:56 Drug: Potassium PO Effervescent Tablet 50 mEq Route: PO; hb 20:07 Follow up: Response: No adverse reaction lg3 18:56 Drug: Potassium Chloride IV 20 mEq Route: IV; Rate: calculated rate; Site: right wrist; hb 20:07 Follow up: Response: No adverse reaction; IV Status: Completed infusion; IV Intake: lg3 100ml 18:56 Drug: NS 0.9% IV 1000 ml Route: IV; Rate: 50 ml/hr; Site: right wrist; hb 20:06 Follow up: IV Status: Infusion continued upon admission lg3 19:29 Drug: Potassium Chloride IV 20 mEq Route: IV; Rate: calculated rate; Site: right hand; lg3 19:57 Follow up: IV Status: Infusion continued upon admission lg3 20:03 Follow up: IV Status: Infusion continued upon admission lg3 19:45 Drug: Rocephin IV 1 grams Route: IV; Rate: calculated rate; Site: right wrist; lg3 19:56 Follow up: Response: No adverse reaction; IV Status: Completed infusion; IV Intake: [id number] 19:45 Not Given (per pharmacyy): vancoMYCIN IVPB 1.5 grams IVPB at calculated rate once lg3 Medication: 15:39 VIS not applicable for this client. ld1 Intake: 19:56 IV: 10ml; Total: 10ml. lg3 20:07 IV: 100ml; Total: 110ml. lg3 Outcome: 19:06 Decision to Hospitalize by Provider. snw 19:56 Admitted to Med/surg accompanied by tech, via stretcher, room 217, Report called to lg3 Isabella 19:56 Condition: stable 19:56 Instructed on the need for admit, Demonstrated understanding of instructions. 20:09 Patient left the ED. lg3 Signatures: Dispatcher [employer] EDMS Eloisa Thurston, GEAR DESIGN ENGINEER-C GEAR DESIGN ENGINEER-Csnw Sylvie John, RN RN Swetha Licea rg4 Jennie Olsen RN RN lg3 Wil Valenzuela RN RN ll1 Kaylynn Camarena, RN RN ld1
--- NOTE | 2022-11-19 19:07 | EDPHYS ---
Physician Documentation [facility] Name: Sweetie Rivera Age: 77 yrs Sex: Female : 1945 Arrival Date: 11/19/2022 Time: 15:14 Bed 4 Private MD: TOREY Physician Malcolm Newby HPI: 11/19 15:48 This 77 yrs old Female presents to ER via Ambulatory with complaints of Shortness Of snw Breath, Chest Pain. 15:48 The patient has shortness of breath at rest. Onset: The symptoms/episode began/occurred snw acutely. Duration: The symptoms are continuous. Associated signs and symptoms: Pertinent positives: chest pain. The patient has not experienced similar symptoms in the past. The patient has been recently seen by a physician: Ms. Rivera had mitral valve replacement, pacemaker placement, and ablation in August, has been doing well and going to cardiac rehab. Pt started having 101 fever, pleuritic chest pain, and sob yesterday. Historical: - Allergies: 15:24 PENICILLINS; ll1 - Home Meds: 18:57 Lasix 20 mg Oral tablet daily [Active]; mesalamine 0.375 gram oral Capsule, ER 24 hr hb twice a day [Active]; Protonix 40 mg Oral granules delayed release for susp packet every morning [Active]; amlodipine 10 mg tablet daily [Active]; aspirin 81 mg oral tablet,chewable [Active]; captopril 25 mg oral tablet [Active]; metoprolol tartrate 50 mg Oral tablet 2 times per day [Active]; gabapentin 300 mg oral capsule twice a day [Active]; atorvastatin 20 mg oral tablet nightly [Active]; - PMHx: 15:24 Borderline Diabetes; Hypertensive disorder; mitral valve leak; ll1 - PSHx: 15:24 Carotid endarterectomy; mitral valve replacement; ll1 - Immunization history:: Client reports receiving the 2nd dose of the Covid vaccine. - Social history:: Smoking status: Patient denies any tobacco usage or history of. ROS: 15:52 Eyes: Negative for injury, pain, redness, and discharge, ENT: Negative for injury, snw pain, and discharge, Neck: Negative for injury, pain, and swelling. 15:52 Abdomen/GI: Negative for abdominal pain, nausea, vomiting, diarrhea, and constipation, Back: Negative for injury and pain, : Negative for injury, bleeding, discharge, and swelling, MS/Extremity: Negative for injury and deformity, Skin: Negative for injury, rash, and discoloration, Neuro: Negative for headache, weakness, numbness, tingling, and seizure, Psych: Negative for depression, anxiety, suicide ideation, homicidal ideation, and hallucinations. 15:52 Constitutional: Positive for body aches, fever, malaise. 15:52 Cardiovascular: Positive for chest pain, of the anterior aspect of left upper chest and left breast. 15:52 Respiratory: Positive for dyspnea on exertion, pleurisy, shortness of breath. Exam: 15:51 Head/Face: Normocephalic, atraumatic. Eyes: Pupils equal round and reactive to light, snw extra-ocular motions intact. Lids and lashes normal. Conjunctiva and sclera are non-icteric and not injected. Cornea within normal limits. Periorbital areas with no swelling, redness, or edema. ENT: Nares patent. No nasal discharge, no septal abnormalities noted. Tympanic membranes are normal and external auditory canals are clear. Oropharynx with no redness, swelling, or masses, exudates, or evidence of obstruction, uvula midline. Mucous membranes moist. Neck: Trachea midline, no thyromegaly or masses palpated, and no cervical lymphadenopathy. Supple, full range of motion without nuchal rigidity, or vertebral point tenderness. No Meningismus. Chest/axilla: Normal chest wall appearance and motion. Nontender with no deformity. No lesions are appreciated. 15:51 Abdomen/GI: Soft, non-tender, with normal bowel sounds. No distension or tympany. No guarding or rebound. No evidence of tenderness throughout. Back: No spinal tenderness. No costovertebral tenderness. Full range of motion. Skin: Warm, dry with normal turgor. Normal color with no rashes, no lesions, and no evidence of cellulitis. MS/ Extremity: Pulses equal, no cyanosis. Neurovascular intact. Full, normal range of motion. Neuro: Awake and alert, GCS 15, oriented to person, place, time, and situation. Cranial nerves II-XII grossly intact. Motor strength 5/5 in all extremities. Sensory grossly intact. Cerebellar exam normal. Normal gait. Psych: Awake, alert, with orientation to person, place and time. Behavior, mood, and affect are within normal limits. 15:51 Constitutional: The patient appears awake, anxious, uncomfortable. 15:51 Cardiovascular: Rate: normal, Rhythm: regular, Heart sounds: normal, Edema: is not appreciated. 15:51 Respiratory: the patient does not display signs of respiratory distress, Respirations: shallow respirations, that is mild, tachypnea, Breath sounds: bronchial sounds. Vital Signs: 15:24 BP 151 / 92; Pulse 70; Resp 18; Temp 100; Pulse Ox 100% on R/A; Weight 75.75 kg; Height ll1 5 ft. 9 in. ; Pain 4/10; 15:39 BP 167 / 75; Pulse 90; Resp 22; Pulse Ox 97% on R/A; ld1 17:30 BP 156 / 72; Pulse 86; Resp 15; Temp 98.9(O); Pulse Ox 97% on R/A; hb 18:57 BP 155 / 99; Pulse 98; Resp 18; Temp 98.6(O); Pulse Ox 99% on R/A; hb 19:31 BP 164 / 78; Pulse 94; Resp 16 S; Pulse Ox 98% on R/A; lg3 15:24 Body Mass Index 24.66 (75.75 kg, 175.26 cm) ll1 15:24 Pain Scale: Adult ll1 MDM: 15:23 Patient medically screened. [facility] 15:52 Differential diagnosis: endocarditis, pericarditis, pneumonia. Data reviewed: vital w signs, nurses notes. 16:53 I considered the following discharge prescriptions or medication management in the [facility] emergency department Medications were administered in the Emergency Department. See MAR. Counseling: I had a detailed discussion with the patient and/or guardian regarding the historical points, exam findings, and any diagnostic results supporting the discharge/admit diagnosis, the presence of at least one elevated blood pressure reading (>120/80) during this emergency department visit, lab results, radiology results, the need for further work-up and treatment in the hospital. Awaiting: CT scan results. 19:05 Management of patient was discussed with the following: Hospitalist: Giovani Harvey. [facility] 11/19 15:22 Order name: Basic Metabolic Panel; Complete Time: 16:18 [facility] 11/19 15:22 Order name: CBC with Diff; Complete Time: 16:06 [facility] 11/19 15:22 Order name: D-Dimer; Complete Time: 16:06 snw 11/19 15:22 Order name: LFT's; Complete Time: 16:18 snw 11/19 15:22 Order name: Magnesium; Complete Time: 16:18 w 11/19 15:22 Order name: NT PRO-BNP; Complete Time: 16:18 snw 11/19 15:22 Order name: PT-INR; Complete Time: 16:06 snw 11/19 15:22 Order name: Troponin HS; Complete Time: 16:18 snw 11/19 15:22 Order name: TS; Complete Time: 19:01 w 11/19 15:28 Order name: Blood Culture Adult (2) snw 11/19 15:28 Order name: Lactate w/ 2H reflex if indic.; Complete Time: 16:31 w 11/19 15:28 Order name: CPK; Complete Time: 16:31 snw 11/19 15:50 Order name: SARS-COV-2 RT PCR; Complete Time: 16:31 snw 11/19 19:10 Order name: Urine W/Microscopic (UAM); Complete Time: 19:31 lg3 11/19 19:18 Order name: ABO/RH no charge; Complete Time: 19:20 EDMS 11/19 15:22 Order name: XRAY Chest (1 view); Complete Time: 16:06 w 11/19 15:29 Order name: Echo w/ Doppler snw 11/19 15:34 Order name: CT Chest For PE Angio; Complete Time: 19:01 snw 11/19 15:22 Order name: EKG; Complete Time: 15:23 w 11/19 15:22 Order name: Cardiac monitoring; Complete Time: 15:38 snw 11/19 15:22 Order name: EKG - Nurse/Tech; Complete Time: 15:38 w 11/19 15:22 Order name: IV Saline Lock; Complete Time: 15:38 snw 11/19 15:22 Order name: Labs collected and sent; Complete Time: 15:38 w 11/19 15:22 Order name: O2 Per Protocol; Complete Time: 15:24 snw 11/19 15:22 Order name: O2 Sat Monitoring; Complete Time: 15:24 snw EC:35 Rate is 93 beats/min. Rhythm is regular. MT interval is prolonged. Q waves are Present snw in leads V1, V5, V6. Clinical impression: NSR w/ Non-specific ST/T Changes. Administered Medications: 15:38 Drug: Aspirin PO Chewable Tablet 324 mg Route: PO; ld1 18:56 Drug: Potassium PO Effervescent Tablet 50 mEq Route: PO; hb 20:07 Follow up: Response: No adverse reaction lg3 18:56 Drug: Potassium Chloride IV 20 mEq Route: IV; Rate: calculated rate; Site: right wrist; hb 20:07 Follow up: Response: No adverse reaction; IV Status: Completed infusion; IV Intake: lg3 100ml 18:56 Drug: NS 0.9% IV 1000 ml Route: IV; Rate: 50 ml/hr; Site: right wrist; hb 20:06 Follow up: IV Status: Infusion continued upon admission lg3 19:29 Drug: Potassium Chloride IV 20 mEq Route: IV; Rate: calculated rate; Site: right hand; lg3 19:57 Follow up: IV Status: Infusion continued upon admission lg3 20:03 Follow up: IV Status: Infusion continued upon admission lg3 19:45 Drug: Rocephin IV 1 grams Route: IV; Rate: calculated rate; Site: right wrist; lg3 19:56 Follow up: Response: No adverse reaction; IV Status: Completed infusion; IV Intake: 09ufst3 19:45 Not Given (per pharmacyy): vancoMYCIN IVPB 1.5 grams IVPB at calculated rate once lg3 Disposition Summary: 11/19/22 19:06 Hospitalization Ordered Hospitalization Status: Inpatient Admission snw Provider: Kody Vale snw Location: Telemetry/MedSur (Inpatient) snw Condition: Stable snw Problem: new snw Symptoms: are unchanged snw Bed/Room Type: Standard snw Room Assignment: 217(11/19/22 19:40) mw Diagnosis - Pleural effusion, not elsewhere classified snw - Pericardial effusion (noninflammatory) snw - Hypokalemia snw - Fever, unspecified snw Forms: - Medication Reconciliation Form snw - SBAR form snw - Leadership Thank You Letter snw Signatures: Dispatcher [employer] EDME Ricarda Munoz RN RN mw Waters, Shelly, FNP-C [address] [employer] COMMANDER-Csnw Sylvie John RN RN hb Jennie Olsen, RN RN lg3 Wil Valenzuela, RN RN ll1 Kaylynn Camarena RN RN ld1 Corrections: (The following items were deleted from the chart) 18:49 17:09 Antibody Identification ordered. EDMS EDMS 19:40 19:06 genaro odonnell
[2022-11-19] MEDS ORDERED: ONDANSETRON 4 MG/2 ML VIAL IV PRN (19:18)
[2022-11-19] MEDS ORDERED: PIPER TAZO 3.375 GM in NA CHLORIDE 0.9% 100 ML IV SCH (19:18)
[2022-11-19] MEDS ORDERED: ACETAMINOPHEN 500 MG TAB PO PRN (19:18)
--- NOTE | 2022-11-19 19:20 | P.HP ---
Certification for Inpatient Patient admitted to: Inpatient With expected LOS: <2 Midnights Patient will require the following post-hospital care: None Practitioner: I am a practitioner with admitting privileges, knowledge of patient current condition, hospital course, and medical plan of care. Services: Services provided to patient in accordance with Admission requirements found in Title 42 Section 412.3 of the Code of Federal Regulations Patient History Date of Service: 11/19/22 Reason for admission: Chest pain History of Present Illness: 77-year-old female with a past medical history of borderline diabetes, hypertension, recent permanent pacemaker, MVR, ablation and cardiac rehab presents to the emergency room with shortness of breath and fever. She reports fever started 2 or 3 days ago, is intermittent she reports shortness of breath has gotten worse over the last 2 days, shortness of breath is worse with exertion. She reports recently completing cardiac rehab seeing cardiology. She reports pleuritic chest pain that is constant. She denies pain with radiation, denies nausea vomiting diarrhea, edema. She reports medication compliance. Plan to admit for chest pain, acute on chronic heart failure, pleural effusions, pericardial effusion, hypokalemia ER evaluation BP 151 / 92; Pulse 70; Resp 18; Temp 100; Pulse Ox 100% on R/A; Weight 75.75 kg; Height ll1 5 ft. 9 in. ; Pain 4/10; EKGate is 93 beats/min. Rhythm is regular. IL interval is prolonged. Q waves are Present in leads V1, V5, V6. Clinical impression: NSR w/ Non-specific ST/T Changes. Laboratory evaluation leukocytosis WBCs 13.40, neutrophils 84.7, left shift, anemia 10.3, 31.8 D-dimer elevated at 4410, mild hyponatremia at 135, hypokalemia 2.8, acute kidney injury BUN 12 creatinine 1.03, BNP 1777, UA 25 leukoesterase 2+ glucose. CT of the chest abdomen IMPRESSION: Negative for pulmonary embolism. Moderate bilateral pleural effusions with likely underlying atelectasis. The source of the effusions may be due to either edema and/or recent sternotomy. Small pericardial effusion. Retrosternal fluid consistent with recent sternotomy Chest x-ray IMPRESSION: Pulmonary edema with small pleural effusions. Allergies Penicillins Adverse Reaction (Verified 05/08/20 13:49) Hives/Rash Home Medications: Amlodipine [Norvasc*] 5 mg PO DAILY 12/15/14 Atorvastatin Calcium [Lipitor] 40 mg PO BEDTIME 12/15/14 Etodolac [Lodine Xl] 500 mg PO DAILY 12/15/14 Gabapentin [Neurontin*] 900 mg PO BEDTIME 12/15/14 Lisinopril/Hydrochlorothiazide [Zestoretic 20-12.5 mg Tablet] 1 tab PO DAILY 12/15/14 Metoprolol Tartrate [Lopressor] 50 mg PO BEDTIME 12/15/14 Omeprazole [Prilosec] 40 mg PO 0600 12/15/14 Vancomycin Oral Soln [Vancocin HCl*] 250 mg PO QID #280 ml 12/18/14 - Past Medical/Surgical History Diabetic: No -: htn, bradycardia -: Mitral valve insufficiency with recent mitral valve replacement -: Hypertension -: Permanent pacemaker -: Cardiac ablation -: appy, ermelinda, hyst -: Recent MVR -: Cardiac ablation - Family History mom -: Heart disease, Diabetes dad -: Heart disease, Hypertension - Social History Smoking Status: Never smoker Alcohol use: No CD- Drugs: No Caffeine use: Yes Review of Systems 10-point ROS is otherwise unremarkable Physical Examination - Physical Exam General: Alert, In no apparent distress, Mild distress HEENT: Atraumatic, Normocephalic, PERRLA Neck: Supple, 2+ carotid pulse no bruit Respiratory: Normal air movement, Diminished, Crackles/rales Cardiovascular: Regular rate/rhythm, Normal S1 S2 Capillary refill: <2 Seconds Gastrointestinal: Normal bowel sounds, Soft and benign Musculoskeletal: No clubbing, No swelling Integumentary: No rashes, No breakdown Neurological: Normal speech, Normal strength at 5/5 x4 extr, Cranial nerves 3-12 intact - Studies Laboratory Data (last 24 hrs) 11/19/22 11/19/22 11/19/22 15:42 15:42 15:42 WBC 13.40 H Hgb 10.3 L Hct 31.8 L Plt Count 333 PT 12.2 INR 1.11 Sodium 135 L Potassium 2.8 L BUN 12 Creatinine 1.03 H Glucose 171 H Magnesium 1.9 Total Bilirubin 0.4 AST 8 L ALT 15 Alkaline Phosphatase 118 H Assessment and Plan - Plan Assessment plan Acute on chronic heart failure Recent permanent pacemaker, MVR, ablation Bilateral pleural effusion Pericardial effusion Acute kidney injury Leukocytosis Hypokalemia Hypertension Anemia Hyperlipidemia Prediabetes DVT prophylaxis Assessment plan Acute on chronic heart failure Recent permanent pacemaker, MVR, ablation Bilateral pleural effusion Pericardial effusion Cardiology consult, telemetry, DAVID, daily weight IV diuretics, trend troponins, BNP EKGate is 93 beats/min. Rhythm is regular. IL interval is prolonged. Q waves are Present in leads V1, V5, V6. Clinical impression: NSR w/ Non-specific ST/T Changes.BNP 1777, D-dimer elevated at 4410, CT of the chest abdomen IMPRESSION: Negative for pulmonary embolism. Moderate bilateral pleural effusions with likely underlying atelectasis. The source of the effusions may be due to either edema and/or recent sternotomy. Small pericardial effusion. Retrosternal fluid consistent with recent sternotomy Chest x-ray IMPRESSION: Pulmonary edema with small pleural effusions. Leukocytosis IV vancomycin, ceftriaxone, blood cultures, urine cultures leukocytosis WBCs 13.40, neutrophils 84.7, left shift, Vancomycin and ceftriaxone, Acute kidney injury acute kidney injury BUN 12 creatinine 1.03 Hypokalemia Trend electrolytes replace as needed hypokalemia 2.8, Anemia anemia 10.3, 31.8 Hypertension Hyperlipidemia Prediabetes Resume appropriate home medications, DVT prophylaxis Lovenox Cardiac diet Full code Discharge Plan: Home Plan to discharge in: 48 Hours - Advance Directives Does patient have a Living Will: No Does patient have a Durable POA for Healthcare: No - Code Status/Comfort Care Code Status: Full Code Physician Review: Patient Assessed, Agree with Above Assessment and Plan Critical Care: No Time Spent Managing Pts Care (In Minutes): 50
[2022-11-19 19:22] LABS: Specific Gravity > 1.030 (1.005-1.030); Urine Bacteria None Seen /HPF (<20); Urine Bilirubin NEGATIVE (Negative); Urine Blood Negative (Negative); Urine Clarity Clear (Clear); Urine Color Yellow (Yellow); Urine Glucose 2+ (Negative); Urine Protein 1+ (Negative); Urine RBC <5 /HPF (None Seen); Urine Urobilinogen 1+ (Normal); Urine pH 6.5 (5.0-7.0)
[2022-11-19] MEDS ORDERED: NA CHLORIDE 0.9% 250 ML ONE (19:38)
[2022-11-19] MEDS ORDERED: VANCOMYCIN 1 GM/VIAL ONE (19:38)
[2022-11-19] MEDS ORDERED: CEFTRIAXONE 1000 MG/VIAL ONE (19:38)
[2022-11-19] MEDS ORDERED: VANCOMYCIN 1.25 GM in NA CHLORIDE 0.9% 250 ML IVPB SCH (20:00)
[2022-11-19 20:56] VITALS: BMI 23.6
[2022-11-19] MEDS ORDERED: METOPROLOL TAR 50 MG TAB PO SCH (21:00)
[2022-11-19] MEDS: SPIRONOLACTONE 25 MG TABLET PO SCH (21:42)
[2022-11-19] MEDS: FUROSEMIDE 40 MG/4 ML VIAL IV SCH (21:42)
[2022-11-19] MEDS: GABAPENTIN 300 MG CAP PO SCH (22:56)
[2022-11-19] MEDS: CAPTOPRIL 25 MG TABLET PO SCH (22:57)
[2022-11-19] MEDS: METOPROLOL TAR 50 MG TAB PO SCH (22:58)
[2022-11-20] MEDS ORDERED: VANCOMYCIN 1.25 GM in NA CHLORIDE 0.9% 250 ML IVPB SCH ×2
[2022-11-20] MEDS: FUROSEMIDE 40 MG/4 ML VIAL IV SCH ×3 (01:00→17:18)
[2022-11-20] MEDS ORDERED: VANCOMYCIN 1 GM/VIAL ONE (01:12)
[2022-11-20] MEDS ORDERED: NA CHLORIDE 0.9% 250 ML ONE (01:12)
[2022-11-20] MEDS: VANCOMYCIN 1.25 GM in NA CHLORIDE 0.9% 250 ML IVPB SCH ×2 (01:12→23:59)
[2022-11-20] MEDS ORDERED: VANCOMYCIN 500 MG/VIAL ONE (01:12)
[2022-11-20] MEDS ORDERED: VANCOMYCIN 1 GM in NA CHLORIDE 0.9% 250 ML IVPB SCH (05:00)
[2022-11-20 06:17] LABS: Absolute Lymphocytes (CBC) 1.1 K/uL (0.7-4.9); Hematocrit 26.9 % (36.0-45.0); Lymphocytes % 12.8 % (15.3-44.8); MCV 81.7 fL (80-100); MPV 8.4 fL (7.6-11.3); Platelets 277 thou/uL (152-406)
[2022-11-20 06:59] LABS: Magnesium 1.8 mg/dL (1.6-2.4); Potassium 3.5 mEq/L (3.5-5.1)
[2022-11-20 07:40] LABS: Phosphorus 3.1 mg/dL (2.5-4.9)
[2022-11-20] MEDS ORDERED: POTASSIUM CL SA 10 MEQ TAB PO ONE (07:43)
[2022-11-20] MEDS ORDERED: POTASSIUM 25 MEQ EFFERV TAB PO ONE (08:00)
[2022-11-20] MEDS ORDERED: MAGNESIUM SULFATE 1 gm IVPB 1 GM/100 ML BAG IV ONE (08:00)
[2022-11-20] MEDS: METOPROLOL TAR 50 MG TAB PO SCH ×2 (08:07→20:29)
[2022-11-20] MEDS: CEFTRIAXONE 1,000 MG in NA CHLORIDE 0.9% 50 ML IVPB SCH ×2 (08:08→20:31)
[2022-11-20] MEDS: SPIRONOLACTONE 25 MG TABLET PO SCH (08:08)
[2022-11-20] MEDS: CAPTOPRIL 25 MG TABLET PO SCH ×2 (08:11→20:28)
[2022-11-20] MEDS ORDERED: CAPTOPRIL 25 MG TABLET PO SCH (09:00)
--- NOTE | 2022-11-20 12:28 | P.PN ---
Subjective Date of Service: 11/20/22 Chief Complaint: Chest pain Patient states she feels much better today. States her shortness of breath is much better. Her oxygen saturations 99% on 1.5 L of oxygen by nasal cannula. No fever today. She states that her symptoms were preceded by an episode of NaSal congestion and nasal stuffiness. Physical Examination - Vital Signs Temperature: 97.1 F Blood Pressure: 143/67 Pulse: 78 Respirations: 16 Pulse Ox (%): 98 - Studies Laboratory Data (last 24 hrs) 11/19/22 11/19/22 11/19/22 15:42 15:42 15:42 WBC 13.40 H Hgb 10.3 L Hct 31.8 L Plt Count 333 PT 12.2 INR 1.11 Sodium 135 L Potassium 2.8 L BUN 12 Creatinine 1.03 H Glucose 171 H Magnesium 1.9 Total Bilirubin 0.4 AST 8 L ALT 15 Alkaline Phosphatase 118 H Assessment And Plan - Plan Physical Exam General: Alert, In no apparent distress. Neck: Supple, no elevated JVD. Respiratory: Normal air movement, clear to auscultation. Cardiovascular: Regular rate/rhythm, Normal S1 S2 Gastrointestinal: Normal bowel sounds, Soft and benign Musculoskeletal: No clubbing, No swelling Integumentary: No rashes, No breakdown Neurological: Normal speech, Normal strength at 5/5 x4 extr, Cranial nerves 3-12 intact Diagnosis Acute on chronic diastolic heart failure Status post ablation and permanent placement Mitral valve replacement Bilateral pleural effusion Pericardial effusion Acute kidney injury Leukocytosis Hypokalemia Hypertension Anemia Hyperlipidemia Plan: Acute on chronic heart failure Recent permanent pacemaker, MVR, ablation Bilateral pleural effusion Pericardial effusion Pleural effusion and pericardial effusion likely sequela of recent cardiothoracic surgery. Continue IV diuretics. Resume other home medications Leukocytosis Subjective fever at home. No significant fever recorded in the hospital Continue antibiotics and follow cultures Acute kidney injury Resolved Hypokalemia Corrected. Replace potassium as needed. Anemia Monitor CBC Hypertension Hyperlipidemia Prediabetes Continue home medications, DVT prophylaxis Lovenox Cardiac diet Full code
[2022-11-20] MEDS: ASPIRIN 81 MG CHEWABLE TABLET PO SCH (13:39)
[2022-11-20] MEDS: PANTOPRAZOLE 40MG TABLET PO SCH (13:39)
[2022-11-20] MEDS: AMLODIPINE 5 MG TAB PO SCH (13:39)
--- NOTE | 2022-11-20 15:06 | EKG ---
Test Date: 2022-11-19 Test Time: 15:33:43 Outsole Leveler: Veronica PEARSON MEASUREMENT RESULTS: Intervals: Rate: 93 ID: [id number] QRSD: 80 QT: 352 QTc: 437 Horton: P: 78 ID: [id number] QRS: 73 T: -18 INTERPRETIVE STATEMENTS: Sinus rhythm with 1st degree AV block Nonspecific ST and T wave abnormality Abnormal ECG Compared to ECG 08/30/2022 10:21:02 First degree AV block now present Sinus bradycardia no longer present ST (T wave) deviation still present Electronically Signed On 11-20-22 15:04:55 CDT by Paras Vidales
[2022-11-20] MEDS ORDERED: GABAPENTIN 300 MG CAP PO SCH ×3 (17:00→21:00)
--- NOTE | 2022-11-20 18:30 | CON ---
Date of Consultation: 11/20/2022 Reason For Consultation: Shortness of breath. History Of Present Illness: A 77-year-old female, history of hypertension, diabetes, mitral valve re gurgitation, status post recent mitral valve replacement and pacemaker implantation. She has been ru nning low-grade fever and she became short of breath on minimal exertion, even at rest. Evaluated by the emergency room. She was fluid overloaded and responded very well to Lasix and she is having dry cough. Past Medical History: As outlined above in the HPI. Medications: Refer to reconciliation sheet for detailed list. Allergies: PENICILLIN. Family History: No premature coronary artery disease or cancer. Social History: She does not smoke or drink. Does not use any drugs. Review of Systems: All systems reviewed and they were negative except what mentioned in HPI. Physical Examination: Vital Signs: Reviewed. Head and Neck: Pupils are equal, reactive to light. Intact eye movements. No JVD. No cervical lym phadenopathy. Neck is supple. Thyroid is not enlarged. Lungs: Decreased breathing sounds bilaterally. No accessory muscle use or muscle retraction. Heart: Regular rate and rhythm. No extra sounds. Abdomen: Soft, nontender. Bowel sounds positive. No organomegaly. No masses or hernia. No rigidi ty or rebound. Extremities: No edema, clubbing, or cyanosis. Intact pulses. Skin: No rash. Neurologic: Alert, awake, oriented x3. No acute focal deficits appreciated. Investigations: CTA of the lungs; no PE, but there are moderate bilateral pleural effusions with ate lectasis and chest x-ray showed pulmonary edema with small effusion. Her BUN is 10, creatinine 0.71. Cardiac enzymes are negative and hemoglobin is 9.0. Assessment And Recommendations: 1.Acute on chronic diastolic heart failure exacerbation. Responding very well to Lasix. Carefully monitor her BUN, creatinine, and electrolytes. 2.Low-grade fever with a possible pneumonia. She has a cough, is on wide-spectrum antibiotics to be continued pending the cultures and we will obtain an echocardiogram tomorrow. 3.Mitral valve regurgitation, status post recent replacement. Evaluate with echocardiogram tomorrow as outlined above. SR/MODL Voice ID: [id number] Report ID: [id number]
[2022-11-20] MEDS: DOCUSATE NA 100 MG CAP PO SCH (20:28)
[2022-11-20] MEDS: MESALAMINE 0.375 GM PO SCH (21:00)
[2022-11-20] MEDS ORDERED: MELATONIN 5 MG TABLET PO SCH ×2 (21:00)
[2022-11-20] MEDS ORDERED: ATORVASTATIN 20 MG TAB PO SCH (21:00)
[2022-11-20] MEDS: GABAPENTIN 300 MG CAP PO SCH (21:46)
[2022-11-21 04:22] LABS: Magnesium 1.9 mg/dL (1.6-2.4); Potassium 3.6 mEq/L (3.5-5.1)
[2022-11-21 05:04] LABS: Absolute Lymphocytes (CBC) 1.3 K/uL (0.7-4.9); Hematocrit 27.4 % (36.0-45.0); Lymphocytes % 16.9 % (15.3-44.8); MCV 80.8 fL (80-100); MPV 8.4 fL (7.6-11.3); Platelets 334 thou/uL (152-406); RBC Red Blood Cell Count 3.39 M/uL (3.86-4.86)
[2022-11-21] MEDS ORDERED: POTASSIUM 25 MEQ EFFERV TAB PO ONE (06:00)
[2022-11-21] MEDS: CEFTRIAXONE 1,000 MG in NA CHLORIDE 0.9% 50 ML IVPB SCH (08:50)
[2022-11-21] MEDS: PANTOPRAZOLE 40MG TABLET PO SCH (08:51)
[2022-11-21] MEDS: AMLODIPINE 5 MG TAB PO SCH (08:51)
[2022-11-21] MEDS: FUROSEMIDE 40 MG/4 ML VIAL IV SCH (08:52)
[2022-11-21] MEDS: SPIRONOLACTONE 25 MG TABLET PO SCH (08:52)
[2022-11-21] MEDS: CAPTOPRIL 25 MG TABLET PO SCH (08:53)
[2022-11-21] MEDS: ASPIRIN 81 MG CHEWABLE TABLET PO SCH (08:53)
[2022-11-21] MEDS: MESALAMINE 0.375 GM PO SCH (08:54)
[2022-11-21] MEDS: DOCUSATE NA 100 MG CAP PO SCH (08:54)
[2022-11-21] MEDS: METOPROLOL TAR 50 MG TAB PO SCH (08:54)
--- NOTE | 2022-11-21 13:23 | ECHO ---
HEIGHT: 5 ft 9 in WEIGHT: 152 lb 4.8 oz DATE OF STUDY: 11/21/[address]: Eloisa Luong CLAIM BENEFIT SPECIALIST-BC 2-DIMENSIONAL: YES M.MODE: YES DOPPLER: YES COLOR FLOW: YES TDS: PORTABLE: YES DEFINITY: BUBBLE STUDY: DIAGNOSIS: HISTORY OF HEART SURGERY/ PERICARDIAL EFFUSION CARDIAC HISTORY: CATHERIZATION: SURGERY: YES PROSTHETIC VALVE: MITRAL VALVE PROLAPSE PACEMAKER: YES MEASUREMENTS (cm) DIASTOLIC (NORMALS) SYSTOLIC (NORMALS) IVSd 0.9 (0.6-1.2) LA Diam (1.9-4.0) LVEF 59% LVIDd 4.7 (3.5-5.7) LVIDs 3.2 (2.0-3.5) %FS 31% LVPWd 1.0 (0.6-1.2) Ao Diam 2.7 (2.0-3.7) 2 DIMENSIONAL ASSESSMENT: RIGHT ATRIUM: NORMAL LEFT ATRIUM: NORMAL RIGHT VENTRICLE: NORMAL LEFT VENTRICLE: NORMAL TRICUSPID VALVE: MILD TRICUSPID REGURGITATION MITRAL VALVE: BIOPROSTHESIS IS PRESENT PULMONIC VALVE: NORMAL AORTIC VALVE: NORMAL PERICARDIAL EFFUSION: NONE AORTIC ROOT: NORMAL LEFT VENTRICULAR WALL MOTION: NORMAL DOPPLER/COLOR FLOW: MILD TRICUSPID REGURGITATION COMMENTS: 1. NORMAL LEFT VENTRICULAR EJECTION FRACTION 55-60% WITH NORMAL WALL MOTION 2. MODERATE DIASTOLIC DYSFUNCTION 3. MITRAL VALVE BIOPROSTHESIS IS PRESENT AND FUNCTIONING WELL 4. MILD TRICUSPID REGURGITATION TECHNOLOGIST: KARENA VIEYRA
--- NOTE | 2022-11-21 15:08 | P.DS ---
Admission Date: 11/19/22 Discharge Date: 11/21/22 Disposition: ROUTINE DISCHARGE Discharge Condition: FAIR Reason for Admission: Chest pain Brief History of Present Illness: 77-year-old female with a past medical history of borderline diabetes, hypertension, recent permanent pacemaker, MVR, ablation and cardiac rehab presents to the emergency room with shortness of breath and fever. She reported fever started 2 or 3 days ago, intermittent, associated shortness of breath. She reported recently completing cardiac rehab. She reported pleuritic chest pain that is constant. ER evaluation BP 151 / 92; Pulse 70; Resp 18; Temp 100; Pulse Ox 100% on R/A; Weight 75.75 kg; Height ll1 5 ft. 9 in. ; Pain 4/10; EKGate is 93 beats/min. Rhythm is regular. [place] interval is prolonged. Q waves are Present in leads V1, V5, V6. Clinical impression: NSR w/ Non-specific ST/T Changes. Laboratory evaluation leukocytosis WBCs 13.40, neutrophils 84.7, left shift, anemia 10.3, 31.8 D-dimer elevated at 4410, mild hyponatremia at 135, hypokalemia 2.8, acute kidney injury BUN 12 creatinine 1.03, BNP 1777, UA 25 leukoesterase 2+ glucose. CT of the chest abdomen IMPRESSION: Negative for pulmonary embolism. Moderate bilateral pleural effusions with likely underlying atelectasis. The source of the effusions may be due to either edema and/or recent sternotomy. Small pericardial effusion. Retrosternal fluid consistent with recent sternotomy Patient was hospitalized for further management. Hospital Course: Diagnosis Acute on chronic diastolic heart failure Acute respiratory failure with hypoxia Status post ablation and permanent placement Mitral valve replacement Bilateral pleural effusion Pericardial effusion Acute kidney injury Leukocytosis Hypokalemia Hypertension Anemia Hyperlipidemia Patient admitted to the medical floor and the following medical problems address ed: Acute on chronic diastolic heart failure Recent permanent pacemaker, MVR, ablation Bilateral pleural effusion Pericardial effusion Pleural effusion and pericardial effusion likely sequela of recent cardiothoracic surgery. Patient treated with IV Lasix. Patient was hypoxic briefly and required oxygen. Resumed other home medications. Shortness of breath improved with treatment. She is currently stable on room air. Echocardiogram done showed normal functioning mitral valve prosthesis. Noted patient is not anticoagulated. Leukocytosis Subjective fever at home. No significant fever recorded in the hospital Patient treated briefly with antibiotics. Blood cultures showed no growth. Transient leukocytosis. Acute kidney injury Resolved Hypokalemia Corrected. Anemia Stable Hypertension Hyperlipidemia Prediabetes Continued home medications, Vital Signs/Physical Exam: Temp Pulse Resp BP Pulse Ox 97.7 F 75 16 119/77 95 11/21/22 12:00 11/21/22 12:00 11/21/22 12:00 11/21/22 12:00 11/21/22 12:00 Laboratory Data at Discharge: WBC 7.80 thou/uL (4.3-10.9) 11/21/22 03:28 Hgb 9.3 g/dL (12.0-15.0) L 11/21/22 03:28 Hct 27.4 % (36.0-45.0) L 11/21/22 03:28 Plt Count 334 thou/uL (152-406) 11/21/22 03:28 PT 12.2 SECONDS (9.5-12.5) 11/19/22 15:42 INR 1.11 11/19/22 15:42 Sodium 136 mEq/L (136-145) 11/21/22 03:28 Potassium 3.6 mEq/L (3.5-5.1) 11/21/22 03:28 BUN 13 mg/dL (7-18) 11/21/22 03:28 Creatinine 0.74 mg/dL (0.55-1.02) 11/21/22 03:28 Glucose 120 mg/dL (74-106) H 11/21/22 03:28 Phosphorus 3.1 mg/dL (2.5-4.9) 11/20/22 05:38 Magnesium 1.9 mg/dL (1.6-2.4) 11/21/22 03:28 Total Bilirubin 0.4 mg/dL (0.2-1.0) 11/19/22 15:42 AST 8 U/L (15-37) L 11/19/22 15:42 ALT 15 U/L (13-56) 11/19/22 15:42 Alkaline Phosphatase 118 U/L (45-117) H 11/19/22 15:42 Home Medications: Amlodipine [Norvasc*] 5 mg PO DAILY 12/15/14 Metoprolol Tartrate [Lopressor] 50 mg PO BID 12/15/14 Aspirin Chewable [Aspirin Chewable*] 81 mg PO DAILY 11/19/22 Atorvastatin Calcium [Lipitor*] 20 mg PO BEDTIME 11/19/22 Captopril [Capoten] 12.5 mg PO BID 11/19/22 Docusate [Colace Cap*] 100 mg PO DAILY 11/19/22 Gabapentin 600 mg PO BEDTIME 11/19/22 Gabapentin 600 mg PO DAILY AT SUPPER 11/19/22 Melatonin 10 mg PO BEDTIME 11/19/22 Mesalamine [Mesalamine ER] 2 cap PO BID 11/19/22 Pantoprazole [Protonix Tab*] 40 mg PO DAILY 11/19/22 Furosemide [Lasix] 40 mg PO DAILY #30 tab 11/21/22 Spironolactone [Aldactone*] 25 mg PO DAILY #30 tab 11/21/22 levoFLOXacin [Levaquin] 750 mg PO DAILY #5 tab 11/21/22 New Medications: Spironolactone [Aldactone*] 25 mg PO DAILY #30 tab Furosemide [Lasix] 40 mg PO DAILY #30 tab levoFLOXacin [Levaquin] 750 mg PO DAILY #5 tab Diet: AHA Activity: Ad delfina Followup: Paras Vidales MD [ACTIVE - CAN ADMIT] - Allen Salazar MD [Primary Care Provider] - 1-2 Weeks Time spent managing pt's care (in minutes): 32
[2022-11-21 15:52] VITALS: BP 134/69; TEMP 97.6
[2022-11-21 16:08] VITALS: O2SAT 94
--- NOTE | 2022-11-21 18:06 | PN ---
Date of Progress Note: 11/21/2022 Subjective: Seen by bedside. No further shortness of breath. She feels well. Review of Systems: No chest pain, shortness of breath, orthopnea, cough. No nausea, vomiting, or diarrhea. All other s ystems reviewed, they were negative. Physical Examination: Vital Signs: Reviewed. Head and Neck: Pupils are equal, reactive to light. Intact eye movements. No JVD. No cervical lym phadenopathy. Neck is supple. Thyroid is not enlarged. Lungs: Clear to auscultation bilaterally. No rhonchi, wheezing, or crackles. No accessory muscle u se. Heart: Regular rate and rhythm. No extra sounds. Abdomen: Soft, nontender. Bowel sounds positive. No organomegaly. No masses or hernia. No rigidi ty or rebound. Extremities: No edema, clubbing, or cyanosis. Intact pulses. Skin: No rash. Neurologic: Alert, awake, oriented x3. No acute focal deficits appreciated. Investigations: BUN 13, creatinine 0.74. Hemoglobin is 9.3. Assessment/recommendations: 1.Acute on chronic diastolic heart failure exacerbation, responded very well to treatment. From Car diology standpoint, she can be released to send her home on oral Lasix at 40 mg once daily and follow up with me in the office in 1 week. 2.Mitral valve regurgitation, status post mitral valve replacement, recently on echo. The bioprosthesis is functioning very well. She is encouraged to continue rehab a s an outpatient. SR/MODL Voice ID: [id number] Report ID: [id number]
== END 2022-11-21 16:10 | disposition home or self-care (01) | DRG 291 ==
LOC: ER 15:14 → ERHOLD 19:10 → 2ND 19:48
PROVIDERS: ADMIT Internal Medicine; ATTEND Internal Medicine
DX: I11.0 Hypertensive heart disease with heart failure (principal); I50.33 Acute on chronic diastolic (congestive) heart failure; J96.01 Acute respiratory failure with hypoxia; I31.39 Other pericardial effusion (noninflammatory); E87.1 Hypo-osmolality and hyponatremia; N17.9 Acute kidney failure, unspecified; E87.6 Hypokalemia; I34.0 Nonrheumatic mitral (valve) insufficiency; E78.5 Hyperlipidemia, unspecified; D64.9 Anemia, unspecified; D72.829 Elevated white blood cell count, unspecified; R73.03 Prediabetes; Z95.0 Presence of cardiac pacemaker; Z95.2 Presence of prosthetic heart valve; Z88.0 Allergy status to penicillin; Z79.82 Long term (current) use of aspirin; Z90.49 Acquired absence of other specified parts of digestive tract; Z79.899 Other long term (current) drug therapy; Z20.822 Contact with and (suspected) exposure to COVID-19
CPT/HCPCS: 36415; 71045; 71275; 80048; 80076; 81001; 82550; 83605; 83735; 83880; 84100; 84484; 85025; 85379; 85610; 86850; 86900; 86901; 87040; 87635; 93005; 93306; 94760; 99285; J0696; J1940; J3475; J3480; J7030; J7050; Q9967

== ENCOUNTER 2024-07-19 09:45 | Emergency (ER) | payer OTHER, MEDICARE ==
[2024-07-19] MEDS ORDERED: NA CHLORIDE 0.9% 1,000 ML ONE (10:06)
[2024-07-19] MEDS ORDERED: ONDANSETRON 4 MG/2 ML VIAL ONE (10:06)
[2024-07-19 11:19] LABS: Absolute Basophils 0.1 K/uL (0-0.5); Absolute Eosinophils 0.2 K/uL (0-0.5); Absolute Lymphocytes (CBC) 0.8 K/uL (0.7-4.9); Absolute Monocytes 0.4 K/uL (0.1-1.3); Absolute Neutrophil 11.1 K/uL (1.8-8.0); Basophils % 0.7 % (0-1.3); Eosinophils % 1.2 % (0-4.4); Hematocrit 39.1 % (36.0-45.0); Hemoglobin 13.1 g/dL (12.0-15.0); Lymphocytes % 6.1 % (15.3-44.8); MCH 28.4 pg (27.0-35.0); MCHC 33.6 g/dL (32.0-36.0); MCV 84.7 fL (80-100); MPV 8.7 fL (7.6-11.3); Monocytes % 3.4 % (3.3-12.3); Neutrophils % 88.6 % (41.7-73.7); Nucleated Red Blood Cells % 0.2 % (0-0); Platelets 206 thou/uL (152-406); RBC Red Blood Cell Count 4.61 M/uL (3.86-4.86); Red Cell Distribution Width 15.3 % (12.1-15.2)
[2024-07-19 11:35] LABS: ALT/SGPT 18 U/L (13-56); Albumin 3.2 g/dL (3.4-5.0); Albumin/Globulin Ratio 0.9 (1.1-1.8); Alkaline Phosphatase 141 U/L (45-117); Anion Gap 7.2 mEq/L (5.0-15.0); BUN Blood Urea Nitrogen 23 mg/dL (7-18); Bicarbonate 32 mEq/L (21-32); Bilirubin Total 0.5 mg/dL (0.2-1.0); Globulin 3.6 g/dL (2.3-3.5); Glomerular Filtration Rate 41 ml/min (=/>90); Glucose Level 208 mg/dL (74-106); Lipase 21 U/L (13-75); Potassium 3.2 mEq/L (3.5-5.1); Protein, Total 6.8 g/dL (6.4-8.2); Sodium Level 138 mEq/L (136-145)
[2024-07-19 11:38] LABS: AST/SGOT < 10 U/L (15-37)
--- NOTE | 2024-07-19 12:04 | RAD REPORT ---
EXAMINATION: CT ABDOMEN AND PELVIS WITH CONTRAST CLINICAL INDICATION: Abdominal pain TECHNIQUE: CT abdomen and pelvis was performed, after the administration of 100 cc Isovue-300.. Sagit anjel and coronal reconstructions were obtained. One or more of the following dose reduction techniques were used: Automated exposure control, adjustment of the mA and kV according to patient si ze, and iterative reconstruction. Unless otherwise specified, incidental findings do not require dedicated imaging follow-up. [id number]. Oral contrast was not given which limits evaluation of bowel and appendix. COMPARISON: .2023 FINDINGS: Cholecystectomy. Prominence of the biliary tree presumably physiologic. Liver, spleen pancreas, adrenals and left kidney unremarkable. Small right renal cyst. The wall of the proximal descending colon is moderately thickened. The wall of portions of the distal descending and transverse colon mildly thickened. Pneumatosis intestinalis is not present. Hysterectomy. Diverticula stem from colon without visualization of diverticulitis. : IMPRESSION: Moderate colitis proximal descending colon.
[2024-07-19 12:13] LABS: Blood Morphology Comment NOT SEEN (NOT SEEN); Platelet Estimate ADEQ; White Blood Cell Scan OK (OK)
--- NOTE | 2024-07-19 12:26 | ER ---
Nurse's Notes [facility] Name: Sweetie Rivera Age: 78 yrs Sex: Female : 1945 Arrival Date: 07/19/2024 Time: 09:45 Bed 2 Private MD: Diagnosis: Colitis Presentation: 07/19 09:56 Chief complaint: Patient states: she started having nausea vomiting and diarrhea this ap3 morning. patient states she vomited twice and has multiple diarrhea episodes. patient is also complaining of left lower abdominal cramping that she currently rates a 4/10 on the pain scale. Coronavirus screen: At this time, the client does not indicate any symptoms associated with coronavirus-19. Ebola Screen: No symptoms or risks identified at this time. Initial Sepsis Screen: Does the patient meet any 2 criteria? No. Patient's initial sepsis screen is negative. Does the patient have a suspected source of infection? No. Patient's initial sepsis screen is negative. Risk Assessment: Do you want to hurt yourself or someone else? Patient reports no desire to harm self or others. Onset of symptoms was July 19, 2024. 09:56 Method Of Arrival: EMS: [facility] ap3 09:56 Acuity: PIETER 3 ap3 09:56 Care prior to arrival: Medication(s) given: zofran IM. ap3 Triage Assessment: 09:58 General: Appears in no apparent distress. Behavior is calm, cooperative, appropriate ap3 for age. Pain: Complains of pain in left lower quadrant Pain currently is 4 out of 10 on a pain scale. Quality of pain is described as crampy, Pain began gradually. Neuro: Level of Consciousness is awake, alert, obeys commands, Oriented to person, place, time, situation, Appropriate for age. Cardiovascular: Patient's skin is warm and dry. Respiratory: Airway is patent Respiratory effort is even, unlabored, Respiratory pattern is regular, symmetrical. GI: Reports lower abdominal pain, diarrhea, nausea, vomiting. Historical: - Allergies: :57 PENICILLINS; ap3 - PMHx: :57 Borderline Diabetes; Hypertensive disorder; mitral valve leak; ap3 - PSHx: :57 Carotid endarterectomy; Mitral valve replacement; pacemaker-September 2022 (Mitral valve ap3 replacement); - Immunization history:: Client reports receiving the 2nd dose of the Covid vaccine, Flu vaccine is up to date. - Infectious Disease History:: Denies. - Social history:: Smoking status: Patient denies any tobacco usage or history of. Screenin:59 Abuse screen: Denies threats or abuse. Nutritional screening: No deficits noted. ap3 Tuberculosis screening: No symptoms or risk factors identified. 12:00 [facility] ED Fall Risk Assessment (Adult) History of falling in the last 3 months, jl7 including since admission No falls in past 3 months (0 pts) Confusion or Disorientation No (0 pts) Intoxicated or Sedated No (0 pts) Impaired Gait No (0 pts) Mobility Assist Device Used No (0 pt) Altered Elimination No (0 pt) Score/Fall Risk Level 0 - 2 = Low Risk Oriented to surroundings, Maintained a safe environment. Assessment: 11:16 General: Appears in no apparent distress. Behavior is calm, cooperative. Pain: Denies hb pain. Neuro: Level of Consciousness is awake, alert, obeys commands, Oriented to person, place, time, situation. Cardiovascular: Patient's skin is warm and dry. Respiratory: Respiratory effort is even, unlabored, Respiratory pattern is regular, symmetrical. GI: Reports diarrhea, nausea, vomiting. : No signs and/or symptoms were reported regarding the genitourinary system. EENT: No signs and/or symptoms were reported regarding the EENT system. Derm: Skin is pink, warm \T\ dry. Musculoskeletal: No signs and/or symptoms reported regarding the musculoskeletal system. Vital Signs: 09:56 BP 123 / 78; Pulse 71; Resp 17; Temp 97.5(O); Pulse Ox 96% on R/A; Weight 72.57 kg; ap3 Height 5 ft. 9 in. ; Pain 4/10; 10:34 BP 124 / 65; Pulse 62; Resp 12; Pulse Ox 96% ; jl7 12:30 BP 142 / 74; Pulse 60; Resp 15; Pulse Ox 99% ; jl7 09:56 Body Mass Index 23.63 (72.57 kg, 175.26 cm) ap3 09:56 Pain Scale: Adult ap3 ED Course: 09:52 Patient arrived in ED. eb 09:53 Aidan Prasad MD is Attending Physician. rt 09:53 Helen Alvarado RN is Primary Nurse. jl7 09:57 Triage completed. ap3 09:59 Patient has correct armband on for positive identification. Placed in gown. Bed in low ap3 position. Call light in reach. Side rails up X2. Client placed on continuous cardiac and pulse oximetry monitoring. NIBP monitoring applied. summons server on. Pulse ox on. NIBP on. Door closed. Noise minimized. Warm blanket given. 09:59 Arm band placed on left wrist. ap3 10:20 Missed attempt(s): 22 gauge in right forearm. Bleeding controlled, band aid applied, jl7 catheter tip intact. 10:25 Missed attempt(s): 22 gauge in left forearm. Bleeding controlled, band aid applied, jl7 catheter tip intact. 10:30 Missed attempt(s): 22 gauge in left forearm. Bleeding controlled, band aid applied, jl7 catheter tip intact. 11:15 Accessed peripheral vein via ultrasound, utilizing dynamic ultrasound technique using hb per hospital protocol. Clean \T\ dry. Dressing intact. Good blood return. Flushes easily. 20G LAC. 11:16 CBC with Diff Sent. hb 11:16 CMP Sent. hb 11:16 Lipase Sent. hb 11:54 CT Abd/Pelvis - IV Contrast Only In Process Unspecified. EDMS 12:00 Provided Education on: use of call marcano. jl7 12:25 Paris Block MD is Referral Physician. rt 12:55 No provider procedures requiring assistance completed. IV discontinued, intact, jl7 bleeding controlled, No redness/swelling at site. Pressure dressing applied. Administered Medications: 11:16 Drug: Ondansetron IVP 4 mg IVP once; over 2 minutes Route: IVP; Site: left antecubital; hb 11:30 Follow up: Response: No adverse reaction; Nausea is decreased jl7 11:16 Drug: NS 0.9% IV 1000 ml IV at 1 bolus Per protocol; to be given as a bolus over 60 hb minutes Route: IV; Rate: 1 bolus; Site: left antecubital; 12:15 Follow up: Response: No adverse reaction; IV Status: Completed infusion; IV Intake: jl7 1000ml Medication: 12:55 VIS not applicable for this client. jl7 Intake: 12:15 IV: 1000ml; Total: 1000ml. jl7 Outcome: 12:25 Discharge ordered by . rt 12:55 Discharged to home ambulatory, jl7 12:55 Condition: stable 12:55 Discharge instructions given to patient, Instructed on discharge instructions, follow up and referral plans. medication usage, Demonstrated understanding of instructions, follow-up care, medications, Prescriptions given X 3, 12:56 Patient left the ED. jl7 Signatures: Dispatcher [employer] EDSylvie Anaya RN RN hb Leal, Jahala, RN RN jl7 Sharyn Salgado RN RN ap3 Botello, Elizabeth eb [place], Ryan, MD MD rt
--- NOTE | 2024-07-19 12:26 | EDPHYS ---
Physician Documentation [facility] Name: Sweetie Rivera Age: 78 yrs Sex: Female : 1945 Arrival Date: 07/19/2024 Time: 09:45 Bed 2 Private MD: ED Physician Aidan Prasad HPI: 07/19 13:28 This 78 yrs old Female presents to ER via EMS with complaints of rt Nausea/Vomiting/Diarrhea. 13:28 Patient presents to the ED with nausea, vomiting, diarrhea starting this morning. rt Patient denies hematemesis, hematochezia. Denies other acute complaints at this time, symptoms are moderate in severity, no other aggravating or alleviating factors.. Historical: - Allergies: :57 PENICILLINS; ap3 - PMHx: :57 Borderline Diabetes; Hypertensive disorder; mitral valve leak; ap3 - PSHx: :57 Carotid endarterectomy; Mitral valve replacement; pacemaker-September 2022 (Mitral valve ap3 replacement); - Immunization history:: Client reports receiving the 2nd dose of the Covid vaccine, Flu vaccine is up to date. - Infectious Disease History:: Denies. - Social history:: Smoking status: Patient denies any tobacco usage or history of. ROS: 13:29 Constitutional: Negative for fever, chills, and weight loss, Cardiovascular: Negative rt for chest pain, palpitations, and edema, Respiratory: Negative for shortness of breath, cough, wheezing, and pleuritic chest pain, MS/Extremity: Negative for injury and deformity, Skin: Negative for injury, rash, and discoloration, Neuro: Negative for headache, weakness, numbness, tingling, and seizure, 13:29 Abdomen/GI: Positive for nausea, vomiting, and diarrhea, Negative for abdominal pain, Exam: 13:29 Constitutional: This is a well developed, well nourished patient who is awake, alert, rt and in no acute distress. Head/Face: Normocephalic, atraumatic. Chest/axilla: Normal chest wall appearance and motion. Nontender with no deformity. No lesions are appreciated. Cardiovascular: Regular rate and rhythm with a normal S1 and S2. No gallops, murmurs, or rubs. Normal PMI, no JVD. No pulse deficits. Respiratory: Lungs have equal breath sounds bilaterally, clear to auscultation and percussion. No rales, rhonchi or wheezes noted. No increased work of breathing, no retractions or nasal flaring. Skin: Warm, dry with normal turgor. Normal color with no rashes, no lesions, and no evidence of cellulitis. MS/ Extremity: Pulses equal, no cyanosis. Neurovascular intact. Full, normal range of motion. Neuro: Awake and alert, GCS 15, oriented to person, place, time, and situation. Cranial nerves II-XII grossly intact. Motor strength 5/5 in all extremities. Sensory grossly intact. Cerebellar exam normal. Normal gait. 13:29 Abdomen/GI: Minimal tenderness diffusely without rebound, guarding, distention, Vital Signs: 09:56 BP 123 / 78; Pulse 71; Resp 17; Temp 97.5(O); Pulse Ox 96% on R/A; Weight 72.57 kg; ap3 Height 5 ft. 9 in. ; Pain 4/10; 10:34 BP 124 / 65; Pulse 62; Resp 12; Pulse Ox 96% ; jl7 12:30 BP 142 / 74; Pulse 60; Resp 15; Pulse Ox 99% ; jl7 09:56 Body Mass Index 23.63 (72.57 kg, 175.26 cm) ap3 09:56 Pain Scale: Adult ap3 MDM: 09:54 Medical Screening Exam initiated rt 13:29 Differential diagnosis: Colitis, bowel obstruction, gastroenteritis. Data reviewed: rt vital signs, nurses notes, lab test result(s), radiologic studies. Consideration of Admission/Observation Escalation of care including admission/observation considered. Symptoms significantly proving with Zofran, fluids in the emergency department. Patient has stable vital signs, unremarkable labs. CT scan does show colitis, believe that this is amenable to trial of outpatient management. Patient is agreeable with this plan, will follow-up with GI as an outpatient. Strict return precautions were discussed with patient who verbalizes understanding.. I considered the following discharge prescriptions or medication management in the emergency department Medications were administered in the Emergency Department. See MAR. Independent interpretation of the following test(s) in the Emergency Department CT Scan: My interpretation is No bowel obstruction seen on my interpretation of CT scan images. Care significantly affected by the following chronic conditions: Diabetes, Hypertension. Counseling: I had a detailed discussion with the patient and/or guardian regarding the historical points, exam findings, and any diagnostic results supporting the discharge/admit diagnosis, lab results, radiology results, the need for outpatient follow up, to return to the emergency department if symptoms worsen or persist or if there are any questions or concerns that arise at home. Response to treatment: the patient's symptoms have markedly improved after treatment. 07/19 10:02 Order name: CBC with Diff; Complete Time: 12:16 rt 07/19 10:02 Order name: CMP; Complete Time: 12:09 rt 07/19 10:02 Order name: Lipase; Complete Time: 12:09 rt 07/19 11:23 Order name: CBC Smear Scan; Complete Time: 12:16 EDMS 07/19 10:02 Order name: CT Abd/Pelvis - IV Contrast Only; Complete Time: 12:09 rt 07/19 10:02 Order name: IV Saline Lock; Complete Time: 11:15 rt 07/19 10:02 Order name: Labs collected and sent; Complete Time: 11:16 rt Administered Medications: 11:16 Drug: Ondansetron IVP 4 mg IVP once; over 2 minutes Route: IVP; Site: left antecubital; hb 11:30 Follow up: Response: No adverse reaction; Nausea is decreased jl7 11:16 Drug: NS 0.9% IV 1000 ml IV at 1 bolus Per protocol; to be given as a bolus over 60 hb minutes Route: IV; Rate: 1 bolus; Site: left antecubital; 12:15 Follow up: Response: No adverse reaction; IV Status: Completed infusion; IV Intake: jl7 1000ml Disposition Summary: 07/19/24 12:25 Discharge Ordered Notes: Location: Home rt Problem: new rt Symptoms: have improved rt Condition: Stable rt Diagnosis - Colitis rt Followup: rt - With: Paris Block MD - When: 5 - 6 days - Reason: Discharge Instructions: - Discharge Summary Sheet rt - Colitis rt Forms: - Medication Reconciliation Form rt - Antibiotic Education rt - Prescription Opioid Use rt - Patient Portal Instructions rt - Leadership Thank You Letter rt Prescriptions: - ondansetron 4 mg Oral Tablet,disintegrating - take 1 tablet ORAL route every 6 hours; 18 tablet; Refills: 0, Product rt Selection Permitted - Flagyl 500 mg Oral tablet - take 1 tablet ORAL route every 8 hours for 7 days; 21 tablet; Refills: 0, rt Product Selection Permitted - Cipro 500 mg Oral Tablet - take 1 tablet ORAL route every 12 hours for 7 days; 14 tablet; Refills: 0, rt Product Selection Permitted Signatures: Dispatcher [employer] Sylvie [place]ellin, RN RN Sharyn Sy RN RN ap3 Aidan Prasad MD MD rt Helen Alvarado RN jl7
[2024-07-19 13:03] VITALS: TEMP 97.5
[2024-07-19 13:07] VITALS: BP 142/74; O2SAT 99
== END 2024-07-19 12:56 | disposition home or self-care (01) ==
LOC: ER 09:45
DX: K52.9 Noninfective gastroenteritis and colitis, unspecified (principal); Z95.0 Presence of cardiac pacemaker
CPT/HCPCS: 96361; 85025; 36415; 83690; 80053; 74177; 96374; 99285; Q9967; J2405; J7030

== ENCOUNTER 2024-12-12 11:28 | Emergency (ER) | payer OTHER, MEDICARE ==
[2024-12-12 13:13] LABS: PT Prothrombin Time 11.2 SECONDS (10-13.0); Protime INR 0.99
[2024-12-12 13:18] LABS: Absolute Lymphocytes (CBC) 0.8 K/uL (0.7-4.9); Hematocrit 31.1 % (36.0-45.0); Hemoglobin 10.6 g/dL (12.0-15.0); MCH 29.1 pg (27.0-35.0); MCHC 34.2 g/dL (32.0-36.0); MCV 85.1 fL (80-100); MPV 8.1 fL (7.6-11.3); Nucleated RBC Absolute Count 0.0 (0-0); Nucleated Red Blood Cells % 0.1 % (0-0); RBC Red Blood Cell Count 3.66 M/uL (3.86-4.86); White Blood Count 7.40 thou/uL (4.3-10.9)
[2024-12-12 13:28] LABS: ALT/SGPT 75 U/L (13-56); AST/SGOT 52 U/L (15-37); Albumin 2.8 g/dL (3.4-5.0); Albumin/Globulin Ratio 0.7 (1.1-1.8); Alkaline Phosphatase 113 U/L (45-117); Anion Gap 6.8 mEq/L (5.0-15.0); BUN Blood Urea Nitrogen 5 mg/dL (7-18); Globulin 3.8 g/dL (2.3-3.5); Glucose Level 67 mg/dL (74-106); Magnesium 1.9 mg/dL (1.6-2.4); NT PRO-BNP 6056 pg/mL (<450); Potassium 3.8 mEq/L (3.5-5.1); Troponin High Sensitivity 21.8 pg/mL (<58.9)
[2024-12-12 13:30] LABS: Bilirubin Indirect, Calculated 0.1 mg/dL (0.2-0.8)
[2024-12-12] MEDS ORDERED: FUROSEMIDE 40 MG/4 ML VIAL ONE (14:00)
--- NOTE | 2024-12-12 14:33 | RAD REPORT ---
EXAM: Chest Single View HISTORY: 79 years Female SOB COMPARISON: 12/08/2022 FINDINGS: LUNGS/PLEURA: Coarsened pulmonary interstitium. No consolidative airspace disease. Emphysema. CARDIAC/MEDIASTINUM: The cardiac silhouette is within normal limits. Valve prosthesis. UPPER ABDOMEN: No significant abnormality. BONES: Sternotomy. No acute abnormality. LINES/TUBES/OTHER: Pacemaker present. IMPRESSION: Chronic changes without gross acute process.
--- NOTE | 2024-12-12 17:18 | ER ---
Nurse's Notes [facility] Name: Sweetie Rivera Age: 79 yrs Sex: Female : 1945 Arrival Date: 12/12/2024 Time: 11:28 Bed 5 Private MD: Diagnosis: Acute systolic (congestive) heart failure;Acute pulmonary edema Presentation: 12/12 11:59 Chief complaint: Patient states: bilateral leg swelling that was noticed yesterday with ss mild shortness of breath. Pt reports she was discharged 2 days ago after she had her sigmoid colon removed at [facility] and states she called her surgeon today who told her to go to the nearest ER for further evaluation. Coronavirus screen: Client denies travel out of the [place] in the last 14 days. Ebola Screen: Patient denies exposure to infectious person. Patient denies travel to an Ebola-affected area in the 21 days before illness onset. Initial Sepsis Screen: Does the patient meet any 2 criteria? No. Patient's initial sepsis screen is negative. Does the patient have a suspected source of infection? No. Patient's initial sepsis screen is negative. Risk Assessment: Do you want to hurt yourself or someone else? Patient reports no desire to harm self or others. Onset of symptoms was December 11, 2024. 11:59 Method Of Arrival: Ambulatory 11:59 Acuity: PIETER 3 ss Triage Assessment: 14:52 Respiratory: the patient has mild shortness of breath. mb9 Historical: - Allergies: 12:02 PENICILLINS; ss - PMHx: 12:02 Borderline Diabetes; Hypertensive disorder; mitral valve leak; ss - PSHx: 12:02 Carotid endarterectomy; Mitral valve replacement; pacemaker-September 2022 (v); Sigmoid ss colectomy (pacemaker-September 2022); - Immunization history:: Adult Immunizations up to date. - Infectious Disease History:: Denies. - Social history:: Smoking status: Patient denies any tobacco usage or history of. Screenin:51 [facility] ED Fall Risk Assessment (Adult) History of falling in the last 3 months, mb9 including since admission No falls in past 3 months (0 pts) Confusion or Disorientation No (0 pts) Intoxicated or Sedated No (0 pts) Impaired Gait No (0 pts) Mobility Assist Device Used No (0 pt) Altered Elimination No (0 pt) Score/Fall Risk Level 0 - 2 = Low Risk Oriented to surroundings, Maintained a safe environment, Educated pt \T\ family on fall prevention, incl call for assistance when getting out of bed. Abuse screen: Denies threats or abuse. Nutritional screening: No deficits noted. Tuberculosis screening: No symptoms or risk factors identified. Assessment: 14:49 General: Appears in no apparent distress. Behavior is calm, cooperative. Pain: Denies mb9 pain. Neuro: Contreras Agitation-Sedation Scale (RASS): 0 - Alert and Calm Level of Consciousness is awake, alert, obeys commands, Oriented to person, place, time, situation, Appropriate for age. Cardiovascular: Heart tones S1 S2 present Patient's skin is warm and dry. Rhythm is Cardiovascular: Edema is 1+ to left ankle, left foot, left toes, right ankle, right foot and right toes. Respiratory: Reports shortness of breath at rest Airway is patent Respiratory effort is even, unlabored, Respiratory pattern is regular, symmetrical, Breath sounds are clear bilaterally. GI: No signs and/or symptoms were reported involving the gastrointestinal system. : No signs and/or symptoms were reported regarding the genitourinary system. EENT: No signs and/or symptoms were reported regarding the EENT system. Derm: Skin is intact, is fragile, is thin, Skin is dry, Skin is pale, Skin temperature is cool. Musculoskeletal: Range of motion: intact in all extremities. 15:53 Reassessment: No changes from previously documented assessment. Patient and/or family mb9 updated on plan of care and expected duration. Pain level reassessed. Patient is alert, oriented x 3, equal unlabored respirations, skin warm/dry/pink. 17:00 Reassessment: No changes from previously documented assessment. Patient and/or family mb9 updated on plan of care and expected duration. Pain level reassessed. Patient is alert, oriented x 3, equal unlabored respirations, skin warm/dry/pink. 18:24 Reassessment: No changes from previously documented assessment. Patient and/or family mb9 updated on plan of care and expected duration. Pain level reassessed. Patient is alert, oriented x 3, equal unlabored respirations, skin warm/dry/pink. 19:25 Reassessment: Patient appears in no apparent distress at this time. No changes from cp4 previously documented assessment. Patient and/or family updated on plan of care and expected duration. Pain level reassessed. Patient is alert, oriented x 3, equal unlabored respirations, skin warm/dry/pink. 19:49 Reassessment: Attempted to call report. Nurse in shift report and wants a call back. cp4 20:21 Reassessment: Attempted to call report. No answer. cp4 Vital Signs: 11:59 BP 165 / 91; Pulse 77; Resp 16; Temp 97.5(TE); Weight 73.48 kg; Height 5 ft. 9 in. ; ss Pain 2/10; 14:49 BP 178 / 81; Pulse 60; Resp 18; Pulse Ox 100% on R/A; mb9 15:53 BP 164 / 79; Pulse 61; Resp 16; Pulse Ox 99% on R/A; mb9 16:54 BP 161 / 74; Pulse 62; Resp 18; Pulse Ox 100% on R/A; mb9 17:51 BP 179 / 89; Pulse 63; Resp 18; Pulse Ox 98% on R/A; mb9 18:24 BP 177 / 94; Pulse 60; Resp 18; Pulse Ox 100% on R/A; mb9 11:59 Body Mass Index 23.92 (73.48 kg, 175.26 cm) ss 11:59 Pain Scale: Adult ss ED Course: 11:35 Patient arrived in ED. cj3 11:44 Elisa Mueller MD is Attending Physician. gb1 12:02 Triage completed. ss 12:02 Arm band placed on left wrist. ss 12:56 EKG done, by field crop technical officer. reviewed by Elisa Mueller MD. ts3 12:56 Initial lab(s) drawn, by lab rep, sent to lab. Inserted saline lock: 24 gauge in right ts3 hand, using aseptic technique. Blood collected. Flushed with 10 mL NS. 14:01 Vera Mazariegos, FELIX is Primary Nurse. mb9 14:11 XRAY Chest (1 view) In Process Unspecified. EDMS 14:30 IV discontinued, intact, bleeding controlled, No redness/swelling at site. Pressure mb9 dressing applied. 14:50 Inserted saline lock: 24 gauge in left hand, using aseptic technique. Flushed with 10 mb9 mL NS. 14:51 Accessed peripheral vein via ultrasound, utilizing dynamic ultrasound technique using mb9 per hospital protocol. Clean \T\ dry. Dressing intact. Good blood return. Flushes easily. 20g right upper arm. 14:52 Fall risk band placed. Placed in gown. Bed in low position. Call light in reach. Side mb9 rails up X 1. Provided Education on: press call light if needing anything. Client placed on continuous cardiac and pulse oximetry monitoring. NIBP monitoring applied. library monitor on. 17:[address] [facility]. bd 17:58 No provider procedures requiring assistance completed. mb9 19:01 Report given to FELIX Eller. mb9 Administered Medications: 14:53 Drug: Furosemide IVP 80 mg IVP once; give over 2 minutes Route: IVP; Site: right upper mb9 arm; 16:13 Follow up: Response: No adverse reaction mb9 Medication: 14:52 VIS not applicable for this client. mb9 Output: 16:54 Urine: 350ml (Voided); Total: 350ml. mb9 Outcome: 17:17 ER care complete, transfer ordered by . isis 21:05 Patient left the ED. rv1 Signatures: Dispatcher [employer] EDMS Sabrina Turcios Shelby RN Vera Salcido RN RN mb9 Ashley Winkler rv1 Elisa Mueller MD MD gb1 Daphnie Briones cp4 Vickie Jules 3 Princess Smith 3
--- NOTE | 2024-12-12 17:18 | EDPHYS ---
Physician Documentation [facility] Name: Sweetie Rivera Age: 79 yrs Sex: Female : 1945 Arrival Date: 12/12/2024 Time: 11:28 Bed 5 Private MD: ED Physician Elisa Mueller HPI: 12/12 17:23 This 79 yrs old Female presents to ER via Ambulatory with complaints of Post gb1 Surgical Complications, Shortness Of Breath. 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 Patient had a surgery at the [facility] by colorectal surgeon Dr. Limon. She sees Dr. Vidales for cardiology care. She denies any chest pain she just feels a heaviness in the center of her chest and has been more shortness of breath and has noticed that her ankles are also swelling since the recent surgery.. Historical: - Allergies: 12:02 PENICILLINS; ss - PMHx: 12:02 Borderline Diabetes; Hypertensive disorder; mitral valve leak; ss - PSHx: 12:02 Carotid endarterectomy; Mitral valve replacement; pacemaker-September 2022 (v); Sigmoid ss colectomy (pacemaker-September 2022); - Immunization history:: Adult Immunizations up to date. - Infectious Disease History:: Denies. - Social history:: Smoking status: Patient denies any tobacco usage or history of. Exam: 17:23 Constitutional: This is a well developed, well nourished patient who is awake, alert, gb1 and in no acute distress. Head/Face: Normocephalic, atraumatic. Eyes: Pupils equal round and reactive to light, extra-ocular motions intact. Lids and lashes normal. Conjunctiva and sclera are non-icteric and not injected. Cornea within normal limits. Periorbital areas with no swelling, redness, or edema. ENT: Nares patent. No nasal discharge, no septal abnormalities noted. Tympanic membranes are normal and external auditory canals are clear. Oropharynx with no redness, swelling, or masses, exudates, or evidence of obstruction, uvula midline. Mucous membranes moist. Neck: Trachea midline, no thyromegaly or masses palpated, and no cervical lymphadenopathy. Supple, full range of motion without nuchal rigidity, or vertebral point tenderness. No Meningismus. Chest/axilla: Normal chest wall appearance and motion. Nontender with no deformity. No lesions are appreciated. Cardiovascular: Regular rate and rhythm with a normal S1 and S2. No gallops, murmurs, or rubs. Normal PMI, no JVD. No pulse deficits. Respiratory: Lungs have equal breath sounds bilaterally, clear to auscultation and percussion. No rales, rhonchi or wheezes noted. No increased work of breathing, no retractions or nasal flaring. Abdomen/GI: Soft, non-tender, with normal bowel sounds. No distension or tympany. No guarding or rebound. No evidence of tenderness throughout. Skin: Warm, dry with normal turgor. Normal color with no rashes, no lesions, and no evidence of cellulitis. MS/ Extremity: Pulses equal, no cyanosis. Neurovascular intact. Full, normal range of motion. 2+ pitting edema bilateral lower extremities Vital Signs: 11:59 BP 165 / 91; Pulse 77; Resp 16; Temp 97.5(TE); Weight 73.48 kg; Height 5 ft. 9 in. ; ss Pain 2/10; 14:49 BP 178 / 81; Pulse 60; Resp 18; Pulse Ox 100% on R/A; mb9 15:53 BP 164 / 79; Pulse 61; Resp 16; Pulse Ox 99% on R/A; mb9 16:54 BP 161 / 74; Pulse 62; Resp 18; Pulse Ox 100% on R/A; mb9 17:51 BP 179 / 89; Pulse 63; Resp 18; Pulse Ox 98% on R/A; mb9 18:24 BP 177 / 94; Pulse 60; Resp 18; Pulse Ox 100% on R/A; mb9 11:59 Body Mass Index 23.92 (73.48 kg, 175.26 cm) ss 11:59 Pain Scale: Adult ss MDM: 12:31 Medical Screening Exam initiated gb1 17:23 Data reviewed: vital signs, nurses notes, lab test result(s), EKG, radiologic studies, gb1 plain films. ED course: 79-year-old female status post partial colectomy recently now with signs of acute congestive heart failure with pulmonary edema. Patient does see Dr. Vidales and I did discuss the case with him her BNP is greatly elevated and she has bilateral pulmonary edema on chest x-ray today. Her abdomen seems soft and generally mildly tender. No rebounding or guarding on exam. I have made decision to transfer her down to the main hospital in case she did need evaluation by the colorectal surgery team I discussed this with Dr. Vidales prior to transferring the patient to [facility] in [place]. Patient also agrees with this plan of care.. 17:54 ED course: pt accepted by , at [facility] inpt tele. gb12/12 12:01 Order name: Magnesium gb 12/12 12:01 Order name: NT PRO-BNP 12/12 12:01 Order name: Troponin HS 12/12 13:03 Order name: Basic Metabolic Panel; Complete Time: 14:00 EDMS 12/12 13:03 Order name: Liver (Hepatic) Function; Complete Time: 14:00 EDMS 12/12 13:03 Order name: Troponin High Sensitivity; Complete Time: 14:00 EDMS 12/12 13:03 Order name: NT PRO-BNP; Complete Time: 14:00 EDMS 12/12 13:03 Order name: Magnesium; Complete Time: 14:00 EDMS 12/12 13:03 Order name: CBC with Automated Diff; Complete Time: 14:00 EDMS 12/12 13:03 Order name: Protime (+INR); Complete Time: 14:00 EDMS 12/12 12:01 Order name: XRAY Chest (1 view); Complete Time: 14:35 gb1 12/12 12:01 Order name: EKG; Complete Time: 12:02 gb1 12/12 12:01 Order name: Cardiac monitoring; Complete Time: 12:55 gb1 12/12 12:01 Order name: EKG - Nurse/Tech; Complete Time: 12:55 gb1 12/12 12:01 Order name: IV Saline Lock; Complete Time: 12:55 gb1 12/12 12:01 Order name: Labs collected and sent; Complete Time: 12:55 gb1 12/12 12:01 Order name: O2 Per Protocol; Complete Time: 12:55 gb1 12/12 12:01 Order name: O2 Sat Monitoring; Complete Time: 12:55 gb1 Administered Medications: 14:53 Drug: Furosemide IVP 80 mg IVP once; give over 2 minutes Route: IVP; Site: right upper mb9 arm; 16:13 Follow up: Response: No adverse reaction mb9 Disposition Summary: 12/12/24 17:17 Transfer Ordered Notes: Transfer Location: [facility] gb1 Reason: Higher level of care gb1 Condition: Stable gb1 Problem: new gb1 Symptoms: have worsened gb1 Accepting Physician: (12/12/24 21:05) rv1 Diagnosis - Acute systolic (congestive) heart failure gb1 - Acute pulmonary edema gb1 Forms: - Medication Reconciliation Form gb1 - SBAR form gb1 Signatures: Dispatcher [employer] EDMS Janna Strauss, RN RN ss Delilah, Vera Matthews RN RN mb9 Ashley Winkler rv1 Elisa Mueller MD MD gb1 Corrections: (The following items were deleted from the chart) 13:10 12:02 BASIC METABOLIC PANEL+C.LAB.BRZ ordered. EDMS EDMS 13:10 12:02 HEPATIC FUNCTION+C.LAB.BRZ ordered. EDMS EDMS 13:11 12:02 CBC+H.LAB.BRZ ordered. EDMS EDMS 13:11 12:02 PROTIME (+INR)+COAG.LAB.BRZ ordered. EDMS EDMS 18:01 17:17 Dr. marinelli gb1 21:05 18:01 gb1 rv1
[2024-12-12 21:20] VITALS: TEMP 97.5
[2024-12-12 21:26] VITALS: BP 177/94; O2SAT 100
== END 2024-12-12 21:05 | disposition short-term general hospital (02) ==
LOC: ER 11:28
DX: I50.21 Acute systolic (congestive) heart failure (principal); I10 Essential (primary) hypertension; Z95.0 Presence of cardiac pacemaker
CPT/HCPCS: 93005 ×2; 85025; 80048; 36415; 83735; 85610; 80076; 84484; 83880; 71045; 96374; 99285; J1938